=== PATIENT | female | born 1960 | race Two or more races ===

== ENCOUNTER 2016-07-18 | Inpatient (IN) | payer MEDICAID ==
[~2016-07-18] VITALS: Ht 160 cm; Wt 75.3 kg
--- NOTE | 2016-07-20 08:30 | NUR ---
Please see resident's previous account [id number] for all assessments and nurses notes. Originally admitted on 03/14/2014.
[2016-07-20] MEDS ORDERED: ALBUTEROL FS 2.5 MG/3 ML VIAL.NEB NEB SCH (09:09)
[2016-07-20] MEDS ORDERED: SERTRALINE HCL 25 MG TABLET GT SCH (09:09)
[2016-07-20] MEDS ORDERED: HYDROGEN PEROXIDE 480 ML BOTTLE TP PRN (09:09)
[2016-07-20] MEDS ORDERED: TUBERCULIN,PURIF.PROT.DERIV. 5 TU/0.1 ML VIAL ID SCH (09:09)
[2016-07-20] MEDS ORDERED: IPRATROPIUM NEB FS 0.5 MG/2.5 ML AMPUL.NEB IH PRN (09:09)
[2016-07-20] MEDS ORDERED: DEXTROSE 50%-WATER 50 ML DISP.SYRIN IV PRN (09:09)
[2016-07-20] MEDS ORDERED: INSULIN GLARGINE, 100 UNIT/ML CARTRIDGE SQ SCH (09:09)
[2016-07-20] MEDS ORDERED: IPRATROPIUM NEB FS 0.5 MG/2.5 ML AMPUL.NEB NEB SCH (09:09)
[2016-07-20] MEDS ORDERED: ALBUTEROL FS 2.5 MG/3 ML VIAL.NEB NEB PRN (09:09)
--- NOTE | 2016-07-20 11:11 | NUR ---
Please see resident's previous account [id number] for Social Service assessments, evaluations and notes.
[2016-07-20] MEDS: POLYVINYL ALCOHOL 15 ML BOTTLE EACHEYE SCH ×3 (12:00→23:55)
[2016-07-20 12:09] VITALS: BP 124/76
[2016-07-20] MEDS: FERROUS SULFATE - FOR SA ONLY 330 MG/7.5 ML UDC GT SCH ×2 (13:00→16:12)
[2016-07-20] MEDS: BACLOFEN 20MG TABLET GT SCH ×2 (13:00→16:09)
[2016-07-20] MEDS: ALBUTEROL FS 2.5 MG/3 ML VIAL.NEB NEB SCH ×2 (13:32→20:14)
[2016-07-20] MEDS: IPRATROPIUM NEB FS 0.5 MG/2.5 ML AMPUL.NEB NEB SCH ×2 (13:32→20:14)
[2016-07-20] MEDS: GLYTROL 1,000 ML BAG GT PRN (16:00)
[2016-07-20] MEDS: DOCUSATE SODIUM LIQ 100 MG/10 ML UDC GT SCH (16:11)
[2016-07-20] MEDS: GLYCOPYRROLATE 1 MG TABLET GT SCH (16:12)
[2016-07-20] MEDS: POTASSIUM CHLORIDE 20 MEQ/15 ML ML GT SCH (16:13)
[2016-07-20] MEDS: ASCORBIC ACID 500 MG TABLET GT SCH (16:14)
[2016-07-20] MEDS: BLOOD SUGAR DIAGNOSTIC 1 EACH STRIP IN SCH (18:10)
[2016-07-20] MEDS: INSULIN LISPRO/ASPART 100 UNIT/ML CARTRIDGE SQ PRN (18:11)
[2016-07-20 20:29] VITALS: BP 144/80
[2016-07-20] MEDS: LEVETIRACETAM SOL (5 ML) 100 MG/ML UDC GT SCH (21:26)
[2016-07-20] MEDS: HYDROGEN PEROXIDE 480 ML BOTTLE TP SCH (21:27)
[2016-07-20] MEDS: INSULIN GLARGINE, 100 UNIT/ML CARTRIDGE SQ SCH (21:27)
[2016-07-20] MEDS: SERTRALINE HCL 25 MG TABLET GT SCH (21:27)
[2016-07-20] MEDS: Z GUARD REMEDY 4 OZ OINT TP SCH (21:27)
[2016-07-21] MEDS: IPRATROPIUM NEB FS 0.5 MG/2.5 ML AMPUL.NEB NEB SCH ×4 (01:22→19:24)
[2016-07-21] MEDS: ALBUTEROL FS 2.5 MG/3 ML VIAL.NEB NEB SCH ×4 (01:22→19:24)
[2016-07-21] MEDS: ESOMEPRAZOLE MAG TRIHYDRATE 20 MG CAPSULE.DR GT SCH (06:19)
[2016-07-21] MEDS: POLYVINYL ALCOHOL 15 ML BOTTLE EACHEYE SCH ×4 (06:19→23:16)
[2016-07-21] MEDS: BLOOD SUGAR DIAGNOSTIC 1 EACH STRIP IN SCH ×2 (06:19→17:40)
[2016-07-21 08:15] VITALS: BP 111/62
[2016-07-21] MEDS: POTASSIUM CHLORIDE 20 MEQ/15 ML ML GT SCH ×2 (08:39→16:16)
[2016-07-21] MEDS: FERROUS SULFATE - FOR SA ONLY 330 MG/7.5 ML UDC GT SCH ×3 (08:39→16:16)
[2016-07-21] MEDS: GLYCOPYRROLATE 1 MG TABLET GT SCH ×2 (08:39→16:16)
[2016-07-21] MEDS: LEVETIRACETAM SOL (5 ML) 100 MG/ML UDC GT SCH ×2 (08:39→20:57)
[2016-07-21] MEDS: PYRIDOXINE 100 MG GT SCH (08:39)
[2016-07-21] MEDS: DOCUSATE SODIUM LIQ 100 MG/10 ML UDC GT SCH ×2 (08:39→16:16)
[2016-07-21] MEDS: BACLOFEN 20MG TABLET GT SCH ×3 (08:39→16:16)
[2016-07-21] MEDS: ISONIAZID (300 MG) 300 MG TABLET GT SCH (08:39)
[2016-07-21] MEDS: ASCORBIC ACID 500 MG TABLET GT SCH ×2 (08:39→16:17)
[2016-07-21] MEDS: MULTIVITAMINS,THERAGRAN 1 UDTAB TABLET GT SCH (08:39)
[2016-07-21] MEDS: Z GUARD REMEDY 4 OZ OINT TP SCH ×2 (08:40→20:57)
[2016-07-21] MEDS: HYDROGEN PEROXIDE 480 ML BOTTLE TP SCH ×2 (08:40→20:57)
[2016-07-21] MEDS: ACETAMINOPHEN 650 MG/20 ML UDC- FOR SA PATIENTS ONLY GT PRN (08:51)
[2016-07-21] MEDS: GLYTROL 1,000 ML BAG GT PRN (12:21)
[2016-07-21] MEDS: INSULIN LISPRO/ASPART 100 UNIT/ML CARTRIDGE SQ PRN (17:41)
[2016-07-21 20:09] VITALS: BP 117/84
[2016-07-21] MEDS: INSULIN GLARGINE, 100 UNIT/ML CARTRIDGE SQ SCH (20:58)
[2016-07-21] MEDS: SERTRALINE HCL 25 MG TABLET GT SCH (21:00)
[2016-07-22] MEDS: IPRATROPIUM NEB FS 0.5 MG/2.5 ML AMPUL.NEB NEB SCH ×4 (02:21→19:36)
[2016-07-22] MEDS: ALBUTEROL FS 2.5 MG/3 ML VIAL.NEB NEB SCH ×4 (02:21→19:36)
[2016-07-22] MEDS: GLYTROL 1,000 ML BAG GT PRN (03:24)
[2016-07-22] MEDS: ESOMEPRAZOLE MAG TRIHYDRATE 20 MG CAPSULE.DR GT SCH (05:14)
[2016-07-22] MEDS: BLOOD SUGAR DIAGNOSTIC 1 EACH STRIP IN SCH ×2 (05:14→17:24)
[2016-07-22] MEDS: POLYVINYL ALCOHOL 15 ML BOTTLE EACHEYE SCH ×3 (05:14→17:24)
[2016-07-22] MEDS: INSULIN LISPRO/ASPART 100 UNIT/ML CARTRIDGE SQ PRN (05:15)
[2016-07-22 07:54] VITALS: BP 115/65
[2016-07-22] MEDS: ISONIAZID (300 MG) 300 MG TABLET GT SCH (08:43)
[2016-07-22] MEDS: GLYCOPYRROLATE 1 MG TABLET GT SCH ×2 (08:43→16:41)
[2016-07-22] MEDS: DOCUSATE SODIUM LIQ 100 MG/10 ML UDC GT SCH ×2 (08:43→16:41)
[2016-07-22] MEDS: MULTIVITAMINS,THERAGRAN 1 UDTAB TABLET GT SCH (08:43)
[2016-07-22] MEDS: LEVETIRACETAM SOL (5 ML) 100 MG/ML UDC GT SCH ×2 (08:43→21:00)
[2016-07-22] MEDS: Z GUARD REMEDY 4 OZ OINT TP SCH ×2 (08:43→21:00)
[2016-07-22] MEDS: FERROUS SULFATE - FOR SA ONLY 330 MG/7.5 ML UDC GT SCH ×3 (08:43→16:41)
[2016-07-22] MEDS: HYDROGEN PEROXIDE 480 ML BOTTLE TP SCH ×2 (08:43→21:00)
[2016-07-22] MEDS: POTASSIUM CHLORIDE 20 MEQ/15 ML ML GT SCH ×2 (08:43→16:41)
[2016-07-22] MEDS: PYRIDOXINE 100 MG GT SCH (08:43)
[2016-07-22] MEDS: BACLOFEN 20MG TABLET GT SCH ×3 (08:43→16:41)
[2016-07-22] MEDS: ASCORBIC ACID 500 MG TABLET GT SCH ×2 (08:43→16:41)
--- NOTE | 2016-07-22 20:28 | NUR ---
Pt seen by Mya Rodgers ROLL MECHANIC,no new order.
[2016-07-22] MEDS: INSULIN GLARGINE, 100 UNIT/ML CARTRIDGE SQ SCH (21:00)
[2016-07-22] MEDS: SERTRALINE HCL 25 MG TABLET GT SCH (22:00)
[2016-07-23] MEDS: POLYVINYL ALCOHOL 15 ML BOTTLE EACHEYE SCH ×5 (00:24→23:36)
[2016-07-23] MEDS: GLYTROL 1,000 ML BAG GT PRN (00:25)
[2016-07-23] MEDS: IPRATROPIUM NEB FS 0.5 MG/2.5 ML AMPUL.NEB NEB SCH ×4 (01:35→19:15)
[2016-07-23] MEDS: ALBUTEROL FS 2.5 MG/3 ML VIAL.NEB NEB SCH ×4 (01:35→19:15)
[2016-07-23] MEDS: BLOOD SUGAR DIAGNOSTIC 1 EACH STRIP IN SCH ×2 (05:12→17:26)
[2016-07-23] MEDS: INSULIN LISPRO/ASPART 100 UNIT/ML CARTRIDGE SQ PRN (05:12)
[2016-07-23] MEDS: ESOMEPRAZOLE MAG TRIHYDRATE 20 MG CAPSULE.DR GT SCH (05:12)
[2016-07-23 07:48] VITALS: BP 122/73
[2016-07-23] MEDS: BACLOFEN 20MG TABLET GT SCH ×3 (08:33→17:23)
[2016-07-23] MEDS: PYRIDOXINE 100 MG GT SCH (08:33)
[2016-07-23] MEDS: Z GUARD REMEDY 4 OZ OINT TP SCH ×2 (08:33→21:00)
[2016-07-23] MEDS: ISONIAZID (300 MG) 300 MG TABLET GT SCH (08:33)
[2016-07-23] MEDS: POTASSIUM CHLORIDE 20 MEQ/15 ML ML GT SCH ×2 (08:33→17:25)
[2016-07-23] MEDS: LEVETIRACETAM SOL (5 ML) 100 MG/ML UDC GT SCH ×2 (08:33→21:00)
[2016-07-23] MEDS: HYDROGEN PEROXIDE 480 ML BOTTLE TP SCH ×2 (08:33→21:00)
[2016-07-23] MEDS: DOCUSATE SODIUM LIQ 100 MG/10 ML UDC GT SCH ×2 (08:33→17:25)
[2016-07-23] MEDS: MULTIVITAMINS,THERAGRAN 1 UDTAB TABLET GT SCH (08:33)
[2016-07-23] MEDS: GLYCOPYRROLATE 1 MG TABLET GT SCH ×2 (08:33→17:25)
[2016-07-23] MEDS: ASCORBIC ACID 500 MG TABLET GT SCH ×2 (08:33→17:25)
[2016-07-23] MEDS: FERROUS SULFATE - FOR SA ONLY 330 MG/7.5 ML UDC GT SCH ×3 (08:33→17:25)
[2016-07-23] MEDS: ACETAMINOPHEN 650 MG/20 ML UDC- FOR SA PATIENTS ONLY GT PRN ×2 (11:18→17:58)
[2016-07-23 19:40] VITALS: BP 126/72
[2016-07-23] MEDS: INSULIN GLARGINE, 100 UNIT/ML CARTRIDGE SQ SCH (21:00)
[2016-07-23] MEDS: SERTRALINE HCL 25 MG TABLET GT SCH (22:49)
[2016-07-24] MEDS: GLYTROL 1,000 ML BAG GT PRN (00:03)
[2016-07-24] MEDS: IPRATROPIUM NEB FS 0.5 MG/2.5 ML AMPUL.NEB NEB SCH ×4 (02:21→19:16)
[2016-07-24] MEDS: ALBUTEROL FS 2.5 MG/3 ML VIAL.NEB NEB SCH ×4 (02:22→19:16)
[2016-07-24] MEDS: BLOOD SUGAR DIAGNOSTIC 1 EACH STRIP IN SCH ×2 (05:42→17:48)
[2016-07-24] MEDS: POLYVINYL ALCOHOL 15 ML BOTTLE EACHEYE SCH ×4 (05:42→23:57)
[2016-07-24] MEDS: ESOMEPRAZOLE MAG TRIHYDRATE 20 MG CAPSULE.DR GT SCH (05:42)
[2016-07-24] MEDS: INSULIN LISPRO/ASPART 100 UNIT/ML CARTRIDGE SQ PRN (05:43)
[2016-07-24 07:52] VITALS: BP 123/71
[2016-07-24] MEDS: LEVETIRACETAM SOL (5 ML) 100 MG/ML UDC GT SCH ×2 (08:29→21:18)
[2016-07-24] MEDS: POTASSIUM CHLORIDE 20 MEQ/15 ML ML GT SCH ×2 (08:29→17:33)
[2016-07-24] MEDS: GLYCOPYRROLATE 1 MG TABLET GT SCH ×2 (08:29→17:33)
[2016-07-24] MEDS: DOCUSATE SODIUM LIQ 100 MG/10 ML UDC GT SCH ×2 (08:29→17:33)
[2016-07-24] MEDS: MULTIVITAMINS,THERAGRAN 1 UDTAB TABLET GT SCH (08:29)
[2016-07-24] MEDS: FERROUS SULFATE - FOR SA ONLY 330 MG/7.5 ML UDC GT SCH ×3 (08:29→17:33)
[2016-07-24] MEDS: BACLOFEN 20MG TABLET GT SCH ×3 (08:29→17:33)
[2016-07-24] MEDS: ISONIAZID (300 MG) 300 MG TABLET GT SCH (08:29)
[2016-07-24] MEDS: PYRIDOXINE 100 MG GT SCH (08:29)
[2016-07-24] MEDS: ASCORBIC ACID 500 MG TABLET GT SCH ×2 (08:29→17:33)
[2016-07-24] MEDS: HYDROGEN PEROXIDE 480 ML BOTTLE TP SCH ×2 (09:00→21:19)
[2016-07-24] MEDS: Z GUARD REMEDY 4 OZ OINT TP SCH ×2 (09:00→21:19)
[2016-07-24 19:47] VITALS: BP 110/79
[2016-07-24] MEDS: SERTRALINE HCL 25 MG TABLET GT SCH (21:19)
[2016-07-24] MEDS: INSULIN GLARGINE, 100 UNIT/ML CARTRIDGE SQ SCH (21:19)
[2016-07-25] MEDS: ALBUTEROL FS 2.5 MG/3 ML VIAL.NEB NEB SCH ×4 (02:07→20:05)
[2016-07-25] MEDS: IPRATROPIUM NEB FS 0.5 MG/2.5 ML AMPUL.NEB NEB SCH ×4 (02:07→20:05)
[2016-07-25] MEDS: BLOOD SUGAR DIAGNOSTIC 1 EACH STRIP IN SCH ×2 (05:25→17:43)
[2016-07-25] MEDS: POLYVINYL ALCOHOL 15 ML BOTTLE EACHEYE SCH ×3 (05:25→17:43)
[2016-07-25] MEDS: INSULIN LISPRO/ASPART 100 UNIT/ML CARTRIDGE SQ PRN ×2 (05:25→17:43)
[2016-07-25] MEDS: ESOMEPRAZOLE MAG TRIHYDRATE 20 MG CAPSULE.DR GT SCH (05:25)
[2016-07-25 08:10] VITALS: BP 107/69
[2016-07-25] MEDS: BACLOFEN 20MG TABLET GT SCH ×3 (08:36→17:37)
[2016-07-25] MEDS: DOCUSATE SODIUM LIQ 100 MG/10 ML UDC GT SCH ×2 (08:37→17:37)
[2016-07-25] MEDS: FERROUS SULFATE - FOR SA ONLY 330 MG/7.5 ML UDC GT SCH ×3 (08:38→17:40)
[2016-07-25] MEDS: GLYCOPYRROLATE 1 MG TABLET GT SCH ×2 (08:38→17:40)
[2016-07-25] MEDS: ISONIAZID (300 MG) 300 MG TABLET GT SCH (08:38)
[2016-07-25] MEDS: LEVETIRACETAM SOL (5 ML) 100 MG/ML UDC GT SCH ×2 (08:38→21:22)
[2016-07-25] MEDS: MULTIVITAMINS,THERAGRAN 1 UDTAB TABLET GT SCH (08:39)
[2016-07-25] MEDS: ASCORBIC ACID 500 MG TABLET GT SCH ×2 (08:39→17:42)
[2016-07-25] MEDS: POTASSIUM CHLORIDE 20 MEQ/15 ML ML GT SCH ×2 (08:39→17:42)
[2016-07-25] MEDS: PYRIDOXINE 100 MG GT SCH (08:42)
[2016-07-25] MEDS: HYDROGEN PEROXIDE 480 ML BOTTLE TP SCH ×2 (09:00→21:23)
[2016-07-25] MEDS: Z GUARD REMEDY 4 OZ OINT TP SCH ×2 (09:00→21:23)
[2016-07-25] MEDS: GLYTROL 1,000 ML BAG GT PRN (13:29)
[2016-07-25 19:52] VITALS: BP 109/77
[2016-07-25] MEDS: INSULIN GLARGINE, 100 UNIT/ML CARTRIDGE SQ SCH (21:23)
[2016-07-25] MEDS: SERTRALINE HCL 25 MG TABLET GT SCH (21:23)
[2016-07-26] MEDS: POLYVINYL ALCOHOL 15 ML BOTTLE EACHEYE SCH ×5 (00:08→23:17)
[2016-07-26] MEDS: IPRATROPIUM NEB FS 0.5 MG/2.5 ML AMPUL.NEB NEB SCH ×4 (02:20→19:30)
[2016-07-26] MEDS: ALBUTEROL FS 2.5 MG/3 ML VIAL.NEB NEB SCH ×4 (02:20→19:30)
[2016-07-26] MEDS: ESOMEPRAZOLE MAG TRIHYDRATE 20 MG CAPSULE.DR GT SCH (06:04)
[2016-07-26] MEDS: BLOOD SUGAR DIAGNOSTIC 1 EACH STRIP IN SCH ×2 (06:27→17:13)
[2016-07-26] MEDS: GLYTROL 1,000 ML BAG GT PRN (06:36)
[2016-07-26 08:04] VITALS: BP 115/87
[2016-07-26] MEDS: BACLOFEN 20MG TABLET GT SCH ×3 (08:35→16:59)
[2016-07-26] MEDS: PYRIDOXINE 100 MG GT SCH (08:36)
[2016-07-26] MEDS: GLYCOPYRROLATE 1 MG TABLET GT SCH ×2 (08:36→16:59)
[2016-07-26] MEDS: ISONIAZID (300 MG) 300 MG TABLET GT SCH (08:36)
[2016-07-26] MEDS: FERROUS SULFATE - FOR SA ONLY 330 MG/7.5 ML UDC GT SCH ×3 (08:36→16:59)
[2016-07-26] MEDS: POTASSIUM CHLORIDE 20 MEQ/15 ML ML GT SCH ×2 (08:36→16:59)
[2016-07-26] MEDS: DOCUSATE SODIUM LIQ 100 MG/10 ML UDC GT SCH ×2 (08:36→16:59)
[2016-07-26] MEDS: ASCORBIC ACID 500 MG TABLET GT SCH ×2 (08:36→16:59)
[2016-07-26] MEDS: MULTIVITAMINS,THERAGRAN 1 UDTAB TABLET GT SCH (08:36)
[2016-07-26] MEDS: LEVETIRACETAM SOL (5 ML) 100 MG/ML UDC GT SCH ×2 (08:36→21:20)
[2016-07-26] MEDS: Z GUARD REMEDY 4 OZ OINT TP SCH ×2 (10:45→21:21)
[2016-07-26] MEDS: HYDROGEN PEROXIDE 480 ML BOTTLE TP SCH ×2 (10:45→21:20)
[2016-07-26] MEDS: INSULIN LISPRO/ASPART 100 UNIT/ML CARTRIDGE SQ PRN (17:36)
--- NOTE | 2016-07-26 18:51 | NUR ---
Head circumference measured - 57.5cm.
[2016-07-26 20:46] VITALS: BP 121/76
[2016-07-26] MEDS: INSULIN GLARGINE, 100 UNIT/ML CARTRIDGE SQ SCH (21:20)
[2016-07-26] MEDS: SERTRALINE HCL 25 MG TABLET GT SCH (21:21)
[2016-07-27] MEDS: IPRATROPIUM NEB FS 0.5 MG/2.5 ML AMPUL.NEB NEB SCH ×4 (00:31→19:30)
[2016-07-27] MEDS: ALBUTEROL FS 2.5 MG/3 ML VIAL.NEB NEB SCH ×4 (00:31→19:30)
[2016-07-27] MEDS: POLYVINYL ALCOHOL 15 ML BOTTLE EACHEYE SCH ×4 (05:24→23:53)
[2016-07-27] MEDS: ESOMEPRAZOLE MAG TRIHYDRATE 20 MG CAPSULE.DR GT SCH (05:24)
[2016-07-27] MEDS: BLOOD SUGAR DIAGNOSTIC 1 EACH STRIP IN SCH ×2 (06:01→17:43)
[2016-07-27 07:45] VITALS: BP 129/81
[2016-07-27] MEDS: MULTIVITAMINS,THERAGRAN 1 UDTAB TABLET GT SCH (08:36)
[2016-07-27] MEDS: PYRIDOXINE 100 MG GT SCH (08:36)
[2016-07-27] MEDS: ASCORBIC ACID 500 MG TABLET GT SCH ×2 (08:36→16:49)
[2016-07-27] MEDS: FERROUS SULFATE - FOR SA ONLY 330 MG/7.5 ML UDC GT SCH ×3 (08:36→16:49)
[2016-07-27] MEDS: POTASSIUM CHLORIDE 20 MEQ/15 ML ML GT SCH ×2 (08:36→16:49)
[2016-07-27] MEDS: LEVETIRACETAM SOL (5 ML) 100 MG/ML UDC GT SCH ×2 (08:36→20:46)
[2016-07-27] MEDS: DOCUSATE SODIUM LIQ 100 MG/10 ML UDC GT SCH ×2 (08:36→16:49)
[2016-07-27] MEDS: ISONIAZID (300 MG) 300 MG TABLET GT SCH (08:36)
[2016-07-27] MEDS: BACLOFEN 20MG TABLET GT SCH ×3 (08:36→16:49)
[2016-07-27] MEDS: GLYCOPYRROLATE 1 MG TABLET GT SCH ×2 (08:36→16:49)
[2016-07-27] MEDS: HYDROGEN PEROXIDE 480 ML BOTTLE TP SCH ×2 (11:30→20:47)
[2016-07-27] MEDS: Z GUARD REMEDY 4 OZ OINT TP SCH ×2 (11:30→20:47)
[2016-07-27 20:10] VITALS: BP 130/75
[2016-07-27] MEDS: INSULIN GLARGINE, 100 UNIT/ML CARTRIDGE SQ SCH (20:47)
[2016-07-27] MEDS: SERTRALINE HCL 25 MG TABLET GT SCH (22:20)
[2016-07-27] MEDS: GLYTROL 1,000 ML BAG GT PRN (22:24)
[2016-07-28] MEDS: IPRATROPIUM NEB FS 0.5 MG/2.5 ML AMPUL.NEB NEB SCH ×4 (02:20→20:25)
[2016-07-28] MEDS: ALBUTEROL FS 2.5 MG/3 ML VIAL.NEB NEB SCH ×4 (02:20→20:25)
[2016-07-28] MEDS: ESOMEPRAZOLE MAG TRIHYDRATE 20 MG CAPSULE.DR GT SCH (05:24)
[2016-07-28] MEDS: POLYVINYL ALCOHOL 15 ML BOTTLE EACHEYE SCH ×4 (05:24→23:19)
[2016-07-28] MEDS: BLOOD SUGAR DIAGNOSTIC 1 EACH STRIP IN SCH ×2 (06:05→17:07)
[2016-07-28 07:41] VITALS: BP 108/68
--- NOTE | 2016-07-28 09:08 | NUR ---
Resident was seen by Caitlyn for a haircut.
[2016-07-28] MEDS: POTASSIUM CHLORIDE 20 MEQ/15 ML ML GT SCH ×2 (09:15→17:07)
[2016-07-28] MEDS: DOCUSATE SODIUM LIQ 100 MG/10 ML UDC GT SCH ×2 (09:15→17:07)
[2016-07-28] MEDS: FERROUS SULFATE - FOR SA ONLY 330 MG/7.5 ML UDC GT SCH ×3 (09:15→17:07)
[2016-07-28] MEDS: PYRIDOXINE 100 MG GT SCH (09:15)
[2016-07-28] MEDS: LEVETIRACETAM SOL (5 ML) 100 MG/ML UDC GT SCH ×2 (09:15→21:11)
[2016-07-28] MEDS: GLYCOPYRROLATE 1 MG TABLET GT SCH ×2 (09:15→17:07)
[2016-07-28] MEDS: ISONIAZID (300 MG) 300 MG TABLET GT SCH (09:15)
[2016-07-28] MEDS: BACLOFEN 20MG TABLET GT SCH ×3 (09:15→17:07)
[2016-07-28] MEDS: MULTIVITAMINS,THERAGRAN 1 UDTAB TABLET GT SCH (09:15)
[2016-07-28] MEDS: HYDROGEN PEROXIDE 480 ML BOTTLE TP SCH ×2 (09:17→21:12)
[2016-07-28] MEDS: ASCORBIC ACID 500 MG TABLET GT SCH ×2 (09:17→17:07)
[2016-07-28] MEDS: ACETAMINOPHEN 650 MG/20 ML UDC- FOR SA PATIENTS ONLY GT PRN (09:17)
[2016-07-28] MEDS: Z GUARD REMEDY 4 OZ OINT TP SCH ×2 (09:17→21:12)
--- NOTE | 2016-07-28 14:00 | NUR ---
Seen and examined by Mya Rodgers NP, no new order given.
[2016-07-28] MEDS: GLYTROL 1,000 ML BAG GT PRN (17:07)
[2016-07-28] MEDS: INSULIN LISPRO/ASPART 100 UNIT/ML CARTRIDGE SQ PRN (17:53)
[2016-07-28 19:57] VITALS: BP 117/66
[2016-07-28] MEDS: INSULIN GLARGINE, 100 UNIT/ML CARTRIDGE SQ SCH (21:12)
[2016-07-28] MEDS: SERTRALINE HCL 25 MG TABLET GT SCH (21:12)
[2016-07-29] MEDS: ALBUTEROL FS 2.5 MG/3 ML VIAL.NEB NEB SCH ×4 (01:07→19:26)
[2016-07-29] MEDS: IPRATROPIUM NEB FS 0.5 MG/2.5 ML AMPUL.NEB NEB SCH ×4 (01:07→19:26)
[2016-07-29] MEDS: ESOMEPRAZOLE MAG TRIHYDRATE 20 MG CAPSULE.DR GT SCH (05:49)
[2016-07-29] MEDS: BLOOD SUGAR DIAGNOSTIC 1 EACH STRIP IN SCH ×2 (05:49→17:20)
[2016-07-29] MEDS: POLYVINYL ALCOHOL 15 ML BOTTLE EACHEYE SCH ×4 (05:49→23:26)
[2016-07-29 07:40] VITALS: BP 126/81
[2016-07-29] MEDS: BACLOFEN 20MG TABLET GT SCH ×3 (08:04→16:26)
[2016-07-29] MEDS: FERROUS SULFATE - FOR SA ONLY 330 MG/7.5 ML UDC GT SCH ×3 (08:04→16:26)
[2016-07-29] MEDS: DOCUSATE SODIUM LIQ 100 MG/10 ML UDC GT SCH ×2 (08:04→16:26)
[2016-07-29] MEDS: GLYCOPYRROLATE 1 MG TABLET GT SCH ×2 (08:04→16:26)
[2016-07-29] MEDS: PYRIDOXINE 100 MG GT SCH (08:07)
[2016-07-29] MEDS: ISONIAZID (300 MG) 300 MG TABLET GT SCH (08:07)
[2016-07-29] MEDS: MULTIVITAMINS,THERAGRAN 1 UDTAB TABLET GT SCH (08:08)
[2016-07-29] MEDS: HYDROGEN PEROXIDE 480 ML BOTTLE TP SCH ×2 (08:08→21:00)
[2016-07-29] MEDS: LEVETIRACETAM SOL (5 ML) 100 MG/ML UDC GT SCH ×2 (08:08→21:00)
[2016-07-29] MEDS: Z GUARD REMEDY 4 OZ OINT TP SCH ×2 (08:08→21:00)
[2016-07-29] MEDS: POTASSIUM CHLORIDE 20 MEQ/15 ML ML GT SCH ×2 (08:08→16:26)
[2016-07-29] MEDS: ASCORBIC ACID 500 MG TABLET GT SCH ×2 (08:08→16:26)
[2016-07-29] MEDS: GLYTROL 1,000 ML BAG GT PRN (11:20)
[2016-07-29] MEDS: INSULIN LISPRO/ASPART 100 UNIT/ML CARTRIDGE SQ PRN (17:23)
[2016-07-29] MEDS: INSULIN GLARGINE, 100 UNIT/ML CARTRIDGE SQ SCH (21:00)
[2016-07-29 21:15] VITALS: BP 106/80
[2016-07-29] MEDS: SERTRALINE HCL 25 MG TABLET GT SCH (22:00)
[2016-07-30] MEDS: ALBUTEROL FS 2.5 MG/3 ML VIAL.NEB NEB SCH ×4 (00:57→19:30)
[2016-07-30] MEDS: IPRATROPIUM NEB FS 0.5 MG/2.5 ML AMPUL.NEB NEB SCH ×4 (00:57→19:30)
[2016-07-30] MEDS: BLOOD SUGAR DIAGNOSTIC 1 EACH STRIP IN SCH ×2 (05:33→17:10)
[2016-07-30] MEDS: INSULIN LISPRO/ASPART 100 UNIT/ML CARTRIDGE SQ PRN ×2 (05:33→17:11)
[2016-07-30] MEDS: ESOMEPRAZOLE MAG TRIHYDRATE 20 MG CAPSULE.DR GT SCH (05:33)
[2016-07-30] MEDS: POLYVINYL ALCOHOL 15 ML BOTTLE EACHEYE SCH ×4 (05:33→23:17)
[2016-07-30] MEDS: GLYTROL 1,000 ML BAG GT PRN ×2 (06:45→23:17)
[2016-07-30 07:29] VITALS: BP 120/82
[2016-07-30] MEDS: BACLOFEN 20MG TABLET GT SCH ×3 (08:22→16:59)
[2016-07-30] MEDS: Z GUARD REMEDY 4 OZ OINT TP SCH ×2 (08:22→21:17)
[2016-07-30] MEDS: ISONIAZID (300 MG) 300 MG TABLET GT SCH (08:22)
[2016-07-30] MEDS: MULTIVITAMINS,THERAGRAN 1 UDTAB TABLET GT SCH (08:22)
[2016-07-30] MEDS: GLYCOPYRROLATE 1 MG TABLET GT SCH ×2 (08:22→16:59)
[2016-07-30] MEDS: POTASSIUM CHLORIDE 20 MEQ/15 ML ML GT SCH ×2 (08:22→16:59)
[2016-07-30] MEDS: FERROUS SULFATE - FOR SA ONLY 330 MG/7.5 ML UDC GT SCH ×3 (08:22→16:59)
[2016-07-30] MEDS: ASCORBIC ACID 500 MG TABLET GT SCH ×2 (08:22→16:59)
[2016-07-30] MEDS: LEVETIRACETAM SOL (5 ML) 100 MG/ML UDC GT SCH ×2 (08:22→21:17)
[2016-07-30] MEDS: DOCUSATE SODIUM LIQ 100 MG/10 ML UDC GT SCH ×2 (08:22→16:59)
[2016-07-30] MEDS: PYRIDOXINE 100 MG GT SCH (08:22)
[2016-07-30] MEDS: HYDROGEN PEROXIDE 480 ML BOTTLE TP SCH ×2 (08:22→21:17)
[2016-07-30] MEDS: ACETAMINOPHEN 650 MG/20 ML UDC- FOR SA PATIENTS ONLY GT PRN (08:24)
--- NOTE | 2016-07-30 14:00 | NUR ---
INTERDISCIPLINARY TEAM CONFERENCE (IDT) was held today. Resident's sister unable to attend. Dr. Alvarez and the interdisciplinary team reviewed the current plan of care in detail. New orders were reviewed. No changes were noted and resident remains stable.
[2016-07-30 21:07] VITALS: BP 112/66
[2016-07-30] MEDS: INSULIN GLARGINE, 100 UNIT/ML CARTRIDGE SQ SCH (21:17)
[2016-07-30] MEDS: SERTRALINE HCL 25 MG TABLET GT SCH (21:17)
[2016-07-31] MEDS: IPRATROPIUM NEB FS 0.5 MG/2.5 ML AMPUL.NEB NEB SCH ×4 (02:00→19:08)
[2016-07-31] MEDS: ALBUTEROL FS 2.5 MG/3 ML VIAL.NEB NEB SCH ×4 (02:00→19:08)
[2016-07-31] MEDS: POLYVINYL ALCOHOL 15 ML BOTTLE EACHEYE SCH ×4 (05:27→23:24)
[2016-07-31] MEDS: ESOMEPRAZOLE MAG TRIHYDRATE 20 MG CAPSULE.DR GT SCH (05:27)
[2016-07-31] MEDS: BLOOD SUGAR DIAGNOSTIC 1 EACH STRIP IN SCH ×2 (05:27→17:19)
[2016-07-31] MEDS: INSULIN LISPRO/ASPART 100 UNIT/ML CARTRIDGE SQ PRN ×2 (05:28→17:19)
[2016-07-31 07:54] VITALS: BP 121/83
[2016-07-31] MEDS: BACLOFEN 20MG TABLET GT SCH ×3 (09:06→17:18)
[2016-07-31] MEDS: DOCUSATE SODIUM LIQ 100 MG/10 ML UDC GT SCH ×2 (09:06→17:18)
[2016-07-31] MEDS: FERROUS SULFATE - FOR SA ONLY 330 MG/7.5 ML UDC GT SCH ×3 (09:06→17:18)
[2016-07-31] MEDS: ASCORBIC ACID 500 MG TABLET GT SCH ×2 (09:07→17:19)
[2016-07-31] MEDS: HYDROGEN PEROXIDE 480 ML BOTTLE TP SCH ×2 (09:07→21:03)
[2016-07-31] MEDS: MULTIVITAMINS,THERAGRAN 1 UDTAB TABLET GT SCH (09:07)
[2016-07-31] MEDS: POTASSIUM CHLORIDE 20 MEQ/15 ML ML GT SCH ×2 (09:07→17:19)
[2016-07-31] MEDS: Z GUARD REMEDY 4 OZ OINT TP SCH ×2 (09:07→21:03)
[2016-07-31] MEDS: GLYCOPYRROLATE 1 MG TABLET GT SCH ×2 (09:07→17:19)
[2016-07-31] MEDS: ISONIAZID (300 MG) 300 MG TABLET GT SCH (09:07)
[2016-07-31] MEDS: LEVETIRACETAM SOL (5 ML) 100 MG/ML UDC GT SCH ×2 (09:07→21:02)
[2016-07-31] MEDS: PYRIDOXINE 100 MG GT SCH (09:07)
[2016-07-31] MEDS: ACETAMINOPHEN 650 MG/20 ML UDC- FOR SA PATIENTS ONLY GT PRN (09:08)
[2016-07-31] MEDS: GLYTROL 1,000 ML BAG GT PRN (17:20)
[2016-07-31 19:57] VITALS: BP 103/59
[2016-07-31] MEDS: INSULIN GLARGINE, 100 UNIT/ML CARTRIDGE SQ SCH (21:03)
[2016-07-31] MEDS: SERTRALINE HCL 25 MG TABLET GT SCH (21:03)
[2016-07-31] MEDS: POLYETHYLENE GLYCOL 3350 17 GM POWD.PACK GT PRN (21:04)
[2016-08-01] MEDS: ALBUTEROL FS 2.5 MG/3 ML VIAL.NEB NEB SCH ×4 (01:17→19:00)
[2016-08-01] MEDS: IPRATROPIUM NEB FS 0.5 MG/2.5 ML AMPUL.NEB NEB SCH ×4 (01:17→19:00)
[2016-08-01] MEDS: ESOMEPRAZOLE MAG TRIHYDRATE 20 MG CAPSULE.DR GT SCH (05:22)
[2016-08-01] MEDS: BLOOD SUGAR DIAGNOSTIC 1 EACH STRIP IN SCH ×2 (05:22→17:21)
[2016-08-01] MEDS: POLYVINYL ALCOHOL 15 ML BOTTLE EACHEYE SCH ×3 (05:22→17:20)
[2016-08-01] MEDS: INSULIN LISPRO/ASPART 100 UNIT/ML CARTRIDGE SQ PRN (05:22)
[2016-08-01 08:16] VITALS: BP 110/78
[2016-08-01] MEDS: POTASSIUM CHLORIDE 20 MEQ/15 ML ML GT SCH ×2 (09:31→17:20)
[2016-08-01] MEDS: BACLOFEN 20MG TABLET GT SCH ×3 (09:31→17:20)
[2016-08-01] MEDS: Z GUARD REMEDY 4 OZ OINT TP SCH ×2 (09:31→20:35)
[2016-08-01] MEDS: DOCUSATE SODIUM LIQ 100 MG/10 ML UDC GT SCH ×2 (09:31→17:20)
[2016-08-01] MEDS: HYDROGEN PEROXIDE 480 ML BOTTLE TP SCH ×2 (09:31→20:35)
[2016-08-01] MEDS: MULTIVITAMINS,THERAGRAN 1 UDTAB TABLET GT SCH (09:31)
[2016-08-01] MEDS: GLYCOPYRROLATE 1 MG TABLET GT SCH ×2 (09:31→17:20)
[2016-08-01] MEDS: FERROUS SULFATE - FOR SA ONLY 330 MG/7.5 ML UDC GT SCH ×3 (09:31→17:20)
[2016-08-01] MEDS: ISONIAZID (300 MG) 300 MG TABLET GT SCH (09:31)
[2016-08-01] MEDS: LEVETIRACETAM SOL (5 ML) 100 MG/ML UDC GT SCH ×2 (09:31→20:33)
[2016-08-01] MEDS: ASCORBIC ACID 500 MG TABLET GT SCH ×2 (09:31→17:20)
[2016-08-01] MEDS: PYRIDOXINE 100 MG GT SCH (09:31)
[2016-08-01 19:53] VITALS: BP 117/67
[2016-08-01] MEDS: INSULIN GLARGINE, 100 UNIT/ML CARTRIDGE SQ SCH (20:35)
[2016-08-01] MEDS: SERTRALINE HCL 25 MG TABLET GT SCH (21:01)
[2016-08-02] MEDS: ALBUTEROL FS 2.5 MG/3 ML VIAL.NEB NEB SCH ×4 (00:31→18:55)
[2016-08-02] MEDS: IPRATROPIUM NEB FS 0.5 MG/2.5 ML AMPUL.NEB NEB SCH ×4 (00:31→18:55)
[2016-08-02] MEDS: BLOOD SUGAR DIAGNOSTIC 1 EACH STRIP IN SCH ×2 (05:37→17:59)
[2016-08-02] MEDS: ESOMEPRAZOLE MAG TRIHYDRATE 20 MG CAPSULE.DR GT SCH (05:37)
[2016-08-02] MEDS: POLYVINYL ALCOHOL 15 ML BOTTLE EACHEYE SCH ×4 (05:37→17:59)
[2016-08-02] MEDS: INSULIN LISPRO/ASPART 100 UNIT/ML CARTRIDGE SQ PRN ×2 (05:38→05:44)
[2016-08-02] MEDS: GLYTROL 1,000 ML BAG GT PRN ×2 (05:46→21:38)
[2016-08-02 07:31] LABS: BILIRUBIN,TOTAL 0.1 mg/dL (0.2-1.0); TOTAL PROTEIN, SERUM 7.4 g/dL (6.4-8.2)
[2016-08-02 08:20] VITALS: BP 103/76
[2016-08-02] MEDS: BACLOFEN 20MG TABLET GT SCH ×3 (09:29→17:59)
[2016-08-02] MEDS: PYRIDOXINE 100 MG GT SCH (09:29)
[2016-08-02] MEDS: FERROUS SULFATE - FOR SA ONLY 330 MG/7.5 ML UDC GT SCH ×3 (09:29→17:59)
[2016-08-02] MEDS: GLYCOPYRROLATE 1 MG TABLET GT SCH ×2 (09:29→17:59)
[2016-08-02] MEDS: DOCUSATE SODIUM LIQ 100 MG/10 ML UDC GT SCH ×2 (09:29→17:59)
[2016-08-02] MEDS: POTASSIUM CHLORIDE 20 MEQ/15 ML ML GT SCH ×2 (09:30→17:59)
[2016-08-02] MEDS: ISONIAZID (300 MG) 300 MG TABLET GT SCH (09:30)
[2016-08-02] MEDS: MULTIVITAMINS,THERAGRAN 1 UDTAB TABLET GT SCH (09:30)
[2016-08-02] MEDS: Z GUARD REMEDY 4 OZ OINT TP SCH ×2 (09:30→20:16)
[2016-08-02] MEDS: LEVETIRACETAM SOL (5 ML) 100 MG/ML UDC GT SCH ×2 (09:30→20:15)
[2016-08-02] MEDS: ASCORBIC ACID 500 MG TABLET GT SCH ×2 (09:30→17:59)
[2016-08-02] MEDS: HYDROGEN PEROXIDE 480 ML BOTTLE TP SCH ×2 (09:30→20:16)
--- NOTE | 2016-08-02 10:00 | NUR ---
Seen by Dr. Alvarez. He is aware of pt's LFT result. No new order.
[2016-08-02 19:57] VITALS: BP 118/73
[2016-08-02] MEDS: INSULIN GLARGINE, 100 UNIT/ML CARTRIDGE SQ SCH (20:16)
[2016-08-02] MEDS: SERTRALINE HCL 25 MG TABLET GT SCH (21:38)
[2016-08-03] MEDS: POLYVINYL ALCOHOL 15 ML BOTTLE EACHEYE SCH ×5 (00:17→23:28)
[2016-08-03] MEDS: ALBUTEROL FS 2.5 MG/3 ML VIAL.NEB NEB SCH ×4 (01:05→19:55)
[2016-08-03] MEDS: IPRATROPIUM NEB FS 0.5 MG/2.5 ML AMPUL.NEB NEB SCH ×4 (01:05→19:55)
[2016-08-03] MEDS: ESOMEPRAZOLE MAG TRIHYDRATE 20 MG CAPSULE.DR GT SCH (05:10)
[2016-08-03] MEDS: BLOOD SUGAR DIAGNOSTIC 1 EACH STRIP IN SCH ×2 (06:01→17:22)
[2016-08-03 08:22] VITALS: BP 123/77
[2016-08-03] MEDS: ISONIAZID (300 MG) 300 MG TABLET GT SCH (08:44)
[2016-08-03] MEDS: DOCUSATE SODIUM LIQ 100 MG/10 ML UDC GT SCH ×2 (08:44→17:22)
[2016-08-03] MEDS: GLYCOPYRROLATE 1 MG TABLET GT SCH ×2 (08:44→17:22)
[2016-08-03] MEDS: POTASSIUM CHLORIDE 20 MEQ/15 ML ML GT SCH ×2 (08:44→17:22)
[2016-08-03] MEDS: PYRIDOXINE 100 MG GT SCH (08:44)
[2016-08-03] MEDS: BACLOFEN 20MG TABLET GT SCH ×3 (08:44→17:22)
[2016-08-03] MEDS: ASCORBIC ACID 500 MG TABLET GT SCH ×2 (08:44→17:22)
[2016-08-03] MEDS: FERROUS SULFATE - FOR SA ONLY 330 MG/7.5 ML UDC GT SCH ×3 (08:44→17:22)
[2016-08-03] MEDS: MULTIVITAMINS,THERAGRAN 1 UDTAB TABLET GT SCH (08:44)
[2016-08-03] MEDS: LEVETIRACETAM SOL (5 ML) 100 MG/ML UDC GT SCH ×2 (08:44→20:17)
[2016-08-03] MEDS: Z GUARD REMEDY 4 OZ OINT TP SCH ×2 (08:44→20:18)
[2016-08-03] MEDS: HYDROGEN PEROXIDE 480 ML BOTTLE TP SCH ×2 (08:44→20:18)
[2016-08-03] MEDS: ACETAMINOPHEN 650 MG/20 ML UDC- FOR SA PATIENTS ONLY GT PRN (13:29)
[2016-08-03 19:56] VITALS: BP 113/61
[2016-08-03] MEDS: INSULIN GLARGINE, 100 UNIT/ML CARTRIDGE SQ SCH (20:17)
[2016-08-03] MEDS: SERTRALINE HCL 25 MG TABLET GT SCH (22:23)
[2016-08-04] MEDS: ALBUTEROL FS 2.5 MG/3 ML VIAL.NEB NEB SCH ×4 (01:41→19:30)
[2016-08-04] MEDS: IPRATROPIUM NEB FS 0.5 MG/2.5 ML AMPUL.NEB NEB SCH ×4 (01:41→19:30)
[2016-08-04] MEDS: POLYVINYL ALCOHOL 15 ML BOTTLE EACHEYE SCH ×4 (05:19→23:34)
[2016-08-04] MEDS: ESOMEPRAZOLE MAG TRIHYDRATE 20 MG CAPSULE.DR GT SCH (05:19)
[2016-08-04] MEDS: BLOOD SUGAR DIAGNOSTIC 1 EACH STRIP IN SCH ×2 (06:02→17:05)
[2016-08-04] MEDS: DOCUSATE SODIUM LIQ 100 MG/10 ML UDC GT SCH ×2 (08:18→17:05)
[2016-08-04] MEDS: LEVETIRACETAM SOL (5 ML) 100 MG/ML UDC GT SCH ×2 (08:18→20:04)
[2016-08-04] MEDS: BACLOFEN 20MG TABLET GT SCH ×3 (08:18→17:05)
[2016-08-04] MEDS: ASCORBIC ACID 500 MG TABLET GT SCH ×2 (08:18→17:05)
[2016-08-04] MEDS: PYRIDOXINE 100 MG GT SCH (08:18)
[2016-08-04] MEDS: MULTIVITAMINS,THERAGRAN 1 UDTAB TABLET GT SCH (08:18)
[2016-08-04] MEDS: GLYCOPYRROLATE 1 MG TABLET GT SCH ×2 (08:18→17:05)
[2016-08-04] MEDS: HYDROGEN PEROXIDE 480 ML BOTTLE TP SCH ×2 (08:18→20:05)
[2016-08-04] MEDS: ISONIAZID (300 MG) 300 MG TABLET GT SCH (08:18)
[2016-08-04] MEDS: FERROUS SULFATE - FOR SA ONLY 330 MG/7.5 ML UDC GT SCH ×3 (08:18→17:05)
[2016-08-04] MEDS: POTASSIUM CHLORIDE 20 MEQ/15 ML ML GT SCH ×2 (08:18→17:05)
[2016-08-04] MEDS: Z GUARD REMEDY 4 OZ OINT TP SCH ×2 (08:19→20:05)
[2016-08-04 08:23] VITALS: BP 134/74
[2016-08-04 19:47] VITALS: BP 117/55
[2016-08-04] MEDS: INSULIN GLARGINE, 100 UNIT/ML CARTRIDGE SQ SCH (20:05)
[2016-08-04] MEDS: SERTRALINE HCL 25 MG TABLET GT SCH (21:57)
[2016-08-05] MEDS: IPRATROPIUM NEB FS 0.5 MG/2.5 ML AMPUL.NEB NEB SCH ×4 (01:44→19:20)
[2016-08-05] MEDS: ALBUTEROL FS 2.5 MG/3 ML VIAL.NEB NEB SCH ×4 (01:44→19:20)
[2016-08-05] MEDS: ESOMEPRAZOLE MAG TRIHYDRATE 20 MG CAPSULE.DR GT SCH (05:29)
[2016-08-05] MEDS: POLYVINYL ALCOHOL 15 ML BOTTLE EACHEYE SCH ×3 (05:29→17:46)
[2016-08-05] MEDS: BLOOD SUGAR DIAGNOSTIC 1 EACH STRIP IN SCH ×2 (06:07→17:46)
[2016-08-05 07:34] VITALS: BP 129/78
[2016-08-05] MEDS: MULTIVITAMINS,THERAGRAN 1 UDTAB TABLET GT SCH (08:57)
[2016-08-05] MEDS: FERROUS SULFATE - FOR SA ONLY 330 MG/7.5 ML UDC GT SCH ×3 (08:57→17:46)
[2016-08-05] MEDS: PYRIDOXINE 100 MG GT SCH (08:57)
[2016-08-05] MEDS: GLYCOPYRROLATE 1 MG TABLET GT SCH ×2 (08:57→17:46)
[2016-08-05] MEDS: ASCORBIC ACID 500 MG TABLET GT SCH ×2 (08:57→17:46)
[2016-08-05] MEDS: ISONIAZID (300 MG) 300 MG TABLET GT SCH (08:57)
[2016-08-05] MEDS: LEVETIRACETAM SOL (5 ML) 100 MG/ML UDC GT SCH ×2 (08:57→21:01)
[2016-08-05] MEDS: DOCUSATE SODIUM LIQ 100 MG/10 ML UDC GT SCH ×2 (08:57→17:46)
[2016-08-05] MEDS: HYDROGEN PEROXIDE 480 ML BOTTLE TP SCH ×2 (08:57→21:02)
[2016-08-05] MEDS: POTASSIUM CHLORIDE 20 MEQ/15 ML ML GT SCH ×2 (08:57→17:46)
[2016-08-05] MEDS: BACLOFEN 20MG TABLET GT SCH ×3 (08:57→17:46)
[2016-08-05] MEDS: Z GUARD REMEDY 4 OZ OINT TP SCH ×2 (08:57→21:02)
--- NOTE | 2016-08-05 13:46 | NUR ---
Seen and examined by Mya Rodgers NP, no new order given at this time.
[2016-08-05 20:06] VITALS: BP 103/69
[2016-08-05] MEDS: SERTRALINE HCL 25 MG TABLET GT SCH (21:02)
[2016-08-05] MEDS: INSULIN GLARGINE, 100 UNIT/ML CARTRIDGE SQ SCH (21:02)
[2016-08-06] MEDS: POLYVINYL ALCOHOL 15 ML BOTTLE EACHEYE SCH ×4 (00:56→17:17)
[2016-08-06] MEDS: IPRATROPIUM NEB FS 0.5 MG/2.5 ML AMPUL.NEB NEB SCH ×4 (00:56→19:34)
[2016-08-06] MEDS: GLYTROL 1,000 ML BAG GT PRN (00:57)
[2016-08-06] MEDS: ALBUTEROL FS 2.5 MG/3 ML VIAL.NEB NEB SCH ×4 (00:57→19:34)
[2016-08-06] MEDS: INSULIN LISPRO/ASPART 100 UNIT/ML CARTRIDGE SQ PRN (05:41)
[2016-08-06] MEDS: BLOOD SUGAR DIAGNOSTIC 1 EACH STRIP IN SCH ×2 (05:41→17:29)
[2016-08-06] MEDS: ESOMEPRAZOLE MAG TRIHYDRATE 20 MG CAPSULE.DR GT SCH (05:41)
[2016-08-06 07:33] VITALS: BP 114/73
[2016-08-06] MEDS: GLYCOPYRROLATE 1 MG TABLET GT SCH ×2 (08:44→17:17)
[2016-08-06] MEDS: HYDROGEN PEROXIDE 480 ML BOTTLE TP SCH ×2 (08:44→21:00)
[2016-08-06] MEDS: MULTIVITAMINS,THERAGRAN 1 UDTAB TABLET GT SCH (08:44)
[2016-08-06] MEDS: LEVETIRACETAM SOL (5 ML) 100 MG/ML UDC GT SCH ×2 (08:44→21:00)
[2016-08-06] MEDS: ISONIAZID (300 MG) 300 MG TABLET GT SCH (08:44)
[2016-08-06] MEDS: POTASSIUM CHLORIDE 20 MEQ/15 ML ML GT SCH ×2 (08:44→17:17)
[2016-08-06] MEDS: Z GUARD REMEDY 4 OZ OINT TP SCH ×2 (08:44→21:00)
[2016-08-06] MEDS: PYRIDOXINE 100 MG GT SCH (08:44)
[2016-08-06] MEDS: FERROUS SULFATE - FOR SA ONLY 330 MG/7.5 ML UDC GT SCH ×3 (08:44→17:17)
[2016-08-06] MEDS: BACLOFEN 20MG TABLET GT SCH ×3 (08:44→17:17)
[2016-08-06] MEDS: DOCUSATE SODIUM LIQ 100 MG/10 ML UDC GT SCH ×2 (08:44→17:17)
[2016-08-06] MEDS: ASCORBIC ACID 500 MG TABLET GT SCH ×2 (08:44→17:17)
[2016-08-06 19:46] VITALS: BP 112/75
[2016-08-06] MEDS: INSULIN GLARGINE, 100 UNIT/ML CARTRIDGE SQ SCH (21:48)
[2016-08-06] MEDS: SERTRALINE HCL 25 MG TABLET GT SCH (22:09)
[2016-08-07] MEDS: POLYVINYL ALCOHOL 15 ML BOTTLE EACHEYE SCH ×5 (00:36→23:28)
[2016-08-07] MEDS: GLYTROL 1,000 ML BAG GT PRN ×2 (00:37→16:23)
[2016-08-07] MEDS: IPRATROPIUM NEB FS 0.5 MG/2.5 ML AMPUL.NEB NEB SCH ×4 (00:50→19:45)
[2016-08-07] MEDS: ALBUTEROL FS 2.5 MG/3 ML VIAL.NEB NEB SCH ×4 (00:50→19:45)
[2016-08-07] MEDS: BLOOD SUGAR DIAGNOSTIC 1 EACH STRIP IN SCH ×2 (05:20→17:48)
[2016-08-07] MEDS: ESOMEPRAZOLE MAG TRIHYDRATE 20 MG CAPSULE.DR GT SCH (05:20)
[2016-08-07] MEDS: INSULIN LISPRO/ASPART 100 UNIT/ML CARTRIDGE SQ PRN ×2 (05:21→17:48)
[2016-08-07 07:49] VITALS: BP 121/78
[2016-08-07] MEDS: ASCORBIC ACID 500 MG TABLET GT SCH ×2 (09:06→16:19)
[2016-08-07] MEDS: BACLOFEN 20MG TABLET GT SCH ×3 (09:06→16:17)
[2016-08-07] MEDS: POTASSIUM CHLORIDE 20 MEQ/15 ML ML GT SCH ×2 (09:06→16:19)
[2016-08-07] MEDS: FERROUS SULFATE - FOR SA ONLY 330 MG/7.5 ML UDC GT SCH ×3 (09:06→16:18)
[2016-08-07] MEDS: ISONIAZID (300 MG) 300 MG TABLET GT SCH (09:06)
[2016-08-07] MEDS: GLYCOPYRROLATE 1 MG TABLET GT SCH ×2 (09:06→16:19)
[2016-08-07] MEDS: DOCUSATE SODIUM LIQ 100 MG/10 ML UDC GT SCH ×2 (09:06→16:17)
[2016-08-07] MEDS: MULTIVITAMINS,THERAGRAN 1 UDTAB TABLET GT SCH (09:06)
[2016-08-07] MEDS: LEVETIRACETAM SOL (5 ML) 100 MG/ML UDC GT SCH ×2 (09:06→20:37)
[2016-08-07] MEDS: PYRIDOXINE 100 MG GT SCH (09:06)
[2016-08-07] MEDS: Z GUARD REMEDY 4 OZ OINT TP SCH ×2 (10:15→20:37)
[2016-08-07] MEDS: HYDROGEN PEROXIDE 480 ML BOTTLE TP SCH ×2 (10:15→20:37)
[2016-08-07 20:06] VITALS: BP 136/76
[2016-08-07] MEDS: INSULIN GLARGINE, 100 UNIT/ML CARTRIDGE SQ SCH (20:37)
[2016-08-07] MEDS: SERTRALINE HCL 25 MG TABLET GT SCH (22:00)
[2016-08-08] MEDS: ALBUTEROL FS 2.5 MG/3 ML VIAL.NEB NEB SCH ×4 (02:10→20:26)
[2016-08-08] MEDS: IPRATROPIUM NEB FS 0.5 MG/2.5 ML AMPUL.NEB NEB SCH ×4 (02:10→20:26)
[2016-08-08] MEDS: POLYVINYL ALCOHOL 15 ML BOTTLE EACHEYE SCH ×4 (05:22→23:44)
[2016-08-08] MEDS: ESOMEPRAZOLE MAG TRIHYDRATE 20 MG CAPSULE.DR GT SCH (05:23)
[2016-08-08] MEDS: BLOOD SUGAR DIAGNOSTIC 1 EACH STRIP IN SCH ×2 (05:23→17:53)
[2016-08-08] MEDS: INSULIN LISPRO/ASPART 100 UNIT/ML CARTRIDGE SQ PRN ×2 (05:23→17:54)
[2016-08-08] MEDS: BISACODYL SUPP (10 MG) 10 MG/SUPP.RECT SUPP.RECT RC PRN (06:39)
[2016-08-08 07:33] VITALS: BP 121/91
[2016-08-08] MEDS: PYRIDOXINE 100 MG GT SCH (09:30)
[2016-08-08] MEDS: FERROUS SULFATE - FOR SA ONLY 330 MG/7.5 ML UDC GT SCH ×3 (09:30→17:17)
[2016-08-08] MEDS: BACLOFEN 20MG TABLET GT SCH ×3 (09:30→17:17)
[2016-08-08] MEDS: GLYCOPYRROLATE 1 MG TABLET GT SCH ×2 (09:30→17:17)
[2016-08-08] MEDS: DOCUSATE SODIUM LIQ 100 MG/10 ML UDC GT SCH ×2 (09:30→17:17)
[2016-08-08] MEDS: MULTIVITAMINS,THERAGRAN 1 UDTAB TABLET GT SCH (09:31)
[2016-08-08] MEDS: HYDROGEN PEROXIDE 480 ML BOTTLE TP SCH ×2 (09:31→20:36)
[2016-08-08] MEDS: ISONIAZID (300 MG) 300 MG TABLET GT SCH (09:31)
[2016-08-08] MEDS: Z GUARD REMEDY 4 OZ OINT TP SCH ×2 (09:31→20:36)
[2016-08-08] MEDS: ASCORBIC ACID 500 MG TABLET GT SCH ×2 (09:31→17:17)
[2016-08-08] MEDS: LEVETIRACETAM SOL (5 ML) 100 MG/ML UDC GT SCH ×2 (09:31→20:36)
[2016-08-08] MEDS: POTASSIUM CHLORIDE 20 MEQ/15 ML ML GT SCH ×2 (09:31→17:17)
--- NOTE | 2016-08-08 14:00 | NUR ---
Received order from Dr. Liz to DC Nexium and change to Protonix 40 mg GT daily, DC Lantus insulin and change to Levemir 8 units subcutaneously q 24 hours.
[2016-08-08 20:11] VITALS: BP 108/78
[2016-08-08] MEDS: SERTRALINE HCL 25 MG TABLET GT SCH (21:01)
[2016-08-08] MEDS: INSULIN DETEMIR 100 UNIT/ML CARTRIDGE SQ SCH (21:01)
[2016-08-09] MEDS: IPRATROPIUM NEB FS 0.5 MG/2.5 ML AMPUL.NEB NEB SCH ×4 (01:35→20:01)
[2016-08-09] MEDS: ALBUTEROL FS 2.5 MG/3 ML VIAL.NEB NEB SCH ×4 (01:35→20:01)
[2016-08-09] MEDS: PANTOPRAZOLE 40 MG/PACK PACK GT SCH (05:37)
[2016-08-09] MEDS: POLYVINYL ALCOHOL 15 ML BOTTLE EACHEYE SCH ×4 (05:37→23:14)
[2016-08-09] MEDS: BLOOD SUGAR DIAGNOSTIC 1 EACH STRIP IN SCH ×2 (05:37→17:48)
[2016-08-09 07:24] VITALS: BP 125/75
[2016-08-09] MEDS: ISONIAZID (300 MG) 300 MG TABLET GT SCH (09:19)
[2016-08-09] MEDS: GLYCOPYRROLATE 1 MG TABLET GT SCH ×2 (09:19→17:45)
[2016-08-09] MEDS: DOCUSATE SODIUM LIQ 100 MG/10 ML UDC GT SCH ×2 (09:19→17:45)
[2016-08-09] MEDS: LEVETIRACETAM SOL (5 ML) 100 MG/ML UDC GT SCH ×2 (09:19→21:07)
[2016-08-09] MEDS: ASCORBIC ACID 500 MG TABLET GT SCH ×2 (09:19→17:46)
[2016-08-09] MEDS: MULTIVITAMINS,THERAGRAN 1 UDTAB TABLET GT SCH (09:19)
[2016-08-09] MEDS: FERROUS SULFATE - FOR SA ONLY 330 MG/7.5 ML UDC GT SCH ×3 (09:19→17:45)
[2016-08-09] MEDS: POTASSIUM CHLORIDE 20 MEQ/15 ML ML GT SCH ×2 (09:19→17:45)
[2016-08-09] MEDS: PYRIDOXINE 100 MG GT SCH (09:19)
[2016-08-09] MEDS: BACLOFEN 20MG TABLET GT SCH ×3 (09:19→17:45)
[2016-08-09] MEDS: Z GUARD REMEDY 4 OZ OINT TP SCH ×2 (10:30→21:07)
[2016-08-09] MEDS: HYDROGEN PEROXIDE 480 ML BOTTLE TP SCH ×2 (10:30→21:07)
--- NOTE | 2016-08-09 10:44 | NUR ---
Seen and examined by Dr. Alvarez, NNO given.
[2016-08-09] MEDS: GLYTROL 1,000 ML BAG GT PRN (13:00)
--- NOTE | 2016-08-09 16:02 | NUR ---
Head circumference measured with 56.5cm.
[2016-08-09 21:02] VITALS: BP 126/77
[2016-08-09] MEDS: SERTRALINE HCL 25 MG TABLET GT SCH (21:07)
[2016-08-09] MEDS: INSULIN DETEMIR 100 UNIT/ML CARTRIDGE SQ SCH (21:08)
[2016-08-10] MEDS: IPRATROPIUM NEB FS 0.5 MG/2.5 ML AMPUL.NEB NEB SCH ×4 (02:19→19:44)
[2016-08-10] MEDS: ALBUTEROL FS 2.5 MG/3 ML VIAL.NEB NEB SCH ×4 (02:19→19:44)
[2016-08-10] MEDS: POLYVINYL ALCOHOL 15 ML BOTTLE EACHEYE SCH ×4 (05:32→23:32)
[2016-08-10] MEDS: BLOOD SUGAR DIAGNOSTIC 1 EACH STRIP IN SCH ×2 (05:32→17:47)
[2016-08-10] MEDS: PANTOPRAZOLE 40 MG/PACK PACK GT SCH (05:32)
[2016-08-10 08:24] VITALS: BP 124/82
[2016-08-10] MEDS: GLYCOPYRROLATE 1 MG TABLET GT SCH ×2 (08:47→16:49)
[2016-08-10] MEDS: DOCUSATE SODIUM LIQ 100 MG/10 ML UDC GT SCH ×2 (08:47→16:49)
[2016-08-10] MEDS: ISONIAZID (300 MG) 300 MG TABLET GT SCH (08:47)
[2016-08-10] MEDS: PYRIDOXINE 100 MG GT SCH (08:47)
[2016-08-10] MEDS: BACLOFEN 20MG TABLET GT SCH ×3 (08:47→16:49)
[2016-08-10] MEDS: FERROUS SULFATE - FOR SA ONLY 330 MG/7.5 ML UDC GT SCH ×3 (08:47→16:49)
[2016-08-10] MEDS: ASCORBIC ACID 500 MG TABLET GT SCH ×2 (08:48→16:49)
[2016-08-10] MEDS: LEVETIRACETAM SOL (5 ML) 100 MG/ML UDC GT SCH ×2 (08:48→21:03)
[2016-08-10] MEDS: POTASSIUM CHLORIDE 20 MEQ/15 ML ML GT SCH ×2 (08:48→16:49)
[2016-08-10] MEDS: MULTIVITAMINS,THERAGRAN 1 UDTAB TABLET GT SCH (08:48)
[2016-08-10] MEDS: Z GUARD REMEDY 4 OZ OINT TP SCH ×2 (14:15→21:04)
[2016-08-10] MEDS: HYDROGEN PEROXIDE 480 ML BOTTLE TP SCH ×2 (14:15→21:04)
[2016-08-10 19:45] VITALS: BP 92/68
[2016-08-10] MEDS: SERTRALINE HCL 25 MG TABLET GT SCH (21:04)
[2016-08-10] MEDS: INSULIN DETEMIR 100 UNIT/ML CARTRIDGE SQ SCH (21:04)
[2016-08-11] MEDS: ALBUTEROL FS 2.5 MG/3 ML VIAL.NEB NEB SCH ×4 (00:44→19:48)
[2016-08-11] MEDS: IPRATROPIUM NEB FS 0.5 MG/2.5 ML AMPUL.NEB NEB SCH ×4 (00:44→19:48)
[2016-08-11] MEDS: POLYVINYL ALCOHOL 15 ML BOTTLE EACHEYE SCH ×4 (05:13→23:26)
[2016-08-11] MEDS: PANTOPRAZOLE 40 MG/PACK PACK GT SCH (05:14)
[2016-08-11] MEDS: BLOOD SUGAR DIAGNOSTIC 1 EACH STRIP IN SCH ×2 (05:14→17:15)
[2016-08-11 08:03] VITALS: BP 111/88
[2016-08-11] MEDS: LEVETIRACETAM SOL (5 ML) 100 MG/ML UDC GT SCH ×2 (08:48→21:01)
[2016-08-11] MEDS: GLYCOPYRROLATE 1 MG TABLET GT SCH ×2 (08:48→16:41)
[2016-08-11] MEDS: MULTIVITAMINS,THERAGRAN 1 UDTAB TABLET GT SCH (08:48)
[2016-08-11] MEDS: DOCUSATE SODIUM LIQ 100 MG/10 ML UDC GT SCH ×2 (08:48→16:41)
[2016-08-11] MEDS: ISONIAZID (300 MG) 300 MG TABLET GT SCH (08:48)
[2016-08-11] MEDS: BACLOFEN 20MG TABLET GT SCH ×3 (08:48→16:41)
[2016-08-11] MEDS: POTASSIUM CHLORIDE 20 MEQ/15 ML ML GT SCH ×2 (08:48→16:41)
[2016-08-11] MEDS: FERROUS SULFATE - FOR SA ONLY 330 MG/7.5 ML UDC GT SCH ×3 (08:48→16:41)
[2016-08-11] MEDS: ASCORBIC ACID 500 MG TABLET GT SCH ×2 (08:48→16:41)
[2016-08-11] MEDS: PYRIDOXINE 100 MG GT SCH (08:48)
[2016-08-11] MEDS: HYDROGEN PEROXIDE 480 ML BOTTLE TP SCH ×2 (08:49→21:01)
[2016-08-11] MEDS: Z GUARD REMEDY 4 OZ OINT TP SCH ×2 (08:49→21:01)
[2016-08-11] MEDS: BISACODYL SUPP (10 MG) 10 MG/SUPP.RECT SUPP.RECT RC PRN (16:41)
[2016-08-11] MEDS: GLYTROL 1,000 ML BAG GT PRN (18:31)
[2016-08-11 19:49] VITALS: BP 115/64
[2016-08-11] MEDS: SERTRALINE HCL 25 MG TABLET GT SCH (21:01)
[2016-08-11] MEDS: INSULIN DETEMIR 100 UNIT/ML CARTRIDGE SQ SCH (21:02)
[2016-08-12] MEDS: IPRATROPIUM NEB FS 0.5 MG/2.5 ML AMPUL.NEB NEB SCH ×4 (00:45→19:35)
[2016-08-12] MEDS: ALBUTEROL FS 2.5 MG/3 ML VIAL.NEB NEB SCH ×4 (00:45→19:35)
[2016-08-12] MEDS: PANTOPRAZOLE 40 MG/PACK PACK GT SCH (05:08)
[2016-08-12] MEDS: POLYVINYL ALCOHOL 15 ML BOTTLE EACHEYE SCH ×4 (05:08→23:57)
[2016-08-12] MEDS: BLOOD SUGAR DIAGNOSTIC 1 EACH STRIP IN SCH ×2 (05:08→17:22)
[2016-08-12] MEDS: INSULIN LISPRO/ASPART 100 UNIT/ML CARTRIDGE SQ PRN (05:09)
[2016-08-12 07:45] VITALS: BP 117/74
[2016-08-12] MEDS: DOCUSATE SODIUM LIQ 100 MG/10 ML UDC GT SCH ×2 (08:24→17:22)
[2016-08-12] MEDS: GLYCOPYRROLATE 1 MG TABLET GT SCH ×2 (08:24→17:22)
[2016-08-12] MEDS: ASCORBIC ACID 500 MG TABLET GT SCH ×2 (08:24→17:22)
[2016-08-12] MEDS: POTASSIUM CHLORIDE 20 MEQ/15 ML ML GT SCH ×2 (08:24→17:22)
[2016-08-12] MEDS: ISONIAZID (300 MG) 300 MG TABLET GT SCH (08:24)
[2016-08-12] MEDS: MULTIVITAMINS,THERAGRAN 1 UDTAB TABLET GT SCH (08:24)
[2016-08-12] MEDS: LEVETIRACETAM SOL (5 ML) 100 MG/ML UDC GT SCH ×2 (08:24→21:47)
[2016-08-12] MEDS: BACLOFEN 20MG TABLET GT SCH ×3 (08:24→17:22)
[2016-08-12] MEDS: FERROUS SULFATE - FOR SA ONLY 330 MG/7.5 ML UDC GT SCH ×3 (08:24→17:22)
[2016-08-12] MEDS: PYRIDOXINE 100 MG GT SCH (08:24)
[2016-08-12] MEDS: HYDROGEN PEROXIDE 480 ML BOTTLE TP SCH ×2 (08:28→21:47)
[2016-08-12] MEDS: Z GUARD REMEDY 4 OZ OINT TP SCH ×2 (08:28→21:47)
[2016-08-12] MEDS: GLYTROL 1,000 ML BAG GT PRN (14:41)
--- NOTE | 2016-08-12 16:10 | NUR ---
RT MONHTLY TRACH CHANGE DONE WITH NEW SUPRIYALEY #6 TRACH. TRACH CHANGE DONE WITH NO RESPIRATORY COMPLICATIONS NOTED. BILATERAL BREATH SOUNDS ON AUSCULTATION. RESPIRATIONS EVEN AND UNLABORED. NO REDNESS OR BLEEDING AT TRACH SITE. NO RESPIRATORY DISTRESS NOTED AT THIS TIME. AMBU BAG AND SPARE TRACH TUBE AT BEDSIDE. RN JALOUSIE INSTALLER NOTIFIED AND AWARE. WILL CONTINUE TO MONITOR FOR ANY CHANGE OF CONDITION.
--- NOTE | 2016-08-12 16:12 | NUR ---
Seen and examined by Mya Rodgers, SURGEON ASSISTANT, NNO given.
[2016-08-12 20:19] VITALS: BP 116/76
[2016-08-12] MEDS: SERTRALINE HCL 25 MG TABLET GT SCH (21:47)
[2016-08-12] MEDS: INSULIN DETEMIR 100 UNIT/ML CARTRIDGE SQ SCH (21:48)
[2016-08-13] MEDS: IPRATROPIUM NEB FS 0.5 MG/2.5 ML AMPUL.NEB NEB SCH ×4 (00:48→19:14)
[2016-08-13] MEDS: ALBUTEROL FS 2.5 MG/3 ML VIAL.NEB NEB SCH ×4 (00:48→19:14)
[2016-08-13] MEDS: PANTOPRAZOLE 40 MG/PACK PACK GT SCH (05:23)
[2016-08-13] MEDS: POLYVINYL ALCOHOL 15 ML BOTTLE EACHEYE SCH ×3 (05:23→17:23)
[2016-08-13] MEDS: INSULIN LISPRO/ASPART 100 UNIT/ML CARTRIDGE SQ PRN (05:24)
[2016-08-13] MEDS: BLOOD SUGAR DIAGNOSTIC 1 EACH STRIP IN SCH ×2 (05:24→17:23)
[2016-08-13 08:11] VITALS: BP 121/76
[2016-08-13] MEDS: FERROUS SULFATE - FOR SA ONLY 330 MG/7.5 ML UDC GT SCH ×3 (09:39→16:55)
[2016-08-13] MEDS: DOCUSATE SODIUM LIQ 100 MG/10 ML UDC GT SCH ×2 (09:39→16:55)
[2016-08-13] MEDS: GLYCOPYRROLATE 1 MG TABLET GT SCH ×3 (09:39→16:55)
[2016-08-13] MEDS ORDERED: BACLOFEN 20MG TABLET GT SCH (09:41)
[2016-08-13] MEDS: ISONIAZID (300 MG) 300 MG TABLET GT SCH (09:44)
[2016-08-13] MEDS: PYRIDOXINE 100 MG GT SCH (09:44)
[2016-08-13] MEDS: POTASSIUM CHLORIDE 20 MEQ/15 ML ML GT SCH (09:44)
[2016-08-13] MEDS: LEVETIRACETAM SOL (5 ML) 100 MG/ML UDC GT SCH ×2 (09:44→21:42)
[2016-08-13] MEDS: ASCORBIC ACID 500 MG TABLET GT SCH ×2 (09:45→16:55)
[2016-08-13] MEDS: MULTIVITAMINS,THERAGRAN 1 UDTAB TABLET GT SCH (09:45)
[2016-08-13] MEDS: Z GUARD REMEDY 4 OZ OINT TP SCH ×2 (09:45→21:43)
[2016-08-13] MEDS ORDERED: DEXTROSE 50%-WATER 50 ML DISP.SYRIN IV PRN (10:00)
[2016-08-13] MEDS ORDERED: IPRATROPIUM NEB FS 0.5 MG/2.5 ML AMPUL.NEB IH PRN (10:00)
[2016-08-13] MEDS ORDERED: HYDROGEN PEROXIDE 480 ML BOTTLE TP PRN (10:00)
[2016-08-13] MEDS: BACLOFEN (10 MG) 10 MG TABLET GT SCH ×3 (10:01→16:55)
--- NOTE | 2016-08-13 13:39 | NUR ---
Sent referral to Francois from [employer] for customized wheelchair eligibility (fax: [phone]). He will follow up and send required documentation to social work case manager. Family informed. SW will follow up.
[2016-08-13] MEDS: POTASSIUM CHLORIDE 20 MEQ POWDER PACKET GT SCH (16:55)
[2016-08-13] MEDS ORDERED: PANTOPRAZOLE 40 MG/PACK PACK GT SCH (17:00)
[2016-08-13 19:42] VITALS: BP 115/75
[2016-08-13] MEDS: HYDROGEN PEROXIDE 480 ML BOTTLE TP SCH (21:42)
[2016-08-13] MEDS: SERTRALINE HCL 25 MG TABLET GT SCH (21:43)
[2016-08-13] MEDS: INSULIN DETEMIR 100 UNIT/ML CARTRIDGE SQ SCH (21:45)
[2016-08-14] MEDS: POLYVINYL ALCOHOL 15 ML BOTTLE EACHEYE SCH ×5 (00:56→23:42)
[2016-08-14] MEDS: ALBUTEROL FS 2.5 MG/3 ML VIAL.NEB NEB SCH ×4 (01:36→19:28)
[2016-08-14] MEDS: IPRATROPIUM NEB FS 0.5 MG/2.5 ML AMPUL.NEB NEB SCH ×4 (01:36→19:28)
[2016-08-14] MEDS: GLYTROL 1,000 ML BAG GT PRN ×2 (02:06→20:39)
[2016-08-14] MEDS: INSULIN LISPRO/ASPART 100 UNIT/ML CARTRIDGE SQ PRN ×2 (05:14→17:19)
[2016-08-14] MEDS: PANTOPRAZOLE 40 MG/PACK PACK GT SCH (05:14)
[2016-08-14] MEDS: BLOOD SUGAR DIAGNOSTIC 1 EACH STRIP IN SCH ×2 (05:14→17:18)
[2016-08-14 07:16] VITALS: BP 117/63
[2016-08-14] MEDS: POTASSIUM CHLORIDE 20 MEQ POWDER PACKET GT SCH ×2 (08:50→16:41)
[2016-08-14] MEDS: LEVETIRACETAM SOL (5 ML) 100 MG/ML UDC GT SCH ×2 (08:50→20:24)
[2016-08-14] MEDS: PYRIDOXINE HCL 50 MG TABLET GT SCH (08:50)
[2016-08-14] MEDS: BACLOFEN (10 MG) 10 MG TABLET GT SCH ×3 (08:50→16:42)
[2016-08-14] MEDS: MULTIVITAMINS,THERAGRAN 1 UDTAB TABLET GT SCH (08:50)
[2016-08-14] MEDS: GLYCOPYRROLATE 1 MG TABLET GT SCH ×2 (08:50→16:41)
[2016-08-14] MEDS: HYDROGEN PEROXIDE 480 ML BOTTLE TP SCH ×2 (08:50→20:25)
[2016-08-14] MEDS: ISONIAZID (300 MG) 300 MG TABLET GT SCH (08:50)
[2016-08-14] MEDS: DOCUSATE SODIUM LIQ 100 MG/10 ML UDC GT SCH ×2 (08:50→16:37)
[2016-08-14] MEDS: FERROUS SULFATE - FOR SA ONLY 330 MG/7.5 ML UDC GT SCH ×3 (08:50→16:38)
[2016-08-14] MEDS: Z GUARD REMEDY 4 OZ OINT TP SCH ×2 (08:50→20:25)
[2016-08-14] MEDS: ASCORBIC ACID 500 MG TABLET GT SCH ×2 (08:50→16:41)
[2016-08-14 19:35] VITALS: BP 112/73
[2016-08-14] MEDS: SERTRALINE HCL 25 MG TABLET GT SCH (21:27)
[2016-08-14] MEDS: INSULIN DETEMIR 100 UNIT/ML CARTRIDGE SQ SCH (21:28)
[2016-08-15] MEDS: IPRATROPIUM NEB FS 0.5 MG/2.5 ML AMPUL.NEB NEB SCH ×4 (02:00→19:42)
[2016-08-15] MEDS: ALBUTEROL FS 2.5 MG/3 ML VIAL.NEB NEB SCH ×4 (02:00→19:42)
[2016-08-15] MEDS: BLOOD SUGAR DIAGNOSTIC 1 EACH STRIP IN SCH ×2 (05:38→17:34)
[2016-08-15] MEDS: POLYVINYL ALCOHOL 15 ML BOTTLE EACHEYE SCH ×3 (05:38→17:14)
[2016-08-15] MEDS: PANTOPRAZOLE 40 MG/PACK PACK GT SCH (05:38)
[2016-08-15] MEDS: INSULIN LISPRO/ASPART 100 UNIT/ML CARTRIDGE SQ PRN ×2 (05:39→17:34)
[2016-08-15 07:42] VITALS: BP 121/73
[2016-08-15] MEDS: POTASSIUM CHLORIDE 20 MEQ POWDER PACKET GT SCH ×2 (08:46→17:14)
[2016-08-15] MEDS: LEVETIRACETAM SOL (5 ML) 100 MG/ML UDC GT SCH ×2 (08:46→21:05)
[2016-08-15] MEDS: ISONIAZID (300 MG) 300 MG TABLET GT SCH (08:46)
[2016-08-15] MEDS: BACLOFEN (10 MG) 10 MG TABLET GT SCH ×3 (08:46→17:14)
[2016-08-15] MEDS: ASCORBIC ACID 500 MG TABLET GT SCH ×2 (08:46→17:14)
[2016-08-15] MEDS: GLYCOPYRROLATE 1 MG TABLET GT SCH ×2 (08:46→17:14)
[2016-08-15] MEDS: MULTIVITAMINS,THERAGRAN 1 UDTAB TABLET GT SCH (08:46)
[2016-08-15] MEDS: FERROUS SULFATE - FOR SA ONLY 330 MG/7.5 ML UDC GT SCH ×3 (08:46→17:14)
[2016-08-15] MEDS: Z GUARD REMEDY 4 OZ OINT TP SCH ×2 (08:46→21:05)
[2016-08-15] MEDS: PYRIDOXINE HCL 50 MG TABLET GT SCH (08:46)
[2016-08-15] MEDS: DOCUSATE SODIUM LIQ 100 MG/10 ML UDC GT SCH ×2 (08:46→17:14)
[2016-08-15] MEDS: HYDROGEN PEROXIDE 480 ML BOTTLE TP SCH ×2 (08:46→21:05)
[2016-08-15] MEDS: GLYTROL 1,000 ML BAG GT PRN (17:14)
[2016-08-15 19:49] VITALS: BP 128/78
[2016-08-15] MEDS: SERTRALINE HCL 25 MG TABLET GT SCH (21:05)
[2016-08-15] MEDS: INSULIN DETEMIR 100 UNIT/ML CARTRIDGE SQ SCH (21:08)
[2016-08-16] MEDS: POLYVINYL ALCOHOL 15 ML BOTTLE EACHEYE SCH ×5 (00:01→23:48)
[2016-08-16] MEDS: IPRATROPIUM NEB FS 0.5 MG/2.5 ML AMPUL.NEB NEB SCH ×4 (01:45→20:27)
[2016-08-16] MEDS: ALBUTEROL FS 2.5 MG/3 ML VIAL.NEB NEB SCH ×4 (01:45→20:27)
[2016-08-16] MEDS: BLOOD SUGAR DIAGNOSTIC 1 EACH STRIP IN SCH ×2 (05:28→18:25)
[2016-08-16] MEDS: PANTOPRAZOLE 40 MG/PACK PACK GT SCH (05:28)
[2016-08-16] MEDS: INSULIN LISPRO/ASPART 100 UNIT/ML CARTRIDGE SQ PRN ×2 (05:29→18:25)
[2016-08-16 07:45] VITALS: BP 110/69
[2016-08-16] MEDS: GLYCOPYRROLATE 1 MG TABLET GT SCH ×2 (08:20→17:28)
[2016-08-16] MEDS: DOCUSATE SODIUM LIQ 100 MG/10 ML UDC GT SCH ×2 (08:20→17:28)
[2016-08-16] MEDS: ISONIAZID (300 MG) 300 MG TABLET GT SCH (08:20)
[2016-08-16] MEDS: BACLOFEN (10 MG) 10 MG TABLET GT SCH ×3 (08:20→17:28)
[2016-08-16] MEDS: PYRIDOXINE HCL 50 MG TABLET GT SCH (08:20)
[2016-08-16] MEDS: LEVETIRACETAM SOL (5 ML) 100 MG/ML UDC GT SCH ×2 (08:20→20:14)
[2016-08-16] MEDS: FERROUS SULFATE - FOR SA ONLY 330 MG/7.5 ML UDC GT SCH ×3 (08:20→17:28)
[2016-08-16] MEDS: ASCORBIC ACID 500 MG TABLET GT SCH ×2 (08:20→17:28)
[2016-08-16] MEDS: MULTIVITAMINS,THERAGRAN 1 UDTAB TABLET GT SCH (08:20)
[2016-08-16] MEDS: POTASSIUM CHLORIDE 20 MEQ POWDER PACKET GT SCH ×2 (08:28→17:28)
[2016-08-16] MEDS: Z GUARD REMEDY 4 OZ OINT TP SCH ×2 (09:00→20:14)
[2016-08-16] MEDS: HYDROGEN PEROXIDE 480 ML BOTTLE TP SCH ×2 (09:00→20:14)
--- NOTE | 2016-08-16 19:02 | NUR ---
Head circumference measured with 67cm.
[2016-08-16 20:01] VITALS: BP 143/68
[2016-08-16] MEDS: SERTRALINE HCL 25 MG TABLET GT SCH (21:02)
[2016-08-16] MEDS: INSULIN DETEMIR 100 UNIT/ML CARTRIDGE SQ SCH (21:03)
[2016-08-17] MEDS: ALBUTEROL FS 2.5 MG/3 ML VIAL.NEB NEB SCH ×4 (02:28→20:24)
[2016-08-17] MEDS: IPRATROPIUM NEB FS 0.5 MG/2.5 ML AMPUL.NEB NEB SCH ×4 (02:28→20:24)
[2016-08-17] MEDS: PANTOPRAZOLE 40 MG/PACK PACK GT SCH (05:23)
[2016-08-17] MEDS: POLYVINYL ALCOHOL 15 ML BOTTLE EACHEYE SCH ×3 (05:23→17:32)
[2016-08-17] MEDS: BLOOD SUGAR DIAGNOSTIC 1 EACH STRIP IN SCH ×2 (05:23→17:41)
[2016-08-17] MEDS: DOCUSATE SODIUM LIQ 100 MG/10 ML UDC GT SCH ×2 (08:04→17:31)
[2016-08-17] MEDS: POTASSIUM CHLORIDE 20 MEQ POWDER PACKET GT SCH ×2 (08:05→17:32)
[2016-08-17] MEDS: MULTIVITAMINS,THERAGRAN 1 UDTAB TABLET GT SCH (08:05)
[2016-08-17] MEDS: PYRIDOXINE HCL 50 MG TABLET GT SCH (08:05)
[2016-08-17] MEDS: LEVETIRACETAM SOL (5 ML) 100 MG/ML UDC GT SCH ×2 (08:05→21:01)
[2016-08-17] MEDS: FERROUS SULFATE - FOR SA ONLY 330 MG/7.5 ML UDC GT SCH ×3 (08:05→17:31)
[2016-08-17] MEDS: ASCORBIC ACID 500 MG TABLET GT SCH ×2 (08:05→17:32)
[2016-08-17] MEDS: BACLOFEN (10 MG) 10 MG TABLET GT SCH ×3 (08:05→17:32)
[2016-08-17] MEDS: GLYCOPYRROLATE 1 MG TABLET GT SCH ×2 (08:05→17:31)
[2016-08-17] MEDS: ISONIAZID (300 MG) 300 MG TABLET GT SCH (08:05)
[2016-08-17] MEDS: Z GUARD REMEDY 4 OZ OINT TP SCH ×2 (09:00→21:01)
[2016-08-17] MEDS: HYDROGEN PEROXIDE 480 ML BOTTLE TP SCH ×2 (09:00→21:01)
[2016-08-17 09:29] VITALS: BP 126/71
--- NOTE | 2016-08-17 11:20 | NUR ---
Pt appears pale, diaphoretic and desaturating to 87-88%, HR 114. Notified ELECTRIC RAZOR ASSEMBLER Mya Rodgers who was making rounds. She came to see pt at bedside. Received order to do STAT CBC, CMP, ABG, UA, CXR. Pt was suctioned and given breathing treatment.
--- NOTE | 2016-08-17 11:30 | NUR ---
ABG result relayed to LORENZO Rodgers. Received order to place pt on mechanical ventilator AC 12 VT 500 FiO2 60% Peep+5. O2 sat improved to 96%.
[2016-08-17 11:54] LABS: BASOPHILS % (AUTO) 0.2 % (0.0-2.0); EOSINOPHILS % (AUTO) 0.1 % (0.0-6.0); HEMATOCRIT 40 % (33-45); HEMOGLOBIN 12.7 g/dL (11.5-14.8); LYMPHOCYTES # (AUTO) 1.2 /CMM (0.8-4.8); MEAN CORPUSCULAR HEMOGLOBIN 29 PG (26.0-33.0); MEAN CORPUSCULAR HGB CONC 32 g/dl (31.0-36.0); MEAN CORPUSCULAR VOLUME 93 fL (82-100); MONOCYTES # (AUTO) 0.7 /CMM (0.1-1.30); MONOCYTES % (AUTO) 6.3 % (2.0-12.0); NEUTROPHILS # (AUTO) 8.8 /CMM (1.8-8.9); NEUTROPHILS % (AUTO) 82.4 % (43.0-81.0); PLATELET COUNT (AUTO) 260 /CMM (150-450); RDW COEFFICIENT OF VARIATION 13.6 (11.5-15.0); RED BLOOD CELL COUNT(AUTO) 4.34 MIL/uL (4.0-5.2); WHITE BLOOD COUNT (AUTO) 10.6 K/uL (4.3-11.0)
[2016-08-17 12:14] LABS: ALBUMIN 3.1 g/dL (3.4-5.0); BILIRUBIN,TOTAL 0.2 mg/dL (0.2-1.0); CALCIUM, SERUM 9.4 mg/dL (8.5-10.1); CREATININE 0.5 mg/dL (0.6-1.3); POTASSIUM 4.8 mmol/L (3.5-5.1); TOTAL PROTEIN, SERUM 8.2 g/dL (6.4-8.2)
--- NOTE | 2016-08-17 12:40 | NUR ---
Relayed CBC and CMP results to LORENZO Rodgers. Received order to give 1 liter of NS at 70 cc/hr IV for hydration.
[2016-08-17] MEDS ORDERED: IV NS 0.9% 1,000 ML IV ONE (13:00)
--- NOTE | 2016-08-17 13:45 | NUR ---
Notified Dr. Bullard of change in condition and new orders. He said he will see pt later. Addendum: 08/23/16 at 1059 by TRISTIN MCCLENDON RN Notified pt's sister Tosin of change in condition and new orders.
--- NOTE | 2016-08-17 14:00 | NUR ---
BP 91/60 HR 103 T 100.7 F R 12 O2 sat 98%. IV NS infusing.
--- NOTE | 2016-08-17 14:00 | NUR ---
ABG done an hour after pt was placed on the vent. Relayed ABG result to LORENZO Rodgers. Received order to titrate FiO2 down to keep O2 sat equal to greater than 92%.
--- NOTE | 2016-08-17 14:08 | NUR ---
Notified Dr. Bullard that pt's T 100.7 F, WBC 10.6, BP 80/57 HR 108. Notified him that IV NS at 70 mL/hr has been infusing. Placed pt on Trendelenburg, GT feeding held to prevent aspiration. Dr. Bullard ordered to give bolus NS 500 cc IV, UA and CXR.
--- NOTE | 2016-08-17 14:14 | NUR ---
Rechecked pt's BP. BP 92/60 HR 108 O2 sat 100%.
--- NOTE | 2016-08-17 14:15 | NUR ---
Notified Dr. Alvarez of change in condition and new orders from LORENZO Rodgers. Received order to do CBC and CXR in AM.
--- NOTE | 2016-08-17 14:17 | NUR ---
Relayed CXR result to Dr. Alvarez and LORENZO Rodgers. Both said no new order.
--- NOTE | 2016-08-17 14:28 | NUR ---
Notified Dr. Bullard that pt's temp is now 102.7 F. Tylenol was given, cooling measures rendered.
--- NOTE | 2016-08-17 14:30 | NUR ---
BP 103/72 HR 108 O2 sat 100.
--- NOTE | 2016-08-17 15:15 | NUR ---
Resident was seen by Dr. Sales (acoustical engineer).
[2016-08-17] MEDS ORDERED: IV NS 0.9% 500 ML IV ONE ×2 (15:30→20:00)
--- NOTE | 2016-08-17 17:10 | NUR ---
BP 109/53 HR 98 T 101 F R 12 O2 sat 98%. Cooling measures being provided.
[2016-08-17] MEDS: BISACODYL SUPP (10 MG) 10 MG/SUPP.RECT SUPP.RECT RC PRN (17:22)
[2016-08-17] MEDS: INSULIN LISPRO/ASPART 100 UNIT/ML CARTRIDGE SQ PRN (17:46)
--- NOTE | 2016-08-17 19:02 | NUR ---
Seen by Dr. Bullard. Received order to give NS 500 mL bolus again for BP 85/50.
[2016-08-17 19:12] LABS: BILIRUBIN,URINE NEGATIVE (NEGATIVE); BLOOD, URINE 2+ Ery/uL (NEGATIVE); COLOR,URINE YELLOW (YELLOW); KETONES,URINE NEGATIVE (NEGATIVE); LEUKOCYTE ESTERASE ,URINE TRACE (NEGATIVE); NITRITE, URINE NEGATIVE (NEGATIVE); PH,URINE 6.5 (5.0-8.0); PROTEIN,URINE TRACE mg/dl (NEGATIVE); UGLUCOSE NEGATIVE (NEGATIVE); UROBILINOGEN,URINE 0.2 EU/dL (0.2)
--- NOTE | 2016-08-17 19:15 | NUR ---
1400 Pt. has fever and tylenol 640mg. given for temperature 101 and cooling measures applied. CN made aware. 1500 temp. subsided to 99degrees.
[2016-08-17 19:26] LABS: APPEARANCE,URINE SLIGHTLY HAZY (CLEAR)
[2016-08-17 19:27] LABS: BACTERIA,URINE Many /HPF (None Seen); SQUAMOUS EPITHELIAL CELL,UR Few /HPF (None Seen)
--- NOTE | 2016-08-17 20:00 | NUR ---
RN NOTES Received pt on ventilator on AC 12 VT 500 FiO2 40% PEEP +5. B/P 88/58, HR 90. Pt received NS 500ml bolus x2 earlier and b/p continues low, notified Dr. Bullard and ordered to continue NS @ 70ml/hr until further orders. Also, notified Mya Rodgers, per RT recommendation, pt might may need PEEP discontinue to improve B/P, ordered to d/c peep and ABG in am. Orders noted and carried out. Sister Tosin made aware of new orders.
[2016-08-17 20:13] VITALS: BP 88/58
--- NOTE | 2016-08-17 20:51 | NUR ---
DC PEEP DUE TO DECREASED BP Addendum: 08/17/16 at 2050 by ALYSSA ARIAS Amended: Links added.
[2016-08-17] MEDS: SERTRALINE HCL 25 MG TABLET GT SCH (21:01)
[2016-08-17] MEDS: INSULIN DETEMIR 100 UNIT/ML CARTRIDGE SQ SCH (21:04)
[2016-08-18] MEDS: POLYVINYL ALCOHOL 15 ML BOTTLE EACHEYE SCH ×4 (00:18→17:32)
[2016-08-18] MEDS: IPRATROPIUM NEB FS 0.5 MG/2.5 ML AMPUL.NEB NEB SCH ×4 (01:20→20:08)
[2016-08-18] MEDS: ALBUTEROL FS 2.5 MG/3 ML VIAL.NEB NEB SCH ×4 (01:20→20:08)
[2016-08-18] MEDS: IV NS 0.9% 1,000 ML IV PRN ×2 (02:00→16:28)
[2016-08-18] MEDS: PANTOPRAZOLE 40 MG/PACK PACK GT SCH (05:51)
[2016-08-18] MEDS: BLOOD SUGAR DIAGNOSTIC 1 EACH STRIP IN SCH ×2 (05:51→17:32)
[2016-08-18] MEDS: INSULIN LISPRO/ASPART 100 UNIT/ML CARTRIDGE SQ PRN ×2 (05:52→17:33)
--- NOTE | 2016-08-18 06:00 | NUR ---
RN NOTES Pt in stable condition. Tolerating new vent settings with no SOB or respiratory distress. B/P 116/72, HR 88, RR 12, T 98.2, SpO2 98%. Will continue to monitor closely.
[2016-08-18 07:47] VITALS: BP 130/66
[2016-08-18 09:07] LABS: BASOPHILS % (AUTO) 0.1 % (0.0-2.0); EOSINOPHILS % (AUTO) 0.2 % (0.0-6.0); HEMATOCRIT 31 % (33-45); HEMOGLOBIN 9.9 g/dL (11.5-14.8); LYMPHOCYTES # (AUTO) 1.2 /CMM (0.8-4.8); LYMPHOCYTES % (AUTO) 16.4 % (20.0-44.0); MEAN CORPUSCULAR HEMOGLOBIN 29 PG (26.0-33.0); MEAN CORPUSCULAR HGB CONC 32 g/dl (31.0-36.0); MEAN CORPUSCULAR VOLUME 92 fL (82-100); MONOCYTES # (AUTO) 0.7 /CMM (0.1-1.30); MONOCYTES % (AUTO) 8.9 % (2.0-12.0); NEUTROPHILS # (AUTO) 5.5 /CMM (1.8-8.9); NEUTROPHILS % (AUTO) 74.4 % (43.0-81.0); PLATELET COUNT (AUTO) 196 /CMM (150-450); RDW COEFFICIENT OF VARIATION 13.5 (11.5-15.0); RED BLOOD CELL COUNT(AUTO) 3.35 MIL/uL (4.0-5.2); WHITE BLOOD COUNT (AUTO) 7.4 K/uL (4.3-11.0)
--- NOTE | 2016-08-18 09:29 | NUR ---
Dr. Alvarez aware of ABG result done today. NNO given, will continue with current vent setting
[2016-08-18] MEDS: FERROUS SULFATE - FOR SA ONLY 330 MG/7.5 ML UDC GT SCH ×3 (09:46→16:44)
[2016-08-18] MEDS: BACLOFEN (10 MG) 10 MG TABLET GT SCH ×3 (09:46→16:42)
[2016-08-18] MEDS: MULTIVITAMINS,THERAGRAN 1 UDTAB TABLET GT SCH (09:46)
[2016-08-18] MEDS: ASCORBIC ACID 500 MG TABLET GT SCH ×2 (09:46→16:42)
[2016-08-18] MEDS: LEVETIRACETAM SOL (5 ML) 100 MG/ML UDC GT SCH ×2 (09:46→21:02)
[2016-08-18] MEDS: PYRIDOXINE HCL 50 MG TABLET GT SCH (09:46)
[2016-08-18] MEDS: GLYCOPYRROLATE 1 MG TABLET GT SCH ×2 (09:46→16:44)
[2016-08-18] MEDS: DOCUSATE SODIUM LIQ 100 MG/10 ML UDC GT SCH ×2 (09:46→16:42)
[2016-08-18] MEDS: ISONIAZID (300 MG) 300 MG TABLET GT SCH (09:46)
[2016-08-18] MEDS: HYDROGEN PEROXIDE 480 ML BOTTLE TP SCH ×2 (09:46→21:02)
[2016-08-18] MEDS: POTASSIUM CHLORIDE 20 MEQ POWDER PACKET GT SCH ×2 (09:46→16:42)
[2016-08-18] MEDS: Z GUARD REMEDY 4 OZ OINT TP SCH ×2 (09:47→21:02)
[2016-08-18] MEDS: GLYTROL 1,000 ML BAG GT PRN (12:43)
--- NOTE | 2016-08-18 13:00 | NUR ---
Notified Dr. Bullard of the preliminary urine cx. result >100,000 gram neg rods, afebrile 97.7 and CBC result done today. New order to start on Cefriaxone 1gm Q 24 hours x 10 days for UTI and to continue IVF x 1 more day. Orders noted and carried out.
[2016-08-18] MEDS: CEFTRIAXONE 1 G in IV D5W 50 ML IV SCH (14:00)
[2016-08-18 19:55] VITALS: BP 136/76
[2016-08-18] MEDS: ACETAMINOPHEN 650 MG/20 ML UDC- FOR SA PATIENTS ONLY GT PRN (19:56)
[2016-08-18] MEDS: SERTRALINE HCL 25 MG TABLET GT SCH (21:02)
[2016-08-18] MEDS: INSULIN DETEMIR 100 UNIT/ML CARTRIDGE SQ SCH (21:51)
[2016-08-19] MEDS: POLYVINYL ALCOHOL 15 ML BOTTLE EACHEYE SCH ×5 (00:40→23:54)
[2016-08-19] MEDS: IPRATROPIUM NEB FS 0.5 MG/2.5 ML AMPUL.NEB NEB SCH ×4 (01:40→20:16)
[2016-08-19] MEDS: ALBUTEROL FS 2.5 MG/3 ML VIAL.NEB NEB SCH ×4 (01:40→20:16)
[2016-08-19] MEDS: GLYTROL 1,000 ML BAG GT PRN (04:54)
[2016-08-19] MEDS: IV NS 0.9% 1,000 ML IV PRN (05:09)
[2016-08-19] MEDS: INSULIN LISPRO/ASPART 100 UNIT/ML CARTRIDGE SQ PRN ×2 (05:29→17:14)
[2016-08-19] MEDS: PANTOPRAZOLE 40 MG/PACK PACK GT SCH (05:29)
[2016-08-19] MEDS: BLOOD SUGAR DIAGNOSTIC 1 EACH STRIP IN SCH ×2 (05:29→17:13)
[2016-08-19] MEDS: ACETAMINOPHEN 650 MG/20 ML UDC- FOR SA PATIENTS ONLY GT PRN (06:33)
[2016-08-19 07:27] VITALS: BP 96/61
[2016-08-19] MEDS: DOCUSATE SODIUM LIQ 100 MG/10 ML UDC GT SCH ×2 (08:34→16:30)
[2016-08-19] MEDS: FERROUS SULFATE - FOR SA ONLY 330 MG/7.5 ML UDC GT SCH ×3 (08:34→16:30)
[2016-08-19] MEDS: ASCORBIC ACID 500 MG TABLET GT SCH ×2 (08:36→16:30)
[2016-08-19] MEDS: GLYCOPYRROLATE 1 MG TABLET GT SCH ×2 (08:36→16:30)
[2016-08-19] MEDS: PYRIDOXINE HCL 50 MG TABLET GT SCH (08:36)
[2016-08-19] MEDS: POTASSIUM CHLORIDE 20 MEQ POWDER PACKET GT SCH ×2 (08:36→16:30)
[2016-08-19] MEDS: ISONIAZID (300 MG) 300 MG TABLET GT SCH (08:36)
[2016-08-19] MEDS: LEVETIRACETAM SOL (5 ML) 100 MG/ML UDC GT SCH ×2 (08:36→21:07)
[2016-08-19] MEDS: BACLOFEN (10 MG) 10 MG TABLET GT SCH ×3 (08:36→16:30)
[2016-08-19] MEDS: MULTIVITAMINS,THERAGRAN 1 UDTAB TABLET GT SCH (08:36)
[2016-08-19] MEDS: Z GUARD REMEDY 4 OZ OINT TP SCH ×2 (09:00→21:07)
[2016-08-19] MEDS: HYDROGEN PEROXIDE 480 ML BOTTLE TP SCH ×2 (09:00→21:07)
[2016-08-19] MEDS: CEFTRIAXONE 1 G in IV D5W 50 ML IV SCH (13:00)
--- NOTE | 2016-08-19 14:19 | NUR ---
Francois from [employer] came to see resident for wheelchair measurements.
[2016-08-19 20:11] VITALS: BP 109/72
[2016-08-19] MEDS: SERTRALINE HCL 25 MG TABLET GT SCH (21:07)
[2016-08-19] MEDS: INSULIN DETEMIR 100 UNIT/ML CARTRIDGE SQ SCH (21:37)
[2016-08-20] MEDS: GLYTROL 1,000 ML BAG GT PRN ×2 (00:16→20:03)
[2016-08-20] MEDS: ALBUTEROL FS 2.5 MG/3 ML VIAL.NEB NEB SCH ×4 (01:49→19:30)
[2016-08-20] MEDS: IPRATROPIUM NEB FS 0.5 MG/2.5 ML AMPUL.NEB NEB SCH ×4 (01:49→19:30)
[2016-08-20] MEDS: POLYVINYL ALCOHOL 15 ML BOTTLE EACHEYE SCH ×3 (05:22→18:39)
[2016-08-20] MEDS: PANTOPRAZOLE 40 MG/PACK PACK GT SCH (05:22)
[2016-08-20] MEDS: BLOOD SUGAR DIAGNOSTIC 1 EACH STRIP IN SCH ×2 (05:22→18:40)
[2016-08-20] MEDS: INSULIN LISPRO/ASPART 100 UNIT/ML CARTRIDGE SQ PRN (05:23)
[2016-08-20 07:54] VITALS: BP 101/64
[2016-08-20] MEDS: FERROUS SULFATE - FOR SA ONLY 330 MG/7.5 ML UDC GT SCH ×3 (08:13→17:00)
[2016-08-20] MEDS: DOCUSATE SODIUM LIQ 100 MG/10 ML UDC GT SCH ×2 (08:13→17:00)
[2016-08-20] MEDS: LEVETIRACETAM SOL (5 ML) 100 MG/ML UDC GT SCH ×2 (08:14→21:42)
[2016-08-20] MEDS: ISONIAZID (300 MG) 300 MG TABLET GT SCH (08:14)
[2016-08-20] MEDS: ASCORBIC ACID 500 MG TABLET GT SCH ×2 (08:15→17:00)
[2016-08-20] MEDS: MULTIVITAMINS,THERAGRAN 1 UDTAB TABLET GT SCH (08:16)
[2016-08-20] MEDS: PYRIDOXINE HCL 50 MG TABLET GT SCH (08:16)
[2016-08-20] MEDS: HYDROGEN PEROXIDE 480 ML BOTTLE TP SCH ×2 (08:17→21:42)
[2016-08-20] MEDS: Z GUARD REMEDY 4 OZ OINT TP SCH ×2 (08:17→21:42)
[2016-08-20] MEDS: POTASSIUM CHLORIDE 20 MEQ POWDER PACKET GT SCH ×2 (08:19→17:00)
[2016-08-20] MEDS: BACLOFEN (10 MG) 10 MG TABLET GT SCH ×3 (08:22→17:00)
[2016-08-20] MEDS: GLYCOPYRROLATE 1 MG TABLET GT SCH ×2 (08:22→17:00)
[2016-08-20] MEDS: CEFTRIAXONE 1 G in IV D5W 50 ML IV SCH (14:00)
[2016-08-20] MEDS: SERTRALINE HCL 25 MG TABLET GT SCH (21:42)
[2016-08-20] MEDS: INSULIN DETEMIR 100 UNIT/ML CARTRIDGE SQ SCH (21:43)
[2016-08-21] MEDS: POLYVINYL ALCOHOL 15 ML BOTTLE EACHEYE SCH ×5 (00:26→23:50)
[2016-08-21] MEDS: IPRATROPIUM NEB FS 0.5 MG/2.5 ML AMPUL.NEB NEB SCH ×4 (00:59→20:06)
[2016-08-21] MEDS: ALBUTEROL FS 2.5 MG/3 ML VIAL.NEB NEB SCH ×4 (00:59→20:06)
[2016-08-21] MEDS: INSULIN LISPRO/ASPART 100 UNIT/ML CARTRIDGE SQ PRN ×2 (06:50→17:51)
[2016-08-21] MEDS: BLOOD SUGAR DIAGNOSTIC 1 EACH STRIP IN SCH ×2 (06:50→17:50)
[2016-08-21] MEDS: PANTOPRAZOLE 40 MG/PACK PACK GT SCH (06:50)
[2016-08-21] MEDS: DOCUSATE SODIUM LIQ 100 MG/10 ML UDC GT SCH ×2 (09:43→16:00)
[2016-08-21] MEDS: FERROUS SULFATE - FOR SA ONLY 330 MG/7.5 ML UDC GT SCH ×3 (09:43→16:00)
[2016-08-21] MEDS: ISONIAZID (300 MG) 300 MG TABLET GT SCH (09:43)
[2016-08-21] MEDS: LEVETIRACETAM SOL (5 ML) 100 MG/ML UDC GT SCH ×2 (09:43→21:51)
[2016-08-21] MEDS: GLYCOPYRROLATE 1 MG TABLET GT SCH ×2 (09:43→16:00)
[2016-08-21] MEDS: POTASSIUM CHLORIDE 20 MEQ POWDER PACKET GT SCH ×2 (09:44→16:00)
[2016-08-21] MEDS: BACLOFEN (10 MG) 10 MG TABLET GT SCH ×3 (09:45→16:01)
[2016-08-21] MEDS: PYRIDOXINE HCL 50 MG TABLET GT SCH (09:45)
[2016-08-21] MEDS: ASCORBIC ACID 500 MG TABLET GT SCH ×2 (09:45→16:01)
[2016-08-21] MEDS: Z GUARD REMEDY 4 OZ OINT TP SCH ×2 (09:45→21:51)
[2016-08-21] MEDS: MULTIVITAMINS,THERAGRAN 1 UDTAB TABLET GT SCH (09:45)
[2016-08-21] MEDS: HYDROGEN PEROXIDE 480 ML BOTTLE TP SCH ×2 (09:45→21:51)
[2016-08-21] MEDS: ACETAMINOPHEN 650 MG/20 ML UDC- FOR SA PATIENTS ONLY GT PRN (09:47)
[2016-08-21] MEDS: CEFTRIAXONE 1 G in IV D5W 50 ML IV SCH (14:00)
[2016-08-21] MEDS: GLYTROL 1,000 ML BAG GT PRN (15:57)
[2016-08-21 19:30] VITALS: BP 114/73
[2016-08-21] MEDS: SERTRALINE HCL 25 MG TABLET GT SCH (21:51)
[2016-08-21] MEDS: INSULIN DETEMIR 100 UNIT/ML CARTRIDGE SQ SCH (21:52)
[2016-08-22] MEDS: IPRATROPIUM NEB FS 0.5 MG/2.5 ML AMPUL.NEB NEB SCH ×4 (02:22→19:43)
[2016-08-22] MEDS: ALBUTEROL FS 2.5 MG/3 ML VIAL.NEB NEB SCH ×4 (02:22→19:43)
[2016-08-22] MEDS: POLYVINYL ALCOHOL 15 ML BOTTLE EACHEYE SCH ×3 (05:45→17:52)
[2016-08-22] MEDS: BLOOD SUGAR DIAGNOSTIC 1 EACH STRIP IN SCH ×2 (05:45→17:52)
[2016-08-22] MEDS: PANTOPRAZOLE 40 MG/PACK PACK GT SCH (05:45)
[2016-08-22] MEDS: INSULIN LISPRO/ASPART 100 UNIT/ML CARTRIDGE SQ PRN (05:45)
[2016-08-22 07:44] VITALS: BP 120/77
[2016-08-22] MEDS: LEVETIRACETAM SOL (5 ML) 100 MG/ML UDC GT SCH ×2 (08:13→20:04)
[2016-08-22] MEDS: FERROUS SULFATE - FOR SA ONLY 330 MG/7.5 ML UDC GT SCH ×3 (08:13→16:31)
[2016-08-22] MEDS: BACLOFEN (10 MG) 10 MG TABLET GT SCH ×3 (08:13→16:31)
[2016-08-22] MEDS: GLYCOPYRROLATE 1 MG TABLET GT SCH ×2 (08:13→16:32)
[2016-08-22] MEDS: POTASSIUM CHLORIDE 20 MEQ POWDER PACKET GT SCH ×2 (08:13→16:31)
[2016-08-22] MEDS: DOCUSATE SODIUM LIQ 100 MG/10 ML UDC GT SCH ×2 (08:13→16:31)
[2016-08-22] MEDS: MULTIVITAMINS,THERAGRAN 1 UDTAB TABLET GT SCH (08:13)
[2016-08-22] MEDS: ISONIAZID (300 MG) 300 MG TABLET GT SCH (08:13)
[2016-08-22] MEDS: HYDROGEN PEROXIDE 480 ML BOTTLE TP SCH ×2 (08:14→20:05)
[2016-08-22] MEDS: ASCORBIC ACID 500 MG TABLET GT SCH ×2 (08:14→16:31)
[2016-08-22] MEDS: Z GUARD REMEDY 4 OZ OINT TP SCH ×2 (08:14→20:05)
[2016-08-22] MEDS: PYRIDOXINE HCL 50 MG TABLET GT SCH (08:14)
[2016-08-22] MEDS: CEFTRIAXONE 1 G in IV D5W 50 ML IV SCH (14:32)
[2016-08-22] MEDS: GLYTROL 1,000 ML BAG GT PRN (15:44)
[2016-08-22] MEDS: POLYETHYLENE GLYCOL 3350 17 GM POWD.PACK GT PRN (15:45)
[2016-08-22 20:15] VITALS: BP 118/78
[2016-08-22] MEDS: INSULIN DETEMIR 100 UNIT/ML CARTRIDGE SQ SCH (21:24)
[2016-08-22] MEDS: SERTRALINE HCL 25 MG TABLET GT SCH (21:24)
[2016-08-23] MEDS: POLYVINYL ALCOHOL 15 ML BOTTLE EACHEYE SCH ×5 (00:19→23:24)
[2016-08-23] MEDS: IPRATROPIUM NEB FS 0.5 MG/2.5 ML AMPUL.NEB NEB SCH ×4 (00:45→19:58)
[2016-08-23] MEDS: ALBUTEROL FS 2.5 MG/3 ML VIAL.NEB NEB SCH ×4 (00:45→19:58)
[2016-08-23] MEDS: PANTOPRAZOLE 40 MG/PACK PACK GT SCH (05:12)
[2016-08-23] MEDS: BLOOD SUGAR DIAGNOSTIC 1 EACH STRIP IN SCH ×2 (05:15→17:37)
[2016-08-23 07:56] VITALS: BP 106/72
[2016-08-23] MEDS: DOCUSATE SODIUM LIQ 100 MG/10 ML UDC GT SCH ×2 (08:55→17:33)
[2016-08-23] MEDS: Z GUARD REMEDY 4 OZ OINT TP SCH ×2 (09:00→21:13)
[2016-08-23] MEDS: HYDROGEN PEROXIDE 480 ML BOTTLE TP SCH ×2 (09:00→21:13)
[2016-08-23] MEDS: PYRIDOXINE HCL 50 MG TABLET GT SCH (09:16)
[2016-08-23] MEDS: LEVETIRACETAM SOL (5 ML) 100 MG/ML UDC GT SCH ×2 (09:16→21:13)
[2016-08-23] MEDS: BACLOFEN (10 MG) 10 MG TABLET GT SCH ×3 (09:16→17:34)
[2016-08-23] MEDS: MULTIVITAMINS,THERAGRAN 1 UDTAB TABLET GT SCH (09:16)
[2016-08-23] MEDS: FERROUS SULFATE - FOR SA ONLY 330 MG/7.5 ML UDC GT SCH ×3 (09:16→17:33)
[2016-08-23] MEDS: ISONIAZID (300 MG) 300 MG TABLET GT SCH (09:16)
[2016-08-23] MEDS: GLYCOPYRROLATE 1 MG TABLET GT SCH ×2 (09:16→17:33)
[2016-08-23] MEDS: POTASSIUM CHLORIDE 20 MEQ POWDER PACKET GT SCH ×2 (09:16→17:33)
[2016-08-23] MEDS: ASCORBIC ACID 500 MG TABLET GT SCH ×2 (09:16→17:34)
--- NOTE | 2016-08-23 10:57 | NUR ---
Seen by Dr. Alvarez. Pt has a sore on the right corner of her mouth. Received order to apply Acyclovir cream BID x 7 days.
--- NOTE | 2016-08-23 13:11 | NUR ---
Received order to change Acyclovir to Abreva 5 times a day for one week for the sore on the right corner of her lips.
[2016-08-23] MEDS: CEFTRIAXONE 1 G in IV D5W 50 ML IV SCH (13:42)
--- NOTE | 2016-08-23 16:08 | NUR ---
ASLEEP,AROUSABLE.TOLERATING CURRENT VENTILATOR SETTINGS.B/S ARE EQUAL CRACKLES SECRETIONS,YELLOWISH. SKIN WARM DRY TO TOUCH COLOR IS FAIR.VENTILATOR ALARMS ARE AUDIBLE AND FUNCTIONAL.CONTINUE VENTILATOR SUPPORT. COLE ESCOBAR
--- NOTE | 2016-08-23 16:13 | NUR ---
PATIENT ALSO WAS TAKEN TO SHOWER WITH THE VENTILATOR .NO RESP. DISTRESS.AMBU BAG WAS WITH THE PATIENT. COLE ESCOBAR Addendum: 08/23/16 at 1614 by ANDREI LOPEZ RT Amended: Links added.
[2016-08-23] MEDS ORDERED: ACYCLOVIR 5% CREAM 5 GM TUBE TP SCH (17:00)
[2016-08-23] MEDS: INSULIN LISPRO/ASPART 100 UNIT/ML CARTRIDGE SQ PRN (17:37)
[2016-08-23 20:08] VITALS: BP 98/61
[2016-08-23] MEDS: SERTRALINE HCL 25 MG TABLET GT SCH (21:13)
[2016-08-23] MEDS: INSULIN DETEMIR 100 UNIT/ML CARTRIDGE SQ SCH (21:13)
[2016-08-24] MEDS: ALBUTEROL FS 2.5 MG/3 ML VIAL.NEB NEB SCH ×4 (01:48→20:01)
[2016-08-24] MEDS: IPRATROPIUM NEB FS 0.5 MG/2.5 ML AMPUL.NEB NEB SCH ×4 (01:48→20:01)
[2016-08-24] MEDS: POLYVINYL ALCOHOL 15 ML BOTTLE EACHEYE SCH ×3 (05:02→17:05)
[2016-08-24] MEDS: PANTOPRAZOLE 40 MG/PACK PACK GT SCH (05:02)
[2016-08-24] MEDS: INSULIN LISPRO/ASPART 100 UNIT/ML CARTRIDGE SQ PRN ×2 (05:23→17:25)
[2016-08-24] MEDS: BLOOD SUGAR DIAGNOSTIC 1 EACH STRIP IN SCH ×2 (05:23→17:25)
[2016-08-24 07:48] VITALS: BP 127/79
[2016-08-24] MEDS: MULTIVITAMINS,THERAGRAN 1 UDTAB TABLET GT SCH (08:17)
[2016-08-24] MEDS: BACLOFEN (10 MG) 10 MG TABLET GT SCH ×3 (08:17→17:04)
[2016-08-24] MEDS: ISONIAZID (300 MG) 300 MG TABLET GT SCH (08:17)
[2016-08-24] MEDS: ASCORBIC ACID 500 MG TABLET GT SCH ×2 (08:17→17:04)
[2016-08-24] MEDS: GLYCOPYRROLATE 1 MG TABLET GT SCH ×2 (08:17→17:04)
[2016-08-24] MEDS: PYRIDOXINE HCL 50 MG TABLET GT SCH (08:17)
[2016-08-24] MEDS: LEVETIRACETAM SOL (5 ML) 100 MG/ML UDC GT SCH ×2 (08:17→20:27)
[2016-08-24] MEDS: FERROUS SULFATE - FOR SA ONLY 330 MG/7.5 ML UDC GT SCH ×3 (08:17→17:04)
[2016-08-24] MEDS: DOCUSATE SODIUM LIQ 100 MG/10 ML UDC GT SCH ×2 (08:17→17:04)
[2016-08-24] MEDS: POTASSIUM CHLORIDE 20 MEQ POWDER PACKET GT SCH ×2 (08:17→17:04)
[2016-08-24] MEDS: HYDROGEN PEROXIDE 480 ML BOTTLE TP SCH ×2 (10:00→20:27)
[2016-08-24] MEDS: Z GUARD REMEDY 4 OZ OINT TP SCH ×2 (10:00→20:27)
[2016-08-24] MEDS: DOCOSANOL TP SCH ×2 (11:00→21:00)
[2016-08-24] MEDS: CEFTRIAXONE 1 G in IV D5W 50 ML IV SCH (14:00)
[2016-08-24 19:39] VITALS: BP 101/66
[2016-08-24] MEDS: SERTRALINE HCL 25 MG TABLET GT SCH (21:26)
[2016-08-24] MEDS: INSULIN DETEMIR 100 UNIT/ML CARTRIDGE SQ SCH (21:27)
[2016-08-25] MEDS: POLYVINYL ALCOHOL 15 ML BOTTLE EACHEYE SCH ×5 (00:05→23:49)
[2016-08-25] MEDS: ALBUTEROL FS 2.5 MG/3 ML VIAL.NEB NEB SCH ×4 (02:04→20:18)
[2016-08-25] MEDS: IPRATROPIUM NEB FS 0.5 MG/2.5 ML AMPUL.NEB NEB SCH ×4 (02:05→20:18)
[2016-08-25] MEDS: PANTOPRAZOLE 40 MG/PACK PACK GT SCH (05:18)
[2016-08-25] MEDS: BLOOD SUGAR DIAGNOSTIC 1 EACH STRIP IN SCH ×2 (05:19→18:25)
[2016-08-25] MEDS: DOCOSANOL TP SCH ×5 (07:00→21:30)
[2016-08-25 07:52] VITALS: BP 106/60
[2016-08-25] MEDS: ISONIAZID (300 MG) 300 MG TABLET GT SCH (08:34)
[2016-08-25] MEDS: FERROUS SULFATE - FOR SA ONLY 330 MG/7.5 ML UDC GT SCH ×3 (08:34→17:00)
[2016-08-25] MEDS: DOCUSATE SODIUM LIQ 100 MG/10 ML UDC GT SCH ×2 (08:34→17:00)
[2016-08-25] MEDS: GLYCOPYRROLATE 1 MG TABLET GT SCH ×2 (08:34→17:00)
[2016-08-25] MEDS: POTASSIUM CHLORIDE 20 MEQ POWDER PACKET GT SCH ×2 (08:35→17:00)
[2016-08-25] MEDS: ASCORBIC ACID 500 MG TABLET GT SCH ×2 (08:35→17:00)
[2016-08-25] MEDS: MULTIVITAMINS,THERAGRAN 1 UDTAB TABLET GT SCH (08:35)
[2016-08-25] MEDS: PYRIDOXINE HCL 50 MG TABLET GT SCH (08:35)
[2016-08-25] MEDS: BACLOFEN (10 MG) 10 MG TABLET GT SCH ×3 (08:35→17:00)
[2016-08-25] MEDS: LEVETIRACETAM SOL (5 ML) 100 MG/ML UDC GT SCH ×2 (08:35→21:27)
[2016-08-25] MEDS: Z GUARD REMEDY 4 OZ OINT TP SCH ×2 (08:36→21:31)
[2016-08-25] MEDS: HYDROGEN PEROXIDE 480 ML BOTTLE TP SCH ×2 (08:36→21:27)
[2016-08-25] MEDS: ACETAMINOPHEN 650 MG/20 ML UDC- FOR SA PATIENTS ONLY GT PRN (08:40)
[2016-08-25] MEDS: CEFTRIAXONE 1 G in IV D5W 50 ML IV SCH (14:17)
[2016-08-25] MEDS: INSULIN LISPRO/ASPART 100 UNIT/ML CARTRIDGE SQ PRN (18:25)
[2016-08-25 19:48] VITALS: BP 98/68
[2016-08-25] MEDS: GLYTROL 1,000 ML BAG GT PRN (20:30)
[2016-08-25] MEDS: SERTRALINE HCL 25 MG TABLET GT SCH (21:27)
[2016-08-25] MEDS: INSULIN DETEMIR 100 UNIT/ML CARTRIDGE SQ SCH (21:32)
[2016-08-26] MEDS: ALBUTEROL FS 2.5 MG/3 ML VIAL.NEB NEB SCH ×4 (02:03→20:09)
[2016-08-26] MEDS: IPRATROPIUM NEB FS 0.5 MG/2.5 ML AMPUL.NEB NEB SCH ×4 (02:03→20:09)
[2016-08-26] MEDS: PANTOPRAZOLE 40 MG/PACK PACK GT SCH (06:25)
[2016-08-26] MEDS: POLYVINYL ALCOHOL 15 ML BOTTLE EACHEYE SCH ×3 (06:25→17:59)
[2016-08-26] MEDS: BLOOD SUGAR DIAGNOSTIC 1 EACH STRIP IN SCH ×2 (06:25→17:59)
[2016-08-26] MEDS: INSULIN LISPRO/ASPART 100 UNIT/ML CARTRIDGE SQ PRN ×2 (06:26→17:58)
[2016-08-26] MEDS: DOCOSANOL TP SCH ×5 (07:00→21:06)
[2016-08-26 08:18] VITALS: BP 110/61
[2016-08-26] MEDS: FERROUS SULFATE - FOR SA ONLY 330 MG/7.5 ML UDC GT SCH ×3 (08:28→16:42)
[2016-08-26] MEDS: ISONIAZID (300 MG) 300 MG TABLET GT SCH (08:28)
[2016-08-26] MEDS: PYRIDOXINE HCL 50 MG TABLET GT SCH (08:28)
[2016-08-26] MEDS: LEVETIRACETAM SOL (5 ML) 100 MG/ML UDC GT SCH ×2 (08:28→21:06)
[2016-08-26] MEDS: DOCUSATE SODIUM LIQ 100 MG/10 ML UDC GT SCH ×2 (08:28→16:42)
[2016-08-26] MEDS: MULTIVITAMINS,THERAGRAN 1 UDTAB TABLET GT SCH (08:28)
[2016-08-26] MEDS: POTASSIUM CHLORIDE 20 MEQ POWDER PACKET GT SCH ×2 (08:28→16:42)
[2016-08-26] MEDS: ASCORBIC ACID 500 MG TABLET GT SCH ×2 (08:28→16:42)
[2016-08-26] MEDS: BACLOFEN (10 MG) 10 MG TABLET GT SCH ×3 (08:28→16:42)
[2016-08-26] MEDS: GLYCOPYRROLATE 1 MG TABLET GT SCH ×2 (08:28→16:42)
[2016-08-26] MEDS: Z GUARD REMEDY 4 OZ OINT TP SCH ×2 (13:10→21:06)
[2016-08-26] MEDS: HYDROGEN PEROXIDE 480 ML BOTTLE TP SCH ×2 (13:10→21:06)
[2016-08-26] MEDS: CEFTRIAXONE 1 G in IV D5W 50 ML IV SCH (14:00)
--- NOTE | 2016-08-26 18:28 | NUR ---
Head circumference measured 54cm.
[2016-08-26 19:55] VITALS: BP 97/61
[2016-08-26] MEDS: SERTRALINE HCL 25 MG TABLET GT SCH (21:06)
[2016-08-26] MEDS: INSULIN DETEMIR 100 UNIT/ML CARTRIDGE SQ SCH (21:07)
[2016-08-27] MEDS: POLYVINYL ALCOHOL 15 ML BOTTLE EACHEYE SCH ×4 (00:36→17:30)
[2016-08-27] MEDS: IPRATROPIUM NEB FS 0.5 MG/2.5 ML AMPUL.NEB NEB SCH ×4 (02:29→19:30)
[2016-08-27] MEDS: ALBUTEROL FS 2.5 MG/3 ML VIAL.NEB NEB SCH ×4 (02:29→19:30)
[2016-08-27] MEDS: BLOOD SUGAR DIAGNOSTIC 1 EACH STRIP IN SCH ×2 (06:07→17:22)
[2016-08-27] MEDS: PANTOPRAZOLE 40 MG/PACK PACK GT SCH (06:07)
[2016-08-27] MEDS: INSULIN LISPRO/ASPART 100 UNIT/ML CARTRIDGE SQ PRN ×2 (06:09→17:23)
[2016-08-27] MEDS: DOCOSANOL TP SCH ×5 (07:00→20:13)
[2016-08-27 07:43] VITALS: BP 96/66
[2016-08-27] MEDS: ISONIAZID (300 MG) 300 MG TABLET GT SCH (08:48)
[2016-08-27] MEDS: PYRIDOXINE HCL 50 MG TABLET GT SCH (08:48)
[2016-08-27] MEDS: LEVETIRACETAM SOL (5 ML) 100 MG/ML UDC GT SCH ×2 (08:48→20:13)
[2016-08-27] MEDS: DOCUSATE SODIUM LIQ 100 MG/10 ML UDC GT SCH ×2 (08:48→17:30)
[2016-08-27] MEDS: GLYCOPYRROLATE 1 MG TABLET GT SCH ×2 (08:48→17:30)
[2016-08-27] MEDS: BACLOFEN (10 MG) 10 MG TABLET GT SCH ×3 (08:48→17:30)
[2016-08-27] MEDS: MULTIVITAMINS,THERAGRAN 1 UDTAB TABLET GT SCH (08:48)
[2016-08-27] MEDS: POTASSIUM CHLORIDE 20 MEQ POWDER PACKET GT SCH ×2 (08:48→17:30)
[2016-08-27] MEDS: FERROUS SULFATE - FOR SA ONLY 330 MG/7.5 ML UDC GT SCH ×3 (08:48→17:30)
[2016-08-27] MEDS: ASCORBIC ACID 500 MG TABLET GT SCH ×2 (08:49→17:30)
[2016-08-27] MEDS: Z GUARD REMEDY 4 OZ OINT TP SCH ×2 (08:49→20:13)
[2016-08-27] MEDS: HYDROGEN PEROXIDE 480 ML BOTTLE TP SCH ×2 (08:49→20:13)
[2016-08-27] MEDS: GLYTROL 1,000 ML BAG GT PRN (08:56)
--- NOTE | 2016-08-27 13:47 | NUR ---
IDT meeting held, reviewed current medication and treatment orders. Resident currently on ventilator due to episode of desaturation and received IVF for hypotension. She is receiving IV ATB Rocephin for UTI, last dose today, no adverse reaction noted. No plan to wean resident off the ventilator at this time.
[2016-08-27] MEDS: CEFTRIAXONE 1 G in IV D5W 50 ML IV SCH (14:00)
[2016-08-27 19:47] VITALS: BP 104/68
[2016-08-27] MEDS: SERTRALINE HCL 25 MG TABLET GT SCH (22:12)
[2016-08-27] MEDS: INSULIN DETEMIR 100 UNIT/ML CARTRIDGE SQ SCH (22:16)
[2016-08-28] MEDS: POLYVINYL ALCOHOL 15 ML BOTTLE EACHEYE SCH ×5 (00:01→23:18)
[2016-08-28] MEDS: ALBUTEROL FS 2.5 MG/3 ML VIAL.NEB NEB SCH ×4 (02:03→19:37)
[2016-08-28] MEDS: IPRATROPIUM NEB FS 0.5 MG/2.5 ML AMPUL.NEB NEB SCH ×4 (02:03→19:37)
[2016-08-28] MEDS: PANTOPRAZOLE 40 MG/PACK PACK GT SCH (05:06)
[2016-08-28] MEDS: BLOOD SUGAR DIAGNOSTIC 1 EACH STRIP IN SCH ×2 (05:15→17:46)
[2016-08-28] MEDS: DOCOSANOL TP SCH ×5 (07:00→21:38)
[2016-08-28 07:44] VITALS: BP 99/59
[2016-08-28] MEDS: FERROUS SULFATE - FOR SA ONLY 330 MG/7.5 ML UDC GT SCH ×3 (08:20→16:50)
[2016-08-28] MEDS: DOCUSATE SODIUM LIQ 100 MG/10 ML UDC GT SCH ×2 (08:20→16:50)
[2016-08-28] MEDS: GLYCOPYRROLATE 1 MG TABLET GT SCH ×2 (08:20→16:50)
[2016-08-28] MEDS: LEVETIRACETAM SOL (5 ML) 100 MG/ML UDC GT SCH ×2 (08:22→21:38)
[2016-08-28] MEDS: ISONIAZID (300 MG) 300 MG TABLET GT SCH (08:22)
[2016-08-28] MEDS: ACETAMINOPHEN 650 MG/20 ML UDC- FOR SA PATIENTS ONLY GT PRN (08:23)
[2016-08-28] MEDS: MULTIVITAMINS,THERAGRAN 1 UDTAB TABLET GT SCH (08:23)
[2016-08-28] MEDS: HYDROGEN PEROXIDE 480 ML BOTTLE TP SCH ×2 (08:23→21:38)
[2016-08-28] MEDS: POTASSIUM CHLORIDE 20 MEQ POWDER PACKET GT SCH ×2 (08:23→16:50)
[2016-08-28] MEDS: Z GUARD REMEDY 4 OZ OINT TP SCH ×2 (08:23→21:38)
[2016-08-28] MEDS: BACLOFEN (10 MG) 10 MG TABLET GT SCH ×3 (08:23→16:50)
[2016-08-28] MEDS: PYRIDOXINE HCL 50 MG TABLET GT SCH (08:23)
[2016-08-28] MEDS: ASCORBIC ACID 500 MG TABLET GT SCH ×2 (08:23→16:50)
[2016-08-28] MEDS: INSULIN LISPRO/ASPART 100 UNIT/ML CARTRIDGE SQ PRN (17:47)
[2016-08-28 19:53] VITALS: BP 106/62
[2016-08-28] MEDS: SERTRALINE HCL 25 MG TABLET GT SCH (21:38)
[2016-08-28] MEDS: INSULIN DETEMIR 100 UNIT/ML CARTRIDGE SQ SCH (21:39)
[2016-08-28] MEDS: GLYTROL 1,000 ML BAG GT PRN (23:18)
[2016-08-29] MEDS: ALBUTEROL FS 2.5 MG/3 ML VIAL.NEB NEB SCH ×4 (01:37→18:55)
[2016-08-29] MEDS: IPRATROPIUM NEB FS 0.5 MG/2.5 ML AMPUL.NEB NEB SCH ×4 (01:37→18:55)
[2016-08-29] MEDS: PANTOPRAZOLE 40 MG/PACK PACK GT SCH (05:34)
[2016-08-29] MEDS: BLOOD SUGAR DIAGNOSTIC 1 EACH STRIP IN SCH ×2 (05:34→17:56)
[2016-08-29] MEDS: POLYVINYL ALCOHOL 15 ML BOTTLE EACHEYE SCH ×3 (05:34→17:56)
[2016-08-29] MEDS: INSULIN LISPRO/ASPART 100 UNIT/ML CARTRIDGE SQ PRN (05:34)
[2016-08-29] MEDS: DOCOSANOL TP SCH ×5 (06:17→20:18)
[2016-08-29] MEDS: POTASSIUM CHLORIDE 20 MEQ POWDER PACKET GT SCH ×2 (08:13→16:22)
[2016-08-29] MEDS: LEVETIRACETAM SOL (5 ML) 100 MG/ML UDC GT SCH ×2 (08:13→20:17)
[2016-08-29] MEDS: ASCORBIC ACID 500 MG TABLET GT SCH ×2 (08:13→16:23)
[2016-08-29] MEDS: FERROUS SULFATE - FOR SA ONLY 330 MG/7.5 ML UDC GT SCH ×3 (08:13→16:22)
[2016-08-29] MEDS: BACLOFEN (10 MG) 10 MG TABLET GT SCH ×3 (08:13→16:22)
[2016-08-29] MEDS: MULTIVITAMINS,THERAGRAN 1 UDTAB TABLET GT SCH (08:13)
[2016-08-29] MEDS: DOCUSATE SODIUM LIQ 100 MG/10 ML UDC GT SCH ×2 (08:13→16:22)
[2016-08-29] MEDS: PYRIDOXINE HCL 50 MG TABLET GT SCH (08:13)
[2016-08-29] MEDS: ISONIAZID (300 MG) 300 MG TABLET GT SCH (08:13)
[2016-08-29] MEDS: GLYCOPYRROLATE 1 MG TABLET GT SCH ×2 (08:13→16:23)
[2016-08-29 08:15] VITALS: BP 101/70
[2016-08-29] MEDS: HYDROGEN PEROXIDE 480 ML BOTTLE TP SCH ×2 (09:00→20:17)
[2016-08-29] MEDS: Z GUARD REMEDY 4 OZ OINT TP SCH ×2 (09:00→20:18)
[2016-08-29 19:49] VITALS: BP 100/72
[2016-08-29] MEDS: SERTRALINE HCL 25 MG TABLET GT SCH (21:34)
[2016-08-29] MEDS: INSULIN DETEMIR 100 UNIT/ML CARTRIDGE SQ SCH (21:35)
[2016-08-30] MEDS: POLYVINYL ALCOHOL 15 ML BOTTLE EACHEYE SCH ×4 (00:18→18:24)
[2016-08-30] MEDS: IPRATROPIUM NEB FS 0.5 MG/2.5 ML AMPUL.NEB NEB SCH ×4 (01:12→19:37)
[2016-08-30] MEDS: ALBUTEROL FS 2.5 MG/3 ML VIAL.NEB NEB SCH ×4 (01:12→19:37)
[2016-08-30] MEDS: DOCOSANOL TP SCH ×5 (05:08→20:08)
[2016-08-30] MEDS: BLOOD SUGAR DIAGNOSTIC 1 EACH STRIP IN SCH ×2 (05:08→18:24)
[2016-08-30] MEDS: PANTOPRAZOLE 40 MG/PACK PACK GT SCH (05:08)
[2016-08-30 08:10] VITALS: BP 104/69
[2016-08-30] MEDS: GLYCOPYRROLATE 1 MG TABLET GT SCH ×2 (08:20→17:27)
[2016-08-30] MEDS: DOCUSATE SODIUM LIQ 100 MG/10 ML UDC GT SCH ×2 (08:20→17:27)
[2016-08-30] MEDS: LEVETIRACETAM SOL (5 ML) 100 MG/ML UDC GT SCH ×2 (08:20→20:08)
[2016-08-30] MEDS: FERROUS SULFATE - FOR SA ONLY 330 MG/7.5 ML UDC GT SCH ×3 (08:20→17:27)
[2016-08-30] MEDS: ISONIAZID (300 MG) 300 MG TABLET GT SCH (08:20)
[2016-08-30] MEDS: PYRIDOXINE HCL 50 MG TABLET GT SCH (08:21)
[2016-08-30] MEDS: MULTIVITAMINS,THERAGRAN 1 UDTAB TABLET GT SCH (08:21)
[2016-08-30] MEDS: BACLOFEN (10 MG) 10 MG TABLET GT SCH ×3 (08:21→17:27)
[2016-08-30] MEDS: POTASSIUM CHLORIDE 20 MEQ POWDER PACKET GT SCH ×2 (08:21→17:27)
[2016-08-30] MEDS: ASCORBIC ACID 500 MG TABLET GT SCH ×2 (08:21→17:27)
[2016-08-30 08:53] LABS: ALBUMIN 2.9 g/dL (3.4-5.0); BILIRUBIN,DIRECT 0.1 mg/dL (0.0-0.2); BILIRUBIN,TOTAL 0.3 mg/dL (0.2-1.0); TOTAL PROTEIN, SERUM 7.5 g/dL (6.4-8.2)
[2016-08-30] MEDS: HYDROGEN PEROXIDE 480 ML BOTTLE TP SCH ×2 (11:00→20:08)
[2016-08-30] MEDS: Z GUARD REMEDY 4 OZ OINT TP SCH ×2 (11:00→20:08)
[2016-08-30] MEDS: INSULIN LISPRO/ASPART 100 UNIT/ML CARTRIDGE SQ PRN (18:25)
[2016-08-30 19:54] VITALS: BP 107/72
[2016-08-30] MEDS: SERTRALINE HCL 25 MG TABLET GT SCH (21:17)
[2016-08-30] MEDS: INSULIN DETEMIR 100 UNIT/ML CARTRIDGE SQ SCH (21:18)
[2016-08-31] MEDS: POLYVINYL ALCOHOL 15 ML BOTTLE EACHEYE SCH ×4 (00:24→17:58)
[2016-08-31] MEDS: IPRATROPIUM NEB FS 0.5 MG/2.5 ML AMPUL.NEB NEB SCH ×4 (01:16→19:51)
[2016-08-31] MEDS: ALBUTEROL FS 2.5 MG/3 ML VIAL.NEB NEB SCH ×4 (01:16→19:51)
[2016-08-31] MEDS: BLOOD SUGAR DIAGNOSTIC 1 EACH STRIP IN SCH ×2 (05:17→17:58)
[2016-08-31] MEDS: PANTOPRAZOLE 40 MG/PACK PACK GT SCH (05:17)
[2016-08-31] MEDS: DOCOSANOL TP SCH (07:00)
[2016-08-31] MEDS: GLYCOPYRROLATE 1 MG TABLET GT SCH ×2 (08:25→16:59)
[2016-08-31] MEDS: FERROUS SULFATE - FOR SA ONLY 330 MG/7.5 ML UDC GT SCH ×3 (08:25→16:59)
[2016-08-31] MEDS: ISONIAZID (300 MG) 300 MG TABLET GT SCH (08:25)
[2016-08-31] MEDS: DOCUSATE SODIUM LIQ 100 MG/10 ML UDC GT SCH ×2 (08:25→16:59)
[2016-08-31] MEDS: POTASSIUM CHLORIDE 20 MEQ POWDER PACKET GT SCH ×2 (08:26→16:59)
[2016-08-31] MEDS: LEVETIRACETAM SOL (5 ML) 100 MG/ML UDC GT SCH ×2 (08:26→20:16)
[2016-08-31] MEDS: PYRIDOXINE HCL 50 MG TABLET GT SCH (08:26)
[2016-08-31] MEDS: MULTIVITAMINS,THERAGRAN 1 UDTAB TABLET GT SCH (08:26)
[2016-08-31] MEDS: ASCORBIC ACID 500 MG TABLET GT SCH ×2 (08:26→16:59)
[2016-08-31] MEDS: BACLOFEN (10 MG) 10 MG TABLET GT SCH ×3 (08:26→16:59)
[2016-08-31] MEDS: HYDROGEN PEROXIDE 480 ML BOTTLE TP SCH ×2 (09:09→20:16)
[2016-08-31] MEDS: Z GUARD REMEDY 4 OZ OINT TP SCH ×2 (09:10→20:16)
[2016-08-31 09:27] VITALS: BP 108/70
--- NOTE | 2016-08-31 11:00 | NUR ---
Late entry for 08/30/16 LFT result seen by LORENZO Rodgers. No new order.
--- NOTE | 2016-08-31 11:04 | NUR ---
Received order from Dr. Alvarez to place pt on CPAP mode tomorrow 09/01/16 and do ABG 1 hour post vent change.
[2016-08-31] MEDS: INSULIN LISPRO/ASPART 100 UNIT/ML CARTRIDGE SQ PRN (18:00)
[2016-08-31 20:25] VITALS: BP 104/68
[2016-08-31] MEDS: SERTRALINE HCL 25 MG TABLET GT SCH (21:39)
[2016-08-31] MEDS: INSULIN DETEMIR 100 UNIT/ML CARTRIDGE SQ SCH (21:40)
[2016-09-01] MEDS: POLYVINYL ALCOHOL 15 ML BOTTLE EACHEYE SCH ×5 (00:08→23:28)
[2016-09-01] MEDS: IPRATROPIUM NEB FS 0.5 MG/2.5 ML AMPUL.NEB NEB SCH ×4 (01:15→19:53)
[2016-09-01] MEDS: PANTOPRAZOLE 40 MG/PACK PACK GT SCH (05:06)
[2016-09-01] MEDS: BLOOD SUGAR DIAGNOSTIC 1 EACH STRIP IN SCH ×2 (05:13→18:03)
[2016-09-01] MEDS: GLYCOPYRROLATE 1 MG TABLET GT SCH ×2 (08:06→17:11)
[2016-09-01] MEDS: POTASSIUM CHLORIDE 20 MEQ POWDER PACKET GT SCH ×2 (08:06→17:11)
[2016-09-01] MEDS: ASCORBIC ACID 500 MG TABLET GT SCH ×2 (08:06→17:11)
[2016-09-01] MEDS: MULTIVITAMINS,THERAGRAN 1 UDTAB TABLET GT SCH (08:06)
[2016-09-01] MEDS: PYRIDOXINE HCL 50 MG TABLET GT SCH (08:06)
[2016-09-01] MEDS: BACLOFEN (10 MG) 10 MG TABLET GT SCH ×3 (08:06→17:11)
[2016-09-01] MEDS: LEVETIRACETAM SOL (5 ML) 100 MG/ML UDC GT SCH ×2 (08:06→21:11)
[2016-09-01] MEDS: FERROUS SULFATE - FOR SA ONLY 330 MG/7.5 ML UDC GT SCH ×3 (08:06→17:11)
[2016-09-01] MEDS: DOCUSATE SODIUM LIQ 100 MG/10 ML UDC GT SCH ×2 (08:06→17:11)
[2016-09-01] MEDS: HYDROGEN PEROXIDE 480 ML BOTTLE TP SCH ×2 (08:16→21:11)
[2016-09-01] MEDS: Z GUARD REMEDY 4 OZ OINT TP SCH ×2 (08:16→21:11)
[2016-09-01 08:24] VITALS: BP 104/71
[2016-09-01] MEDS: ALBUTEROL FS 2.5 MG/3 ML VIAL.NEB NEB SCH ×3 (08:34→19:53)
--- NOTE | 2016-09-01 08:34 | NUR ---
RT PLACED PT ON CPAP MODE PER MD ORDER. TOLERATING WELL AT THIS TIME, NO SIGNS OF DISTRESS NOTED. WILL CONTINUE TO MONITOR THE PATIENT CLOSELY. RN NOTIFIED AND AWARE. Addendum: 09/01/16 at 1224 by WING WHITTINGTON RT Amended: Links added.
[2016-09-01] MEDS: ISONIAZID (300 MG) 300 MG TABLET GT SCH (09:00)
[2016-09-01 10:34] LABS: ABG BASE EXCESS -1.6 mmol/L; ABG OXYGEN SATURATION 92.8 % (92.0-98.5); ABG PCO2 53.7 mmHg (35.0-45.0); ABG PH 7.294 (7.350-7.450); ABG PO2 75.7 mmHg (75.0-100.0); AaDO2 147.7 mmHg; COHb 0.5 % (0.5-1.5); O2Hb 91.4 % (94.0-97.0); SITE, ABG Right Brachial
--- NOTE | 2016-09-01 10:45 | NUR ---
RT POST ABG RESULTS SHOWN TO DR. BAE. PLACED PT BACK ON AC MODE WITH PREVIOUS SETTINGS PER MD ORDER. RN NOTIFIED. WILL CONTINUE TO MONITOR THE PATIENT CLOSELY FOR ANY CHANGE OF CONDITION. Addendum: 09/01/16 at 1224 by WING WHITTINGTON RT Amended: Links added.
--- NOTE | 2016-09-01 10:56 | NUR ---
Resident placed on CPAP mode, PSV 12, Peep 15 by RT and ABG done 1 hour later. ABG result reported to Dr. Alvarez with order to put patient back to AC mode. Patient unable to tolerate ventilator weaning. All orders noted and carried out.
[2016-09-01 20:02] VITALS: BP 102/66
[2016-09-01] MEDS: SERTRALINE HCL 25 MG TABLET GT SCH (21:11)
[2016-09-01] MEDS: GLYTROL 1,000 ML BAG GT PRN (21:12)
[2016-09-01] MEDS: INSULIN DETEMIR 100 UNIT/ML CARTRIDGE SQ SCH (21:12)
[2016-09-02] MEDS: ALBUTEROL FS 2.5 MG/3 ML VIAL.NEB NEB SCH ×4 (01:12→20:10)
[2016-09-02] MEDS: IPRATROPIUM NEB FS 0.5 MG/2.5 ML AMPUL.NEB NEB SCH ×4 (01:12→20:10)
[2016-09-02] MEDS: POLYVINYL ALCOHOL 15 ML BOTTLE EACHEYE SCH ×4 (05:09→23:43)
[2016-09-02] MEDS: BLOOD SUGAR DIAGNOSTIC 1 EACH STRIP IN SCH ×2 (05:09→17:48)
[2016-09-02] MEDS: PANTOPRAZOLE 40 MG/PACK PACK GT SCH (05:09)
[2016-09-02] MEDS: INSULIN LISPRO/ASPART 100 UNIT/ML CARTRIDGE SQ PRN (05:10)
[2016-09-02 07:34] VITALS: BP 115/87
[2016-09-02] MEDS: PYRIDOXINE HCL 50 MG TABLET GT SCH (08:11)
[2016-09-02] MEDS: HYDROGEN PEROXIDE 480 ML BOTTLE TP SCH ×2 (08:11→21:53)
[2016-09-02] MEDS: ISONIAZID (300 MG) 300 MG TABLET GT SCH (08:11)
[2016-09-02] MEDS: MULTIVITAMINS,THERAGRAN 1 UDTAB TABLET GT SCH (08:11)
[2016-09-02] MEDS: GLYCOPYRROLATE 1 MG TABLET GT SCH ×2 (08:11→17:47)
[2016-09-02] MEDS: ASCORBIC ACID 500 MG TABLET GT SCH ×2 (08:11→17:48)
[2016-09-02] MEDS: FERROUS SULFATE - FOR SA ONLY 330 MG/7.5 ML UDC GT SCH ×3 (08:11→17:47)
[2016-09-02] MEDS: BACLOFEN (10 MG) 10 MG TABLET GT SCH ×3 (08:11→17:48)
[2016-09-02] MEDS: Z GUARD REMEDY 4 OZ OINT TP SCH ×2 (08:11→21:53)
[2016-09-02] MEDS: LEVETIRACETAM SOL (5 ML) 100 MG/ML UDC GT SCH ×2 (08:11→21:53)
[2016-09-02] MEDS: DOCUSATE SODIUM LIQ 100 MG/10 ML UDC GT SCH ×2 (08:11→17:47)
[2016-09-02] MEDS: POTASSIUM CHLORIDE 20 MEQ POWDER PACKET GT SCH ×2 (08:11→17:48)
--- NOTE | 2016-09-02 15:53 | NUR ---
Seen and examined by Mya Rodgers NP no new order given.
--- NOTE | 2016-09-02 18:21 | NUR ---
Head circumference measured 56cm.
[2016-09-02 20:41] VITALS: BP 99/67
[2016-09-02] MEDS: SERTRALINE HCL 25 MG TABLET GT SCH (21:53)
[2016-09-02] MEDS: INSULIN DETEMIR 100 UNIT/ML CARTRIDGE SQ SCH (21:54)
[2016-09-02 23:32] VITALS: BP_SYST 85
[2016-09-03] MEDS: IPRATROPIUM NEB FS 0.5 MG/2.5 ML AMPUL.NEB NEB SCH ×4 (01:19→19:30)
[2016-09-03] MEDS: ALBUTEROL FS 2.5 MG/3 ML VIAL.NEB NEB SCH ×4 (01:19→19:30)
[2016-09-03 03:15] VITALS: BP_SYST 85
[2016-09-03] MEDS: BLOOD SUGAR DIAGNOSTIC 1 EACH STRIP IN SCH ×2 (05:48→17:10)
[2016-09-03] MEDS: POLYVINYL ALCOHOL 15 ML BOTTLE EACHEYE SCH ×3 (05:48→17:10)
[2016-09-03] MEDS: PANTOPRAZOLE 40 MG/PACK PACK GT SCH (05:48)
[2016-09-03] MEDS: INSULIN LISPRO/ASPART 100 UNIT/ML CARTRIDGE SQ PRN ×2 (05:56→17:11)
[2016-09-03 07:28] VITALS: BP 105/64
[2016-09-03] MEDS: FERROUS SULFATE - FOR SA ONLY 330 MG/7.5 ML UDC GT SCH ×3 (08:26→17:10)
[2016-09-03] MEDS: DOCUSATE SODIUM LIQ 100 MG/10 ML UDC GT SCH ×2 (08:26→17:10)
[2016-09-03] MEDS: ISONIAZID (300 MG) 300 MG TABLET GT SCH (08:26)
[2016-09-03] MEDS: POTASSIUM CHLORIDE 20 MEQ POWDER PACKET GT SCH ×2 (08:27→17:10)
[2016-09-03] MEDS: LEVETIRACETAM SOL (5 ML) 100 MG/ML UDC GT SCH ×2 (08:27→21:29)
[2016-09-03] MEDS: GLYCOPYRROLATE 1 MG TABLET GT SCH ×2 (08:27→17:10)
[2016-09-03] MEDS: MULTIVITAMINS,THERAGRAN 1 UDTAB TABLET GT SCH (08:27)
[2016-09-03] MEDS: BACLOFEN (10 MG) 10 MG TABLET GT SCH ×3 (08:27→17:10)
[2016-09-03] MEDS: ASCORBIC ACID 500 MG TABLET GT SCH ×2 (08:28→17:10)
[2016-09-03] MEDS: Z GUARD REMEDY 4 OZ OINT TP SCH ×2 (08:28→21:29)
[2016-09-03] MEDS: PYRIDOXINE HCL 50 MG TABLET GT SCH (08:28)
[2016-09-03] MEDS: HYDROGEN PEROXIDE 480 ML BOTTLE TP SCH ×2 (08:28→21:29)
[2016-09-03] MEDS: ACETAMINOPHEN 650 MG/20 ML UDC- FOR SA PATIENTS ONLY GT PRN (08:29)
[2016-09-03] MEDS: GLYTROL 1,000 ML BAG GT PRN (11:35)
[2016-09-03 20:02] VITALS: BP 99/62
[2016-09-03] MEDS: SERTRALINE HCL 25 MG TABLET GT SCH (21:29)
[2016-09-03] MEDS: INSULIN DETEMIR 100 UNIT/ML CARTRIDGE SQ SCH (21:30)
[2016-09-04] MEDS: IPRATROPIUM NEB FS 0.5 MG/2.5 ML AMPUL.NEB NEB SCH ×4 (01:55→19:42)
[2016-09-04] MEDS: ALBUTEROL FS 2.5 MG/3 ML VIAL.NEB NEB SCH ×4 (01:55→19:42)
[2016-09-04] MEDS: ACETAMINOPHEN 650 MG/20 ML UDC- FOR SA PATIENTS ONLY GT PRN (04:08)
[2016-09-04] MEDS: PANTOPRAZOLE 40 MG/PACK PACK GT SCH (05:48)
[2016-09-04] MEDS: POLYVINYL ALCOHOL 15 ML BOTTLE EACHEYE SCH ×5 (05:48→23:19)
[2016-09-04] MEDS: BLOOD SUGAR DIAGNOSTIC 1 EACH STRIP IN SCH ×2 (05:55→17:31)
--- NOTE | 2016-09-04 06:22 | NUR ---
PATIENT HAD TEMPERATURE OF 101.8 ,COOLING MEASURES AND TYLENOL GIVEN,NO DESATURATION.PT LATEST TEMP.99.5,HR 89,BP 99/60,o2 SATS 96%.NOTIFIED DR. CUNHA AWAITING FOR REPLY.WILL CONTINUE TO MONITOR PA CLOSELY AND WILL ENDORSE TO ONCOMING SHIFT.
[2016-09-04 07:36] VITALS: BP 101/71
--- NOTE | 2016-09-04 08:28 | NUR ---
Dr. Liz is aware of pt's temp 101.8 F, no new orders. Will continue to monitor pt. Addendum: 09/04/16 at 0830 by TRISTIN MCCLENDON RN Pt's temp 98.8 F at this time.
[2016-09-04] MEDS: DOCUSATE SODIUM LIQ 100 MG/10 ML UDC GT SCH ×2 (09:35→17:13)
[2016-09-04] MEDS: GLYCOPYRROLATE 1 MG TABLET GT SCH ×2 (09:36→17:13)
[2016-09-04] MEDS: FERROUS SULFATE - FOR SA ONLY 330 MG/7.5 ML UDC GT SCH ×3 (09:36→17:13)
[2016-09-04] MEDS: MULTIVITAMINS,THERAGRAN 1 UDTAB TABLET GT SCH (09:37)
[2016-09-04] MEDS: PYRIDOXINE HCL 50 MG TABLET GT SCH (09:37)
[2016-09-04] MEDS: LEVETIRACETAM SOL (5 ML) 100 MG/ML UDC GT SCH ×2 (09:37→20:17)
[2016-09-04] MEDS: ASCORBIC ACID 500 MG TABLET GT SCH ×2 (09:37→17:13)
[2016-09-04] MEDS: Z GUARD REMEDY 4 OZ OINT TP SCH ×2 (09:37→20:18)
[2016-09-04] MEDS: ISONIAZID (300 MG) 300 MG TABLET GT SCH (09:37)
[2016-09-04] MEDS: HYDROGEN PEROXIDE 480 ML BOTTLE TP SCH ×2 (09:37→20:17)
[2016-09-04] MEDS: POTASSIUM CHLORIDE 20 MEQ POWDER PACKET GT SCH ×2 (09:37→17:13)
[2016-09-04] MEDS: BACLOFEN (10 MG) 10 MG TABLET GT SCH ×3 (09:37→17:13)
[2016-09-04] MEDS: GLYTROL 1,000 ML BAG GT PRN (10:00)
[2016-09-04] MEDS: INSULIN LISPRO/ASPART 100 UNIT/ML CARTRIDGE SQ PRN (17:32)
[2016-09-04 20:50] VITALS: BP 100/67
[2016-09-04] MEDS: SERTRALINE HCL 25 MG TABLET GT SCH (21:46)
[2016-09-04] MEDS: INSULIN DETEMIR 100 UNIT/ML CARTRIDGE SQ SCH (21:47)
[2016-09-05] MEDS: IPRATROPIUM NEB FS 0.5 MG/2.5 ML AMPUL.NEB NEB SCH ×4 (01:08→19:05)
[2016-09-05] MEDS: ALBUTEROL FS 2.5 MG/3 ML VIAL.NEB NEB SCH ×4 (01:08→19:05)
[2016-09-05] MEDS: GLYTROL 1,000 ML BAG GT PRN ×2 (04:21→23:20)
[2016-09-05] MEDS: PANTOPRAZOLE 40 MG/PACK PACK GT SCH (05:33)
[2016-09-05] MEDS: BLOOD SUGAR DIAGNOSTIC 1 EACH STRIP IN SCH ×2 (05:33→17:26)
[2016-09-05] MEDS: POLYVINYL ALCOHOL 15 ML BOTTLE EACHEYE SCH ×3 (05:33→17:26)
[2016-09-05] MEDS: INSULIN LISPRO/ASPART 100 UNIT/ML CARTRIDGE SQ PRN ×2 (05:34→17:27)
[2016-09-05] MEDS: POLYETHYLENE GLYCOL 3350 17 GM POWD.PACK GT PRN (05:34)
[2016-09-05 07:47] VITALS: BP 107/69
[2016-09-05] MEDS: ISONIAZID (300 MG) 300 MG TABLET GT SCH (08:58)
[2016-09-05] MEDS: MULTIVITAMINS,THERAGRAN 1 UDTAB TABLET GT SCH (08:58)
[2016-09-05] MEDS: FERROUS SULFATE - FOR SA ONLY 330 MG/7.5 ML UDC GT SCH ×3 (08:58→17:26)
[2016-09-05] MEDS: ASCORBIC ACID 500 MG TABLET GT SCH ×2 (08:58→17:26)
[2016-09-05] MEDS: DOCUSATE SODIUM LIQ 100 MG/10 ML UDC GT SCH ×2 (08:58→17:26)
[2016-09-05] MEDS: BACLOFEN (10 MG) 10 MG TABLET GT SCH ×3 (08:58→17:26)
[2016-09-05] MEDS: LEVETIRACETAM SOL (5 ML) 100 MG/ML UDC GT SCH ×2 (08:58→21:22)
[2016-09-05] MEDS: PYRIDOXINE HCL 50 MG TABLET GT SCH (08:58)
[2016-09-05] MEDS: POTASSIUM CHLORIDE 20 MEQ POWDER PACKET GT SCH ×2 (08:58→17:26)
[2016-09-05] MEDS: GLYCOPYRROLATE 1 MG TABLET GT SCH ×2 (08:58→17:26)
[2016-09-05] MEDS: Z GUARD REMEDY 4 OZ OINT TP SCH ×2 (08:59→21:22)
[2016-09-05] MEDS: HYDROGEN PEROXIDE 480 ML BOTTLE TP SCH ×2 (08:59→21:22)
[2016-09-05 19:27] VITALS: BP 105/62
[2016-09-05] MEDS: SERTRALINE HCL 25 MG TABLET GT SCH (21:22)
[2016-09-05] MEDS: INSULIN DETEMIR 100 UNIT/ML CARTRIDGE SQ SCH (21:25)
[2016-09-06] MEDS: IPRATROPIUM NEB FS 0.5 MG/2.5 ML AMPUL.NEB NEB SCH ×4 (01:23→20:28)
[2016-09-06] MEDS: ALBUTEROL FS 2.5 MG/3 ML VIAL.NEB NEB SCH ×4 (01:24→20:28)
[2016-09-06] MEDS: PANTOPRAZOLE 40 MG/PACK PACK GT SCH (05:11)
[2016-09-06] MEDS: POLYVINYL ALCOHOL 15 ML BOTTLE EACHEYE SCH ×5 (05:12→23:19)
[2016-09-06] MEDS: BLOOD SUGAR DIAGNOSTIC 1 EACH STRIP IN SCH ×2 (05:36→17:10)
[2016-09-06] MEDS: INSULIN LISPRO/ASPART 100 UNIT/ML CARTRIDGE SQ PRN ×2 (05:36→17:18)
[2016-09-06 07:46] VITALS: BP 99/61
[2016-09-06] MEDS: DOCUSATE SODIUM LIQ 100 MG/10 ML UDC GT SCH ×2 (09:01→17:10)
[2016-09-06] MEDS: GLYCOPYRROLATE 1 MG TABLET GT SCH ×2 (09:01→17:08)
[2016-09-06] MEDS: LEVETIRACETAM SOL (5 ML) 100 MG/ML UDC GT SCH ×2 (09:01→20:43)
[2016-09-06] MEDS: ISONIAZID (300 MG) 300 MG TABLET GT SCH (09:01)
[2016-09-06] MEDS: FERROUS SULFATE - FOR SA ONLY 330 MG/7.5 ML UDC GT SCH ×3 (09:01→17:10)
[2016-09-06] MEDS: MULTIVITAMINS,THERAGRAN 1 UDTAB TABLET GT SCH (09:02)
[2016-09-06] MEDS: ASCORBIC ACID 500 MG TABLET GT SCH ×2 (09:02→17:10)
[2016-09-06] MEDS: BACLOFEN (10 MG) 10 MG TABLET GT SCH ×3 (09:02→17:08)
[2016-09-06] MEDS: PYRIDOXINE HCL 50 MG TABLET GT SCH (09:02)
[2016-09-06] MEDS: HYDROGEN PEROXIDE 480 ML BOTTLE TP SCH ×2 (09:02→20:43)
[2016-09-06] MEDS: POTASSIUM CHLORIDE 20 MEQ POWDER PACKET GT SCH ×2 (09:02→17:08)
[2016-09-06] MEDS: Z GUARD REMEDY 4 OZ OINT TP SCH ×2 (09:02→20:43)
[2016-09-06] MEDS: ACETAMINOPHEN 650 MG/20 ML UDC- FOR SA PATIENTS ONLY GT PRN (13:27)
--- NOTE | 2016-09-06 16:21 | NUR ---
Head circumference 58 cm.
[2016-09-06 20:01] VITALS: BP 100/60
[2016-09-06] MEDS: SERTRALINE HCL 25 MG TABLET GT SCH (21:08)
[2016-09-06] MEDS: INSULIN DETEMIR 100 UNIT/ML CARTRIDGE SQ SCH (21:09)
[2016-09-07] MEDS: ALBUTEROL FS 2.5 MG/3 ML VIAL.NEB NEB SCH ×4 (02:29→20:26)
[2016-09-07] MEDS: IPRATROPIUM NEB FS 0.5 MG/2.5 ML AMPUL.NEB NEB SCH ×4 (02:29→20:26)
[2016-09-07] MEDS: PANTOPRAZOLE 40 MG/PACK PACK GT SCH (05:14)
[2016-09-07] MEDS: POLYVINYL ALCOHOL 15 ML BOTTLE EACHEYE SCH ×4 (05:14→23:54)
[2016-09-07] MEDS: BLOOD SUGAR DIAGNOSTIC 1 EACH STRIP IN SCH ×2 (05:39→17:01)
[2016-09-07 07:51] VITALS: BP 93/66
[2016-09-07] MEDS: ASCORBIC ACID 500 MG TABLET GT SCH ×2 (08:24→17:01)
[2016-09-07] MEDS: GLYCOPYRROLATE 1 MG TABLET GT SCH ×2 (08:29→17:02)
[2016-09-07] MEDS: LEVETIRACETAM SOL (5 ML) 100 MG/ML UDC GT SCH ×2 (08:29→20:18)
[2016-09-07] MEDS: POTASSIUM CHLORIDE 20 MEQ POWDER PACKET GT SCH ×2 (08:29→17:02)
[2016-09-07] MEDS: BACLOFEN (10 MG) 10 MG TABLET GT SCH ×3 (08:29→17:02)
[2016-09-07] MEDS: PYRIDOXINE HCL 50 MG TABLET GT SCH (08:29)
[2016-09-07] MEDS: ISONIAZID (300 MG) 300 MG TABLET GT SCH (09:35)
[2016-09-07] MEDS: FERROUS SULFATE - FOR SA ONLY 330 MG/7.5 ML UDC GT SCH ×3 (09:35→17:00)
[2016-09-07] MEDS: MULTIVITAMINS,THERAGRAN 1 UDTAB TABLET GT SCH (09:35)
[2016-09-07] MEDS: HYDROGEN PEROXIDE 480 ML BOTTLE TP SCH ×2 (09:35→20:18)
[2016-09-07] MEDS: DOCUSATE SODIUM LIQ 100 MG/10 ML UDC GT SCH ×2 (09:35→17:00)
[2016-09-07] MEDS: Z GUARD REMEDY 4 OZ OINT TP SCH ×2 (09:35→20:18)
--- NOTE | 2016-09-07 10:00 | NUR ---
Seen by Dr lAvarez with no new order.
[2016-09-07] MEDS: GLYTROL 1,000 ML BAG GT PRN (20:21)
[2016-09-07 20:39] VITALS: BP 101/64
[2016-09-07] MEDS: SERTRALINE HCL 25 MG TABLET GT SCH (22:10)
[2016-09-07] MEDS: INSULIN DETEMIR 100 UNIT/ML CARTRIDGE SQ SCH (22:11)
[2016-09-08] MEDS: ALBUTEROL FS 2.5 MG/3 ML VIAL.NEB NEB SCH ×4 (01:29→19:41)
[2016-09-08] MEDS: IPRATROPIUM NEB FS 0.5 MG/2.5 ML AMPUL.NEB NEB SCH ×4 (01:29→19:41)
[2016-09-08] MEDS: PANTOPRAZOLE 40 MG/PACK PACK GT SCH (05:10)
[2016-09-08] MEDS: POLYVINYL ALCOHOL 15 ML BOTTLE EACHEYE SCH ×3 (05:10→17:39)
[2016-09-08] MEDS: BLOOD SUGAR DIAGNOSTIC 1 EACH STRIP IN SCH ×2 (05:19→17:39)
[2016-09-08 07:40] VITALS: BP 102/68
[2016-09-08] MEDS: GLYCOPYRROLATE 1 MG TABLET GT SCH ×2 (09:01→17:39)
[2016-09-08] MEDS: POTASSIUM CHLORIDE 20 MEQ POWDER PACKET GT SCH ×2 (09:01→17:39)
[2016-09-08] MEDS: DOCUSATE SODIUM LIQ 100 MG/10 ML UDC GT SCH ×2 (09:01→17:39)
[2016-09-08] MEDS: PYRIDOXINE HCL 50 MG TABLET GT SCH (09:01)
[2016-09-08] MEDS: BACLOFEN (10 MG) 10 MG TABLET GT SCH ×3 (09:01→17:39)
[2016-09-08] MEDS: ASCORBIC ACID 500 MG TABLET GT SCH ×2 (09:01→17:39)
[2016-09-08] MEDS: MULTIVITAMINS,THERAGRAN 1 UDTAB TABLET GT SCH (09:01)
[2016-09-08] MEDS: LEVETIRACETAM SOL (5 ML) 100 MG/ML UDC GT SCH ×2 (09:01→20:08)
[2016-09-08] MEDS: HYDROGEN PEROXIDE 480 ML BOTTLE TP SCH ×2 (09:01→20:08)
[2016-09-08] MEDS: FERROUS SULFATE - FOR SA ONLY 330 MG/7.5 ML UDC GT SCH ×3 (09:01→17:39)
[2016-09-08] MEDS: ISONIAZID (300 MG) 300 MG TABLET GT SCH (09:01)
[2016-09-08] MEDS: Z GUARD REMEDY 4 OZ OINT TP SCH ×2 (09:02→20:08)
[2016-09-08] MEDS: INSULIN LISPRO/ASPART 100 UNIT/ML CARTRIDGE SQ PRN (17:22)
[2016-09-08] MEDS: GLYTROL 1,000 ML BAG GT PRN (17:39)
--- NOTE | 2016-09-08 20:00 | NUR ---
Patient temp 101.5,BP 116/75,HR 110,O2 sats 97% with thick yellow to greenish secretions noted. notified with orders CBC,Blood culture x 2,BMP Chest X ray and to start IV Zosyn and Vancomycin pharmacy to dose.Will carry out orders.
[2016-09-08] MEDS: ACETAMINOPHEN 650 MG/20 ML UDC- FOR SA PATIENTS ONLY GT PRN (20:10)
[2016-09-08 20:17] VITALS: BP 116/75
[2016-09-08 20:24] LABS: BASOPHILS % (AUTO) 0.1 % (0.0-2.0); EOSINOPHILS % (AUTO) 0.2 % (0.0-6.0); HEMATOCRIT 33 % (33-45); HEMOGLOBIN 10.9 g/dL (11.5-14.8); LYMPHOCYTES # (AUTO) 1.1 /CMM (0.8-4.8); LYMPHOCYTES % (AUTO) 7.6 % (20.0-44.0); MEAN CORPUSCULAR HEMOGLOBIN 29 PG (26.0-33.0); MEAN CORPUSCULAR HGB CONC 33 g/dl (31.0-36.0); MEAN CORPUSCULAR VOLUME 89 fL (82-100); MONOCYTES # (AUTO) 0.4 /CMM (0.1-1.30); MONOCYTES % (AUTO) 3.1 % (2.0-12.0); NEUTROPHILS # (AUTO) 12.4 /CMM (1.8-8.9); PLATELET COUNT (AUTO) 386 /CMM (150-450); RDW COEFFICIENT OF VARIATION 13.4 (11.5-15.0); RED BLOOD CELL COUNT(AUTO) 3.75 MIL/uL (4.0-5.2); WHITE BLOOD COUNT (AUTO) 13.9 K/uL (4.3-11.0)
[2016-09-08] MEDS ORDERED: FEE PK DOSING 1 MIN EA MC ONE (20:24)
[2016-09-08 20:33] LABS: CALCIUM, SERUM 9.3 mg/dL (8.5-10.1); CREATININE 0.7 mg/dL (0.6-1.3); POTASSIUM 5.4 mmol/L (3.5-5.1)
--- NOTE | 2016-09-08 20:45 | NUR ---
Pt responsible green party Tosin zurita,phone number not working.Another number called [phone] left voicemail waiting for call back.
[2016-09-08] MEDS: SERTRALINE HCL 25 MG TABLET GT SCH (21:14)
[2016-09-08] MEDS: INSULIN DETEMIR 100 UNIT/ML CARTRIDGE SQ SCH (21:15)
--- NOTE | 2016-09-08 21:15 | NUR ---
Received pt with temp of 101.5 Tylenol 650 mg/gt prn given for temp at 2000 pm. Plus cooling measures with ice. Effective. Post 1 hour temp at 100.0. Charge nurse RN and aware. Will continue to monitor.
[2016-09-08] MEDS: VANCOMYCIN 1 GM in IV D5W 250 ML IV SCH (21:25)
[2016-09-08] MEDS: PIPERACILLIN /TAZOBACTAM 3.375 G in IV D5W 50 ML IV SCH (22:00)
--- NOTE | 2016-09-08 23:29 | NUR ---
Sister of patient Tosin visited pt and updated her for change of condition and new orders and medication.Appreciative of the care were giving her sitter.Phone number was also updated in the face sheet.
[2016-09-09] MEDS: POLYVINYL ALCOHOL 15 ML BOTTLE EACHEYE SCH ×5 (00:08→23:24)
[2016-09-09] MEDS: ALBUTEROL FS 2.5 MG/3 ML VIAL.NEB NEB SCH ×4 (02:03→20:25)
[2016-09-09] MEDS: IPRATROPIUM NEB FS 0.5 MG/2.5 ML AMPUL.NEB NEB SCH ×4 (02:03→20:25)
[2016-09-09] MEDS: PANTOPRAZOLE 40 MG/PACK PACK GT SCH (05:24)
[2016-09-09] MEDS: BLOOD SUGAR DIAGNOSTIC 1 EACH STRIP IN SCH ×2 (05:45→17:29)
[2016-09-09] MEDS: PIPERACILLIN /TAZOBACTAM 3.375 G in IV D5W 50 ML IV SCH ×3 (06:03→17:43)
[2016-09-09 07:52] VITALS: BP 105/62
--- NOTE | 2016-09-09 08:33 | NUR ---
Notified Dr. Bullard that pt's BP is 87/57 HR 70, no fever at this time. Received order to give NS 500 mL IV bolus x 1 then NS at 80 mL/hr IV x 4 liters for hypotension. Addendum: 09/09/16 at 0841 by TRISTIN MCCLENDON RN Relayed lab and CXR results to Dr. Bullard.
[2016-09-09] MEDS: VANCOMYCIN 1 GM in IV D5W 250 ML IV SCH ×2 (08:46→21:02)
--- NOTE | 2016-09-09 08:52 | NUR ---
Received order from Dr. Bullard to hold KCl 20 mEq GT BID due to K 5.4.
[2016-09-09] MEDS: HYDROGEN PEROXIDE 480 ML BOTTLE TP SCH ×2 (09:00→20:14)
[2016-09-09] MEDS: ISONIAZID (300 MG) 300 MG TABLET GT SCH (09:00)
[2016-09-09] MEDS: FERROUS SULFATE - FOR SA ONLY 330 MG/7.5 ML UDC GT SCH ×3 (09:00→17:29)
[2016-09-09] MEDS: DOCUSATE SODIUM LIQ 100 MG/10 ML UDC GT SCH ×2 (09:00→17:29)
[2016-09-09] MEDS: PYRIDOXINE HCL 50 MG TABLET GT SCH (09:00)
[2016-09-09] MEDS ORDERED: IV NS 0.9% 500 ML IV ONE ×2 (09:00→17:00)
[2016-09-09] MEDS: Z GUARD REMEDY 4 OZ OINT TP SCH ×2 (09:00→20:14)
[2016-09-09] MEDS: LEVETIRACETAM SOL (5 ML) 100 MG/ML UDC GT SCH ×2 (09:00→20:14)
[2016-09-09] MEDS: ASCORBIC ACID 500 MG TABLET GT SCH ×2 (09:00→17:29)
[2016-09-09] MEDS: MULTIVITAMINS,THERAGRAN 1 UDTAB TABLET GT SCH (09:00)
--- NOTE | 2016-09-09 09:20 | NUR ---
Dr Bullard with order to hold Potassium chloride 20meq BID today and resume same dose tomorrow due to KCL level is 5.4 today order noted and carried out. Tosin sister made aware.
[2016-09-09] MEDS: GLYCOPYRROLATE 1 MG TABLET GT SCH ×2 (10:00→17:29)
[2016-09-09] MEDS: BACLOFEN (10 MG) 10 MG TABLET GT SCH ×3 (10:00→17:29)
[2016-09-09] MEDS: IV NS 0.9% 1,000 ML IV PRN (11:08)
--- NOTE | 2016-09-09 11:20 | NUR ---
Dr Bullard ordered to DC KCL 20meq BID via GT due to hyperkalemia order noted and carried out.Tosin sister made aware.
--- NOTE | 2016-09-09 13:30 | NUR ---
Seen by Mya Rodgers AUTOMATIC RIVETING MACHINE OPERATOR with new order UA due to fever episode order noted and carried out.Tosin sister made aware.
--- NOTE | 2016-09-09 13:40 | NUR ---
CXR and lab results seen by LORENZO Rodgers. Received order to do UA.
--- NOTE | 2016-09-09 14:53 | NUR ---
Pt's BP 89/63, HR 70. IV NS ongoing as ordered. No SOB/ no distress noted. Will continue to monitor. Head circumference measured 55cm.
--- NOTE | 2016-09-09 16:30 | NUR ---
Notified Dr. Bullard that pt's BP is 82/57 HR 69, that SBP has been in the 80s to 91 throughout this shift. Pt was given NS 500 mL bolus earlier and is currently on NS at 80 mL/hr. Received order from Dr. Bullard to give another bolus of NS 500 mL IV. Pt afebrile at this time.
--- NOTE | 2016-09-09 17:35 | NUR ---
BP 91/59 HR 73. Addendum: 09/09/16 at 1737 by TRISTIN MCCLENDON RN IV NS bolus completed. NS at 80 cc/hr now infusing.
[2016-09-09 18:07] LABS: APPEARANCE,URINE SL CLOUDY (CLEAR); BILIRUBIN,URINE NEGATIVE (NEGATIVE); BLOOD, URINE NEGATIVE Ery/uL (NEGATIVE); COLOR,URINE YELLOW (YELLOW); KETONES,URINE NEGATIVE (NEGATIVE); LEUKOCYTE ESTERASE ,URINE 3+ (NEGATIVE); NITRITE, URINE NEGATIVE (NEGATIVE); PH,URINE 6.5 (5.0-8.0); PROTEIN,URINE NEGATIVE (NEGATIVE); UGLUCOSE NEGATIVE (NEGATIVE); UROBILINOGEN,URINE 0.2 EU/dL (0.2)
[2016-09-09 18:19] LABS: BACTERIA,URINE Few /HPF (None Seen); RBC,URINE 0-2 /HPF (0-2); SQUAMOUS EPITHELIAL CELL,UR Few /HPF (None Seen)
--- NOTE | 2016-09-09 18:35 | NUR ---
Pt's BP 95/57, HR 85, temp 98.2. No SOB/ no distress noted. IV NS ongoing at 80cc/hr as ordered. Pt kept comfortable, needs met and attended.
--- NOTE | 2016-09-09 18:59 | NUR ---
Relayed UA result to LORENZO Rodgers.
[2016-09-09 20:06] VITALS: BP 91/54
[2016-09-09] MEDS: SERTRALINE HCL 25 MG TABLET GT SCH (21:15)
[2016-09-09] MEDS: INSULIN DETEMIR 100 UNIT/ML CARTRIDGE SQ SCH (21:16)
[2016-09-10] VITALS (8 sets, daily range): BP systolic 77–112; BP diastolic 49–69
[2016-09-10] MEDS: IPRATROPIUM NEB FS 0.5 MG/2.5 ML AMPUL.NEB NEB SCH ×4 (01:34→20:16)
[2016-09-10] MEDS: ALBUTEROL FS 2.5 MG/3 ML VIAL.NEB NEB SCH ×4 (01:34→20:17)
[2016-09-10] MEDS: POLYVINYL ALCOHOL 15 ML BOTTLE EACHEYE SCH ×4 (05:09→23:19)
[2016-09-10] MEDS: BLOOD SUGAR DIAGNOSTIC 1 EACH STRIP IN SCH ×2 (05:09→17:40)
[2016-09-10] MEDS: PANTOPRAZOLE 40 MG/PACK PACK GT SCH (05:09)
[2016-09-10] MEDS: INSULIN LISPRO/ASPART 100 UNIT/ML CARTRIDGE SQ PRN ×2 (05:10→17:41)
[2016-09-10] MEDS: PIPERACILLIN /TAZOBACTAM 3.375 G in IV D5W 50 ML IV SCH ×6 (05:53→23:55)
[2016-09-10] MEDS: IV NS 0.9% 1,000 ML IV PRN ×2 (06:46→21:00)
[2016-09-10] MEDS: GLYTROL 1,000 ML BAG GT PRN (07:04)
--- NOTE | 2016-09-10 07:33 | NUR ---
0 PEEP DUE TO LOW BP, CHARGE NURSE AWARE. Addendum: 09/10/16 at 0733 by QUETA REYNA RT Amended: Links added.
[2016-09-10 07:58] LABS: CALCIUM, SERUM 9.1 mg/dL (8.5-10.1); CREATININE 0.5 mg/dL (0.6-1.3)
[2016-09-10] MEDS: DOCUSATE SODIUM LIQ 100 MG/10 ML UDC GT SCH ×2 (08:33→16:49)
[2016-09-10] MEDS: GLYCOPYRROLATE 1 MG TABLET GT SCH ×2 (08:34→16:49)
[2016-09-10] MEDS: ISONIAZID (300 MG) 300 MG TABLET GT SCH (08:34)
[2016-09-10] MEDS: FERROUS SULFATE - FOR SA ONLY 330 MG/7.5 ML UDC GT SCH ×3 (08:34→16:49)
[2016-09-10] MEDS: ASCORBIC ACID 500 MG TABLET GT SCH ×2 (08:35→16:49)
[2016-09-10] MEDS: PYRIDOXINE HCL 50 MG TABLET GT SCH (08:35)
[2016-09-10] MEDS: MULTIVITAMINS,THERAGRAN 1 UDTAB TABLET GT SCH (08:35)
[2016-09-10] MEDS: LEVETIRACETAM SOL (5 ML) 100 MG/ML UDC GT SCH ×2 (08:35→20:28)
[2016-09-10] MEDS: BACLOFEN (10 MG) 10 MG TABLET GT SCH ×3 (08:35→16:49)
[2016-09-10] MEDS: Z GUARD REMEDY 4 OZ OINT TP SCH ×2 (09:00→20:28)
[2016-09-10] MEDS ORDERED: POTASSIUM CHLORIDE 20 MEQ POWDER PACKET GT SCH (09:00)
[2016-09-10] MEDS: VANCOMYCIN 1 GM in IV D5W 250 ML IV SCH ×2 (09:00→21:00)
--- NOTE | 2016-09-10 09:35 | NUR ---
Notifed Dr. Alvarez resident with low B/P 78/46 -87/63, reesident currently on continuous IVF NS at 80 cc/hr. New order given to give bolus NS 500 ml. and D/C Peep 5 from the vent setting. Continue to monitor B/P.
[2016-09-10] MEDS ORDERED: IV NS 0.9% 500 ML IV ONE (10:30)
--- NOTE | 2016-09-10 10:53 | NUR ---
Seen and examined by Dr. Bullard, made aware of the low B/P and the current B/P at this time 104/62. New order given to repeat CBC and BMP in AM and gave end date for ATB (total of 10 days.) Orders noted and carried out. Addendum: 09/11/16 at 1858 by DANIKA KWON RN Resident's sister notified of patient's change of condition. Appreciated the information given.
[2016-09-10] MEDS: HYDROGEN PEROXIDE 480 ML BOTTLE TP SCH ×2 (12:06→20:28)
--- NOTE | 2016-09-10 20:50 | NUR ---
Vancomycin trough 16,per Sherrill (pharmacist)continue the same dose 1 gm q 12 hrs.
[2016-09-10] MEDS: SERTRALINE HCL 25 MG TABLET GT SCH (21:21)
[2016-09-10] MEDS: INSULIN DETEMIR 100 UNIT/ML CARTRIDGE SQ SCH (21:21)
[2016-09-11] MEDS: IPRATROPIUM NEB FS 0.5 MG/2.5 ML AMPUL.NEB NEB SCH ×4 (02:28→18:58)
[2016-09-11] MEDS: ALBUTEROL FS 2.5 MG/3 ML VIAL.NEB NEB SCH ×4 (02:28→18:58)
[2016-09-11] MEDS: GLYTROL 1,000 ML BAG GT PRN ×2 (02:43→21:39)
[2016-09-11] MEDS: PANTOPRAZOLE 40 MG/PACK PACK GT SCH (05:15)
[2016-09-11] MEDS: POLYVINYL ALCOHOL 15 ML BOTTLE EACHEYE SCH ×4 (05:15→23:18)
[2016-09-11] MEDS: BLOOD SUGAR DIAGNOSTIC 1 EACH STRIP IN SCH ×2 (05:15→17:24)
[2016-09-11] MEDS: INSULIN LISPRO/ASPART 100 UNIT/ML CARTRIDGE SQ PRN ×2 (05:16→17:25)
[2016-09-11] MEDS: PIPERACILLIN /TAZOBACTAM 3.375 G in IV D5W 50 ML IV SCH ×3 (05:47→18:17)
[2016-09-11 07:22] LABS: BASOPHILS % (AUTO) 0.7 % (0.0-2.0); EOSINOPHILS # (AUTO) 0.3 /CMM (0.0-0.7); EOSINOPHILS % (AUTO) 4.5 % (0.0-6.0); HEMATOCRIT 28 % (33-45); HEMOGLOBIN 8.9 g/dL (11.5-14.8); LYMPHOCYTES % (AUTO) 33.8 % (20.0-44.0); MEAN CORPUSCULAR HEMOGLOBIN 29 PG (26.0-33.0); MEAN CORPUSCULAR HGB CONC 32 g/dl (31.0-36.0); MEAN CORPUSCULAR VOLUME 89 fL (82-100); MONOCYTES # (AUTO) 0.5 /CMM (0.1-1.30); MONOCYTES % (AUTO) 8.5 % (2.0-12.0); NEUTROPHILS # (AUTO) 3.1 /CMM (1.8-8.9); NEUTROPHILS % (AUTO) 52.5 % (43.0-81.0); PLATELET COUNT (AUTO) 340 /CMM (150-450); RDW COEFFICIENT OF VARIATION 14.2 (11.5-15.0); RED BLOOD CELL COUNT(AUTO) 3.09 MIL/uL (4.0-5.2); WHITE BLOOD COUNT (AUTO) 5.9 K/uL (4.3-11.0)
[2016-09-11 07:32] LABS: CALCIUM, SERUM 9.2 mg/dL (8.5-10.1); CREATININE 0.5 mg/dL (0.6-1.3); POTASSIUM 3.9 mmol/L (3.5-5.1)
[2016-09-11 07:48] VITALS: BP 119/73
[2016-09-11] MEDS: Z GUARD REMEDY 4 OZ OINT TP SCH ×2 (09:00→20:14)
[2016-09-11] MEDS: VANCOMYCIN 1 GM in IV D5W 250 ML IV SCH ×2 (09:00→21:00)
[2016-09-11] MEDS: HYDROGEN PEROXIDE 480 ML BOTTLE TP SCH ×2 (09:00→20:13)
[2016-09-11] MEDS: BACLOFEN (10 MG) 10 MG TABLET GT SCH ×3 (09:29→17:24)
[2016-09-11] MEDS: LEVETIRACETAM SOL (5 ML) 100 MG/ML UDC GT SCH ×2 (09:29→20:13)
[2016-09-11] MEDS: DOCUSATE SODIUM LIQ 100 MG/10 ML UDC GT SCH ×2 (09:29→17:24)
[2016-09-11] MEDS: FERROUS SULFATE - FOR SA ONLY 330 MG/7.5 ML UDC GT SCH ×3 (09:29→17:24)
[2016-09-11] MEDS: MULTIVITAMINS,THERAGRAN 1 UDTAB TABLET GT SCH (09:29)
[2016-09-11] MEDS: GLYCOPYRROLATE 1 MG TABLET GT SCH ×2 (09:29→17:24)
[2016-09-11] MEDS: ISONIAZID (300 MG) 300 MG TABLET GT SCH (09:29)
[2016-09-11] MEDS: PYRIDOXINE HCL 50 MG TABLET GT SCH (09:29)
[2016-09-11] MEDS: ASCORBIC ACID 500 MG TABLET GT SCH ×2 (09:30→17:24)
[2016-09-11] MEDS: LACTOBACILLUS RHAMNOSUS GG 1 EACH CAP.SPRINK GT SCH (17:24)
[2016-09-11 17:49] VITALS: BP 141/82
[2016-09-11 20:04] VITALS: BP 111/65
[2016-09-11] MEDS: SERTRALINE HCL 25 MG TABLET GT SCH (21:31)
[2016-09-11] MEDS: INSULIN DETEMIR 100 UNIT/ML CARTRIDGE SQ SCH (21:32)
[2016-09-12] MEDS: IPRATROPIUM NEB FS 0.5 MG/2.5 ML AMPUL.NEB NEB SCH ×4 (00:58→19:26)
[2016-09-12] MEDS: ALBUTEROL FS 2.5 MG/3 ML VIAL.NEB NEB SCH ×4 (00:58→19:26)
[2016-09-12] MEDS: BLOOD SUGAR DIAGNOSTIC 1 EACH STRIP IN SCH ×2 (05:24→17:23)
[2016-09-12] MEDS: POLYVINYL ALCOHOL 15 ML BOTTLE EACHEYE SCH ×4 (05:24→23:19)
[2016-09-12] MEDS: PANTOPRAZOLE 40 MG/PACK PACK GT SCH (05:24)
[2016-09-12] MEDS: INSULIN LISPRO/ASPART 100 UNIT/ML CARTRIDGE SQ PRN (05:25)
[2016-09-12] MEDS: PIPERACILLIN /TAZOBACTAM 3.375 G in IV D5W 50 ML IV SCH ×4 (06:30→12:00)
[2016-09-12 07:57] VITALS: BP 111/74
[2016-09-12] MEDS: DOCUSATE SODIUM LIQ 100 MG/10 ML UDC GT SCH ×2 (08:13→16:23)
[2016-09-12] MEDS: LACTOBACILLUS RHAMNOSUS GG 1 EACH CAP.SPRINK GT SCH ×2 (08:13→16:23)
[2016-09-12] MEDS: FERROUS SULFATE - FOR SA ONLY 330 MG/7.5 ML UDC GT SCH ×3 (08:14→16:23)
[2016-09-12] MEDS: PYRIDOXINE HCL 50 MG TABLET GT SCH (08:14)
[2016-09-12] MEDS: BACLOFEN (10 MG) 10 MG TABLET GT SCH ×3 (08:14→16:24)
[2016-09-12] MEDS: LEVETIRACETAM SOL (5 ML) 100 MG/ML UDC GT SCH ×2 (08:14→21:00)
[2016-09-12] MEDS: ISONIAZID (300 MG) 300 MG TABLET GT SCH (08:14)
[2016-09-12] MEDS: ASCORBIC ACID 500 MG TABLET GT SCH ×2 (08:14→16:24)
[2016-09-12] MEDS: GLYCOPYRROLATE 1 MG TABLET GT SCH ×2 (08:14→16:23)
[2016-09-12] MEDS: MULTIVITAMINS,THERAGRAN 1 UDTAB TABLET GT SCH (08:14)
[2016-09-12] MEDS: Z GUARD REMEDY 4 OZ OINT TP SCH ×2 (08:15→21:01)
[2016-09-12] MEDS: HYDROGEN PEROXIDE 480 ML BOTTLE TP SCH ×2 (09:00→21:01)
[2016-09-12] MEDS: VANCOMYCIN 1 GM in IV D5W 250 ML IV SCH ×2 (09:00→21:36)
[2016-09-12 11:47] LABS: CALCIUM, SERUM 9.2 mg/dL (8.5-10.1); CREATININE 0.6 mg/dL (0.6-1.3); POTASSIUM 3.6 mmol/L (3.5-5.1)
[2016-09-12] MEDS: PIPERACILLIN /TAZOBACTAM 4.5 G in IV D5W 50 ML IV SCH (18:00)
[2016-09-12 19:40] VITALS: BP 127/79
[2016-09-12] MEDS: SERTRALINE HCL 25 MG TABLET GT SCH (21:01)
[2016-09-12] MEDS: GLYTROL 1,000 ML BAG GT PRN (21:01)
[2016-09-12] MEDS: INSULIN DETEMIR 100 UNIT/ML CARTRIDGE SQ SCH (21:01)
[2016-09-13] MEDS: ALBUTEROL FS 2.5 MG/3 ML VIAL.NEB NEB SCH ×4 (02:18→19:10)
[2016-09-13] MEDS: IPRATROPIUM NEB FS 0.5 MG/2.5 ML AMPUL.NEB NEB SCH ×4 (02:18→19:10)
[2016-09-13] MEDS: PANTOPRAZOLE 40 MG/PACK PACK GT SCH (05:01)
[2016-09-13] MEDS: POLYVINYL ALCOHOL 15 ML BOTTLE EACHEYE SCH ×4 (05:01→23:29)
[2016-09-13] MEDS: BLOOD SUGAR DIAGNOSTIC 1 EACH STRIP IN SCH ×2 (05:24→17:44)
[2016-09-13] MEDS: PIPERACILLIN /TAZOBACTAM 4.5 G in IV D5W 50 ML IV SCH ×5 (05:48→17:37)
[2016-09-13 07:54] LABS: CALCIUM, SERUM 9.1 mg/dL (8.5-10.1); CREATININE 0.6 mg/dL (0.6-1.3); POTASSIUM 3.7 mmol/L (3.5-5.1)
[2016-09-13] MEDS: LEVETIRACETAM SOL (5 ML) 100 MG/ML UDC GT SCH ×2 (08:01→21:05)
[2016-09-13] MEDS: PYRIDOXINE HCL 50 MG TABLET GT SCH (08:01)
[2016-09-13] MEDS: GLYCOPYRROLATE 1 MG TABLET GT SCH ×2 (08:01→17:11)
[2016-09-13] MEDS: LACTOBACILLUS RHAMNOSUS GG 1 EACH CAP.SPRINK GT SCH ×2 (08:01→17:10)
[2016-09-13] MEDS: BACLOFEN (10 MG) 10 MG TABLET GT SCH ×3 (08:02→17:11)
[2016-09-13] MEDS: ISONIAZID (300 MG) 300 MG TABLET GT SCH (08:02)
[2016-09-13] MEDS: FERROUS SULFATE - FOR SA ONLY 330 MG/7.5 ML UDC GT SCH ×3 (08:03→17:15)
[2016-09-13] MEDS: DOCUSATE SODIUM LIQ 100 MG/10 ML UDC GT SCH ×2 (08:04→17:15)
[2016-09-13] MEDS: MULTIVITAMINS,THERAGRAN 1 UDTAB TABLET GT SCH (08:04)
[2016-09-13] MEDS: HYDROGEN PEROXIDE 480 ML BOTTLE TP SCH ×2 (08:05→21:05)
[2016-09-13] MEDS: ASCORBIC ACID 500 MG TABLET GT SCH ×2 (08:05→17:15)
[2016-09-13] MEDS: Z GUARD REMEDY 4 OZ OINT TP SCH ×2 (08:05→21:05)
[2016-09-13 08:17] VITALS: BP 102/66
[2016-09-13] MEDS: VANCOMYCIN 1 GM in IV D5W 250 ML IV SCH ×2 (08:44→21:00)
[2016-09-13 12:11] VITALS: BP 102/66
--- NOTE | 2016-09-13 14:00 | NUR ---
Seen by LORENZO Rodgers. She is aware of today's lab results. No new order.
[2016-09-13] MEDS: GLYTROL 1,000 ML BAG GT PRN (17:09)
[2016-09-13] MEDS: INSULIN LISPRO/ASPART 100 UNIT/ML CARTRIDGE SQ PRN (17:46)
[2016-09-13 20:00] VITALS: BP 113/62
[2016-09-13] MEDS: INSULIN DETEMIR 100 UNIT/ML CARTRIDGE SQ SCH (21:05)
[2016-09-13] MEDS: SERTRALINE HCL 25 MG TABLET GT SCH (21:05)
[2016-09-14] MEDS: IPRATROPIUM NEB FS 0.5 MG/2.5 ML AMPUL.NEB NEB SCH ×4 (01:09→19:30)
[2016-09-14] MEDS: ALBUTEROL FS 2.5 MG/3 ML VIAL.NEB NEB SCH ×4 (01:09→19:30)
[2016-09-14] MEDS: POLYVINYL ALCOHOL 15 ML BOTTLE EACHEYE SCH ×4 (05:16→23:25)
[2016-09-14] MEDS: PANTOPRAZOLE 40 MG/PACK PACK GT SCH (05:16)
[2016-09-14] MEDS: BLOOD SUGAR DIAGNOSTIC 1 EACH STRIP IN SCH ×2 (05:36→17:16)
[2016-09-14] MEDS: PIPERACILLIN /TAZOBACTAM 4.5 G in IV D5W 50 ML IV SCH ×5 (06:00→17:43)
[2016-09-14 07:40] VITALS: BP 95/53
[2016-09-14 08:14] LABS: CALCIUM, SERUM 9.3 mg/dL (8.5-10.1); CREATININE 0.6 mg/dL (0.6-1.3); POTASSIUM 3.4 mmol/L (3.5-5.1)
[2016-09-14] MEDS: DOCUSATE SODIUM LIQ 100 MG/10 ML UDC GT SCH ×2 (08:40→17:15)
[2016-09-14] MEDS: LACTOBACILLUS RHAMNOSUS GG 1 EACH CAP.SPRINK GT SCH ×2 (08:40→17:16)
[2016-09-14] MEDS: FERROUS SULFATE - FOR SA ONLY 330 MG/7.5 ML UDC GT SCH ×3 (08:41→17:16)
[2016-09-14] MEDS: ASCORBIC ACID 500 MG TABLET GT SCH ×2 (08:41→17:16)
[2016-09-14] MEDS: MULTIVITAMINS,THERAGRAN 1 UDTAB TABLET GT SCH (08:41)
[2016-09-14] MEDS: Z GUARD REMEDY 4 OZ OINT TP SCH ×2 (08:42→20:33)
[2016-09-14] MEDS: HYDROGEN PEROXIDE 480 ML BOTTLE TP SCH ×2 (08:42→20:33)
[2016-09-14] MEDS: ISONIAZID (300 MG) 300 MG TABLET GT SCH (08:44)
[2016-09-14] MEDS: BACLOFEN (10 MG) 10 MG TABLET GT SCH ×3 (08:44→17:16)
[2016-09-14] MEDS: PYRIDOXINE HCL 50 MG TABLET GT SCH (08:44)
[2016-09-14] MEDS: GLYCOPYRROLATE 1 MG TABLET GT SCH ×2 (08:44→17:16)
[2016-09-14] MEDS: LEVETIRACETAM SOL (5 ML) 100 MG/ML UDC GT SCH ×2 (08:44→20:33)
[2016-09-14] MEDS: VANCOMYCIN 1 GM in IV D5W 250 ML IV SCH ×2 (08:55→21:00)
--- NOTE | 2016-09-14 09:40 | NUR ---
Seen by Dr. Alvarez. Relayed Chem 7 result to him. Received order to give Potassium Chloride 20 mEq via GT daily for hypokalemia and do chem 7 on 09/20/16.
[2016-09-14] MEDS: POTASSIUM CHLORIDE 20 MEQ POWDER PACKET GT SCH (13:00)
[2016-09-14 20:18] VITALS: BP 101/61
--- NOTE | 2016-09-14 21:00 | NUR ---
RN NOTES Received vancomycin trough level of 22. Medication held per protocol. Will endorse to following shift.
[2016-09-14] MEDS: SERTRALINE HCL 25 MG TABLET GT SCH (22:09)
[2016-09-14] MEDS: INSULIN DETEMIR 100 UNIT/ML CARTRIDGE SQ SCH (22:10)
[2016-09-15] MEDS: ALBUTEROL FS 2.5 MG/3 ML VIAL.NEB NEB SCH ×4 (01:30→19:30)
[2016-09-15] MEDS: IPRATROPIUM NEB FS 0.5 MG/2.5 ML AMPUL.NEB NEB SCH ×4 (01:30→19:17)
[2016-09-15] MEDS: PANTOPRAZOLE 40 MG/PACK PACK GT SCH (05:41)
[2016-09-15] MEDS: BLOOD SUGAR DIAGNOSTIC 1 EACH STRIP IN SCH ×2 (05:41→17:30)
[2016-09-15] MEDS: POLYVINYL ALCOHOL 15 ML BOTTLE EACHEYE SCH ×4 (05:41→23:33)
[2016-09-15 06:47] LABS: CALCIUM, SERUM 9.6 mg/dL (8.5-10.1); CREATININE 0.5 mg/dL (0.6-1.3)
[2016-09-15 07:51] VITALS: BP 105/65
--- NOTE | 2016-09-15 08:30 | NUR ---
Spoke with [facility] pharmacist regarding Vanco level of 22 drawn yesterday, per pharmacist they will draw another Vanco level today and will notify this nurse for any changes.
[2016-09-15] MEDS: DOCUSATE SODIUM LIQ 100 MG/10 ML UDC GT SCH ×2 (09:06→17:30)
[2016-09-15] MEDS: ISONIAZID (300 MG) 300 MG TABLET GT SCH (09:06)
[2016-09-15] MEDS: POTASSIUM CHLORIDE 20 MEQ POWDER PACKET GT SCH (09:06)
[2016-09-15] MEDS: PYRIDOXINE HCL 50 MG TABLET GT SCH (09:06)
[2016-09-15] MEDS: LEVETIRACETAM SOL (5 ML) 100 MG/ML UDC GT SCH ×2 (09:06→20:14)
[2016-09-15] MEDS: FERROUS SULFATE - FOR SA ONLY 330 MG/7.5 ML UDC GT SCH ×3 (09:06→17:30)
[2016-09-15] MEDS: LACTOBACILLUS RHAMNOSUS GG 1 EACH CAP.SPRINK GT SCH ×2 (09:06→17:30)
[2016-09-15] MEDS: BACLOFEN (10 MG) 10 MG TABLET GT SCH ×3 (09:06→17:30)
[2016-09-15] MEDS: MULTIVITAMINS,THERAGRAN 1 UDTAB TABLET GT SCH (09:06)
[2016-09-15] MEDS: GLYCOPYRROLATE 1 MG TABLET GT SCH ×2 (09:06→17:30)
[2016-09-15] MEDS: ASCORBIC ACID 500 MG TABLET GT SCH ×2 (09:07→17:30)
[2016-09-15] MEDS: PIPERACILLIN /TAZOBACTAM 4.5 G in IV D5W 50 ML IV SCH ×4 (12:11→18:01)
[2016-09-15] MEDS: HYDROGEN PEROXIDE 480 ML BOTTLE TP SCH ×2 (13:20→20:14)
[2016-09-15] MEDS: Z GUARD REMEDY 4 OZ OINT TP SCH ×2 (13:20→20:14)
--- NOTE | 2016-09-15 14:05 | NUR ---
Seen by Dr Bullard with no new order.
[2016-09-15] MEDS: GLYTROL 1,000 ML BAG GT PRN (17:30)
--- NOTE | 2016-09-15 17:30 | NUR ---
Seen by Mya Rodgers NP with no new order.
[2016-09-15] MEDS: INSULIN LISPRO/ASPART 100 UNIT/ML CARTRIDGE SQ PRN (17:41)
[2016-09-15 19:54] VITALS: BP 103/69
[2016-09-15] MEDS: SERTRALINE HCL 25 MG TABLET GT SCH (21:24)
[2016-09-15] MEDS: INSULIN DETEMIR 100 UNIT/ML CARTRIDGE SQ SCH (21:25)
[2016-09-16] MEDS: PIPERACILLIN /TAZOBACTAM 4.5 G in IV D5W 50 ML IV SCH ×5 (00:02→23:58)
[2016-09-16] MEDS: IPRATROPIUM NEB FS 0.5 MG/2.5 ML AMPUL.NEB NEB SCH ×4 (00:39→19:57)
[2016-09-16] MEDS: ALBUTEROL FS 2.5 MG/3 ML VIAL.NEB NEB SCH ×4 (00:40→19:57)
[2016-09-16] MEDS: POLYVINYL ALCOHOL 15 ML BOTTLE EACHEYE SCH ×3 (05:21→17:50)
[2016-09-16] MEDS: PANTOPRAZOLE 40 MG/PACK PACK GT SCH (05:21)
[2016-09-16] MEDS: BLOOD SUGAR DIAGNOSTIC 1 EACH STRIP IN SCH ×2 (05:30→17:50)
[2016-09-16 08:00] VITALS: BP 116/72
--- NOTE | 2016-09-16 08:01 | NUR ---
Patient was seen by sr account executive Dr. Marcella Flores on 09/15/2016.
[2016-09-16] MEDS: DOCUSATE SODIUM LIQ 100 MG/10 ML UDC GT SCH ×2 (09:57→17:50)
[2016-09-16] MEDS: BACLOFEN (10 MG) 10 MG TABLET GT SCH ×3 (09:57→17:50)
[2016-09-16] MEDS: GLYCOPYRROLATE 1 MG TABLET GT SCH ×2 (09:57→17:50)
[2016-09-16] MEDS: FERROUS SULFATE - FOR SA ONLY 330 MG/7.5 ML UDC GT SCH ×3 (09:57→17:50)
[2016-09-16] MEDS: HYDROGEN PEROXIDE 480 ML BOTTLE TP SCH ×2 (09:57→21:23)
[2016-09-16] MEDS: ISONIAZID (300 MG) 300 MG TABLET GT SCH (09:57)
[2016-09-16] MEDS: MULTIVITAMINS,THERAGRAN 1 UDTAB TABLET GT SCH (09:57)
[2016-09-16] MEDS: Z GUARD REMEDY 4 OZ OINT TP SCH ×2 (09:57→21:23)
[2016-09-16] MEDS: PYRIDOXINE HCL 50 MG TABLET GT SCH (09:57)
[2016-09-16] MEDS: POTASSIUM CHLORIDE 20 MEQ POWDER PACKET GT SCH (09:57)
[2016-09-16] MEDS: LEVETIRACETAM SOL (5 ML) 100 MG/ML UDC GT SCH ×2 (09:57→21:23)
[2016-09-16] MEDS: ASCORBIC ACID 500 MG TABLET GT SCH ×2 (09:57→17:50)
[2016-09-16] MEDS: LACTOBACILLUS RHAMNOSUS GG 1 EACH CAP.SPRINK GT SCH ×2 (09:57→17:50)
--- NOTE | 2016-09-16 15:58 | NUR ---
Head circumference 54cm.
--- NOTE | 2016-09-16 16:00 | NUR ---
Order clarified for Baclofen,Levemir,Protonix,Potassium Chloride Dr Juan Miguel johnosn noted and carried out.Tosin syed.
[2016-09-16 19:39] VITALS: BP 115/67
[2016-09-16] MEDS: SERTRALINE HCL 25 MG TABLET GT SCH (21:23)
[2016-09-16] MEDS: INSULIN DETEMIR 100 UNIT/ML CARTRIDGE SQ SCH (21:24)
[2016-09-17] MEDS: ALBUTEROL FS 2.5 MG/3 ML VIAL.NEB NEB SCH ×4 (00:59→20:01)
[2016-09-17] MEDS: IPRATROPIUM NEB FS 0.5 MG/2.5 ML AMPUL.NEB NEB SCH ×4 (00:59→20:01)
[2016-09-17] MEDS: POLYVINYL ALCOHOL 15 ML BOTTLE EACHEYE SCH ×5 (05:36→23:23)
[2016-09-17] MEDS: BLOOD SUGAR DIAGNOSTIC 1 EACH STRIP IN SCH ×2 (05:45→17:12)
[2016-09-17] MEDS: PANTOPRAZOLE 40 MG/PACK PACK GT SCH (05:45)
[2016-09-17] MEDS: INSULIN LISPRO/ASPART 100 UNIT/ML CARTRIDGE SQ PRN ×2 (05:46→17:42)
[2016-09-17] MEDS: PIPERACILLIN /TAZOBACTAM 4.5 G in IV D5W 50 ML IV SCH ×4 (06:00→23:54)
[2016-09-17] MEDS: POLYETHYLENE GLYCOL 3350 17 GM POWD.PACK GT PRN (06:46)
[2016-09-17 08:19] VITALS: BP 132/68
[2016-09-17] MEDS: Z GUARD REMEDY 4 OZ OINT TP SCH ×2 (09:00→21:06)
[2016-09-17] MEDS: LACTOBACILLUS RHAMNOSUS GG 1 EACH CAP.SPRINK GT SCH ×2 (09:25→17:12)
[2016-09-17] MEDS: PYRIDOXINE HCL 50 MG TABLET GT SCH (09:25)
[2016-09-17] MEDS: LEVETIRACETAM SOL (5 ML) 100 MG/ML UDC GT SCH ×2 (09:25→21:06)
[2016-09-17] MEDS: FERROUS SULFATE - FOR SA ONLY 330 MG/7.5 ML UDC GT SCH ×3 (09:25→17:12)
[2016-09-17] MEDS: ASCORBIC ACID 500 MG TABLET GT SCH ×2 (09:25→17:12)
[2016-09-17] MEDS: POTASSIUM CHLORIDE 20 MEQ POWDER PACKET GT SCH (09:25)
[2016-09-17] MEDS: DOCUSATE SODIUM LIQ 100 MG/10 ML UDC GT SCH ×2 (09:25→17:12)
[2016-09-17] MEDS: ISONIAZID (300 MG) 300 MG TABLET GT SCH (09:25)
[2016-09-17] MEDS: MULTIVITAMINS,THERAGRAN 1 UDTAB TABLET GT SCH (09:25)
[2016-09-17] MEDS: GLYCOPYRROLATE 1 MG TABLET GT SCH ×2 (09:25→17:12)
[2016-09-17] MEDS: BACLOFEN (10 MG) 10 MG TABLET GT SCH ×3 (09:25→17:12)
[2016-09-17] MEDS: HYDROGEN PEROXIDE 480 ML BOTTLE TP SCH ×2 (09:25→21:06)
[2016-09-17] MEDS: GLYTROL 1,000 ML BAG GT PRN (13:20)
--- NOTE | 2016-09-17 14:00 | NUR ---
IDT meeting held, family unable to attend. IDT team reviewed medications, treatment and labs, new order given by Dr. Alvarez to decrease dose of Zoloft from 25 mg to 12.5 mg daily for 2 weeks then D/C. Resident's sister Tosin notified of the new order.
[2016-09-17 19:34] VITALS: BP 129/82
[2016-09-17] MEDS: SERTRALINE HCL 25 MG TABLET PO SCH (21:06)
[2016-09-17] MEDS: INSULIN DETEMIR 100 UNIT/ML CARTRIDGE SQ SCH (21:07)
[2016-09-18] MEDS: IPRATROPIUM NEB FS 0.5 MG/2.5 ML AMPUL.NEB NEB SCH ×4 (01:06→20:02)
[2016-09-18] MEDS: ALBUTEROL FS 2.5 MG/3 ML VIAL.NEB NEB SCH ×4 (01:06→20:03)
[2016-09-18] MEDS: PIPERACILLIN /TAZOBACTAM 4.5 G in IV D5W 50 ML IV SCH ×2 (06:02→12:56)
[2016-09-18] MEDS: POLYVINYL ALCOHOL 15 ML BOTTLE EACHEYE SCH ×3 (06:17→17:12)
[2016-09-18] MEDS: BLOOD SUGAR DIAGNOSTIC 1 EACH STRIP IN SCH ×2 (06:17→17:12)
[2016-09-18] MEDS: PANTOPRAZOLE 40 MG/PACK PACK GT SCH (06:17)
[2016-09-18] MEDS: INSULIN LISPRO/ASPART 100 UNIT/ML CARTRIDGE SQ PRN ×2 (06:18→17:12)
[2016-09-18 07:32] VITALS: BP 119/73
[2016-09-18] MEDS: ISONIAZID (300 MG) 300 MG TABLET GT SCH (09:15)
[2016-09-18] MEDS: Z GUARD REMEDY 4 OZ OINT TP SCH ×2 (09:15→21:18)
[2016-09-18] MEDS: GLYCOPYRROLATE 1 MG TABLET GT SCH ×2 (09:15→17:12)
[2016-09-18] MEDS: DOCUSATE SODIUM LIQ 100 MG/10 ML UDC GT SCH ×2 (09:15→17:11)
[2016-09-18] MEDS: ASCORBIC ACID 500 MG TABLET GT SCH ×2 (09:15→17:12)
[2016-09-18] MEDS: PYRIDOXINE HCL 50 MG TABLET GT SCH (09:15)
[2016-09-18] MEDS: POTASSIUM CHLORIDE 20 MEQ POWDER PACKET GT SCH (09:15)
[2016-09-18] MEDS: HYDROGEN PEROXIDE 480 ML BOTTLE TP SCH ×2 (09:15→21:18)
[2016-09-18] MEDS: MULTIVITAMINS,THERAGRAN 1 UDTAB TABLET GT SCH (09:15)
[2016-09-18] MEDS: FERROUS SULFATE - FOR SA ONLY 330 MG/7.5 ML UDC GT SCH ×3 (09:15→17:12)
[2016-09-18] MEDS: BACLOFEN (10 MG) 10 MG TABLET GT SCH ×3 (09:15→17:12)
[2016-09-18] MEDS: LACTOBACILLUS RHAMNOSUS GG 1 EACH CAP.SPRINK GT SCH ×2 (09:15→17:12)
[2016-09-18] MEDS: LEVETIRACETAM SOL (5 ML) 100 MG/ML UDC GT SCH ×2 (09:15→21:18)
[2016-09-18] MEDS: GLYTROL 1,000 ML BAG GT PRN (11:54)
[2016-09-18 19:40] VITALS: BP 107/69
[2016-09-18] MEDS: SERTRALINE HCL 25 MG TABLET PO SCH (21:18)
[2016-09-18] MEDS: INSULIN DETEMIR 100 UNIT/ML CARTRIDGE SQ SCH (21:19)
[2016-09-19] MEDS: ALBUTEROL FS 2.5 MG/3 ML VIAL.NEB NEB SCH ×4 (01:54→19:23)
[2016-09-19] MEDS: IPRATROPIUM NEB FS 0.5 MG/2.5 ML AMPUL.NEB NEB SCH ×4 (01:54→19:23)
[2016-09-19] MEDS: POLYVINYL ALCOHOL 15 ML BOTTLE EACHEYE SCH ×5 (06:26→23:20)
[2016-09-19] MEDS: PANTOPRAZOLE 40 MG/PACK PACK GT SCH (06:26)
[2016-09-19] MEDS: INSULIN LISPRO/ASPART 100 UNIT/ML CARTRIDGE SQ PRN ×2 (06:26→17:08)
[2016-09-19] MEDS: BLOOD SUGAR DIAGNOSTIC 1 EACH STRIP IN SCH ×2 (06:26→17:07)
[2016-09-19] MEDS: GLYTROL 1,000 ML BAG GT PRN (06:27)
[2016-09-19 08:05] VITALS: BP 97/59
[2016-09-19] MEDS: ISONIAZID (300 MG) 300 MG TABLET GT SCH (08:14)
[2016-09-19] MEDS: DOCUSATE SODIUM LIQ 100 MG/10 ML UDC GT SCH ×2 (08:14→16:10)
[2016-09-19] MEDS: GLYCOPYRROLATE 1 MG TABLET GT SCH ×2 (08:14→16:10)
[2016-09-19] MEDS: LACTOBACILLUS RHAMNOSUS GG 1 EACH CAP.SPRINK GT SCH ×2 (08:14→16:10)
[2016-09-19] MEDS: FERROUS SULFATE - FOR SA ONLY 330 MG/7.5 ML UDC GT SCH ×3 (08:14→16:10)
[2016-09-19] MEDS: PYRIDOXINE HCL 50 MG TABLET GT SCH (08:15)
[2016-09-19] MEDS: POTASSIUM CHLORIDE 20 MEQ POWDER PACKET GT SCH (08:15)
[2016-09-19] MEDS: MULTIVITAMINS,THERAGRAN 1 UDTAB TABLET GT SCH (08:15)
[2016-09-19] MEDS: BACLOFEN (10 MG) 10 MG TABLET GT SCH ×3 (08:15→16:10)
[2016-09-19] MEDS: LEVETIRACETAM SOL (5 ML) 100 MG/ML UDC GT SCH ×2 (08:15→21:16)
[2016-09-19] MEDS: ASCORBIC ACID 500 MG TABLET GT SCH ×2 (08:15→16:10)
[2016-09-19] MEDS: HYDROGEN PEROXIDE 480 ML BOTTLE TP SCH ×2 (09:00→21:16)
[2016-09-19] MEDS: Z GUARD REMEDY 4 OZ OINT TP SCH ×2 (09:00→21:16)
[2016-09-19 19:40] VITALS: BP 107/74
[2016-09-19] MEDS: SERTRALINE HCL 25 MG TABLET PO SCH (21:16)
[2016-09-19] MEDS: INSULIN DETEMIR 100 UNIT/ML CARTRIDGE SQ SCH (21:16)
[2016-09-20] MEDS: ALBUTEROL FS 2.5 MG/3 ML VIAL.NEB NEB SCH ×4 (00:53→20:43)
[2016-09-20] MEDS: IPRATROPIUM NEB FS 0.5 MG/2.5 ML AMPUL.NEB NEB SCH ×4 (00:53→20:43)
[2016-09-20] MEDS: PANTOPRAZOLE 40 MG/PACK PACK GT SCH (05:24)
[2016-09-20] MEDS: BLOOD SUGAR DIAGNOSTIC 1 EACH STRIP IN SCH ×2 (05:24→17:40)
[2016-09-20] MEDS: POLYVINYL ALCOHOL 15 ML BOTTLE EACHEYE SCH ×3 (05:24→17:40)
[2016-09-20 07:28] LABS: CALCIUM, SERUM 9.8 mg/dL (8.5-10.1); CREATININE 0.5 mg/dL (0.6-1.3)
[2016-09-20 07:52] VITALS: BP 110/75
[2016-09-20] MEDS: ISONIAZID (300 MG) 300 MG TABLET GT SCH (08:44)
[2016-09-20] MEDS: PYRIDOXINE HCL 50 MG TABLET GT SCH (08:44)
[2016-09-20] MEDS: FERROUS SULFATE - FOR SA ONLY 330 MG/7.5 ML UDC GT SCH ×3 (08:44→17:40)
[2016-09-20] MEDS: DOCUSATE SODIUM LIQ 100 MG/10 ML UDC GT SCH ×2 (08:44→17:40)
[2016-09-20] MEDS: BACLOFEN (10 MG) 10 MG TABLET GT SCH ×3 (08:44→17:40)
[2016-09-20] MEDS: LACTOBACILLUS RHAMNOSUS GG 1 EACH CAP.SPRINK GT SCH ×2 (08:44→17:40)
[2016-09-20] MEDS: MULTIVITAMINS,THERAGRAN 1 UDTAB TABLET GT SCH (08:44)
[2016-09-20] MEDS: GLYCOPYRROLATE 1 MG TABLET GT SCH ×2 (08:44→17:40)
[2016-09-20] MEDS: ASCORBIC ACID 500 MG TABLET GT SCH ×2 (08:44→17:40)
[2016-09-20] MEDS: LEVETIRACETAM SOL (5 ML) 100 MG/ML UDC GT SCH ×2 (08:44→21:22)
[2016-09-20] MEDS: POTASSIUM CHLORIDE 20 MEQ POWDER PACKET GT SCH (08:44)
[2016-09-20] MEDS: Z GUARD REMEDY 4 OZ OINT TP SCH ×2 (15:00→21:22)
[2016-09-20] MEDS: HYDROGEN PEROXIDE 480 ML BOTTLE TP SCH ×2 (15:00→21:22)
--- NOTE | 2016-09-20 19:11 | NUR ---
Head circumference measured - 55.5cm.
[2016-09-20 20:04] VITALS: BP 113/73
[2016-09-20] MEDS: INSULIN DETEMIR 100 UNIT/ML CARTRIDGE SQ SCH (21:23)
[2016-09-20] MEDS: SERTRALINE HCL 25 MG TABLET PO SCH (21:23)
[2016-09-21] MEDS: POLYVINYL ALCOHOL 15 ML BOTTLE EACHEYE SCH ×4 (00:03→17:00)
[2016-09-21] MEDS: IPRATROPIUM NEB FS 0.5 MG/2.5 ML AMPUL.NEB NEB SCH ×4 (01:40→19:30)
[2016-09-21] MEDS: ALBUTEROL FS 2.5 MG/3 ML VIAL.NEB NEB SCH ×4 (01:40→19:30)
[2016-09-21] MEDS: PANTOPRAZOLE 40 MG/PACK PACK GT SCH (05:24)
[2016-09-21] MEDS: BLOOD SUGAR DIAGNOSTIC 1 EACH STRIP IN SCH ×2 (05:29→17:00)
[2016-09-21] MEDS: PYRIDOXINE HCL 50 MG TABLET GT SCH (08:37)
[2016-09-21] MEDS: DOCUSATE SODIUM LIQ 100 MG/10 ML UDC GT SCH ×2 (08:37→16:49)
[2016-09-21] MEDS: GLYCOPYRROLATE 1 MG TABLET GT SCH ×2 (08:37→16:52)
[2016-09-21] MEDS: LEVETIRACETAM SOL (5 ML) 100 MG/ML UDC GT SCH ×2 (08:37→21:05)
[2016-09-21] MEDS: MULTIVITAMINS,THERAGRAN 1 UDTAB TABLET GT SCH (08:37)
[2016-09-21] MEDS: ISONIAZID (300 MG) 300 MG TABLET GT SCH (08:37)
[2016-09-21] MEDS: ASCORBIC ACID 500 MG TABLET GT SCH ×2 (08:37→16:52)
[2016-09-21] MEDS: POTASSIUM CHLORIDE 20 MEQ POWDER PACKET GT SCH (08:37)
[2016-09-21] MEDS: LACTOBACILLUS RHAMNOSUS GG 1 EACH CAP.SPRINK GT SCH ×2 (08:37→16:49)
[2016-09-21] MEDS: BACLOFEN (10 MG) 10 MG TABLET GT SCH ×3 (08:37→16:52)
[2016-09-21] MEDS: FERROUS SULFATE - FOR SA ONLY 330 MG/7.5 ML UDC GT SCH ×3 (08:37→16:52)
--- NOTE | 2016-09-21 09:30 | NUR ---
Seen by Dr Alvarez with no new order.
[2016-09-21 12:11] VITALS: BP 142/69
[2016-09-21] MEDS: Z GUARD REMEDY 4 OZ OINT TP SCH ×2 (14:30→21:05)
[2016-09-21] MEDS: HYDROGEN PEROXIDE 480 ML BOTTLE TP SCH ×2 (14:30→21:05)
[2016-09-21] MEDS: INSULIN LISPRO/ASPART 100 UNIT/ML CARTRIDGE SQ PRN (17:03)
[2016-09-21 19:54] VITALS: BP 101/62
[2016-09-21] MEDS: SERTRALINE HCL 25 MG TABLET PO SCH (21:05)
[2016-09-21] MEDS: INSULIN DETEMIR 100 UNIT/ML CARTRIDGE SQ SCH (21:06)
[2016-09-22] MEDS: POLYVINYL ALCOHOL 15 ML BOTTLE EACHEYE SCH ×5 (00:39→23:47)
[2016-09-22] MEDS: ALBUTEROL FS 2.5 MG/3 ML VIAL.NEB NEB SCH ×4 (01:30→20:37)
[2016-09-22] MEDS: IPRATROPIUM NEB FS 0.5 MG/2.5 ML AMPUL.NEB NEB SCH ×4 (01:30→20:37)
[2016-09-22] MEDS: PANTOPRAZOLE 40 MG/PACK PACK GT SCH (05:31)
[2016-09-22] MEDS: BLOOD SUGAR DIAGNOSTIC 1 EACH STRIP IN SCH ×2 (05:31→17:34)
[2016-09-22 07:51] VITALS: BP 110/70
[2016-09-22] MEDS: ISONIAZID (300 MG) 300 MG TABLET GT SCH (09:45)
[2016-09-22] MEDS: GLYCOPYRROLATE 1 MG TABLET GT SCH ×2 (09:45→17:34)
[2016-09-22] MEDS: LEVETIRACETAM SOL (5 ML) 100 MG/ML UDC GT SCH ×2 (09:45→20:44)
[2016-09-22] MEDS: LACTOBACILLUS RHAMNOSUS GG 1 EACH CAP.SPRINK GT SCH ×2 (09:45→17:34)
[2016-09-22] MEDS: DOCUSATE SODIUM LIQ 100 MG/10 ML UDC GT SCH ×2 (09:45→17:34)
[2016-09-22] MEDS: FERROUS SULFATE - FOR SA ONLY 330 MG/7.5 ML UDC GT SCH ×3 (09:45→17:34)
[2016-09-22] MEDS: POTASSIUM CHLORIDE 20 MEQ POWDER PACKET GT SCH (09:46)
[2016-09-22] MEDS: HYDROGEN PEROXIDE 480 ML BOTTLE TP SCH ×2 (09:46→20:44)
[2016-09-22] MEDS: PYRIDOXINE HCL 50 MG TABLET GT SCH (09:46)
[2016-09-22] MEDS: Z GUARD REMEDY 4 OZ OINT TP SCH ×2 (09:46→20:44)
[2016-09-22] MEDS: BACLOFEN (10 MG) 10 MG TABLET GT SCH ×3 (09:46→17:34)
[2016-09-22] MEDS: MULTIVITAMINS,THERAGRAN 1 UDTAB TABLET GT SCH (09:46)
[2016-09-22] MEDS: ASCORBIC ACID 500 MG TABLET GT SCH ×2 (09:46→17:34)
[2016-09-22] MEDS: GLYTROL 1,000 ML BAG GT PRN (13:18)
[2016-09-22] MEDS: INSULIN LISPRO/ASPART 100 UNIT/ML CARTRIDGE SQ PRN (17:37)
[2016-09-22 19:45] VITALS: BP 67/95
[2016-09-22] MEDS: SERTRALINE HCL 25 MG TABLET PO SCH (21:40)
[2016-09-22] MEDS: INSULIN DETEMIR 100 UNIT/ML CARTRIDGE SQ SCH (21:41)
[2016-09-23] MEDS: ALBUTEROL FS 2.5 MG/3 ML VIAL.NEB NEB SCH ×4 (01:42→19:54)
[2016-09-23] MEDS: IPRATROPIUM NEB FS 0.5 MG/2.5 ML AMPUL.NEB NEB SCH ×4 (01:42→19:54)
[2016-09-23] MEDS: POLYVINYL ALCOHOL 15 ML BOTTLE EACHEYE SCH ×4 (05:15→23:55)
[2016-09-23] MEDS: PANTOPRAZOLE 40 MG/PACK PACK GT SCH (05:15)
[2016-09-23] MEDS: INSULIN LISPRO/ASPART 100 UNIT/ML CARTRIDGE SQ PRN ×2 (05:16→18:00)
[2016-09-23] MEDS: BLOOD SUGAR DIAGNOSTIC 1 EACH STRIP IN SCH ×2 (05:16→17:59)
[2016-09-23 07:34] VITALS: BP 128/78
[2016-09-23] MEDS: DOCUSATE SODIUM LIQ 100 MG/10 ML UDC GT SCH ×2 (08:23→16:28)
[2016-09-23] MEDS: LACTOBACILLUS RHAMNOSUS GG 1 EACH CAP.SPRINK GT SCH ×2 (08:23→16:28)
[2016-09-23] MEDS: MULTIVITAMINS,THERAGRAN 1 UDTAB TABLET GT SCH (08:24)
[2016-09-23] MEDS: BACLOFEN (10 MG) 10 MG TABLET GT SCH ×3 (08:24→16:28)
[2016-09-23] MEDS: GLYCOPYRROLATE 1 MG TABLET GT SCH ×2 (08:24→16:28)
[2016-09-23] MEDS: FERROUS SULFATE - FOR SA ONLY 330 MG/7.5 ML UDC GT SCH ×3 (08:24→16:28)
[2016-09-23] MEDS: LEVETIRACETAM SOL (5 ML) 100 MG/ML UDC GT SCH ×2 (08:24→21:33)
[2016-09-23] MEDS: ASCORBIC ACID 500 MG TABLET GT SCH ×2 (08:24→16:28)
[2016-09-23] MEDS: POTASSIUM CHLORIDE 20 MEQ POWDER PACKET GT SCH (08:24)
[2016-09-23] MEDS: ISONIAZID (300 MG) 300 MG TABLET GT SCH (08:24)
[2016-09-23] MEDS: PYRIDOXINE HCL 50 MG TABLET GT SCH (08:24)
[2016-09-23] MEDS: HYDROGEN PEROXIDE 480 ML BOTTLE TP SCH ×2 (08:25→21:33)
[2016-09-23] MEDS: Z GUARD REMEDY 4 OZ OINT TP SCH ×2 (08:25→21:33)
[2016-09-23] MEDS: GLYTROL 1,000 ML BAG GT PRN (11:16)
[2016-09-23] MEDS: ACETAMINOPHEN 650 MG/20 ML UDC- FOR SA PATIENTS ONLY GT PRN (11:16)
[2016-09-23 20:01] VITALS: BP 112/71
[2016-09-23] MEDS: SERTRALINE HCL 25 MG TABLET PO SCH (21:33)
[2016-09-23] MEDS: INSULIN DETEMIR 100 UNIT/ML CARTRIDGE SQ SCH (21:40)
[2016-09-24] MEDS: ALBUTEROL FS 2.5 MG/3 ML VIAL.NEB NEB SCH ×4 (00:59→19:55)
[2016-09-24] MEDS: IPRATROPIUM NEB FS 0.5 MG/2.5 ML AMPUL.NEB NEB SCH ×4 (00:59→19:55)
[2016-09-24] MEDS: GLYTROL 1,000 ML BAG GT PRN (05:28)
[2016-09-24] MEDS: BLOOD SUGAR DIAGNOSTIC 1 EACH STRIP IN SCH ×2 (06:18→18:08)
[2016-09-24] MEDS: POLYVINYL ALCOHOL 15 ML BOTTLE EACHEYE SCH ×3 (06:18→18:08)
[2016-09-24] MEDS: INSULIN LISPRO/ASPART 100 UNIT/ML CARTRIDGE SQ PRN (06:18)
[2016-09-24] MEDS: PANTOPRAZOLE 40 MG/PACK PACK GT SCH (06:18)
[2016-09-24 07:31] VITALS: BP 99/71
[2016-09-24] MEDS: HYDROGEN PEROXIDE 480 ML BOTTLE TP SCH ×2 (08:14→21:31)
[2016-09-24] MEDS: GLYCOPYRROLATE 1 MG TABLET GT SCH ×2 (08:14→16:55)
[2016-09-24] MEDS: MULTIVITAMINS,THERAGRAN 1 UDTAB TABLET GT SCH (08:14)
[2016-09-24] MEDS: POTASSIUM CHLORIDE 20 MEQ POWDER PACKET GT SCH (08:14)
[2016-09-24] MEDS: LEVETIRACETAM SOL (5 ML) 100 MG/ML UDC GT SCH ×2 (08:14→21:27)
[2016-09-24] MEDS: DOCUSATE SODIUM LIQ 100 MG/10 ML UDC GT SCH ×2 (08:14→16:55)
[2016-09-24] MEDS: Z GUARD REMEDY 4 OZ OINT TP SCH ×2 (08:14→21:31)
[2016-09-24] MEDS: ISONIAZID (300 MG) 300 MG TABLET GT SCH (08:14)
[2016-09-24] MEDS: PYRIDOXINE HCL 50 MG TABLET GT SCH (08:14)
[2016-09-24] MEDS: LACTOBACILLUS RHAMNOSUS GG 1 EACH CAP.SPRINK GT SCH ×2 (08:14→16:55)
[2016-09-24] MEDS: BACLOFEN (10 MG) 10 MG TABLET GT SCH ×3 (08:14→16:55)
[2016-09-24] MEDS: FERROUS SULFATE - FOR SA ONLY 330 MG/7.5 ML UDC GT SCH ×3 (08:14→16:55)
[2016-09-24] MEDS: ASCORBIC ACID 500 MG TABLET GT SCH ×2 (08:14→16:55)
--- NOTE | 2016-09-24 08:37 | NUR ---
PT REC'D ON VENT VIA TRACH TUBE VAHE PAGE 6. SETTINGS CHARTED. AMBU BAG BEDSIDE, ALARMS SET AND AUDIBLE, SUCTIONED THICK CLEAR SECRETIONS, VENT PLUGGED IN RED OUTLET Addendum: 09/24/16 at 1537 by PETER MARADIAGA RT Amended: Links added.
--- NOTE | 2016-09-24 18:17 | NUR ---
Seen and examined by Dr. Bullard no new order given.
[2016-09-24] MEDS: SERTRALINE HCL 25 MG TABLET PO SCH (21:31)
[2016-09-24] MEDS: INSULIN DETEMIR 100 UNIT/ML CARTRIDGE SQ SCH (21:32)
[2016-09-25] MEDS: ALBUTEROL FS 2.5 MG/3 ML VIAL.NEB NEB SCH ×4 (01:52→19:30)
[2016-09-25] MEDS: IPRATROPIUM NEB FS 0.5 MG/2.5 ML AMPUL.NEB NEB SCH ×4 (01:52→19:30)
[2016-09-25] MEDS: GLYTROL 1,000 ML BAG GT PRN (04:55)
[2016-09-25] MEDS: POLYVINYL ALCOHOL 15 ML BOTTLE EACHEYE SCH ×5 (05:03→23:24)
[2016-09-25] MEDS: PANTOPRAZOLE 40 MG/PACK PACK GT SCH (05:03)
[2016-09-25] MEDS: BLOOD SUGAR DIAGNOSTIC 1 EACH STRIP IN SCH ×2 (06:16→17:05)
[2016-09-25] MEDS: INSULIN LISPRO/ASPART 100 UNIT/ML CARTRIDGE SQ PRN ×2 (06:17→17:06)
[2016-09-25 07:52] VITALS: BP 106/68
[2016-09-25] MEDS: ISONIAZID (300 MG) 300 MG TABLET GT SCH (08:31)
[2016-09-25] MEDS: LEVETIRACETAM SOL (5 ML) 100 MG/ML UDC GT SCH ×2 (08:31→21:19)
[2016-09-25] MEDS: POTASSIUM CHLORIDE 20 MEQ POWDER PACKET GT SCH (08:31)
[2016-09-25] MEDS: LACTOBACILLUS RHAMNOSUS GG 1 EACH CAP.SPRINK GT SCH (08:31)
[2016-09-25] MEDS: DOCUSATE SODIUM LIQ 100 MG/10 ML UDC GT SCH ×2 (08:31→16:54)
[2016-09-25] MEDS: BACLOFEN (10 MG) 10 MG TABLET GT SCH ×3 (08:31→16:54)
[2016-09-25] MEDS: MULTIVITAMINS,THERAGRAN 1 UDTAB TABLET GT SCH (08:31)
[2016-09-25] MEDS: PYRIDOXINE HCL 50 MG TABLET GT SCH (08:31)
[2016-09-25] MEDS: FERROUS SULFATE - FOR SA ONLY 330 MG/7.5 ML UDC GT SCH ×3 (08:31→16:54)
[2016-09-25] MEDS: GLYCOPYRROLATE 1 MG TABLET GT SCH ×2 (08:31→16:54)
[2016-09-25] MEDS: ASCORBIC ACID 500 MG TABLET GT SCH ×2 (08:32→16:54)
[2016-09-25] MEDS: HYDROGEN PEROXIDE 480 ML BOTTLE TP SCH ×2 (08:32→21:19)
[2016-09-25] MEDS: Z GUARD REMEDY 4 OZ OINT TP SCH ×2 (08:32→21:19)
[2016-09-25 20:01] VITALS: BP 107/60
[2016-09-25] MEDS: SERTRALINE HCL 25 MG TABLET PO SCH (21:19)
[2016-09-25] MEDS: INSULIN DETEMIR 100 UNIT/ML CARTRIDGE SQ SCH (21:20)
[2016-09-26] MEDS: IPRATROPIUM NEB FS 0.5 MG/2.5 ML AMPUL.NEB NEB SCH ×4 (01:30→20:30)
[2016-09-26] MEDS: ALBUTEROL FS 2.5 MG/3 ML VIAL.NEB NEB SCH ×4 (01:30→20:30)
[2016-09-26] MEDS: POLYVINYL ALCOHOL 15 ML BOTTLE EACHEYE SCH ×3 (05:59→17:33)
[2016-09-26] MEDS: BLOOD SUGAR DIAGNOSTIC 1 EACH STRIP IN SCH ×2 (05:59→17:33)
[2016-09-26] MEDS: GLYTROL 1,000 ML BAG GT PRN (05:59)
[2016-09-26] MEDS: PANTOPRAZOLE 40 MG/PACK PACK GT SCH (05:59)
[2016-09-26] MEDS: INSULIN LISPRO/ASPART 100 UNIT/ML CARTRIDGE SQ PRN (06:03)
[2016-09-26 07:54] VITALS: BP 116/66
[2016-09-26] MEDS: POTASSIUM CHLORIDE 20 MEQ POWDER PACKET GT SCH (08:00)
[2016-09-26] MEDS: FERROUS SULFATE - FOR SA ONLY 330 MG/7.5 ML UDC GT SCH ×3 (08:00→16:02)
[2016-09-26] MEDS: MULTIVITAMINS,THERAGRAN 1 UDTAB TABLET GT SCH (08:00)
[2016-09-26] MEDS: ASCORBIC ACID 500 MG TABLET GT SCH ×2 (08:00→16:02)
[2016-09-26] MEDS: GLYCOPYRROLATE 1 MG TABLET GT SCH ×2 (08:00→16:02)
[2016-09-26] MEDS: LEVETIRACETAM SOL (5 ML) 100 MG/ML UDC GT SCH ×2 (08:00→21:03)
[2016-09-26] MEDS: DOCUSATE SODIUM LIQ 100 MG/10 ML UDC GT SCH ×2 (08:00→16:02)
[2016-09-26] MEDS: ISONIAZID (300 MG) 300 MG TABLET GT SCH (08:00)
[2016-09-26] MEDS: PYRIDOXINE HCL 50 MG TABLET GT SCH (08:00)
[2016-09-26] MEDS: BACLOFEN (10 MG) 10 MG TABLET GT SCH ×3 (09:00→16:02)
[2016-09-26] MEDS: Z GUARD REMEDY 4 OZ OINT TP SCH ×2 (09:41→21:03)
[2016-09-26] MEDS: HYDROGEN PEROXIDE 480 ML BOTTLE TP SCH ×2 (09:41→21:03)
--- NOTE | 2016-09-26 15:27 | NUR ---
RT RECEIVED PT TRACHED WITH SHILEY #6 CUFFED ON [facility] VENT. AIRCRAFT INSTRUMENT REPAIRER DONE. BILAT RHONCHI BREATH SOUNDS ON AUSCULTATION. VENT PLUGGED INTO RED OUTLET. TRACH SECURED AND AIRWAY PATENT. SUCTIONED MODERATE AMOUNTS OF THICK, PALE YELLOW SECRETIONS. ALARMS ON AND FUNCTIONING PROPERLY. BREATHING TX'S GIVEN ORDERED. NO ADVERSE REACTIONS OBSERVED. SPARE TRACH AND AMBU BAG AT BEDSIDE. NO SOB OR SIGNS OF DISTRESS NOTED AT THIS TIME. WILL CONTINUE TO MONITOR THE PATIENT FOR ANY CHANGES. Addendum: 09/26/16 at 1731 by WING WHITTINGTON RT Amended: Links added.
[2016-09-26 19:41] VITALS: BP 126/71
[2016-09-26] MEDS: SERTRALINE HCL 25 MG TABLET PO SCH (21:04)
[2016-09-26] MEDS: INSULIN DETEMIR 100 UNIT/ML CARTRIDGE SQ SCH (21:05)
[2016-09-27] MEDS: ALBUTEROL FS 2.5 MG/3 ML VIAL.NEB NEB SCH ×4 (01:30→20:04)
[2016-09-27] MEDS: IPRATROPIUM NEB FS 0.5 MG/2.5 ML AMPUL.NEB NEB SCH ×4 (01:31→20:04)
[2016-09-27] MEDS: BLOOD SUGAR DIAGNOSTIC 1 EACH STRIP IN SCH ×2 (06:10→17:47)
[2016-09-27] MEDS: POLYVINYL ALCOHOL 15 ML BOTTLE EACHEYE SCH ×4 (06:10→17:47)
[2016-09-27] MEDS: PANTOPRAZOLE 40 MG/PACK PACK GT SCH (06:10)
[2016-09-27 07:35] LABS: ALBUMIN 3.2 g/dL (3.4-5.0); BILIRUBIN,DIRECT 0.1 mg/dL (0.0-0.2); BILIRUBIN,TOTAL 0.3 mg/dL (0.2-1.0); TOTAL PROTEIN, SERUM 8.1 g/dL (6.4-8.2)
[2016-09-27 08:00] VITALS: BP 119/69
[2016-09-27] MEDS: BACLOFEN (10 MG) 10 MG TABLET GT SCH ×3 (08:11→16:28)
[2016-09-27] MEDS: POTASSIUM CHLORIDE 20 MEQ POWDER PACKET GT SCH (08:11)
[2016-09-27] MEDS: DOCUSATE SODIUM LIQ 100 MG/10 ML UDC GT SCH ×2 (08:11→16:28)
[2016-09-27] MEDS: GLYCOPYRROLATE 1 MG TABLET GT SCH ×2 (08:11→16:28)
[2016-09-27] MEDS: FERROUS SULFATE - FOR SA ONLY 330 MG/7.5 ML UDC GT SCH ×3 (08:11→16:28)
[2016-09-27] MEDS: MULTIVITAMINS,THERAGRAN 1 UDTAB TABLET GT SCH (08:11)
[2016-09-27] MEDS: LEVETIRACETAM SOL (5 ML) 100 MG/ML UDC GT SCH ×2 (08:11→21:10)
[2016-09-27] MEDS: ISONIAZID (300 MG) 300 MG TABLET GT SCH (08:11)
[2016-09-27] MEDS: PYRIDOXINE HCL 50 MG TABLET GT SCH (08:12)
[2016-09-27] MEDS: ASCORBIC ACID 500 MG TABLET GT SCH ×2 (08:12→16:28)
[2016-09-27] MEDS: Z GUARD REMEDY 4 OZ OINT TP SCH ×2 (09:00→21:10)
--- NOTE | 2016-09-27 09:06 | NUR ---
Was seen by Dr. Kerri BAEZA for annual checkup. Resident has a cavity on tooth #10. Dentist recommended a cleaning if resident can tolerate and if not, okay. Charge nurse informed.
[2016-09-27] MEDS: HYDROGEN PEROXIDE 480 ML BOTTLE TP SCH ×2 (12:00→21:10)
--- NOTE | 2016-09-27 15:50 | NUR ---
Spoke to resident's sister who declined dental cleaning for resident, as she reported that she cannot tolerate it and wants to wait until she is better.
--- NOTE | 2016-09-27 18:30 | NUR ---
Seen by COUNSELOR AIDE Mya Rodgers. Relayed LFT result to her. No new order.
[2016-09-27 19:40] VITALS: BP 114/71
[2016-09-27] MEDS: SERTRALINE HCL 25 MG TABLET PO SCH (21:10)
[2016-09-27] MEDS: INSULIN DETEMIR 100 UNIT/ML CARTRIDGE SQ SCH (21:11)
[2016-09-28] MEDS: POLYVINYL ALCOHOL 15 ML BOTTLE EACHEYE SCH ×5 (00:01→23:59)
[2016-09-28] MEDS: ALBUTEROL FS 2.5 MG/3 ML VIAL.NEB NEB SCH ×4 (00:53→19:45)
[2016-09-28] MEDS: IPRATROPIUM NEB FS 0.5 MG/2.5 ML AMPUL.NEB NEB SCH ×4 (00:53→19:45)
[2016-09-28] MEDS: PANTOPRAZOLE 40 MG/PACK PACK GT SCH (05:31)
[2016-09-28] MEDS: BLOOD SUGAR DIAGNOSTIC 1 EACH STRIP IN SCH ×2 (05:31→17:02)
[2016-09-28 07:53] VITALS: BP 110/72
[2016-09-28] MEDS: BACLOFEN (10 MG) 10 MG TABLET GT SCH ×3 (08:10→16:49)
[2016-09-28] MEDS: GLYCOPYRROLATE 1 MG TABLET GT SCH ×2 (08:10→16:49)
[2016-09-28] MEDS: DOCUSATE SODIUM LIQ 100 MG/10 ML UDC GT SCH ×2 (08:10→16:49)
[2016-09-28] MEDS: ASCORBIC ACID 500 MG TABLET GT SCH ×2 (08:10→16:49)
[2016-09-28] MEDS: FERROUS SULFATE - FOR SA ONLY 330 MG/7.5 ML UDC GT SCH ×3 (08:10→16:49)
[2016-09-28] MEDS: LEVETIRACETAM SOL (5 ML) 100 MG/ML UDC GT SCH ×2 (08:10→21:22)
[2016-09-28] MEDS: MULTIVITAMINS,THERAGRAN 1 UDTAB TABLET GT SCH (08:10)
[2016-09-28] MEDS: POTASSIUM CHLORIDE 20 MEQ POWDER PACKET GT SCH (08:10)
[2016-09-28] MEDS: ISONIAZID (300 MG) 300 MG TABLET GT SCH (08:10)
[2016-09-28] MEDS: PYRIDOXINE HCL 50 MG TABLET GT SCH (08:10)
[2016-09-28] MEDS: HYDROGEN PEROXIDE 480 ML BOTTLE TP SCH ×2 (10:00→21:22)
[2016-09-28] MEDS: Z GUARD REMEDY 4 OZ OINT TP SCH ×2 (10:00→21:22)
--- NOTE | 2016-09-28 16:31 | NUR ---
Basilia for 09/27/16 - Head circumference measured - 57 cm.
[2016-09-28] MEDS: INSULIN LISPRO/ASPART 100 UNIT/ML CARTRIDGE SQ PRN (17:04)
[2016-09-28 19:32] VITALS: BP 112/71
[2016-09-28] MEDS: SERTRALINE HCL 25 MG TABLET PO SCH (21:22)
[2016-09-28] MEDS: INSULIN DETEMIR 100 UNIT/ML CARTRIDGE SQ SCH (21:23)
[2016-09-29] MEDS: ALBUTEROL FS 2.5 MG/3 ML VIAL.NEB NEB SCH ×4 (01:23→19:37)
[2016-09-29] MEDS: IPRATROPIUM NEB FS 0.5 MG/2.5 ML AMPUL.NEB NEB SCH ×4 (01:23→19:37)
[2016-09-29] MEDS: PANTOPRAZOLE 40 MG/PACK PACK GT SCH (05:37)
[2016-09-29] MEDS: BLOOD SUGAR DIAGNOSTIC 1 EACH STRIP IN SCH ×2 (05:37→18:17)
[2016-09-29] MEDS: POLYVINYL ALCOHOL 15 ML BOTTLE EACHEYE SCH ×3 (05:37→18:17)
[2016-09-29 07:58] VITALS: BP 118/70
[2016-09-29 08:01] VITALS: BP_SYST 127; BP_SYST 144; BP_DIAS 59; BP_DIAS 78
[2016-09-29] MEDS: LEVETIRACETAM SOL (5 ML) 100 MG/ML UDC GT SCH ×2 (08:04→21:16)
[2016-09-29] MEDS: MULTIVITAMINS,THERAGRAN 1 UDTAB TABLET GT SCH (08:04)
[2016-09-29] MEDS: ASCORBIC ACID 500 MG TABLET GT SCH ×2 (08:04→16:41)
[2016-09-29] MEDS: BACLOFEN (10 MG) 10 MG TABLET GT SCH ×3 (08:04→16:41)
[2016-09-29] MEDS: POTASSIUM CHLORIDE 20 MEQ POWDER PACKET GT SCH (08:04)
[2016-09-29] MEDS: FERROUS SULFATE - FOR SA ONLY 330 MG/7.5 ML UDC GT SCH ×3 (08:04→16:41)
[2016-09-29] MEDS: ISONIAZID (300 MG) 300 MG TABLET GT SCH (08:04)
[2016-09-29] MEDS: GLYCOPYRROLATE 1 MG TABLET GT SCH ×2 (08:04→16:41)
[2016-09-29] MEDS: DOCUSATE SODIUM LIQ 100 MG/10 ML UDC GT SCH ×2 (08:04→16:41)
[2016-09-29] MEDS: HYDROGEN PEROXIDE 480 ML BOTTLE TP SCH ×2 (08:05→21:18)
[2016-09-29] MEDS: PYRIDOXINE HCL 50 MG TABLET GT SCH (08:05)
[2016-09-29] MEDS: Z GUARD REMEDY 4 OZ OINT TP SCH ×2 (08:08→21:20)
[2016-09-29 20:00] VITALS: BP 116/63
[2016-09-29] MEDS: SERTRALINE HCL 25 MG TABLET PO SCH (21:18)
[2016-09-29] MEDS: INSULIN DETEMIR 100 UNIT/ML CARTRIDGE SQ SCH (21:19)
[2016-09-30] MEDS: POLYVINYL ALCOHOL 15 ML BOTTLE EACHEYE SCH ×4 (00:34→17:36)
[2016-09-30] MEDS: GLYTROL 1,000 ML BAG GT PRN (00:55)
[2016-09-30] MEDS: ALBUTEROL FS 2.5 MG/3 ML VIAL.NEB NEB SCH ×4 (01:27→19:53)
[2016-09-30] MEDS: IPRATROPIUM NEB FS 0.5 MG/2.5 ML AMPUL.NEB NEB SCH ×4 (01:27→19:53)
[2016-09-30] MEDS: INSULIN LISPRO/ASPART 100 UNIT/ML CARTRIDGE SQ PRN (05:54)
[2016-09-30] MEDS: BLOOD SUGAR DIAGNOSTIC 1 EACH STRIP IN SCH ×2 (05:54→17:36)
[2016-09-30] MEDS: PANTOPRAZOLE 40 MG/PACK PACK GT SCH (05:54)
[2016-09-30 07:47] VITALS: BP 105/72
[2016-09-30] MEDS: DOCUSATE SODIUM LIQ 100 MG/10 ML UDC GT SCH ×2 (08:36→16:15)
[2016-09-30] MEDS: BACLOFEN (10 MG) 10 MG TABLET GT SCH ×3 (08:36→16:15)
[2016-09-30] MEDS: LEVETIRACETAM SOL (5 ML) 100 MG/ML UDC GT SCH ×2 (08:36→21:07)
[2016-09-30] MEDS: GLYCOPYRROLATE 1 MG TABLET GT SCH ×2 (08:36→16:15)
[2016-09-30] MEDS: PYRIDOXINE HCL 50 MG TABLET GT SCH (08:36)
[2016-09-30] MEDS: ISONIAZID (300 MG) 300 MG TABLET GT SCH (08:36)
[2016-09-30] MEDS: POTASSIUM CHLORIDE 20 MEQ POWDER PACKET GT SCH (08:36)
[2016-09-30] MEDS: MULTIVITAMINS,THERAGRAN 1 UDTAB TABLET GT SCH (08:36)
[2016-09-30] MEDS: FERROUS SULFATE - FOR SA ONLY 330 MG/7.5 ML UDC GT SCH ×3 (08:36→16:15)
[2016-09-30] MEDS: ASCORBIC ACID 500 MG TABLET GT SCH ×2 (08:43→16:15)
[2016-09-30] MEDS: HYDROGEN PEROXIDE 480 ML BOTTLE TP SCH ×2 (08:44→21:07)
[2016-09-30] MEDS: Z GUARD REMEDY 4 OZ OINT TP SCH ×2 (08:44→21:07)
[2016-09-30] MEDS: POLYETHYLENE GLYCOL 3350 17 GM POWD.PACK GT PRN (18:14)
[2016-09-30 20:16] VITALS: BP 114/86
[2016-09-30] MEDS: SERTRALINE HCL 25 MG TABLET PO SCH (21:07)
[2016-09-30] MEDS: INSULIN DETEMIR 100 UNIT/ML CARTRIDGE SQ SCH (21:08)
[2016-10-01] MEDS: POLYVINYL ALCOHOL 15 ML BOTTLE EACHEYE SCH ×4 (00:11→17:06)
[2016-10-01] MEDS: GLYTROL 1,000 ML BAG GT PRN ×2 (00:42→20:37)
[2016-10-01] MEDS: ALBUTEROL FS 2.5 MG/3 ML VIAL.NEB NEB SCH ×4 (01:38→19:18)
[2016-10-01] MEDS: IPRATROPIUM NEB FS 0.5 MG/2.5 ML AMPUL.NEB NEB SCH ×4 (01:38→19:18)
[2016-10-01] MEDS: PANTOPRAZOLE 40 MG/PACK PACK GT SCH (05:12)
[2016-10-01] MEDS: BLOOD SUGAR DIAGNOSTIC 1 EACH STRIP IN SCH ×2 (05:20→17:06)
[2016-10-01] MEDS: INSULIN LISPRO/ASPART 100 UNIT/ML CARTRIDGE SQ PRN (05:20)
[2016-10-01 07:29] VITALS: BP 101/62
[2016-10-01] MEDS: HYDROGEN PEROXIDE 480 ML BOTTLE TP SCH ×2 (08:36→21:21)
[2016-10-01] MEDS: BACLOFEN (10 MG) 10 MG TABLET GT SCH ×3 (08:36→17:06)
[2016-10-01] MEDS: MULTIVITAMINS,THERAGRAN 1 UDTAB TABLET GT SCH (08:36)
[2016-10-01] MEDS: ISONIAZID (300 MG) 300 MG TABLET GT SCH (08:36)
[2016-10-01] MEDS: POTASSIUM CHLORIDE 20 MEQ POWDER PACKET GT SCH (08:36)
[2016-10-01] MEDS: ASCORBIC ACID 500 MG TABLET GT SCH ×2 (08:36→17:06)
[2016-10-01] MEDS: GLYCOPYRROLATE 1 MG TABLET GT SCH ×2 (08:36→17:06)
[2016-10-01] MEDS: PYRIDOXINE HCL 50 MG TABLET GT SCH (08:36)
[2016-10-01] MEDS: LEVETIRACETAM SOL (5 ML) 100 MG/ML UDC GT SCH ×2 (08:36→20:36)
[2016-10-01] MEDS: FERROUS SULFATE - FOR SA ONLY 330 MG/7.5 ML UDC GT SCH ×3 (08:36→17:06)
[2016-10-01] MEDS: Z GUARD REMEDY 4 OZ OINT TP SCH ×2 (08:36→21:21)
[2016-10-01] MEDS: DOCUSATE SODIUM LIQ 100 MG/10 ML UDC GT SCH ×2 (08:36→17:06)
[2016-10-01 19:59] VITALS: BP 111/72
[2016-10-01] MEDS: INSULIN DETEMIR 100 UNIT/ML CARTRIDGE SQ SCH (21:22)
[2016-10-02] MEDS: IPRATROPIUM NEB FS 0.5 MG/2.5 ML AMPUL.NEB NEB SCH ×4 (01:07→19:59)
[2016-10-02] MEDS: ALBUTEROL FS 2.5 MG/3 ML VIAL.NEB NEB SCH ×4 (01:08→19:59)
[2016-10-02] MEDS: PANTOPRAZOLE 40 MG/PACK PACK GT SCH (06:06)
[2016-10-02] MEDS: BLOOD SUGAR DIAGNOSTIC 1 EACH STRIP IN SCH ×2 (06:06→17:25)
[2016-10-02] MEDS: POLYVINYL ALCOHOL 15 ML BOTTLE EACHEYE SCH ×4 (06:06→17:07)
[2016-10-02] MEDS: INSULIN LISPRO/ASPART 100 UNIT/ML CARTRIDGE SQ PRN (06:06)
[2016-10-02 07:36] VITALS: BP 102/65
[2016-10-02] MEDS: POTASSIUM CHLORIDE 20 MEQ POWDER PACKET GT SCH (08:08)
[2016-10-02] MEDS: BACLOFEN (10 MG) 10 MG TABLET GT SCH ×3 (08:08→17:07)
[2016-10-02] MEDS: Z GUARD REMEDY 4 OZ OINT TP SCH ×2 (08:08→21:29)
[2016-10-02] MEDS: PYRIDOXINE HCL 50 MG TABLET GT SCH (08:08)
[2016-10-02] MEDS: FERROUS SULFATE - FOR SA ONLY 330 MG/7.5 ML UDC GT SCH ×3 (08:08→17:07)
[2016-10-02] MEDS: DOCUSATE SODIUM LIQ 100 MG/10 ML UDC GT SCH ×2 (08:08→17:07)
[2016-10-02] MEDS: LEVETIRACETAM SOL (5 ML) 100 MG/ML UDC GT SCH ×2 (08:08→20:39)
[2016-10-02] MEDS: ISONIAZID (300 MG) 300 MG TABLET GT SCH (08:08)
[2016-10-02] MEDS: HYDROGEN PEROXIDE 480 ML BOTTLE TP SCH ×2 (08:08→21:29)
[2016-10-02] MEDS: ASCORBIC ACID 500 MG TABLET GT SCH ×2 (08:08→17:07)
[2016-10-02] MEDS: MULTIVITAMINS,THERAGRAN 1 UDTAB TABLET GT SCH (08:08)
[2016-10-02] MEDS: GLYCOPYRROLATE 1 MG TABLET GT SCH ×2 (08:08→17:07)
[2016-10-02 19:28] VITALS: BP 111/65
[2016-10-02] MEDS: INSULIN DETEMIR 100 UNIT/ML CARTRIDGE SQ SCH (21:30)
[2016-10-02 21:42] VITALS: BP 111/54
[2016-10-03] MEDS: POLYVINYL ALCOHOL 15 ML BOTTLE EACHEYE SCH ×4 (00:24→17:39)
[2016-10-03] MEDS: ALBUTEROL FS 2.5 MG/3 ML VIAL.NEB NEB SCH ×4 (01:25→19:30)
[2016-10-03] MEDS: IPRATROPIUM NEB FS 0.5 MG/2.5 ML AMPUL.NEB NEB SCH ×4 (01:25→19:30)
[2016-10-03] MEDS: PANTOPRAZOLE 40 MG/PACK PACK GT SCH (05:59)
[2016-10-03] MEDS: INSULIN LISPRO/ASPART 100 UNIT/ML CARTRIDGE SQ PRN (05:59)
[2016-10-03] MEDS: BLOOD SUGAR DIAGNOSTIC 1 EACH STRIP IN SCH ×2 (05:59→17:39)
[2016-10-03 07:35] VITALS: BP 99/58
[2016-10-03] MEDS: BACLOFEN (10 MG) 10 MG TABLET GT SCH ×3 (08:44→17:04)
[2016-10-03] MEDS: ISONIAZID (300 MG) 300 MG TABLET GT SCH (08:44)
[2016-10-03] MEDS: PYRIDOXINE HCL 50 MG TABLET GT SCH (08:44)
[2016-10-03] MEDS: MULTIVITAMINS,THERAGRAN 1 UDTAB TABLET GT SCH (08:44)
[2016-10-03] MEDS: DOCUSATE SODIUM LIQ 100 MG/10 ML UDC GT SCH ×2 (08:44→17:04)
[2016-10-03] MEDS: LEVETIRACETAM SOL (5 ML) 100 MG/ML UDC GT SCH ×2 (08:44→20:23)
[2016-10-03] MEDS: HYDROGEN PEROXIDE 480 ML BOTTLE TP SCH ×2 (08:44→20:24)
[2016-10-03] MEDS: GLYCOPYRROLATE 1 MG TABLET GT SCH ×2 (08:44→17:04)
[2016-10-03] MEDS: ASCORBIC ACID 500 MG TABLET GT SCH ×2 (08:44→17:04)
[2016-10-03] MEDS: FERROUS SULFATE - FOR SA ONLY 330 MG/7.5 ML UDC GT SCH ×3 (08:44→17:04)
[2016-10-03] MEDS: POTASSIUM CHLORIDE 20 MEQ POWDER PACKET GT SCH (08:44)
[2016-10-03] MEDS: Z GUARD REMEDY 4 OZ OINT TP SCH ×2 (08:45→20:24)
[2016-10-03] MEDS: GLYTROL 1,000 ML BAG GT PRN (17:43)
[2016-10-03 19:38] VITALS: BP 106/66
[2016-10-03] MEDS: INSULIN DETEMIR 100 UNIT/ML CARTRIDGE SQ SCH (21:57)
[2016-10-04] MEDS: POLYVINYL ALCOHOL 15 ML BOTTLE EACHEYE SCH ×4 (00:25→17:07)
[2016-10-04] MEDS: ALBUTEROL FS 2.5 MG/3 ML VIAL.NEB NEB SCH ×4 (01:42→19:30)
[2016-10-04] MEDS: IPRATROPIUM NEB FS 0.5 MG/2.5 ML AMPUL.NEB NEB SCH ×4 (01:42→19:30)
[2016-10-04] MEDS: PANTOPRAZOLE 40 MG/PACK PACK GT SCH (05:18)
[2016-10-04] MEDS: BLOOD SUGAR DIAGNOSTIC 1 EACH STRIP IN SCH ×2 (05:18→17:07)
[2016-10-04 07:27] VITALS: BP 105/65
[2016-10-04] MEDS: HYDROGEN PEROXIDE 480 ML BOTTLE TP SCH ×2 (08:29→20:11)
[2016-10-04] MEDS: Z GUARD REMEDY 4 OZ OINT TP SCH ×2 (08:29→20:11)
[2016-10-04] MEDS: GLYCOPYRROLATE 1 MG TABLET GT SCH ×2 (08:29→16:03)
[2016-10-04] MEDS: MULTIVITAMINS,THERAGRAN 1 UDTAB TABLET GT SCH (08:29)
[2016-10-04] MEDS: ASCORBIC ACID 500 MG TABLET GT SCH ×2 (08:29→16:04)
[2016-10-04] MEDS: LEVETIRACETAM SOL (5 ML) 100 MG/ML UDC GT SCH ×2 (08:29→20:11)
[2016-10-04] MEDS: PYRIDOXINE HCL 50 MG TABLET GT SCH (08:29)
[2016-10-04] MEDS: ISONIAZID (300 MG) 300 MG TABLET GT SCH (08:29)
[2016-10-04] MEDS: BACLOFEN (10 MG) 10 MG TABLET GT SCH ×3 (08:29→16:03)
[2016-10-04] MEDS: POTASSIUM CHLORIDE 20 MEQ POWDER PACKET GT SCH (08:29)
[2016-10-04] MEDS: DOCUSATE SODIUM LIQ 100 MG/10 ML UDC GT SCH ×2 (08:29→16:02)
[2016-10-04] MEDS: FERROUS SULFATE - FOR SA ONLY 330 MG/7.5 ML UDC GT SCH ×3 (08:29→16:02)
[2016-10-04 19:59] VITALS: BP 115/73
[2016-10-04] MEDS: INSULIN DETEMIR 100 UNIT/ML CARTRIDGE SQ SCH (22:17)
[2016-10-05] MEDS: POLYVINYL ALCOHOL 15 ML BOTTLE EACHEYE SCH ×4 (00:09→17:14)
[2016-10-05] MEDS: ALBUTEROL FS 2.5 MG/3 ML VIAL.NEB NEB SCH ×4 (01:30→19:30)
[2016-10-05] MEDS: IPRATROPIUM NEB FS 0.5 MG/2.5 ML AMPUL.NEB NEB SCH ×4 (01:30→19:30)
[2016-10-05] MEDS: BLOOD SUGAR DIAGNOSTIC 1 EACH STRIP IN SCH ×2 (05:25→17:14)
[2016-10-05] MEDS: PANTOPRAZOLE 40 MG/PACK PACK GT SCH (05:25)
[2016-10-05 07:46] VITALS: BP 107/70
[2016-10-05] MEDS: DOCUSATE SODIUM LIQ 100 MG/10 ML UDC GT SCH ×2 (08:25→16:06)
[2016-10-05] MEDS: MULTIVITAMINS,THERAGRAN 1 UDTAB TABLET GT SCH (08:25)
[2016-10-05] MEDS: BACLOFEN (10 MG) 10 MG TABLET GT SCH ×3 (08:25→16:05)
[2016-10-05] MEDS: Z GUARD REMEDY 4 OZ OINT TP SCH ×2 (08:25→20:16)
[2016-10-05] MEDS: ISONIAZID (300 MG) 300 MG TABLET GT SCH (08:25)
[2016-10-05] MEDS: ASCORBIC ACID 500 MG TABLET GT SCH ×2 (08:25→16:08)
[2016-10-05] MEDS: FERROUS SULFATE - FOR SA ONLY 330 MG/7.5 ML UDC GT SCH ×3 (08:25→16:06)
[2016-10-05] MEDS: GLYCOPYRROLATE 1 MG TABLET GT SCH ×2 (08:25→16:05)
[2016-10-05] MEDS: LEVETIRACETAM SOL (5 ML) 100 MG/ML UDC GT SCH ×2 (08:25→20:15)
[2016-10-05] MEDS: PYRIDOXINE HCL 50 MG TABLET GT SCH (08:25)
[2016-10-05] MEDS: POTASSIUM CHLORIDE 20 MEQ POWDER PACKET GT SCH (08:25)
[2016-10-05] MEDS: HYDROGEN PEROXIDE 480 ML BOTTLE TP SCH ×2 (08:25→20:16)
--- NOTE | 2016-10-05 11:00 | NUR ---
Seen by Dr. Alvarez. FIRE ENGINE OPERATOR Mya said to ask Dr. Alvarez if he wanted to do weaning trials again. Charge nurse asked Dr. Alvarez, received order place pt on SIMV 4 PSV 12 Peep 5 tomorrow and do ABG 1 hour post vent change.
[2016-10-05 19:47] VITALS: BP 101/64
[2016-10-05] MEDS: INSULIN DETEMIR 100 UNIT/ML CARTRIDGE SQ SCH (22:07)
[2016-10-06] MEDS: POLYVINYL ALCOHOL 15 ML BOTTLE EACHEYE SCH ×4 (00:04→17:14)
[2016-10-06] MEDS: IPRATROPIUM NEB FS 0.5 MG/2.5 ML AMPUL.NEB NEB SCH ×4 (02:23→19:30)
[2016-10-06] MEDS: ALBUTEROL FS 2.5 MG/3 ML VIAL.NEB NEB SCH ×4 (02:23→19:30)
[2016-10-06] MEDS: BLOOD SUGAR DIAGNOSTIC 1 EACH STRIP IN SCH ×2 (05:17→17:54)
[2016-10-06] MEDS: PANTOPRAZOLE 40 MG/PACK PACK GT SCH (05:17)
[2016-10-06 07:55] VITALS: BP 104/67
[2016-10-06] MEDS: BACLOFEN (10 MG) 10 MG TABLET GT SCH ×3 (08:46→17:14)
[2016-10-06] MEDS: LEVETIRACETAM SOL (5 ML) 100 MG/ML UDC GT SCH ×2 (08:46→21:09)
[2016-10-06] MEDS: ISONIAZID (300 MG) 300 MG TABLET GT SCH (08:46)
[2016-10-06] MEDS: PYRIDOXINE HCL 50 MG TABLET GT SCH (08:46)
[2016-10-06] MEDS: MULTIVITAMINS,THERAGRAN 1 UDTAB TABLET GT SCH (08:46)
[2016-10-06] MEDS: DOCUSATE SODIUM LIQ 100 MG/10 ML UDC GT SCH ×2 (08:46→17:14)
[2016-10-06] MEDS: POTASSIUM CHLORIDE 20 MEQ POWDER PACKET GT SCH (08:46)
[2016-10-06] MEDS: FERROUS SULFATE - FOR SA ONLY 330 MG/7.5 ML UDC GT SCH ×3 (08:46→17:14)
[2016-10-06] MEDS: ASCORBIC ACID 500 MG TABLET GT SCH ×2 (08:46→17:14)
[2016-10-06] MEDS: GLYCOPYRROLATE 1 MG TABLET GT SCH ×2 (08:46→17:14)
[2016-10-06] MEDS: Z GUARD REMEDY 4 OZ OINT TP SCH ×2 (09:15→21:09)
[2016-10-06] MEDS: HYDROGEN PEROXIDE 480 ML BOTTLE TP SCH ×2 (09:15→21:09)
[2016-10-06 11:10] LABS: ABG BASE EXCESS 1.3 mmol/L; ABG OXYGEN SATURATION 96.6 % (92.0-98.5); ABG PCO2 50.9 mmHg (35.0-45.0); ABG PH 7.352 (7.350-7.450); ABG PO2 97.8 mmHg (75.0-100.0); AaDO2 128.9 mmHg; COHb 0.7 % (0.5-1.5); MetHb 0.8 % (0.0-1.5); O2Hb 95.2 % (94.0-97.0); SITE, ABG Left Radial; VENT MODE, BG simv 4 500 40% ps 15 +5
--- NOTE | 2016-10-06 11:38 | NUR ---
Patient changed to SIMV and ordered ABG, results called in to Dr. Alvarez with new orders to continue on SIMV, cool aerosol in am and check ABG after 2 hours. Noted and carried out.
[2016-10-06] MEDS: GLYTROL 1,000 ML BAG GT PRN (12:00)
[2016-10-06 19:39] VITALS: BP 111/63
--- NOTE | 2016-10-06 20:35 | NUR ---
PT REC'D ON TRACH VAHE 6 ON VENT SETTINGS CHARTED. TRACH IS SECURE AND IS IN PROPER POSITION. NO RESP DISTRESS NOTED. VENT ALARMS ARE SET AND AUDIBLE. VENT IS PLUGGED IN RED OUTLET AMBU BAG IS BEDSIDE. SX MODERATE THICK WHITE SECRETIONS. WILL CONTINUE TO MONITOR. Addendum: 10/07/16 at 0415 by PETER MARADIAGA RT Amended: Links added.
[2016-10-06] MEDS: INSULIN DETEMIR 100 UNIT/ML CARTRIDGE SQ SCH (21:18)
[2016-10-07] MEDS: POLYVINYL ALCOHOL 15 ML BOTTLE EACHEYE SCH ×5 (00:13→23:53)
[2016-10-07] MEDS: ALBUTEROL FS 2.5 MG/3 ML VIAL.NEB NEB SCH ×4 (01:30→20:06)
[2016-10-07] MEDS: IPRATROPIUM NEB FS 0.5 MG/2.5 ML AMPUL.NEB NEB SCH ×4 (01:30→20:06)
[2016-10-07] MEDS: BLOOD SUGAR DIAGNOSTIC 1 EACH STRIP IN SCH ×2 (06:03→17:23)
[2016-10-07] MEDS: INSULIN LISPRO/ASPART 100 UNIT/ML CARTRIDGE SQ PRN (06:03)
[2016-10-07] MEDS: PANTOPRAZOLE 40 MG/PACK PACK GT SCH (06:03)
[2016-10-07] MEDS: GLYTROL 1,000 ML BAG GT PRN (06:04)
--- NOTE | 2016-10-07 06:28 | NUR ---
Pt episodes of apnea during the night,no distress noted.Will continue to monitor.
[2016-10-07 07:59] VITALS: BP 102/60
[2016-10-07] MEDS: LEVETIRACETAM SOL (5 ML) 100 MG/ML UDC GT SCH ×2 (08:29→21:12)
[2016-10-07] MEDS: BACLOFEN (10 MG) 10 MG TABLET GT SCH ×3 (08:29→16:13)
[2016-10-07] MEDS: DOCUSATE SODIUM LIQ 100 MG/10 ML UDC GT SCH ×2 (08:29→16:12)
[2016-10-07] MEDS: POTASSIUM CHLORIDE 20 MEQ POWDER PACKET GT SCH (08:29)
[2016-10-07] MEDS: ISONIAZID (300 MG) 300 MG TABLET GT SCH (08:29)
[2016-10-07] MEDS: POLYETHYLENE GLYCOL 3350 17 GM POWD.PACK GT PRN (08:29)
[2016-10-07] MEDS: MULTIVITAMINS,THERAGRAN 1 UDTAB TABLET GT SCH (08:29)
[2016-10-07] MEDS: ASCORBIC ACID 500 MG TABLET GT SCH ×2 (08:29→16:13)
[2016-10-07] MEDS: PYRIDOXINE HCL 50 MG TABLET GT SCH (08:29)
[2016-10-07] MEDS: GLYCOPYRROLATE 1 MG TABLET GT SCH ×2 (08:29→16:12)
[2016-10-07] MEDS: FERROUS SULFATE - FOR SA ONLY 330 MG/7.5 ML UDC GT SCH ×3 (08:29→16:12)
--- NOTE | 2016-10-07 08:38 | NUR ---
RT PLACED PT BACK ON AC MODE DUE TO APNEA EPISODES. ASHKAN UDRAND AND CHARGE NURSE KONRAD NOTIFIED.
[2016-10-07] MEDS: HYDROGEN PEROXIDE 480 ML BOTTLE TP SCH ×2 (09:00→21:12)
[2016-10-07] MEDS: Z GUARD REMEDY 4 OZ OINT TP SCH ×2 (09:00→21:12)
--- NOTE | 2016-10-07 09:17 | NUR ---
Pt had episodes of apnea on SIMV. RT Daniel placed pt back on AC 12 VT 500 FiO2 40%. Pt was supposed to go on cool aerosol today. Notified Dr. Alvarez.
[2016-10-07 19:37] VITALS: BP 100/66
[2016-10-07] MEDS: INSULIN DETEMIR 100 UNIT/ML CARTRIDGE SQ SCH (21:13)
[2016-10-08] MEDS: IPRATROPIUM NEB FS 0.5 MG/2.5 ML AMPUL.NEB NEB SCH ×4 (01:22→19:33)
[2016-10-08] MEDS: ALBUTEROL FS 2.5 MG/3 ML VIAL.NEB NEB SCH ×4 (01:22→19:33)
[2016-10-08] MEDS: GLYTROL 1,000 ML BAG GT PRN (03:37)
[2016-10-08] MEDS: PANTOPRAZOLE 40 MG/PACK PACK GT SCH (05:19)
[2016-10-08] MEDS: POLYVINYL ALCOHOL 15 ML BOTTLE EACHEYE SCH ×3 (05:19→17:19)
[2016-10-08] MEDS: BLOOD SUGAR DIAGNOSTIC 1 EACH STRIP IN SCH ×2 (05:19→17:19)
[2016-10-08] MEDS: INSULIN LISPRO/ASPART 100 UNIT/ML CARTRIDGE SQ PRN ×2 (05:20→17:19)
[2016-10-08 07:48] VITALS: BP 104/71
[2016-10-08] MEDS: DOCUSATE SODIUM LIQ 100 MG/10 ML UDC GT SCH ×2 (09:50→16:45)
[2016-10-08] MEDS: ISONIAZID (300 MG) 300 MG TABLET GT SCH (09:50)
[2016-10-08] MEDS: FERROUS SULFATE - FOR SA ONLY 330 MG/7.5 ML UDC GT SCH ×3 (09:50→16:45)
[2016-10-08] MEDS: GLYCOPYRROLATE 1 MG TABLET GT SCH ×2 (09:50→16:45)
[2016-10-08] MEDS: LEVETIRACETAM SOL (5 ML) 100 MG/ML UDC GT SCH ×2 (09:51→20:39)
[2016-10-08] MEDS: ASCORBIC ACID 500 MG TABLET GT SCH ×2 (09:53→16:45)
[2016-10-08] MEDS: POTASSIUM CHLORIDE 20 MEQ POWDER PACKET GT SCH (09:53)
[2016-10-08] MEDS: MULTIVITAMINS,THERAGRAN 1 UDTAB TABLET GT SCH (09:53)
[2016-10-08] MEDS: Z GUARD REMEDY 4 OZ OINT TP SCH ×2 (09:53→20:40)
[2016-10-08] MEDS: PYRIDOXINE HCL 50 MG TABLET GT SCH (09:53)
[2016-10-08] MEDS: HYDROGEN PEROXIDE 480 ML BOTTLE TP SCH ×2 (09:53→20:40)
[2016-10-08] MEDS: BACLOFEN (10 MG) 10 MG TABLET GT SCH ×3 (09:53→16:45)
[2016-10-08 19:20] VITALS: BP 106/66
[2016-10-08] MEDS: INSULIN DETEMIR 100 UNIT/ML CARTRIDGE SQ SCH (21:16)
[2016-10-09] MEDS: POLYVINYL ALCOHOL 15 ML BOTTLE EACHEYE SCH ×4 (00:04→17:09)
[2016-10-09] MEDS: GLYTROL 1,000 ML BAG GT PRN (00:39)
[2016-10-09] MEDS: IPRATROPIUM NEB FS 0.5 MG/2.5 ML AMPUL.NEB NEB SCH ×4 (01:22→20:20)
[2016-10-09] MEDS: ALBUTEROL FS 2.5 MG/3 ML VIAL.NEB NEB SCH ×4 (01:22→20:20)
[2016-10-09] MEDS: BLOOD SUGAR DIAGNOSTIC 1 EACH STRIP IN SCH ×2 (05:39→17:09)
[2016-10-09] MEDS: INSULIN LISPRO/ASPART 100 UNIT/ML CARTRIDGE SQ PRN ×2 (05:39→17:32)
[2016-10-09] MEDS: PANTOPRAZOLE 40 MG/PACK PACK GT SCH (05:39)
[2016-10-09 07:42] VITALS: BP 100/74
[2016-10-09] MEDS: DOCUSATE SODIUM LIQ 100 MG/10 ML UDC GT SCH ×2 (08:29→17:09)
[2016-10-09] MEDS: FERROUS SULFATE - FOR SA ONLY 330 MG/7.5 ML UDC GT SCH ×3 (08:29→17:09)
[2016-10-09] MEDS: GLYCOPYRROLATE 1 MG TABLET GT SCH ×2 (08:30→17:09)
[2016-10-09] MEDS: ISONIAZID (300 MG) 300 MG TABLET GT SCH (08:32)
[2016-10-09] MEDS: PYRIDOXINE HCL 50 MG TABLET GT SCH (08:32)
[2016-10-09] MEDS: LEVETIRACETAM SOL (5 ML) 100 MG/ML UDC GT SCH ×2 (08:32→20:54)
[2016-10-09] MEDS: ASCORBIC ACID 500 MG TABLET GT SCH ×2 (08:32→17:09)
[2016-10-09] MEDS: HYDROGEN PEROXIDE 480 ML BOTTLE TP SCH ×2 (08:32→20:54)
[2016-10-09] MEDS: MULTIVITAMINS,THERAGRAN 1 UDTAB TABLET GT SCH (08:32)
[2016-10-09] MEDS: BACLOFEN (10 MG) 10 MG TABLET GT SCH ×3 (08:32→17:09)
[2016-10-09] MEDS: POTASSIUM CHLORIDE 20 MEQ POWDER PACKET GT SCH (08:32)
[2016-10-09] MEDS: Z GUARD REMEDY 4 OZ OINT TP SCH ×2 (08:32→20:54)
[2016-10-09 19:52] VITALS: BP 101/68
[2016-10-09] MEDS: INSULIN DETEMIR 100 UNIT/ML CARTRIDGE SQ SCH (21:42)
[2016-10-10] MEDS: POLYVINYL ALCOHOL 15 ML BOTTLE EACHEYE SCH ×5 (00:39→23:58)
[2016-10-10] MEDS: GLYTROL 1,000 ML BAG GT PRN (00:39)
[2016-10-10] MEDS: IPRATROPIUM NEB FS 0.5 MG/2.5 ML AMPUL.NEB NEB SCH ×4 (01:43→19:44)
[2016-10-10] MEDS: ALBUTEROL FS 2.5 MG/3 ML VIAL.NEB NEB SCH ×4 (01:43→19:44)
[2016-10-10] MEDS: PANTOPRAZOLE 40 MG/PACK PACK GT SCH (05:21)
[2016-10-10] MEDS: BLOOD SUGAR DIAGNOSTIC 1 EACH STRIP IN SCH ×2 (05:21→17:18)
[2016-10-10] MEDS: INSULIN LISPRO/ASPART 100 UNIT/ML CARTRIDGE SQ PRN (05:21)
[2016-10-10 08:06] VITALS: BP 108/65
[2016-10-10] MEDS: GLYCOPYRROLATE 1 MG TABLET GT SCH ×2 (09:00→17:03)
[2016-10-10] MEDS: MULTIVITAMINS,THERAGRAN 1 UDTAB TABLET GT SCH (09:00)
[2016-10-10] MEDS: HYDROGEN PEROXIDE 480 ML BOTTLE TP SCH ×2 (09:00→20:12)
[2016-10-10] MEDS: BACLOFEN (10 MG) 10 MG TABLET GT SCH ×3 (09:00→17:03)
[2016-10-10] MEDS: DOCUSATE SODIUM LIQ 100 MG/10 ML UDC GT SCH ×2 (09:00→17:03)
[2016-10-10] MEDS: ASCORBIC ACID 500 MG TABLET GT SCH ×2 (09:00→17:03)
[2016-10-10] MEDS: Z GUARD REMEDY 4 OZ OINT TP SCH ×2 (09:00→20:13)
[2016-10-10] MEDS: PYRIDOXINE HCL 50 MG TABLET GT SCH (09:00)
[2016-10-10] MEDS: ISONIAZID (300 MG) 300 MG TABLET GT SCH (09:00)
[2016-10-10] MEDS: POTASSIUM CHLORIDE 20 MEQ POWDER PACKET GT SCH (09:00)
[2016-10-10] MEDS: FERROUS SULFATE - FOR SA ONLY 330 MG/7.5 ML UDC GT SCH ×3 (09:00→17:03)
[2016-10-10] MEDS: LEVETIRACETAM SOL (5 ML) 100 MG/ML UDC GT SCH ×2 (09:00→20:11)
[2016-10-10 20:00] VITALS: BP 104/70
[2016-10-10] MEDS: INSULIN DETEMIR 100 UNIT/ML CARTRIDGE SQ SCH (22:00)
[2016-10-11] MEDS: ALBUTEROL FS 2.5 MG/3 ML VIAL.NEB NEB SCH ×4 (01:09→19:30)
[2016-10-11] MEDS: IPRATROPIUM NEB FS 0.5 MG/2.5 ML AMPUL.NEB NEB SCH ×4 (01:09→19:30)
[2016-10-11] MEDS: POLYVINYL ALCOHOL 15 ML BOTTLE EACHEYE SCH ×4 (05:13→23:57)
[2016-10-11] MEDS: PANTOPRAZOLE 40 MG/PACK PACK GT SCH (05:13)
[2016-10-11] MEDS: BLOOD SUGAR DIAGNOSTIC 1 EACH STRIP IN SCH ×2 (05:14→17:07)
[2016-10-11] MEDS: FERROUS SULFATE - FOR SA ONLY 330 MG/7.5 ML UDC GT SCH ×3 (08:13→16:29)
[2016-10-11] MEDS: DOCUSATE SODIUM LIQ 100 MG/10 ML UDC GT SCH ×2 (08:13→16:29)
[2016-10-11 08:14] VITALS: BP 118/71
[2016-10-11] MEDS: GLYCOPYRROLATE 1 MG TABLET GT SCH ×2 (08:15→16:29)
[2016-10-11] MEDS: ISONIAZID (300 MG) 300 MG TABLET GT SCH (08:16)
[2016-10-11] MEDS: LEVETIRACETAM SOL (5 ML) 100 MG/ML UDC GT SCH ×2 (08:16→20:09)
[2016-10-11] MEDS: POTASSIUM CHLORIDE 20 MEQ POWDER PACKET GT SCH (08:17)
[2016-10-11] MEDS: PYRIDOXINE HCL 50 MG TABLET GT SCH (08:18)
[2016-10-11] MEDS: BACLOFEN (10 MG) 10 MG TABLET GT SCH ×3 (08:18→16:29)
[2016-10-11] MEDS: ASCORBIC ACID 500 MG TABLET GT SCH ×2 (08:25→16:29)
[2016-10-11] MEDS: [UNRECOGNIZED DRUG - OTHER] GT SCH (08:25)
[2016-10-11] MEDS: Z GUARD REMEDY 4 OZ OINT TP SCH ×2 (09:00→20:10)
[2016-10-11] MEDS: HYDROGEN PEROXIDE 480 ML BOTTLE TP SCH ×2 (09:00→20:10)
[2016-10-11 19:53] VITALS: BP 100/68
[2016-10-11] MEDS: INSULIN DETEMIR 100 UNIT/ML CARTRIDGE SQ SCH (21:57)
[2016-10-12] MEDS: ALBUTEROL FS 2.5 MG/3 ML VIAL.NEB NEB SCH ×4 (02:14→19:30)
[2016-10-12] MEDS: IPRATROPIUM NEB FS 0.5 MG/2.5 ML AMPUL.NEB NEB SCH ×4 (02:14→19:30)
[2016-10-12] MEDS: BLOOD SUGAR DIAGNOSTIC 1 EACH STRIP IN SCH ×2 (05:17→17:07)
[2016-10-12] MEDS: PANTOPRAZOLE 40 MG/PACK PACK GT SCH (05:17)
[2016-10-12] MEDS: POLYVINYL ALCOHOL 15 ML BOTTLE EACHEYE SCH ×3 (05:17→16:58)
[2016-10-12 07:49] VITALS: BP 106/68
[2016-10-12] MEDS: Z GUARD REMEDY 4 OZ OINT TP SCH ×2 (08:03→20:13)
[2016-10-12] MEDS: PYRIDOXINE HCL 50 MG TABLET GT SCH (08:03)
[2016-10-12] MEDS: LEVETIRACETAM SOL (5 ML) 100 MG/ML UDC GT SCH ×2 (08:03→20:13)
[2016-10-12] MEDS: DOCUSATE SODIUM LIQ 100 MG/10 ML UDC GT SCH ×2 (08:03→16:56)
[2016-10-12] MEDS: BACLOFEN (10 MG) 10 MG TABLET GT SCH ×3 (08:03→16:57)
[2016-10-12] MEDS: GLYCOPYRROLATE 1 MG TABLET GT SCH ×2 (08:03→16:57)
[2016-10-12] MEDS: ASCORBIC ACID 500 MG TABLET GT SCH ×2 (08:03→16:57)
[2016-10-12] MEDS: [UNRECOGNIZED DRUG - OTHER] GT SCH (08:03)
[2016-10-12] MEDS: POTASSIUM CHLORIDE 20 MEQ POWDER PACKET GT SCH (08:03)
[2016-10-12] MEDS: FERROUS SULFATE - FOR SA ONLY 330 MG/7.5 ML UDC GT SCH ×3 (08:03→16:56)
[2016-10-12] MEDS: HYDROGEN PEROXIDE 480 ML BOTTLE TP SCH ×2 (08:03→20:13)
[2016-10-12] MEDS: ISONIAZID (300 MG) 300 MG TABLET GT SCH (08:03)
--- NOTE | 2016-10-12 09:00 | NUR ---
Seen and examined by Dr Alvarez with no new order
--- NOTE | 2016-10-12 09:30 | NUR ---
RN NOTES RECEIVED PT ON BED, STABLE CONDITION , TRACH SUCTION DONE ,,CONTINUE TO MONITOR .
--- NOTE | 2016-10-12 18:17 | NUR ---
RN NOTES PT REMAINS STABLE, NO SIGNIFICANT CHANGES NOTED ON THIS SHIFT
[2016-10-12] MEDS: INSULIN DETEMIR 100 UNIT/ML CARTRIDGE SQ SCH (22:26)
[2016-10-13] MEDS: POLYVINYL ALCOHOL 15 ML BOTTLE EACHEYE SCH ×4 (00:25→17:19)
[2016-10-13] MEDS: ALBUTEROL FS 2.5 MG/3 ML VIAL.NEB NEB SCH ×4 (02:25→20:07)
[2016-10-13] MEDS: IPRATROPIUM NEB FS 0.5 MG/2.5 ML AMPUL.NEB NEB SCH ×4 (02:25→20:07)
[2016-10-13] MEDS: BLOOD SUGAR DIAGNOSTIC 1 EACH STRIP IN SCH ×2 (05:25→17:19)
[2016-10-13] MEDS: PANTOPRAZOLE 40 MG/PACK PACK GT SCH (05:25)
[2016-10-13 07:56] VITALS: BP 110/73
[2016-10-13] MEDS: LEVETIRACETAM SOL (5 ML) 100 MG/ML UDC GT SCH ×2 (08:23→20:44)
[2016-10-13] MEDS: GLYCOPYRROLATE 1 MG TABLET GT SCH ×2 (08:23→16:54)
[2016-10-13] MEDS: FERROUS SULFATE - FOR SA ONLY 330 MG/7.5 ML UDC GT SCH ×3 (08:23→16:54)
[2016-10-13] MEDS: ISONIAZID (300 MG) 300 MG TABLET GT SCH (08:23)
[2016-10-13] MEDS: DOCUSATE SODIUM LIQ 100 MG/10 ML UDC GT SCH ×2 (08:23→16:54)
[2016-10-13] MEDS: POTASSIUM CHLORIDE 20 MEQ POWDER PACKET GT SCH (08:24)
[2016-10-13] MEDS: BACLOFEN (10 MG) 10 MG TABLET GT SCH ×3 (08:24→16:54)
[2016-10-13] MEDS: [UNRECOGNIZED DRUG - OTHER] GT SCH (08:24)
[2016-10-13] MEDS: ASCORBIC ACID 500 MG TABLET GT SCH ×2 (08:24→16:54)
[2016-10-13] MEDS: HYDROGEN PEROXIDE 480 ML BOTTLE TP SCH ×2 (08:24→20:44)
[2016-10-13] MEDS: Z GUARD REMEDY 4 OZ OINT TP SCH ×2 (08:24→20:44)
[2016-10-13] MEDS: PYRIDOXINE HCL 50 MG TABLET GT SCH (08:24)
[2016-10-13] MEDS: INSULIN DETEMIR 100 UNIT/ML CARTRIDGE SQ SCH (21:06)
[2016-10-13 21:30] VITALS: BP 108/72
[2016-10-14] MEDS: POLYVINYL ALCOHOL 15 ML BOTTLE EACHEYE SCH ×5 (00:48→23:34)
[2016-10-14] MEDS: ALBUTEROL FS 2.5 MG/3 ML VIAL.NEB NEB SCH ×4 (01:40→19:33)
[2016-10-14] MEDS: IPRATROPIUM NEB FS 0.5 MG/2.5 ML AMPUL.NEB NEB SCH ×4 (02:01→19:33)
[2016-10-14] MEDS: GLYTROL 1,000 ML BAG GT PRN ×2 (05:07→23:34)
[2016-10-14] MEDS: POLYETHYLENE GLYCOL 3350 17 GM POWD.PACK GT PRN (05:07)
[2016-10-14] MEDS: PANTOPRAZOLE 40 MG/PACK PACK GT SCH (05:07)
[2016-10-14] MEDS: BLOOD SUGAR DIAGNOSTIC 1 EACH STRIP IN SCH ×2 (05:07→17:21)
[2016-10-14 07:41] VITALS: BP 124/68
[2016-10-14] MEDS: POTASSIUM CHLORIDE 20 MEQ POWDER PACKET GT SCH (08:30)
[2016-10-14] MEDS: FERROUS SULFATE - FOR SA ONLY 330 MG/7.5 ML UDC GT SCH ×3 (08:30→16:56)
[2016-10-14] MEDS: ISONIAZID (300 MG) 300 MG TABLET GT SCH (08:30)
[2016-10-14] MEDS: BACLOFEN (10 MG) 10 MG TABLET GT SCH ×3 (08:30→16:56)
[2016-10-14] MEDS: DOCUSATE SODIUM LIQ 100 MG/10 ML UDC GT SCH ×2 (08:30→16:56)
[2016-10-14] MEDS: LEVETIRACETAM SOL (5 ML) 100 MG/ML UDC GT SCH ×2 (08:30→20:04)
[2016-10-14] MEDS: [UNRECOGNIZED DRUG - OTHER] GT SCH (08:30)
[2016-10-14] MEDS: GLYCOPYRROLATE 1 MG TABLET GT SCH ×2 (08:30→16:56)
[2016-10-14] MEDS: ASCORBIC ACID 500 MG TABLET GT SCH ×2 (08:31→16:56)
[2016-10-14] MEDS: PYRIDOXINE HCL 50 MG TABLET GT SCH (08:31)
[2016-10-14] MEDS: Z GUARD REMEDY 4 OZ OINT TP SCH ×2 (08:31→20:04)
[2016-10-14] MEDS: HYDROGEN PEROXIDE 480 ML BOTTLE TP SCH ×2 (08:31→20:04)
--- NOTE | 2016-10-14 13:00 | NUR ---
Seen by SHINGLE TRIMMER Mya Rodgers. Notified her that pt's urine has a strong odor, pt afebrile. Received order to increase water flushes to 200 cc q 6 hours.
--- NOTE | 2016-10-14 14:09 | NUR ---
Head circumference measured 56cm.
[2016-10-14] MEDS: INSULIN DETEMIR 100 UNIT/ML CARTRIDGE SQ SCH (21:06)
[2016-10-14 21:11] VITALS: BP 103/68
[2016-10-15] MEDS: IPRATROPIUM NEB FS 0.5 MG/2.5 ML AMPUL.NEB NEB SCH ×4 (01:52→19:30)
[2016-10-15] MEDS: ALBUTEROL FS 2.5 MG/3 ML VIAL.NEB NEB SCH ×4 (01:54→19:30)
[2016-10-15] MEDS: PANTOPRAZOLE 40 MG/PACK PACK GT SCH (05:10)
[2016-10-15] MEDS: INSULIN LISPRO/ASPART 100 UNIT/ML CARTRIDGE SQ PRN ×2 (05:10→17:50)
[2016-10-15] MEDS: BLOOD SUGAR DIAGNOSTIC 1 EACH STRIP IN SCH ×2 (05:10→17:37)
[2016-10-15] MEDS: POLYVINYL ALCOHOL 15 ML BOTTLE EACHEYE SCH ×4 (05:10→23:11)
[2016-10-15] MEDS: ACETAMINOPHEN 650 MG/20 ML UDC- FOR SA PATIENTS ONLY GT PRN (05:28)
[2016-10-15 07:52] VITALS: BP 110/58
[2016-10-15] MEDS: POTASSIUM CHLORIDE 20 MEQ POWDER PACKET GT SCH (09:13)
[2016-10-15] MEDS: HYDROGEN PEROXIDE 480 ML BOTTLE TP SCH ×2 (09:13→20:31)
[2016-10-15] MEDS: GLYCOPYRROLATE 1 MG TABLET GT SCH ×2 (09:13→17:37)
[2016-10-15] MEDS: LEVETIRACETAM SOL (5 ML) 100 MG/ML UDC GT SCH ×2 (09:13→20:31)
[2016-10-15] MEDS: FERROUS SULFATE - FOR SA ONLY 330 MG/7.5 ML UDC GT SCH ×3 (09:13→17:37)
[2016-10-15] MEDS: ISONIAZID (300 MG) 300 MG TABLET GT SCH (09:13)
[2016-10-15] MEDS: [UNRECOGNIZED DRUG - OTHER] GT SCH (09:13)
[2016-10-15] MEDS: ASCORBIC ACID 500 MG TABLET GT SCH ×2 (09:13→17:37)
[2016-10-15] MEDS: DOCUSATE SODIUM LIQ 100 MG/10 ML UDC GT SCH ×2 (09:13→17:37)
[2016-10-15] MEDS: PYRIDOXINE HCL 50 MG TABLET GT SCH (09:13)
[2016-10-15] MEDS: BACLOFEN (10 MG) 10 MG TABLET GT SCH ×3 (09:13→17:37)
[2016-10-15] MEDS: Z GUARD REMEDY 4 OZ OINT TP SCH ×2 (09:14→20:31)
[2016-10-15 20:07] VITALS: BP 108/75
[2016-10-15] MEDS: POLYETHYLENE GLYCOL 3350 17 GM POWD.PACK GT PRN (20:32)
[2016-10-15] MEDS: INSULIN DETEMIR 100 UNIT/ML CARTRIDGE SQ SCH (21:01)
[2016-10-15] MEDS: GLYTROL 1,000 ML BAG GT PRN (22:23)
[2016-10-16] MEDS: IPRATROPIUM NEB FS 0.5 MG/2.5 ML AMPUL.NEB NEB SCH ×4 (00:39→19:10)
[2016-10-16] MEDS: ALBUTEROL FS 2.5 MG/3 ML VIAL.NEB NEB SCH ×4 (00:39→19:10)
[2016-10-16] MEDS: POLYVINYL ALCOHOL 15 ML BOTTLE EACHEYE SCH ×4 (05:09→23:24)
[2016-10-16] MEDS: PANTOPRAZOLE 40 MG/PACK PACK GT SCH (05:09)
[2016-10-16] MEDS: BLOOD SUGAR DIAGNOSTIC 1 EACH STRIP IN SCH ×2 (05:10→17:47)
[2016-10-16] MEDS: INSULIN LISPRO/ASPART 100 UNIT/ML CARTRIDGE SQ PRN ×2 (05:10→17:47)
[2016-10-16 07:33] VITALS: BP 131/61
[2016-10-16] MEDS: FERROUS SULFATE - FOR SA ONLY 330 MG/7.5 ML UDC GT SCH ×3 (09:39→16:44)
[2016-10-16] MEDS: DOCUSATE SODIUM LIQ 100 MG/10 ML UDC GT SCH ×2 (09:39→16:44)
[2016-10-16] MEDS: LEVETIRACETAM SOL (5 ML) 100 MG/ML UDC GT SCH ×2 (09:40→20:25)
[2016-10-16] MEDS: POTASSIUM CHLORIDE 20 MEQ POWDER PACKET GT SCH (09:40)
[2016-10-16] MEDS: ISONIAZID (300 MG) 300 MG TABLET GT SCH (09:40)
[2016-10-16] MEDS: [UNRECOGNIZED DRUG - OTHER] GT SCH (09:40)
[2016-10-16] MEDS: HYDROGEN PEROXIDE 480 ML BOTTLE TP SCH ×2 (09:40→20:25)
[2016-10-16] MEDS: GLYCOPYRROLATE 1 MG TABLET GT SCH ×2 (09:40→16:44)
[2016-10-16] MEDS: BACLOFEN (10 MG) 10 MG TABLET GT SCH ×3 (09:40→16:44)
[2016-10-16] MEDS: ASCORBIC ACID 500 MG TABLET GT SCH ×2 (09:40→16:44)
[2016-10-16] MEDS: PYRIDOXINE HCL 50 MG TABLET GT SCH (09:40)
[2016-10-16] MEDS: Z GUARD REMEDY 4 OZ OINT TP SCH ×2 (09:40→20:25)
[2016-10-16 20:18] VITALS: BP 102/69
[2016-10-16] MEDS: POLYETHYLENE GLYCOL 3350 17 GM POWD.PACK GT PRN (21:06)
[2016-10-16] MEDS: INSULIN DETEMIR 100 UNIT/ML CARTRIDGE SQ SCH (21:06)
[2016-10-16] MEDS: GLYTROL 1,000 ML BAG GT PRN (22:31)
[2016-10-17] MEDS: IPRATROPIUM NEB FS 0.5 MG/2.5 ML AMPUL.NEB NEB SCH ×4 (01:57→21:52)
[2016-10-17] MEDS: ALBUTEROL FS 2.5 MG/3 ML VIAL.NEB NEB SCH ×4 (01:57→21:52)
[2016-10-17] MEDS: POLYVINYL ALCOHOL 15 ML BOTTLE EACHEYE SCH ×4 (05:16→23:19)
[2016-10-17] MEDS: PANTOPRAZOLE 40 MG/PACK PACK GT SCH (05:16)
[2016-10-17] MEDS: BLOOD SUGAR DIAGNOSTIC 1 EACH STRIP IN SCH ×2 (05:16→18:01)
[2016-10-17] MEDS: INSULIN LISPRO/ASPART 100 UNIT/ML CARTRIDGE SQ PRN ×3 (05:16→18:01)
[2016-10-17 07:37] VITALS: BP 104/67
[2016-10-17] MEDS: PYRIDOXINE HCL 50 MG TABLET GT SCH (08:48)
[2016-10-17] MEDS: [UNRECOGNIZED DRUG - OTHER] GT SCH (08:48)
[2016-10-17] MEDS: BACLOFEN (10 MG) 10 MG TABLET GT SCH ×3 (08:48→17:02)
[2016-10-17] MEDS: POTASSIUM CHLORIDE 20 MEQ POWDER PACKET GT SCH (08:48)
[2016-10-17] MEDS: FERROUS SULFATE - FOR SA ONLY 330 MG/7.5 ML UDC GT SCH ×3 (08:48→17:02)
[2016-10-17] MEDS: GLYCOPYRROLATE 1 MG TABLET GT SCH ×2 (08:48→17:02)
[2016-10-17] MEDS: ISONIAZID (300 MG) 300 MG TABLET GT SCH (08:48)
[2016-10-17] MEDS: DOCUSATE SODIUM LIQ 100 MG/10 ML UDC GT SCH ×2 (08:48→17:02)
[2016-10-17] MEDS: LEVETIRACETAM SOL (5 ML) 100 MG/ML UDC GT SCH ×2 (08:48→21:42)
[2016-10-17] MEDS: ASCORBIC ACID 500 MG TABLET GT SCH ×2 (08:50→17:02)
[2016-10-17] MEDS: Z GUARD REMEDY 4 OZ OINT TP SCH ×2 (09:00→21:42)
[2016-10-17] MEDS: HYDROGEN PEROXIDE 480 ML BOTTLE TP SCH ×2 (09:00→21:42)
--- NOTE | 2016-10-17 17:27 | NUR ---
Pt tolerated current vent settings. No changes made. Pt trach is secure. Vent is plugged into a red outlet, alarms are set and audible. Ambu bag is at bedside. Addendum: 10/17/16 at 1728 by SHABNAM GROSSMAN RT Amended: Links added.
[2016-10-17 19:48] VITALS: BP 108/75
[2016-10-17] MEDS: INSULIN DETEMIR 100 UNIT/ML CARTRIDGE SQ SCH (21:44)
[2016-10-18] MEDS: GLYTROL 1,000 ML BAG GT PRN (01:07)
[2016-10-18] MEDS: IPRATROPIUM NEB FS 0.5 MG/2.5 ML AMPUL.NEB NEB SCH ×4 (02:54→20:09)
[2016-10-18] MEDS: ALBUTEROL FS 2.5 MG/3 ML VIAL.NEB NEB SCH ×4 (02:54→20:09)
[2016-10-18] MEDS: POLYVINYL ALCOHOL 15 ML BOTTLE EACHEYE SCH ×4 (05:30→23:35)
[2016-10-18] MEDS: BLOOD SUGAR DIAGNOSTIC 1 EACH STRIP IN SCH ×2 (05:30→17:42)
[2016-10-18] MEDS: PANTOPRAZOLE 40 MG/PACK PACK GT SCH (05:30)
[2016-10-18] MEDS: INSULIN LISPRO/ASPART 100 UNIT/ML CARTRIDGE SQ PRN (05:31)
[2016-10-18 07:09] LABS: ALBUMIN 3.3 g/dL (3.4-5.0); BILIRUBIN,TOTAL 0.1 mg/dL (0.2-1.0); TOTAL PROTEIN, SERUM 7.8 g/dL (6.4-8.2)
[2016-10-18 07:57] VITALS: BP 97/62
[2016-10-18] MEDS: ASCORBIC ACID 500 MG TABLET GT SCH ×2 (08:31→17:42)
[2016-10-18] MEDS: DOCUSATE SODIUM LIQ 100 MG/10 ML UDC GT SCH ×2 (08:31→17:42)
[2016-10-18] MEDS: FERROUS SULFATE - FOR SA ONLY 330 MG/7.5 ML UDC GT SCH ×3 (08:31→17:42)
[2016-10-18] MEDS: LEVETIRACETAM SOL (5 ML) 100 MG/ML UDC GT SCH ×2 (08:31→21:03)
[2016-10-18] MEDS: BACLOFEN (10 MG) 10 MG TABLET GT SCH ×3 (08:31→17:42)
[2016-10-18] MEDS: ISONIAZID (300 MG) 300 MG TABLET GT SCH (08:31)
[2016-10-18] MEDS: PYRIDOXINE HCL 50 MG TABLET GT SCH (08:31)
[2016-10-18] MEDS: [UNRECOGNIZED DRUG - OTHER] GT SCH (08:31)
[2016-10-18] MEDS: POTASSIUM CHLORIDE 20 MEQ POWDER PACKET GT SCH (08:31)
[2016-10-18] MEDS: GLYCOPYRROLATE 1 MG TABLET GT SCH ×2 (08:31→17:42)
[2016-10-18] MEDS: Z GUARD REMEDY 4 OZ OINT TP SCH ×2 (09:00→21:03)
[2016-10-18] MEDS: HYDROGEN PEROXIDE 480 ML BOTTLE TP SCH ×2 (09:00→21:03)
[2016-10-18] MEDS: ACETAMINOPHEN 650 MG/20 ML UDC- FOR SA PATIENTS ONLY GT PRN (13:44)
--- NOTE | 2016-10-18 19:24 | NUR ---
Head circumference 57 cm.
[2016-10-18 19:38] VITALS: BP 95/67
[2016-10-18] MEDS: INSULIN DETEMIR 100 UNIT/ML CARTRIDGE SQ SCH (21:03)
[2016-10-19] MEDS: GLYTROL 1,000 ML BAG GT PRN (00:07)
[2016-10-19] MEDS: IPRATROPIUM NEB FS 0.5 MG/2.5 ML AMPUL.NEB NEB SCH ×4 (01:36→19:49)
[2016-10-19] MEDS: ALBUTEROL FS 2.5 MG/3 ML VIAL.NEB NEB SCH ×4 (01:36→19:49)
[2016-10-19] MEDS: PANTOPRAZOLE 40 MG/PACK PACK GT SCH (05:54)
[2016-10-19] MEDS: POLYVINYL ALCOHOL 15 ML BOTTLE EACHEYE SCH ×3 (05:54→18:32)
[2016-10-19] MEDS: BLOOD SUGAR DIAGNOSTIC 1 EACH STRIP IN SCH ×2 (05:54→18:32)
[2016-10-19 07:54] VITALS: BP 106/61
[2016-10-19] MEDS: [UNRECOGNIZED DRUG - OTHER] GT SCH (08:22)
[2016-10-19] MEDS: POTASSIUM CHLORIDE 20 MEQ POWDER PACKET GT SCH (08:22)
[2016-10-19] MEDS: BACLOFEN (10 MG) 10 MG TABLET GT SCH ×3 (08:22→17:00)
[2016-10-19] MEDS: PYRIDOXINE HCL 50 MG TABLET GT SCH (08:22)
[2016-10-19] MEDS: ASCORBIC ACID 500 MG TABLET GT SCH ×2 (08:22→17:00)
[2016-10-19] MEDS: ISONIAZID (300 MG) 300 MG TABLET GT SCH (08:22)
[2016-10-19] MEDS: LEVETIRACETAM SOL (5 ML) 100 MG/ML UDC GT SCH ×2 (08:22→21:00)
[2016-10-19] MEDS: DOCUSATE SODIUM LIQ 100 MG/10 ML UDC GT SCH ×2 (08:22→17:00)
[2016-10-19] MEDS: FERROUS SULFATE - FOR SA ONLY 330 MG/7.5 ML UDC GT SCH ×3 (08:22→17:00)
[2016-10-19] MEDS: GLYCOPYRROLATE 1 MG TABLET GT SCH ×2 (08:22→17:00)
--- NOTE | 2016-10-19 10:05 | NUR ---
labs Liver function result reviewed by Dr Alvarez no new order.
--- NOTE | 2016-10-19 10:05 | NUR ---
Seen and examined by Dr Alvarez with no new order
[2016-10-19] MEDS: HYDROGEN PEROXIDE 480 ML BOTTLE TP SCH ×2 (15:15→21:00)
[2016-10-19] MEDS: Z GUARD REMEDY 4 OZ OINT TP SCH ×2 (15:15→21:00)
[2016-10-19 20:28] VITALS: BP 102/69
[2016-10-19] MEDS: INSULIN DETEMIR 100 UNIT/ML CARTRIDGE SQ SCH (22:56)
[2016-10-20] MEDS: POLYVINYL ALCOHOL 15 ML BOTTLE EACHEYE SCH ×5 (00:15→23:45)
[2016-10-20] MEDS: ALBUTEROL FS 2.5 MG/3 ML VIAL.NEB NEB SCH ×4 (02:05→20:09)
[2016-10-20] MEDS: IPRATROPIUM NEB FS 0.5 MG/2.5 ML AMPUL.NEB NEB SCH ×4 (02:05→20:09)
[2016-10-20] MEDS: BLOOD SUGAR DIAGNOSTIC 1 EACH STRIP IN SCH ×2 (05:57→17:32)
[2016-10-20] MEDS: PANTOPRAZOLE 40 MG/PACK PACK GT SCH (05:57)
[2016-10-20 08:13] VITALS: BP 114/74
[2016-10-20 08:14] VITALS: BP 103/64
[2016-10-20] MEDS: LEVETIRACETAM SOL (5 ML) 100 MG/ML UDC GT SCH ×2 (09:30→20:36)
[2016-10-20] MEDS: GLYCOPYRROLATE 1 MG TABLET GT SCH ×2 (09:30→17:32)
[2016-10-20] MEDS: ISONIAZID (300 MG) 300 MG TABLET GT SCH (09:30)
[2016-10-20] MEDS: FERROUS SULFATE - FOR SA ONLY 330 MG/7.5 ML UDC GT SCH ×3 (09:30→17:32)
[2016-10-20] MEDS: DOCUSATE SODIUM LIQ 100 MG/10 ML UDC GT SCH ×2 (09:30→17:32)
[2016-10-20] MEDS: POTASSIUM CHLORIDE 20 MEQ POWDER PACKET GT SCH (09:31)
[2016-10-20] MEDS: BACLOFEN (10 MG) 10 MG TABLET GT SCH ×3 (09:31→17:32)
[2016-10-20] MEDS: HYDROGEN PEROXIDE 480 ML BOTTLE TP SCH ×2 (09:33→20:36)
[2016-10-20] MEDS: [UNRECOGNIZED DRUG - OTHER] GT SCH (09:33)
[2016-10-20] MEDS: PYRIDOXINE HCL 50 MG TABLET GT SCH (09:33)
[2016-10-20] MEDS: ASCORBIC ACID 500 MG TABLET GT SCH ×2 (09:33→17:32)
[2016-10-20] MEDS: Z GUARD REMEDY 4 OZ OINT TP SCH ×2 (09:33→20:36)
[2016-10-20] MEDS: INSULIN LISPRO/ASPART 100 UNIT/ML CARTRIDGE SQ PRN (17:38)
[2016-10-20] MEDS: GLYTROL 1,000 ML BAG GT PRN (18:38)
[2016-10-20 20:53] VITALS: BP 106/74
[2016-10-20] MEDS: INSULIN DETEMIR 100 UNIT/ML CARTRIDGE SQ SCH (21:40)
[2016-10-21] MEDS: ALBUTEROL FS 2.5 MG/3 ML VIAL.NEB NEB SCH ×4 (02:12→19:48)
[2016-10-21] MEDS: IPRATROPIUM NEB FS 0.5 MG/2.5 ML AMPUL.NEB NEB SCH ×4 (02:12→19:48)
[2016-10-21] MEDS: PANTOPRAZOLE 40 MG/PACK PACK GT SCH (05:33)
[2016-10-21] MEDS: BLOOD SUGAR DIAGNOSTIC 1 EACH STRIP IN SCH ×2 (05:33→17:55)
[2016-10-21] MEDS: POLYVINYL ALCOHOL 15 ML BOTTLE EACHEYE SCH ×3 (05:33→17:28)
[2016-10-21] MEDS: INSULIN LISPRO/ASPART 100 UNIT/ML CARTRIDGE SQ PRN (05:34)
[2016-10-21 07:41] LABS: CALCIUM, SERUM 9.7 mg/dL (8.5-10.1); CREATININE 0.6 mg/dL (0.6-1.3)
[2016-10-21 07:42] VITALS: BP 118/70
[2016-10-21] MEDS: LEVETIRACETAM SOL (5 ML) 100 MG/ML UDC GT SCH ×2 (08:43→20:57)
[2016-10-21] MEDS: HYDROGEN PEROXIDE 480 ML BOTTLE TP SCH ×2 (08:43→20:57)
[2016-10-21] MEDS: Z GUARD REMEDY 4 OZ OINT TP SCH ×2 (08:43→20:57)
[2016-10-21] MEDS: ASCORBIC ACID 500 MG TABLET GT SCH ×2 (08:43→17:28)
[2016-10-21] MEDS: POTASSIUM CHLORIDE 20 MEQ POWDER PACKET GT SCH (08:43)
[2016-10-21] MEDS: DOCUSATE SODIUM LIQ 100 MG/10 ML UDC GT SCH ×2 (08:43→17:27)
[2016-10-21] MEDS: [UNRECOGNIZED DRUG - OTHER] GT SCH (08:43)
[2016-10-21] MEDS: FERROUS SULFATE - FOR SA ONLY 330 MG/7.5 ML UDC GT SCH ×3 (08:43→17:27)
[2016-10-21] MEDS: GLYCOPYRROLATE 1 MG TABLET GT SCH ×2 (08:43→17:27)
[2016-10-21] MEDS: BACLOFEN (10 MG) 10 MG TABLET GT SCH ×3 (08:43→17:28)
[2016-10-21] MEDS: ISONIAZID (300 MG) 300 MG TABLET GT SCH (08:43)
[2016-10-21] MEDS: PYRIDOXINE HCL 50 MG TABLET GT SCH (08:43)
--- NOTE | 2016-10-21 17:21 | NUR ---
RT PATIENT RECEIVED TRACH'D ON [facility] VENT WITH SETTINGS PER MD ORDER. ROASTER SUPERVISOR DONE. BREATH SOUNDS RHONCHI ON AUSCULTATION. ALARMS ON AND SET PROPERLY. VENT PLUGGED INTO RED OUTLET. SPARE TRACH AND AMBU BAG AT BEDSIDE. SUCTIONED MOD AMOUNTS OF THICK WHITE SECRETIONS. BREATHING TX'S GIVEN ORDERED. NO ADVERSE REACTIONS NOTED. NO SIGNS OF DISTRESS NOTED. WILL CONTINUE TO MONITOR THE PATIENT FOR ANY CHANGES. Addendum: 10/21/16 at 1759 by WING WHITTINGTON RT Amended: Links added.
[2016-10-21] MEDS: INSULIN DETEMIR 100 UNIT/ML CARTRIDGE SQ SCH (21:04)
[2016-10-22] MEDS: POLYVINYL ALCOHOL 15 ML BOTTLE EACHEYE SCH ×4 (00:45→17:48)
[2016-10-22] MEDS: ALBUTEROL FS 2.5 MG/3 ML VIAL.NEB NEB SCH ×4 (01:27→19:33)
[2016-10-22] MEDS: IPRATROPIUM NEB FS 0.5 MG/2.5 ML AMPUL.NEB NEB SCH ×4 (01:27→19:33)
[2016-10-22] MEDS: BLOOD SUGAR DIAGNOSTIC 1 EACH STRIP IN SCH ×2 (06:34→17:48)
[2016-10-22] MEDS: INSULIN LISPRO/ASPART 100 UNIT/ML CARTRIDGE SQ PRN ×2 (06:34→17:48)
[2016-10-22] MEDS: PANTOPRAZOLE 40 MG/PACK PACK GT SCH (06:34)
[2016-10-22 08:08] VITALS: BP 111/71
[2016-10-22] MEDS: ISONIAZID (300 MG) 300 MG TABLET GT SCH (09:00)
[2016-10-22] MEDS: LEVETIRACETAM SOL (5 ML) 100 MG/ML UDC GT SCH ×2 (09:00→21:28)
[2016-10-22] MEDS: BACLOFEN (10 MG) 10 MG TABLET GT SCH ×3 (09:00→17:48)
[2016-10-22] MEDS: Z GUARD REMEDY 4 OZ OINT TP SCH ×2 (09:00→21:28)
[2016-10-22] MEDS: PYRIDOXINE HCL 50 MG TABLET GT SCH (09:00)
[2016-10-22] MEDS: POTASSIUM CHLORIDE 20 MEQ POWDER PACKET GT SCH (09:00)
[2016-10-22] MEDS: FERROUS SULFATE - FOR SA ONLY 330 MG/7.5 ML UDC GT SCH ×3 (09:00→17:48)
[2016-10-22] MEDS: GLYCOPYRROLATE 1 MG TABLET GT SCH ×2 (09:00→17:48)
[2016-10-22] MEDS: DOCUSATE SODIUM LIQ 100 MG/10 ML UDC GT SCH ×2 (09:00→17:48)
[2016-10-22] MEDS: HYDROGEN PEROXIDE 480 ML BOTTLE TP SCH ×2 (09:00→21:28)
[2016-10-22] MEDS: [UNRECOGNIZED DRUG - OTHER] GT SCH (09:00)
[2016-10-22] MEDS: ASCORBIC ACID 500 MG TABLET GT SCH ×2 (09:00→17:48)
[2016-10-22 20:21] VITALS: BP 102/68
[2016-10-22] MEDS: INSULIN DETEMIR 100 UNIT/ML CARTRIDGE SQ SCH (21:35)
[2016-10-22] MEDS: GLYTROL 1,000 ML BAG GT PRN (22:55)
[2016-10-23] MEDS: POLYVINYL ALCOHOL 15 ML BOTTLE EACHEYE SCH ×5 (00:45→23:09)
[2016-10-23] MEDS: ALBUTEROL FS 2.5 MG/3 ML VIAL.NEB NEB SCH ×4 (01:33→19:31)
[2016-10-23] MEDS: IPRATROPIUM NEB FS 0.5 MG/2.5 ML AMPUL.NEB NEB SCH ×4 (01:33→19:31)
[2016-10-23] MEDS: BLOOD SUGAR DIAGNOSTIC 1 EACH STRIP IN SCH ×2 (05:26→18:07)
[2016-10-23] MEDS: INSULIN LISPRO/ASPART 100 UNIT/ML CARTRIDGE SQ PRN ×2 (05:26→18:07)
[2016-10-23] MEDS: PANTOPRAZOLE 40 MG/PACK PACK GT SCH (05:26)
[2016-10-23] MEDS: POLYETHYLENE GLYCOL 3350 17 GM POWD.PACK GT PRN (06:44)
[2016-10-23 08:25] VITALS: BP 95/63
[2016-10-23] MEDS: POTASSIUM CHLORIDE 20 MEQ POWDER PACKET GT SCH (08:43)
[2016-10-23] MEDS: LEVETIRACETAM SOL (5 ML) 100 MG/ML UDC GT SCH ×2 (08:43→21:12)
[2016-10-23] MEDS: PYRIDOXINE HCL 50 MG TABLET GT SCH (08:43)
[2016-10-23] MEDS: ISONIAZID (300 MG) 300 MG TABLET GT SCH (08:43)
[2016-10-23] MEDS: BACLOFEN (10 MG) 10 MG TABLET GT SCH ×3 (08:43→16:51)
[2016-10-23] MEDS: GLYCOPYRROLATE 1 MG TABLET GT SCH ×2 (08:43→16:51)
[2016-10-23] MEDS: DOCUSATE SODIUM LIQ 100 MG/10 ML UDC GT SCH ×2 (08:44→16:52)
[2016-10-23] MEDS: MVI/MINERALS LIQUID (CEROVITE) GT SCH (08:44)
[2016-10-23] MEDS: FERROUS SULFATE - FOR SA ONLY 330 MG/7.5 ML UDC GT SCH ×3 (08:44→16:52)
[2016-10-23] MEDS: ASCORBIC ACID 500 MG TABLET GT SCH ×2 (08:44→16:52)
[2016-10-23] MEDS: Z GUARD REMEDY 4 OZ OINT TP SCH ×2 (08:45→21:12)
[2016-10-23] MEDS: HYDROGEN PEROXIDE 480 ML BOTTLE TP SCH ×2 (08:45→21:12)
[2016-10-23] MEDS: GLYTROL 1,000 ML BAG GT PRN (16:51)
[2016-10-23 20:03] VITALS: BP 102/61
[2016-10-23] MEDS: INSULIN DETEMIR 100 UNIT/ML CARTRIDGE SQ SCH (21:12)
[2016-10-24] MEDS: IPRATROPIUM NEB FS 0.5 MG/2.5 ML AMPUL.NEB NEB SCH ×4 (01:46→19:30)
[2016-10-24] MEDS: ALBUTEROL FS 2.5 MG/3 ML VIAL.NEB NEB SCH ×4 (01:47→19:30)
[2016-10-24] MEDS: BLOOD SUGAR DIAGNOSTIC 1 EACH STRIP IN SCH ×2 (05:05→17:46)
[2016-10-24] MEDS: POLYVINYL ALCOHOL 15 ML BOTTLE EACHEYE SCH ×4 (05:05→23:33)
[2016-10-24] MEDS: PANTOPRAZOLE 40 MG/PACK PACK GT SCH (05:05)
[2016-10-24 08:00] VITALS: BP 107/74
[2016-10-24] MEDS: FERROUS SULFATE - FOR SA ONLY 330 MG/7.5 ML UDC GT SCH ×3 (09:51→16:27)
[2016-10-24] MEDS: BACLOFEN (10 MG) 10 MG TABLET GT SCH ×3 (09:51→16:27)
[2016-10-24] MEDS: PYRIDOXINE HCL 50 MG TABLET GT SCH (09:51)
[2016-10-24] MEDS: HYDROGEN PEROXIDE 480 ML BOTTLE TP SCH ×2 (09:51→21:15)
[2016-10-24] MEDS: MVI/MINERALS LIQUID (CEROVITE) GT SCH (09:51)
[2016-10-24] MEDS: ASCORBIC ACID 500 MG TABLET GT SCH ×2 (09:51→16:27)
[2016-10-24] MEDS: DOCUSATE SODIUM LIQ 100 MG/10 ML UDC GT SCH ×2 (09:51→16:27)
[2016-10-24] MEDS: Z GUARD REMEDY 4 OZ OINT TP SCH ×2 (09:51→21:15)
[2016-10-24] MEDS: LEVETIRACETAM SOL (5 ML) 100 MG/ML UDC GT SCH ×2 (09:51→21:15)
[2016-10-24] MEDS: GLYCOPYRROLATE 1 MG TABLET GT SCH ×2 (09:51→16:27)
[2016-10-24] MEDS: POTASSIUM CHLORIDE 20 MEQ POWDER PACKET GT SCH (09:51)
[2016-10-24] MEDS: ISONIAZID (300 MG) 300 MG TABLET GT SCH (09:51)
[2016-10-24] MEDS: INSULIN LISPRO/ASPART 100 UNIT/ML CARTRIDGE SQ PRN (17:47)
[2016-10-24 20:07] VITALS: BP 95/68
[2016-10-24] MEDS: INSULIN DETEMIR 100 UNIT/ML CARTRIDGE SQ SCH (22:13)
[2016-10-25] MEDS: ALBUTEROL FS 2.5 MG/3 ML VIAL.NEB NEB SCH ×4 (02:02→20:22)
[2016-10-25] MEDS: IPRATROPIUM NEB FS 0.5 MG/2.5 ML AMPUL.NEB NEB SCH ×4 (02:02→20:22)
[2016-10-25] MEDS: BLOOD SUGAR DIAGNOSTIC 1 EACH STRIP IN SCH ×2 (06:07→17:15)
[2016-10-25] MEDS: PANTOPRAZOLE 40 MG/PACK PACK GT SCH (06:07)
[2016-10-25] MEDS: POLYVINYL ALCOHOL 15 ML BOTTLE EACHEYE SCH ×3 (06:07→17:15)
[2016-10-25 08:13] VITALS: BP 108/67
[2016-10-25] MEDS: PYRIDOXINE HCL 50 MG TABLET GT SCH (09:00)
[2016-10-25] MEDS: DOCUSATE SODIUM LIQ 100 MG/10 ML UDC GT SCH ×2 (09:00→16:56)
[2016-10-25] MEDS: BACLOFEN (10 MG) 10 MG TABLET GT SCH ×3 (09:00→16:56)
[2016-10-25] MEDS: MVI/MINERALS LIQUID (CEROVITE) GT SCH (09:00)
[2016-10-25] MEDS: FERROUS SULFATE - FOR SA ONLY 330 MG/7.5 ML UDC GT SCH ×3 (09:00→16:56)
[2016-10-25] MEDS: POTASSIUM CHLORIDE 20 MEQ POWDER PACKET GT SCH (09:00)
[2016-10-25] MEDS: LEVETIRACETAM SOL (5 ML) 100 MG/ML UDC GT SCH ×2 (09:00→21:19)
[2016-10-25] MEDS: GLYCOPYRROLATE 1 MG TABLET GT SCH ×2 (09:00→16:56)
[2016-10-25] MEDS: ISONIAZID (300 MG) 300 MG TABLET GT SCH (09:00)
[2016-10-25] MEDS: ASCORBIC ACID 500 MG TABLET GT SCH ×2 (09:00→16:56)
[2016-10-25] MEDS: ACETAMINOPHEN 650 MG/20 ML UDC- FOR SA PATIENTS ONLY GT PRN ×2 (13:00→13:47)
[2016-10-25] MEDS: HYDROGEN PEROXIDE 480 ML BOTTLE TP SCH ×2 (14:00→21:20)
[2016-10-25] MEDS: Z GUARD REMEDY 4 OZ OINT TP SCH ×2 (14:00→21:20)
[2016-10-25] MEDS: GLYTROL 1,000 ML BAG GT PRN (16:57)
[2016-10-25 19:52] VITALS: BP 92/60
[2016-10-25] MEDS: INSULIN DETEMIR 100 UNIT/ML CARTRIDGE SQ SCH (21:27)
[2016-10-26] MEDS: POLYVINYL ALCOHOL 15 ML BOTTLE EACHEYE SCH ×4 (00:22→17:59)
[2016-10-26] MEDS: ALBUTEROL FS 2.5 MG/3 ML VIAL.NEB NEB SCH ×4 (01:47→20:24)
[2016-10-26] MEDS: IPRATROPIUM NEB FS 0.5 MG/2.5 ML AMPUL.NEB NEB SCH ×4 (01:47→20:24)
[2016-10-26] MEDS: PANTOPRAZOLE 40 MG/PACK PACK GT SCH (06:07)
[2016-10-26] MEDS: BLOOD SUGAR DIAGNOSTIC 1 EACH STRIP IN SCH ×2 (06:07→17:59)
[2016-10-26 07:41] VITALS: BP 100/58
[2016-10-26] MEDS: BACLOFEN (10 MG) 10 MG TABLET GT SCH ×3 (08:29→17:59)
[2016-10-26] MEDS: LEVETIRACETAM SOL (5 ML) 100 MG/ML UDC GT SCH ×2 (08:29→21:10)
[2016-10-26] MEDS: FERROUS SULFATE - FOR SA ONLY 330 MG/7.5 ML UDC GT SCH ×3 (08:29→17:59)
[2016-10-26] MEDS: GLYCOPYRROLATE 1 MG TABLET GT SCH ×2 (08:29→17:59)
[2016-10-26] MEDS: PYRIDOXINE HCL 50 MG TABLET GT SCH (08:29)
[2016-10-26] MEDS: ASCORBIC ACID 500 MG TABLET GT SCH ×2 (08:29→17:59)
[2016-10-26] MEDS: MVI/MINERALS LIQUID (CEROVITE) GT SCH (08:29)
[2016-10-26] MEDS: ISONIAZID (300 MG) 300 MG TABLET GT SCH (08:29)
[2016-10-26] MEDS: DOCUSATE SODIUM LIQ 100 MG/10 ML UDC GT SCH ×2 (08:29→17:59)
[2016-10-26] MEDS: POTASSIUM CHLORIDE 20 MEQ POWDER PACKET GT SCH (08:29)
--- NOTE | 2016-10-26 11:43 | NUR ---
LE FOR 10/25/16 @1000 - Head circumference measured with 57cm.
[2016-10-26] MEDS: Z GUARD REMEDY 4 OZ OINT TP SCH ×2 (14:30→21:10)
[2016-10-26] MEDS: HYDROGEN PEROXIDE 480 ML BOTTLE TP SCH ×2 (14:30→21:10)
[2016-10-26] MEDS: GLYTROL 1,000 ML BAG GT PRN (15:06)
[2016-10-26 19:51] VITALS: BP 95/65
[2016-10-26] MEDS: INSULIN DETEMIR 100 UNIT/ML CARTRIDGE SQ SCH (21:10)
[2016-10-27] MEDS: POLYVINYL ALCOHOL 15 ML BOTTLE EACHEYE SCH ×5 (00:05→23:42)
[2016-10-27] MEDS: IPRATROPIUM NEB FS 0.5 MG/2.5 ML AMPUL.NEB NEB SCH ×4 (01:29→19:30)
[2016-10-27] MEDS: ALBUTEROL FS 2.5 MG/3 ML VIAL.NEB NEB SCH ×4 (01:29→19:30)
[2016-10-27] MEDS: BLOOD SUGAR DIAGNOSTIC 1 EACH STRIP IN SCH ×2 (05:55→17:55)
[2016-10-27] MEDS: PANTOPRAZOLE 40 MG/PACK PACK GT SCH (05:55)
[2016-10-27 07:46] VITALS: BP 109/66
[2016-10-27] MEDS: PYRIDOXINE HCL 50 MG TABLET GT SCH (09:00)
[2016-10-27] MEDS: MVI/MINERALS LIQUID (CEROVITE) GT SCH (09:00)
[2016-10-27] MEDS: ISONIAZID (300 MG) 300 MG TABLET GT SCH (09:00)
[2016-10-27] MEDS: BACLOFEN (10 MG) 10 MG TABLET GT SCH ×3 (09:00→16:10)
[2016-10-27] MEDS: ASCORBIC ACID 500 MG TABLET GT SCH ×2 (09:00→16:10)
[2016-10-27] MEDS: GLYCOPYRROLATE 1 MG TABLET GT SCH ×2 (09:00→16:10)
[2016-10-27] MEDS: DOCUSATE SODIUM LIQ 100 MG/10 ML UDC GT SCH ×2 (09:00→16:10)
[2016-10-27] MEDS: Z GUARD REMEDY 4 OZ OINT TP SCH ×2 (09:00→21:01)
[2016-10-27] MEDS: POTASSIUM CHLORIDE 20 MEQ POWDER PACKET GT SCH (09:00)
[2016-10-27] MEDS: HYDROGEN PEROXIDE 480 ML BOTTLE TP SCH ×2 (09:00→21:01)
[2016-10-27] MEDS: FERROUS SULFATE - FOR SA ONLY 330 MG/7.5 ML UDC GT SCH ×3 (09:00→16:10)
[2016-10-27] MEDS: LEVETIRACETAM SOL (5 ML) 100 MG/ML UDC GT SCH ×2 (09:00→21:01)
[2016-10-27] MEDS: GLYTROL 1,000 ML BAG GT PRN (16:10)
[2016-10-27] MEDS: INSULIN LISPRO/ASPART 100 UNIT/ML CARTRIDGE SQ PRN (17:55)
[2016-10-27 20:00] VITALS: BP 116/71
[2016-10-27] MEDS: INSULIN DETEMIR 100 UNIT/ML CARTRIDGE SQ SCH (21:11)
[2016-10-28] MEDS: IPRATROPIUM NEB FS 0.5 MG/2.5 ML AMPUL.NEB NEB SCH ×4 (01:53→19:21)
[2016-10-28] MEDS: ALBUTEROL FS 2.5 MG/3 ML VIAL.NEB NEB SCH ×4 (01:54→19:21)
[2016-10-28] MEDS: PANTOPRAZOLE 40 MG/PACK PACK GT SCH (05:25)
[2016-10-28] MEDS: POLYVINYL ALCOHOL 15 ML BOTTLE EACHEYE SCH ×3 (05:25→17:40)
[2016-10-28] MEDS: BLOOD SUGAR DIAGNOSTIC 1 EACH STRIP IN SCH ×2 (05:44→17:40)
[2016-10-28 07:47] VITALS: BP 143/64
[2016-10-28] MEDS: FERROUS SULFATE - FOR SA ONLY 330 MG/7.5 ML UDC GT SCH ×3 (08:42→16:26)
[2016-10-28] MEDS: ASCORBIC ACID 500 MG TABLET GT SCH ×2 (08:42→16:26)
[2016-10-28] MEDS: LEVETIRACETAM SOL (5 ML) 100 MG/ML UDC GT SCH ×2 (08:42→20:52)
[2016-10-28] MEDS: BACLOFEN (10 MG) 10 MG TABLET GT SCH ×3 (08:42→16:26)
[2016-10-28] MEDS: ISONIAZID (300 MG) 300 MG TABLET GT SCH (08:42)
[2016-10-28] MEDS: PYRIDOXINE HCL 50 MG TABLET GT SCH (08:42)
[2016-10-28] MEDS: POTASSIUM CHLORIDE 20 MEQ POWDER PACKET GT SCH (08:42)
[2016-10-28] MEDS: GLYCOPYRROLATE 1 MG TABLET GT SCH ×2 (08:42→16:26)
[2016-10-28] MEDS: MVI/MINERALS LIQUID (CEROVITE) GT SCH (08:42)
[2016-10-28] MEDS: DOCUSATE SODIUM LIQ 100 MG/10 ML UDC GT SCH ×2 (08:42→16:26)
[2016-10-28] MEDS: HYDROGEN PEROXIDE 480 ML BOTTLE TP SCH ×2 (08:43→20:52)
[2016-10-28] MEDS: Z GUARD REMEDY 4 OZ OINT TP SCH ×2 (08:43→20:53)
[2016-10-28] MEDS: GLYTROL 1,000 ML BAG GT PRN (14:57)
[2016-10-28 20:05] VITALS: BP 99/68
[2016-10-28] MEDS: INSULIN DETEMIR 100 UNIT/ML CARTRIDGE SQ SCH (21:27)
[2016-10-29] MEDS: POLYVINYL ALCOHOL 15 ML BOTTLE EACHEYE SCH ×5 (00:57→23:03)
[2016-10-29] MEDS: IPRATROPIUM NEB FS 0.5 MG/2.5 ML AMPUL.NEB NEB SCH ×4 (01:27→19:22)
[2016-10-29] MEDS: ALBUTEROL FS 2.5 MG/3 ML VIAL.NEB NEB SCH ×4 (01:27→19:22)
[2016-10-29] MEDS: BLOOD SUGAR DIAGNOSTIC 1 EACH STRIP IN SCH ×2 (05:26→17:04)
[2016-10-29] MEDS: INSULIN LISPRO/ASPART 100 UNIT/ML CARTRIDGE SQ PRN (05:26)
[2016-10-29] MEDS: PANTOPRAZOLE 40 MG/PACK PACK GT SCH (05:26)
[2016-10-29 07:25] VITALS: BP 107/72
[2016-10-29] MEDS: MVI/MINERALS LIQUID (CEROVITE) GT SCH (09:17)
[2016-10-29] MEDS: DOCUSATE SODIUM LIQ 100 MG/10 ML UDC GT SCH ×2 (09:17→16:27)
[2016-10-29] MEDS: BACLOFEN (10 MG) 10 MG TABLET GT SCH ×3 (09:17→16:27)
[2016-10-29] MEDS: FERROUS SULFATE - FOR SA ONLY 330 MG/7.5 ML UDC GT SCH ×3 (09:17→16:27)
[2016-10-29] MEDS: GLYCOPYRROLATE 1 MG TABLET GT SCH ×2 (09:17→16:27)
[2016-10-29] MEDS: LEVETIRACETAM SOL (5 ML) 100 MG/ML UDC GT SCH ×2 (09:17→21:00)
[2016-10-29] MEDS: PYRIDOXINE HCL 50 MG TABLET GT SCH (09:17)
[2016-10-29] MEDS: ASCORBIC ACID 500 MG TABLET GT SCH ×2 (09:17→16:27)
[2016-10-29] MEDS: POTASSIUM CHLORIDE 20 MEQ POWDER PACKET GT SCH (09:17)
[2016-10-29] MEDS: ISONIAZID (300 MG) 300 MG TABLET GT SCH (09:17)
[2016-10-29] MEDS: HYDROGEN PEROXIDE 480 ML BOTTLE TP SCH ×2 (09:20→21:00)
[2016-10-29] MEDS: Z GUARD REMEDY 4 OZ OINT TP SCH ×2 (09:20→21:00)
[2016-10-29] MEDS: GLYTROL 1,000 ML BAG GT PRN (12:26)
--- NOTE | 2016-10-29 14:00 | NUR ---
IDT meeting was held. Sister unable to attend. Discussed plan of care.
[2016-10-29 20:03] VITALS: BP 101/68
[2016-10-29] MEDS: INSULIN DETEMIR 100 UNIT/ML CARTRIDGE SQ SCH (21:01)
[2016-10-30] MEDS: IPRATROPIUM NEB FS 0.5 MG/2.5 ML AMPUL.NEB NEB SCH ×4 (01:53→18:48)
[2016-10-30] MEDS: ALBUTEROL FS 2.5 MG/3 ML VIAL.NEB NEB SCH ×4 (01:53→18:48)
[2016-10-30] MEDS: GLYTROL 1,000 ML BAG GT PRN ×2 (05:36→21:05)
[2016-10-30] MEDS: PANTOPRAZOLE 40 MG/PACK PACK GT SCH (05:36)
[2016-10-30] MEDS: BLOOD SUGAR DIAGNOSTIC 1 EACH STRIP IN SCH ×2 (05:36→17:53)
[2016-10-30] MEDS: POLYVINYL ALCOHOL 15 ML BOTTLE EACHEYE SCH ×4 (05:36→23:53)
[2016-10-30 07:39] VITALS: BP 102/69
[2016-10-30] MEDS: BACLOFEN (10 MG) 10 MG TABLET GT SCH ×3 (08:24→17:53)
[2016-10-30] MEDS: ASCORBIC ACID 500 MG TABLET GT SCH ×2 (08:24→17:53)
[2016-10-30] MEDS: PYRIDOXINE HCL 50 MG TABLET GT SCH (08:24)
[2016-10-30] MEDS: LEVETIRACETAM SOL (5 ML) 100 MG/ML UDC GT SCH ×2 (08:24→21:04)
[2016-10-30] MEDS: DOCUSATE SODIUM LIQ 100 MG/10 ML UDC GT SCH ×2 (08:24→17:53)
[2016-10-30] MEDS: POTASSIUM CHLORIDE 20 MEQ POWDER PACKET GT SCH (08:24)
[2016-10-30] MEDS: ISONIAZID (300 MG) 300 MG TABLET GT SCH (08:24)
[2016-10-30] MEDS: FERROUS SULFATE - FOR SA ONLY 330 MG/7.5 ML UDC GT SCH ×3 (08:24→17:53)
[2016-10-30] MEDS: MVI/MINERALS LIQUID (CEROVITE) GT SCH (08:24)
[2016-10-30] MEDS: GLYCOPYRROLATE 1 MG TABLET GT SCH ×2 (08:24→17:53)
--- NOTE | 2016-10-30 11:03 | NUR ---
RT Patient received trached mechanical vent. Settings as ordered. Ambu bag at the bed side. Vent plugged into red outlet and alarms set and functioning. Tx given as ordered. No adverse reactions.
[2016-10-30] MEDS: HYDROGEN PEROXIDE 480 ML BOTTLE TP SCH ×2 (14:30→21:04)
[2016-10-30] MEDS: Z GUARD REMEDY 4 OZ OINT TP SCH ×2 (14:30→21:04)
[2016-10-30 20:24] VITALS: BP 104/63
[2016-10-30] MEDS: INSULIN DETEMIR 100 UNIT/ML CARTRIDGE SQ SCH (21:04)
[2016-10-31] MEDS: ALBUTEROL FS 2.5 MG/3 ML VIAL.NEB NEB SCH ×4 (01:30→20:28)
[2016-10-31] MEDS: IPRATROPIUM NEB FS 0.5 MG/2.5 ML AMPUL.NEB NEB SCH ×4 (01:30→20:28)
[2016-10-31] MEDS: PANTOPRAZOLE 40 MG/PACK PACK GT SCH (05:39)
[2016-10-31] MEDS: POLYVINYL ALCOHOL 15 ML BOTTLE EACHEYE SCH ×4 (05:39→23:33)
[2016-10-31] MEDS: BLOOD SUGAR DIAGNOSTIC 1 EACH STRIP IN SCH ×2 (05:39→17:37)
[2016-10-31 07:51] VITALS: BP 119/74
[2016-10-31 08:02] VITALS: BP 136/67
[2016-10-31] MEDS: PYRIDOXINE HCL 50 MG TABLET GT SCH (08:35)
[2016-10-31] MEDS: ASCORBIC ACID 500 MG TABLET GT SCH ×2 (08:35→17:37)
[2016-10-31] MEDS: POTASSIUM CHLORIDE 20 MEQ POWDER PACKET GT SCH (08:35)
[2016-10-31] MEDS: GLYCOPYRROLATE 1 MG TABLET GT SCH ×2 (08:35→17:37)
[2016-10-31] MEDS: ISONIAZID (300 MG) 300 MG TABLET GT SCH (08:35)
[2016-10-31] MEDS: DOCUSATE SODIUM LIQ 100 MG/10 ML UDC GT SCH ×2 (08:35→17:37)
[2016-10-31] MEDS: FERROUS SULFATE - FOR SA ONLY 330 MG/7.5 ML UDC GT SCH ×3 (08:35→17:37)
[2016-10-31] MEDS: MVI/MINERALS LIQUID (CEROVITE) GT SCH (08:35)
[2016-10-31] MEDS: BACLOFEN (10 MG) 10 MG TABLET GT SCH ×3 (08:35→17:37)
[2016-10-31] MEDS: LEVETIRACETAM SOL (5 ML) 100 MG/ML UDC GT SCH ×2 (08:35→21:04)
[2016-10-31] MEDS: HYDROGEN PEROXIDE 480 ML BOTTLE TP SCH ×2 (09:01→21:05)
[2016-10-31] MEDS: Z GUARD REMEDY 4 OZ OINT TP SCH ×2 (09:01→21:05)
[2016-10-31 19:41] VITALS: BP 108/73
[2016-10-31] MEDS: INSULIN DETEMIR 100 UNIT/ML CARTRIDGE SQ SCH (21:05)
[2016-11-01] MEDS: ALBUTEROL FS 2.5 MG/3 ML VIAL.NEB NEB SCH ×4 (01:48→20:23)
[2016-11-01] MEDS: IPRATROPIUM NEB FS 0.5 MG/2.5 ML AMPUL.NEB NEB SCH ×4 (01:48→20:23)
[2016-11-01] MEDS: POLYVINYL ALCOHOL 15 ML BOTTLE EACHEYE SCH ×4 (05:29→23:29)
[2016-11-01] MEDS: PANTOPRAZOLE 40 MG/PACK PACK GT SCH (05:29)
[2016-11-01] MEDS: BLOOD SUGAR DIAGNOSTIC 1 EACH STRIP IN SCH ×2 (05:30→18:00)
[2016-11-01 08:40] VITALS: BP 115/62
[2016-11-01] MEDS: LEVETIRACETAM SOL (5 ML) 100 MG/ML UDC GT SCH ×2 (09:00→21:03)
[2016-11-01] MEDS: GLYCOPYRROLATE 1 MG TABLET GT SCH ×2 (09:00→17:00)
[2016-11-01] MEDS: ASCORBIC ACID 500 MG TABLET GT SCH ×2 (09:00→17:00)
[2016-11-01] MEDS: MVI/MINERALS LIQUID (CEROVITE) GT SCH (09:00)
[2016-11-01] MEDS: FERROUS SULFATE - FOR SA ONLY 330 MG/7.5 ML UDC GT SCH ×3 (09:00→17:00)
[2016-11-01] MEDS: PYRIDOXINE HCL 50 MG TABLET GT SCH (09:00)
[2016-11-01] MEDS: ISONIAZID (300 MG) 300 MG TABLET GT SCH (09:00)
[2016-11-01] MEDS: BACLOFEN (10 MG) 10 MG TABLET GT SCH ×3 (09:00→17:00)
[2016-11-01] MEDS: POTASSIUM CHLORIDE 20 MEQ POWDER PACKET GT SCH (09:00)
[2016-11-01] MEDS: DOCUSATE SODIUM LIQ 100 MG/10 ML UDC GT SCH ×2 (09:00→17:00)
[2016-11-01] MEDS: Z GUARD REMEDY 4 OZ OINT TP SCH ×2 (13:00→21:03)
[2016-11-01] MEDS: HYDROGEN PEROXIDE 480 ML BOTTLE TP SCH ×2 (13:00→21:03)
--- NOTE | 2016-11-01 16:00 | NUR ---
Head Circumference measured with 57.5 cm.
[2016-11-01 19:38] VITALS: BP 109/70
[2016-11-01] MEDS: INSULIN DETEMIR 100 UNIT/ML CARTRIDGE SQ SCH (21:04)
[2016-11-02] MEDS: ALBUTEROL FS 2.5 MG/3 ML VIAL.NEB NEB SCH ×4 (02:24→19:51)
[2016-11-02] MEDS: IPRATROPIUM NEB FS 0.5 MG/2.5 ML AMPUL.NEB NEB SCH ×4 (02:24→19:51)
[2016-11-02] MEDS: BLOOD SUGAR DIAGNOSTIC 1 EACH STRIP IN SCH ×2 (05:32→18:08)
[2016-11-02] MEDS: POLYVINYL ALCOHOL 15 ML BOTTLE EACHEYE SCH ×3 (05:32→18:08)
[2016-11-02] MEDS: PANTOPRAZOLE 40 MG/PACK PACK GT SCH (05:32)
--- NOTE | 2016-11-02 07:34 | NUR ---
Received female sergio pt on mechanical vent. Pt sergio is secure. Vent is plugged into a red outlet, alarms are set and audible. BVM is at bedside. Addendum: 11/02/16 at 0800 by SHABNAM GROSSMAN RT Amended: Links added.
[2016-11-02 08:00] VITALS: BP 104/66
[2016-11-02] MEDS: MVI/MINERALS LIQUID (CEROVITE) GT SCH (09:41)
[2016-11-02] MEDS: LEVETIRACETAM SOL (5 ML) 100 MG/ML UDC GT SCH ×2 (09:41→20:53)
[2016-11-02] MEDS: BACLOFEN (10 MG) 10 MG TABLET GT SCH ×3 (09:41→16:36)
[2016-11-02] MEDS: POTASSIUM CHLORIDE 20 MEQ POWDER PACKET GT SCH (09:41)
[2016-11-02] MEDS: FERROUS SULFATE - FOR SA ONLY 330 MG/7.5 ML UDC GT SCH ×3 (09:41→16:36)
[2016-11-02] MEDS: PYRIDOXINE HCL 50 MG TABLET GT SCH (09:41)
[2016-11-02] MEDS: GLYCOPYRROLATE 1 MG TABLET GT SCH ×2 (09:41→16:36)
[2016-11-02] MEDS: DOCUSATE SODIUM LIQ 100 MG/10 ML UDC GT SCH ×2 (09:41→16:36)
[2016-11-02] MEDS: ISONIAZID (300 MG) 300 MG TABLET GT SCH (09:41)
[2016-11-02] MEDS: ASCORBIC ACID 500 MG TABLET GT SCH ×2 (09:41→16:36)
[2016-11-02] MEDS: Z GUARD REMEDY 4 OZ OINT TP SCH ×2 (15:00→20:53)
[2016-11-02] MEDS: HYDROGEN PEROXIDE 480 ML BOTTLE TP SCH ×2 (15:00→20:53)
[2016-11-02 19:53] VITALS: BP 108/74
[2016-11-02] MEDS: GLYTROL 1,000 ML BAG GT PRN (21:43)
[2016-11-02] MEDS: INSULIN DETEMIR 100 UNIT/ML CARTRIDGE SQ SCH (22:13)
[2016-11-03] MEDS: POLYVINYL ALCOHOL 15 ML BOTTLE EACHEYE SCH ×4 (00:12→18:01)
[2016-11-03] MEDS: ALBUTEROL FS 2.5 MG/3 ML VIAL.NEB NEB SCH ×4 (01:51→19:50)
[2016-11-03] MEDS: IPRATROPIUM NEB FS 0.5 MG/2.5 ML AMPUL.NEB NEB SCH ×4 (01:51→19:50)
[2016-11-03] MEDS: PANTOPRAZOLE 40 MG/PACK PACK GT SCH (06:11)
[2016-11-03] MEDS: BLOOD SUGAR DIAGNOSTIC 1 EACH STRIP IN SCH ×2 (06:14→18:06)
--- NOTE | 2016-11-03 06:50 | NUR ---
professor of art/notes blood sugar 137, no insulin coverages given , no signs of hypo glycemia noted. all due meds given. stable sayra the night. kept her warm and comfortable at all times. will endorse to am nurse for continuity of care.
[2016-11-03 08:00] VITALS: BP 105/68
[2016-11-03] MEDS: FERROUS SULFATE - FOR SA ONLY 330 MG/7.5 ML UDC GT SCH ×3 (09:00→17:57)
[2016-11-03] MEDS: PYRIDOXINE HCL 50 MG TABLET GT SCH (09:13)
[2016-11-03] MEDS: GLYCOPYRROLATE 1 MG TABLET GT SCH ×2 (09:14→17:00)
[2016-11-03] MEDS: BACLOFEN (10 MG) 10 MG TABLET GT SCH ×3 (09:14→17:00)
[2016-11-03] MEDS: ISONIAZID (300 MG) 300 MG TABLET GT SCH (09:14)
[2016-11-03] MEDS: LEVETIRACETAM SOL (5 ML) 100 MG/ML UDC GT SCH ×2 (09:14→21:26)
[2016-11-03] MEDS: POTASSIUM CHLORIDE 20 MEQ POWDER PACKET GT SCH (09:14)
[2016-11-03] MEDS: DOCUSATE SODIUM LIQ 100 MG/10 ML UDC GT SCH ×2 (09:17→17:57)
[2016-11-03] MEDS: MVI/MINERALS LIQUID (CEROVITE) GT SCH (09:18)
[2016-11-03] MEDS: ASCORBIC ACID 500 MG TABLET GT SCH ×2 (09:19→17:00)
[2016-11-03] MEDS: Z GUARD REMEDY 4 OZ OINT TP SCH ×2 (09:38→21:27)
[2016-11-03] MEDS: HYDROGEN PEROXIDE 480 ML BOTTLE TP SCH ×2 (09:38→21:27)
--- NOTE | 2016-11-03 13:22 | NUR ---
Called [employer] to follow up on customized wheelchair progress. Spoke to Jc and he stated that no one has replaced the desk representative Francois yet and therefore no one is currently taking over his cases. He asked for renal social worker to re-send facesheet to fax number [phone] and noted that he will look through Francois's files. ERVIN will follow up.
--- NOTE | 2016-11-03 14:38 | NUR ---
Received a call from Jc from [employer] who stated that they cannot assist with this wheelchair order because resident has [employer]. [employer] to transfer another resident's case to [facility] but stated that they cannot transfer this one because they only work with resident's that have medicare and do not know of any supplier that works with [employer].
[2016-11-03 19:41] VITALS: BP 115/74
[2016-11-03] MEDS: INSULIN DETEMIR 100 UNIT/ML CARTRIDGE SQ SCH (21:27)
[2016-11-03] MEDS: GLYTROL 1,000 ML BAG GT PRN (22:52)
[2016-11-04] MEDS: IPRATROPIUM NEB FS 0.5 MG/2.5 ML AMPUL.NEB NEB SCH ×4 (02:05→19:52)
[2016-11-04] MEDS: ALBUTEROL FS 2.5 MG/3 ML VIAL.NEB NEB SCH ×4 (02:05→19:52)
[2016-11-04] MEDS: PANTOPRAZOLE 40 MG/PACK PACK GT SCH (05:53)
[2016-11-04] MEDS: INSULIN LISPRO/ASPART 100 UNIT/ML CARTRIDGE SQ PRN (05:53)
[2016-11-04] MEDS: BLOOD SUGAR DIAGNOSTIC 1 EACH STRIP IN SCH ×2 (05:53→18:00)
[2016-11-04] MEDS: POLYVINYL ALCOHOL 15 ML BOTTLE EACHEYE SCH ×5 (05:53→23:32)
[2016-11-04 08:00] VITALS: BP 109/64
[2016-11-04] MEDS: MVI/MINERALS LIQUID (CEROVITE) GT SCH (08:43)
[2016-11-04] MEDS: FERROUS SULFATE - FOR SA ONLY 330 MG/7.5 ML UDC GT SCH ×3 (08:43→16:53)
[2016-11-04] MEDS: POTASSIUM CHLORIDE 20 MEQ POWDER PACKET GT SCH (08:43)
[2016-11-04] MEDS: PYRIDOXINE HCL 50 MG TABLET GT SCH (08:43)
[2016-11-04] MEDS: ISONIAZID (300 MG) 300 MG TABLET GT SCH (08:43)
[2016-11-04] MEDS: BACLOFEN (10 MG) 10 MG TABLET GT SCH ×3 (08:43→16:53)
[2016-11-04] MEDS: ASCORBIC ACID 500 MG TABLET GT SCH ×2 (08:43→16:53)
[2016-11-04] MEDS: GLYCOPYRROLATE 1 MG TABLET GT SCH ×2 (08:43→16:53)
[2016-11-04] MEDS: LEVETIRACETAM SOL (5 ML) 100 MG/ML UDC GT SCH ×2 (08:43→21:18)
[2016-11-04] MEDS: DOCUSATE SODIUM LIQ 100 MG/10 ML UDC GT SCH ×2 (08:43→16:53)
[2016-11-04] MEDS: Z GUARD REMEDY 4 OZ OINT TP SCH ×2 (08:44→21:19)
[2016-11-04] MEDS: HYDROGEN PEROXIDE 480 ML BOTTLE TP SCH ×2 (08:44→21:18)
[2016-11-04 19:38] VITALS: BP 107/64
[2016-11-04] MEDS: INSULIN DETEMIR 100 UNIT/ML CARTRIDGE SQ SCH (21:19)
[2016-11-04] MEDS: GLYTROL 1,000 ML BAG GT PRN (21:27)
[2016-11-05] MEDS: IPRATROPIUM NEB FS 0.5 MG/2.5 ML AMPUL.NEB NEB SCH ×4 (01:18→19:57)
[2016-11-05] MEDS: ALBUTEROL FS 2.5 MG/3 ML VIAL.NEB NEB SCH ×4 (01:18→19:57)
[2016-11-05] MEDS: PANTOPRAZOLE 40 MG/PACK PACK GT SCH (05:38)
[2016-11-05] MEDS: BLOOD SUGAR DIAGNOSTIC 1 EACH STRIP IN SCH ×2 (05:38→17:49)
[2016-11-05] MEDS: INSULIN LISPRO/ASPART 100 UNIT/ML CARTRIDGE SQ PRN (05:38)
[2016-11-05] MEDS: POLYVINYL ALCOHOL 15 ML BOTTLE EACHEYE SCH ×4 (05:38→23:15)
[2016-11-05 07:58] VITALS: BP 101/65
[2016-11-05] MEDS: FERROUS SULFATE - FOR SA ONLY 330 MG/7.5 ML UDC GT SCH ×3 (08:03→16:46)
[2016-11-05] MEDS: Z GUARD REMEDY 4 OZ OINT TP SCH ×2 (08:04→20:13)
[2016-11-05] MEDS: HYDROGEN PEROXIDE 480 ML BOTTLE TP SCH ×2 (08:04→20:13)
[2016-11-05] MEDS: ASCORBIC ACID 500 MG TABLET GT SCH ×2 (08:04→16:46)
[2016-11-05] MEDS: MVI/MINERALS LIQUID (CEROVITE) GT SCH (08:05)
[2016-11-05] MEDS: POTASSIUM CHLORIDE 20 MEQ POWDER PACKET GT SCH (08:08)
[2016-11-05] MEDS: ISONIAZID (300 MG) 300 MG TABLET GT SCH (08:08)
[2016-11-05] MEDS: PYRIDOXINE HCL 50 MG TABLET GT SCH (08:08)
[2016-11-05] MEDS: BACLOFEN (10 MG) 10 MG TABLET GT SCH ×3 (08:08→16:45)
[2016-11-05] MEDS: GLYCOPYRROLATE 1 MG TABLET GT SCH ×2 (08:08→16:45)
[2016-11-05] MEDS: LEVETIRACETAM SOL (5 ML) 100 MG/ML UDC GT SCH ×2 (08:08→20:13)
[2016-11-05] MEDS: DOCUSATE SODIUM LIQ 100 MG/10 ML UDC GT SCH ×2 (08:08→16:46)
[2016-11-05 08:26] VITALS: BP 101/65
[2016-11-05 19:50] VITALS: BP 103/64
[2016-11-05] MEDS: GLYTROL 1,000 ML BAG GT PRN (20:13)
[2016-11-05] MEDS: INSULIN DETEMIR 100 UNIT/ML CARTRIDGE SQ SCH (21:35)
--- NOTE | 2016-11-05 21:57 | NUR ---
PT noted with gluteal crease open skin,good perineal care given.Obtained order for Z guard and cover with mepilex q shift x 14 days and wound consult. Addendum: 11/05/16 at 2211 by CAMRON TOWNSEND RN pt sister Bere notified of skin issues,appreciative.
[2016-11-06] MEDS: ALBUTEROL FS 2.5 MG/3 ML VIAL.NEB NEB SCH ×4 (01:19→19:33)
[2016-11-06] MEDS: IPRATROPIUM NEB FS 0.5 MG/2.5 ML AMPUL.NEB NEB SCH ×4 (01:19→19:33)
[2016-11-06] MEDS: POLYVINYL ALCOHOL 15 ML BOTTLE EACHEYE SCH ×4 (05:19→23:31)
[2016-11-06] MEDS: INSULIN LISPRO/ASPART 100 UNIT/ML CARTRIDGE SQ PRN (05:19)
[2016-11-06] MEDS: PANTOPRAZOLE 40 MG/PACK PACK GT SCH (05:19)
[2016-11-06] MEDS: BLOOD SUGAR DIAGNOSTIC 1 EACH STRIP IN SCH ×2 (05:19→18:19)
[2016-11-06 07:56] VITALS: BP 95/60
[2016-11-06] MEDS: GLYCOPYRROLATE 1 MG TABLET GT SCH ×2 (09:07→16:53)
[2016-11-06] MEDS: DOCUSATE SODIUM LIQ 100 MG/10 ML UDC GT SCH ×2 (09:07→16:53)
[2016-11-06] MEDS: LEVETIRACETAM SOL (5 ML) 100 MG/ML UDC GT SCH ×2 (09:07→20:46)
[2016-11-06] MEDS: ISONIAZID (300 MG) 300 MG TABLET GT SCH (09:07)
[2016-11-06] MEDS: FERROUS SULFATE - FOR SA ONLY 330 MG/7.5 ML UDC GT SCH ×3 (09:07→16:53)
[2016-11-06] MEDS: BACLOFEN (10 MG) 10 MG TABLET GT SCH ×3 (09:08→16:53)
[2016-11-06] MEDS: POTASSIUM CHLORIDE 20 MEQ POWDER PACKET GT SCH (09:08)
[2016-11-06] MEDS: PYRIDOXINE HCL 50 MG TABLET GT SCH (09:08)
[2016-11-06] MEDS: MVI/MINERALS LIQUID (CEROVITE) GT SCH (09:08)
[2016-11-06] MEDS: Z GUARD REMEDY 4 OZ OINT TP SCH ×3 (09:08→20:46)
[2016-11-06] MEDS: HYDROGEN PEROXIDE 480 ML BOTTLE TP SCH ×2 (09:08→20:46)
[2016-11-06] MEDS: ASCORBIC ACID 500 MG TABLET GT SCH ×2 (09:08→16:53)
--- NOTE | 2016-11-06 13:27 | NUR ---
Seen and examined by Dr. Bullard, no new order given at this time.
[2016-11-06] MEDS: GLYTROL 1,000 ML BAG GT PRN (18:24)
[2016-11-06 19:33] VITALS: BP 112/68
[2016-11-06] MEDS: INSULIN DETEMIR 100 UNIT/ML CARTRIDGE SQ SCH (21:16)
[2016-11-07] MEDS: IPRATROPIUM NEB FS 0.5 MG/2.5 ML AMPUL.NEB NEB SCH ×4 (01:17→19:31)
[2016-11-07] MEDS: ALBUTEROL FS 2.5 MG/3 ML VIAL.NEB NEB SCH ×4 (01:17→19:31)
[2016-11-07] MEDS: BLOOD SUGAR DIAGNOSTIC 1 EACH STRIP IN SCH ×2 (05:18→18:43)
[2016-11-07] MEDS: PANTOPRAZOLE 40 MG/PACK PACK GT SCH (05:18)
[2016-11-07] MEDS: POLYVINYL ALCOHOL 15 ML BOTTLE EACHEYE SCH ×4 (05:18→23:33)
[2016-11-07] MEDS: INSULIN LISPRO/ASPART 100 UNIT/ML CARTRIDGE SQ PRN (05:19)
--- NOTE | 2016-11-07 06:11 | NUR ---
During providing care to patient noted with slight redness on left hand. No skin breakdown noted, no s/sx of infection noted. Dr. Bullard made aware to just continue to monitor for any adverse changes. Handled gently during care. Good skin care rendered. RP notofoed. Will continue to monitor. Addendum: 11/07/16 at 0650 by OSWALD WINSTON RN RP notified.
[2016-11-07 08:04] VITALS: BP 103/62
[2016-11-07] MEDS: ISONIAZID (300 MG) 300 MG TABLET GT SCH (08:37)
[2016-11-07] MEDS: DOCUSATE SODIUM LIQ 100 MG/10 ML UDC GT SCH ×2 (08:37→16:33)
[2016-11-07] MEDS: PYRIDOXINE HCL 50 MG TABLET GT SCH (08:37)
[2016-11-07] MEDS: MVI/MINERALS LIQUID (CEROVITE) GT SCH (08:37)
[2016-11-07] MEDS: BACLOFEN (10 MG) 10 MG TABLET GT SCH ×3 (08:37→16:33)
[2016-11-07] MEDS: Z GUARD REMEDY 4 OZ OINT TP SCH ×4 (08:37→21:05)
[2016-11-07] MEDS: POTASSIUM CHLORIDE 20 MEQ POWDER PACKET GT SCH (08:37)
[2016-11-07] MEDS: HYDROGEN PEROXIDE 480 ML BOTTLE TP SCH ×2 (08:37→21:04)
[2016-11-07] MEDS: ASCORBIC ACID 500 MG TABLET GT SCH ×2 (08:37→16:33)
[2016-11-07] MEDS: GLYCOPYRROLATE 1 MG TABLET GT SCH ×2 (08:37→16:33)
[2016-11-07] MEDS: LEVETIRACETAM SOL (5 ML) 100 MG/ML UDC GT SCH ×2 (08:37→21:04)
[2016-11-07] MEDS: FERROUS SULFATE - FOR SA ONLY 330 MG/7.5 ML UDC GT SCH ×3 (08:37→16:33)
[2016-11-07 19:27] VITALS: BP 94/64
[2016-11-07] MEDS: INSULIN DETEMIR 100 UNIT/ML CARTRIDGE SQ SCH (21:05)
[2016-11-08] MEDS: IPRATROPIUM NEB FS 0.5 MG/2.5 ML AMPUL.NEB NEB SCH ×4 (02:01→20:22)
[2016-11-08] MEDS: ALBUTEROL FS 2.5 MG/3 ML VIAL.NEB NEB SCH ×4 (02:01→20:22)
[2016-11-08] MEDS: BLOOD SUGAR DIAGNOSTIC 1 EACH STRIP IN SCH ×2 (06:12→18:01)
[2016-11-08] MEDS: POLYVINYL ALCOHOL 15 ML BOTTLE EACHEYE SCH ×4 (06:12→23:55)
[2016-11-08] MEDS: PANTOPRAZOLE 40 MG/PACK PACK GT SCH (06:12)
[2016-11-08] MEDS: INSULIN LISPRO/ASPART 100 UNIT/ML CARTRIDGE SQ PRN (06:13)
[2016-11-08] MEDS: DOCUSATE SODIUM LIQ 100 MG/10 ML UDC GT SCH ×2 (08:16→17:00)
[2016-11-08] MEDS: PYRIDOXINE HCL 50 MG TABLET GT SCH (08:17)
[2016-11-08] MEDS: LEVETIRACETAM SOL (5 ML) 100 MG/ML UDC GT SCH ×2 (08:17→21:12)
[2016-11-08] MEDS: FERROUS SULFATE - FOR SA ONLY 330 MG/7.5 ML UDC GT SCH ×3 (08:17→17:00)
[2016-11-08] MEDS: ISONIAZID (300 MG) 300 MG TABLET GT SCH (08:17)
[2016-11-08] MEDS: POTASSIUM CHLORIDE 20 MEQ POWDER PACKET GT SCH (08:17)
[2016-11-08] MEDS: MVI/MINERALS LIQUID (CEROVITE) GT SCH (08:17)
[2016-11-08] MEDS: BACLOFEN (10 MG) 10 MG TABLET GT SCH ×3 (08:17→17:00)
[2016-11-08] MEDS: ASCORBIC ACID 500 MG TABLET GT SCH ×2 (08:17→17:00)
[2016-11-08] MEDS: GLYCOPYRROLATE 1 MG TABLET GT SCH ×2 (08:17→17:00)
[2016-11-08 08:29] VITALS: BP 107/71
[2016-11-08] MEDS: Z GUARD REMEDY 4 OZ OINT TP SCH ×4 (10:30→21:13)
[2016-11-08] MEDS: HYDROGEN PEROXIDE 480 ML BOTTLE TP SCH ×2 (10:30→21:12)
--- NOTE | 2016-11-08 11:39 | NUR ---
WOUND CARE CONSULT: PT PRESENTS WITH SLIGHT EXCORIATION TO GLUTEAL CREASE. CONCUR WITH CURRENT TREATMENT OF Z GUARD/MEPILEX. SKIN TO BE KEPT CLEAN AND DRY. DISCUSSED WITH NURSING STAFF. ALL SKIN PROTECTION MEASURES IN PLACE. MD IN AGREEMENT WITH PLAN OF CARE.
--- NOTE | 2016-11-08 11:40 | NUR ---
Pt was seen by wound nurse Ita for gluteal crease excoriation. No new order.
--- NOTE | 2016-11-08 18:08 | NUR ---
Head circumference with 56cm.
[2016-11-08 20:04] VITALS: BP 123/66
[2016-11-08] MEDS: INSULIN DETEMIR 100 UNIT/ML CARTRIDGE SQ SCH (21:13)
[2016-11-09] MEDS: ALBUTEROL FS 2.5 MG/3 ML VIAL.NEB NEB SCH ×4 (01:30→19:30)
[2016-11-09] MEDS: IPRATROPIUM NEB FS 0.5 MG/2.5 ML AMPUL.NEB NEB SCH ×4 (02:29→19:30)
[2016-11-09] MEDS: BLOOD SUGAR DIAGNOSTIC 1 EACH STRIP IN SCH ×2 (05:43→17:33)
[2016-11-09] MEDS: POLYVINYL ALCOHOL 15 ML BOTTLE EACHEYE SCH ×3 (05:43→17:33)
[2016-11-09] MEDS: PANTOPRAZOLE 40 MG/PACK PACK GT SCH (05:43)
[2016-11-09 08:01] VITALS: BP 103/49
[2016-11-09] MEDS: LEVETIRACETAM SOL (5 ML) 100 MG/ML UDC GT SCH ×2 (08:50→20:52)
[2016-11-09] MEDS: ISONIAZID (300 MG) 300 MG TABLET GT SCH (08:50)
[2016-11-09] MEDS: POTASSIUM CHLORIDE 20 MEQ POWDER PACKET GT SCH (08:50)
[2016-11-09] MEDS: MVI/MINERALS LIQUID (CEROVITE) GT SCH (08:50)
[2016-11-09] MEDS: PYRIDOXINE HCL 50 MG TABLET GT SCH (08:50)
[2016-11-09] MEDS: FERROUS SULFATE - FOR SA ONLY 330 MG/7.5 ML UDC GT SCH ×3 (08:50→17:32)
[2016-11-09] MEDS: DOCUSATE SODIUM LIQ 100 MG/10 ML UDC GT SCH ×2 (08:50→17:32)
[2016-11-09] MEDS: ASCORBIC ACID 500 MG TABLET GT SCH ×2 (08:50→17:33)
[2016-11-09] MEDS: GLYCOPYRROLATE 1 MG TABLET GT SCH ×2 (08:50→17:33)
[2016-11-09] MEDS: BACLOFEN (10 MG) 10 MG TABLET GT SCH ×3 (08:50→17:33)
[2016-11-09] MEDS: HYDROGEN PEROXIDE 480 ML BOTTLE TP SCH ×2 (10:45→20:53)
[2016-11-09] MEDS: Z GUARD REMEDY 4 OZ OINT TP SCH ×4 (10:45→20:53)
[2016-11-09 20:02] VITALS: BP 87/52
[2016-11-09] MEDS: INSULIN DETEMIR 100 UNIT/ML CARTRIDGE SQ SCH (21:02)
[2016-11-10] MEDS: ALBUTEROL FS 2.5 MG/3 ML VIAL.NEB NEB SCH ×5 (02:11→20:19)
[2016-11-10] MEDS: IPRATROPIUM NEB FS 0.5 MG/2.5 ML AMPUL.NEB NEB SCH ×5 (02:11→20:19)
[2016-11-10] MEDS: POLYVINYL ALCOHOL 15 ML BOTTLE EACHEYE SCH ×5 (05:53→23:59)
[2016-11-10] MEDS: PANTOPRAZOLE 40 MG/PACK PACK GT SCH (05:53)
[2016-11-10] MEDS: BLOOD SUGAR DIAGNOSTIC 1 EACH STRIP IN SCH ×2 (05:53→17:36)
[2016-11-10 07:46] VITALS: BP 133/69
[2016-11-10] MEDS: MVI/MINERALS LIQUID (CEROVITE) GT SCH (08:40)
[2016-11-10] MEDS: ISONIAZID (300 MG) 300 MG TABLET GT SCH (08:40)
[2016-11-10] MEDS: FERROUS SULFATE - FOR SA ONLY 330 MG/7.5 ML UDC GT SCH ×3 (08:40→16:23)
[2016-11-10] MEDS: PYRIDOXINE HCL 50 MG TABLET GT SCH (08:40)
[2016-11-10] MEDS: BACLOFEN (10 MG) 10 MG TABLET GT SCH ×3 (08:40→16:23)
[2016-11-10] MEDS: GLYCOPYRROLATE 1 MG TABLET GT SCH ×2 (08:40→16:23)
[2016-11-10] MEDS: HYDROGEN PEROXIDE 480 ML BOTTLE TP SCH ×2 (08:40→21:22)
[2016-11-10] MEDS: DOCUSATE SODIUM LIQ 100 MG/10 ML UDC GT SCH ×2 (08:40→16:23)
[2016-11-10] MEDS: POTASSIUM CHLORIDE 20 MEQ POWDER PACKET GT SCH (08:40)
[2016-11-10] MEDS: LEVETIRACETAM SOL (5 ML) 100 MG/ML UDC GT SCH ×2 (08:40→21:22)
[2016-11-10] MEDS: Z GUARD REMEDY 4 OZ OINT TP SCH ×4 (08:40→21:22)
[2016-11-10] MEDS: ASCORBIC ACID 500 MG TABLET GT SCH ×2 (08:40→16:23)
[2016-11-10] MEDS ORDERED: CLINDAMYCIN 900 MG/6 ML VIAL ONE (09:27)
[2016-11-10] MEDS: INSULIN LISPRO/ASPART 100 UNIT/ML CARTRIDGE SQ PRN (17:36)
[2016-11-10 20:00] VITALS: BP 101/68
[2016-11-10] MEDS: INSULIN DETEMIR 100 UNIT/ML CARTRIDGE SQ SCH (21:22)
[2016-11-10] MEDS: GLYTROL 1,000 ML BAG GT PRN (22:29)
[2016-11-11] MEDS: IPRATROPIUM NEB FS 0.5 MG/2.5 ML AMPUL.NEB NEB SCH ×5 (02:14→20:58)
[2016-11-11] MEDS: ALBUTEROL FS 2.5 MG/3 ML VIAL.NEB NEB SCH ×5 (02:14→20:58)
[2016-11-11] MEDS: INSULIN LISPRO/ASPART 100 UNIT/ML CARTRIDGE SQ PRN (05:30)
[2016-11-11] MEDS: POLYVINYL ALCOHOL 15 ML BOTTLE EACHEYE SCH ×3 (05:30→18:12)
[2016-11-11] MEDS: PANTOPRAZOLE 40 MG/PACK PACK GT SCH (05:30)
[2016-11-11] MEDS: BLOOD SUGAR DIAGNOSTIC 1 EACH STRIP IN SCH ×2 (05:30→18:12)
[2016-11-11 07:58] VITALS: BP 114/58
[2016-11-11] MEDS: GLYCOPYRROLATE 1 MG TABLET GT SCH ×2 (08:36→16:52)
[2016-11-11] MEDS: DOCUSATE SODIUM LIQ 100 MG/10 ML UDC GT SCH ×2 (08:36→16:52)
[2016-11-11] MEDS: ISONIAZID (300 MG) 300 MG TABLET GT SCH (08:36)
[2016-11-11] MEDS: PYRIDOXINE HCL 50 MG TABLET GT SCH (08:36)
[2016-11-11] MEDS: BACLOFEN (10 MG) 10 MG TABLET GT SCH ×3 (08:36→16:52)
[2016-11-11] MEDS: POTASSIUM CHLORIDE 20 MEQ POWDER PACKET GT SCH (08:36)
[2016-11-11] MEDS: ASCORBIC ACID 500 MG TABLET GT SCH ×2 (08:36→16:52)
[2016-11-11] MEDS: LEVETIRACETAM SOL (5 ML) 100 MG/ML UDC GT SCH ×2 (08:36→21:20)
[2016-11-11] MEDS: MVI/MINERALS LIQUID (CEROVITE) GT SCH (08:36)
[2016-11-11] MEDS: FERROUS SULFATE - FOR SA ONLY 330 MG/7.5 ML UDC GT SCH ×3 (08:36→16:52)
[2016-11-11] MEDS: Z GUARD REMEDY 4 OZ OINT TP SCH ×4 (10:15→21:21)
[2016-11-11] MEDS: HYDROGEN PEROXIDE 480 ML BOTTLE TP SCH ×2 (10:15→21:20)
--- NOTE | 2016-11-11 15:00 | NUR ---
Seen by Mya Rodgers NP with no new order.
--- NOTE | 2016-11-11 16:11 | NUR ---
Head circumference measured with 57cm. Addendum: 11/11/16 at 1611 by ROSANNA VARGAS LVN Amended: Links added.
[2016-11-11 19:24] VITALS: BP 98/59
[2016-11-11] MEDS: INSULIN DETEMIR 100 UNIT/ML CARTRIDGE SQ SCH (21:21)
[2016-11-11] MEDS: GLYTROL 1,000 ML BAG GT PRN (21:51)
[2016-11-12] MEDS: POLYVINYL ALCOHOL 15 ML BOTTLE EACHEYE SCH ×4 (00:39→17:15)
[2016-11-12] MEDS: ALBUTEROL FS 2.5 MG/3 ML VIAL.NEB NEB SCH ×4 (02:00→19:52)
[2016-11-12] MEDS: IPRATROPIUM NEB FS 0.5 MG/2.5 ML AMPUL.NEB NEB SCH ×4 (02:00→19:52)
[2016-11-12] MEDS: BLOOD SUGAR DIAGNOSTIC 1 EACH STRIP IN SCH ×2 (05:31→17:16)
[2016-11-12] MEDS: PANTOPRAZOLE 40 MG/PACK PACK GT SCH (05:31)
[2016-11-12] MEDS: INSULIN LISPRO/ASPART 100 UNIT/ML CARTRIDGE SQ PRN ×2 (05:32→17:17)
[2016-11-12 07:49] VITALS: BP 139/74
[2016-11-12] MEDS: FERROUS SULFATE - FOR SA ONLY 330 MG/7.5 ML UDC GT SCH ×3 (08:40→16:45)
[2016-11-12] MEDS: BACLOFEN (10 MG) 10 MG TABLET GT SCH ×3 (08:40→16:46)
[2016-11-12] MEDS: DOCUSATE SODIUM LIQ 100 MG/10 ML UDC GT SCH ×2 (08:40→16:45)
[2016-11-12] MEDS: GLYCOPYRROLATE 1 MG TABLET GT SCH ×2 (08:40→16:45)
[2016-11-12] MEDS: POTASSIUM CHLORIDE 20 MEQ POWDER PACKET GT SCH (08:40)
[2016-11-12] MEDS: ISONIAZID (300 MG) 300 MG TABLET GT SCH (08:40)
[2016-11-12] MEDS: Z GUARD REMEDY 4 OZ OINT TP SCH ×4 (08:41→21:23)
[2016-11-12] MEDS: PYRIDOXINE HCL 50 MG TABLET GT SCH (08:41)
[2016-11-12] MEDS: MVI/MINERALS LIQUID (CEROVITE) GT SCH (08:41)
[2016-11-12] MEDS: HYDROGEN PEROXIDE 480 ML BOTTLE TP SCH ×2 (08:41→21:22)
[2016-11-12] MEDS: ASCORBIC ACID 500 MG TABLET GT SCH ×2 (08:41→16:46)
[2016-11-12] MEDS: LEVETIRACETAM SOL (5 ML) 100 MG/ML UDC GT SCH ×2 (09:00→21:22)
[2016-11-12] MEDS: GLYTROL 1,000 ML BAG GT PRN (16:57)
[2016-11-12 19:21] VITALS: BP 109/67
[2016-11-12] MEDS: INSULIN DETEMIR 100 UNIT/ML CARTRIDGE SQ SCH (21:23)
[2016-11-13] MEDS: POLYVINYL ALCOHOL 15 ML BOTTLE EACHEYE SCH ×5 (00:20→21:00)
[2016-11-13] MEDS: IPRATROPIUM NEB FS 0.5 MG/2.5 ML AMPUL.NEB NEB SCH ×4 (01:41→19:06)
[2016-11-13] MEDS: ALBUTEROL FS 2.5 MG/3 ML VIAL.NEB NEB SCH ×4 (01:41→19:06)
[2016-11-13] MEDS: BLOOD SUGAR DIAGNOSTIC 1 EACH STRIP IN SCH ×2 (05:43→17:14)
[2016-11-13] MEDS: PANTOPRAZOLE 40 MG/PACK PACK GT SCH (05:43)
[2016-11-13] MEDS: INSULIN LISPRO/ASPART 100 UNIT/ML CARTRIDGE SQ PRN ×2 (05:44→17:21)
[2016-11-13 08:00] VITALS: BP 110/67
[2016-11-13] MEDS: PYRIDOXINE HCL 50 MG TABLET GT SCH (08:39)
[2016-11-13] MEDS: LEVETIRACETAM SOL (5 ML) 100 MG/ML UDC GT SCH ×2 (08:39→21:00)
[2016-11-13] MEDS: ISONIAZID (300 MG) 300 MG TABLET GT SCH (08:39)
[2016-11-13] MEDS: BACLOFEN (10 MG) 10 MG TABLET GT SCH ×3 (08:39→17:26)
[2016-11-13] MEDS: FERROUS SULFATE - FOR SA ONLY 330 MG/7.5 ML UDC GT SCH ×3 (08:39→17:26)
[2016-11-13] MEDS: MVI/MINERALS LIQUID (CEROVITE) GT SCH (08:39)
[2016-11-13] MEDS: DOCUSATE SODIUM LIQ 100 MG/10 ML UDC GT SCH ×2 (08:39→17:14)
[2016-11-13] MEDS: POTASSIUM CHLORIDE 20 MEQ POWDER PACKET GT SCH (08:39)
[2016-11-13] MEDS: GLYCOPYRROLATE 1 MG TABLET GT SCH ×2 (08:39→17:14)
[2016-11-13] MEDS: HYDROGEN PEROXIDE 480 ML BOTTLE TP SCH ×2 (08:40→21:00)
[2016-11-13] MEDS: Z GUARD REMEDY 4 OZ OINT TP SCH ×4 (08:40→21:00)
[2016-11-13] MEDS: ASCORBIC ACID 500 MG TABLET GT SCH ×2 (08:40→17:14)
[2016-11-13] MEDS: GLYTROL 1,000 ML BAG GT PRN (17:14)
[2016-11-13 19:40] VITALS: BP 114/71
[2016-11-13] MEDS: INSULIN DETEMIR 100 UNIT/ML CARTRIDGE SQ SCH (21:00)
[2016-11-14] MEDS: IPRATROPIUM NEB FS 0.5 MG/2.5 ML AMPUL.NEB NEB SCH ×4 (00:38→19:30)
[2016-11-14] MEDS: ALBUTEROL FS 2.5 MG/3 ML VIAL.NEB NEB SCH ×4 (00:38→19:30)
[2016-11-14] MEDS: BLOOD SUGAR DIAGNOSTIC 1 EACH STRIP IN SCH ×2 (05:45→17:16)
[2016-11-14] MEDS: PANTOPRAZOLE 40 MG/PACK PACK GT SCH (05:45)
[2016-11-14] MEDS: POLYVINYL ALCOHOL 15 ML BOTTLE EACHEYE SCH ×3 (05:45→17:15)
[2016-11-14 08:46] VITALS: BP 103/73
[2016-11-14] MEDS: FERROUS SULFATE - FOR SA ONLY 330 MG/7.5 ML UDC GT SCH ×3 (09:14→16:05)
[2016-11-14] MEDS: ISONIAZID (300 MG) 300 MG TABLET GT SCH (09:14)
[2016-11-14] MEDS: HYDROGEN PEROXIDE 480 ML BOTTLE TP SCH ×2 (09:14→20:25)
[2016-11-14] MEDS: DOCUSATE SODIUM LIQ 100 MG/10 ML UDC GT SCH ×2 (09:14→16:05)
[2016-11-14] MEDS: LEVETIRACETAM SOL (5 ML) 100 MG/ML UDC GT SCH ×2 (09:14→20:25)
[2016-11-14] MEDS: ASCORBIC ACID 500 MG TABLET GT SCH ×2 (09:14→16:05)
[2016-11-14] MEDS: GLYCOPYRROLATE 1 MG TABLET GT SCH ×2 (09:14→16:05)
[2016-11-14] MEDS: MVI/MINERALS LIQUID (CEROVITE) GT SCH (09:14)
[2016-11-14] MEDS: POTASSIUM CHLORIDE 20 MEQ POWDER PACKET GT SCH (09:14)
[2016-11-14] MEDS: BACLOFEN (10 MG) 10 MG TABLET GT SCH ×3 (09:14→16:05)
[2016-11-14] MEDS: PYRIDOXINE HCL 50 MG TABLET GT SCH (09:14)
[2016-11-14] MEDS: Z GUARD REMEDY 4 OZ OINT TP SCH ×4 (09:15→20:26)
[2016-11-14 20:13] VITALS: BP 109/69
[2016-11-14] MEDS: INSULIN DETEMIR 100 UNIT/ML CARTRIDGE SQ SCH (22:00)
[2016-11-15] MEDS: POLYVINYL ALCOHOL 15 ML BOTTLE EACHEYE SCH ×5 (00:02→23:26)
[2016-11-15] MEDS: ALBUTEROL FS 2.5 MG/3 ML VIAL.NEB NEB SCH ×4 (02:19→19:32)
[2016-11-15] MEDS: IPRATROPIUM NEB FS 0.5 MG/2.5 ML AMPUL.NEB NEB SCH ×4 (02:19→19:32)
[2016-11-15] MEDS: BLOOD SUGAR DIAGNOSTIC 1 EACH STRIP IN SCH ×2 (05:49→18:58)
[2016-11-15] MEDS: PANTOPRAZOLE 40 MG/PACK PACK GT SCH (05:49)
[2016-11-15 06:38] LABS: ALBUMIN 3.2 g/dL (3.4-5.0); BILIRUBIN,DIRECT 0.1 mg/dL (0.0-0.2); BILIRUBIN,TOTAL 0.2 mg/dL (0.2-1.0); TOTAL PROTEIN, SERUM 7.6 g/dL (6.4-8.2)
[2016-11-15 08:32] VITALS: BP 91/65
[2016-11-15] MEDS: POTASSIUM CHLORIDE 20 MEQ POWDER PACKET GT SCH (08:41)
[2016-11-15] MEDS: PYRIDOXINE HCL 50 MG TABLET GT SCH (08:41)
[2016-11-15] MEDS: LEVETIRACETAM SOL (5 ML) 100 MG/ML UDC GT SCH ×2 (08:41→21:01)
[2016-11-15] MEDS: BACLOFEN (10 MG) 10 MG TABLET GT SCH ×3 (08:41→17:02)
[2016-11-15] MEDS: MVI/MINERALS LIQUID (CEROVITE) GT SCH (08:41)
[2016-11-15] MEDS: FERROUS SULFATE - FOR SA ONLY 330 MG/7.5 ML UDC GT SCH ×3 (08:41→17:02)
[2016-11-15] MEDS: GLYCOPYRROLATE 1 MG TABLET GT SCH ×2 (08:41→17:02)
[2016-11-15] MEDS: HYDROGEN PEROXIDE 480 ML BOTTLE TP SCH ×2 (08:41→21:01)
[2016-11-15] MEDS: DOCUSATE SODIUM LIQ 100 MG/10 ML UDC GT SCH ×2 (08:41→17:02)
[2016-11-15] MEDS: ISONIAZID (300 MG) 300 MG TABLET GT SCH (08:41)
[2016-11-15] MEDS: ASCORBIC ACID 500 MG TABLET GT SCH ×2 (08:41→17:02)
[2016-11-15] MEDS: Z GUARD REMEDY 4 OZ OINT TP SCH ×4 (08:41→21:02)
[2016-11-15] MEDS: INSULIN LISPRO/ASPART 100 UNIT/ML CARTRIDGE SQ PRN (18:58)
[2016-11-15 20:01] VITALS: BP 119/70
[2016-11-15] MEDS: INSULIN DETEMIR 100 UNIT/ML CARTRIDGE SQ SCH (21:02)
[2016-11-16] MEDS: ALBUTEROL FS 2.5 MG/3 ML VIAL.NEB NEB SCH ×4 (01:08→19:30)
[2016-11-16] MEDS: IPRATROPIUM NEB FS 0.5 MG/2.5 ML AMPUL.NEB NEB SCH ×4 (01:08→19:30)
[2016-11-16] MEDS: BLOOD SUGAR DIAGNOSTIC 1 EACH STRIP IN SCH ×2 (05:31→18:18)
[2016-11-16] MEDS: POLYVINYL ALCOHOL 15 ML BOTTLE EACHEYE SCH ×3 (05:31→17:46)
[2016-11-16] MEDS: PANTOPRAZOLE 40 MG/PACK PACK GT SCH (05:31)
[2016-11-16] MEDS: GLYTROL 1,000 ML BAG GT PRN (05:32)
[2016-11-16 07:44] VITALS: BP 112/57
[2016-11-16] MEDS: DOCUSATE SODIUM LIQ 100 MG/10 ML UDC GT SCH ×2 (08:47→17:45)
[2016-11-16] MEDS: PYRIDOXINE HCL 50 MG TABLET GT SCH (08:47)
[2016-11-16] MEDS: LEVETIRACETAM SOL (5 ML) 100 MG/ML UDC GT SCH ×2 (08:47→20:19)
[2016-11-16] MEDS: ASCORBIC ACID 500 MG TABLET GT SCH ×2 (08:47→17:45)
[2016-11-16] MEDS: ISONIAZID (300 MG) 300 MG TABLET GT SCH (08:47)
[2016-11-16] MEDS: GLYCOPYRROLATE 1 MG TABLET GT SCH ×2 (08:47→17:45)
[2016-11-16] MEDS: BACLOFEN (10 MG) 10 MG TABLET GT SCH ×3 (08:47→17:45)
[2016-11-16] MEDS: HYDROGEN PEROXIDE 480 ML BOTTLE TP SCH ×2 (08:47→20:19)
[2016-11-16] MEDS: Z GUARD REMEDY 4 OZ OINT TP SCH ×4 (08:47→20:19)
[2016-11-16] MEDS: MVI/MINERALS LIQUID (CEROVITE) GT SCH (08:47)
[2016-11-16] MEDS: FERROUS SULFATE - FOR SA ONLY 330 MG/7.5 ML UDC GT SCH ×3 (08:47→17:45)
[2016-11-16] MEDS: POTASSIUM CHLORIDE 20 MEQ POWDER PACKET GT SCH (08:47)
--- NOTE | 2016-11-16 09:40 | NUR ---
Seen by Dr Alvarez with no new order.
[2016-11-16] MEDS: INSULIN LISPRO/ASPART 100 UNIT/ML CARTRIDGE SQ PRN (18:18)
[2016-11-16 19:56] VITALS: BP 112/70
[2016-11-16] MEDS: INSULIN DETEMIR 100 UNIT/ML CARTRIDGE SQ SCH (21:30)
[2016-11-17] MEDS: POLYVINYL ALCOHOL 15 ML BOTTLE EACHEYE SCH ×4 (00:42→17:31)
[2016-11-17] MEDS: IPRATROPIUM NEB FS 0.5 MG/2.5 ML AMPUL.NEB NEB SCH ×4 (02:14→19:33)
[2016-11-17] MEDS: ALBUTEROL FS 2.5 MG/3 ML VIAL.NEB NEB SCH ×4 (02:14→19:33)
[2016-11-17] MEDS: BLOOD SUGAR DIAGNOSTIC 1 EACH STRIP IN SCH ×2 (06:04→17:31)
[2016-11-17] MEDS: PANTOPRAZOLE 40 MG/PACK PACK GT SCH (06:04)
[2016-11-17 08:09] VITALS: BP 109/72
[2016-11-17] MEDS: DOCUSATE SODIUM LIQ 100 MG/10 ML UDC GT SCH ×2 (08:26→17:31)
[2016-11-17] MEDS: GLYCOPYRROLATE 1 MG TABLET GT SCH ×2 (08:26→17:31)
[2016-11-17] MEDS: FERROUS SULFATE - FOR SA ONLY 330 MG/7.5 ML UDC GT SCH ×3 (08:26→17:31)
[2016-11-17] MEDS: BACLOFEN (10 MG) 10 MG TABLET GT SCH ×3 (08:27→17:31)
[2016-11-17] MEDS: LEVETIRACETAM SOL (5 ML) 100 MG/ML UDC GT SCH ×2 (08:27→21:11)
[2016-11-17] MEDS: MVI/MINERALS LIQUID (CEROVITE) GT SCH (08:27)
[2016-11-17] MEDS: ASCORBIC ACID 500 MG TABLET GT SCH ×2 (08:27→17:31)
[2016-11-17] MEDS: PYRIDOXINE HCL 50 MG TABLET GT SCH (08:27)
[2016-11-17] MEDS: HYDROGEN PEROXIDE 480 ML BOTTLE TP SCH ×2 (08:27→21:11)
[2016-11-17] MEDS: POTASSIUM CHLORIDE 20 MEQ POWDER PACKET GT SCH (08:27)
[2016-11-17] MEDS: ISONIAZID (300 MG) 300 MG TABLET GT SCH (08:27)
[2016-11-17] MEDS: Z GUARD REMEDY 4 OZ OINT TP SCH ×4 (08:28→21:11)
[2016-11-17] MEDS: INSULIN LISPRO/ASPART 100 UNIT/ML CARTRIDGE SQ PRN (17:32)
--- NOTE | 2016-11-17 17:50 | NUR ---
Seen and examined by Mya Rodgers NP for Dr. Alvarez, compressor stations superintendent, NNO given.
[2016-11-17 20:10] VITALS: BP 110/70
[2016-11-17] MEDS: INSULIN DETEMIR 100 UNIT/ML CARTRIDGE SQ SCH (21:45)
[2016-11-18] MEDS: POLYVINYL ALCOHOL 15 ML BOTTLE EACHEYE SCH ×4 (00:14→17:35)
[2016-11-18] MEDS: GLYTROL 1,000 ML BAG GT PRN (00:31)
[2016-11-18] MEDS: IPRATROPIUM NEB FS 0.5 MG/2.5 ML AMPUL.NEB NEB SCH ×4 (00:47→20:00)
[2016-11-18] MEDS: ALBUTEROL FS 2.5 MG/3 ML VIAL.NEB NEB SCH ×4 (00:47→20:00)
[2016-11-18] MEDS: PANTOPRAZOLE 40 MG/PACK PACK GT SCH (05:59)
[2016-11-18] MEDS: BLOOD SUGAR DIAGNOSTIC 1 EACH STRIP IN SCH ×2 (05:59→17:35)
[2016-11-18] MEDS: INSULIN LISPRO/ASPART 100 UNIT/ML CARTRIDGE SQ PRN (05:59)
[2016-11-18] MEDS: BACLOFEN (10 MG) 10 MG TABLET GT SCH ×3 (09:18→16:54)
[2016-11-18] MEDS: MVI/MINERALS LIQUID (CEROVITE) GT SCH (09:18)
[2016-11-18] MEDS: LEVETIRACETAM SOL (5 ML) 100 MG/ML UDC GT SCH ×2 (09:18→21:44)
[2016-11-18] MEDS: ISONIAZID (300 MG) 300 MG TABLET GT SCH (09:18)
[2016-11-18] MEDS: ASCORBIC ACID 500 MG TABLET GT SCH ×2 (09:18→16:54)
[2016-11-18] MEDS: Z GUARD REMEDY 4 OZ OINT TP SCH ×4 (09:18→21:44)
[2016-11-18] MEDS: HYDROGEN PEROXIDE 480 ML BOTTLE TP SCH ×2 (09:18→21:44)
[2016-11-18] MEDS: GLYCOPYRROLATE 1 MG TABLET GT SCH ×2 (09:18→16:54)
[2016-11-18] MEDS: FERROUS SULFATE - FOR SA ONLY 330 MG/7.5 ML UDC GT SCH ×3 (09:18→16:54)
[2016-11-18] MEDS: POTASSIUM CHLORIDE 20 MEQ POWDER PACKET GT SCH (09:18)
[2016-11-18] MEDS: PYRIDOXINE HCL 50 MG TABLET GT SCH (09:18)
[2016-11-18] MEDS: DOCUSATE SODIUM LIQ 100 MG/10 ML UDC GT SCH ×2 (09:18→16:54)
--- NOTE | 2016-11-18 18:08 | NUR ---
Seen and examined by Dr. Bullard with NNO
[2016-11-18 20:12] VITALS: BP 110/70
[2016-11-18] MEDS: INSULIN DETEMIR 100 UNIT/ML CARTRIDGE SQ SCH (21:45)
[2016-11-19] MEDS: POLYVINYL ALCOHOL 15 ML BOTTLE EACHEYE SCH ×5 (00:53→23:56)
[2016-11-19] MEDS: GLYTROL 1,000 ML BAG GT PRN (01:05)
[2016-11-19] MEDS: IPRATROPIUM NEB FS 0.5 MG/2.5 ML AMPUL.NEB NEB SCH ×4 (01:39→19:29)
[2016-11-19] MEDS: ALBUTEROL FS 2.5 MG/3 ML VIAL.NEB NEB SCH ×4 (01:39→19:29)
[2016-11-19] MEDS: PANTOPRAZOLE 40 MG/PACK PACK GT SCH (06:09)
[2016-11-19] MEDS: BLOOD SUGAR DIAGNOSTIC 1 EACH STRIP IN SCH ×2 (06:09→18:00)
[2016-11-19 07:50] VITALS: BP 100/69
[2016-11-19] MEDS: POTASSIUM CHLORIDE 20 MEQ POWDER PACKET GT SCH (09:23)
[2016-11-19] MEDS: PYRIDOXINE HCL 50 MG TABLET GT SCH (09:23)
[2016-11-19] MEDS: LEVETIRACETAM SOL (5 ML) 100 MG/ML UDC GT SCH ×2 (09:23→21:27)
[2016-11-19] MEDS: BACLOFEN (10 MG) 10 MG TABLET GT SCH ×3 (09:23→17:14)
[2016-11-19] MEDS: GLYCOPYRROLATE 1 MG TABLET GT SCH ×2 (09:23→17:14)
[2016-11-19] MEDS: Z GUARD REMEDY 4 OZ OINT TP SCH ×4 (09:23→21:28)
[2016-11-19] MEDS: HYDROGEN PEROXIDE 480 ML BOTTLE TP SCH ×2 (09:23→21:27)
[2016-11-19] MEDS: ISONIAZID (300 MG) 300 MG TABLET GT SCH (09:23)
[2016-11-19] MEDS: MVI/MINERALS LIQUID (CEROVITE) GT SCH (09:23)
[2016-11-19] MEDS: ASCORBIC ACID 500 MG TABLET GT SCH ×2 (09:23→17:14)
[2016-11-19] MEDS: FERROUS SULFATE - FOR SA ONLY 330 MG/7.5 ML UDC GT SCH ×3 (09:23→17:14)
[2016-11-19] MEDS: DOCUSATE SODIUM LIQ 100 MG/10 ML UDC GT SCH ×2 (09:23→17:14)
[2016-11-19 19:59] VITALS: BP 108/75
[2016-11-19] MEDS: INSULIN DETEMIR 100 UNIT/ML CARTRIDGE SQ SCH (21:28)
[2016-11-20] MEDS: IPRATROPIUM NEB FS 0.5 MG/2.5 ML AMPUL.NEB NEB SCH ×4 (01:22→18:54)
[2016-11-20] MEDS: ALBUTEROL FS 2.5 MG/3 ML VIAL.NEB NEB SCH ×4 (01:22→18:54)
[2016-11-20] MEDS: PANTOPRAZOLE 40 MG/PACK PACK GT SCH (06:00)
[2016-11-20] MEDS: POLYVINYL ALCOHOL 15 ML BOTTLE EACHEYE SCH ×3 (06:00→17:10)
[2016-11-20] MEDS: BLOOD SUGAR DIAGNOSTIC 1 EACH STRIP IN SCH ×2 (06:00→17:27)
[2016-11-20] MEDS: INSULIN LISPRO/ASPART 100 UNIT/ML CARTRIDGE SQ PRN (06:01)
[2016-11-20] MEDS: GLYTROL 1,000 ML BAG GT PRN (06:14)
[2016-11-20 08:00] VITALS: BP 115/72
[2016-11-20] MEDS: HYDROGEN PEROXIDE 480 ML BOTTLE TP SCH ×2 (09:00→21:25)
[2016-11-20] MEDS: GLYCOPYRROLATE 1 MG TABLET GT SCH ×2 (09:00→17:10)
[2016-11-20] MEDS: MVI/MINERALS LIQUID (CEROVITE) GT SCH (09:00)
[2016-11-20] MEDS: FERROUS SULFATE - FOR SA ONLY 330 MG/7.5 ML UDC GT SCH ×3 (09:00→17:10)
[2016-11-20] MEDS: PYRIDOXINE HCL 50 MG TABLET GT SCH (09:00)
[2016-11-20] MEDS: POTASSIUM CHLORIDE 20 MEQ POWDER PACKET GT SCH (09:00)
[2016-11-20] MEDS: ASCORBIC ACID 500 MG TABLET GT SCH ×2 (09:00→17:10)
[2016-11-20] MEDS: LEVETIRACETAM SOL (5 ML) 100 MG/ML UDC GT SCH ×2 (09:00→21:25)
[2016-11-20] MEDS: Z GUARD REMEDY 4 OZ OINT TP SCH ×3 (09:00→21:25)
[2016-11-20] MEDS: DOCUSATE SODIUM LIQ 100 MG/10 ML UDC GT SCH ×2 (09:00→17:10)
[2016-11-20] MEDS: BACLOFEN (10 MG) 10 MG TABLET GT SCH ×3 (09:00→17:10)
[2016-11-20] MEDS: ISONIAZID (300 MG) 300 MG TABLET GT SCH (09:00)
--- NOTE | 2016-11-20 15:10 | NUR ---
RT RECEIVED PT TRACH'D ON [facility] VENT WITH SETTINGS PER MD ORDER. PUBLICATIONS PRODUCTION SUPERVISOR DONE. BILAT BREATH SOUNDS ON AUSCULTATION. VENT PLUGGED INTO RED OUTLET. ALARMS ON AND WORKING PROPERLY. SPARE TRACH AND AMBU BAG AT BEDSIDE. TRACH SECURE AND AIRWAY PATENT. TX'S GIVEN AND TOLERATED WELL. NO ADVERSE REACTIONS OBSERVED. NO SOB OR SIGNS OF DISTRESS NOTED AT THIS TIME. WILL CONTINUE TO MONITOR THE PATIENT FOR ANY CHANGES. Addendum: 11/20/16 at 1605 by WING WHITTINGTON RT Amended: Links added.
--- NOTE | 2016-11-20 19:07 | NUR ---
Head circumference 57 cm.
[2016-11-20 19:55] VITALS: BP 110/62
[2016-11-20] MEDS: INSULIN DETEMIR 100 UNIT/ML CARTRIDGE SQ SCH (21:27)
[2016-11-21] MEDS: POLYVINYL ALCOHOL 15 ML BOTTLE EACHEYE SCH ×5 (00:46→23:15)
[2016-11-21] MEDS: IPRATROPIUM NEB FS 0.5 MG/2.5 ML AMPUL.NEB NEB SCH ×4 (01:05→20:23)
[2016-11-21] MEDS: ALBUTEROL FS 2.5 MG/3 ML VIAL.NEB NEB SCH ×4 (01:05→20:23)
[2016-11-21] MEDS: BLOOD SUGAR DIAGNOSTIC 1 EACH STRIP IN SCH ×2 (05:38→17:37)
[2016-11-21] MEDS: PANTOPRAZOLE 40 MG/PACK PACK GT SCH (05:38)
[2016-11-21] MEDS: INSULIN LISPRO/ASPART 100 UNIT/ML CARTRIDGE SQ PRN (05:38)
[2016-11-21] MEDS: GLYTROL 1,000 ML BAG GT PRN (05:40)
--- NOTE | 2016-11-21 07:12 | NUR ---
PT. RECEIVED ON 30% FIO2 WITH SATURATION OF 99% Addendum: 11/21/16 at 1132 by QUETA REYNA RT Amended: Links added.
[2016-11-21] MEDS: MVI/MINERALS LIQUID (CEROVITE) GT SCH (08:43)
[2016-11-21] MEDS: LEVETIRACETAM SOL (5 ML) 100 MG/ML UDC GT SCH ×2 (08:43→20:24)
[2016-11-21] MEDS: GLYCOPYRROLATE 1 MG TABLET GT SCH ×2 (08:43→17:37)
[2016-11-21] MEDS: FERROUS SULFATE - FOR SA ONLY 330 MG/7.5 ML UDC GT SCH ×3 (08:43→17:37)
[2016-11-21] MEDS: BACLOFEN (10 MG) 10 MG TABLET GT SCH ×3 (08:43→17:37)
[2016-11-21] MEDS: POTASSIUM CHLORIDE 20 MEQ POWDER PACKET GT SCH (08:43)
[2016-11-21] MEDS: Z GUARD REMEDY 4 OZ OINT TP SCH ×2 (08:43→20:24)
[2016-11-21] MEDS: ASCORBIC ACID 500 MG TABLET GT SCH ×2 (08:43→17:37)
[2016-11-21] MEDS: PYRIDOXINE HCL 50 MG TABLET GT SCH (08:43)
[2016-11-21] MEDS: DOCUSATE SODIUM LIQ 100 MG/10 ML UDC GT SCH ×2 (08:43→17:37)
[2016-11-21] MEDS: ISONIAZID (300 MG) 300 MG TABLET GT SCH (08:43)
[2016-11-21] MEDS: HYDROGEN PEROXIDE 480 ML BOTTLE TP SCH ×2 (08:43→20:24)
[2016-11-21 20:04] VITALS: BP 114/75
[2016-11-21] MEDS: INSULIN DETEMIR 100 UNIT/ML CARTRIDGE SQ SCH (21:11)
--- NOTE | 2016-11-22 00:33 | NUR ---
Patient received trached on mechanical vent. Breath sounds equal bilateral and trach midline. Tx given as ordered and tolerated well. No adverse reactions noted. Vent plugged into red outlet and alarms set and audible. Ambu bag at the bed side.
[2016-11-22] MEDS: ALBUTEROL FS 2.5 MG/3 ML VIAL.NEB NEB SCH ×4 (02:29→20:12)
[2016-11-22] MEDS: IPRATROPIUM NEB FS 0.5 MG/2.5 ML AMPUL.NEB NEB SCH ×4 (02:29→20:12)
[2016-11-22] MEDS: POLYVINYL ALCOHOL 15 ML BOTTLE EACHEYE SCH ×3 (05:38→17:52)
[2016-11-22] MEDS: BLOOD SUGAR DIAGNOSTIC 1 EACH STRIP IN SCH ×2 (05:38→17:52)
[2016-11-22] MEDS: PANTOPRAZOLE 40 MG/PACK PACK GT SCH (05:38)
[2016-11-22 08:00] VITALS: BP 103/72
[2016-11-22] MEDS: PYRIDOXINE HCL 50 MG TABLET GT SCH (08:49)
[2016-11-22] MEDS: ASCORBIC ACID 500 MG TABLET GT SCH ×2 (08:49→17:52)
[2016-11-22] MEDS: BACLOFEN (10 MG) 10 MG TABLET GT SCH ×3 (08:49→17:52)
[2016-11-22] MEDS: POTASSIUM CHLORIDE 20 MEQ POWDER PACKET GT SCH (08:49)
[2016-11-22] MEDS: MVI/MINERALS LIQUID (CEROVITE) GT SCH (08:49)
[2016-11-22] MEDS: ISONIAZID (300 MG) 300 MG TABLET GT SCH (08:49)
[2016-11-22] MEDS: FERROUS SULFATE - FOR SA ONLY 330 MG/7.5 ML UDC GT SCH ×3 (08:49→17:52)
[2016-11-22] MEDS: Z GUARD REMEDY 4 OZ OINT TP SCH ×2 (08:49→20:17)
[2016-11-22] MEDS: LEVETIRACETAM SOL (5 ML) 100 MG/ML UDC GT SCH ×2 (08:49→20:16)
[2016-11-22] MEDS: GLYCOPYRROLATE 1 MG TABLET GT SCH ×2 (08:49→17:52)
[2016-11-22] MEDS: DOCUSATE SODIUM LIQ 100 MG/10 ML UDC GT SCH ×2 (08:49→17:52)
[2016-11-22] MEDS: HYDROGEN PEROXIDE 480 ML BOTTLE TP SCH ×2 (08:49→20:17)
--- NOTE | 2016-11-22 10:38 | NUR ---
Faxed referral to [facility] (tel: [phone]/fax: [phone]) and spoke with Gerda. ERVIN asked them if they work with patient's that have medi-katie and she stated that yes she can check if resident will qualify for a customized wheelchair with her insurance. ERVIN will follow up. Addendum: 11/25/16 at 1135 by DIANNA MUELLER Received a call back from Gerda who stated that patient does not qualify due to her code status under medi-katie ( and post- benefits only).
[2016-11-22] MEDS: INSULIN LISPRO/ASPART 100 UNIT/ML CARTRIDGE SQ PRN (17:52)
[2016-11-22 20:15] VITALS: BP 104/55
[2016-11-22] MEDS: INSULIN DETEMIR 100 UNIT/ML CARTRIDGE SQ SCH (22:23)
[2016-11-23] MEDS: POLYVINYL ALCOHOL 15 ML BOTTLE EACHEYE SCH ×5 (00:08→23:55)
[2016-11-23] MEDS: ALBUTEROL FS 2.5 MG/3 ML VIAL.NEB NEB SCH ×4 (02:15→20:26)
[2016-11-23] MEDS: IPRATROPIUM NEB FS 0.5 MG/2.5 ML AMPUL.NEB NEB SCH ×4 (02:15→20:26)
[2016-11-23] MEDS: PANTOPRAZOLE 40 MG/PACK PACK GT SCH (05:15)
[2016-11-23] MEDS: BLOOD SUGAR DIAGNOSTIC 1 EACH STRIP IN SCH ×2 (05:15→18:33)
[2016-11-23 08:00] VITALS: BP 105/69
[2016-11-23] MEDS: FERROUS SULFATE - FOR SA ONLY 330 MG/7.5 ML UDC GT SCH ×3 (09:09→17:31)
[2016-11-23] MEDS: DOCUSATE SODIUM LIQ 100 MG/10 ML UDC GT SCH ×2 (09:09→17:31)
[2016-11-23] MEDS: GLYCOPYRROLATE 1 MG TABLET GT SCH ×2 (09:09→17:31)
[2016-11-23] MEDS: ISONIAZID (300 MG) 300 MG TABLET GT SCH (09:09)
[2016-11-23] MEDS: BACLOFEN (10 MG) 10 MG TABLET GT SCH ×3 (09:10→17:31)
[2016-11-23] MEDS: ASCORBIC ACID 500 MG TABLET GT SCH ×2 (09:10→17:31)
[2016-11-23] MEDS: POTASSIUM CHLORIDE 20 MEQ POWDER PACKET GT SCH (09:10)
[2016-11-23] MEDS: Z GUARD REMEDY 4 OZ OINT TP SCH ×2 (09:10→20:32)
[2016-11-23] MEDS: LEVETIRACETAM SOL (5 ML) 100 MG/ML UDC GT SCH ×2 (09:10→20:32)
[2016-11-23] MEDS: MVI/MINERALS LIQUID (CEROVITE) GT SCH (09:10)
[2016-11-23] MEDS: HYDROGEN PEROXIDE 480 ML BOTTLE TP SCH ×2 (09:10→20:32)
[2016-11-23] MEDS: PYRIDOXINE HCL 50 MG TABLET GT SCH (09:10)
--- NOTE | 2016-11-23 10:10 | NUR ---
Seen and examined by Dr Alvarez with no new order.
[2016-11-23] MEDS: INSULIN LISPRO/ASPART 100 UNIT/ML CARTRIDGE SQ PRN (18:34)
[2016-11-23 19:55] VITALS: BP 125/77
[2016-11-23] MEDS: INSULIN DETEMIR 100 UNIT/ML CARTRIDGE SQ SCH (22:53)
[2016-11-24] MEDS: IPRATROPIUM NEB FS 0.5 MG/2.5 ML AMPUL.NEB NEB SCH ×4 (01:30→20:27)
[2016-11-24] MEDS: ALBUTEROL FS 2.5 MG/3 ML VIAL.NEB NEB SCH ×4 (01:30→20:27)
[2016-11-24] MEDS: BLOOD SUGAR DIAGNOSTIC 1 EACH STRIP IN SCH ×2 (05:29→17:55)
[2016-11-24] MEDS: POLYVINYL ALCOHOL 15 ML BOTTLE EACHEYE SCH ×4 (05:29→23:54)
[2016-11-24] MEDS: PANTOPRAZOLE 40 MG/PACK PACK GT SCH (05:29)
[2016-11-24 08:11] VITALS: BP 136/60
[2016-11-24] MEDS: GLYCOPYRROLATE 1 MG TABLET GT SCH ×2 (09:35→17:55)
[2016-11-24] MEDS: DOCUSATE SODIUM LIQ 100 MG/10 ML UDC GT SCH ×2 (09:35→17:55)
[2016-11-24] MEDS: FERROUS SULFATE - FOR SA ONLY 330 MG/7.5 ML UDC GT SCH ×3 (09:35→17:55)
[2016-11-24] MEDS: PYRIDOXINE HCL 50 MG TABLET GT SCH (09:35)
[2016-11-24] MEDS: ISONIAZID (300 MG) 300 MG TABLET GT SCH (09:35)
[2016-11-24] MEDS: POTASSIUM CHLORIDE 20 MEQ POWDER PACKET GT SCH (09:35)
[2016-11-24] MEDS: ASCORBIC ACID 500 MG TABLET GT SCH ×2 (09:35→17:55)
[2016-11-24] MEDS: MVI/MINERALS LIQUID (CEROVITE) GT SCH (09:35)
[2016-11-24] MEDS: BACLOFEN (10 MG) 10 MG TABLET GT SCH ×3 (09:35→17:55)
[2016-11-24] MEDS: LEVETIRACETAM SOL (5 ML) 100 MG/ML UDC GT SCH ×2 (09:35→21:16)
[2016-11-24] MEDS: Z GUARD REMEDY 4 OZ OINT TP SCH ×2 (09:36→21:17)
[2016-11-24] MEDS: HYDROGEN PEROXIDE 480 ML BOTTLE TP SCH ×2 (09:36→21:17)
[2016-11-24 20:01] VITALS: BP 100/56
[2016-11-24] MEDS: INSULIN DETEMIR 100 UNIT/ML CARTRIDGE SQ SCH (21:17)
[2016-11-24] MEDS: GLYTROL 1,000 ML BAG GT PRN (21:40)
[2016-11-25] MEDS: ALBUTEROL FS 2.5 MG/3 ML VIAL.NEB NEB SCH ×4 (01:57→19:39)
[2016-11-25] MEDS: IPRATROPIUM NEB FS 0.5 MG/2.5 ML AMPUL.NEB NEB SCH ×4 (01:57→19:39)
[2016-11-25] MEDS: INSULIN LISPRO/ASPART 100 UNIT/ML CARTRIDGE SQ PRN (05:09)
[2016-11-25] MEDS: BLOOD SUGAR DIAGNOSTIC 1 EACH STRIP IN SCH ×2 (05:09→17:18)
[2016-11-25] MEDS: PANTOPRAZOLE 40 MG/PACK PACK GT SCH (05:09)
[2016-11-25] MEDS: POLYVINYL ALCOHOL 15 ML BOTTLE EACHEYE SCH ×4 (05:09→23:15)
[2016-11-25 07:35] VITALS: BP 120/75
[2016-11-25] MEDS: GLYCOPYRROLATE 1 MG TABLET GT SCH ×2 (09:00→17:18)
[2016-11-25] MEDS: POTASSIUM CHLORIDE 20 MEQ POWDER PACKET GT SCH (09:00)
[2016-11-25] MEDS: LEVETIRACETAM SOL (5 ML) 100 MG/ML UDC GT SCH ×2 (09:00→20:22)
[2016-11-25] MEDS: ISONIAZID (300 MG) 300 MG TABLET GT SCH (09:00)
[2016-11-25] MEDS: HYDROGEN PEROXIDE 480 ML BOTTLE TP SCH ×2 (09:00→20:22)
[2016-11-25] MEDS: FERROUS SULFATE - FOR SA ONLY 330 MG/7.5 ML UDC GT SCH ×3 (09:00→17:18)
[2016-11-25] MEDS: DOCUSATE SODIUM LIQ 100 MG/10 ML UDC GT SCH ×2 (09:00→17:18)
[2016-11-25] MEDS: MVI/MINERALS LIQUID (CEROVITE) GT SCH (09:00)
[2016-11-25] MEDS: BACLOFEN (10 MG) 10 MG TABLET GT SCH ×3 (09:00→17:18)
[2016-11-25] MEDS: ASCORBIC ACID 500 MG TABLET GT SCH ×2 (09:00→17:18)
[2016-11-25] MEDS: PYRIDOXINE HCL 50 MG TABLET GT SCH (09:00)
[2016-11-25] MEDS: Z GUARD REMEDY 4 OZ OINT TP SCH ×2 (09:00→20:22)
[2016-11-25] MEDS: GLYTROL 1,000 ML BAG GT PRN (17:24)
[2016-11-25] MEDS: ACETAMINOPHEN 650 MG/20 ML UDC- FOR SA PATIENTS ONLY GT PRN (17:24)
--- NOTE | 2016-11-25 18:07 | NUR ---
Head circumference 58 cm.
[2016-11-25] MEDS: INSULIN DETEMIR 100 UNIT/ML CARTRIDGE SQ SCH (21:07)
[2016-11-25 22:07] VITALS: BP 98/62
[2016-11-26] MEDS: IPRATROPIUM NEB FS 0.5 MG/2.5 ML AMPUL.NEB NEB SCH ×4 (01:28→19:23)
[2016-11-26] MEDS: ALBUTEROL FS 2.5 MG/3 ML VIAL.NEB NEB SCH ×4 (01:28→19:22)
[2016-11-26] MEDS: INSULIN LISPRO/ASPART 100 UNIT/ML CARTRIDGE SQ PRN (05:14)
[2016-11-26] MEDS: PANTOPRAZOLE 40 MG/PACK PACK GT SCH (05:14)
[2016-11-26] MEDS: BLOOD SUGAR DIAGNOSTIC 1 EACH STRIP IN SCH ×2 (05:14→17:19)
[2016-11-26] MEDS: POLYVINYL ALCOHOL 15 ML BOTTLE EACHEYE SCH ×4 (05:14→23:22)
[2016-11-26 07:27] VITALS: BP 131/57
[2016-11-26] MEDS: FERROUS SULFATE - FOR SA ONLY 330 MG/7.5 ML UDC GT SCH ×3 (08:41→16:41)
[2016-11-26] MEDS: BACLOFEN (10 MG) 10 MG TABLET GT SCH ×3 (08:41→16:41)
[2016-11-26] MEDS: HYDROGEN PEROXIDE 480 ML BOTTLE TP SCH ×2 (08:41→20:21)
[2016-11-26] MEDS: MVI/MINERALS LIQUID (CEROVITE) GT SCH (08:41)
[2016-11-26] MEDS: Z GUARD REMEDY 4 OZ OINT TP SCH ×2 (08:41→20:21)
[2016-11-26] MEDS: ISONIAZID (300 MG) 300 MG TABLET GT SCH (08:41)
[2016-11-26] MEDS: GLYCOPYRROLATE 1 MG TABLET GT SCH ×2 (08:41→16:41)
[2016-11-26] MEDS: PYRIDOXINE HCL 50 MG TABLET GT SCH (08:41)
[2016-11-26] MEDS: LEVETIRACETAM SOL (5 ML) 100 MG/ML UDC GT SCH ×2 (08:41→20:21)
[2016-11-26] MEDS: ASCORBIC ACID 500 MG TABLET GT SCH ×2 (08:41→16:41)
[2016-11-26] MEDS: DOCUSATE SODIUM LIQ 100 MG/10 ML UDC GT SCH ×2 (08:41→16:40)
[2016-11-26] MEDS: POTASSIUM CHLORIDE 20 MEQ POWDER PACKET GT SCH (09:00)
[2016-11-26] MEDS: GLYTROL 1,000 ML BAG GT PRN (17:20)
[2016-11-26 19:31] VITALS: BP 111/63
[2016-11-26] MEDS: INSULIN DETEMIR 100 UNIT/ML CARTRIDGE SQ SCH (21:30)
[2016-11-27] MEDS: ALBUTEROL FS 2.5 MG/3 ML VIAL.NEB NEB SCH ×4 (01:19→19:26)
[2016-11-27] MEDS: IPRATROPIUM NEB FS 0.5 MG/2.5 ML AMPUL.NEB NEB SCH ×4 (01:19→19:26)
[2016-11-27] MEDS: BLOOD SUGAR DIAGNOSTIC 1 EACH STRIP IN SCH ×2 (05:26→17:14)
[2016-11-27] MEDS: POLYVINYL ALCOHOL 15 ML BOTTLE EACHEYE SCH ×4 (05:26→23:16)
[2016-11-27] MEDS: PANTOPRAZOLE 40 MG/PACK PACK GT SCH (05:26)
[2016-11-27] MEDS: INSULIN LISPRO/ASPART 100 UNIT/ML CARTRIDGE SQ PRN (05:26)
[2016-11-27 07:33] VITALS: BP 122/69
[2016-11-27] MEDS: ASCORBIC ACID 500 MG TABLET GT SCH ×2 (08:17→17:14)
[2016-11-27] MEDS: FERROUS SULFATE - FOR SA ONLY 330 MG/7.5 ML UDC GT SCH ×3 (08:17→17:14)
[2016-11-27] MEDS: POTASSIUM CHLORIDE 20 MEQ POWDER PACKET GT SCH (08:17)
[2016-11-27] MEDS: DOCUSATE SODIUM LIQ 100 MG/10 ML UDC GT SCH ×2 (08:17→17:14)
[2016-11-27] MEDS: BACLOFEN (10 MG) 10 MG TABLET GT SCH ×3 (08:17→17:14)
[2016-11-27] MEDS: LEVETIRACETAM SOL (5 ML) 100 MG/ML UDC GT SCH ×2 (08:17→20:25)
[2016-11-27] MEDS: GLYCOPYRROLATE 1 MG TABLET GT SCH ×2 (08:17→17:14)
[2016-11-27] MEDS: MVI/MINERALS LIQUID (CEROVITE) GT SCH (08:17)
[2016-11-27] MEDS: ISONIAZID (300 MG) 300 MG TABLET GT SCH (08:17)
[2016-11-27] MEDS: PYRIDOXINE HCL 50 MG TABLET GT SCH (08:17)
[2016-11-27] MEDS: HYDROGEN PEROXIDE 480 ML BOTTLE TP SCH ×2 (08:18→20:25)
[2016-11-27] MEDS: Z GUARD REMEDY 4 OZ OINT TP SCH ×2 (08:18→20:25)
[2016-11-27] MEDS: ACETAMINOPHEN 650 MG/20 ML UDC- FOR SA PATIENTS ONLY GT PRN (13:49)
[2016-11-27] MEDS: GLYTROL 1,000 ML BAG GT PRN (17:22)
[2016-11-27 19:52] VITALS: BP 111/70
[2016-11-27] MEDS: INSULIN DETEMIR 100 UNIT/ML CARTRIDGE SQ SCH (21:08)
[2016-11-28] MEDS: ALBUTEROL FS 2.5 MG/3 ML VIAL.NEB NEB SCH ×4 (01:52→19:30)
[2016-11-28] MEDS: IPRATROPIUM NEB FS 0.5 MG/2.5 ML AMPUL.NEB NEB SCH ×4 (01:52→19:30)
[2016-11-28] MEDS: POLYVINYL ALCOHOL 15 ML BOTTLE EACHEYE SCH ×4 (05:10→23:20)
[2016-11-28] MEDS: PANTOPRAZOLE 40 MG/PACK PACK GT SCH (05:10)
[2016-11-28] MEDS: BLOOD SUGAR DIAGNOSTIC 1 EACH STRIP IN SCH ×2 (05:11→18:47)
[2016-11-28] MEDS: INSULIN LISPRO/ASPART 100 UNIT/ML CARTRIDGE SQ PRN ×2 (05:11→18:47)
[2016-11-28 07:33] VITALS: BP 117/75
[2016-11-28] MEDS: LEVETIRACETAM SOL (5 ML) 100 MG/ML UDC GT SCH ×2 (09:17→21:02)
[2016-11-28] MEDS: ISONIAZID (300 MG) 300 MG TABLET GT SCH (09:17)
[2016-11-28] MEDS: GLYCOPYRROLATE 1 MG TABLET GT SCH ×2 (09:17→17:12)
[2016-11-28] MEDS: DOCUSATE SODIUM LIQ 100 MG/10 ML UDC GT SCH ×2 (09:17→17:12)
[2016-11-28] MEDS: BACLOFEN (10 MG) 10 MG TABLET GT SCH ×3 (09:17→17:12)
[2016-11-28] MEDS: FERROUS SULFATE - FOR SA ONLY 330 MG/7.5 ML UDC GT SCH ×3 (09:17→17:12)
[2016-11-28] MEDS: MVI/MINERALS LIQUID (CEROVITE) GT SCH (09:18)
[2016-11-28] MEDS: ASCORBIC ACID 500 MG TABLET GT SCH ×2 (09:18→17:12)
[2016-11-28] MEDS: PYRIDOXINE HCL 50 MG TABLET GT SCH (09:18)
[2016-11-28] MEDS: POTASSIUM CHLORIDE 20 MEQ POWDER PACKET GT SCH (09:19)
[2016-11-28] MEDS: HYDROGEN PEROXIDE 480 ML BOTTLE TP SCH ×2 (09:19→21:02)
[2016-11-28] MEDS: Z GUARD REMEDY 4 OZ OINT TP SCH ×2 (09:19→21:02)
[2016-11-28 19:48] VITALS: BP 133/86
[2016-11-28] MEDS: INSULIN DETEMIR 100 UNIT/ML CARTRIDGE SQ SCH (21:02)
[2016-11-28] MEDS: GLYTROL 1,000 ML BAG GT PRN (21:03)
[2016-11-29] MEDS: IPRATROPIUM NEB FS 0.5 MG/2.5 ML AMPUL.NEB NEB SCH ×4 (01:35→19:30)
[2016-11-29] MEDS: ALBUTEROL FS 2.5 MG/3 ML VIAL.NEB NEB SCH ×4 (01:35→19:30)
[2016-11-29] MEDS: POLYVINYL ALCOHOL 15 ML BOTTLE EACHEYE SCH ×4 (05:39→23:49)
[2016-11-29] MEDS: PANTOPRAZOLE 40 MG/PACK PACK GT SCH (05:39)
[2016-11-29] MEDS: BLOOD SUGAR DIAGNOSTIC 1 EACH STRIP IN SCH ×2 (05:39→18:15)
[2016-11-29 07:40] VITALS: BP 133/80
[2016-11-29] MEDS: DOCUSATE SODIUM LIQ 100 MG/10 ML UDC GT SCH ×2 (09:05→16:46)
[2016-11-29] MEDS: FERROUS SULFATE - FOR SA ONLY 330 MG/7.5 ML UDC GT SCH ×3 (09:05→16:46)
[2016-11-29] MEDS: ISONIAZID (300 MG) 300 MG TABLET GT SCH (09:05)
[2016-11-29] MEDS: BACLOFEN (10 MG) 10 MG TABLET GT SCH ×3 (09:05→16:46)
[2016-11-29] MEDS: LEVETIRACETAM SOL (5 ML) 100 MG/ML UDC GT SCH ×2 (09:05→20:24)
[2016-11-29] MEDS: POTASSIUM CHLORIDE 20 MEQ POWDER PACKET GT SCH (09:05)
[2016-11-29] MEDS: GLYCOPYRROLATE 1 MG TABLET GT SCH ×2 (09:05→16:46)
[2016-11-29] MEDS: ASCORBIC ACID 500 MG TABLET GT SCH ×2 (09:06→16:46)
[2016-11-29] MEDS: MVI/MINERALS LIQUID (CEROVITE) GT SCH (09:06)
[2016-11-29] MEDS: PYRIDOXINE HCL 50 MG TABLET GT SCH (09:06)
[2016-11-29] MEDS: HYDROGEN PEROXIDE 480 ML BOTTLE TP SCH ×2 (09:07→20:25)
[2016-11-29] MEDS: Z GUARD REMEDY 4 OZ OINT TP SCH ×2 (09:07→20:25)
[2016-11-29] MEDS: INSULIN LISPRO/ASPART 100 UNIT/ML CARTRIDGE SQ PRN (18:16)
[2016-11-29] MEDS: GLYTROL 1,000 ML BAG GT PRN (18:18)
[2016-11-29 20:27] VITALS: BP 109/72
[2016-11-29] MEDS: INSULIN DETEMIR 100 UNIT/ML CARTRIDGE SQ SCH (21:26)
[2016-11-30] MEDS: ALBUTEROL FS 2.5 MG/3 ML VIAL.NEB NEB SCH ×4 (01:19→19:30)
[2016-11-30] MEDS: IPRATROPIUM NEB FS 0.5 MG/2.5 ML AMPUL.NEB NEB SCH ×4 (01:19→19:30)
[2016-11-30] MEDS: POLYVINYL ALCOHOL 15 ML BOTTLE EACHEYE SCH ×4 (05:13→23:44)
[2016-11-30] MEDS: PANTOPRAZOLE 40 MG/PACK PACK GT SCH (05:13)
[2016-11-30] MEDS: BLOOD SUGAR DIAGNOSTIC 1 EACH STRIP IN SCH ×2 (05:50→18:06)
[2016-11-30 08:08] VITALS: BP 104/86
[2016-11-30] MEDS: GLYCOPYRROLATE 1 MG TABLET GT SCH ×2 (09:00→17:35)
[2016-11-30] MEDS: PYRIDOXINE HCL 50 MG TABLET GT SCH (09:00)
[2016-11-30] MEDS: HYDROGEN PEROXIDE 480 ML BOTTLE TP SCH ×2 (09:00→20:20)
[2016-11-30] MEDS: ISONIAZID (300 MG) 300 MG TABLET GT SCH (09:00)
[2016-11-30] MEDS: Z GUARD REMEDY 4 OZ OINT TP SCH ×2 (09:00→20:20)
[2016-11-30] MEDS: ASCORBIC ACID 500 MG TABLET GT SCH ×2 (09:00→17:35)
[2016-11-30] MEDS: FERROUS SULFATE - FOR SA ONLY 330 MG/7.5 ML UDC GT SCH ×3 (09:00→17:35)
[2016-11-30] MEDS: LEVETIRACETAM SOL (5 ML) 100 MG/ML UDC GT SCH ×2 (09:00→20:20)
[2016-11-30] MEDS: POTASSIUM CHLORIDE 20 MEQ POWDER PACKET GT SCH (09:00)
[2016-11-30] MEDS: BACLOFEN (10 MG) 10 MG TABLET GT SCH ×3 (09:00→17:35)
[2016-11-30] MEDS: MVI/MINERALS LIQUID (CEROVITE) GT SCH (09:00)
[2016-11-30] MEDS: DOCUSATE SODIUM LIQ 100 MG/10 ML UDC GT SCH ×2 (09:00→17:35)
[2016-11-30] MEDS: INSULIN LISPRO/ASPART 100 UNIT/ML CARTRIDGE SQ PRN (18:07)
[2016-11-30 19:42] VITALS: BP 108/70
[2016-11-30] MEDS: INSULIN DETEMIR 100 UNIT/ML CARTRIDGE SQ SCH (21:58)
[2016-12-01] MEDS: GLYTROL 1,000 ML BAG GT PRN ×2 (00:35→19:15)
[2016-12-01] MEDS: ALBUTEROL FS 2.5 MG/3 ML VIAL.NEB NEB SCH ×4 (01:19→19:36)
[2016-12-01] MEDS: IPRATROPIUM NEB FS 0.5 MG/2.5 ML AMPUL.NEB NEB SCH ×4 (01:19→19:36)
[2016-12-01] MEDS: POLYVINYL ALCOHOL 15 ML BOTTLE EACHEYE SCH ×4 (05:20→23:15)
[2016-12-01] MEDS: PANTOPRAZOLE 40 MG/PACK PACK GT SCH (05:20)
[2016-12-01] MEDS: BLOOD SUGAR DIAGNOSTIC 1 EACH STRIP IN SCH ×2 (05:54→17:01)
[2016-12-01 07:40] VITALS: BP 117/78
[2016-12-01] MEDS: DOCUSATE SODIUM LIQ 100 MG/10 ML UDC GT SCH ×2 (08:27→16:47)
[2016-12-01] MEDS: FERROUS SULFATE - FOR SA ONLY 330 MG/7.5 ML UDC GT SCH ×3 (08:27→16:47)
[2016-12-01] MEDS: ISONIAZID (300 MG) 300 MG TABLET GT SCH (08:28)
[2016-12-01] MEDS: LEVETIRACETAM SOL (5 ML) 100 MG/ML UDC GT SCH ×2 (08:28→20:50)
[2016-12-01] MEDS: POTASSIUM CHLORIDE 20 MEQ POWDER PACKET GT SCH (08:28)
[2016-12-01] MEDS: BACLOFEN (10 MG) 10 MG TABLET GT SCH ×3 (08:28→17:01)
[2016-12-01] MEDS: MVI/MINERALS LIQUID (CEROVITE) GT SCH (08:28)
[2016-12-01] MEDS: GLYCOPYRROLATE 1 MG TABLET GT SCH ×2 (08:28→17:01)
[2016-12-01] MEDS: Z GUARD REMEDY 4 OZ OINT TP SCH ×2 (08:30→20:50)
[2016-12-01] MEDS: PYRIDOXINE HCL 50 MG TABLET GT SCH (08:30)
[2016-12-01] MEDS: HYDROGEN PEROXIDE 480 ML BOTTLE TP SCH ×2 (08:30→20:50)
[2016-12-01] MEDS: ASCORBIC ACID 500 MG TABLET GT SCH ×2 (08:30→17:01)
[2016-12-01 20:02] VITALS: BP 115/74
[2016-12-01] MEDS: INSULIN DETEMIR 100 UNIT/ML CARTRIDGE SQ SCH (21:24)
[2016-12-02] MEDS: IPRATROPIUM NEB FS 0.5 MG/2.5 ML AMPUL.NEB NEB SCH ×4 (01:41→19:31)
[2016-12-02] MEDS: ALBUTEROL FS 2.5 MG/3 ML VIAL.NEB NEB SCH ×4 (01:41→19:31)
[2016-12-02] MEDS: PANTOPRAZOLE 40 MG/PACK PACK GT SCH (05:16)
[2016-12-02] MEDS: POLYVINYL ALCOHOL 15 ML BOTTLE EACHEYE SCH ×4 (05:16→23:37)
[2016-12-02] MEDS: BLOOD SUGAR DIAGNOSTIC 1 EACH STRIP IN SCH ×2 (05:56→17:40)
[2016-12-02 07:36] VITALS: BP 116/76
[2016-12-02 07:37] VITALS: BP 116/76
[2016-12-02] MEDS: FERROUS SULFATE - FOR SA ONLY 330 MG/7.5 ML UDC GT SCH ×3 (08:53→16:27)
[2016-12-02] MEDS: GLYCOPYRROLATE 1 MG TABLET GT SCH ×2 (08:53→16:27)
[2016-12-02] MEDS: BACLOFEN (10 MG) 10 MG TABLET GT SCH ×3 (08:53→16:27)
[2016-12-02] MEDS: MVI/MINERALS LIQUID (CEROVITE) GT SCH (08:53)
[2016-12-02] MEDS: ISONIAZID (300 MG) 300 MG TABLET GT SCH (08:53)
[2016-12-02] MEDS: LEVETIRACETAM SOL (5 ML) 100 MG/ML UDC GT SCH ×2 (08:53→20:33)
[2016-12-02] MEDS: DOCUSATE SODIUM LIQ 100 MG/10 ML UDC GT SCH ×2 (08:53→16:32)
[2016-12-02] MEDS: ASCORBIC ACID 500 MG TABLET GT SCH ×2 (08:54→16:27)
[2016-12-02] MEDS: PYRIDOXINE HCL 50 MG TABLET GT SCH (08:54)
[2016-12-02] MEDS: HYDROGEN PEROXIDE 480 ML BOTTLE TP SCH ×2 (09:04→20:33)
[2016-12-02] MEDS: POTASSIUM CHLORIDE 20 MEQ POWDER PACKET GT SCH (09:04)
[2016-12-02] MEDS: Z GUARD REMEDY 4 OZ OINT TP SCH ×2 (09:04→20:33)
[2016-12-02] MEDS: GLYTROL 1,000 ML BAG GT PRN (17:40)
[2016-12-02 20:32] VITALS: BP 109/71
[2016-12-02] MEDS: INSULIN DETEMIR 100 UNIT/ML CARTRIDGE SQ SCH (21:16)
[2016-12-03] MEDS: IPRATROPIUM NEB FS 0.5 MG/2.5 ML AMPUL.NEB NEB SCH ×4 (01:00→19:51)
[2016-12-03] MEDS: ALBUTEROL FS 2.5 MG/3 ML VIAL.NEB NEB SCH ×4 (01:01→19:51)
[2016-12-03] MEDS: POLYVINYL ALCOHOL 15 ML BOTTLE EACHEYE SCH ×4 (05:11→23:26)
[2016-12-03] MEDS: BLOOD SUGAR DIAGNOSTIC 1 EACH STRIP IN SCH ×2 (05:11→17:11)
[2016-12-03] MEDS: PANTOPRAZOLE 40 MG/PACK PACK GT SCH (05:11)
[2016-12-03] MEDS: INSULIN LISPRO/ASPART 100 UNIT/ML CARTRIDGE SQ PRN (05:12)
[2016-12-03 08:36] VITALS: BP 107/75
[2016-12-03] MEDS: FERROUS SULFATE - FOR SA ONLY 330 MG/7.5 ML UDC GT SCH ×3 (09:00→16:37)
[2016-12-03] MEDS: LEVETIRACETAM SOL (5 ML) 100 MG/ML UDC GT SCH ×2 (09:00→20:25)
[2016-12-03] MEDS: GLYCOPYRROLATE 1 MG TABLET GT SCH ×2 (09:00→16:37)
[2016-12-03] MEDS: ISONIAZID (300 MG) 300 MG TABLET GT SCH (09:00)
[2016-12-03] MEDS: POTASSIUM CHLORIDE 20 MEQ POWDER PACKET GT SCH (09:00)
[2016-12-03] MEDS: BACLOFEN (10 MG) 10 MG TABLET GT SCH ×3 (09:01→16:37)
[2016-12-03] MEDS: MVI/MINERALS LIQUID (CEROVITE) GT SCH (09:01)
[2016-12-03] MEDS: ASCORBIC ACID 500 MG TABLET GT SCH ×2 (09:02→16:37)
[2016-12-03] MEDS: HYDROGEN PEROXIDE 480 ML BOTTLE TP SCH ×2 (09:02→20:25)
[2016-12-03] MEDS: Z GUARD REMEDY 4 OZ OINT TP SCH ×2 (09:02→20:25)
[2016-12-03] MEDS: PYRIDOXINE HCL 50 MG TABLET GT SCH (09:02)
[2016-12-03] MEDS: DOCUSATE SODIUM LIQ 100 MG/10 ML UDC GT SCH ×2 (09:13→16:37)
[2016-12-03] MEDS: GLYTROL 1,000 ML BAG GT PRN (17:11)
[2016-12-03] MEDS: INSULIN DETEMIR 100 UNIT/ML CARTRIDGE SQ SCH (21:34)
[2016-12-03 21:38] VITALS: BP 107/59
[2016-12-04] MEDS: ALBUTEROL FS 2.5 MG/3 ML VIAL.NEB NEB SCH ×4 (01:48→19:31)
[2016-12-04] MEDS: IPRATROPIUM NEB FS 0.5 MG/2.5 ML AMPUL.NEB NEB SCH ×4 (01:48→19:31)
[2016-12-04] MEDS: PANTOPRAZOLE 40 MG/PACK PACK GT SCH (05:13)
[2016-12-04] MEDS: POLYVINYL ALCOHOL 15 ML BOTTLE EACHEYE SCH ×3 (05:13→18:06)
[2016-12-04] MEDS: INSULIN LISPRO/ASPART 100 UNIT/ML CARTRIDGE SQ PRN (05:13)
[2016-12-04] MEDS: BLOOD SUGAR DIAGNOSTIC 1 EACH STRIP IN SCH ×2 (05:13→18:06)
[2016-12-04 07:36] VITALS: BP 113/74
[2016-12-04] MEDS: MVI/MINERALS LIQUID (CEROVITE) GT SCH (08:07)
[2016-12-04] MEDS: ASCORBIC ACID 500 MG TABLET GT SCH ×2 (08:07→17:00)
[2016-12-04] MEDS: POTASSIUM CHLORIDE 20 MEQ POWDER PACKET GT SCH (08:07)
[2016-12-04] MEDS: LEVETIRACETAM SOL (5 ML) 100 MG/ML UDC GT SCH ×2 (08:07→21:20)
[2016-12-04] MEDS: GLYCOPYRROLATE 1 MG TABLET GT SCH ×2 (08:07→17:00)
[2016-12-04] MEDS: DOCUSATE SODIUM LIQ 100 MG/10 ML UDC GT SCH ×2 (08:07→17:00)
[2016-12-04] MEDS: ISONIAZID (300 MG) 300 MG TABLET GT SCH (08:07)
[2016-12-04] MEDS: PYRIDOXINE HCL 50 MG TABLET GT SCH (08:07)
[2016-12-04] MEDS: BACLOFEN (10 MG) 10 MG TABLET GT SCH ×3 (08:07→17:00)
[2016-12-04] MEDS: FERROUS SULFATE - FOR SA ONLY 330 MG/7.5 ML UDC GT SCH ×3 (08:07→17:00)
[2016-12-04] MEDS: HYDROGEN PEROXIDE 480 ML BOTTLE TP SCH ×2 (09:00→21:20)
[2016-12-04] MEDS: Z GUARD REMEDY 4 OZ OINT TP SCH ×2 (14:00→21:20)
[2016-12-04 20:50] VITALS: BP 120/73
[2016-12-04] MEDS: INSULIN DETEMIR 100 UNIT/ML CARTRIDGE SQ SCH (21:21)
[2016-12-05] MEDS: ALBUTEROL FS 2.5 MG/3 ML VIAL.NEB NEB SCH ×4 (01:26→19:12)
[2016-12-05] MEDS: IPRATROPIUM NEB FS 0.5 MG/2.5 ML AMPUL.NEB NEB SCH ×4 (01:26→19:12)
[2016-12-05] MEDS: BLOOD SUGAR DIAGNOSTIC 1 EACH STRIP IN SCH ×2 (05:51→06:02)
[2016-12-05] MEDS: PANTOPRAZOLE 40 MG/PACK PACK GT SCH (05:51)
[2016-12-05] MEDS: POLYVINYL ALCOHOL 15 ML BOTTLE EACHEYE SCH ×5 (06:02→23:47)
[2016-12-05 07:43] VITALS: BP 106/79
[2016-12-05] MEDS: DOCUSATE SODIUM LIQ 100 MG/10 ML UDC GT SCH ×2 (09:06→16:36)
[2016-12-05] MEDS: Z GUARD REMEDY 4 OZ OINT TP SCH ×2 (09:07→21:16)
[2016-12-05] MEDS: GLYCOPYRROLATE 1 MG TABLET GT SCH ×2 (09:07→16:38)
[2016-12-05] MEDS: FERROUS SULFATE - FOR SA ONLY 330 MG/7.5 ML UDC GT SCH ×3 (09:07→16:37)
[2016-12-05] MEDS: ISONIAZID (300 MG) 300 MG TABLET GT SCH (09:07)
[2016-12-05] MEDS: PYRIDOXINE HCL 50 MG TABLET GT SCH (09:07)
[2016-12-05] MEDS: LEVETIRACETAM SOL (5 ML) 100 MG/ML UDC GT SCH ×2 (09:07→21:16)
[2016-12-05] MEDS: HYDROGEN PEROXIDE 480 ML BOTTLE TP SCH ×2 (09:07→21:16)
[2016-12-05] MEDS: BACLOFEN (10 MG) 10 MG TABLET GT SCH ×3 (09:07→16:39)
[2016-12-05] MEDS: POTASSIUM CHLORIDE 20 MEQ POWDER PACKET GT SCH (09:07)
[2016-12-05] MEDS: MVI/MINERALS LIQUID (CEROVITE) GT SCH (09:07)
[2016-12-05] MEDS: ASCORBIC ACID 500 MG TABLET GT SCH ×2 (09:07→16:39)
--- NOTE | 2016-12-05 19:13 | NUR ---
PT RCVD ON [facility] VENT WITH NOTED SETTINGS. SUCTIONED MODERATE AMOUNT OF YELLOWISH WHITE THICK SECRETIONS, BILATERAL BS NOTED. VENT PLUGGED INTO RED OUTLET, VENT ALARMED AND WORKING. AMBU BAG AT BEDSIDE. NO RESPIRATORY DISTRESS AT THIS TIME. WILL CONTINUE TO MONITOR.
[2016-12-05 20:01] VITALS: BP 103/67
[2016-12-05] MEDS: INSULIN DETEMIR 100 UNIT/ML CARTRIDGE SQ SCH (21:16)
[2016-12-06] MEDS: IPRATROPIUM NEB FS 0.5 MG/2.5 ML AMPUL.NEB NEB SCH ×4 (00:48→20:13)
[2016-12-06] MEDS: ALBUTEROL FS 2.5 MG/3 ML VIAL.NEB NEB SCH ×4 (00:48→20:13)
[2016-12-06] MEDS: POLYVINYL ALCOHOL 15 ML BOTTLE EACHEYE SCH ×4 (05:20→23:38)
[2016-12-06] MEDS: PANTOPRAZOLE 40 MG/PACK PACK GT SCH (05:20)
[2016-12-06] MEDS: BLOOD SUGAR DIAGNOSTIC 1 EACH STRIP IN SCH ×2 (05:20→18:52)
[2016-12-06 07:54] VITALS: BP 105/62
[2016-12-06] MEDS: FERROUS SULFATE - FOR SA ONLY 330 MG/7.5 ML UDC GT SCH ×3 (09:31→17:33)
[2016-12-06] MEDS: GLYCOPYRROLATE 1 MG TABLET GT SCH ×2 (09:31→17:33)
[2016-12-06] MEDS: POTASSIUM CHLORIDE 20 MEQ POWDER PACKET GT SCH (09:31)
[2016-12-06] MEDS: BACLOFEN (10 MG) 10 MG TABLET GT SCH ×3 (09:31→17:33)
[2016-12-06] MEDS: DOCUSATE SODIUM LIQ 100 MG/10 ML UDC GT SCH ×2 (09:31→17:33)
[2016-12-06] MEDS: LEVETIRACETAM SOL (5 ML) 100 MG/ML UDC GT SCH ×2 (09:31→20:35)
[2016-12-06] MEDS: ISONIAZID (300 MG) 300 MG TABLET GT SCH (09:31)
[2016-12-06] MEDS: PYRIDOXINE HCL 50 MG TABLET GT SCH (09:31)
[2016-12-06] MEDS: ASCORBIC ACID 500 MG TABLET GT SCH ×2 (09:31→17:33)
[2016-12-06] MEDS: MVI/MINERALS LIQUID (CEROVITE) GT SCH (09:31)
[2016-12-06] MEDS: HYDROGEN PEROXIDE 480 ML BOTTLE TP SCH ×2 (09:32→20:35)
[2016-12-06] MEDS: Z GUARD REMEDY 4 OZ OINT TP SCH ×2 (09:32→20:35)
[2016-12-06] MEDS: INSULIN LISPRO/ASPART 100 UNIT/ML CARTRIDGE SQ PRN (18:53)
[2016-12-06] MEDS: GLYTROL 1,000 ML BAG GT PRN (19:12)
[2016-12-06 19:49] VITALS: BP 109/70
[2016-12-06] MEDS: INSULIN DETEMIR 100 UNIT/ML CARTRIDGE SQ SCH (21:42)
[2016-12-07] MEDS: ALBUTEROL FS 2.5 MG/3 ML VIAL.NEB NEB SCH ×4 (01:30→19:49)
[2016-12-07] MEDS: IPRATROPIUM NEB FS 0.5 MG/2.5 ML AMPUL.NEB NEB SCH ×4 (01:30→19:49)
[2016-12-07] MEDS: PANTOPRAZOLE 40 MG/PACK PACK GT SCH (05:20)
[2016-12-07] MEDS: POLYVINYL ALCOHOL 15 ML BOTTLE EACHEYE SCH ×4 (05:20→23:30)
[2016-12-07] MEDS: BLOOD SUGAR DIAGNOSTIC 1 EACH STRIP IN SCH ×2 (06:01→18:22)
[2016-12-07 08:15] VITALS: BP 98/56
[2016-12-07] MEDS: DOCUSATE SODIUM LIQ 100 MG/10 ML UDC GT SCH ×2 (09:34→17:25)
[2016-12-07] MEDS: FERROUS SULFATE - FOR SA ONLY 330 MG/7.5 ML UDC GT SCH ×3 (09:34→17:25)
[2016-12-07] MEDS: MVI/MINERALS LIQUID (CEROVITE) GT SCH (09:34)
[2016-12-07] MEDS: ASCORBIC ACID 500 MG TABLET GT SCH ×2 (09:34→17:25)
[2016-12-07] MEDS: Z GUARD REMEDY 4 OZ OINT TP SCH ×2 (09:34→20:26)
[2016-12-07] MEDS: HYDROGEN PEROXIDE 480 ML BOTTLE TP SCH ×2 (09:34→20:26)
[2016-12-07] MEDS: POTASSIUM CHLORIDE 20 MEQ POWDER PACKET GT SCH (09:34)
[2016-12-07] MEDS: BACLOFEN (10 MG) 10 MG TABLET GT SCH ×3 (09:34→17:25)
[2016-12-07] MEDS: PYRIDOXINE HCL 50 MG TABLET GT SCH (09:34)
[2016-12-07] MEDS: ISONIAZID (300 MG) 300 MG TABLET GT SCH (09:34)
[2016-12-07] MEDS: GLYCOPYRROLATE 1 MG TABLET GT SCH ×2 (09:34→17:25)
[2016-12-07] MEDS: LEVETIRACETAM SOL (5 ML) 100 MG/ML UDC GT SCH ×2 (09:34→20:26)
[2016-12-07] MEDS: INSULIN LISPRO/ASPART 100 UNIT/ML CARTRIDGE SQ PRN (18:23)
[2016-12-07 19:26] VITALS: BP 105/68
[2016-12-07] MEDS: INSULIN DETEMIR 100 UNIT/ML CARTRIDGE SQ SCH (21:33)
[2016-12-08] MEDS: IPRATROPIUM NEB FS 0.5 MG/2.5 ML AMPUL.NEB NEB SCH ×4 (02:12→20:06)
[2016-12-08] MEDS: ALBUTEROL FS 2.5 MG/3 ML VIAL.NEB NEB SCH ×4 (02:13→20:06)
[2016-12-08] MEDS: PANTOPRAZOLE 40 MG/PACK PACK GT SCH (05:31)
[2016-12-08] MEDS: POLYVINYL ALCOHOL 15 ML BOTTLE EACHEYE SCH ×3 (05:31→17:53)
[2016-12-08] MEDS: BLOOD SUGAR DIAGNOSTIC 1 EACH STRIP IN SCH ×2 (06:09→17:53)
[2016-12-08 07:53] VITALS: BP 131/67
[2016-12-08] MEDS: GLYCOPYRROLATE 1 MG TABLET GT SCH ×2 (08:10→16:21)
[2016-12-08] MEDS: DOCUSATE SODIUM LIQ 100 MG/10 ML UDC GT SCH ×2 (08:10→16:21)
[2016-12-08] MEDS: LEVETIRACETAM SOL (5 ML) 100 MG/ML UDC GT SCH ×2 (08:10→20:15)
[2016-12-08] MEDS: ISONIAZID (300 MG) 300 MG TABLET GT SCH (08:10)
[2016-12-08] MEDS: FERROUS SULFATE - FOR SA ONLY 330 MG/7.5 ML UDC GT SCH ×3 (08:10→16:22)
[2016-12-08] MEDS: POTASSIUM CHLORIDE 20 MEQ POWDER PACKET GT SCH (08:11)
[2016-12-08] MEDS: BACLOFEN (10 MG) 10 MG TABLET GT SCH ×3 (08:12→16:22)
[2016-12-08] MEDS: MVI/MINERALS LIQUID (CEROVITE) GT SCH (08:12)
[2016-12-08] MEDS: ASCORBIC ACID 500 MG TABLET GT SCH ×2 (08:12→16:21)
[2016-12-08] MEDS: PYRIDOXINE HCL 50 MG TABLET GT SCH (08:12)
[2016-12-08] MEDS: HYDROGEN PEROXIDE 480 ML BOTTLE TP SCH ×2 (08:14→20:16)
[2016-12-08] MEDS: Z GUARD REMEDY 4 OZ OINT TP SCH ×2 (08:14→20:16)
[2016-12-08] MEDS: INSULIN LISPRO/ASPART 100 UNIT/ML CARTRIDGE SQ PRN (17:53)
[2016-12-08] MEDS: GLYTROL 1,000 ML BAG GT PRN (17:53)
[2016-12-08 20:03] VITALS: BP 100/64
[2016-12-08] MEDS: INSULIN DETEMIR 100 UNIT/ML CARTRIDGE SQ SCH (21:43)
[2016-12-09] MEDS: POLYVINYL ALCOHOL 15 ML BOTTLE EACHEYE SCH ×4 (00:08→17:57)
[2016-12-09] MEDS: ALBUTEROL FS 2.5 MG/3 ML VIAL.NEB NEB SCH ×4 (02:06→20:09)
[2016-12-09] MEDS: IPRATROPIUM NEB FS 0.5 MG/2.5 ML AMPUL.NEB NEB SCH ×4 (02:06→20:09)
[2016-12-09] MEDS: PANTOPRAZOLE 40 MG/PACK PACK GT SCH (05:33)
[2016-12-09] MEDS: BLOOD SUGAR DIAGNOSTIC 1 EACH STRIP IN SCH ×2 (05:59→17:57)
[2016-12-09 07:38] VITALS: BP 131/72
[2016-12-09] MEDS: GLYCOPYRROLATE 1 MG TABLET GT SCH ×2 (09:09→16:17)
[2016-12-09] MEDS: FERROUS SULFATE - FOR SA ONLY 330 MG/7.5 ML UDC GT SCH ×3 (09:09→16:17)
[2016-12-09] MEDS: ISONIAZID (300 MG) 300 MG TABLET GT SCH (09:09)
[2016-12-09] MEDS: LEVETIRACETAM SOL (5 ML) 100 MG/ML UDC GT SCH ×2 (09:10→21:32)
[2016-12-09] MEDS: BACLOFEN (10 MG) 10 MG TABLET GT SCH ×3 (09:10→16:17)
[2016-12-09] MEDS: POTASSIUM CHLORIDE 20 MEQ POWDER PACKET GT SCH (09:10)
[2016-12-09] MEDS: MVI/MINERALS LIQUID (CEROVITE) GT SCH (09:11)
[2016-12-09] MEDS: ASCORBIC ACID 500 MG TABLET GT SCH ×2 (09:11→16:17)
[2016-12-09] MEDS: PYRIDOXINE HCL 50 MG TABLET GT SCH (09:11)
[2016-12-09] MEDS: DOCUSATE SODIUM LIQ 100 MG/10 ML UDC GT SCH ×2 (09:20→16:17)
[2016-12-09] MEDS: HYDROGEN PEROXIDE 480 ML BOTTLE TP SCH ×2 (09:20→21:32)
[2016-12-09] MEDS: Z GUARD REMEDY 4 OZ OINT TP SCH ×2 (09:20→21:32)
[2016-12-09] MEDS: GLYTROL 1,000 ML BAG GT PRN (17:58)
[2016-12-09] MEDS: INSULIN LISPRO/ASPART 100 UNIT/ML CARTRIDGE SQ PRN (17:58)
[2016-12-09 19:47] VITALS: BP 108/63
[2016-12-09] MEDS: INSULIN DETEMIR 100 UNIT/ML CARTRIDGE SQ SCH (21:32)
[2016-12-10] MEDS: POLYVINYL ALCOHOL 15 ML BOTTLE EACHEYE SCH ×5 (00:44→23:53)
[2016-12-10] MEDS: IPRATROPIUM NEB FS 0.5 MG/2.5 ML AMPUL.NEB NEB SCH ×4 (01:05→20:24)
[2016-12-10] MEDS: ALBUTEROL FS 2.5 MG/3 ML VIAL.NEB NEB SCH ×4 (01:05→20:24)
[2016-12-10] MEDS: BLOOD SUGAR DIAGNOSTIC 1 EACH STRIP IN SCH ×2 (06:16→18:21)
[2016-12-10] MEDS: PANTOPRAZOLE 40 MG/PACK PACK GT SCH (06:16)
[2016-12-10] MEDS: INSULIN LISPRO/ASPART 100 UNIT/ML CARTRIDGE SQ PRN (06:16)
[2016-12-10 07:41] VITALS: BP 126/77
[2016-12-10] MEDS: BACLOFEN (10 MG) 10 MG TABLET GT SCH ×3 (08:33→16:47)
[2016-12-10] MEDS: DOCUSATE SODIUM LIQ 100 MG/10 ML UDC GT SCH ×2 (08:33→16:36)
[2016-12-10] MEDS: ISONIAZID (300 MG) 300 MG TABLET GT SCH (08:33)
[2016-12-10] MEDS: LEVETIRACETAM SOL (5 ML) 100 MG/ML UDC GT SCH ×2 (08:33→21:44)
[2016-12-10] MEDS: POTASSIUM CHLORIDE 20 MEQ POWDER PACKET GT SCH (08:33)
[2016-12-10] MEDS: GLYCOPYRROLATE 1 MG TABLET GT SCH ×2 (08:33→16:46)
[2016-12-10] MEDS: ASCORBIC ACID 500 MG TABLET GT SCH ×2 (08:33→16:46)
[2016-12-10] MEDS: PYRIDOXINE HCL 50 MG TABLET GT SCH (08:33)
[2016-12-10] MEDS: FERROUS SULFATE - FOR SA ONLY 330 MG/7.5 ML UDC GT SCH ×3 (08:33→16:37)
[2016-12-10] MEDS: Z GUARD REMEDY 4 OZ OINT TP SCH ×2 (08:34→21:44)
[2016-12-10] MEDS: HYDROGEN PEROXIDE 480 ML BOTTLE TP SCH ×2 (08:34→21:44)
[2016-12-10] MEDS: MVI/MINERALS LIQUID (CEROVITE) GT SCH (08:39)
--- NOTE | 2016-12-10 13:37 | NUR ---
Recieved pt on appropriate settings and alarms. Pt is obtunded, and awake. Extra trache, and ambubag by bedside. Vent is plugged into red outlet. Pt was suctioned multiple times. Pt is stable with no signs of distress. Anthony cheung PARTS SALVAGER Addendum: 12/10/16 at 1341 by BARI CHEUNG RT Amended: Links added.
[2016-12-10 19:17] VITALS: BP 106/62
[2016-12-10] MEDS: INSULIN DETEMIR 100 UNIT/ML CARTRIDGE SQ SCH (22:39)
[2016-12-11] MEDS: IPRATROPIUM NEB FS 0.5 MG/2.5 ML AMPUL.NEB NEB SCH ×4 (01:01→19:56)
[2016-12-11] MEDS: ALBUTEROL FS 2.5 MG/3 ML VIAL.NEB NEB SCH ×4 (01:02→19:56)
[2016-12-11] MEDS: POLYVINYL ALCOHOL 15 ML BOTTLE EACHEYE SCH ×4 (05:54→23:55)
[2016-12-11] MEDS: BLOOD SUGAR DIAGNOSTIC 1 EACH STRIP IN SCH ×2 (05:54→18:23)
[2016-12-11] MEDS: PANTOPRAZOLE 40 MG/PACK PACK GT SCH (05:54)
[2016-12-11 07:30] VITALS: BP 108/71
[2016-12-11] MEDS: PYRIDOXINE HCL 50 MG TABLET GT SCH (08:19)
[2016-12-11] MEDS: DOCUSATE SODIUM LIQ 100 MG/10 ML UDC GT SCH ×2 (08:19→16:54)
[2016-12-11] MEDS: POTASSIUM CHLORIDE 20 MEQ POWDER PACKET GT SCH (08:19)
[2016-12-11] MEDS: MVI/MINERALS LIQUID (CEROVITE) GT SCH (08:19)
[2016-12-11] MEDS: GLYCOPYRROLATE 1 MG TABLET GT SCH ×2 (08:19→16:54)
[2016-12-11] MEDS: LEVETIRACETAM SOL (5 ML) 100 MG/ML UDC GT SCH ×2 (08:19→21:26)
[2016-12-11] MEDS: ASCORBIC ACID 500 MG TABLET GT SCH ×2 (08:19→16:54)
[2016-12-11] MEDS: ISONIAZID (300 MG) 300 MG TABLET GT SCH (08:19)
[2016-12-11] MEDS: FERROUS SULFATE - FOR SA ONLY 330 MG/7.5 ML UDC GT SCH ×3 (08:19→16:54)
[2016-12-11] MEDS: BACLOFEN (10 MG) 10 MG TABLET GT SCH ×3 (08:19→16:54)
[2016-12-11] MEDS: GLYTROL 1,000 ML BAG GT PRN (13:02)
[2016-12-11] MEDS: HYDROGEN PEROXIDE 480 ML BOTTLE TP SCH ×2 (13:30→21:26)
[2016-12-11] MEDS: Z GUARD REMEDY 4 OZ OINT TP SCH ×2 (13:30→21:26)
[2016-12-11 20:10] VITALS: BP 120/78
[2016-12-11] MEDS: INSULIN DETEMIR 100 UNIT/ML CARTRIDGE SQ SCH (21:26)
[2016-12-12] MEDS: ALBUTEROL FS 2.5 MG/3 ML VIAL.NEB NEB SCH ×4 (01:26→19:29)
[2016-12-12] MEDS: IPRATROPIUM NEB FS 0.5 MG/2.5 ML AMPUL.NEB NEB SCH ×4 (01:26→19:29)
[2016-12-12] MEDS: POLYVINYL ALCOHOL 15 ML BOTTLE EACHEYE SCH ×4 (05:04→23:41)
[2016-12-12] MEDS: PANTOPRAZOLE 40 MG/PACK PACK GT SCH (05:04)
[2016-12-12] MEDS: BLOOD SUGAR DIAGNOSTIC 1 EACH STRIP IN SCH ×2 (05:54→17:29)
[2016-12-12] MEDS: INSULIN LISPRO/ASPART 100 UNIT/ML CARTRIDGE SQ PRN (05:54)
[2016-12-12 07:55] VITALS: BP 106/69
[2016-12-12] MEDS: ASCORBIC ACID 500 MG TABLET GT SCH ×2 (08:03→16:18)
[2016-12-12] MEDS: POTASSIUM CHLORIDE 20 MEQ POWDER PACKET GT SCH (08:03)
[2016-12-12] MEDS: ISONIAZID (300 MG) 300 MG TABLET GT SCH (08:03)
[2016-12-12] MEDS: MVI/MINERALS LIQUID (CEROVITE) GT SCH (08:03)
[2016-12-12] MEDS: FERROUS SULFATE - FOR SA ONLY 330 MG/7.5 ML UDC GT SCH ×3 (08:03→16:18)
[2016-12-12] MEDS: PYRIDOXINE HCL 50 MG TABLET GT SCH (08:03)
[2016-12-12] MEDS: DOCUSATE SODIUM LIQ 100 MG/10 ML UDC GT SCH ×2 (08:03→16:18)
[2016-12-12] MEDS: GLYCOPYRROLATE 1 MG TABLET GT SCH ×2 (08:03→16:18)
[2016-12-12] MEDS: BACLOFEN (10 MG) 10 MG TABLET GT SCH ×3 (08:03→16:18)
[2016-12-12] MEDS: LEVETIRACETAM SOL (5 ML) 100 MG/ML UDC GT SCH ×2 (08:03→21:06)
[2016-12-12] MEDS: HYDROGEN PEROXIDE 480 ML BOTTLE TP SCH ×2 (08:04→21:06)
[2016-12-12] MEDS: Z GUARD REMEDY 4 OZ OINT TP SCH ×2 (08:04→21:06)
--- NOTE | 2016-12-12 10:09 | NUR ---
RECEIVED PATIENT ON APPROPRIATE SETTINGS. PT IS AWAKE BUT DOES NOT RESPOND TO COMMENDS. NO DISTRESS NOTED. CUFF HAS BEEN CHECKED AND FILLED WITH AIR. EXTRA TRACHE AND AMBUBAG ARE BY BEDSIDE. VENT IS PLUGGED INTO RED OUTLET. NICOLE KHANP Addendum: 12/12/16 at 1010 by BARI CARLTON RT Amended: Links added.
[2016-12-12] MEDS ORDERED: DIATR MEGLU/DIATRIZOATE SODIUM 30 ML BOTTLE (GASTROGRAPHIN) ONE (12:01)
--- NOTE | 2016-12-12 18:46 | NUR ---
Patient's GT was pulled out accidentally. Received an order for GT re-insertion and do start KUB for GT placement. GT was re-inserted and start KUB was done . and GT Feeding re-started after the placement was confirmed.
[2016-12-12 19:53] VITALS: BP 95/65
[2016-12-12] MEDS: INSULIN DETEMIR 100 UNIT/ML CARTRIDGE SQ SCH (21:06)
[2016-12-13] MEDS: ALBUTEROL FS 2.5 MG/3 ML VIAL.NEB NEB SCH ×4 (01:14→19:32)
[2016-12-13] MEDS: IPRATROPIUM NEB FS 0.5 MG/2.5 ML AMPUL.NEB NEB SCH ×4 (01:14→19:32)
[2016-12-13] MEDS: BLOOD SUGAR DIAGNOSTIC 1 EACH STRIP IN SCH ×2 (05:52→18:42)
[2016-12-13] MEDS: PANTOPRAZOLE 40 MG/PACK PACK GT SCH (05:52)
[2016-12-13] MEDS: POLYVINYL ALCOHOL 15 ML BOTTLE EACHEYE SCH ×4 (05:52→23:13)
[2016-12-13 07:44] LABS: ALBUMIN 3.4 g/dL (3.4-5.0); BILIRUBIN,TOTAL 0.2 mg/dL (0.2-1.0); TOTAL PROTEIN, SERUM 8.1 g/dL (6.4-8.2)
[2016-12-13 08:00] VITALS: BP 105/70
[2016-12-13] MEDS: DOCUSATE SODIUM LIQ 100 MG/10 ML UDC GT SCH ×2 (08:27→17:08)
[2016-12-13] MEDS: FERROUS SULFATE - FOR SA ONLY 330 MG/7.5 ML UDC GT SCH ×3 (08:29→17:08)
[2016-12-13] MEDS: GLYCOPYRROLATE 1 MG TABLET GT SCH ×2 (08:34→17:08)
[2016-12-13] MEDS: ISONIAZID (300 MG) 300 MG TABLET GT SCH (08:34)
[2016-12-13] MEDS: POTASSIUM CHLORIDE 20 MEQ POWDER PACKET GT SCH (08:35)
[2016-12-13] MEDS: LEVETIRACETAM SOL (5 ML) 100 MG/ML UDC GT SCH ×2 (08:35→21:00)
[2016-12-13] MEDS: BACLOFEN (10 MG) 10 MG TABLET GT SCH ×3 (08:37→17:08)
[2016-12-13] MEDS: ASCORBIC ACID 500 MG TABLET GT SCH ×2 (08:37→17:08)
[2016-12-13] MEDS: PYRIDOXINE HCL 50 MG TABLET GT SCH (08:37)
[2016-12-13] MEDS: MVI/MINERALS LIQUID (CEROVITE) GT SCH (08:37)
[2016-12-13] MEDS: Z GUARD REMEDY 4 OZ OINT TP SCH ×2 (09:00→21:00)
[2016-12-13] MEDS: HYDROGEN PEROXIDE 480 ML BOTTLE TP SCH ×2 (09:00→21:00)
--- NOTE | 2016-12-13 11:57 | NUR ---
Seen by Dr. Alvarez. Relayed LFT result to him. No new order.
[2016-12-13] MEDS: INSULIN LISPRO/ASPART 100 UNIT/ML CARTRIDGE SQ PRN (18:43)
[2016-12-13 19:44] VITALS: BP 113/70
[2016-12-13] MEDS: INSULIN DETEMIR 100 UNIT/ML CARTRIDGE SQ SCH (21:00)
[2016-12-14] MEDS: ALBUTEROL FS 2.5 MG/3 ML VIAL.NEB NEB SCH ×4 (02:10→19:19)
[2016-12-14] MEDS: IPRATROPIUM NEB FS 0.5 MG/2.5 ML AMPUL.NEB NEB SCH ×4 (02:10→19:19)
[2016-12-14] MEDS: POLYVINYL ALCOHOL 15 ML BOTTLE EACHEYE SCH ×3 (05:11→18:33)
[2016-12-14] MEDS: BLOOD SUGAR DIAGNOSTIC 1 EACH STRIP IN SCH ×2 (05:11→18:33)
[2016-12-14] MEDS: PANTOPRAZOLE 40 MG/PACK PACK GT SCH (05:11)
[2016-12-14] MEDS: GLYTROL 1,000 ML BAG GT PRN (05:11)
[2016-12-14 08:00] VITALS: BP 102/69
[2016-12-14] MEDS: MVI/MINERALS LIQUID (CEROVITE) GT SCH (08:26)
[2016-12-14] MEDS: LEVETIRACETAM SOL (5 ML) 100 MG/ML UDC GT SCH ×2 (08:26→20:50)
[2016-12-14] MEDS: GLYCOPYRROLATE 1 MG TABLET GT SCH ×2 (08:26→16:56)
[2016-12-14] MEDS: POTASSIUM CHLORIDE 20 MEQ POWDER PACKET GT SCH (08:26)
[2016-12-14] MEDS: BACLOFEN (10 MG) 10 MG TABLET GT SCH ×3 (08:26→16:56)
[2016-12-14] MEDS: DOCUSATE SODIUM LIQ 100 MG/10 ML UDC GT SCH ×2 (08:26→16:56)
[2016-12-14] MEDS: FERROUS SULFATE - FOR SA ONLY 330 MG/7.5 ML UDC GT SCH ×3 (08:26→16:56)
[2016-12-14] MEDS: ISONIAZID (300 MG) 300 MG TABLET GT SCH (08:26)
[2016-12-14] MEDS: PYRIDOXINE HCL 50 MG TABLET GT SCH (08:27)
[2016-12-14] MEDS: Z GUARD REMEDY 4 OZ OINT TP SCH ×2 (08:27→20:50)
[2016-12-14] MEDS: HYDROGEN PEROXIDE 480 ML BOTTLE TP SCH ×2 (08:27→20:50)
[2016-12-14] MEDS: ASCORBIC ACID 500 MG TABLET GT SCH ×2 (08:27→16:56)
--- NOTE | 2016-12-14 14:54 | NUR ---
Informed resident's sister that hairdresser was coming tomorrow. Sister stated that she wants a haircut for resident.
[2016-12-14] MEDS: INSULIN LISPRO/ASPART 100 UNIT/ML CARTRIDGE SQ PRN (18:33)
[2016-12-14 19:52] VITALS: BP 103/66
[2016-12-14] MEDS: INSULIN DETEMIR 100 UNIT/ML CARTRIDGE SQ SCH (22:46)
[2016-12-15] MEDS: POLYVINYL ALCOHOL 15 ML BOTTLE EACHEYE SCH ×5 (00:12→23:06)
[2016-12-15] MEDS: ALBUTEROL FS 2.5 MG/3 ML VIAL.NEB NEB SCH ×5 (01:20→20:06)
[2016-12-15] MEDS: IPRATROPIUM NEB FS 0.5 MG/2.5 ML AMPUL.NEB NEB SCH ×5 (01:20→20:06)
--- NOTE | 2016-12-15 06:00 | NUR ---
CONFIDENTIAL INVESTIGATOR/NOTES BLOOD SUGAR 128 NO INSULIN GIVEN , NO SIGNS OF HYPO GLYCEMIA NOTED./
[2016-12-15] MEDS: GLYTROL 1,000 ML BAG GT PRN (06:18)
[2016-12-15] MEDS: PANTOPRAZOLE 40 MG/PACK PACK GT SCH (06:18)
[2016-12-15] MEDS: BLOOD SUGAR DIAGNOSTIC 1 EACH STRIP IN SCH ×2 (06:43→18:06)
[2016-12-15 07:45] VITALS: BP 106/66
[2016-12-15] MEDS: PYRIDOXINE HCL 50 MG TABLET GT SCH (09:41)
[2016-12-15] MEDS: FERROUS SULFATE - FOR SA ONLY 330 MG/7.5 ML UDC GT SCH ×3 (09:41→17:00)
[2016-12-15] MEDS: BACLOFEN (10 MG) 10 MG TABLET GT SCH ×3 (09:41→17:00)
[2016-12-15] MEDS: LEVETIRACETAM SOL (5 ML) 100 MG/ML UDC GT SCH ×2 (09:41→20:24)
[2016-12-15] MEDS: DOCUSATE SODIUM LIQ 100 MG/10 ML UDC GT SCH ×2 (09:41→17:00)
[2016-12-15] MEDS: MVI/MINERALS LIQUID (CEROVITE) GT SCH (09:41)
[2016-12-15] MEDS: ASCORBIC ACID 500 MG TABLET GT SCH ×2 (09:41→17:00)
[2016-12-15] MEDS: ISONIAZID (300 MG) 300 MG TABLET GT SCH (09:41)
[2016-12-15] MEDS: GLYCOPYRROLATE 1 MG TABLET GT SCH ×2 (09:41→17:00)
[2016-12-15] MEDS: HYDROGEN PEROXIDE 480 ML BOTTLE TP SCH ×2 (09:50→20:25)
[2016-12-15] MEDS: Z GUARD REMEDY 4 OZ OINT TP SCH ×2 (09:50→20:25)
[2016-12-15] MEDS: POTASSIUM CHLORIDE 20 MEQ POWDER PACKET GT SCH (09:50)
[2016-12-15] MEDS: INSULIN LISPRO/ASPART 100 UNIT/ML CARTRIDGE SQ PRN (18:06)
[2016-12-15 20:01] VITALS: BP 118/77
[2016-12-15] MEDS: POLYETHYLENE GLYCOL 3350 17 GM POWD.PACK GT PRN (20:25)
[2016-12-15] MEDS: INSULIN DETEMIR 100 UNIT/ML CARTRIDGE SQ SCH (21:21)
[2016-12-16] MEDS: ALBUTEROL FS 2.5 MG/3 ML VIAL.NEB NEB SCH ×4 (01:01→20:16)
[2016-12-16] MEDS: IPRATROPIUM NEB FS 0.5 MG/2.5 ML AMPUL.NEB NEB SCH ×4 (01:01→20:16)
[2016-12-16] MEDS: PANTOPRAZOLE 40 MG/PACK PACK GT SCH (05:24)
[2016-12-16] MEDS: POLYVINYL ALCOHOL 15 ML BOTTLE EACHEYE SCH ×3 (05:24→17:39)
[2016-12-16] MEDS: GLYTROL 1,000 ML BAG GT PRN (05:25)
[2016-12-16] MEDS: INSULIN LISPRO/ASPART 100 UNIT/ML CARTRIDGE SQ PRN (05:27)
[2016-12-16] MEDS: BLOOD SUGAR DIAGNOSTIC 1 EACH STRIP IN SCH ×2 (05:27→17:39)
[2016-12-16 08:01] VITALS: BP 96/57
[2016-12-16] MEDS: DOCUSATE SODIUM LIQ 100 MG/10 ML UDC GT SCH ×2 (08:39→16:20)
[2016-12-16] MEDS: FERROUS SULFATE - FOR SA ONLY 330 MG/7.5 ML UDC GT SCH ×3 (08:39→16:20)
[2016-12-16] MEDS: GLYCOPYRROLATE 1 MG TABLET GT SCH ×2 (08:39→16:20)
[2016-12-16] MEDS: ISONIAZID (300 MG) 300 MG TABLET GT SCH (08:39)
[2016-12-16] MEDS: LEVETIRACETAM SOL (5 ML) 100 MG/ML UDC GT SCH ×2 (08:39→21:46)
[2016-12-16] MEDS: POTASSIUM CHLORIDE 20 MEQ POWDER PACKET GT SCH (08:40)
[2016-12-16] MEDS: ASCORBIC ACID 500 MG TABLET GT SCH ×2 (08:40→16:20)
[2016-12-16] MEDS: HYDROGEN PEROXIDE 480 ML BOTTLE TP SCH ×2 (08:40→21:46)
[2016-12-16] MEDS: BACLOFEN (10 MG) 10 MG TABLET GT SCH ×3 (08:40→16:20)
[2016-12-16] MEDS: PYRIDOXINE HCL 50 MG TABLET GT SCH (08:40)
[2016-12-16] MEDS: MVI/MINERALS LIQUID (CEROVITE) GT SCH (08:40)
[2016-12-16] MEDS: Z GUARD REMEDY 4 OZ OINT TP SCH ×2 (08:40→21:46)
--- NOTE | 2016-12-16 11:36 | NUR ---
Sent referral for salesperson handbags to see the resident. Informed by Fly from the wound center that Dr. Hendricks is back on Tuesday. Charge nurse informed.
[2016-12-16 19:44] VITALS: BP 126/80
[2016-12-16] MEDS: INSULIN DETEMIR 100 UNIT/ML CARTRIDGE SQ SCH (21:47)
[2016-12-17] MEDS: POLYVINYL ALCOHOL 15 ML BOTTLE EACHEYE SCH ×5 (00:45→23:03)
[2016-12-17] MEDS: ALBUTEROL FS 2.5 MG/3 ML VIAL.NEB NEB SCH ×4 (02:12→20:08)
[2016-12-17] MEDS: IPRATROPIUM NEB FS 0.5 MG/2.5 ML AMPUL.NEB NEB SCH ×4 (02:12→20:08)
[2016-12-17] MEDS: GLYTROL 1,000 ML BAG GT PRN ×2 (04:47→23:42)
[2016-12-17] MEDS: INSULIN LISPRO/ASPART 100 UNIT/ML CARTRIDGE SQ PRN (05:56)
[2016-12-17] MEDS: PANTOPRAZOLE 40 MG/PACK PACK GT SCH (05:56)
[2016-12-17] MEDS: BLOOD SUGAR DIAGNOSTIC 1 EACH STRIP IN SCH ×2 (05:56→18:10)
[2016-12-17 08:00] VITALS: BP 101/66
[2016-12-17] MEDS: FERROUS SULFATE - FOR SA ONLY 330 MG/7.5 ML UDC GT SCH ×3 (08:16→17:00)
[2016-12-17] MEDS: ISONIAZID (300 MG) 300 MG TABLET GT SCH (08:16)
[2016-12-17] MEDS: GLYCOPYRROLATE 1 MG TABLET GT SCH ×2 (08:16→17:00)
[2016-12-17] MEDS: DOCUSATE SODIUM LIQ 100 MG/10 ML UDC GT SCH ×2 (08:16→17:00)
[2016-12-17] MEDS: LEVETIRACETAM SOL (5 ML) 100 MG/ML UDC GT SCH ×2 (08:17→21:06)
[2016-12-17] MEDS: PYRIDOXINE HCL 50 MG TABLET GT SCH (08:17)
[2016-12-17] MEDS: Z GUARD REMEDY 4 OZ OINT TP SCH ×2 (08:17→21:06)
[2016-12-17] MEDS: ASCORBIC ACID 500 MG TABLET GT SCH ×2 (08:17→17:00)
[2016-12-17] MEDS: POTASSIUM CHLORIDE 20 MEQ POWDER PACKET GT SCH (08:17)
[2016-12-17] MEDS: HYDROGEN PEROXIDE 480 ML BOTTLE TP SCH ×2 (08:17→21:06)
[2016-12-17] MEDS: MVI/MINERALS LIQUID (CEROVITE) GT SCH (08:17)
[2016-12-17] MEDS: BACLOFEN (10 MG) 10 MG TABLET GT SCH ×3 (08:17→17:00)
--- NOTE | 2016-12-17 09:37 | NUR ---
Charge nurse received a call from Walt Adamson from medical records ([phone] ext [phone]) asking for original date of admit. Charge nurse directed any additional questions to SW and SW will assist Mr. Adamson if necessary.
--- NOTE | 2016-12-17 18:43 | NUR ---
IDT meeting held, reviewed current orders, medication and treatment. Family unable to attend. NNO given.
[2016-12-17 19:51] VITALS: BP 119/66
[2016-12-17] MEDS: INSULIN DETEMIR 100 UNIT/ML CARTRIDGE SQ SCH (21:06)
[2016-12-18] MEDS: IPRATROPIUM NEB FS 0.5 MG/2.5 ML AMPUL.NEB NEB SCH ×4 (00:45→20:00)
[2016-12-18] MEDS: ALBUTEROL FS 2.5 MG/3 ML VIAL.NEB NEB SCH ×4 (00:45→20:00)
[2016-12-18] MEDS: POLYVINYL ALCOHOL 15 ML BOTTLE EACHEYE SCH ×4 (05:32→23:37)
[2016-12-18] MEDS: BLOOD SUGAR DIAGNOSTIC 1 EACH STRIP IN SCH ×2 (05:32→17:17)
[2016-12-18] MEDS: PANTOPRAZOLE 40 MG/PACK PACK GT SCH (05:32)
[2016-12-18 08:00] VITALS: BP 93/62
[2016-12-18] MEDS: DOCUSATE SODIUM LIQ 100 MG/10 ML UDC GT SCH ×2 (08:41→16:36)
[2016-12-18] MEDS: GLYCOPYRROLATE 1 MG TABLET GT SCH ×2 (08:41→16:36)
[2016-12-18] MEDS: POTASSIUM CHLORIDE 20 MEQ POWDER PACKET GT SCH (08:41)
[2016-12-18] MEDS: MVI/MINERALS LIQUID (CEROVITE) GT SCH (08:41)
[2016-12-18] MEDS: LEVETIRACETAM SOL (5 ML) 100 MG/ML UDC GT SCH ×2 (08:41→21:09)
[2016-12-18] MEDS: FERROUS SULFATE - FOR SA ONLY 330 MG/7.5 ML UDC GT SCH ×3 (08:41→16:36)
[2016-12-18] MEDS: BACLOFEN (10 MG) 10 MG TABLET GT SCH ×3 (08:41→16:36)
[2016-12-18] MEDS: PYRIDOXINE HCL 50 MG TABLET GT SCH (08:41)
[2016-12-18] MEDS: ASCORBIC ACID 500 MG TABLET GT SCH ×2 (08:41→16:36)
[2016-12-18] MEDS: ISONIAZID (300 MG) 300 MG TABLET GT SCH (08:41)
[2016-12-18] MEDS: Z GUARD REMEDY 4 OZ OINT TP SCH ×2 (09:00→21:09)
[2016-12-18] MEDS: HYDROGEN PEROXIDE 480 ML BOTTLE TP SCH ×2 (09:00→21:09)
[2016-12-18 20:03] VITALS: BP 114/71
[2016-12-18] MEDS: INSULIN DETEMIR 100 UNIT/ML CARTRIDGE SQ SCH (21:10)
[2016-12-19] MEDS: IPRATROPIUM NEB FS 0.5 MG/2.5 ML AMPUL.NEB NEB SCH ×4 (01:00→20:27)
[2016-12-19] MEDS: ALBUTEROL FS 2.5 MG/3 ML VIAL.NEB NEB SCH ×4 (01:00→20:27)
[2016-12-19] MEDS: GLYTROL 1,000 ML BAG GT PRN (05:18)
[2016-12-19] MEDS: BLOOD SUGAR DIAGNOSTIC 1 EACH STRIP IN SCH (05:18)
[2016-12-19] MEDS: PANTOPRAZOLE 40 MG/PACK PACK GT SCH (05:18)
[2016-12-19] MEDS: POLYVINYL ALCOHOL 15 ML BOTTLE EACHEYE SCH ×3 (05:18→23:49)
[2016-12-19 07:33] VITALS: BP 127/72
[2016-12-19] MEDS: ISONIAZID (300 MG) 300 MG TABLET GT SCH (09:05)
[2016-12-19] MEDS: GLYCOPYRROLATE 1 MG TABLET GT SCH ×2 (09:05→17:13)
[2016-12-19] MEDS: DOCUSATE SODIUM LIQ 100 MG/10 ML UDC GT SCH ×2 (09:05→17:14)
[2016-12-19] MEDS: FERROUS SULFATE - FOR SA ONLY 330 MG/7.5 ML UDC GT SCH ×3 (09:05→17:13)
[2016-12-19] MEDS: Z GUARD REMEDY 4 OZ OINT TP SCH ×2 (09:07→20:50)
[2016-12-19] MEDS: MVI/MINERALS LIQUID (CEROVITE) GT SCH (09:07)
[2016-12-19] MEDS: LEVETIRACETAM SOL (5 ML) 100 MG/ML UDC GT SCH ×2 (09:07→20:49)
[2016-12-19] MEDS: PYRIDOXINE HCL 50 MG TABLET GT SCH (09:07)
[2016-12-19] MEDS: POTASSIUM CHLORIDE 20 MEQ POWDER PACKET GT SCH (09:07)
[2016-12-19] MEDS: BACLOFEN (10 MG) 10 MG TABLET GT SCH ×3 (09:07→17:13)
[2016-12-19] MEDS: ASCORBIC ACID 500 MG TABLET GT SCH ×2 (09:07→17:13)
[2016-12-19] MEDS: HYDROGEN PEROXIDE 480 ML BOTTLE TP SCH ×2 (09:07→20:50)
[2016-12-19 19:58] VITALS: BP 116/73
[2016-12-19] MEDS: INSULIN DETEMIR 100 UNIT/ML CARTRIDGE SQ SCH (21:07)
[2016-12-20] MEDS: ALBUTEROL FS 2.5 MG/3 ML VIAL.NEB NEB SCH ×4 (01:02→19:30)
[2016-12-20] MEDS: IPRATROPIUM NEB FS 0.5 MG/2.5 ML AMPUL.NEB NEB SCH ×4 (01:02→19:30)
[2016-12-20] MEDS: BLOOD SUGAR DIAGNOSTIC 1 EACH STRIP IN SCH ×2 (05:36→17:34)
[2016-12-20] MEDS: PANTOPRAZOLE 40 MG/PACK PACK GT SCH (05:37)
[2016-12-20] MEDS: POLYVINYL ALCOHOL 15 ML BOTTLE EACHEYE SCH ×3 (05:37→17:34)
[2016-12-20 07:54] VITALS: BP 113/73
[2016-12-20] MEDS: ISONIAZID (300 MG) 300 MG TABLET GT SCH (09:52)
[2016-12-20] MEDS: GLYCOPYRROLATE 1 MG TABLET GT SCH ×2 (09:52→17:34)
[2016-12-20] MEDS: DOCUSATE SODIUM LIQ 100 MG/10 ML UDC GT SCH ×2 (09:52→17:34)
[2016-12-20] MEDS: FERROUS SULFATE - FOR SA ONLY 330 MG/7.5 ML UDC GT SCH ×3 (09:52→17:34)
[2016-12-20] MEDS: ASCORBIC ACID 500 MG TABLET GT SCH ×2 (09:52→17:34)
[2016-12-20] MEDS: LEVETIRACETAM SOL (5 ML) 100 MG/ML UDC GT SCH ×2 (09:52→21:22)
[2016-12-20] MEDS: PYRIDOXINE HCL 50 MG TABLET GT SCH (09:52)
[2016-12-20] MEDS: BACLOFEN (10 MG) 10 MG TABLET GT SCH ×3 (09:52→17:34)
[2016-12-20] MEDS: POTASSIUM CHLORIDE 20 MEQ POWDER PACKET GT SCH (09:52)
[2016-12-20] MEDS: MVI/MINERALS LIQUID (CEROVITE) GT SCH (09:52)
[2016-12-20] MEDS: HYDROGEN PEROXIDE 480 ML BOTTLE TP SCH ×2 (10:45→21:22)
[2016-12-20] MEDS: Z GUARD REMEDY 4 OZ OINT TP SCH ×2 (10:45→21:22)
[2016-12-20 20:07] VITALS: BP 125/74
[2016-12-20] MEDS: INSULIN DETEMIR 100 UNIT/ML CARTRIDGE SQ SCH (21:23)
[2016-12-21] MEDS: ALBUTEROL FS 2.5 MG/3 ML VIAL.NEB NEB SCH ×4 (00:37→19:44)
[2016-12-21] MEDS: IPRATROPIUM NEB FS 0.5 MG/2.5 ML AMPUL.NEB NEB SCH ×4 (00:37→19:44)
[2016-12-21] MEDS: BLOOD SUGAR DIAGNOSTIC 1 EACH STRIP IN SCH ×2 (06:08→17:32)
[2016-12-21] MEDS: PANTOPRAZOLE 40 MG/PACK PACK GT SCH (06:08)
[2016-12-21] MEDS: POLYVINYL ALCOHOL 15 ML BOTTLE EACHEYE SCH ×4 (06:08→17:32)
[2016-12-21 07:43] VITALS: BP 120/69
[2016-12-21] MEDS: GLYCOPYRROLATE 1 MG TABLET GT SCH ×2 (08:52→17:32)
[2016-12-21] MEDS: MVI/MINERALS LIQUID (CEROVITE) GT SCH (08:52)
[2016-12-21] MEDS: DOCUSATE SODIUM LIQ 100 MG/10 ML UDC GT SCH ×2 (08:52→17:31)
[2016-12-21] MEDS: ASCORBIC ACID 500 MG TABLET GT SCH ×2 (08:52→17:32)
[2016-12-21] MEDS: BACLOFEN (10 MG) 10 MG TABLET GT SCH ×3 (08:52→17:32)
[2016-12-21] MEDS: ISONIAZID (300 MG) 300 MG TABLET GT SCH (08:52)
[2016-12-21] MEDS: FERROUS SULFATE - FOR SA ONLY 330 MG/7.5 ML UDC GT SCH ×3 (08:52→17:32)
[2016-12-21] MEDS: PYRIDOXINE HCL 50 MG TABLET GT SCH (08:52)
[2016-12-21] MEDS: POTASSIUM CHLORIDE 20 MEQ POWDER PACKET GT SCH (08:52)
[2016-12-21] MEDS: LEVETIRACETAM SOL (5 ML) 100 MG/ML UDC GT SCH ×2 (08:52→21:07)
[2016-12-21] MEDS: Z GUARD REMEDY 4 OZ OINT TP SCH ×2 (11:45→21:07)
[2016-12-21] MEDS: HYDROGEN PEROXIDE 480 ML BOTTLE TP SCH ×2 (11:45→21:07)
--- NOTE | 2016-12-21 14:45 | NUR ---
Late Entry for 12/20/16 - Pt head circumference measured with 57 cm.
[2016-12-21 19:44] VITALS: BP 134/88
[2016-12-21] MEDS: INSULIN DETEMIR 100 UNIT/ML CARTRIDGE SQ SCH (21:07)
[2016-12-22] MEDS: IPRATROPIUM NEB FS 0.5 MG/2.5 ML AMPUL.NEB NEB SCH ×4 (01:54→20:01)
[2016-12-22] MEDS: ALBUTEROL FS 2.5 MG/3 ML VIAL.NEB NEB SCH ×4 (02:07→20:01)
[2016-12-22] MEDS: POLYVINYL ALCOHOL 15 ML BOTTLE EACHEYE SCH ×5 (06:03→23:51)
[2016-12-22] MEDS: PANTOPRAZOLE 40 MG/PACK PACK GT SCH (06:03)
[2016-12-22] MEDS: BLOOD SUGAR DIAGNOSTIC 1 EACH STRIP IN SCH ×2 (06:03→17:07)
[2016-12-22 07:35] VITALS: BP 132/65
[2016-12-22] MEDS: BACLOFEN (10 MG) 10 MG TABLET GT SCH ×3 (09:45→17:06)
[2016-12-22] MEDS: DOCUSATE SODIUM LIQ 100 MG/10 ML UDC GT SCH ×2 (09:45→17:06)
[2016-12-22] MEDS: GLYCOPYRROLATE 1 MG TABLET GT SCH ×2 (09:45→17:06)
[2016-12-22] MEDS: PYRIDOXINE HCL 50 MG TABLET GT SCH (09:45)
[2016-12-22] MEDS: LEVETIRACETAM SOL (5 ML) 100 MG/ML UDC GT SCH ×2 (09:45→20:48)
[2016-12-22] MEDS: HYDROGEN PEROXIDE 480 ML BOTTLE TP SCH ×2 (09:45→21:43)
[2016-12-22] MEDS: Z GUARD REMEDY 4 OZ OINT TP SCH ×2 (09:45→21:43)
[2016-12-22] MEDS: MVI/MINERALS LIQUID (CEROVITE) GT SCH (09:45)
[2016-12-22] MEDS: FERROUS SULFATE - FOR SA ONLY 330 MG/7.5 ML UDC GT SCH ×3 (09:45→17:06)
[2016-12-22] MEDS: POTASSIUM CHLORIDE 20 MEQ POWDER PACKET GT SCH (09:45)
[2016-12-22] MEDS: ASCORBIC ACID 500 MG TABLET GT SCH ×2 (09:45→17:07)
[2016-12-22] MEDS: ISONIAZID (300 MG) 300 MG TABLET GT SCH (09:45)
[2016-12-22] MEDS: INSULIN LISPRO/ASPART 100 UNIT/ML CARTRIDGE SQ PRN (17:16)
[2016-12-22] MEDS: INSULIN DETEMIR 100 UNIT/ML CARTRIDGE SQ SCH (21:44)
[2016-12-22] MEDS: GLYTROL 1,000 ML BAG GT PRN (23:51)
[2016-12-23 00:12] VITALS: BP 114/73
[2016-12-23] MEDS: IPRATROPIUM NEB FS 0.5 MG/2.5 ML AMPUL.NEB NEB SCH ×4 (00:40→19:58)
[2016-12-23] MEDS: ALBUTEROL FS 2.5 MG/3 ML VIAL.NEB NEB SCH ×4 (00:40→19:58)
[2016-12-23] MEDS: POLYVINYL ALCOHOL 15 ML BOTTLE EACHEYE SCH ×3 (05:41→16:51)
[2016-12-23] MEDS: INSULIN LISPRO/ASPART 100 UNIT/ML CARTRIDGE SQ PRN (05:41)
[2016-12-23] MEDS: PANTOPRAZOLE 40 MG/PACK PACK GT SCH (05:41)
[2016-12-23] MEDS: BLOOD SUGAR DIAGNOSTIC 1 EACH STRIP IN SCH ×2 (05:41→18:06)
[2016-12-23 07:26] VITALS: BP 123/73
[2016-12-23] MEDS: PYRIDOXINE HCL 50 MG TABLET GT SCH (08:12)
[2016-12-23] MEDS: LEVETIRACETAM SOL (5 ML) 100 MG/ML UDC GT SCH ×2 (08:12→21:02)
[2016-12-23] MEDS: HYDROGEN PEROXIDE 480 ML BOTTLE TP SCH ×2 (08:12→21:02)
[2016-12-23] MEDS: GLYCOPYRROLATE 1 MG TABLET GT SCH ×2 (08:12→16:51)
[2016-12-23] MEDS: POTASSIUM CHLORIDE 20 MEQ POWDER PACKET GT SCH (08:12)
[2016-12-23] MEDS: ISONIAZID (300 MG) 300 MG TABLET GT SCH (08:12)
[2016-12-23] MEDS: FERROUS SULFATE - FOR SA ONLY 330 MG/7.5 ML UDC GT SCH ×3 (08:12→16:51)
[2016-12-23] MEDS: DOCUSATE SODIUM LIQ 100 MG/10 ML UDC GT SCH ×2 (08:12→16:51)
[2016-12-23] MEDS: ASCORBIC ACID 500 MG TABLET GT SCH ×2 (08:12→16:51)
[2016-12-23] MEDS: MVI/MINERALS LIQUID (CEROVITE) GT SCH (08:12)
[2016-12-23] MEDS: Z GUARD REMEDY 4 OZ OINT TP SCH ×2 (08:12→21:02)
[2016-12-23] MEDS: BACLOFEN (10 MG) 10 MG TABLET GT SCH ×3 (08:12→16:51)
--- NOTE | 2016-12-23 18:59 | NUR ---
Head circumference 56cm.
[2016-12-23] MEDS: INSULIN DETEMIR 100 UNIT/ML CARTRIDGE SQ SCH (22:15)
[2016-12-24] MEDS: POLYVINYL ALCOHOL 15 ML BOTTLE EACHEYE SCH ×4 (00:08→17:50)
[2016-12-24] MEDS: GLYTROL 1,000 ML BAG GT PRN (01:21)
[2016-12-24 01:25] VITALS: BP 102/67
[2016-12-24] MEDS: IPRATROPIUM NEB FS 0.5 MG/2.5 ML AMPUL.NEB NEB SCH ×4 (01:30→19:49)
[2016-12-24] MEDS: ALBUTEROL FS 2.5 MG/3 ML VIAL.NEB NEB SCH ×4 (01:30→19:49)
[2016-12-24] MEDS: BLOOD SUGAR DIAGNOSTIC 1 EACH STRIP IN SCH ×2 (05:42→17:57)
[2016-12-24] MEDS: PANTOPRAZOLE 40 MG/PACK PACK GT SCH (05:42)
[2016-12-24] MEDS: INSULIN LISPRO/ASPART 100 UNIT/ML CARTRIDGE SQ PRN (05:42)
--- NOTE | 2016-12-24 07:34 | NUR ---
Social Service Section of [facility] (3rd quarter) completed. Resident non-communicative. Her sister, Tosin is involved in her care. Discharge to a lower level of care when medically appropriate. Sister feels that she will be a resident of subacute for the correction.
[2016-12-24 07:39] VITALS: BP 119/72
[2016-12-24] MEDS: ISONIAZID (300 MG) 300 MG TABLET GT SCH (09:10)
[2016-12-24] MEDS: POTASSIUM CHLORIDE 20 MEQ POWDER PACKET GT SCH (09:10)
[2016-12-24] MEDS: GLYCOPYRROLATE 1 MG TABLET GT SCH ×2 (09:10→17:50)
[2016-12-24] MEDS: FERROUS SULFATE - FOR SA ONLY 330 MG/7.5 ML UDC GT SCH ×3 (09:10→17:50)
[2016-12-24] MEDS: LEVETIRACETAM SOL (5 ML) 100 MG/ML UDC GT SCH ×2 (09:10→21:00)
[2016-12-24] MEDS: MVI/MINERALS LIQUID (CEROVITE) GT SCH (09:10)
[2016-12-24] MEDS: DOCUSATE SODIUM LIQ 100 MG/10 ML UDC GT SCH ×2 (09:10→17:50)
[2016-12-24] MEDS: BACLOFEN (10 MG) 10 MG TABLET GT SCH ×3 (09:10→17:50)
[2016-12-24] MEDS: PYRIDOXINE HCL 50 MG TABLET GT SCH (09:11)
[2016-12-24] MEDS: ASCORBIC ACID 500 MG TABLET GT SCH ×2 (09:11→17:50)
[2016-12-24] MEDS: Z GUARD REMEDY 4 OZ OINT TP SCH ×2 (15:30→21:00)
[2016-12-24] MEDS: HYDROGEN PEROXIDE 480 ML BOTTLE TP SCH ×2 (15:30→21:00)
[2016-12-24 20:13] VITALS: BP 120/75
[2016-12-24] MEDS: INSULIN DETEMIR 100 UNIT/ML CARTRIDGE SQ SCH (22:23)
[2016-12-25] MEDS: POLYVINYL ALCOHOL 15 ML BOTTLE EACHEYE SCH ×4 (00:10→17:22)
[2016-12-25] MEDS: ALBUTEROL FS 2.5 MG/3 ML VIAL.NEB NEB SCH ×4 (02:03→20:03)
[2016-12-25] MEDS: IPRATROPIUM NEB FS 0.5 MG/2.5 ML AMPUL.NEB NEB SCH ×4 (02:03→20:03)
[2016-12-25] MEDS: GLYTROL 1,000 ML BAG GT PRN (05:24)
[2016-12-25] MEDS: BLOOD SUGAR DIAGNOSTIC 1 EACH STRIP IN SCH ×2 (05:24→17:22)
[2016-12-25] MEDS: PANTOPRAZOLE 40 MG/PACK PACK GT SCH (05:24)
[2016-12-25] MEDS: INSULIN LISPRO/ASPART 100 UNIT/ML CARTRIDGE SQ PRN (05:26)
[2016-12-25 07:27] VITALS: BP 115/73
[2016-12-25] MEDS: FERROUS SULFATE - FOR SA ONLY 330 MG/7.5 ML UDC GT SCH ×3 (09:22→16:49)
[2016-12-25] MEDS: GLYCOPYRROLATE 1 MG TABLET GT SCH ×2 (09:22→16:49)
[2016-12-25] MEDS: DOCUSATE SODIUM LIQ 100 MG/10 ML UDC GT SCH ×2 (09:22→16:49)
[2016-12-25] MEDS: BACLOFEN (10 MG) 10 MG TABLET GT SCH ×3 (09:22→16:49)
[2016-12-25] MEDS: MVI/MINERALS LIQUID (CEROVITE) GT SCH (09:22)
[2016-12-25] MEDS: PYRIDOXINE HCL 50 MG TABLET GT SCH (09:22)
[2016-12-25] MEDS: POTASSIUM CHLORIDE 20 MEQ POWDER PACKET GT SCH (09:22)
[2016-12-25] MEDS: ISONIAZID (300 MG) 300 MG TABLET GT SCH (09:22)
[2016-12-25] MEDS: LEVETIRACETAM SOL (5 ML) 100 MG/ML UDC GT SCH ×2 (09:22→21:03)
[2016-12-25] MEDS: HYDROGEN PEROXIDE 480 ML BOTTLE TP SCH ×2 (09:23→21:03)
[2016-12-25] MEDS: Z GUARD REMEDY 4 OZ OINT TP SCH ×2 (09:23→21:03)
[2016-12-25] MEDS: ASCORBIC ACID 500 MG TABLET GT SCH ×2 (09:23→16:49)
[2016-12-25 19:57] VITALS: BP 117/75
[2016-12-25] MEDS: INSULIN DETEMIR 100 UNIT/ML CARTRIDGE SQ SCH (21:04)
[2016-12-26] MEDS: POLYVINYL ALCOHOL 15 ML BOTTLE EACHEYE SCH ×4 (00:24→17:18)
[2016-12-26] MEDS: GLYTROL 1,000 ML BAG GT PRN (00:25)
[2016-12-26] MEDS: ALBUTEROL FS 2.5 MG/3 ML VIAL.NEB NEB SCH ×4 (02:01→20:21)
[2016-12-26] MEDS: IPRATROPIUM NEB FS 0.5 MG/2.5 ML AMPUL.NEB NEB SCH ×4 (02:01→20:21)
[2016-12-26] MEDS: PANTOPRAZOLE 40 MG/PACK PACK GT SCH (05:25)
[2016-12-26] MEDS: BLOOD SUGAR DIAGNOSTIC 1 EACH STRIP IN SCH ×2 (05:25→17:18)
[2016-12-26 07:57] VITALS: BP 101/67
[2016-12-26] MEDS: ASCORBIC ACID 500 MG TABLET GT SCH ×2 (09:07→16:27)
[2016-12-26] MEDS: LEVETIRACETAM SOL (5 ML) 100 MG/ML UDC GT SCH ×2 (09:07→20:14)
[2016-12-26] MEDS: GLYCOPYRROLATE 1 MG TABLET GT SCH ×2 (09:07→16:27)
[2016-12-26] MEDS: ISONIAZID (300 MG) 300 MG TABLET GT SCH (09:07)
[2016-12-26] MEDS: DOCUSATE SODIUM LIQ 100 MG/10 ML UDC GT SCH ×2 (09:07→16:26)
[2016-12-26] MEDS: POTASSIUM CHLORIDE 20 MEQ POWDER PACKET GT SCH (09:07)
[2016-12-26] MEDS: FERROUS SULFATE - FOR SA ONLY 330 MG/7.5 ML UDC GT SCH ×3 (09:07→16:27)
[2016-12-26] MEDS: BACLOFEN (10 MG) 10 MG TABLET GT SCH ×3 (09:07→16:27)
[2016-12-26] MEDS: MVI/MINERALS LIQUID (CEROVITE) GT SCH (09:07)
[2016-12-26] MEDS: PYRIDOXINE HCL 50 MG TABLET GT SCH (09:07)
[2016-12-26] MEDS: HYDROGEN PEROXIDE 480 ML BOTTLE TP SCH ×2 (09:12→20:14)
[2016-12-26] MEDS: Z GUARD REMEDY 4 OZ OINT TP SCH ×2 (09:13→20:14)
[2016-12-26 19:57] VITALS: BP 123/76
[2016-12-26] MEDS: INSULIN DETEMIR 100 UNIT/ML CARTRIDGE SQ SCH (21:55)
[2016-12-27] MEDS: POLYVINYL ALCOHOL 15 ML BOTTLE EACHEYE SCH ×4 (00:26→18:17)
[2016-12-27] MEDS: GLYTROL 1,000 ML BAG GT PRN (00:48)
[2016-12-27] MEDS: IPRATROPIUM NEB FS 0.5 MG/2.5 ML AMPUL.NEB NEB SCH ×4 (01:05→20:06)
[2016-12-27] MEDS: ALBUTEROL FS 2.5 MG/3 ML VIAL.NEB NEB SCH ×4 (01:05→20:06)
[2016-12-27] MEDS: PANTOPRAZOLE 40 MG/PACK PACK GT SCH (05:37)
[2016-12-27] MEDS: BLOOD SUGAR DIAGNOSTIC 1 EACH STRIP IN SCH ×2 (05:37→18:17)
[2016-12-27 07:33] VITALS: BP 121/74
[2016-12-27] MEDS: POTASSIUM CHLORIDE 20 MEQ POWDER PACKET GT SCH (08:24)
[2016-12-27] MEDS: MVI/MINERALS LIQUID (CEROVITE) GT SCH (08:24)
[2016-12-27] MEDS: GLYCOPYRROLATE 1 MG TABLET GT SCH ×2 (08:24→17:26)
[2016-12-27] MEDS: HYDROGEN PEROXIDE 480 ML BOTTLE TP SCH ×2 (08:24→20:14)
[2016-12-27] MEDS: BACLOFEN (10 MG) 10 MG TABLET GT SCH ×3 (08:24→17:26)
[2016-12-27] MEDS: ISONIAZID (300 MG) 300 MG TABLET GT SCH (08:24)
[2016-12-27] MEDS: LEVETIRACETAM SOL (5 ML) 100 MG/ML UDC GT SCH ×2 (08:24→20:14)
[2016-12-27] MEDS: FERROUS SULFATE - FOR SA ONLY 330 MG/7.5 ML UDC GT SCH ×3 (08:24→17:26)
[2016-12-27] MEDS: PYRIDOXINE HCL 50 MG TABLET GT SCH (08:24)
[2016-12-27] MEDS: ASCORBIC ACID 500 MG TABLET GT SCH ×2 (08:24→17:26)
[2016-12-27] MEDS: Z GUARD REMEDY 4 OZ OINT TP SCH ×2 (08:24→20:14)
[2016-12-27] MEDS: DOCUSATE SODIUM LIQ 100 MG/10 ML UDC GT SCH ×2 (08:24→17:26)
[2016-12-27] MEDS: INSULIN LISPRO/ASPART 100 UNIT/ML CARTRIDGE SQ PRN (18:17)
[2016-12-27 19:46] VITALS: BP 113/67
[2016-12-27] MEDS: INSULIN DETEMIR 100 UNIT/ML CARTRIDGE SQ SCH (22:24)
[2016-12-28] MEDS: POLYVINYL ALCOHOL 15 ML BOTTLE EACHEYE SCH ×4 (00:04→17:37)
[2016-12-28] MEDS: IPRATROPIUM NEB FS 0.5 MG/2.5 ML AMPUL.NEB NEB SCH ×4 (01:49→19:30)
[2016-12-28] MEDS: ALBUTEROL FS 2.5 MG/3 ML VIAL.NEB NEB SCH ×4 (01:49→19:30)
[2016-12-28] MEDS: GLYTROL 1,000 ML BAG GT PRN (03:17)
[2016-12-28] MEDS: BLOOD SUGAR DIAGNOSTIC 1 EACH STRIP IN SCH ×2 (05:20→18:35)
[2016-12-28] MEDS: PANTOPRAZOLE 40 MG/PACK PACK GT SCH (05:20)
[2016-12-28 07:49] VITALS: BP 132/79
[2016-12-28] MEDS: POTASSIUM CHLORIDE 20 MEQ POWDER PACKET GT SCH (09:00)
[2016-12-28] MEDS: FERROUS SULFATE - FOR SA ONLY 330 MG/7.5 ML UDC GT SCH ×3 (09:00→17:37)
[2016-12-28] MEDS: ISONIAZID (300 MG) 300 MG TABLET GT SCH (09:00)
[2016-12-28] MEDS: DOCUSATE SODIUM LIQ 100 MG/10 ML UDC GT SCH ×2 (09:00→17:37)
[2016-12-28] MEDS: MVI/MINERALS LIQUID (CEROVITE) GT SCH (09:00)
[2016-12-28] MEDS: ASCORBIC ACID 500 MG TABLET GT SCH ×2 (09:00→17:37)
[2016-12-28] MEDS: LEVETIRACETAM SOL (5 ML) 100 MG/ML UDC GT SCH ×2 (09:00→20:11)
[2016-12-28] MEDS: GLYCOPYRROLATE 1 MG TABLET GT SCH ×2 (09:00→17:37)
[2016-12-28] MEDS: HYDROGEN PEROXIDE 480 ML BOTTLE TP SCH ×2 (09:00→20:11)
[2016-12-28] MEDS: PYRIDOXINE HCL 50 MG TABLET GT SCH (09:00)
[2016-12-28] MEDS: Z GUARD REMEDY 4 OZ OINT TP SCH ×2 (09:00→20:11)
[2016-12-28] MEDS: BACLOFEN (10 MG) 10 MG TABLET GT SCH ×3 (09:00→17:37)
[2016-12-28] MEDS: INSULIN LISPRO/ASPART 100 UNIT/ML CARTRIDGE SQ PRN (18:36)
[2016-12-28 19:41] VITALS: BP 117/64
[2016-12-28] MEDS: INSULIN DETEMIR 100 UNIT/ML CARTRIDGE SQ SCH (21:37)
[2016-12-29] MEDS: POLYVINYL ALCOHOL 15 ML BOTTLE EACHEYE SCH ×4 (00:05→17:41)
[2016-12-29] MEDS: GLYTROL 1,000 ML BAG GT PRN ×2 (00:06→22:50)
[2016-12-29] MEDS: ALBUTEROL FS 2.5 MG/3 ML VIAL.NEB NEB SCH ×4 (01:35→19:09)
[2016-12-29] MEDS: IPRATROPIUM NEB FS 0.5 MG/2.5 ML AMPUL.NEB NEB SCH ×4 (01:35→19:09)
[2016-12-29] MEDS: BLOOD SUGAR DIAGNOSTIC 1 EACH STRIP IN SCH ×2 (05:45→17:41)
[2016-12-29] MEDS: PANTOPRAZOLE 40 MG/PACK PACK GT SCH (05:45)
[2016-12-29 07:47] VITALS: BP 146/74
[2016-12-29] MEDS: GLYCOPYRROLATE 1 MG TABLET GT SCH ×2 (08:54→16:53)
[2016-12-29] MEDS: ASCORBIC ACID 500 MG TABLET GT SCH ×2 (08:54→16:53)
[2016-12-29] MEDS: LEVETIRACETAM SOL (5 ML) 100 MG/ML UDC GT SCH ×2 (08:54→21:18)
[2016-12-29] MEDS: POTASSIUM CHLORIDE 20 MEQ POWDER PACKET GT SCH (08:54)
[2016-12-29] MEDS: ISONIAZID (300 MG) 300 MG TABLET GT SCH (08:54)
[2016-12-29] MEDS: MVI/MINERALS LIQUID (CEROVITE) GT SCH (08:54)
[2016-12-29] MEDS: DOCUSATE SODIUM LIQ 100 MG/10 ML UDC GT SCH ×2 (08:54→16:53)
[2016-12-29] MEDS: Z GUARD REMEDY 4 OZ OINT TP SCH ×2 (08:54→21:18)
[2016-12-29] MEDS: HYDROGEN PEROXIDE 480 ML BOTTLE TP SCH ×2 (08:54→21:18)
[2016-12-29] MEDS: FERROUS SULFATE - FOR SA ONLY 330 MG/7.5 ML UDC GT SCH ×3 (08:54→16:53)
[2016-12-29] MEDS: PYRIDOXINE HCL 50 MG TABLET GT SCH (08:54)
[2016-12-29] MEDS: BACLOFEN (10 MG) 10 MG TABLET GT SCH ×3 (08:54→16:53)
[2016-12-29 20:14] VITALS: BP 114/70
[2016-12-29] MEDS: INSULIN DETEMIR 100 UNIT/ML CARTRIDGE SQ SCH (21:18)
[2016-12-30] MEDS: POLYVINYL ALCOHOL 15 ML BOTTLE EACHEYE SCH ×4 (00:02→17:33)
[2016-12-30] MEDS: ALBUTEROL FS 2.5 MG/3 ML VIAL.NEB NEB SCH ×4 (02:29→19:03)
[2016-12-30] MEDS: IPRATROPIUM NEB FS 0.5 MG/2.5 ML AMPUL.NEB NEB SCH ×4 (02:29→19:03)
[2016-12-30] MEDS: INSULIN LISPRO/ASPART 100 UNIT/ML CARTRIDGE SQ PRN (05:32)
[2016-12-30] MEDS: BLOOD SUGAR DIAGNOSTIC 1 EACH STRIP IN SCH ×2 (05:32→17:33)
[2016-12-30] MEDS: PANTOPRAZOLE 40 MG/PACK PACK GT SCH (05:32)
[2016-12-30 07:40] VITALS: BP 99/66
[2016-12-30] MEDS: ISONIAZID (300 MG) 300 MG TABLET GT SCH (08:31)
[2016-12-30] MEDS: DOCUSATE SODIUM LIQ 100 MG/10 ML UDC GT SCH ×2 (08:31→17:33)
[2016-12-30] MEDS: BACLOFEN (10 MG) 10 MG TABLET GT SCH ×3 (08:31→17:33)
[2016-12-30] MEDS: FERROUS SULFATE - FOR SA ONLY 330 MG/7.5 ML UDC GT SCH ×3 (08:31→17:33)
[2016-12-30] MEDS: POTASSIUM CHLORIDE 20 MEQ POWDER PACKET GT SCH (08:31)
[2016-12-30] MEDS: MVI/MINERALS LIQUID (CEROVITE) GT SCH (08:31)
[2016-12-30] MEDS: PYRIDOXINE HCL 50 MG TABLET GT SCH (08:31)
[2016-12-30] MEDS: ASCORBIC ACID 500 MG TABLET GT SCH ×2 (08:31→17:33)
[2016-12-30] MEDS: LEVETIRACETAM SOL (5 ML) 100 MG/ML UDC GT SCH ×2 (08:31→21:21)
[2016-12-30] MEDS: GLYCOPYRROLATE 1 MG TABLET GT SCH ×2 (08:31→17:33)
[2016-12-30] MEDS: Z GUARD REMEDY 4 OZ OINT TP SCH ×2 (08:32→21:21)
[2016-12-30] MEDS: HYDROGEN PEROXIDE 480 ML BOTTLE TP SCH ×2 (08:32→21:21)
[2016-12-30] MEDS: GLYTROL 1,000 ML BAG GT PRN (18:58)
[2016-12-30 20:00] VITALS: BP 111/74
[2016-12-30] MEDS: INSULIN DETEMIR 100 UNIT/ML CARTRIDGE SQ SCH (21:22)
[2016-12-31] MEDS: POLYVINYL ALCOHOL 15 ML BOTTLE EACHEYE SCH ×5 (00:07→23:40)
[2016-12-31] MEDS: IPRATROPIUM NEB FS 0.5 MG/2.5 ML AMPUL.NEB NEB SCH ×4 (01:34→19:50)
[2016-12-31] MEDS: ALBUTEROL FS 2.5 MG/3 ML VIAL.NEB NEB SCH ×4 (01:34→19:50)
[2016-12-31] MEDS: PANTOPRAZOLE 40 MG/PACK PACK GT SCH (06:02)
[2016-12-31] MEDS: BLOOD SUGAR DIAGNOSTIC 1 EACH STRIP IN SCH ×2 (06:02→17:53)
[2016-12-31] MEDS: INSULIN LISPRO/ASPART 100 UNIT/ML CARTRIDGE SQ PRN ×2 (06:03→17:54)
[2016-12-31] MEDS: Z GUARD REMEDY 4 OZ OINT TP SCH ×2 (09:00→21:16)
[2016-12-31] MEDS: LEVETIRACETAM SOL (5 ML) 100 MG/ML UDC GT SCH ×2 (09:00→21:16)
[2016-12-31] MEDS: HYDROGEN PEROXIDE 480 ML BOTTLE TP SCH ×2 (09:00→21:16)
[2016-12-31] MEDS: ASCORBIC ACID 500 MG TABLET GT SCH ×2 (09:36→16:27)
[2016-12-31] MEDS: PYRIDOXINE HCL 50 MG TABLET GT SCH (09:36)
[2016-12-31] MEDS: MVI/MINERALS LIQUID (CEROVITE) GT SCH (09:36)
[2016-12-31] MEDS: POTASSIUM CHLORIDE 20 MEQ POWDER PACKET GT SCH (09:36)
[2016-12-31] MEDS: FERROUS SULFATE - FOR SA ONLY 330 MG/7.5 ML UDC GT SCH ×3 (09:36→16:27)
[2016-12-31] MEDS: ISONIAZID (300 MG) 300 MG TABLET GT SCH (09:36)
[2016-12-31] MEDS: GLYCOPYRROLATE 1 MG TABLET GT SCH ×2 (09:36→16:27)
[2016-12-31] MEDS: BACLOFEN (10 MG) 10 MG TABLET GT SCH ×3 (09:36→16:27)
[2016-12-31] MEDS: DOCUSATE SODIUM LIQ 100 MG/10 ML UDC GT SCH ×2 (09:36→16:27)
[2016-12-31] MEDS: GLYTROL 1,000 ML BAG GT PRN (13:27)
[2016-12-31 20:34] VITALS: BP 108/67
--- NOTE | 2016-12-31 21:44 | NUR ---
Patient received trached on mechanical vent. Breath sounds equal bilateral. Tx given as ordered and tolerated well. No adverse reactions noted. Vent plugged into red outlet and alarms set and functioning.
[2016-12-31] MEDS: INSULIN DETEMIR 100 UNIT/ML CARTRIDGE SQ SCH (22:50)
[2017-01-01] MEDS: ALBUTEROL FS 2.5 MG/3 ML VIAL.NEB NEB SCH ×4 (00:09→20:05)
[2017-01-01] MEDS: IPRATROPIUM NEB FS 0.5 MG/2.5 ML AMPUL.NEB NEB SCH ×4 (00:09→20:05)
[2017-01-01] MEDS: PANTOPRAZOLE 40 MG/PACK PACK GT SCH (05:34)
[2017-01-01] MEDS: POLYVINYL ALCOHOL 15 ML BOTTLE EACHEYE SCH ×4 (05:34→23:42)
[2017-01-01] MEDS: BLOOD SUGAR DIAGNOSTIC 1 EACH STRIP IN SCH ×2 (05:34→17:40)
[2017-01-01] MEDS: INSULIN LISPRO/ASPART 100 UNIT/ML CARTRIDGE SQ PRN ×2 (05:35→17:41)
[2017-01-01] MEDS: GLYTROL 1,000 ML BAG GT PRN (05:35)
[2017-01-01 07:34] VITALS: BP 112/66
[2017-01-01] MEDS: ASCORBIC ACID 500 MG TABLET GT SCH ×2 (08:39→17:40)
[2017-01-01] MEDS: DOCUSATE SODIUM LIQ 100 MG/10 ML UDC GT SCH ×2 (08:39→17:40)
[2017-01-01] MEDS: MVI/MINERALS LIQUID (CEROVITE) GT SCH (08:39)
[2017-01-01] MEDS: LEVETIRACETAM SOL (5 ML) 100 MG/ML UDC GT SCH ×2 (08:39→21:10)
[2017-01-01] MEDS: BACLOFEN (10 MG) 10 MG TABLET GT SCH ×3 (08:39→17:40)
[2017-01-01] MEDS: ISONIAZID (300 MG) 300 MG TABLET GT SCH (08:39)
[2017-01-01] MEDS: GLYCOPYRROLATE 1 MG TABLET GT SCH ×2 (08:39→17:40)
[2017-01-01] MEDS: POTASSIUM CHLORIDE 20 MEQ POWDER PACKET GT SCH (08:39)
[2017-01-01] MEDS: PYRIDOXINE HCL 50 MG TABLET GT SCH (08:39)
[2017-01-01] MEDS: FERROUS SULFATE - FOR SA ONLY 330 MG/7.5 ML UDC GT SCH ×3 (08:39→17:40)
[2017-01-01] MEDS: HYDROGEN PEROXIDE 480 ML BOTTLE TP SCH ×2 (13:49→21:10)
[2017-01-01] MEDS: Z GUARD REMEDY 4 OZ OINT TP SCH ×2 (13:49→21:10)
[2017-01-01 21:08] VITALS: BP 101/66
[2017-01-01] MEDS: INSULIN DETEMIR 100 UNIT/ML CARTRIDGE SQ SCH (21:16)
[2017-01-02] MEDS: IPRATROPIUM NEB FS 0.5 MG/2.5 ML AMPUL.NEB NEB SCH ×4 (01:24→19:34)
[2017-01-02] MEDS: ALBUTEROL FS 2.5 MG/3 ML VIAL.NEB NEB SCH ×4 (01:25→19:34)
[2017-01-02] MEDS: GLYTROL 1,000 ML BAG GT PRN (01:39)
[2017-01-02] MEDS: INSULIN LISPRO/ASPART 100 UNIT/ML CARTRIDGE SQ PRN ×2 (05:35→18:00)
[2017-01-02] MEDS: BLOOD SUGAR DIAGNOSTIC 1 EACH STRIP IN SCH ×2 (05:35→17:57)
[2017-01-02] MEDS: POLYVINYL ALCOHOL 15 ML BOTTLE EACHEYE SCH ×3 (05:45→17:19)
[2017-01-02] MEDS: PANTOPRAZOLE 40 MG/PACK PACK GT SCH (05:45)
[2017-01-02 07:36] VITALS: BP 115/75
[2017-01-02] MEDS: HYDROGEN PEROXIDE 480 ML BOTTLE TP SCH ×2 (09:08→20:27)
[2017-01-02] MEDS: ASCORBIC ACID 500 MG TABLET GT SCH ×2 (09:08→17:19)
[2017-01-02] MEDS: DOCUSATE SODIUM LIQ 100 MG/10 ML UDC GT SCH ×2 (09:08→17:19)
[2017-01-02] MEDS: MVI/MINERALS LIQUID (CEROVITE) GT SCH (09:08)
[2017-01-02] MEDS: GLYCOPYRROLATE 1 MG TABLET GT SCH ×2 (09:08→17:19)
[2017-01-02] MEDS: POTASSIUM CHLORIDE 20 MEQ POWDER PACKET GT SCH (09:08)
[2017-01-02] MEDS: ISONIAZID (300 MG) 300 MG TABLET GT SCH (09:08)
[2017-01-02] MEDS: Z GUARD REMEDY 4 OZ OINT TP SCH ×2 (09:08→20:27)
[2017-01-02] MEDS: FERROUS SULFATE - FOR SA ONLY 330 MG/7.5 ML UDC GT SCH ×3 (09:08→17:19)
[2017-01-02] MEDS: LEVETIRACETAM SOL (5 ML) 100 MG/ML UDC GT SCH ×2 (09:08→20:26)
[2017-01-02] MEDS: PYRIDOXINE HCL 50 MG TABLET GT SCH (09:08)
[2017-01-02] MEDS: BACLOFEN (10 MG) 10 MG TABLET GT SCH ×3 (09:08→17:19)
[2017-01-02 19:43] VITALS: BP 104/69
--- NOTE | 2017-01-02 20:52 | NUR ---
Patient received breathing treatment as ordered and tolerated well. No adverse reactions noted. Breath sounds equal bilateral. Vent plugged into red outlet and alarms set and functioning. Ambu bag at the bed side.
[2017-01-02] MEDS: INSULIN DETEMIR 100 UNIT/ML CARTRIDGE SQ SCH (22:06)
[2017-01-03] MEDS: POLYVINYL ALCOHOL 15 ML BOTTLE EACHEYE SCH ×4 (00:11→17:51)
[2017-01-03] MEDS: ALBUTEROL FS 2.5 MG/3 ML VIAL.NEB NEB SCH ×4 (01:17→20:06)
[2017-01-03] MEDS: IPRATROPIUM NEB FS 0.5 MG/2.5 ML AMPUL.NEB NEB SCH ×4 (01:17→20:06)
[2017-01-03] MEDS: BLOOD SUGAR DIAGNOSTIC 1 EACH STRIP IN SCH ×2 (05:54→17:53)
[2017-01-03] MEDS: PANTOPRAZOLE 40 MG/PACK PACK GT SCH (05:54)
[2017-01-03] MEDS: INSULIN LISPRO/ASPART 100 UNIT/ML CARTRIDGE SQ PRN ×2 (05:55→17:53)
[2017-01-03] MEDS: GLYTROL 1,000 ML BAG GT PRN (06:12)
[2017-01-03 08:17] VITALS: BP 98/65
[2017-01-03] MEDS: BACLOFEN (10 MG) 10 MG TABLET GT SCH ×3 (09:52→17:51)
[2017-01-03] MEDS: MVI/MINERALS LIQUID (CEROVITE) GT SCH (09:52)
[2017-01-03] MEDS: POTASSIUM CHLORIDE 20 MEQ POWDER PACKET GT SCH (09:52)
[2017-01-03] MEDS: PYRIDOXINE HCL 50 MG TABLET GT SCH (09:52)
[2017-01-03] MEDS: ISONIAZID (300 MG) 300 MG TABLET GT SCH (09:52)
[2017-01-03] MEDS: FERROUS SULFATE - FOR SA ONLY 330 MG/7.5 ML UDC GT SCH ×3 (09:52→17:51)
[2017-01-03] MEDS: ASCORBIC ACID 500 MG TABLET GT SCH ×2 (09:52→17:51)
[2017-01-03] MEDS: GLYCOPYRROLATE 1 MG TABLET GT SCH ×2 (09:52→17:51)
[2017-01-03] MEDS: DOCUSATE SODIUM LIQ 100 MG/10 ML UDC GT SCH ×2 (09:52→17:51)
[2017-01-03] MEDS: LEVETIRACETAM SOL (5 ML) 100 MG/ML UDC GT SCH ×2 (09:52→20:25)
[2017-01-03] MEDS: HYDROGEN PEROXIDE 480 ML BOTTLE TP SCH ×2 (09:53→20:25)
[2017-01-03] MEDS: Z GUARD REMEDY 4 OZ OINT TP SCH ×2 (09:53→20:25)
--- NOTE | 2017-01-03 19:30 | NUR ---
RN NOTES Seen and examined by Mya Rodgers with NNO.
[2017-01-03 19:55] VITALS: BP 126/76
[2017-01-03] MEDS: INSULIN DETEMIR 100 UNIT/ML CARTRIDGE SQ SCH (21:49)
[2017-01-04] MEDS: POLYVINYL ALCOHOL 15 ML BOTTLE EACHEYE SCH ×4 (00:17→17:11)
[2017-01-04] MEDS: GLYTROL 1,000 ML BAG GT PRN (01:36)
[2017-01-04] MEDS: ALBUTEROL FS 2.5 MG/3 ML VIAL.NEB NEB SCH ×4 (01:39→20:24)
[2017-01-04] MEDS: IPRATROPIUM NEB FS 0.5 MG/2.5 ML AMPUL.NEB NEB SCH ×4 (01:39→20:24)
[2017-01-04] MEDS: BLOOD SUGAR DIAGNOSTIC 1 EACH STRIP IN SCH ×2 (06:17→18:28)
[2017-01-04] MEDS: PANTOPRAZOLE 40 MG/PACK PACK GT SCH (06:17)
[2017-01-04 07:53] VITALS: BP 131/76
[2017-01-04] MEDS: GLYCOPYRROLATE 1 MG TABLET GT SCH ×2 (08:07→17:10)
[2017-01-04] MEDS: PYRIDOXINE HCL 50 MG TABLET GT SCH (08:07)
[2017-01-04] MEDS: POTASSIUM CHLORIDE 20 MEQ POWDER PACKET GT SCH (08:07)
[2017-01-04] MEDS: BACLOFEN (10 MG) 10 MG TABLET GT SCH ×3 (08:07→17:10)
[2017-01-04] MEDS: ISONIAZID (300 MG) 300 MG TABLET GT SCH (08:07)
[2017-01-04] MEDS: LEVETIRACETAM SOL (5 ML) 100 MG/ML UDC GT SCH ×2 (08:07→20:10)
[2017-01-04] MEDS: HYDROGEN PEROXIDE 480 ML BOTTLE TP SCH ×2 (08:10→20:10)
[2017-01-04] MEDS: DOCUSATE SODIUM LIQ 100 MG/10 ML UDC GT SCH ×2 (08:10→17:11)
[2017-01-04] MEDS: Z GUARD REMEDY 4 OZ OINT TP SCH ×2 (08:10→20:10)
[2017-01-04] MEDS: ASCORBIC ACID 500 MG TABLET GT SCH ×2 (08:10→17:11)
[2017-01-04] MEDS: FERROUS SULFATE - FOR SA ONLY 330 MG/7.5 ML UDC GT SCH ×3 (08:10→17:11)
[2017-01-04] MEDS: MVI/MINERALS LIQUID (CEROVITE) GT SCH (08:10)
--- NOTE | 2017-01-04 10:01 | NUR ---
Seen and examined by DENAE Hoang given at this time.
[2017-01-04 19:59] VITALS: BP 109/73
[2017-01-04] MEDS: INSULIN DETEMIR 100 UNIT/ML CARTRIDGE SQ SCH (22:06)
[2017-01-05] MEDS: POLYVINYL ALCOHOL 15 ML BOTTLE EACHEYE SCH ×4 (00:33→17:21)
[2017-01-05] MEDS: ALBUTEROL FS 2.5 MG/3 ML VIAL.NEB NEB SCH ×4 (01:18→20:29)
[2017-01-05] MEDS: IPRATROPIUM NEB FS 0.5 MG/2.5 ML AMPUL.NEB NEB SCH ×4 (01:18→20:29)
[2017-01-05] MEDS: GLYTROL 1,000 ML BAG GT PRN ×2 (03:24→22:05)
[2017-01-05] MEDS: BLOOD SUGAR DIAGNOSTIC 1 EACH STRIP IN SCH ×2 (05:52→17:22)
[2017-01-05] MEDS: PANTOPRAZOLE 40 MG/PACK PACK GT SCH (05:52)
[2017-01-05] MEDS: INSULIN LISPRO/ASPART 100 UNIT/ML CARTRIDGE SQ PRN ×2 (05:53→17:25)
[2017-01-05 08:08] VITALS: BP 104/77
[2017-01-05] MEDS: MVI/MINERALS LIQUID (CEROVITE) GT SCH (08:47)
[2017-01-05] MEDS: ISONIAZID (300 MG) 300 MG TABLET GT SCH (08:47)
[2017-01-05] MEDS: BACLOFEN (10 MG) 10 MG TABLET GT SCH ×3 (08:47→16:30)
[2017-01-05] MEDS: FERROUS SULFATE - FOR SA ONLY 330 MG/7.5 ML UDC GT SCH ×3 (08:47→16:30)
[2017-01-05] MEDS: Z GUARD REMEDY 4 OZ OINT TP SCH ×2 (08:47→21:31)
[2017-01-05] MEDS: GLYCOPYRROLATE 1 MG TABLET GT SCH ×2 (08:47→16:30)
[2017-01-05] MEDS: LEVETIRACETAM SOL (5 ML) 100 MG/ML UDC GT SCH ×2 (08:47→21:31)
[2017-01-05] MEDS: POTASSIUM CHLORIDE 20 MEQ POWDER PACKET GT SCH (08:47)
[2017-01-05] MEDS: PYRIDOXINE HCL 50 MG TABLET GT SCH (08:47)
[2017-01-05] MEDS: HYDROGEN PEROXIDE 480 ML BOTTLE TP SCH ×2 (08:47→21:31)
[2017-01-05] MEDS: ASCORBIC ACID 500 MG TABLET GT SCH ×2 (08:47→16:31)
[2017-01-05] MEDS: DOCUSATE SODIUM LIQ 100 MG/10 ML UDC GT SCH ×2 (08:47→16:30)
--- NOTE | 2017-01-05 10:58 | NUR ---
Resent podiatry consult to Rad at the wound center since Dr. Hendricks never came.
[2017-01-05] MEDS: INSULIN DETEMIR 100 UNIT/ML CARTRIDGE SQ SCH (21:31)
[2017-01-05 21:47] VITALS: BP 110/72
[2017-01-06] MEDS: POLYVINYL ALCOHOL 15 ML BOTTLE EACHEYE SCH ×4 (00:18→18:32)
[2017-01-06] MEDS: ALBUTEROL FS 2.5 MG/3 ML VIAL.NEB NEB SCH ×4 (01:56→19:33)
[2017-01-06] MEDS: IPRATROPIUM NEB FS 0.5 MG/2.5 ML AMPUL.NEB NEB SCH ×4 (01:56→19:33)
[2017-01-06] MEDS: PANTOPRAZOLE 40 MG/PACK PACK GT SCH (05:06)
[2017-01-06] MEDS: INSULIN LISPRO/ASPART 100 UNIT/ML CARTRIDGE SQ PRN ×2 (05:23→18:33)
[2017-01-06] MEDS: BLOOD SUGAR DIAGNOSTIC 1 EACH STRIP IN SCH ×2 (05:23→18:32)
[2017-01-06] MEDS: GLYCOPYRROLATE 1 MG TABLET GT SCH ×2 (09:00→17:00)
[2017-01-06] MEDS: BACLOFEN (10 MG) 10 MG TABLET GT SCH ×3 (09:00→17:00)
[2017-01-06] MEDS: HYDROGEN PEROXIDE 480 ML BOTTLE TP SCH ×2 (09:00→21:19)
[2017-01-06] MEDS: MVI/MINERALS LIQUID (CEROVITE) GT SCH (09:00)
[2017-01-06] MEDS: LEVETIRACETAM SOL (5 ML) 100 MG/ML UDC GT SCH ×2 (09:00→21:18)
[2017-01-06] MEDS: FERROUS SULFATE - FOR SA ONLY 330 MG/7.5 ML UDC GT SCH ×3 (09:00→17:00)
[2017-01-06] MEDS: Z GUARD REMEDY 4 OZ OINT TP SCH ×2 (09:00→21:19)
[2017-01-06] MEDS: PYRIDOXINE HCL 50 MG TABLET GT SCH (09:00)
[2017-01-06] MEDS: DOCUSATE SODIUM LIQ 100 MG/10 ML UDC GT SCH ×2 (09:00→13:44)
[2017-01-06] MEDS: ASCORBIC ACID 500 MG TABLET GT SCH ×2 (09:00→17:00)
[2017-01-06] MEDS: POTASSIUM CHLORIDE 20 MEQ POWDER PACKET GT SCH (09:00)
[2017-01-06] MEDS: ISONIAZID (300 MG) 300 MG TABLET GT SCH (09:00)
--- NOTE | 2017-01-06 14:20 | NUR ---
Seen and examined by Dr Bullard with no new order.
--- NOTE | 2017-01-06 15:40 | NUR ---
Seen and examined by Mya VENTURA with no new order.
[2017-01-06 21:12] VITALS: BP 113/71
[2017-01-06] MEDS: INSULIN DETEMIR 100 UNIT/ML CARTRIDGE SQ SCH (21:19)
[2017-01-06] MEDS: GLYTROL 1,000 ML BAG GT PRN (22:31)
[2017-01-07] MEDS: POLYVINYL ALCOHOL 15 ML BOTTLE EACHEYE SCH ×4 (00:03→17:54)
[2017-01-07] MEDS: IPRATROPIUM NEB FS 0.5 MG/2.5 ML AMPUL.NEB NEB SCH ×4 (01:42→19:00)
[2017-01-07] MEDS: ALBUTEROL FS 2.5 MG/3 ML VIAL.NEB NEB SCH ×4 (01:42→19:00)
[2017-01-07] MEDS: PANTOPRAZOLE 40 MG/PACK PACK GT SCH (05:16)
[2017-01-07] MEDS: BLOOD SUGAR DIAGNOSTIC 1 EACH STRIP IN SCH ×2 (06:28→17:54)
[2017-01-07] MEDS: INSULIN LISPRO/ASPART 100 UNIT/ML CARTRIDGE SQ PRN ×2 (06:29→17:56)
--- NOTE | 2017-01-07 07:06 | NUR ---
Received female sergio pt on mechanical vent. Pt sergio enrique. Vent is plugged into a red outlet, alarms are set and audible, disconnect alarms checked, BVM is at beside. Addendum: 01/07/17 at 0714 by SHABNAM GROSSMAN RT Amended: Links added.
[2017-01-07 07:38] VITALS: BP 144/96
[2017-01-07] MEDS: GLYCOPYRROLATE 1 MG TABLET GT SCH ×2 (08:49→16:51)
[2017-01-07] MEDS: DOCUSATE SODIUM LIQ 100 MG/10 ML UDC GT SCH ×2 (08:49→16:51)
[2017-01-07] MEDS: FERROUS SULFATE - FOR SA ONLY 330 MG/7.5 ML UDC GT SCH ×3 (08:49→16:51)
[2017-01-07] MEDS: MVI/MINERALS LIQUID (CEROVITE) GT SCH (08:50)
[2017-01-07] MEDS: BACLOFEN (10 MG) 10 MG TABLET GT SCH ×3 (08:50→16:51)
[2017-01-07] MEDS: LEVETIRACETAM SOL (5 ML) 100 MG/ML UDC GT SCH ×2 (08:50→21:17)
[2017-01-07] MEDS: POTASSIUM CHLORIDE 20 MEQ POWDER PACKET GT SCH (08:50)
[2017-01-07] MEDS: ISONIAZID (300 MG) 300 MG TABLET GT SCH (08:50)
[2017-01-07] MEDS: PYRIDOXINE HCL 50 MG TABLET GT SCH (08:50)
[2017-01-07] MEDS: Z GUARD REMEDY 4 OZ OINT TP SCH ×2 (08:50→21:17)
[2017-01-07] MEDS: HYDROGEN PEROXIDE 480 ML BOTTLE TP SCH ×2 (08:50→21:17)
[2017-01-07] MEDS: ASCORBIC ACID 500 MG TABLET GT SCH ×2 (08:50→16:51)
[2017-01-07] MEDS: GLYTROL 1,000 ML BAG GT PRN (17:54)
[2017-01-07] MEDS: POLYETHYLENE GLYCOL 3350 17 GM POWD.PACK GT PRN (17:55)
--- NOTE | 2017-01-07 19:05 | NUR ---
RT Found patient on settings of AC12 500 +0 40% . Sat: 96% HR:74 . Patient is calm, secretions small, thick and white. Ambu bag is at bedside. Addendum: 01/07/17 at 2119 by JEF ANGULO RT Amended: Links added.
[2017-01-07 19:49] VITALS: BP 102/71
[2017-01-07] MEDS: INSULIN DETEMIR 100 UNIT/ML CARTRIDGE SQ SCH (21:17)
[2017-01-08] MEDS: IPRATROPIUM NEB FS 0.5 MG/2.5 ML AMPUL.NEB NEB SCH ×4 (01:26→19:28)
[2017-01-08] MEDS: ALBUTEROL FS 2.5 MG/3 ML VIAL.NEB NEB SCH ×4 (01:26→19:28)
[2017-01-08] MEDS: POLYVINYL ALCOHOL 15 ML BOTTLE EACHEYE SCH ×5 (05:42→23:34)
[2017-01-08] MEDS: PANTOPRAZOLE 40 MG/PACK PACK GT SCH (05:42)
[2017-01-08] MEDS: BLOOD SUGAR DIAGNOSTIC 1 EACH STRIP IN SCH ×2 (05:43→17:10)
[2017-01-08] MEDS: INSULIN LISPRO/ASPART 100 UNIT/ML CARTRIDGE SQ PRN ×2 (05:43→17:11)
[2017-01-08 07:42] VITALS: BP 101/66
[2017-01-08] MEDS: POTASSIUM CHLORIDE 20 MEQ POWDER PACKET GT SCH (08:46)
[2017-01-08] MEDS: ISONIAZID (300 MG) 300 MG TABLET GT SCH (08:46)
[2017-01-08] MEDS: FERROUS SULFATE - FOR SA ONLY 330 MG/7.5 ML UDC GT SCH ×3 (08:46→16:58)
[2017-01-08] MEDS: ASCORBIC ACID 500 MG TABLET GT SCH ×2 (08:46→16:58)
[2017-01-08] MEDS: GLYCOPYRROLATE 1 MG TABLET GT SCH ×2 (08:46→16:58)
[2017-01-08] MEDS: BACLOFEN (10 MG) 10 MG TABLET GT SCH ×3 (08:46→16:58)
[2017-01-08] MEDS: Z GUARD REMEDY 4 OZ OINT TP SCH ×2 (08:46→21:06)
[2017-01-08] MEDS: LEVETIRACETAM SOL (5 ML) 100 MG/ML UDC GT SCH ×2 (08:46→21:06)
[2017-01-08] MEDS: MVI/MINERALS LIQUID (CEROVITE) GT SCH (08:46)
[2017-01-08] MEDS: DOCUSATE SODIUM LIQ 100 MG/10 ML UDC GT SCH ×2 (08:46→16:58)
[2017-01-08] MEDS: PYRIDOXINE HCL 50 MG TABLET GT SCH (08:46)
[2017-01-08] MEDS: HYDROGEN PEROXIDE 480 ML BOTTLE TP SCH ×2 (08:47→21:06)
--- NOTE | 2017-01-08 20:17 | NUR ---
Patient received trached on mechanical vent. Breath sounds equal bilateral. treatment given as ordered and tolerated well. No adverse reactions noted. Vent plugged into red outlet and alarms set and functioning.
[2017-01-08 20:34] VITALS: BP 93/61
[2017-01-08] MEDS: INSULIN DETEMIR 100 UNIT/ML CARTRIDGE SQ SCH (21:07)
[2017-01-08] MEDS: GLYTROL 1,000 ML BAG GT PRN (21:07)
[2017-01-09] MEDS: IPRATROPIUM NEB FS 0.5 MG/2.5 ML AMPUL.NEB NEB SCH ×4 (00:57→19:14)
[2017-01-09] MEDS: ALBUTEROL FS 2.5 MG/3 ML VIAL.NEB NEB SCH ×4 (00:57→19:14)
[2017-01-09] MEDS: POLYVINYL ALCOHOL 15 ML BOTTLE EACHEYE SCH ×3 (05:42→17:17)
[2017-01-09] MEDS: PANTOPRAZOLE 40 MG/PACK PACK GT SCH (05:42)
[2017-01-09] MEDS: BLOOD SUGAR DIAGNOSTIC 1 EACH STRIP IN SCH ×2 (05:42→17:17)
--- NOTE | 2017-01-09 07:04 | NUR ---
Received female sergio pt on mechanical vent. Pt sergio enrique. Vent is plugged into a red outlet, alarms are set and audible, disconnect alarms checked, BVM is at beside. Addendum: 01/09/17 at 0704 by SHABNAM GROSSMAN RT Amended: Links added.
[2017-01-09 07:26] VITALS: BP 105/53
[2017-01-09] MEDS: PYRIDOXINE HCL 50 MG TABLET GT SCH (09:00)
[2017-01-09] MEDS: LEVETIRACETAM SOL (5 ML) 100 MG/ML UDC GT SCH ×2 (09:00→21:23)
[2017-01-09] MEDS: GLYCOPYRROLATE 1 MG TABLET GT SCH ×2 (09:00→17:16)
[2017-01-09] MEDS: DOCUSATE SODIUM LIQ 100 MG/10 ML UDC GT SCH ×2 (09:00→17:16)
[2017-01-09] MEDS: ISONIAZID (300 MG) 300 MG TABLET GT SCH (09:00)
[2017-01-09] MEDS: Z GUARD REMEDY 4 OZ OINT TP SCH ×2 (09:00→21:23)
[2017-01-09] MEDS: MVI/MINERALS LIQUID (CEROVITE) GT SCH (09:00)
[2017-01-09] MEDS: POTASSIUM CHLORIDE 20 MEQ POWDER PACKET GT SCH (09:00)
[2017-01-09] MEDS: BACLOFEN (10 MG) 10 MG TABLET GT SCH ×3 (09:00→17:16)
[2017-01-09] MEDS: FERROUS SULFATE - FOR SA ONLY 330 MG/7.5 ML UDC GT SCH ×3 (09:00→17:16)
[2017-01-09] MEDS: ASCORBIC ACID 500 MG TABLET GT SCH ×2 (09:00→17:16)
[2017-01-09] MEDS: HYDROGEN PEROXIDE 480 ML BOTTLE TP SCH ×2 (09:00→21:23)
[2017-01-09] MEDS: INSULIN LISPRO/ASPART 100 UNIT/ML CARTRIDGE SQ PRN (17:43)
[2017-01-09] MEDS: GLYTROL 1,000 ML BAG GT PRN (18:37)
[2017-01-09 19:53] VITALS: BP 117/73
[2017-01-09] MEDS: INSULIN DETEMIR 100 UNIT/ML CARTRIDGE SQ SCH (21:23)
[2017-01-10] MEDS: POLYVINYL ALCOHOL 15 ML BOTTLE EACHEYE SCH ×4 (00:33→17:40)
[2017-01-10] MEDS: ALBUTEROL FS 2.5 MG/3 ML VIAL.NEB NEB SCH ×4 (01:07→19:02)
[2017-01-10] MEDS: IPRATROPIUM NEB FS 0.5 MG/2.5 ML AMPUL.NEB NEB SCH ×4 (01:07→19:02)
[2017-01-10] MEDS: BLOOD SUGAR DIAGNOSTIC 1 EACH STRIP IN SCH ×2 (05:53→17:52)
[2017-01-10] MEDS: PANTOPRAZOLE 40 MG/PACK PACK GT SCH (05:53)
--- NOTE | 2017-01-10 07:09 | NUR ---
Received female sergio pt on mechanical vent. Pt sergio enrique. Vent is plugged into a red outlet, alarms are set and audible, disconnect alarms checked, BVM is at beside. Addendum: 01/10/17 at 0710 by SHABNAM GROSSMAN RT Amended: Links added.
[2017-01-10 07:38] LABS: ALBUMIN 3.2 g/dL (3.4-5.0); BILIRUBIN,DIRECT 0.1 mg/dL (0.0-0.2); BILIRUBIN,TOTAL 0.2 mg/dL (0.2-1.0); TOTAL PROTEIN, SERUM 7.5 g/dL (6.4-8.2)
[2017-01-10 07:51] VITALS: BP 119/72
[2017-01-10] MEDS: LEVETIRACETAM SOL (5 ML) 100 MG/ML UDC GT SCH ×2 (09:52→21:35)
[2017-01-10] MEDS: BACLOFEN (10 MG) 10 MG TABLET GT SCH ×3 (09:52→17:40)
[2017-01-10] MEDS: ISONIAZID (300 MG) 300 MG TABLET GT SCH (09:52)
[2017-01-10] MEDS: POTASSIUM CHLORIDE 20 MEQ POWDER PACKET GT SCH (09:52)
[2017-01-10] MEDS: GLYCOPYRROLATE 1 MG TABLET GT SCH ×2 (09:52→17:40)
[2017-01-10] MEDS: FERROUS SULFATE - FOR SA ONLY 330 MG/7.5 ML UDC GT SCH ×3 (09:52→17:40)
[2017-01-10] MEDS: PYRIDOXINE HCL 50 MG TABLET GT SCH (09:52)
[2017-01-10] MEDS: MVI/MINERALS LIQUID (CEROVITE) GT SCH (09:52)
[2017-01-10] MEDS: DOCUSATE SODIUM LIQ 100 MG/10 ML UDC GT SCH ×2 (09:52→17:40)
[2017-01-10] MEDS: ASCORBIC ACID 500 MG TABLET GT SCH ×2 (09:52→17:40)
[2017-01-10] MEDS: Z GUARD REMEDY 4 OZ OINT TP SCH ×2 (10:45→21:35)
[2017-01-10] MEDS: HYDROGEN PEROXIDE 480 ML BOTTLE TP SCH ×2 (10:45→21:35)
[2017-01-10] MEDS: GLYTROL 1,000 ML BAG GT PRN (19:08)
[2017-01-10 20:10] VITALS: BP 109/75
[2017-01-10] MEDS: INSULIN DETEMIR 100 UNIT/ML CARTRIDGE SQ SCH (21:35)
[2017-01-11] MEDS: IPRATROPIUM NEB FS 0.5 MG/2.5 ML AMPUL.NEB NEB SCH ×4 (02:27→19:32)
[2017-01-11] MEDS: ALBUTEROL FS 2.5 MG/3 ML VIAL.NEB NEB SCH ×4 (02:27→19:32)
[2017-01-11] MEDS: PANTOPRAZOLE 40 MG/PACK PACK GT SCH (06:26)
[2017-01-11] MEDS: POLYVINYL ALCOHOL 15 ML BOTTLE EACHEYE SCH ×4 (06:26→17:59)
[2017-01-11] MEDS: BLOOD SUGAR DIAGNOSTIC 1 EACH STRIP IN SCH ×2 (06:26→18:06)
[2017-01-11 08:03] VITALS: BP 98/71
[2017-01-11] MEDS: POTASSIUM CHLORIDE 20 MEQ POWDER PACKET GT SCH (08:12)
[2017-01-11] MEDS: ASCORBIC ACID 500 MG TABLET GT SCH ×2 (08:12→17:59)
[2017-01-11] MEDS: GLYCOPYRROLATE 1 MG TABLET GT SCH ×2 (08:12→17:59)
[2017-01-11] MEDS: DOCUSATE SODIUM LIQ 100 MG/10 ML UDC GT SCH ×2 (08:12→17:59)
[2017-01-11] MEDS: LEVETIRACETAM SOL (5 ML) 100 MG/ML UDC GT SCH ×2 (08:12→21:05)
[2017-01-11] MEDS: BACLOFEN (10 MG) 10 MG TABLET GT SCH ×3 (08:12→17:59)
[2017-01-11] MEDS: FERROUS SULFATE - FOR SA ONLY 330 MG/7.5 ML UDC GT SCH ×3 (08:12→17:59)
[2017-01-11] MEDS: MVI/MINERALS LIQUID (CEROVITE) GT SCH (08:12)
[2017-01-11] MEDS: Z GUARD REMEDY 4 OZ OINT TP SCH ×2 (15:30→21:06)
[2017-01-11] MEDS: HYDROGEN PEROXIDE 480 ML BOTTLE TP SCH ×2 (15:30→21:06)
[2017-01-11] MEDS: GLYTROL 1,000 ML BAG GT PRN (15:50)
[2017-01-11 20:00] VITALS: BP 102/63
[2017-01-11] MEDS: INSULIN DETEMIR 100 UNIT/ML CARTRIDGE SQ SCH (21:06)
[2017-01-12] MEDS: POLYVINYL ALCOHOL 15 ML BOTTLE EACHEYE SCH ×4 (00:13→17:24)
[2017-01-12] MEDS: IPRATROPIUM NEB FS 0.5 MG/2.5 ML AMPUL.NEB NEB SCH ×4 (02:07→19:38)
[2017-01-12] MEDS: ALBUTEROL FS 2.5 MG/3 ML VIAL.NEB NEB SCH ×4 (02:07→19:38)
[2017-01-12] MEDS: PANTOPRAZOLE 40 MG/PACK PACK GT SCH (06:02)
[2017-01-12] MEDS: BLOOD SUGAR DIAGNOSTIC 1 EACH STRIP IN SCH ×2 (06:02→17:24)
[2017-01-12 07:35] VITALS: BP 96/59
[2017-01-12] MEDS: FERROUS SULFATE - FOR SA ONLY 330 MG/7.5 ML UDC GT SCH ×3 (08:18→17:24)
[2017-01-12] MEDS: GLYCOPYRROLATE 1 MG TABLET GT SCH ×2 (08:18→17:24)
[2017-01-12] MEDS: ASCORBIC ACID 500 MG TABLET GT SCH ×2 (08:18→17:24)
[2017-01-12] MEDS: MVI/MINERALS LIQUID (CEROVITE) GT SCH (08:18)
[2017-01-12] MEDS: HYDROGEN PEROXIDE 480 ML BOTTLE TP SCH ×2 (08:18→21:49)
[2017-01-12] MEDS: LEVETIRACETAM SOL (5 ML) 100 MG/ML UDC GT SCH ×2 (08:18→21:49)
[2017-01-12] MEDS: POTASSIUM CHLORIDE 20 MEQ POWDER PACKET GT SCH (08:18)
[2017-01-12] MEDS: DOCUSATE SODIUM LIQ 100 MG/10 ML UDC GT SCH ×2 (08:18→17:24)
[2017-01-12] MEDS: BACLOFEN (10 MG) 10 MG TABLET GT SCH ×3 (08:18→17:24)
[2017-01-12] MEDS: Z GUARD REMEDY 4 OZ OINT TP SCH ×2 (08:19→21:49)
[2017-01-12] MEDS: GLYTROL 1,000 ML BAG GT PRN (13:44)
[2017-01-12] MEDS: INSULIN LISPRO/ASPART 100 UNIT/ML CARTRIDGE SQ PRN (17:43)
[2017-01-12 20:13] VITALS: BP 113/73
[2017-01-12] MEDS: INSULIN DETEMIR 100 UNIT/ML CARTRIDGE SQ SCH (21:49)
[2017-01-13] MEDS: POLYVINYL ALCOHOL 15 ML BOTTLE EACHEYE SCH ×5 (00:49→23:57)
[2017-01-13] MEDS: ALBUTEROL FS 2.5 MG/3 ML VIAL.NEB NEB SCH ×4 (01:51→19:37)
[2017-01-13] MEDS: IPRATROPIUM NEB FS 0.5 MG/2.5 ML AMPUL.NEB NEB SCH ×4 (01:51→19:37)
[2017-01-13] MEDS: BLOOD SUGAR DIAGNOSTIC 1 EACH STRIP IN SCH ×2 (05:41→18:16)
[2017-01-13] MEDS: INSULIN LISPRO/ASPART 100 UNIT/ML CARTRIDGE SQ PRN (05:41)
[2017-01-13] MEDS: PANTOPRAZOLE 40 MG/PACK PACK GT SCH (05:41)
[2017-01-13 07:50] VITALS: BP 107/71
[2017-01-13] MEDS: ASCORBIC ACID 500 MG TABLET GT SCH ×2 (09:51→17:00)
[2017-01-13] MEDS: MVI/MINERALS LIQUID (CEROVITE) GT SCH (09:51)
[2017-01-13] MEDS: DOCUSATE SODIUM LIQ 100 MG/10 ML UDC GT SCH ×2 (09:51→17:00)
[2017-01-13] MEDS: BACLOFEN (10 MG) 10 MG TABLET GT SCH ×3 (09:51→17:00)
[2017-01-13] MEDS: LEVETIRACETAM SOL (5 ML) 100 MG/ML UDC GT SCH ×2 (09:51→20:09)
[2017-01-13] MEDS: FERROUS SULFATE - FOR SA ONLY 330 MG/7.5 ML UDC GT SCH ×3 (09:51→17:00)
[2017-01-13] MEDS: GLYCOPYRROLATE 1 MG TABLET GT SCH ×2 (09:51→17:00)
[2017-01-13] MEDS: POTASSIUM CHLORIDE 20 MEQ POWDER PACKET GT SCH (09:51)
[2017-01-13] MEDS: HYDROGEN PEROXIDE 480 ML BOTTLE TP SCH ×2 (11:00→20:09)
[2017-01-13] MEDS: Z GUARD REMEDY 4 OZ OINT TP SCH ×2 (11:00→20:09)
[2017-01-13] MEDS: GLYTROL 1,000 ML BAG GT PRN (14:05)
[2017-01-13 20:07] VITALS: BP 104/74
[2017-01-13] MEDS: POLYETHYLENE GLYCOL 3350 17 GM POWD.PACK GT PRN (20:09)
[2017-01-13] MEDS: INSULIN DETEMIR 100 UNIT/ML CARTRIDGE SQ SCH (22:55)
[2017-01-14] MEDS: IPRATROPIUM NEB FS 0.5 MG/2.5 ML AMPUL.NEB NEB SCH ×4 (00:57→19:24)
[2017-01-14] MEDS: ALBUTEROL FS 2.5 MG/3 ML VIAL.NEB NEB SCH ×4 (00:57→19:24)
[2017-01-14] MEDS: POLYVINYL ALCOHOL 15 ML BOTTLE EACHEYE SCH ×3 (05:13→18:39)
[2017-01-14] MEDS: PANTOPRAZOLE 40 MG/PACK PACK GT SCH (05:13)
[2017-01-14] MEDS: INSULIN LISPRO/ASPART 100 UNIT/ML CARTRIDGE SQ PRN ×2 (05:16→18:40)
[2017-01-14] MEDS: BLOOD SUGAR DIAGNOSTIC 1 EACH STRIP IN SCH ×2 (05:16→18:39)
[2017-01-14] MEDS: BISACODYL SUPP (10 MG) 10 MG/SUPP.RECT SUPP.RECT RC PRN (06:50)
[2017-01-14 07:40] VITALS: BP 156/60
[2017-01-14] MEDS: DOCUSATE SODIUM LIQ 100 MG/10 ML UDC GT SCH ×2 (08:44→16:33)
[2017-01-14] MEDS: MVI/MINERALS LIQUID (CEROVITE) GT SCH (08:51)
[2017-01-14] MEDS: POTASSIUM CHLORIDE 20 MEQ POWDER PACKET GT SCH (08:51)
[2017-01-14] MEDS: GLYCOPYRROLATE 1 MG TABLET GT SCH ×2 (08:51→16:33)
[2017-01-14] MEDS: LEVETIRACETAM SOL (5 ML) 100 MG/ML UDC GT SCH ×2 (08:51→21:07)
[2017-01-14] MEDS: ASCORBIC ACID 500 MG TABLET GT SCH ×2 (08:51→16:33)
[2017-01-14] MEDS: FERROUS SULFATE - FOR SA ONLY 330 MG/7.5 ML UDC GT SCH ×3 (08:51→16:33)
[2017-01-14] MEDS: BACLOFEN (10 MG) 10 MG TABLET GT SCH ×3 (08:51→16:33)
[2017-01-14] MEDS: Z GUARD REMEDY 4 OZ OINT TP SCH ×2 (09:00→21:07)
[2017-01-14] MEDS: HYDROGEN PEROXIDE 480 ML BOTTLE TP SCH ×2 (09:00→21:07)
[2017-01-14] MEDS: GLYTROL 1,000 ML BAG GT PRN (11:46)
[2017-01-14 20:49] VITALS: BP 101/66
[2017-01-14] MEDS: INSULIN DETEMIR 100 UNIT/ML CARTRIDGE SQ SCH (21:07)
[2017-01-15] MEDS: POLYVINYL ALCOHOL 15 ML BOTTLE EACHEYE SCH ×5 (00:53→23:04)
[2017-01-15] MEDS: ALBUTEROL FS 2.5 MG/3 ML VIAL.NEB NEB SCH ×4 (01:03→19:43)
[2017-01-15] MEDS: IPRATROPIUM NEB FS 0.5 MG/2.5 ML AMPUL.NEB NEB SCH ×4 (01:03→19:43)
[2017-01-15] MEDS: PANTOPRAZOLE 40 MG/PACK PACK GT SCH (05:49)
[2017-01-15] MEDS: BLOOD SUGAR DIAGNOSTIC 1 EACH STRIP IN SCH ×2 (05:49→17:45)
[2017-01-15] MEDS: INSULIN LISPRO/ASPART 100 UNIT/ML CARTRIDGE SQ PRN ×2 (05:49→17:46)
[2017-01-15 07:34] VITALS: BP 106/68
[2017-01-15] MEDS: GLYCOPYRROLATE 1 MG TABLET GT SCH ×2 (09:48→16:31)
[2017-01-15] MEDS: LEVETIRACETAM SOL (5 ML) 100 MG/ML UDC GT SCH ×2 (09:48→21:03)
[2017-01-15] MEDS: DOCUSATE SODIUM LIQ 100 MG/10 ML UDC GT SCH ×2 (09:48→16:31)
[2017-01-15] MEDS: FERROUS SULFATE - FOR SA ONLY 330 MG/7.5 ML UDC GT SCH ×3 (09:48→16:31)
[2017-01-15] MEDS: POTASSIUM CHLORIDE 20 MEQ POWDER PACKET GT SCH (09:48)
[2017-01-15] MEDS: BACLOFEN (10 MG) 10 MG TABLET GT SCH ×3 (09:49→16:31)
[2017-01-15] MEDS: ASCORBIC ACID 500 MG TABLET GT SCH ×2 (09:49→16:31)
[2017-01-15] MEDS: MVI/MINERALS LIQUID (CEROVITE) GT SCH (09:49)
[2017-01-15] MEDS: Z GUARD REMEDY 4 OZ OINT TP SCH ×2 (09:49→21:03)
[2017-01-15] MEDS: HYDROGEN PEROXIDE 480 ML BOTTLE TP SCH ×2 (09:49→21:03)
[2017-01-15] MEDS: GLYTROL 1,000 ML BAG GT PRN (10:21)
--- NOTE | 2017-01-15 15:10 | NUR ---
RT RECEIVED PT TRACH'D ON VENT WITH SETTINGS PER MD ORDER. INTERN RETAIL DONE. BILAT BREATH SOUNDS ON AUSCULTATION. TRACH SECURE AND AIRWAY PATENT. SUCTIONED SMALL AMOUNTS OF THICK, WHITE/FISHMAN SECRETIONS. ALARMS ON AND SET PROPERLY. VENT PLUGGED INTO RED OUTLET. TX'S GIVEN. NO ADVERSE REACTIONS OBSERVED. NO SOB NOTED AT THIS TIME. WILL CONTINUE TO MONITOR THE PATIENT FOR ANY CHANGES. VENT CIRCUIT CHANGED. Addendum: 01/15/17 at 2249 by WING WHITTINGTON RT Amended: Links added.
[2017-01-15] MEDS: INSULIN DETEMIR 100 UNIT/ML CARTRIDGE SQ SCH (21:04)
[2017-01-15 21:57] VITALS: BP 111/68
[2017-01-16] MEDS: IPRATROPIUM NEB FS 0.5 MG/2.5 ML AMPUL.NEB NEB SCH ×4 (00:41→19:35)
[2017-01-16] MEDS: ALBUTEROL FS 2.5 MG/3 ML VIAL.NEB NEB SCH ×4 (00:41→19:35)
[2017-01-16] MEDS: BLOOD SUGAR DIAGNOSTIC 1 EACH STRIP IN SCH ×2 (05:09→18:08)
[2017-01-16] MEDS: POLYVINYL ALCOHOL 15 ML BOTTLE EACHEYE SCH ×3 (05:09→17:28)
[2017-01-16] MEDS: PANTOPRAZOLE 40 MG/PACK PACK GT SCH (05:09)
[2017-01-16] MEDS: GLYTROL 1,000 ML BAG GT PRN (05:10)
[2017-01-16 08:08] VITALS: BP 118/75
[2017-01-16] MEDS: GLYCOPYRROLATE 1 MG TABLET GT SCH ×2 (09:50→17:27)
[2017-01-16] MEDS: FERROUS SULFATE - FOR SA ONLY 330 MG/7.5 ML UDC GT SCH ×3 (09:50→17:27)
[2017-01-16] MEDS: DOCUSATE SODIUM LIQ 100 MG/10 ML UDC GT SCH ×2 (09:50→17:27)
[2017-01-16] MEDS: LEVETIRACETAM SOL (5 ML) 100 MG/ML UDC GT SCH ×2 (09:51→21:29)
[2017-01-16] MEDS: POTASSIUM CHLORIDE 20 MEQ POWDER PACKET GT SCH (09:51)
[2017-01-16] MEDS: BACLOFEN (10 MG) 10 MG TABLET GT SCH ×3 (09:51→17:27)
[2017-01-16] MEDS: MVI/MINERALS LIQUID (CEROVITE) GT SCH (09:52)
[2017-01-16] MEDS: HYDROGEN PEROXIDE 480 ML BOTTLE TP SCH ×2 (09:52→21:29)
[2017-01-16] MEDS: ASCORBIC ACID 500 MG TABLET GT SCH ×2 (09:52→17:27)
[2017-01-16] MEDS: Z GUARD REMEDY 4 OZ OINT TP SCH ×2 (09:52→21:29)
[2017-01-16] MEDS: BISACODYL SUPP (10 MG) 10 MG/SUPP.RECT SUPP.RECT RC PRN (18:48)
[2017-01-16 20:35] VITALS: BP 115/76
[2017-01-16] MEDS: INSULIN DETEMIR 100 UNIT/ML CARTRIDGE SQ SCH (21:30)
[2017-01-17] MEDS: POLYVINYL ALCOHOL 15 ML BOTTLE EACHEYE SCH ×4 (00:11→17:35)
[2017-01-17] MEDS: ALBUTEROL FS 2.5 MG/3 ML VIAL.NEB NEB SCH ×4 (01:14→19:17)
[2017-01-17] MEDS: IPRATROPIUM NEB FS 0.5 MG/2.5 ML AMPUL.NEB NEB SCH ×4 (01:14→19:17)
[2017-01-17] MEDS: PANTOPRAZOLE 40 MG/PACK PACK GT SCH (05:48)
[2017-01-17] MEDS: BLOOD SUGAR DIAGNOSTIC 1 EACH STRIP IN SCH ×2 (05:48→17:35)
--- NOTE | 2017-01-17 08:03 | NUR ---
RT PT RECEIVED TRACHED ON THE VENT WITH NOTED SETTINGS. PT IS AWAKE BUT DOES NOT FOLLOW COMMANDS. VENT ALARMS SIMRAN SET AND AUDIBLE WITH BVM BY BEDSIDE. SCRAP CRANE OPERATOR CUFF PRESSURE NOTED. VENT IS PLUGGED INTO RED OUTLET. NO RESPIRATORY DISTRESS NOTED AT THIS TIME, WILL CONTINUE TO MONITOR. Addendum: 01/17/17 at 1703 by SAE ERNST RT Amended: Links added.
[2017-01-17] MEDS: FERROUS SULFATE - FOR SA ONLY 330 MG/7.5 ML UDC GT SCH ×3 (08:37→17:35)
[2017-01-17] MEDS: GLYCOPYRROLATE 1 MG TABLET GT SCH ×2 (08:37→17:35)
[2017-01-17] MEDS: DOCUSATE SODIUM LIQ 100 MG/10 ML UDC GT SCH ×2 (08:37→17:35)
[2017-01-17] MEDS: POTASSIUM CHLORIDE 20 MEQ POWDER PACKET GT SCH (08:37)
[2017-01-17] MEDS: LEVETIRACETAM SOL (5 ML) 100 MG/ML UDC GT SCH ×2 (08:37→21:29)
[2017-01-17] MEDS: BACLOFEN (10 MG) 10 MG TABLET GT SCH ×3 (08:38→17:35)
[2017-01-17] MEDS: ASCORBIC ACID 500 MG TABLET GT SCH ×2 (08:38→17:35)
[2017-01-17] MEDS: MVI/MINERALS LIQUID (CEROVITE) GT SCH (08:38)
--- NOTE | 2017-01-17 11:48 | NUR ---
01/17/17 - LE for 01/10/17 Head circumference measured 57.5cm.
--- NOTE | 2017-01-17 11:52 | NUR ---
01/17/17 LE for 01/14/17 Head circumference measured 57.5cm.
--- NOTE | 2017-01-17 11:53 | NUR ---
01/17/17 Head circumference measured with 58cm.
[2017-01-17] MEDS: Z GUARD REMEDY 4 OZ OINT TP SCH ×2 (14:15→21:29)
[2017-01-17] MEDS: HYDROGEN PEROXIDE 480 ML BOTTLE TP SCH ×2 (14:15→21:29)
[2017-01-17 20:15] VITALS: BP 121/56
[2017-01-17] MEDS: INSULIN DETEMIR 100 UNIT/ML CARTRIDGE SQ SCH (21:29)
[2017-01-18] MEDS: IPRATROPIUM NEB FS 0.5 MG/2.5 ML AMPUL.NEB NEB SCH ×4 (00:38→19:34)
[2017-01-18] MEDS: ALBUTEROL FS 2.5 MG/3 ML VIAL.NEB NEB SCH ×4 (00:38→19:34)
[2017-01-18] MEDS: PANTOPRAZOLE 40 MG/PACK PACK GT SCH (05:49)
[2017-01-18] MEDS: POLYVINYL ALCOHOL 15 ML BOTTLE EACHEYE SCH ×4 (05:49→17:23)
[2017-01-18] MEDS: BLOOD SUGAR DIAGNOSTIC 1 EACH STRIP IN SCH ×2 (05:49→17:51)
[2017-01-18 07:50] VITALS: BP 111/73
[2017-01-18] MEDS: ASCORBIC ACID 500 MG TABLET GT SCH ×2 (08:10→17:23)
[2017-01-18] MEDS: GLYCOPYRROLATE 1 MG TABLET GT SCH ×2 (08:10→17:23)
[2017-01-18] MEDS: POTASSIUM CHLORIDE 20 MEQ POWDER PACKET GT SCH (08:10)
[2017-01-18] MEDS: MVI/MINERALS LIQUID (CEROVITE) GT SCH (08:10)
[2017-01-18] MEDS: FERROUS SULFATE - FOR SA ONLY 330 MG/7.5 ML UDC GT SCH ×3 (08:10→17:23)
[2017-01-18] MEDS: BACLOFEN (10 MG) 10 MG TABLET GT SCH ×3 (08:10→17:23)
[2017-01-18] MEDS: DOCUSATE SODIUM LIQ 100 MG/10 ML UDC GT SCH ×2 (08:10→17:23)
[2017-01-18] MEDS: LEVETIRACETAM SOL (5 ML) 100 MG/ML UDC GT SCH ×2 (08:10→21:35)
[2017-01-18] MEDS: HYDROGEN PEROXIDE 480 ML BOTTLE TP SCH ×2 (15:45→21:35)
[2017-01-18] MEDS: Z GUARD REMEDY 4 OZ OINT TP SCH ×2 (15:45→21:35)
[2017-01-18 19:45] VITALS: BP 113/72
[2017-01-18] MEDS: INSULIN DETEMIR 100 UNIT/ML CARTRIDGE SQ SCH (21:35)
[2017-01-19] MEDS: ALBUTEROL FS 2.5 MG/3 ML VIAL.NEB NEB SCH ×4 (01:12→19:18)
[2017-01-19] MEDS: IPRATROPIUM NEB FS 0.5 MG/2.5 ML AMPUL.NEB NEB SCH ×4 (01:12→19:18)
[2017-01-19] MEDS: PANTOPRAZOLE 40 MG/PACK PACK GT SCH (05:47)
[2017-01-19] MEDS: POLYVINYL ALCOHOL 15 ML BOTTLE EACHEYE SCH ×5 (05:47→23:22)
[2017-01-19] MEDS: BLOOD SUGAR DIAGNOSTIC 1 EACH STRIP IN SCH ×2 (05:47→17:31)
--- NOTE | 2017-01-19 07:51 | NUR ---
Received female sergio pt on mechanical vent. Pt sergio is secure. Vent is plugged into a red outlet, alarms are set and audible, and BVM is at bedside. Addendum: 01/19/17 at 0752 by SHABNAM GROSSMAN RT Amended: Links added.
[2017-01-19 07:58] VITALS: BP 113/69
[2017-01-19] MEDS: GLYCOPYRROLATE 1 MG TABLET GT SCH ×2 (09:28→17:14)
[2017-01-19] MEDS: DOCUSATE SODIUM LIQ 100 MG/10 ML UDC GT SCH ×2 (09:28→17:14)
[2017-01-19] MEDS: FERROUS SULFATE - FOR SA ONLY 330 MG/7.5 ML UDC GT SCH ×3 (09:28→17:14)
[2017-01-19] MEDS: BACLOFEN (10 MG) 10 MG TABLET GT SCH ×3 (09:29→17:14)
[2017-01-19] MEDS: MVI/MINERALS LIQUID (CEROVITE) GT SCH (09:29)
[2017-01-19] MEDS: LEVETIRACETAM SOL (5 ML) 100 MG/ML UDC GT SCH ×2 (09:29→20:25)
[2017-01-19] MEDS: POTASSIUM CHLORIDE 20 MEQ POWDER PACKET GT SCH (09:29)
[2017-01-19] MEDS: ASCORBIC ACID 500 MG TABLET GT SCH ×2 (09:29→17:14)
[2017-01-19] MEDS: Z GUARD REMEDY 4 OZ OINT TP SCH ×2 (09:29→20:25)
[2017-01-19] MEDS: HYDROGEN PEROXIDE 480 ML BOTTLE TP SCH ×2 (09:29→20:25)
[2017-01-19] MEDS: INSULIN LISPRO/ASPART 100 UNIT/ML CARTRIDGE SQ PRN (17:31)
[2017-01-19 20:14] VITALS: BP 100/58
[2017-01-19] MEDS: INSULIN DETEMIR 100 UNIT/ML CARTRIDGE SQ SCH (21:55)
[2017-01-20] MEDS: ALBUTEROL FS 2.5 MG/3 ML VIAL.NEB NEB SCH ×4 (00:47→19:57)
[2017-01-20] MEDS: IPRATROPIUM NEB FS 0.5 MG/2.5 ML AMPUL.NEB NEB SCH ×4 (00:47→19:57)
[2017-01-20] MEDS: GLYTROL 1,000 ML BAG GT PRN ×2 (01:07→22:16)
[2017-01-20] MEDS: POLYVINYL ALCOHOL 15 ML BOTTLE EACHEYE SCH ×3 (05:20→17:06)
[2017-01-20] MEDS: PANTOPRAZOLE 40 MG/PACK PACK GT SCH (05:20)
[2017-01-20] MEDS: BLOOD SUGAR DIAGNOSTIC 1 EACH STRIP IN SCH ×2 (05:48→17:06)
[2017-01-20 07:24] VITALS: BP 116/76
[2017-01-20] MEDS: BACLOFEN (10 MG) 10 MG TABLET GT SCH ×3 (08:49→17:06)
[2017-01-20] MEDS: MVI/MINERALS LIQUID (CEROVITE) GT SCH (08:49)
[2017-01-20] MEDS: DOCUSATE SODIUM LIQ 100 MG/10 ML UDC GT SCH ×2 (08:49→17:06)
[2017-01-20] MEDS: HYDROGEN PEROXIDE 480 ML BOTTLE TP SCH ×2 (08:49→21:14)
[2017-01-20] MEDS: LEVETIRACETAM SOL (5 ML) 100 MG/ML UDC GT SCH ×2 (08:49→21:14)
[2017-01-20] MEDS: FERROUS SULFATE - FOR SA ONLY 330 MG/7.5 ML UDC GT SCH ×3 (08:49→17:06)
[2017-01-20] MEDS: POTASSIUM CHLORIDE 20 MEQ POWDER PACKET GT SCH (08:49)
[2017-01-20] MEDS: GLYCOPYRROLATE 1 MG TABLET GT SCH ×2 (08:49→17:06)
[2017-01-20] MEDS: ASCORBIC ACID 500 MG TABLET GT SCH ×2 (08:49→17:06)
[2017-01-20] MEDS: Z GUARD REMEDY 4 OZ OINT TP SCH ×2 (08:49→21:14)
[2017-01-20 20:06] VITALS: BP 105/80
[2017-01-20] MEDS: INSULIN DETEMIR 100 UNIT/ML CARTRIDGE SQ SCH (21:15)
[2017-01-21] MEDS: IPRATROPIUM NEB FS 0.5 MG/2.5 ML AMPUL.NEB NEB SCH ×4 (02:09→19:20)
[2017-01-21] MEDS: ALBUTEROL FS 2.5 MG/3 ML VIAL.NEB NEB SCH ×4 (02:09→19:20)
[2017-01-21] MEDS: POLYVINYL ALCOHOL 15 ML BOTTLE EACHEYE SCH ×4 (05:26→17:32)
[2017-01-21] MEDS: PANTOPRAZOLE 40 MG/PACK PACK GT SCH (05:26)
[2017-01-21] MEDS: INSULIN LISPRO/ASPART 100 UNIT/ML CARTRIDGE SQ PRN (05:26)
[2017-01-21] MEDS: BLOOD SUGAR DIAGNOSTIC 1 EACH STRIP IN SCH ×2 (05:26→17:32)
[2017-01-21 07:44] VITALS: BP 118/71
[2017-01-21] MEDS: POLYETHYLENE GLYCOL 3350 17 GM POWD.PACK GT PRN (08:30)
[2017-01-21] MEDS: HYDROGEN PEROXIDE 480 ML BOTTLE TP SCH ×2 (08:32→20:14)
[2017-01-21] MEDS: GLYCOPYRROLATE 1 MG TABLET GT SCH ×2 (08:32→17:32)
[2017-01-21] MEDS: Z GUARD REMEDY 4 OZ OINT TP SCH ×2 (08:32→20:14)
[2017-01-21] MEDS: LEVETIRACETAM SOL (5 ML) 100 MG/ML UDC GT SCH ×2 (08:32→20:14)
[2017-01-21] MEDS: DOCUSATE SODIUM LIQ 100 MG/10 ML UDC GT SCH ×2 (08:32→17:32)
[2017-01-21] MEDS: BACLOFEN (10 MG) 10 MG TABLET GT SCH ×3 (08:32→17:33)
[2017-01-21] MEDS: MVI/MINERALS LIQUID (CEROVITE) GT SCH (08:32)
[2017-01-21] MEDS: ASCORBIC ACID 500 MG TABLET GT SCH ×2 (08:32→17:32)
[2017-01-21] MEDS: FERROUS SULFATE - FOR SA ONLY 330 MG/7.5 ML UDC GT SCH ×3 (08:32→17:32)
[2017-01-21] MEDS: POTASSIUM CHLORIDE 20 MEQ POWDER PACKET GT SCH (08:32)
[2017-01-21] MEDS: HYDROCORTISONE 1% CREAM 28.35 GM TUBE TP SCH ×2 (12:09→20:14)
[2017-01-21] MEDS: BISACODYL SUPP (10 MG) 10 MG/SUPP.RECT SUPP.RECT RC PRN (18:13)
[2017-01-21] MEDS: GLYTROL 1,000 ML BAG GT PRN (19:27)
[2017-01-21 20:07] VITALS: BP 103/62
[2017-01-21] MEDS: INSULIN DETEMIR 100 UNIT/ML CARTRIDGE SQ SCH (21:26)
[2017-01-22] MEDS: POLYVINYL ALCOHOL 15 ML BOTTLE EACHEYE SCH ×4 (00:41→17:19)
[2017-01-22] MEDS: IPRATROPIUM NEB FS 0.5 MG/2.5 ML AMPUL.NEB NEB SCH ×4 (01:08→19:34)
[2017-01-22] MEDS: ALBUTEROL FS 2.5 MG/3 ML VIAL.NEB NEB SCH ×4 (01:08→19:34)
[2017-01-22] MEDS: BLOOD SUGAR DIAGNOSTIC 1 EACH STRIP IN SCH ×2 (05:44→17:19)
[2017-01-22] MEDS: INSULIN LISPRO/ASPART 100 UNIT/ML CARTRIDGE SQ PRN (05:44)
[2017-01-22] MEDS: PANTOPRAZOLE 40 MG/PACK PACK GT SCH (05:44)
[2017-01-22 07:51] VITALS: BP 110/62
[2017-01-22] MEDS: BACLOFEN (10 MG) 10 MG TABLET GT SCH ×3 (09:40→17:19)
[2017-01-22] MEDS: GLYCOPYRROLATE 1 MG TABLET GT SCH ×2 (09:40→17:19)
[2017-01-22] MEDS: DOCUSATE SODIUM LIQ 100 MG/10 ML UDC GT SCH ×2 (09:40→17:19)
[2017-01-22] MEDS: ASCORBIC ACID 500 MG TABLET GT SCH ×2 (09:40→17:19)
[2017-01-22] MEDS: POTASSIUM CHLORIDE 20 MEQ POWDER PACKET GT SCH (09:40)
[2017-01-22] MEDS: MVI/MINERALS LIQUID (CEROVITE) GT SCH (09:40)
[2017-01-22] MEDS: LEVETIRACETAM SOL (5 ML) 100 MG/ML UDC GT SCH ×2 (09:40→20:44)
[2017-01-22] MEDS: FERROUS SULFATE - FOR SA ONLY 330 MG/7.5 ML UDC GT SCH ×3 (09:40→17:19)
[2017-01-22] MEDS: HYDROCORTISONE 1% CREAM 28.35 GM TUBE TP SCH ×2 (11:15→20:44)
[2017-01-22] MEDS: Z GUARD REMEDY 4 OZ OINT TP SCH ×2 (11:15→20:44)
[2017-01-22] MEDS: HYDROGEN PEROXIDE 480 ML BOTTLE TP SCH ×2 (11:15→20:44)
[2017-01-22] MEDS: GLYTROL 1,000 ML BAG GT PRN (18:10)
[2017-01-22] MEDS: INSULIN DETEMIR 100 UNIT/ML CARTRIDGE SQ SCH (21:26)
[2017-01-22 21:32] VITALS: BP 119/73
[2017-01-23] MEDS: POLYVINYL ALCOHOL 15 ML BOTTLE EACHEYE SCH ×4 (00:08→17:39)
[2017-01-23] MEDS: IPRATROPIUM NEB FS 0.5 MG/2.5 ML AMPUL.NEB NEB SCH ×4 (01:03→19:52)
[2017-01-23] MEDS: ALBUTEROL FS 2.5 MG/3 ML VIAL.NEB NEB SCH ×4 (01:03→19:52)
[2017-01-23] MEDS: BLOOD SUGAR DIAGNOSTIC 1 EACH STRIP IN SCH ×2 (06:04→17:38)
[2017-01-23] MEDS: PANTOPRAZOLE 40 MG/PACK PACK GT SCH (06:04)
[2017-01-23] MEDS: INSULIN LISPRO/ASPART 100 UNIT/ML CARTRIDGE SQ PRN (06:05)
[2017-01-23 07:54] VITALS: BP 119/68
[2017-01-23] MEDS: POTASSIUM CHLORIDE 20 MEQ POWDER PACKET GT SCH (08:44)
[2017-01-23] MEDS: GLYCOPYRROLATE 1 MG TABLET GT SCH ×2 (08:44→16:14)
[2017-01-23] MEDS: BACLOFEN (10 MG) 10 MG TABLET GT SCH ×3 (08:44→16:14)
[2017-01-23] MEDS: LEVETIRACETAM SOL (5 ML) 100 MG/ML UDC GT SCH ×2 (08:44→21:07)
[2017-01-23] MEDS: ASCORBIC ACID 500 MG TABLET GT SCH ×2 (08:44→16:15)
[2017-01-23] MEDS: DOCUSATE SODIUM LIQ 100 MG/10 ML UDC GT SCH ×2 (08:44→16:14)
[2017-01-23] MEDS: FERROUS SULFATE - FOR SA ONLY 330 MG/7.5 ML UDC GT SCH ×3 (08:44→16:14)
[2017-01-23] MEDS: MVI/MINERALS LIQUID (CEROVITE) GT SCH (08:44)
[2017-01-23] MEDS: HYDROCORTISONE 1% CREAM 28.35 GM TUBE TP SCH ×2 (09:44→21:07)
[2017-01-23] MEDS: HYDROGEN PEROXIDE 480 ML BOTTLE TP SCH ×2 (09:44→21:07)
[2017-01-23] MEDS: Z GUARD REMEDY 4 OZ OINT TP SCH ×2 (09:44→21:07)
[2017-01-23 20:10] VITALS: BP 117/57
[2017-01-23] MEDS: INSULIN DETEMIR 100 UNIT/ML CARTRIDGE SQ SCH (21:08)
[2017-01-24] MEDS: POLYVINYL ALCOHOL 15 ML BOTTLE EACHEYE SCH ×4 (00:55→17:35)
[2017-01-24] MEDS: ALBUTEROL FS 2.5 MG/3 ML VIAL.NEB NEB SCH ×4 (01:18→19:54)
[2017-01-24] MEDS: IPRATROPIUM NEB FS 0.5 MG/2.5 ML AMPUL.NEB NEB SCH ×4 (01:18→19:54)
[2017-01-24] MEDS: PANTOPRAZOLE 40 MG/PACK PACK GT SCH (05:29)
[2017-01-24] MEDS: BLOOD SUGAR DIAGNOSTIC 1 EACH STRIP IN SCH ×2 (05:29→18:43)
[2017-01-24 08:03] VITALS: BP 118/71
[2017-01-24] MEDS: GLYCOPYRROLATE 1 MG TABLET GT SCH ×2 (08:20→16:36)
[2017-01-24] MEDS: FERROUS SULFATE - FOR SA ONLY 330 MG/7.5 ML UDC GT SCH ×3 (08:20→16:36)
[2017-01-24] MEDS: LEVETIRACETAM SOL (5 ML) 100 MG/ML UDC GT SCH ×2 (08:20→21:07)
[2017-01-24] MEDS: BACLOFEN (10 MG) 10 MG TABLET GT SCH ×3 (08:20→16:36)
[2017-01-24] MEDS: MVI/MINERALS LIQUID (CEROVITE) GT SCH (08:20)
[2017-01-24] MEDS: POTASSIUM CHLORIDE 20 MEQ POWDER PACKET GT SCH (08:20)
[2017-01-24] MEDS: ASCORBIC ACID 500 MG TABLET GT SCH ×2 (08:20→16:36)
[2017-01-24] MEDS: DOCUSATE SODIUM LIQ 100 MG/10 ML UDC GT SCH ×2 (08:20→16:36)
[2017-01-24] MEDS: Z GUARD REMEDY 4 OZ OINT TP SCH ×2 (16:00→21:07)
[2017-01-24] MEDS: HYDROCORTISONE 1% CREAM 28.35 GM TUBE TP SCH ×2 (16:00→21:07)
[2017-01-24] MEDS: HYDROGEN PEROXIDE 480 ML BOTTLE TP SCH ×2 (16:00→21:07)
[2017-01-24] MEDS: GLYTROL 1,000 ML BAG GT PRN (16:09)
[2017-01-24 20:02] VITALS: BP 106/71
[2017-01-24] MEDS: INSULIN DETEMIR 100 UNIT/ML CARTRIDGE SQ SCH (21:07)
[2017-01-25] MEDS: POLYVINYL ALCOHOL 15 ML BOTTLE EACHEYE SCH ×4 (00:10→17:47)
[2017-01-25] MEDS: IPRATROPIUM NEB FS 0.5 MG/2.5 ML AMPUL.NEB NEB SCH ×4 (01:50→20:11)
[2017-01-25] MEDS: ALBUTEROL FS 2.5 MG/3 ML VIAL.NEB NEB SCH ×4 (01:50→20:11)
[2017-01-25] MEDS: PANTOPRAZOLE 40 MG/PACK PACK GT SCH (05:35)
[2017-01-25] MEDS: BLOOD SUGAR DIAGNOSTIC 1 EACH STRIP IN SCH ×2 (05:35→17:47)
[2017-01-25 08:21] VITALS: BP 102/66
[2017-01-25] MEDS: GLYCOPYRROLATE 1 MG TABLET GT SCH ×2 (09:00→16:12)
[2017-01-25] MEDS: POTASSIUM CHLORIDE 20 MEQ POWDER PACKET GT SCH (09:00)
[2017-01-25] MEDS: FERROUS SULFATE - FOR SA ONLY 330 MG/7.5 ML UDC GT SCH ×3 (09:00→16:10)
[2017-01-25] MEDS: DOCUSATE SODIUM LIQ 100 MG/10 ML UDC GT SCH ×2 (09:00→16:10)
[2017-01-25] MEDS: ASCORBIC ACID 500 MG TABLET GT SCH ×2 (09:00→16:11)
[2017-01-25] MEDS: LEVETIRACETAM SOL (5 ML) 100 MG/ML UDC GT SCH ×2 (09:00→21:05)
[2017-01-25] MEDS: BACLOFEN (10 MG) 10 MG TABLET GT SCH ×3 (09:00→16:12)
[2017-01-25] MEDS: MVI/MINERALS LIQUID (CEROVITE) GT SCH (09:00)
--- NOTE | 2017-01-25 09:31 | NUR ---
LE for 01/24/17 - Head circumference measured with 57.5cm.
--- NOTE | 2017-01-25 12:21 | NUR ---
Per charge nurse, hot water heater installer Dr Edmond Neal, DPM came to see the resident yesterday.
--- NOTE | 2017-01-25 12:32 | NUR ---
Late entry for 01/24/17 Pt was seen by Dr. Neal. He trimmed pt's toenails. Pt tolerated procedure well.
[2017-01-25] MEDS: HYDROGEN PEROXIDE 480 ML BOTTLE TP SCH ×2 (13:00→21:05)
[2017-01-25] MEDS: Z GUARD REMEDY 4 OZ OINT TP SCH ×2 (13:00→21:05)
[2017-01-25] MEDS: HYDROCORTISONE 1% CREAM 28.35 GM TUBE TP SCH ×2 (13:00→21:05)
[2017-01-25] MEDS: INSULIN LISPRO/ASPART 100 UNIT/ML CARTRIDGE SQ PRN (17:49)
[2017-01-25 20:04] VITALS: BP 126/78
[2017-01-25] MEDS: INSULIN DETEMIR 100 UNIT/ML CARTRIDGE SQ SCH (21:06)
[2017-01-26] MEDS: POLYVINYL ALCOHOL 15 ML BOTTLE EACHEYE SCH ×5 (00:02→23:52)
[2017-01-26] MEDS: ALBUTEROL FS 2.5 MG/3 ML VIAL.NEB NEB SCH ×4 (00:51→20:11)
[2017-01-26] MEDS: IPRATROPIUM NEB FS 0.5 MG/2.5 ML AMPUL.NEB NEB SCH ×4 (00:51→20:11)
[2017-01-26] MEDS: PANTOPRAZOLE 40 MG/PACK PACK GT SCH (05:45)
[2017-01-26] MEDS: BLOOD SUGAR DIAGNOSTIC 1 EACH STRIP IN SCH ×2 (05:45→17:49)
[2017-01-26 08:04] VITALS: BP 116/74
[2017-01-26] MEDS: POTASSIUM CHLORIDE 20 MEQ POWDER PACKET GT SCH (09:18)
[2017-01-26] MEDS: DOCUSATE SODIUM LIQ 100 MG/10 ML UDC GT SCH ×2 (09:18→17:49)
[2017-01-26] MEDS: BACLOFEN (10 MG) 10 MG TABLET GT SCH ×3 (09:18→17:49)
[2017-01-26] MEDS: FERROUS SULFATE - FOR SA ONLY 330 MG/7.5 ML UDC GT SCH ×3 (09:18→17:49)
[2017-01-26] MEDS: GLYCOPYRROLATE 1 MG TABLET GT SCH ×2 (09:18→17:49)
[2017-01-26] MEDS: MVI/MINERALS LIQUID (CEROVITE) GT SCH (09:18)
[2017-01-26] MEDS: LEVETIRACETAM SOL (5 ML) 100 MG/ML UDC GT SCH ×2 (09:18→21:06)
[2017-01-26] MEDS: ASCORBIC ACID 500 MG TABLET GT SCH ×2 (09:18→17:49)
[2017-01-26] MEDS: Z GUARD REMEDY 4 OZ OINT TP SCH ×2 (09:19→21:06)
[2017-01-26] MEDS: HYDROCORTISONE 1% CREAM 28.35 GM TUBE TP SCH ×2 (09:19→21:06)
[2017-01-26] MEDS: HYDROGEN PEROXIDE 480 ML BOTTLE TP SCH ×2 (09:19→21:06)
[2017-01-26] MEDS: GLYTROL 1,000 ML BAG GT PRN (12:59)
[2017-01-26] MEDS: INSULIN LISPRO/ASPART 100 UNIT/ML CARTRIDGE SQ PRN (17:49)
[2017-01-26 19:58] VITALS: BP 96/57
[2017-01-26] MEDS: INSULIN DETEMIR 100 UNIT/ML CARTRIDGE SQ SCH (21:06)
[2017-01-26] MEDS: POLYETHYLENE GLYCOL 3350 17 GM POWD.PACK GT PRN (21:07)
[2017-01-27] MEDS: ALBUTEROL FS 2.5 MG/3 ML VIAL.NEB NEB SCH ×4 (02:07→19:15)
[2017-01-27] MEDS: IPRATROPIUM NEB FS 0.5 MG/2.5 ML AMPUL.NEB NEB SCH ×4 (02:07→19:15)
[2017-01-27] MEDS: PANTOPRAZOLE 40 MG/PACK PACK GT SCH (05:24)
[2017-01-27] MEDS: BLOOD SUGAR DIAGNOSTIC 1 EACH STRIP IN SCH ×2 (05:24→17:12)
[2017-01-27] MEDS: POLYVINYL ALCOHOL 15 ML BOTTLE EACHEYE SCH ×4 (05:24→23:35)
[2017-01-27] MEDS: INSULIN LISPRO/ASPART 100 UNIT/ML CARTRIDGE SQ PRN (05:25)
[2017-01-27 07:55] VITALS: BP 94/63
[2017-01-27] MEDS: LEVETIRACETAM SOL (5 ML) 100 MG/ML UDC GT SCH ×2 (08:45→20:03)
[2017-01-27] MEDS: HYDROGEN PEROXIDE 480 ML BOTTLE TP SCH ×2 (08:45→20:03)
[2017-01-27] MEDS: BACLOFEN (10 MG) 10 MG TABLET GT SCH ×3 (08:45→17:10)
[2017-01-27] MEDS: ASCORBIC ACID 500 MG TABLET GT SCH ×2 (08:45→17:10)
[2017-01-27] MEDS: HYDROCORTISONE 1% CREAM 28.35 GM TUBE TP SCH ×2 (08:45→20:03)
[2017-01-27] MEDS: GLYCOPYRROLATE 1 MG TABLET GT SCH ×2 (08:45→17:10)
[2017-01-27] MEDS: DOCUSATE SODIUM LIQ 100 MG/10 ML UDC GT SCH ×2 (08:45→17:10)
[2017-01-27] MEDS: MVI/MINERALS LIQUID (CEROVITE) GT SCH (08:45)
[2017-01-27] MEDS: POTASSIUM CHLORIDE 20 MEQ POWDER PACKET GT SCH (08:45)
[2017-01-27] MEDS: Z GUARD REMEDY 4 OZ OINT TP SCH ×2 (08:45→20:03)
[2017-01-27] MEDS: FERROUS SULFATE - FOR SA ONLY 330 MG/7.5 ML UDC GT SCH ×3 (08:45→17:10)
[2017-01-27] MEDS: GLYTROL 1,000 ML BAG GT PRN (12:27)
--- NOTE | 2017-01-27 19:19 | NUR ---
Head circumference 58 cm.
[2017-01-27 19:47] VITALS: BP 134/68
[2017-01-27] MEDS: INSULIN DETEMIR 100 UNIT/ML CARTRIDGE SQ SCH (21:16)
[2017-01-28] MEDS: ALBUTEROL FS 2.5 MG/3 ML VIAL.NEB NEB SCH ×4 (01:50→19:29)
[2017-01-28] MEDS: IPRATROPIUM NEB FS 0.5 MG/2.5 ML AMPUL.NEB NEB SCH ×4 (01:50→19:29)
[2017-01-28] MEDS: INSULIN LISPRO/ASPART 100 UNIT/ML CARTRIDGE SQ PRN (05:28)
[2017-01-28] MEDS: POLYVINYL ALCOHOL 15 ML BOTTLE EACHEYE SCH ×3 (05:28→17:14)
[2017-01-28] MEDS: PANTOPRAZOLE 40 MG/PACK PACK GT SCH (05:28)
[2017-01-28] MEDS: BLOOD SUGAR DIAGNOSTIC 1 EACH STRIP IN SCH ×2 (05:28→17:14)
[2017-01-28 07:45] VITALS: BP 116/61
[2017-01-28] MEDS: POTASSIUM CHLORIDE 20 MEQ POWDER PACKET GT SCH (08:46)
[2017-01-28] MEDS: MVI/MINERALS LIQUID (CEROVITE) GT SCH (08:46)
[2017-01-28] MEDS: BACLOFEN (10 MG) 10 MG TABLET GT SCH ×3 (08:46→17:14)
[2017-01-28] MEDS: GLYCOPYRROLATE 1 MG TABLET GT SCH ×2 (08:46→17:14)
[2017-01-28] MEDS: FERROUS SULFATE - FOR SA ONLY 330 MG/7.5 ML UDC GT SCH ×3 (08:46→17:14)
[2017-01-28] MEDS: DOCUSATE SODIUM LIQ 100 MG/10 ML UDC GT SCH ×2 (08:46→17:14)
[2017-01-28] MEDS: ASCORBIC ACID 500 MG TABLET GT SCH ×2 (08:46→17:14)
[2017-01-28] MEDS: LEVETIRACETAM SOL (5 ML) 100 MG/ML UDC GT SCH ×2 (08:46→21:47)
[2017-01-28] MEDS: Z GUARD REMEDY 4 OZ OINT TP SCH ×2 (08:47→21:48)
[2017-01-28] MEDS: HYDROGEN PEROXIDE 480 ML BOTTLE TP SCH ×2 (08:47→21:48)
[2017-01-28] MEDS: GLYTROL 1,000 ML BAG GT PRN (12:38)
[2017-01-28 19:32] VITALS: BP 128/69
[2017-01-28] MEDS: INSULIN DETEMIR 100 UNIT/ML CARTRIDGE SQ SCH (22:13)
[2017-01-29] MEDS: POLYVINYL ALCOHOL 15 ML BOTTLE EACHEYE SCH ×4 (00:33→17:57)
[2017-01-29] MEDS: IPRATROPIUM NEB FS 0.5 MG/2.5 ML AMPUL.NEB NEB SCH ×4 (01:32→19:14)
[2017-01-29] MEDS: ALBUTEROL FS 2.5 MG/3 ML VIAL.NEB NEB SCH ×4 (01:32→19:14)
[2017-01-29] MEDS: BLOOD SUGAR DIAGNOSTIC 1 EACH STRIP IN SCH ×2 (05:33→17:57)
[2017-01-29] MEDS: PANTOPRAZOLE 40 MG/PACK PACK GT SCH (05:33)
[2017-01-29] MEDS: INSULIN LISPRO/ASPART 100 UNIT/ML CARTRIDGE SQ PRN (05:34)
[2017-01-29 07:41] VITALS: BP 116/62
[2017-01-29] MEDS: DOCUSATE SODIUM LIQ 100 MG/10 ML UDC GT SCH ×2 (09:20→16:33)
[2017-01-29] MEDS: LEVETIRACETAM SOL (5 ML) 100 MG/ML UDC GT SCH ×2 (09:20→21:36)
[2017-01-29] MEDS: BACLOFEN (10 MG) 10 MG TABLET GT SCH ×3 (09:20→16:33)
[2017-01-29] MEDS: GLYCOPYRROLATE 1 MG TABLET GT SCH ×2 (09:20→16:33)
[2017-01-29] MEDS: FERROUS SULFATE - FOR SA ONLY 330 MG/7.5 ML UDC GT SCH ×3 (09:20→16:33)
[2017-01-29] MEDS: MVI/MINERALS LIQUID (CEROVITE) GT SCH (09:20)
[2017-01-29] MEDS: POTASSIUM CHLORIDE 20 MEQ POWDER PACKET GT SCH (09:20)
[2017-01-29] MEDS: ASCORBIC ACID 500 MG TABLET GT SCH ×2 (09:21→16:33)
[2017-01-29] MEDS: Z GUARD REMEDY 4 OZ OINT TP SCH ×2 (09:21→21:36)
[2017-01-29] MEDS: HYDROGEN PEROXIDE 480 ML BOTTLE TP SCH ×2 (09:21→21:36)
--- NOTE | 2017-01-29 10:20 | NUR ---
Seen and examined by Dr Bullard with no new order.
[2017-01-29 19:47] VITALS: BP 108/63
[2017-01-29] MEDS: INSULIN DETEMIR 100 UNIT/ML CARTRIDGE SQ SCH (21:37)
[2017-01-30] MEDS: POLYVINYL ALCOHOL 15 ML BOTTLE EACHEYE SCH ×5 (00:50→23:16)
[2017-01-30] MEDS: IPRATROPIUM NEB FS 0.5 MG/2.5 ML AMPUL.NEB NEB SCH ×4 (01:11→19:17)
[2017-01-30] MEDS: ALBUTEROL FS 2.5 MG/3 ML VIAL.NEB NEB SCH ×4 (01:11→19:17)
[2017-01-30] MEDS: GLYTROL 1,000 ML BAG GT PRN ×2 (03:34→21:17)
[2017-01-30] MEDS: PANTOPRAZOLE 40 MG/PACK PACK GT SCH (05:27)
[2017-01-30] MEDS: BLOOD SUGAR DIAGNOSTIC 1 EACH STRIP IN SCH ×2 (05:27→17:26)
[2017-01-30] MEDS: INSULIN LISPRO/ASPART 100 UNIT/ML CARTRIDGE SQ PRN (05:28)
[2017-01-30 08:03] VITALS: BP 109/62
[2017-01-30] MEDS: LEVETIRACETAM SOL (5 ML) 100 MG/ML UDC GT SCH ×2 (08:53→21:16)
[2017-01-30] MEDS: DOCUSATE SODIUM LIQ 100 MG/10 ML UDC GT SCH ×2 (08:53→16:01)
[2017-01-30] MEDS: BACLOFEN (10 MG) 10 MG TABLET GT SCH ×3 (08:53→16:01)
[2017-01-30] MEDS: MVI/MINERALS LIQUID (CEROVITE) GT SCH (08:53)
[2017-01-30] MEDS: GLYCOPYRROLATE 1 MG TABLET GT SCH ×2 (08:53→16:01)
[2017-01-30] MEDS: ASCORBIC ACID 500 MG TABLET GT SCH ×2 (08:53→16:01)
[2017-01-30] MEDS: POTASSIUM CHLORIDE 20 MEQ POWDER PACKET GT SCH (08:53)
[2017-01-30] MEDS: FERROUS SULFATE - FOR SA ONLY 330 MG/7.5 ML UDC GT SCH ×3 (08:53→16:01)
[2017-01-30] MEDS: HYDROGEN PEROXIDE 480 ML BOTTLE TP SCH ×2 (09:30→21:16)
[2017-01-30] MEDS: Z GUARD REMEDY 4 OZ OINT TP SCH ×2 (09:30→21:16)
[2017-01-30 20:09] VITALS: BP 108/72
[2017-01-30] MEDS: INSULIN DETEMIR 100 UNIT/ML CARTRIDGE SQ SCH (21:16)
[2017-01-31] MEDS: ALBUTEROL FS 2.5 MG/3 ML VIAL.NEB NEB SCH ×4 (01:11→19:39)
[2017-01-31] MEDS: IPRATROPIUM NEB FS 0.5 MG/2.5 ML AMPUL.NEB NEB SCH ×4 (01:11→19:39)
[2017-01-31] MEDS: BLOOD SUGAR DIAGNOSTIC 1 EACH STRIP IN SCH ×2 (05:27→18:30)
[2017-01-31] MEDS: PANTOPRAZOLE 40 MG/PACK PACK GT SCH (05:27)
[2017-01-31] MEDS: POLYVINYL ALCOHOL 15 ML BOTTLE EACHEYE SCH ×4 (05:27→23:41)
--- NOTE | 2017-01-31 07:24 | NUR ---
Received female sergio pt on mechanical vent. Pt sergio is secure. Vent is plugged into a red outlet, alarms are set and audible, BVM is at bedside. Addendum: 01/31/17 at 0725 by SHABNAM GROSSMAN RT Amended: Links added.
[2017-01-31 08:00] VITALS: BP 102/63
[2017-01-31] MEDS: ASCORBIC ACID 500 MG TABLET GT SCH ×2 (08:55→17:52)
[2017-01-31] MEDS: FERROUS SULFATE - FOR SA ONLY 330 MG/7.5 ML UDC GT SCH ×3 (08:55→17:52)
[2017-01-31] MEDS: BACLOFEN (10 MG) 10 MG TABLET GT SCH ×3 (08:55→17:52)
[2017-01-31] MEDS: POTASSIUM CHLORIDE 20 MEQ POWDER PACKET GT SCH (08:55)
[2017-01-31] MEDS: LEVETIRACETAM SOL (5 ML) 100 MG/ML UDC GT SCH ×2 (08:55→21:06)
[2017-01-31] MEDS: GLYCOPYRROLATE 1 MG TABLET GT SCH ×2 (08:55→17:52)
[2017-01-31] MEDS: MVI/MINERALS LIQUID (CEROVITE) GT SCH (08:55)
[2017-01-31] MEDS: HYDROGEN PEROXIDE 480 ML BOTTLE TP SCH ×2 (08:55→21:07)
[2017-01-31] MEDS: DOCUSATE SODIUM LIQ 100 MG/10 ML UDC GT SCH ×2 (08:55→17:52)
[2017-01-31] MEDS: Z GUARD REMEDY 4 OZ OINT TP SCH ×2 (08:56→21:07)
[2017-01-31] MEDS: INSULIN LISPRO/ASPART 100 UNIT/ML CARTRIDGE SQ PRN (18:30)
[2017-01-31 20:14] VITALS: BP 110/70
[2017-01-31] MEDS: INSULIN DETEMIR 100 UNIT/ML CARTRIDGE SQ SCH (21:07)
[2017-02-01] MEDS: IPRATROPIUM NEB FS 0.5 MG/2.5 ML AMPUL.NEB NEB SCH ×4 (01:35→19:56)
[2017-02-01] MEDS: ALBUTEROL FS 2.5 MG/3 ML VIAL.NEB NEB SCH ×4 (01:35→19:56)
[2017-02-01] MEDS: PANTOPRAZOLE 40 MG/PACK PACK GT SCH (05:53)
[2017-02-01] MEDS: GLYTROL 1,000 ML BAG GT PRN (05:53)
[2017-02-01] MEDS: BLOOD SUGAR DIAGNOSTIC 1 EACH STRIP IN SCH ×2 (05:53→18:24)
[2017-02-01] MEDS: POLYVINYL ALCOHOL 15 ML BOTTLE EACHEYE SCH ×4 (05:53→23:37)
--- NOTE | 2017-02-01 07:29 | NUR ---
Pt received on mechanical vent. Pt trach is secure. Vent is plugged into a red outlet, alarms are set and audible, and BVM is at bedside. Addendum: 02/01/17 at 0730 by SHABNAM GROSSMAN RT Amended: Links added.
[2017-02-01] MEDS: POTASSIUM CHLORIDE 20 MEQ POWDER PACKET GT SCH (09:57)
[2017-02-01] MEDS: ASCORBIC ACID 500 MG TABLET GT SCH ×2 (09:57→17:12)
[2017-02-01] MEDS: HYDROGEN PEROXIDE 480 ML BOTTLE TP SCH ×2 (09:57→21:07)
[2017-02-01] MEDS: Z GUARD REMEDY 4 OZ OINT TP SCH ×2 (09:57→21:07)
[2017-02-01] MEDS: FERROUS SULFATE - FOR SA ONLY 330 MG/7.5 ML UDC GT SCH ×3 (09:57→17:12)
[2017-02-01] MEDS: GLYCOPYRROLATE 1 MG TABLET GT SCH ×2 (09:57→17:12)
[2017-02-01] MEDS: DOCUSATE SODIUM LIQ 100 MG/10 ML UDC GT SCH ×2 (09:57→17:12)
[2017-02-01] MEDS: MVI/MINERALS LIQUID (CEROVITE) GT SCH (09:57)
[2017-02-01] MEDS: BACLOFEN (10 MG) 10 MG TABLET GT SCH ×3 (09:57→17:12)
[2017-02-01] MEDS: LEVETIRACETAM SOL (5 ML) 100 MG/ML UDC GT SCH ×2 (09:57→21:07)
[2017-02-01] MEDS: INSULIN LISPRO/ASPART 100 UNIT/ML CARTRIDGE SQ PRN (18:24)
[2017-02-01 19:58] VITALS: BP 110/71
[2017-02-01] MEDS: INSULIN DETEMIR 100 UNIT/ML CARTRIDGE SQ SCH (21:09)
[2017-02-02] MEDS: IPRATROPIUM NEB FS 0.5 MG/2.5 ML AMPUL.NEB NEB SCH ×4 (01:39→19:44)
[2017-02-02] MEDS: ALBUTEROL FS 2.5 MG/3 ML VIAL.NEB NEB SCH ×4 (01:39→19:44)
[2017-02-02] MEDS: POLYVINYL ALCOHOL 15 ML BOTTLE EACHEYE SCH ×3 (05:59→18:42)
[2017-02-02] MEDS: PANTOPRAZOLE 40 MG/PACK PACK GT SCH (05:59)
[2017-02-02] MEDS: BLOOD SUGAR DIAGNOSTIC 1 EACH STRIP IN SCH ×2 (06:00→17:40)
[2017-02-02 08:06] VITALS: BP 115/67
[2017-02-02] MEDS: HYDROGEN PEROXIDE 480 ML BOTTLE TP SCH ×2 (09:00→21:34)
[2017-02-02] MEDS: Z GUARD REMEDY 4 OZ OINT TP SCH ×2 (09:00→21:34)
[2017-02-02] MEDS: GLYCOPYRROLATE 1 MG TABLET GT SCH (09:26)
[2017-02-02] MEDS: FERROUS SULFATE - FOR SA ONLY 330 MG/7.5 ML UDC GT SCH ×3 (09:26→17:00)
[2017-02-02] MEDS: POTASSIUM CHLORIDE 20 MEQ POWDER PACKET GT SCH (09:26)
[2017-02-02] MEDS: DOCUSATE SODIUM LIQ 100 MG/10 ML UDC GT SCH ×2 (09:26→17:00)
[2017-02-02] MEDS: BACLOFEN (10 MG) 10 MG TABLET GT SCH ×2 (09:26→13:27)
[2017-02-02] MEDS: MVI/MINERALS LIQUID (CEROVITE) GT SCH (09:26)
[2017-02-02] MEDS: LEVETIRACETAM SOL (5 ML) 100 MG/ML UDC GT SCH ×2 (09:26→21:59)
[2017-02-02] MEDS: ASCORBIC ACID 500 MG TABLET GT SCH ×2 (09:26→17:00)
[2017-02-02] MEDS: INSULIN LISPRO/ASPART 100 UNIT/ML CARTRIDGE SQ PRN (17:40)
[2017-02-02 20:03] VITALS: BP 100/56
[2017-02-02] MEDS: INSULIN DETEMIR 100 UNIT/ML CARTRIDGE SQ SCH (21:34)
[2017-02-02] MEDS: GLYTROL 1,000 ML BAG GT PRN (23:01)
[2017-02-03] MEDS: POLYVINYL ALCOHOL 15 ML BOTTLE EACHEYE SCH ×4 (00:37→17:22)
[2017-02-03] MEDS: ALBUTEROL FS 2.5 MG/3 ML VIAL.NEB NEB SCH ×4 (01:23→19:57)
[2017-02-03] MEDS: IPRATROPIUM NEB FS 0.5 MG/2.5 ML AMPUL.NEB NEB SCH ×4 (01:23→19:57)
[2017-02-03] MEDS: PANTOPRAZOLE 40 MG/PACK PACK GT SCH (06:19)
[2017-02-03] MEDS: BLOOD SUGAR DIAGNOSTIC 1 EACH STRIP IN SCH ×2 (06:19→17:22)
[2017-02-03] MEDS: INSULIN LISPRO/ASPART 100 UNIT/ML CARTRIDGE SQ PRN (06:19)
[2017-02-03] MEDS: POLYETHYLENE GLYCOL 3350 17 GM POWD.PACK GT PRN ×2 (06:20→19:11)
[2017-02-03 07:42] VITALS: BP 107/74
[2017-02-03] MEDS ORDERED: GLYCOPYRROLATE 1 MG TABLET GT SCH (09:00)
[2017-02-03] MEDS: POTASSIUM CHLORIDE 20 MEQ POWDER PACKET GT SCH (09:15)
[2017-02-03] MEDS: MVI/MINERALS LIQUID (CEROVITE) GT SCH (09:15)
[2017-02-03] MEDS: DOCUSATE SODIUM LIQ 100 MG/10 ML UDC GT SCH ×2 (09:15→17:21)
[2017-02-03] MEDS: HYDROGEN PEROXIDE 480 ML BOTTLE TP SCH ×2 (09:15→21:13)
[2017-02-03] MEDS: ASCORBIC ACID 500 MG TABLET GT SCH ×2 (09:15→17:22)
[2017-02-03] MEDS: BACLOFEN (10 MG) 10 MG TABLET GT SCH ×3 (09:15→17:22)
[2017-02-03] MEDS: LEVETIRACETAM SOL (5 ML) 100 MG/ML UDC GT SCH ×2 (09:15→21:12)
[2017-02-03] MEDS: Z GUARD REMEDY 4 OZ OINT TP SCH ×2 (09:15→21:13)
[2017-02-03] MEDS: FERROUS SULFATE - FOR SA ONLY 330 MG/7.5 ML UDC GT SCH ×3 (09:15→17:21)
[2017-02-03] MEDS ORDERED: BISACODYL SUPP (10 MG) 10 MG/SUPP.RECT SUPP.RECT RC PRN (09:30)
[2017-02-03] MEDS ORDERED: ALBUTEROL FS 2.5 MG/3 ML VIAL.NEB NEB PRN (15:30)
[2017-02-03] MEDS ORDERED: IPRATROPIUM NEB FS 0.5 MG/2.5 ML AMPUL.NEB IH PRN (15:30)
[2017-02-03] MEDS ORDERED: HYDROGEN PEROXIDE 480 ML BOTTLE TP PRN (15:30)
[2017-02-03] MEDS ORDERED: DEXTROSE 50%-WATER 50 ML DISP.SYRIN IV PRN (15:30)
--- NOTE | 2017-02-03 16:30 | NUR ---
Received Glycopyrrolate from [facility] pharmacy. Followed up Glycopyrrolate three times today.
[2017-02-03] MEDS: GLYCOPYRROLATE 1 MG TABLET GT SCH (17:21)
[2017-02-03] MEDS: GLYTROL 1,000 ML BAG GT PRN (19:10)
[2017-02-03 19:57] VITALS: BP 117/73
[2017-02-03] MEDS ORDERED: LEVETIRACETAM SOL (5 ML) 100 MG/ML UDC GT SCH (21:00)
[2017-02-03] MEDS: INSULIN DETEMIR 100 UNIT/ML CARTRIDGE SQ SCH (21:17)
[2017-02-04] MEDS: ALBUTEROL FS 2.5 MG/3 ML VIAL.NEB NEB SCH ×4 (02:31→19:36)
[2017-02-04] MEDS: IPRATROPIUM NEB FS 0.5 MG/2.5 ML AMPUL.NEB NEB SCH ×4 (02:31→19:36)
[2017-02-04] MEDS: POLYVINYL ALCOHOL 15 ML BOTTLE EACHEYE SCH ×5 (05:23→23:27)
[2017-02-04] MEDS: PANTOPRAZOLE 40 MG/PACK PACK GT SCH (05:42)
[2017-02-04] MEDS: INSULIN LISPRO/ASPART 100 UNIT/ML CARTRIDGE SQ PRN (05:42)
[2017-02-04] MEDS: BLOOD SUGAR DIAGNOSTIC 1 EACH STRIP IN SCH ×2 (05:42→17:48)
[2017-02-04] MEDS: BISACODYL SUPP (10 MG) 10 MG/SUPP.RECT SUPP.RECT RC PRN (06:40)
[2017-02-04 07:41] VITALS: BP 136/70
[2017-02-04] MEDS: ASCORBIC ACID 500 MG TABLET GT SCH ×2 (08:41→17:47)
[2017-02-04] MEDS: DOCUSATE SODIUM LIQ 100 MG/10 ML UDC GT SCH ×2 (08:41→17:47)
[2017-02-04] MEDS: BACLOFEN (10 MG) 10 MG TABLET GT SCH ×3 (08:41→17:47)
[2017-02-04] MEDS: FERROUS SULFATE - FOR SA ONLY 330 MG/7.5 ML UDC GT SCH ×3 (08:41→17:47)
[2017-02-04] MEDS: LEVETIRACETAM SOL (5 ML) 100 MG/ML UDC GT SCH ×2 (08:41→21:08)
[2017-02-04] MEDS: GLYCOPYRROLATE 1 MG TABLET GT SCH ×2 (08:41→17:47)
[2017-02-04] MEDS: MVI/MINERALS LIQUID (CEROVITE) GT SCH (08:41)
[2017-02-04] MEDS: POTASSIUM CHLORIDE 20 MEQ POWDER PACKET GT SCH (08:41)
[2017-02-04] MEDS: Z GUARD REMEDY 4 OZ OINT TP SCH ×2 (08:42→21:08)
[2017-02-04] MEDS: HYDROGEN PEROXIDE 480 ML BOTTLE TP SCH ×2 (08:42→21:08)
--- NOTE | 2017-02-04 15:25 | NUR ---
INTERDISCIPLINARY PLAN OF CARE CONFERENCE was held today. Resident is stable and there are no issues per pharmacy and dietary. No new orders were given.
[2017-02-04 20:48] VITALS: BP 110/71
[2017-02-04] MEDS: INSULIN DETEMIR 100 UNIT/ML CARTRIDGE SQ SCH (21:09)
[2017-02-04] MEDS: GLYTROL 1,000 ML BAG GT PRN (23:25)
[2017-02-05] MEDS: ALBUTEROL FS 2.5 MG/3 ML VIAL.NEB NEB SCH ×4 (02:29→19:20)
[2017-02-05] MEDS: IPRATROPIUM NEB FS 0.5 MG/2.5 ML AMPUL.NEB NEB SCH ×4 (02:29→19:20)
[2017-02-05] MEDS: BLOOD SUGAR DIAGNOSTIC 1 EACH STRIP IN SCH ×2 (05:46→17:28)
[2017-02-05] MEDS: POLYVINYL ALCOHOL 15 ML BOTTLE EACHEYE SCH ×3 (05:46→17:28)
[2017-02-05] MEDS: PANTOPRAZOLE 40 MG/PACK PACK GT SCH (05:46)
[2017-02-05] MEDS: INSULIN LISPRO/ASPART 100 UNIT/ML CARTRIDGE SQ PRN ×2 (05:47→17:28)
[2017-02-05 07:58] VITALS: BP 128/68
[2017-02-05] MEDS: GLYCOPYRROLATE 1 MG TABLET GT SCH ×2 (08:52→16:32)
[2017-02-05] MEDS: DOCUSATE SODIUM LIQ 100 MG/10 ML UDC GT SCH ×2 (08:52→16:32)
[2017-02-05] MEDS: LEVETIRACETAM SOL (5 ML) 100 MG/ML UDC GT SCH ×2 (08:52→21:22)
[2017-02-05] MEDS: FERROUS SULFATE - FOR SA ONLY 330 MG/7.5 ML UDC GT SCH ×3 (08:52→16:32)
[2017-02-05] MEDS: POTASSIUM CHLORIDE 20 MEQ POWDER PACKET GT SCH (08:52)
[2017-02-05] MEDS: BACLOFEN (10 MG) 10 MG TABLET GT SCH ×3 (08:52→16:32)
[2017-02-05] MEDS: Z GUARD REMEDY 4 OZ OINT TP SCH ×2 (08:53→21:23)
[2017-02-05] MEDS: HYDROGEN PEROXIDE 480 ML BOTTLE TP SCH ×2 (08:53→21:22)
[2017-02-05] MEDS: MVI/MINERALS LIQUID (CEROVITE) GT SCH (08:53)
[2017-02-05] MEDS: ASCORBIC ACID 500 MG TABLET GT SCH ×2 (08:53→16:32)
[2017-02-05 20:04] VITALS: BP 114/70
[2017-02-05] MEDS: INSULIN DETEMIR 100 UNIT/ML CARTRIDGE SQ SCH (21:24)
[2017-02-06] MEDS: POLYVINYL ALCOHOL 15 ML BOTTLE EACHEYE SCH ×4 (00:14→18:00)
[2017-02-06] MEDS: GLYTROL 1,000 ML BAG GT PRN (00:15)
[2017-02-06] MEDS: IPRATROPIUM NEB FS 0.5 MG/2.5 ML AMPUL.NEB NEB SCH ×4 (01:38→19:27)
[2017-02-06] MEDS: ALBUTEROL FS 2.5 MG/3 ML VIAL.NEB NEB SCH ×4 (01:38→19:27)
[2017-02-06] MEDS: INSULIN LISPRO/ASPART 100 UNIT/ML CARTRIDGE SQ PRN ×2 (05:40→17:53)
[2017-02-06] MEDS: PANTOPRAZOLE 40 MG/PACK PACK GT SCH (05:40)
[2017-02-06] MEDS: BLOOD SUGAR DIAGNOSTIC 1 EACH STRIP IN SCH ×2 (05:40→17:52)
[2017-02-06 07:41] VITALS: BP 128/68
[2017-02-06] MEDS: LEVETIRACETAM SOL (5 ML) 100 MG/ML UDC GT SCH ×2 (09:16→20:21)
[2017-02-06] MEDS: MVI/MINERALS LIQUID (CEROVITE) GT SCH (09:16)
[2017-02-06] MEDS: FERROUS SULFATE - FOR SA ONLY 330 MG/7.5 ML UDC GT SCH ×3 (09:16→17:59)
[2017-02-06] MEDS: Z GUARD REMEDY 4 OZ OINT TP SCH ×2 (09:16→20:22)
[2017-02-06] MEDS: DOCUSATE SODIUM LIQ 100 MG/10 ML UDC GT SCH ×2 (09:16→17:59)
[2017-02-06] MEDS: HYDROGEN PEROXIDE 480 ML BOTTLE TP SCH ×2 (09:16→20:22)
[2017-02-06] MEDS: GLYCOPYRROLATE 1 MG TABLET GT SCH ×2 (09:16→17:59)
[2017-02-06] MEDS: BACLOFEN (10 MG) 10 MG TABLET GT SCH ×3 (09:16→17:59)
[2017-02-06] MEDS: POTASSIUM CHLORIDE 20 MEQ POWDER PACKET GT SCH (09:16)
[2017-02-06] MEDS: ASCORBIC ACID 500 MG TABLET GT SCH ×2 (09:16→17:59)
[2017-02-06 19:53] VITALS: BP 108/74
[2017-02-06] MEDS: INSULIN DETEMIR 100 UNIT/ML CARTRIDGE SQ SCH (22:00)
[2017-02-07] MEDS: POLYVINYL ALCOHOL 15 ML BOTTLE EACHEYE SCH ×4 (00:06→17:46)
[2017-02-07] MEDS: IPRATROPIUM NEB FS 0.5 MG/2.5 ML AMPUL.NEB NEB SCH ×4 (01:34→19:03)
[2017-02-07] MEDS: ALBUTEROL FS 2.5 MG/3 ML VIAL.NEB NEB SCH ×4 (01:34→19:03)
[2017-02-07] MEDS: PANTOPRAZOLE 40 MG/PACK PACK GT SCH (05:11)
[2017-02-07] MEDS: BLOOD SUGAR DIAGNOSTIC 1 EACH STRIP IN SCH ×2 (05:12→17:47)
[2017-02-07 08:00] VITALS: BP 107/73
[2017-02-07] MEDS: FERROUS SULFATE - FOR SA ONLY 330 MG/7.5 ML UDC GT SCH ×3 (09:37→17:46)
[2017-02-07] MEDS: BACLOFEN (10 MG) 10 MG TABLET GT SCH ×3 (09:37→17:46)
[2017-02-07] MEDS: DOCUSATE SODIUM LIQ 100 MG/10 ML UDC GT SCH ×2 (09:37→17:46)
[2017-02-07] MEDS: GLYCOPYRROLATE 1 MG TABLET GT SCH ×2 (09:37→17:46)
[2017-02-07] MEDS: LEVETIRACETAM SOL (5 ML) 100 MG/ML UDC GT SCH ×2 (09:37→20:17)
[2017-02-07] MEDS: Z GUARD REMEDY 4 OZ OINT TP SCH ×2 (09:37→20:19)
[2017-02-07] MEDS: MVI/MINERALS LIQUID (CEROVITE) GT SCH (09:37)
[2017-02-07] MEDS: HYDROGEN PEROXIDE 480 ML BOTTLE TP SCH ×2 (09:37→20:18)
[2017-02-07] MEDS: ASCORBIC ACID 500 MG TABLET GT SCH ×2 (09:37→17:46)
[2017-02-07] MEDS: POTASSIUM CHLORIDE 20 MEQ POWDER PACKET GT SCH (09:37)
[2017-02-07] MEDS: INSULIN LISPRO/ASPART 100 UNIT/ML CARTRIDGE SQ PRN (17:47)
[2017-02-07] MEDS: GLYTROL 1,000 ML BAG GT PRN (17:57)
[2017-02-07 19:47] VITALS: BP 113/77
[2017-02-07] MEDS: INSULIN DETEMIR 100 UNIT/ML CARTRIDGE SQ SCH (22:09)
[2017-02-08] MEDS: POLYVINYL ALCOHOL 15 ML BOTTLE EACHEYE SCH ×5 (00:12→23:51)
[2017-02-08] MEDS: ALBUTEROL FS 2.5 MG/3 ML VIAL.NEB NEB SCH ×4 (02:03→19:53)
[2017-02-08] MEDS: IPRATROPIUM NEB FS 0.5 MG/2.5 ML AMPUL.NEB NEB SCH ×4 (02:03→19:53)
[2017-02-08] MEDS: BLOOD SUGAR DIAGNOSTIC 1 EACH STRIP IN SCH ×2 (05:50→18:00)
[2017-02-08] MEDS: PANTOPRAZOLE 40 MG/PACK PACK GT SCH (05:50)
[2017-02-08 08:00] VITALS: BP 118/75
[2017-02-08] MEDS: DOCUSATE SODIUM LIQ 100 MG/10 ML UDC GT SCH ×2 (08:19→16:24)
[2017-02-08] MEDS: FERROUS SULFATE - FOR SA ONLY 330 MG/7.5 ML UDC GT SCH ×3 (08:19→16:24)
[2017-02-08] MEDS: GLYCOPYRROLATE 1 MG TABLET GT SCH ×2 (08:19→16:24)
[2017-02-08] MEDS: POTASSIUM CHLORIDE 20 MEQ POWDER PACKET GT SCH (08:20)
[2017-02-08] MEDS: ASCORBIC ACID 500 MG TABLET GT SCH ×2 (08:20→16:24)
[2017-02-08] MEDS: LEVETIRACETAM SOL (5 ML) 100 MG/ML UDC GT SCH ×2 (08:20→20:08)
[2017-02-08] MEDS: MVI/MINERALS LIQUID (CEROVITE) GT SCH (08:20)
[2017-02-08] MEDS: BACLOFEN (10 MG) 10 MG TABLET GT SCH ×3 (08:20→16:24)
[2017-02-08] MEDS: Z GUARD REMEDY 4 OZ OINT TP SCH ×2 (09:00→20:08)
[2017-02-08] MEDS: HYDROGEN PEROXIDE 480 ML BOTTLE TP SCH ×2 (09:00→20:08)
[2017-02-08] MEDS: GLYTROL 1,000 ML BAG GT PRN (16:12)
[2017-02-08] MEDS: INSULIN LISPRO/ASPART 100 UNIT/ML CARTRIDGE SQ PRN (19:11)
[2017-02-08 19:45] VITALS: BP 110/64
[2017-02-08] MEDS: INSULIN DETEMIR 100 UNIT/ML CARTRIDGE SQ SCH (22:23)
[2017-02-09] MEDS: IPRATROPIUM NEB FS 0.5 MG/2.5 ML AMPUL.NEB NEB SCH ×4 (01:19→19:33)
[2017-02-09] MEDS: ALBUTEROL FS 2.5 MG/3 ML VIAL.NEB NEB SCH ×4 (01:19→19:33)
[2017-02-09] MEDS: POLYVINYL ALCOHOL 15 ML BOTTLE EACHEYE SCH ×3 (06:05→17:21)
[2017-02-09] MEDS: PANTOPRAZOLE 40 MG/PACK PACK GT SCH (06:05)
[2017-02-09] MEDS: BLOOD SUGAR DIAGNOSTIC 1 EACH STRIP IN SCH ×2 (06:05→18:09)
[2017-02-09] MEDS: POLYETHYLENE GLYCOL 3350 17 GM POWD.PACK GT PRN (06:15)
[2017-02-09 08:14] VITALS: BP 141/73
[2017-02-09] MEDS: Z GUARD REMEDY 4 OZ OINT TP SCH ×2 (08:14→21:06)
[2017-02-09] MEDS: FERROUS SULFATE - FOR SA ONLY 330 MG/7.5 ML UDC GT SCH ×3 (08:14→17:21)
[2017-02-09] MEDS: LEVETIRACETAM SOL (5 ML) 100 MG/ML UDC GT SCH ×2 (08:14→21:06)
[2017-02-09] MEDS: BACLOFEN (10 MG) 10 MG TABLET GT SCH ×3 (08:14→17:21)
[2017-02-09] MEDS: ASCORBIC ACID 500 MG TABLET GT SCH ×2 (08:14→17:21)
[2017-02-09] MEDS: GLYCOPYRROLATE 1 MG TABLET GT SCH ×2 (08:14→17:21)
[2017-02-09] MEDS: MVI/MINERALS LIQUID (CEROVITE) GT SCH (08:14)
[2017-02-09] MEDS: HYDROGEN PEROXIDE 480 ML BOTTLE TP SCH ×2 (08:14→21:06)
[2017-02-09] MEDS: POTASSIUM CHLORIDE 20 MEQ POWDER PACKET GT SCH (08:14)
[2017-02-09] MEDS: DOCUSATE SODIUM LIQ 100 MG/10 ML UDC GT SCH ×2 (08:14→17:21)
[2017-02-09] MEDS: GLYTROL 1,000 ML BAG GT PRN (12:37)
[2017-02-09 19:52] VITALS: BP 113/63
[2017-02-09] MEDS: INSULIN DETEMIR 100 UNIT/ML CARTRIDGE SQ SCH (21:07)
[2017-02-10] MEDS: POLYVINYL ALCOHOL 15 ML BOTTLE EACHEYE SCH ×4 (00:11→18:24)
[2017-02-10] MEDS: IPRATROPIUM NEB FS 0.5 MG/2.5 ML AMPUL.NEB NEB SCH ×4 (02:19→19:49)
[2017-02-10] MEDS: ALBUTEROL FS 2.5 MG/3 ML VIAL.NEB NEB SCH ×4 (02:19→19:49)
[2017-02-10] MEDS: PANTOPRAZOLE 40 MG/PACK PACK GT SCH (05:41)
[2017-02-10] MEDS: BLOOD SUGAR DIAGNOSTIC 1 EACH STRIP IN SCH ×2 (05:41→18:24)
[2017-02-10] MEDS: INSULIN LISPRO/ASPART 100 UNIT/ML CARTRIDGE SQ PRN (05:42)
[2017-02-10 07:15] VITALS: BP 115/71
[2017-02-10] MEDS: POTASSIUM CHLORIDE 20 MEQ POWDER PACKET GT SCH (09:04)
[2017-02-10] MEDS: HYDROGEN PEROXIDE 480 ML BOTTLE TP SCH ×2 (09:04→21:22)
[2017-02-10] MEDS: DOCUSATE SODIUM LIQ 100 MG/10 ML UDC GT SCH ×2 (09:04→17:00)
[2017-02-10] MEDS: Z GUARD REMEDY 4 OZ OINT TP SCH ×2 (09:04→21:22)
[2017-02-10] MEDS: FERROUS SULFATE - FOR SA ONLY 330 MG/7.5 ML UDC GT SCH ×3 (09:04→17:00)
[2017-02-10] MEDS: ASCORBIC ACID 500 MG TABLET GT SCH ×2 (09:04→17:00)
[2017-02-10] MEDS: GLYCOPYRROLATE 1 MG TABLET GT SCH ×2 (09:04→17:00)
[2017-02-10] MEDS: MVI/MINERALS LIQUID (CEROVITE) GT SCH (09:04)
[2017-02-10] MEDS: LEVETIRACETAM SOL (5 ML) 100 MG/ML UDC GT SCH ×2 (09:04→20:47)
[2017-02-10] MEDS: BACLOFEN (10 MG) 10 MG TABLET GT SCH ×3 (09:04→17:00)
--- NOTE | 2017-02-10 18:56 | NUR ---
Head circumference 58 cm.
[2017-02-10 20:05] VITALS: BP 126/80
[2017-02-10] MEDS: POLYETHYLENE GLYCOL 3350 17 GM POWD.PACK GT PRN (20:48)
[2017-02-10] MEDS: INSULIN DETEMIR 100 UNIT/ML CARTRIDGE SQ SCH (21:23)
[2017-02-11] MEDS: POLYVINYL ALCOHOL 15 ML BOTTLE EACHEYE SCH ×4 (00:12→18:20)
[2017-02-11] MEDS: ALBUTEROL FS 2.5 MG/3 ML VIAL.NEB NEB SCH ×4 (01:42→20:19)
[2017-02-11] MEDS: IPRATROPIUM NEB FS 0.5 MG/2.5 ML AMPUL.NEB NEB SCH ×4 (01:42→20:18)
[2017-02-11] MEDS: GLYTROL 1,000 ML BAG GT PRN (01:55)
[2017-02-11] MEDS: INSULIN LISPRO/ASPART 100 UNIT/ML CARTRIDGE SQ PRN (05:32)
[2017-02-11] MEDS: BLOOD SUGAR DIAGNOSTIC 1 EACH STRIP IN SCH ×2 (05:32→18:40)
[2017-02-11] MEDS: PANTOPRAZOLE 40 MG/PACK PACK GT SCH (05:32)
[2017-02-11 08:01] VITALS: BP 115/77
[2017-02-11] MEDS: LEVETIRACETAM SOL (5 ML) 100 MG/ML UDC GT SCH ×2 (09:00→21:20)
[2017-02-11] MEDS: POTASSIUM CHLORIDE 20 MEQ POWDER PACKET GT SCH (09:00)
[2017-02-11] MEDS: ASCORBIC ACID 500 MG TABLET GT SCH ×2 (09:00→17:00)
[2017-02-11] MEDS: FERROUS SULFATE - FOR SA ONLY 330 MG/7.5 ML UDC GT SCH ×3 (09:00→17:00)
[2017-02-11] MEDS: Z GUARD REMEDY 4 OZ OINT TP SCH ×2 (09:00→21:20)
[2017-02-11] MEDS: GLYCOPYRROLATE 1 MG TABLET GT SCH ×2 (09:00→17:00)
[2017-02-11] MEDS: MVI/MINERALS LIQUID (CEROVITE) GT SCH (09:00)
[2017-02-11] MEDS: DOCUSATE SODIUM LIQ 100 MG/10 ML UDC GT SCH ×2 (09:00→17:00)
[2017-02-11] MEDS: BACLOFEN (10 MG) 10 MG TABLET GT SCH ×3 (09:00→17:00)
[2017-02-11] MEDS: HYDROGEN PEROXIDE 480 ML BOTTLE TP SCH ×2 (09:00→21:20)
--- NOTE | 2017-02-11 10:01 | NUR ---
RT PT IS AWAKE BUT DOES NOT FOLLOW COMMANDS. MONTHLY TRACH CHANGE DONE WITH A NEW SHILEY 6 CUFFED WITH NO COMPLICATIONS. PT PLACED BACK ON VENTILATOR. EQUAL BILATERAL BREATHE SOUNDS AND CHEST RISE. MINIMAL BLEEDING AT TRACH SITE. NUT PACKER CUFF PRESSURE NOTED. NO RESPIRATORY DISTRESS NOTED AT THIS TIME, WILL CONTINUE TO MONITOR. Addendum: 02/11/17 at 1643 by SAE ERNST RT Amended: Links added.
[2017-02-11] MEDS: ACETAMINOPHEN 650 MG/20 ML UDC- FOR SA PATIENTS ONLY GT PRN (10:18)
[2017-02-11] MEDS: BISACODYL SUPP (10 MG) 10 MG/SUPP.RECT SUPP.RECT RC PRN (18:40)
[2017-02-11 19:21] VITALS: BP 107/71
[2017-02-11] MEDS: INSULIN DETEMIR 100 UNIT/ML CARTRIDGE SQ SCH (21:21)
[2017-02-12] MEDS: POLYVINYL ALCOHOL 15 ML BOTTLE EACHEYE SCH ×5 (00:19→23:10)
[2017-02-12] MEDS: IPRATROPIUM NEB FS 0.5 MG/2.5 ML AMPUL.NEB NEB SCH ×4 (01:10→19:05)
[2017-02-12] MEDS: ALBUTEROL FS 2.5 MG/3 ML VIAL.NEB NEB SCH ×4 (01:10→19:05)
[2017-02-12] MEDS: BLOOD SUGAR DIAGNOSTIC 1 EACH STRIP IN SCH ×2 (05:29→17:48)
[2017-02-12] MEDS: PANTOPRAZOLE 40 MG/PACK PACK GT SCH (05:29)
[2017-02-12] MEDS: GLYTROL 1,000 ML BAG GT PRN ×2 (05:30→22:58)
[2017-02-12] MEDS: INSULIN LISPRO/ASPART 100 UNIT/ML CARTRIDGE SQ PRN (05:30)
[2017-02-12 07:27] VITALS: BP 109/71
[2017-02-12] MEDS: LEVETIRACETAM SOL (5 ML) 100 MG/ML UDC GT SCH ×2 (09:00→20:57)
[2017-02-12] MEDS: BACLOFEN (10 MG) 10 MG TABLET GT SCH ×3 (09:00→17:48)
[2017-02-12] MEDS: Z GUARD REMEDY 4 OZ OINT TP SCH ×2 (09:00→20:57)
[2017-02-12] MEDS: POTASSIUM CHLORIDE 20 MEQ POWDER PACKET GT SCH (09:00)
[2017-02-12] MEDS: MVI/MINERALS LIQUID (CEROVITE) GT SCH (09:00)
[2017-02-12] MEDS: GLYCOPYRROLATE 1 MG TABLET GT SCH ×2 (09:00→17:48)
[2017-02-12] MEDS: HYDROGEN PEROXIDE 480 ML BOTTLE TP SCH ×2 (09:00→20:57)
[2017-02-12] MEDS: ASCORBIC ACID 500 MG TABLET GT SCH ×2 (09:00→17:48)
[2017-02-12] MEDS: FERROUS SULFATE - FOR SA ONLY 330 MG/7.5 ML UDC GT SCH ×3 (09:00→17:48)
[2017-02-12] MEDS: DOCUSATE SODIUM LIQ 100 MG/10 ML UDC GT SCH ×2 (09:00→17:48)
[2017-02-12 19:54] VITALS: BP 134/70
[2017-02-12] MEDS: INSULIN DETEMIR 100 UNIT/ML CARTRIDGE SQ SCH (21:30)
[2017-02-13] MEDS: ALBUTEROL FS 2.5 MG/3 ML VIAL.NEB NEB SCH ×4 (01:23→19:28)
[2017-02-13] MEDS: IPRATROPIUM NEB FS 0.5 MG/2.5 ML AMPUL.NEB NEB SCH ×4 (01:23→19:28)
[2017-02-13] MEDS: PANTOPRAZOLE 40 MG/PACK PACK GT SCH (05:29)
[2017-02-13] MEDS: INSULIN LISPRO/ASPART 100 UNIT/ML CARTRIDGE SQ PRN (05:29)
[2017-02-13] MEDS: POLYVINYL ALCOHOL 15 ML BOTTLE EACHEYE SCH ×3 (05:29→17:05)
[2017-02-13] MEDS: BLOOD SUGAR DIAGNOSTIC 1 EACH STRIP IN SCH ×2 (05:29→17:59)
[2017-02-13 07:39] VITALS: BP 114/56
[2017-02-13] MEDS: GLYCOPYRROLATE 1 MG TABLET GT SCH ×2 (08:40→17:05)
[2017-02-13] MEDS: FERROUS SULFATE - FOR SA ONLY 330 MG/7.5 ML UDC GT SCH ×3 (08:40→17:05)
[2017-02-13] MEDS: POTASSIUM CHLORIDE 20 MEQ POWDER PACKET GT SCH (08:40)
[2017-02-13] MEDS: ASCORBIC ACID 500 MG TABLET GT SCH ×2 (08:40→17:05)
[2017-02-13] MEDS: Z GUARD REMEDY 4 OZ OINT TP SCH ×2 (08:40→21:15)
[2017-02-13] MEDS: BACLOFEN (10 MG) 10 MG TABLET GT SCH ×3 (08:40→17:05)
[2017-02-13] MEDS: DOCUSATE SODIUM LIQ 100 MG/10 ML UDC GT SCH ×2 (08:40→17:05)
[2017-02-13] MEDS: MVI/MINERALS LIQUID (CEROVITE) GT SCH (08:40)
[2017-02-13] MEDS: LEVETIRACETAM SOL (5 ML) 100 MG/ML UDC GT SCH ×2 (08:40→21:15)
[2017-02-13] MEDS: HYDROGEN PEROXIDE 480 ML BOTTLE TP SCH ×2 (08:40→21:15)
[2017-02-13 19:49] VITALS: BP 102/68
[2017-02-13] MEDS: INSULIN DETEMIR 100 UNIT/ML CARTRIDGE SQ SCH (21:16)
[2017-02-13] MEDS: GLYTROL 1,000 ML BAG GT PRN (22:46)
[2017-02-14] MEDS: ALBUTEROL FS 2.5 MG/3 ML VIAL.NEB NEB SCH ×4 (01:16→19:57)
[2017-02-14] MEDS: IPRATROPIUM NEB FS 0.5 MG/2.5 ML AMPUL.NEB NEB SCH ×4 (01:16→19:57)
[2017-02-14] MEDS: INSULIN LISPRO/ASPART 100 UNIT/ML CARTRIDGE SQ PRN ×2 (05:34→18:29)
[2017-02-14] MEDS: PANTOPRAZOLE 40 MG/PACK PACK GT SCH (05:34)
[2017-02-14] MEDS: POLYVINYL ALCOHOL 15 ML BOTTLE EACHEYE SCH ×4 (05:34→18:22)
[2017-02-14] MEDS: BLOOD SUGAR DIAGNOSTIC 1 EACH STRIP IN SCH ×2 (05:34→18:28)
[2017-02-14] MEDS: POLYETHYLENE GLYCOL 3350 17 GM POWD.PACK GT PRN (06:55)
[2017-02-14 07:32] VITALS: BP 109/69
[2017-02-14] MEDS: MVI/MINERALS LIQUID (CEROVITE) GT SCH (08:22)
[2017-02-14] MEDS: FERROUS SULFATE - FOR SA ONLY 330 MG/7.5 ML UDC GT SCH ×3 (08:22→17:00)
[2017-02-14] MEDS: ASCORBIC ACID 500 MG TABLET GT SCH ×2 (08:22→17:00)
[2017-02-14] MEDS: DOCUSATE SODIUM LIQ 100 MG/10 ML UDC GT SCH ×2 (08:22→17:00)
[2017-02-14] MEDS: GLYCOPYRROLATE 1 MG TABLET GT SCH ×2 (08:22→17:00)
[2017-02-14] MEDS: BACLOFEN (10 MG) 10 MG TABLET GT SCH ×3 (08:22→17:00)
[2017-02-14] MEDS: LEVETIRACETAM SOL (5 ML) 100 MG/ML UDC GT SCH ×2 (08:22→20:18)
[2017-02-14] MEDS: POTASSIUM CHLORIDE 20 MEQ POWDER PACKET GT SCH (08:22)
[2017-02-14] MEDS: HYDROGEN PEROXIDE 480 ML BOTTLE TP SCH ×2 (09:00→20:18)
[2017-02-14] MEDS: Z GUARD REMEDY 4 OZ OINT TP SCH ×2 (09:00→20:18)
[2017-02-14 19:53] VITALS: BP 115/76
[2017-02-14] MEDS: GLYTROL 1,000 ML BAG GT PRN (21:27)
[2017-02-14] MEDS: INSULIN DETEMIR 100 UNIT/ML CARTRIDGE SQ SCH (22:10)
[2017-02-15] MEDS: POLYVINYL ALCOHOL 15 ML BOTTLE EACHEYE SCH ×5 (00:10→23:06)
[2017-02-15] MEDS: IPRATROPIUM NEB FS 0.5 MG/2.5 ML AMPUL.NEB NEB SCH ×4 (01:38→19:22)
[2017-02-15] MEDS: ALBUTEROL FS 2.5 MG/3 ML VIAL.NEB NEB SCH ×4 (01:38→19:22)
[2017-02-15] MEDS: BLOOD SUGAR DIAGNOSTIC 1 EACH STRIP IN SCH ×2 (05:58→18:45)
[2017-02-15] MEDS: PANTOPRAZOLE 40 MG/PACK PACK GT SCH (05:58)
[2017-02-15 07:55] VITALS: BP 116/79
[2017-02-15] MEDS: POTASSIUM CHLORIDE 20 MEQ POWDER PACKET GT SCH (08:12)
[2017-02-15] MEDS: FERROUS SULFATE - FOR SA ONLY 330 MG/7.5 ML UDC GT SCH ×3 (08:12→16:40)
[2017-02-15] MEDS: LEVETIRACETAM SOL (5 ML) 100 MG/ML UDC GT SCH ×2 (08:12→20:19)
[2017-02-15] MEDS: DOCUSATE SODIUM LIQ 100 MG/10 ML UDC GT SCH ×2 (08:12→16:31)
[2017-02-15] MEDS: BACLOFEN (10 MG) 10 MG TABLET GT SCH ×3 (08:12→16:40)
[2017-02-15] MEDS: ASCORBIC ACID 500 MG TABLET GT SCH ×2 (08:12→16:40)
[2017-02-15] MEDS: MVI/MINERALS LIQUID (CEROVITE) GT SCH (08:12)
[2017-02-15] MEDS: GLYCOPYRROLATE 1 MG TABLET GT SCH ×2 (08:12→16:40)
[2017-02-15] MEDS: HYDROGEN PEROXIDE 480 ML BOTTLE TP SCH ×2 (09:00→20:19)
[2017-02-15] MEDS: Z GUARD REMEDY 4 OZ OINT TP SCH ×2 (09:00→20:19)
[2017-02-15] MEDS: INSULIN LISPRO/ASPART 100 UNIT/ML CARTRIDGE SQ PRN (18:45)
[2017-02-15 19:48] VITALS: BP 105/74
[2017-02-15] MEDS: INSULIN DETEMIR 100 UNIT/ML CARTRIDGE SQ SCH (22:03)
[2017-02-15] MEDS: GLYTROL 1,000 ML BAG GT PRN (23:06)
[2017-02-16] MEDS: IPRATROPIUM NEB FS 0.5 MG/2.5 ML AMPUL.NEB NEB SCH ×4 (01:14→19:52)
[2017-02-16] MEDS: ALBUTEROL FS 2.5 MG/3 ML VIAL.NEB NEB SCH ×4 (01:14→19:52)
[2017-02-16] MEDS: FERROUS SULFATE - FOR SA ONLY 330 MG/7.5 ML UDC GT SCH ×3 (09:26→16:52)
[2017-02-16] MEDS: ASCORBIC ACID 500 MG TABLET GT SCH ×2 (09:26→16:52)
[2017-02-16] MEDS: BACLOFEN (10 MG) 10 MG TABLET GT SCH ×3 (09:26→16:52)
[2017-02-16] MEDS: GLYCOPYRROLATE 1 MG TABLET GT SCH ×2 (09:26→16:52)
[2017-02-16] MEDS: LEVETIRACETAM SOL (5 ML) 100 MG/ML UDC GT SCH ×2 (09:26→21:10)
[2017-02-16] MEDS: MVI/MINERALS LIQUID (CEROVITE) GT SCH (09:26)
[2017-02-16] MEDS: DOCUSATE SODIUM LIQ 100 MG/10 ML UDC GT SCH ×2 (09:26→16:52)
[2017-02-16] MEDS: POTASSIUM CHLORIDE 20 MEQ POWDER PACKET GT SCH (09:26)
[2017-02-16] MEDS: HYDROGEN PEROXIDE 480 ML BOTTLE TP SCH ×2 (09:27→21:10)
[2017-02-16] MEDS: Z GUARD REMEDY 4 OZ OINT TP SCH ×2 (09:27→21:10)
[2017-02-16] MEDS: POLYVINYL ALCOHOL 15 ML BOTTLE EACHEYE SCH ×2 (12:17→17:55)
[2017-02-16 12:29] VITALS: BP 100/58
[2017-02-16] MEDS: BLOOD SUGAR DIAGNOSTIC 1 EACH STRIP IN SCH (17:54)
[2017-02-16 20:28] VITALS: BP 100/61
[2017-02-16] MEDS: INSULIN DETEMIR 100 UNIT/ML CARTRIDGE SQ SCH (21:11)
[2017-02-16] MEDS: GLYTROL 1,000 ML BAG GT PRN (21:12)
--- NOTE | 2017-02-16 22:00 | NUR ---
Pt with bilateral groin rashes,obtained treatment for Lotrisone q shift x 14 days.Will continue to monitor.
[2017-02-17] MEDS: POLYVINYL ALCOHOL 15 ML BOTTLE EACHEYE SCH ×5 (00:26→23:50)
[2017-02-17] MEDS: ALBUTEROL FS 2.5 MG/3 ML VIAL.NEB NEB SCH ×4 (01:32→20:10)
[2017-02-17] MEDS: IPRATROPIUM NEB FS 0.5 MG/2.5 ML AMPUL.NEB NEB SCH ×4 (01:32→20:10)
[2017-02-17] MEDS: PANTOPRAZOLE 40 MG/PACK PACK GT SCH (05:19)
[2017-02-17] MEDS: BLOOD SUGAR DIAGNOSTIC 1 EACH STRIP IN SCH ×2 (05:19→17:25)
[2017-02-17] MEDS: INSULIN LISPRO/ASPART 100 UNIT/ML CARTRIDGE SQ PRN (05:20)
[2017-02-17 07:42] VITALS: BP 131/73
[2017-02-17] MEDS: FERROUS SULFATE - FOR SA ONLY 330 MG/7.5 ML UDC GT SCH ×3 (09:50→17:19)
[2017-02-17] MEDS: Z GUARD REMEDY 4 OZ OINT TP SCH ×2 (09:52→21:26)
[2017-02-17] MEDS: ASCORBIC ACID 500 MG TABLET GT SCH ×2 (09:52→17:19)
[2017-02-17] MEDS: MVI/MINERALS LIQUID (CEROVITE) GT SCH (09:52)
[2017-02-17] MEDS: HYDROGEN PEROXIDE 480 ML BOTTLE TP SCH ×2 (09:52→21:26)
[2017-02-17] MEDS: GLYCOPYRROLATE 1 MG TABLET GT SCH ×2 (09:55→17:20)
[2017-02-17] MEDS: BACLOFEN (10 MG) 10 MG TABLET GT SCH ×3 (09:55→17:20)
[2017-02-17] MEDS: DOCUSATE SODIUM LIQ 100 MG/10 ML UDC GT SCH ×2 (09:55→17:19)
[2017-02-17] MEDS: LEVETIRACETAM SOL (5 ML) 100 MG/ML UDC GT SCH ×2 (09:55→21:26)
[2017-02-17] MEDS: POTASSIUM CHLORIDE 20 MEQ POWDER PACKET GT SCH (09:55)
--- NOTE | 2017-02-17 14:00 | NUR ---
HEAD CIRCUMFERENCE IS 56CM
[2017-02-17] MEDS: CLOTRIMAZOLE/BETAMETASONE DIPROPIONATE 15 GM TUBE TP SCH (21:26)
[2017-02-17] MEDS: POLYETHYLENE GLYCOL 3350 17 GM POWD.PACK GT PRN (21:27)
[2017-02-17] MEDS: INSULIN DETEMIR 100 UNIT/ML CARTRIDGE SQ SCH (21:27)
[2017-02-17 21:29] VITALS: BP 114/68
[2017-02-17] MEDS: GLYTROL 1,000 ML BAG GT PRN (22:02)
[2017-02-18] MEDS: ALBUTEROL FS 2.5 MG/3 ML VIAL.NEB NEB SCH ×4 (01:10→19:11)
[2017-02-18] MEDS: IPRATROPIUM NEB FS 0.5 MG/2.5 ML AMPUL.NEB NEB SCH ×4 (01:10→19:11)
[2017-02-18] MEDS: PANTOPRAZOLE 40 MG/PACK PACK GT SCH (05:16)
[2017-02-18] MEDS: POLYVINYL ALCOHOL 15 ML BOTTLE EACHEYE SCH ×3 (05:16→18:11)
[2017-02-18] MEDS: BLOOD SUGAR DIAGNOSTIC 1 EACH STRIP IN SCH ×2 (05:16→18:11)
[2017-02-18] MEDS: BISACODYL SUPP (10 MG) 10 MG/SUPP.RECT SUPP.RECT RC PRN (05:17)
[2017-02-18] MEDS: INSULIN LISPRO/ASPART 100 UNIT/ML CARTRIDGE SQ PRN ×2 (05:17→18:12)
[2017-02-18 07:33] VITALS: BP 109/70
[2017-02-18] MEDS: Z GUARD REMEDY 4 OZ OINT TP SCH ×2 (09:00→20:15)
[2017-02-18] MEDS: CLOTRIMAZOLE/BETAMETASONE DIPROPIONATE 15 GM TUBE TP SCH ×2 (09:00→20:15)
[2017-02-18] MEDS: HYDROGEN PEROXIDE 480 ML BOTTLE TP SCH ×2 (09:00→20:15)
[2017-02-18] MEDS: DOCUSATE SODIUM LIQ 100 MG/10 ML UDC GT SCH ×2 (09:20→16:51)
[2017-02-18] MEDS: MVI/MINERALS LIQUID (CEROVITE) GT SCH (09:21)
[2017-02-18] MEDS: LEVETIRACETAM SOL (5 ML) 100 MG/ML UDC GT SCH ×2 (09:21→20:14)
[2017-02-18] MEDS: GLYCOPYRROLATE 1 MG TABLET GT SCH ×2 (09:21→16:51)
[2017-02-18] MEDS: POTASSIUM CHLORIDE 20 MEQ POWDER PACKET GT SCH (09:21)
[2017-02-18] MEDS: FERROUS SULFATE - FOR SA ONLY 330 MG/7.5 ML UDC GT SCH ×3 (09:21→16:52)
[2017-02-18] MEDS: BACLOFEN (10 MG) 10 MG TABLET GT SCH ×3 (09:21→16:52)
[2017-02-18] MEDS: ASCORBIC ACID 500 MG TABLET GT SCH ×2 (09:22→16:51)
[2017-02-18 19:49] VITALS: BP 106/65
[2017-02-18 20:28] VITALS: BP 106/65
[2017-02-18] MEDS: INSULIN DETEMIR 100 UNIT/ML CARTRIDGE SQ SCH (22:50)
[2017-02-19] MEDS: POLYVINYL ALCOHOL 15 ML BOTTLE EACHEYE SCH ×4 (00:25→17:17)
[2017-02-19] MEDS: IPRATROPIUM NEB FS 0.5 MG/2.5 ML AMPUL.NEB NEB SCH ×5 (01:15→19:22)
[2017-02-19] MEDS: ALBUTEROL FS 2.5 MG/3 ML VIAL.NEB NEB SCH ×5 (01:15→19:22)
[2017-02-19] MEDS: GLYTROL 1,000 ML BAG GT PRN ×2 (01:52→21:29)
[2017-02-19] MEDS: BLOOD SUGAR DIAGNOSTIC 1 EACH STRIP IN SCH ×2 (05:12→17:37)
[2017-02-19] MEDS: INSULIN LISPRO/ASPART 100 UNIT/ML CARTRIDGE SQ PRN ×2 (05:13→17:37)
[2017-02-19] MEDS: PANTOPRAZOLE 40 MG/PACK PACK GT SCH (05:16)
[2017-02-19 08:09] VITALS: BP 138/68
[2017-02-19] MEDS: POTASSIUM CHLORIDE 20 MEQ POWDER PACKET GT SCH (09:58)
[2017-02-19] MEDS: HYDROGEN PEROXIDE 480 ML BOTTLE TP SCH ×2 (09:58→20:10)
[2017-02-19] MEDS: FERROUS SULFATE - FOR SA ONLY 330 MG/7.5 ML UDC GT SCH ×3 (09:58→17:17)
[2017-02-19] MEDS: GLYCOPYRROLATE 1 MG TABLET GT SCH ×2 (09:58→17:17)
[2017-02-19] MEDS: BACLOFEN (10 MG) 10 MG TABLET GT SCH ×3 (09:58→17:17)
[2017-02-19] MEDS: MVI/MINERALS LIQUID (CEROVITE) GT SCH (09:58)
[2017-02-19] MEDS: ASCORBIC ACID 500 MG TABLET GT SCH ×2 (09:58→17:17)
[2017-02-19] MEDS: LEVETIRACETAM SOL (5 ML) 100 MG/ML UDC GT SCH ×2 (09:58→20:10)
[2017-02-19] MEDS: DOCUSATE SODIUM LIQ 100 MG/10 ML UDC GT SCH ×2 (09:58→17:17)
[2017-02-19] MEDS: CLOTRIMAZOLE/BETAMETASONE DIPROPIONATE 15 GM TUBE TP SCH ×2 (09:59→20:10)
[2017-02-19] MEDS: Z GUARD REMEDY 4 OZ OINT TP SCH ×2 (09:59→20:10)
[2017-02-19 20:04] VITALS: BP 98/53
[2017-02-19] MEDS: POLYETHYLENE GLYCOL 3350 17 GM POWD.PACK GT PRN (20:10)
[2017-02-19] MEDS: INSULIN DETEMIR 100 UNIT/ML CARTRIDGE SQ SCH (21:00)
[2017-02-20] MEDS: POLYVINYL ALCOHOL 15 ML BOTTLE EACHEYE SCH ×4 (00:24→17:18)
[2017-02-20] MEDS: IPRATROPIUM NEB FS 0.5 MG/2.5 ML AMPUL.NEB NEB SCH ×4 (02:00→20:00)
[2017-02-20] MEDS: ALBUTEROL FS 2.5 MG/3 ML VIAL.NEB NEB SCH ×4 (02:00→20:00)
[2017-02-20] MEDS: PANTOPRAZOLE 40 MG/PACK PACK GT SCH (05:08)
[2017-02-20] MEDS: BLOOD SUGAR DIAGNOSTIC 1 EACH STRIP IN SCH ×2 (05:08→18:02)
[2017-02-20] MEDS: INSULIN LISPRO/ASPART 100 UNIT/ML CARTRIDGE SQ PRN ×2 (05:09→18:03)
[2017-02-20 07:39] VITALS: BP 116/59
[2017-02-20 08:08] VITALS: BP 100/59
[2017-02-20] MEDS: DOCUSATE SODIUM LIQ 100 MG/10 ML UDC GT SCH ×2 (09:21→17:18)
[2017-02-20] MEDS: BACLOFEN (10 MG) 10 MG TABLET GT SCH ×3 (09:21→17:18)
[2017-02-20] MEDS: CLOTRIMAZOLE/BETAMETASONE DIPROPIONATE 15 GM TUBE TP SCH ×2 (09:21→21:10)
[2017-02-20] MEDS: POTASSIUM CHLORIDE 20 MEQ POWDER PACKET GT SCH (09:21)
[2017-02-20] MEDS: GLYCOPYRROLATE 1 MG TABLET GT SCH ×2 (09:21→17:18)
[2017-02-20] MEDS: Z GUARD REMEDY 4 OZ OINT TP SCH ×2 (09:21→21:10)
[2017-02-20] MEDS: ASCORBIC ACID 500 MG TABLET GT SCH ×2 (09:21→17:18)
[2017-02-20] MEDS: MVI/MINERALS LIQUID (CEROVITE) GT SCH (09:21)
[2017-02-20] MEDS: FERROUS SULFATE - FOR SA ONLY 330 MG/7.5 ML UDC GT SCH ×3 (09:21→17:17)
[2017-02-20] MEDS: HYDROGEN PEROXIDE 480 ML BOTTLE TP SCH ×2 (09:21→21:10)
[2017-02-20] MEDS: LEVETIRACETAM SOL (5 ML) 100 MG/ML UDC GT SCH ×2 (09:21→21:10)
[2017-02-20] MEDS: GLYTROL 1,000 ML BAG GT PRN (18:47)
[2017-02-20 20:11] VITALS: BP 113/67
[2017-02-20] MEDS: INSULIN DETEMIR 100 UNIT/ML CARTRIDGE SQ SCH (21:10)
[2017-02-21] MEDS: ALBUTEROL FS 2.5 MG/3 ML VIAL.NEB NEB SCH ×4 (01:50→19:59)
[2017-02-21] MEDS: IPRATROPIUM NEB FS 0.5 MG/2.5 ML AMPUL.NEB NEB SCH ×4 (01:50→19:59)
[2017-02-21] MEDS: PANTOPRAZOLE 40 MG/PACK PACK GT SCH (05:35)
[2017-02-21] MEDS: BLOOD SUGAR DIAGNOSTIC 1 EACH STRIP IN SCH ×2 (05:35→17:44)
[2017-02-21] MEDS: POLYVINYL ALCOHOL 15 ML BOTTLE EACHEYE SCH ×5 (05:35→23:02)
[2017-02-21] MEDS: INSULIN LISPRO/ASPART 100 UNIT/ML CARTRIDGE SQ PRN (05:35)
[2017-02-21 07:38] VITALS: BP 120/70
[2017-02-21] MEDS: FERROUS SULFATE - FOR SA ONLY 330 MG/7.5 ML UDC GT SCH ×3 (09:23→17:44)
[2017-02-21] MEDS: LEVETIRACETAM SOL (5 ML) 100 MG/ML UDC GT SCH ×2 (09:23→20:13)
[2017-02-21] MEDS: DOCUSATE SODIUM LIQ 100 MG/10 ML UDC GT SCH ×2 (09:23→17:43)
[2017-02-21] MEDS: GLYCOPYRROLATE 1 MG TABLET GT SCH ×2 (09:23→17:44)
[2017-02-21] MEDS: POTASSIUM CHLORIDE 20 MEQ POWDER PACKET GT SCH (09:23)
[2017-02-21] MEDS: MVI/MINERALS LIQUID (CEROVITE) GT SCH (09:23)
[2017-02-21] MEDS: ASCORBIC ACID 500 MG TABLET GT SCH ×2 (09:23→17:44)
[2017-02-21] MEDS: BACLOFEN (10 MG) 10 MG TABLET GT SCH ×3 (09:23→17:44)
[2017-02-21] MEDS: HYDROGEN PEROXIDE 480 ML BOTTLE TP SCH ×2 (10:00→20:13)
[2017-02-21] MEDS: CLOTRIMAZOLE/BETAMETASONE DIPROPIONATE 15 GM TUBE TP SCH ×2 (10:00→20:13)
[2017-02-21] MEDS: Z GUARD REMEDY 4 OZ OINT TP SCH ×2 (10:00→20:13)
--- NOTE | 2017-02-21 10:25 | NUR ---
Female pt received on mechanical vent. Pt trach is secure. Vent is plugged into a red outlet, alarms are set and audible, and BVM is at bedside. Addendum: 02/21/17 at 1027 by SHABNAM GROSSMAN RT Amended: Links added.
[2017-02-21] MEDS: GLYTROL 1,000 ML BAG GT PRN (18:35)
[2017-02-21 19:56] VITALS: BP 108/71
[2017-02-21] MEDS: INSULIN DETEMIR 100 UNIT/ML CARTRIDGE SQ SCH (21:27)
[2017-02-22] MEDS: IPRATROPIUM NEB FS 0.5 MG/2.5 ML AMPUL.NEB NEB SCH ×4 (01:25→19:13)
[2017-02-22] MEDS: ALBUTEROL FS 2.5 MG/3 ML VIAL.NEB NEB SCH ×4 (01:26→19:13)
[2017-02-22] MEDS: PANTOPRAZOLE 40 MG/PACK PACK GT SCH (05:15)
[2017-02-22] MEDS: POLYVINYL ALCOHOL 15 ML BOTTLE EACHEYE SCH ×4 (05:15→23:32)
[2017-02-22] MEDS: BLOOD SUGAR DIAGNOSTIC 1 EACH STRIP IN SCH ×2 (06:06→17:36)
[2017-02-22 08:03] VITALS: BP 107/67
[2017-02-22] MEDS: LEVETIRACETAM SOL (5 ML) 100 MG/ML UDC GT SCH ×2 (08:36→21:25)
[2017-02-22] MEDS: DOCUSATE SODIUM LIQ 100 MG/10 ML UDC GT SCH ×2 (08:36→17:36)
[2017-02-22] MEDS: POTASSIUM CHLORIDE 20 MEQ POWDER PACKET GT SCH (08:36)
[2017-02-22] MEDS: ASCORBIC ACID 500 MG TABLET GT SCH ×2 (08:36→17:36)
[2017-02-22] MEDS: MVI/MINERALS LIQUID (CEROVITE) GT SCH (08:36)
[2017-02-22] MEDS: GLYCOPYRROLATE 1 MG TABLET GT SCH ×2 (08:36→17:36)
[2017-02-22] MEDS: BACLOFEN (10 MG) 10 MG TABLET GT SCH ×3 (08:36→17:36)
[2017-02-22] MEDS: FERROUS SULFATE - FOR SA ONLY 330 MG/7.5 ML UDC GT SCH ×3 (08:36→17:36)
[2017-02-22] MEDS: HYDROGEN PEROXIDE 480 ML BOTTLE TP SCH ×2 (10:30→21:25)
[2017-02-22] MEDS: Z GUARD REMEDY 4 OZ OINT TP SCH ×2 (10:30→21:26)
[2017-02-22] MEDS: CLOTRIMAZOLE/BETAMETASONE DIPROPIONATE 15 GM TUBE TP SCH ×2 (10:30→21:26)
[2017-02-22] MEDS: GLYTROL 1,000 ML BAG GT PRN (17:30)
[2017-02-22 21:24] VITALS: BP 107/69
[2017-02-22] MEDS: INSULIN DETEMIR 100 UNIT/ML CARTRIDGE SQ SCH (21:26)
[2017-02-23] MEDS: ALBUTEROL FS 2.5 MG/3 ML VIAL.NEB NEB SCH ×4 (00:37→19:55)
[2017-02-23] MEDS: IPRATROPIUM NEB FS 0.5 MG/2.5 ML AMPUL.NEB NEB SCH ×4 (00:37→19:54)
[2017-02-23] MEDS: PANTOPRAZOLE 40 MG/PACK PACK GT SCH (05:16)
[2017-02-23] MEDS: POLYVINYL ALCOHOL 15 ML BOTTLE EACHEYE SCH ×3 (05:16→17:08)
[2017-02-23] MEDS: BLOOD SUGAR DIAGNOSTIC 1 EACH STRIP IN SCH ×2 (05:49→17:08)
[2017-02-23 07:56] VITALS: BP 108/57
[2017-02-23] MEDS: MVI/MINERALS LIQUID (CEROVITE) GT SCH (08:55)
[2017-02-23] MEDS: DOCUSATE SODIUM LIQ 100 MG/10 ML UDC GT SCH ×2 (08:55→17:07)
[2017-02-23] MEDS: ASCORBIC ACID 500 MG TABLET GT SCH ×2 (08:55→17:08)
[2017-02-23] MEDS: Z GUARD REMEDY 4 OZ OINT TP SCH ×2 (08:55→20:51)
[2017-02-23] MEDS: BACLOFEN (10 MG) 10 MG TABLET GT SCH ×3 (08:55→17:08)
[2017-02-23] MEDS: LEVETIRACETAM SOL (5 ML) 100 MG/ML UDC GT SCH ×2 (08:55→20:51)
[2017-02-23] MEDS: FERROUS SULFATE - FOR SA ONLY 330 MG/7.5 ML UDC GT SCH ×3 (08:55→17:08)
[2017-02-23] MEDS: CLOTRIMAZOLE/BETAMETASONE DIPROPIONATE 15 GM TUBE TP SCH ×2 (08:55→20:51)
[2017-02-23] MEDS: GLYCOPYRROLATE 1 MG TABLET GT SCH ×2 (08:55→17:08)
[2017-02-23] MEDS: POTASSIUM CHLORIDE 20 MEQ POWDER PACKET GT SCH (08:55)
[2017-02-23] MEDS: HYDROGEN PEROXIDE 480 ML BOTTLE TP SCH ×2 (08:55→20:51)
[2017-02-23] MEDS: INSULIN LISPRO/ASPART 100 UNIT/ML CARTRIDGE SQ PRN (17:33)
[2017-02-23 19:53] VITALS: BP 111/71
[2017-02-23] MEDS: INSULIN DETEMIR 100 UNIT/ML CARTRIDGE SQ SCH (21:35)
--- NOTE | 2017-02-23 22:00 | NUR ---
Pt noted with gluteal crease open skin;treatment obtained for Z guard and Mepilex q shift x 14 days.Good perineal care rendered.
[2017-02-24] MEDS: POLYVINYL ALCOHOL 15 ML BOTTLE EACHEYE SCH ×4 (00:17→17:28)
[2017-02-24] MEDS: ALBUTEROL FS 2.5 MG/3 ML VIAL.NEB NEB SCH ×4 (02:12→19:47)
[2017-02-24] MEDS: IPRATROPIUM NEB FS 0.5 MG/2.5 ML AMPUL.NEB NEB SCH ×4 (02:12→19:47)
[2017-02-24] MEDS: PANTOPRAZOLE 40 MG/PACK PACK GT SCH (05:20)
[2017-02-24] MEDS: BLOOD SUGAR DIAGNOSTIC 1 EACH STRIP IN SCH ×2 (06:06→17:27)
[2017-02-24 07:57] VITALS: BP 107/70
[2017-02-24] MEDS: CLOTRIMAZOLE/BETAMETASONE DIPROPIONATE 15 GM TUBE TP SCH ×2 (08:18→20:25)
[2017-02-24] MEDS: FERROUS SULFATE - FOR SA ONLY 330 MG/7.5 ML UDC GT SCH ×3 (08:18→17:27)
[2017-02-24] MEDS: HYDROGEN PEROXIDE 480 ML BOTTLE TP SCH ×2 (08:18→20:25)
[2017-02-24] MEDS: ASCORBIC ACID 500 MG TABLET GT SCH ×2 (08:18→17:27)
[2017-02-24] MEDS: BACLOFEN (10 MG) 10 MG TABLET GT SCH ×3 (08:18→17:27)
[2017-02-24] MEDS: POTASSIUM CHLORIDE 20 MEQ POWDER PACKET GT SCH (08:18)
[2017-02-24] MEDS: DOCUSATE SODIUM LIQ 100 MG/10 ML UDC GT SCH ×2 (08:18→17:26)
[2017-02-24] MEDS: LEVETIRACETAM SOL (5 ML) 100 MG/ML UDC GT SCH ×2 (08:18→20:25)
[2017-02-24] MEDS: GLYCOPYRROLATE 1 MG TABLET GT SCH ×2 (08:18→17:27)
[2017-02-24] MEDS: MVI/MINERALS LIQUID (CEROVITE) GT SCH (08:18)
[2017-02-24] MEDS: Z GUARD REMEDY 4 OZ OINT TP SCH ×2 (08:19→20:25)
[2017-02-24 08:26] VITALS: BP 82/40
[2017-02-24] MEDS: Z GUARD REMEDY 2 OZ OINT TP SCH ×2 (09:00→20:25)
[2017-02-24] MEDS: BISACODYL SUPP (10 MG) 10 MG/SUPP.RECT SUPP.RECT RC PRN (10:27)
[2017-02-24] MEDS: GLYTROL 1,000 ML BAG GT PRN (17:27)
--- NOTE | 2017-02-24 18:07 | NUR ---
Head circumference 57cm
[2017-02-24 19:32] VITALS: BP 107/67
[2017-02-24] MEDS: INSULIN DETEMIR 100 UNIT/ML CARTRIDGE SQ SCH (21:10)
[2017-02-25] MEDS: POLYVINYL ALCOHOL 15 ML BOTTLE EACHEYE SCH ×5 (00:05→23:37)
[2017-02-25] MEDS: IPRATROPIUM NEB FS 0.5 MG/2.5 ML AMPUL.NEB NEB SCH ×4 (01:41→20:00)
[2017-02-25] MEDS: ALBUTEROL FS 2.5 MG/3 ML VIAL.NEB NEB SCH ×4 (01:41→20:00)
[2017-02-25] MEDS: BLOOD SUGAR DIAGNOSTIC 1 EACH STRIP IN SCH ×2 (05:12→17:12)
[2017-02-25] MEDS: INSULIN LISPRO/ASPART 100 UNIT/ML CARTRIDGE SQ PRN (05:12)
[2017-02-25] MEDS: POLYETHYLENE GLYCOL 3350 17 GM POWD.PACK GT PRN (05:12)
[2017-02-25] MEDS: PANTOPRAZOLE 40 MG/PACK PACK GT SCH (05:12)
[2017-02-25 07:33] VITALS: BP 108/67
[2017-02-25] MEDS: DOCUSATE SODIUM LIQ 100 MG/10 ML UDC GT SCH ×2 (08:44→16:51)
[2017-02-25] MEDS: POTASSIUM CHLORIDE 20 MEQ POWDER PACKET GT SCH (08:44)
[2017-02-25] MEDS: MVI/MINERALS LIQUID (CEROVITE) GT SCH (08:44)
[2017-02-25] MEDS: BACLOFEN (10 MG) 10 MG TABLET GT SCH ×3 (08:44→16:54)
[2017-02-25] MEDS: LEVETIRACETAM SOL (5 ML) 100 MG/ML UDC GT SCH ×2 (08:44→20:17)
[2017-02-25] MEDS: FERROUS SULFATE - FOR SA ONLY 330 MG/7.5 ML UDC GT SCH ×3 (08:44→16:54)
[2017-02-25] MEDS: CLOTRIMAZOLE/BETAMETASONE DIPROPIONATE 15 GM TUBE TP SCH ×2 (08:44→20:17)
[2017-02-25] MEDS: ASCORBIC ACID 500 MG TABLET GT SCH ×2 (08:44→16:54)
[2017-02-25] MEDS: HYDROGEN PEROXIDE 480 ML BOTTLE TP SCH ×2 (08:44→20:17)
[2017-02-25] MEDS: GLYCOPYRROLATE 1 MG TABLET GT SCH ×2 (08:44→16:54)
[2017-02-25] MEDS: Z GUARD REMEDY 2 OZ OINT TP SCH ×2 (08:45→20:17)
[2017-02-25] MEDS: Z GUARD REMEDY 4 OZ OINT TP SCH ×2 (08:45→20:17)
[2017-02-25] MEDS: GLYTROL 1,000 ML BAG GT PRN (18:00)
[2017-02-25 19:31] VITALS: BP 110/74
[2017-02-25] MEDS: ACETAMINOPHEN 650 MG/20 ML UDC- FOR SA PATIENTS ONLY GT PRN (20:17)
[2017-02-25] MEDS: INSULIN DETEMIR 100 UNIT/ML CARTRIDGE SQ SCH (21:14)
[2017-02-26] MEDS: ALBUTEROL FS 2.5 MG/3 ML VIAL.NEB NEB SCH ×4 (01:02→19:05)
[2017-02-26] MEDS: IPRATROPIUM NEB FS 0.5 MG/2.5 ML AMPUL.NEB NEB SCH ×4 (01:02→19:05)
[2017-02-26] MEDS: INSULIN LISPRO/ASPART 100 UNIT/ML CARTRIDGE SQ PRN (05:21)
[2017-02-26] MEDS: BLOOD SUGAR DIAGNOSTIC 1 EACH STRIP IN SCH ×2 (05:21→17:33)
[2017-02-26] MEDS: POLYETHYLENE GLYCOL 3350 17 GM POWD.PACK GT PRN (05:21)
[2017-02-26] MEDS: POLYVINYL ALCOHOL 15 ML BOTTLE EACHEYE SCH ×3 (05:21→17:33)
[2017-02-26] MEDS: PANTOPRAZOLE 40 MG/PACK PACK GT SCH (05:21)
[2017-02-26 07:32] VITALS: BP 100/68
[2017-02-26] MEDS: DOCUSATE SODIUM LIQ 100 MG/10 ML UDC GT SCH ×2 (08:26→17:33)
[2017-02-26] MEDS: GLYCOPYRROLATE 1 MG TABLET GT SCH ×2 (08:26→17:33)
[2017-02-26] MEDS: FERROUS SULFATE - FOR SA ONLY 330 MG/7.5 ML UDC GT SCH ×3 (08:26→17:33)
[2017-02-26] MEDS: HYDROGEN PEROXIDE 480 ML BOTTLE TP SCH ×2 (08:27→20:32)
[2017-02-26] MEDS: MVI/MINERALS LIQUID (CEROVITE) GT SCH (08:27)
[2017-02-26] MEDS: BACLOFEN (10 MG) 10 MG TABLET GT SCH ×3 (08:27→17:33)
[2017-02-26] MEDS: Z GUARD REMEDY 4 OZ OINT TP SCH ×2 (08:27→20:32)
[2017-02-26] MEDS: POTASSIUM CHLORIDE 20 MEQ POWDER PACKET GT SCH (08:27)
[2017-02-26] MEDS: CLOTRIMAZOLE/BETAMETASONE DIPROPIONATE 15 GM TUBE TP SCH ×2 (08:27→20:32)
[2017-02-26] MEDS: Z GUARD REMEDY 2 OZ OINT TP SCH ×2 (08:27→20:32)
[2017-02-26] MEDS: LEVETIRACETAM SOL (5 ML) 100 MG/ML UDC GT SCH ×2 (08:27→20:32)
[2017-02-26] MEDS: ASCORBIC ACID 500 MG TABLET GT SCH ×2 (08:27→17:33)
[2017-02-26] MEDS: GLYTROL 1,000 ML BAG GT PRN (12:42)
[2017-02-26 19:29] VITALS: BP 114/79
[2017-02-26] MEDS: BISACODYL SUPP (10 MG) 10 MG/SUPP.RECT SUPP.RECT RC PRN (20:33)
[2017-02-26] MEDS: INSULIN DETEMIR 100 UNIT/ML CARTRIDGE SQ SCH (21:16)
[2017-02-27] MEDS: POLYVINYL ALCOHOL 15 ML BOTTLE EACHEYE SCH ×5 (00:47→23:34)
[2017-02-27] MEDS: IPRATROPIUM NEB FS 0.5 MG/2.5 ML AMPUL.NEB NEB SCH ×4 (01:44→19:50)
[2017-02-27] MEDS: ALBUTEROL FS 2.5 MG/3 ML VIAL.NEB NEB SCH ×4 (01:44→19:50)
[2017-02-27] MEDS: BLOOD SUGAR DIAGNOSTIC 1 EACH STRIP IN SCH ×2 (05:17→17:25)
[2017-02-27] MEDS: PANTOPRAZOLE 40 MG/PACK PACK GT SCH (05:17)
[2017-02-27] MEDS: INSULIN LISPRO/ASPART 100 UNIT/ML CARTRIDGE SQ PRN (05:17)
[2017-02-27 07:58] VITALS: BP 117/57
[2017-02-27] MEDS: GLYCOPYRROLATE 1 MG TABLET GT SCH ×2 (08:53→16:35)
[2017-02-27] MEDS: FERROUS SULFATE - FOR SA ONLY 330 MG/7.5 ML UDC GT SCH ×3 (08:53→16:35)
[2017-02-27] MEDS: BACLOFEN (10 MG) 10 MG TABLET GT SCH ×3 (08:53→16:35)
[2017-02-27] MEDS: LEVETIRACETAM SOL (5 ML) 100 MG/ML UDC GT SCH ×2 (08:53→21:04)
[2017-02-27] MEDS: ASCORBIC ACID 500 MG TABLET GT SCH ×2 (08:53→16:35)
[2017-02-27] MEDS: POTASSIUM CHLORIDE 20 MEQ POWDER PACKET GT SCH (08:53)
[2017-02-27] MEDS: DOCUSATE SODIUM LIQ 100 MG/10 ML UDC GT SCH ×2 (08:53→16:35)
[2017-02-27] MEDS: MVI/MINERALS LIQUID (CEROVITE) GT SCH (08:53)
[2017-02-27] MEDS: HYDROGEN PEROXIDE 480 ML BOTTLE TP SCH ×2 (09:00→21:04)
[2017-02-27] MEDS: CLOTRIMAZOLE/BETAMETASONE DIPROPIONATE 15 GM TUBE TP SCH ×2 (09:00→21:05)
[2017-02-27] MEDS: Z GUARD REMEDY 2 OZ OINT TP SCH ×2 (09:00→21:05)
[2017-02-27] MEDS: Z GUARD REMEDY 4 OZ OINT TP SCH ×2 (09:00→21:05)
[2017-02-27] MEDS: GLYTROL 1,000 ML BAG GT PRN (12:07)
[2017-02-27 20:21] VITALS: BP 105/70
[2017-02-27] MEDS: INSULIN DETEMIR 100 UNIT/ML CARTRIDGE SQ SCH (21:05)
[2017-02-28] MEDS: IPRATROPIUM NEB FS 0.5 MG/2.5 ML AMPUL.NEB NEB SCH ×4 (01:06→19:30)
[2017-02-28] MEDS: ALBUTEROL FS 2.5 MG/3 ML VIAL.NEB NEB SCH ×4 (01:06→19:30)
[2017-02-28] MEDS: PANTOPRAZOLE 40 MG/PACK PACK GT SCH (06:04)
[2017-02-28] MEDS: GLYTROL 1,000 ML BAG GT PRN (06:04)
[2017-02-28] MEDS: BLOOD SUGAR DIAGNOSTIC 1 EACH STRIP IN SCH ×2 (06:04→17:54)
[2017-02-28] MEDS: POLYVINYL ALCOHOL 15 ML BOTTLE EACHEYE SCH ×4 (06:04→23:41)
[2017-02-28 08:00] VITALS: BP 126/75
[2017-02-28] MEDS: MVI/MINERALS LIQUID (CEROVITE) GT SCH (09:00)
[2017-02-28] MEDS: ASCORBIC ACID 500 MG TABLET GT SCH ×2 (09:00→17:54)
[2017-02-28] MEDS: BACLOFEN (10 MG) 10 MG TABLET GT SCH ×3 (09:00→17:54)
[2017-02-28] MEDS: DOCUSATE SODIUM LIQ 100 MG/10 ML UDC GT SCH ×2 (09:00→17:54)
[2017-02-28] MEDS: POTASSIUM CHLORIDE 20 MEQ POWDER PACKET GT SCH (09:00)
[2017-02-28] MEDS: FERROUS SULFATE - FOR SA ONLY 330 MG/7.5 ML UDC GT SCH ×3 (09:00→17:54)
[2017-02-28] MEDS: GLYCOPYRROLATE 1 MG TABLET GT SCH ×2 (09:00→17:54)
[2017-02-28] MEDS: LEVETIRACETAM SOL (5 ML) 100 MG/ML UDC GT SCH ×2 (09:00→20:16)
[2017-02-28] MEDS: CLOTRIMAZOLE/BETAMETASONE DIPROPIONATE 15 GM TUBE TP SCH ×2 (11:00→20:17)
[2017-02-28] MEDS: HYDROGEN PEROXIDE 480 ML BOTTLE TP SCH ×2 (11:00→20:16)
[2017-02-28] MEDS: Z GUARD REMEDY 2 OZ OINT TP SCH ×2 (11:00→20:17)
[2017-02-28] MEDS: Z GUARD REMEDY 4 OZ OINT TP SCH ×2 (11:00→20:17)
--- NOTE | 2017-02-28 16:52 | NUR ---
Head circumference measured with 57.5 cm.
[2017-02-28 20:35] VITALS: BP 126/70
[2017-02-28] MEDS: INSULIN DETEMIR 100 UNIT/ML CARTRIDGE SQ SCH (21:15)
[2017-03-01] MEDS: ALBUTEROL FS 2.5 MG/3 ML VIAL.NEB NEB SCH ×4 (00:35→19:25)
[2017-03-01] MEDS: IPRATROPIUM NEB FS 0.5 MG/2.5 ML AMPUL.NEB NEB SCH ×4 (00:35→19:25)
[2017-03-01] MEDS: PANTOPRAZOLE 40 MG/PACK PACK GT SCH (05:22)
[2017-03-01] MEDS: POLYVINYL ALCOHOL 15 ML BOTTLE EACHEYE SCH ×4 (05:22→23:20)
[2017-03-01] MEDS: BLOOD SUGAR DIAGNOSTIC 1 EACH STRIP IN SCH ×2 (06:07→17:33)
[2017-03-01] MEDS: GLYTROL 1,000 ML BAG GT PRN (06:18)
[2017-03-01 07:48] VITALS: BP 111/74
[2017-03-01] MEDS: POTASSIUM CHLORIDE 20 MEQ POWDER PACKET GT SCH (08:14)
[2017-03-01] MEDS: MVI/MINERALS LIQUID (CEROVITE) GT SCH (08:14)
[2017-03-01] MEDS: BACLOFEN (10 MG) 10 MG TABLET GT SCH ×3 (08:14→17:32)
[2017-03-01] MEDS: GLYCOPYRROLATE 1 MG TABLET GT SCH ×2 (08:14→17:32)
[2017-03-01] MEDS: FERROUS SULFATE - FOR SA ONLY 330 MG/7.5 ML UDC GT SCH ×3 (08:14→17:32)
[2017-03-01] MEDS: ASCORBIC ACID 500 MG TABLET GT SCH ×2 (08:14→17:32)
[2017-03-01] MEDS: LEVETIRACETAM SOL (5 ML) 100 MG/ML UDC GT SCH ×2 (08:14→20:21)
[2017-03-01] MEDS: DOCUSATE SODIUM LIQ 100 MG/10 ML UDC GT SCH ×2 (08:14→17:32)
[2017-03-01] MEDS: HYDROGEN PEROXIDE 480 ML BOTTLE TP SCH ×2 (10:30→20:21)
[2017-03-01] MEDS: Z GUARD REMEDY 4 OZ OINT TP SCH ×2 (10:30→20:22)
[2017-03-01] MEDS: CLOTRIMAZOLE/BETAMETASONE DIPROPIONATE 15 GM TUBE TP SCH ×2 (10:30→20:21)
[2017-03-01] MEDS: Z GUARD REMEDY 2 OZ OINT TP SCH ×2 (10:30→20:22)
[2017-03-01 20:15] VITALS: BP 100/60
[2017-03-01] MEDS: INSULIN DETEMIR 100 UNIT/ML CARTRIDGE SQ SCH (21:41)
[2017-03-02] MEDS: ALBUTEROL FS 2.5 MG/3 ML VIAL.NEB NEB SCH ×4 (01:28→19:28)
[2017-03-02] MEDS: IPRATROPIUM NEB FS 0.5 MG/2.5 ML AMPUL.NEB NEB SCH ×4 (01:28→19:28)
[2017-03-02] MEDS: PANTOPRAZOLE 40 MG/PACK PACK GT SCH (05:13)
[2017-03-02] MEDS: POLYVINYL ALCOHOL 15 ML BOTTLE EACHEYE SCH ×3 (05:13→17:12)
[2017-03-02] MEDS: BLOOD SUGAR DIAGNOSTIC 1 EACH STRIP IN SCH ×2 (05:58→17:12)
[2017-03-02 07:33] VITALS: BP 108/75
[2017-03-02] MEDS: POTASSIUM CHLORIDE 20 MEQ POWDER PACKET GT SCH (08:58)
[2017-03-02] MEDS: Z GUARD REMEDY 2 OZ OINT TP SCH ×2 (08:58→21:18)
[2017-03-02] MEDS: HYDROGEN PEROXIDE 480 ML BOTTLE TP SCH ×2 (08:58→21:17)
[2017-03-02] MEDS: Z GUARD REMEDY 4 OZ OINT TP SCH ×2 (08:58→21:18)
[2017-03-02] MEDS: MVI/MINERALS LIQUID (CEROVITE) GT SCH ×2 (08:58→21:17)
[2017-03-02] MEDS: CLOTRIMAZOLE/BETAMETASONE DIPROPIONATE 15 GM TUBE TP SCH ×2 (08:58→21:17)
[2017-03-02] MEDS: DOCUSATE SODIUM LIQ 100 MG/10 ML UDC GT SCH ×2 (08:58→17:11)
[2017-03-02] MEDS: BACLOFEN (10 MG) 10 MG TABLET GT SCH ×3 (08:58→17:11)
[2017-03-02] MEDS: FERROUS SULFATE - FOR SA ONLY 330 MG/7.5 ML UDC GT SCH ×3 (08:58→17:11)
[2017-03-02] MEDS: LEVETIRACETAM SOL (5 ML) 100 MG/ML UDC GT SCH ×2 (08:58→21:17)
[2017-03-02] MEDS: ASCORBIC ACID 500 MG TABLET GT SCH ×2 (08:58→17:11)
[2017-03-02] MEDS: GLYCOPYRROLATE 1 MG TABLET GT SCH ×2 (08:58→17:11)
--- NOTE | 2017-03-02 09:26 | NUR ---
Contacted resident's sister ([phone]) who agreed for hairdressjean Brady to cut the resident's hair. Informed charge nurse, Caitlyn and FLORENCIO Anderson.
--- NOTE | 2017-03-02 10:43 | NUR ---
Resident received haircut by doug Brady.
[2017-03-02] MEDS: INSULIN LISPRO/ASPART 100 UNIT/ML CARTRIDGE SQ PRN (17:14)
[2017-03-02 19:55] VITALS: BP 110/78
[2017-03-02] MEDS: INSULIN DETEMIR 100 UNIT/ML CARTRIDGE SQ SCH (21:20)
[2017-03-03] MEDS: GLYTROL 1,000 ML BAG GT PRN ×2 (00:57→21:27)
[2017-03-03] MEDS: POLYVINYL ALCOHOL 15 ML BOTTLE EACHEYE SCH ×4 (00:57→17:34)
[2017-03-03] MEDS: IPRATROPIUM NEB FS 0.5 MG/2.5 ML AMPUL.NEB NEB SCH ×4 (01:34→19:50)
[2017-03-03] MEDS: ALBUTEROL FS 2.5 MG/3 ML VIAL.NEB NEB SCH ×4 (01:34→19:50)
[2017-03-03] MEDS: PANTOPRAZOLE 40 MG/PACK PACK GT SCH (05:53)
[2017-03-03] MEDS: BLOOD SUGAR DIAGNOSTIC 1 EACH STRIP IN SCH ×2 (05:53→17:34)
[2017-03-03] MEDS: INSULIN LISPRO/ASPART 100 UNIT/ML CARTRIDGE SQ PRN (05:55)
[2017-03-03 07:41] VITALS: BP 105/68
[2017-03-03] MEDS: Z GUARD REMEDY 2 OZ OINT TP SCH ×2 (08:46→20:33)
[2017-03-03] MEDS: ASCORBIC ACID 500 MG TABLET GT SCH ×2 (08:46→17:34)
[2017-03-03] MEDS: POTASSIUM CHLORIDE 20 MEQ POWDER PACKET GT SCH (08:46)
[2017-03-03] MEDS: FERROUS SULFATE - FOR SA ONLY 330 MG/7.5 ML UDC GT SCH ×3 (08:46→17:34)
[2017-03-03] MEDS: GLYCOPYRROLATE 1 MG TABLET GT SCH ×2 (08:46→17:34)
[2017-03-03] MEDS: CLOTRIMAZOLE/BETAMETASONE DIPROPIONATE 15 GM TUBE TP SCH (08:46)
[2017-03-03] MEDS: DOCUSATE SODIUM LIQ 100 MG/10 ML UDC GT SCH ×2 (08:46→17:34)
[2017-03-03] MEDS: LEVETIRACETAM SOL (5 ML) 100 MG/ML UDC GT SCH ×2 (08:46→20:33)
[2017-03-03] MEDS: Z GUARD REMEDY 4 OZ OINT TP SCH ×2 (08:46→20:33)
[2017-03-03] MEDS: BACLOFEN (10 MG) 10 MG TABLET GT SCH ×3 (08:46→17:34)
[2017-03-03] MEDS: HYDROGEN PEROXIDE 480 ML BOTTLE TP SCH ×2 (08:46→20:33)
--- NOTE | 2017-03-03 16:01 | NUR ---
Head circumference 57cm.
[2017-03-03 20:13] VITALS: BP 106/70
[2017-03-03] MEDS: MVI/MINERALS LIQUID (CEROVITE) GT SCH (20:33)
[2017-03-03] MEDS: INSULIN DETEMIR 100 UNIT/ML CARTRIDGE SQ SCH (21:24)
[2017-03-04] MEDS: POLYVINYL ALCOHOL 15 ML BOTTLE EACHEYE SCH ×4 (00:05→17:43)
[2017-03-04] MEDS: ALBUTEROL FS 2.5 MG/3 ML VIAL.NEB NEB SCH ×4 (01:30→19:17)
[2017-03-04] MEDS: IPRATROPIUM NEB FS 0.5 MG/2.5 ML AMPUL.NEB NEB SCH ×4 (01:30→19:17)
[2017-03-04] MEDS: BLOOD SUGAR DIAGNOSTIC 1 EACH STRIP IN SCH ×2 (05:11→17:49)
[2017-03-04] MEDS: PANTOPRAZOLE 40 MG/PACK PACK GT SCH (05:11)
[2017-03-04] MEDS: INSULIN LISPRO/ASPART 100 UNIT/ML CARTRIDGE SQ PRN (05:12)
[2017-03-04 07:31] VITALS: BP 125/69
[2017-03-04] MEDS: DOCUSATE SODIUM LIQ 100 MG/10 ML UDC GT SCH ×2 (08:38→17:43)
[2017-03-04] MEDS: FERROUS SULFATE - FOR SA ONLY 330 MG/7.5 ML UDC GT SCH ×3 (08:38→17:43)
[2017-03-04] MEDS: BACLOFEN (10 MG) 10 MG TABLET GT SCH ×3 (08:39→17:43)
[2017-03-04] MEDS: ASCORBIC ACID 500 MG TABLET GT SCH ×2 (08:39→17:43)
[2017-03-04] MEDS: HYDROGEN PEROXIDE 480 ML BOTTLE TP SCH ×2 (08:39→20:30)
[2017-03-04] MEDS: POTASSIUM CHLORIDE 20 MEQ POWDER PACKET GT SCH (08:39)
[2017-03-04] MEDS: LEVETIRACETAM SOL (5 ML) 100 MG/ML UDC GT SCH ×2 (08:39→20:30)
[2017-03-04] MEDS: Z GUARD REMEDY 2 OZ OINT TP SCH ×2 (08:40→20:30)
[2017-03-04] MEDS: Z GUARD REMEDY 4 OZ OINT TP SCH ×2 (08:40→20:30)
[2017-03-04] MEDS: GLYCOPYRROLATE 1 MG TABLET GT SCH ×2 (08:54→17:43)
--- NOTE | 2017-03-04 14:00 | NUR ---
IDT meeting held, family unable to attend the meeting. Reviewed current medication orders, treatment and labs. Pharmacy recommended follow-up CXR due to completion of Rifampin therapy. Dr. Alvarez said there is no need for follow-up xray but he ordered BMP for Tuesday and order for measuring head circumference discontinued head circumference 56-57 cm., no changes.
[2017-03-04 19:41] VITALS: BP 119/81
[2017-03-04] MEDS: MULTIVIT, IRON, MIN NO. 8, FA 1 TAB GT SCH (20:30)
[2017-03-04] MEDS: INSULIN DETEMIR 100 UNIT/ML CARTRIDGE SQ SCH (22:01)
[2017-03-05] MEDS: POLYVINYL ALCOHOL 15 ML BOTTLE EACHEYE SCH ×4 (00:52→17:16)
[2017-03-05] MEDS: ALBUTEROL FS 2.5 MG/3 ML VIAL.NEB NEB SCH ×4 (01:40→19:59)
[2017-03-05] MEDS: IPRATROPIUM NEB FS 0.5 MG/2.5 ML AMPUL.NEB NEB SCH ×4 (01:40→19:59)
[2017-03-05] MEDS: BLOOD SUGAR DIAGNOSTIC 1 EACH STRIP IN SCH ×2 (05:49→17:16)
[2017-03-05] MEDS: PANTOPRAZOLE 40 MG/PACK PACK GT SCH (05:49)
[2017-03-05] MEDS: INSULIN LISPRO/ASPART 100 UNIT/ML CARTRIDGE SQ PRN (05:49)
[2017-03-05] MEDS: GLYTROL 1,000 ML BAG GT PRN (05:50)
[2017-03-05 07:26] VITALS: BP 122/76
[2017-03-05] MEDS: ASCORBIC ACID 500 MG TABLET GT SCH ×2 (09:04→17:16)
[2017-03-05] MEDS: POTASSIUM CHLORIDE 20 MEQ POWDER PACKET GT SCH (09:04)
[2017-03-05] MEDS: BACLOFEN (10 MG) 10 MG TABLET GT SCH ×3 (09:04→17:16)
[2017-03-05] MEDS: LEVETIRACETAM SOL (5 ML) 100 MG/ML UDC GT SCH ×2 (09:04→21:21)
[2017-03-05] MEDS: FERROUS SULFATE - FOR SA ONLY 330 MG/7.5 ML UDC GT SCH ×3 (09:04→17:16)
[2017-03-05] MEDS: DOCUSATE SODIUM LIQ 100 MG/10 ML UDC GT SCH ×2 (09:04→17:16)
[2017-03-05] MEDS: GLYCOPYRROLATE 1 MG TABLET GT SCH ×2 (09:04→17:16)
[2017-03-05] MEDS: HYDROGEN PEROXIDE 480 ML BOTTLE TP SCH ×2 (11:00→21:21)
[2017-03-05] MEDS: Z GUARD REMEDY 4 OZ OINT TP SCH ×2 (11:00→21:21)
[2017-03-05] MEDS: Z GUARD REMEDY 2 OZ OINT TP SCH ×2 (11:00→21:21)
[2017-03-05 20:11] VITALS: BP 107/73
[2017-03-05] MEDS: MULTIVIT, IRON, MIN NO. 8, FA 1 TAB GT SCH (21:21)
[2017-03-05] MEDS: INSULIN DETEMIR 100 UNIT/ML CARTRIDGE SQ SCH (21:29)
[2017-03-06] MEDS: POLYVINYL ALCOHOL 15 ML BOTTLE EACHEYE SCH ×4 (00:54→17:10)
[2017-03-06] MEDS: IPRATROPIUM NEB FS 0.5 MG/2.5 ML AMPUL.NEB NEB SCH ×4 (02:21→19:15)
[2017-03-06] MEDS: ALBUTEROL FS 2.5 MG/3 ML VIAL.NEB NEB SCH ×4 (02:21→19:15)
[2017-03-06] MEDS: GLYTROL 1,000 ML BAG GT PRN (05:12)
[2017-03-06] MEDS: BLOOD SUGAR DIAGNOSTIC 1 EACH STRIP IN SCH ×2 (06:29→17:10)
[2017-03-06] MEDS: PANTOPRAZOLE 40 MG/PACK PACK GT SCH (06:29)
[2017-03-06 07:30] VITALS: BP 106/72
[2017-03-06] MEDS: FERROUS SULFATE - FOR SA ONLY 330 MG/7.5 ML UDC GT SCH ×3 (09:25→17:10)
[2017-03-06] MEDS: HYDROGEN PEROXIDE 480 ML BOTTLE TP SCH ×2 (09:25→21:20)
[2017-03-06] MEDS: Z GUARD REMEDY 2 OZ OINT TP SCH ×2 (09:25→21:20)
[2017-03-06] MEDS: BACLOFEN (10 MG) 10 MG TABLET GT SCH ×3 (09:25→17:10)
[2017-03-06] MEDS: ASCORBIC ACID 500 MG TABLET GT SCH ×2 (09:25→17:10)
[2017-03-06] MEDS: GLYCOPYRROLATE 1 MG TABLET GT SCH ×2 (09:25→17:10)
[2017-03-06] MEDS: LEVETIRACETAM SOL (5 ML) 100 MG/ML UDC GT SCH ×2 (09:25→21:20)
[2017-03-06] MEDS: Z GUARD REMEDY 4 OZ OINT TP SCH ×2 (09:25→21:20)
[2017-03-06] MEDS: POTASSIUM CHLORIDE 20 MEQ POWDER PACKET GT SCH (09:25)
[2017-03-06] MEDS: DOCUSATE SODIUM LIQ 100 MG/10 ML UDC GT SCH ×2 (09:28→17:10)
[2017-03-06 20:07] VITALS: BP 114/70
[2017-03-06] MEDS: INSULIN DETEMIR 100 UNIT/ML CARTRIDGE SQ SCH (21:20)
[2017-03-06] MEDS: MULTIVIT, IRON, MIN NO. 8, FA 1 TAB GT SCH (21:20)
[2017-03-07] MEDS: POLYVINYL ALCOHOL 15 ML BOTTLE EACHEYE SCH ×5 (00:47→23:19)
[2017-03-07] MEDS: IPRATROPIUM NEB FS 0.5 MG/2.5 ML AMPUL.NEB NEB SCH ×4 (01:22→19:33)
[2017-03-07] MEDS: ALBUTEROL FS 2.5 MG/3 ML VIAL.NEB NEB SCH ×4 (01:22→19:33)
[2017-03-07] MEDS: BLOOD SUGAR DIAGNOSTIC 1 EACH STRIP IN SCH ×2 (05:16→18:30)
[2017-03-07] MEDS: PANTOPRAZOLE 40 MG/PACK PACK GT SCH (05:16)
[2017-03-07 07:30] LABS: CALCIUM, SERUM 9.2 mg/dL (8.5-10.1); CREATININE 0.6 mg/dL (0.6-1.3)
[2017-03-07 07:31] VITALS: BP 139/71
[2017-03-07] MEDS: GLYCOPYRROLATE 1 MG TABLET GT SCH ×2 (08:38→17:00)
[2017-03-07] MEDS: FERROUS SULFATE - FOR SA ONLY 330 MG/7.5 ML UDC GT SCH ×3 (08:38→17:00)
[2017-03-07] MEDS: DOCUSATE SODIUM LIQ 100 MG/10 ML UDC GT SCH ×2 (08:38→17:00)
[2017-03-07] MEDS: LEVETIRACETAM SOL (5 ML) 100 MG/ML UDC GT SCH ×2 (08:38→21:16)
[2017-03-07] MEDS: BACLOFEN (10 MG) 10 MG TABLET GT SCH ×3 (08:39→17:00)
[2017-03-07] MEDS: ASCORBIC ACID 500 MG TABLET GT SCH ×2 (08:39→17:00)
[2017-03-07] MEDS: Z GUARD REMEDY 4 OZ OINT TP SCH ×2 (08:39→21:17)
[2017-03-07] MEDS: POTASSIUM CHLORIDE 20 MEQ POWDER PACKET GT SCH (08:39)
[2017-03-07] MEDS: Z GUARD REMEDY 2 OZ OINT TP SCH ×2 (08:39→21:16)
[2017-03-07] MEDS: HYDROGEN PEROXIDE 480 ML BOTTLE TP SCH ×2 (08:39→21:16)
--- NOTE | 2017-03-07 09:15 | NUR ---
RT PATIENT REC'D TRACHED ON [facility] VENT WITH SETTINGS SET PER MD TUTU GUERIN. VENT ALARMS CHECKED + AUDIBLE. CUFF PRESSURE CHECKED PRODUCTION STATISTICAL CLERK. VENT PLUGGED INTO RED OUTLET. SUCTIONED WITH SMALL/MOD AMT PALE SEMITHICK SECRETIONS. B/S DIM COARSE. AMBU BAG + BACK UP TRACH AT HOB. CONT CURRENT PLAN OF RESP CARE. Addendum: 03/07/17 at 0919 by MERISSA BHATT RT Amended: Links added.
--- NOTE | 2017-03-07 13:00 | NUR ---
Seen by BODY ART TECHNICIAN Mya Rodgers. Relayed BMP result to her. No new order.
[2017-03-07] MEDS: INSULIN LISPRO/ASPART 100 UNIT/ML CARTRIDGE SQ PRN (18:31)
[2017-03-07 20:05] VITALS: BP 111/70
[2017-03-07] MEDS: MULTIVIT, IRON, MIN NO. 8, FA 1 TAB GT SCH (21:16)
[2017-03-07] MEDS: INSULIN DETEMIR 100 UNIT/ML CARTRIDGE SQ SCH (21:17)
[2017-03-08] MEDS: ALBUTEROL FS 2.5 MG/3 ML VIAL.NEB NEB SCH ×4 (02:28→20:13)
[2017-03-08] MEDS: IPRATROPIUM NEB FS 0.5 MG/2.5 ML AMPUL.NEB NEB SCH ×4 (02:28→20:13)
[2017-03-08] MEDS: PANTOPRAZOLE 40 MG/PACK PACK GT SCH (05:47)
[2017-03-08] MEDS: BLOOD SUGAR DIAGNOSTIC 1 EACH STRIP IN SCH ×2 (05:47→17:49)
[2017-03-08] MEDS: POLYVINYL ALCOHOL 15 ML BOTTLE EACHEYE SCH ×3 (05:47→17:49)
[2017-03-08] MEDS: DOCUSATE SODIUM LIQ 100 MG/10 ML UDC GT SCH ×2 (08:37→16:58)
[2017-03-08] MEDS: HYDROGEN PEROXIDE 480 ML BOTTLE TP SCH ×2 (08:37→21:00)
[2017-03-08] MEDS: BACLOFEN (10 MG) 10 MG TABLET GT SCH ×3 (08:37→16:58)
[2017-03-08] MEDS: LEVETIRACETAM SOL (5 ML) 100 MG/ML UDC GT SCH ×2 (08:37→22:04)
[2017-03-08] MEDS: ASCORBIC ACID 500 MG TABLET GT SCH ×2 (08:37→16:58)
[2017-03-08] MEDS: GLYCOPYRROLATE 1 MG TABLET GT SCH ×2 (08:37→16:58)
[2017-03-08] MEDS: POTASSIUM CHLORIDE 20 MEQ POWDER PACKET GT SCH (08:37)
[2017-03-08] MEDS: Z GUARD REMEDY 2 OZ OINT TP SCH ×2 (08:37→21:00)
[2017-03-08] MEDS: FERROUS SULFATE - FOR SA ONLY 330 MG/7.5 ML UDC GT SCH ×3 (08:37→16:58)
[2017-03-08] MEDS: Z GUARD REMEDY 4 OZ OINT TP SCH ×2 (08:37→21:00)
[2017-03-08 20:02] VITALS: BP 110/70
[2017-03-08] MEDS: MULTIVIT, IRON, MIN NO. 8, FA 1 TAB GT SCH (22:04)
[2017-03-08] MEDS: INSULIN DETEMIR 100 UNIT/ML CARTRIDGE SQ SCH (22:09)
[2017-03-09] MEDS: POLYVINYL ALCOHOL 15 ML BOTTLE EACHEYE SCH ×4 (00:12→17:10)
[2017-03-09] MEDS: ALBUTEROL FS 2.5 MG/3 ML VIAL.NEB NEB SCH ×4 (02:23→19:38)
[2017-03-09] MEDS: IPRATROPIUM NEB FS 0.5 MG/2.5 ML AMPUL.NEB NEB SCH ×4 (02:23→19:38)
[2017-03-09] MEDS: GLYTROL 1,000 ML BAG GT PRN ×2 (05:03→22:33)
[2017-03-09] MEDS: PANTOPRAZOLE 40 MG/PACK PACK GT SCH (05:04)
[2017-03-09] MEDS: BLOOD SUGAR DIAGNOSTIC 1 EACH STRIP IN SCH ×2 (05:10→18:20)
[2017-03-09 07:45] VITALS: BP 122/53
[2017-03-09] MEDS: GLYCOPYRROLATE 1 MG TABLET GT SCH ×2 (08:31→17:04)
[2017-03-09] MEDS: DOCUSATE SODIUM LIQ 100 MG/10 ML UDC GT SCH ×2 (08:31→17:04)
[2017-03-09] MEDS: FERROUS SULFATE - FOR SA ONLY 330 MG/7.5 ML UDC GT SCH ×3 (08:31→17:10)
[2017-03-09] MEDS: BACLOFEN (10 MG) 10 MG TABLET GT SCH ×3 (08:32→17:10)
[2017-03-09] MEDS: ASCORBIC ACID 500 MG TABLET GT SCH ×2 (08:32→17:04)
[2017-03-09] MEDS: LEVETIRACETAM SOL (5 ML) 100 MG/ML UDC GT SCH ×2 (08:32→21:56)
[2017-03-09] MEDS: POTASSIUM CHLORIDE 20 MEQ POWDER PACKET GT SCH (08:32)
[2017-03-09] MEDS: Z GUARD REMEDY 2 OZ OINT TP SCH ×2 (09:00→21:56)
[2017-03-09] MEDS: Z GUARD REMEDY 4 OZ OINT TP SCH ×2 (09:00→21:56)
[2017-03-09] MEDS: HYDROGEN PEROXIDE 480 ML BOTTLE TP SCH ×2 (09:00→21:56)
--- NOTE | 2017-03-09 12:12 | NUR ---
Seen and examined by Ana Maria Roque NP, for Dr. Alvarez no new order given at this time.
[2017-03-09] MEDS: INSULIN LISPRO/ASPART 100 UNIT/ML CARTRIDGE SQ PRN ×2 (18:21→18:26)
[2017-03-09 20:06] VITALS: BP 112/74
[2017-03-09] MEDS: MULTIVIT, IRON, MIN NO. 8, FA 1 TAB GT SCH (21:56)
[2017-03-09] MEDS: INSULIN DETEMIR 100 UNIT/ML CARTRIDGE SQ SCH (22:32)
[2017-03-10] MEDS: POLYVINYL ALCOHOL 15 ML BOTTLE EACHEYE SCH ×5 (00:15→23:56)
[2017-03-10] MEDS: IPRATROPIUM NEB FS 0.5 MG/2.5 ML AMPUL.NEB NEB SCH ×4 (00:44→19:14)
[2017-03-10] MEDS: ALBUTEROL FS 2.5 MG/3 ML VIAL.NEB NEB SCH ×4 (00:44→19:14)
[2017-03-10] MEDS: BLOOD SUGAR DIAGNOSTIC 1 EACH STRIP IN SCH ×2 (05:35→18:28)
[2017-03-10] MEDS: INSULIN LISPRO/ASPART 100 UNIT/ML CARTRIDGE SQ PRN ×2 (05:35→18:33)
[2017-03-10] MEDS: PANTOPRAZOLE 40 MG/PACK PACK GT SCH (05:35)
[2017-03-10] MEDS: BISACODYL SUPP (10 MG) 10 MG/SUPP.RECT SUPP.RECT RC PRN (06:15)
[2017-03-10 07:41] VITALS: BP 118/83
[2017-03-10] MEDS: DOCUSATE SODIUM LIQ 100 MG/10 ML UDC GT SCH ×2 (09:33→17:00)
[2017-03-10] MEDS: FERROUS SULFATE - FOR SA ONLY 330 MG/7.5 ML UDC GT SCH ×3 (09:33→17:00)
[2017-03-10] MEDS: GLYCOPYRROLATE 1 MG TABLET GT SCH ×2 (09:33→17:00)
[2017-03-10] MEDS: HYDROGEN PEROXIDE 480 ML BOTTLE TP SCH ×2 (09:34→20:31)
[2017-03-10] MEDS: POTASSIUM CHLORIDE 20 MEQ POWDER PACKET GT SCH (09:34)
[2017-03-10] MEDS: ASCORBIC ACID 500 MG TABLET GT SCH ×2 (09:34→17:00)
[2017-03-10] MEDS: LEVETIRACETAM SOL (5 ML) 100 MG/ML UDC GT SCH ×2 (09:34→20:31)
[2017-03-10] MEDS: Z GUARD REMEDY 4 OZ OINT TP SCH ×2 (09:34→20:31)
[2017-03-10] MEDS: BACLOFEN (10 MG) 10 MG TABLET GT SCH ×3 (09:34→17:00)
[2017-03-10 19:54] VITALS: BP 110/66
[2017-03-10] MEDS: MULTIVIT, IRON, MIN NO. 8, FA 1 TAB GT SCH (20:31)
[2017-03-10] MEDS: INSULIN DETEMIR 100 UNIT/ML CARTRIDGE SQ SCH (21:42)
[2017-03-10] MEDS: GLYTROL 1,000 ML BAG GT PRN (23:56)
[2017-03-11] MEDS: ALBUTEROL FS 2.5 MG/3 ML VIAL.NEB NEB SCH ×4 (02:11→19:47)
[2017-03-11] MEDS: IPRATROPIUM NEB FS 0.5 MG/2.5 ML AMPUL.NEB NEB SCH ×4 (02:11→19:47)
[2017-03-11] MEDS: INSULIN LISPRO/ASPART 100 UNIT/ML CARTRIDGE SQ PRN (05:32)
[2017-03-11] MEDS: BLOOD SUGAR DIAGNOSTIC 1 EACH STRIP IN SCH ×2 (05:32→17:27)
[2017-03-11] MEDS: PANTOPRAZOLE 40 MG/PACK PACK GT SCH (05:32)
[2017-03-11] MEDS: POLYVINYL ALCOHOL 15 ML BOTTLE EACHEYE SCH ×3 (05:32→17:27)
[2017-03-11 07:46] VITALS: BP 98/64
[2017-03-11] MEDS: DOCUSATE SODIUM LIQ 100 MG/10 ML UDC GT SCH ×2 (08:38→17:27)
[2017-03-11] MEDS: LEVETIRACETAM SOL (5 ML) 100 MG/ML UDC GT SCH ×2 (08:39→21:30)
[2017-03-11] MEDS: GLYCOPYRROLATE 1 MG TABLET GT SCH ×2 (08:39→17:27)
[2017-03-11] MEDS: ASCORBIC ACID 500 MG TABLET GT SCH ×2 (08:39→17:27)
[2017-03-11] MEDS: BACLOFEN (10 MG) 10 MG TABLET GT SCH ×3 (08:39→17:27)
[2017-03-11] MEDS: POTASSIUM CHLORIDE 20 MEQ POWDER PACKET GT SCH (08:39)
[2017-03-11] MEDS: FERROUS SULFATE - FOR SA ONLY 330 MG/7.5 ML UDC GT SCH ×3 (08:39→17:27)
[2017-03-11] MEDS: HYDROGEN PEROXIDE 480 ML BOTTLE TP SCH ×2 (08:40→21:31)
[2017-03-11] MEDS: Z GUARD REMEDY 4 OZ OINT TP SCH ×2 (08:40→21:32)
--- NOTE | 2017-03-11 18:55 | NUR ---
Reported to Dr. Alvarez patient with cold sore in the L lower lip with new order for Abreva. Seen and examined by Yuri Wagoner NP, salon professional for Dr. Bullard New order given to start patient on Heparin for DVT prophylaxis. Resident's sister personally notified of new orders.
[2017-03-11 19:48] VITALS: BP 118/74
[2017-03-11] MEDS: MULTIVIT, IRON, MIN NO. 8, FA 1 TAB GT SCH (21:30)
[2017-03-11] MEDS: HEPARIN SODIUM, PORCINE 5000 UNITS/1 ML VIAL SQ SCH (21:31)
[2017-03-11] MEDS: DOCOSANOL TP SCH (21:31)
[2017-03-11] MEDS: INSULIN DETEMIR 100 UNIT/ML CARTRIDGE SQ SCH ×2 (21:33→21:38)
[2017-03-11] MEDS: GLYTROL 1,000 ML BAG GT PRN (21:33)
[2017-03-12] MEDS: POLYVINYL ALCOHOL 15 ML BOTTLE EACHEYE SCH ×5 (00:21→23:44)
[2017-03-12] MEDS: ALBUTEROL FS 2.5 MG/3 ML VIAL.NEB NEB SCH ×4 (01:20→19:51)
[2017-03-12] MEDS: IPRATROPIUM NEB FS 0.5 MG/2.5 ML AMPUL.NEB NEB SCH ×4 (01:20→19:51)
[2017-03-12] MEDS: PANTOPRAZOLE 40 MG/PACK PACK GT SCH (05:20)
[2017-03-12] MEDS: BLOOD SUGAR DIAGNOSTIC 1 EACH STRIP IN SCH ×2 (05:20→17:05)
[2017-03-12] MEDS: INSULIN LISPRO/ASPART 100 UNIT/ML CARTRIDGE SQ PRN ×2 (05:20→17:10)
[2017-03-12] MEDS: DOCOSANOL TP SCH ×5 (07:00→21:53)
[2017-03-12] MEDS: POLYETHYLENE GLYCOL 3350 17 GM POWD.PACK GT PRN (07:01)
[2017-03-12 08:18] VITALS: BP 111/64
[2017-03-12] MEDS: Z GUARD REMEDY 4 OZ OINT TP SCH ×2 (09:00→21:53)
[2017-03-12] MEDS: HYDROGEN PEROXIDE 480 ML BOTTLE TP SCH ×2 (09:00→21:53)
[2017-03-12] MEDS: GLYCOPYRROLATE 1 MG TABLET GT SCH ×2 (09:23→17:05)
[2017-03-12] MEDS: FERROUS SULFATE - FOR SA ONLY 330 MG/7.5 ML UDC GT SCH ×3 (09:23→17:05)
[2017-03-12] MEDS: DOCUSATE SODIUM LIQ 100 MG/10 ML UDC GT SCH ×2 (09:23→17:05)
[2017-03-12] MEDS: BACLOFEN (10 MG) 10 MG TABLET GT SCH ×3 (09:24→17:05)
[2017-03-12] MEDS: LEVETIRACETAM SOL (5 ML) 100 MG/ML UDC GT SCH ×2 (09:24→21:52)
[2017-03-12] MEDS: ASCORBIC ACID 500 MG TABLET GT SCH ×2 (09:24→17:05)
[2017-03-12] MEDS: POTASSIUM CHLORIDE 20 MEQ POWDER PACKET GT SCH (09:24)
[2017-03-12] MEDS: HEPARIN SODIUM, PORCINE 5000 UNITS/1 ML VIAL SQ SCH ×2 (09:27→21:53)
[2017-03-12 19:56] VITALS: BP 111/68
[2017-03-12] MEDS: MULTIVIT, IRON, MIN NO. 8, FA 1 TAB GT SCH (21:53)
[2017-03-12] MEDS: GLYTROL 1,000 ML BAG GT PRN (21:53)
[2017-03-12] MEDS: INSULIN DETEMIR 100 UNIT/ML CARTRIDGE SQ SCH (22:24)
[2017-03-13] MEDS: ALBUTEROL FS 2.5 MG/3 ML VIAL.NEB NEB SCH ×4 (02:10→19:10)
[2017-03-13] MEDS: IPRATROPIUM NEB FS 0.5 MG/2.5 ML AMPUL.NEB NEB SCH ×4 (02:10→19:10)
[2017-03-13] MEDS: INSULIN LISPRO/ASPART 100 UNIT/ML CARTRIDGE SQ PRN (05:15)
[2017-03-13] MEDS: POLYVINYL ALCOHOL 15 ML BOTTLE EACHEYE SCH ×3 (05:15→17:36)
[2017-03-13] MEDS: BLOOD SUGAR DIAGNOSTIC 1 EACH STRIP IN SCH ×2 (05:15→17:54)
[2017-03-13] MEDS: PANTOPRAZOLE 40 MG/PACK PACK GT SCH (05:15)
[2017-03-13] MEDS: BISACODYL SUPP (10 MG) 10 MG/SUPP.RECT SUPP.RECT RC PRN (05:24)
[2017-03-13] MEDS: DOCOSANOL TP SCH ×5 (07:03→21:30)
[2017-03-13 07:39] VITALS: BP 94/64
--- NOTE | 2017-03-13 09:21 | NUR ---
RT PATIENT REC'D TRACHED ON [facility] VENT WITH SETTINGS SET PER MD TUTU GUERIN. VENT ALARMS CHECKED + AUDIBLE. CUFF PRESSURE CHECKED AIR TRAFFIC COORDINATOR. VENT PLUGGED INTO RED OUTLET. SUCTIONED WITH SMALL/MOD AMT PALE SEMITHICK SECRETIONS. B/S DIM COARSE. AMBU BAG + BACK UP TRACH AT HOB. CONT CURRENT PLAN OF RESP CARE. Addendum: 03/13/17 at 0921 by MERISSA BHATT RT Amended: Links added.
[2017-03-13] MEDS: BACLOFEN (10 MG) 10 MG TABLET GT SCH ×3 (09:29→17:36)
[2017-03-13] MEDS: GLYCOPYRROLATE 1 MG TABLET GT SCH ×2 (09:29→17:36)
[2017-03-13] MEDS: DOCUSATE SODIUM LIQ 100 MG/10 ML UDC GT SCH ×2 (09:29→17:36)
[2017-03-13] MEDS: LEVETIRACETAM SOL (5 ML) 100 MG/ML UDC GT SCH ×2 (09:29→21:29)
[2017-03-13] MEDS: FERROUS SULFATE - FOR SA ONLY 330 MG/7.5 ML UDC GT SCH ×3 (09:29→17:36)
[2017-03-13] MEDS: ASCORBIC ACID 500 MG TABLET GT SCH ×2 (09:29→17:36)
[2017-03-13] MEDS: POTASSIUM CHLORIDE 20 MEQ POWDER PACKET GT SCH (09:29)
[2017-03-13] MEDS: HEPARIN SODIUM, PORCINE 5000 UNITS/1 ML VIAL SQ SCH ×2 (09:29→21:29)
[2017-03-13] MEDS: HYDROGEN PEROXIDE 480 ML BOTTLE TP SCH ×2 (09:30→21:29)
[2017-03-13] MEDS: Z GUARD REMEDY 4 OZ OINT TP SCH ×2 (09:30→21:30)
[2017-03-13] MEDS: GLYTROL 1,000 ML BAG GT PRN (17:36)
[2017-03-13 20:03] VITALS: BP 98/63
[2017-03-13] MEDS: MULTIVIT, IRON, MIN NO. 8, FA 1 TAB GT SCH (21:29)
[2017-03-13] MEDS: INSULIN DETEMIR 100 UNIT/ML CARTRIDGE SQ SCH (21:48)
[2017-03-14] MEDS: IPRATROPIUM NEB FS 0.5 MG/2.5 ML AMPUL.NEB NEB SCH ×4 (00:47→19:43)
[2017-03-14] MEDS: ALBUTEROL FS 2.5 MG/3 ML VIAL.NEB NEB SCH ×4 (00:47→19:43)
[2017-03-14] MEDS: ACETAMINOPHEN 650 MG/20 ML UDC- FOR SA PATIENTS ONLY GT PRN (01:22)
[2017-03-14] MEDS: PANTOPRAZOLE 40 MG/PACK PACK GT SCH (05:39)
[2017-03-14] MEDS: POLYVINYL ALCOHOL 15 ML BOTTLE EACHEYE SCH ×5 (05:39→23:36)
[2017-03-14] MEDS: BLOOD SUGAR DIAGNOSTIC 1 EACH STRIP IN SCH ×2 (05:39→18:19)
[2017-03-14] MEDS: INSULIN LISPRO/ASPART 100 UNIT/ML CARTRIDGE SQ PRN ×2 (05:40→18:19)
[2017-03-14] MEDS: DOCOSANOL TP SCH ×5 (07:00→21:22)
[2017-03-14] MEDS: BACLOFEN (10 MG) 10 MG TABLET GT SCH ×3 (08:55→17:26)
[2017-03-14] MEDS: GLYCOPYRROLATE 1 MG TABLET GT SCH ×2 (08:55→17:26)
[2017-03-14] MEDS: POTASSIUM CHLORIDE 20 MEQ POWDER PACKET GT SCH (08:55)
[2017-03-14] MEDS: FERROUS SULFATE - FOR SA ONLY 330 MG/7.5 ML UDC GT SCH ×3 (08:55→17:26)
[2017-03-14] MEDS: Z GUARD REMEDY 4 OZ OINT TP SCH ×2 (08:55→21:22)
[2017-03-14] MEDS: HEPARIN SODIUM, PORCINE 5000 UNITS/1 ML VIAL SQ SCH ×2 (08:55→21:10)
[2017-03-14] MEDS: DOCUSATE SODIUM LIQ 100 MG/10 ML UDC GT SCH ×2 (08:55→17:26)
[2017-03-14] MEDS: ASCORBIC ACID 500 MG TABLET GT SCH ×2 (08:55→17:26)
[2017-03-14] MEDS: HYDROGEN PEROXIDE 480 ML BOTTLE TP SCH ×2 (08:55→21:22)
[2017-03-14] MEDS: LEVETIRACETAM SOL (5 ML) 100 MG/ML UDC GT SCH ×2 (08:55→21:09)
[2017-03-14] MEDS ORDERED: TUBERCULIN,PURIF.PROT.DERIV. 5 TU/0.1 ML VIAL ID SCH (09:00)
[2017-03-14 12:37] VITALS: BP 102/58
[2017-03-14 20:00] VITALS: BP 102/73
[2017-03-14 20:04] VITALS: BP 102/73
[2017-03-14] MEDS: MULTIVIT, IRON, MIN NO. 8, FA 1 TAB GT SCH (21:10)
[2017-03-14] MEDS: INSULIN DETEMIR 100 UNIT/ML CARTRIDGE SQ SCH (21:21)
[2017-03-15] MEDS: IPRATROPIUM NEB FS 0.5 MG/2.5 ML AMPUL.NEB NEB SCH ×4 (01:57→19:41)
[2017-03-15] MEDS: ALBUTEROL FS 2.5 MG/3 ML VIAL.NEB NEB SCH ×4 (01:57→19:41)
[2017-03-15] MEDS: PANTOPRAZOLE 40 MG/PACK PACK GT SCH (05:10)
[2017-03-15] MEDS: POLYVINYL ALCOHOL 15 ML BOTTLE EACHEYE SCH ×3 (05:10→17:03)
[2017-03-15] MEDS: BLOOD SUGAR DIAGNOSTIC 1 EACH STRIP IN SCH ×2 (05:10→17:53)
[2017-03-15] MEDS: INSULIN LISPRO/ASPART 100 UNIT/ML CARTRIDGE SQ PRN ×2 (05:27→17:53)
--- NOTE | 2017-03-15 05:27 | NUR ---
RN NOTES NO INSULIN GIVEN, ACCUCHECK 138 MG/DL
[2017-03-15] MEDS: DOCOSANOL TP SCH ×5 (06:12→20:07)
[2017-03-15 07:53] VITALS: BP 140/80
[2017-03-15] MEDS: GLYCOPYRROLATE 1 MG TABLET GT SCH ×2 (08:35→17:03)
[2017-03-15] MEDS: BACLOFEN (10 MG) 10 MG TABLET GT SCH ×3 (08:35→17:03)
[2017-03-15] MEDS: LEVETIRACETAM SOL (5 ML) 100 MG/ML UDC GT SCH ×2 (08:35→20:06)
[2017-03-15] MEDS: ASCORBIC ACID 500 MG TABLET GT SCH ×2 (08:35→17:03)
[2017-03-15] MEDS: POTASSIUM CHLORIDE 20 MEQ POWDER PACKET GT SCH (08:35)
[2017-03-15] MEDS: FERROUS SULFATE - FOR SA ONLY 330 MG/7.5 ML UDC GT SCH ×3 (08:35→17:03)
[2017-03-15] MEDS: DOCUSATE SODIUM LIQ 100 MG/10 ML UDC GT SCH ×2 (08:35→17:03)
[2017-03-15] MEDS: Z GUARD REMEDY 4 OZ OINT TP SCH ×2 (08:36→20:07)
[2017-03-15] MEDS: HYDROGEN PEROXIDE 480 ML BOTTLE TP SCH ×2 (08:36→20:06)
[2017-03-15] MEDS: HEPARIN SODIUM, PORCINE 5000 UNITS/1 ML VIAL SQ SCH ×2 (08:36→20:06)
[2017-03-15 19:54] VITALS: BP 106/66
[2017-03-15] MEDS: MULTIVIT, IRON, MIN NO. 8, FA 1 TAB GT SCH (20:06)
[2017-03-15] MEDS: INSULIN DETEMIR 100 UNIT/ML CARTRIDGE SQ SCH (22:00)
[2017-03-16] MEDS: IPRATROPIUM NEB FS 0.5 MG/2.5 ML AMPUL.NEB NEB SCH ×4 (01:47→19:42)
[2017-03-16] MEDS: ALBUTEROL FS 2.5 MG/3 ML VIAL.NEB NEB SCH ×4 (01:47→19:42)
[2017-03-16] MEDS: PANTOPRAZOLE 40 MG/PACK PACK GT SCH (06:12)
[2017-03-16] MEDS: BLOOD SUGAR DIAGNOSTIC 1 EACH STRIP IN SCH ×2 (06:12→17:51)
[2017-03-16] MEDS: POLYVINYL ALCOHOL 15 ML BOTTLE EACHEYE SCH ×4 (06:12→17:51)
[2017-03-16] MEDS: DOCOSANOL TP SCH ×5 (06:12→21:26)
[2017-03-16] MEDS: LEVETIRACETAM SOL (5 ML) 100 MG/ML UDC GT SCH ×2 (09:00→21:25)
[2017-03-16] MEDS: POTASSIUM CHLORIDE 20 MEQ POWDER PACKET GT SCH (09:10)
[2017-03-16] MEDS: FERROUS SULFATE - FOR SA ONLY 330 MG/7.5 ML UDC GT SCH ×3 (09:10→16:50)
[2017-03-16] MEDS: BACLOFEN (10 MG) 10 MG TABLET GT SCH ×3 (09:10→16:50)
[2017-03-16] MEDS: DOCUSATE SODIUM LIQ 100 MG/10 ML UDC GT SCH ×2 (09:10→16:50)
[2017-03-16] MEDS: ASCORBIC ACID 500 MG TABLET GT SCH ×2 (09:10→16:50)
[2017-03-16] MEDS: GLYCOPYRROLATE 1 MG TABLET GT SCH ×2 (09:10→16:50)
[2017-03-16] MEDS: HYDROGEN PEROXIDE 480 ML BOTTLE TP SCH ×2 (09:11→21:26)
[2017-03-16] MEDS: Z GUARD REMEDY 4 OZ OINT TP SCH ×2 (09:11→21:26)
[2017-03-16] MEDS: HEPARIN SODIUM, PORCINE 5000 UNITS/1 ML VIAL SQ SCH ×2 (09:11→21:26)
[2017-03-16 12:20] VITALS: BP 131/70
[2017-03-16] MEDS: GLYTROL 1,000 ML BAG GT PRN (13:07)
[2017-03-16] MEDS: INSULIN LISPRO/ASPART 100 UNIT/ML CARTRIDGE SQ PRN (17:52)
[2017-03-16] MEDS: MULTIVIT, IRON, MIN NO. 8, FA 1 TAB GT SCH (21:25)
[2017-03-16] MEDS: INSULIN DETEMIR 100 UNIT/ML CARTRIDGE SQ SCH (21:27)
[2017-03-17] MEDS: POLYVINYL ALCOHOL 15 ML BOTTLE EACHEYE SCH ×4 (00:33→17:00)
[2017-03-17] MEDS: ALBUTEROL FS 2.5 MG/3 ML VIAL.NEB NEB SCH ×4 (01:33→20:25)
[2017-03-17] MEDS: IPRATROPIUM NEB FS 0.5 MG/2.5 ML AMPUL.NEB NEB SCH ×4 (01:33→20:25)
[2017-03-17] MEDS: BLOOD SUGAR DIAGNOSTIC 1 EACH STRIP IN SCH ×2 (05:39→17:44)
[2017-03-17] MEDS: PANTOPRAZOLE 40 MG/PACK PACK GT SCH (05:39)
[2017-03-17] MEDS: INSULIN LISPRO/ASPART 100 UNIT/ML CARTRIDGE SQ PRN ×2 (05:39→17:44)
[2017-03-17] MEDS: POLYETHYLENE GLYCOL 3350 17 GM POWD.PACK GT PRN (06:49)
[2017-03-17] MEDS: DOCOSANOL TP SCH ×5 (07:07→21:36)
[2017-03-17 07:37] VITALS: BP 101/72
[2017-03-17] MEDS: DOCUSATE SODIUM LIQ 100 MG/10 ML UDC GT SCH ×2 (09:14→16:59)
[2017-03-17] MEDS: GLYCOPYRROLATE 1 MG TABLET GT SCH ×2 (09:15→16:59)
[2017-03-17] MEDS: FERROUS SULFATE - FOR SA ONLY 330 MG/7.5 ML UDC GT SCH ×3 (09:15→16:59)
[2017-03-17] MEDS: LEVETIRACETAM SOL (5 ML) 100 MG/ML UDC GT SCH ×2 (09:17→21:35)
[2017-03-17] MEDS: POTASSIUM CHLORIDE 20 MEQ POWDER PACKET GT SCH (09:21)
[2017-03-17] MEDS: BACLOFEN (10 MG) 10 MG TABLET GT SCH ×3 (09:21→16:59)
[2017-03-17] MEDS: ASCORBIC ACID 500 MG TABLET GT SCH ×2 (09:21→16:59)
[2017-03-17] MEDS: Z GUARD REMEDY 4 OZ OINT TP SCH ×2 (09:22→21:36)
[2017-03-17] MEDS: HYDROGEN PEROXIDE 480 ML BOTTLE TP SCH ×2 (09:22→21:35)
[2017-03-17] MEDS: HEPARIN SODIUM, PORCINE 5000 UNITS/1 ML VIAL SQ SCH ×2 (09:23→21:35)
[2017-03-17 19:29] VITALS: BP 103/69
[2017-03-17] MEDS: MULTIVIT, IRON, MIN NO. 8, FA 1 TAB GT SCH (21:35)
[2017-03-17] MEDS: INSULIN DETEMIR 100 UNIT/ML CARTRIDGE SQ SCH (21:36)
[2017-03-17] MEDS: BISACODYL SUPP (10 MG) 10 MG/SUPP.RECT SUPP.RECT RC PRN (22:04)
[2017-03-18] MEDS: POLYVINYL ALCOHOL 15 ML BOTTLE EACHEYE SCH ×5 (00:43→23:30)
[2017-03-18] MEDS: IPRATROPIUM NEB FS 0.5 MG/2.5 ML AMPUL.NEB NEB SCH ×4 (01:34→19:06)
[2017-03-18] MEDS: ALBUTEROL FS 2.5 MG/3 ML VIAL.NEB NEB SCH ×4 (01:34→19:07)
[2017-03-18] MEDS: BLOOD SUGAR DIAGNOSTIC 1 EACH STRIP IN SCH ×2 (06:00→18:18)
[2017-03-18] MEDS: PANTOPRAZOLE 40 MG/PACK PACK GT SCH (06:00)
[2017-03-18] MEDS: GLYTROL 1,000 ML BAG GT PRN (06:01)
[2017-03-18] MEDS: INSULIN LISPRO/ASPART 100 UNIT/ML CARTRIDGE SQ PRN ×2 (06:01→18:19)
[2017-03-18] MEDS: DOCOSANOL TP SCH ×5 (07:03→21:44)
[2017-03-18 07:24] VITALS: BP 109/72
[2017-03-18] MEDS: HYDROGEN PEROXIDE 480 ML BOTTLE TP SCH ×2 (09:00→21:44)
[2017-03-18] MEDS: Z GUARD REMEDY 4 OZ OINT TP SCH ×2 (09:00→21:44)
[2017-03-18] MEDS: DOCUSATE SODIUM LIQ 100 MG/10 ML UDC GT SCH ×2 (09:55→17:08)
[2017-03-18] MEDS: LEVETIRACETAM SOL (5 ML) 100 MG/ML UDC GT SCH ×2 (09:56→21:44)
[2017-03-18] MEDS: POTASSIUM CHLORIDE 20 MEQ POWDER PACKET GT SCH (09:56)
[2017-03-18] MEDS: FERROUS SULFATE - FOR SA ONLY 330 MG/7.5 ML UDC GT SCH ×3 (09:56→17:08)
[2017-03-18] MEDS: GLYCOPYRROLATE 1 MG TABLET GT SCH ×2 (09:56→17:08)
[2017-03-18] MEDS: BACLOFEN (10 MG) 10 MG TABLET GT SCH ×3 (09:57→17:08)
[2017-03-18] MEDS: ASCORBIC ACID 500 MG TABLET GT SCH ×2 (09:59→17:08)
[2017-03-18] MEDS: HEPARIN SODIUM, PORCINE 5000 UNITS/1 ML VIAL SQ SCH ×2 (10:00→21:44)
[2017-03-18 19:31] VITALS: BP 105/62
[2017-03-18] MEDS: MULTIVIT, IRON, MIN NO. 8, FA 1 TAB GT SCH (21:44)
[2017-03-18] MEDS: INSULIN DETEMIR 100 UNIT/ML CARTRIDGE SQ SCH (21:45)
[2017-03-19] MEDS: IPRATROPIUM NEB FS 0.5 MG/2.5 ML AMPUL.NEB NEB SCH ×4 (01:21→20:25)
[2017-03-19] MEDS: ALBUTEROL FS 2.5 MG/3 ML VIAL.NEB NEB SCH ×4 (01:21→20:25)
[2017-03-19] MEDS: GLYTROL 1,000 ML BAG GT PRN ×2 (01:22→23:08)
[2017-03-19] MEDS: PANTOPRAZOLE 40 MG/PACK PACK GT SCH (05:53)
[2017-03-19] MEDS: POLYVINYL ALCOHOL 15 ML BOTTLE EACHEYE SCH ×3 (05:53→17:32)
[2017-03-19] MEDS: BLOOD SUGAR DIAGNOSTIC 1 EACH STRIP IN SCH ×2 (05:53→17:32)
[2017-03-19] MEDS: INSULIN LISPRO/ASPART 100 UNIT/ML CARTRIDGE SQ PRN ×2 (05:54→17:42)
[2017-03-19] MEDS: DOCOSANOL TP SCH ×5 (07:05→21:30)
[2017-03-19 07:29] VITALS: BP 112/60
[2017-03-19] MEDS: FERROUS SULFATE - FOR SA ONLY 330 MG/7.5 ML UDC GT SCH ×3 (09:55→17:32)
[2017-03-19] MEDS: GLYCOPYRROLATE 1 MG TABLET GT SCH ×2 (09:55→17:32)
[2017-03-19] MEDS: LEVETIRACETAM SOL (5 ML) 100 MG/ML UDC GT SCH ×2 (09:55→21:29)
[2017-03-19] MEDS: DOCUSATE SODIUM LIQ 100 MG/10 ML UDC GT SCH ×2 (09:55→17:32)
[2017-03-19] MEDS: POTASSIUM CHLORIDE 20 MEQ POWDER PACKET GT SCH (09:55)
[2017-03-19] MEDS: HYDROGEN PEROXIDE 480 ML BOTTLE TP SCH ×2 (09:56→21:29)
[2017-03-19] MEDS: HEPARIN SODIUM, PORCINE 5000 UNITS/1 ML VIAL SQ SCH ×2 (09:56→21:29)
[2017-03-19] MEDS: ASCORBIC ACID 500 MG TABLET GT SCH ×2 (09:56→17:32)
[2017-03-19] MEDS: Z GUARD REMEDY 4 OZ OINT TP SCH ×2 (09:56→21:30)
[2017-03-19] MEDS: BACLOFEN (10 MG) 10 MG TABLET GT SCH ×3 (09:56→17:32)
[2017-03-19 19:36] VITALS: BP 102/64
[2017-03-19] MEDS: MULTIVIT, IRON, MIN NO. 8, FA 1 TAB GT SCH (21:29)
[2017-03-19] MEDS: INSULIN DETEMIR 100 UNIT/ML CARTRIDGE SQ SCH (22:29)
[2017-03-20] MEDS: IPRATROPIUM NEB FS 0.5 MG/2.5 ML AMPUL.NEB NEB SCH ×4 (02:19→19:25)
[2017-03-20] MEDS: ALBUTEROL FS 2.5 MG/3 ML VIAL.NEB NEB SCH ×4 (02:19→19:25)
[2017-03-20] MEDS: BLOOD SUGAR DIAGNOSTIC 1 EACH STRIP IN SCH ×2 (06:01→17:47)
[2017-03-20] MEDS: PANTOPRAZOLE 40 MG/PACK PACK GT SCH (06:01)
[2017-03-20] MEDS: POLYVINYL ALCOHOL 15 ML BOTTLE EACHEYE SCH ×4 (06:01→17:47)
[2017-03-20] MEDS: INSULIN LISPRO/ASPART 100 UNIT/ML CARTRIDGE SQ PRN ×2 (06:01→17:48)
[2017-03-20] MEDS: DOCOSANOL TP SCH ×4 (07:20→21:23)
[2017-03-20 07:35] VITALS: BP 106/70
[2017-03-20] MEDS: GLYCOPYRROLATE 1 MG TABLET GT SCH ×2 (09:00→17:46)
[2017-03-20] MEDS: Z GUARD REMEDY 4 OZ OINT TP SCH ×2 (09:00→21:23)
[2017-03-20] MEDS: DOCUSATE SODIUM LIQ 100 MG/10 ML UDC GT SCH ×2 (09:00→17:46)
[2017-03-20] MEDS: BACLOFEN (10 MG) 10 MG TABLET GT SCH ×3 (09:00→17:47)
[2017-03-20] MEDS: HYDROGEN PEROXIDE 480 ML BOTTLE TP SCH ×2 (09:00→21:23)
[2017-03-20] MEDS: FERROUS SULFATE - FOR SA ONLY 330 MG/7.5 ML UDC GT SCH ×3 (09:00→17:46)
[2017-03-20] MEDS: LEVETIRACETAM SOL (5 ML) 100 MG/ML UDC GT SCH ×2 (09:00→21:23)
[2017-03-20] MEDS: HEPARIN SODIUM, PORCINE 5000 UNITS/1 ML VIAL SQ SCH ×2 (09:00→21:23)
[2017-03-20] MEDS: POTASSIUM CHLORIDE 20 MEQ POWDER PACKET GT SCH (09:00)
[2017-03-20] MEDS: ASCORBIC ACID 500 MG TABLET GT SCH ×2 (09:00→17:47)
--- NOTE | 2017-03-20 09:00 | NUR ---
Seen and examined by Dr. Alvarez, NNO given.
[2017-03-20] MEDS: MULTIVIT, IRON, MIN NO. 8, FA 1 TAB GT SCH (21:23)
[2017-03-20] MEDS: GLYTROL 1,000 ML BAG GT PRN (22:01)
[2017-03-20] MEDS: INSULIN DETEMIR 100 UNIT/ML CARTRIDGE SQ SCH (22:06)
[2017-03-20 22:13] VITALS: BP 107/69
[2017-03-21] MEDS: ALBUTEROL FS 2.5 MG/3 ML VIAL.NEB NEB SCH ×4 (01:19→19:38)
[2017-03-21] MEDS: IPRATROPIUM NEB FS 0.5 MG/2.5 ML AMPUL.NEB NEB SCH ×4 (01:19→19:38)
[2017-03-21] MEDS: PANTOPRAZOLE 40 MG/PACK PACK GT SCH (05:51)
[2017-03-21] MEDS: BLOOD SUGAR DIAGNOSTIC 1 EACH STRIP IN SCH ×2 (05:51→18:00)
[2017-03-21] MEDS: POLYVINYL ALCOHOL 15 ML BOTTLE EACHEYE SCH ×4 (05:51→18:38)
[2017-03-21] MEDS: DOCOSANOL TP SCH ×4 (06:00→18:43)
[2017-03-21 08:04] VITALS: BP 99/59
[2017-03-21] MEDS: ASCORBIC ACID 500 MG TABLET GT SCH ×2 (09:31→17:00)
[2017-03-21] MEDS: POTASSIUM CHLORIDE 20 MEQ POWDER PACKET GT SCH (09:31)
[2017-03-21] MEDS: BACLOFEN (10 MG) 10 MG TABLET GT SCH ×3 (09:31→17:00)
[2017-03-21] MEDS: DOCUSATE SODIUM LIQ 100 MG/10 ML UDC GT SCH ×2 (09:31→17:00)
[2017-03-21] MEDS: LEVETIRACETAM SOL (5 ML) 100 MG/ML UDC GT SCH ×2 (09:31→20:37)
[2017-03-21] MEDS: Z GUARD REMEDY 4 OZ OINT TP SCH ×2 (09:31→20:38)
[2017-03-21] MEDS: HYDROGEN PEROXIDE 480 ML BOTTLE TP SCH ×2 (09:31→20:38)
[2017-03-21] MEDS: GLYCOPYRROLATE 1 MG TABLET GT SCH ×2 (09:31→17:00)
[2017-03-21] MEDS: FERROUS SULFATE - FOR SA ONLY 330 MG/7.5 ML UDC GT SCH ×3 (09:31→17:00)
[2017-03-21] MEDS: HEPARIN SODIUM, PORCINE 5000 UNITS/1 ML VIAL SQ SCH ×2 (09:32→20:38)
[2017-03-21] MEDS: INSULIN LISPRO/ASPART 100 UNIT/ML CARTRIDGE SQ PRN (18:38)
[2017-03-21 19:56] VITALS: BP 112/68
[2017-03-21] MEDS: MULTIVIT, IRON, MIN NO. 8, FA 1 TAB GT SCH (20:37)
[2017-03-21] MEDS: INSULIN DETEMIR 100 UNIT/ML CARTRIDGE SQ SCH (21:23)
[2017-03-21] MEDS: GLYTROL 1,000 ML BAG GT PRN (21:36)
[2017-03-22] MEDS: POLYVINYL ALCOHOL 15 ML BOTTLE EACHEYE SCH ×4 (00:41→17:34)
[2017-03-22] MEDS: ALBUTEROL FS 2.5 MG/3 ML VIAL.NEB NEB SCH ×4 (01:53→19:37)
[2017-03-22] MEDS: IPRATROPIUM NEB FS 0.5 MG/2.5 ML AMPUL.NEB NEB SCH ×4 (01:53→19:37)
[2017-03-22] MEDS: BLOOD SUGAR DIAGNOSTIC 1 EACH STRIP IN SCH ×2 (05:05→18:26)
[2017-03-22] MEDS: PANTOPRAZOLE 40 MG/PACK PACK GT SCH (05:05)
--- NOTE | 2017-03-22 07:50 | NUR ---
Received female trach on mechanical. Pt trach is secure. Vent is plugged into a red outlet, alarms are set and audible, and BVM is at bedside. Addendum: 03/22/17 at 0750 by SHABNAM GROSSMAN RT Amended: Links added.
[2017-03-22 07:58] VITALS: BP 109/71
[2017-03-22] MEDS: FERROUS SULFATE - FOR SA ONLY 330 MG/7.5 ML UDC GT SCH ×3 (08:24→17:34)
[2017-03-22] MEDS: POTASSIUM CHLORIDE 20 MEQ POWDER PACKET GT SCH (08:24)
[2017-03-22] MEDS: HYDROGEN PEROXIDE 480 ML BOTTLE TP SCH ×2 (08:24→20:07)
[2017-03-22] MEDS: BACLOFEN (10 MG) 10 MG TABLET GT SCH ×3 (08:24→17:34)
[2017-03-22] MEDS: Z GUARD REMEDY 4 OZ OINT TP SCH ×2 (08:24→20:07)
[2017-03-22] MEDS: GLYCOPYRROLATE 1 MG TABLET GT SCH ×2 (08:24→17:34)
[2017-03-22] MEDS: DOCUSATE SODIUM LIQ 100 MG/10 ML UDC GT SCH ×2 (08:24→17:34)
[2017-03-22] MEDS: LEVETIRACETAM SOL (5 ML) 100 MG/ML UDC GT SCH ×2 (08:24→20:06)
[2017-03-22] MEDS: ASCORBIC ACID 500 MG TABLET GT SCH ×2 (08:24→17:34)
[2017-03-22] MEDS: HEPARIN SODIUM, PORCINE 5000 UNITS/1 ML VIAL SQ SCH ×2 (08:26→20:07)
[2017-03-22] MEDS: INSULIN LISPRO/ASPART 100 UNIT/ML CARTRIDGE SQ PRN (18:27)
[2017-03-22] MEDS: GLYTROL 1,000 ML BAG GT PRN (18:41)
[2017-03-22 19:57] VITALS: BP 96/60
[2017-03-22] MEDS: MULTIVIT, IRON, MIN NO. 8, FA 1 TAB GT SCH (20:06)
[2017-03-22] MEDS: INSULIN DETEMIR 100 UNIT/ML CARTRIDGE SQ SCH (21:33)
[2017-03-23] MEDS: POLYVINYL ALCOHOL 15 ML BOTTLE EACHEYE SCH ×5 (00:16→23:51)
[2017-03-23] MEDS: IPRATROPIUM NEB FS 0.5 MG/2.5 ML AMPUL.NEB NEB SCH ×4 (01:54→20:09)
[2017-03-23] MEDS: ALBUTEROL FS 2.5 MG/3 ML VIAL.NEB NEB SCH ×4 (01:54→20:10)
[2017-03-23] MEDS: PANTOPRAZOLE 40 MG/PACK PACK GT SCH (05:19)
[2017-03-23] MEDS: BLOOD SUGAR DIAGNOSTIC 1 EACH STRIP IN SCH ×2 (05:19→17:49)
[2017-03-23 07:50] VITALS: BP 109/78
[2017-03-23] MEDS: GLYCOPYRROLATE 1 MG TABLET GT SCH ×2 (08:30→17:49)
[2017-03-23] MEDS: ASCORBIC ACID 500 MG TABLET GT SCH ×2 (08:30→17:49)
[2017-03-23] MEDS: FERROUS SULFATE - FOR SA ONLY 330 MG/7.5 ML UDC GT SCH ×3 (08:30→17:49)
[2017-03-23] MEDS: BACLOFEN (10 MG) 10 MG TABLET GT SCH ×3 (08:30→17:49)
[2017-03-23] MEDS: LEVETIRACETAM SOL (5 ML) 100 MG/ML UDC GT SCH ×2 (08:30→20:14)
[2017-03-23] MEDS: POTASSIUM CHLORIDE 20 MEQ POWDER PACKET GT SCH (08:30)
[2017-03-23] MEDS: DOCUSATE SODIUM LIQ 100 MG/10 ML UDC GT SCH ×2 (08:30→17:49)
[2017-03-23] MEDS: Z GUARD REMEDY 4 OZ OINT TP SCH ×2 (08:31→20:14)
[2017-03-23] MEDS: HEPARIN SODIUM, PORCINE 5000 UNITS/1 ML VIAL SQ SCH ×2 (08:31→20:14)
[2017-03-23] MEDS: HYDROGEN PEROXIDE 480 ML BOTTLE TP SCH ×2 (08:31→20:14)
[2017-03-23] MEDS: GLYTROL 1,000 ML BAG GT PRN (17:49)
--- NOTE | 2017-03-23 19:30 | NUR ---
Seen by Dr. Bullard no new order at this time.
[2017-03-23 19:51] VITALS: BP 111/72
[2017-03-23] MEDS: MULTIVIT, IRON, MIN NO. 8, FA 1 TAB GT SCH (20:14)
[2017-03-23] MEDS: INSULIN DETEMIR 100 UNIT/ML CARTRIDGE SQ SCH (21:35)
[2017-03-24] MEDS: ALBUTEROL FS 2.5 MG/3 ML VIAL.NEB NEB SCH ×4 (00:56→19:44)
[2017-03-24] MEDS: IPRATROPIUM NEB FS 0.5 MG/2.5 ML AMPUL.NEB NEB SCH ×4 (00:56→19:44)
[2017-03-24] MEDS: BLOOD SUGAR DIAGNOSTIC 1 EACH STRIP IN SCH ×2 (05:26→18:45)
[2017-03-24] MEDS: INSULIN LISPRO/ASPART 100 UNIT/ML CARTRIDGE SQ PRN (05:26)
[2017-03-24] MEDS: POLYVINYL ALCOHOL 15 ML BOTTLE EACHEYE SCH ×3 (05:26→18:45)
[2017-03-24] MEDS: PANTOPRAZOLE 40 MG/PACK PACK GT SCH (05:26)
[2017-03-24 07:36] VITALS: BP 105/69
[2017-03-24] MEDS: POTASSIUM CHLORIDE 20 MEQ POWDER PACKET GT SCH (09:00)
[2017-03-24] MEDS: Z GUARD REMEDY 4 OZ OINT TP SCH ×2 (09:00→20:24)
[2017-03-24] MEDS: GLYCOPYRROLATE 1 MG TABLET GT SCH ×2 (09:00→17:00)
[2017-03-24] MEDS: ASCORBIC ACID 500 MG TABLET GT SCH ×2 (09:00→17:00)
[2017-03-24] MEDS: HYDROGEN PEROXIDE 480 ML BOTTLE TP SCH ×2 (09:00→20:24)
[2017-03-24] MEDS: LEVETIRACETAM SOL (5 ML) 100 MG/ML UDC GT SCH ×2 (09:00→20:22)
[2017-03-24] MEDS: DOCUSATE SODIUM LIQ 100 MG/10 ML UDC GT SCH ×2 (09:00→17:00)
[2017-03-24] MEDS: BACLOFEN (10 MG) 10 MG TABLET GT SCH ×3 (09:00→17:00)
[2017-03-24] MEDS: HEPARIN SODIUM, PORCINE 5000 UNITS/1 ML VIAL SQ SCH ×2 (09:00→20:23)
[2017-03-24] MEDS: FERROUS SULFATE - FOR SA ONLY 330 MG/7.5 ML UDC GT SCH ×3 (09:00→17:00)
[2017-03-24] MEDS: GLYTROL 1,000 ML BAG GT PRN (13:35)
[2017-03-24] MEDS: ACETAMINOPHEN 650 MG/20 ML UDC- FOR SA PATIENTS ONLY GT PRN (13:45)
[2017-03-24 19:51] VITALS: BP 109/70
[2017-03-24] MEDS: MULTIVIT, IRON, MIN NO. 8, FA 1 TAB GT SCH (20:22)
[2017-03-24] MEDS: INSULIN DETEMIR 100 UNIT/ML CARTRIDGE SQ SCH (21:42)
[2017-03-25] MEDS: POLYVINYL ALCOHOL 15 ML BOTTLE EACHEYE SCH ×4 (00:33→17:34)
[2017-03-25] MEDS: IPRATROPIUM NEB FS 0.5 MG/2.5 ML AMPUL.NEB NEB SCH ×4 (00:48→19:13)
[2017-03-25] MEDS: ALBUTEROL FS 2.5 MG/3 ML VIAL.NEB NEB SCH ×4 (00:48→19:13)
[2017-03-25] MEDS: PANTOPRAZOLE 40 MG/PACK PACK GT SCH (05:40)
[2017-03-25] MEDS: BLOOD SUGAR DIAGNOSTIC 1 EACH STRIP IN SCH ×2 (05:40→17:34)
[2017-03-25] MEDS: INSULIN LISPRO/ASPART 100 UNIT/ML CARTRIDGE SQ PRN ×2 (05:41→17:35)
[2017-03-25 07:43] VITALS: BP 112/72
--- NOTE | 2017-03-25 08:29 | NUR ---
Social Service Section of [facility] (annual) completed. Resident non-communicative. Her sister, Tosin is involved in her care. Discharge to a lower level of care when medically appropriate. Sister feels that she will be a resident of subacute for the terminal operations supervisor. Resident continues to have trach, g-tube, and ventilator.
[2017-03-25] MEDS: POTASSIUM CHLORIDE 20 MEQ POWDER PACKET GT SCH (08:38)
[2017-03-25] MEDS: LEVETIRACETAM SOL (5 ML) 100 MG/ML UDC GT SCH ×2 (08:38→21:19)
[2017-03-25] MEDS: HYDROGEN PEROXIDE 480 ML BOTTLE TP SCH ×2 (08:38→21:19)
[2017-03-25] MEDS: ASCORBIC ACID 500 MG TABLET GT SCH ×2 (08:38→17:34)
[2017-03-25] MEDS: GLYCOPYRROLATE 1 MG TABLET GT SCH ×2 (08:38→17:34)
[2017-03-25] MEDS: BACLOFEN (10 MG) 10 MG TABLET GT SCH ×3 (08:38→17:34)
[2017-03-25] MEDS: FERROUS SULFATE - FOR SA ONLY 330 MG/7.5 ML UDC GT SCH ×3 (08:38→17:34)
[2017-03-25] MEDS: DOCUSATE SODIUM LIQ 100 MG/10 ML UDC GT SCH ×2 (08:38→17:34)
[2017-03-25] MEDS: HEPARIN SODIUM, PORCINE 5000 UNITS/1 ML VIAL SQ SCH ×2 (08:38→21:21)
[2017-03-25] MEDS: Z GUARD REMEDY 4 OZ OINT TP SCH ×2 (08:39→21:19)
[2017-03-25] MEDS: GLYTROL 1,000 ML BAG GT PRN (17:13)
[2017-03-25 19:38] VITALS: BP 98/62
[2017-03-25] MEDS: MULTIVIT, IRON, MIN NO. 8, FA 1 TAB GT SCH (21:19)
[2017-03-25] MEDS: INSULIN DETEMIR 100 UNIT/ML CARTRIDGE SQ SCH (21:51)
[2017-03-26] MEDS: IPRATROPIUM NEB FS 0.5 MG/2.5 ML AMPUL.NEB NEB SCH ×4 (01:41→19:03)
[2017-03-26] MEDS: ALBUTEROL FS 2.5 MG/3 ML VIAL.NEB NEB SCH ×4 (01:41→19:04)
[2017-03-26] MEDS: PANTOPRAZOLE 40 MG/PACK PACK GT SCH (05:56)
[2017-03-26] MEDS: BLOOD SUGAR DIAGNOSTIC 1 EACH STRIP IN SCH ×2 (05:56→17:26)
[2017-03-26] MEDS: POLYVINYL ALCOHOL 15 ML BOTTLE EACHEYE SCH ×5 (05:56→23:16)
[2017-03-26 07:43] VITALS: BP 98/63
[2017-03-26 08:12] LABS: BASOPHILS % (AUTO) 0.4 % (0.0-2.0); EOSINOPHILS # (AUTO) 0.2 /CMM (0.0-0.7); EOSINOPHILS % (AUTO) 2.3 % (0.0-6.0); HEMATOCRIT 37 % (33-45); HEMOGLOBIN 12.1 g/dL (11.5-14.8); LYMPHOCYTES # (AUTO) 2.1 /CMM (0.8-4.8); LYMPHOCYTES % (AUTO) 27.8 % (20.0-44.0); MEAN CORPUSCULAR HEMOGLOBIN 30 PG (26.0-33.0); MEAN CORPUSCULAR HGB CONC 33 g/dl (31.0-36.0); MEAN CORPUSCULAR VOLUME 90 fL (82-100); MONOCYTES # (AUTO) 0.5 /CMM (0.1-1.30); MONOCYTES % (AUTO) 6.2 % (2.0-12.0); NEUTROPHILS # (AUTO) 4.7 /CMM (1.8-8.9); NEUTROPHILS % (AUTO) 63.3 % (43.0-81.0); PLATELET COUNT (AUTO) 281 /CMM (150-450); RDW COEFFICIENT OF VARIATION 14.6 (11.5-15.0); RED BLOOD CELL COUNT(AUTO) 4.04 MIL/uL (4.0-5.2); WHITE BLOOD COUNT (AUTO) 7.4 K/uL (4.3-11.0)
[2017-03-26 08:46] LABS: CALCIUM, SERUM 9.5 mg/dL (8.5-10.1); CREATININE 0.5 mg/dL (0.6-1.3); POTASSIUM 3.9 mmol/L (3.5-5.1)
[2017-03-26] MEDS: GLYCOPYRROLATE 1 MG TABLET GT SCH ×2 (09:57→17:26)
[2017-03-26] MEDS: HEPARIN SODIUM, PORCINE 5000 UNITS/1 ML VIAL SQ SCH ×2 (09:57→21:54)
[2017-03-26] MEDS: HYDROGEN PEROXIDE 480 ML BOTTLE TP SCH ×2 (09:57→21:54)
[2017-03-26] MEDS: POTASSIUM CHLORIDE 20 MEQ POWDER PACKET GT SCH (09:57)
[2017-03-26] MEDS: ASCORBIC ACID 500 MG TABLET GT SCH ×2 (09:57→17:26)
[2017-03-26] MEDS: LEVETIRACETAM SOL (5 ML) 100 MG/ML UDC GT SCH ×2 (09:57→21:53)
[2017-03-26] MEDS: BACLOFEN (10 MG) 10 MG TABLET GT SCH ×3 (09:57→17:26)
[2017-03-26] MEDS: FERROUS SULFATE - FOR SA ONLY 330 MG/7.5 ML UDC GT SCH ×3 (09:57→17:26)
[2017-03-26] MEDS: DOCUSATE SODIUM LIQ 100 MG/10 ML UDC GT SCH ×2 (09:57→17:26)
[2017-03-26] MEDS: Z GUARD REMEDY 4 OZ OINT TP SCH ×2 (09:57→21:54)
[2017-03-26] MEDS: GLYTROL 1,000 ML BAG GT PRN (17:38)
[2017-03-26 19:47] VITALS: BP 102/72
[2017-03-26] MEDS: MULTIVIT, IRON, MIN NO. 8, FA 1 TAB GT SCH (21:53)
[2017-03-26] MEDS: INSULIN DETEMIR 100 UNIT/ML CARTRIDGE SQ SCH (21:55)
[2017-03-27] MEDS: IPRATROPIUM NEB FS 0.5 MG/2.5 ML AMPUL.NEB NEB SCH ×4 (00:35→18:55)
[2017-03-27] MEDS: ALBUTEROL FS 2.5 MG/3 ML VIAL.NEB NEB SCH ×4 (00:35→18:55)
[2017-03-27] MEDS: PANTOPRAZOLE 40 MG/PACK PACK GT SCH (05:15)
[2017-03-27] MEDS: POLYVINYL ALCOHOL 15 ML BOTTLE EACHEYE SCH ×3 (05:15→17:31)
[2017-03-27] MEDS: BLOOD SUGAR DIAGNOSTIC 1 EACH STRIP IN SCH ×2 (05:15→17:42)
[2017-03-27] MEDS: INSULIN LISPRO/ASPART 100 UNIT/ML CARTRIDGE SQ PRN (05:16)
[2017-03-27 07:34] VITALS: BP 126/62
[2017-03-27] MEDS: LEVETIRACETAM SOL (5 ML) 100 MG/ML UDC GT SCH ×2 (08:04→20:46)
[2017-03-27] MEDS: FERROUS SULFATE - FOR SA ONLY 330 MG/7.5 ML UDC GT SCH ×3 (08:04→17:31)
[2017-03-27] MEDS: GLYCOPYRROLATE 1 MG TABLET GT SCH ×2 (08:04→17:31)
[2017-03-27] MEDS: DOCUSATE SODIUM LIQ 100 MG/10 ML UDC GT SCH ×2 (08:04→17:31)
[2017-03-27] MEDS: Z GUARD REMEDY 4 OZ OINT TP SCH ×2 (08:05→20:47)
[2017-03-27] MEDS: ASCORBIC ACID 500 MG TABLET GT SCH ×2 (08:05→17:31)
[2017-03-27] MEDS: HYDROGEN PEROXIDE 480 ML BOTTLE TP SCH ×2 (08:05→20:47)
[2017-03-27] MEDS: HEPARIN SODIUM, PORCINE 5000 UNITS/1 ML VIAL SQ SCH ×2 (08:05→20:47)
[2017-03-27] MEDS: BACLOFEN (10 MG) 10 MG TABLET GT SCH ×3 (08:05→17:31)
[2017-03-27] MEDS: POTASSIUM CHLORIDE 20 MEQ POWDER PACKET GT SCH (08:05)
[2017-03-27] MEDS: GLYTROL 1,000 ML BAG GT PRN (16:00)
[2017-03-27 19:22] VITALS: BP 103/62
[2017-03-27] MEDS: MULTIVIT, IRON, MIN NO. 8, FA 1 TAB GT SCH (20:46)
[2017-03-27] MEDS: INSULIN DETEMIR 100 UNIT/ML CARTRIDGE SQ SCH (21:15)
[2017-03-28] MEDS: ALBUTEROL FS 2.5 MG/3 ML VIAL.NEB NEB SCH ×4 (01:55→18:59)
[2017-03-28] MEDS: IPRATROPIUM NEB FS 0.5 MG/2.5 ML AMPUL.NEB NEB SCH ×4 (01:55→18:59)
[2017-03-28] MEDS: INSULIN LISPRO/ASPART 100 UNIT/ML CARTRIDGE SQ PRN ×2 (05:05→18:07)
[2017-03-28] MEDS: PANTOPRAZOLE 40 MG/PACK PACK GT SCH (05:05)
[2017-03-28] MEDS: POLYVINYL ALCOHOL 15 ML BOTTLE EACHEYE SCH ×5 (05:05→23:30)
[2017-03-28] MEDS: BLOOD SUGAR DIAGNOSTIC 1 EACH STRIP IN SCH ×2 (05:05→18:06)
[2017-03-28] MEDS: BISACODYL SUPP (10 MG) 10 MG/SUPP.RECT SUPP.RECT RC PRN (06:24)
[2017-03-28 08:12] VITALS: BP 115/73
[2017-03-28] MEDS: LEVETIRACETAM SOL (5 ML) 100 MG/ML UDC GT SCH ×2 (08:22→21:51)
[2017-03-28] MEDS: BACLOFEN (10 MG) 10 MG TABLET GT SCH ×3 (08:23→17:23)
[2017-03-28] MEDS: FERROUS SULFATE - FOR SA ONLY 330 MG/7.5 ML UDC GT SCH ×3 (08:23→17:23)
[2017-03-28] MEDS: GLYCOPYRROLATE 1 MG TABLET GT SCH ×2 (08:23→17:23)
[2017-03-28] MEDS: POTASSIUM CHLORIDE 20 MEQ POWDER PACKET GT SCH (08:23)
[2017-03-28] MEDS: HYDROGEN PEROXIDE 480 ML BOTTLE TP SCH ×2 (08:25→21:28)
[2017-03-28] MEDS: ASCORBIC ACID 500 MG TABLET GT SCH ×2 (08:25→17:23)
[2017-03-28] MEDS: Z GUARD REMEDY 4 OZ OINT TP SCH ×2 (08:25→21:28)
[2017-03-28] MEDS: DOCUSATE SODIUM LIQ 100 MG/10 ML UDC GT SCH ×2 (08:25→17:23)
[2017-03-28] MEDS: HEPARIN SODIUM, PORCINE 5000 UNITS/1 ML VIAL SQ SCH ×2 (08:27→21:54)
[2017-03-28] MEDS: GLYTROL 1,000 ML BAG GT PRN (15:11)
[2017-03-28 19:55] VITALS: BP 120/50
[2017-03-28] MEDS: MULTIVIT, IRON, MIN NO. 8, FA 1 TAB GT SCH (21:28)
[2017-03-28] MEDS: INSULIN DETEMIR 100 UNIT/ML CARTRIDGE SQ SCH (21:55)
[2017-03-29] MEDS: IPRATROPIUM NEB FS 0.5 MG/2.5 ML AMPUL.NEB NEB SCH ×4 (00:41→19:32)
[2017-03-29] MEDS: ALBUTEROL FS 2.5 MG/3 ML VIAL.NEB NEB SCH ×4 (00:41→19:32)
[2017-03-29] MEDS: BLOOD SUGAR DIAGNOSTIC 1 EACH STRIP IN SCH ×2 (05:40→18:14)
[2017-03-29] MEDS: POLYVINYL ALCOHOL 15 ML BOTTLE EACHEYE SCH ×4 (05:40→22:15)
[2017-03-29] MEDS: PANTOPRAZOLE 40 MG/PACK PACK GT SCH (05:40)
--- NOTE | 2017-03-29 07:29 | NUR ---
RT PT RECEIVED TRACHED ON THE VENT WITH NOTED SETTINGS. PT IS AWAKE BUT DOES NOT FOLLOW COMMANDS. VENT ALARMS ARE SET AND AUDIBLE WITH BVM BY BEDSIDE. GRAVITY PROSPECTING SUPERVISOR CUFF PRESSURE NOTED. VENT IS PLUGGED INTO RED OUTLET. NO RESPIRATORY DISTRESS NOTED AT THIS TIME, WILL CONTINUE TO MONITOR. Addendum: 03/29/17 at 1831 by SAE ERNST RT Amended: Links added.
[2017-03-29] MEDS: GLYTROL 1,000 ML BAG GT PRN (07:48)
[2017-03-29 07:55] VITALS: BP 102/73
[2017-03-29] MEDS: FERROUS SULFATE - FOR SA ONLY 330 MG/7.5 ML UDC GT SCH ×3 (08:14→17:15)
[2017-03-29] MEDS: BACLOFEN (10 MG) 10 MG TABLET GT SCH ×3 (08:14→17:15)
[2017-03-29] MEDS: POTASSIUM CHLORIDE 20 MEQ POWDER PACKET GT SCH (08:14)
[2017-03-29] MEDS: ASCORBIC ACID 500 MG TABLET GT SCH ×2 (08:14→17:15)
[2017-03-29] MEDS: LEVETIRACETAM SOL (5 ML) 100 MG/ML UDC GT SCH ×2 (08:14→22:07)
[2017-03-29] MEDS: GLYCOPYRROLATE 1 MG TABLET GT SCH ×2 (08:14→17:15)
[2017-03-29] MEDS: DOCUSATE SODIUM LIQ 100 MG/10 ML UDC GT SCH ×2 (08:14→17:15)
[2017-03-29] MEDS: HEPARIN SODIUM, PORCINE 5000 UNITS/1 ML VIAL SQ SCH ×2 (08:15→21:00)
[2017-03-29] MEDS: HYDROGEN PEROXIDE 480 ML BOTTLE TP SCH ×2 (08:15→21:00)
[2017-03-29] MEDS: Z GUARD REMEDY 4 OZ OINT TP SCH ×2 (08:15→21:00)
[2017-03-29] MEDS: INSULIN LISPRO/ASPART 100 UNIT/ML CARTRIDGE SQ PRN (18:15)
[2017-03-29 20:06] VITALS: BP 122/65
[2017-03-29] MEDS: MULTIVIT, IRON, MIN NO. 8, FA 1 TAB GT SCH (21:00)
[2017-03-29] MEDS: INSULIN DETEMIR 100 UNIT/ML CARTRIDGE SQ SCH (22:10)
[2017-03-30] MEDS: ALBUTEROL FS 2.5 MG/3 ML VIAL.NEB NEB SCH ×4 (02:08→19:08)
[2017-03-30] MEDS: IPRATROPIUM NEB FS 0.5 MG/2.5 ML AMPUL.NEB NEB SCH ×4 (02:08→19:07)
[2017-03-30] MEDS: POLYVINYL ALCOHOL 15 ML BOTTLE EACHEYE SCH ×3 (06:05→17:23)
[2017-03-30] MEDS: PANTOPRAZOLE 40 MG/PACK PACK GT SCH (06:05)
[2017-03-30] MEDS: BLOOD SUGAR DIAGNOSTIC 1 EACH STRIP IN SCH ×2 (06:05→17:23)
--- NOTE | 2017-03-30 06:10 | NUR ---
blood sugar 112.
[2017-03-30] MEDS: GLYTROL 1,000 ML BAG GT PRN ×2 (06:58→22:15)
[2017-03-30 08:02] VITALS: BP 77/56
[2017-03-30] MEDS: HYDROGEN PEROXIDE 480 ML BOTTLE TP SCH ×2 (09:00→20:54)
[2017-03-30] MEDS: Z GUARD REMEDY 4 OZ OINT TP SCH ×2 (09:00→20:54)
[2017-03-30] MEDS: DOCUSATE SODIUM LIQ 100 MG/10 ML UDC GT SCH ×2 (09:52→17:23)
[2017-03-30] MEDS: FERROUS SULFATE - FOR SA ONLY 330 MG/7.5 ML UDC GT SCH ×3 (09:52→17:23)
[2017-03-30] MEDS: GLYCOPYRROLATE 1 MG TABLET GT SCH ×2 (09:52→17:23)
[2017-03-30] MEDS: ASCORBIC ACID 500 MG TABLET GT SCH ×2 (09:54→17:23)
[2017-03-30] MEDS: POTASSIUM CHLORIDE 20 MEQ POWDER PACKET GT SCH (09:54)
[2017-03-30] MEDS: BACLOFEN (10 MG) 10 MG TABLET GT SCH ×3 (09:54→17:23)
[2017-03-30] MEDS: LEVETIRACETAM SOL (5 ML) 100 MG/ML UDC GT SCH ×2 (09:54→20:54)
[2017-03-30] MEDS: HEPARIN SODIUM, PORCINE 5000 UNITS/1 ML VIAL SQ SCH ×2 (09:56→20:54)
[2017-03-30] MEDS: INSULIN LISPRO/ASPART 100 UNIT/ML CARTRIDGE SQ PRN (17:24)
[2017-03-30 20:07] VITALS: BP 107/69
[2017-03-30] MEDS: MULTIVIT, IRON, MIN NO. 8, FA 1 TAB GT SCH (20:54)
[2017-03-30] MEDS: INSULIN DETEMIR 100 UNIT/ML CARTRIDGE SQ SCH (22:11)
[2017-03-31] MEDS: POLYVINYL ALCOHOL 15 ML BOTTLE EACHEYE SCH ×5 (00:15→23:19)
[2017-03-31] MEDS: ALBUTEROL FS 2.5 MG/3 ML VIAL.NEB NEB SCH ×4 (01:27→20:05)
[2017-03-31] MEDS: IPRATROPIUM NEB FS 0.5 MG/2.5 ML AMPUL.NEB NEB SCH ×4 (01:27→20:05)
[2017-03-31] MEDS: INSULIN LISPRO/ASPART 100 UNIT/ML CARTRIDGE SQ PRN (05:28)
[2017-03-31] MEDS: PANTOPRAZOLE 40 MG/PACK PACK GT SCH (05:28)
[2017-03-31] MEDS: BLOOD SUGAR DIAGNOSTIC 1 EACH STRIP IN SCH ×2 (05:28→17:25)
[2017-03-31 07:28] VITALS: BP 100/65
[2017-03-31] MEDS: POTASSIUM CHLORIDE 20 MEQ POWDER PACKET GT SCH (09:56)
[2017-03-31] MEDS: DOCUSATE SODIUM LIQ 100 MG/10 ML UDC GT SCH ×2 (09:56→17:25)
[2017-03-31] MEDS: HYDROGEN PEROXIDE 480 ML BOTTLE TP SCH ×2 (09:56→21:16)
[2017-03-31] MEDS: LEVETIRACETAM SOL (5 ML) 100 MG/ML UDC GT SCH ×2 (09:56→21:16)
[2017-03-31] MEDS: HEPARIN SODIUM, PORCINE 5000 UNITS/1 ML VIAL SQ SCH ×2 (09:56→21:16)
[2017-03-31] MEDS: BACLOFEN (10 MG) 10 MG TABLET GT SCH ×3 (09:56→17:25)
[2017-03-31] MEDS: GLYCOPYRROLATE 1 MG TABLET GT SCH ×2 (09:56→17:25)
[2017-03-31] MEDS: ASCORBIC ACID 500 MG TABLET GT SCH ×2 (09:56→17:25)
[2017-03-31] MEDS: Z GUARD REMEDY 4 OZ OINT TP SCH ×2 (09:56→21:16)
[2017-03-31] MEDS: FERROUS SULFATE - FOR SA ONLY 330 MG/7.5 ML UDC GT SCH ×3 (09:56→17:25)
[2017-03-31 19:49] VITALS: BP 114/74
[2017-03-31] MEDS: MULTIVIT, IRON, MIN NO. 8, FA 1 TAB GT SCH (21:16)
[2017-03-31] MEDS: INSULIN DETEMIR 100 UNIT/ML CARTRIDGE SQ SCH (21:16)
[2017-03-31] MEDS: POLYETHYLENE GLYCOL 3350 17 GM POWD.PACK GT PRN (21:17)
[2017-03-31] MEDS: BISACODYL SUPP (10 MG) 10 MG/SUPP.RECT SUPP.RECT RC PRN (21:17)
[2017-04-01] MEDS: GLYTROL 1,000 ML BAG GT PRN ×2 (00:17→21:07)
[2017-04-01] MEDS: IPRATROPIUM NEB FS 0.5 MG/2.5 ML AMPUL.NEB NEB SCH ×4 (01:00→20:17)
[2017-04-01] MEDS: ALBUTEROL FS 2.5 MG/3 ML VIAL.NEB NEB SCH ×4 (01:00→20:17)
[2017-04-01] MEDS: BLOOD SUGAR DIAGNOSTIC 1 EACH STRIP IN SCH ×2 (05:47→18:45)
[2017-04-01] MEDS: PANTOPRAZOLE 40 MG/PACK PACK GT SCH (05:47)
[2017-04-01] MEDS: POLYVINYL ALCOHOL 15 ML BOTTLE EACHEYE SCH ×4 (05:47→23:31)
[2017-04-01] MEDS: INSULIN LISPRO/ASPART 100 UNIT/ML CARTRIDGE SQ PRN (05:47)
[2017-04-01 08:31] VITALS: BP 98/52
[2017-04-01] MEDS: LEVETIRACETAM SOL (5 ML) 100 MG/ML UDC GT SCH ×2 (09:41→20:25)
[2017-04-01] MEDS: FERROUS SULFATE - FOR SA ONLY 330 MG/7.5 ML UDC GT SCH ×3 (09:41→17:00)
[2017-04-01] MEDS: POTASSIUM CHLORIDE 20 MEQ POWDER PACKET GT SCH (09:41)
[2017-04-01] MEDS: BACLOFEN (10 MG) 10 MG TABLET GT SCH ×3 (09:41→17:00)
[2017-04-01] MEDS: ASCORBIC ACID 500 MG TABLET GT SCH ×2 (09:41→17:00)
[2017-04-01] MEDS: GLYCOPYRROLATE 1 MG TABLET GT SCH ×2 (09:41→17:00)
[2017-04-01] MEDS: DOCUSATE SODIUM LIQ 100 MG/10 ML UDC GT SCH ×2 (09:41→17:00)
[2017-04-01] MEDS: HYDROGEN PEROXIDE 480 ML BOTTLE TP SCH ×2 (09:42→20:25)
[2017-04-01] MEDS: HEPARIN SODIUM, PORCINE 5000 UNITS/1 ML VIAL SQ SCH ×2 (09:42→20:25)
[2017-04-01] MEDS: Z GUARD REMEDY 4 OZ OINT TP SCH ×2 (09:42→20:25)
--- NOTE | 2017-04-01 18:45 | NUR ---
Seen and examined by Mya Rodgers, LORENZO, NNO given. Also obtain new order from Dr. Alvarez for routine Senna due to periods of constipation. Resident's sister Tosin made aware of the new order. Appreciated the care provided with the patient.
[2017-04-01 20:00] VITALS: BP 108/74
[2017-04-01] MEDS: MULTIVIT, IRON, MIN NO. 8, FA 1 TAB GT SCH (20:25)
[2017-04-01] MEDS: SENNOSIDES 8.6 MG TABLET GT SCH (21:06)
[2017-04-01] MEDS: POLYETHYLENE GLYCOL 3350 17 GM POWD.PACK GT PRN (21:07)
[2017-04-01] MEDS: INSULIN DETEMIR 100 UNIT/ML CARTRIDGE SQ SCH (21:07)
[2017-04-02] MEDS: ALBUTEROL FS 2.5 MG/3 ML VIAL.NEB NEB SCH ×4 (00:45→19:22)
[2017-04-02] MEDS: IPRATROPIUM NEB FS 0.5 MG/2.5 ML AMPUL.NEB NEB SCH ×4 (00:45→19:22)
[2017-04-02] MEDS: PANTOPRAZOLE 40 MG/PACK PACK GT SCH (05:20)
[2017-04-02] MEDS: POLYVINYL ALCOHOL 15 ML BOTTLE EACHEYE SCH ×4 (05:20→23:46)
[2017-04-02] MEDS: BLOOD SUGAR DIAGNOSTIC 1 EACH STRIP IN SCH ×2 (05:21→17:53)
[2017-04-02] MEDS: INSULIN LISPRO/ASPART 100 UNIT/ML CARTRIDGE SQ PRN ×2 (05:22→17:54)
[2017-04-02 07:33] VITALS: BP 114/69
[2017-04-02] MEDS: ASCORBIC ACID 500 MG TABLET GT SCH ×2 (09:55→17:53)
[2017-04-02] MEDS: HEPARIN SODIUM, PORCINE 5000 UNITS/1 ML VIAL SQ SCH ×2 (09:55→21:03)
[2017-04-02] MEDS: FERROUS SULFATE - FOR SA ONLY 330 MG/7.5 ML UDC GT SCH ×3 (09:55→17:53)
[2017-04-02] MEDS: LEVETIRACETAM SOL (5 ML) 100 MG/ML UDC GT SCH ×2 (09:55→21:03)
[2017-04-02] MEDS: DOCUSATE SODIUM LIQ 100 MG/10 ML UDC GT SCH ×2 (09:55→17:53)
[2017-04-02] MEDS: POTASSIUM CHLORIDE 20 MEQ POWDER PACKET GT SCH (09:55)
[2017-04-02] MEDS: GLYCOPYRROLATE 1 MG TABLET GT SCH ×2 (09:55→17:53)
[2017-04-02] MEDS: BACLOFEN (10 MG) 10 MG TABLET GT SCH ×3 (09:55→17:53)
[2017-04-02] MEDS: Z GUARD REMEDY 4 OZ OINT TP SCH ×2 (09:56→21:03)
[2017-04-02] MEDS: HYDROGEN PEROXIDE 480 ML BOTTLE TP SCH ×2 (09:56→21:03)
[2017-04-02] MEDS: GLYTROL 1,000 ML BAG GT PRN (19:07)
[2017-04-02 19:43] VITALS: BP 111/72
[2017-04-02] MEDS: SENNOSIDES 8.6 MG TABLET GT SCH (21:03)
[2017-04-02] MEDS: MULTIVIT, IRON, MIN NO. 8, FA 1 TAB GT SCH (21:03)
[2017-04-02] MEDS: INSULIN DETEMIR 100 UNIT/ML CARTRIDGE SQ SCH (21:04)
[2017-04-02] MEDS: POLYETHYLENE GLYCOL 3350 17 GM POWD.PACK GT PRN (21:04)
[2017-04-03] MEDS: ALBUTEROL FS 2.5 MG/3 ML VIAL.NEB NEB SCH ×4 (01:08→19:09)
[2017-04-03] MEDS: IPRATROPIUM NEB FS 0.5 MG/2.5 ML AMPUL.NEB NEB SCH ×4 (01:08→19:09)
[2017-04-03] MEDS: POLYVINYL ALCOHOL 15 ML BOTTLE EACHEYE SCH ×4 (05:14→23:33)
[2017-04-03] MEDS: PANTOPRAZOLE 40 MG/PACK PACK GT SCH (05:14)
[2017-04-03] MEDS: BLOOD SUGAR DIAGNOSTIC 1 EACH STRIP IN SCH ×2 (05:14→17:33)
[2017-04-03] MEDS: INSULIN LISPRO/ASPART 100 UNIT/ML CARTRIDGE SQ PRN ×2 (05:15→17:40)
[2017-04-03] MEDS: BISACODYL SUPP (10 MG) 10 MG/SUPP.RECT SUPP.RECT RC PRN (05:15)
[2017-04-03 07:45] VITALS: BP 104/70
[2017-04-03] MEDS: DOCUSATE SODIUM LIQ 100 MG/10 ML UDC GT SCH ×2 (08:17→17:33)
[2017-04-03] MEDS: FERROUS SULFATE - FOR SA ONLY 330 MG/7.5 ML UDC GT SCH ×3 (08:17→17:33)
[2017-04-03] MEDS: GLYCOPYRROLATE 1 MG TABLET GT SCH ×2 (08:18→17:33)
[2017-04-03] MEDS: LEVETIRACETAM SOL (5 ML) 100 MG/ML UDC GT SCH ×2 (08:18→20:18)
[2017-04-03] MEDS: POTASSIUM CHLORIDE 20 MEQ POWDER PACKET GT SCH (08:18)
[2017-04-03] MEDS: ASCORBIC ACID 500 MG TABLET GT SCH ×2 (08:18→17:33)
[2017-04-03] MEDS: BACLOFEN (10 MG) 10 MG TABLET GT SCH ×3 (08:18→17:33)
[2017-04-03] MEDS: HEPARIN SODIUM, PORCINE 5000 UNITS/1 ML VIAL SQ SCH ×2 (08:19→20:19)
[2017-04-03] MEDS: Z GUARD REMEDY 4 OZ OINT TP SCH ×2 (08:20→20:19)
[2017-04-03] MEDS: HYDROGEN PEROXIDE 480 ML BOTTLE TP SCH ×2 (08:20→20:19)
[2017-04-03 19:43] VITALS: BP 105/75
[2017-04-03] MEDS: MULTIVIT, IRON, MIN NO. 8, FA 1 TAB GT SCH (20:18)
[2017-04-03] MEDS: INSULIN DETEMIR 100 UNIT/ML CARTRIDGE SQ SCH (21:37)
[2017-04-03] MEDS: SENNOSIDES 8.6 MG TABLET GT SCH (21:37)
[2017-04-04] MEDS: ALBUTEROL FS 2.5 MG/3 ML VIAL.NEB NEB SCH ×4 (00:36→19:32)
[2017-04-04] MEDS: IPRATROPIUM NEB FS 0.5 MG/2.5 ML AMPUL.NEB NEB SCH ×4 (00:36→19:32)
[2017-04-04] MEDS: PANTOPRAZOLE 40 MG/PACK PACK GT SCH (05:08)
[2017-04-04] MEDS: POLYVINYL ALCOHOL 15 ML BOTTLE EACHEYE SCH ×4 (05:08→23:48)
[2017-04-04] MEDS: BLOOD SUGAR DIAGNOSTIC 1 EACH STRIP IN SCH ×2 (05:52→18:18)
[2017-04-04 08:00] VITALS: BP 115/56
[2017-04-04] MEDS: LEVETIRACETAM SOL (5 ML) 100 MG/ML UDC GT SCH ×2 (08:20→20:15)
[2017-04-04] MEDS: DOCUSATE SODIUM LIQ 100 MG/10 ML UDC GT SCH ×2 (08:20→17:00)
[2017-04-04] MEDS: POTASSIUM CHLORIDE 20 MEQ POWDER PACKET GT SCH (08:20)
[2017-04-04] MEDS: GLYCOPYRROLATE 1 MG TABLET GT SCH ×2 (08:20→17:00)
[2017-04-04] MEDS: FERROUS SULFATE - FOR SA ONLY 330 MG/7.5 ML UDC GT SCH ×3 (08:20→17:00)
[2017-04-04] MEDS: BACLOFEN (10 MG) 10 MG TABLET GT SCH ×3 (08:20→17:00)
[2017-04-04] MEDS: ASCORBIC ACID 500 MG TABLET GT SCH ×2 (08:20→17:00)
[2017-04-04] MEDS: HEPARIN SODIUM, PORCINE 5000 UNITS/1 ML VIAL SQ SCH ×2 (08:21→20:16)
[2017-04-04] MEDS: HYDROGEN PEROXIDE 480 ML BOTTLE TP SCH ×2 (08:21→20:16)
[2017-04-04] MEDS: Z GUARD REMEDY 4 OZ OINT TP SCH ×2 (08:21→20:16)
[2017-04-04] MEDS: INSULIN LISPRO/ASPART 100 UNIT/ML CARTRIDGE SQ PRN (18:19)
[2017-04-04 20:09] VITALS: BP 108/69
[2017-04-04] MEDS: MULTIVIT, IRON, MIN NO. 8, FA 1 TAB GT SCH (20:15)
[2017-04-04] MEDS: SENNOSIDES 8.6 MG TABLET GT SCH (21:43)
[2017-04-04] MEDS: INSULIN DETEMIR 100 UNIT/ML CARTRIDGE SQ SCH (21:43)
[2017-04-04] MEDS: GLYTROL 1,000 ML BAG GT PRN (22:12)
[2017-04-05] MEDS: IPRATROPIUM NEB FS 0.5 MG/2.5 ML AMPUL.NEB NEB SCH ×4 (01:33→19:03)
[2017-04-05] MEDS: ALBUTEROL FS 2.5 MG/3 ML VIAL.NEB NEB SCH ×4 (01:33→19:03)
[2017-04-05] MEDS: POLYVINYL ALCOHOL 15 ML BOTTLE EACHEYE SCH ×4 (05:07→23:56)
[2017-04-05] MEDS: PANTOPRAZOLE 40 MG/PACK PACK GT SCH (05:07)
[2017-04-05] MEDS: BLOOD SUGAR DIAGNOSTIC 1 EACH STRIP IN SCH ×2 (05:47→18:15)
[2017-04-05 07:38] VITALS: BP 104/71
[2017-04-05] MEDS: ASCORBIC ACID 500 MG TABLET GT SCH ×2 (08:18→17:03)
[2017-04-05] MEDS: POTASSIUM CHLORIDE 20 MEQ POWDER PACKET GT SCH (08:18)
[2017-04-05] MEDS: DOCUSATE SODIUM LIQ 100 MG/10 ML UDC GT SCH ×2 (08:18→17:03)
[2017-04-05] MEDS: BACLOFEN (10 MG) 10 MG TABLET GT SCH ×3 (08:18→17:03)
[2017-04-05] MEDS: GLYCOPYRROLATE 1 MG TABLET GT SCH ×2 (08:18→17:03)
[2017-04-05] MEDS: FERROUS SULFATE - FOR SA ONLY 330 MG/7.5 ML UDC GT SCH ×3 (08:18→17:03)
[2017-04-05] MEDS: LEVETIRACETAM SOL (5 ML) 100 MG/ML UDC GT SCH ×2 (08:18→20:29)
[2017-04-05] MEDS: Z GUARD REMEDY 4 OZ OINT TP SCH ×2 (08:19→20:29)
[2017-04-05] MEDS: HEPARIN SODIUM, PORCINE 5000 UNITS/1 ML VIAL SQ SCH ×2 (08:19→20:32)
[2017-04-05] MEDS: HYDROGEN PEROXIDE 480 ML BOTTLE TP SCH ×2 (08:19→20:30)
[2017-04-05] MEDS: INSULIN LISPRO/ASPART 100 UNIT/ML CARTRIDGE SQ PRN (18:15)
[2017-04-05 19:30] VITALS: BP 104/63
[2017-04-05] MEDS: MULTIVIT, IRON, MIN NO. 8, FA 1 TAB GT SCH (20:29)
[2017-04-05] MEDS: SENNOSIDES 8.6 MG TABLET GT SCH (22:11)
[2017-04-05] MEDS: INSULIN DETEMIR 100 UNIT/ML CARTRIDGE SQ SCH (22:15)
[2017-04-06] MEDS: ALBUTEROL FS 2.5 MG/3 ML VIAL.NEB NEB SCH ×4 (01:47→19:32)
[2017-04-06] MEDS: IPRATROPIUM NEB FS 0.5 MG/2.5 ML AMPUL.NEB NEB SCH ×4 (01:47→19:32)
[2017-04-06] MEDS: PANTOPRAZOLE 40 MG/PACK PACK GT SCH (05:00)
[2017-04-06] MEDS: BLOOD SUGAR DIAGNOSTIC 1 EACH STRIP IN SCH ×2 (05:00→17:03)
[2017-04-06] MEDS: POLYVINYL ALCOHOL 15 ML BOTTLE EACHEYE SCH ×3 (05:00→17:03)
[2017-04-06 07:49] VITALS: BP 109/68
[2017-04-06] MEDS: FERROUS SULFATE - FOR SA ONLY 330 MG/7.5 ML UDC GT SCH ×3 (08:24→17:02)
[2017-04-06] MEDS: DOCUSATE SODIUM LIQ 100 MG/10 ML UDC GT SCH ×2 (08:24→17:02)
[2017-04-06] MEDS: LEVETIRACETAM SOL (5 ML) 100 MG/ML UDC GT SCH ×2 (08:25→20:18)
[2017-04-06] MEDS: GLYCOPYRROLATE 1 MG TABLET GT SCH ×2 (08:25→17:02)
[2017-04-06] MEDS: ASCORBIC ACID 500 MG TABLET GT SCH ×2 (08:26→17:03)
[2017-04-06] MEDS: POTASSIUM CHLORIDE 20 MEQ POWDER PACKET GT SCH (08:26)
[2017-04-06] MEDS: BACLOFEN (10 MG) 10 MG TABLET GT SCH ×3 (08:26→17:02)
[2017-04-06] MEDS: HEPARIN SODIUM, PORCINE 5000 UNITS/1 ML VIAL SQ SCH ×2 (08:27→20:18)
[2017-04-06] MEDS: Z GUARD REMEDY 4 OZ OINT TP SCH ×2 (10:30→20:18)
[2017-04-06] MEDS: HYDROGEN PEROXIDE 480 ML BOTTLE TP SCH ×2 (10:30→20:18)
[2017-04-06] MEDS: GLYTROL 1,000 ML BAG GT PRN (15:20)
[2017-04-06 20:10] VITALS: BP 121/62
[2017-04-06] MEDS: MULTIVIT, IRON, MIN NO. 8, FA 1 TAB GT SCH (20:18)
[2017-04-06] MEDS: SENNOSIDES 8.6 MG TABLET GT SCH (21:34)
[2017-04-06] MEDS: INSULIN DETEMIR 100 UNIT/ML CARTRIDGE SQ SCH (21:35)
[2017-04-07] MEDS: POLYVINYL ALCOHOL 15 ML BOTTLE EACHEYE SCH ×4 (00:07→17:36)
[2017-04-07] MEDS: IPRATROPIUM NEB FS 0.5 MG/2.5 ML AMPUL.NEB NEB SCH ×4 (02:19→20:26)
[2017-04-07] MEDS: ALBUTEROL FS 2.5 MG/3 ML VIAL.NEB NEB SCH ×4 (02:19→20:26)
[2017-04-07] MEDS: PANTOPRAZOLE 40 MG/PACK PACK GT SCH (05:06)
[2017-04-07] MEDS: BLOOD SUGAR DIAGNOSTIC 1 EACH STRIP IN SCH ×2 (05:54→17:36)
[2017-04-07] MEDS: BISACODYL SUPP (10 MG) 10 MG/SUPP.RECT SUPP.RECT RC PRN (06:48)
--- NOTE | 2017-04-07 06:51 | NUR ---
Dulcolax supp. rect. 10 mg given for constipation. Charge nurse RN aware. Will Endorse to next shift to monitor BM output.
[2017-04-07 07:46] VITALS: BP 107/71
[2017-04-07] MEDS: BACLOFEN (10 MG) 10 MG TABLET GT SCH ×3 (08:47→17:36)
[2017-04-07] MEDS: POTASSIUM CHLORIDE 20 MEQ POWDER PACKET GT SCH (08:47)
[2017-04-07] MEDS: GLYCOPYRROLATE 1 MG TABLET GT SCH ×2 (08:47→17:36)
[2017-04-07] MEDS: Z GUARD REMEDY 4 OZ OINT TP SCH ×2 (08:47→21:04)
[2017-04-07] MEDS: DOCUSATE SODIUM LIQ 100 MG/10 ML UDC GT SCH ×2 (08:47→17:36)
[2017-04-07] MEDS: ASCORBIC ACID 500 MG TABLET GT SCH ×2 (08:47→17:36)
[2017-04-07] MEDS: HYDROGEN PEROXIDE 480 ML BOTTLE TP SCH ×2 (08:47→21:04)
[2017-04-07] MEDS: HEPARIN SODIUM, PORCINE 5000 UNITS/1 ML VIAL SQ SCH ×2 (08:47→21:04)
[2017-04-07] MEDS: FERROUS SULFATE - FOR SA ONLY 330 MG/7.5 ML UDC GT SCH ×3 (08:47→17:36)
[2017-04-07] MEDS: LEVETIRACETAM SOL (5 ML) 100 MG/ML UDC GT SCH ×2 (08:47→21:03)
[2017-04-07] MEDS: GLYTROL 1,000 ML BAG GT PRN (12:09)
[2017-04-07 19:53] VITALS: BP 107/73
[2017-04-07] MEDS: MULTIVIT, IRON, MIN NO. 8, FA 1 TAB GT SCH (21:03)
[2017-04-07] MEDS: POLYETHYLENE GLYCOL 3350 17 GM POWD.PACK GT PRN (21:04)
[2017-04-07] MEDS: INSULIN DETEMIR 100 UNIT/ML CARTRIDGE SQ SCH (21:04)
[2017-04-07] MEDS: SENNOSIDES 8.6 MG TABLET GT SCH (21:04)
[2017-04-08] MEDS: POLYVINYL ALCOHOL 15 ML BOTTLE EACHEYE SCH ×4 (00:04→18:00)
[2017-04-08] MEDS: IPRATROPIUM NEB FS 0.5 MG/2.5 ML AMPUL.NEB NEB SCH ×4 (01:17→20:14)
[2017-04-08] MEDS: ALBUTEROL FS 2.5 MG/3 ML VIAL.NEB NEB SCH ×4 (01:17→20:14)
[2017-04-08] MEDS: INSULIN LISPRO/ASPART 100 UNIT/ML CARTRIDGE SQ PRN (05:11)
[2017-04-08] MEDS: BLOOD SUGAR DIAGNOSTIC 1 EACH STRIP IN SCH ×2 (05:11→18:00)
[2017-04-08] MEDS: PANTOPRAZOLE 40 MG/PACK PACK GT SCH (05:11)
[2017-04-08 07:42] VITALS: BP 110/67
[2017-04-08] MEDS: BACLOFEN (10 MG) 10 MG TABLET GT SCH ×3 (08:45→16:36)
[2017-04-08] MEDS: FERROUS SULFATE - FOR SA ONLY 330 MG/7.5 ML UDC GT SCH ×3 (08:45→16:36)
[2017-04-08] MEDS: POTASSIUM CHLORIDE 20 MEQ POWDER PACKET GT SCH (08:45)
[2017-04-08] MEDS: LEVETIRACETAM SOL (5 ML) 100 MG/ML UDC GT SCH ×2 (08:45→20:13)
[2017-04-08] MEDS: ASCORBIC ACID 500 MG TABLET GT SCH ×2 (08:45→16:36)
[2017-04-08] MEDS: HEPARIN SODIUM, PORCINE 5000 UNITS/1 ML VIAL SQ SCH ×2 (08:45→20:13)
[2017-04-08] MEDS: DOCUSATE SODIUM LIQ 100 MG/10 ML UDC GT SCH ×2 (08:45→16:36)
[2017-04-08] MEDS: GLYCOPYRROLATE 1 MG TABLET GT SCH ×2 (08:45→16:36)
[2017-04-08] MEDS: Z GUARD REMEDY 4 OZ OINT TP SCH ×2 (08:46→20:13)
[2017-04-08] MEDS: HYDROGEN PEROXIDE 480 ML BOTTLE TP SCH ×2 (08:46→20:13)
[2017-04-08] MEDS: GLYTROL 1,000 ML BAG GT PRN (12:45)
--- NOTE | 2017-04-08 16:00 | NUR ---
INTERDISCIPLINARY PLAN OF CARE CONFERENCE was held today. Resident's sister unable to attend. Dr. Alvarez and the interdisciplinary team reviewed the current plan of care in detail. New orders were reviewed as well at treatment and medications. Resident will continue with heparin per Dr. Alvarez and CBC will be completed on 04/18/2017.
[2017-04-08 19:47] VITALS: BP 108/71
[2017-04-08] MEDS: MULTIVIT, IRON, MIN NO. 8, FA 1 TAB GT SCH (20:13)
[2017-04-08] MEDS: POLYETHYLENE GLYCOL 3350 17 GM POWD.PACK GT PRN (20:13)
[2017-04-08] MEDS: SENNOSIDES 8.6 MG TABLET GT SCH (21:05)
[2017-04-08] MEDS: INSULIN DETEMIR 100 UNIT/ML CARTRIDGE SQ SCH (21:06)
[2017-04-09] MEDS: POLYVINYL ALCOHOL 15 ML BOTTLE EACHEYE SCH ×4 (00:08→17:15)
[2017-04-09] MEDS: IPRATROPIUM NEB FS 0.5 MG/2.5 ML AMPUL.NEB NEB SCH ×4 (01:02→19:10)
[2017-04-09] MEDS: ALBUTEROL FS 2.5 MG/3 ML VIAL.NEB NEB SCH ×4 (01:03→19:10)
[2017-04-09] MEDS: PANTOPRAZOLE 40 MG/PACK PACK GT SCH (05:07)
[2017-04-09] MEDS: INSULIN LISPRO/ASPART 100 UNIT/ML CARTRIDGE SQ PRN (05:07)
[2017-04-09] MEDS: BLOOD SUGAR DIAGNOSTIC 1 EACH STRIP IN SCH ×2 (05:07→17:15)
[2017-04-09 07:31] VITALS: BP 116/74
[2017-04-09] MEDS: DOCUSATE SODIUM LIQ 100 MG/10 ML UDC GT SCH ×2 (09:18→17:15)
[2017-04-09] MEDS: ASCORBIC ACID 500 MG TABLET GT SCH ×2 (09:18→17:15)
[2017-04-09] MEDS: FERROUS SULFATE - FOR SA ONLY 330 MG/7.5 ML UDC GT SCH ×3 (09:18→17:15)
[2017-04-09] MEDS: GLYCOPYRROLATE 1 MG TABLET GT SCH ×2 (09:18→17:15)
[2017-04-09] MEDS: LEVETIRACETAM SOL (5 ML) 100 MG/ML UDC GT SCH ×2 (09:18→21:15)
[2017-04-09] MEDS: HEPARIN SODIUM, PORCINE 5000 UNITS/1 ML VIAL SQ SCH ×2 (09:18→21:15)
[2017-04-09] MEDS: Z GUARD REMEDY 4 OZ OINT TP SCH ×2 (09:18→21:15)
[2017-04-09] MEDS: HYDROGEN PEROXIDE 480 ML BOTTLE TP SCH ×2 (09:18→21:15)
[2017-04-09] MEDS: POTASSIUM CHLORIDE 20 MEQ POWDER PACKET GT SCH (09:18)
[2017-04-09] MEDS: BACLOFEN (10 MG) 10 MG TABLET GT SCH ×3 (09:18→17:15)
[2017-04-09] MEDS: GLYTROL 1,000 ML BAG GT PRN (11:04)
[2017-04-09 19:50] VITALS: BP 103/66
[2017-04-09] MEDS: SENNOSIDES 8.6 MG TABLET GT SCH (21:15)
[2017-04-09] MEDS: MULTIVIT, IRON, MIN NO. 8, FA 1 TAB GT SCH (21:15)
[2017-04-09] MEDS: INSULIN DETEMIR 100 UNIT/ML CARTRIDGE SQ SCH (21:16)
[2017-04-10] MEDS: POLYVINYL ALCOHOL 15 ML BOTTLE EACHEYE SCH ×4 (00:05→17:34)
[2017-04-10] MEDS: ALBUTEROL FS 2.5 MG/3 ML VIAL.NEB NEB SCH ×4 (02:29→19:21)
[2017-04-10] MEDS: IPRATROPIUM NEB FS 0.5 MG/2.5 ML AMPUL.NEB NEB SCH ×4 (02:29→19:21)
[2017-04-10] MEDS: BLOOD SUGAR DIAGNOSTIC 1 EACH STRIP IN SCH ×2 (05:26→17:34)
[2017-04-10] MEDS: PANTOPRAZOLE 40 MG/PACK PACK GT SCH (05:26)
[2017-04-10 07:45] VITALS: BP 130/72
[2017-04-10] MEDS: POTASSIUM CHLORIDE 20 MEQ POWDER PACKET GT SCH (08:27)
[2017-04-10] MEDS: DOCUSATE SODIUM LIQ 100 MG/10 ML UDC GT SCH ×2 (08:27→17:34)
[2017-04-10] MEDS: LEVETIRACETAM SOL (5 ML) 100 MG/ML UDC GT SCH ×2 (08:27→21:34)
[2017-04-10] MEDS: GLYCOPYRROLATE 1 MG TABLET GT SCH ×2 (08:27→17:34)
[2017-04-10] MEDS: BACLOFEN (10 MG) 10 MG TABLET GT SCH ×3 (08:27→17:34)
[2017-04-10] MEDS: ASCORBIC ACID 500 MG TABLET GT SCH ×2 (08:27→17:34)
[2017-04-10] MEDS: FERROUS SULFATE - FOR SA ONLY 330 MG/7.5 ML UDC GT SCH ×3 (08:27→17:34)
[2017-04-10] MEDS: Z GUARD REMEDY 4 OZ OINT TP SCH ×2 (08:28→21:34)
[2017-04-10] MEDS: HEPARIN SODIUM, PORCINE 5000 UNITS/1 ML VIAL SQ SCH ×2 (08:28→21:34)
[2017-04-10] MEDS: HYDROGEN PEROXIDE 480 ML BOTTLE TP SCH ×2 (08:28→21:34)
[2017-04-10] MEDS: GLYTROL 1,000 ML BAG GT PRN ×2 (17:34→23:01)
[2017-04-10 19:56] VITALS: BP 101/60
[2017-04-10] MEDS: SENNOSIDES 8.6 MG TABLET GT SCH (21:34)
[2017-04-10] MEDS: MULTIVIT, IRON, MIN NO. 8, FA 1 TAB GT SCH (21:34)
[2017-04-10] MEDS: INSULIN DETEMIR 100 UNIT/ML CARTRIDGE SQ SCH (21:35)
[2017-04-11] MEDS: IPRATROPIUM NEB FS 0.5 MG/2.5 ML AMPUL.NEB NEB SCH ×4 (01:22→19:34)
[2017-04-11] MEDS: ALBUTEROL FS 2.5 MG/3 ML VIAL.NEB NEB SCH ×4 (01:22→19:34)
[2017-04-11] MEDS: INSULIN LISPRO/ASPART 100 UNIT/ML CARTRIDGE SQ PRN ×2 (05:17→18:15)
[2017-04-11] MEDS: BLOOD SUGAR DIAGNOSTIC 1 EACH STRIP IN SCH ×2 (05:17→18:15)
[2017-04-11] MEDS: POLYVINYL ALCOHOL 15 ML BOTTLE EACHEYE SCH ×5 (05:17→23:21)
[2017-04-11] MEDS: PANTOPRAZOLE 40 MG/PACK PACK GT SCH (05:17)
[2017-04-11 08:00] VITALS: BP 109/70
[2017-04-11] MEDS: GLYCOPYRROLATE 1 MG TABLET GT SCH ×2 (08:27→17:27)
[2017-04-11] MEDS: HEPARIN SODIUM, PORCINE 5000 UNITS/1 ML VIAL SQ SCH ×2 (08:27→20:43)
[2017-04-11] MEDS: POTASSIUM CHLORIDE 20 MEQ POWDER PACKET GT SCH (08:27)
[2017-04-11] MEDS: FERROUS SULFATE - FOR SA ONLY 330 MG/7.5 ML UDC GT SCH ×3 (08:27→17:27)
[2017-04-11] MEDS: HYDROGEN PEROXIDE 480 ML BOTTLE TP SCH ×2 (08:27→20:43)
[2017-04-11] MEDS: LEVETIRACETAM SOL (5 ML) 100 MG/ML UDC GT SCH ×2 (08:27→20:42)
[2017-04-11] MEDS: ASCORBIC ACID 500 MG TABLET GT SCH ×2 (08:27→17:27)
[2017-04-11] MEDS: Z GUARD REMEDY 4 OZ OINT TP SCH ×2 (08:27→20:43)
[2017-04-11] MEDS: DOCUSATE SODIUM LIQ 100 MG/10 ML UDC GT SCH ×2 (08:27→17:27)
[2017-04-11] MEDS: BACLOFEN (10 MG) 10 MG TABLET GT SCH ×3 (08:27→17:27)
[2017-04-11 20:00] VITALS: BP 103/68
[2017-04-11] MEDS: MULTIVIT, IRON, MIN NO. 8, FA 1 TAB GT SCH (20:42)
[2017-04-11] MEDS: SENNOSIDES 8.6 MG TABLET GT SCH (21:40)
[2017-04-11] MEDS: INSULIN DETEMIR 100 UNIT/ML CARTRIDGE SQ SCH (21:40)
[2017-04-12] MEDS: IPRATROPIUM NEB FS 0.5 MG/2.5 ML AMPUL.NEB NEB SCH ×4 (00:46→19:44)
[2017-04-12] MEDS: ALBUTEROL FS 2.5 MG/3 ML VIAL.NEB NEB SCH ×4 (00:46→19:44)
[2017-04-12] MEDS: PANTOPRAZOLE 40 MG/PACK PACK GT SCH (05:30)
[2017-04-12] MEDS: POLYVINYL ALCOHOL 15 ML BOTTLE EACHEYE SCH ×4 (05:30→23:21)
[2017-04-12] MEDS: GLYTROL 1,000 ML BAG GT PRN (05:31)
[2017-04-12] MEDS: BLOOD SUGAR DIAGNOSTIC 1 EACH STRIP IN SCH ×2 (05:55→18:13)
[2017-04-12 07:45] VITALS: BP 99/64
[2017-04-12] MEDS: HEPARIN SODIUM, PORCINE 5000 UNITS/1 ML VIAL SQ SCH ×2 (08:22→20:27)
[2017-04-12] MEDS: POTASSIUM CHLORIDE 20 MEQ POWDER PACKET GT SCH (08:22)
[2017-04-12] MEDS: GLYCOPYRROLATE 1 MG TABLET GT SCH ×2 (08:22→17:08)
[2017-04-12] MEDS: BACLOFEN (10 MG) 10 MG TABLET GT SCH ×3 (08:22→17:08)
[2017-04-12] MEDS: LEVETIRACETAM SOL (5 ML) 100 MG/ML UDC GT SCH ×2 (08:22→20:27)
[2017-04-12] MEDS: DOCUSATE SODIUM LIQ 100 MG/10 ML UDC GT SCH ×2 (08:22→17:08)
[2017-04-12] MEDS: FERROUS SULFATE - FOR SA ONLY 330 MG/7.5 ML UDC GT SCH ×3 (08:22→17:08)
[2017-04-12] MEDS: ASCORBIC ACID 500 MG TABLET GT SCH ×2 (08:22→17:08)
[2017-04-12] MEDS: Z GUARD REMEDY 4 OZ OINT TP SCH ×2 (08:23→20:27)
[2017-04-12] MEDS: HYDROGEN PEROXIDE 480 ML BOTTLE TP SCH ×2 (08:23→20:27)
--- NOTE | 2017-04-12 13:10 | NUR ---
Resident due for special events planner visit. Informed resident's sister that special events planner will be coming to see resident and trim the nails if necessary. Charge nurse informed. Informed Edmond Neal DPM and he stated he will come and see the resident tomorrow.
[2017-04-12] MEDS: INSULIN LISPRO/ASPART 100 UNIT/ML CARTRIDGE SQ PRN (18:13)
[2017-04-12 20:12] VITALS: BP 105/68
[2017-04-12] MEDS: MULTIVIT, IRON, MIN NO. 8, FA 1 TAB GT SCH (20:27)
[2017-04-12] MEDS: INSULIN DETEMIR 100 UNIT/ML CARTRIDGE SQ SCH (21:32)
[2017-04-12] MEDS: SENNOSIDES 8.6 MG TABLET GT SCH (21:32)
[2017-04-13] MEDS: GLYTROL 1,000 ML BAG GT PRN (01:15)
[2017-04-13] MEDS: IPRATROPIUM NEB FS 0.5 MG/2.5 ML AMPUL.NEB NEB SCH ×4 (01:50→19:25)
[2017-04-13] MEDS: ALBUTEROL FS 2.5 MG/3 ML VIAL.NEB NEB SCH ×4 (01:50→19:25)
[2017-04-13] MEDS: POLYVINYL ALCOHOL 15 ML BOTTLE EACHEYE SCH ×4 (05:23→23:57)
[2017-04-13] MEDS: PANTOPRAZOLE 40 MG/PACK PACK GT SCH (05:24)
[2017-04-13] MEDS: BLOOD SUGAR DIAGNOSTIC 1 EACH STRIP IN SCH ×2 (06:03→18:32)
[2017-04-13 07:51] VITALS: BP 98/66
[2017-04-13] MEDS: FERROUS SULFATE - FOR SA ONLY 330 MG/7.5 ML UDC GT SCH ×3 (08:15→16:31)
[2017-04-13] MEDS: POTASSIUM CHLORIDE 20 MEQ POWDER PACKET GT SCH (08:15)
[2017-04-13] MEDS: ASCORBIC ACID 500 MG TABLET GT SCH ×2 (08:15→16:31)
[2017-04-13] MEDS: LEVETIRACETAM SOL (5 ML) 100 MG/ML UDC GT SCH ×2 (08:15→21:11)
[2017-04-13] MEDS: DOCUSATE SODIUM LIQ 100 MG/10 ML UDC GT SCH ×2 (08:15→16:31)
[2017-04-13] MEDS: BACLOFEN (10 MG) 10 MG TABLET GT SCH ×3 (08:15→16:31)
[2017-04-13] MEDS: HEPARIN SODIUM, PORCINE 5000 UNITS/1 ML VIAL SQ SCH ×2 (08:15→21:12)
[2017-04-13] MEDS: Z GUARD REMEDY 4 OZ OINT TP SCH ×2 (08:15→21:12)
[2017-04-13] MEDS: HYDROGEN PEROXIDE 480 ML BOTTLE TP SCH ×2 (08:15→21:12)
[2017-04-13] MEDS: GLYCOPYRROLATE 1 MG TABLET GT SCH ×2 (08:15→16:31)
[2017-04-13] MEDS: POLYETHYLENE GLYCOL 3350 17 GM POWD.PACK GT PRN (16:36)
[2017-04-13] MEDS: INSULIN LISPRO/ASPART 100 UNIT/ML CARTRIDGE SQ PRN (18:34)
[2017-04-13] MEDS: MULTIVIT, IRON, MIN NO. 8, FA 1 TAB GT SCH (21:11)
[2017-04-13] MEDS: SENNOSIDES 8.6 MG TABLET GT SCH (21:12)
[2017-04-13] MEDS: INSULIN DETEMIR 100 UNIT/ML CARTRIDGE SQ SCH (21:12)
[2017-04-13 22:22] VITALS: BP 97/61
[2017-04-14] MEDS: GLYTROL 1,000 ML BAG GT PRN ×2 (00:56→21:12)
[2017-04-14] MEDS: ALBUTEROL FS 2.5 MG/3 ML VIAL.NEB NEB SCH ×4 (01:25→20:11)
[2017-04-14] MEDS: IPRATROPIUM NEB FS 0.5 MG/2.5 ML AMPUL.NEB NEB SCH ×4 (01:25→20:11)
[2017-04-14] MEDS: PANTOPRAZOLE 40 MG/PACK PACK GT SCH (06:03)
[2017-04-14] MEDS: POLYVINYL ALCOHOL 15 ML BOTTLE EACHEYE SCH ×4 (06:03→23:39)
[2017-04-14] MEDS: BLOOD SUGAR DIAGNOSTIC 1 EACH STRIP IN SCH ×2 (06:03→17:13)
[2017-04-14 07:32] VITALS: BP 111/66
[2017-04-14] MEDS: FERROUS SULFATE - FOR SA ONLY 330 MG/7.5 ML UDC GT SCH ×3 (09:11→17:13)
[2017-04-14] MEDS: GLYCOPYRROLATE 1 MG TABLET GT SCH ×2 (09:11→17:13)
[2017-04-14] MEDS: DOCUSATE SODIUM LIQ 100 MG/10 ML UDC GT SCH ×2 (09:11→17:13)
[2017-04-14] MEDS: ASCORBIC ACID 500 MG TABLET GT SCH ×2 (09:13→17:13)
[2017-04-14] MEDS: POTASSIUM CHLORIDE 20 MEQ POWDER PACKET GT SCH (09:13)
[2017-04-14] MEDS: LEVETIRACETAM SOL (5 ML) 100 MG/ML UDC GT SCH ×2 (09:13→21:10)
[2017-04-14] MEDS: BACLOFEN (10 MG) 10 MG TABLET GT SCH ×3 (09:13→17:13)
[2017-04-14] MEDS: HEPARIN SODIUM, PORCINE 5000 UNITS/1 ML VIAL SQ SCH ×2 (09:16→21:11)
[2017-04-14] MEDS: HYDROGEN PEROXIDE 480 ML BOTTLE TP SCH ×2 (09:20→21:11)
[2017-04-14] MEDS: Z GUARD REMEDY 4 OZ OINT TP SCH ×2 (09:20→21:11)
[2017-04-14] MEDS: INSULIN LISPRO/ASPART 100 UNIT/ML CARTRIDGE SQ PRN (17:16)
[2017-04-14 19:52] VITALS: BP 99/61
[2017-04-14] MEDS: MULTIVIT, IRON, MIN NO. 8, FA 1 TAB GT SCH (21:10)
[2017-04-14] MEDS: SENNOSIDES 8.6 MG TABLET GT SCH (21:11)
[2017-04-14] MEDS: INSULIN DETEMIR 100 UNIT/ML CARTRIDGE SQ SCH (21:23)
[2017-04-15] MEDS: ALBUTEROL FS 2.5 MG/3 ML VIAL.NEB NEB SCH ×4 (01:55→20:09)
[2017-04-15] MEDS: IPRATROPIUM NEB FS 0.5 MG/2.5 ML AMPUL.NEB NEB SCH ×4 (01:55→20:09)
[2017-04-15] MEDS: INSULIN LISPRO/ASPART 100 UNIT/ML CARTRIDGE SQ PRN (05:30)
[2017-04-15] MEDS: POLYVINYL ALCOHOL 15 ML BOTTLE EACHEYE SCH ×4 (05:30→23:32)
[2017-04-15] MEDS: PANTOPRAZOLE 40 MG/PACK PACK GT SCH (05:30)
[2017-04-15] MEDS: BLOOD SUGAR DIAGNOSTIC 1 EACH STRIP IN SCH ×2 (05:30→18:32)
[2017-04-15 07:27] VITALS: BP 107/54
[2017-04-15] MEDS: BACLOFEN (10 MG) 10 MG TABLET GT SCH ×3 (08:18→17:00)
[2017-04-15] MEDS: POTASSIUM CHLORIDE 20 MEQ POWDER PACKET GT SCH (08:18)
[2017-04-15] MEDS: ASCORBIC ACID 500 MG TABLET GT SCH ×2 (08:18→17:00)
[2017-04-15] MEDS: Z GUARD REMEDY 4 OZ OINT TP SCH ×2 (08:18→20:30)
[2017-04-15] MEDS: LEVETIRACETAM SOL (5 ML) 100 MG/ML UDC GT SCH ×2 (08:18→20:29)
[2017-04-15] MEDS: HYDROGEN PEROXIDE 480 ML BOTTLE TP SCH ×2 (08:18→20:30)
[2017-04-15] MEDS: DOCUSATE SODIUM LIQ 100 MG/10 ML UDC GT SCH ×2 (08:18→17:00)
[2017-04-15] MEDS: GLYCOPYRROLATE 1 MG TABLET GT SCH ×2 (08:18→17:00)
[2017-04-15] MEDS: HEPARIN SODIUM, PORCINE 5000 UNITS/1 ML VIAL SQ SCH ×2 (08:18→20:30)
[2017-04-15] MEDS: FERROUS SULFATE - FOR SA ONLY 330 MG/7.5 ML UDC GT SCH ×3 (08:18→17:00)
[2017-04-15] MEDS: MULTIVIT, IRON, MIN NO. 8, FA 1 TAB GT SCH (20:29)
[2017-04-15 21:33] VITALS: BP 117/85
[2017-04-15] MEDS: SENNOSIDES 8.6 MG TABLET GT SCH (21:49)
[2017-04-15] MEDS: INSULIN DETEMIR 100 UNIT/ML CARTRIDGE SQ SCH (21:50)
[2017-04-15] MEDS: GLYTROL 1,000 ML BAG GT PRN (22:17)
[2017-04-16] MEDS: ALBUTEROL FS 2.5 MG/3 ML VIAL.NEB NEB SCH ×4 (01:09→20:14)
[2017-04-16] MEDS: IPRATROPIUM NEB FS 0.5 MG/2.5 ML AMPUL.NEB NEB SCH ×4 (01:09→20:14)
[2017-04-16] MEDS: PANTOPRAZOLE 40 MG/PACK PACK GT SCH (05:14)
[2017-04-16] MEDS: BLOOD SUGAR DIAGNOSTIC 1 EACH STRIP IN SCH ×2 (05:14→18:14)
[2017-04-16] MEDS: POLYVINYL ALCOHOL 15 ML BOTTLE EACHEYE SCH ×3 (05:14→17:31)
[2017-04-16] MEDS: INSULIN LISPRO/ASPART 100 UNIT/ML CARTRIDGE SQ PRN ×2 (05:15→18:14)
[2017-04-16 07:20] VITALS: BP 113/63
[2017-04-16] MEDS: POTASSIUM CHLORIDE 20 MEQ POWDER PACKET GT SCH (09:22)
[2017-04-16] MEDS: GLYCOPYRROLATE 1 MG TABLET GT SCH ×2 (09:22→17:31)
[2017-04-16] MEDS: ASCORBIC ACID 500 MG TABLET GT SCH ×2 (09:22→17:31)
[2017-04-16] MEDS: LEVETIRACETAM SOL (5 ML) 100 MG/ML UDC GT SCH ×2 (09:22→21:15)
[2017-04-16] MEDS: Z GUARD REMEDY 4 OZ OINT TP SCH ×2 (09:22→21:16)
[2017-04-16] MEDS: BACLOFEN (10 MG) 10 MG TABLET GT SCH ×3 (09:22→17:31)
[2017-04-16] MEDS: HYDROGEN PEROXIDE 480 ML BOTTLE TP SCH ×2 (09:22→21:16)
[2017-04-16] MEDS: FERROUS SULFATE - FOR SA ONLY 330 MG/7.5 ML UDC GT SCH ×3 (09:22→17:31)
[2017-04-16] MEDS: DOCUSATE SODIUM LIQ 100 MG/10 ML UDC GT SCH ×2 (09:22→17:31)
[2017-04-16] MEDS: HEPARIN SODIUM, PORCINE 5000 UNITS/1 ML VIAL SQ SCH ×2 (09:22→21:16)
[2017-04-16 19:42] VITALS: BP 108/66
[2017-04-16] MEDS: MULTIVIT, IRON, MIN NO. 8, FA 1 TAB GT SCH (21:15)
[2017-04-16] MEDS: SENNOSIDES 8.6 MG TABLET GT SCH (21:16)
[2017-04-16] MEDS: INSULIN DETEMIR 100 UNIT/ML CARTRIDGE SQ SCH (21:16)
[2017-04-16] MEDS: GLYTROL 1,000 ML BAG GT PRN (21:57)
[2017-04-17] MEDS: POLYVINYL ALCOHOL 15 ML BOTTLE EACHEYE SCH ×5 (00:23→23:49)
[2017-04-17] MEDS: IPRATROPIUM NEB FS 0.5 MG/2.5 ML AMPUL.NEB NEB SCH ×4 (02:15→19:56)
[2017-04-17] MEDS: ALBUTEROL FS 2.5 MG/3 ML VIAL.NEB NEB SCH ×4 (02:15→19:56)
[2017-04-17] MEDS: PANTOPRAZOLE 40 MG/PACK PACK GT SCH (05:18)
[2017-04-17] MEDS: BLOOD SUGAR DIAGNOSTIC 1 EACH STRIP IN SCH ×2 (05:18→17:12)
[2017-04-17] MEDS: INSULIN LISPRO/ASPART 100 UNIT/ML CARTRIDGE SQ PRN ×2 (05:18→17:13)
[2017-04-17 07:34] VITALS: BP 90/53
[2017-04-17] MEDS: POTASSIUM CHLORIDE 20 MEQ POWDER PACKET GT SCH (09:19)
[2017-04-17] MEDS: FERROUS SULFATE - FOR SA ONLY 330 MG/7.5 ML UDC GT SCH ×3 (09:19→17:12)
[2017-04-17] MEDS: GLYCOPYRROLATE 1 MG TABLET GT SCH ×2 (09:19→17:12)
[2017-04-17] MEDS: BACLOFEN (10 MG) 10 MG TABLET GT SCH ×3 (09:19→17:12)
[2017-04-17] MEDS: LEVETIRACETAM SOL (5 ML) 100 MG/ML UDC GT SCH ×2 (09:19→21:01)
[2017-04-17] MEDS: ASCORBIC ACID 500 MG TABLET GT SCH ×2 (09:19→17:12)
[2017-04-17] MEDS: HYDROGEN PEROXIDE 480 ML BOTTLE TP SCH ×2 (09:24→21:02)
[2017-04-17] MEDS: Z GUARD REMEDY 4 OZ OINT TP SCH ×2 (09:24→21:02)
[2017-04-17] MEDS: HEPARIN SODIUM, PORCINE 5000 UNITS/1 ML VIAL SQ SCH ×2 (09:24→21:02)
[2017-04-17] MEDS: DOCUSATE SODIUM LIQ 100 MG/10 ML UDC GT SCH ×2 (09:25→17:12)
[2017-04-17] MEDS: GLYTROL 1,000 ML BAG GT PRN (18:56)
[2017-04-17 19:42] VITALS: BP 109/65
[2017-04-17] MEDS: MULTIVIT, IRON, MIN NO. 8, FA 1 TAB GT SCH (21:01)
[2017-04-17] MEDS: INSULIN DETEMIR 100 UNIT/ML CARTRIDGE SQ SCH (21:02)
[2017-04-17] MEDS: SENNOSIDES 8.6 MG TABLET GT SCH (21:02)
[2017-04-18] MEDS: IPRATROPIUM NEB FS 0.5 MG/2.5 ML AMPUL.NEB NEB SCH ×4 (02:11→20:05)
[2017-04-18] MEDS: ALBUTEROL FS 2.5 MG/3 ML VIAL.NEB NEB SCH ×4 (02:11→20:05)
[2017-04-18] MEDS: PANTOPRAZOLE 40 MG/PACK PACK GT SCH (05:13)
[2017-04-18] MEDS: POLYVINYL ALCOHOL 15 ML BOTTLE EACHEYE SCH ×4 (05:13→23:35)
[2017-04-18] MEDS: BLOOD SUGAR DIAGNOSTIC 1 EACH STRIP IN SCH ×2 (05:13→18:08)
[2017-04-18 06:26] LABS: BASOPHILS % (AUTO) 0.3 % (0.0-2.0); EOSINOPHILS # (AUTO) 0.3 /CMM (0.0-0.7); EOSINOPHILS % (AUTO) 3.4 % (0.0-6.0); HEMATOCRIT 39 % (33-45); HEMOGLOBIN 12.9 g/dL (11.5-14.8); LYMPHOCYTES # (AUTO) 2.4 /CMM (0.8-4.8); MEAN CORPUSCULAR HEMOGLOBIN 31 PG (26.0-33.0); MEAN CORPUSCULAR HGB CONC 34 g/dl (31.0-36.0); MEAN CORPUSCULAR VOLUME 92 fL (82-100); MONOCYTES # (AUTO) 0.6 /CMM (0.1-1.30); MONOCYTES % (AUTO) 7.4 % (2.0-12.0); NEUTROPHILS # (AUTO) 4.7 /CMM (1.8-8.9); NEUTROPHILS % (AUTO) 58.9 % (43.0-81.0); PLATELET COUNT (AUTO) 262 /CMM (150-450); RDW COEFFICIENT OF VARIATION 14.9 (11.5-15.0); RED BLOOD CELL COUNT(AUTO) 4.17 MIL/uL (4.0-5.2)
[2017-04-18 08:14] VITALS: BP 98/57
[2017-04-18] MEDS: FERROUS SULFATE - FOR SA ONLY 330 MG/7.5 ML UDC GT SCH ×3 (08:20→17:25)
[2017-04-18] MEDS: POTASSIUM CHLORIDE 20 MEQ POWDER PACKET GT SCH (08:20)
[2017-04-18] MEDS: LEVETIRACETAM SOL (5 ML) 100 MG/ML UDC GT SCH ×2 (08:20→20:45)
[2017-04-18] MEDS: ASCORBIC ACID 500 MG TABLET GT SCH ×2 (08:20→17:25)
[2017-04-18] MEDS: DOCUSATE SODIUM LIQ 100 MG/10 ML UDC GT SCH ×2 (08:20→17:25)
[2017-04-18] MEDS: HEPARIN SODIUM, PORCINE 5000 UNITS/1 ML VIAL SQ SCH ×2 (08:20→20:54)
[2017-04-18] MEDS: BACLOFEN (10 MG) 10 MG TABLET GT SCH ×3 (08:20→17:25)
[2017-04-18] MEDS: GLYCOPYRROLATE 1 MG TABLET GT SCH ×2 (08:20→17:25)
[2017-04-18] MEDS: HYDROGEN PEROXIDE 480 ML BOTTLE TP SCH ×2 (08:21→20:52)
[2017-04-18] MEDS: Z GUARD REMEDY 4 OZ OINT TP SCH ×2 (08:21→20:52)
[2017-04-18] MEDS: INSULIN LISPRO/ASPART 100 UNIT/ML CARTRIDGE SQ PRN (18:08)
[2017-04-18 20:03] VITALS: BP 118/68
[2017-04-18] MEDS: MULTIVIT, IRON, MIN NO. 8, FA 1 TAB GT SCH (20:45)
[2017-04-18] MEDS: INSULIN DETEMIR 100 UNIT/ML CARTRIDGE SQ SCH (21:06)
[2017-04-18] MEDS: SENNOSIDES 8.6 MG TABLET GT SCH (21:06)
[2017-04-19] MEDS: ALBUTEROL FS 2.5 MG/3 ML VIAL.NEB NEB SCH ×4 (02:01→20:05)
[2017-04-19] MEDS: IPRATROPIUM NEB FS 0.5 MG/2.5 ML AMPUL.NEB NEB SCH ×4 (02:01→20:05)
[2017-04-19] MEDS: POLYVINYL ALCOHOL 15 ML BOTTLE EACHEYE SCH ×4 (05:08→23:10)
[2017-04-19] MEDS: PANTOPRAZOLE 40 MG/PACK PACK GT SCH (05:10)
[2017-04-19] MEDS: BLOOD SUGAR DIAGNOSTIC 1 EACH STRIP IN SCH ×2 (05:16→17:28)
[2017-04-19] MEDS: INSULIN LISPRO/ASPART 100 UNIT/ML CARTRIDGE SQ PRN (05:16)
[2017-04-19 07:52] VITALS: BP 93/60
[2017-04-19] MEDS: POTASSIUM CHLORIDE 20 MEQ POWDER PACKET GT SCH (08:56)
[2017-04-19] MEDS: DOCUSATE SODIUM LIQ 100 MG/10 ML UDC GT SCH ×2 (08:56→16:23)
[2017-04-19] MEDS: GLYCOPYRROLATE 1 MG TABLET GT SCH ×2 (08:56→16:23)
[2017-04-19] MEDS: LEVETIRACETAM SOL (5 ML) 100 MG/ML UDC GT SCH ×2 (08:56→20:28)
[2017-04-19] MEDS: BACLOFEN (10 MG) 10 MG TABLET GT SCH ×3 (08:56→16:23)
[2017-04-19] MEDS: FERROUS SULFATE - FOR SA ONLY 330 MG/7.5 ML UDC GT SCH ×3 (08:56→16:23)
[2017-04-19] MEDS: ASCORBIC ACID 500 MG TABLET GT SCH ×2 (08:56→16:23)
[2017-04-19] MEDS: Z GUARD REMEDY 4 OZ OINT TP SCH ×2 (08:57→20:32)
[2017-04-19] MEDS: HYDROGEN PEROXIDE 480 ML BOTTLE TP SCH ×2 (08:57→20:32)
[2017-04-19] MEDS: HEPARIN SODIUM, PORCINE 5000 UNITS/1 ML VIAL SQ SCH ×2 (08:57→20:31)
[2017-04-19] MEDS: MULTIVIT, IRON, MIN NO. 8, FA 1 TAB GT SCH (20:28)
[2017-04-19 20:37] VITALS: BP 102/64
[2017-04-19] MEDS: SENNOSIDES 8.6 MG TABLET GT SCH (22:39)
[2017-04-19] MEDS: INSULIN DETEMIR 100 UNIT/ML CARTRIDGE SQ SCH (22:55)
[2017-04-20] MEDS: IPRATROPIUM NEB FS 0.5 MG/2.5 ML AMPUL.NEB NEB SCH ×4 (01:08→19:25)
[2017-04-20] MEDS: ALBUTEROL FS 2.5 MG/3 ML VIAL.NEB NEB SCH ×4 (01:08→19:25)
[2017-04-20] MEDS: POLYVINYL ALCOHOL 15 ML BOTTLE EACHEYE SCH ×3 (05:29→18:37)
[2017-04-20] MEDS: PANTOPRAZOLE 40 MG/PACK PACK GT SCH (05:30)
[2017-04-20] MEDS: BLOOD SUGAR DIAGNOSTIC 1 EACH STRIP IN SCH ×2 (05:30→18:37)
[2017-04-20] MEDS: GLYTROL 1,000 ML BAG GT PRN (06:18)
[2017-04-20 07:38] VITALS: BP 94/56
[2017-04-20] MEDS: FERROUS SULFATE - FOR SA ONLY 330 MG/7.5 ML UDC GT SCH ×3 (08:55→17:00)
[2017-04-20] MEDS: ASCORBIC ACID 500 MG TABLET GT SCH ×2 (08:55→17:00)
[2017-04-20] MEDS: GLYCOPYRROLATE 1 MG TABLET GT SCH ×2 (08:55→17:00)
[2017-04-20] MEDS: LEVETIRACETAM SOL (5 ML) 100 MG/ML UDC GT SCH ×2 (08:55→21:42)
[2017-04-20] MEDS: BACLOFEN (10 MG) 10 MG TABLET GT SCH ×3 (08:55→17:00)
[2017-04-20] MEDS: POTASSIUM CHLORIDE 20 MEQ POWDER PACKET GT SCH (08:55)
[2017-04-20] MEDS: DOCUSATE SODIUM LIQ 100 MG/10 ML UDC GT SCH ×2 (08:55→17:00)
[2017-04-20] MEDS: HEPARIN SODIUM, PORCINE 5000 UNITS/1 ML VIAL SQ SCH ×2 (08:56→21:43)
[2017-04-20] MEDS: HYDROGEN PEROXIDE 480 ML BOTTLE TP SCH ×2 (09:00→21:43)
[2017-04-20] MEDS: Z GUARD REMEDY 4 OZ OINT TP SCH ×2 (09:00→21:43)
[2017-04-20] MEDS: INSULIN LISPRO/ASPART 100 UNIT/ML CARTRIDGE SQ PRN (18:37)
[2017-04-20 20:31] VITALS: BP 99/61
[2017-04-20] MEDS: MULTIVIT, IRON, MIN NO. 8, FA 1 TAB GT SCH (21:42)
[2017-04-20] MEDS: SENNOSIDES 8.6 MG TABLET GT SCH (21:43)
[2017-04-20] MEDS: INSULIN DETEMIR 100 UNIT/ML CARTRIDGE SQ SCH (21:44)
[2017-04-21] MEDS: POLYVINYL ALCOHOL 15 ML BOTTLE EACHEYE SCH ×4 (00:11→18:52)
[2017-04-21] MEDS: GLYTROL 1,000 ML BAG GT PRN (00:17)
[2017-04-21] MEDS: IPRATROPIUM NEB FS 0.5 MG/2.5 ML AMPUL.NEB NEB SCH ×4 (02:17→19:40)
[2017-04-21] MEDS: ALBUTEROL FS 2.5 MG/3 ML VIAL.NEB NEB SCH ×4 (02:17→19:40)
[2017-04-21] MEDS: BLOOD SUGAR DIAGNOSTIC 1 EACH STRIP IN SCH ×2 (05:58→18:56)
[2017-04-21] MEDS: INSULIN LISPRO/ASPART 100 UNIT/ML CARTRIDGE SQ PRN ×2 (05:58→18:53)
[2017-04-21] MEDS: PANTOPRAZOLE 40 MG/PACK PACK GT SCH (05:58)
[2017-04-21] MEDS: GLYCOPYRROLATE 1 MG TABLET GT SCH ×2 (09:00→17:00)
[2017-04-21] MEDS: HEPARIN SODIUM, PORCINE 5000 UNITS/1 ML VIAL SQ SCH ×2 (09:00→21:39)
[2017-04-21] MEDS: BACLOFEN (10 MG) 10 MG TABLET GT SCH ×3 (09:00→17:00)
[2017-04-21] MEDS: HYDROGEN PEROXIDE 480 ML BOTTLE TP SCH ×2 (09:00→21:39)
[2017-04-21] MEDS: DOCUSATE SODIUM LIQ 100 MG/10 ML UDC GT SCH ×2 (09:00→17:00)
[2017-04-21] MEDS: LEVETIRACETAM SOL (5 ML) 100 MG/ML UDC GT SCH ×2 (09:00→21:38)
[2017-04-21] MEDS: Z GUARD REMEDY 4 OZ OINT TP SCH ×2 (09:00→21:39)
[2017-04-21] MEDS: FERROUS SULFATE - FOR SA ONLY 330 MG/7.5 ML UDC GT SCH ×3 (09:00→17:00)
[2017-04-21] MEDS: POTASSIUM CHLORIDE 20 MEQ POWDER PACKET GT SCH (09:00)
[2017-04-21] MEDS: ASCORBIC ACID 500 MG TABLET GT SCH ×2 (09:00→17:00)
[2017-04-21 09:18] VITALS: BP 120/70
[2017-04-21 19:30] VITALS: BP 107/73
[2017-04-21] MEDS: MULTIVIT, IRON, MIN NO. 8, FA 1 TAB GT SCH (21:38)
[2017-04-21] MEDS: SENNOSIDES 8.6 MG TABLET GT SCH (21:39)
[2017-04-21] MEDS: INSULIN DETEMIR 100 UNIT/ML CARTRIDGE SQ SCH (21:41)
[2017-04-22] MEDS: POLYVINYL ALCOHOL 15 ML BOTTLE EACHEYE SCH ×4 (00:09→17:06)
[2017-04-22] MEDS: GLYTROL 1,000 ML BAG GT PRN (00:10)
[2017-04-22] MEDS: IPRATROPIUM NEB FS 0.5 MG/2.5 ML AMPUL.NEB NEB SCH ×4 (00:49→19:04)
[2017-04-22] MEDS: ALBUTEROL FS 2.5 MG/3 ML VIAL.NEB NEB SCH ×4 (00:49→19:04)
[2017-04-22] MEDS: BLOOD SUGAR DIAGNOSTIC 1 EACH STRIP IN SCH ×2 (05:06→17:06)
[2017-04-22] MEDS: PANTOPRAZOLE 40 MG/PACK PACK GT SCH (05:06)
[2017-04-22] MEDS: INSULIN LISPRO/ASPART 100 UNIT/ML CARTRIDGE SQ PRN (05:07)
[2017-04-22 07:31] VITALS: BP 127/70
[2017-04-22] MEDS: DOCUSATE SODIUM LIQ 100 MG/10 ML UDC GT SCH ×2 (09:38→17:05)
[2017-04-22] MEDS: FERROUS SULFATE - FOR SA ONLY 330 MG/7.5 ML UDC GT SCH ×3 (09:39→17:05)
[2017-04-22] MEDS: GLYCOPYRROLATE 1 MG TABLET GT SCH ×2 (09:40→17:06)
[2017-04-22] MEDS: BACLOFEN (10 MG) 10 MG TABLET GT SCH ×3 (09:40→17:06)
[2017-04-22] MEDS: LEVETIRACETAM SOL (5 ML) 100 MG/ML UDC GT SCH ×2 (09:40→20:10)
[2017-04-22] MEDS: POTASSIUM CHLORIDE 20 MEQ POWDER PACKET GT SCH (09:40)
[2017-04-22] MEDS: HEPARIN SODIUM, PORCINE 5000 UNITS/1 ML VIAL SQ SCH ×2 (09:41→20:10)
[2017-04-22] MEDS: ASCORBIC ACID 500 MG TABLET GT SCH ×2 (09:41→17:06)
[2017-04-22] MEDS: Z GUARD REMEDY 4 OZ OINT TP SCH ×2 (09:42→20:10)
[2017-04-22] MEDS: HYDROGEN PEROXIDE 480 ML BOTTLE TP SCH ×2 (11:00→20:10)
--- NOTE | 2017-04-22 15:00 | NUR ---
SW spoke to the resident's sister Tosin Horvath. She stated that she would like the flu vaccine to be given to the resident. Charge nurse was informed.
[2017-04-22 19:10] VITALS: BP 100/57
[2017-04-22] MEDS: CLOTRIMAZOLE 1% 15 GM TUBE TP SCH (20:10)
[2017-04-22] MEDS: MULTIVIT, IRON, MIN NO. 8, FA 1 TAB GT SCH (20:10)
[2017-04-22] MEDS: SENNOSIDES 8.6 MG TABLET GT SCH (22:09)
[2017-04-22] MEDS: INSULIN DETEMIR 100 UNIT/ML CARTRIDGE SQ SCH (22:09)
[2017-04-23] MEDS: POLYVINYL ALCOHOL 15 ML BOTTLE EACHEYE SCH ×4 (00:16→17:51)
[2017-04-23] MEDS: IPRATROPIUM NEB FS 0.5 MG/2.5 ML AMPUL.NEB NEB SCH ×4 (01:19→19:26)
[2017-04-23] MEDS: ALBUTEROL FS 2.5 MG/3 ML VIAL.NEB NEB SCH ×4 (01:19→19:26)
[2017-04-23] MEDS: GLYTROL 1,000 ML BAG GT PRN (02:17)
[2017-04-23] MEDS: INSULIN LISPRO/ASPART 100 UNIT/ML CARTRIDGE SQ PRN ×2 (05:22→18:25)
[2017-04-23] MEDS: PANTOPRAZOLE 40 MG/PACK PACK GT SCH (05:22)
[2017-04-23] MEDS: BLOOD SUGAR DIAGNOSTIC 1 EACH STRIP IN SCH ×2 (05:22→18:25)
[2017-04-23 07:36] VITALS: BP 115/71
[2017-04-23] MEDS: GLYCOPYRROLATE 1 MG TABLET GT SCH ×2 (08:30→17:51)
[2017-04-23] MEDS: DOCUSATE SODIUM LIQ 100 MG/10 ML UDC GT SCH ×2 (08:30→17:51)
[2017-04-23] MEDS: LEVETIRACETAM SOL (5 ML) 100 MG/ML UDC GT SCH ×2 (08:30→21:45)
[2017-04-23] MEDS: POTASSIUM CHLORIDE 20 MEQ POWDER PACKET GT SCH (08:30)
[2017-04-23] MEDS: ASCORBIC ACID 500 MG TABLET GT SCH ×2 (08:30→17:51)
[2017-04-23] MEDS: FERROUS SULFATE - FOR SA ONLY 330 MG/7.5 ML UDC GT SCH ×3 (08:30→17:51)
[2017-04-23] MEDS: BACLOFEN (10 MG) 10 MG TABLET GT SCH ×3 (08:30→17:51)
[2017-04-23] MEDS: HEPARIN SODIUM, PORCINE 5000 UNITS/1 ML VIAL SQ SCH ×2 (08:33→21:45)
[2017-04-23] MEDS: CLOTRIMAZOLE 1% 15 GM TUBE TP SCH ×2 (09:00→21:49)
[2017-04-23] MEDS: HYDROGEN PEROXIDE 480 ML BOTTLE TP SCH ×2 (09:00→21:49)
[2017-04-23] MEDS: Z GUARD REMEDY 4 OZ OINT TP SCH ×2 (09:00→21:49)
[2017-04-23 19:34] VITALS: BP 112/65
[2017-04-23] MEDS: MULTIVIT, IRON, MIN NO. 8, FA 1 TAB GT SCH (21:45)
[2017-04-23] MEDS: SENNOSIDES 8.6 MG TABLET GT SCH (21:49)
[2017-04-23] MEDS: INSULIN DETEMIR 100 UNIT/ML CARTRIDGE SQ SCH (21:50)
[2017-04-24] MEDS: POLYVINYL ALCOHOL 15 ML BOTTLE EACHEYE SCH ×5 (00:40→23:37)
[2017-04-24] MEDS: IPRATROPIUM NEB FS 0.5 MG/2.5 ML AMPUL.NEB NEB SCH ×4 (01:32→19:18)
[2017-04-24] MEDS: ALBUTEROL FS 2.5 MG/3 ML VIAL.NEB NEB SCH ×4 (01:32→19:18)
[2017-04-24] MEDS: PANTOPRAZOLE 40 MG/PACK PACK GT SCH (05:04)
[2017-04-24] MEDS: GLYTROL 1,000 ML BAG GT PRN (05:04)
[2017-04-24] MEDS: BLOOD SUGAR DIAGNOSTIC 1 EACH STRIP IN SCH ×2 (05:13→17:40)
[2017-04-24] MEDS: INSULIN LISPRO/ASPART 100 UNIT/ML CARTRIDGE SQ PRN (05:13)
[2017-04-24 07:58] VITALS: BP 164/79
[2017-04-24] MEDS: ASCORBIC ACID 500 MG TABLET GT SCH ×2 (08:43→16:37)
[2017-04-24] MEDS: GLYCOPYRROLATE 1 MG TABLET GT SCH ×2 (08:43→16:37)
[2017-04-24] MEDS: DOCUSATE SODIUM LIQ 100 MG/10 ML UDC GT SCH ×2 (08:43→16:37)
[2017-04-24] MEDS: BACLOFEN (10 MG) 10 MG TABLET GT SCH ×3 (08:43→16:37)
[2017-04-24] MEDS: POTASSIUM CHLORIDE 20 MEQ POWDER PACKET GT SCH (08:43)
[2017-04-24] MEDS: LEVETIRACETAM SOL (5 ML) 100 MG/ML UDC GT SCH ×2 (08:43→20:29)
[2017-04-24] MEDS: FERROUS SULFATE - FOR SA ONLY 330 MG/7.5 ML UDC GT SCH ×3 (08:43→16:37)
[2017-04-24] MEDS: HYDROGEN PEROXIDE 480 ML BOTTLE TP SCH ×2 (08:44→20:29)
[2017-04-24] MEDS: HEPARIN SODIUM, PORCINE 5000 UNITS/1 ML VIAL SQ SCH ×2 (08:44→20:33)
[2017-04-24] MEDS: Z GUARD REMEDY 4 OZ OINT TP SCH ×2 (08:44→20:29)
[2017-04-24] MEDS: CLOTRIMAZOLE 1% 15 GM TUBE TP SCH ×2 (08:44→20:29)
[2017-04-24] MEDS ORDERED: FLU VACC QS 2017-18(36MOS+)/PF 0.5 ML DISP.SYRIN IM ONE (17:00)
[2017-04-24 19:26] VITALS: BP 111/51
[2017-04-24] MEDS: MULTIVIT, IRON, MIN NO. 8, FA 1 TAB GT SCH (20:29)
[2017-04-24] MEDS: SENNOSIDES 8.6 MG TABLET GT SCH (22:58)
[2017-04-24] MEDS: INSULIN DETEMIR 100 UNIT/ML CARTRIDGE SQ SCH (22:59)
[2017-04-25] MEDS: ALBUTEROL FS 2.5 MG/3 ML VIAL.NEB NEB SCH ×4 (01:09→19:21)
[2017-04-25] MEDS: IPRATROPIUM NEB FS 0.5 MG/2.5 ML AMPUL.NEB NEB SCH ×4 (01:09→19:21)
[2017-04-25] MEDS: BLOOD SUGAR DIAGNOSTIC 1 EACH STRIP IN SCH ×2 (05:16→18:45)
[2017-04-25] MEDS: POLYVINYL ALCOHOL 15 ML BOTTLE EACHEYE SCH ×4 (05:16→23:51)
[2017-04-25] MEDS: PANTOPRAZOLE 40 MG/PACK PACK GT SCH (05:18)
[2017-04-25] MEDS: GLYTROL 1,000 ML BAG GT PRN (05:20)
[2017-04-25] MEDS: GLYCOPYRROLATE 1 MG TABLET GT SCH ×2 (08:20→17:09)
[2017-04-25] MEDS: FERROUS SULFATE - FOR SA ONLY 330 MG/7.5 ML UDC GT SCH ×3 (08:20→17:09)
[2017-04-25] MEDS: LEVETIRACETAM SOL (5 ML) 100 MG/ML UDC GT SCH ×2 (08:20→20:51)
[2017-04-25] MEDS: ASCORBIC ACID 500 MG TABLET GT SCH ×2 (08:20→17:09)
[2017-04-25] MEDS: DOCUSATE SODIUM LIQ 100 MG/10 ML UDC GT SCH ×2 (08:20→17:09)
[2017-04-25] MEDS: BACLOFEN (10 MG) 10 MG TABLET GT SCH ×3 (08:20→17:09)
[2017-04-25] MEDS: POTASSIUM CHLORIDE 20 MEQ POWDER PACKET GT SCH (08:20)
[2017-04-25] MEDS: HEPARIN SODIUM, PORCINE 5000 UNITS/1 ML VIAL SQ SCH ×2 (08:21→20:53)
[2017-04-25] MEDS: Z GUARD REMEDY 4 OZ OINT TP SCH ×2 (08:21→20:56)
[2017-04-25] MEDS: HYDROGEN PEROXIDE 480 ML BOTTLE TP SCH ×2 (08:21→20:56)
[2017-04-25] MEDS: CLOTRIMAZOLE 1% 15 GM TUBE TP SCH ×2 (08:21→20:56)
--- NOTE | 2017-04-25 08:36 | NUR ---
RT PATIENT REC'D TRACHED ON [facility] VENT WITH SETTINGS SET BY TOLERATED WELL. VENT ALARMS CHECKED + AUDIBLE. TRACH SECURE AND IN PROPER POSITION. CUFF CHECKED TEAM ASSEMBLER. DIM COARSE BILAT B/S. SX'D WITH MOD AMT PALE SEMITHICK SECRETIONS. PATIENT APPEARS COMFORTABLE AND IN NO DISTRESS. AMBU BAG AND BACK UP TRACH AT BEDSIDE. CONT CURRENT PLAN OF RESP CARE. Addendum: 04/25/17 at 1204 by MERISSA BHATT RT Amended: Links added.
--- NOTE | 2017-04-25 18:10 | NUR ---
No adverse reaction to flu vaccine noted.
[2017-04-25] MEDS: INSULIN LISPRO/ASPART 100 UNIT/ML CARTRIDGE SQ PRN (18:46)
[2017-04-25 20:21] VITALS: BP 103/64
[2017-04-25] MEDS: MULTIVIT, IRON, MIN NO. 8, FA 1 TAB GT SCH (20:52)
--- NOTE | 2017-04-25 21:00 | NUR ---
RN NOTES No adverse reaction to flu vaccine noted.
[2017-04-25] MEDS: INSULIN DETEMIR 100 UNIT/ML CARTRIDGE SQ SCH (21:04)
[2017-04-25] MEDS: SENNOSIDES 8.6 MG TABLET GT SCH (21:09)
[2017-04-26] MEDS: ALBUTEROL FS 2.5 MG/3 ML VIAL.NEB NEB SCH ×4 (01:42→19:20)
[2017-04-26] MEDS: IPRATROPIUM NEB FS 0.5 MG/2.5 ML AMPUL.NEB NEB SCH ×4 (01:42→19:20)
[2017-04-26] MEDS: POLYVINYL ALCOHOL 15 ML BOTTLE EACHEYE SCH ×5 (05:23→23:04)
[2017-04-26] MEDS: PANTOPRAZOLE 40 MG/PACK PACK GT SCH (05:29)
[2017-04-26] MEDS: BLOOD SUGAR DIAGNOSTIC 1 EACH STRIP IN SCH ×2 (05:34→18:29)
--- NOTE | 2017-04-26 06:41 | NUR ---
NO SIGNIFICANT CHANGES OVERNIGHT VSS,AFEBRILE
[2017-04-26] MEDS: DOCUSATE SODIUM LIQ 100 MG/10 ML UDC GT SCH ×2 (08:51→17:23)
[2017-04-26] MEDS: LEVETIRACETAM SOL (5 ML) 100 MG/ML UDC GT SCH ×2 (08:51→21:05)
[2017-04-26] MEDS: HEPARIN SODIUM, PORCINE 5000 UNITS/1 ML VIAL SQ SCH ×2 (08:51→21:06)
[2017-04-26] MEDS: FERROUS SULFATE - FOR SA ONLY 330 MG/7.5 ML UDC GT SCH ×3 (08:51→17:23)
[2017-04-26] MEDS: POTASSIUM CHLORIDE 20 MEQ POWDER PACKET GT SCH (08:51)
[2017-04-26] MEDS: GLYCOPYRROLATE 1 MG TABLET GT SCH ×2 (08:51→17:23)
[2017-04-26] MEDS: ASCORBIC ACID 500 MG TABLET GT SCH ×2 (08:51→17:23)
[2017-04-26] MEDS: BACLOFEN (10 MG) 10 MG TABLET GT SCH ×3 (08:51→17:23)
[2017-04-26] MEDS: CLOTRIMAZOLE 1% 15 GM TUBE TP SCH ×2 (08:52→21:06)
[2017-04-26] MEDS: Z GUARD REMEDY 4 OZ OINT TP SCH ×2 (08:52→21:06)
[2017-04-26] MEDS: HYDROGEN PEROXIDE 480 ML BOTTLE TP SCH ×2 (08:52→21:06)
[2017-04-26] MEDS: INSULIN LISPRO/ASPART 100 UNIT/ML CARTRIDGE SQ PRN (18:29)
[2017-04-26 19:36] VITALS: BP 100/68
[2017-04-26] MEDS: SENNOSIDES 8.6 MG TABLET GT SCH (21:06)
[2017-04-26] MEDS: INSULIN DETEMIR 100 UNIT/ML CARTRIDGE SQ SCH (21:06)
[2017-04-26] MEDS: MULTIVIT, IRON, MIN NO. 8, FA 1 TAB GT SCH (21:06)
[2017-04-27] MEDS: IPRATROPIUM NEB FS 0.5 MG/2.5 ML AMPUL.NEB NEB SCH ×4 (01:41→19:16)
[2017-04-27] MEDS: ALBUTEROL FS 2.5 MG/3 ML VIAL.NEB NEB SCH ×4 (01:41→19:16)
[2017-04-27] MEDS: POLYVINYL ALCOHOL 15 ML BOTTLE EACHEYE SCH ×3 (05:28→17:20)
[2017-04-27] MEDS: PANTOPRAZOLE 40 MG/PACK PACK GT SCH (05:28)
[2017-04-27] MEDS: BLOOD SUGAR DIAGNOSTIC 1 EACH STRIP IN SCH ×2 (05:28→17:20)
[2017-04-27] MEDS: GLYTROL 1,000 ML BAG GT PRN (05:30)
[2017-04-27 08:09] VITALS: BP 112/73
[2017-04-27] MEDS: Z GUARD REMEDY 4 OZ OINT TP SCH ×2 (09:00→21:48)
[2017-04-27] MEDS: HYDROGEN PEROXIDE 480 ML BOTTLE TP SCH ×2 (09:00→21:48)
[2017-04-27] MEDS: CLOTRIMAZOLE 1% 15 GM TUBE TP SCH ×2 (09:00→21:48)
[2017-04-27] MEDS: LEVETIRACETAM SOL (5 ML) 100 MG/ML UDC GT SCH ×2 (09:26→21:47)
[2017-04-27] MEDS: FERROUS SULFATE - FOR SA ONLY 330 MG/7.5 ML UDC GT SCH ×3 (09:26→17:19)
[2017-04-27] MEDS: POTASSIUM CHLORIDE 20 MEQ POWDER PACKET GT SCH (09:26)
[2017-04-27] MEDS: ASCORBIC ACID 500 MG TABLET GT SCH ×2 (09:26→17:19)
[2017-04-27] MEDS: GLYCOPYRROLATE 1 MG TABLET GT SCH ×2 (09:26→17:19)
[2017-04-27] MEDS: BACLOFEN (10 MG) 10 MG TABLET GT SCH ×3 (09:26→17:19)
[2017-04-27] MEDS: DOCUSATE SODIUM LIQ 100 MG/10 ML UDC GT SCH ×2 (09:26→17:19)
[2017-04-27] MEDS: HEPARIN SODIUM, PORCINE 5000 UNITS/1 ML VIAL SQ SCH ×2 (09:27→21:48)
--- NOTE | 2017-04-27 14:26 | NUR ---
Sister informed that resident will temporarily be placed into an ICU room while they make improvements to resident's current room. SW suggested that she can check in with the charge nurse to see what room resident was assigned to. Sister appreciated the information.
[2017-04-27] MEDS: INSULIN LISPRO/ASPART 100 UNIT/ML CARTRIDGE SQ PRN (17:20)
[2017-04-27 20:01] VITALS: BP 109/51
[2017-04-27] MEDS: MULTIVIT, IRON, MIN NO. 8, FA 1 TAB GT SCH (21:47)
[2017-04-27] MEDS: INSULIN DETEMIR 100 UNIT/ML CARTRIDGE SQ SCH (21:48)
[2017-04-27] MEDS: SENNOSIDES 8.6 MG TABLET GT SCH (21:48)
[2017-04-28] MEDS: POLYVINYL ALCOHOL 15 ML BOTTLE EACHEYE SCH ×4 (00:13→18:25)
[2017-04-28] MEDS: IPRATROPIUM NEB FS 0.5 MG/2.5 ML AMPUL.NEB NEB SCH ×4 (02:20→19:30)
[2017-04-28] MEDS: ALBUTEROL FS 2.5 MG/3 ML VIAL.NEB NEB SCH ×4 (02:20→19:30)
[2017-04-28] MEDS: GLYTROL 1,000 ML BAG GT PRN (05:51)
[2017-04-28] MEDS: PANTOPRAZOLE 40 MG/PACK PACK GT SCH (05:51)
[2017-04-28] MEDS: BLOOD SUGAR DIAGNOSTIC 1 EACH STRIP IN SCH ×2 (05:51→18:25)
[2017-04-28] MEDS: INSULIN LISPRO/ASPART 100 UNIT/ML CARTRIDGE SQ PRN ×2 (05:52→18:28)
[2017-04-28 07:59] VITALS: BP 95/68
[2017-04-28] MEDS: POTASSIUM CHLORIDE 20 MEQ POWDER PACKET GT SCH (09:15)
[2017-04-28] MEDS: GLYCOPYRROLATE 1 MG TABLET GT SCH ×2 (09:15→17:00)
[2017-04-28] MEDS: CLOTRIMAZOLE 1% 15 GM TUBE TP SCH ×2 (09:15→21:56)
[2017-04-28] MEDS: FERROUS SULFATE - FOR SA ONLY 330 MG/7.5 ML UDC GT SCH ×3 (09:15→17:00)
[2017-04-28] MEDS: LEVETIRACETAM SOL (5 ML) 100 MG/ML UDC GT SCH ×2 (09:15→21:55)
[2017-04-28] MEDS: BACLOFEN (10 MG) 10 MG TABLET GT SCH ×3 (09:15→17:00)
[2017-04-28] MEDS: DOCUSATE SODIUM LIQ 100 MG/10 ML UDC GT SCH ×2 (09:15→17:00)
[2017-04-28] MEDS: HYDROGEN PEROXIDE 480 ML BOTTLE TP SCH ×2 (09:15→21:56)
[2017-04-28] MEDS: ASCORBIC ACID 500 MG TABLET GT SCH ×2 (09:15→17:00)
[2017-04-28] MEDS: HEPARIN SODIUM, PORCINE 5000 UNITS/1 ML VIAL SQ SCH ×2 (09:15→21:56)
[2017-04-28] MEDS: Z GUARD REMEDY 4 OZ OINT TP SCH ×2 (09:16→21:56)
[2017-04-28 19:15] VITALS: BP 119/76
[2017-04-28] MEDS: MULTIVIT, IRON, MIN NO. 8, FA 1 TAB GT SCH (21:55)
[2017-04-28] MEDS: SENNOSIDES 8.6 MG TABLET GT SCH (21:56)
[2017-04-28] MEDS: INSULIN DETEMIR 100 UNIT/ML CARTRIDGE SQ SCH (21:57)
[2017-04-29] MEDS: ALBUTEROL FS 2.5 MG/3 ML VIAL.NEB NEB SCH ×4 (01:40→19:51)
[2017-04-29] MEDS: IPRATROPIUM NEB FS 0.5 MG/2.5 ML AMPUL.NEB NEB SCH ×4 (01:40→19:51)
[2017-04-29] MEDS: BLOOD SUGAR DIAGNOSTIC 1 EACH STRIP IN SCH ×2 (06:09→18:33)
[2017-04-29] MEDS: PANTOPRAZOLE 40 MG/PACK PACK GT SCH (06:09)
[2017-04-29] MEDS: POLYVINYL ALCOHOL 15 ML BOTTLE EACHEYE SCH ×4 (06:09→17:56)
[2017-04-29] MEDS: INSULIN LISPRO/ASPART 100 UNIT/ML CARTRIDGE SQ PRN (06:09)
[2017-04-29] MEDS: GLYTROL 1,000 ML BAG GT PRN (06:09)
[2017-04-29 07:45] VITALS: BP 97/61
[2017-04-29] MEDS: DOCUSATE SODIUM LIQ 100 MG/10 ML UDC GT SCH ×2 (09:15→17:55)
[2017-04-29] MEDS: FERROUS SULFATE - FOR SA ONLY 330 MG/7.5 ML UDC GT SCH ×3 (09:15→17:55)
[2017-04-29] MEDS: BACLOFEN (10 MG) 10 MG TABLET GT SCH ×3 (09:16→17:55)
[2017-04-29] MEDS: ASCORBIC ACID 500 MG TABLET GT SCH ×2 (09:16→17:55)
[2017-04-29] MEDS: GLYCOPYRROLATE 1 MG TABLET GT SCH ×2 (09:16→17:55)
[2017-04-29] MEDS: HEPARIN SODIUM, PORCINE 5000 UNITS/1 ML VIAL SQ SCH ×2 (09:17→21:10)
[2017-04-29] MEDS: CLOTRIMAZOLE 1% 15 GM TUBE TP SCH ×2 (09:17→21:11)
[2017-04-29] MEDS: Z GUARD REMEDY 4 OZ OINT TP SCH ×2 (09:17→21:11)
[2017-04-29] MEDS: LEVETIRACETAM SOL (5 ML) 100 MG/ML UDC GT SCH ×2 (09:52→21:10)
[2017-04-29] MEDS: POTASSIUM CHLORIDE 20 MEQ POWDER PACKET GT SCH (09:52)
[2017-04-29] MEDS: HYDROGEN PEROXIDE 480 ML BOTTLE TP SCH ×2 (11:45→21:11)
--- NOTE | 2017-04-29 15:10 | NUR ---
IDT meeting held. Sister unable to attend. Current orders, new medications, treatment and plan of care reviewed. Dietary wanted to see if it is okay to add Prostat BID and this is okay per Dr. Alvarez. No other orders were given.
[2017-04-29 19:49] VITALS: BP 95/52
[2017-04-29] MEDS: MULTIVIT, IRON, MIN NO. 8, FA 1 TAB GT SCH (21:10)
[2017-04-29] MEDS: SENNOSIDES 8.6 MG TABLET GT SCH (21:11)
[2017-04-29] MEDS: INSULIN DETEMIR 100 UNIT/ML CARTRIDGE SQ SCH (22:01)
[2017-04-30] MEDS: POLYVINYL ALCOHOL 15 ML BOTTLE EACHEYE SCH ×4 (00:31→18:00)
[2017-04-30] MEDS: ALBUTEROL FS 2.5 MG/3 ML VIAL.NEB NEB SCH ×4 (00:44→19:34)
[2017-04-30] MEDS: IPRATROPIUM NEB FS 0.5 MG/2.5 ML AMPUL.NEB NEB SCH ×4 (00:44→19:34)
[2017-04-30] MEDS: PANTOPRAZOLE 40 MG/PACK PACK GT SCH (05:48)
[2017-04-30] MEDS: BLOOD SUGAR DIAGNOSTIC 1 EACH STRIP IN SCH ×2 (05:48→18:00)
[2017-04-30] MEDS: GLYTROL 1,000 ML BAG GT PRN (05:48)
[2017-04-30] MEDS: INSULIN LISPRO/ASPART 100 UNIT/ML CARTRIDGE SQ PRN ×2 (05:49→18:00)
[2017-04-30 07:48] VITALS: BP 118/68
[2017-04-30] MEDS: CLOTRIMAZOLE 1% 15 GM TUBE TP SCH ×2 (09:00→21:54)
[2017-04-30] MEDS: Z GUARD REMEDY 4 OZ OINT TP SCH ×2 (09:00→21:54)
[2017-04-30] MEDS: HYDROGEN PEROXIDE 480 ML BOTTLE TP SCH ×2 (09:00→21:54)
[2017-04-30] MEDS: GLYCOPYRROLATE 1 MG TABLET GT SCH ×2 (09:53→17:00)
[2017-04-30] MEDS: PROSOURCE / PROSTAT (PYXIS) 30 ML UDC GT SCH ×2 (09:53→17:00)
[2017-04-30] MEDS: ASCORBIC ACID 500 MG TABLET GT SCH ×2 (09:53→17:00)
[2017-04-30] MEDS: BACLOFEN (10 MG) 10 MG TABLET GT SCH ×3 (09:53→17:00)
[2017-04-30] MEDS: FERROUS SULFATE - FOR SA ONLY 330 MG/7.5 ML UDC GT SCH ×3 (09:53→17:00)
[2017-04-30] MEDS: DOCUSATE SODIUM LIQ 100 MG/10 ML UDC GT SCH ×2 (09:53→17:00)
[2017-04-30] MEDS: LEVETIRACETAM SOL (5 ML) 100 MG/ML UDC GT SCH ×2 (09:53→21:51)
[2017-04-30] MEDS: POTASSIUM CHLORIDE 20 MEQ POWDER PACKET GT SCH (09:53)
[2017-04-30] MEDS: HEPARIN SODIUM, PORCINE 5000 UNITS/1 ML VIAL SQ SCH ×2 (09:53→21:54)
--- NOTE | 2017-04-30 12:10 | NUR ---
Seen and examined by TISH TaylorO given at this time.
[2017-04-30] MEDS: MULTIVIT, IRON, MIN NO. 8, FA 1 TAB GT SCH (21:00)
[2017-04-30] MEDS: SENNOSIDES 8.6 MG TABLET GT SCH (21:54)
[2017-04-30] MEDS: INSULIN DETEMIR 100 UNIT/ML CARTRIDGE SQ SCH (21:54)
[2017-05-01] MEDS: IPRATROPIUM NEB FS 0.5 MG/2.5 ML AMPUL.NEB NEB SCH ×4 (02:39→19:00)
[2017-05-01] MEDS: ALBUTEROL FS 2.5 MG/3 ML VIAL.NEB NEB SCH ×4 (02:39→19:00)
[2017-05-01] MEDS: BLOOD SUGAR DIAGNOSTIC 1 EACH STRIP IN SCH ×2 (05:33→17:06)
[2017-05-01] MEDS: POLYVINYL ALCOHOL 15 ML BOTTLE EACHEYE SCH ×5 (05:33→23:28)
[2017-05-01] MEDS: PANTOPRAZOLE 40 MG/PACK PACK GT SCH (05:33)
[2017-05-01] MEDS: INSULIN LISPRO/ASPART 100 UNIT/ML CARTRIDGE SQ PRN ×2 (05:33→17:07)
[2017-05-01] MEDS: GLYTROL 1,000 ML BAG GT PRN (05:33)
[2017-05-01] MEDS: ASCORBIC ACID 500 MG TABLET GT SCH ×2 (09:42→16:47)
[2017-05-01] MEDS: PROSOURCE / PROSTAT (PYXIS) 30 ML UDC GT SCH ×2 (09:42→16:47)
[2017-05-01] MEDS: GLYCOPYRROLATE 1 MG TABLET GT SCH ×2 (09:42→16:51)
[2017-05-01] MEDS: LEVETIRACETAM SOL (5 ML) 100 MG/ML UDC GT SCH ×2 (09:42→21:44)
[2017-05-01] MEDS: DOCUSATE SODIUM LIQ 100 MG/10 ML UDC GT SCH ×2 (09:42→16:51)
[2017-05-01] MEDS: POTASSIUM CHLORIDE 20 MEQ POWDER PACKET GT SCH (09:42)
[2017-05-01] MEDS: BACLOFEN (10 MG) 10 MG TABLET GT SCH ×3 (09:42→16:51)
[2017-05-01] MEDS: FERROUS SULFATE - FOR SA ONLY 330 MG/7.5 ML UDC GT SCH ×3 (09:42→16:47)
[2017-05-01] MEDS: Z GUARD REMEDY 4 OZ OINT TP SCH ×2 (09:43→21:45)
[2017-05-01] MEDS: CLOTRIMAZOLE 1% 15 GM TUBE TP SCH ×2 (09:43→21:45)
[2017-05-01] MEDS: HYDROGEN PEROXIDE 480 ML BOTTLE TP SCH ×2 (09:43→21:44)
[2017-05-01] MEDS: HEPARIN SODIUM, PORCINE 5000 UNITS/1 ML VIAL SQ SCH ×2 (09:43→21:44)
[2017-05-01 10:46] VITALS: BP 107/66
[2017-05-01 19:05] VITALS: BP 108/61
[2017-05-01] MEDS: MULTIVIT, IRON, MIN NO. 8, FA 1 TAB GT SCH (21:44)
[2017-05-01] MEDS: SENNOSIDES 8.6 MG TABLET GT SCH (21:45)
[2017-05-01] MEDS: INSULIN DETEMIR 100 UNIT/ML CARTRIDGE SQ SCH (21:45)
[2017-05-02] MEDS: ALBUTEROL FS 2.5 MG/3 ML VIAL.NEB NEB SCH ×4 (01:09→20:19)
[2017-05-02] MEDS: IPRATROPIUM NEB FS 0.5 MG/2.5 ML AMPUL.NEB NEB SCH ×4 (01:09→20:19)
[2017-05-02] MEDS: INSULIN LISPRO/ASPART 100 UNIT/ML CARTRIDGE SQ PRN ×3 (06:13→18:38)
[2017-05-02] MEDS: PANTOPRAZOLE 40 MG/PACK PACK GT SCH (06:13)
[2017-05-02] MEDS: POLYVINYL ALCOHOL 15 ML BOTTLE EACHEYE SCH ×4 (06:13→23:37)
[2017-05-02] MEDS: BLOOD SUGAR DIAGNOSTIC 1 EACH STRIP IN SCH ×2 (06:13→18:34)
[2017-05-02] MEDS: GLYTROL 1,000 ML BAG GT PRN (06:19)
[2017-05-02 08:07] VITALS: BP 106/67
[2017-05-02] MEDS: POTASSIUM CHLORIDE 20 MEQ POWDER PACKET GT SCH (08:12)
[2017-05-02] MEDS: DOCUSATE SODIUM LIQ 100 MG/10 ML UDC GT SCH ×2 (08:12→17:25)
[2017-05-02] MEDS: LEVETIRACETAM SOL (5 ML) 100 MG/ML UDC GT SCH ×2 (08:12→20:16)
[2017-05-02] MEDS: GLYCOPYRROLATE 1 MG TABLET GT SCH ×2 (08:12→17:25)
[2017-05-02] MEDS: FERROUS SULFATE - FOR SA ONLY 330 MG/7.5 ML UDC GT SCH ×3 (08:12→17:25)
[2017-05-02] MEDS: BACLOFEN (10 MG) 10 MG TABLET GT SCH ×3 (08:13→17:25)
[2017-05-02] MEDS: HYDROGEN PEROXIDE 480 ML BOTTLE TP SCH ×2 (08:13→20:34)
[2017-05-02] MEDS: CLOTRIMAZOLE 1% 15 GM TUBE TP SCH ×2 (08:13→20:34)
[2017-05-02] MEDS: Z GUARD REMEDY 4 OZ OINT TP SCH ×2 (08:13→20:34)
[2017-05-02] MEDS: HEPARIN SODIUM, PORCINE 5000 UNITS/1 ML VIAL SQ SCH ×2 (08:13→20:23)
[2017-05-02] MEDS: ASCORBIC ACID 500 MG TABLET GT SCH ×2 (08:13→17:25)
[2017-05-02] MEDS: PROSOURCE / PROSTAT (PYXIS) 30 ML UDC GT SCH ×2 (08:13→17:25)
--- NOTE | 2017-05-02 13:20 | NUR ---
SEEN AND EXAMINED BY LORENZO ESTEVES WITH NO NEW ORDERS AT THIS TIME.
[2017-05-02 19:49] VITALS: BP 100/60
[2017-05-02] MEDS: MULTIVIT, IRON, MIN NO. 8, FA 1 TAB GT SCH (20:16)
[2017-05-02] MEDS: INSULIN DETEMIR 100 UNIT/ML CARTRIDGE SQ SCH (22:00)
[2017-05-02] MEDS: SENNOSIDES 8.6 MG TABLET GT SCH (22:01)
[2017-05-03] MEDS: ALBUTEROL FS 2.5 MG/3 ML VIAL.NEB NEB SCH ×4 (02:07→20:22)
[2017-05-03] MEDS: IPRATROPIUM NEB FS 0.5 MG/2.5 ML AMPUL.NEB NEB SCH ×4 (02:07→20:21)
[2017-05-03] MEDS: GLYTROL 1,000 ML BAG GT PRN ×2 (04:47→23:29)
[2017-05-03] MEDS: BLOOD SUGAR DIAGNOSTIC 1 EACH STRIP IN SCH ×2 (05:31→18:33)
[2017-05-03] MEDS: PANTOPRAZOLE 40 MG/PACK PACK GT SCH (05:31)
[2017-05-03] MEDS: POLYVINYL ALCOHOL 15 ML BOTTLE EACHEYE SCH ×4 (05:31→23:16)
[2017-05-03] MEDS: INSULIN LISPRO/ASPART 100 UNIT/ML CARTRIDGE SQ PRN ×2 (05:48→18:34)
--- NOTE | 2017-05-03 05:49 | NUR ---
ticket puller/notes blood sugar 131, no insulin coverage as ordered. no signs of hypo glycemia noted.
[2017-05-03] MEDS: POTASSIUM CHLORIDE 20 MEQ POWDER PACKET GT SCH (08:06)
[2017-05-03] MEDS: BACLOFEN (10 MG) 10 MG TABLET GT SCH ×3 (08:06→16:54)
[2017-05-03] MEDS: GLYCOPYRROLATE 1 MG TABLET GT SCH ×2 (08:06→16:54)
[2017-05-03] MEDS: HYDROGEN PEROXIDE 480 ML BOTTLE TP SCH ×2 (08:06→21:27)
[2017-05-03] MEDS: LEVETIRACETAM SOL (5 ML) 100 MG/ML UDC GT SCH ×2 (08:06→21:27)
[2017-05-03] MEDS: FERROUS SULFATE - FOR SA ONLY 330 MG/7.5 ML UDC GT SCH ×3 (08:06→16:54)
[2017-05-03] MEDS: ASCORBIC ACID 500 MG TABLET GT SCH ×2 (08:06→16:54)
[2017-05-03] MEDS: HEPARIN SODIUM, PORCINE 5000 UNITS/1 ML VIAL SQ SCH ×2 (08:06→21:28)
[2017-05-03] MEDS: DOCUSATE SODIUM LIQ 100 MG/10 ML UDC GT SCH ×2 (08:06→16:54)
[2017-05-03] MEDS: PROSOURCE / PROSTAT (PYXIS) 30 ML UDC GT SCH ×2 (08:06→16:54)
[2017-05-03] MEDS: CLOTRIMAZOLE 1% 15 GM TUBE TP SCH ×2 (08:07→21:27)
[2017-05-03] MEDS: Z GUARD REMEDY 4 OZ OINT TP SCH ×2 (08:07→21:27)
[2017-05-03 08:22] VITALS: BP 104/62
[2017-05-03 20:01] VITALS: BP 99/66
[2017-05-03] MEDS: INSULIN DETEMIR 100 UNIT/ML CARTRIDGE SQ SCH (21:27)
[2017-05-03] MEDS: MULTIVIT, IRON, MIN NO. 8, FA 1 TAB GT SCH (21:27)
[2017-05-03] MEDS: SENNOSIDES 8.6 MG TABLET GT SCH (21:27)
[2017-05-04] MEDS: ALBUTEROL FS 2.5 MG/3 ML VIAL.NEB NEB SCH ×4 (01:28→19:58)
[2017-05-04] MEDS: IPRATROPIUM NEB FS 0.5 MG/2.5 ML AMPUL.NEB NEB SCH ×4 (01:28→19:58)
[2017-05-04] MEDS: PANTOPRAZOLE 40 MG/PACK PACK GT SCH (05:40)
[2017-05-04] MEDS: BLOOD SUGAR DIAGNOSTIC 1 EACH STRIP IN SCH ×2 (05:40→17:34)
[2017-05-04] MEDS: POLYVINYL ALCOHOL 15 ML BOTTLE EACHEYE SCH ×4 (05:40→23:15)
[2017-05-04 08:00] VITALS: BP 102/60
[2017-05-04] MEDS: DOCUSATE SODIUM LIQ 100 MG/10 ML UDC GT SCH ×2 (08:21→17:34)
[2017-05-04] MEDS: LEVETIRACETAM SOL (5 ML) 100 MG/ML UDC GT SCH ×2 (08:21→21:15)
[2017-05-04] MEDS: GLYCOPYRROLATE 1 MG TABLET GT SCH ×2 (08:21→17:34)
[2017-05-04] MEDS: POTASSIUM CHLORIDE 20 MEQ POWDER PACKET GT SCH (08:21)
[2017-05-04] MEDS: FERROUS SULFATE - FOR SA ONLY 330 MG/7.5 ML UDC GT SCH ×3 (08:21→17:34)
[2017-05-04] MEDS: PROSOURCE / PROSTAT (PYXIS) 30 ML UDC GT SCH ×2 (08:21→17:34)
[2017-05-04] MEDS: BACLOFEN (10 MG) 10 MG TABLET GT SCH ×3 (08:21→17:34)
[2017-05-04] MEDS: ASCORBIC ACID 500 MG TABLET GT SCH ×2 (08:21→17:34)
[2017-05-04] MEDS: HYDROGEN PEROXIDE 480 ML BOTTLE TP SCH ×2 (08:22→21:15)
[2017-05-04] MEDS: HEPARIN SODIUM, PORCINE 5000 UNITS/1 ML VIAL SQ SCH ×2 (08:22→21:15)
[2017-05-04] MEDS: CLOTRIMAZOLE 1% 15 GM TUBE TP SCH ×2 (09:00→21:15)
[2017-05-04] MEDS: Z GUARD REMEDY 4 OZ OINT TP SCH ×2 (09:00→21:15)
--- NOTE | 2017-05-04 15:20 | NUR ---
SEEN AND EXAMINED BY LORENZO ESTEVES WITH NO NEW ORDERS AT THIS TIME.
[2017-05-04] MEDS: INSULIN LISPRO/ASPART 100 UNIT/ML CARTRIDGE SQ PRN (17:35)
[2017-05-04 19:30] VITALS: BP 104/62
[2017-05-04] MEDS: SENNOSIDES 8.6 MG TABLET GT SCH (21:15)
[2017-05-04] MEDS: MULTIVIT, IRON, MIN NO. 8, FA 1 TAB GT SCH (21:15)
[2017-05-04] MEDS: INSULIN DETEMIR 100 UNIT/ML CARTRIDGE SQ SCH (21:16)
[2017-05-04] MEDS: POLYETHYLENE GLYCOL 3350 17 GM POWD.PACK GT PRN (21:16)
[2017-05-05] MEDS: IPRATROPIUM NEB FS 0.5 MG/2.5 ML AMPUL.NEB NEB SCH ×4 (01:24→18:55)
[2017-05-05] MEDS: ALBUTEROL FS 2.5 MG/3 ML VIAL.NEB NEB SCH ×4 (01:24→18:55)
[2017-05-05] MEDS: POLYVINYL ALCOHOL 15 ML BOTTLE EACHEYE SCH ×3 (05:29→17:04)
[2017-05-05] MEDS: BLOOD SUGAR DIAGNOSTIC 1 EACH STRIP IN SCH ×2 (05:29→17:04)
[2017-05-05] MEDS: GLYTROL 1,000 ML BAG GT PRN (05:29)
[2017-05-05] MEDS: INSULIN LISPRO/ASPART 100 UNIT/ML CARTRIDGE SQ PRN (05:29)
[2017-05-05] MEDS: PANTOPRAZOLE 40 MG/PACK PACK GT SCH (05:29)
[2017-05-05 07:38] VITALS: BP 107/42
[2017-05-05] MEDS: BACLOFEN (10 MG) 10 MG TABLET GT SCH ×3 (09:03→17:04)
[2017-05-05] MEDS: POTASSIUM CHLORIDE 20 MEQ POWDER PACKET GT SCH (09:03)
[2017-05-05] MEDS: DOCUSATE SODIUM LIQ 100 MG/10 ML UDC GT SCH ×2 (09:03→16:51)
[2017-05-05] MEDS: GLYCOPYRROLATE 1 MG TABLET GT SCH ×2 (09:03→16:51)
[2017-05-05] MEDS: LEVETIRACETAM SOL (5 ML) 100 MG/ML UDC GT SCH ×2 (09:03→20:45)
[2017-05-05] MEDS: FERROUS SULFATE - FOR SA ONLY 330 MG/7.5 ML UDC GT SCH ×3 (09:03→16:51)
[2017-05-05] MEDS: PROSOURCE / PROSTAT (PYXIS) 30 ML UDC GT SCH ×2 (09:04→16:51)
[2017-05-05] MEDS: HEPARIN SODIUM, PORCINE 5000 UNITS/1 ML VIAL SQ SCH ×2 (09:04→20:46)
[2017-05-05] MEDS: ASCORBIC ACID 500 MG TABLET GT SCH ×2 (09:04→16:51)
[2017-05-05] MEDS: Z GUARD REMEDY 4 OZ OINT TP SCH ×2 (09:11→20:46)
[2017-05-05] MEDS: CLOTRIMAZOLE 1% 15 GM TUBE TP SCH ×2 (09:11→20:46)
[2017-05-05] MEDS: HYDROGEN PEROXIDE 480 ML BOTTLE TP SCH ×2 (09:11→20:46)
[2017-05-05 20:19] VITALS: BP 98/63
[2017-05-05] MEDS: MULTIVIT, IRON, MIN NO. 8, FA 1 TAB GT SCH (20:45)
[2017-05-05] MEDS: SENNOSIDES 8.6 MG TABLET GT SCH (21:36)
[2017-05-05] MEDS: INSULIN DETEMIR 100 UNIT/ML CARTRIDGE SQ SCH (21:37)
[2017-05-06] MEDS: POLYVINYL ALCOHOL 15 ML BOTTLE EACHEYE SCH ×2 (00:20→23:11)
[2017-05-06] MEDS: IPRATROPIUM NEB FS 0.5 MG/2.5 ML AMPUL.NEB NEB SCH ×3 (01:05→20:27)
[2017-05-06] MEDS: ALBUTEROL FS 2.5 MG/3 ML VIAL.NEB NEB SCH ×3 (01:05→20:27)
[2017-05-06 08:00] VITALS: BP 113/67
[2017-05-06] MEDS: HYDROGEN PEROXIDE 480 ML BOTTLE TP SCH ×2 (09:00→20:34)
[2017-05-06] MEDS: ASCORBIC ACID 500 MG TABLET GT SCH ×2 (09:00→16:59)
[2017-05-06] MEDS: PROSOURCE / PROSTAT (PYXIS) 30 ML UDC GT SCH ×2 (09:00→17:05)
[2017-05-06] MEDS: GLYCOPYRROLATE 1 MG TABLET GT SCH ×2 (09:00→16:59)
[2017-05-06] MEDS: CLOTRIMAZOLE 1% 15 GM TUBE TP SCH (09:00)
[2017-05-06] MEDS: POTASSIUM CHLORIDE 20 MEQ POWDER PACKET GT SCH (09:00)
[2017-05-06] MEDS: DOCUSATE SODIUM LIQ 100 MG/10 ML UDC GT SCH ×2 (09:00→16:59)
[2017-05-06] MEDS: FERROUS SULFATE - FOR SA ONLY 330 MG/7.5 ML UDC GT SCH ×3 (09:00→17:05)
[2017-05-06] MEDS: LEVETIRACETAM SOL (5 ML) 100 MG/ML UDC GT SCH ×2 (09:00→20:34)
[2017-05-06] MEDS: Z GUARD REMEDY 4 OZ OINT TP SCH ×2 (09:00→20:34)
[2017-05-06] MEDS: BACLOFEN (10 MG) 10 MG TABLET GT SCH ×3 (09:00→17:05)
[2017-05-06] MEDS: HEPARIN SODIUM, PORCINE 5000 UNITS/1 ML VIAL SQ SCH ×2 (09:00→20:34)
--- NOTE | 2017-05-06 09:00 | NUR ---
Seen and examined by Dr. Bullard, new order given.
[2017-05-06] MEDS: BLOOD SUGAR DIAGNOSTIC 1 EACH STRIP IN SCH (17:06)
[2017-05-06] MEDS: MULTIVIT, IRON, MIN NO. 8, FA 1 TAB GT SCH (20:34)
[2017-05-06] MEDS: SENNOSIDES 8.6 MG TABLET GT SCH (21:22)
[2017-05-06] MEDS: INSULIN DETEMIR 100 UNIT/ML CARTRIDGE SQ SCH (21:22)
[2017-05-06 22:04] VITALS: BP 98/59
[2017-05-07] MEDS: ALBUTEROL FS 2.5 MG/3 ML VIAL.NEB NEB SCH ×4 (01:35→19:49)
[2017-05-07] MEDS: IPRATROPIUM NEB FS 0.5 MG/2.5 ML AMPUL.NEB NEB SCH ×4 (01:35→19:49)
[2017-05-07] MEDS: GLYTROL 1,000 ML BAG GT PRN (05:13)
[2017-05-07] MEDS: BLOOD SUGAR DIAGNOSTIC 1 EACH STRIP IN SCH ×2 (05:13→18:16)
[2017-05-07] MEDS: POLYVINYL ALCOHOL 15 ML BOTTLE EACHEYE SCH ×3 (05:13→17:11)
[2017-05-07] MEDS: INSULIN LISPRO/ASPART 100 UNIT/ML CARTRIDGE SQ PRN ×2 (05:13→18:17)
[2017-05-07] MEDS: PANTOPRAZOLE 40 MG/PACK PACK GT SCH (05:13)
[2017-05-07 07:56] VITALS: BP 107/70
[2017-05-07] MEDS: LEVETIRACETAM SOL (5 ML) 100 MG/ML UDC GT SCH ×2 (08:54→20:58)
[2017-05-07] MEDS: BACLOFEN (10 MG) 10 MG TABLET GT SCH ×3 (08:54→17:11)
[2017-05-07] MEDS: ASCORBIC ACID 500 MG TABLET GT SCH ×2 (08:54→17:11)
[2017-05-07] MEDS: POTASSIUM CHLORIDE 20 MEQ POWDER PACKET GT SCH (08:54)
[2017-05-07] MEDS: FERROUS SULFATE - FOR SA ONLY 330 MG/7.5 ML UDC GT SCH ×3 (08:54→17:11)
[2017-05-07] MEDS: PROSOURCE / PROSTAT (PYXIS) 30 ML UDC GT SCH ×2 (08:54→17:11)
[2017-05-07] MEDS: DOCUSATE SODIUM LIQ 100 MG/10 ML UDC GT SCH ×2 (08:54→17:11)
[2017-05-07] MEDS: GLYCOPYRROLATE 1 MG TABLET GT SCH ×2 (08:54→17:11)
[2017-05-07] MEDS: HEPARIN SODIUM, PORCINE 5000 UNITS/1 ML VIAL SQ SCH ×2 (08:55→20:58)
[2017-05-07] MEDS: Z GUARD REMEDY 4 OZ OINT TP SCH ×2 (09:00→20:58)
[2017-05-07] MEDS: HYDROGEN PEROXIDE 480 ML BOTTLE TP SCH ×2 (09:00→20:58)
[2017-05-07 15:20] VITALS: BP_SYST 74
[2017-05-07 20:12] VITALS: BP 110/78
[2017-05-07] MEDS: MULTIVIT, IRON, MIN NO. 8, FA 1 TAB GT SCH (20:58)
[2017-05-07] MEDS: SENNOSIDES 8.6 MG TABLET GT SCH (21:00)
[2017-05-07] MEDS: INSULIN DETEMIR 100 UNIT/ML CARTRIDGE SQ SCH (21:01)
[2017-05-08] MEDS: POLYVINYL ALCOHOL 15 ML BOTTLE EACHEYE SCH ×5 (00:05→23:42)
[2017-05-08] MEDS: IPRATROPIUM NEB FS 0.5 MG/2.5 ML AMPUL.NEB NEB SCH ×4 (01:20→20:21)
[2017-05-08] MEDS: ALBUTEROL FS 2.5 MG/3 ML VIAL.NEB NEB SCH ×4 (01:20→20:21)
[2017-05-08] MEDS: BLOOD SUGAR DIAGNOSTIC 1 EACH STRIP IN SCH ×2 (05:26→18:16)
[2017-05-08] MEDS: PANTOPRAZOLE 40 MG/PACK PACK GT SCH (05:26)
[2017-05-08] MEDS: INSULIN LISPRO/ASPART 100 UNIT/ML CARTRIDGE SQ PRN ×2 (05:27→18:17)
[2017-05-08] MEDS: GLYTROL 1,000 ML BAG GT PRN (05:27)
[2017-05-08] MEDS: PROSOURCE / PROSTAT (PYXIS) 30 ML UDC GT SCH ×2 (09:00→17:11)
[2017-05-08] MEDS: ASCORBIC ACID 500 MG TABLET GT SCH ×2 (09:00→17:11)
[2017-05-08] MEDS: POTASSIUM CHLORIDE 20 MEQ POWDER PACKET GT SCH (09:00)
[2017-05-08] MEDS: LEVETIRACETAM SOL (5 ML) 100 MG/ML UDC GT SCH ×2 (09:00→21:35)
[2017-05-08] MEDS: DOCUSATE SODIUM LIQ 100 MG/10 ML UDC GT SCH ×2 (09:00→17:11)
[2017-05-08] MEDS: HYDROGEN PEROXIDE 480 ML BOTTLE TP SCH ×2 (09:00→21:36)
[2017-05-08] MEDS: HEPARIN SODIUM, PORCINE 5000 UNITS/1 ML VIAL SQ SCH ×2 (09:00→21:36)
[2017-05-08] MEDS: BACLOFEN (10 MG) 10 MG TABLET GT SCH ×3 (09:00→17:11)
[2017-05-08] MEDS: Z GUARD REMEDY 4 OZ OINT TP SCH ×2 (09:00→21:36)
[2017-05-08] MEDS: GLYCOPYRROLATE 1 MG TABLET GT SCH ×2 (09:00→17:11)
[2017-05-08] MEDS: FERROUS SULFATE - FOR SA ONLY 330 MG/7.5 ML UDC GT SCH ×3 (09:00→17:11)
[2017-05-08 14:10] VITALS: BP 95/60
[2017-05-08 19:44] VITALS: BP 107/71
[2017-05-08] MEDS: MULTIVIT, IRON, MIN NO. 8, FA 1 TAB GT SCH (21:35)
[2017-05-08] MEDS: SENNOSIDES 8.6 MG TABLET GT SCH (21:36)
[2017-05-08] MEDS: INSULIN DETEMIR 100 UNIT/ML CARTRIDGE SQ SCH (21:37)
[2017-05-09] MEDS: ALBUTEROL FS 2.5 MG/3 ML VIAL.NEB NEB SCH ×4 (02:21→20:16)
[2017-05-09] MEDS: IPRATROPIUM NEB FS 0.5 MG/2.5 ML AMPUL.NEB NEB SCH ×4 (02:21→20:16)
[2017-05-09] MEDS: GLYTROL 1,000 ML BAG GT PRN (06:15)
[2017-05-09] MEDS: PANTOPRAZOLE 40 MG/PACK PACK GT SCH (06:20)
[2017-05-09] MEDS: INSULIN LISPRO/ASPART 100 UNIT/ML CARTRIDGE SQ PRN ×2 (06:20→18:25)
[2017-05-09] MEDS: POLYVINYL ALCOHOL 15 ML BOTTLE EACHEYE SCH ×3 (06:20→17:27)
[2017-05-09] MEDS: BLOOD SUGAR DIAGNOSTIC 1 EACH STRIP IN SCH ×2 (06:20→18:24)
[2017-05-09] MEDS: GLYCOPYRROLATE 1 MG TABLET GT SCH ×2 (08:06→17:27)
[2017-05-09] MEDS: BACLOFEN (10 MG) 10 MG TABLET GT SCH ×3 (08:06→17:27)
[2017-05-09] MEDS: POTASSIUM CHLORIDE 20 MEQ POWDER PACKET GT SCH (08:06)
[2017-05-09] MEDS: FERROUS SULFATE - FOR SA ONLY 330 MG/7.5 ML UDC GT SCH ×3 (08:06→17:27)
[2017-05-09] MEDS: HEPARIN SODIUM, PORCINE 5000 UNITS/1 ML VIAL SQ SCH ×2 (08:06→21:24)
[2017-05-09] MEDS: ASCORBIC ACID 500 MG TABLET GT SCH ×2 (08:06→17:27)
[2017-05-09] MEDS: PROSOURCE / PROSTAT (PYXIS) 30 ML UDC GT SCH ×2 (08:06→17:27)
[2017-05-09] MEDS: LEVETIRACETAM SOL (5 ML) 100 MG/ML UDC GT SCH ×2 (08:06→21:24)
[2017-05-09] MEDS: DOCUSATE SODIUM LIQ 100 MG/10 ML UDC GT SCH ×2 (08:06→17:27)
[2017-05-09] MEDS: HYDROGEN PEROXIDE 480 ML BOTTLE TP SCH ×2 (08:07→21:24)
[2017-05-09] MEDS: Z GUARD REMEDY 4 OZ OINT TP SCH ×2 (08:07→21:25)
[2017-05-09 08:20] VITALS: BP 118/68
[2017-05-09 19:55] VITALS: BP 103/66
[2017-05-09] MEDS: MULTIVIT, IRON, MIN NO. 8, FA 1 TAB GT SCH (21:24)
[2017-05-09] MEDS: INSULIN DETEMIR 100 UNIT/ML CARTRIDGE SQ SCH (21:25)
[2017-05-09] MEDS: SENNOSIDES 8.6 MG TABLET GT SCH (21:25)
[2017-05-10] MEDS: POLYVINYL ALCOHOL 15 ML BOTTLE EACHEYE SCH ×4 (00:23→17:42)
[2017-05-10] MEDS: ALBUTEROL FS 2.5 MG/3 ML VIAL.NEB NEB SCH ×4 (01:49→19:10)
[2017-05-10] MEDS: IPRATROPIUM NEB FS 0.5 MG/2.5 ML AMPUL.NEB NEB SCH ×4 (01:49→19:10)
[2017-05-10] MEDS: BLOOD SUGAR DIAGNOSTIC 1 EACH STRIP IN SCH ×2 (05:56→17:42)
[2017-05-10] MEDS: PANTOPRAZOLE 40 MG/PACK PACK GT SCH (05:56)
[2017-05-10 08:13] VITALS: BP 105/54
[2017-05-10] MEDS: DOCUSATE SODIUM LIQ 100 MG/10 ML UDC GT SCH ×2 (08:48→16:19)
[2017-05-10] MEDS: FERROUS SULFATE - FOR SA ONLY 330 MG/7.5 ML UDC GT SCH ×3 (08:48→16:19)
[2017-05-10] MEDS: ASCORBIC ACID 500 MG TABLET GT SCH ×2 (08:48→16:19)
[2017-05-10] MEDS: BACLOFEN (10 MG) 10 MG TABLET GT SCH ×3 (08:48→16:19)
[2017-05-10] MEDS: GLYCOPYRROLATE 1 MG TABLET GT SCH ×2 (08:48→16:19)
[2017-05-10] MEDS: PROSOURCE / PROSTAT (PYXIS) 30 ML UDC GT SCH ×2 (08:48→16:19)
[2017-05-10] MEDS: LEVETIRACETAM SOL (5 ML) 100 MG/ML UDC GT SCH ×2 (08:48→21:31)
[2017-05-10] MEDS: POTASSIUM CHLORIDE 20 MEQ POWDER PACKET GT SCH (08:48)
[2017-05-10] MEDS: HYDROGEN PEROXIDE 480 ML BOTTLE TP SCH ×2 (08:50→21:32)
[2017-05-10] MEDS: Z GUARD REMEDY 4 OZ OINT TP SCH ×2 (08:50→21:38)
[2017-05-10] MEDS: HEPARIN SODIUM, PORCINE 5000 UNITS/1 ML VIAL SQ SCH ×2 (08:50→21:32)
[2017-05-10 19:59] VITALS: BP 99/65
[2017-05-10] MEDS: MULTIVIT, IRON, MIN NO. 8, FA 1 TAB GT SCH (21:31)
[2017-05-10] MEDS: INSULIN DETEMIR 100 UNIT/ML CARTRIDGE SQ SCH (21:38)
[2017-05-10] MEDS: SENNOSIDES 8.6 MG TABLET GT SCH (21:38)
[2017-05-11] MEDS: POLYVINYL ALCOHOL 15 ML BOTTLE EACHEYE SCH ×4 (00:07→18:22)
[2017-05-11] MEDS: ALBUTEROL FS 2.5 MG/3 ML VIAL.NEB NEB SCH ×4 (01:28→20:20)
[2017-05-11] MEDS: IPRATROPIUM NEB FS 0.5 MG/2.5 ML AMPUL.NEB NEB SCH ×4 (01:28→20:20)
[2017-05-11] MEDS: PANTOPRAZOLE 40 MG/PACK PACK GT SCH (05:27)
[2017-05-11] MEDS: BLOOD SUGAR DIAGNOSTIC 1 EACH STRIP IN SCH ×2 (05:27→17:47)
[2017-05-11] MEDS: INSULIN LISPRO/ASPART 100 UNIT/ML CARTRIDGE SQ PRN ×2 (05:28→17:50)
[2017-05-11 07:49] VITALS: BP 120/71
[2017-05-11] MEDS: LEVETIRACETAM SOL (5 ML) 100 MG/ML UDC GT SCH ×2 (08:06→21:03)
[2017-05-11] MEDS: PROSOURCE / PROSTAT (PYXIS) 30 ML UDC GT SCH ×2 (08:06→17:00)
[2017-05-11] MEDS: POTASSIUM CHLORIDE 20 MEQ POWDER PACKET GT SCH (08:06)
[2017-05-11] MEDS: FERROUS SULFATE - FOR SA ONLY 330 MG/7.5 ML UDC GT SCH ×3 (08:06→17:00)
[2017-05-11] MEDS: GLYCOPYRROLATE 1 MG TABLET GT SCH ×2 (08:06→17:00)
[2017-05-11] MEDS: DOCUSATE SODIUM LIQ 100 MG/10 ML UDC GT SCH ×2 (08:06→17:00)
[2017-05-11] MEDS: BACLOFEN (10 MG) 10 MG TABLET GT SCH ×3 (08:06→17:00)
[2017-05-11] MEDS: ASCORBIC ACID 500 MG TABLET GT SCH ×2 (08:07→17:00)
[2017-05-11] MEDS: HEPARIN SODIUM, PORCINE 5000 UNITS/1 ML VIAL SQ SCH ×2 (08:09→21:05)
[2017-05-11] MEDS: HYDROGEN PEROXIDE 480 ML BOTTLE TP SCH ×2 (09:00→21:05)
[2017-05-11] MEDS: Z GUARD REMEDY 4 OZ OINT TP SCH ×2 (09:00→21:05)
[2017-05-11] MEDS: MULTIVIT, IRON, MIN NO. 8, FA 1 TAB GT SCH (21:03)
[2017-05-11] MEDS: SENNOSIDES 8.6 MG TABLET GT SCH (21:05)
[2017-05-11 21:18] VITALS: BP 112/69
[2017-05-11] MEDS: INSULIN DETEMIR 100 UNIT/ML CARTRIDGE SQ SCH (22:33)
[2017-05-12] MEDS: POLYVINYL ALCOHOL 15 ML BOTTLE EACHEYE SCH ×5 (00:24→23:59)
[2017-05-12] MEDS: ALBUTEROL FS 2.5 MG/3 ML VIAL.NEB NEB SCH ×4 (00:55→19:48)
[2017-05-12] MEDS: IPRATROPIUM NEB FS 0.5 MG/2.5 ML AMPUL.NEB NEB SCH ×4 (00:55→19:48)
[2017-05-12] MEDS: BLOOD SUGAR DIAGNOSTIC 1 EACH STRIP IN SCH ×2 (05:51→17:04)
[2017-05-12] MEDS: PANTOPRAZOLE 40 MG/PACK PACK GT SCH (05:51)
[2017-05-12] MEDS: INSULIN LISPRO/ASPART 100 UNIT/ML CARTRIDGE SQ PRN ×2 (05:52→17:58)
[2017-05-12] MEDS: GLYTROL 1,000 ML BAG GT PRN (05:52)
[2017-05-12 07:51] VITALS: BP 119/67
[2017-05-12] MEDS: POTASSIUM CHLORIDE 20 MEQ POWDER PACKET GT SCH (09:18)
[2017-05-12] MEDS: DOCUSATE SODIUM LIQ 100 MG/10 ML UDC GT SCH ×2 (09:18→17:03)
[2017-05-12] MEDS: PROSOURCE / PROSTAT (PYXIS) 30 ML UDC GT SCH ×2 (09:18→17:03)
[2017-05-12] MEDS: BACLOFEN (10 MG) 10 MG TABLET GT SCH ×3 (09:18→17:03)
[2017-05-12] MEDS: GLYCOPYRROLATE 1 MG TABLET GT SCH ×2 (09:18→17:03)
[2017-05-12] MEDS: FERROUS SULFATE - FOR SA ONLY 330 MG/7.5 ML UDC GT SCH ×3 (09:18→17:03)
[2017-05-12] MEDS: LEVETIRACETAM SOL (5 ML) 100 MG/ML UDC GT SCH ×2 (09:18→21:31)
[2017-05-12] MEDS: HEPARIN SODIUM, PORCINE 5000 UNITS/1 ML VIAL SQ SCH ×2 (09:19→21:31)
[2017-05-12] MEDS: ASCORBIC ACID 500 MG TABLET GT SCH ×2 (09:19→17:03)
[2017-05-12] MEDS: HYDROGEN PEROXIDE 480 ML BOTTLE TP SCH ×2 (09:20→21:31)
[2017-05-12] MEDS: Z GUARD REMEDY 4 OZ OINT TP SCH ×2 (09:20→21:31)
[2017-05-12 19:40] VITALS: BP 110/75
[2017-05-12] MEDS: MULTIVIT, IRON, MIN NO. 8, FA 1 TAB GT SCH (21:31)
[2017-05-12] MEDS: SENNOSIDES 8.6 MG TABLET GT SCH (21:31)
[2017-05-12] MEDS: INSULIN DETEMIR 100 UNIT/ML CARTRIDGE SQ SCH (21:32)
[2017-05-13] MEDS: ALBUTEROL FS 2.5 MG/3 ML VIAL.NEB NEB SCH ×4 (01:56→20:24)
[2017-05-13] MEDS: IPRATROPIUM NEB FS 0.5 MG/2.5 ML AMPUL.NEB NEB SCH ×4 (01:56→20:24)
[2017-05-13] MEDS: PANTOPRAZOLE 40 MG/PACK PACK GT SCH (05:27)
[2017-05-13] MEDS: BLOOD SUGAR DIAGNOSTIC 1 EACH STRIP IN SCH ×2 (05:27→17:23)
[2017-05-13] MEDS: POLYVINYL ALCOHOL 15 ML BOTTLE EACHEYE SCH ×3 (05:27→17:23)
[2017-05-13] MEDS: INSULIN LISPRO/ASPART 100 UNIT/ML CARTRIDGE SQ PRN (05:28)
[2017-05-13] MEDS: GLYTROL 1,000 ML BAG GT PRN (05:28)
[2017-05-13 07:37] VITALS: BP 118/83
[2017-05-13] MEDS: GLYCOPYRROLATE 1 MG TABLET GT SCH ×2 (09:58→17:20)
[2017-05-13] MEDS: LEVETIRACETAM SOL (5 ML) 100 MG/ML UDC GT SCH ×2 (09:58→21:40)
[2017-05-13] MEDS: DOCUSATE SODIUM LIQ 100 MG/10 ML UDC GT SCH ×2 (09:58→17:20)
[2017-05-13] MEDS: FERROUS SULFATE - FOR SA ONLY 330 MG/7.5 ML UDC GT SCH ×3 (09:58→17:20)
[2017-05-13] MEDS: POTASSIUM CHLORIDE 20 MEQ POWDER PACKET GT SCH (09:58)
[2017-05-13] MEDS: ASCORBIC ACID 500 MG TABLET GT SCH ×2 (09:59→17:20)
[2017-05-13] MEDS: Z GUARD REMEDY 4 OZ OINT TP SCH ×2 (09:59→21:41)
[2017-05-13] MEDS: PROSOURCE / PROSTAT (PYXIS) 30 ML UDC GT SCH ×2 (09:59→17:20)
[2017-05-13] MEDS: HEPARIN SODIUM, PORCINE 5000 UNITS/1 ML VIAL SQ SCH ×2 (09:59→21:41)
[2017-05-13] MEDS: BACLOFEN (10 MG) 10 MG TABLET GT SCH ×3 (09:59→17:20)
[2017-05-13] MEDS: HYDROGEN PEROXIDE 480 ML BOTTLE TP SCH ×2 (09:59→21:41)
[2017-05-13 19:44] VITALS: BP 109/74
[2017-05-13] MEDS: MULTIVIT, IRON, MIN NO. 8, FA 1 TAB GT SCH (21:41)
[2017-05-13] MEDS: SENNOSIDES 8.6 MG TABLET GT SCH (21:41)
[2017-05-13] MEDS: INSULIN DETEMIR 100 UNIT/ML CARTRIDGE SQ SCH (21:42)
[2017-05-14] MEDS: POLYVINYL ALCOHOL 15 ML BOTTLE EACHEYE SCH ×4 (00:29→17:58)
[2017-05-14] MEDS: IPRATROPIUM NEB FS 0.5 MG/2.5 ML AMPUL.NEB NEB SCH ×4 (01:30→20:20)
[2017-05-14] MEDS: ALBUTEROL FS 2.5 MG/3 ML VIAL.NEB NEB SCH ×4 (01:30→20:20)
[2017-05-14] MEDS: PANTOPRAZOLE 40 MG/PACK PACK GT SCH (05:15)
[2017-05-14] MEDS: BLOOD SUGAR DIAGNOSTIC 1 EACH STRIP IN SCH ×2 (05:15→17:58)
[2017-05-14] MEDS: INSULIN LISPRO/ASPART 100 UNIT/ML CARTRIDGE SQ PRN ×2 (05:15→17:59)
[2017-05-14] MEDS: GLYTROL 1,000 ML BAG GT PRN (05:28)
[2017-05-14] MEDS: POLYETHYLENE GLYCOL 3350 17 GM POWD.PACK GT PRN (07:07)
[2017-05-14 07:35] VITALS: BP 102/71
[2017-05-14] MEDS: PROSOURCE / PROSTAT (PYXIS) 30 ML UDC GT SCH ×2 (09:55→17:58)
[2017-05-14] MEDS: HEPARIN SODIUM, PORCINE 5000 UNITS/1 ML VIAL SQ SCH ×2 (09:55→21:47)
[2017-05-14] MEDS: LEVETIRACETAM SOL (5 ML) 100 MG/ML UDC GT SCH ×2 (09:55→21:46)
[2017-05-14] MEDS: FERROUS SULFATE - FOR SA ONLY 330 MG/7.5 ML UDC GT SCH ×3 (09:55→17:58)
[2017-05-14] MEDS: GLYCOPYRROLATE 1 MG TABLET GT SCH ×2 (09:55→17:58)
[2017-05-14] MEDS: POTASSIUM CHLORIDE 20 MEQ POWDER PACKET GT SCH (09:55)
[2017-05-14] MEDS: HYDROGEN PEROXIDE 480 ML BOTTLE TP SCH ×2 (09:55→21:47)
[2017-05-14] MEDS: ASCORBIC ACID 500 MG TABLET GT SCH ×2 (09:55→17:58)
[2017-05-14] MEDS: Z GUARD REMEDY 4 OZ OINT TP SCH ×2 (09:55→21:47)
[2017-05-14] MEDS: DOCUSATE SODIUM LIQ 100 MG/10 ML UDC GT SCH ×2 (09:55→17:58)
[2017-05-14] MEDS: BACLOFEN (10 MG) 10 MG TABLET GT SCH ×3 (09:55→17:58)
[2017-05-14 19:34] VITALS: BP 99/62
[2017-05-14] MEDS: MULTIVIT, IRON, MIN NO. 8, FA 1 TAB GT SCH (21:46)
[2017-05-14] MEDS: SENNOSIDES 8.6 MG TABLET GT SCH (21:47)
[2017-05-14] MEDS: INSULIN DETEMIR 100 UNIT/ML CARTRIDGE SQ SCH (22:08)
[2017-05-15] MEDS: POLYVINYL ALCOHOL 15 ML BOTTLE EACHEYE SCH ×5 (00:25→23:27)
[2017-05-15] MEDS: ALBUTEROL FS 2.5 MG/3 ML VIAL.NEB NEB SCH ×4 (01:12→19:40)
[2017-05-15] MEDS: IPRATROPIUM NEB FS 0.5 MG/2.5 ML AMPUL.NEB NEB SCH ×4 (01:12→19:40)
[2017-05-15] MEDS: BLOOD SUGAR DIAGNOSTIC 1 EACH STRIP IN SCH ×2 (05:07→17:53)
[2017-05-15] MEDS: PANTOPRAZOLE 40 MG/PACK PACK GT SCH (05:07)
[2017-05-15] MEDS: INSULIN LISPRO/ASPART 100 UNIT/ML CARTRIDGE SQ PRN (05:07)
[2017-05-15] MEDS: GLYTROL 1,000 ML BAG GT PRN (05:15)
[2017-05-15] MEDS: BISACODYL SUPP (10 MG) 10 MG/SUPP.RECT SUPP.RECT RC PRN (06:55)
[2017-05-15 07:28] VITALS: BP 96/66
[2017-05-15] MEDS: LEVETIRACETAM SOL (5 ML) 100 MG/ML UDC GT SCH ×2 (09:48→20:13)
[2017-05-15] MEDS: DOCUSATE SODIUM LIQ 100 MG/10 ML UDC GT SCH ×2 (09:48→16:49)
[2017-05-15] MEDS: BACLOFEN (10 MG) 10 MG TABLET GT SCH ×3 (09:48→16:49)
[2017-05-15] MEDS: FERROUS SULFATE - FOR SA ONLY 330 MG/7.5 ML UDC GT SCH ×3 (09:48→16:49)
[2017-05-15] MEDS: GLYCOPYRROLATE 1 MG TABLET GT SCH ×2 (09:48→16:49)
[2017-05-15] MEDS: POTASSIUM CHLORIDE 20 MEQ POWDER PACKET GT SCH (09:48)
[2017-05-15] MEDS: PROSOURCE / PROSTAT (PYXIS) 30 ML UDC GT SCH ×2 (09:48→16:49)
[2017-05-15] MEDS: ASCORBIC ACID 500 MG TABLET GT SCH ×2 (09:48→16:49)
[2017-05-15] MEDS: HYDROGEN PEROXIDE 480 ML BOTTLE TP SCH ×2 (09:50→20:13)
[2017-05-15] MEDS: HEPARIN SODIUM, PORCINE 5000 UNITS/1 ML VIAL SQ SCH ×2 (09:50→20:13)
[2017-05-15] MEDS: Z GUARD REMEDY 4 OZ OINT TP SCH ×2 (09:50→20:14)
[2017-05-15 19:25] VITALS: BP 114/65
[2017-05-15] MEDS: MULTIVIT, IRON, MIN NO. 8, FA 1 TAB GT SCH (20:13)
[2017-05-15] MEDS: SENNOSIDES 8.6 MG TABLET GT SCH (21:15)
[2017-05-15] MEDS: INSULIN DETEMIR 100 UNIT/ML CARTRIDGE SQ SCH (21:15)
[2017-05-16] MEDS: ALBUTEROL FS 2.5 MG/3 ML VIAL.NEB NEB SCH ×4 (01:57→19:20)
[2017-05-16] MEDS: IPRATROPIUM NEB FS 0.5 MG/2.5 ML AMPUL.NEB NEB SCH ×4 (01:57→19:20)
[2017-05-16] MEDS: PANTOPRAZOLE 40 MG/PACK PACK GT SCH (05:12)
[2017-05-16] MEDS: POLYVINYL ALCOHOL 15 ML BOTTLE EACHEYE SCH ×4 (05:12→23:49)
[2017-05-16] MEDS: BLOOD SUGAR DIAGNOSTIC 1 EACH STRIP IN SCH ×2 (05:38→17:34)
[2017-05-16] MEDS: GLYTROL 1,000 ML BAG GT PRN (05:50)
[2017-05-16 07:55] VITALS: BP 92/61
[2017-05-16] MEDS: Z GUARD REMEDY 4 OZ OINT TP SCH ×2 (09:00→20:20)
[2017-05-16] MEDS: HYDROGEN PEROXIDE 480 ML BOTTLE TP SCH ×2 (09:00→20:20)
[2017-05-16] MEDS: DOCUSATE SODIUM LIQ 100 MG/10 ML UDC GT SCH ×2 (09:07→17:34)
[2017-05-16] MEDS: PROSOURCE / PROSTAT (PYXIS) 30 ML UDC GT SCH ×2 (09:08→17:34)
[2017-05-16] MEDS: POTASSIUM CHLORIDE 20 MEQ POWDER PACKET GT SCH (09:08)
[2017-05-16] MEDS: GLYCOPYRROLATE 1 MG TABLET GT SCH ×2 (09:08→17:34)
[2017-05-16] MEDS: BACLOFEN (10 MG) 10 MG TABLET GT SCH ×3 (09:08→17:34)
[2017-05-16] MEDS: FERROUS SULFATE - FOR SA ONLY 330 MG/7.5 ML UDC GT SCH ×3 (09:08→17:34)
[2017-05-16] MEDS: ASCORBIC ACID 500 MG TABLET GT SCH ×2 (09:08→17:34)
[2017-05-16] MEDS: LEVETIRACETAM SOL (5 ML) 100 MG/ML UDC GT SCH ×2 (09:08→20:20)
[2017-05-16] MEDS: HEPARIN SODIUM, PORCINE 5000 UNITS/1 ML VIAL SQ SCH ×2 (09:09→20:20)
[2017-05-16] MEDS: INSULIN LISPRO/ASPART 100 UNIT/ML CARTRIDGE SQ PRN (17:36)
[2017-05-16 19:51] VITALS: BP 100/61
[2017-05-16] MEDS: MULTIVIT, IRON, MIN NO. 8, FA 1 TAB GT SCH (20:20)
[2017-05-16] MEDS: INSULIN DETEMIR 100 UNIT/ML CARTRIDGE SQ SCH (21:27)
[2017-05-16] MEDS: SENNOSIDES 8.6 MG TABLET GT SCH (21:27)
[2017-05-17] MEDS: ALBUTEROL FS 2.5 MG/3 ML VIAL.NEB NEB SCH ×4 (01:37→19:30)
[2017-05-17] MEDS: IPRATROPIUM NEB FS 0.5 MG/2.5 ML AMPUL.NEB NEB SCH ×4 (01:37→19:30)
[2017-05-17] MEDS: PANTOPRAZOLE 40 MG/PACK PACK GT SCH (05:11)
[2017-05-17] MEDS: POLYVINYL ALCOHOL 15 ML BOTTLE EACHEYE SCH ×4 (05:11→23:15)
[2017-05-17] MEDS: BLOOD SUGAR DIAGNOSTIC 1 EACH STRIP IN SCH ×2 (06:01→18:08)
[2017-05-17] MEDS: GLYTROL 1,000 ML BAG GT PRN (06:03)
[2017-05-17 08:24] VITALS: BP 94/65
[2017-05-17] MEDS: PROSOURCE / PROSTAT (PYXIS) 30 ML UDC GT SCH ×2 (09:00→17:45)
[2017-05-17] MEDS: HEPARIN SODIUM, PORCINE 5000 UNITS/1 ML VIAL SQ SCH ×2 (09:00→20:54)
[2017-05-17] MEDS: BACLOFEN (10 MG) 10 MG TABLET GT SCH ×3 (09:00→17:45)
[2017-05-17] MEDS: ASCORBIC ACID 500 MG TABLET GT SCH ×2 (09:00→17:45)
[2017-05-17] MEDS: Z GUARD REMEDY 4 OZ OINT TP SCH ×2 (09:00→20:54)
[2017-05-17] MEDS: HYDROGEN PEROXIDE 480 ML BOTTLE TP SCH ×2 (09:00→20:54)
[2017-05-17] MEDS: FERROUS SULFATE - FOR SA ONLY 330 MG/7.5 ML UDC GT SCH ×3 (09:00→17:45)
[2017-05-17] MEDS: DOCUSATE SODIUM LIQ 100 MG/10 ML UDC GT SCH ×2 (09:00→17:45)
[2017-05-17] MEDS: GLYCOPYRROLATE 1 MG TABLET GT SCH ×2 (09:00→17:45)
[2017-05-17] MEDS: POTASSIUM CHLORIDE 20 MEQ POWDER PACKET GT SCH (09:00)
[2017-05-17] MEDS: LEVETIRACETAM SOL (5 ML) 100 MG/ML UDC GT SCH ×2 (09:00→20:54)
[2017-05-17] MEDS: INSULIN LISPRO/ASPART 100 UNIT/ML CARTRIDGE SQ PRN (18:09)
[2017-05-17 19:28] VITALS: BP 101/55
[2017-05-17] MEDS: MULTIVIT, IRON, MIN NO. 8, FA 1 TAB GT SCH (20:54)
[2017-05-17] MEDS: SENNOSIDES 8.6 MG TABLET GT SCH (21:29)
[2017-05-17] MEDS: INSULIN DETEMIR 100 UNIT/ML CARTRIDGE SQ SCH (21:30)
[2017-05-18] MEDS: ALBUTEROL FS 2.5 MG/3 ML VIAL.NEB NEB SCH ×4 (01:45→20:04)
[2017-05-18] MEDS: IPRATROPIUM NEB FS 0.5 MG/2.5 ML AMPUL.NEB NEB SCH ×4 (01:45→20:04)
[2017-05-18] MEDS: PANTOPRAZOLE 40 MG/PACK PACK GT SCH (05:19)
[2017-05-18] MEDS: POLYVINYL ALCOHOL 15 ML BOTTLE EACHEYE SCH ×4 (05:19→23:28)
[2017-05-18] MEDS: BLOOD SUGAR DIAGNOSTIC 1 EACH STRIP IN SCH ×2 (05:50→17:52)
[2017-05-18] MEDS: GLYTROL 1,000 ML BAG GT PRN (05:51)
[2017-05-18 08:14] VITALS: BP 113/68
[2017-05-18] MEDS: DOCUSATE SODIUM LIQ 100 MG/10 ML UDC GT SCH ×2 (08:17→16:35)
[2017-05-18] MEDS: FERROUS SULFATE - FOR SA ONLY 330 MG/7.5 ML UDC GT SCH ×3 (08:17→16:35)
[2017-05-18] MEDS: POTASSIUM CHLORIDE 20 MEQ POWDER PACKET GT SCH (08:17)
[2017-05-18] MEDS: LEVETIRACETAM SOL (5 ML) 100 MG/ML UDC GT SCH ×2 (08:17→20:20)
[2017-05-18] MEDS: HEPARIN SODIUM, PORCINE 5000 UNITS/1 ML VIAL SQ SCH ×2 (08:17→20:21)
[2017-05-18] MEDS: BACLOFEN (10 MG) 10 MG TABLET GT SCH ×3 (08:17→16:35)
[2017-05-18] MEDS: GLYCOPYRROLATE 1 MG TABLET GT SCH ×2 (08:17→16:35)
[2017-05-18] MEDS: PROSOURCE / PROSTAT (PYXIS) 30 ML UDC GT SCH ×2 (08:17→16:35)
[2017-05-18] MEDS: ASCORBIC ACID 500 MG TABLET GT SCH ×2 (08:17→16:36)
[2017-05-18] MEDS: HYDROGEN PEROXIDE 480 ML BOTTLE TP SCH ×2 (09:00→20:21)
[2017-05-18] MEDS: Z GUARD REMEDY 4 OZ OINT TP SCH ×2 (09:00→20:21)
[2017-05-18] MEDS: MULTIVIT, IRON, MIN NO. 8, FA 1 TAB GT SCH (20:20)
[2017-05-18] MEDS: SENNOSIDES 8.6 MG TABLET GT SCH (21:29)
[2017-05-18] MEDS: INSULIN DETEMIR 100 UNIT/ML CARTRIDGE SQ SCH (21:30)
[2017-05-19] MEDS: ALBUTEROL FS 2.5 MG/3 ML VIAL.NEB NEB SCH ×4 (02:06→19:23)
[2017-05-19] MEDS: IPRATROPIUM NEB FS 0.5 MG/2.5 ML AMPUL.NEB NEB SCH ×4 (02:06→19:23)
[2017-05-19] MEDS: PANTOPRAZOLE 40 MG/PACK PACK GT SCH (05:25)
[2017-05-19] MEDS: POLYVINYL ALCOHOL 15 ML BOTTLE EACHEYE SCH ×3 (05:25→17:13)
[2017-05-19] MEDS: BLOOD SUGAR DIAGNOSTIC 1 EACH STRIP IN SCH ×2 (05:58→17:13)
[2017-05-19 07:23] VITALS: BP 123/76
[2017-05-19] MEDS: GLYCOPYRROLATE 1 MG TABLET GT SCH ×2 (08:39→17:13)
[2017-05-19] MEDS: ASCORBIC ACID 500 MG TABLET GT SCH ×2 (08:39→17:13)
[2017-05-19] MEDS: BACLOFEN (10 MG) 10 MG TABLET GT SCH ×3 (08:39→17:13)
[2017-05-19] MEDS: POTASSIUM CHLORIDE 20 MEQ POWDER PACKET GT SCH (08:39)
[2017-05-19] MEDS: DOCUSATE SODIUM LIQ 100 MG/10 ML UDC GT SCH ×2 (08:39→17:13)
[2017-05-19] MEDS: FERROUS SULFATE - FOR SA ONLY 330 MG/7.5 ML UDC GT SCH ×3 (08:39→17:13)
[2017-05-19] MEDS: PROSOURCE / PROSTAT (PYXIS) 30 ML UDC GT SCH ×2 (08:39→17:13)
[2017-05-19] MEDS: LEVETIRACETAM SOL (5 ML) 100 MG/ML UDC GT SCH ×2 (08:39→21:18)
[2017-05-19] MEDS: HEPARIN SODIUM, PORCINE 5000 UNITS/1 ML VIAL SQ SCH ×2 (08:42→21:19)
[2017-05-19] MEDS: HYDROGEN PEROXIDE 480 ML BOTTLE TP SCH ×2 (08:43→21:19)
[2017-05-19] MEDS: Z GUARD REMEDY 4 OZ OINT TP SCH ×2 (08:47→21:19)
[2017-05-19] MEDS: BISACODYL SUPP (10 MG) 10 MG/SUPP.RECT SUPP.RECT RC PRN (12:15)
[2017-05-19] MEDS: GLYTROL 1,000 ML BAG GT PRN (17:13)
[2017-05-19] MEDS: MULTIVIT, IRON, MIN NO. 8, FA 1 TAB GT SCH (21:18)
[2017-05-19] MEDS: SENNOSIDES 8.6 MG TABLET GT SCH (21:19)
[2017-05-19] MEDS: INSULIN DETEMIR 100 UNIT/ML CARTRIDGE SQ SCH (21:20)
[2017-05-19 22:09] VITALS: BP 127/76
[2017-05-20] MEDS: POLYVINYL ALCOHOL 15 ML BOTTLE EACHEYE SCH ×5 (00:19→23:08)
[2017-05-20] MEDS: IPRATROPIUM NEB FS 0.5 MG/2.5 ML AMPUL.NEB NEB SCH ×4 (00:35→20:03)
[2017-05-20] MEDS: ALBUTEROL FS 2.5 MG/3 ML VIAL.NEB NEB SCH ×4 (00:35→20:03)
[2017-05-20] MEDS: GLYTROL 1,000 ML BAG GT PRN ×2 (06:12→23:08)
[2017-05-20] MEDS: BLOOD SUGAR DIAGNOSTIC 1 EACH STRIP IN SCH ×2 (06:12→17:06)
[2017-05-20] MEDS: INSULIN LISPRO/ASPART 100 UNIT/ML CARTRIDGE SQ PRN (06:12)
[2017-05-20] MEDS: PANTOPRAZOLE 40 MG/PACK PACK GT SCH (06:12)
[2017-05-20] MEDS: FERROUS SULFATE - FOR SA ONLY 330 MG/7.5 ML UDC GT SCH ×3 (08:13→17:05)
[2017-05-20] MEDS: DOCUSATE SODIUM LIQ 100 MG/10 ML UDC GT SCH ×2 (08:13→17:05)
[2017-05-20] MEDS: HEPARIN SODIUM, PORCINE 5000 UNITS/1 ML VIAL SQ SCH ×2 (08:14→21:25)
[2017-05-20] MEDS: BACLOFEN (10 MG) 10 MG TABLET GT SCH ×3 (08:14→17:05)
[2017-05-20] MEDS: LEVETIRACETAM SOL (5 ML) 100 MG/ML UDC GT SCH ×2 (08:14→21:25)
[2017-05-20] MEDS: PROSOURCE / PROSTAT (PYXIS) 30 ML UDC GT SCH ×2 (08:14→17:05)
[2017-05-20] MEDS: POTASSIUM CHLORIDE 20 MEQ POWDER PACKET GT SCH (08:14)
[2017-05-20] MEDS: GLYCOPYRROLATE 1 MG TABLET GT SCH ×2 (08:14→17:05)
[2017-05-20] MEDS: ASCORBIC ACID 500 MG TABLET GT SCH ×2 (08:14→17:05)
[2017-05-20] MEDS: Z GUARD REMEDY 4 OZ OINT TP SCH ×2 (09:00→21:25)
[2017-05-20] MEDS: HYDROGEN PEROXIDE 480 ML BOTTLE TP SCH ×2 (09:00→21:25)
[2017-05-20] MEDS: MULTIVIT, IRON, MIN NO. 8, FA 1 TAB GT SCH (21:25)
[2017-05-20] MEDS: SENNOSIDES 8.6 MG TABLET GT SCH (21:25)
[2017-05-20] MEDS: INSULIN DETEMIR 100 UNIT/ML CARTRIDGE SQ SCH (21:26)
[2017-05-20 23:08] VITALS: BP 100/70
[2017-05-21] MEDS: ALBUTEROL FS 2.5 MG/3 ML VIAL.NEB NEB SCH ×4 (01:16→20:13)
[2017-05-21] MEDS: IPRATROPIUM NEB FS 0.5 MG/2.5 ML AMPUL.NEB NEB SCH ×4 (01:30→20:13)
[2017-05-21] MEDS: BLOOD SUGAR DIAGNOSTIC 1 EACH STRIP IN SCH ×2 (05:18→17:33)
[2017-05-21] MEDS: PANTOPRAZOLE 40 MG/PACK PACK GT SCH (05:18)
[2017-05-21] MEDS: POLYVINYL ALCOHOL 15 ML BOTTLE EACHEYE SCH ×4 (05:18→23:41)
[2017-05-21 08:22] VITALS: BP 96/63
[2017-05-21] MEDS: Z GUARD REMEDY 4 OZ OINT TP SCH ×2 (09:00→21:03)
[2017-05-21] MEDS: HYDROGEN PEROXIDE 480 ML BOTTLE TP SCH ×2 (09:00→21:03)
[2017-05-21] MEDS: DOCUSATE SODIUM LIQ 100 MG/10 ML UDC GT SCH ×2 (09:02→17:21)
[2017-05-21] MEDS: GLYCOPYRROLATE 1 MG TABLET GT SCH ×2 (09:03→17:17)
[2017-05-21] MEDS: FERROUS SULFATE - FOR SA ONLY 330 MG/7.5 ML UDC GT SCH ×3 (09:03→17:19)
[2017-05-21] MEDS: LEVETIRACETAM SOL (5 ML) 100 MG/ML UDC GT SCH ×2 (09:04→21:03)
[2017-05-21] MEDS: POTASSIUM CHLORIDE 20 MEQ POWDER PACKET GT SCH (09:04)
[2017-05-21] MEDS: BACLOFEN (10 MG) 10 MG TABLET GT SCH ×3 (09:05→17:17)
[2017-05-21] MEDS: PROSOURCE / PROSTAT (PYXIS) 30 ML UDC GT SCH ×2 (09:06→17:17)
[2017-05-21] MEDS: ASCORBIC ACID 500 MG TABLET GT SCH ×2 (09:06→17:18)
[2017-05-21] MEDS: HEPARIN SODIUM, PORCINE 5000 UNITS/1 ML VIAL SQ SCH ×2 (09:08→21:05)
[2017-05-21] MEDS ORDERED: ACETAMINOPHEN 325 MG TABLET PO PRN (09:30)
[2017-05-21] MEDS: INSULIN LISPRO/ASPART 100 UNIT/ML CARTRIDGE SQ PRN (18:20)
[2017-05-21] MEDS: MULTIVIT, IRON, MIN NO. 8, FA 1 TAB GT SCH (21:03)
[2017-05-21] MEDS: SENNOSIDES 8.6 MG TABLET GT SCH (21:03)
[2017-05-21] MEDS: GLYTROL 1,000 ML BAG GT PRN (21:04)
[2017-05-21] MEDS: INSULIN DETEMIR 100 UNIT/ML CARTRIDGE SQ SCH (21:04)
[2017-05-21 22:35] VITALS: BP 107/64
[2017-05-22] MEDS: IPRATROPIUM NEB FS 0.5 MG/2.5 ML AMPUL.NEB NEB SCH ×4 (01:35→20:10)
[2017-05-22] MEDS: ALBUTEROL FS 2.5 MG/3 ML VIAL.NEB NEB SCH ×4 (01:35→20:10)
[2017-05-22] MEDS: BLOOD SUGAR DIAGNOSTIC 1 EACH STRIP IN SCH ×2 (05:13→17:34)
[2017-05-22] MEDS: POLYVINYL ALCOHOL 15 ML BOTTLE EACHEYE SCH ×4 (05:13→23:41)
[2017-05-22] MEDS: PANTOPRAZOLE 40 MG/PACK PACK GT SCH (05:13)
[2017-05-22 07:32] VITALS: BP 115/64
[2017-05-22] MEDS: FERROUS SULFATE - FOR SA ONLY 330 MG/7.5 ML UDC GT SCH ×3 (09:02→16:20)
[2017-05-22] MEDS: LEVETIRACETAM SOL (5 ML) 100 MG/ML UDC GT SCH ×2 (09:02→20:36)
[2017-05-22] MEDS: PROSOURCE / PROSTAT (PYXIS) 30 ML UDC GT SCH ×2 (09:02→16:20)
[2017-05-22] MEDS: Z GUARD REMEDY 4 OZ OINT TP SCH ×2 (09:02→20:36)
[2017-05-22] MEDS: GLYCOPYRROLATE 1 MG TABLET GT SCH ×2 (09:02→16:20)
[2017-05-22] MEDS: ASCORBIC ACID 500 MG TABLET GT SCH ×2 (09:02→16:20)
[2017-05-22] MEDS: DOCUSATE SODIUM LIQ 100 MG/10 ML UDC GT SCH ×2 (09:02→16:20)
[2017-05-22] MEDS: HEPARIN SODIUM, PORCINE 5000 UNITS/1 ML VIAL SQ SCH ×2 (09:02→20:36)
[2017-05-22] MEDS: POTASSIUM CHLORIDE 20 MEQ POWDER PACKET GT SCH (09:02)
[2017-05-22] MEDS: HYDROGEN PEROXIDE 480 ML BOTTLE TP SCH ×2 (09:02→20:36)
[2017-05-22] MEDS: BACLOFEN (10 MG) 10 MG TABLET GT SCH ×3 (09:02→16:20)
[2017-05-22] MEDS: INSULIN LISPRO/ASPART 100 UNIT/ML CARTRIDGE SQ PRN (17:35)
[2017-05-22] MEDS: POLYETHYLENE GLYCOL 3350 17 GM POWD.PACK GT PRN (18:00)
[2017-05-22 20:14] VITALS: BP 100/63
[2017-05-22 20:16] VITALS: BP 100/63
[2017-05-22] MEDS: GLYTROL 1,000 ML BAG GT PRN (20:36)
[2017-05-22] MEDS: MULTIVIT, IRON, MIN NO. 8, FA 1 TAB GT SCH (20:36)
[2017-05-22] MEDS: SENNOSIDES 8.6 MG TABLET GT SCH (21:44)
[2017-05-22] MEDS: INSULIN DETEMIR 100 UNIT/ML CARTRIDGE SQ SCH (21:45)
[2017-05-23] MEDS: ALBUTEROL FS 2.5 MG/3 ML VIAL.NEB NEB SCH ×4 (01:56→20:12)
[2017-05-23] MEDS: IPRATROPIUM NEB FS 0.5 MG/2.5 ML AMPUL.NEB NEB SCH ×4 (01:56→20:12)
[2017-05-23] MEDS: POLYVINYL ALCOHOL 15 ML BOTTLE EACHEYE SCH ×4 (05:46→23:14)
[2017-05-23] MEDS: BLOOD SUGAR DIAGNOSTIC 1 EACH STRIP IN SCH ×2 (05:46→17:56)
[2017-05-23] MEDS: INSULIN LISPRO/ASPART 100 UNIT/ML CARTRIDGE SQ PRN (05:46)
[2017-05-23] MEDS: BISACODYL SUPP (10 MG) 10 MG/SUPP.RECT SUPP.RECT RC PRN ×2 (05:48→18:41)
[2017-05-23] MEDS: PANTOPRAZOLE 40 MG/PACK PACK GT SCH (05:48)
[2017-05-23 07:44] VITALS: BP 102/57
[2017-05-23] MEDS: Z GUARD REMEDY 4 OZ OINT TP SCH ×2 (09:20→20:45)
[2017-05-23] MEDS: GLYCOPYRROLATE 1 MG TABLET GT SCH ×2 (09:20→16:36)
[2017-05-23] MEDS: LEVETIRACETAM SOL (5 ML) 100 MG/ML UDC GT SCH ×2 (09:20→20:45)
[2017-05-23] MEDS: FERROUS SULFATE - FOR SA ONLY 330 MG/7.5 ML UDC GT SCH ×3 (09:20→16:36)
[2017-05-23] MEDS: HYDROGEN PEROXIDE 480 ML BOTTLE TP SCH ×2 (09:20→20:45)
[2017-05-23] MEDS: ASCORBIC ACID 500 MG TABLET GT SCH ×2 (09:20→16:36)
[2017-05-23] MEDS: DOCUSATE SODIUM LIQ 100 MG/10 ML UDC GT SCH ×2 (09:20→16:36)
[2017-05-23] MEDS: PROSOURCE / PROSTAT (PYXIS) 30 ML UDC GT SCH ×2 (09:20→16:36)
[2017-05-23] MEDS: BACLOFEN (10 MG) 10 MG TABLET GT SCH ×3 (09:20→16:36)
[2017-05-23] MEDS: POTASSIUM CHLORIDE 20 MEQ POWDER PACKET GT SCH (09:20)
[2017-05-23] MEDS: HEPARIN SODIUM, PORCINE 5000 UNITS/1 ML VIAL SQ SCH ×2 (09:32→20:45)
[2017-05-23 19:45] VITALS: BP 100/62
[2017-05-23] MEDS: MULTIVIT, IRON, MIN NO. 8, FA 1 TAB GT SCH (20:45)
[2017-05-23] MEDS: SENNOSIDES 8.6 MG TABLET GT SCH (21:16)
[2017-05-23] MEDS: INSULIN DETEMIR 100 UNIT/ML CARTRIDGE SQ SCH (21:17)
[2017-05-24] MEDS: ALBUTEROL FS 2.5 MG/3 ML VIAL.NEB NEB SCH ×4 (01:23→19:29)
[2017-05-24] MEDS: IPRATROPIUM NEB FS 0.5 MG/2.5 ML AMPUL.NEB NEB SCH ×4 (01:23→19:29)
[2017-05-24] MEDS: BLOOD SUGAR DIAGNOSTIC 1 EACH STRIP IN SCH ×2 (05:37→17:09)
[2017-05-24] MEDS: POLYVINYL ALCOHOL 15 ML BOTTLE EACHEYE SCH ×4 (05:37→23:46)
[2017-05-24] MEDS: PANTOPRAZOLE 40 MG/PACK PACK GT SCH (05:37)
[2017-05-24] MEDS: GLYTROL 1,000 ML BAG GT PRN (05:38)
[2017-05-24] MEDS: DOCUSATE SODIUM LIQ 100 MG/10 ML UDC GT SCH ×2 (08:35→17:08)
[2017-05-24] MEDS: FERROUS SULFATE - FOR SA ONLY 330 MG/7.5 ML UDC GT SCH ×3 (08:36→17:08)
[2017-05-24] MEDS: LEVETIRACETAM SOL (5 ML) 100 MG/ML UDC GT SCH ×2 (08:36→20:37)
[2017-05-24] MEDS: POTASSIUM CHLORIDE 20 MEQ POWDER PACKET GT SCH (08:37)
[2017-05-24] MEDS: PROSOURCE / PROSTAT (PYXIS) 30 ML UDC GT SCH ×2 (08:38→17:08)
[2017-05-24] MEDS: BACLOFEN (10 MG) 10 MG TABLET GT SCH ×3 (08:38→17:08)
[2017-05-24] MEDS: ASCORBIC ACID 500 MG TABLET GT SCH ×2 (08:39→17:08)
[2017-05-24] MEDS: HEPARIN SODIUM, PORCINE 5000 UNITS/1 ML VIAL SQ SCH ×2 (08:40→20:38)
[2017-05-24] MEDS: Z GUARD REMEDY 4 OZ OINT TP SCH ×2 (08:40→20:38)
[2017-05-24] MEDS: GLYCOPYRROLATE 1 MG TABLET GT SCH ×2 (09:00→17:08)
[2017-05-24] MEDS: HYDROGEN PEROXIDE 480 ML BOTTLE TP SCH ×2 (09:00→20:38)
--- NOTE | 2017-05-24 16:55 | NUR ---
RT PT IS AWAKE BUT DOES NOT FOLLOW COMMANDS, ON THE VENT WITH NOTED SETTINGS. MONTHLY TRACH CHANGE DONE PER MD ORDER. KAREN Greenberg TRACH CHANGE DONE WITH NO COMPLICATIONS. NO REDNESS WITH MINIMAL BLEEDING AT TRACH SITE. ACTIVE DIRECTORY SYSTEMS ADMINISTRATOR CUFF PRESSURE NOTED. PT PLACED BACK ON VENT, NO RESPIRATORY DISTRESS NOTED. EQUAL BILATERAL BREATHE SOUNDS AND CHEST RISE. NO RESPIRATORY DISTRESS NOTED AT THIS TIME, WILL CONTINUE TO MONITOR. Addendum: 05/24/17 at 1815 by SAE ERNST RT Amended: Links added.
[2017-05-24 19:41] VITALS: BP 121/72
[2017-05-24] MEDS: MULTIVIT, IRON, MIN NO. 8, FA 1 TAB GT SCH (20:37)
[2017-05-24] MEDS: SENNOSIDES 8.6 MG TABLET GT SCH (21:25)
[2017-05-24] MEDS: INSULIN DETEMIR 100 UNIT/ML CARTRIDGE SQ SCH (21:25)
[2017-05-25] MEDS: IPRATROPIUM NEB FS 0.5 MG/2.5 ML AMPUL.NEB NEB SCH ×4 (01:36→19:11)
[2017-05-25] MEDS: ALBUTEROL FS 2.5 MG/3 ML VIAL.NEB NEB SCH ×4 (01:36→19:11)
[2017-05-25] MEDS: POLYVINYL ALCOHOL 15 ML BOTTLE EACHEYE SCH ×3 (05:41→17:28)
[2017-05-25] MEDS: BLOOD SUGAR DIAGNOSTIC 1 EACH STRIP IN SCH ×2 (05:41→17:56)
[2017-05-25] MEDS: PANTOPRAZOLE 40 MG/PACK PACK GT SCH (05:41)
[2017-05-25] MEDS: GLYTROL 1,000 ML BAG GT PRN (05:42)
[2017-05-25 07:48] VITALS: BP 138/70
[2017-05-25] MEDS: POTASSIUM CHLORIDE 20 MEQ POWDER PACKET GT SCH (08:23)
[2017-05-25] MEDS: PROSOURCE / PROSTAT (PYXIS) 30 ML UDC GT SCH ×2 (08:23→17:27)
[2017-05-25] MEDS: BACLOFEN (10 MG) 10 MG TABLET GT SCH ×3 (08:23→17:27)
[2017-05-25] MEDS: DOCUSATE SODIUM LIQ 100 MG/10 ML UDC GT SCH ×2 (08:23→17:27)
[2017-05-25] MEDS: ASCORBIC ACID 500 MG TABLET GT SCH ×2 (08:23→17:28)
[2017-05-25] MEDS: FERROUS SULFATE - FOR SA ONLY 330 MG/7.5 ML UDC GT SCH ×3 (08:23→17:27)
[2017-05-25] MEDS: GLYCOPYRROLATE 1 MG TABLET GT SCH ×2 (08:23→17:27)
[2017-05-25] MEDS: HEPARIN SODIUM, PORCINE 5000 UNITS/1 ML VIAL SQ SCH ×2 (08:25→20:26)
[2017-05-25] MEDS: LEVETIRACETAM SOL (5 ML) 100 MG/ML UDC GT SCH ×2 (09:00→20:26)
[2017-05-25] MEDS: Z GUARD REMEDY 4 OZ OINT TP SCH ×2 (09:00→20:27)
[2017-05-25] MEDS: HYDROGEN PEROXIDE 480 ML BOTTLE TP SCH ×2 (09:00→20:26)
[2017-05-25] MEDS: INSULIN LISPRO/ASPART 100 UNIT/ML CARTRIDGE SQ PRN (17:58)
[2017-05-25 20:02] VITALS: BP 112/76
[2017-05-25] MEDS: MULTIVIT, IRON, MIN NO. 8, FA 1 TAB GT SCH (20:26)
[2017-05-25] MEDS: SENNOSIDES 8.6 MG TABLET GT SCH (21:08)
[2017-05-25] MEDS: INSULIN DETEMIR 100 UNIT/ML CARTRIDGE SQ SCH (21:09)
[2017-05-26] MEDS: POLYVINYL ALCOHOL 15 ML BOTTLE EACHEYE SCH ×4 (00:53→18:10)
[2017-05-26] MEDS: IPRATROPIUM NEB FS 0.5 MG/2.5 ML AMPUL.NEB NEB SCH ×4 (01:55→18:54)
[2017-05-26] MEDS: ALBUTEROL FS 2.5 MG/3 ML VIAL.NEB NEB SCH ×4 (01:55→18:54)
[2017-05-26] MEDS: GLYTROL 1,000 ML BAG GT PRN (05:16)
[2017-05-26] MEDS: PANTOPRAZOLE 40 MG/PACK PACK GT SCH (05:16)
[2017-05-26] MEDS: BLOOD SUGAR DIAGNOSTIC 1 EACH STRIP IN SCH ×2 (05:47→18:10)
[2017-05-26 07:49] VITALS: BP 126/72
[2017-05-26] MEDS: POTASSIUM CHLORIDE 20 MEQ POWDER PACKET GT SCH (08:43)
[2017-05-26] MEDS: ASCORBIC ACID 500 MG TABLET GT SCH ×2 (08:43→17:00)
[2017-05-26] MEDS: PROSOURCE / PROSTAT (PYXIS) 30 ML UDC GT SCH ×2 (08:43→17:00)
[2017-05-26] MEDS: LEVETIRACETAM SOL (5 ML) 100 MG/ML UDC GT SCH ×2 (08:43→21:54)
[2017-05-26] MEDS: FERROUS SULFATE - FOR SA ONLY 330 MG/7.5 ML UDC GT SCH ×3 (08:43→17:00)
[2017-05-26] MEDS: GLYCOPYRROLATE 1 MG TABLET GT SCH ×2 (08:43→17:00)
[2017-05-26] MEDS: BACLOFEN (10 MG) 10 MG TABLET GT SCH ×3 (08:43→17:00)
[2017-05-26] MEDS: DOCUSATE SODIUM LIQ 100 MG/10 ML UDC GT SCH ×2 (08:43→17:00)
[2017-05-26] MEDS: HEPARIN SODIUM, PORCINE 5000 UNITS/1 ML VIAL SQ SCH ×2 (08:44→21:54)
[2017-05-26] MEDS: Z GUARD REMEDY 4 OZ OINT TP SCH ×2 (09:00→21:54)
[2017-05-26] MEDS: HYDROGEN PEROXIDE 480 ML BOTTLE TP SCH ×2 (09:00→21:54)
[2017-05-26] MEDS: INSULIN LISPRO/ASPART 100 UNIT/ML CARTRIDGE SQ PRN (18:11)
[2017-05-26 20:53] VITALS: BP 101/72
[2017-05-26] MEDS: SENNOSIDES 8.6 MG TABLET GT SCH (21:54)
[2017-05-26] MEDS: MULTIVIT, IRON, MIN NO. 8, FA 1 TAB GT SCH (21:54)
[2017-05-26] MEDS: INSULIN DETEMIR 100 UNIT/ML CARTRIDGE SQ SCH (21:55)
[2017-05-27] MEDS: POLYVINYL ALCOHOL 15 ML BOTTLE EACHEYE SCH ×5 (00:31→23:06)
[2017-05-27] MEDS: IPRATROPIUM NEB FS 0.5 MG/2.5 ML AMPUL.NEB NEB SCH ×4 (01:46→19:30)
[2017-05-27] MEDS: ALBUTEROL FS 2.5 MG/3 ML VIAL.NEB NEB SCH ×4 (01:46→19:30)
[2017-05-27] MEDS: PANTOPRAZOLE 40 MG/PACK PACK GT SCH (05:35)
[2017-05-27] MEDS: BLOOD SUGAR DIAGNOSTIC 1 EACH STRIP IN SCH ×2 (05:35→18:04)
[2017-05-27] MEDS: GLYTROL 1,000 ML BAG GT PRN (05:36)
[2017-05-27] MEDS: INSULIN LISPRO/ASPART 100 UNIT/ML CARTRIDGE SQ PRN ×2 (05:36→18:07)
[2017-05-27 07:33] VITALS: BP 121/78
[2017-05-27] MEDS: POTASSIUM CHLORIDE 20 MEQ POWDER PACKET GT SCH (09:38)
[2017-05-27] MEDS: FERROUS SULFATE - FOR SA ONLY 330 MG/7.5 ML UDC GT SCH ×3 (09:38→17:15)
[2017-05-27] MEDS: ASCORBIC ACID 500 MG TABLET GT SCH ×2 (09:38→17:15)
[2017-05-27] MEDS: DOCUSATE SODIUM LIQ 100 MG/10 ML UDC GT SCH ×2 (09:38→17:15)
[2017-05-27] MEDS: GLYCOPYRROLATE 1 MG TABLET GT SCH ×2 (09:38→17:15)
[2017-05-27] MEDS: LEVETIRACETAM SOL (5 ML) 100 MG/ML UDC GT SCH ×2 (09:38→21:02)
[2017-05-27] MEDS: BACLOFEN (10 MG) 10 MG TABLET GT SCH ×3 (09:38→17:15)
[2017-05-27] MEDS: PROSOURCE / PROSTAT (PYXIS) 30 ML UDC GT SCH ×2 (09:38→17:15)
[2017-05-27] MEDS: HYDROGEN PEROXIDE 480 ML BOTTLE TP SCH ×2 (09:39→21:02)
[2017-05-27] MEDS: Z GUARD REMEDY 4 OZ OINT TP SCH ×2 (09:39→21:02)
[2017-05-27] MEDS: HEPARIN SODIUM, PORCINE 5000 UNITS/1 ML VIAL SQ SCH ×2 (09:39→21:02)
[2017-05-27 20:02] VITALS: BP 115/70
[2017-05-27] MEDS: INSULIN DETEMIR 100 UNIT/ML CARTRIDGE SQ SCH (21:02)
[2017-05-27] MEDS: MULTIVIT, IRON, MIN NO. 8, FA 1 TAB GT SCH (21:02)
[2017-05-27] MEDS: SENNOSIDES 8.6 MG TABLET GT SCH (21:02)
[2017-05-28] MEDS: ALBUTEROL FS 2.5 MG/3 ML VIAL.NEB NEB SCH ×4 (01:25→19:17)
[2017-05-28] MEDS: IPRATROPIUM NEB FS 0.5 MG/2.5 ML AMPUL.NEB NEB SCH ×4 (01:25→19:17)
[2017-05-28] MEDS: PANTOPRAZOLE 40 MG/PACK PACK GT SCH (05:10)
[2017-05-28] MEDS: GLYTROL 1,000 ML BAG GT PRN (05:10)
[2017-05-28] MEDS: POLYVINYL ALCOHOL 15 ML BOTTLE EACHEYE SCH ×4 (05:10→23:21)
[2017-05-28] MEDS: BLOOD SUGAR DIAGNOSTIC 1 EACH STRIP IN SCH ×2 (05:46→17:50)
[2017-05-28 07:49] VITALS: BP 108/77
[2017-05-28] MEDS: HYDROGEN PEROXIDE 480 ML BOTTLE TP SCH ×2 (09:00→21:07)
[2017-05-28] MEDS: Z GUARD REMEDY 4 OZ OINT TP SCH ×2 (09:00→21:07)
[2017-05-28] MEDS: LEVETIRACETAM SOL (5 ML) 100 MG/ML UDC GT SCH ×2 (09:37→21:05)
[2017-05-28] MEDS: BACLOFEN (10 MG) 10 MG TABLET GT SCH ×3 (09:37→17:50)
[2017-05-28] MEDS: POTASSIUM CHLORIDE 20 MEQ POWDER PACKET GT SCH (09:37)
[2017-05-28] MEDS: PROSOURCE / PROSTAT (PYXIS) 30 ML UDC GT SCH ×2 (09:37→17:50)
[2017-05-28] MEDS: FERROUS SULFATE - FOR SA ONLY 330 MG/7.5 ML UDC GT SCH ×3 (09:37→17:50)
[2017-05-28] MEDS: GLYCOPYRROLATE 1 MG TABLET GT SCH ×2 (09:37→17:50)
[2017-05-28] MEDS: DOCUSATE SODIUM LIQ 100 MG/10 ML UDC GT SCH ×2 (09:37→17:50)
[2017-05-28] MEDS: ASCORBIC ACID 500 MG TABLET GT SCH ×2 (09:38→17:50)
[2017-05-28] MEDS: HEPARIN SODIUM, PORCINE 5000 UNITS/1 ML VIAL SQ SCH ×2 (09:39→21:07)
[2017-05-28] MEDS: INSULIN LISPRO/ASPART 100 UNIT/ML CARTRIDGE SQ PRN (18:00)
[2017-05-28 19:59] VITALS: BP 117/76
[2017-05-28] MEDS: MULTIVIT, IRON, MIN NO. 8, FA 1 TAB GT SCH (21:05)
[2017-05-28] MEDS: SENNOSIDES 8.6 MG TABLET GT SCH (21:07)
[2017-05-28] MEDS: INSULIN DETEMIR 100 UNIT/ML CARTRIDGE SQ SCH (21:07)
[2017-05-29] MEDS: IPRATROPIUM NEB FS 0.5 MG/2.5 ML AMPUL.NEB NEB SCH ×4 (02:13→19:46)
[2017-05-29] MEDS: ALBUTEROL FS 2.5 MG/3 ML VIAL.NEB NEB SCH ×4 (02:13→19:46)
[2017-05-29] MEDS: GLYTROL 1,000 ML BAG GT PRN (05:42)
[2017-05-29] MEDS: BLOOD SUGAR DIAGNOSTIC 1 EACH STRIP IN SCH ×2 (05:42→17:42)
[2017-05-29] MEDS: PANTOPRAZOLE 40 MG/PACK PACK GT SCH (05:42)
[2017-05-29] MEDS: POLYVINYL ALCOHOL 15 ML BOTTLE EACHEYE SCH ×3 (05:42→17:42)
[2017-05-29] MEDS: BISACODYL SUPP (10 MG) 10 MG/SUPP.RECT SUPP.RECT RC PRN (06:11)
[2017-05-29 07:46] VITALS: BP 114/74
[2017-05-29] MEDS: HEPARIN SODIUM, PORCINE 5000 UNITS/1 ML VIAL SQ SCH ×2 (09:06→20:25)
[2017-05-29] MEDS: POTASSIUM CHLORIDE 20 MEQ POWDER PACKET GT SCH (09:06)
[2017-05-29] MEDS: PROSOURCE / PROSTAT (PYXIS) 30 ML UDC GT SCH ×2 (09:06→17:42)
[2017-05-29] MEDS: LEVETIRACETAM SOL (5 ML) 100 MG/ML UDC GT SCH ×2 (09:06→20:25)
[2017-05-29] MEDS: BACLOFEN (10 MG) 10 MG TABLET GT SCH ×3 (09:06→17:42)
[2017-05-29] MEDS: GLYCOPYRROLATE 1 MG TABLET GT SCH ×2 (09:06→17:42)
[2017-05-29] MEDS: ASCORBIC ACID 500 MG TABLET GT SCH ×2 (09:06→17:42)
[2017-05-29] MEDS: FERROUS SULFATE - FOR SA ONLY 330 MG/7.5 ML UDC GT SCH ×3 (09:06→17:42)
[2017-05-29] MEDS: DOCUSATE SODIUM LIQ 100 MG/10 ML UDC GT SCH ×2 (09:06→17:42)
[2017-05-29] MEDS: HYDROGEN PEROXIDE 480 ML BOTTLE TP SCH ×2 (09:07→20:25)
[2017-05-29] MEDS: Z GUARD REMEDY 4 OZ OINT TP SCH ×2 (09:07→20:26)
[2017-05-29] MEDS: INSULIN LISPRO/ASPART 100 UNIT/ML CARTRIDGE SQ PRN (17:45)
[2017-05-29 19:47] VITALS: BP 105/62
[2017-05-29] MEDS: MULTIVIT, IRON, MIN NO. 8, FA 1 TAB GT SCH (20:25)
[2017-05-29] MEDS: SENNOSIDES 8.6 MG TABLET GT SCH (21:25)
[2017-05-29] MEDS: INSULIN DETEMIR 100 UNIT/ML CARTRIDGE SQ SCH (21:25)
[2017-05-30] MEDS: POLYVINYL ALCOHOL 15 ML BOTTLE EACHEYE SCH ×4 (00:28→18:23)
[2017-05-30] MEDS: ALBUTEROL FS 2.5 MG/3 ML VIAL.NEB NEB SCH ×4 (01:55→20:15)
[2017-05-30] MEDS: IPRATROPIUM NEB FS 0.5 MG/2.5 ML AMPUL.NEB NEB SCH ×4 (01:55→20:15)
[2017-05-30] MEDS: PANTOPRAZOLE 40 MG/PACK PACK GT SCH (05:25)
[2017-05-30] MEDS: BLOOD SUGAR DIAGNOSTIC 1 EACH STRIP IN SCH ×2 (05:25→18:25)
[2017-05-30] MEDS: INSULIN LISPRO/ASPART 100 UNIT/ML CARTRIDGE SQ PRN ×2 (05:26→18:25)
[2017-05-30] MEDS: GLYTROL 1,000 ML BAG GT PRN (06:21)
[2017-05-30 07:53] VITALS: BP 104/66
[2017-05-30] MEDS: PROSOURCE / PROSTAT (PYXIS) 30 ML UDC GT SCH ×2 (08:30→16:40)
[2017-05-30] MEDS: DOCUSATE SODIUM LIQ 100 MG/10 ML UDC GT SCH ×2 (08:30→16:40)
[2017-05-30] MEDS: FERROUS SULFATE - FOR SA ONLY 330 MG/7.5 ML UDC GT SCH ×3 (08:30→16:40)
[2017-05-30] MEDS: ASCORBIC ACID 500 MG TABLET GT SCH ×2 (08:30→16:40)
[2017-05-30] MEDS: BACLOFEN (10 MG) 10 MG TABLET GT SCH ×3 (08:30→16:40)
[2017-05-30] MEDS: POTASSIUM CHLORIDE 20 MEQ POWDER PACKET GT SCH (08:30)
[2017-05-30] MEDS: LEVETIRACETAM SOL (5 ML) 100 MG/ML UDC GT SCH ×2 (08:30→20:15)
[2017-05-30] MEDS: GLYCOPYRROLATE 1 MG TABLET GT SCH ×2 (08:30→16:40)
[2017-05-30] MEDS: HYDROGEN PEROXIDE 480 ML BOTTLE TP SCH ×2 (08:31→20:16)
[2017-05-30] MEDS: HEPARIN SODIUM, PORCINE 5000 UNITS/1 ML VIAL SQ SCH ×2 (08:31→20:16)
[2017-05-30] MEDS: Z GUARD REMEDY 4 OZ OINT TP SCH ×2 (08:31→20:16)
[2017-05-30 19:51] VITALS: BP 107/56
[2017-05-30] MEDS: MULTIVIT, IRON, MIN NO. 8, FA 1 TAB GT SCH (20:15)
[2017-05-30] MEDS: SENNOSIDES 8.6 MG TABLET GT SCH (21:33)
[2017-05-30] MEDS: INSULIN DETEMIR 100 UNIT/ML CARTRIDGE SQ SCH (21:33)
[2017-05-31] MEDS: POLYVINYL ALCOHOL 15 ML BOTTLE EACHEYE SCH ×4 (00:28→17:08)
[2017-05-31] MEDS: IPRATROPIUM NEB FS 0.5 MG/2.5 ML AMPUL.NEB NEB SCH ×4 (02:26→19:17)
[2017-05-31] MEDS: ALBUTEROL FS 2.5 MG/3 ML VIAL.NEB NEB SCH ×4 (02:26→19:17)
[2017-05-31] MEDS: PANTOPRAZOLE 40 MG/PACK PACK GT SCH (05:38)
[2017-05-31] MEDS: BLOOD SUGAR DIAGNOSTIC 1 EACH STRIP IN SCH ×2 (05:38→18:19)
[2017-05-31] MEDS: GLYTROL 1,000 ML BAG GT PRN (05:46)
[2017-05-31 07:55] VITALS: BP 97/65
[2017-05-31] MEDS: FERROUS SULFATE - FOR SA ONLY 330 MG/7.5 ML UDC GT SCH ×3 (08:40→16:46)
[2017-05-31] MEDS: GLYCOPYRROLATE 1 MG TABLET GT SCH ×2 (08:40→16:46)
[2017-05-31] MEDS: POTASSIUM CHLORIDE 20 MEQ POWDER PACKET GT SCH (08:40)
[2017-05-31] MEDS: LEVETIRACETAM SOL (5 ML) 100 MG/ML UDC GT SCH ×2 (08:40→20:12)
[2017-05-31] MEDS: DOCUSATE SODIUM LIQ 100 MG/10 ML UDC GT SCH ×2 (08:40→16:46)
[2017-05-31] MEDS: Z GUARD REMEDY 4 OZ OINT TP SCH ×2 (08:41→20:13)
[2017-05-31] MEDS: HYDROGEN PEROXIDE 480 ML BOTTLE TP SCH ×2 (08:41→20:13)
[2017-05-31] MEDS: HEPARIN SODIUM, PORCINE 5000 UNITS/1 ML VIAL SQ SCH ×2 (08:41→20:13)
[2017-05-31] MEDS: PROSOURCE / PROSTAT (PYXIS) 30 ML UDC GT SCH ×2 (08:41→16:46)
[2017-05-31] MEDS: BACLOFEN (10 MG) 10 MG TABLET GT SCH ×3 (08:41→16:46)
[2017-05-31] MEDS: ASCORBIC ACID 500 MG TABLET GT SCH ×2 (08:41→16:47)
[2017-05-31] MEDS: INSULIN LISPRO/ASPART 100 UNIT/ML CARTRIDGE SQ PRN (18:19)
[2017-05-31 19:11] VITALS: BP 104/67
[2017-05-31] MEDS: MULTIVIT, IRON, MIN NO. 8, FA 1 TAB GT SCH (20:12)
[2017-05-31] MEDS: SENNOSIDES 8.6 MG TABLET GT SCH (22:13)
[2017-05-31] MEDS: INSULIN DETEMIR 100 UNIT/ML CARTRIDGE SQ SCH (22:13)
[2017-06-01] MEDS: POLYVINYL ALCOHOL 15 ML BOTTLE EACHEYE SCH ×5 (00:03→23:41)
[2017-06-01] MEDS: IPRATROPIUM NEB FS 0.5 MG/2.5 ML AMPUL.NEB NEB SCH ×4 (02:00→19:48)
[2017-06-01] MEDS: ALBUTEROL FS 2.5 MG/3 ML VIAL.NEB NEB SCH ×4 (02:00→19:48)
[2017-06-01] MEDS: GLYTROL 1,000 ML BAG GT PRN (04:18)
[2017-06-01] MEDS: PANTOPRAZOLE 40 MG/PACK PACK GT SCH (05:13)
[2017-06-01] MEDS: BLOOD SUGAR DIAGNOSTIC 1 EACH STRIP IN SCH ×2 (05:13→17:45)
[2017-06-01 07:50] VITALS: BP 95/59
[2017-06-01] MEDS: FERROUS SULFATE - FOR SA ONLY 330 MG/7.5 ML UDC GT SCH ×3 (09:00→17:45)
[2017-06-01] MEDS: BACLOFEN (10 MG) 10 MG TABLET GT SCH ×3 (09:00→17:45)
[2017-06-01] MEDS: PROSOURCE / PROSTAT (PYXIS) 30 ML UDC GT SCH ×2 (09:00→17:45)
[2017-06-01] MEDS: HYDROGEN PEROXIDE 480 ML BOTTLE TP SCH ×2 (09:00→21:26)
[2017-06-01] MEDS: DOCUSATE SODIUM LIQ 100 MG/10 ML UDC GT SCH ×2 (09:00→17:45)
[2017-06-01] MEDS: Z GUARD REMEDY 4 OZ OINT TP SCH ×2 (09:00→21:26)
[2017-06-01] MEDS: GLYCOPYRROLATE 1 MG TABLET GT SCH ×2 (09:00→17:45)
[2017-06-01] MEDS: HEPARIN SODIUM, PORCINE 5000 UNITS/1 ML VIAL SQ SCH ×2 (09:00→21:26)
[2017-06-01] MEDS: LEVETIRACETAM SOL (5 ML) 100 MG/ML UDC GT SCH ×2 (09:00→21:25)
[2017-06-01] MEDS: ASCORBIC ACID 500 MG TABLET GT SCH ×2 (09:00→17:45)
[2017-06-01] MEDS: POTASSIUM CHLORIDE 20 MEQ POWDER PACKET GT SCH (09:00)
[2017-06-01] MEDS: ACETAMINOPHEN 650 MG/20 ML UDC- FOR SA PATIENTS ONLY GT PRN (18:05)
[2017-06-01] MEDS: POLYETHYLENE GLYCOL 3350 17 GM POWD.PACK GT PRN (19:00)
[2017-06-01 19:44] VITALS: BP 102/66
[2017-06-01] MEDS: MULTIVIT, IRON, MIN NO. 8, FA 1 TAB GT SCH (21:25)
[2017-06-01] MEDS: INSULIN DETEMIR 100 UNIT/ML CARTRIDGE SQ SCH (21:26)
[2017-06-01] MEDS: SENNOSIDES 8.6 MG TABLET GT SCH (21:26)
[2017-06-02] MEDS: IPRATROPIUM NEB FS 0.5 MG/2.5 ML AMPUL.NEB NEB SCH ×4 (02:29→19:06)
[2017-06-02] MEDS: ALBUTEROL FS 2.5 MG/3 ML VIAL.NEB NEB SCH ×4 (02:29→19:06)
[2017-06-02] MEDS: PANTOPRAZOLE 40 MG/PACK PACK GT SCH (05:32)
[2017-06-02] MEDS: POLYVINYL ALCOHOL 15 ML BOTTLE EACHEYE SCH ×3 (05:32→18:26)
[2017-06-02] MEDS: BLOOD SUGAR DIAGNOSTIC 1 EACH STRIP IN SCH ×2 (05:32→18:27)
[2017-06-02] MEDS: INSULIN LISPRO/ASPART 100 UNIT/ML CARTRIDGE SQ PRN (05:33)
[2017-06-02] MEDS: GLYTROL 1,000 ML BAG GT PRN (05:33)
[2017-06-02] MEDS: POLYETHYLENE GLYCOL 3350 17 GM POWD.PACK GT PRN (06:58)
[2017-06-02 07:50] VITALS: BP 114/78
[2017-06-02] MEDS: HEPARIN SODIUM, PORCINE 5000 UNITS/1 ML VIAL SQ SCH ×2 (09:00→20:13)
[2017-06-02] MEDS: FERROUS SULFATE - FOR SA ONLY 330 MG/7.5 ML UDC GT SCH ×3 (09:00→17:00)
[2017-06-02] MEDS: ASCORBIC ACID 500 MG TABLET GT SCH ×2 (09:00→17:00)
[2017-06-02] MEDS: Z GUARD REMEDY 4 OZ OINT TP SCH ×2 (09:00→20:15)
[2017-06-02] MEDS: POTASSIUM CHLORIDE 20 MEQ POWDER PACKET GT SCH (09:00)
[2017-06-02] MEDS: BACLOFEN (10 MG) 10 MG TABLET GT SCH ×3 (09:00→17:00)
[2017-06-02] MEDS: GLYCOPYRROLATE 1 MG TABLET GT SCH ×2 (09:00→17:00)
[2017-06-02] MEDS: DOCUSATE SODIUM LIQ 100 MG/10 ML UDC GT SCH ×2 (09:00→17:00)
[2017-06-02] MEDS: HYDROGEN PEROXIDE 480 ML BOTTLE TP SCH ×2 (09:00→20:15)
[2017-06-02] MEDS: PROSOURCE / PROSTAT (PYXIS) 30 ML UDC GT SCH ×2 (09:00→17:00)
[2017-06-02] MEDS: LEVETIRACETAM SOL (5 ML) 100 MG/ML UDC GT SCH ×2 (09:00→20:11)
[2017-06-02 19:56] VITALS: BP 105/60
[2017-06-02] MEDS: MULTIVIT, IRON, MIN NO. 8, FA 1 TAB GT SCH (20:12)
[2017-06-02] MEDS: SENNOSIDES 8.6 MG TABLET GT SCH (22:00)
[2017-06-02] MEDS: INSULIN DETEMIR 100 UNIT/ML CARTRIDGE SQ SCH (22:00)
[2017-06-03] MEDS: POLYVINYL ALCOHOL 15 ML BOTTLE EACHEYE SCH ×4 (00:10→17:39)
[2017-06-03] MEDS: ALBUTEROL FS 2.5 MG/3 ML VIAL.NEB NEB SCH ×4 (01:48→19:24)
[2017-06-03] MEDS: IPRATROPIUM NEB FS 0.5 MG/2.5 ML AMPUL.NEB NEB SCH ×4 (01:48→19:24)
[2017-06-03] MEDS: PANTOPRAZOLE 40 MG/PACK PACK GT SCH (05:11)
[2017-06-03] MEDS: BLOOD SUGAR DIAGNOSTIC 1 EACH STRIP IN SCH ×2 (05:11→17:39)
[2017-06-03] MEDS: GLYTROL 1,000 ML BAG GT PRN (05:12)
[2017-06-03] MEDS: BISACODYL SUPP (10 MG) 10 MG/SUPP.RECT SUPP.RECT RC PRN (05:21)
[2017-06-03 07:28] VITALS: BP 103/63
[2017-06-03] MEDS: PROSOURCE / PROSTAT (PYXIS) 30 ML UDC GT SCH ×2 (09:57→17:39)
[2017-06-03] MEDS: FERROUS SULFATE - FOR SA ONLY 330 MG/7.5 ML UDC GT SCH ×3 (09:57→17:39)
[2017-06-03] MEDS: DOCUSATE SODIUM LIQ 100 MG/10 ML UDC GT SCH ×2 (09:57→17:39)
[2017-06-03] MEDS: BACLOFEN (10 MG) 10 MG TABLET GT SCH ×3 (09:57→17:39)
[2017-06-03] MEDS: LEVETIRACETAM SOL (5 ML) 100 MG/ML UDC GT SCH ×2 (09:57→21:17)
[2017-06-03] MEDS: ASCORBIC ACID 500 MG TABLET GT SCH ×2 (09:57→17:39)
[2017-06-03] MEDS: GLYCOPYRROLATE 1 MG TABLET GT SCH ×2 (09:57→17:39)
[2017-06-03] MEDS: POTASSIUM CHLORIDE 20 MEQ POWDER PACKET GT SCH (09:57)
[2017-06-03] MEDS: HEPARIN SODIUM, PORCINE 5000 UNITS/1 ML VIAL SQ SCH ×2 (09:58→21:17)
[2017-06-03] MEDS: HYDROGEN PEROXIDE 480 ML BOTTLE TP SCH ×2 (09:58→21:17)
[2017-06-03] MEDS: Z GUARD REMEDY 4 OZ OINT TP SCH ×2 (09:58→21:17)
[2017-06-03 19:37] VITALS: BP 102/59
[2017-06-03] MEDS: MULTIVIT, IRON, MIN NO. 8, FA 1 TAB GT SCH (21:17)
[2017-06-03] MEDS: SENNOSIDES 8.6 MG TABLET GT SCH (21:17)
[2017-06-03] MEDS: INSULIN DETEMIR 100 UNIT/ML CARTRIDGE SQ SCH (21:18)
[2017-06-04] MEDS: POLYVINYL ALCOHOL 15 ML BOTTLE EACHEYE SCH ×4 (00:01→17:03)
[2017-06-04] MEDS: IPRATROPIUM NEB FS 0.5 MG/2.5 ML AMPUL.NEB NEB SCH ×4 (01:21→19:28)
[2017-06-04] MEDS: ALBUTEROL FS 2.5 MG/3 ML VIAL.NEB NEB SCH ×4 (01:21→19:28)
[2017-06-04] MEDS: GLYTROL 1,000 ML BAG GT PRN (01:58)
[2017-06-04] MEDS: INSULIN LISPRO/ASPART 100 UNIT/ML CARTRIDGE SQ PRN ×2 (05:29→18:44)
[2017-06-04] MEDS: PANTOPRAZOLE 40 MG/PACK PACK GT SCH (05:29)
[2017-06-04] MEDS: BLOOD SUGAR DIAGNOSTIC 1 EACH STRIP IN SCH ×2 (05:29→18:44)
[2017-06-04 07:27] VITALS: BP 142/76
[2017-06-04] MEDS: HYDROGEN PEROXIDE 480 ML BOTTLE TP SCH ×2 (09:00→21:56)
[2017-06-04] MEDS: Z GUARD REMEDY 4 OZ OINT TP SCH ×2 (09:00→21:56)
[2017-06-04] MEDS: LEVETIRACETAM SOL (5 ML) 100 MG/ML UDC GT SCH ×2 (09:03→21:55)
[2017-06-04] MEDS: DOCUSATE SODIUM LIQ 100 MG/10 ML UDC GT SCH ×2 (09:03→17:03)
[2017-06-04] MEDS: FERROUS SULFATE - FOR SA ONLY 330 MG/7.5 ML UDC GT SCH ×3 (09:03→17:03)
[2017-06-04] MEDS: POTASSIUM CHLORIDE 20 MEQ POWDER PACKET GT SCH (09:03)
[2017-06-04] MEDS: ASCORBIC ACID 500 MG TABLET GT SCH ×2 (09:03→17:03)
[2017-06-04] MEDS: PROSOURCE / PROSTAT (PYXIS) 30 ML UDC GT SCH ×2 (09:03→17:03)
[2017-06-04] MEDS: BACLOFEN (10 MG) 10 MG TABLET GT SCH ×3 (09:03→17:03)
[2017-06-04] MEDS: GLYCOPYRROLATE 1 MG TABLET GT SCH ×2 (09:03→17:03)
[2017-06-04] MEDS: HEPARIN SODIUM, PORCINE 5000 UNITS/1 ML VIAL SQ SCH ×2 (09:03→21:56)
[2017-06-04 19:25] VITALS: BP 105/65
[2017-06-04] MEDS: MULTIVIT, IRON, MIN NO. 8, FA 1 TAB GT SCH (21:55)
[2017-06-04] MEDS: SENNOSIDES 8.6 MG TABLET GT SCH (21:56)
[2017-06-04] MEDS: INSULIN DETEMIR 100 UNIT/ML CARTRIDGE SQ SCH (22:18)
[2017-06-05] MEDS: POLYVINYL ALCOHOL 15 ML BOTTLE EACHEYE SCH ×4 (00:22→17:30)
[2017-06-05] MEDS: GLYTROL 1,000 ML BAG GT PRN (01:12)
[2017-06-05] MEDS: ALBUTEROL FS 2.5 MG/3 ML VIAL.NEB NEB SCH ×4 (02:25→20:21)
[2017-06-05] MEDS: IPRATROPIUM NEB FS 0.5 MG/2.5 ML AMPUL.NEB NEB SCH ×4 (02:25→20:21)
[2017-06-05] MEDS: BLOOD SUGAR DIAGNOSTIC 1 EACH STRIP IN SCH ×2 (05:32→17:30)
[2017-06-05] MEDS: PANTOPRAZOLE 40 MG/PACK PACK GT SCH (05:32)
[2017-06-05] MEDS: INSULIN LISPRO/ASPART 100 UNIT/ML CARTRIDGE SQ PRN ×2 (05:32→17:31)
[2017-06-05 07:47] VITALS: BP 99/72
[2017-06-05] MEDS: HEPARIN SODIUM, PORCINE 5000 UNITS/1 ML VIAL SQ SCH ×2 (08:23→20:14)
[2017-06-05] MEDS: DOCUSATE SODIUM LIQ 100 MG/10 ML UDC GT SCH ×2 (08:23→16:45)
[2017-06-05] MEDS: FERROUS SULFATE - FOR SA ONLY 330 MG/7.5 ML UDC GT SCH ×3 (08:23→16:45)
[2017-06-05] MEDS: POTASSIUM CHLORIDE 20 MEQ POWDER PACKET GT SCH (08:23)
[2017-06-05] MEDS: GLYCOPYRROLATE 1 MG TABLET GT SCH ×2 (08:23→16:43)
[2017-06-05] MEDS: BACLOFEN (10 MG) 10 MG TABLET GT SCH ×3 (08:23→16:43)
[2017-06-05] MEDS: LEVETIRACETAM SOL (5 ML) 100 MG/ML UDC GT SCH ×2 (08:23→20:14)
[2017-06-05] MEDS: ASCORBIC ACID 500 MG TABLET GT SCH ×2 (08:23→16:46)
[2017-06-05] MEDS: PROSOURCE / PROSTAT (PYXIS) 30 ML UDC GT SCH ×2 (08:23→16:46)
[2017-06-05] MEDS: Z GUARD REMEDY 4 OZ OINT TP SCH ×2 (09:00→20:14)
[2017-06-05] MEDS: HYDROGEN PEROXIDE 480 ML BOTTLE TP SCH ×2 (09:00→20:14)
[2017-06-05 19:38] VITALS: BP 107/71
[2017-06-05] MEDS: MULTIVIT, IRON, MIN NO. 8, FA 1 TAB GT SCH (20:14)
[2017-06-05] MEDS: SENNOSIDES 8.6 MG TABLET GT SCH (22:15)
[2017-06-05] MEDS: INSULIN DETEMIR 100 UNIT/ML CARTRIDGE SQ SCH (22:16)
[2017-06-06] MEDS: POLYVINYL ALCOHOL 15 ML BOTTLE EACHEYE SCH ×4 (00:09→17:49)
[2017-06-06] MEDS: IPRATROPIUM NEB FS 0.5 MG/2.5 ML AMPUL.NEB NEB SCH ×4 (01:20→19:20)
[2017-06-06] MEDS: ALBUTEROL FS 2.5 MG/3 ML VIAL.NEB NEB SCH ×4 (01:20→19:20)
[2017-06-06] MEDS: GLYTROL 1,000 ML BAG GT PRN (04:45)
[2017-06-06] MEDS: PANTOPRAZOLE 40 MG/PACK PACK GT SCH (05:09)
[2017-06-06] MEDS: BLOOD SUGAR DIAGNOSTIC 1 EACH STRIP IN SCH ×2 (05:09→17:49)
[2017-06-06 08:52] VITALS: BP 120/70
[2017-06-06] MEDS: BACLOFEN (10 MG) 10 MG TABLET GT SCH ×3 (09:31→17:48)
[2017-06-06] MEDS: GLYCOPYRROLATE 1 MG TABLET GT SCH ×2 (09:31→17:48)
[2017-06-06] MEDS: LEVETIRACETAM SOL (5 ML) 100 MG/ML UDC GT SCH ×2 (09:31→20:12)
[2017-06-06] MEDS: POTASSIUM CHLORIDE 20 MEQ POWDER PACKET GT SCH (09:31)
[2017-06-06] MEDS: DOCUSATE SODIUM LIQ 100 MG/10 ML UDC GT SCH ×2 (09:33→17:48)
[2017-06-06] MEDS: FERROUS SULFATE - FOR SA ONLY 330 MG/7.5 ML UDC GT SCH ×3 (09:34→17:48)
[2017-06-06] MEDS: PROSOURCE / PROSTAT (PYXIS) 30 ML UDC GT SCH ×2 (09:45→17:48)
[2017-06-06] MEDS: ASCORBIC ACID 500 MG TABLET GT SCH ×2 (09:45→17:48)
[2017-06-06] MEDS: HYDROGEN PEROXIDE 480 ML BOTTLE TP SCH ×2 (09:58→20:13)
[2017-06-06] MEDS: Z GUARD REMEDY 4 OZ OINT TP SCH ×2 (09:58→20:13)
[2017-06-06] MEDS: HEPARIN SODIUM, PORCINE 5000 UNITS/1 ML VIAL SQ SCH ×2 (09:58→20:13)
--- NOTE | 2017-06-06 14:00 | NUR ---
Seen and examined by Mya Rodgers NP for Dr. Alvarez NNO given.
[2017-06-06 19:58] VITALS: BP 111/73
[2017-06-06] MEDS: MULTIVIT, IRON, MIN NO. 8, FA 1 TAB GT SCH (20:12)
[2017-06-06] MEDS: SENNOSIDES 8.6 MG TABLET GT SCH (22:13)
[2017-06-06] MEDS: INSULIN DETEMIR 100 UNIT/ML CARTRIDGE SQ SCH (22:14)
[2017-06-07] MEDS: POLYVINYL ALCOHOL 15 ML BOTTLE EACHEYE SCH ×4 (00:16→17:06)
[2017-06-07] MEDS: IPRATROPIUM NEB FS 0.5 MG/2.5 ML AMPUL.NEB NEB SCH ×4 (00:41→20:10)
[2017-06-07] MEDS: ALBUTEROL FS 2.5 MG/3 ML VIAL.NEB NEB SCH ×4 (00:41→20:10)
[2017-06-07] MEDS: PANTOPRAZOLE 40 MG/PACK PACK GT SCH (05:07)
[2017-06-07] MEDS: BLOOD SUGAR DIAGNOSTIC 1 EACH STRIP IN SCH ×2 (05:12→17:06)
[2017-06-07] MEDS: INSULIN LISPRO/ASPART 100 UNIT/ML CARTRIDGE SQ PRN ×2 (05:13→17:49)
[2017-06-07] MEDS: GLYTROL 1,000 ML BAG GT PRN (05:20)
[2017-06-07 07:46] VITALS: BP 113/73
[2017-06-07] MEDS: POTASSIUM CHLORIDE 20 MEQ POWDER PACKET GT SCH (08:07)
[2017-06-07] MEDS: GLYCOPYRROLATE 1 MG TABLET GT SCH ×2 (08:07→17:09)
[2017-06-07] MEDS: BACLOFEN (10 MG) 10 MG TABLET GT SCH ×3 (08:07→17:09)
[2017-06-07] MEDS: DOCUSATE SODIUM LIQ 100 MG/10 ML UDC GT SCH ×2 (08:07→17:04)
[2017-06-07] MEDS: ASCORBIC ACID 500 MG TABLET GT SCH ×2 (08:07→17:06)
[2017-06-07] MEDS: FERROUS SULFATE - FOR SA ONLY 330 MG/7.5 ML UDC GT SCH ×3 (08:07→17:04)
[2017-06-07] MEDS: LEVETIRACETAM SOL (5 ML) 100 MG/ML UDC GT SCH ×2 (08:07→20:14)
[2017-06-07] MEDS: PROSOURCE / PROSTAT (PYXIS) 30 ML UDC GT SCH ×2 (08:07→17:05)
[2017-06-07] MEDS: HEPARIN SODIUM, PORCINE 5000 UNITS/1 ML VIAL SQ SCH ×2 (08:08→20:15)
[2017-06-07] MEDS: Z GUARD REMEDY 4 OZ OINT TP SCH ×2 (08:08→20:15)
[2017-06-07] MEDS: HYDROGEN PEROXIDE 480 ML BOTTLE TP SCH ×2 (08:08→20:15)
[2017-06-07 19:51] VITALS: BP 103/66
[2017-06-07] MEDS: MULTIVIT, IRON, MIN NO. 8, FA 1 TAB GT SCH (20:14)
[2017-06-07] MEDS: INSULIN DETEMIR 100 UNIT/ML CARTRIDGE SQ SCH (22:40)
[2017-06-07] MEDS: SENNOSIDES 8.6 MG TABLET GT SCH (22:40)
[2017-06-08] MEDS: POLYVINYL ALCOHOL 15 ML BOTTLE EACHEYE SCH ×5 (00:03→23:49)
[2017-06-08] MEDS: ALBUTEROL FS 2.5 MG/3 ML VIAL.NEB NEB SCH ×4 (00:54→19:01)
[2017-06-08] MEDS: IPRATROPIUM NEB FS 0.5 MG/2.5 ML AMPUL.NEB NEB SCH ×4 (00:54→19:01)
[2017-06-08] MEDS: GLYTROL 1,000 ML BAG GT PRN (04:16)
[2017-06-08] MEDS: PANTOPRAZOLE 40 MG/PACK PACK GT SCH (05:13)
[2017-06-08] MEDS: BLOOD SUGAR DIAGNOSTIC 1 EACH STRIP IN SCH ×2 (05:14→17:59)
[2017-06-08 07:42] VITALS: BP 90/73
[2017-06-08] MEDS: GLYCOPYRROLATE 1 MG TABLET GT SCH ×2 (09:47→16:22)
[2017-06-08] MEDS: ASCORBIC ACID 500 MG TABLET GT SCH ×2 (09:47→16:22)
[2017-06-08] MEDS: HYDROGEN PEROXIDE 480 ML BOTTLE TP SCH ×2 (09:47→21:25)
[2017-06-08] MEDS: DOCUSATE SODIUM LIQ 100 MG/10 ML UDC GT SCH ×2 (09:47→16:22)
[2017-06-08] MEDS: FERROUS SULFATE - FOR SA ONLY 330 MG/7.5 ML UDC GT SCH ×3 (09:47→16:22)
[2017-06-08] MEDS: POTASSIUM CHLORIDE 20 MEQ POWDER PACKET GT SCH (09:47)
[2017-06-08] MEDS: PROSOURCE / PROSTAT (PYXIS) 30 ML UDC GT SCH ×2 (09:47→16:22)
[2017-06-08] MEDS: Z GUARD REMEDY 4 OZ OINT TP SCH ×2 (09:47→21:25)
[2017-06-08] MEDS: HEPARIN SODIUM, PORCINE 5000 UNITS/1 ML VIAL SQ SCH ×2 (09:47→21:25)
[2017-06-08] MEDS: BACLOFEN (10 MG) 10 MG TABLET GT SCH ×3 (09:47→16:22)
[2017-06-08] MEDS: LEVETIRACETAM SOL (5 ML) 100 MG/ML UDC GT SCH ×2 (09:47→21:24)
--- NOTE | 2017-06-08 19:00 | NUR ---
Seen by Mya Rodgers NP for DENAE Lucas given at this time.
[2017-06-08] MEDS: MULTIVIT, IRON, MIN NO. 8, FA 1 TAB GT SCH (21:24)
[2017-06-08] MEDS: SENNOSIDES 8.6 MG TABLET GT SCH (21:25)
[2017-06-08] MEDS: INSULIN DETEMIR 100 UNIT/ML CARTRIDGE SQ SCH (21:27)
[2017-06-08 23:35] VITALS: BP 113/65
[2017-06-09] MEDS: IPRATROPIUM NEB FS 0.5 MG/2.5 ML AMPUL.NEB NEB SCH ×4 (01:49→18:59)
[2017-06-09] MEDS: ALBUTEROL FS 2.5 MG/3 ML VIAL.NEB NEB SCH ×4 (01:49→18:59)
[2017-06-09] MEDS: BLOOD SUGAR DIAGNOSTIC 1 EACH STRIP IN SCH ×2 (05:20→18:20)
[2017-06-09] MEDS: POLYVINYL ALCOHOL 15 ML BOTTLE EACHEYE SCH ×3 (05:20→17:56)
[2017-06-09] MEDS: PANTOPRAZOLE 40 MG/PACK PACK GT SCH (05:20)
[2017-06-09] MEDS: INSULIN LISPRO/ASPART 100 UNIT/ML CARTRIDGE SQ PRN (05:21)
[2017-06-09] MEDS: GLYTROL 1,000 ML BAG GT PRN (07:16)
[2017-06-09 07:43] VITALS: BP 98/67
[2017-06-09] MEDS: DOCUSATE SODIUM LIQ 100 MG/10 ML UDC GT SCH ×2 (08:17→17:55)
[2017-06-09] MEDS: LEVETIRACETAM SOL (5 ML) 100 MG/ML UDC GT SCH ×2 (08:18→20:34)
[2017-06-09] MEDS: GLYCOPYRROLATE 1 MG TABLET GT SCH ×2 (08:18→17:55)
[2017-06-09] MEDS: FERROUS SULFATE - FOR SA ONLY 330 MG/7.5 ML UDC GT SCH ×3 (08:18→17:55)
[2017-06-09] MEDS: BACLOFEN (10 MG) 10 MG TABLET GT SCH ×3 (08:19→17:55)
[2017-06-09] MEDS: POTASSIUM CHLORIDE 20 MEQ POWDER PACKET GT SCH (08:19)
[2017-06-09] MEDS: PROSOURCE / PROSTAT (PYXIS) 30 ML UDC GT SCH ×2 (08:19→17:56)
[2017-06-09] MEDS: ASCORBIC ACID 500 MG TABLET GT SCH ×2 (08:20→17:56)
[2017-06-09] MEDS: HEPARIN SODIUM, PORCINE 5000 UNITS/1 ML VIAL SQ SCH ×2 (08:24→20:35)
[2017-06-09] MEDS: Z GUARD REMEDY 4 OZ OINT TP SCH ×2 (09:00→21:31)
[2017-06-09] MEDS: HYDROGEN PEROXIDE 480 ML BOTTLE TP SCH ×2 (10:45→21:00)
[2017-06-09] MEDS: MULTIVIT, IRON, MIN NO. 8, FA 1 TAB GT SCH (20:34)
[2017-06-09] MEDS: SENNOSIDES 8.6 MG TABLET GT SCH (21:31)
[2017-06-09] MEDS: INSULIN DETEMIR 100 UNIT/ML CARTRIDGE SQ SCH (21:32)
[2017-06-09 22:24] VITALS: BP 113/67
[2017-06-10] MEDS: POLYVINYL ALCOHOL 15 ML BOTTLE EACHEYE SCH ×5 (00:14→23:49)
[2017-06-10] MEDS: IPRATROPIUM NEB FS 0.5 MG/2.5 ML AMPUL.NEB NEB SCH ×4 (02:30→19:55)
[2017-06-10] MEDS: ALBUTEROL FS 2.5 MG/3 ML VIAL.NEB NEB SCH ×4 (02:30→19:56)
[2017-06-10] MEDS: BLOOD SUGAR DIAGNOSTIC 1 EACH STRIP IN SCH ×2 (05:36→18:06)
[2017-06-10] MEDS: INSULIN LISPRO/ASPART 100 UNIT/ML CARTRIDGE SQ PRN ×2 (05:36→18:08)
[2017-06-10] MEDS: PANTOPRAZOLE 40 MG/PACK PACK GT SCH (05:36)
[2017-06-10] MEDS: GLYTROL 1,000 ML BAG GT PRN (05:38)
[2017-06-10] MEDS: DOCUSATE SODIUM LIQ 100 MG/10 ML UDC GT SCH ×2 (08:09→17:19)
[2017-06-10] MEDS: LEVETIRACETAM SOL (5 ML) 100 MG/ML UDC GT SCH ×2 (08:10→20:44)
[2017-06-10] MEDS: GLYCOPYRROLATE 1 MG TABLET GT SCH ×2 (08:10→17:19)
[2017-06-10] MEDS: FERROUS SULFATE - FOR SA ONLY 330 MG/7.5 ML UDC GT SCH ×3 (08:10→17:19)
[2017-06-10] MEDS: POTASSIUM CHLORIDE 20 MEQ POWDER PACKET GT SCH (08:10)
[2017-06-10] MEDS: BACLOFEN (10 MG) 10 MG TABLET GT SCH ×3 (08:11→17:19)
[2017-06-10] MEDS: ASCORBIC ACID 500 MG TABLET GT SCH ×2 (08:11→17:19)
[2017-06-10] MEDS: PROSOURCE / PROSTAT (PYXIS) 30 ML UDC GT SCH ×2 (08:11→17:19)
[2017-06-10] MEDS: HEPARIN SODIUM, PORCINE 5000 UNITS/1 ML VIAL SQ SCH ×2 (08:12→20:44)
[2017-06-10] MEDS: Z GUARD REMEDY 4 OZ OINT TP SCH ×2 (08:12→20:44)
[2017-06-10 08:15] VITALS: BP 105/70
[2017-06-10] MEDS: HYDROGEN PEROXIDE 480 ML BOTTLE TP SCH ×2 (10:45→20:44)
[2017-06-10] MEDS: MULTIVIT, IRON, MIN NO. 8, FA 1 TAB GT SCH (20:44)
[2017-06-10] MEDS: POLYETHYLENE GLYCOL 3350 17 GM POWD.PACK GT PRN (20:45)
[2017-06-10] MEDS: SENNOSIDES 8.6 MG TABLET GT SCH (21:09)
[2017-06-10] MEDS: INSULIN DETEMIR 100 UNIT/ML CARTRIDGE SQ SCH (21:09)
[2017-06-10 23:43] VITALS: BP 106/65
[2017-06-11] MEDS: IPRATROPIUM NEB FS 0.5 MG/2.5 ML AMPUL.NEB NEB SCH ×4 (01:11→19:30)
[2017-06-11] MEDS: ALBUTEROL FS 2.5 MG/3 ML VIAL.NEB NEB SCH ×4 (01:11→19:30)
[2017-06-11] MEDS: BISACODYL SUPP (10 MG) 10 MG/SUPP.RECT SUPP.RECT RC PRN (02:23)
[2017-06-11] MEDS: POLYVINYL ALCOHOL 15 ML BOTTLE EACHEYE SCH ×4 (05:25→23:25)
[2017-06-11] MEDS: PANTOPRAZOLE 40 MG/PACK PACK GT SCH (05:25)
[2017-06-11] MEDS: BLOOD SUGAR DIAGNOSTIC 1 EACH STRIP IN SCH ×2 (05:25→17:48)
[2017-06-11] MEDS: INSULIN LISPRO/ASPART 100 UNIT/ML CARTRIDGE SQ PRN ×2 (05:26→17:49)
[2017-06-11] MEDS: GLYTROL 1,000 ML BAG GT PRN (05:36)
[2017-06-11 07:55] VITALS: BP 101/70
[2017-06-11] MEDS: PROSOURCE / PROSTAT (PYXIS) 30 ML UDC GT SCH ×2 (09:00→17:48)
[2017-06-11] MEDS: GLYCOPYRROLATE 1 MG TABLET GT SCH ×2 (09:00→17:48)
[2017-06-11] MEDS: DOCUSATE SODIUM LIQ 100 MG/10 ML UDC GT SCH ×2 (09:00→17:48)
[2017-06-11] MEDS: Z GUARD REMEDY 4 OZ OINT TP SCH ×2 (09:00→20:30)
[2017-06-11] MEDS: HYDROGEN PEROXIDE 480 ML BOTTLE TP SCH ×2 (09:00→20:30)
[2017-06-11] MEDS: ASCORBIC ACID 500 MG TABLET GT SCH ×2 (09:00→17:48)
[2017-06-11] MEDS: FERROUS SULFATE - FOR SA ONLY 330 MG/7.5 ML UDC GT SCH ×3 (09:00→17:48)
[2017-06-11] MEDS: POTASSIUM CHLORIDE 20 MEQ POWDER PACKET GT SCH (09:00)
[2017-06-11] MEDS: HEPARIN SODIUM, PORCINE 5000 UNITS/1 ML VIAL SQ SCH ×2 (09:00→20:30)
[2017-06-11] MEDS: LEVETIRACETAM SOL (5 ML) 100 MG/ML UDC GT SCH ×2 (09:00→20:29)
[2017-06-11] MEDS: BACLOFEN (10 MG) 10 MG TABLET GT SCH ×3 (09:00→17:48)
--- NOTE | 2017-06-11 11:04 | NUR ---
Seen and examined by Dr. Bullard, NNO given.
[2017-06-11 19:50] VITALS: BP 106/65
[2017-06-11] MEDS: MULTIVIT, IRON, MIN NO. 8, FA 1 TAB GT SCH (20:29)
[2017-06-11] MEDS: INSULIN DETEMIR 100 UNIT/ML CARTRIDGE SQ SCH (22:09)
[2017-06-11] MEDS: SENNOSIDES 8.6 MG TABLET GT SCH (22:15)
[2017-06-12] MEDS: IPRATROPIUM NEB FS 0.5 MG/2.5 ML AMPUL.NEB NEB SCH ×4 (01:05→20:16)
[2017-06-12] MEDS: ALBUTEROL FS 2.5 MG/3 ML VIAL.NEB NEB SCH ×4 (01:05→20:16)
[2017-06-12] MEDS: POLYVINYL ALCOHOL 15 ML BOTTLE EACHEYE SCH ×3 (05:17→17:46)
[2017-06-12] MEDS: PANTOPRAZOLE 40 MG/PACK PACK GT SCH (05:17)
[2017-06-12] MEDS: INSULIN LISPRO/ASPART 100 UNIT/ML CARTRIDGE SQ PRN (05:18)
[2017-06-12] MEDS: GLYTROL 1,000 ML BAG GT PRN (05:18)
[2017-06-12] MEDS: BLOOD SUGAR DIAGNOSTIC 1 EACH STRIP IN SCH ×2 (05:18→17:46)
[2017-06-12 07:37] VITALS: BP 98/65
[2017-06-12] MEDS: FERROUS SULFATE - FOR SA ONLY 330 MG/7.5 ML UDC GT SCH ×3 (09:00→17:46)
[2017-06-12] MEDS: DOCUSATE SODIUM LIQ 100 MG/10 ML UDC GT SCH ×2 (09:00→17:46)
[2017-06-12] MEDS: GLYCOPYRROLATE 1 MG TABLET GT SCH ×2 (09:00→17:46)
[2017-06-12] MEDS: BACLOFEN (10 MG) 10 MG TABLET GT SCH ×3 (09:00→17:46)
[2017-06-12] MEDS: PROSOURCE / PROSTAT (PYXIS) 30 ML UDC GT SCH ×2 (09:00→17:46)
[2017-06-12] MEDS: Z GUARD REMEDY 4 OZ OINT TP SCH ×2 (09:00→20:55)
[2017-06-12] MEDS: LEVETIRACETAM SOL (5 ML) 100 MG/ML UDC GT SCH ×2 (09:00→20:54)
[2017-06-12] MEDS: ASCORBIC ACID 500 MG TABLET GT SCH ×2 (09:00→17:46)
[2017-06-12] MEDS: HEPARIN SODIUM, PORCINE 5000 UNITS/1 ML VIAL SQ SCH ×2 (09:00→20:55)
[2017-06-12] MEDS: HYDROGEN PEROXIDE 480 ML BOTTLE TP SCH ×2 (09:00→20:55)
[2017-06-12] MEDS: POTASSIUM CHLORIDE 20 MEQ POWDER PACKET GT SCH (09:00)
[2017-06-12] MEDS: MULTIVIT, IRON, MIN NO. 8, FA 1 TAB GT SCH (20:55)
[2017-06-12] MEDS: SENNOSIDES 8.6 MG TABLET GT SCH (21:05)
[2017-06-12] MEDS: INSULIN DETEMIR 100 UNIT/ML CARTRIDGE SQ SCH (21:06)
[2017-06-12 21:37] VITALS: BP 104/71
[2017-06-13] MEDS: POLYVINYL ALCOHOL 15 ML BOTTLE EACHEYE SCH ×4 (00:07→17:33)
[2017-06-13] MEDS: ALBUTEROL FS 2.5 MG/3 ML VIAL.NEB NEB SCH ×4 (02:02→19:25)
[2017-06-13] MEDS: IPRATROPIUM NEB FS 0.5 MG/2.5 ML AMPUL.NEB NEB SCH ×4 (02:02→19:25)
[2017-06-13] MEDS: PANTOPRAZOLE 40 MG/PACK PACK GT SCH (05:33)
[2017-06-13] MEDS: BLOOD SUGAR DIAGNOSTIC 1 EACH STRIP IN SCH ×2 (05:33→17:33)
[2017-06-13] MEDS: PROSOURCE / PROSTAT (PYXIS) 30 ML UDC GT SCH ×2 (08:33→17:33)
[2017-06-13] MEDS: ASCORBIC ACID 500 MG TABLET GT SCH ×2 (08:33→17:33)
[2017-06-13] MEDS: POTASSIUM CHLORIDE 20 MEQ POWDER PACKET GT SCH (08:33)
[2017-06-13] MEDS: LEVETIRACETAM SOL (5 ML) 100 MG/ML UDC GT SCH ×2 (08:33→21:14)
[2017-06-13] MEDS: DOCUSATE SODIUM LIQ 100 MG/10 ML UDC GT SCH ×2 (08:33→17:33)
[2017-06-13] MEDS: BACLOFEN (10 MG) 10 MG TABLET GT SCH ×3 (08:33→17:33)
[2017-06-13] MEDS: FERROUS SULFATE - FOR SA ONLY 330 MG/7.5 ML UDC GT SCH ×3 (08:33→17:33)
[2017-06-13] MEDS: GLYCOPYRROLATE 1 MG TABLET GT SCH ×2 (08:33→17:33)
[2017-06-13] MEDS: HEPARIN SODIUM, PORCINE 5000 UNITS/1 ML VIAL SQ SCH ×2 (08:34→21:14)
[2017-06-13] MEDS: HYDROGEN PEROXIDE 480 ML BOTTLE TP SCH ×2 (09:00→21:14)
[2017-06-13] MEDS: Z GUARD REMEDY 4 OZ OINT TP SCH ×2 (09:00→21:14)
[2017-06-13 11:01] VITALS: BP 104/69
[2017-06-13] MEDS: INSULIN LISPRO/ASPART 100 UNIT/ML CARTRIDGE SQ PRN (17:33)
[2017-06-13 20:01] VITALS: BP 119/73
[2017-06-13] MEDS: SENNOSIDES 8.6 MG TABLET GT SCH (21:14)
[2017-06-13] MEDS: MULTIVIT, IRON, MIN NO. 8, FA 1 TAB GT SCH (21:14)
[2017-06-13] MEDS: INSULIN DETEMIR 100 UNIT/ML CARTRIDGE SQ SCH (21:15)
[2017-06-14] MEDS: POLYVINYL ALCOHOL 15 ML BOTTLE EACHEYE SCH ×5 (00:24→23:49)
[2017-06-14] MEDS: ALBUTEROL FS 2.5 MG/3 ML VIAL.NEB NEB SCH ×4 (01:39→19:50)
[2017-06-14] MEDS: IPRATROPIUM NEB FS 0.5 MG/2.5 ML AMPUL.NEB NEB SCH ×4 (01:39→19:50)
[2017-06-14] MEDS: PANTOPRAZOLE 40 MG/PACK PACK GT SCH (05:40)
[2017-06-14] MEDS: BLOOD SUGAR DIAGNOSTIC 1 EACH STRIP IN SCH ×2 (05:40→17:49)
[2017-06-14 08:08] VITALS: BP 105/73
[2017-06-14] MEDS: DOCUSATE SODIUM LIQ 100 MG/10 ML UDC GT SCH ×2 (09:02→17:47)
[2017-06-14] MEDS: FERROUS SULFATE - FOR SA ONLY 330 MG/7.5 ML UDC GT SCH ×3 (09:02→17:48)
[2017-06-14] MEDS: POTASSIUM CHLORIDE 20 MEQ POWDER PACKET GT SCH (09:03)
[2017-06-14] MEDS: BACLOFEN (10 MG) 10 MG TABLET GT SCH ×3 (09:03→17:48)
[2017-06-14] MEDS: GLYCOPYRROLATE 1 MG TABLET GT SCH ×2 (09:03→17:48)
[2017-06-14] MEDS: LEVETIRACETAM SOL (5 ML) 100 MG/ML UDC GT SCH ×2 (09:03→21:09)
[2017-06-14] MEDS: Z GUARD REMEDY 4 OZ OINT TP SCH ×2 (09:04→21:10)
[2017-06-14] MEDS: HEPARIN SODIUM, PORCINE 5000 UNITS/1 ML VIAL SQ SCH ×2 (09:04→21:10)
[2017-06-14] MEDS: PROSOURCE / PROSTAT (PYXIS) 30 ML UDC GT SCH ×2 (09:04→17:48)
[2017-06-14] MEDS: ASCORBIC ACID 500 MG TABLET GT SCH ×2 (09:04→17:48)
[2017-06-14] MEDS: HYDROGEN PEROXIDE 480 ML BOTTLE TP SCH ×2 (10:45→21:10)
[2017-06-14 20:06] VITALS: BP 103/49
[2017-06-14] MEDS: MULTIVIT, IRON, MIN NO. 8, FA 1 TAB GT SCH (21:09)
[2017-06-14] MEDS: SENNOSIDES 8.6 MG TABLET GT SCH (21:10)
[2017-06-14] MEDS: INSULIN DETEMIR 100 UNIT/ML CARTRIDGE SQ SCH (21:10)
[2017-06-15] MEDS: ALBUTEROL FS 2.5 MG/3 ML VIAL.NEB NEB SCH ×4 (01:42→19:44)
[2017-06-15] MEDS: IPRATROPIUM NEB FS 0.5 MG/2.5 ML AMPUL.NEB NEB SCH ×4 (01:42→19:44)
[2017-06-15] MEDS: BLOOD SUGAR DIAGNOSTIC 1 EACH STRIP IN SCH ×2 (05:32→17:00)
[2017-06-15] MEDS: PANTOPRAZOLE 40 MG/PACK PACK GT SCH (05:32)
[2017-06-15] MEDS: POLYVINYL ALCOHOL 15 ML BOTTLE EACHEYE SCH ×4 (05:32→23:55)
[2017-06-15 07:45] VITALS: BP 98/73
[2017-06-15] MEDS: GLYCOPYRROLATE 1 MG TABLET GT SCH ×2 (09:56→16:42)
[2017-06-15] MEDS: POTASSIUM CHLORIDE 20 MEQ POWDER PACKET GT SCH (09:56)
[2017-06-15] MEDS: DOCUSATE SODIUM LIQ 100 MG/10 ML UDC GT SCH ×2 (09:56→16:44)
[2017-06-15] MEDS: LEVETIRACETAM SOL (5 ML) 100 MG/ML UDC GT SCH ×2 (09:56→21:14)
[2017-06-15] MEDS: FERROUS SULFATE - FOR SA ONLY 330 MG/7.5 ML UDC GT SCH ×3 (09:56→16:44)
[2017-06-15] MEDS: PROSOURCE / PROSTAT (PYXIS) 30 ML UDC GT SCH ×2 (09:57→16:45)
[2017-06-15] MEDS: BACLOFEN (10 MG) 10 MG TABLET GT SCH ×3 (09:57→16:42)
[2017-06-15] MEDS: HYDROGEN PEROXIDE 480 ML BOTTLE TP SCH ×2 (09:58→21:15)
[2017-06-15] MEDS: HEPARIN SODIUM, PORCINE 5000 UNITS/1 ML VIAL SQ SCH ×2 (09:58→21:14)
[2017-06-15] MEDS: Z GUARD REMEDY 4 OZ OINT TP SCH ×2 (09:58→21:15)
[2017-06-15] MEDS: ASCORBIC ACID 500 MG TABLET GT SCH ×2 (09:59→16:45)
[2017-06-15] MEDS: POLYETHYLENE GLYCOL 3350 17 GM POWD.PACK GT PRN (16:59)
[2017-06-15] MEDS: INSULIN LISPRO/ASPART 100 UNIT/ML CARTRIDGE SQ PRN (17:01)
[2017-06-15 19:51] VITALS: BP 92/55
[2017-06-15] MEDS: SENNOSIDES 8.6 MG TABLET GT SCH (21:14)
[2017-06-15] MEDS: MULTIVIT, IRON, MIN NO. 8, FA 1 TAB GT SCH (21:14)
[2017-06-15] MEDS: INSULIN DETEMIR 100 UNIT/ML CARTRIDGE SQ SCH (21:15)
[2017-06-16] MEDS: ALBUTEROL FS 2.5 MG/3 ML VIAL.NEB NEB SCH ×4 (01:30→19:20)
[2017-06-16] MEDS: IPRATROPIUM NEB FS 0.5 MG/2.5 ML AMPUL.NEB NEB SCH ×4 (01:30→19:20)
[2017-06-16] MEDS: PANTOPRAZOLE 40 MG/PACK PACK GT SCH (05:25)
[2017-06-16] MEDS: POLYVINYL ALCOHOL 15 ML BOTTLE EACHEYE SCH ×3 (05:25→17:37)
[2017-06-16] MEDS: BLOOD SUGAR DIAGNOSTIC 1 EACH STRIP IN SCH ×2 (05:27→17:37)
[2017-06-16] MEDS: GLYTROL 1,000 ML BAG GT PRN (05:27)
[2017-06-16] MEDS: INSULIN LISPRO/ASPART 100 UNIT/ML CARTRIDGE SQ PRN ×2 (05:28→17:40)
[2017-06-16] MEDS: BISACODYL SUPP (10 MG) 10 MG/SUPP.RECT SUPP.RECT RC PRN (05:29)
--- NOTE | 2017-06-16 05:30 | NUR ---
Miralax ineffective. Dulcolax suppository inserted. No distress noted. good hydration provided. will continue to monitor.
[2017-06-16 07:37] VITALS: BP 94/60
[2017-06-16] MEDS: BACLOFEN (10 MG) 10 MG TABLET GT SCH ×3 (09:00→17:36)
[2017-06-16] MEDS: HYDROGEN PEROXIDE 480 ML BOTTLE TP SCH ×2 (09:00→21:48)
[2017-06-16] MEDS: ASCORBIC ACID 500 MG TABLET GT SCH ×2 (09:00→17:36)
[2017-06-16] MEDS: GLYCOPYRROLATE 1 MG TABLET GT SCH ×2 (09:00→17:36)
[2017-06-16] MEDS: HEPARIN SODIUM, PORCINE 5000 UNITS/1 ML VIAL SQ SCH ×2 (09:00→21:48)
[2017-06-16] MEDS: DOCUSATE SODIUM LIQ 100 MG/10 ML UDC GT SCH ×2 (09:00→17:36)
[2017-06-16] MEDS: Z GUARD REMEDY 4 OZ OINT TP SCH ×2 (09:00→21:48)
[2017-06-16] MEDS: LEVETIRACETAM SOL (5 ML) 100 MG/ML UDC GT SCH ×2 (09:00→21:47)
[2017-06-16] MEDS: FERROUS SULFATE - FOR SA ONLY 330 MG/7.5 ML UDC GT SCH ×3 (09:00→17:36)
[2017-06-16] MEDS: PROSOURCE / PROSTAT (PYXIS) 30 ML UDC GT SCH ×2 (09:00→17:36)
[2017-06-16] MEDS: POTASSIUM CHLORIDE 20 MEQ POWDER PACKET GT SCH (09:00)
[2017-06-16 21:24] VITALS: BP 102/72
[2017-06-16] MEDS: MULTIVIT, IRON, MIN NO. 8, FA 1 TAB GT SCH (21:47)
[2017-06-16] MEDS: SENNOSIDES 8.6 MG TABLET GT SCH (21:48)
[2017-06-16] MEDS: INSULIN DETEMIR 100 UNIT/ML CARTRIDGE SQ SCH (21:49)
[2017-06-17] MEDS: POLYVINYL ALCOHOL 15 ML BOTTLE EACHEYE SCH ×5 (00:55→23:44)
[2017-06-17] MEDS: IPRATROPIUM NEB FS 0.5 MG/2.5 ML AMPUL.NEB NEB SCH ×4 (01:31→19:39)
[2017-06-17] MEDS: ALBUTEROL FS 2.5 MG/3 ML VIAL.NEB NEB SCH ×4 (01:31→19:39)
[2017-06-17] MEDS: PANTOPRAZOLE 40 MG/PACK PACK GT SCH (05:04)
[2017-06-17] MEDS: INSULIN LISPRO/ASPART 100 UNIT/ML CARTRIDGE SQ PRN ×2 (05:04→18:07)
[2017-06-17] MEDS: BLOOD SUGAR DIAGNOSTIC 1 EACH STRIP IN SCH ×2 (05:04→18:01)
[2017-06-17] MEDS: GLYTROL 1,000 ML BAG GT PRN (05:05)
[2017-06-17 07:31] VITALS: BP 114/67
[2017-06-17] MEDS: LEVETIRACETAM SOL (5 ML) 100 MG/ML UDC GT SCH ×2 (08:04→21:16)
[2017-06-17] MEDS: Z GUARD REMEDY 4 OZ OINT TP SCH ×2 (08:04→21:17)
[2017-06-17] MEDS: HYDROGEN PEROXIDE 480 ML BOTTLE TP SCH ×2 (08:04→21:17)
[2017-06-17] MEDS: GLYCOPYRROLATE 1 MG TABLET GT SCH ×2 (08:04→16:42)
[2017-06-17] MEDS: ASCORBIC ACID 500 MG TABLET GT SCH ×2 (08:04→16:41)
[2017-06-17] MEDS: POTASSIUM CHLORIDE 20 MEQ POWDER PACKET GT SCH (08:04)
[2017-06-17] MEDS: BACLOFEN (10 MG) 10 MG TABLET GT SCH ×3 (08:04→16:42)
[2017-06-17] MEDS: PROSOURCE / PROSTAT (PYXIS) 30 ML UDC GT SCH ×2 (08:04→16:41)
[2017-06-17] MEDS: DOCUSATE SODIUM LIQ 100 MG/10 ML UDC GT SCH ×2 (08:05→16:41)
[2017-06-17] MEDS: FERROUS SULFATE - FOR SA ONLY 330 MG/7.5 ML UDC GT SCH ×3 (08:05→16:41)
[2017-06-17] MEDS: HEPARIN SODIUM, PORCINE 5000 UNITS/1 ML VIAL SQ SCH ×2 (08:07→21:17)
[2017-06-17 19:45] VITALS: BP 105/65
[2017-06-17] MEDS: MULTIVIT, IRON, MIN NO. 8, FA 1 TAB GT SCH (21:16)
[2017-06-17] MEDS: INSULIN DETEMIR 100 UNIT/ML CARTRIDGE SQ SCH (21:17)
[2017-06-17] MEDS: SENNOSIDES 8.6 MG TABLET GT SCH (21:17)
[2017-06-18] MEDS: ALBUTEROL FS 2.5 MG/3 ML VIAL.NEB NEB SCH ×4 (01:14→19:07)
[2017-06-18] MEDS: IPRATROPIUM NEB FS 0.5 MG/2.5 ML AMPUL.NEB NEB SCH ×4 (01:14→19:08)
[2017-06-18] MEDS: POLYVINYL ALCOHOL 15 ML BOTTLE EACHEYE SCH ×3 (05:45→17:38)
[2017-06-18] MEDS: PANTOPRAZOLE 40 MG/PACK PACK GT SCH (05:45)
[2017-06-18] MEDS: GLYTROL 1,000 ML BAG GT PRN (05:45)
[2017-06-18] MEDS: INSULIN LISPRO/ASPART 100 UNIT/ML CARTRIDGE SQ PRN ×2 (06:13→17:57)
[2017-06-18] MEDS: BLOOD SUGAR DIAGNOSTIC 1 EACH STRIP IN SCH ×2 (06:13→17:56)
[2017-06-18] MEDS: ASCORBIC ACID 500 MG TABLET GT SCH ×2 (08:16→17:38)
[2017-06-18] MEDS: DOCUSATE SODIUM LIQ 100 MG/10 ML UDC GT SCH ×2 (08:16→17:38)
[2017-06-18] MEDS: POTASSIUM CHLORIDE 20 MEQ POWDER PACKET GT SCH (08:16)
[2017-06-18] MEDS: LEVETIRACETAM SOL (5 ML) 100 MG/ML UDC GT SCH ×2 (08:16→21:17)
[2017-06-18] MEDS: FERROUS SULFATE - FOR SA ONLY 330 MG/7.5 ML UDC GT SCH ×3 (08:16→17:38)
[2017-06-18] MEDS: BACLOFEN (10 MG) 10 MG TABLET GT SCH ×3 (08:16→17:38)
[2017-06-18] MEDS: GLYCOPYRROLATE 1 MG TABLET GT SCH ×2 (08:16→17:38)
[2017-06-18] MEDS: PROSOURCE / PROSTAT (PYXIS) 30 ML UDC GT SCH ×2 (08:16→17:38)
[2017-06-18] MEDS: HEPARIN SODIUM, PORCINE 5000 UNITS/1 ML VIAL SQ SCH ×2 (08:17→21:18)
[2017-06-18] MEDS: HYDROGEN PEROXIDE 480 ML BOTTLE TP SCH ×2 (09:00→21:18)
[2017-06-18] MEDS: Z GUARD REMEDY 4 OZ OINT TP SCH ×2 (09:00→21:18)
[2017-06-18 12:51] VITALS: BP 93/59
[2017-06-18 20:33] VITALS: BP 103/62
[2017-06-18] MEDS: MULTIVIT, IRON, MIN NO. 8, FA 1 TAB GT SCH (21:17)
[2017-06-18] MEDS: SENNOSIDES 8.6 MG TABLET GT SCH (21:18)
[2017-06-18] MEDS: INSULIN DETEMIR 100 UNIT/ML CARTRIDGE SQ SCH (21:18)
[2017-06-19] MEDS: POLYVINYL ALCOHOL 15 ML BOTTLE EACHEYE SCH ×5 (00:48→23:46)
[2017-06-19] MEDS: IPRATROPIUM NEB FS 0.5 MG/2.5 ML AMPUL.NEB NEB SCH ×4 (01:15→20:29)
[2017-06-19] MEDS: ALBUTEROL FS 2.5 MG/3 ML VIAL.NEB NEB SCH ×4 (01:15→20:29)
[2017-06-19] MEDS: BLOOD SUGAR DIAGNOSTIC 1 EACH STRIP IN SCH ×2 (05:43→17:55)
[2017-06-19] MEDS: PANTOPRAZOLE 40 MG/PACK PACK GT SCH (05:43)
[2017-06-19] MEDS: INSULIN LISPRO/ASPART 100 UNIT/ML CARTRIDGE SQ PRN (05:43)
[2017-06-19] MEDS: GLYTROL 1,000 ML BAG GT PRN (05:45)
[2017-06-19 08:00] VITALS: BP 106/56
[2017-06-19] MEDS: GLYCOPYRROLATE 1 MG TABLET GT SCH ×2 (09:00→17:55)
[2017-06-19] MEDS: DOCUSATE SODIUM LIQ 100 MG/10 ML UDC GT SCH ×2 (09:00→17:55)
[2017-06-19] MEDS: HYDROGEN PEROXIDE 480 ML BOTTLE TP SCH ×2 (09:00→21:07)
[2017-06-19] MEDS: POTASSIUM CHLORIDE 20 MEQ POWDER PACKET GT SCH (09:00)
[2017-06-19] MEDS: BACLOFEN (10 MG) 10 MG TABLET GT SCH ×3 (09:00→17:55)
[2017-06-19] MEDS: LEVETIRACETAM SOL (5 ML) 100 MG/ML UDC GT SCH ×2 (09:00→21:07)
[2017-06-19] MEDS: Z GUARD REMEDY 4 OZ OINT TP SCH ×2 (09:00→21:07)
[2017-06-19] MEDS: FERROUS SULFATE - FOR SA ONLY 330 MG/7.5 ML UDC GT SCH ×3 (09:00→17:55)
[2017-06-19] MEDS: PROSOURCE / PROSTAT (PYXIS) 30 ML UDC GT SCH ×2 (09:00→17:55)
[2017-06-19] MEDS: HEPARIN SODIUM, PORCINE 5000 UNITS/1 ML VIAL SQ SCH ×2 (09:00→21:07)
[2017-06-19] MEDS: ASCORBIC ACID 500 MG TABLET GT SCH ×2 (09:00→17:55)
[2017-06-19 19:28] VITALS: BP 120/89
[2017-06-19] MEDS: SENNOSIDES 8.6 MG TABLET GT SCH (21:07)
[2017-06-19] MEDS: MULTIVIT, IRON, MIN NO. 8, FA 1 TAB GT SCH (21:07)
[2017-06-19] MEDS: INSULIN DETEMIR 100 UNIT/ML CARTRIDGE SQ SCH (21:08)
[2017-06-20] MEDS: IPRATROPIUM NEB FS 0.5 MG/2.5 ML AMPUL.NEB NEB SCH ×4 (01:07→19:30)
[2017-06-20] MEDS: ALBUTEROL FS 2.5 MG/3 ML VIAL.NEB NEB SCH ×4 (01:07→19:30)
[2017-06-20] MEDS: POLYVINYL ALCOHOL 15 ML BOTTLE EACHEYE SCH ×3 (05:39→17:01)
[2017-06-20] MEDS: PANTOPRAZOLE 40 MG/PACK PACK GT SCH (05:39)
[2017-06-20] MEDS: BLOOD SUGAR DIAGNOSTIC 1 EACH STRIP IN SCH ×2 (05:39→17:47)
[2017-06-20 07:37] VITALS: BP 108/70
[2017-06-20] MEDS: FERROUS SULFATE - FOR SA ONLY 330 MG/7.5 ML UDC GT SCH ×3 (08:15→16:49)
[2017-06-20] MEDS: LEVETIRACETAM SOL (5 ML) 100 MG/ML UDC GT SCH ×2 (08:15→21:09)
[2017-06-20] MEDS: BACLOFEN (10 MG) 10 MG TABLET GT SCH ×3 (08:15→16:49)
[2017-06-20] MEDS: GLYCOPYRROLATE 1 MG TABLET GT SCH ×2 (08:15→16:49)
[2017-06-20] MEDS: POTASSIUM CHLORIDE 20 MEQ POWDER PACKET GT SCH (08:15)
[2017-06-20] MEDS: PROSOURCE / PROSTAT (PYXIS) 30 ML UDC GT SCH ×2 (08:15→16:49)
[2017-06-20] MEDS: DOCUSATE SODIUM LIQ 100 MG/10 ML UDC GT SCH ×2 (08:15→16:49)
[2017-06-20] MEDS: ASCORBIC ACID 500 MG TABLET GT SCH ×2 (08:15→16:49)
[2017-06-20] MEDS: HYDROGEN PEROXIDE 480 ML BOTTLE TP SCH ×2 (08:16→21:09)
[2017-06-20] MEDS: Z GUARD REMEDY 4 OZ OINT TP SCH ×2 (08:16→21:09)
[2017-06-20] MEDS: HEPARIN SODIUM, PORCINE 5000 UNITS/1 ML VIAL SQ SCH ×2 (08:16→21:09)
[2017-06-20] MEDS: INSULIN LISPRO/ASPART 100 UNIT/ML CARTRIDGE SQ PRN (17:47)
[2017-06-20 19:49] VITALS: BP 108/64
[2017-06-20] MEDS: SENNOSIDES 8.6 MG TABLET GT SCH (21:09)
[2017-06-20] MEDS: MULTIVIT, IRON, MIN NO. 8, FA 1 TAB GT SCH (21:09)
[2017-06-20] MEDS: INSULIN DETEMIR 100 UNIT/ML CARTRIDGE SQ SCH (21:10)
[2017-06-21] MEDS: POLYVINYL ALCOHOL 15 ML BOTTLE EACHEYE SCH ×5 (00:17→23:42)
[2017-06-21] MEDS: IPRATROPIUM NEB FS 0.5 MG/2.5 ML AMPUL.NEB NEB SCH ×4 (02:17→19:29)
[2017-06-21] MEDS: ALBUTEROL FS 2.5 MG/3 ML VIAL.NEB NEB SCH ×4 (02:17→19:29)
[2017-06-21] MEDS: BLOOD SUGAR DIAGNOSTIC 1 EACH STRIP IN SCH ×2 (05:37→18:07)
[2017-06-21] MEDS: PANTOPRAZOLE 40 MG/PACK PACK GT SCH (05:37)
[2017-06-21 07:54] VITALS: BP_SYST 101; BP_DIAS 52; BP_DIAS 64
[2017-06-21] MEDS: PROSOURCE / PROSTAT (PYXIS) 30 ML UDC GT SCH ×2 (08:13→16:47)
[2017-06-21] MEDS: ASCORBIC ACID 500 MG TABLET GT SCH ×2 (08:13→16:47)
[2017-06-21] MEDS: HYDROGEN PEROXIDE 480 ML BOTTLE TP SCH ×2 (08:13→20:47)
[2017-06-21] MEDS: GLYCOPYRROLATE 1 MG TABLET GT SCH ×2 (08:13→16:47)
[2017-06-21] MEDS: DOCUSATE SODIUM LIQ 100 MG/10 ML UDC GT SCH ×2 (08:13→16:47)
[2017-06-21] MEDS: HEPARIN SODIUM, PORCINE 5000 UNITS/1 ML VIAL SQ SCH ×2 (08:13→20:46)
[2017-06-21] MEDS: POTASSIUM CHLORIDE 20 MEQ POWDER PACKET GT SCH (08:13)
[2017-06-21] MEDS: BACLOFEN (10 MG) 10 MG TABLET GT SCH ×3 (08:13→16:47)
[2017-06-21] MEDS: LEVETIRACETAM SOL (5 ML) 100 MG/ML UDC GT SCH ×2 (08:13→20:44)
[2017-06-21] MEDS: Z GUARD REMEDY 4 OZ OINT TP SCH ×2 (08:13→20:48)
[2017-06-21] MEDS: FERROUS SULFATE - FOR SA ONLY 330 MG/7.5 ML UDC GT SCH ×3 (08:13→16:47)
[2017-06-21] MEDS: INSULIN LISPRO/ASPART 100 UNIT/ML CARTRIDGE SQ PRN (18:07)
[2017-06-21 20:05] VITALS: BP 93/59
[2017-06-21] MEDS: MULTIVIT, IRON, MIN NO. 8, FA 1 TAB GT SCH (20:44)
[2017-06-21] MEDS: SENNOSIDES 8.6 MG TABLET GT SCH (22:39)
[2017-06-21] MEDS: INSULIN DETEMIR 100 UNIT/ML CARTRIDGE SQ SCH (22:47)
[2017-06-22] MEDS: IPRATROPIUM NEB FS 0.5 MG/2.5 ML AMPUL.NEB NEB SCH ×4 (02:06→19:15)
[2017-06-22] MEDS: ALBUTEROL FS 2.5 MG/3 ML VIAL.NEB NEB SCH ×4 (02:06→19:15)
[2017-06-22] MEDS: BLOOD SUGAR DIAGNOSTIC 1 EACH STRIP IN SCH ×2 (05:42→17:32)
[2017-06-22] MEDS: POLYVINYL ALCOHOL 15 ML BOTTLE EACHEYE SCH ×4 (05:42→23:33)
[2017-06-22] MEDS: PANTOPRAZOLE 40 MG/PACK PACK GT SCH (05:42)
[2017-06-22] MEDS: GLYTROL 1,000 ML BAG GT PRN (06:29)
[2017-06-22 08:00] VITALS: BP 114/76
[2017-06-22] MEDS: LEVETIRACETAM SOL (5 ML) 100 MG/ML UDC GT SCH ×2 (09:15→21:09)
[2017-06-22] MEDS: GLYCOPYRROLATE 1 MG TABLET GT SCH ×2 (09:15→16:48)
[2017-06-22] MEDS: ASCORBIC ACID 500 MG TABLET GT SCH ×2 (09:15→16:48)
[2017-06-22] MEDS: Z GUARD REMEDY 4 OZ OINT TP SCH ×2 (09:15→21:12)
[2017-06-22] MEDS: HYDROGEN PEROXIDE 480 ML BOTTLE TP SCH ×2 (09:15→21:11)
[2017-06-22] MEDS: FERROUS SULFATE - FOR SA ONLY 330 MG/7.5 ML UDC GT SCH ×3 (09:15→16:47)
[2017-06-22] MEDS: PROSOURCE / PROSTAT (PYXIS) 30 ML UDC GT SCH ×2 (09:15→16:48)
[2017-06-22] MEDS: POTASSIUM CHLORIDE 20 MEQ POWDER PACKET GT SCH (09:15)
[2017-06-22] MEDS: HEPARIN SODIUM, PORCINE 5000 UNITS/1 ML VIAL SQ SCH ×2 (09:15→21:11)
[2017-06-22] MEDS: DOCUSATE SODIUM LIQ 100 MG/10 ML UDC GT SCH ×2 (09:15→16:47)
[2017-06-22] MEDS: BACLOFEN (10 MG) 10 MG TABLET GT SCH ×3 (09:15→16:48)
[2017-06-22] MEDS: MULTIVIT, IRON, MIN NO. 8, FA 1 TAB GT SCH (21:09)
[2017-06-22] MEDS: INSULIN DETEMIR 100 UNIT/ML CARTRIDGE SQ SCH (21:12)
[2017-06-22] MEDS: SENNOSIDES 8.6 MG TABLET GT SCH (21:12)
[2017-06-22] MEDS: POLYETHYLENE GLYCOL 3350 17 GM POWD.PACK GT PRN (21:12)
[2017-06-22 22:31] VITALS: BP 101/57
[2017-06-23] MEDS: ALBUTEROL FS 2.5 MG/3 ML VIAL.NEB NEB SCH ×4 (00:43→20:28)
[2017-06-23] MEDS: IPRATROPIUM NEB FS 0.5 MG/2.5 ML AMPUL.NEB NEB SCH ×4 (00:43→20:28)
[2017-06-23] MEDS: GLYTROL 1,000 ML BAG GT PRN (05:15)
[2017-06-23] MEDS: PANTOPRAZOLE 40 MG/PACK PACK GT SCH (05:15)
[2017-06-23] MEDS: BLOOD SUGAR DIAGNOSTIC 1 EACH STRIP IN SCH ×2 (05:15→17:14)
[2017-06-23] MEDS: POLYVINYL ALCOHOL 15 ML BOTTLE EACHEYE SCH ×4 (05:15→23:19)
[2017-06-23] MEDS: INSULIN LISPRO/ASPART 100 UNIT/ML CARTRIDGE SQ PRN (05:15)
[2017-06-23] MEDS: BISACODYL SUPP (10 MG) 10 MG/SUPP.RECT SUPP.RECT RC PRN (06:30)
[2017-06-23 07:42] VITALS: BP 100/63
[2017-06-23] MEDS: POTASSIUM CHLORIDE 20 MEQ POWDER PACKET GT SCH (09:42)
[2017-06-23] MEDS: ASCORBIC ACID 500 MG TABLET GT SCH ×2 (09:42→17:14)
[2017-06-23] MEDS: GLYCOPYRROLATE 1 MG TABLET GT SCH ×2 (09:42→17:14)
[2017-06-23] MEDS: DOCUSATE SODIUM LIQ 100 MG/10 ML UDC GT SCH ×2 (09:42→17:14)
[2017-06-23] MEDS: BACLOFEN (10 MG) 10 MG TABLET GT SCH ×3 (09:42→17:14)
[2017-06-23] MEDS: PROSOURCE / PROSTAT (PYXIS) 30 ML UDC GT SCH ×2 (09:42→17:14)
[2017-06-23] MEDS: FERROUS SULFATE - FOR SA ONLY 330 MG/7.5 ML UDC GT SCH ×3 (09:42→17:14)
[2017-06-23] MEDS: LEVETIRACETAM SOL (5 ML) 100 MG/ML UDC GT SCH ×2 (09:42→20:10)
[2017-06-23] MEDS: HYDROGEN PEROXIDE 480 ML BOTTLE TP SCH ×2 (09:43→20:11)
[2017-06-23] MEDS: Z GUARD REMEDY 4 OZ OINT TP SCH ×2 (09:43→20:11)
[2017-06-23] MEDS: HEPARIN SODIUM, PORCINE 5000 UNITS/1 ML VIAL SQ SCH ×2 (09:43→20:11)
--- NOTE | 2017-06-23 16:56 | NUR ---
RT changed the tracheostomy tube of the resident,minimal bleeding noticed.continue to monitor.
[2017-06-23 19:55] VITALS: BP 114/69
[2017-06-23] MEDS: MULTIVIT, IRON, MIN NO. 8, FA 1 TAB GT SCH (20:10)
[2017-06-23] MEDS: SENNOSIDES 8.6 MG TABLET GT SCH (21:13)
[2017-06-23] MEDS: INSULIN DETEMIR 100 UNIT/ML CARTRIDGE SQ SCH (21:13)
[2017-06-24] MEDS: IPRATROPIUM NEB FS 0.5 MG/2.5 ML AMPUL.NEB NEB SCH ×4 (01:30→19:30)
[2017-06-24] MEDS: ALBUTEROL FS 2.5 MG/3 ML VIAL.NEB NEB SCH ×4 (01:30→19:30)
[2017-06-24] MEDS: PANTOPRAZOLE 40 MG/PACK PACK GT SCH (05:28)
[2017-06-24] MEDS: POLYETHYLENE GLYCOL 3350 17 GM POWD.PACK GT PRN (05:28)
[2017-06-24] MEDS: GLYTROL 1,000 ML BAG GT PRN (05:28)
[2017-06-24] MEDS: BLOOD SUGAR DIAGNOSTIC 1 EACH STRIP IN SCH ×2 (05:28→17:35)
[2017-06-24] MEDS: POLYVINYL ALCOHOL 15 ML BOTTLE EACHEYE SCH ×4 (05:28→23:20)
[2017-06-24] MEDS: INSULIN LISPRO/ASPART 100 UNIT/ML CARTRIDGE SQ PRN (05:29)
[2017-06-24 07:43] VITALS: BP 92/63
--- NOTE | 2017-06-24 07:55 | NUR ---
Social Service Section of [facility] (1st quarter) completed. Resident non-communicative. Her sister, Tosin is involved in her care. Discharge to a lower level of care when medically appropriate. Sister feels that she will be a resident of subacute for the [facility]. Resident continues to have trach, g-tube, and ventilator. Her eye exam is due 07/2017 and she was seen by justice court deputy clerk Dr. Edmond Neal on 06/17/2017 for podiatry follow up and by dentist on 09/27/2016 and is due by 09/2017.
[2017-06-24] MEDS: LEVETIRACETAM SOL (5 ML) 100 MG/ML UDC GT SCH ×2 (09:48→20:57)
[2017-06-24] MEDS: GLYCOPYRROLATE 1 MG TABLET GT SCH ×2 (09:48→17:32)
[2017-06-24] MEDS: FERROUS SULFATE - FOR SA ONLY 330 MG/7.5 ML UDC GT SCH ×3 (09:48→17:32)
[2017-06-24] MEDS: PROSOURCE / PROSTAT (PYXIS) 30 ML UDC GT SCH ×2 (09:48→17:32)
[2017-06-24] MEDS: BACLOFEN (10 MG) 10 MG TABLET GT SCH ×3 (09:48→17:32)
[2017-06-24] MEDS: DOCUSATE SODIUM LIQ 100 MG/10 ML UDC GT SCH ×2 (09:48→17:32)
[2017-06-24] MEDS: POTASSIUM CHLORIDE 20 MEQ POWDER PACKET GT SCH (09:48)
[2017-06-24] MEDS: ASCORBIC ACID 500 MG TABLET GT SCH ×2 (09:48→17:32)
[2017-06-24] MEDS: HEPARIN SODIUM, PORCINE 5000 UNITS/1 ML VIAL SQ SCH ×2 (09:49→20:57)
[2017-06-24] MEDS: Z GUARD REMEDY 4 OZ OINT TP SCH ×2 (09:49→20:57)
[2017-06-24] MEDS: HYDROGEN PEROXIDE 480 ML BOTTLE TP SCH ×2 (09:49→20:57)
--- NOTE | 2017-06-24 14:36 | NUR ---
Seen and examined by Dr. Bullard, no new order given.
[2017-06-24 20:02] VITALS: BP 105/68
[2017-06-24] MEDS: MULTIVIT, IRON, MIN NO. 8, FA 1 TAB GT SCH (20:57)
[2017-06-24] MEDS: INSULIN DETEMIR 100 UNIT/ML CARTRIDGE SQ SCH (21:05)
[2017-06-24] MEDS: SENNOSIDES 8.6 MG TABLET GT SCH (21:05)
[2017-06-25] MEDS: ALBUTEROL FS 2.5 MG/3 ML VIAL.NEB NEB SCH ×4 (01:30→19:48)
[2017-06-25] MEDS: IPRATROPIUM NEB FS 0.5 MG/2.5 ML AMPUL.NEB NEB SCH ×4 (01:30→19:48)
[2017-06-25] MEDS: PANTOPRAZOLE 40 MG/PACK PACK GT SCH (05:05)
[2017-06-25] MEDS: POLYVINYL ALCOHOL 15 ML BOTTLE EACHEYE SCH ×4 (05:05→23:19)
[2017-06-25] MEDS: BLOOD SUGAR DIAGNOSTIC 1 EACH STRIP IN SCH ×2 (05:05→17:52)
[2017-06-25] MEDS: INSULIN LISPRO/ASPART 100 UNIT/ML CARTRIDGE SQ PRN ×2 (05:06→17:53)
[2017-06-25] MEDS: BISACODYL SUPP (10 MG) 10 MG/SUPP.RECT SUPP.RECT RC PRN (05:06)
[2017-06-25] MEDS: GLYTROL 1,000 ML BAG GT PRN (05:06)
[2017-06-25 07:36] VITALS: BP 105/67
[2017-06-25] MEDS: GLYCOPYRROLATE 1 MG TABLET GT SCH ×2 (08:35→16:43)
[2017-06-25] MEDS: PROSOURCE / PROSTAT (PYXIS) 30 ML UDC GT SCH ×2 (08:35→16:43)
[2017-06-25] MEDS: POTASSIUM CHLORIDE 20 MEQ POWDER PACKET GT SCH (08:35)
[2017-06-25] MEDS: FERROUS SULFATE - FOR SA ONLY 330 MG/7.5 ML UDC GT SCH ×3 (08:35→16:43)
[2017-06-25] MEDS: DOCUSATE SODIUM LIQ 100 MG/10 ML UDC GT SCH ×2 (08:35→16:43)
[2017-06-25] MEDS: LEVETIRACETAM SOL (5 ML) 100 MG/ML UDC GT SCH ×2 (08:35→20:01)
[2017-06-25] MEDS: BACLOFEN (10 MG) 10 MG TABLET GT SCH ×3 (08:35→16:43)
[2017-06-25] MEDS: ASCORBIC ACID 500 MG TABLET GT SCH ×2 (08:35→16:43)
[2017-06-25] MEDS: HYDROGEN PEROXIDE 480 ML BOTTLE TP SCH ×2 (08:36→20:02)
[2017-06-25] MEDS: Z GUARD REMEDY 4 OZ OINT TP SCH ×2 (08:36→20:02)
[2017-06-25] MEDS: HEPARIN SODIUM, PORCINE 5000 UNITS/1 ML VIAL SQ SCH ×2 (08:36→20:01)
--- NOTE | 2017-06-25 14:38 | NUR ---
Resident up the gerichair x 2 hours and taken to activity room with ventilator and GT feeding. Patient tolerated being up in the chair, O2 saturation 98-99%, no SOB. Resident transferred to and from the bed to chair using Pepito lift with 2 person assist.
[2017-06-25 19:59] VITALS: BP 111/74
[2017-06-25] MEDS: MULTIVIT, IRON, MIN NO. 8, FA 1 TAB GT SCH (20:01)
[2017-06-25] MEDS: SENNOSIDES 8.6 MG TABLET GT SCH (21:24)
[2017-06-25] MEDS: INSULIN DETEMIR 100 UNIT/ML CARTRIDGE SQ SCH (21:25)
[2017-06-26] MEDS: IPRATROPIUM NEB FS 0.5 MG/2.5 ML AMPUL.NEB NEB SCH ×4 (02:02→19:55)
[2017-06-26] MEDS: ALBUTEROL FS 2.5 MG/3 ML VIAL.NEB NEB SCH ×4 (02:02→19:55)
[2017-06-26] MEDS: PANTOPRAZOLE 40 MG/PACK PACK GT SCH (05:26)
[2017-06-26] MEDS: POLYVINYL ALCOHOL 15 ML BOTTLE EACHEYE SCH ×4 (05:26→23:14)
[2017-06-26] MEDS: BLOOD SUGAR DIAGNOSTIC 1 EACH STRIP IN SCH ×2 (05:27→18:04)
[2017-06-26] MEDS: INSULIN LISPRO/ASPART 100 UNIT/ML CARTRIDGE SQ PRN ×2 (05:27→18:06)
[2017-06-26] MEDS: GLYTROL 1,000 ML BAG GT PRN (05:27)
[2017-06-26 08:08] VITALS: BP 122/76
[2017-06-26] MEDS: LEVETIRACETAM SOL (5 ML) 100 MG/ML UDC GT SCH ×2 (08:47→21:24)
[2017-06-26] MEDS: BACLOFEN (10 MG) 10 MG TABLET GT SCH ×3 (08:47→16:21)
[2017-06-26] MEDS: FERROUS SULFATE - FOR SA ONLY 330 MG/7.5 ML UDC GT SCH ×3 (08:47→16:21)
[2017-06-26] MEDS: POTASSIUM CHLORIDE 20 MEQ POWDER PACKET GT SCH (08:47)
[2017-06-26] MEDS: GLYCOPYRROLATE 1 MG TABLET GT SCH ×2 (08:47→16:21)
[2017-06-26] MEDS: DOCUSATE SODIUM LIQ 100 MG/10 ML UDC GT SCH ×2 (08:47→16:21)
[2017-06-26] MEDS: PROSOURCE / PROSTAT (PYXIS) 30 ML UDC GT SCH ×2 (08:48→16:21)
[2017-06-26] MEDS: ASCORBIC ACID 500 MG TABLET GT SCH ×2 (08:48→16:21)
[2017-06-26] MEDS: HYDROGEN PEROXIDE 480 ML BOTTLE TP SCH ×2 (08:51→21:24)
[2017-06-26] MEDS: Z GUARD REMEDY 4 OZ OINT TP SCH ×2 (08:51→21:24)
[2017-06-26] MEDS: HEPARIN SODIUM, PORCINE 5000 UNITS/1 ML VIAL SQ SCH ×2 (08:51→21:24)
[2017-06-26 19:33] VITALS: BP 106/64
[2017-06-26] MEDS: MULTIVIT, IRON, MIN NO. 8, FA 1 TAB GT SCH (21:24)
[2017-06-26] MEDS: SENNOSIDES 8.6 MG TABLET GT SCH (21:24)
[2017-06-26] MEDS: INSULIN DETEMIR 100 UNIT/ML CARTRIDGE SQ SCH (21:25)
[2017-06-27] MEDS: IPRATROPIUM NEB FS 0.5 MG/2.5 ML AMPUL.NEB NEB SCH ×4 (02:00→19:51)
[2017-06-27] MEDS: ALBUTEROL FS 2.5 MG/3 ML VIAL.NEB NEB SCH ×4 (02:00→19:51)
[2017-06-27] MEDS: POLYVINYL ALCOHOL 15 ML BOTTLE EACHEYE SCH ×4 (05:33→23:25)
[2017-06-27] MEDS: PANTOPRAZOLE 40 MG/PACK PACK GT SCH (05:33)
[2017-06-27] MEDS: GLYTROL 1,000 ML BAG GT PRN (05:33)
[2017-06-27] MEDS: INSULIN LISPRO/ASPART 100 UNIT/ML CARTRIDGE SQ PRN ×2 (05:59→18:21)
[2017-06-27] MEDS: BLOOD SUGAR DIAGNOSTIC 1 EACH STRIP IN SCH ×2 (05:59→18:20)
[2017-06-27 08:05] VITALS: BP 102/68
[2017-06-27] MEDS: GLYCOPYRROLATE 1 MG TABLET GT SCH ×2 (08:23→17:13)
[2017-06-27] MEDS: HEPARIN SODIUM, PORCINE 5000 UNITS/1 ML VIAL SQ SCH ×2 (08:23→20:26)
[2017-06-27] MEDS: POTASSIUM CHLORIDE 20 MEQ POWDER PACKET GT SCH (08:23)
[2017-06-27] MEDS: BACLOFEN (10 MG) 10 MG TABLET GT SCH ×3 (08:23→17:13)
[2017-06-27] MEDS: ASCORBIC ACID 500 MG TABLET GT SCH ×2 (08:23→17:13)
[2017-06-27] MEDS: FERROUS SULFATE - FOR SA ONLY 330 MG/7.5 ML UDC GT SCH ×3 (08:23→17:13)
[2017-06-27] MEDS: HYDROGEN PEROXIDE 480 ML BOTTLE TP SCH ×2 (08:23→20:31)
[2017-06-27] MEDS: LEVETIRACETAM SOL (5 ML) 100 MG/ML UDC GT SCH ×2 (08:23→20:25)
[2017-06-27] MEDS: DOCUSATE SODIUM LIQ 100 MG/10 ML UDC GT SCH ×2 (08:23→17:13)
[2017-06-27] MEDS: PROSOURCE / PROSTAT (PYXIS) 30 ML UDC GT SCH ×2 (08:23→17:13)
[2017-06-27] MEDS: Z GUARD REMEDY 4 OZ OINT TP SCH ×2 (08:24→20:32)
[2017-06-27 19:47] VITALS: BP 109/74
[2017-06-27] MEDS: MULTIVIT, IRON, MIN NO. 8, FA 1 TAB GT SCH (20:25)
[2017-06-27] MEDS: SENNOSIDES 8.6 MG TABLET GT SCH (20:32)
[2017-06-27] MEDS: INSULIN DETEMIR 100 UNIT/ML CARTRIDGE SQ SCH (22:02)
[2017-06-28] MEDS: ALBUTEROL FS 2.5 MG/3 ML VIAL.NEB NEB SCH ×4 (01:24→19:56)
[2017-06-28] MEDS: IPRATROPIUM NEB FS 0.5 MG/2.5 ML AMPUL.NEB NEB SCH ×4 (01:24→19:56)
[2017-06-28] MEDS: PANTOPRAZOLE 40 MG/PACK PACK GT SCH (05:03)
[2017-06-28] MEDS: POLYVINYL ALCOHOL 15 ML BOTTLE EACHEYE SCH ×3 (05:03→17:10)
[2017-06-28] MEDS: GLYTROL 1,000 ML BAG GT PRN (05:03)
[2017-06-28] MEDS: BLOOD SUGAR DIAGNOSTIC 1 EACH STRIP IN SCH ×2 (05:03→18:24)
[2017-06-28 07:54] VITALS: BP 115/61
[2017-06-28] MEDS: BACLOFEN (10 MG) 10 MG TABLET GT SCH ×3 (08:04→16:45)
[2017-06-28] MEDS: FERROUS SULFATE - FOR SA ONLY 330 MG/7.5 ML UDC GT SCH ×3 (08:04→16:45)
[2017-06-28] MEDS: ASCORBIC ACID 500 MG TABLET GT SCH ×2 (08:04→16:45)
[2017-06-28] MEDS: PROSOURCE / PROSTAT (PYXIS) 30 ML UDC GT SCH ×2 (08:04→16:45)
[2017-06-28] MEDS: POTASSIUM CHLORIDE 20 MEQ POWDER PACKET GT SCH (08:04)
[2017-06-28] MEDS: LEVETIRACETAM SOL (5 ML) 100 MG/ML UDC GT SCH ×2 (08:04→21:38)
[2017-06-28] MEDS: GLYCOPYRROLATE 1 MG TABLET GT SCH ×2 (08:04→16:45)
[2017-06-28] MEDS: DOCUSATE SODIUM LIQ 100 MG/10 ML UDC GT SCH ×2 (08:04→16:45)
[2017-06-28] MEDS: HYDROGEN PEROXIDE 480 ML BOTTLE TP SCH ×2 (08:08→21:38)
[2017-06-28] MEDS: Z GUARD REMEDY 4 OZ OINT TP SCH ×2 (08:08→21:38)
[2017-06-28] MEDS: HEPARIN SODIUM, PORCINE 5000 UNITS/1 ML VIAL SQ SCH ×2 (08:08→21:38)
[2017-06-28] MEDS: INSULIN LISPRO/ASPART 100 UNIT/ML CARTRIDGE SQ PRN (18:24)
[2017-06-28 19:35] VITALS: BP 130/67
[2017-06-28] MEDS: MULTIVIT, IRON, MIN NO. 8, FA 1 TAB GT SCH (21:38)
[2017-06-28] MEDS: INSULIN DETEMIR 100 UNIT/ML CARTRIDGE SQ SCH (21:38)
[2017-06-28] MEDS: SENNOSIDES 8.6 MG TABLET GT SCH (21:38)
[2017-06-29] MEDS: IPRATROPIUM NEB FS 0.5 MG/2.5 ML AMPUL.NEB NEB SCH ×4 (00:34→19:30)
[2017-06-29] MEDS: ALBUTEROL FS 2.5 MG/3 ML VIAL.NEB NEB SCH ×4 (00:34→19:30)
[2017-06-29] MEDS: POLYVINYL ALCOHOL 15 ML BOTTLE EACHEYE SCH ×4 (00:55→17:36)
[2017-06-29] MEDS: GLYTROL 1,000 ML BAG GT PRN (00:55)
[2017-06-29] MEDS: PANTOPRAZOLE 40 MG/PACK PACK GT SCH (05:48)
[2017-06-29] MEDS: BLOOD SUGAR DIAGNOSTIC 1 EACH STRIP IN SCH ×2 (05:48→17:36)
[2017-06-29 07:50] VITALS: BP 95/71
[2017-06-29] MEDS: POTASSIUM CHLORIDE 20 MEQ POWDER PACKET GT SCH (08:34)
[2017-06-29] MEDS: FERROUS SULFATE - FOR SA ONLY 330 MG/7.5 ML UDC GT SCH ×3 (08:34→17:35)
[2017-06-29] MEDS: LEVETIRACETAM SOL (5 ML) 100 MG/ML UDC GT SCH ×2 (08:34→20:36)
[2017-06-29] MEDS: BACLOFEN (10 MG) 10 MG TABLET GT SCH ×3 (08:34→17:35)
[2017-06-29] MEDS: DOCUSATE SODIUM LIQ 100 MG/10 ML UDC GT SCH ×2 (08:34→17:35)
[2017-06-29] MEDS: GLYCOPYRROLATE 1 MG TABLET GT SCH ×2 (08:34→17:35)
[2017-06-29] MEDS: PROSOURCE / PROSTAT (PYXIS) 30 ML UDC GT SCH ×2 (08:35→17:36)
[2017-06-29] MEDS: ASCORBIC ACID 500 MG TABLET GT SCH ×2 (08:35→17:36)
[2017-06-29] MEDS: HEPARIN SODIUM, PORCINE 5000 UNITS/1 ML VIAL SQ SCH ×2 (08:36→20:37)
[2017-06-29] MEDS: Z GUARD REMEDY 4 OZ OINT TP SCH ×2 (08:36→20:37)
[2017-06-29] MEDS: HYDROGEN PEROXIDE 480 ML BOTTLE TP SCH ×2 (08:36→20:37)
[2017-06-29 20:19] VITALS: BP 100/56
[2017-06-29] MEDS: MULTIVIT, IRON, MIN NO. 8, FA 1 TAB GT SCH (20:37)
[2017-06-29] MEDS: SENNOSIDES 8.6 MG TABLET GT SCH (21:17)
[2017-06-29] MEDS: INSULIN DETEMIR 100 UNIT/ML CARTRIDGE SQ SCH (21:17)
[2017-06-30] MEDS: POLYVINYL ALCOHOL 15 ML BOTTLE EACHEYE SCH ×5 (00:14→23:21)
[2017-06-30] MEDS: IPRATROPIUM NEB FS 0.5 MG/2.5 ML AMPUL.NEB NEB SCH ×4 (01:26→20:08)
[2017-06-30] MEDS: ALBUTEROL FS 2.5 MG/3 ML VIAL.NEB NEB SCH ×4 (01:27→20:08)
[2017-06-30] MEDS: PANTOPRAZOLE 40 MG/PACK PACK GT SCH (05:15)
[2017-06-30] MEDS: BLOOD SUGAR DIAGNOSTIC 1 EACH STRIP IN SCH ×2 (06:07→17:23)
[2017-06-30 07:57] VITALS: BP 99/61
[2017-06-30] MEDS: POTASSIUM CHLORIDE 20 MEQ POWDER PACKET GT SCH (08:33)
[2017-06-30] MEDS: DOCUSATE SODIUM LIQ 100 MG/10 ML UDC GT SCH ×2 (08:33→17:21)
[2017-06-30] MEDS: LEVETIRACETAM SOL (5 ML) 100 MG/ML UDC GT SCH ×2 (08:33→20:04)
[2017-06-30] MEDS: BACLOFEN (10 MG) 10 MG TABLET GT SCH ×3 (08:33→17:22)
[2017-06-30] MEDS: FERROUS SULFATE - FOR SA ONLY 330 MG/7.5 ML UDC GT SCH ×3 (08:33→17:21)
[2017-06-30] MEDS: GLYCOPYRROLATE 1 MG TABLET GT SCH ×2 (08:33→17:22)
[2017-06-30] MEDS: HEPARIN SODIUM, PORCINE 5000 UNITS/1 ML VIAL SQ SCH ×2 (08:34→20:04)
[2017-06-30] MEDS: ASCORBIC ACID 500 MG TABLET GT SCH ×2 (08:34→17:22)
[2017-06-30] MEDS: PROSOURCE / PROSTAT (PYXIS) 30 ML UDC GT SCH ×2 (08:34→17:22)
[2017-06-30] MEDS: Z GUARD REMEDY 4 OZ OINT TP SCH ×2 (08:34→20:04)
[2017-06-30] MEDS: HYDROGEN PEROXIDE 480 ML BOTTLE TP SCH ×2 (08:34→20:04)
[2017-06-30 20:01] VITALS: BP 101/68
[2017-06-30] MEDS: MULTIVIT, IRON, MIN NO. 8, FA 1 TAB GT SCH (20:04)
[2017-06-30] MEDS: SENNOSIDES 8.6 MG TABLET GT SCH (21:13)
[2017-06-30] MEDS: POLYETHYLENE GLYCOL 3350 17 GM POWD.PACK GT PRN (21:14)
[2017-06-30] MEDS: INSULIN DETEMIR 100 UNIT/ML CARTRIDGE SQ SCH (21:14)
[2017-07-01] MEDS: ALBUTEROL FS 2.5 MG/3 ML VIAL.NEB NEB SCH ×4 (01:30→19:59)
[2017-07-01] MEDS: IPRATROPIUM NEB FS 0.5 MG/2.5 ML AMPUL.NEB NEB SCH ×4 (01:30→19:59)
[2017-07-01] MEDS: POLYVINYL ALCOHOL 15 ML BOTTLE EACHEYE SCH ×4 (05:05→23:01)
[2017-07-01] MEDS: PANTOPRAZOLE 40 MG/PACK PACK GT SCH (05:05)
[2017-07-01] MEDS: BLOOD SUGAR DIAGNOSTIC 1 EACH STRIP IN SCH ×2 (05:05→17:37)
[2017-07-01] MEDS: GLYTROL 1,000 ML BAG GT PRN (05:05)
[2017-07-01 07:35] VITALS: BP 97/65
[2017-07-01] MEDS: POTASSIUM CHLORIDE 20 MEQ POWDER PACKET GT SCH (08:56)
[2017-07-01] MEDS: DOCUSATE SODIUM LIQ 100 MG/10 ML UDC GT SCH ×2 (08:56→16:42)
[2017-07-01] MEDS: GLYCOPYRROLATE 1 MG TABLET GT SCH ×2 (08:56→16:42)
[2017-07-01] MEDS: PROSOURCE / PROSTAT (PYXIS) 30 ML UDC GT SCH ×2 (08:56→16:42)
[2017-07-01] MEDS: BACLOFEN (10 MG) 10 MG TABLET GT SCH ×3 (08:56→16:42)
[2017-07-01] MEDS: ASCORBIC ACID 500 MG TABLET GT SCH ×2 (08:56→16:42)
[2017-07-01] MEDS: FERROUS SULFATE - FOR SA ONLY 330 MG/7.5 ML UDC GT SCH ×3 (08:56→16:42)
[2017-07-01] MEDS: LEVETIRACETAM SOL (5 ML) 100 MG/ML UDC GT SCH ×2 (08:56→20:15)
[2017-07-01] MEDS: HEPARIN SODIUM, PORCINE 5000 UNITS/1 ML VIAL SQ SCH ×2 (09:12→20:15)
[2017-07-01] MEDS: HYDROGEN PEROXIDE 480 ML BOTTLE TP SCH ×2 (09:12→20:19)
[2017-07-01] MEDS: Z GUARD REMEDY 4 OZ OINT TP SCH ×2 (09:14→20:19)
--- NOTE | 2017-07-01 14:00 | NUR ---
IDT meeting held, family unable to attend. IDT team reviewed current orders, medications, treatments and recent labs. Dr. Alvarez with new order to try to wean her again from ventilator starting Tuesday, CPAP PS 15, Peep 5 and ABG 2 hours later. Orders carried out.
[2017-07-01] MEDS: INSULIN LISPRO/ASPART 100 UNIT/ML CARTRIDGE SQ PRN (17:40)
[2017-07-01 20:03] VITALS: BP 104/73
[2017-07-01] MEDS: MULTIVIT, IRON, MIN NO. 8, FA 1 TAB GT SCH (20:15)
[2017-07-01] MEDS: SENNOSIDES 8.6 MG TABLET GT SCH (21:18)
[2017-07-01] MEDS: INSULIN DETEMIR 100 UNIT/ML CARTRIDGE SQ SCH (21:19)
[2017-07-01] MEDS: ACETAMINOPHEN 650 MG/20 ML UDC- FOR SA PATIENTS ONLY GT PRN (21:21)
[2017-07-02] MEDS: ALBUTEROL FS 2.5 MG/3 ML VIAL.NEB NEB SCH ×4 (01:16→19:30)
[2017-07-02] MEDS: IPRATROPIUM NEB FS 0.5 MG/2.5 ML AMPUL.NEB NEB SCH ×4 (01:16→19:30)
[2017-07-02] MEDS: INSULIN LISPRO/ASPART 100 UNIT/ML CARTRIDGE SQ PRN ×2 (05:13→18:18)
[2017-07-02] MEDS: PANTOPRAZOLE 40 MG/PACK PACK GT SCH (05:13)
[2017-07-02] MEDS: GLYTROL 1,000 ML BAG GT PRN (05:13)
[2017-07-02] MEDS: POLYVINYL ALCOHOL 15 ML BOTTLE EACHEYE SCH ×4 (05:13→23:38)
[2017-07-02] MEDS: BLOOD SUGAR DIAGNOSTIC 1 EACH STRIP IN SCH ×2 (05:13→18:18)
[2017-07-02 07:27] VITALS: BP 104/61
[2017-07-02] MEDS: ASCORBIC ACID 500 MG TABLET GT SCH ×2 (09:07→16:38)
[2017-07-02] MEDS: DOCUSATE SODIUM LIQ 100 MG/10 ML UDC GT SCH ×2 (09:07→16:37)
[2017-07-02] MEDS: BACLOFEN (10 MG) 10 MG TABLET GT SCH ×3 (09:07→16:38)
[2017-07-02] MEDS: FERROUS SULFATE - FOR SA ONLY 330 MG/7.5 ML UDC GT SCH ×3 (09:07→16:38)
[2017-07-02] MEDS: POTASSIUM CHLORIDE 20 MEQ POWDER PACKET GT SCH (09:07)
[2017-07-02] MEDS: PROSOURCE / PROSTAT (PYXIS) 30 ML UDC GT SCH ×2 (09:07→16:38)
[2017-07-02] MEDS: LEVETIRACETAM SOL (5 ML) 100 MG/ML UDC GT SCH ×2 (09:07→20:01)
[2017-07-02] MEDS: GLYCOPYRROLATE 1 MG TABLET GT SCH ×2 (09:07→16:38)
[2017-07-02] MEDS: HYDROGEN PEROXIDE 480 ML BOTTLE TP SCH ×2 (09:08→20:02)
[2017-07-02] MEDS: HEPARIN SODIUM, PORCINE 5000 UNITS/1 ML VIAL SQ SCH ×2 (09:08→20:02)
[2017-07-02] MEDS: Z GUARD REMEDY 4 OZ OINT TP SCH ×2 (09:08→20:02)
[2017-07-02] MEDS: POLYETHYLENE GLYCOL 3350 17 GM POWD.PACK GT PRN (20:02)
[2017-07-02] MEDS: MULTIVIT, IRON, MIN NO. 8, FA 1 TAB GT SCH (20:02)
[2017-07-02 20:03] VITALS: BP 100/65
[2017-07-02] MEDS: SENNOSIDES 8.6 MG TABLET GT SCH (21:00)
[2017-07-02] MEDS: INSULIN DETEMIR 100 UNIT/ML CARTRIDGE SQ SCH (21:00)
[2017-07-03] MEDS: IPRATROPIUM NEB FS 0.5 MG/2.5 ML AMPUL.NEB NEB SCH ×4 (01:51→20:21)
[2017-07-03] MEDS: ALBUTEROL FS 2.5 MG/3 ML VIAL.NEB NEB SCH ×4 (01:51→20:21)
[2017-07-03] MEDS: POLYVINYL ALCOHOL 15 ML BOTTLE EACHEYE SCH ×4 (05:12→23:07)
[2017-07-03] MEDS: PANTOPRAZOLE 40 MG/PACK PACK GT SCH (05:13)
[2017-07-03] MEDS: INSULIN LISPRO/ASPART 100 UNIT/ML CARTRIDGE SQ PRN (05:13)
[2017-07-03] MEDS: GLYTROL 1,000 ML BAG GT PRN (05:13)
[2017-07-03] MEDS: BLOOD SUGAR DIAGNOSTIC 1 EACH STRIP IN SCH ×2 (05:13→17:52)
[2017-07-03 07:32] VITALS: BP 97/66
[2017-07-03] MEDS: POTASSIUM CHLORIDE 20 MEQ POWDER PACKET GT SCH (08:23)
[2017-07-03] MEDS: DOCUSATE SODIUM LIQ 100 MG/10 ML UDC GT SCH ×2 (08:23→16:16)
[2017-07-03] MEDS: BACLOFEN (10 MG) 10 MG TABLET GT SCH ×3 (08:23→16:16)
[2017-07-03] MEDS: GLYCOPYRROLATE 1 MG TABLET GT SCH ×2 (08:23→16:16)
[2017-07-03] MEDS: PROSOURCE / PROSTAT (PYXIS) 30 ML UDC GT SCH ×2 (08:23→16:16)
[2017-07-03] MEDS: ASCORBIC ACID 500 MG TABLET GT SCH ×2 (08:23→16:16)
[2017-07-03] MEDS: FERROUS SULFATE - FOR SA ONLY 330 MG/7.5 ML UDC GT SCH ×3 (08:23→16:16)
[2017-07-03] MEDS: LEVETIRACETAM SOL (5 ML) 100 MG/ML UDC GT SCH ×2 (08:23→20:15)
[2017-07-03] MEDS: HYDROGEN PEROXIDE 480 ML BOTTLE TP SCH ×2 (08:29→20:16)
[2017-07-03] MEDS: Z GUARD REMEDY 4 OZ OINT TP SCH ×2 (08:29→20:16)
[2017-07-03] MEDS: HEPARIN SODIUM, PORCINE 5000 UNITS/1 ML VIAL SQ SCH ×2 (08:29→20:16)
[2017-07-03] MEDS: MULTIVIT, IRON, MIN NO. 8, FA 1 TAB GT SCH (20:15)
[2017-07-03 21:00] VITALS: BP 108/71
[2017-07-03] MEDS: INSULIN DETEMIR 100 UNIT/ML CARTRIDGE SQ SCH (21:16)
[2017-07-03] MEDS: SENNOSIDES 8.6 MG TABLET GT SCH (21:16)
[2017-07-04] MEDS: ALBUTEROL FS 2.5 MG/3 ML VIAL.NEB NEB SCH ×4 (01:30→20:19)
[2017-07-04] MEDS: IPRATROPIUM NEB FS 0.5 MG/2.5 ML AMPUL.NEB NEB SCH ×4 (01:30→20:19)
[2017-07-04] MEDS: GLYTROL 1,000 ML BAG GT PRN (05:52)
[2017-07-04] MEDS: PANTOPRAZOLE 40 MG/PACK PACK GT SCH (05:52)
[2017-07-04] MEDS: POLYVINYL ALCOHOL 15 ML BOTTLE EACHEYE SCH ×4 (05:52→23:03)
[2017-07-04] MEDS: BLOOD SUGAR DIAGNOSTIC 1 EACH STRIP IN SCH ×2 (05:52→18:28)
[2017-07-04 08:08] VITALS: BP 103/55
[2017-07-04] MEDS: ASCORBIC ACID 500 MG TABLET GT SCH ×2 (08:23→17:40)
[2017-07-04] MEDS: GLYCOPYRROLATE 1 MG TABLET GT SCH ×2 (08:23→17:40)
[2017-07-04] MEDS: LEVETIRACETAM SOL (5 ML) 100 MG/ML UDC GT SCH ×2 (08:23→20:20)
[2017-07-04] MEDS: POTASSIUM CHLORIDE 20 MEQ POWDER PACKET GT SCH (08:23)
[2017-07-04] MEDS: Z GUARD REMEDY 4 OZ OINT TP SCH ×2 (08:23→20:21)
[2017-07-04] MEDS: DOCUSATE SODIUM LIQ 100 MG/10 ML UDC GT SCH ×2 (08:23→17:40)
[2017-07-04] MEDS: FERROUS SULFATE - FOR SA ONLY 330 MG/7.5 ML UDC GT SCH ×3 (08:23→17:40)
[2017-07-04] MEDS: BACLOFEN (10 MG) 10 MG TABLET GT SCH ×3 (08:23→17:40)
[2017-07-04] MEDS: HEPARIN SODIUM, PORCINE 5000 UNITS/1 ML VIAL SQ SCH ×2 (08:23→20:21)
[2017-07-04] MEDS: PROSOURCE / PROSTAT (PYXIS) 30 ML UDC GT SCH ×2 (08:23→17:40)
[2017-07-04] MEDS: HYDROGEN PEROXIDE 480 ML BOTTLE TP SCH ×2 (08:23→20:21)
--- NOTE | 2017-07-04 08:40 | NUR ---
Pt was placed on CPAP by RT Parrish. Pt did not tolerate it, she was apneic.
--- NOTE | 2017-07-04 09:46 | NUR ---
RT NOTE PT FAILED CPAP TRIAL ON SEVERAL INTENTS. PT NOTED TO GO APNEIC ON CPAP MODE. BAR CAPTAIN NOTIFIED AND AT BED SIDE. PT PLACED BACK ON AC MODE ON PREVIOUS SETTINGS. NO DISTRESS NOTED ON PREVIOUS SETTINGS. WILL CONTINUE TO MONITOR. Addendum: 07/04/17 at 0949 by VERÓNICA JUNIOR RT Amended: Links added.
--- NOTE | 2017-07-04 10:20 | NUR ---
Notified Dr. Alvarez that pt did not tolerate CPAP, pt was apneic. ABG No new order. Addendum: 07/04/17 at 1129 by TRISTIN MCCLENDON RN ABG not done since pt was not kept on CPAP. No new order.
[2017-07-04] MEDS: INSULIN LISPRO/ASPART 100 UNIT/ML CARTRIDGE SQ PRN (18:28)
[2017-07-04] MEDS: MULTIVIT, IRON, MIN NO. 8, FA 1 TAB GT SCH (20:20)
[2017-07-04] MEDS: SENNOSIDES 8.6 MG TABLET GT SCH (21:20)
[2017-07-04] MEDS: INSULIN DETEMIR 100 UNIT/ML CARTRIDGE SQ SCH (21:20)
[2017-07-05] MEDS: IPRATROPIUM NEB FS 0.5 MG/2.5 ML AMPUL.NEB NEB SCH ×4 (01:30→19:59)
[2017-07-05] MEDS: ALBUTEROL FS 2.5 MG/3 ML VIAL.NEB NEB SCH ×4 (01:30→19:59)
[2017-07-05] MEDS: PANTOPRAZOLE 40 MG/PACK PACK GT SCH (05:52)
[2017-07-05] MEDS: POLYVINYL ALCOHOL 15 ML BOTTLE EACHEYE SCH ×4 (05:52→23:14)
[2017-07-05] MEDS: GLYTROL 1,000 ML BAG GT PRN (05:52)
[2017-07-05] MEDS: BLOOD SUGAR DIAGNOSTIC 1 EACH STRIP IN SCH ×2 (05:52→18:03)
[2017-07-05 07:54] VITALS: BP 97/59
[2017-07-05] MEDS: DOCUSATE SODIUM LIQ 100 MG/10 ML UDC GT SCH ×2 (08:25→16:56)
[2017-07-05] MEDS: BACLOFEN (10 MG) 10 MG TABLET GT SCH ×3 (08:25→16:56)
[2017-07-05] MEDS: ASCORBIC ACID 500 MG TABLET GT SCH ×2 (08:25→16:56)
[2017-07-05] MEDS: LEVETIRACETAM SOL (5 ML) 100 MG/ML UDC GT SCH ×2 (08:25→20:15)
[2017-07-05] MEDS: FERROUS SULFATE - FOR SA ONLY 330 MG/7.5 ML UDC GT SCH ×3 (08:25→16:56)
[2017-07-05] MEDS: GLYCOPYRROLATE 1 MG TABLET GT SCH ×2 (08:25→16:56)
[2017-07-05] MEDS: PROSOURCE / PROSTAT (PYXIS) 30 ML UDC GT SCH ×2 (08:25→16:56)
[2017-07-05] MEDS: POTASSIUM CHLORIDE 20 MEQ POWDER PACKET GT SCH (08:25)
[2017-07-05] MEDS: HEPARIN SODIUM, PORCINE 5000 UNITS/1 ML VIAL SQ SCH ×2 (08:26→20:15)
[2017-07-05] MEDS: Z GUARD REMEDY 4 OZ OINT TP SCH ×2 (08:26→20:16)
[2017-07-05] MEDS: HYDROGEN PEROXIDE 480 ML BOTTLE TP SCH ×2 (08:26→20:16)
[2017-07-05] MEDS: INSULIN LISPRO/ASPART 100 UNIT/ML CARTRIDGE SQ PRN (18:04)
[2017-07-05] MEDS: MULTIVIT, IRON, MIN NO. 8, FA 1 TAB GT SCH (20:15)
[2017-07-05] MEDS: SENNOSIDES 8.6 MG TABLET GT SCH (21:19)
[2017-07-05] MEDS: INSULIN DETEMIR 100 UNIT/ML CARTRIDGE SQ SCH (21:19)
[2017-07-06] MEDS: ALBUTEROL FS 2.5 MG/3 ML VIAL.NEB NEB SCH ×4 (01:01→19:30)
[2017-07-06] MEDS: IPRATROPIUM NEB FS 0.5 MG/2.5 ML AMPUL.NEB NEB SCH ×4 (01:01→19:30)
[2017-07-06] MEDS: PANTOPRAZOLE 40 MG/PACK PACK GT SCH (05:54)
[2017-07-06] MEDS: BLOOD SUGAR DIAGNOSTIC 1 EACH STRIP IN SCH ×2 (05:54→17:59)
[2017-07-06] MEDS: POLYVINYL ALCOHOL 15 ML BOTTLE EACHEYE SCH ×4 (05:54→23:14)
[2017-07-06] MEDS: GLYTROL 1,000 ML BAG GT PRN (05:54)
[2017-07-06 08:03] VITALS: BP 97/59
[2017-07-06] MEDS: BACLOFEN (10 MG) 10 MG TABLET GT SCH ×3 (09:46→17:59)
[2017-07-06] MEDS: PROSOURCE / PROSTAT (PYXIS) 30 ML UDC GT SCH ×2 (09:46→17:59)
[2017-07-06] MEDS: LEVETIRACETAM SOL (5 ML) 100 MG/ML UDC GT SCH ×2 (09:46→20:24)
[2017-07-06] MEDS: DOCUSATE SODIUM LIQ 100 MG/10 ML UDC GT SCH ×2 (09:46→17:59)
[2017-07-06] MEDS: POTASSIUM CHLORIDE 20 MEQ POWDER PACKET GT SCH (09:46)
[2017-07-06] MEDS: GLYCOPYRROLATE 1 MG TABLET GT SCH ×2 (09:46→17:59)
[2017-07-06] MEDS: FERROUS SULFATE - FOR SA ONLY 330 MG/7.5 ML UDC GT SCH ×3 (09:46→17:59)
[2017-07-06] MEDS: Z GUARD REMEDY 4 OZ OINT TP SCH ×2 (09:47→20:24)
[2017-07-06] MEDS: ASCORBIC ACID 500 MG TABLET GT SCH ×2 (09:47→17:59)
[2017-07-06] MEDS: HYDROGEN PEROXIDE 480 ML BOTTLE TP SCH ×2 (09:47→20:24)
[2017-07-06] MEDS: HEPARIN SODIUM, PORCINE 5000 UNITS/1 ML VIAL SQ SCH ×2 (09:47→20:24)
[2017-07-06 19:29] VITALS: BP 105/73
[2017-07-06] MEDS: MULTIVIT, IRON, MIN NO. 8, FA 1 TAB GT SCH (20:24)
[2017-07-06] MEDS: SENNOSIDES 8.6 MG TABLET GT SCH (21:17)
[2017-07-06] MEDS: INSULIN DETEMIR 100 UNIT/ML CARTRIDGE SQ SCH (21:18)
[2017-07-07] MEDS: ALBUTEROL FS 2.5 MG/3 ML VIAL.NEB NEB SCH ×4 (01:12→19:41)
[2017-07-07] MEDS: IPRATROPIUM NEB FS 0.5 MG/2.5 ML AMPUL.NEB NEB SCH ×4 (01:12→19:41)
[2017-07-07] MEDS: BLOOD SUGAR DIAGNOSTIC 1 EACH STRIP IN SCH ×2 (06:04→18:13)
[2017-07-07] MEDS: POLYVINYL ALCOHOL 15 ML BOTTLE EACHEYE SCH ×3 (06:04→18:13)
[2017-07-07] MEDS: PANTOPRAZOLE 40 MG/PACK PACK GT SCH (06:04)
[2017-07-07] MEDS: GLYTROL 1,000 ML BAG GT PRN (06:05)
[2017-07-07 07:50] VITALS: BP 132/78
[2017-07-07] MEDS: GLYCOPYRROLATE 1 MG TABLET GT SCH ×2 (08:39→17:00)
[2017-07-07] MEDS: FERROUS SULFATE - FOR SA ONLY 330 MG/7.5 ML UDC GT SCH ×3 (08:39→17:00)
[2017-07-07] MEDS: DOCUSATE SODIUM LIQ 100 MG/10 ML UDC GT SCH ×2 (08:39→17:00)
[2017-07-07] MEDS: LEVETIRACETAM SOL (5 ML) 100 MG/ML UDC GT SCH ×2 (08:39→21:00)
[2017-07-07] MEDS: POTASSIUM CHLORIDE 20 MEQ POWDER PACKET GT SCH (08:41)
[2017-07-07] MEDS: BACLOFEN (10 MG) 10 MG TABLET GT SCH ×3 (08:41→17:00)
[2017-07-07] MEDS: PROSOURCE / PROSTAT (PYXIS) 30 ML UDC GT SCH ×2 (08:41→17:00)
[2017-07-07] MEDS: ASCORBIC ACID 500 MG TABLET GT SCH ×2 (08:41→17:00)
[2017-07-07] MEDS: HEPARIN SODIUM, PORCINE 5000 UNITS/1 ML VIAL SQ SCH ×2 (08:42→21:00)
[2017-07-07] MEDS: HYDROGEN PEROXIDE 480 ML BOTTLE TP SCH ×2 (08:43→21:00)
[2017-07-07] MEDS: Z GUARD REMEDY 4 OZ OINT TP SCH ×2 (08:43→21:00)
[2017-07-07] MEDS: POLYETHYLENE GLYCOL 3350 17 GM POWD.PACK GT PRN (12:28)
[2017-07-07 19:49] VITALS: BP 101/67
[2017-07-07] MEDS: MULTIVIT, IRON, MIN NO. 8, FA 1 TAB GT SCH (21:00)
[2017-07-07] MEDS: SENNOSIDES 8.6 MG TABLET GT SCH (22:22)
[2017-07-07] MEDS: INSULIN DETEMIR 100 UNIT/ML CARTRIDGE SQ SCH (22:22)
[2017-07-08] MEDS: POLYVINYL ALCOHOL 15 ML BOTTLE EACHEYE SCH ×5 (00:18→23:51)
[2017-07-08] MEDS: IPRATROPIUM NEB FS 0.5 MG/2.5 ML AMPUL.NEB NEB SCH ×4 (01:49→19:34)
[2017-07-08] MEDS: ALBUTEROL FS 2.5 MG/3 ML VIAL.NEB NEB SCH ×4 (01:49→19:34)
[2017-07-08] MEDS: GLYTROL 1,000 ML BAG GT PRN (05:38)
[2017-07-08] MEDS: PANTOPRAZOLE 40 MG/PACK PACK GT SCH (05:53)
[2017-07-08] MEDS: INSULIN LISPRO/ASPART 100 UNIT/ML CARTRIDGE SQ PRN (06:05)
[2017-07-08] MEDS: BLOOD SUGAR DIAGNOSTIC 1 EACH STRIP IN SCH ×2 (06:05→18:12)
[2017-07-08] MEDS: BISACODYL SUPP (10 MG) 10 MG/SUPP.RECT SUPP.RECT RC PRN (06:49)
[2017-07-08 07:27] VITALS: BP 98/62
[2017-07-08] MEDS: BACLOFEN (10 MG) 10 MG TABLET GT SCH ×3 (08:37→17:20)
[2017-07-08] MEDS: FERROUS SULFATE - FOR SA ONLY 330 MG/7.5 ML UDC GT SCH ×3 (08:37→17:20)
[2017-07-08] MEDS: DOCUSATE SODIUM LIQ 100 MG/10 ML UDC GT SCH ×2 (08:37→17:20)
[2017-07-08] MEDS: GLYCOPYRROLATE 1 MG TABLET GT SCH ×2 (08:37→17:20)
[2017-07-08] MEDS: ASCORBIC ACID 500 MG TABLET GT SCH ×2 (08:37→17:20)
[2017-07-08] MEDS: LEVETIRACETAM SOL (5 ML) 100 MG/ML UDC GT SCH ×2 (08:37→21:09)
[2017-07-08] MEDS: PROSOURCE / PROSTAT (PYXIS) 30 ML UDC GT SCH ×2 (08:37→17:20)
[2017-07-08] MEDS: POTASSIUM CHLORIDE 20 MEQ POWDER PACKET GT SCH (08:37)
[2017-07-08] MEDS: HEPARIN SODIUM, PORCINE 5000 UNITS/1 ML VIAL SQ SCH ×2 (08:38→21:10)
[2017-07-08] MEDS: HYDROGEN PEROXIDE 480 ML BOTTLE TP SCH ×2 (08:38→21:10)
[2017-07-08] MEDS: Z GUARD REMEDY 4 OZ OINT TP SCH ×2 (08:38→21:10)
[2017-07-08 19:45] VITALS: BP 102/70
[2017-07-08] MEDS: MULTIVIT, IRON, MIN NO. 8, FA 1 TAB GT SCH (21:09)
[2017-07-08] MEDS: SENNOSIDES 8.6 MG TABLET GT SCH (21:10)
[2017-07-08] MEDS: INSULIN DETEMIR 100 UNIT/ML CARTRIDGE SQ SCH (21:50)
[2017-07-09] MEDS: IPRATROPIUM NEB FS 0.5 MG/2.5 ML AMPUL.NEB NEB SCH ×4 (02:07→19:59)
[2017-07-09] MEDS: ALBUTEROL FS 2.5 MG/3 ML VIAL.NEB NEB SCH ×4 (02:07→19:59)
[2017-07-09] MEDS: POLYVINYL ALCOHOL 15 ML BOTTLE EACHEYE SCH ×4 (05:20→23:56)
[2017-07-09] MEDS: PANTOPRAZOLE 40 MG/PACK PACK GT SCH (05:20)
[2017-07-09] MEDS: BLOOD SUGAR DIAGNOSTIC 1 EACH STRIP IN SCH ×2 (05:37→17:39)
[2017-07-09] MEDS: INSULIN LISPRO/ASPART 100 UNIT/ML CARTRIDGE SQ PRN ×2 (05:38→17:49)
[2017-07-09] MEDS: GLYTROL 1,000 ML BAG GT PRN (06:28)
[2017-07-09 07:27] VITALS: BP 90/59
[2017-07-09] MEDS: ASCORBIC ACID 500 MG TABLET GT SCH ×2 (08:39→17:38)
[2017-07-09] MEDS: LEVETIRACETAM SOL (5 ML) 100 MG/ML UDC GT SCH ×2 (08:39→21:09)
[2017-07-09] MEDS: FERROUS SULFATE - FOR SA ONLY 330 MG/7.5 ML UDC GT SCH ×3 (08:39→17:37)
[2017-07-09] MEDS: GLYCOPYRROLATE 1 MG TABLET GT SCH ×2 (08:39→17:37)
[2017-07-09] MEDS: BACLOFEN (10 MG) 10 MG TABLET GT SCH ×3 (08:39→17:37)
[2017-07-09] MEDS: POTASSIUM CHLORIDE 20 MEQ POWDER PACKET GT SCH (08:39)
[2017-07-09] MEDS: DOCUSATE SODIUM LIQ 100 MG/10 ML UDC GT SCH ×2 (08:39→17:37)
[2017-07-09] MEDS: PROSOURCE / PROSTAT (PYXIS) 30 ML UDC GT SCH ×2 (08:39→17:37)
[2017-07-09] MEDS: HEPARIN SODIUM, PORCINE 5000 UNITS/1 ML VIAL SQ SCH ×2 (08:40→21:10)
[2017-07-09] MEDS: HYDROGEN PEROXIDE 480 ML BOTTLE TP SCH ×2 (09:00→21:10)
[2017-07-09] MEDS: Z GUARD REMEDY 4 OZ OINT TP SCH ×2 (09:00→21:10)
--- NOTE | 2017-07-09 10:41 | NUR ---
Seen and examined by Dr. Bullard, NNO given.
[2017-07-09 19:34] VITALS: BP 100/57
[2017-07-09] MEDS: MULTIVIT, IRON, MIN NO. 8, FA 1 TAB GT SCH (21:09)
[2017-07-09] MEDS: SENNOSIDES 8.6 MG TABLET GT SCH (21:10)
[2017-07-09] MEDS: INSULIN DETEMIR 100 UNIT/ML CARTRIDGE SQ SCH (21:50)
[2017-07-10] MEDS: ALBUTEROL FS 2.5 MG/3 ML VIAL.NEB NEB SCH ×4 (02:15→19:42)
[2017-07-10] MEDS: IPRATROPIUM NEB FS 0.5 MG/2.5 ML AMPUL.NEB NEB SCH ×4 (02:15→19:42)
[2017-07-10] MEDS: PANTOPRAZOLE 40 MG/PACK PACK GT SCH (05:21)
[2017-07-10] MEDS: POLYVINYL ALCOHOL 15 ML BOTTLE EACHEYE SCH ×4 (05:21→23:13)
[2017-07-10] MEDS: INSULIN LISPRO/ASPART 100 UNIT/ML CARTRIDGE SQ PRN ×2 (06:04→18:36)
[2017-07-10] MEDS: BLOOD SUGAR DIAGNOSTIC 1 EACH STRIP IN SCH ×2 (06:04→18:36)
[2017-07-10] MEDS: GLYTROL 1,000 ML BAG GT PRN (06:47)
[2017-07-10] MEDS: POLYETHYLENE GLYCOL 3350 17 GM POWD.PACK GT PRN (06:47)
[2017-07-10 07:58] VITALS: BP 111/70
[2017-07-10] MEDS: LEVETIRACETAM SOL (5 ML) 100 MG/ML UDC GT SCH ×2 (08:49→21:02)
[2017-07-10] MEDS: PROSOURCE / PROSTAT (PYXIS) 30 ML UDC GT SCH ×2 (08:49→17:00)
[2017-07-10] MEDS: BACLOFEN (10 MG) 10 MG TABLET GT SCH ×3 (08:49→17:00)
[2017-07-10] MEDS: POTASSIUM CHLORIDE 20 MEQ POWDER PACKET GT SCH (08:49)
[2017-07-10] MEDS: FERROUS SULFATE - FOR SA ONLY 330 MG/7.5 ML UDC GT SCH ×3 (08:49→17:00)
[2017-07-10] MEDS: GLYCOPYRROLATE 1 MG TABLET GT SCH ×2 (08:49→17:00)
[2017-07-10] MEDS: ASCORBIC ACID 500 MG TABLET GT SCH ×2 (08:49→17:00)
[2017-07-10] MEDS: DOCUSATE SODIUM LIQ 100 MG/10 ML UDC GT SCH ×2 (08:49→17:00)
[2017-07-10] MEDS: Z GUARD REMEDY 4 OZ OINT TP SCH ×2 (08:51→21:03)
[2017-07-10] MEDS: HYDROGEN PEROXIDE 480 ML BOTTLE TP SCH ×2 (08:51→21:03)
[2017-07-10] MEDS: HEPARIN SODIUM, PORCINE 5000 UNITS/1 ML VIAL SQ SCH ×2 (08:51→21:03)
[2017-07-10 19:28] VITALS: BP 105/74
[2017-07-10] MEDS: SENNOSIDES 8.6 MG TABLET GT SCH (21:03)
[2017-07-10] MEDS: MULTIVIT, IRON, MIN NO. 8, FA 1 TAB GT SCH (21:03)
[2017-07-10] MEDS: INSULIN DETEMIR 100 UNIT/ML CARTRIDGE SQ SCH (22:11)
[2017-07-11] MEDS: ALBUTEROL FS 2.5 MG/3 ML VIAL.NEB NEB SCH ×4 (01:50→19:24)
[2017-07-11] MEDS: IPRATROPIUM NEB FS 0.5 MG/2.5 ML AMPUL.NEB NEB SCH ×4 (01:50→19:24)
[2017-07-11] MEDS: PANTOPRAZOLE 40 MG/PACK PACK GT SCH (05:10)
[2017-07-11] MEDS: POLYVINYL ALCOHOL 15 ML BOTTLE EACHEYE SCH ×4 (05:10→23:55)
[2017-07-11] MEDS: GLYTROL 1,000 ML BAG GT PRN (06:06)
[2017-07-11] MEDS: BISACODYL SUPP (10 MG) 10 MG/SUPP.RECT SUPP.RECT RC PRN (06:07)
[2017-07-11] MEDS: BLOOD SUGAR DIAGNOSTIC 1 EACH STRIP IN SCH ×2 (06:28→18:01)
[2017-07-11] MEDS: INSULIN LISPRO/ASPART 100 UNIT/ML CARTRIDGE SQ PRN ×2 (06:29→18:28)
[2017-07-11 07:58] VITALS: BP 103/60
[2017-07-11] MEDS: FERROUS SULFATE - FOR SA ONLY 330 MG/7.5 ML UDC GT SCH ×3 (08:34→17:10)
[2017-07-11] MEDS: GLYCOPYRROLATE 1 MG TABLET GT SCH ×2 (08:34→17:10)
[2017-07-11] MEDS: DOCUSATE SODIUM LIQ 100 MG/10 ML UDC GT SCH ×2 (08:34→17:10)
[2017-07-11] MEDS: POTASSIUM CHLORIDE 20 MEQ POWDER PACKET GT SCH (08:35)
[2017-07-11] MEDS: BACLOFEN (10 MG) 10 MG TABLET GT SCH ×3 (08:35→17:10)
[2017-07-11] MEDS: LEVETIRACETAM SOL (5 ML) 100 MG/ML UDC GT SCH ×2 (08:35→21:10)
[2017-07-11] MEDS: PROSOURCE / PROSTAT (PYXIS) 30 ML UDC GT SCH ×2 (08:35→17:10)
[2017-07-11] MEDS: ASCORBIC ACID 500 MG TABLET GT SCH ×2 (08:35→17:10)
[2017-07-11] MEDS: HEPARIN SODIUM, PORCINE 5000 UNITS/1 ML VIAL SQ SCH ×2 (08:37→21:10)
[2017-07-11] MEDS: HYDROGEN PEROXIDE 480 ML BOTTLE TP SCH ×2 (09:00→21:10)
[2017-07-11] MEDS: Z GUARD REMEDY 4 OZ OINT TP SCH ×2 (09:00→21:10)
[2017-07-11 19:24] VITALS: BP 100/62
[2017-07-11] MEDS: MULTIVIT, IRON, MIN NO. 8, FA 1 TAB GT SCH (21:10)
[2017-07-11] MEDS: SENNOSIDES 8.6 MG TABLET GT SCH (21:11)
[2017-07-11] MEDS: INSULIN DETEMIR 100 UNIT/ML CARTRIDGE SQ SCH (21:11)
[2017-07-12] MEDS: ALBUTEROL FS 2.5 MG/3 ML VIAL.NEB NEB SCH ×4 (01:30→19:25)
[2017-07-12] MEDS: IPRATROPIUM NEB FS 0.5 MG/2.5 ML AMPUL.NEB NEB SCH ×4 (01:30→19:25)
[2017-07-12] MEDS: POLYVINYL ALCOHOL 15 ML BOTTLE EACHEYE SCH ×3 (06:07→17:14)
[2017-07-12] MEDS: BLOOD SUGAR DIAGNOSTIC 1 EACH STRIP IN SCH ×2 (06:08→18:23)
[2017-07-12] MEDS: PANTOPRAZOLE 40 MG/PACK PACK GT SCH (06:08)
[2017-07-12 07:38] VITALS: BP 119/66
[2017-07-12] MEDS: GLYCOPYRROLATE 1 MG TABLET GT SCH ×2 (09:16→17:12)
[2017-07-12] MEDS: ASCORBIC ACID 500 MG TABLET GT SCH ×2 (09:16→17:14)
[2017-07-12] MEDS: FERROUS SULFATE - FOR SA ONLY 330 MG/7.5 ML UDC GT SCH ×3 (09:16→17:12)
[2017-07-12] MEDS: DOCUSATE SODIUM LIQ 100 MG/10 ML UDC GT SCH ×2 (09:16→17:12)
[2017-07-12] MEDS: POTASSIUM CHLORIDE 20 MEQ POWDER PACKET GT SCH (09:16)
[2017-07-12] MEDS: LEVETIRACETAM SOL (5 ML) 100 MG/ML UDC GT SCH ×2 (09:16→21:19)
[2017-07-12] MEDS: PROSOURCE / PROSTAT (PYXIS) 30 ML UDC GT SCH ×2 (09:16→17:14)
[2017-07-12] MEDS: BACLOFEN (10 MG) 10 MG TABLET GT SCH ×3 (09:16→17:14)
[2017-07-12] MEDS: HYDROGEN PEROXIDE 480 ML BOTTLE TP SCH ×2 (09:17→21:20)
[2017-07-12] MEDS: HEPARIN SODIUM, PORCINE 5000 UNITS/1 ML VIAL SQ SCH ×2 (09:17→21:19)
[2017-07-12] MEDS: Z GUARD REMEDY 4 OZ OINT TP SCH ×2 (09:17→21:20)
[2017-07-12] MEDS: INSULIN LISPRO/ASPART 100 UNIT/ML CARTRIDGE SQ PRN (18:23)
[2017-07-12 19:57] VITALS: BP 105/68
[2017-07-12] MEDS: MULTIVIT, IRON, MIN NO. 8, FA 1 TAB GT SCH (21:19)
[2017-07-12] MEDS: SENNOSIDES 8.6 MG TABLET GT SCH (21:20)
[2017-07-12] MEDS: INSULIN DETEMIR 100 UNIT/ML CARTRIDGE SQ SCH (21:20)
[2017-07-13] MEDS: POLYVINYL ALCOHOL 15 ML BOTTLE EACHEYE SCH ×5 (00:39→23:17)
[2017-07-13] MEDS: ALBUTEROL FS 2.5 MG/3 ML VIAL.NEB NEB SCH ×4 (00:44→20:15)
[2017-07-13] MEDS: IPRATROPIUM NEB FS 0.5 MG/2.5 ML AMPUL.NEB NEB SCH ×4 (00:44→20:15)
[2017-07-13] MEDS: PANTOPRAZOLE 40 MG/PACK PACK GT SCH (05:39)
[2017-07-13] MEDS: BLOOD SUGAR DIAGNOSTIC 1 EACH STRIP IN SCH ×2 (05:39→17:28)
[2017-07-13 07:35] VITALS: BP 119/68
[2017-07-13] MEDS: HYDROGEN PEROXIDE 480 ML BOTTLE TP SCH ×2 (09:00→21:47)
[2017-07-13] MEDS: Z GUARD REMEDY 4 OZ OINT TP SCH ×2 (09:00→21:47)
[2017-07-13] MEDS: BACLOFEN (10 MG) 10 MG TABLET GT SCH ×3 (09:23→17:28)
[2017-07-13] MEDS: PROSOURCE / PROSTAT (PYXIS) 30 ML UDC GT SCH ×2 (09:23→17:28)
[2017-07-13] MEDS: GLYCOPYRROLATE 1 MG TABLET GT SCH ×2 (09:23→17:28)
[2017-07-13] MEDS: FERROUS SULFATE - FOR SA ONLY 330 MG/7.5 ML UDC GT SCH ×3 (09:23→17:28)
[2017-07-13] MEDS: ASCORBIC ACID 500 MG TABLET GT SCH ×2 (09:23→17:28)
[2017-07-13] MEDS: DOCUSATE SODIUM LIQ 100 MG/10 ML UDC GT SCH ×2 (09:23→17:28)
[2017-07-13] MEDS: POTASSIUM CHLORIDE 20 MEQ POWDER PACKET GT SCH (09:23)
[2017-07-13] MEDS: LEVETIRACETAM SOL (5 ML) 100 MG/ML UDC GT SCH ×2 (09:23→21:46)
[2017-07-13] MEDS: HEPARIN SODIUM, PORCINE 5000 UNITS/1 ML VIAL SQ SCH ×2 (09:31→21:47)
--- NOTE | 2017-07-13 16:43 | NUR ---
RT NOTE END OF SHIFT SUMMERY PT REMAINS ON [facility] VENT WITH NOTED SETTINGS. SX MOD AMOUNT OF SECRETIONS. TRACH AND VENT TUBING INTACT. VENT PLUGGED INTO RED OUTLET. AMBU BAG/SPARE TRACH AT BEDSIDE. VENT ALARMS ARE SET AND AUDIBLE PER POLICY. DISCONNECT ALARM VERIFIED. NO DISTRESS T/O SHIFT. Addendum: 07/13/17 at 1644 by KARI LAI RT Amended: Links added.
[2017-07-13] MEDS: INSULIN LISPRO/ASPART 100 UNIT/ML CARTRIDGE SQ PRN (17:29)
[2017-07-13 20:20] VITALS: BP 106/65
[2017-07-13] MEDS: MULTIVIT, IRON, MIN NO. 8, FA 1 TAB GT SCH (21:46)
[2017-07-13] MEDS: SENNOSIDES 8.6 MG TABLET GT SCH (21:47)
[2017-07-13] MEDS: INSULIN DETEMIR 100 UNIT/ML CARTRIDGE SQ SCH (22:05)
[2017-07-13] MEDS: GLYTROL 1,000 ML BAG GT PRN (23:07)
[2017-07-14] MEDS: ALBUTEROL FS 2.5 MG/3 ML VIAL.NEB NEB SCH ×4 (01:09→19:25)
[2017-07-14] MEDS: IPRATROPIUM NEB FS 0.5 MG/2.5 ML AMPUL.NEB NEB SCH ×4 (01:09→19:25)
--- NOTE | 2017-07-14 02:04 | NUR ---
PT STABLE ON RECEIVED VENTS SETTINGS. NO S/S OF SOB NOTED. PT SX PRN FOR MOD AMOUNT OF PALE YELLOW SECRETIONS. ALARMS CHECKED AND AUDIBLE THROUGHOUT SUBACUTE UNIT. MECHANICAL VENTILATOR PLUGGED INTO RED OUTLET. TRACH CARE DONE. WILL CONTINUE TO MONITOR PT. Addendum: 07/14/17 at 0210 by NAGI SHARIF RT Amended: Links added.
[2017-07-14] MEDS: POLYVINYL ALCOHOL 15 ML BOTTLE EACHEYE SCH ×4 (05:33→23:37)
[2017-07-14] MEDS: BLOOD SUGAR DIAGNOSTIC 1 EACH STRIP IN SCH ×2 (05:34→17:52)
[2017-07-14] MEDS: INSULIN LISPRO/ASPART 100 UNIT/ML CARTRIDGE SQ PRN ×2 (05:34→17:53)
[2017-07-14] MEDS: PANTOPRAZOLE 40 MG/PACK PACK GT SCH (05:34)
[2017-07-14] MEDS: POLYETHYLENE GLYCOL 3350 17 GM POWD.PACK GT PRN (06:33)
[2017-07-14 07:39] VITALS: BP 112/68
[2017-07-14] MEDS: DOCUSATE SODIUM LIQ 100 MG/10 ML UDC GT SCH ×2 (09:33→17:52)
[2017-07-14] MEDS: ASCORBIC ACID 500 MG TABLET GT SCH ×2 (09:33→17:52)
[2017-07-14] MEDS: GLYCOPYRROLATE 1 MG TABLET GT SCH ×2 (09:33→17:52)
[2017-07-14] MEDS: BACLOFEN (10 MG) 10 MG TABLET GT SCH ×3 (09:33→17:52)
[2017-07-14] MEDS: POTASSIUM CHLORIDE 20 MEQ POWDER PACKET GT SCH (09:33)
[2017-07-14] MEDS: LEVETIRACETAM SOL (5 ML) 100 MG/ML UDC GT SCH ×2 (09:33→21:25)
[2017-07-14] MEDS: FERROUS SULFATE - FOR SA ONLY 330 MG/7.5 ML UDC GT SCH ×3 (09:33→17:52)
[2017-07-14] MEDS: Z GUARD REMEDY 4 OZ OINT TP SCH ×2 (09:33→21:26)
[2017-07-14] MEDS: HEPARIN SODIUM, PORCINE 5000 UNITS/1 ML VIAL SQ SCH ×2 (09:33→21:26)
[2017-07-14] MEDS: HYDROGEN PEROXIDE 480 ML BOTTLE TP SCH ×2 (09:33→21:26)
[2017-07-14] MEDS: PROSOURCE / PROSTAT (PYXIS) 30 ML UDC GT SCH ×2 (09:33→17:52)
[2017-07-14 19:45] VITALS: BP 117/74
[2017-07-14] MEDS: MULTIVIT, IRON, MIN NO. 8, FA 1 TAB GT SCH (21:25)
[2017-07-14] MEDS: SENNOSIDES 8.6 MG TABLET GT SCH (21:26)
[2017-07-14] MEDS: INSULIN DETEMIR 100 UNIT/ML CARTRIDGE SQ SCH (21:58)
[2017-07-14] MEDS: GLYTROL 1,000 ML BAG GT PRN (22:10)
[2017-07-15] MEDS: ALBUTEROL FS 2.5 MG/3 ML VIAL.NEB NEB SCH ×4 (01:53→19:33)
[2017-07-15] MEDS: IPRATROPIUM NEB FS 0.5 MG/2.5 ML AMPUL.NEB NEB SCH ×4 (01:53→19:32)
[2017-07-15] MEDS: POLYVINYL ALCOHOL 15 ML BOTTLE EACHEYE SCH ×3 (05:36→17:16)
[2017-07-15] MEDS: PANTOPRAZOLE 40 MG/PACK PACK GT SCH (05:36)
[2017-07-15] MEDS: BLOOD SUGAR DIAGNOSTIC 1 EACH STRIP IN SCH ×2 (05:43→18:07)
[2017-07-15] MEDS: INSULIN LISPRO/ASPART 100 UNIT/ML CARTRIDGE SQ PRN ×2 (05:43→18:09)
[2017-07-15] MEDS: BISACODYL SUPP (10 MG) 10 MG/SUPP.RECT SUPP.RECT RC PRN (06:31)
[2017-07-15 07:37] VITALS: BP 113/68
[2017-07-15] MEDS: ASCORBIC ACID 500 MG TABLET GT SCH ×2 (08:39→17:15)
[2017-07-15] MEDS: Z GUARD REMEDY 4 OZ OINT TP SCH ×2 (08:39→21:24)
[2017-07-15] MEDS: PROSOURCE / PROSTAT (PYXIS) 30 ML UDC GT SCH ×2 (08:39→17:15)
[2017-07-15] MEDS: DOCUSATE SODIUM LIQ 100 MG/10 ML UDC GT SCH ×2 (08:39→17:15)
[2017-07-15] MEDS: FERROUS SULFATE - FOR SA ONLY 330 MG/7.5 ML UDC GT SCH ×3 (08:39→17:15)
[2017-07-15] MEDS: HEPARIN SODIUM, PORCINE 5000 UNITS/1 ML VIAL SQ SCH ×2 (09:00→21:24)
[2017-07-15] MEDS: GLYCOPYRROLATE 1 MG TABLET GT SCH ×2 (09:00→17:15)
[2017-07-15] MEDS: HYDROGEN PEROXIDE 480 ML BOTTLE TP SCH ×2 (09:00→21:24)
[2017-07-15] MEDS: BACLOFEN (10 MG) 10 MG TABLET GT SCH ×3 (09:00→17:15)
[2017-07-15] MEDS: POTASSIUM CHLORIDE 20 MEQ POWDER PACKET GT SCH (09:00)
[2017-07-15] MEDS: LEVETIRACETAM SOL (5 ML) 100 MG/ML UDC GT SCH ×2 (09:00→21:23)
--- NOTE | 2017-07-15 16:29 | NUR ---
Female trach pt tolerated current vent settings throughout the shift. PT trach is secure. Vent is plugged into a red outlet, alarms are set and audible, and BVM is at bedside. Addendum: 07/15/17 at 1631 by SHABNAM GROSSMAN RT Amended: Links added.
[2017-07-15 19:38] VITALS: BP 100/52
[2017-07-15] MEDS: MULTIVIT, IRON, MIN NO. 8, FA 1 TAB GT SCH (21:23)
[2017-07-15] MEDS: SENNOSIDES 8.6 MG TABLET GT SCH (21:24)
[2017-07-15] MEDS: INSULIN DETEMIR 100 UNIT/ML CARTRIDGE SQ SCH (21:24)
[2017-07-15] MEDS: ACETAMINOPHEN 650 MG/20 ML UDC- FOR SA PATIENTS ONLY GT PRN (21:32)
[2017-07-16] MEDS: POLYVINYL ALCOHOL 15 ML BOTTLE EACHEYE SCH ×4 (00:27→17:55)
[2017-07-16] MEDS: GLYTROL 1,000 ML BAG GT PRN (00:28)
[2017-07-16] MEDS: IPRATROPIUM NEB FS 0.5 MG/2.5 ML AMPUL.NEB NEB SCH ×4 (01:30→19:17)
[2017-07-16] MEDS: ALBUTEROL FS 2.5 MG/3 ML VIAL.NEB NEB SCH ×4 (01:30→19:17)
[2017-07-16] MEDS: PANTOPRAZOLE 40 MG/PACK PACK GT SCH (05:24)
[2017-07-16] MEDS: INSULIN LISPRO/ASPART 100 UNIT/ML CARTRIDGE SQ PRN ×2 (05:28→17:52)
[2017-07-16] MEDS: BLOOD SUGAR DIAGNOSTIC 1 EACH STRIP IN SCH ×2 (05:28→17:52)
[2017-07-16 07:26] VITALS: BP 109/73
[2017-07-16] MEDS: POTASSIUM CHLORIDE 20 MEQ POWDER PACKET GT SCH (08:57)
[2017-07-16] MEDS: LEVETIRACETAM SOL (5 ML) 100 MG/ML UDC GT SCH ×2 (08:57→21:47)
[2017-07-16] MEDS: DOCUSATE SODIUM LIQ 100 MG/10 ML UDC GT SCH ×2 (08:57→16:25)
[2017-07-16] MEDS: FERROUS SULFATE - FOR SA ONLY 330 MG/7.5 ML UDC GT SCH ×3 (08:57→16:25)
[2017-07-16] MEDS: GLYCOPYRROLATE 1 MG TABLET GT SCH ×2 (08:57→16:25)
[2017-07-16] MEDS: HEPARIN SODIUM, PORCINE 5000 UNITS/1 ML VIAL SQ SCH ×2 (08:58→21:47)
[2017-07-16] MEDS: ASCORBIC ACID 500 MG TABLET GT SCH ×2 (08:58→16:25)
[2017-07-16] MEDS: PROSOURCE / PROSTAT (PYXIS) 30 ML UDC GT SCH ×2 (08:58→16:25)
[2017-07-16] MEDS: BACLOFEN (10 MG) 10 MG TABLET GT SCH ×3 (09:46→16:25)
[2017-07-16] MEDS: HYDROGEN PEROXIDE 480 ML BOTTLE TP SCH ×2 (09:46→21:47)
[2017-07-16] MEDS: Z GUARD REMEDY 4 OZ OINT TP SCH ×2 (09:46→21:47)
--- NOTE | 2017-07-16 16:18 | NUR ---
RECEIVED PT ON [facility] VENT TRACH ON SETTINGS PER MD. AIRWAY PATENT. SX MOD AMOUNT OF THICK PALE YELLOW SECRETIONS. TRACH AND VENT TUBING INTACT. VENT PLUGGED INTO RED OUTLET. AMBU BAG/SPARE TRACH AT BEDSIDE. VENT ALARMS ARE SET AND AUDIBLE NO DISTRESS NOTED DURING SHIFT. Addendum: 07/16/17 at 1619 by SAMANTHA LARKIN RT Amended: Links added.
[2017-07-16 19:31] VITALS: BP 104/55
[2017-07-16] MEDS: MULTIVIT, IRON, MIN NO. 8, FA 1 TAB GT SCH (21:47)
[2017-07-16] MEDS: SENNOSIDES 8.6 MG TABLET GT SCH (21:47)
[2017-07-16] MEDS: INSULIN DETEMIR 100 UNIT/ML CARTRIDGE SQ SCH (22:28)
[2017-07-17] MEDS: POLYVINYL ALCOHOL 15 ML BOTTLE EACHEYE SCH ×5 (00:25→23:52)
[2017-07-17] MEDS: ALBUTEROL FS 2.5 MG/3 ML VIAL.NEB NEB SCH ×4 (01:12→19:40)
[2017-07-17] MEDS: IPRATROPIUM NEB FS 0.5 MG/2.5 ML AMPUL.NEB NEB SCH ×4 (01:12→19:40)
[2017-07-17] MEDS: BLOOD SUGAR DIAGNOSTIC 1 EACH STRIP IN SCH ×2 (06:11→17:04)
[2017-07-17] MEDS: PANTOPRAZOLE 40 MG/PACK PACK GT SCH (06:11)
[2017-07-17] MEDS: INSULIN LISPRO/ASPART 100 UNIT/ML CARTRIDGE SQ PRN (06:12)
[2017-07-17] MEDS: GLYTROL 1,000 ML BAG GT PRN (06:12)
[2017-07-17 07:24] VITALS: BP 124/65
[2017-07-17] MEDS: LEVETIRACETAM SOL (5 ML) 100 MG/ML UDC GT SCH ×2 (08:25→20:09)
[2017-07-17] MEDS: GLYCOPYRROLATE 1 MG TABLET GT SCH ×2 (08:25→16:20)
[2017-07-17] MEDS: POTASSIUM CHLORIDE 20 MEQ POWDER PACKET GT SCH (08:25)
[2017-07-17] MEDS: BACLOFEN (10 MG) 10 MG TABLET GT SCH ×3 (08:25→16:20)
[2017-07-17] MEDS: DOCUSATE SODIUM LIQ 100 MG/10 ML UDC GT SCH ×2 (08:25→16:20)
[2017-07-17] MEDS: FERROUS SULFATE - FOR SA ONLY 330 MG/7.5 ML UDC GT SCH ×3 (08:25→16:20)
[2017-07-17] MEDS: HEPARIN SODIUM, PORCINE 5000 UNITS/1 ML VIAL SQ SCH ×2 (08:26→20:10)
[2017-07-17] MEDS: ASCORBIC ACID 500 MG TABLET GT SCH ×2 (08:26→16:21)
[2017-07-17] MEDS: PROSOURCE / PROSTAT (PYXIS) 30 ML UDC GT SCH ×2 (08:26→16:21)
[2017-07-17] MEDS: HYDROGEN PEROXIDE 480 ML BOTTLE TP SCH ×2 (09:00→20:11)
[2017-07-17] MEDS: Z GUARD REMEDY 4 OZ OINT TP SCH ×2 (09:00→20:11)
--- NOTE | 2017-07-17 16:51 | NUR ---
NO VENT CHANGES MADE. Addendum: 07/17/17 at 1651 by QUETA REYNA RT Amended: Links added.
[2017-07-17 19:29] VITALS: BP 112/58
[2017-07-17] MEDS: MULTIVIT, IRON, MIN NO. 8, FA 1 TAB GT SCH (20:09)
[2017-07-17] MEDS: SENNOSIDES 8.6 MG TABLET GT SCH (22:00)
[2017-07-17] MEDS: INSULIN DETEMIR 100 UNIT/ML CARTRIDGE SQ SCH (22:00)
[2017-07-18] MEDS: IPRATROPIUM NEB FS 0.5 MG/2.5 ML AMPUL.NEB NEB SCH ×4 (00:56→20:10)
[2017-07-18] MEDS: PANTOPRAZOLE 40 MG/PACK PACK GT SCH (05:05)
[2017-07-18] MEDS: POLYVINYL ALCOHOL 15 ML BOTTLE EACHEYE SCH ×3 (05:05→18:02)
[2017-07-18] MEDS: BLOOD SUGAR DIAGNOSTIC 1 EACH STRIP IN SCH ×2 (05:11→18:00)
[2017-07-18] MEDS: GLYTROL 1,000 ML BAG GT PRN (05:50)
[2017-07-18] MEDS: ALBUTEROL FS 2.5 MG/3 ML VIAL.NEB NEB SCH ×3 (07:22→20:10)
[2017-07-18 07:41] VITALS: BP 105/72
[2017-07-18] MEDS: ASCORBIC ACID 500 MG TABLET GT SCH ×2 (08:09→16:21)
[2017-07-18] MEDS: POTASSIUM CHLORIDE 20 MEQ POWDER PACKET GT SCH (08:09)
[2017-07-18] MEDS: GLYCOPYRROLATE 1 MG TABLET GT SCH ×2 (08:09→16:21)
[2017-07-18] MEDS: DOCUSATE SODIUM LIQ 100 MG/10 ML UDC GT SCH ×2 (08:09→16:21)
[2017-07-18] MEDS: BACLOFEN (10 MG) 10 MG TABLET GT SCH ×3 (08:09→16:21)
[2017-07-18] MEDS: LEVETIRACETAM SOL (5 ML) 100 MG/ML UDC GT SCH ×2 (08:09→20:14)
[2017-07-18] MEDS: FERROUS SULFATE - FOR SA ONLY 330 MG/7.5 ML UDC GT SCH ×3 (08:09→16:21)
[2017-07-18] MEDS: PROSOURCE / PROSTAT (PYXIS) 30 ML UDC GT SCH ×2 (08:09→16:21)
[2017-07-18] MEDS: HYDROGEN PEROXIDE 480 ML BOTTLE TP SCH ×2 (09:00→20:17)
[2017-07-18] MEDS: Z GUARD REMEDY 4 OZ OINT TP SCH ×2 (09:00→20:17)
[2017-07-18] MEDS: HEPARIN SODIUM, PORCINE 5000 UNITS/1 ML VIAL SQ SCH ×2 (09:00→20:15)
--- NOTE | 2017-07-18 11:05 | NUR ---
made rounds and seen the pt and no new orders noted.
--- NOTE | 2017-07-18 16:12 | NUR ---
RECEIVED PT ON [facility] VENT TRACH. ON VENT SETTINGS NOTED AND ORDERED BY . AIRWAY PATENT. SX MOD AMOUNT OF THICK PALE YELLOW SECRETIONS. TRACH AND VENT TUBING INTACT. VENT PLUGGED INTO RED OUTLET. AMBU BAG/SPARE TRACH AT BEDSIDE. VENT ALARMS ARE SET AND AUDIBLE NO DISTRESS NOTED DURING SHIFT. Addendum: 07/18/17 at 1613 by SAMANTHA LARKIN RT Amended: Links added.
[2017-07-18] MEDS: INSULIN LISPRO/ASPART 100 UNIT/ML CARTRIDGE SQ PRN (18:02)
[2017-07-18] MEDS: MULTIVIT, IRON, MIN NO. 8, FA 1 TAB GT SCH (20:14)
[2017-07-18] MEDS: SENNOSIDES 8.6 MG TABLET GT SCH (21:25)
[2017-07-18] MEDS: INSULIN DETEMIR 100 UNIT/ML CARTRIDGE SQ SCH (21:26)
[2017-07-18 22:28] VITALS: BP 100/72
[2017-07-19] MEDS: POLYVINYL ALCOHOL 15 ML BOTTLE EACHEYE SCH ×2 (00:07→05:57)
[2017-07-19] MEDS: ALBUTEROL FS 2.5 MG/3 ML VIAL.NEB NEB SCH ×2 (01:16→07:49)
[2017-07-19] MEDS: IPRATROPIUM NEB FS 0.5 MG/2.5 ML AMPUL.NEB NEB SCH ×2 (01:16→07:49)
--- NOTE | 2017-07-19 04:37 | NUR ---
PT STABLE ON RECEIVED SETTINGS. NO SIGNS OF SOB NOTED. PT SX PRN FOR MOD AMOUNT OF PALE YELLOW SECRETIONS. ALARMS CHECKED AND AUDIBLE THROUGHOUT UNIT. VENTILATOR PLUGGED INTO RED OUTLET. WILL CONTINUE TO MONITOR PT. Addendum: 07/19/17 at 0437 by ANALY PENA RT Amended: Links added.
[2017-07-19] MEDS: PANTOPRAZOLE 40 MG/PACK PACK GT SCH (05:57)
[2017-07-19] MEDS: BLOOD SUGAR DIAGNOSTIC 1 EACH STRIP IN SCH (05:57)
[2017-07-19 08:05] VITALS: BP 106/73
[2017-07-19] MEDS: DOCUSATE SODIUM LIQ 100 MG/10 ML UDC GT SCH (09:22)
[2017-07-19] MEDS: GLYCOPYRROLATE 1 MG TABLET GT SCH (09:22)
[2017-07-19] MEDS: FERROUS SULFATE - FOR SA ONLY 330 MG/7.5 ML UDC GT SCH (09:22)
[2017-07-19] MEDS: LEVETIRACETAM SOL (5 ML) 100 MG/ML UDC GT SCH (09:24)
[2017-07-19] MEDS: POTASSIUM CHLORIDE 20 MEQ POWDER PACKET GT SCH (09:24)
[2017-07-19] MEDS: BACLOFEN (10 MG) 10 MG TABLET GT SCH (09:25)
[2017-07-19] MEDS: ASCORBIC ACID 500 MG TABLET GT SCH (09:25)
[2017-07-19] MEDS: PROSOURCE / PROSTAT (PYXIS) 30 ML UDC GT SCH (09:25)
[2017-07-19] MEDS: HEPARIN SODIUM, PORCINE 5000 UNITS/1 ML VIAL SQ SCH (09:26)
[2017-07-19] MEDS: Z GUARD REMEDY 4 OZ OINT TP SCH (09:26)
== END 2017-07-17 23:59 | disposition still patient (30) | DRG 133 ==
LOC: SA
DX: J96.10 Chronic respiratory failure, unspecified whether with hypoxia or hypercapnia (principal); G93.1 Anoxic brain damage, not elsewhere classified; R40.3 Persistent vegetative state; Z93.0 Tracheostomy status; R13.10 Dysphagia, unspecified; Z93.1 Gastrostomy status; E11.9 Type 2 diabetes mellitus without complications; D64.9 Anemia, unspecified; S06.5X0S Traumatic subdural hemorrhage without loss of consciousness, sequela; X58.XXXS Exposure to other specified factors, sequela; H10.9 Unspecified conjunctivitis
CPT/HCPCS: 31720; 36415; 36600; 71010-TC; 74000-TC; 80048-TC; 80053-TC; 80076-TC; 80202-TC; 81000-TC; 82962-TC; 85025-TC; 87040-TC; 87070-TC; 87086-TC; 87186-TC; 94002-TC; 94003-TC; 94640-TC; 94760-TC; 94762-TC; 94799-TC; 99082-TC; A4623; A6402; A7526; J0696; J1644; J1815; J1953; J2543; J3370; J3490; J7030; J7040; J7060; Q2036; Q9963; Z7610

== ENCOUNTER 2017-07-18 00:01 | Inpatient (IN) | END 2018-07-17 23:59 | disposition still patient (30) | DRG 130 | DX: J96.11 Chronic respiratory failure with hypoxia (principal); G93.1 Anoxic brain damage, not elsewhere classified; A41.9 Sepsis, unspecified organism; R53.2 Functional quadriplegia; R13.10 Dysphagia, unspecified; Z99.11 Dependence on respirator [ventilator] status; Z93.0 Tracheostomy status; E11.9 Type 2 diabetes mellitus without complications; D64.9 Anemia, unspecified; S06.5X0S Traumatic subdural hemorrhage without loss of consciousness, sequela; Z93.1 Gastrostomy status; X58.XXXS Exposure to other specified factors, sequela; H10.9 Unspecified conjunctivitis; B36.9 Superficial mycosis, unspecified; S06.6X0S Traumatic subarachnoid hemorrhage without loss of consciousness, sequela; D63.8 Anemia in other chronic diseases classified elsewhere; L60.3 Nail dystrophy; D69.2 Other nonthrombocytopenic purpura; D72.829 Elevated white blood cell count, unspecified; E66.01 Morbid (severe) obesity due to excess calories; Z68.29 Body mass index [BMI] 29.0-29.9, adult; N39.0 Urinary tract infection, site not specified; R56.9 Unspecified convulsions; G25.3 Myoclonus; I25.10 Atherosclerotic heart disease of native coronary artery without angina pectoris ==

== ENCOUNTER 2018-07-18 | Inpatient (IN) | payer MEDICAID, OTHER ==
[~2018-07-18] VITALS: Ht 160 cm; Wt 70.3 kg
[2018-07-19] MEDS: HYDROGEN PEROXIDE 480 ML BOTTLE TP SCH ×2 (10:21→21:59)
--- NOTE | 2018-07-19 10:29 | NUR ---
Please see resident's previous account [phone] for all assessments and nurses notes. Originally admitted on 03/14/14.
--- NOTE | 2018-07-19 10:29 | NUR ---
Please see resident's previous account [id number] for Social Service assessments, evaluations and notes. collision worker met with the resident's sister Beba Horvath to complete intake paperwork (patient rights acknowledgement, documentation of preferred intensity of care, conditions of admission, [place] Standard Admission Agreement, and voluntary prior express consent form). collision worker educated the resident's sister on advanced healthcare directives/conservatorship. Resident's sister noted she has been the primary decision maker but has no legal paperwork (advanced healthcare directive/conservatorship).She declined to file for conservatorship at this time and resident is not alert to complete advanced healthcare directive.
[2018-07-19] MEDS ORDERED: ALBUTEROL FS 2.5 MG/3 ML VIAL.NEB NEB PRN (10:30)
[2018-07-19] MEDS ORDERED: IPRATROPIUM NEB FS 0.5 MG/2.5 ML AMPUL.NEB IH PRN (10:30)
[2018-07-19] MEDS ORDERED: DEXTROSE 50%-WATER 50 ML DISP.SYRIN IV PRN (10:30)
[2018-07-19] MEDS ORDERED: HYDROGEN PEROXIDE 480 ML BOTTLE TP PRN (10:30)
--- NOTE | 2018-07-19 10:31 | NUR ---
RT RECD PT TRACHED INTACT AND SECURED TUTU ORDERED SETTINGS. ALARMS ON AND AUDIBLE BAG AND MASK AT HOB. VENT PLUGGED IN RED OUTLET. TXS GIVEN TUTU'D WLL NO ADVERSE REACTION NOTED ATT. SX THICK YELLOW MODERATE SECRETIONS. NO RESP DISTRESS WILL CONT TO MONITOR
[2018-07-19] MEDS: FERROUS SULFATE - FOR SA ONLY 330 MG/7.5 ML UDC GT SCH ×3 (11:00→17:10)
[2018-07-19] MEDS: DOCUSATE SODIUM LIQ 100 MG/10 ML UDC GT SCH ×2 (11:00→17:10)
[2018-07-19] MEDS: Z GUARD REMEDY 4 OZ OINT TP SCH ×2 (11:00→21:59)
[2018-07-19] MEDS: ASCORBIC ACID 500 MG TABLET GT SCH ×2 (11:00→17:10)
[2018-07-19] MEDS: BACLOFEN (10 MG) 10 MG TABLET GT SCH ×3 (11:01→17:10)
[2018-07-19] MEDS: PROSOURCE / PROSTAT (PYXIS) 30 ML UDC GT SCH ×2 (11:01→17:10)
[2018-07-19] MEDS: HEPARIN SODIUM, PORCINE 5000 UNITS/1 ML VIAL SQ SCH ×2 (11:01→21:59)
[2018-07-19] MEDS: POTASSIUM CHLORIDE 20 MEQ/15 ML GT SCH (11:01)
[2018-07-19] MEDS: LEVETIRACETAM SOL (5 ML) 100 MG/ML UDC GT SCH ×2 (11:02→21:58)
[2018-07-19] MEDS: METFORMIN 500 MG TABLET PO SCH ×2 (11:02→17:10)
[2018-07-19] MEDS: POLYVINYL ALCOHOL 15 ML BOTTLE EACHEYE SCH ×2 (12:00→18:14)
[2018-07-19 12:42] VITALS: BP 139/79
[2018-07-19] MEDS: IPRATROPIUM NEB FS 0.5 MG/2.5 ML AMPUL.NEB NEB SCH ×2 (13:30→20:05)
[2018-07-19] MEDS: ALBUTEROL FS 2.5 MG/3 ML VIAL.NEB NEB SCH ×2 (13:30→20:05)
[2018-07-19] MEDS: GLUCERNA 1.2 1,000 ML BOTTLE GT PRN (17:11)
[2018-07-19] MEDS: BLOOD SUGAR DIAGNOSTIC 1 EACH STRIP IN SCH (18:14)
[2018-07-19] MEDS: INSULIN LISPRO/ASPART 100 UNIT/ML CARTRIDGE SQ PRN (18:14)
[2018-07-19 19:40] VITALS: BP 118/73
[2018-07-19] MEDS: MULTIVIT W/MINERALS 1 TAB TABLET GT SCH (21:58)
[2018-07-19] MEDS: SENNOSIDES 8.6 MG TABLET GT SCH (21:59)
[2018-07-19] MEDS: FUNGI NAIL TP SCH (21:59)
[2018-07-19] MEDS: BASAGLAR SQ SCH (22:54)
[2018-07-20] MEDS: POLYVINYL ALCOHOL 15 ML BOTTLE EACHEYE SCH ×5 (00:24→23:54)
[2018-07-20] MEDS: ALBUTEROL FS 2.5 MG/3 ML VIAL.NEB NEB SCH ×4 (01:47→20:06)
[2018-07-20] MEDS: IPRATROPIUM NEB FS 0.5 MG/2.5 ML AMPUL.NEB NEB SCH ×4 (01:47→20:06)
[2018-07-20] MEDS ORDERED: OMEPRAZOLE DR 20 MG GT SCH (06:00)
[2018-07-20] MEDS: BLOOD SUGAR DIAGNOSTIC 1 EACH STRIP IN SCH ×2 (06:54→19:21)
[2018-07-20] MEDS: INSULIN LISPRO/ASPART 100 UNIT/ML CARTRIDGE SQ PRN ×2 (06:57→19:22)
--- NOTE | 2018-07-20 07:36 | NUR ---
Female sergio pt received on a mechanical vent. Pt sergio is secure. Pt receives Q6 breathing tx. Vent is plugged into a red outlet, alarms are set and audible, and BMV is at beside. Addendum: 07/20/18 at 0737 by SHABNAM GROSSMAN RT Amended: Links added.
[2018-07-20 07:50] VITALS: BP 113/72
[2018-07-20] MEDS: DOCUSATE SODIUM LIQ 100 MG/10 ML UDC GT SCH ×2 (09:30→17:00)
[2018-07-20] MEDS: LEVETIRACETAM SOL (5 ML) 100 MG/ML UDC GT SCH ×2 (09:31→20:22)
[2018-07-20] MEDS: FERROUS SULFATE - FOR SA ONLY 330 MG/7.5 ML UDC GT SCH ×3 (09:31→17:00)
[2018-07-20] MEDS: METFORMIN 500 MG TABLET PO SCH ×2 (09:32→17:00)
[2018-07-20] MEDS: BACLOFEN (10 MG) 10 MG TABLET GT SCH ×3 (09:32→17:00)
[2018-07-20] MEDS: PROSOURCE / PROSTAT (PYXIS) 30 ML UDC GT SCH ×2 (09:34→17:00)
[2018-07-20] MEDS: POTASSIUM CHLORIDE 20 MEQ/15 ML GT SCH (09:34)
[2018-07-20] MEDS: ASCORBIC ACID 500 MG TABLET GT SCH ×2 (09:34→17:00)
[2018-07-20] MEDS: HEPARIN SODIUM, PORCINE 5000 UNITS/1 ML VIAL SQ SCH ×2 (09:38→20:22)
[2018-07-20] MEDS: HYDROGEN PEROXIDE 480 ML BOTTLE TP SCH ×2 (09:38→20:23)
[2018-07-20] MEDS: FUNGI NAIL TP SCH ×2 (09:39→20:23)
[2018-07-20] MEDS: Z GUARD REMEDY 4 OZ OINT TP SCH ×2 (09:39→20:23)
[2018-07-20] MEDS: GLUCERNA 1.2 1,000 ML BOTTLE GT PRN (16:09)
[2018-07-20] MEDS: MULTIVIT W/MINERALS 1 TAB TABLET GT SCH (20:22)
--- NOTE | 2018-07-20 20:30 | NUR ---
Seen by LORENZO betancourt new order.
[2018-07-20 20:49] VITALS: BP 124/75
--- NOTE | 2018-07-20 20:51 | NUR ---
RT NOTE PATIENT RECEIVED TRACHED ON MECHANICAL VENTILATION. AMBU BAG/BACK UP TRACH @ BEDSIDE. TX GIVEN, NO ADVERSE REACTIONS NOTED. SX DONE, MODERATE THICK WHITE SECRETIONS NOTED. ALARMS ON AND AUDIBLE. PATIENT STABLE. WILL MONITOR T/O SHIFT. Addendum: 07/20/18 at 2050 by ABIOLA COMBS RT Amended: Links added.
[2018-07-20] MEDS: SENNOSIDES 8.6 MG TABLET GT SCH (21:15)
[2018-07-20] MEDS: BASAGLAR SQ SCH (21:16)
[2018-07-21] MEDS: ALBUTEROL FS 2.5 MG/3 ML VIAL.NEB NEB SCH ×4 (01:28→19:21)
[2018-07-21] MEDS: IPRATROPIUM NEB FS 0.5 MG/2.5 ML AMPUL.NEB NEB SCH ×4 (01:29→19:21)
[2018-07-21] MEDS: POLYVINYL ALCOHOL 15 ML BOTTLE EACHEYE SCH ×4 (05:35→23:33)
[2018-07-21] MEDS: OMEPRAZOLE DR 20 MG GT SCH (05:35)
[2018-07-21] MEDS: BLOOD SUGAR DIAGNOSTIC 1 EACH STRIP IN SCH ×2 (06:31→18:43)
[2018-07-21] MEDS: INSULIN LISPRO/ASPART 100 UNIT/ML CARTRIDGE SQ PRN (06:32)
[2018-07-21 08:04] VITALS: BP 136/75
--- NOTE | 2018-07-21 08:33 | NUR ---
PT REC[facility]D [facility] ON AC MODE. NO RESP DISTRESS OR SOB NOTED. SX'D FOR THICK MOD AMT OF PALE YELLOW SECRETIONS. TRACH PATENT AND SECURED. ALARMS ARE SET AND AUDIBLE, VENT PLUGGED INTO RED OUTLET, AMBU BAG BEDSIDE. WILL CONTINUE TO MONITOR. Addendum: 07/21/18 at 1644 by PETER MARADIAGA RT Amended: Links added.
[2018-07-21] MEDS: DOCUSATE SODIUM LIQ 100 MG/10 ML UDC GT SCH ×2 (09:24→16:06)
[2018-07-21] MEDS: FERROUS SULFATE - FOR SA ONLY 330 MG/7.5 ML UDC GT SCH ×3 (09:25→16:06)
[2018-07-21] MEDS: FUNGI NAIL TP SCH ×2 (09:26→20:50)
[2018-07-21] MEDS: HYDROGEN PEROXIDE 480 ML BOTTLE TP SCH ×2 (09:26→20:50)
[2018-07-21] MEDS: ASCORBIC ACID 500 MG TABLET GT SCH ×2 (09:26→16:06)
[2018-07-21] MEDS: PROSOURCE / PROSTAT (PYXIS) 30 ML UDC GT SCH ×2 (09:26→16:06)
[2018-07-21] MEDS: Z GUARD REMEDY 4 OZ OINT TP SCH ×2 (09:27→20:50)
[2018-07-21] MEDS: BACLOFEN (10 MG) 10 MG TABLET GT SCH ×3 (09:27→16:06)
[2018-07-21] MEDS: METFORMIN 500 MG TABLET PO SCH ×2 (09:27→16:06)
[2018-07-21] MEDS: LEVETIRACETAM SOL (5 ML) 100 MG/ML UDC GT SCH ×2 (09:28→20:50)
[2018-07-21] MEDS: POTASSIUM CHLORIDE 20 MEQ/15 ML GT SCH (09:28)
[2018-07-21] MEDS: HEPARIN SODIUM, PORCINE 5000 UNITS/1 ML VIAL SQ SCH ×2 (09:54→20:50)
--- NOTE | 2018-07-21 18:36 | NUR ---
Seen and examined by LORENZO Rodgers, no new order given.
--- NOTE | 2018-07-21 19:23 | NUR ---
Trach pt received on a mechanical vent. Pt trach is secure. Vent is plugged into a red outlet, alarms are set and audible, and BMV is at bedside. Addendum: 07/21/18 at 1924 by SHABNAM GROSSMAN RT Amended: Links added.
[2018-07-21] MEDS: MULTIVIT W/MINERALS 1 TAB TABLET GT SCH (20:50)
[2018-07-21 20:54] VITALS: BP 115/77
[2018-07-21] MEDS: SENNOSIDES 8.6 MG TABLET GT SCH (21:31)
[2018-07-21] MEDS: BASAGLAR SQ SCH (21:32)
[2018-07-22] MEDS: IPRATROPIUM NEB FS 0.5 MG/2.5 ML AMPUL.NEB NEB SCH ×4 (01:58→20:11)
[2018-07-22] MEDS: ALBUTEROL FS 2.5 MG/3 ML VIAL.NEB NEB SCH ×4 (01:58→20:11)
[2018-07-22] MEDS: GLUCERNA 1.2 1,000 ML BOTTLE GT PRN (05:35)
[2018-07-22] MEDS: POLYVINYL ALCOHOL 15 ML BOTTLE EACHEYE SCH ×4 (05:35→23:30)
[2018-07-22] MEDS: OMEPRAZOLE DR 20 MG GT SCH (05:35)
[2018-07-22] MEDS: INSULIN LISPRO/ASPART 100 UNIT/ML CARTRIDGE SQ PRN ×2 (06:29→18:22)
[2018-07-22] MEDS: BLOOD SUGAR DIAGNOSTIC 1 EACH STRIP IN SCH ×2 (06:29→18:21)
[2018-07-22 07:53] VITALS: BP 106/69
[2018-07-22] MEDS: HEPARIN SODIUM, PORCINE 5000 UNITS/1 ML VIAL SQ SCH ×2 (09:11→20:56)
[2018-07-22] MEDS: DOCUSATE SODIUM LIQ 100 MG/10 ML UDC GT SCH ×2 (09:11→16:38)
[2018-07-22] MEDS: METFORMIN 500 MG TABLET PO SCH ×2 (09:12→16:38)
[2018-07-22] MEDS: Z GUARD REMEDY 4 OZ OINT TP SCH ×2 (09:12→20:56)
[2018-07-22] MEDS: BACLOFEN (10 MG) 10 MG TABLET GT SCH ×3 (09:12→16:38)
[2018-07-22] MEDS: FERROUS SULFATE - FOR SA ONLY 330 MG/7.5 ML UDC GT SCH ×3 (09:12→16:38)
[2018-07-22] MEDS: PROSOURCE / PROSTAT (PYXIS) 30 ML UDC GT SCH ×2 (09:12→16:38)
[2018-07-22] MEDS: LEVETIRACETAM SOL (5 ML) 100 MG/ML UDC GT SCH ×2 (09:12→20:55)
[2018-07-22] MEDS: FUNGI NAIL TP SCH ×2 (09:12→20:56)
[2018-07-22] MEDS: POTASSIUM CHLORIDE 20 MEQ/15 ML GT SCH (09:12)
[2018-07-22] MEDS: HYDROGEN PEROXIDE 480 ML BOTTLE TP SCH ×2 (09:12→20:56)
[2018-07-22] MEDS: ASCORBIC ACID 500 MG TABLET GT SCH ×2 (09:12→16:38)
[2018-07-22 20:00] VITALS: BP 138/82
--- NOTE | 2018-07-22 20:11 | NUR ---
RT NOTE RECEIVED TRACH PT ON MECHANICAL VENTILATION ON NOTED SETTINGS PER MD ORDERS. AMBU BAG @ BEDSIDE. Q6 BREATHING TX GIVEN WITH NO ADVERSE REACTION NOTED. SX DONE PRN. ALARMS ON AND AUDIBLE. NO RESP DISTRESS AT THIS TIME. WILL CONT TO MONITOR PT. Addendum: 07/22/18 at 2131 by SHE BYRNE RT Amended: Links added.
[2018-07-22] MEDS: MULTIVIT W/MINERALS 1 TAB TABLET GT SCH (20:55)
[2018-07-22] MEDS: SENNOSIDES 8.6 MG TABLET GT SCH (21:18)
[2018-07-22] MEDS: BASAGLAR SQ SCH (21:19)
[2018-07-23] MEDS: ALBUTEROL FS 2.5 MG/3 ML VIAL.NEB NEB SCH ×4 (01:13→20:02)
[2018-07-23] MEDS: IPRATROPIUM NEB FS 0.5 MG/2.5 ML AMPUL.NEB NEB SCH ×4 (01:13→20:02)
[2018-07-23] MEDS: OMEPRAZOLE DR 20 MG GT SCH (05:37)
[2018-07-23] MEDS: POLYVINYL ALCOHOL 15 ML BOTTLE EACHEYE SCH ×3 (05:37→17:59)
[2018-07-23] MEDS: GLUCERNA 1.2 1,000 ML BOTTLE GT PRN (05:37)
[2018-07-23] MEDS: BLOOD SUGAR DIAGNOSTIC 1 EACH STRIP IN SCH ×2 (06:32→18:31)
[2018-07-23] MEDS: INSULIN LISPRO/ASPART 100 UNIT/ML CARTRIDGE SQ PRN (06:33)
[2018-07-23 07:33] VITALS: BP 103/74
--- NOTE | 2018-07-23 08:05 | NUR ---
PT REC[facility]D [facility] ON AC MODE. NO RESP DISTRESS OR SOB NOTED. SX'D FOR THIN MINIMAL AMT OF CLEAR SECRETIONS. TRACH PATENT AND SECURED. ALARMS ARE SET AND AUDIBLE, VENT PLUGGED INTO RED OUTLET, AMBU BAG BEDSIDE. WILL CONTINUE TO MONITOR. Addendum: 07/23/18 at 1722 by MERISSA BHATT RT Amended: Links added.
[2018-07-23] MEDS: PROSOURCE / PROSTAT (PYXIS) 30 ML UDC GT SCH ×2 (09:00→17:50)
[2018-07-23] MEDS: LEVETIRACETAM SOL (5 ML) 100 MG/ML UDC GT SCH ×2 (09:00→21:59)
[2018-07-23] MEDS: POTASSIUM CHLORIDE 20 MEQ/15 ML GT SCH (09:00)
[2018-07-23] MEDS: Z GUARD REMEDY 4 OZ OINT TP SCH ×2 (09:00→21:00)
[2018-07-23] MEDS: DOCUSATE SODIUM LIQ 100 MG/10 ML UDC GT SCH ×2 (09:00→17:50)
[2018-07-23] MEDS: BACLOFEN (10 MG) 10 MG TABLET GT SCH ×3 (09:00→17:50)
[2018-07-23] MEDS: ASCORBIC ACID 500 MG TABLET GT SCH ×2 (09:00→17:50)
[2018-07-23] MEDS: FUNGI NAIL TP SCH ×2 (09:00→21:00)
[2018-07-23] MEDS: HYDROGEN PEROXIDE 480 ML BOTTLE TP SCH ×2 (09:00→21:00)
[2018-07-23] MEDS: METFORMIN 500 MG TABLET PO SCH ×2 (09:00→17:50)
[2018-07-23] MEDS: HEPARIN SODIUM, PORCINE 5000 UNITS/1 ML VIAL SQ SCH ×2 (09:00→21:59)
[2018-07-23] MEDS: FERROUS SULFATE - FOR SA ONLY 330 MG/7.5 ML UDC GT SCH ×3 (09:00→17:50)
--- NOTE | 2018-07-23 20:02 | NUR ---
RT NOTE: RECEIVED TRACH PT ON [facility] VENT ON NOTED SETTINGS PER MD ORDERS. TRACH IS PATENT AND SECURED. PHOTONICS ENGINEER DONE. AMBU BAG @ BEDSIDE. Q6 BREATHING TX GIVEN WITH NO ADVERSE REACTION NOTED. SX DONE PRN. ALARMS ON AND AUDIBLE. NO RESP DISTRESS AT THIS TIME. WILL CONT TO MONITOR PT. Addendum: 07/24/18 at 0552 by SHE BYRNE RT Amended: Links added.
[2018-07-23 20:03] VITALS: BP 100/61
[2018-07-23] MEDS: MULTIVIT W/MINERALS 1 TAB TABLET GT SCH (21:57)
[2018-07-23] MEDS: SENNOSIDES 8.6 MG TABLET GT SCH (22:00)
[2018-07-23] MEDS: BASAGLAR SQ SCH (22:49)
[2018-07-24] MEDS: POLYVINYL ALCOHOL 15 ML BOTTLE EACHEYE SCH ×5 (00:31→23:31)
[2018-07-24] MEDS: IPRATROPIUM NEB FS 0.5 MG/2.5 ML AMPUL.NEB NEB SCH ×4 (01:26→19:32)
[2018-07-24] MEDS: ALBUTEROL FS 2.5 MG/3 ML VIAL.NEB NEB SCH ×4 (01:26→19:32)
[2018-07-24] MEDS: OMEPRAZOLE DR 20 MG GT SCH (05:58)
[2018-07-24] MEDS: BLOOD SUGAR DIAGNOSTIC 1 EACH STRIP IN SCH ×2 (06:30→18:30)
[2018-07-24] MEDS: INSULIN LISPRO/ASPART 100 UNIT/ML CARTRIDGE SQ PRN ×2 (06:31→18:30)
[2018-07-24 07:43] VITALS: BP 98/63
[2018-07-24] MEDS: Z GUARD REMEDY 4 OZ OINT TP SCH ×2 (09:00→21:30)
[2018-07-24] MEDS: HYDROGEN PEROXIDE 480 ML BOTTLE TP SCH ×2 (09:00→21:30)
[2018-07-24] MEDS: FUNGI NAIL TP SCH ×2 (09:00→21:30)
[2018-07-24] MEDS: DOCUSATE SODIUM LIQ 100 MG/10 ML UDC GT SCH ×2 (09:38→16:53)
[2018-07-24] MEDS: FERROUS SULFATE - FOR SA ONLY 330 MG/7.5 ML UDC GT SCH ×3 (09:38→16:53)
[2018-07-24] MEDS: LEVETIRACETAM SOL (5 ML) 100 MG/ML UDC GT SCH ×2 (09:39→21:28)
[2018-07-24] MEDS: HEPARIN SODIUM, PORCINE 5000 UNITS/1 ML VIAL SQ SCH ×2 (09:39→21:29)
[2018-07-24] MEDS: METFORMIN 500 MG TABLET PO SCH ×2 (09:39→16:53)
[2018-07-24] MEDS: PROSOURCE / PROSTAT (PYXIS) 30 ML UDC GT SCH ×2 (09:39→16:53)
[2018-07-24] MEDS: POTASSIUM CHLORIDE 20 MEQ/15 ML GT SCH (09:39)
[2018-07-24] MEDS: ASCORBIC ACID 500 MG TABLET GT SCH ×2 (09:39→16:53)
[2018-07-24] MEDS: BACLOFEN (10 MG) 10 MG TABLET GT SCH ×3 (09:39→16:53)
--- NOTE | 2018-07-24 15:39 | NUR ---
RT PATIENT RECEIVED TRACHED ON MECHANICAL VENTILATION ON SETTINGS ORDERED. AMBU BAG/BACK UP TRACH AT BEDSIDE. TX GIVEN, NO ADVERSE REACTIONS NOTED. SX DONE, SMALL THIN WHITE SECRETIONS NOTED. ALARMS ON AND AUDIBLE. VENT PLUGGED IN RED OUTLET, PATIENT STABLE. WILL CONTINUE MONITOR. Addendum: 07/24/18 at 1540 by ARIS CRUZ RT Amended: Links added.
[2018-07-24] MEDS: GLUCERNA 1.2 1,000 ML BOTTLE GT PRN (17:08)
--- NOTE | 2018-07-24 19:06 | NUR ---
Glucerna 1.2 not available according to kitchen and medical insurance claims specialist. Notified Dr Bullard. Received order to change feeding from Glucerna 1.2 to Glucerna 1.5 and DC Prostat per medical insurance claims specialist's recommendation.
[2018-07-24 19:56] VITALS: BP 119/62
[2018-07-24] MEDS: SENNOSIDES 8.6 MG TABLET GT SCH (21:30)
[2018-07-24] MEDS: BASAGLAR SQ SCH (21:30)
[2018-07-24] MEDS: MULTIVIT W/MINERALS 1 TAB TABLET GT SCH (21:32)
--- NOTE | 2018-07-24 22:08 | NUR ---
RT PATIENT RECEIVED TRACHED ON MECHANICAL VENTILATION ON SETTINGS ORDERED. AMBU BAG/BACK UP TRACH AT BEDSIDE. TX GIVEN, NO ADVERSE REACTIONS NOTED. SX DONE, MODERATE THICK WHITE SECRETIONS NOTED. ALARMS ON AND AUDIBLE. VENT PLUGGED IN RED OUTLET, PATIENT STABLE. WILL CONTINUE MONITOR. Addendum: 07/24/18 at 2209 by RODERICK JONES RT Amended: Links added.
[2018-07-25] MEDS: IPRATROPIUM NEB FS 0.5 MG/2.5 ML AMPUL.NEB NEB SCH ×4 (01:16→19:41)
[2018-07-25] MEDS: ALBUTEROL FS 2.5 MG/3 ML VIAL.NEB NEB SCH ×4 (01:16→19:41)
[2018-07-25] MEDS: POLYVINYL ALCOHOL 15 ML BOTTLE EACHEYE SCH ×4 (05:45→23:36)
[2018-07-25] MEDS: OMEPRAZOLE DR 20 MG GT SCH (05:46)
[2018-07-25] MEDS: BLOOD SUGAR DIAGNOSTIC 1 EACH STRIP IN SCH ×2 (06:03→18:38)
[2018-07-25 07:39] VITALS: BP 95/68
--- NOTE | 2018-07-25 07:47 | NUR ---
RT NOTE PT RECEIVED ON [facility] VENT ON THE FOLLOWING NOTED SETTINGS. NO RESP DISTRESS OR SOB NOTED AT THIS TIME. PT SUCTIONED: SMALL THIN WHITE SECRETIONS. BREATHING TX GIVEN, NO ADVERSE REACTIONS NOTED. VENT IS PLUGGED INTO RED OUTLET. VENT ALARMS ARE ON AND AUDIBLE. SPARE TRACH AND AMBU BAG ARE AT BEDSIDE. WILL CONT TO MONITOR. Addendum: 07/25/18 at 0747 by BARI GARZA RT Amended: Links added.
[2018-07-25] MEDS: Z GUARD REMEDY 4 OZ OINT TP SCH ×2 (09:00→21:07)
[2018-07-25] MEDS: HYDROGEN PEROXIDE 480 ML BOTTLE TP SCH ×2 (09:00→21:07)
[2018-07-25] MEDS: FUNGI NAIL TP SCH ×2 (09:00→21:07)
[2018-07-25] MEDS: DOCUSATE SODIUM LIQ 100 MG/10 ML UDC GT SCH ×2 (09:03→17:31)
[2018-07-25] MEDS: FERROUS SULFATE - FOR SA ONLY 330 MG/7.5 ML UDC GT SCH ×3 (09:03→17:31)
[2018-07-25] MEDS: LEVETIRACETAM SOL (5 ML) 100 MG/ML UDC GT SCH ×2 (09:04→21:04)
[2018-07-25] MEDS: POTASSIUM CHLORIDE 20 MEQ/15 ML GT SCH (09:05)
[2018-07-25] MEDS: BACLOFEN (10 MG) 10 MG TABLET GT SCH ×3 (09:05→17:31)
[2018-07-25] MEDS: ASCORBIC ACID 500 MG TABLET GT SCH ×2 (09:06→17:31)
[2018-07-25] MEDS: METFORMIN 500 MG TABLET PO SCH ×2 (09:06→17:31)
[2018-07-25] MEDS: HEPARIN SODIUM, PORCINE 5000 UNITS/1 ML VIAL SQ SCH ×2 (09:08→21:06)
--- NOTE | 2018-07-25 13:57 | NUR ---
RT SOURAV NUÑEZ WAS CALLED OVER HEAD FOR PT'S ROOM. RT ARRIVED PROMPTLY TO FIND PT WITH STRONG BOUNDING PULSE HR 90 AND SPO2 OF 100%. PT WAS CURRENTLY BEING CHANGED WHEN EPISODE OF SOB WAS NOTED BY WEBBING INSPECTOR. RT BAGGED PT UNTIL SOB RESIDED AND PLACED BACK ON MECHANICAL VENTILATOR. PT IS BACK TO NORMAL BASELINE CONDITION.
--- NOTE | 2018-07-25 14:31 | NUR ---
Pt was being cleaned and repositioned when she turned cyanotic. PA Valdovinos immediately ambubagged the pt. RT was called and they came to ambubag the pt as well. Pt's color improved, O2 sat 100%. BP 121/81 HR 103 T [address] Alvarez. No new order.
--- NOTE | 2018-07-25 18:19 | NUR ---
Seen by Dr Bullard. Notified him that pt turned cyanotic this afternoon while being cleaned and repositioned, pt was ambubagged and O2 sat was 100%, pt's color WNL. No new order.
[2018-07-25] MEDS: INSULIN LISPRO/ASPART 100 UNIT/ML CARTRIDGE SQ PRN (18:39)
[2018-07-25] MEDS: GLUCERNA 1.5 1,000 ML BOTTLE GT PRN (18:42)
--- NOTE | 2018-07-25 19:42 | NUR ---
RT PATIENT RECEIVED TRACHED ON MECHANICAL VENTILATION ON SETTINGS ORDERED. AMBU BAG/BACK UP TRACH AT BEDSIDE. TX GIVEN, NO ADVERSE REACTIONS NOTED. SX DONE, MODERATE THICK WHITE SECRETIONS NOTED. ALARMS ON AND AUDIBLE. VENT PLUGGED IN RED OUTLET, PATIENT STABLE. WILL CONTINUE MONITOR. Addendum: 07/25/18 at 1942 by RODERICK JONES RT Amended: Links added.
[2018-07-25 20:02] VITALS: BP 131/80
[2018-07-25] MEDS: MULTIVIT W/MINERALS 1 TAB TABLET GT SCH (21:06)
[2018-07-25] MEDS: SENNOSIDES 8.6 MG TABLET GT SCH (21:07)
[2018-07-25] MEDS: BASAGLAR SQ SCH (21:07)
[2018-07-26] MEDS: IPRATROPIUM NEB FS 0.5 MG/2.5 ML AMPUL.NEB NEB SCH ×4 (01:22→20:11)
[2018-07-26] MEDS: ALBUTEROL FS 2.5 MG/3 ML VIAL.NEB NEB SCH ×4 (01:22→20:11)
[2018-07-26] MEDS: POLYVINYL ALCOHOL 15 ML BOTTLE EACHEYE SCH ×4 (05:47→23:35)
[2018-07-26] MEDS: OMEPRAZOLE DR 20 MG GT SCH (05:47)
[2018-07-26] MEDS: BLOOD SUGAR DIAGNOSTIC 1 EACH STRIP IN SCH ×2 (06:04→18:38)
[2018-07-26] MEDS: INSULIN LISPRO/ASPART 100 UNIT/ML CARTRIDGE SQ PRN ×2 (06:05→18:39)
[2018-07-26 07:38] VITALS: BP 131/78
--- NOTE | 2018-07-26 08:00 | NUR ---
RT PT RECEIVED WITH A SHILEY 6 TRACH ON THE VENT WITH NOTED SETTINGS. PT IS AWAKE BUT DOES NOT FOLLOW COMMANDS. VENT ALARMS ARE SET AND AUDIBLE WITH BVM BY BEDSIDE. CLINICAL ATHLETIC INSTRUCTOR CUFF PRESSURE NOTED. VENT IS PLUGGED INTO RED OUTLET. HHN TX GIVEN WITH NO ADVERSE REACTIONS. NO RESPIRATORY DISTRESS NOTED AT THIS TIME, WILL CONTINUE TO MONITOR. Addendum: 07/26/18 at 0922 by SAE ERNST RT Amended: Links added.
[2018-07-26] MEDS: HYDROGEN PEROXIDE 480 ML BOTTLE TP SCH ×2 (08:34→21:29)
[2018-07-26] MEDS: POTASSIUM CHLORIDE 20 MEQ/15 ML GT SCH (08:34)
[2018-07-26] MEDS: Z GUARD REMEDY 4 OZ OINT TP SCH ×2 (08:34→21:29)
[2018-07-26] MEDS: LEVETIRACETAM SOL (5 ML) 100 MG/ML UDC GT SCH ×2 (08:34→21:27)
[2018-07-26] MEDS: DOCUSATE SODIUM LIQ 100 MG/10 ML UDC GT SCH ×2 (08:34→17:00)
[2018-07-26] MEDS: METFORMIN 500 MG TABLET PO SCH ×2 (08:34→17:00)
[2018-07-26] MEDS: BACLOFEN (10 MG) 10 MG TABLET GT SCH ×3 (08:34→17:00)
[2018-07-26] MEDS: ASCORBIC ACID 500 MG TABLET GT SCH ×2 (08:34→17:00)
[2018-07-26] MEDS: FUNGI NAIL TP SCH ×2 (08:34→21:29)
[2018-07-26] MEDS: FERROUS SULFATE - FOR SA ONLY 330 MG/7.5 ML UDC GT SCH ×3 (08:34→17:00)
[2018-07-26] MEDS: HEPARIN SODIUM, PORCINE 5000 UNITS/1 ML VIAL SQ SCH ×2 (09:00→21:28)
[2018-07-26] MEDS: GLUCERNA 1.5 1,000 ML BOTTLE GT PRN (18:38)
[2018-07-26 20:55] VITALS: BP 112/77
[2018-07-26] MEDS: MULTIVIT W/MINERALS 1 TAB TABLET GT SCH (21:27)
[2018-07-26] MEDS: BASAGLAR SQ SCH (21:29)
[2018-07-26] MEDS: SENNOSIDES 8.6 MG TABLET GT SCH (21:29)
[2018-07-27] MEDS: ALBUTEROL FS 2.5 MG/3 ML VIAL.NEB NEB SCH ×4 (02:06→19:59)
[2018-07-27] MEDS: IPRATROPIUM NEB FS 0.5 MG/2.5 ML AMPUL.NEB NEB SCH ×4 (02:06→19:59)
--- NOTE | 2018-07-27 05:13 | NUR ---
RT RECD PT TRACHED INTACT AND SECURED ON ECH VENT TUTU ORDERED SETTINGS ALARMS ON AND AUDIBLE BAG AND MASK AT HOB TXS GIVEN NO ADVERSE REACTION NOTED ATT WILL CONT TO MONITOR NO RESP DISTRESS THROUGHOUT SHIFT
[2018-07-27] MEDS: OMEPRAZOLE DR 20 MG GT SCH (05:54)
[2018-07-27] MEDS: POLYVINYL ALCOHOL 15 ML BOTTLE EACHEYE SCH ×4 (05:54→23:53)
[2018-07-27] MEDS: BLOOD SUGAR DIAGNOSTIC 1 EACH STRIP IN SCH ×2 (06:21→18:14)
--- NOTE | 2018-07-27 07:22 | NUR ---
Received a pt on a mechanical vent. Pt trach is secure. Vent is plugged into a red outlet, alarms are set and audible, and BMV is at bedside. Addendum: 07/27/18 at 0724 by SHABNAM GROSSMAN RT Amended: Links added.
[2018-07-27 07:40] VITALS: BP 113/63
[2018-07-27] MEDS: POTASSIUM CHLORIDE 20 MEQ/15 ML GT SCH (08:55)
[2018-07-27] MEDS: METFORMIN 500 MG TABLET PO SCH ×2 (08:55→17:40)
[2018-07-27] MEDS: BACLOFEN (10 MG) 10 MG TABLET GT SCH ×3 (08:55→17:40)
[2018-07-27] MEDS: DOCUSATE SODIUM LIQ 100 MG/10 ML UDC GT SCH ×2 (08:55→17:40)
[2018-07-27] MEDS: ASCORBIC ACID 500 MG TABLET GT SCH ×2 (08:55→17:40)
[2018-07-27] MEDS: LEVETIRACETAM SOL (5 ML) 100 MG/ML UDC GT SCH ×2 (08:55→21:30)
[2018-07-27] MEDS: FERROUS SULFATE - FOR SA ONLY 330 MG/7.5 ML UDC GT SCH ×3 (08:55→17:40)
[2018-07-27] MEDS: Z GUARD REMEDY 4 OZ OINT TP SCH ×2 (08:56→21:30)
[2018-07-27] MEDS: HYDROGEN PEROXIDE 480 ML BOTTLE TP SCH ×2 (08:56→21:30)
[2018-07-27] MEDS: FUNGI NAIL TP SCH ×2 (08:56→21:30)
[2018-07-27] MEDS: HEPARIN SODIUM, PORCINE 5000 UNITS/1 ML VIAL SQ SCH ×2 (08:56→21:30)
[2018-07-27] MEDS: GLUCERNA 1.5 1,000 ML BOTTLE GT PRN (18:14)
[2018-07-27 19:45] VITALS: BP 106/72
[2018-07-27] MEDS: MULTIVIT W/MINERALS 1 TAB TABLET GT SCH (21:30)
[2018-07-27] MEDS: SENNOSIDES 8.6 MG TABLET GT SCH (22:14)
[2018-07-27] MEDS: BASAGLAR SQ SCH (22:15)
[2018-07-28] MEDS: ALBUTEROL FS 2.5 MG/3 ML VIAL.NEB NEB SCH ×4 (01:50→18:59)
[2018-07-28] MEDS: IPRATROPIUM NEB FS 0.5 MG/2.5 ML AMPUL.NEB NEB SCH ×4 (01:50→18:59)
[2018-07-28] MEDS: POLYVINYL ALCOHOL 15 ML BOTTLE EACHEYE SCH ×4 (05:58→23:27)
[2018-07-28] MEDS: OMEPRAZOLE DR 20 MG GT SCH (05:58)
--- NOTE | 2018-07-28 06:11 | NUR ---
RT PT RECEIVED TRACHED ON [facility] VENT WITH NOTED SETTING. VENT ALARMS SET AND AUDIBLE. VENT TO RED OUTLET. AMBU BAG AT [facility]. TRACH PATENT AND SECURE VIA TRACH TIES. VISUAL ARTS TEACHER NOTED. PT TOLERATING VENT SETTING WELL, NO SOB OR DISTRESS NOTED. Addendum: 07/28/18 at 0611 by JACK CELIS RT Amended: Links added.
[2018-07-28] MEDS: BLOOD SUGAR DIAGNOSTIC 1 EACH STRIP IN SCH ×2 (06:20→18:34)
[2018-07-28] MEDS: INSULIN LISPRO/ASPART 100 UNIT/ML CARTRIDGE SQ PRN ×2 (06:21→18:35)
[2018-07-28 08:02] VITALS: BP 108/69
[2018-07-28] MEDS: ASCORBIC ACID 500 MG TABLET GT SCH ×2 (09:43→17:06)
[2018-07-28] MEDS: BACLOFEN (10 MG) 10 MG TABLET GT SCH ×3 (09:43→17:06)
[2018-07-28] MEDS: LEVETIRACETAM SOL (5 ML) 100 MG/ML UDC GT SCH ×2 (09:43→20:49)
[2018-07-28] MEDS: POTASSIUM CHLORIDE 20 MEQ/15 ML GT SCH (09:43)
[2018-07-28] MEDS: FERROUS SULFATE - FOR SA ONLY 330 MG/7.5 ML UDC GT SCH ×3 (09:43→17:06)
[2018-07-28] MEDS: METFORMIN 500 MG TABLET PO SCH ×2 (09:43→17:06)
[2018-07-28] MEDS: DOCUSATE SODIUM LIQ 100 MG/10 ML UDC GT SCH ×2 (09:43→17:06)
[2018-07-28] MEDS: HYDROGEN PEROXIDE 480 ML BOTTLE TP SCH ×2 (09:44→20:49)
[2018-07-28] MEDS: FUNGI NAIL TP SCH ×2 (09:44→20:49)
[2018-07-28] MEDS: Z GUARD REMEDY 4 OZ OINT TP SCH ×2 (09:47→20:49)
[2018-07-28] MEDS: HEPARIN SODIUM, PORCINE 5000 UNITS/1 ML VIAL SQ SCH ×2 (09:47→20:49)
--- NOTE | 2018-07-28 11:08 | NUR ---
qualified craft worker electrician informed the resident's sister Tosin Horvath about upcoming IDT meeting on Saturday August 04, 2018 from 12:30-1:30PM. She noted that she will not be available and cannot attend the IDT meeting.
[2018-07-28 19:43] VITALS: BP 100/65
[2018-07-28 19:59] VITALS: BP 103/61
--- NOTE | 2018-07-28 20:20 | NUR ---
Patient received on mechanical ventilation with settings of AC 12, 500 Vt, 30%, +0. Suctioned for minimal, thin, yellow secretions. Given in-line treatments with no adverse reactions. Ambu bag at bedside. Vent alarm audible and visible. Vent plugged into red outlet. Addendum: 07/28/18 at 2021 by WHITNEY KLEIN RT Amended: Links added.
[2018-07-28] MEDS: MULTIVIT W/MINERALS 1 TAB TABLET GT SCH (20:49)
[2018-07-28] MEDS: SENNOSIDES 8.6 MG TABLET GT SCH (21:24)
[2018-07-28] MEDS: BASAGLAR SQ SCH (21:24)
[2018-07-29] MEDS: ALBUTEROL FS 2.5 MG/3 ML VIAL.NEB NEB SCH ×4 (01:27→19:44)
[2018-07-29] MEDS: IPRATROPIUM NEB FS 0.5 MG/2.5 ML AMPUL.NEB NEB SCH ×4 (01:27→19:44)
[2018-07-29] MEDS: OMEPRAZOLE DR 20 MG GT SCH (05:03)
[2018-07-29] MEDS: POLYVINYL ALCOHOL 15 ML BOTTLE EACHEYE SCH ×4 (05:03→23:44)
[2018-07-29] MEDS: BLOOD SUGAR DIAGNOSTIC 1 EACH STRIP IN SCH ×2 (07:10→18:47)
[2018-07-29] MEDS: INSULIN LISPRO/ASPART 100 UNIT/ML CARTRIDGE SQ PRN ×2 (07:11→18:47)
[2018-07-29 07:37] VITALS: BP 105/61
[2018-07-29] MEDS: BACLOFEN (10 MG) 10 MG TABLET GT SCH ×3 (08:19→17:41)
[2018-07-29] MEDS: DOCUSATE SODIUM LIQ 100 MG/10 ML UDC GT SCH ×2 (08:19→17:40)
[2018-07-29] MEDS: LEVETIRACETAM SOL (5 ML) 100 MG/ML UDC GT SCH ×2 (08:19→20:27)
[2018-07-29] MEDS: FERROUS SULFATE - FOR SA ONLY 330 MG/7.5 ML UDC GT SCH ×3 (08:19→17:40)
[2018-07-29] MEDS: METFORMIN 500 MG TABLET PO SCH ×2 (08:20→17:41)
[2018-07-29] MEDS: ASCORBIC ACID 500 MG TABLET GT SCH ×2 (08:20→17:41)
[2018-07-29] MEDS: POTASSIUM CHLORIDE 20 MEQ/15 ML GT SCH (08:20)
[2018-07-29] MEDS: HEPARIN SODIUM, PORCINE 5000 UNITS/1 ML VIAL SQ SCH ×2 (08:23→20:28)
[2018-07-29] MEDS: FUNGI NAIL TP SCH ×2 (09:00→20:28)
[2018-07-29] MEDS: HYDROGEN PEROXIDE 480 ML BOTTLE TP SCH ×2 (09:00→20:28)
[2018-07-29] MEDS: Z GUARD REMEDY 4 OZ OINT TP SCH ×2 (09:00→20:29)
[2018-07-29] MEDS: GLUCERNA 1.5 1,000 ML BOTTLE GT PRN (12:43)
[2018-07-29 19:33] VITALS: BP 111/68
--- NOTE | 2018-07-29 19:45 | NUR ---
RT Pt received trach'd and on [facility] vent w charted settings. Vent is plugged into red outlet. Alarms are on and audible w sarah @ [employer]. Trach is secure and patent. Continuous Absorption Process Operator done. Hhn tx given and pt sx'd w no adverse reactions. No respiratory distress noted at this time. Will continue to monitor. Addendum: 07/29/18 at 2105 by ANJUM FONG RT Amended: Links added.
[2018-07-29] MEDS: MULTIVIT W/MINERALS 1 TAB TABLET GT SCH (20:27)
[2018-07-29] MEDS: ACETAMINOPHEN 650 MG/20 ML UDC- SA PATIENTS-PAIN ONLY GT PRN (20:29)
[2018-07-29] MEDS: SENNOSIDES 8.6 MG TABLET GT SCH (21:17)
[2018-07-29] MEDS: BASAGLAR SQ SCH (21:17)
[2018-07-30] MEDS: IPRATROPIUM NEB FS 0.5 MG/2.5 ML AMPUL.NEB NEB SCH ×4 (01:45→20:03)
[2018-07-30] MEDS: ALBUTEROL FS 2.5 MG/3 ML VIAL.NEB NEB SCH ×4 (01:45→20:03)
[2018-07-30] MEDS: OMEPRAZOLE DR 20 MG GT SCH (05:24)
[2018-07-30] MEDS: POLYVINYL ALCOHOL 15 ML BOTTLE EACHEYE SCH ×3 (05:24→18:15)
[2018-07-30] MEDS: BLOOD SUGAR DIAGNOSTIC 1 EACH STRIP IN SCH ×2 (06:25→18:15)
[2018-07-30] MEDS: INSULIN LISPRO/ASPART 100 UNIT/ML CARTRIDGE SQ PRN (06:26)
[2018-07-30 07:53] VITALS: BP 104/70
[2018-07-30] MEDS: Z GUARD REMEDY 4 OZ OINT TP SCH ×2 (09:00→21:38)
[2018-07-30] MEDS: HYDROGEN PEROXIDE 480 ML BOTTLE TP SCH ×2 (09:00→21:38)
[2018-07-30] MEDS: FUNGI NAIL TP SCH ×2 (09:00→21:38)
[2018-07-30] MEDS: FERROUS SULFATE - FOR SA ONLY 330 MG/7.5 ML UDC GT SCH ×3 (09:56→16:41)
[2018-07-30] MEDS: DOCUSATE SODIUM LIQ 100 MG/10 ML UDC GT SCH ×2 (09:56→16:41)
[2018-07-30] MEDS: LEVETIRACETAM SOL (5 ML) 100 MG/ML UDC GT SCH ×2 (09:56→21:36)
[2018-07-30] MEDS: POTASSIUM CHLORIDE 20 MEQ/15 ML GT SCH (09:57)
[2018-07-30] MEDS: ASCORBIC ACID 500 MG TABLET GT SCH ×2 (09:57→16:41)
[2018-07-30] MEDS: HEPARIN SODIUM, PORCINE 5000 UNITS/1 ML VIAL SQ SCH ×2 (09:57→21:38)
[2018-07-30] MEDS: METFORMIN 500 MG TABLET PO SCH ×2 (09:57→16:41)
[2018-07-30] MEDS: BACLOFEN (10 MG) 10 MG TABLET GT SCH ×3 (09:57→16:41)
[2018-07-30 19:41] VITALS: BP 107/67
--- NOTE | 2018-07-30 20:37 | NUR ---
RT PT REC'D TRACHED ON VENT SETTINGS CHARTED, PT RESPONSIVE TO PAIN, NO SOB, NO RESPIRATORY DISTRESS NOTED AT THIS TIME, TRACH TUBE PATENT, SECURE, IN PLACE, AMBU BAG @ HOB, VENT ALARMS ON AND AUDIBLE, VENT PLUGGED IN RED OUTLET, PT SUCTIONED W MODERATE AMOUNT OF THICK WHITE SECRETIONS, TX GIVEN WITH NO ADVERSE REACTION, WILL CONTINUE TO MONITOR. Addendum: 07/30/18 at 2036 by ARIS CRUZ RT Amended: Links added.
[2018-07-30] MEDS: MULTIVIT W/MINERALS 1 TAB TABLET GT SCH (21:36)
[2018-07-30] MEDS: SENNOSIDES 8.6 MG TABLET GT SCH (21:38)
[2018-07-30] MEDS: BASAGLAR SQ SCH (22:53)
[2018-07-31] MEDS: POLYVINYL ALCOHOL 15 ML BOTTLE EACHEYE SCH ×4 (00:50→17:57)
[2018-07-31] MEDS: IPRATROPIUM NEB FS 0.5 MG/2.5 ML AMPUL.NEB NEB SCH ×4 (01:04→19:18)
[2018-07-31] MEDS: ALBUTEROL FS 2.5 MG/3 ML VIAL.NEB NEB SCH ×4 (01:05→19:19)
[2018-07-31] MEDS: OMEPRAZOLE DR 20 MG GT SCH (05:41)
[2018-07-31] MEDS: BLOOD SUGAR DIAGNOSTIC 1 EACH STRIP IN SCH ×2 (06:20→18:19)
[2018-07-31] MEDS: FUNGI NAIL TP SCH ×2 (09:00→21:35)
[2018-07-31] MEDS: FERROUS SULFATE - FOR SA ONLY 330 MG/7.5 ML UDC GT SCH ×3 (09:00→17:56)
[2018-07-31] MEDS: BACLOFEN (10 MG) 10 MG TABLET GT SCH ×3 (09:00→17:56)
[2018-07-31] MEDS: PROSTAT (PYXIS) 30 ML UDC GT SCH ×2 (09:00→17:56)
[2018-07-31] MEDS: Z GUARD REMEDY 4 OZ OINT TP SCH ×2 (09:00→21:35)
[2018-07-31] MEDS: POTASSIUM CHLORIDE 20 MEQ/15 ML GT SCH (09:00)
[2018-07-31] MEDS: HYDROGEN PEROXIDE 480 ML BOTTLE TP SCH ×2 (09:00→21:35)
[2018-07-31] MEDS: HEPARIN SODIUM, PORCINE 5000 UNITS/1 ML VIAL SQ SCH ×2 (09:00→21:33)
[2018-07-31] MEDS: ASCORBIC ACID 500 MG TABLET GT SCH ×2 (09:00→17:57)
[2018-07-31] MEDS: METFORMIN 500 MG TABLET PO SCH ×2 (09:00→17:57)
[2018-07-31] MEDS: DOCUSATE SODIUM LIQ 100 MG/10 ML UDC GT SCH ×2 (09:00→17:56)
[2018-07-31] MEDS: LEVETIRACETAM SOL (5 ML) 100 MG/ML UDC GT SCH ×2 (09:00→21:32)
--- NOTE | 2018-07-31 12:25 | NUR ---
RT RECD PT TRACHED INTACT & SECURED ON MECH VENT TUTU ORDERED SETTIN ALARMS ON AND AUDIBLE BAG AND MASK AT HOB VENT PLUGGED IN THE RED OUTLET. SX THICK YELLOW MOD SECRETIONS TXS GIVEN NO ADVERSE REACTION NOTED ATT NO RESP DISTRESS NOTED ATT WILL CONT TO MONITOR
[2018-07-31 13:43] VITALS: BP 107/74
[2018-07-31] MEDS: INSULIN LISPRO/ASPART 100 UNIT/ML CARTRIDGE SQ PRN (18:19)
[2018-07-31 19:52] VITALS: BP 112/75
[2018-07-31] MEDS: MULTIVIT W/MINERALS 1 TAB TABLET GT SCH (21:32)
[2018-07-31] MEDS: BASAGLAR SQ SCH (21:35)
[2018-07-31] MEDS: SENNOSIDES 8.6 MG TABLET GT SCH (21:35)
--- NOTE | 2018-08-01 00:16 | NUR ---
PT REC'D TRACHED ON VENT SETTINGS CHARTED, PT RESPONSIVE TO PAIN, NO SOB, NO RESPIRATORY DISTRESS NOTED AT THIS TIME, TRACH TUBE PATENT, SECURE, IN PLACE, AMBU BAG @ HOB, VENT ALARMS ON AND AUDIBLE, PT SUCTIONED W SMALL AMOUNT OF THICK PALE YELLOW SECRETIONS, TX GIVEN WITH NO ADVERSE REACTION, WILL CONTINUE TO MONITOR. Addendum: 08/01/18 at 0017 by RODERICK JONES RT Amended: Links added.
[2018-08-01] MEDS: POLYVINYL ALCOHOL 15 ML BOTTLE EACHEYE SCH ×4 (00:22→18:30)
[2018-08-01] MEDS: ALBUTEROL FS 2.5 MG/3 ML VIAL.NEB NEB SCH ×4 (01:42→19:15)
[2018-08-01] MEDS: IPRATROPIUM NEB FS 0.5 MG/2.5 ML AMPUL.NEB NEB SCH ×4 (01:42→19:15)
[2018-08-01] MEDS: OMEPRAZOLE DR 20 MG GT SCH (05:46)
[2018-08-01] MEDS: BLOOD SUGAR DIAGNOSTIC 1 EACH STRIP IN SCH ×2 (06:09→18:31)
[2018-08-01 07:42] VITALS: BP 104/71
[2018-08-01] MEDS: FUNGI NAIL TP SCH ×2 (09:00→21:31)
[2018-08-01] MEDS: Z GUARD REMEDY 4 OZ OINT TP SCH ×2 (09:00→21:31)
[2018-08-01] MEDS: HYDROGEN PEROXIDE 480 ML BOTTLE TP SCH ×2 (09:00→21:31)
[2018-08-01] MEDS: METFORMIN 500 MG TABLET PO SCH ×2 (09:22→16:51)
[2018-08-01] MEDS: PROSTAT (PYXIS) 30 ML UDC GT SCH ×2 (09:22→16:51)
[2018-08-01] MEDS: POTASSIUM CHLORIDE 20 MEQ/15 ML GT SCH (09:22)
[2018-08-01] MEDS: ASCORBIC ACID 500 MG TABLET GT SCH ×2 (09:22→16:51)
[2018-08-01] MEDS: DOCUSATE SODIUM LIQ 100 MG/10 ML UDC GT SCH ×2 (09:23→16:51)
[2018-08-01] MEDS: FERROUS SULFATE - FOR SA ONLY 330 MG/7.5 ML UDC GT SCH ×3 (09:23→16:51)
[2018-08-01] MEDS: BACLOFEN (10 MG) 10 MG TABLET GT SCH ×3 (09:23→16:51)
[2018-08-01] MEDS: HEPARIN SODIUM, PORCINE 5000 UNITS/1 ML VIAL SQ SCH ×2 (09:23→21:31)
[2018-08-01] MEDS: LEVETIRACETAM SOL (5 ML) 100 MG/ML UDC GT SCH ×2 (09:23→21:30)
[2018-08-01] MEDS: GLUCERNA 1.2 1,000 ML BOTTLE GT PRN (15:15)
[2018-08-01] MEDS: INSULIN LISPRO/ASPART 100 UNIT/ML CARTRIDGE SQ PRN (18:31)
--- NOTE | 2018-08-01 19:16 | NUR ---
PT REC'D TRACHED ON VENT SETTINGS CHARTED, PT RESPONSIVE TO PAIN, NO SOB, NO RESPIRATORY DISTRESS NOTED AT THIS TIME, TRACH TUBE PATENT, SECURE, IN PLACE, AMBU BAG @ HOB, VENT ALARMS ON AND AUDIBLE, PT SUCTIONED W SMALL AMOUNT OF THICK PALE YELLOW SECRETIONS, TX GIVEN WITH NO ADVERSE REACTION, WILL CONTINUE TO MONITOR. Addendum: 08/01/18 at 7 by RODERICK JONES RT Amended: Links added.
[2018-08-01 20:51] VITALS: BP 123/82
[2018-08-01] MEDS: MULTIVIT W/MINERALS 1 TAB TABLET GT SCH (21:30)
[2018-08-01] MEDS: BASAGLAR SQ SCH (21:31)
[2018-08-01] MEDS: SENNOSIDES 8.6 MG TABLET GT SCH (21:31)
[2018-08-02] MEDS: POLYVINYL ALCOHOL 15 ML BOTTLE EACHEYE SCH ×5 (00:24→23:59)
[2018-08-02] MEDS: IPRATROPIUM NEB FS 0.5 MG/2.5 ML AMPUL.NEB NEB SCH ×4 (01:29→19:52)
[2018-08-02] MEDS: ALBUTEROL FS 2.5 MG/3 ML VIAL.NEB NEB SCH ×4 (01:29→19:52)
[2018-08-02] MEDS: OMEPRAZOLE DR 20 MG GT SCH (05:32)
[2018-08-02] MEDS: BLOOD SUGAR DIAGNOSTIC 1 EACH STRIP IN SCH ×2 (06:10→18:17)
[2018-08-02 07:50] VITALS: BP 155/77
--- NOTE | 2018-08-02 08:02 | NUR ---
PT RECD TRACHED ON [facility] VENT. NO RESP DISTRESS OR SOB NOTED. TRACH PATENT AND SECURED. SX'D FOR THICK MOD AMT OF PALE YELLOW SECRETIONS. ALARMS ARE SET AND AUDIBLE. VENT PLUGGED INTO RED OUTLET. AMBU BAG BEDSIDE. WILL CONTINUE TO MONITOR. Addendum: 08/02/18 at 0901 by PETER MARADIAGA RT Amended: Links added.
[2018-08-02] MEDS: HYDROGEN PEROXIDE 480 ML BOTTLE TP SCH ×2 (09:00→21:17)
[2018-08-02] MEDS: FUNGI NAIL TP SCH ×2 (09:00→21:17)
[2018-08-02] MEDS: Z GUARD REMEDY 4 OZ OINT TP SCH ×2 (09:00→21:18)
[2018-08-02] MEDS: BACLOFEN (10 MG) 10 MG TABLET GT SCH ×3 (09:18→17:05)
[2018-08-02] MEDS: FERROUS SULFATE - FOR SA ONLY 330 MG/7.5 ML UDC GT SCH ×3 (09:18→17:04)
[2018-08-02] MEDS: DOCUSATE SODIUM LIQ 100 MG/10 ML UDC GT SCH ×2 (09:18→17:04)
[2018-08-02] MEDS: LEVETIRACETAM SOL (5 ML) 100 MG/ML UDC GT SCH ×2 (09:18→21:16)
[2018-08-02] MEDS: METFORMIN 500 MG TABLET PO SCH ×2 (09:19→17:05)
[2018-08-02] MEDS: ASCORBIC ACID 500 MG TABLET GT SCH ×2 (09:19→17:05)
[2018-08-02] MEDS: PROSTAT (PYXIS) 30 ML UDC GT SCH ×2 (09:19→17:05)
[2018-08-02] MEDS: POTASSIUM CHLORIDE 20 MEQ/15 ML GT SCH (09:19)
[2018-08-02] MEDS: HEPARIN SODIUM, PORCINE 5000 UNITS/1 ML VIAL SQ SCH ×2 (09:20→21:17)
[2018-08-02] MEDS: INSULIN LISPRO/ASPART 100 UNIT/ML CARTRIDGE SQ PRN (18:18)
[2018-08-02 19:47] VITALS: BP 110/70
--- NOTE | 2018-08-02 20:10 | NUR ---
RT NOTE PT RECEIVED ON [facility] VENT ON THE FOLLOWING NOTED SETTINGS. NO RESP DISTRESS OR SOB NOTED. PT SUCTIONED: MOD THIN WHITE SECRETIONS. BREATHING TX GIVEN, NO ADVERSE REACTIONS NOTED AT THIS TIME. VENT IS PLUGGED INTO RED OUTLET. ALARMS ARE ON AND AUDIBLE. AMBU BAG AND SPARE TRACH ARE AT BEDSIDE. WILL CONT TO MONITOR. Addendum: 08/02/18 at 2010 by BARI GARZA RT Amended: Links added.
[2018-08-02] MEDS: MULTIVIT W/MINERALS 1 TAB TABLET GT SCH (21:16)
[2018-08-02] MEDS: SENNOSIDES 8.6 MG TABLET GT SCH (21:18)
[2018-08-02] MEDS: BASAGLAR SQ SCH (22:37)
[2018-08-03] MEDS: ALBUTEROL FS 2.5 MG/3 ML VIAL.NEB NEB SCH ×4 (01:13→20:05)
[2018-08-03] MEDS: IPRATROPIUM NEB FS 0.5 MG/2.5 ML AMPUL.NEB NEB SCH ×4 (01:13→20:05)
[2018-08-03] MEDS: POLYVINYL ALCOHOL 15 ML BOTTLE EACHEYE SCH ×3 (05:57→18:33)
[2018-08-03] MEDS: OMEPRAZOLE DR 20 MG GT SCH (05:57)
[2018-08-03] MEDS: GLUCERNA 1.2 1,000 ML BOTTLE GT PRN (05:57)
[2018-08-03] MEDS: BLOOD SUGAR DIAGNOSTIC 1 EACH STRIP IN SCH ×2 (06:49→18:38)
[2018-08-03] MEDS: INSULIN LISPRO/ASPART 100 UNIT/ML CARTRIDGE SQ PRN (06:50)
--- NOTE | 2018-08-03 07:18 | NUR ---
Female trach pt received on a mechanical vent. Pt sergio is secure. Vent is plugged into a red outlet, alarms are set and audible, and BMV is at bedside. Addendum: 08/03/18 at 1130 by SHABNAM GROSSMAN RT Amended: Links added.
[2018-08-03 08:24] VITALS: BP 111/64
[2018-08-03] MEDS: LEVETIRACETAM SOL (5 ML) 100 MG/ML UDC GT SCH ×2 (08:58→21:27)
[2018-08-03] MEDS: ASCORBIC ACID 500 MG TABLET GT SCH ×2 (08:58→16:12)
[2018-08-03] MEDS: PROSTAT (PYXIS) 30 ML UDC GT SCH ×2 (08:58→16:12)
[2018-08-03] MEDS: FERROUS SULFATE - FOR SA ONLY 330 MG/7.5 ML UDC GT SCH ×3 (08:58→16:22)
[2018-08-03] MEDS: DOCUSATE SODIUM LIQ 100 MG/10 ML UDC GT SCH ×2 (08:58→16:12)
[2018-08-03] MEDS: POTASSIUM CHLORIDE 20 MEQ/15 ML GT SCH (08:58)
[2018-08-03] MEDS: BACLOFEN (10 MG) 10 MG TABLET GT SCH ×3 (08:58→16:22)
[2018-08-03] MEDS: METFORMIN 500 MG TABLET PO SCH ×2 (08:58→16:12)
[2018-08-03] MEDS: FUNGI NAIL TP SCH ×2 (08:59→21:28)
[2018-08-03] MEDS: Z GUARD REMEDY 4 OZ OINT TP SCH ×2 (08:59→21:28)
[2018-08-03] MEDS: HEPARIN SODIUM, PORCINE 5000 UNITS/1 ML VIAL SQ SCH ×2 (08:59→21:28)
[2018-08-03] MEDS: HYDROGEN PEROXIDE 480 ML BOTTLE TP SCH ×2 (08:59→21:28)
[2018-08-03] MEDS: BISACODYL SUPP (10 MG) 10 MG/SUPP.RECT SUPP.RECT RC PRN (18:56)
[2018-08-03 19:25] VITALS: BP 112/68
--- NOTE | 2018-08-03 20:05 | NUR ---
RT NOTE: RECEIVED TRACH PT ON [facility] VENT ON NOTED SETTINGS PER MD ORDERS. TRACH IS PATENT AND SECURED. BOX MACHINE OPERATOR DONE. AMBU BAG @ BEDSIDE. Q6 BREATHING TX GIVEN WITH NO ADVERSE REACTION NOTED. SX DONE PRN. VENT PLUGGED INTO RED OUTLET. ALARMS ON AND AUDIBLE. NO RESP DISTRESS AT THIS TIME. WILL CONT TO MONITOR PT. Addendum: 08/04/18 at 0256 by SHE BYRNE RT Amended: Links added.
[2018-08-03] MEDS: MULTIVIT W/MINERALS 1 TAB TABLET GT SCH (21:27)
[2018-08-03] MEDS: SENNOSIDES 8.6 MG TABLET GT SCH (21:28)
[2018-08-03] MEDS: BASAGLAR SQ SCH (21:29)
[2018-08-04] MEDS: POLYVINYL ALCOHOL 15 ML BOTTLE EACHEYE SCH ×4 (00:52→18:15)
[2018-08-04] MEDS: ALBUTEROL FS 2.5 MG/3 ML VIAL.NEB NEB SCH ×4 (01:57→19:50)
[2018-08-04] MEDS: IPRATROPIUM NEB FS 0.5 MG/2.5 ML AMPUL.NEB NEB SCH ×4 (01:57→19:50)
[2018-08-04] MEDS: OMEPRAZOLE DR 20 MG GT SCH (06:11)
[2018-08-04] MEDS: BLOOD SUGAR DIAGNOSTIC 1 EACH STRIP IN SCH ×2 (06:52→18:53)
[2018-08-04] MEDS: INSULIN LISPRO/ASPART 100 UNIT/ML CARTRIDGE SQ PRN (06:53)
[2018-08-04 08:06] VITALS: BP 116/81
[2018-08-04] MEDS: PROSTAT (PYXIS) 30 ML UDC GT SCH ×2 (09:50→17:00)
[2018-08-04] MEDS: ASCORBIC ACID 500 MG TABLET GT SCH ×2 (09:50→17:00)
[2018-08-04] MEDS: METFORMIN 500 MG TABLET PO SCH ×2 (09:50→17:00)
[2018-08-04] MEDS: BACLOFEN (10 MG) 10 MG TABLET GT SCH ×3 (09:50→17:00)
[2018-08-04] MEDS: LEVETIRACETAM SOL (5 ML) 100 MG/ML UDC GT SCH ×2 (09:50→20:43)
[2018-08-04] MEDS: FERROUS SULFATE - FOR SA ONLY 330 MG/7.5 ML UDC GT SCH ×3 (09:50→17:00)
[2018-08-04] MEDS: DOCUSATE SODIUM LIQ 100 MG/10 ML UDC GT SCH ×2 (09:50→17:00)
[2018-08-04] MEDS: POTASSIUM CHLORIDE 20 MEQ/15 ML GT SCH (09:50)
[2018-08-04] MEDS: FUNGI NAIL TP SCH ×2 (09:51→20:44)
[2018-08-04] MEDS: Z GUARD REMEDY 4 OZ OINT TP SCH ×2 (09:51→20:44)
[2018-08-04] MEDS: HYDROGEN PEROXIDE 480 ML BOTTLE TP SCH ×2 (09:51→20:44)
[2018-08-04] MEDS: HEPARIN SODIUM, PORCINE 5000 UNITS/1 ML VIAL SQ SCH ×2 (09:51→20:44)
--- NOTE | 2018-08-04 14:53 | NUR ---
MONTHLY TRACH CHANGE PERFORMED W/ [place] 6 CUFFED. EQUITY STRUCTURER USED, BREATH SOUNDS EQUAL, TRACH TUBE/AIRWAY PATENT. NO RESP DISTRESS NOTED, MINIMAL BLEEDING NOTED, TRACH TUBE SECURED W/ TRACH TIE AND GAUZE. Addendum: 08/04/18 at 1455 by VICTORIA DICKEY RT Amended: Links added. Addendum: 08/04/18 at 1501 by VICTORIA DICKEY RT CORRECTION: VAHE 6 CUFFED
--- NOTE | 2018-08-04 17:36 | NUR ---
ERVIN spoke with the resident's sister who had questions about the resident's [employer] insurance re-certification. She noted that she is working on gathering the documents needed and will be calling the [facility] social services technician. ERVIN also informed her that Florinda [facility] is available to assist as well and she reported that she has already spoken with her. ERVIN informed her that once she gathers all of the needed documents, Florinda can assist her in being able to send them to the worker. She appreciated the information given to her.
--- NOTE | 2018-08-04 17:38 | NUR ---
Resident's sister Tosin Horvath provided the telephone sex worker with new insurance cards that the resident received in the mail. SW made a copy and will forward to admitting.
--- NOTE | 2018-08-04 17:47 | NUR ---
INTERDISCIPLINARY PLAN OF CARE CONFERENCE was held today. Resident's sister was not able to attend today's IDT meeting. Dr. Alvarez and the interdisciplinary team discussed the current plan of care in detail. Current orders as well as treatments and medications were reviewed. Per the charge nurses report, no new orders were given during the IDT meeting.
[2018-08-04] MEDS: GLUCERNA 1.2 1,000 ML BOTTLE GT PRN (18:53)
[2018-08-04] MEDS: MULTIVIT W/MINERALS 1 TAB TABLET GT SCH (20:43)
--- NOTE | 2018-08-04 20:53 | NUR ---
PATIENT WAS RECEIVED ON CONTINUOUS VENT SUPPORT ON NOTED VENT SETTINGS. SUPERVISOR TRANSCRIBING OPERATORS DONE. AMBU BAG @ BEDSIDE. Q6 BREATHING TX GIVEN WITH NO ADVERSE REACTION NOTED. SUCTION DONE PRN.TRACH TUBE PATENT AND SECURED. ALARMS ON AND AUDIBLE. NO RESPIRATORY DISTRESS NOTED AT THIS TIME. WILL CONTINUE TO MONITOR PATIENT. Addendum: 08/04/18 at 2053 by EDNA JUNIOR RT Amended: Links added.
[2018-08-04 21:25] VITALS: BP 103/66
[2018-08-04] MEDS: SENNOSIDES 8.6 MG TABLET GT SCH (21:40)
[2018-08-04] MEDS: BASAGLAR SQ SCH (21:40)
[2018-08-05] MEDS: POLYVINYL ALCOHOL 15 ML BOTTLE EACHEYE SCH ×4 (00:28→18:33)
[2018-08-05] MEDS: ALBUTEROL FS 2.5 MG/3 ML VIAL.NEB NEB SCH ×4 (01:42→19:32)
[2018-08-05] MEDS: IPRATROPIUM NEB FS 0.5 MG/2.5 ML AMPUL.NEB NEB SCH ×4 (01:42→19:32)
[2018-08-05] MEDS: OMEPRAZOLE DR 20 MG GT SCH (05:57)
[2018-08-05] MEDS: INSULIN LISPRO/ASPART 100 UNIT/ML CARTRIDGE SQ PRN (06:32)
[2018-08-05] MEDS: BLOOD SUGAR DIAGNOSTIC 1 EACH STRIP IN SCH ×2 (06:32→18:33)
[2018-08-05 07:56] VITALS: BP 111/69
--- NOTE | 2018-08-05 08:12 | NUR ---
pt rec'd trached on [facility] vent on ac mode. no resp distress or sob noted. trach patent and secured. sx'd for thick mod amt of pale yellow secretions. manufacturing technology analyst cuff pressure noted. alarms are set audible. vent plugged into red outlet. ambu bag bedside. will continue to monitor. Addendum: 08/05/18 at 0836 by PETER MARADIAGA RT Amended: Links added.
--- NOTE | 2018-08-05 08:12 | NUR ---
pt rec'd trached on [facility] vent on ac mode. no resp distress or sob noted. trach patent and secured. sx'd for thick mod amt of pale yellow secretions. blade worker cuff pressure noted. alarms are set audible. vent plugged into red outlet. ambu bag bedside. will continue to monitor. Addendum: 08/05/18 at 0841 by PETER MARADIAGA RT Amended: Links added.
[2018-08-05] MEDS: METFORMIN 500 MG TABLET PO SCH ×2 (09:00→17:00)
[2018-08-05] MEDS: Z GUARD REMEDY 4 OZ OINT TP SCH ×2 (09:00→21:54)
[2018-08-05] MEDS: BACLOFEN (10 MG) 10 MG TABLET GT SCH ×3 (09:00→17:00)
[2018-08-05] MEDS: FERROUS SULFATE - FOR SA ONLY 330 MG/7.5 ML UDC GT SCH ×3 (09:00→17:00)
[2018-08-05] MEDS: ASCORBIC ACID 500 MG TABLET GT SCH ×2 (09:00→17:00)
[2018-08-05] MEDS: DOCUSATE SODIUM LIQ 100 MG/10 ML UDC GT SCH ×2 (09:00→17:00)
[2018-08-05] MEDS: POTASSIUM CHLORIDE 20 MEQ/15 ML GT SCH (09:00)
[2018-08-05] MEDS: PROSTAT (PYXIS) 30 ML UDC GT SCH ×2 (09:00→17:00)
[2018-08-05] MEDS: HYDROGEN PEROXIDE 480 ML BOTTLE TP SCH ×2 (09:00→21:54)
[2018-08-05] MEDS: FUNGI NAIL TP SCH ×2 (09:00→21:54)
[2018-08-05] MEDS: HEPARIN SODIUM, PORCINE 5000 UNITS/1 ML VIAL SQ SCH ×2 (09:00→21:54)
[2018-08-05] MEDS: LEVETIRACETAM SOL (5 ML) 100 MG/ML UDC GT SCH ×2 (09:00→21:54)
--- NOTE | 2018-08-05 19:46 | NUR ---
RT NOTE PT RECEIVED ON [facility] VENT ON THE FOLLOWING NOTED SETTINGS. NO RESP DISTRESS OR SOB NOTED AT THIS TIME. PT SUCTIONED: MOD THIN WHITE SECRETIONS NOTED. BREATHING TX GIVEN, NO ADVERSE REACTIONS NOTED. VENT IS PLUGGED INTO RED OUTLET. ALARMS ARE ON AND AUDIBLE. AMBU BAG AND SPARE TRACH ARE AT BEDSIDE. WILL CONT TO MONITOR PT. Addendum: 08/05/18 at 1947 by BARI GARZA RT Amended: Links added.
[2018-08-05 20:15] VITALS: BP 105/74
[2018-08-05] MEDS: MULTIVIT W/MINERALS 1 TAB TABLET GT SCH (21:54)
[2018-08-05] MEDS: SENNOSIDES 8.6 MG TABLET GT SCH (21:54)
[2018-08-05] MEDS: BASAGLAR SQ SCH (21:56)
[2018-08-06] MEDS: POLYVINYL ALCOHOL 15 ML BOTTLE EACHEYE SCH ×4 (00:44→17:01)
[2018-08-06] MEDS: ALBUTEROL FS 2.5 MG/3 ML VIAL.NEB NEB SCH ×4 (01:42→19:50)
[2018-08-06] MEDS: IPRATROPIUM NEB FS 0.5 MG/2.5 ML AMPUL.NEB NEB SCH ×4 (01:42→19:50)
[2018-08-06] MEDS: OMEPRAZOLE DR 20 MG GT SCH (05:51)
[2018-08-06] MEDS: GLUCERNA 1.2 1,000 ML BOTTLE GT PRN (05:54)
[2018-08-06] MEDS: BLOOD SUGAR DIAGNOSTIC 1 EACH STRIP IN SCH ×2 (06:17→18:47)
[2018-08-06] MEDS: INSULIN LISPRO/ASPART 100 UNIT/ML CARTRIDGE SQ PRN ×2 (06:17→18:47)
[2018-08-06 07:33] VITALS: BP 107/77
[2018-08-06] MEDS: FUNGI NAIL TP SCH ×2 (09:00→21:56)
[2018-08-06] MEDS: Z GUARD REMEDY 4 OZ OINT TP SCH ×2 (09:00→21:56)
[2018-08-06] MEDS: POTASSIUM CHLORIDE 20 MEQ/15 ML GT SCH (09:00)
[2018-08-06] MEDS: PROSTAT (PYXIS) 30 ML UDC GT SCH ×2 (09:00→16:59)
[2018-08-06] MEDS: HEPARIN SODIUM, PORCINE 5000 UNITS/1 ML VIAL SQ SCH ×2 (09:00→21:58)
[2018-08-06] MEDS: DOCUSATE SODIUM LIQ 100 MG/10 ML UDC GT SCH ×2 (09:00→16:59)
[2018-08-06] MEDS: ASCORBIC ACID 500 MG TABLET GT SCH ×2 (09:00→17:00)
[2018-08-06] MEDS: FERROUS SULFATE - FOR SA ONLY 330 MG/7.5 ML UDC GT SCH ×3 (09:00→16:59)
[2018-08-06] MEDS: BACLOFEN (10 MG) 10 MG TABLET GT SCH ×3 (09:00→17:00)
[2018-08-06] MEDS: METFORMIN 500 MG TABLET PO SCH ×2 (09:00→17:00)
[2018-08-06] MEDS: HYDROGEN PEROXIDE 480 ML BOTTLE TP SCH ×2 (09:00→21:56)
[2018-08-06] MEDS: LEVETIRACETAM SOL (5 ML) 100 MG/ML UDC GT SCH ×2 (09:00→21:59)
[2018-08-06 20:00] VITALS: BP 112/75
[2018-08-06 20:05] VITALS: BP 112/75
[2018-08-06] MEDS: MULTIVIT W/MINERALS 1 TAB TABLET GT SCH (21:00)
[2018-08-06] MEDS: SENNOSIDES 8.6 MG TABLET GT SCH (21:57)
[2018-08-06] MEDS: BASAGLAR SQ SCH (22:14)
[2018-08-07] MEDS: ALBUTEROL FS 2.5 MG/3 ML VIAL.NEB NEB SCH ×4 (01:58→19:27)
[2018-08-07] MEDS: IPRATROPIUM NEB FS 0.5 MG/2.5 ML AMPUL.NEB NEB SCH ×4 (01:58→19:27)
[2018-08-07] MEDS: GLUCERNA 1.2 1,000 ML BOTTLE GT PRN (02:54)
[2018-08-07] MEDS: POLYVINYL ALCOHOL 15 ML BOTTLE EACHEYE SCH ×4 (05:17→17:27)
[2018-08-07] MEDS: OMEPRAZOLE DR 20 MG GT SCH (05:18)
[2018-08-07] MEDS: BLOOD SUGAR DIAGNOSTIC 1 EACH STRIP IN SCH ×2 (06:14→18:36)
[2018-08-07 08:04] VITALS: BP 128/76
--- NOTE | 2018-08-07 08:34 | NUR ---
PT REC'D TRACHED ON [facility] VENT ON AC MODE. NO RESP DISTRESS OR SOB NOTED. TRACH PATENT AND SECURED. SX'D FOR THICK MOD AMT OF PALE YELLWO SECRETIONS. ALARMS ARE SET AND AUDIBLE. VENT PLUGGED INTO RED OUTLET. AMBU BAG BEDSIDE. WILL CONTINUE TO MONITOR. Addendum: 08/07/18 at 0914 by PETER MARADIAGA RT Amended: Links added.
[2018-08-07] MEDS: ASCORBIC ACID 500 MG TABLET GT SCH ×2 (09:00→17:21)
[2018-08-07] MEDS: DOCUSATE SODIUM LIQ 100 MG/10 ML UDC GT SCH ×2 (09:00→17:20)
[2018-08-07] MEDS: Z GUARD REMEDY 4 OZ OINT TP SCH ×2 (09:00→20:58)
[2018-08-07] MEDS: BACLOFEN (10 MG) 10 MG TABLET GT SCH ×3 (09:00→17:20)
[2018-08-07] MEDS: PROSTAT (PYXIS) 30 ML UDC GT SCH ×2 (09:00→17:20)
[2018-08-07] MEDS: POTASSIUM CHLORIDE 20 MEQ/15 ML GT SCH (09:00)
[2018-08-07] MEDS: HYDROGEN PEROXIDE 480 ML BOTTLE TP SCH ×2 (09:00→20:58)
[2018-08-07] MEDS: FUNGI NAIL TP SCH ×2 (09:00→20:58)
[2018-08-07] MEDS: LEVETIRACETAM SOL (5 ML) 100 MG/ML UDC GT SCH ×2 (09:00→20:57)
[2018-08-07] MEDS: METFORMIN 500 MG TABLET PO SCH ×2 (09:00→17:21)
[2018-08-07] MEDS: HEPARIN SODIUM, PORCINE 5000 UNITS/1 ML VIAL SQ SCH ×2 (09:00→20:58)
[2018-08-07] MEDS: FERROUS SULFATE - FOR SA ONLY 330 MG/7.5 ML UDC GT SCH ×3 (09:00→17:20)
[2018-08-07] MEDS: INSULIN LISPRO/ASPART 100 UNIT/ML CARTRIDGE SQ PRN (18:36)
--- NOTE | 2018-08-07 19:41 | NUR ---
RT NOTE PT RECEIVED ON [facility] VENT ON THE FOLLOWING NOTED SETTINGS. NO RESP DISTRESS OR SOB NOTED AT THIS TIME. BREATHING TX GIVEN, NO ADVERSE REACTIONS NOTED. PT SUCTIONED: MOD THIN WHITE/CLEAR SECRETIONS. VENT IS PLUGGED INTO RED OUTLET. ALARMS ARE ON AND AUDIBLE. SPARE TRACH AND AMBU BAG ARE AT BEDSIDE. WILL CONT TO MONITOR PT. Addendum: 08/07/18 at 1941 by BARI GARZA RT Amended: Links added.
[2018-08-07] MEDS: MULTIVIT W/MINERALS 1 TAB TABLET GT SCH (20:57)
[2018-08-07] MEDS: BASAGLAR SQ SCH (22:04)
[2018-08-07] MEDS: SENNOSIDES 8.6 MG TABLET GT SCH (22:04)
[2018-08-08] MEDS: POLYVINYL ALCOHOL 15 ML BOTTLE EACHEYE SCH ×4 (00:03→18:12)
[2018-08-08] MEDS: IPRATROPIUM NEB FS 0.5 MG/2.5 ML AMPUL.NEB NEB SCH ×4 (01:49→19:30)
[2018-08-08] MEDS: ALBUTEROL FS 2.5 MG/3 ML VIAL.NEB NEB SCH ×4 (01:49→19:30)
[2018-08-08] MEDS: OMEPRAZOLE DR 20 MG GT SCH (06:00)
[2018-08-08] MEDS: POLYETHYLENE GLYCOL 3350 17 GM POWD.PACK GT PRN (06:31)
[2018-08-08] MEDS: BLOOD SUGAR DIAGNOSTIC 1 EACH STRIP IN SCH ×2 (06:41→19:04)
[2018-08-08] MEDS: INSULIN LISPRO/ASPART 100 UNIT/ML CARTRIDGE SQ PRN ×2 (06:41→19:05)
[2018-08-08 07:53] VITALS: BP 107/78
[2018-08-08] MEDS: METFORMIN 500 MG TABLET PO SCH ×2 (08:56→17:00)
[2018-08-08] MEDS: DOCUSATE SODIUM LIQ 100 MG/10 ML UDC GT SCH ×2 (08:56→17:00)
[2018-08-08] MEDS: POTASSIUM CHLORIDE 20 MEQ/15 ML GT SCH (08:56)
[2018-08-08] MEDS: PROSTAT (PYXIS) 30 ML UDC GT SCH ×2 (08:56→17:00)
[2018-08-08] MEDS: BACLOFEN (10 MG) 10 MG TABLET GT SCH ×3 (08:56→17:00)
[2018-08-08] MEDS: LEVETIRACETAM SOL (5 ML) 100 MG/ML UDC GT SCH ×2 (08:56→21:30)
[2018-08-08] MEDS: ASCORBIC ACID 500 MG TABLET GT SCH ×2 (08:56→17:00)
[2018-08-08] MEDS: FERROUS SULFATE - FOR SA ONLY 330 MG/7.5 ML UDC GT SCH ×3 (08:56→17:00)
[2018-08-08] MEDS: HEPARIN SODIUM, PORCINE 5000 UNITS/1 ML VIAL SQ SCH ×2 (08:57→21:31)
[2018-08-08] MEDS: Z GUARD REMEDY 4 OZ OINT TP SCH ×2 (09:06→21:32)
[2018-08-08] MEDS: FUNGI NAIL TP SCH ×2 (09:06→21:32)
[2018-08-08] MEDS: HYDROGEN PEROXIDE 480 ML BOTTLE TP SCH ×2 (09:06→21:32)
[2018-08-08] MEDS: MULTIVIT W/MINERALS 1 TAB TABLET GT SCH (21:30)
[2018-08-08] MEDS: SENNOSIDES 8.6 MG TABLET GT SCH (21:32)
[2018-08-08] MEDS: BASAGLAR SQ SCH (22:03)
[2018-08-09] MEDS: POLYVINYL ALCOHOL 15 ML BOTTLE EACHEYE SCH ×4 (00:56→17:33)
[2018-08-09 01:20] VITALS: BP 107/69
[2018-08-09] MEDS: ALBUTEROL FS 2.5 MG/3 ML VIAL.NEB NEB SCH ×4 (01:44→19:50)
[2018-08-09] MEDS: IPRATROPIUM NEB FS 0.5 MG/2.5 ML AMPUL.NEB NEB SCH ×4 (01:44→19:49)
[2018-08-09] MEDS: OMEPRAZOLE DR 20 MG GT SCH (06:12)
[2018-08-09] MEDS: BLOOD SUGAR DIAGNOSTIC 1 EACH STRIP IN SCH ×2 (07:05→18:39)
[2018-08-09] MEDS: INSULIN LISPRO/ASPART 100 UNIT/ML CARTRIDGE SQ PRN (07:06)
[2018-08-09 07:40] VITALS: BP 148/65
[2018-08-09] MEDS: FERROUS SULFATE - FOR SA ONLY 330 MG/7.5 ML UDC GT SCH ×3 (09:00→17:33)
[2018-08-09] MEDS: HYDROGEN PEROXIDE 480 ML BOTTLE TP SCH ×2 (09:00→21:22)
[2018-08-09] MEDS: DOCUSATE SODIUM LIQ 100 MG/10 ML UDC GT SCH ×2 (09:00→17:33)
[2018-08-09] MEDS: POTASSIUM CHLORIDE 20 MEQ/15 ML GT SCH (09:00)
[2018-08-09] MEDS: BACLOFEN (10 MG) 10 MG TABLET GT SCH ×3 (09:00→17:33)
[2018-08-09] MEDS: Z GUARD REMEDY 4 OZ OINT TP SCH ×2 (09:00→21:22)
[2018-08-09] MEDS: HEPARIN SODIUM, PORCINE 5000 UNITS/1 ML VIAL SQ SCH ×2 (09:00→21:22)
[2018-08-09] MEDS: ASCORBIC ACID 500 MG TABLET GT SCH ×2 (09:00→17:33)
[2018-08-09] MEDS: FUNGI NAIL TP SCH ×2 (09:00→21:22)
[2018-08-09] MEDS: PROSTAT (PYXIS) 30 ML UDC GT SCH ×2 (09:00→17:33)
[2018-08-09] MEDS: LEVETIRACETAM SOL (5 ML) 100 MG/ML UDC GT SCH ×2 (09:00→21:21)
[2018-08-09] MEDS: METFORMIN 500 MG TABLET PO SCH ×2 (09:00→17:33)
--- NOTE | 2018-08-09 19:50 | NUR ---
RT NOTE: RECEIVED TRACH PT ON [facility] VENT ON NOTED SETTINGS PER MD ORDERS. TRACH IS PATENT AND SECURED. SECOND LANGUAGE TUTOR DONE. Q6 BREATHING TX GIVEN WITH NO ADVERSE REACTION NOTED. SX DONE PRN. VENT PLUGGED INTO RED OUTLET. ALARMS ON AND AUDIBLE. ERIC BAG @ BEDSIDE. NO RESP DISTRESS AT THIS TIME. WILL CONT TO MONITOR PT. Addendum: 08/09/18 at 2223 by SHE BYRNE RT Amended: Links added.
[2018-08-09 21:11] VITALS: BP 121/70
[2018-08-09] MEDS: MULTIVIT W/MINERALS 1 TAB TABLET GT SCH (21:21)
[2018-08-09] MEDS: GLUCERNA 1.2 1,000 ML BOTTLE GT PRN (21:22)
[2018-08-09] MEDS: SENNOSIDES 8.6 MG TABLET GT SCH (21:22)
[2018-08-09] MEDS: BASAGLAR SQ SCH (21:55)
[2018-08-10] MEDS: POLYVINYL ALCOHOL 15 ML BOTTLE EACHEYE SCH ×4 (00:55→17:23)
[2018-08-10] MEDS: IPRATROPIUM NEB FS 0.5 MG/2.5 ML AMPUL.NEB NEB SCH ×4 (01:21→19:58)
[2018-08-10] MEDS: ALBUTEROL FS 2.5 MG/3 ML VIAL.NEB NEB SCH ×4 (01:21→19:58)
[2018-08-10] MEDS: OMEPRAZOLE DR 20 MG GT SCH (05:14)
[2018-08-10] MEDS: INSULIN LISPRO/ASPART 100 UNIT/ML CARTRIDGE SQ PRN (06:58)
[2018-08-10] MEDS: BLOOD SUGAR DIAGNOSTIC 1 EACH STRIP IN SCH ×2 (06:58→18:43)
[2018-08-10 07:59] VITALS: BP 117/79
[2018-08-10] MEDS: FERROUS SULFATE - FOR SA ONLY 330 MG/7.5 ML UDC GT SCH ×3 (09:12→17:23)
[2018-08-10] MEDS: METFORMIN 500 MG TABLET PO SCH ×2 (09:12→17:23)
[2018-08-10] MEDS: ASCORBIC ACID 500 MG TABLET GT SCH ×2 (09:12→17:23)
[2018-08-10] MEDS: POTASSIUM CHLORIDE 20 MEQ/15 ML GT SCH (09:12)
[2018-08-10] MEDS: DOCUSATE SODIUM LIQ 100 MG/10 ML UDC GT SCH ×2 (09:12→17:23)
[2018-08-10] MEDS: LEVETIRACETAM SOL (5 ML) 100 MG/ML UDC GT SCH ×2 (09:12→21:07)
[2018-08-10] MEDS: PROSTAT (PYXIS) 30 ML UDC GT SCH ×2 (09:12→17:23)
[2018-08-10] MEDS: BACLOFEN (10 MG) 10 MG TABLET GT SCH ×3 (09:12→17:23)
[2018-08-10] MEDS: HYDROGEN PEROXIDE 480 ML BOTTLE TP SCH ×2 (09:13→21:10)
[2018-08-10] MEDS: FUNGI NAIL TP SCH ×2 (09:13→21:10)
[2018-08-10] MEDS: HEPARIN SODIUM, PORCINE 5000 UNITS/1 ML VIAL SQ SCH ×2 (09:13→21:10)
[2018-08-10] MEDS: Z GUARD REMEDY 4 OZ OINT TP SCH ×2 (09:13→21:10)
[2018-08-10 21:00] VITALS: BP 113/75
[2018-08-10] MEDS: MULTIVIT W/MINERALS 1 TAB TABLET GT SCH (21:07)
[2018-08-10] MEDS: SENNOSIDES 8.6 MG TABLET GT SCH (21:10)
[2018-08-10] MEDS: BASAGLAR SQ SCH (21:11)
[2018-08-11] MEDS: ALBUTEROL FS 2.5 MG/3 ML VIAL.NEB NEB SCH ×4 (01:34→19:48)
[2018-08-11] MEDS: IPRATROPIUM NEB FS 0.5 MG/2.5 ML AMPUL.NEB NEB SCH ×4 (01:34→19:48)
[2018-08-11] MEDS: POLYVINYL ALCOHOL 15 ML BOTTLE EACHEYE SCH ×5 (06:14→23:35)
[2018-08-11] MEDS: OMEPRAZOLE DR 20 MG GT SCH (06:14)
[2018-08-11] MEDS: BLOOD SUGAR DIAGNOSTIC 1 EACH STRIP IN SCH ×2 (06:15→18:16)
[2018-08-11] MEDS: INSULIN LISPRO/ASPART 100 UNIT/ML CARTRIDGE SQ PRN ×2 (06:16→18:17)
[2018-08-11 08:04] VITALS: BP 109/55
[2018-08-11] MEDS: METFORMIN 500 MG TABLET PO SCH ×2 (09:19→17:59)
[2018-08-11] MEDS: PROSTAT (PYXIS) 30 ML UDC GT SCH ×2 (09:19→17:59)
[2018-08-11] MEDS: ASCORBIC ACID 500 MG TABLET GT SCH ×2 (09:19→17:59)
[2018-08-11] MEDS: FERROUS SULFATE - FOR SA ONLY 330 MG/7.5 ML UDC GT SCH ×3 (09:19→17:59)
[2018-08-11] MEDS: POTASSIUM CHLORIDE 20 MEQ/15 ML GT SCH (09:19)
[2018-08-11] MEDS: DOCUSATE SODIUM LIQ 100 MG/10 ML UDC GT SCH ×2 (09:19→17:59)
[2018-08-11] MEDS: LEVETIRACETAM SOL (5 ML) 100 MG/ML UDC GT SCH ×2 (09:19→21:14)
[2018-08-11] MEDS: BACLOFEN (10 MG) 10 MG TABLET GT SCH ×3 (09:19→17:59)
[2018-08-11] MEDS: Z GUARD REMEDY 4 OZ OINT TP SCH ×2 (09:28→21:15)
[2018-08-11] MEDS: HEPARIN SODIUM, PORCINE 5000 UNITS/1 ML VIAL SQ SCH ×2 (09:28→21:15)
[2018-08-11] MEDS: FUNGI NAIL TP SCH ×2 (09:28→21:15)
[2018-08-11] MEDS: HYDROGEN PEROXIDE 480 ML BOTTLE TP SCH ×2 (09:28→21:15)
--- NOTE | 2018-08-11 15:42 | NUR ---
Seen and examined by Dr. Bullard, NNO given.
[2018-08-11] MEDS: GLUCERNA 1.2 1,000 ML BOTTLE GT PRN (18:12)
[2018-08-11 19:56] VITALS: BP 118/77
[2018-08-11] MEDS: MULTIVIT W/MINERALS 1 TAB TABLET GT SCH (21:14)
[2018-08-11] MEDS: BASAGLAR SQ SCH (21:15)
[2018-08-11] MEDS: SENNOSIDES 8.6 MG TABLET GT SCH (21:15)
[2018-08-12] MEDS: IPRATROPIUM NEB FS 0.5 MG/2.5 ML AMPUL.NEB NEB SCH ×4 (01:26→19:41)
[2018-08-12] MEDS: ALBUTEROL FS 2.5 MG/3 ML VIAL.NEB NEB SCH ×4 (01:26→19:41)
[2018-08-12] MEDS: POLYVINYL ALCOHOL 15 ML BOTTLE EACHEYE SCH ×3 (05:38→18:02)
[2018-08-12] MEDS: OMEPRAZOLE DR 20 MG GT SCH (05:38)
[2018-08-12] MEDS: BLOOD SUGAR DIAGNOSTIC 1 EACH STRIP IN SCH ×2 (06:42→18:07)
[2018-08-12] MEDS: INSULIN LISPRO/ASPART 100 UNIT/ML CARTRIDGE SQ PRN ×2 (06:42→18:08)
[2018-08-12 07:31] VITALS: BP 101/67
[2018-08-12] MEDS: BACLOFEN (10 MG) 10 MG TABLET GT SCH ×3 (09:29→17:00)
[2018-08-12] MEDS: METFORMIN 500 MG TABLET PO SCH ×2 (09:29→17:00)
[2018-08-12] MEDS: FERROUS SULFATE - FOR SA ONLY 330 MG/7.5 ML UDC GT SCH ×3 (09:29→17:00)
[2018-08-12] MEDS: ASCORBIC ACID 500 MG TABLET GT SCH ×2 (09:29→17:00)
[2018-08-12] MEDS: PROSTAT (PYXIS) 30 ML UDC GT SCH ×2 (09:29→17:00)
[2018-08-12] MEDS: POTASSIUM CHLORIDE 20 MEQ/15 ML GT SCH (09:29)
[2018-08-12] MEDS: LEVETIRACETAM SOL (5 ML) 100 MG/ML UDC GT SCH ×2 (09:29→20:44)
[2018-08-12] MEDS: DOCUSATE SODIUM LIQ 100 MG/10 ML UDC GT SCH ×2 (09:29→17:00)
[2018-08-12] MEDS: HEPARIN SODIUM, PORCINE 5000 UNITS/1 ML VIAL SQ SCH ×2 (09:30→20:44)
[2018-08-12] MEDS: FUNGI NAIL TP SCH ×2 (09:56→20:45)
[2018-08-12] MEDS: HYDROGEN PEROXIDE 480 ML BOTTLE TP SCH ×2 (09:56→20:44)
[2018-08-12] MEDS: Z GUARD REMEDY 4 OZ OINT TP SCH ×2 (09:57→20:45)
--- NOTE | 2018-08-12 10:54 | NUR ---
PT RCVD TRACH'D ON MECHANICAL VENT WITH CHARTED SETTINGS. HHN TX GIVEN WITH NO ADVERSE REACTION NOTED. SX DONE. PT TRACH PATENT AND SECURE. ALARMS ARE ON AND AUDIBLE. VENT PLUGGED INTO RED OUTLET. AMBU BAG AT BEDSIDE. WILL CONTINUE TO MONITOR. Addendum: 08/12/18 at 1054 by CHAGO HOLMAN RT Amended: Links added.
[2018-08-12 19:37] VITALS: BP 113/61
[2018-08-12] MEDS: MULTIVIT W/MINERALS 1 TAB TABLET GT SCH (20:44)
[2018-08-12] MEDS: SENNOSIDES 8.6 MG TABLET GT SCH (21:50)
[2018-08-12] MEDS: BASAGLAR SQ SCH (21:50)
--- NOTE | 2018-08-12 23:02 | NUR ---
RT NOTE PATIENT WAS RECEIVED ON CONTINUOUS VENT SUPPORT ON NOTED VENT SETTINGS. HHN INLINE TREATMENT WAS GIVEN, NO ADVERSE REACTION NOTED ,PRN SUCTION WAS DONE. TRACH TUBE PATENT AND SECURED. ALARMS ON AND AUDIBLE. WILL CONTINUE TO MONITOR PATIENT Addendum: 08/12/18 at 2303 by EDNA JUNIOR RT Amended: Links added.
[2018-08-13] MEDS: POLYVINYL ALCOHOL 15 ML BOTTLE EACHEYE SCH ×5 (00:15→23:35)
[2018-08-13] MEDS: IPRATROPIUM NEB FS 0.5 MG/2.5 ML AMPUL.NEB NEB SCH ×4 (01:39→19:54)
[2018-08-13] MEDS: ALBUTEROL FS 2.5 MG/3 ML VIAL.NEB NEB SCH ×4 (01:39→19:54)
[2018-08-13] MEDS: OMEPRAZOLE DR 20 MG GT SCH (05:45)
[2018-08-13] MEDS: GLUCERNA 1.2 1,000 ML BOTTLE GT PRN (05:48)
[2018-08-13] MEDS: BLOOD SUGAR DIAGNOSTIC 1 EACH STRIP IN SCH ×2 (07:02→18:05)
[2018-08-13] MEDS: INSULIN LISPRO/ASPART 100 UNIT/ML CARTRIDGE SQ PRN ×2 (07:04→18:06)
[2018-08-13 07:41] VITALS: BP 99/55
[2018-08-13] MEDS: Z GUARD REMEDY 4 OZ OINT TP SCH ×2 (09:00→21:34)
[2018-08-13] MEDS: HYDROGEN PEROXIDE 480 ML BOTTLE TP SCH ×2 (09:00→21:34)
[2018-08-13] MEDS: FUNGI NAIL TP SCH ×2 (09:00→21:34)
[2018-08-13] MEDS: METFORMIN 500 MG TABLET PO SCH ×2 (09:04→17:18)
[2018-08-13] MEDS: PROSTAT (PYXIS) 30 ML UDC GT SCH ×2 (09:04→17:18)
[2018-08-13] MEDS: DOCUSATE SODIUM LIQ 100 MG/10 ML UDC GT SCH ×2 (09:04→17:18)
[2018-08-13] MEDS: LEVETIRACETAM SOL (5 ML) 100 MG/ML UDC GT SCH ×2 (09:04→21:33)
[2018-08-13] MEDS: FERROUS SULFATE - FOR SA ONLY 330 MG/7.5 ML UDC GT SCH ×3 (09:04→17:18)
[2018-08-13] MEDS: ASCORBIC ACID 500 MG TABLET GT SCH ×2 (09:04→17:18)
[2018-08-13] MEDS: POTASSIUM CHLORIDE 20 MEQ/15 ML GT SCH (09:04)
[2018-08-13] MEDS: BACLOFEN (10 MG) 10 MG TABLET GT SCH ×3 (09:04→17:18)
[2018-08-13] MEDS: HEPARIN SODIUM, PORCINE 5000 UNITS/1 ML VIAL SQ SCH ×2 (09:07→21:33)
--- NOTE | 2018-08-13 11:47 | NUR ---
RT RECD PT TRACHED INTACT & SECURED ON MECH VENT TUTU ORDERED SETTINGS ALARMS ON AND AUDIBLE BAG AND MASK AT HOB SX THICK YELLOW SECRETIONS NO RESP DISTRESS THROUGHOUT SHIFT WILL CONT TO MONITOR
--- NOTE | 2018-08-13 19:55 | NUR ---
RT NOTE: RECEIVED TRACH PT ON [facility] VENT ON NOTED SETTINGS PER MD ORDERS. TRACH IS PATENT AND SECURED. GAS METER REPAIR SUPERVISOR DONE. Q6 BREATHING TX GIVEN WITH NO ADVERSE REACTION NOTED. SX DONE PRN. VENT PLUGGED INTO RED OUTLET. ALARMS ON AND AUDIBLE. ERIC BAG @ BEDSIDE. NO RESP DISTRESS AT THIS TIME. WILL CONT TO MONITOR PT. Addendum: 08/14/18 at 0241 by SHE BYRNE RT Amended: Links added.
[2018-08-13 20:00] VITALS: BP 121/86
[2018-08-13 20:28] VITALS: BP 121/86
[2018-08-13] MEDS: MULTIVIT W/MINERALS 1 TAB TABLET GT SCH (21:32)
[2018-08-13] MEDS: SENNOSIDES 8.6 MG TABLET GT SCH (21:34)
[2018-08-13] MEDS: BASAGLAR SQ SCH (21:42)
[2018-08-14] MEDS: IPRATROPIUM NEB FS 0.5 MG/2.5 ML AMPUL.NEB NEB SCH ×4 (01:42→19:40)
[2018-08-14] MEDS: ALBUTEROL FS 2.5 MG/3 ML VIAL.NEB NEB SCH ×4 (01:43→19:40)
[2018-08-14] MEDS: GLUCERNA 1.2 1,000 ML BOTTLE GT PRN (06:14)
[2018-08-14] MEDS: OMEPRAZOLE DR 20 MG GT SCH (06:14)
[2018-08-14] MEDS: POLYVINYL ALCOHOL 15 ML BOTTLE EACHEYE SCH ×3 (06:14→17:36)
[2018-08-14] MEDS: BLOOD SUGAR DIAGNOSTIC 1 EACH STRIP IN SCH ×2 (06:14→18:30)
[2018-08-14] MEDS: INSULIN LISPRO/ASPART 100 UNIT/ML CARTRIDGE SQ PRN ×2 (06:18→18:30)
[2018-08-14 07:47] VITALS: BP 102/68
[2018-08-14] MEDS: LEVETIRACETAM SOL (5 ML) 100 MG/ML UDC GT SCH ×2 (09:15→21:10)
[2018-08-14] MEDS: PROSTAT (PYXIS) 30 ML UDC GT SCH ×2 (09:15→17:35)
[2018-08-14] MEDS: DOCUSATE SODIUM LIQ 100 MG/10 ML UDC GT SCH ×2 (09:15→17:35)
[2018-08-14] MEDS: ASCORBIC ACID 500 MG TABLET GT SCH ×2 (09:15→17:35)
[2018-08-14] MEDS: FERROUS SULFATE - FOR SA ONLY 330 MG/7.5 ML UDC GT SCH ×3 (09:15→17:35)
[2018-08-14] MEDS: POTASSIUM CHLORIDE 20 MEQ/15 ML GT SCH (09:15)
[2018-08-14] MEDS: METFORMIN 500 MG TABLET PO SCH ×2 (09:15→17:35)
[2018-08-14] MEDS: BACLOFEN (10 MG) 10 MG TABLET GT SCH ×3 (09:15→17:35)
[2018-08-14] MEDS: HEPARIN SODIUM, PORCINE 5000 UNITS/1 ML VIAL SQ SCH ×2 (09:16→21:10)
[2018-08-14] MEDS: FUNGI NAIL TP SCH ×2 (09:16→21:10)
[2018-08-14] MEDS: Z GUARD REMEDY 4 OZ OINT TP SCH ×2 (09:16→21:10)
[2018-08-14] MEDS: HYDROGEN PEROXIDE 480 ML BOTTLE TP SCH ×2 (09:16→21:10)
--- NOTE | 2018-08-14 09:19 | NUR ---
RT NOTE RECEIVED PT MECHANICALLY VENTILATED VIA CUFF TRACHEOSTOMY TUBE. CUFF INFLATED. TRACH TUBE MIDLINE AND SECURE. VENTILATOR SETTINGS PRESCRIBED. ALARMS SET PER PROTOCOL AND AUDIBLE. VENT PLUGGED IN TO RED OUTLET. AMBU BAG AT BED SIDE. NO DISTRESS NOTED AT MOMENT. Addendum: 08/14/18 at 0919 by VERÓNICA JUNIOR RT Amended: Links added.
[2018-08-14 20:37] VITALS: BP 99/60
--- NOTE | 2018-08-14 21:05 | NUR ---
PT RCVD LORNA'D ON MECHANICAL VENT WITH CHARTED SETTINGS. HHN TX GIVEN WITH NO ADVERSE REACTION NOTED. SX DONE. PT TRACH PATENT AND SECURE. ALARMS ARE ON AND AUDIBLE. VENT PLUGGED INTO RED OUTLET. AMBU BAG AT BEDSIDE. WILL CONTINUE TO MONITOR. Addendum: 08/14/18 at 2106 by RODERICK JONES RT Amended: Links added.
[2018-08-14] MEDS: MULTIVIT W/MINERALS 1 TAB TABLET GT SCH (21:10)
[2018-08-14] MEDS: SENNOSIDES 8.6 MG TABLET GT SCH (21:10)
[2018-08-14] MEDS: BASAGLAR SQ SCH (21:24)
[2018-08-15] MEDS: POLYVINYL ALCOHOL 15 ML BOTTLE EACHEYE SCH ×4 (00:02→17:26)
[2018-08-15] MEDS: ALBUTEROL FS 2.5 MG/3 ML VIAL.NEB NEB SCH ×4 (00:38→19:21)
[2018-08-15] MEDS: IPRATROPIUM NEB FS 0.5 MG/2.5 ML AMPUL.NEB NEB SCH ×4 (00:38→19:21)
[2018-08-15] MEDS: OMEPRAZOLE DR 20 MG GT SCH (06:15)
[2018-08-15] MEDS: BLOOD SUGAR DIAGNOSTIC 1 EACH STRIP IN SCH ×2 (06:40→18:13)
[2018-08-15] MEDS: INSULIN LISPRO/ASPART 100 UNIT/ML CARTRIDGE SQ PRN ×2 (06:42→18:18)
[2018-08-15 07:36] VITALS: BP 101/70
[2018-08-15] MEDS: METFORMIN 500 MG TABLET PO SCH ×2 (09:16→17:26)
[2018-08-15] MEDS: POTASSIUM CHLORIDE 20 MEQ/15 ML GT SCH (09:16)
[2018-08-15] MEDS: DOCUSATE SODIUM LIQ 100 MG/10 ML UDC GT SCH ×2 (09:16→17:25)
[2018-08-15] MEDS: ASCORBIC ACID 500 MG TABLET GT SCH ×2 (09:16→17:25)
[2018-08-15] MEDS: LEVETIRACETAM SOL (5 ML) 100 MG/ML UDC GT SCH ×2 (09:16→21:56)
[2018-08-15] MEDS: FERROUS SULFATE - FOR SA ONLY 330 MG/7.5 ML UDC GT SCH ×3 (09:16→17:25)
[2018-08-15] MEDS: PROSTAT (PYXIS) 30 ML UDC GT SCH ×2 (09:16→17:25)
[2018-08-15] MEDS: BACLOFEN (10 MG) 10 MG TABLET GT SCH ×3 (09:16→17:25)
[2018-08-15] MEDS: Z GUARD REMEDY 4 OZ OINT TP SCH ×2 (09:17→21:57)
[2018-08-15] MEDS: HYDROGEN PEROXIDE 480 ML BOTTLE TP SCH ×2 (09:17→21:57)
[2018-08-15] MEDS: FUNGI NAIL TP SCH ×2 (09:17→21:57)
[2018-08-15] MEDS: HEPARIN SODIUM, PORCINE 5000 UNITS/1 ML VIAL SQ SCH ×2 (09:20→21:56)
[2018-08-15] MEDS: GLUCERNA 1.2 1,000 ML BOTTLE GT PRN (19:02)
[2018-08-15 20:22] VITALS: BP 114/68
[2018-08-15] MEDS: MULTIVIT W/MINERALS 1 TAB TABLET GT SCH (21:56)
[2018-08-15] MEDS: BASAGLAR SQ SCH (21:57)
[2018-08-15] MEDS: SENNOSIDES 8.6 MG TABLET GT SCH (21:57)
[2018-08-16] MEDS: POLYVINYL ALCOHOL 15 ML BOTTLE EACHEYE SCH ×4 (00:25→17:48)
[2018-08-16] MEDS: ALBUTEROL FS 2.5 MG/3 ML VIAL.NEB NEB SCH ×4 (01:02→20:01)
[2018-08-16] MEDS: IPRATROPIUM NEB FS 0.5 MG/2.5 ML AMPUL.NEB NEB SCH ×4 (01:02→20:01)
[2018-08-16] MEDS: OMEPRAZOLE DR 20 MG GT SCH (05:02)
[2018-08-16] MEDS: DOCUSATE SODIUM LIQ 100 MG/10 ML UDC GT SCH ×2 (09:00→17:48)
[2018-08-16] MEDS: BACLOFEN (10 MG) 10 MG TABLET GT SCH ×3 (09:00→17:48)
[2018-08-16] MEDS: LEVETIRACETAM SOL (5 ML) 100 MG/ML UDC GT SCH ×2 (09:00→20:52)
[2018-08-16] MEDS: POTASSIUM CHLORIDE 20 MEQ/15 ML GT SCH (09:00)
[2018-08-16] MEDS: HYDROGEN PEROXIDE 480 ML BOTTLE TP SCH ×2 (09:00→20:54)
[2018-08-16] MEDS: PROSTAT (PYXIS) 30 ML UDC GT SCH ×2 (09:00→17:48)
[2018-08-16] MEDS: METFORMIN 500 MG TABLET PO SCH ×2 (09:00→17:48)
[2018-08-16] MEDS: FUNGI NAIL TP SCH ×2 (09:00→20:54)
[2018-08-16] MEDS: HEPARIN SODIUM, PORCINE 5000 UNITS/1 ML VIAL SQ SCH ×2 (09:00→20:53)
[2018-08-16] MEDS: Z GUARD REMEDY 4 OZ OINT TP SCH ×2 (09:00→20:54)
[2018-08-16] MEDS: FERROUS SULFATE - FOR SA ONLY 330 MG/7.5 ML UDC GT SCH ×3 (09:00→17:48)
[2018-08-16] MEDS: ASCORBIC ACID 500 MG TABLET GT SCH ×2 (09:00→17:48)
[2018-08-16] MEDS: BLOOD SUGAR DIAGNOSTIC 1 EACH STRIP IN SCH (18:46)
[2018-08-16] MEDS: INSULIN LISPRO/ASPART 100 UNIT/ML CARTRIDGE SQ PRN (18:47)
[2018-08-16 19:51] VITALS: BP 137/79
[2018-08-16] MEDS: MULTIVIT W/MINERALS 1 TAB TABLET GT SCH (20:52)
[2018-08-16] MEDS: SENNOSIDES 8.6 MG TABLET GT SCH (21:04)
[2018-08-16] MEDS: BASAGLAR SQ SCH (22:23)
[2018-08-17] MEDS: POLYVINYL ALCOHOL 15 ML BOTTLE EACHEYE SCH ×4 (00:34→17:59)
[2018-08-17] MEDS: IPRATROPIUM NEB FS 0.5 MG/2.5 ML AMPUL.NEB NEB SCH ×4 (02:00→19:57)
[2018-08-17] MEDS: ALBUTEROL FS 2.5 MG/3 ML VIAL.NEB NEB SCH ×4 (02:00→19:57)
[2018-08-17] MEDS: OMEPRAZOLE DR 20 MG GT SCH (06:05)
[2018-08-17] MEDS: GLUCERNA 1.2 1,000 ML BOTTLE GT PRN (06:05)
[2018-08-17] MEDS: BLOOD SUGAR DIAGNOSTIC 1 EACH STRIP IN SCH ×2 (06:50→18:10)
[2018-08-17] MEDS: INSULIN LISPRO/ASPART 100 UNIT/ML CARTRIDGE SQ PRN (06:51)
[2018-08-17 08:00] VITALS: BP 98/70
[2018-08-17] MEDS: PROSTAT (PYXIS) 30 ML UDC GT SCH ×2 (09:50→17:59)
[2018-08-17] MEDS: METFORMIN 500 MG TABLET PO SCH ×2 (09:50→17:59)
[2018-08-17] MEDS: ASCORBIC ACID 500 MG TABLET GT SCH ×2 (09:50→17:59)
[2018-08-17] MEDS: POTASSIUM CHLORIDE 20 MEQ/15 ML GT SCH (09:50)
[2018-08-17] MEDS: LEVETIRACETAM SOL (5 ML) 100 MG/ML UDC GT SCH ×2 (09:50→20:44)
[2018-08-17] MEDS: DOCUSATE SODIUM LIQ 100 MG/10 ML UDC GT SCH ×2 (09:50→17:59)
[2018-08-17] MEDS: BACLOFEN (10 MG) 10 MG TABLET GT SCH ×3 (09:50→17:59)
[2018-08-17] MEDS: FERROUS SULFATE - FOR SA ONLY 330 MG/7.5 ML UDC GT SCH ×3 (09:50→17:59)
[2018-08-17] MEDS: HYDROGEN PEROXIDE 480 ML BOTTLE TP SCH ×2 (09:51→20:44)
[2018-08-17] MEDS: FUNGI NAIL TP SCH ×2 (09:51→20:45)
[2018-08-17] MEDS: HEPARIN SODIUM, PORCINE 5000 UNITS/1 ML VIAL SQ SCH ×2 (09:51→20:44)
[2018-08-17] MEDS: Z GUARD REMEDY 4 OZ OINT TP SCH ×2 (09:51→20:45)
[2018-08-17 19:59] VITALS: BP 115/74
[2018-08-17] MEDS: MULTIVIT W/MINERALS 1 TAB TABLET GT SCH (20:44)
[2018-08-17] MEDS: SENNOSIDES 8.6 MG TABLET GT SCH (22:01)
[2018-08-17] MEDS: BASAGLAR SQ SCH (22:01)
[2018-08-18] MEDS: POLYVINYL ALCOHOL 15 ML BOTTLE EACHEYE SCH ×4 (00:31→18:35)
[2018-08-18] MEDS: IPRATROPIUM NEB FS 0.5 MG/2.5 ML AMPUL.NEB NEB SCH ×4 (01:29→19:17)
[2018-08-18] MEDS: ALBUTEROL FS 2.5 MG/3 ML VIAL.NEB NEB SCH ×4 (01:29→19:17)
[2018-08-18] MEDS: OMEPRAZOLE DR 20 MG GT SCH (06:16)
[2018-08-18] MEDS: GLUCERNA 1.2 1,000 ML BOTTLE GT PRN (06:16)
[2018-08-18] MEDS: BLOOD SUGAR DIAGNOSTIC 1 EACH STRIP IN SCH ×2 (06:49→18:35)
[2018-08-18] MEDS: INSULIN LISPRO/ASPART 100 UNIT/ML CARTRIDGE SQ PRN (06:50)
[2018-08-18 07:50] VITALS: BP 149/71
--- NOTE | 2018-08-18 08:20 | NUR ---
PT REC'D TRACHED ON [facility] VENT ON AC MODE. NO RESP DISTRESS OR SOB NOTED. TRACH PATENT AND SECURED. SX'D FOR THICK MOD AMT OF PALE YELLOW SECRETIONS. ALARMS ARE SET AND AUDIBLE. VENT PLUGGED INTO RED OUTLET. AMBU BAG BEDSIDE. WILL CONTINUE TO MONITOR. Addendum: 08/18/18 at 1605 by PETER MARADIAGA RT Amended: Links added.
[2018-08-18] MEDS: HEPARIN SODIUM, PORCINE 5000 UNITS/1 ML VIAL SQ SCH ×2 (08:58→20:29)
[2018-08-18] MEDS: METFORMIN 500 MG TABLET PO SCH ×2 (08:58→17:00)
[2018-08-18] MEDS: ASCORBIC ACID 500 MG TABLET GT SCH ×2 (08:58→17:00)
[2018-08-18] MEDS: LEVETIRACETAM SOL (5 ML) 100 MG/ML UDC GT SCH ×2 (08:58→20:28)
[2018-08-18] MEDS: DOCUSATE SODIUM LIQ 100 MG/10 ML UDC GT SCH ×2 (08:58→17:00)
[2018-08-18] MEDS: FERROUS SULFATE - FOR SA ONLY 330 MG/7.5 ML UDC GT SCH ×3 (08:58→17:00)
[2018-08-18] MEDS: POTASSIUM CHLORIDE 20 MEQ/15 ML GT SCH (08:58)
[2018-08-18] MEDS: PROSTAT (PYXIS) 30 ML UDC GT SCH ×2 (08:58→17:00)
[2018-08-18] MEDS: BACLOFEN (10 MG) 10 MG TABLET GT SCH ×3 (08:58→17:00)
[2018-08-18] MEDS: FUNGI NAIL TP SCH ×2 (08:59→20:29)
[2018-08-18] MEDS: HYDROGEN PEROXIDE 480 ML BOTTLE TP SCH ×2 (08:59→20:29)
[2018-08-18] MEDS: Z GUARD REMEDY 4 OZ OINT TP SCH ×2 (08:59→20:29)
--- NOTE | 2018-08-18 19:19 | NUR ---
Pt received on a mechanical vent. Pt trach is secure. Vent is plugged into a red outlet, alarms are set and audible, and BMV is at bedside. Addendum: 08/18/18 at 1919 by SHABNAM GROSSMAN RT Amended: Links added.
[2018-08-18 20:01] VITALS: BP 109/75
[2018-08-18] MEDS: MULTIVIT W/MINERALS 1 TAB TABLET GT SCH (20:28)
[2018-08-18] MEDS: BASAGLAR SQ SCH (22:05)
[2018-08-18] MEDS: SENNOSIDES 8.6 MG TABLET GT SCH (22:05)
[2018-08-19] MEDS: POLYVINYL ALCOHOL 15 ML BOTTLE EACHEYE SCH ×4 (00:40→18:28)
[2018-08-19] MEDS: IPRATROPIUM NEB FS 0.5 MG/2.5 ML AMPUL.NEB NEB SCH ×4 (01:15→19:48)
[2018-08-19] MEDS: ALBUTEROL FS 2.5 MG/3 ML VIAL.NEB NEB SCH ×4 (01:15→19:48)
[2018-08-19] MEDS: OMEPRAZOLE DR 20 MG GT SCH (05:48)
[2018-08-19] MEDS: BLOOD SUGAR DIAGNOSTIC 1 EACH STRIP IN SCH ×2 (06:42→18:28)
[2018-08-19] MEDS: INSULIN LISPRO/ASPART 100 UNIT/ML CARTRIDGE SQ PRN (06:44)
[2018-08-19 08:28] VITALS: BP 99/58
[2018-08-19] MEDS: PROSTAT (PYXIS) 30 ML UDC GT SCH ×2 (09:59→17:00)
[2018-08-19] MEDS: HEPARIN SODIUM, PORCINE 5000 UNITS/1 ML VIAL SQ SCH ×2 (09:59→21:32)
[2018-08-19] MEDS: HYDROGEN PEROXIDE 480 ML BOTTLE TP SCH ×2 (09:59→21:32)
[2018-08-19] MEDS: FERROUS SULFATE - FOR SA ONLY 330 MG/7.5 ML UDC GT SCH ×3 (09:59→17:00)
[2018-08-19] MEDS: DOCUSATE SODIUM LIQ 100 MG/10 ML UDC GT SCH ×2 (09:59→17:00)
[2018-08-19] MEDS: LEVETIRACETAM SOL (5 ML) 100 MG/ML UDC GT SCH ×2 (09:59→21:31)
[2018-08-19] MEDS: BACLOFEN (10 MG) 10 MG TABLET GT SCH ×3 (09:59→17:00)
[2018-08-19] MEDS: ASCORBIC ACID 500 MG TABLET GT SCH ×2 (09:59→17:00)
[2018-08-19] MEDS: FUNGI NAIL TP SCH ×2 (09:59→21:32)
[2018-08-19] MEDS: METFORMIN 500 MG TABLET PO SCH ×2 (09:59→17:00)
[2018-08-19] MEDS: Z GUARD REMEDY 4 OZ OINT TP SCH ×2 (09:59→21:33)
[2018-08-19] MEDS: POTASSIUM CHLORIDE 20 MEQ/15 ML GT SCH (09:59)
[2018-08-19] MEDS: GLUCERNA 1.2 1,000 ML BOTTLE GT PRN (18:28)
[2018-08-19 20:22] VITALS: BP 111/70
[2018-08-19] MEDS: MULTIVIT W/MINERALS 1 TAB TABLET GT SCH (21:31)
[2018-08-19] MEDS: SENNOSIDES 8.6 MG TABLET GT SCH (21:33)
--- NOTE | 2018-08-19 21:57 | NUR ---
RT NOTE PATIENT WAS RECEIVED ON CONTINUOUS VENT SUPPORT ON NOTED VENT SETTINGS. HHN INLINE TREATMENT WAS GIVEN, NO ADVERSE REACTION NOTED ,PRN SUCTION WAS DONE. TRACH TUBE PATENT AND SECURED. ALARMS ON AND AUDIBLE. WILL CONTINUE TO MONITOR PATIENT Addendum: 08/19/18 at 2157 by EDNA JUNIOR RT Amended: Links added.
[2018-08-19] MEDS: BASAGLAR SQ SCH (22:05)
[2018-08-20] MEDS: POLYVINYL ALCOHOL 15 ML BOTTLE EACHEYE SCH ×5 (00:38→23:59)
[2018-08-20] MEDS: IPRATROPIUM NEB FS 0.5 MG/2.5 ML AMPUL.NEB NEB SCH ×4 (01:48→19:46)
[2018-08-20] MEDS: ALBUTEROL FS 2.5 MG/3 ML VIAL.NEB NEB SCH ×4 (01:48→19:46)
[2018-08-20] MEDS: OMEPRAZOLE DR 20 MG GT SCH (05:37)
[2018-08-20] MEDS: BLOOD SUGAR DIAGNOSTIC 1 EACH STRIP IN SCH ×2 (06:36→18:35)
[2018-08-20] MEDS: INSULIN LISPRO/ASPART 100 UNIT/ML CARTRIDGE SQ PRN ×2 (06:38→18:36)
[2018-08-20 07:27] VITALS: BP 103/57
[2018-08-20] MEDS: LEVETIRACETAM SOL (5 ML) 100 MG/ML UDC GT SCH ×2 (09:00→21:00)
[2018-08-20] MEDS: ASCORBIC ACID 500 MG TABLET GT SCH ×2 (09:00→16:05)
[2018-08-20] MEDS: METFORMIN 500 MG TABLET PO SCH ×2 (09:00→16:05)
[2018-08-20] MEDS: FUNGI NAIL TP SCH ×2 (09:00→21:00)
[2018-08-20] MEDS: PROSTAT (PYXIS) 30 ML UDC GT SCH ×2 (09:00→16:05)
[2018-08-20] MEDS: HYDROGEN PEROXIDE 480 ML BOTTLE TP SCH ×2 (09:00→21:00)
[2018-08-20] MEDS: DOCUSATE SODIUM LIQ 100 MG/10 ML UDC GT SCH ×2 (09:00→16:05)
[2018-08-20] MEDS: BACLOFEN (10 MG) 10 MG TABLET GT SCH ×3 (09:00→16:05)
[2018-08-20] MEDS: HEPARIN SODIUM, PORCINE 5000 UNITS/1 ML VIAL SQ SCH ×2 (09:00→21:00)
[2018-08-20] MEDS: Z GUARD REMEDY 4 OZ OINT TP SCH ×2 (09:00→21:00)
[2018-08-20] MEDS: POTASSIUM CHLORIDE 20 MEQ/15 ML GT SCH (09:00)
[2018-08-20] MEDS: FERROUS SULFATE - FOR SA ONLY 330 MG/7.5 ML UDC GT SCH ×3 (09:00→16:05)
[2018-08-20 20:04] VITALS: BP 114/66
[2018-08-20] MEDS: MULTIVIT W/MINERALS 1 TAB TABLET GT SCH (21:00)
[2018-08-20] MEDS: SENNOSIDES 8.6 MG TABLET GT SCH (22:05)
[2018-08-20] MEDS: BASAGLAR SQ SCH (22:05)
[2018-08-21] MEDS: IPRATROPIUM NEB FS 0.5 MG/2.5 ML AMPUL.NEB NEB SCH ×3 (01:03→19:57)
[2018-08-21] MEDS: ALBUTEROL FS 2.5 MG/3 ML VIAL.NEB NEB SCH ×3 (01:03→19:57)
[2018-08-21] MEDS: OMEPRAZOLE DR 20 MG GT SCH (06:02)
[2018-08-21] MEDS: POLYVINYL ALCOHOL 15 ML BOTTLE EACHEYE SCH ×4 (06:02→23:00)
[2018-08-21] MEDS: BLOOD SUGAR DIAGNOSTIC 1 EACH STRIP IN SCH ×2 (06:02→18:41)
[2018-08-21 07:56] VITALS: BP 122/74
[2018-08-21] MEDS: METFORMIN 500 MG TABLET PO SCH ×2 (09:00→16:29)
[2018-08-21] MEDS: FERROUS SULFATE - FOR SA ONLY 330 MG/7.5 ML UDC GT SCH ×3 (09:00→16:29)
[2018-08-21] MEDS: PROSTAT (PYXIS) 30 ML UDC GT SCH ×2 (09:00→16:29)
[2018-08-21] MEDS: HYDROGEN PEROXIDE 480 ML BOTTLE TP SCH ×2 (09:00→21:28)
[2018-08-21] MEDS: POTASSIUM CHLORIDE 20 MEQ/15 ML GT SCH (09:00)
[2018-08-21] MEDS: FUNGI NAIL TP SCH ×2 (09:00→21:28)
[2018-08-21] MEDS: ASCORBIC ACID 500 MG TABLET GT SCH ×2 (09:00→16:29)
[2018-08-21] MEDS: BACLOFEN (10 MG) 10 MG TABLET GT SCH ×3 (09:00→16:29)
[2018-08-21] MEDS: Z GUARD REMEDY 4 OZ OINT TP SCH ×2 (09:00→21:28)
[2018-08-21] MEDS: LEVETIRACETAM SOL (5 ML) 100 MG/ML UDC GT SCH ×2 (09:00→21:28)
[2018-08-21] MEDS: HEPARIN SODIUM, PORCINE 5000 UNITS/1 ML VIAL SQ SCH ×2 (09:00→21:28)
[2018-08-21] MEDS: DOCUSATE SODIUM LIQ 100 MG/10 ML UDC GT SCH ×2 (09:00→16:29)
[2018-08-21] MEDS: INSULIN LISPRO/ASPART 100 UNIT/ML CARTRIDGE SQ PRN (18:41)
[2018-08-21 20:19] VITALS: BP 129/77
--- NOTE | 2018-08-21 20:52 | NUR ---
PT RCVD TRACH'D ON MECHANICAL VENT WITH CHARTED SETTINGS. HHN TX GIVEN AND NO ADVERSE REACTION NOTED. SX DONE. PT TRACH PATENT AND SECURE. CUFF CHECKED VIA MANAGER SURGERY. ALARMS ARE ON AND AUDIBLE. VENT PLUGGED INTO RED OUTLET. AMBU BAG AT BEDSIDE. WILL CONTINUE TO MONITOR. Addendum: 08/21/18 at 2052 by CHAGO HOLMAN RT Amended: Links added.
[2018-08-21] MEDS: SENNOSIDES 8.6 MG TABLET GT SCH (21:28)
[2018-08-21] MEDS: BASAGLAR SQ SCH (21:28)
[2018-08-21] MEDS: MULTIVIT W/MINERALS 1 TAB TABLET GT SCH (21:28)
[2018-08-22] MEDS: ALBUTEROL FS 2.5 MG/3 ML VIAL.NEB NEB SCH ×4 (01:02→19:19)
[2018-08-22] MEDS: IPRATROPIUM NEB FS 0.5 MG/2.5 ML AMPUL.NEB NEB SCH ×4 (01:02→19:19)
[2018-08-22] MEDS: POLYVINYL ALCOHOL 15 ML BOTTLE EACHEYE SCH ×3 (05:57→18:56)
[2018-08-22] MEDS: OMEPRAZOLE DR 20 MG GT SCH (05:58)
[2018-08-22] MEDS: BLOOD SUGAR DIAGNOSTIC 1 EACH STRIP IN SCH ×2 (06:33→18:56)
[2018-08-22 07:39] VITALS: BP 111/68
[2018-08-22 07:50] VITALS: BP 111/68
[2018-08-22] MEDS: POTASSIUM CHLORIDE 20 MEQ/15 ML GT SCH (09:00)
[2018-08-22] MEDS: FERROUS SULFATE - FOR SA ONLY 330 MG/7.5 ML UDC GT SCH ×3 (09:00→17:00)
[2018-08-22] MEDS: BACLOFEN (10 MG) 10 MG TABLET GT SCH ×3 (09:00→17:00)
[2018-08-22] MEDS: LEVETIRACETAM SOL (5 ML) 100 MG/ML UDC GT SCH ×2 (09:00→21:00)
[2018-08-22] MEDS: ASCORBIC ACID 500 MG TABLET GT SCH ×2 (09:00→17:00)
[2018-08-22] MEDS: Z GUARD REMEDY 4 OZ OINT TP SCH ×2 (09:00→21:00)
[2018-08-22] MEDS: HEPARIN SODIUM, PORCINE 5000 UNITS/1 ML VIAL SQ SCH ×2 (09:00→21:00)
[2018-08-22] MEDS: PROSTAT (PYXIS) 30 ML UDC GT SCH ×2 (09:00→17:00)
[2018-08-22] MEDS: FUNGI NAIL TP SCH ×2 (09:00→21:00)
[2018-08-22] MEDS: HYDROGEN PEROXIDE 480 ML BOTTLE TP SCH ×2 (09:00→21:00)
[2018-08-22] MEDS: METFORMIN 500 MG TABLET PO SCH ×2 (09:00→17:00)
[2018-08-22] MEDS: DOCUSATE SODIUM LIQ 100 MG/10 ML UDC GT SCH ×2 (09:00→17:00)
[2018-08-22] MEDS: INSULIN LISPRO/ASPART 100 UNIT/ML CARTRIDGE SQ PRN (18:57)
--- NOTE | 2018-08-22 19:21 | NUR ---
PATIENT RECEIVED TRACHED ON MECHANICAL VENTILATION. VENT PLUGGED INTO RED OUTLET. ALARMS ON AND AUDIBLE. CUFF CHECKED VIA SALES ASSISTANTS AND SALESPERSONS. TX GIVEN, NO ADVERSE REACTIONS NOTED. SX DONE, SMALL THICK WHITE SECRETIONS NOTED. PATIENT STABLE. Addendum: 08/22/18 at 1921 by RODERICK JONES RT Amended: Links added.
[2018-08-22 19:47] VITALS: BP 103/64
[2018-08-22] MEDS: MULTIVIT W/MINERALS 1 TAB TABLET GT SCH (21:00)
[2018-08-22] MEDS: BASAGLAR SQ SCH (22:49)
[2018-08-22] MEDS: SENNOSIDES 8.6 MG TABLET GT SCH (22:49)
[2018-08-23] MEDS: POLYVINYL ALCOHOL 15 ML BOTTLE EACHEYE SCH ×4 (00:56→18:29)
[2018-08-23] MEDS: ALBUTEROL FS 2.5 MG/3 ML VIAL.NEB NEB SCH ×4 (02:16→19:59)
[2018-08-23] MEDS: IPRATROPIUM NEB FS 0.5 MG/2.5 ML AMPUL.NEB NEB SCH ×4 (02:16→19:59)
[2018-08-23] MEDS: BLOOD SUGAR DIAGNOSTIC 1 EACH STRIP IN SCH ×2 (06:27→18:29)
[2018-08-23] MEDS: INSULIN LISPRO/ASPART 100 UNIT/ML CARTRIDGE SQ PRN ×2 (06:28→18:37)
[2018-08-23] MEDS: OMEPRAZOLE DR 20 MG GT SCH (06:29)
[2018-08-23 07:36] VITALS: BP 111/75
[2018-08-23] MEDS: PROSTAT (PYXIS) 30 ML UDC GT SCH ×2 (09:17→17:00)
[2018-08-23] MEDS: METFORMIN 500 MG TABLET PO SCH ×2 (09:17→17:00)
[2018-08-23] MEDS: DOCUSATE SODIUM LIQ 100 MG/10 ML UDC GT SCH ×2 (09:17→17:00)
[2018-08-23] MEDS: BACLOFEN (10 MG) 10 MG TABLET GT SCH ×3 (09:17→17:00)
[2018-08-23] MEDS: LEVETIRACETAM SOL (5 ML) 100 MG/ML UDC GT SCH ×2 (09:17→21:33)
[2018-08-23] MEDS: ASCORBIC ACID 500 MG TABLET GT SCH ×2 (09:17→17:00)
[2018-08-23] MEDS: FERROUS SULFATE - FOR SA ONLY 330 MG/7.5 ML UDC GT SCH ×3 (09:17→17:00)
[2018-08-23] MEDS: POTASSIUM CHLORIDE 20 MEQ/15 ML GT SCH (09:17)
[2018-08-23] MEDS: HEPARIN SODIUM, PORCINE 5000 UNITS/1 ML VIAL SQ SCH ×2 (09:18→21:33)
[2018-08-23] MEDS: Z GUARD REMEDY 4 OZ OINT TP SCH ×2 (09:20→21:34)
[2018-08-23] MEDS: HYDROGEN PEROXIDE 480 ML BOTTLE TP SCH ×2 (09:20→21:34)
[2018-08-23] MEDS: FUNGI NAIL TP SCH ×2 (09:20→21:34)
--- NOTE | 2018-08-23 09:33 | NUR ---
RT PATIENT REC'D TRACHED ON MECHANICAL VENTILATION. TRACH TUBE PATENT, SECURE , IN PLACE. AMBU BAG BY BEDSIDE. VENT PLUGGED INTO RED OUTLET. ALARMS ON AND AUDIBLE. CUFF CHECKED VIA FLOOR SERVICE WORKER SPRING. TX GIVEN, NO ADVERSE REACTIONS NOTED. SX DONE, MODERATE THICK WHITE SECRETIONS NOTED. WILL CONTINUE TO MONITOR. Addendum: 08/23/18 at 0935 by ARIS CRUZ RT Amended: Links added.
--- NOTE | 2018-08-23 19:59 | NUR ---
RT NOTE: RECEIVED TRACH PT ON [facility] VENT ON NOTED SETTINGS PER MD ORDERS. TRACH IS PATENT AND SECURED. ACCOUNTING CONSULTANT DONE. Q6 BREATHING TX GIVEN WITH NO ADVERSE REACTION NOTED. SX DONE PRN. VENT PLUGGED INTO RED OUTLET. ALARMS ON AND AUDIBLE. ERIC BAG @ BEDSIDE. NO RESP DISTRESS AT THIS TIME. WILL CONT TO MONITOR PT. Addendum: 08/24/18 at 0027 by SHE BYRNE RT Amended: Links added.
[2018-08-23 20:37] VITALS: BP 106/64
[2018-08-23] MEDS: MULTIVIT W/MINERALS 1 TAB TABLET GT SCH (21:33)
[2018-08-23] MEDS: BASAGLAR SQ SCH (21:34)
[2018-08-23] MEDS: SENNOSIDES 8.6 MG TABLET GT SCH (21:34)
[2018-08-24] MEDS: POLYVINYL ALCOHOL 15 ML BOTTLE EACHEYE SCH ×5 (00:32→23:28)
[2018-08-24] MEDS: ALBUTEROL FS 2.5 MG/3 ML VIAL.NEB NEB SCH ×5 (00:37→19:43)
[2018-08-24] MEDS: IPRATROPIUM NEB FS 0.5 MG/2.5 ML AMPUL.NEB NEB SCH ×5 (00:37→19:43)
[2018-08-24] MEDS: BLOOD SUGAR DIAGNOSTIC 1 EACH STRIP IN SCH ×2 (06:59→18:27)
[2018-08-24] MEDS: OMEPRAZOLE DR 20 MG GT SCH (06:59)
[2018-08-24] MEDS: INSULIN LISPRO/ASPART 100 UNIT/ML CARTRIDGE SQ PRN ×2 (07:01→18:28)
[2018-08-24 07:37] VITALS: BP 104/64
[2018-08-24] MEDS: ASCORBIC ACID 500 MG TABLET GT SCH ×2 (09:00→17:00)
[2018-08-24] MEDS: HYDROGEN PEROXIDE 480 ML BOTTLE TP SCH ×2 (09:00→21:46)
[2018-08-24] MEDS: LEVETIRACETAM SOL (5 ML) 100 MG/ML UDC GT SCH ×2 (09:00→21:45)
[2018-08-24] MEDS: FERROUS SULFATE - FOR SA ONLY 330 MG/7.5 ML UDC GT SCH ×3 (09:00→17:00)
[2018-08-24] MEDS: FUNGI NAIL TP SCH ×2 (09:00→21:46)
[2018-08-24] MEDS: PROSTAT (PYXIS) 30 ML UDC GT SCH ×2 (09:00→17:00)
[2018-08-24] MEDS: DOCUSATE SODIUM LIQ 100 MG/10 ML UDC GT SCH ×2 (09:00→17:00)
[2018-08-24] MEDS: POTASSIUM CHLORIDE 20 MEQ/15 ML GT SCH (09:00)
[2018-08-24] MEDS: HEPARIN SODIUM, PORCINE 5000 UNITS/1 ML VIAL SQ SCH ×2 (09:00→21:46)
[2018-08-24] MEDS: BACLOFEN (10 MG) 10 MG TABLET GT SCH ×3 (09:00→17:00)
[2018-08-24] MEDS: Z GUARD REMEDY 4 OZ OINT TP SCH ×2 (09:00→21:46)
[2018-08-24] MEDS: METFORMIN 500 MG TABLET PO SCH ×2 (09:00→17:00)
--- NOTE | 2018-08-24 15:00 | NUR ---
Seen and examined by Mya Rodgers NP NNO given at this time.
[2018-08-24] MEDS: GLUCERNA 1.2 1,000 ML BOTTLE GT PRN (18:50)
[2018-08-24 19:30] VITALS: BP 110/75
[2018-08-24] MEDS: MULTIVIT W/MINERALS 1 TAB TABLET GT SCH (21:45)
[2018-08-24] MEDS: SENNOSIDES 8.6 MG TABLET GT SCH (21:46)
[2018-08-24] MEDS: BASAGLAR SQ SCH (21:46)
[2018-08-25] MEDS: ALBUTEROL FS 2.5 MG/3 ML VIAL.NEB NEB SCH ×4 (00:38→19:51)
[2018-08-25] MEDS: IPRATROPIUM NEB FS 0.5 MG/2.5 ML AMPUL.NEB NEB SCH ×4 (00:38→19:51)
[2018-08-25] MEDS: OMEPRAZOLE DR 20 MG GT SCH (05:08)
[2018-08-25] MEDS: POLYVINYL ALCOHOL 15 ML BOTTLE EACHEYE SCH ×3 (05:08→17:13)
[2018-08-25] MEDS: BLOOD SUGAR DIAGNOSTIC 1 EACH STRIP IN SCH ×2 (06:06→18:16)
[2018-08-25] MEDS: INSULIN LISPRO/ASPART 100 UNIT/ML CARTRIDGE SQ PRN ×2 (06:07→18:16)
[2018-08-25 07:45] VITALS: BP 145/80
[2018-08-25] MEDS: LEVETIRACETAM SOL (5 ML) 100 MG/ML UDC GT SCH ×2 (08:26→20:07)
[2018-08-25] MEDS: BACLOFEN (10 MG) 10 MG TABLET GT SCH ×3 (08:26→17:13)
[2018-08-25] MEDS: POTASSIUM CHLORIDE 20 MEQ/15 ML GT SCH (08:26)
[2018-08-25] MEDS: FERROUS SULFATE - FOR SA ONLY 330 MG/7.5 ML UDC GT SCH ×3 (08:26→17:13)
[2018-08-25] MEDS: METFORMIN 500 MG TABLET PO SCH ×2 (08:26→17:13)
[2018-08-25] MEDS: PROSTAT (PYXIS) 30 ML UDC GT SCH ×2 (08:26→17:13)
[2018-08-25] MEDS: DOCUSATE SODIUM LIQ 100 MG/10 ML UDC GT SCH ×2 (08:26→17:13)
[2018-08-25] MEDS: ASCORBIC ACID 500 MG TABLET GT SCH ×2 (08:26→17:13)
[2018-08-25] MEDS: HEPARIN SODIUM, PORCINE 5000 UNITS/1 ML VIAL SQ SCH ×2 (08:27→20:08)
[2018-08-25] MEDS: HYDROGEN PEROXIDE 480 ML BOTTLE TP SCH ×2 (09:27→20:09)
[2018-08-25] MEDS: FUNGI NAIL TP SCH ×2 (09:27→20:09)
[2018-08-25] MEDS: Z GUARD REMEDY 4 OZ OINT TP SCH ×2 (09:27→20:10)
--- NOTE | 2018-08-25 16:37 | NUR ---
Seen and examined by Dr. Bullard, NNO given.
--- NOTE | 2018-08-25 16:38 | NUR ---
RT RECD PT TRACHED INTACT AND SECURED ON MECH VENT TUTU ALARMS ON AND AUDIBLE BAG AND MASK AT HOB, VENT PLUGGED IN RED OUTLET TX GIVEN TUTU WELL NO ADVERSE REACTION NOTED ATT. SX THICK YELLOW MOD SECRETIONS. NO RESP DISTRESS THROUGHOUT SHIFT WILL CONT TO MONITOR
--- NOTE | 2018-08-25 17:28 | NUR ---
Spoke with resident's sister Bere informing her room change. Patient will be moved to Room 275-2 on Tuesday, sister said it is OK.
[2018-08-25 19:37] VITALS: BP 111/74
[2018-08-25 20:00] VITALS: BP 111/74
[2018-08-25] MEDS: MULTIVIT W/MINERALS 1 TAB TABLET GT SCH (20:07)
--- NOTE | 2018-08-25 21:50 | NUR ---
RT NOTE PATIENT WAS RECEIVED ON CONTINUOUS VENT SUPPORT ON NOTED VENT SETTINGS. CRIMINAL INVESTIGATOR CUSTOMS DONE. AMBU BAG @ BEDSIDE. Q6 BREATHING TX GIVEN WITH NO ADVERSE REACTION NOTED. SUCTION DONE PRN.TRACH TUBE PATENT AND SECURED. ALARMS ON AND AUDIBLE. NO RESPIRATORY DISTRESS NOTED AT THIS TIME. WILL CONTINUE TO MONITOR PATIENT. Addendum: 08/25/18 at 2150 by EDNA JUNIOR RT Amended: Links added.
[2018-08-25] MEDS: BASAGLAR SQ SCH (22:02)
[2018-08-25] MEDS: SENNOSIDES 8.6 MG TABLET GT SCH (22:02)
[2018-08-26] MEDS: IPRATROPIUM NEB FS 0.5 MG/2.5 ML AMPUL.NEB NEB SCH ×4 (01:36→19:39)
[2018-08-26] MEDS: ALBUTEROL FS 2.5 MG/3 ML VIAL.NEB NEB SCH ×4 (01:36→19:39)
[2018-08-26] MEDS: OMEPRAZOLE DR 20 MG GT SCH (05:36)
[2018-08-26] MEDS: POLYVINYL ALCOHOL 15 ML BOTTLE EACHEYE SCH ×5 (05:36→23:15)
[2018-08-26] MEDS: INSULIN LISPRO/ASPART 100 UNIT/ML CARTRIDGE SQ PRN (06:44)
[2018-08-26] MEDS: BLOOD SUGAR DIAGNOSTIC 1 EACH STRIP IN SCH ×2 (06:44→18:58)
[2018-08-26 07:58] VITALS: BP 117/56
[2018-08-26] MEDS: DOCUSATE SODIUM LIQ 100 MG/10 ML UDC GT SCH ×2 (08:20→17:11)
[2018-08-26] MEDS: FERROUS SULFATE - FOR SA ONLY 330 MG/7.5 ML UDC GT SCH ×3 (08:22→17:12)
[2018-08-26] MEDS: LEVETIRACETAM SOL (5 ML) 100 MG/ML UDC GT SCH ×2 (08:22→20:36)
[2018-08-26] MEDS: BACLOFEN (10 MG) 10 MG TABLET GT SCH ×3 (08:23→17:13)
[2018-08-26] MEDS: PROSTAT (PYXIS) 30 ML UDC GT SCH ×2 (08:23→17:13)
[2018-08-26] MEDS: ASCORBIC ACID 500 MG TABLET GT SCH ×2 (08:24→17:13)
[2018-08-26] MEDS: METFORMIN 500 MG TABLET PO SCH ×2 (08:24→17:13)
[2018-08-26] MEDS: POTASSIUM CHLORIDE 20 MEQ/15 ML GT SCH (08:27)
[2018-08-26] MEDS: HYDROGEN PEROXIDE 480 ML BOTTLE TP SCH ×2 (08:37→20:37)
[2018-08-26] MEDS: HEPARIN SODIUM, PORCINE 5000 UNITS/1 ML VIAL SQ SCH ×2 (08:37→20:37)
[2018-08-26] MEDS: Z GUARD REMEDY 4 OZ OINT TP SCH ×2 (08:38→20:38)
[2018-08-26] MEDS: FUNGI NAIL TP SCH ×2 (08:38→20:37)
[2018-08-26] MEDS: GLUCERNA 1.2 1,000 ML BOTTLE GT PRN (17:16)
--- NOTE | 2018-08-26 20:04 | NUR ---
RT NOTE PT RECEIVED ON [facility] VENT ON THE FOLLOWING NOTED SETTINGS. PT HAS SMALL THIN WHITE SECRETIONS WHEN SUCTIONED. BREATHING TX GIVEN, NO ADVERSE REACTIONS NOTED AT THIS TIME. VENT IS PLUGGED INTO RED OUTLET. ALARMS ARE ON AND AUDIBLE. SPARE TRACH AND AMBU BAG ARE AT BEDSIDE. WILL CONT TO MONITOR PT. Addendum: 08/26/18 at 2004 by BARI GARZA RT Amended: Links added.
[2018-08-26 20:28] VITALS: BP 108/74
[2018-08-26] MEDS: MULTIVIT W/MINERALS 1 TAB TABLET GT SCH (20:36)
[2018-08-26] MEDS: BASAGLAR SQ SCH (21:44)
[2018-08-26] MEDS: SENNOSIDES 8.6 MG TABLET GT SCH (21:44)
[2018-08-27] MEDS: ALBUTEROL FS 2.5 MG/3 ML VIAL.NEB NEB SCH ×4 (01:05→20:03)
[2018-08-27] MEDS: IPRATROPIUM NEB FS 0.5 MG/2.5 ML AMPUL.NEB NEB SCH ×4 (01:05→20:03)
[2018-08-27] MEDS: OMEPRAZOLE DR 20 MG GT SCH (05:50)
[2018-08-27] MEDS: POLYVINYL ALCOHOL 15 ML BOTTLE EACHEYE SCH ×4 (05:50→23:22)
[2018-08-27] MEDS: GLUCERNA 1.2 1,000 ML BOTTLE GT PRN (05:56)
[2018-08-27] MEDS: INSULIN LISPRO/ASPART 100 UNIT/ML CARTRIDGE SQ PRN ×2 (06:55→18:41)
[2018-08-27] MEDS: BLOOD SUGAR DIAGNOSTIC 1 EACH STRIP IN SCH ×2 (06:55→18:40)
[2018-08-27 08:03] VITALS: BP 120/76
[2018-08-27] MEDS: LEVETIRACETAM SOL (5 ML) 100 MG/ML UDC GT SCH ×2 (08:31→20:56)
[2018-08-27] MEDS: FERROUS SULFATE - FOR SA ONLY 330 MG/7.5 ML UDC GT SCH ×3 (08:31→17:00)
[2018-08-27] MEDS: PROSTAT (PYXIS) 30 ML UDC GT SCH ×2 (08:31→17:00)
[2018-08-27] MEDS: ASCORBIC ACID 500 MG TABLET GT SCH ×2 (08:31→17:00)
[2018-08-27] MEDS: DOCUSATE SODIUM LIQ 100 MG/10 ML UDC GT SCH ×2 (08:31→17:00)
[2018-08-27] MEDS: POTASSIUM CHLORIDE 20 MEQ/15 ML GT SCH (08:31)
[2018-08-27] MEDS: METFORMIN 500 MG TABLET PO SCH ×2 (08:31→17:00)
[2018-08-27] MEDS: BACLOFEN (10 MG) 10 MG TABLET GT SCH ×3 (08:31→17:00)
[2018-08-27] MEDS: FUNGI NAIL TP SCH ×2 (08:32→21:00)
[2018-08-27] MEDS: HEPARIN SODIUM, PORCINE 5000 UNITS/1 ML VIAL SQ SCH ×2 (08:32→21:00)
[2018-08-27] MEDS: HYDROGEN PEROXIDE 480 ML BOTTLE TP SCH ×2 (08:32→21:00)
[2018-08-27] MEDS: Z GUARD REMEDY 4 OZ OINT TP SCH ×2 (08:32→21:00)
[2018-08-27 20:22] VITALS: BP 107/73
[2018-08-27] MEDS: MULTIVIT W/MINERALS 1 TAB TABLET GT SCH (20:59)
[2018-08-27] MEDS: SENNOSIDES 8.6 MG TABLET GT SCH (21:00)
[2018-08-27] MEDS: BASAGLAR SQ SCH (21:00)
[2018-08-28] MEDS: IPRATROPIUM NEB FS 0.5 MG/2.5 ML AMPUL.NEB NEB SCH ×4 (00:48→19:17)
[2018-08-28] MEDS: ALBUTEROL FS 2.5 MG/3 ML VIAL.NEB NEB SCH ×4 (00:48→19:17)
[2018-08-28] MEDS: OMEPRAZOLE DR 20 MG GT SCH (06:02)
[2018-08-28] MEDS: BLOOD SUGAR DIAGNOSTIC 1 EACH STRIP IN SCH ×2 (06:02→18:15)
[2018-08-28] MEDS: POLYVINYL ALCOHOL 15 ML BOTTLE EACHEYE SCH ×4 (06:02→23:45)
[2018-08-28] MEDS: INSULIN LISPRO/ASPART 100 UNIT/ML CARTRIDGE SQ PRN ×2 (06:03→18:16)
[2018-08-28 07:59] VITALS: BP 122/70
[2018-08-28] MEDS: DOCUSATE SODIUM LIQ 100 MG/10 ML UDC GT SCH ×2 (09:58→17:58)
[2018-08-28] MEDS: POTASSIUM CHLORIDE 20 MEQ/15 ML GT SCH (09:59)
[2018-08-28] MEDS: HYDROGEN PEROXIDE 480 ML BOTTLE TP SCH ×2 (09:59→20:59)
[2018-08-28] MEDS: FUNGI NAIL TP SCH ×2 (09:59→20:59)
[2018-08-28] MEDS: ASCORBIC ACID 500 MG TABLET GT SCH ×2 (09:59→17:58)
[2018-08-28] MEDS: BACLOFEN (10 MG) 10 MG TABLET GT SCH ×3 (09:59→17:58)
[2018-08-28] MEDS: METFORMIN 500 MG TABLET PO SCH ×2 (09:59→17:58)
[2018-08-28] MEDS: LEVETIRACETAM SOL (5 ML) 100 MG/ML UDC GT SCH ×2 (09:59→20:56)
[2018-08-28] MEDS: PROSTAT (PYXIS) 30 ML UDC GT SCH ×2 (09:59→17:58)
[2018-08-28] MEDS: Z GUARD REMEDY 4 OZ OINT TP SCH ×2 (09:59→20:59)
[2018-08-28] MEDS: FERROUS SULFATE - FOR SA ONLY 330 MG/7.5 ML UDC GT SCH ×3 (09:59→17:58)
[2018-08-28] MEDS: HEPARIN SODIUM, PORCINE 5000 UNITS/1 ML VIAL SQ SCH ×2 (10:00→20:58)
--- NOTE | 2018-08-28 14:24 | NUR ---
Pt. was seeing by the podiatry Dr. Neal on 08/25 and an appointment was made for 09/15. Dr. Jackson (dentist) will be seeing pt. on September 25.
[2018-08-28 20:06] VITALS: BP 116/77
[2018-08-28] MEDS: MULTIVIT W/MINERALS 1 TAB TABLET GT SCH (20:56)
[2018-08-28] MEDS: BASAGLAR SQ SCH (21:02)
[2018-08-28] MEDS: SENNOSIDES 8.6 MG TABLET GT SCH (21:02)
[2018-08-29] MEDS: IPRATROPIUM NEB FS 0.5 MG/2.5 ML AMPUL.NEB NEB SCH ×4 (01:49→19:02)
[2018-08-29] MEDS: ALBUTEROL FS 2.5 MG/3 ML VIAL.NEB NEB SCH ×4 (01:49→19:02)
[2018-08-29] MEDS: BLOOD SUGAR DIAGNOSTIC 1 EACH STRIP IN SCH ×2 (06:02→18:38)
[2018-08-29] MEDS: POLYVINYL ALCOHOL 15 ML BOTTLE EACHEYE SCH ×4 (06:02→23:18)
[2018-08-29] MEDS: OMEPRAZOLE DR 20 MG GT SCH (06:02)
[2018-08-29] MEDS: INSULIN LISPRO/ASPART 100 UNIT/ML CARTRIDGE SQ PRN (06:03)
[2018-08-29 07:40] VITALS: BP 103/69
[2018-08-29] MEDS: POTASSIUM CHLORIDE 20 MEQ/15 ML GT SCH (09:42)
[2018-08-29] MEDS: LEVETIRACETAM SOL (5 ML) 100 MG/ML UDC GT SCH ×2 (09:42→21:14)
[2018-08-29] MEDS: PROSTAT (PYXIS) 30 ML UDC GT SCH ×2 (09:42→16:55)
[2018-08-29] MEDS: HEPARIN SODIUM, PORCINE 5000 UNITS/1 ML VIAL SQ SCH ×2 (09:42→21:14)
[2018-08-29] MEDS: METFORMIN 500 MG TABLET PO SCH ×2 (09:42→16:55)
[2018-08-29] MEDS: FERROUS SULFATE - FOR SA ONLY 330 MG/7.5 ML UDC GT SCH ×3 (09:42→16:55)
[2018-08-29] MEDS: ASCORBIC ACID 500 MG TABLET GT SCH ×2 (09:42→16:55)
[2018-08-29] MEDS: HYDROGEN PEROXIDE 480 ML BOTTLE TP SCH ×2 (09:42→21:15)
[2018-08-29] MEDS: FUNGI NAIL TP SCH ×2 (09:42→21:15)
[2018-08-29] MEDS: Z GUARD REMEDY 4 OZ OINT TP SCH ×2 (09:42→21:15)
[2018-08-29] MEDS: BACLOFEN (10 MG) 10 MG TABLET GT SCH ×3 (09:42→16:55)
[2018-08-29] MEDS: DOCUSATE SODIUM LIQ 100 MG/10 ML UDC GT SCH ×2 (09:42→16:55)
[2018-08-29 20:04] VITALS: BP 110/78
[2018-08-29] MEDS: MULTIVIT W/MINERALS 1 TAB TABLET GT SCH (21:14)
[2018-08-29] MEDS: SENNOSIDES 8.6 MG TABLET GT SCH (21:15)
[2018-08-29] MEDS: BASAGLAR SQ SCH (21:15)
[2018-08-30] MEDS: IPRATROPIUM NEB FS 0.5 MG/2.5 ML AMPUL.NEB NEB SCH ×4 (01:40→20:05)
[2018-08-30] MEDS: ALBUTEROL FS 2.5 MG/3 ML VIAL.NEB NEB SCH ×4 (01:40→20:05)
[2018-08-30] MEDS: BLOOD SUGAR DIAGNOSTIC 1 EACH STRIP IN SCH ×2 (06:13→18:48)
[2018-08-30] MEDS: POLYVINYL ALCOHOL 15 ML BOTTLE EACHEYE SCH ×3 (06:13→18:47)
[2018-08-30] MEDS: OMEPRAZOLE DR 20 MG GT SCH (06:13)
[2018-08-30] MEDS: INSULIN LISPRO/ASPART 100 UNIT/ML CARTRIDGE SQ PRN ×2 (06:14→18:48)
[2018-08-30 08:00] VITALS: BP 104/74
[2018-08-30] MEDS: Z GUARD REMEDY 4 OZ OINT TP SCH ×2 (09:00→21:30)
[2018-08-30] MEDS: FUNGI NAIL TP SCH ×2 (09:00→21:30)
[2018-08-30] MEDS: HYDROGEN PEROXIDE 480 ML BOTTLE TP SCH ×2 (09:00→21:30)
[2018-08-30] MEDS: ASCORBIC ACID 500 MG TABLET GT SCH ×2 (09:19→16:17)
[2018-08-30] MEDS: FERROUS SULFATE - FOR SA ONLY 330 MG/7.5 ML UDC GT SCH ×3 (09:19→16:17)
[2018-08-30] MEDS: DOCUSATE SODIUM LIQ 100 MG/10 ML UDC GT SCH ×2 (09:19→16:17)
[2018-08-30] MEDS: LEVETIRACETAM SOL (5 ML) 100 MG/ML UDC GT SCH ×2 (09:19→21:29)
[2018-08-30] MEDS: BACLOFEN (10 MG) 10 MG TABLET GT SCH ×3 (09:19→16:17)
[2018-08-30] MEDS: POTASSIUM CHLORIDE 20 MEQ/15 ML GT SCH (09:19)
[2018-08-30] MEDS: PROSTAT (PYXIS) 30 ML UDC GT SCH ×2 (09:19→16:17)
[2018-08-30] MEDS: METFORMIN 500 MG TABLET PO SCH ×2 (09:20→16:17)
[2018-08-30] MEDS: HEPARIN SODIUM, PORCINE 5000 UNITS/1 ML VIAL SQ SCH ×2 (09:20→21:29)
--- NOTE | 2018-08-30 09:23 | NUR ---
RT RECEIVED PT ON MECH VENT WITH NOTED SETTINGS. CUSTOMER SERVICE ADVISOR DONE AND TRACH IS SECURE. VENT ALARMS CHECKED AND AUDIBLE. VENT PLUGGED IN RED OUTLET. AMBU BAG AND SPARE TRACH NOTED HOB. B/S JOSSE RHONCHI. SX WITH MOD THK WHITE/ PALE YELLOW SECRETIONS. BREATHING TX GIVEN AND NO ADV REACTION.PT TOLERATING SETTINGS WELL, NO SOB OR RESP DISTRESS NOTED. WILL CONTINUE TO MONITOR T/O SHIFT.
--- NOTE | 2018-08-30 14:00 | NUR ---
Seen and examined by Mya Rodgers NP NNO given.
[2018-08-30 20:34] VITALS: BP 115/79
--- NOTE | 2018-08-30 20:55 | NUR ---
RT Pt rec'd trached on the vent with noted settings. Pt is awake and alert. Vent alarms are set and audible with BVM by bedside. CLAM DIGGER cuff pressure noted. Vent is plugged into red outlet. HHN tx given with no adverse reactions. Sx'd small thick pale yellow secretions. No respiratory distress noted at this time, will continue to monitor. Addendum: 08/30/18 at 2054 by ARIS CRUZ RT Amended: Links added.
[2018-08-30] MEDS: MULTIVIT W/MINERALS 1 TAB TABLET GT SCH (21:29)
[2018-08-30] MEDS: SENNOSIDES 8.6 MG TABLET GT SCH (21:30)
[2018-08-30] MEDS: BASAGLAR SQ SCH (22:24)
[2018-08-31] MEDS: POLYVINYL ALCOHOL 15 ML BOTTLE EACHEYE SCH ×5 (00:08→23:43)
[2018-08-31] MEDS: IPRATROPIUM NEB FS 0.5 MG/2.5 ML AMPUL.NEB NEB SCH ×5 (01:46→19:09)
[2018-08-31] MEDS: ALBUTEROL FS 2.5 MG/3 ML VIAL.NEB NEB SCH ×5 (01:46→19:09)
[2018-08-31] MEDS: OMEPRAZOLE DR 20 MG GT SCH (05:56)
[2018-08-31] MEDS: GLUCERNA 1.2 1,000 ML BOTTLE GT PRN (05:56)
[2018-08-31] MEDS: BLOOD SUGAR DIAGNOSTIC 1 EACH STRIP IN SCH ×2 (06:42→18:45)
[2018-08-31] MEDS: INSULIN LISPRO/ASPART 100 UNIT/ML CARTRIDGE SQ PRN (06:43)
[2018-08-31 07:46] VITALS: BP 102/66
[2018-08-31] MEDS: METFORMIN 500 MG TABLET PO SCH ×2 (08:53→17:20)
[2018-08-31] MEDS: PROSTAT (PYXIS) 30 ML UDC GT SCH ×2 (08:53→17:27)
[2018-08-31] MEDS: POTASSIUM CHLORIDE 20 MEQ/15 ML GT SCH (08:53)
[2018-08-31] MEDS: FERROUS SULFATE - FOR SA ONLY 330 MG/7.5 ML UDC GT SCH ×3 (08:53→17:20)
[2018-08-31] MEDS: BACLOFEN (10 MG) 10 MG TABLET GT SCH ×3 (08:53→17:20)
[2018-08-31] MEDS: DOCUSATE SODIUM LIQ 100 MG/10 ML UDC GT SCH ×2 (08:53→17:20)
[2018-08-31] MEDS: LEVETIRACETAM SOL (5 ML) 100 MG/ML UDC GT SCH ×2 (08:53→21:02)
[2018-08-31] MEDS: HYDROGEN PEROXIDE 480 ML BOTTLE TP SCH ×2 (08:53→21:03)
[2018-08-31] MEDS: ASCORBIC ACID 500 MG TABLET GT SCH ×2 (08:53→17:20)
[2018-08-31] MEDS: FUNGI NAIL TP SCH ×2 (08:54→21:03)
[2018-08-31] MEDS: Z GUARD REMEDY 4 OZ OINT TP SCH ×2 (08:54→21:03)
[2018-08-31] MEDS: HEPARIN SODIUM, PORCINE 5000 UNITS/1 ML VIAL SQ SCH ×2 (08:54→21:02)
--- NOTE | 2018-08-31 17:16 | NUR ---
RT NOTE: PATIENT RECEIVED TRACHED ON MECHANICAL VENT. ALARMS VERIFIED AND AUDIBLE. SUCTIONED AND LAVAGED SMALL-MODERATE AMOUNT OF THICK FISHMAN SECRETIONS. AMBU BAG AND NEW TRACH AT [facility].
[2018-08-31 20:17] VITALS: BP 123/70
[2018-08-31] MEDS: MULTIVIT W/MINERALS 1 TAB TABLET GT SCH (21:02)
[2018-08-31] MEDS: SENNOSIDES 8.6 MG TABLET GT SCH (21:03)
[2018-08-31] MEDS: BASAGLAR SQ SCH (21:03)
[2018-09-01] MEDS: ALBUTEROL FS 2.5 MG/3 ML VIAL.NEB NEB SCH ×4 (02:02→19:55)
[2018-09-01] MEDS: IPRATROPIUM NEB FS 0.5 MG/2.5 ML AMPUL.NEB NEB SCH ×4 (02:02→19:55)
--- NOTE | 2018-09-01 04:26 | NUR ---
RT pt remains on [facility] vent t/o the night. No resp distress noted. svn given inline. trach secure and patent. Addendum: 09/01/18 at 0426 by RAHEEM SOLOMON RT Amended: Links added.
[2018-09-01] MEDS: POLYVINYL ALCOHOL 15 ML BOTTLE EACHEYE SCH ×3 (05:08→17:06)
[2018-09-01] MEDS: OMEPRAZOLE DR 20 MG GT SCH (05:08)
[2018-09-01] MEDS: BLOOD SUGAR DIAGNOSTIC 1 EACH STRIP IN SCH ×2 (06:26→18:35)
[2018-09-01] MEDS: INSULIN LISPRO/ASPART 100 UNIT/ML CARTRIDGE SQ PRN (06:26)
[2018-09-01 07:54] VITALS: BP 106/70
[2018-09-01] MEDS: ASCORBIC ACID 500 MG TABLET GT SCH ×2 (09:06→17:06)
[2018-09-01] MEDS: BACLOFEN (10 MG) 10 MG TABLET GT SCH ×3 (09:06→17:06)
[2018-09-01] MEDS: HEPARIN SODIUM, PORCINE 5000 UNITS/1 ML VIAL SQ SCH ×2 (09:06→20:28)
[2018-09-01] MEDS: LEVETIRACETAM SOL (5 ML) 100 MG/ML UDC GT SCH ×2 (09:06→20:27)
[2018-09-01] MEDS: POTASSIUM CHLORIDE 20 MEQ/15 ML GT SCH (09:06)
[2018-09-01] MEDS: HYDROGEN PEROXIDE 480 ML BOTTLE TP SCH ×2 (09:06→20:28)
[2018-09-01] MEDS: DOCUSATE SODIUM LIQ 100 MG/10 ML UDC GT SCH ×2 (09:06→17:06)
[2018-09-01] MEDS: FUNGI NAIL TP SCH ×2 (09:06→20:28)
[2018-09-01] MEDS: FERROUS SULFATE - FOR SA ONLY 330 MG/7.5 ML UDC GT SCH ×3 (09:06→17:06)
[2018-09-01] MEDS: METFORMIN 500 MG TABLET PO SCH ×2 (09:06→17:06)
[2018-09-01] MEDS: PROSTAT (PYXIS) 30 ML UDC GT SCH ×2 (09:06→17:06)
[2018-09-01] MEDS: Z GUARD REMEDY 4 OZ OINT TP SCH ×2 (09:06→20:28)
--- NOTE | 2018-09-01 11:37 | NUR ---
ERVIN informed caregiver that resident's new room is number 275 bed 2. ERVIN also informed that next IDT mtg will be held on 09/08 at 12:30 PM
--- NOTE | 2018-09-01 11:38 | NUR ---
SW informed caregiver that resident has a dentist appt on September 25.
[2018-09-01] MEDS: GLUCERNA 1.2 1,000 ML BOTTLE GT PRN (17:07)
[2018-09-01 20:02] VITALS: BP 129/74
[2018-09-01] MEDS: MULTIVIT W/MINERALS 1 TAB TABLET GT SCH (20:27)
[2018-09-01] MEDS: SENNOSIDES 8.6 MG TABLET GT SCH (22:12)
[2018-09-01] MEDS: BASAGLAR SQ SCH (22:12)
[2018-09-02] MEDS: POLYVINYL ALCOHOL 15 ML BOTTLE EACHEYE SCH ×5 (00:10→23:35)
[2018-09-02] MEDS: ALBUTEROL FS 2.5 MG/3 ML VIAL.NEB NEB SCH ×4 (01:29→19:23)
[2018-09-02] MEDS: IPRATROPIUM NEB FS 0.5 MG/2.5 ML AMPUL.NEB NEB SCH ×4 (01:29→19:23)
[2018-09-02] MEDS: OMEPRAZOLE DR 20 MG GT SCH (05:45)
[2018-09-02] MEDS: BLOOD SUGAR DIAGNOSTIC 1 EACH STRIP IN SCH ×2 (06:50→18:32)
[2018-09-02] MEDS: INSULIN LISPRO/ASPART 100 UNIT/ML CARTRIDGE SQ PRN (06:51)
[2018-09-02 08:00] VITALS: BP 96/69
[2018-09-02] MEDS: BACLOFEN (10 MG) 10 MG TABLET GT SCH ×3 (08:57→16:35)
[2018-09-02] MEDS: LEVETIRACETAM SOL (5 ML) 100 MG/ML UDC GT SCH ×2 (08:57→21:14)
[2018-09-02] MEDS: DOCUSATE SODIUM LIQ 100 MG/10 ML UDC GT SCH ×2 (08:57→16:35)
[2018-09-02] MEDS: FERROUS SULFATE - FOR SA ONLY 330 MG/7.5 ML UDC GT SCH ×3 (08:57→16:35)
[2018-09-02] MEDS: Z GUARD REMEDY 4 OZ OINT TP SCH ×2 (08:58→21:16)
[2018-09-02] MEDS: ASCORBIC ACID 500 MG TABLET GT SCH ×2 (08:58→16:35)
[2018-09-02] MEDS: FUNGI NAIL TP SCH ×2 (08:58→21:16)
[2018-09-02] MEDS: HYDROGEN PEROXIDE 480 ML BOTTLE TP SCH ×2 (08:58→21:16)
[2018-09-02] MEDS: POTASSIUM CHLORIDE 20 MEQ/15 ML GT SCH (08:58)
[2018-09-02] MEDS: HEPARIN SODIUM, PORCINE 5000 UNITS/1 ML VIAL SQ SCH ×2 (08:58→21:16)
[2018-09-02] MEDS: METFORMIN 500 MG TABLET PO SCH ×2 (08:58→16:35)
[2018-09-02] MEDS: PROSTAT (PYXIS) 30 ML UDC GT SCH ×2 (08:58→16:35)
--- NOTE | 2018-09-02 10:26 | NUR ---
Seen and examined by Dr. Dsouza, NNO given at this time.
[2018-09-02] MEDS: GLUCERNA 1.2 1,000 ML BOTTLE GT PRN (16:00)
--- NOTE | 2018-09-02 16:34 | NUR ---
RT NOTE: PATIENT RECEIVED TRACHED ON MECHANICAL VENT. ALARMS VERIFIED AND AUDIBLE. SUCTIONED AND LAVAGED MODERATE-LARGE AMOUNT OF THICK FISHMAN SECRETIONS. AMBU BAG AND NEW TRACH AT [facility].
[2018-09-02 20:39] VITALS: BP 138/69
[2018-09-02] MEDS: MULTIVIT W/MINERALS 1 TAB TABLET GT SCH (21:14)
[2018-09-02] MEDS: SENNOSIDES 8.6 MG TABLET GT SCH (21:16)
[2018-09-02] MEDS: BASAGLAR SQ SCH (21:25)
[2018-09-03] MEDS: IPRATROPIUM NEB FS 0.5 MG/2.5 ML AMPUL.NEB NEB SCH ×4 (01:58→19:16)
[2018-09-03] MEDS: ALBUTEROL FS 2.5 MG/3 ML VIAL.NEB NEB SCH ×4 (01:59→19:16)
[2018-09-03] MEDS: POLYVINYL ALCOHOL 15 ML BOTTLE EACHEYE SCH ×3 (05:12→17:44)
[2018-09-03] MEDS: OMEPRAZOLE DR 20 MG GT SCH (05:12)
[2018-09-03] MEDS: BLOOD SUGAR DIAGNOSTIC 1 EACH STRIP IN SCH ×2 (06:29→18:35)
[2018-09-03 07:21] VITALS: BP 104/75
[2018-09-03] MEDS: METFORMIN 500 MG TABLET PO SCH ×2 (08:34→17:44)
[2018-09-03] MEDS: BACLOFEN (10 MG) 10 MG TABLET GT SCH ×3 (08:34→17:44)
[2018-09-03] MEDS: POTASSIUM CHLORIDE 20 MEQ/15 ML GT SCH (08:34)
[2018-09-03] MEDS: PROSTAT (PYXIS) 30 ML UDC GT SCH ×2 (08:34→17:44)
[2018-09-03] MEDS: FERROUS SULFATE - FOR SA ONLY 330 MG/7.5 ML UDC GT SCH ×3 (08:34→17:44)
[2018-09-03] MEDS: LEVETIRACETAM SOL (5 ML) 100 MG/ML UDC GT SCH ×2 (08:34→20:17)
[2018-09-03] MEDS: ASCORBIC ACID 500 MG TABLET GT SCH ×2 (08:34→17:44)
[2018-09-03] MEDS: DOCUSATE SODIUM LIQ 100 MG/10 ML UDC GT SCH ×2 (08:34→17:44)
[2018-09-03] MEDS: HEPARIN SODIUM, PORCINE 5000 UNITS/1 ML VIAL SQ SCH ×2 (08:36→20:19)
[2018-09-03] MEDS: FUNGI NAIL TP SCH ×2 (08:36→20:19)
[2018-09-03] MEDS: Z GUARD REMEDY 4 OZ OINT TP SCH ×2 (08:36→20:20)
[2018-09-03] MEDS: HYDROGEN PEROXIDE 480 ML BOTTLE TP SCH ×2 (08:36→20:19)
[2018-09-03] MEDS: GLUCERNA 1.2 1,000 ML BOTTLE GT PRN (18:35)
[2018-09-03] MEDS: INSULIN LISPRO/ASPART 100 UNIT/ML CARTRIDGE SQ PRN (18:36)
--- NOTE | 2018-09-03 20:09 | NUR ---
PATIENT RECEIVED ON MECHANICAL VENTILATION WITH SETTINGS OF AC 12, 500 VT, 30%, +0. SUCTIONED FOR MINIMAL, THIN, YELLOW SECRETIONS. GIVEN IN-LINE TREATMENTS WITH NO ADVERSE REACTIONS. AMBU BAG AT BEDSIDE. VENT ALARM AUDIBLE AND VISIBLE. VENT PLUGGED INTO RED OUTLET. Addendum: 09/03/18 at 2010 by WHITNEY KLEIN RT Amended: Links added.
[2018-09-03 20:11] VITALS: BP 108/69
[2018-09-03] MEDS: MULTIVIT W/MINERALS 1 TAB TABLET GT SCH (20:17)
[2018-09-03] MEDS: SENNOSIDES 8.6 MG TABLET GT SCH (21:30)
[2018-09-03] MEDS: BASAGLAR SQ SCH (21:31)
[2018-09-04] MEDS: POLYVINYL ALCOHOL 15 ML BOTTLE EACHEYE SCH ×4 (00:46→17:30)
[2018-09-04] MEDS: ALBUTEROL FS 2.5 MG/3 ML VIAL.NEB NEB SCH ×4 (01:44→19:23)
[2018-09-04] MEDS: IPRATROPIUM NEB FS 0.5 MG/2.5 ML AMPUL.NEB NEB SCH ×4 (01:44→19:23)
[2018-09-04] MEDS: OMEPRAZOLE DR 20 MG GT SCH (05:13)
[2018-09-04] MEDS: BLOOD SUGAR DIAGNOSTIC 1 EACH STRIP IN SCH ×2 (06:27→18:42)
[2018-09-04] MEDS: INSULIN LISPRO/ASPART 100 UNIT/ML CARTRIDGE SQ PRN ×2 (06:28→18:47)
[2018-09-04 07:56] VITALS: BP 139/80
[2018-09-04] MEDS: PROSTAT (PYXIS) 30 ML UDC GT SCH ×2 (09:32→17:30)
[2018-09-04] MEDS: METFORMIN 500 MG TABLET PO SCH ×2 (09:32→17:00)
[2018-09-04] MEDS: LEVETIRACETAM SOL (5 ML) 100 MG/ML UDC GT SCH ×2 (09:32→20:11)
[2018-09-04] MEDS: FERROUS SULFATE - FOR SA ONLY 330 MG/7.5 ML UDC GT SCH ×3 (09:32→17:30)
[2018-09-04] MEDS: BACLOFEN (10 MG) 10 MG TABLET GT SCH ×3 (09:32→17:30)
[2018-09-04] MEDS: DOCUSATE SODIUM LIQ 100 MG/10 ML UDC GT SCH ×2 (09:32→17:30)
[2018-09-04] MEDS: POTASSIUM CHLORIDE 20 MEQ/15 ML GT SCH (09:32)
[2018-09-04] MEDS: ASCORBIC ACID 500 MG TABLET GT SCH ×2 (09:32→17:30)
[2018-09-04] MEDS: Z GUARD REMEDY 4 OZ OINT TP SCH ×2 (09:35→20:15)
[2018-09-04] MEDS: HEPARIN SODIUM, PORCINE 5000 UNITS/1 ML VIAL SQ SCH ×2 (09:35→20:13)
[2018-09-04] MEDS: HYDROGEN PEROXIDE 480 ML BOTTLE TP SCH ×2 (09:35→20:14)
[2018-09-04] MEDS: FUNGI NAIL TP SCH ×2 (09:43→20:14)
--- NOTE | 2018-09-04 14:15 | NUR ---
RT MONTHLY TRACH CHANGE DONE WITH NO COMPLICATIONS. TRACH CHANGED WITH NEW SHILEY 6 CUFFED TRACH. COLD MOLDING PRESS OPERATOR CUFF PRESSURE NOTED. PT PLACED BACK ON VENT WITH NOTED SETTINGS. EQUAL BILATERAL BREATHE SOUNDS AND CHEST RISE NOTED. MINIMAL BLEEDING WITH NO REDNESS AT TRACH SITE. NO RESPIRATORY DISTRESS NOTED AT THIS TIME. Addendum: 09/04/18 at 1612 by SAE ERNST RT Amended: Links added.
[2018-09-04] MEDS: GLUCERNA 1.2 1,000 ML BOTTLE GT PRN (18:42)
[2018-09-04 19:39] VITALS: BP 113/69
[2018-09-04] MEDS: MULTIVIT W/MINERALS 1 TAB TABLET GT SCH (20:11)
[2018-09-04] MEDS: BASAGLAR SQ SCH (21:31)
[2018-09-04] MEDS: SENNOSIDES 8.6 MG TABLET GT SCH (21:31)
[2018-09-05] MEDS: POLYVINYL ALCOHOL 15 ML BOTTLE EACHEYE SCH ×4 (00:45→17:17)
[2018-09-05] MEDS: IPRATROPIUM NEB FS 0.5 MG/2.5 ML AMPUL.NEB NEB SCH ×4 (01:33→19:24)
[2018-09-05] MEDS: ALBUTEROL FS 2.5 MG/3 ML VIAL.NEB NEB SCH ×4 (01:33→19:24)
[2018-09-05] MEDS: OMEPRAZOLE DR 20 MG GT SCH (05:19)
[2018-09-05] MEDS: BLOOD SUGAR DIAGNOSTIC 1 EACH STRIP IN SCH ×2 (06:32→18:15)
[2018-09-05] MEDS: INSULIN LISPRO/ASPART 100 UNIT/ML CARTRIDGE SQ PRN ×2 (06:34→18:16)
--- NOTE | 2018-09-05 07:39 | NUR ---
RT PT RECEIVED WITH A SHILEY 6 TRACH ON THE VENT WITH NOTED SETTINGS. PT IS AWAKE BUT DOES NOT FOLLOW COMMANDS. VENT ALARMS ARE SET AND AUDIBLE WITH BVM BY BEDSIDE. SALES AND SERVICE CONSULTANT CUFF PRESSURE NOTED. VENT IS PLUGGED INTO RED OUTLET. PT SX'D MODERATE THICK PALE YELLOW SECRETIONS. HHN TX GIVEN WITH NO ADVERSE REACTIONS. NO RESPIRATORY DISTRESS NOTED AT THIS TIME, WILL CONTINUE TO MONITOR. Addendum: 09/05/18 at 0937 by SAE ERNST RT Amended: Links added.
[2018-09-05 07:54] VITALS: BP 124/72
--- NOTE | 2018-09-05 09:00 | NUR ---
Seen and examined by Dr. Alvarez, no new order given.
[2018-09-05] MEDS: BACLOFEN (10 MG) 10 MG TABLET GT SCH ×3 (09:48→17:17)
[2018-09-05] MEDS: POTASSIUM CHLORIDE 20 MEQ/15 ML GT SCH (09:48)
[2018-09-05] MEDS: PROSTAT (PYXIS) 30 ML UDC GT SCH ×2 (09:48→17:17)
[2018-09-05] MEDS: FERROUS SULFATE - FOR SA ONLY 330 MG/7.5 ML UDC GT SCH ×3 (09:48→17:17)
[2018-09-05] MEDS: METFORMIN 500 MG TABLET PO SCH ×2 (09:48→17:17)
[2018-09-05] MEDS: ASCORBIC ACID 500 MG TABLET GT SCH ×2 (09:48→17:17)
[2018-09-05] MEDS: LEVETIRACETAM SOL (5 ML) 100 MG/ML UDC GT SCH ×2 (09:48→20:21)
[2018-09-05] MEDS: DOCUSATE SODIUM LIQ 100 MG/10 ML UDC GT SCH ×2 (09:48→17:17)
[2018-09-05] MEDS: FUNGI NAIL TP SCH ×2 (09:49→20:25)
[2018-09-05] MEDS: Z GUARD REMEDY 4 OZ OINT TP SCH ×2 (09:49→20:25)
[2018-09-05] MEDS: HEPARIN SODIUM, PORCINE 5000 UNITS/1 ML VIAL SQ SCH ×2 (09:49→20:25)
[2018-09-05] MEDS: HYDROGEN PEROXIDE 480 ML BOTTLE TP SCH ×2 (09:49→20:25)
[2018-09-05] MEDS: GLUCERNA 1.2 1,000 ML BOTTLE GT PRN (17:27)
[2018-09-05] MEDS: MULTIVIT W/MINERALS 1 TAB TABLET GT SCH (20:21)
[2018-09-05 20:34] VITALS: BP 106/74
[2018-09-05] MEDS: BASAGLAR SQ SCH (21:38)
[2018-09-05] MEDS: SENNOSIDES 8.6 MG TABLET GT SCH (21:38)
[2018-09-06] MEDS: POLYVINYL ALCOHOL 15 ML BOTTLE EACHEYE SCH ×4 (00:30→18:31)
[2018-09-06] MEDS: ALBUTEROL FS 2.5 MG/3 ML VIAL.NEB NEB SCH ×4 (01:14→19:48)
[2018-09-06] MEDS: IPRATROPIUM NEB FS 0.5 MG/2.5 ML AMPUL.NEB NEB SCH ×4 (01:14→19:48)
[2018-09-06] MEDS: OMEPRAZOLE DR 20 MG GT SCH (05:20)
[2018-09-06] MEDS: BLOOD SUGAR DIAGNOSTIC 1 EACH STRIP IN SCH ×2 (06:42→18:31)
[2018-09-06] MEDS: INSULIN LISPRO/ASPART 100 UNIT/ML CARTRIDGE SQ PRN ×2 (06:43→18:31)
[2018-09-06 07:46] VITALS: BP 101/69
[2018-09-06] MEDS: POTASSIUM CHLORIDE 20 MEQ/15 ML GT SCH (08:40)
[2018-09-06] MEDS: DOCUSATE SODIUM LIQ 100 MG/10 ML UDC GT SCH ×2 (08:40→16:18)
[2018-09-06] MEDS: FERROUS SULFATE - FOR SA ONLY 330 MG/7.5 ML UDC GT SCH ×3 (08:40→16:18)
[2018-09-06] MEDS: LEVETIRACETAM SOL (5 ML) 100 MG/ML UDC GT SCH ×2 (08:40→20:25)
[2018-09-06] MEDS: BACLOFEN (10 MG) 10 MG TABLET GT SCH ×3 (08:40→16:18)
[2018-09-06] MEDS: ASCORBIC ACID 500 MG TABLET GT SCH ×2 (08:41→16:18)
[2018-09-06] MEDS: METFORMIN 500 MG TABLET PO SCH ×2 (08:41→16:18)
[2018-09-06] MEDS: PROSTAT (PYXIS) 30 ML UDC GT SCH ×2 (08:41→16:18)
[2018-09-06] MEDS: HEPARIN SODIUM, PORCINE 5000 UNITS/1 ML VIAL SQ SCH ×2 (08:42→20:28)
[2018-09-06] MEDS: Z GUARD REMEDY 4 OZ OINT TP SCH ×2 (09:00→20:29)
[2018-09-06] MEDS: FUNGI NAIL TP SCH ×2 (09:00→20:29)
[2018-09-06] MEDS: HYDROGEN PEROXIDE 480 ML BOTTLE TP SCH ×2 (09:00→20:29)
--- NOTE | 2018-09-06 13:48 | NUR ---
ERVIN informed patient's relative Bere about IDT mtg this Friday 09/08 at 12:30.Bere confirmed attendance
[2018-09-06] MEDS: GLUCERNA 1.2 1,000 ML BOTTLE GT PRN (15:54)
--- NOTE | 2018-09-06 19:48 | NUR ---
RT NOTE: RECEIVED TRACH PT ON [facility] VENT ON NOTED SETTINGS PER MD ORDERS. TRACH IS PATENT AND SECURED. MONOMER PURIFICATION OPERATOR DONE. Q6 BREATHING TX GIVEN WITH NO ADVERSE REACTION NOTED. SX DONE PRN. VENT PLUGGED INTO RED OUTLET. ALARMS ON AND AUDIBLE. ERIC BAG @ BEDSIDE. NO RESP DISTRESS AT THIS TIME. WILL CONT TO MONITOR PT. Addendum: 09/07/18 at 0230 by SHE BYRNE RT Amended: Links added.
[2018-09-06 19:53] VITALS: BP 107/54
[2018-09-06] MEDS: MULTIVIT W/MINERALS 1 TAB TABLET GT SCH (20:25)
[2018-09-06] MEDS: SENNOSIDES 8.6 MG TABLET GT SCH (21:19)
[2018-09-06] MEDS: BASAGLAR SQ SCH (21:25)
[2018-09-07] MEDS: POLYVINYL ALCOHOL 15 ML BOTTLE EACHEYE SCH ×5 (00:04→23:25)
[2018-09-07] MEDS: ALBUTEROL FS 2.5 MG/3 ML VIAL.NEB NEB SCH ×4 (01:19→19:44)
[2018-09-07] MEDS: IPRATROPIUM NEB FS 0.5 MG/2.5 ML AMPUL.NEB NEB SCH ×4 (01:19→19:44)
[2018-09-07] MEDS: OMEPRAZOLE DR 20 MG GT SCH (05:45)
[2018-09-07] MEDS: BLOOD SUGAR DIAGNOSTIC 1 EACH STRIP IN SCH ×2 (06:32→17:55)
[2018-09-07] MEDS: INSULIN LISPRO/ASPART 100 UNIT/ML CARTRIDGE SQ PRN ×2 (06:34→18:08)
[2018-09-07] MEDS: PROSTAT (PYXIS) 30 ML UDC GT SCH ×2 (09:05→17:55)
[2018-09-07] MEDS: DOCUSATE SODIUM LIQ 100 MG/10 ML UDC GT SCH ×2 (09:05→17:55)
[2018-09-07] MEDS: ASCORBIC ACID 500 MG TABLET GT SCH ×2 (09:05→17:55)
[2018-09-07] MEDS: METFORMIN 500 MG TABLET PO SCH ×2 (09:05→17:55)
[2018-09-07] MEDS: FERROUS SULFATE - FOR SA ONLY 330 MG/7.5 ML UDC GT SCH ×3 (09:05→17:55)
[2018-09-07] MEDS: POTASSIUM CHLORIDE 20 MEQ/15 ML GT SCH (09:05)
[2018-09-07] MEDS: LEVETIRACETAM SOL (5 ML) 100 MG/ML UDC GT SCH ×2 (09:05→21:29)
[2018-09-07] MEDS: BACLOFEN (10 MG) 10 MG TABLET GT SCH ×3 (09:05→17:55)
[2018-09-07] MEDS: HYDROGEN PEROXIDE 480 ML BOTTLE TP SCH ×2 (09:07→21:29)
[2018-09-07] MEDS: FUNGI NAIL TP SCH ×2 (09:07→21:29)
[2018-09-07] MEDS: HEPARIN SODIUM, PORCINE 5000 UNITS/1 ML VIAL SQ SCH ×2 (09:07→21:29)
[2018-09-07] MEDS: Z GUARD REMEDY 4 OZ OINT TP SCH ×2 (09:07→21:30)
[2018-09-07 10:49] VITALS: BP 114/69
[2018-09-07] MEDS: GLUCERNA 1.2 1,000 ML BOTTLE GT PRN (15:27)
--- NOTE | 2018-09-07 19:35 | NUR ---
received pt with temp 100.3, pt calm, no s/s of distress. all comfort measures rendered. will monitor closely.
[2018-09-07 19:55] VITALS: BP 109/65
--- NOTE | 2018-09-07 20:25 | NUR ---
cooling measures effective. temp 98.7. pt calm. no s/s of distress noted. will continue to monitor.
[2018-09-07] MEDS: MULTIVIT W/MINERALS 1 TAB TABLET GT SCH (21:29)
[2018-09-07] MEDS: ACETAMINOPHEN 650 MG/20 ML UDC- SA PATIENTS-PAIN ONLY GT PRN ×2 (21:30→21:37)
[2018-09-07] MEDS: SENNOSIDES 8.6 MG TABLET GT SCH (21:30)
[2018-09-07] MEDS: BASAGLAR SQ SCH (22:52)
[2018-09-08] MEDS: IPRATROPIUM NEB FS 0.5 MG/2.5 ML AMPUL.NEB NEB SCH ×4 (01:50→19:39)
[2018-09-08] MEDS: ALBUTEROL FS 2.5 MG/3 ML VIAL.NEB NEB SCH ×4 (01:50→19:39)
[2018-09-08] MEDS: POLYVINYL ALCOHOL 15 ML BOTTLE EACHEYE SCH ×3 (05:27→17:30)
[2018-09-08] MEDS: OMEPRAZOLE DR 20 MG GT SCH (05:27)
[2018-09-08] MEDS: BLOOD SUGAR DIAGNOSTIC 1 EACH STRIP IN SCH ×2 (06:56→18:38)
[2018-09-08] MEDS: INSULIN LISPRO/ASPART 100 UNIT/ML CARTRIDGE SQ PRN ×2 (06:58→18:39)
--- NOTE | 2018-09-08 07:08 | NUR ---
given prn tylenol 650 mg via gt x1 d/t discomfort. effective.
[2018-09-08 08:05] VITALS: BP 151/74
[2018-09-08] MEDS: FERROUS SULFATE - FOR SA ONLY 330 MG/7.5 ML UDC GT SCH ×3 (08:57→17:30)
[2018-09-08] MEDS: ASCORBIC ACID 500 MG TABLET GT SCH ×2 (08:57→17:30)
[2018-09-08] MEDS: PROSTAT (PYXIS) 30 ML UDC GT SCH ×2 (08:57→17:30)
[2018-09-08] MEDS: POTASSIUM CHLORIDE 20 MEQ/15 ML GT SCH (08:57)
[2018-09-08] MEDS: LEVETIRACETAM SOL (5 ML) 100 MG/ML UDC GT SCH ×2 (08:57→20:27)
[2018-09-08] MEDS: METFORMIN 500 MG TABLET PO SCH ×2 (08:57→17:30)
[2018-09-08] MEDS: BACLOFEN (10 MG) 10 MG TABLET GT SCH ×3 (08:57→17:30)
[2018-09-08] MEDS: DOCUSATE SODIUM LIQ 100 MG/10 ML UDC GT SCH ×2 (08:57→17:30)
[2018-09-08] MEDS: HEPARIN SODIUM, PORCINE 5000 UNITS/1 ML VIAL SQ SCH ×2 (08:59→20:27)
[2018-09-08] MEDS: FUNGI NAIL TP SCH ×2 (08:59→20:28)
[2018-09-08] MEDS: Z GUARD REMEDY 4 OZ OINT TP SCH ×2 (08:59→20:28)
[2018-09-08] MEDS: HYDROGEN PEROXIDE 480 ML BOTTLE TP SCH ×2 (08:59→20:28)
--- NOTE | 2018-09-08 10:00 | NUR ---
RT NOTE RECEIVED PT MECHANICALLY VENTILATED VIA CUFFED TRACHEOSTOMY TUBE. CUFF INFLATED VIA ENGINEERING ASSISTANT. TRACHEOSTOMY TUBE MIDLINE AND SECURE. VENTILATOR SETTINGS PRESCRIBED. ALARMS SET PER PROTOCOL AND AUDIBLE. VENT PLUGGED IN TO RED OUTLET. AMBU BAG AT BED SIDE. NO DISTRESS NOTED AT MOMENT. Addendum: 09/08/18 at 1000 by VERÓNICA JUNIOR RT Amended: Links added.
--- NOTE | 2018-09-08 11:00 | NUR ---
Seen and examined by Dr. Dsouza, made aware with episode of low grade temp 100.3 yesterday, NNO given. Continue to observe. Afebrile this shift.
--- NOTE | 2018-09-08 11:39 | NUR ---
INTERDISCIPLINARY PLAN OF CARE CONFERENCE was held today. Resident's family member Bere attend it. Dr. Alvarez and the interdisciplinary team discussed the current plan of care in detail. Current orders as well as treatments and medications were reviewed. Bere said she did not have any questions and was pleased with patient's treatment. No new orders.
--- NOTE | 2018-09-08 14:00 | NUR ---
INTERDISCIPLINARY TEAM CONFERENCE (IDT) was held today. Resident's sister Tosin attended today's IDT meeting. Dr. Alvarez and the interdisciplinary team reviewed the current plan of care in detail. Orders as well as treatment and medications were reviewed. Resident is stable at this time although with episode of low grade fever, will monitor condition for now.
[2018-09-08] MEDS: GLUCERNA 1.2 1,000 ML BOTTLE GT PRN (15:34)
[2018-09-08 20:03] VITALS: BP 114/66
[2018-09-08] MEDS: MULTIVIT W/MINERALS 1 TAB TABLET GT SCH (20:27)
[2018-09-08] MEDS: SENNOSIDES 8.6 MG TABLET GT SCH (22:09)
[2018-09-08] MEDS: BASAGLAR SQ SCH (22:09)
[2018-09-09] MEDS: POLYVINYL ALCOHOL 15 ML BOTTLE EACHEYE SCH ×4 (00:10→17:33)
[2018-09-09] MEDS: ALBUTEROL FS 2.5 MG/3 ML VIAL.NEB NEB SCH ×4 (01:07→19:44)
[2018-09-09] MEDS: IPRATROPIUM NEB FS 0.5 MG/2.5 ML AMPUL.NEB NEB SCH ×4 (01:07→19:44)
[2018-09-09] MEDS: OMEPRAZOLE DR 20 MG GT SCH (05:59)
[2018-09-09] MEDS: BLOOD SUGAR DIAGNOSTIC 1 EACH STRIP IN SCH ×2 (07:02→19:18)
[2018-09-09] MEDS: INSULIN LISPRO/ASPART 100 UNIT/ML CARTRIDGE SQ PRN ×2 (07:04→19:19)
[2018-09-09 08:08] VITALS: BP 114/57
[2018-09-09] MEDS: BACLOFEN (10 MG) 10 MG TABLET GT SCH ×3 (08:46→17:33)
[2018-09-09] MEDS: DOCUSATE SODIUM LIQ 100 MG/10 ML UDC GT SCH ×2 (08:46→17:32)
[2018-09-09] MEDS: LEVETIRACETAM SOL (5 ML) 100 MG/ML UDC GT SCH ×2 (08:46→21:21)
[2018-09-09] MEDS: FERROUS SULFATE - FOR SA ONLY 330 MG/7.5 ML UDC GT SCH ×3 (08:46→17:33)
[2018-09-09] MEDS: POTASSIUM CHLORIDE 20 MEQ/15 ML GT SCH (08:47)
[2018-09-09] MEDS: PROSTAT (PYXIS) 30 ML UDC GT SCH ×2 (08:47→17:33)
[2018-09-09] MEDS: ASCORBIC ACID 500 MG TABLET GT SCH ×2 (08:47→17:33)
[2018-09-09] MEDS: METFORMIN 500 MG TABLET PO SCH ×2 (08:47→17:33)
[2018-09-09] MEDS: HEPARIN SODIUM, PORCINE 5000 UNITS/1 ML VIAL SQ SCH ×2 (08:48→21:23)
[2018-09-09] MEDS: HYDROGEN PEROXIDE 480 ML BOTTLE TP SCH ×2 (09:11→21:23)
[2018-09-09] MEDS: FUNGI NAIL TP SCH ×2 (09:11→21:23)
[2018-09-09] MEDS: Z GUARD REMEDY 4 OZ OINT TP SCH ×2 (09:11→21:23)
[2018-09-09] MEDS: GLUCERNA 1.2 1,000 ML BOTTLE GT PRN (17:49)
[2018-09-09] MEDS: MULTIVIT W/MINERALS 1 TAB TABLET GT SCH (21:21)
[2018-09-09] MEDS: SENNOSIDES 8.6 MG TABLET GT SCH (21:23)
[2018-09-09] MEDS: BASAGLAR SQ SCH (22:07)
--- NOTE | 2018-09-09 22:09 | NUR ---
chemical detection expert/notes blood sugar 159 ,16 units of lantus given sayra sq LLQ ORDERED.
[2018-09-09 22:12] VITALS: BP 109/56
[2018-09-10] MEDS: POLYVINYL ALCOHOL 15 ML BOTTLE EACHEYE SCH ×4 (00:10→17:22)
[2018-09-10] MEDS: IPRATROPIUM NEB FS 0.5 MG/2.5 ML AMPUL.NEB NEB SCH ×4 (01:43→19:43)
[2018-09-10] MEDS: ALBUTEROL FS 2.5 MG/3 ML VIAL.NEB NEB SCH ×4 (01:43→19:43)
[2018-09-10] MEDS: OMEPRAZOLE DR 20 MG GT SCH (05:26)
[2018-09-10] MEDS: BLOOD SUGAR DIAGNOSTIC 1 EACH STRIP IN SCH ×2 (06:51→18:26)
[2018-09-10] MEDS: INSULIN LISPRO/ASPART 100 UNIT/ML CARTRIDGE SQ PRN ×2 (06:53→18:26)
--- NOTE | 2018-09-10 06:54 | NUR ---
PATIENT ACCOUNT SPECIALIST NOTES BLOOD SUGAR 156, 1 UNIT OF INSULIN GIVEN CHAYO SQ ORDERED. NO SIGNS OF HYPO/HYPER GLYCEMIA NOTED.
[2018-09-10 07:39] VITALS: BP 125/72
[2018-09-10] MEDS: PROSTAT (PYXIS) 30 ML UDC GT SCH ×2 (08:42→17:22)
[2018-09-10] MEDS: FERROUS SULFATE - FOR SA ONLY 330 MG/7.5 ML UDC GT SCH ×3 (08:42→17:22)
[2018-09-10] MEDS: BACLOFEN (10 MG) 10 MG TABLET GT SCH ×3 (08:42→17:22)
[2018-09-10] MEDS: ASCORBIC ACID 500 MG TABLET GT SCH ×2 (08:42→17:22)
[2018-09-10] MEDS: POTASSIUM CHLORIDE 20 MEQ/15 ML GT SCH (08:42)
[2018-09-10] MEDS: METFORMIN 500 MG TABLET PO SCH ×2 (08:42→17:22)
[2018-09-10] MEDS: LEVETIRACETAM SOL (5 ML) 100 MG/ML UDC GT SCH ×2 (08:42→20:10)
[2018-09-10] MEDS: DOCUSATE SODIUM LIQ 100 MG/10 ML UDC GT SCH ×2 (08:42→17:22)
[2018-09-10] MEDS: HEPARIN SODIUM, PORCINE 5000 UNITS/1 ML VIAL SQ SCH ×2 (08:43→20:12)
[2018-09-10] MEDS: HYDROGEN PEROXIDE 480 ML BOTTLE TP SCH ×2 (08:43→20:12)
[2018-09-10] MEDS: FUNGI NAIL TP SCH ×2 (08:43→20:13)
[2018-09-10] MEDS: Z GUARD REMEDY 4 OZ OINT TP SCH ×2 (08:43→20:13)
[2018-09-10] MEDS: GLUCERNA 1.2 1,000 ML BOTTLE GT PRN (17:50)
[2018-09-10] MEDS: MULTIVIT W/MINERALS 1 TAB TABLET GT SCH (20:11)
[2018-09-10 20:16] VITALS: BP 112/78
[2018-09-10] MEDS: SENNOSIDES 8.6 MG TABLET GT SCH (22:28)
[2018-09-10] MEDS: BASAGLAR SQ SCH (22:29)
[2018-09-11] MEDS: POLYVINYL ALCOHOL 15 ML BOTTLE EACHEYE SCH ×4 (00:03→17:28)
[2018-09-11] MEDS: ALBUTEROL FS 2.5 MG/3 ML VIAL.NEB NEB SCH ×4 (01:04→19:27)
[2018-09-11] MEDS: IPRATROPIUM NEB FS 0.5 MG/2.5 ML AMPUL.NEB NEB SCH ×4 (01:04→19:27)
[2018-09-11] MEDS: OMEPRAZOLE DR 20 MG GT SCH (05:49)
[2018-09-11] MEDS: BLOOD SUGAR DIAGNOSTIC 1 EACH STRIP IN SCH ×2 (06:39→18:16)
[2018-09-11] MEDS: INSULIN LISPRO/ASPART 100 UNIT/ML CARTRIDGE SQ PRN ×2 (06:43→18:16)
[2018-09-11 09:32] VITALS: BP 97/69
[2018-09-11] MEDS: BACLOFEN (10 MG) 10 MG TABLET GT SCH ×3 (09:53→17:28)
[2018-09-11] MEDS: HEPARIN SODIUM, PORCINE 5000 UNITS/1 ML VIAL SQ SCH ×2 (09:53→20:10)
[2018-09-11] MEDS: DOCUSATE SODIUM LIQ 100 MG/10 ML UDC GT SCH ×2 (09:53→17:28)
[2018-09-11] MEDS: METFORMIN 500 MG TABLET PO SCH ×2 (09:53→17:28)
[2018-09-11] MEDS: PROSTAT (PYXIS) 30 ML UDC GT SCH ×2 (09:53→17:28)
[2018-09-11] MEDS: POTASSIUM CHLORIDE 20 MEQ/15 ML GT SCH (09:53)
[2018-09-11] MEDS: FERROUS SULFATE - FOR SA ONLY 330 MG/7.5 ML UDC GT SCH ×3 (09:53→17:28)
[2018-09-11] MEDS: HYDROGEN PEROXIDE 480 ML BOTTLE TP SCH ×2 (09:53→20:11)
[2018-09-11] MEDS: FUNGI NAIL TP SCH ×2 (09:53→20:11)
[2018-09-11] MEDS: ASCORBIC ACID 500 MG TABLET GT SCH ×2 (09:53→17:28)
[2018-09-11] MEDS: Z GUARD REMEDY 4 OZ OINT TP SCH ×2 (09:53→20:11)
[2018-09-11] MEDS: LEVETIRACETAM SOL (5 ML) 100 MG/ML UDC GT SCH ×2 (09:53→20:08)
[2018-09-11] MEDS: MULTIVIT W/MINERALS 1 TAB TABLET GT SCH (20:09)
[2018-09-11 20:12] VITALS: BP 108/66
[2018-09-11] MEDS: SENNOSIDES 8.6 MG TABLET GT SCH (21:57)
[2018-09-11] MEDS: BASAGLAR SQ SCH (21:57)
[2018-09-12] MEDS: POLYVINYL ALCOHOL 15 ML BOTTLE EACHEYE SCH ×4 (00:19→17:30)
[2018-09-12] MEDS: IPRATROPIUM NEB FS 0.5 MG/2.5 ML AMPUL.NEB NEB SCH ×4 (01:52→19:28)
[2018-09-12] MEDS: ALBUTEROL FS 2.5 MG/3 ML VIAL.NEB NEB SCH ×4 (01:52→19:28)
[2018-09-12] MEDS: OMEPRAZOLE DR 20 MG GT SCH (05:20)
[2018-09-12] MEDS: BLOOD SUGAR DIAGNOSTIC 1 EACH STRIP IN SCH ×2 (06:28→18:09)
[2018-09-12] MEDS: INSULIN LISPRO/ASPART 100 UNIT/ML CARTRIDGE SQ PRN ×2 (06:29→18:09)
[2018-09-12] MEDS: FERROUS SULFATE - FOR SA ONLY 330 MG/7.5 ML UDC GT SCH ×3 (09:13→17:30)
[2018-09-12] MEDS: ASCORBIC ACID 500 MG TABLET GT SCH ×2 (09:13→17:30)
[2018-09-12] MEDS: LEVETIRACETAM SOL (5 ML) 100 MG/ML UDC GT SCH ×2 (09:13→20:11)
[2018-09-12] MEDS: POTASSIUM CHLORIDE 20 MEQ/15 ML GT SCH (09:13)
[2018-09-12] MEDS: METFORMIN 500 MG TABLET PO SCH ×2 (09:13→17:30)
[2018-09-12] MEDS: PROSTAT (PYXIS) 30 ML UDC GT SCH ×2 (09:13→17:30)
[2018-09-12] MEDS: BACLOFEN (10 MG) 10 MG TABLET GT SCH ×3 (09:13→17:30)
[2018-09-12] MEDS: DOCUSATE SODIUM LIQ 100 MG/10 ML UDC GT SCH ×2 (09:13→17:30)
[2018-09-12] MEDS: FUNGI NAIL TP SCH ×2 (09:14→20:12)
[2018-09-12] MEDS: HEPARIN SODIUM, PORCINE 5000 UNITS/1 ML VIAL SQ SCH ×2 (09:14→20:12)
[2018-09-12] MEDS: HYDROGEN PEROXIDE 480 ML BOTTLE TP SCH ×2 (09:14→20:12)
[2018-09-12] MEDS: Z GUARD REMEDY 4 OZ OINT TP SCH ×2 (09:14→20:12)
--- NOTE | 2018-09-12 09:30 | NUR ---
Seen and examined by Dr. Alvarez, no new order given.
[2018-09-12 10:40] VITALS: BP 108/67
[2018-09-12] MEDS: GLUCERNA 1.2 1,000 ML BOTTLE GT PRN (15:25)
[2018-09-12] MEDS: MULTIVIT W/MINERALS 1 TAB TABLET GT SCH (20:11)
[2018-09-12 20:39] VITALS: BP 115/67
[2018-09-12] MEDS: SENNOSIDES 8.6 MG TABLET GT SCH (21:49)
[2018-09-12] MEDS: BASAGLAR SQ SCH (21:49)
[2018-09-13] MEDS: POLYVINYL ALCOHOL 15 ML BOTTLE EACHEYE SCH ×4 (00:16→23:36)
[2018-09-13] MEDS: ALBUTEROL FS 2.5 MG/3 ML VIAL.NEB NEB SCH ×3 (01:25→19:48)
[2018-09-13] MEDS: IPRATROPIUM NEB FS 0.5 MG/2.5 ML AMPUL.NEB NEB SCH ×4 (01:25→19:47)
--- NOTE | 2018-09-13 04:29 | NUR ---
RT NOTE PT RECEIVED ON [facility] VENT ON THE FOLLOWING NOTED SETTINGS. PT SX'D. NO RESP DISTRESS OR SOB NOTED AT THIS TIME. BREATHING TX GIVEN, NO ADVERSE REACTIONS NOTED AT THIS TIME. VENT IS PLUGGED INTO RED OUTLET. ALARMS ARE ON AND AUDIBLE. SPARE TRACH AND AMBU BAG ARE AT BEDSIDE. WILL CONT TO MONITOR PT. Addendum: 09/13/18 at 0430 by BARI GARZA RT Amended: Links added.
[2018-09-13] MEDS: OMEPRAZOLE DR 20 MG GT SCH (05:31)
[2018-09-13] MEDS: BLOOD SUGAR DIAGNOSTIC 1 EACH STRIP IN SCH ×2 (06:36→18:09)
[2018-09-13] MEDS: INSULIN LISPRO/ASPART 100 UNIT/ML CARTRIDGE SQ PRN ×2 (06:38→18:09)
[2018-09-13 08:00] VITALS: BP 128/64
[2018-09-13] MEDS: HYDROGEN PEROXIDE 480 ML BOTTLE TP SCH ×2 (09:00→21:03)
[2018-09-13] MEDS: Z GUARD REMEDY 4 OZ OINT TP SCH ×2 (09:00→21:03)
[2018-09-13] MEDS: FUNGI NAIL TP SCH ×2 (09:00→21:03)
[2018-09-13] MEDS: FERROUS SULFATE - FOR SA ONLY 330 MG/7.5 ML UDC GT SCH ×2 (09:32→16:16)
[2018-09-13] MEDS: POTASSIUM CHLORIDE 20 MEQ/15 ML GT SCH (09:32)
[2018-09-13] MEDS: BACLOFEN (10 MG) 10 MG TABLET GT SCH ×2 (09:32→16:16)
[2018-09-13] MEDS: LEVETIRACETAM SOL (5 ML) 100 MG/ML UDC GT SCH ×2 (09:32→21:03)
[2018-09-13] MEDS: DOCUSATE SODIUM LIQ 100 MG/10 ML UDC GT SCH ×2 (09:32→17:43)
[2018-09-13] MEDS: ASCORBIC ACID 500 MG TABLET GT SCH ×2 (09:35→17:43)
[2018-09-13] MEDS: METFORMIN 500 MG TABLET PO SCH ×2 (09:35→17:43)
[2018-09-13] MEDS: PROSTAT (PYXIS) 30 ML UDC GT SCH ×2 (09:35→17:43)
[2018-09-13] MEDS: HEPARIN SODIUM, PORCINE 5000 UNITS/1 ML VIAL SQ SCH ×2 (09:42→21:03)
[2018-09-13] MEDS: GLUCERNA 1.2 1,000 ML BOTTLE GT PRN (16:16)
[2018-09-13] MEDS: MULTIVIT W/MINERALS 1 TAB TABLET GT SCH (21:03)
[2018-09-13] MEDS: SENNOSIDES 8.6 MG TABLET GT SCH (21:04)
[2018-09-13 21:11] VITALS: BP 108/66
[2018-09-13] MEDS: BASAGLAR SQ SCH (21:18)
--- NOTE | 2018-09-13 21:37 | NUR ---
RT PT REC'D WITH A SHILEY 6 TRACH ON THE VENT WITH NOTED SETTINGS. PT IS AWAKE BUT DOES NOT RESPOND TO COMMANDS. VENT ALARMS ARE SET AND AUDIBLE WITH BVM BY BEDSIDE. ROTARY CUTTER CUFF PRESSURE NOTED. VENT IS PLUGGED INTO RED OUTLET. PT SX'D MODERATE THICK PALE YELLOW SECRETIONS. HHN TX GIVEN WITH NO ADVERSE REACTIONS. NO SOB, NO RESPIRATORY DISTRESS NOTED AT THIS TIME, WILL CONTINUE TO MONITOR. Addendum: 09/13/18 at 2140 by ARIS CRUZ RT Amended: Links added.
[2018-09-14] MEDS: ALBUTEROL FS 2.5 MG/3 ML VIAL.NEB NEB SCH ×4 (01:48→19:57)
[2018-09-14] MEDS: IPRATROPIUM NEB FS 0.5 MG/2.5 ML AMPUL.NEB NEB SCH ×4 (01:48→19:57)
[2018-09-14] MEDS: OMEPRAZOLE DR 20 MG GT SCH (05:39)
[2018-09-14] MEDS: POLYVINYL ALCOHOL 15 ML BOTTLE EACHEYE SCH ×3 (05:39→17:05)
[2018-09-14] MEDS: BLOOD SUGAR DIAGNOSTIC 1 EACH STRIP IN SCH ×2 (06:41→19:04)
[2018-09-14] MEDS: INSULIN LISPRO/ASPART 100 UNIT/ML CARTRIDGE SQ PRN ×2 (06:42→19:05)
[2018-09-14 08:00] VITALS: BP 108/68
[2018-09-14] MEDS: METFORMIN 500 MG TABLET PO SCH ×2 (08:56→17:05)
[2018-09-14] MEDS: ASCORBIC ACID 500 MG TABLET GT SCH ×2 (08:56→17:05)
[2018-09-14] MEDS: LEVETIRACETAM SOL (5 ML) 100 MG/ML UDC GT SCH ×2 (08:56→20:43)
[2018-09-14] MEDS: HYDROGEN PEROXIDE 480 ML BOTTLE TP SCH ×2 (08:56→20:44)
[2018-09-14] MEDS: POTASSIUM CHLORIDE 20 MEQ/15 ML GT SCH (08:56)
[2018-09-14] MEDS: FUNGI NAIL TP SCH ×2 (08:56→20:44)
[2018-09-14] MEDS: PROSTAT (PYXIS) 30 ML UDC GT SCH ×2 (08:56→17:05)
[2018-09-14] MEDS: HEPARIN SODIUM, PORCINE 5000 UNITS/1 ML VIAL SQ SCH ×2 (08:56→20:44)
[2018-09-14] MEDS: BACLOFEN (10 MG) 10 MG TABLET GT SCH ×3 (08:56→17:05)
[2018-09-14] MEDS: FERROUS SULFATE - FOR SA ONLY 330 MG/7.5 ML UDC GT SCH ×3 (08:56→17:05)
[2018-09-14] MEDS: DOCUSATE SODIUM LIQ 100 MG/10 ML UDC GT SCH ×2 (08:56→17:05)
[2018-09-14] MEDS: Z GUARD REMEDY 4 OZ OINT TP SCH ×2 (08:57→20:44)
--- NOTE | 2018-09-14 09:04 | NUR ---
RT PT REC'D WITH A SHILEY 6 TRACH ON THE VENT WITH NOTED SETTINGS. PT IS AWAKE BUT DOES NOT RESPOND TO COMMANDS. VENT ALARMS ARE SET AND AUDIBLE WITH BVM BY BEDSIDE. TOOL MECHANIC CUFF PRESSURE NOTED. VENT IS PLUGGED INTO RED OUTLET. PT SX'D MODERATE THICK PALE YELLOW SECRETIONS. HHN TX GIVEN WITH NO ADVERSE REACTIONS. NO SOB, NO RESPIRATORY DISTRESS NOTED AT THIS TIME, WILL CONTINUE TO MONITOR.
[2018-09-14] MEDS: GLUCERNA 1.2 1,000 ML BOTTLE GT PRN (17:06)
[2018-09-14] MEDS: POLYETHYLENE GLYCOL 3350 17 GM POWD.PACK GT PRN (19:04)
--- NOTE | 2018-09-14 20:00 | NUR ---
Seen by LORENZO PHILIPPE.
[2018-09-14 20:42] VITALS: BP 111/72
[2018-09-14] MEDS: MULTIVIT W/MINERALS 1 TAB TABLET GT SCH (20:43)
--- NOTE | 2018-09-14 21:04 | NUR ---
RT PT REC'D WITH A SHILEY 6 TRACH ON THE VENT WITH NOTED SETTINGS. PT IS AWAKE BUT DOES NOT RESPOND TO COMMANDS. VENT ALARMS ARE SET AND AUDIBLE WITH BVM BY BEDSIDE. SUPERVISOR FELTING CUFF PRESSURE NOTED. VENT IS PLUGGED INTO RED OUTLET. PT SX'D SMALL THIN WHITE SECRETIONS. HHN TX GIVEN WITH NO ADVERSE REACTIONS. NO SOB, NO RESPIRATORY DISTRESS NOTED AT THIS TIME, WILL CONTINUE TO MONITOR. Addendum: 09/14/18 at 2105 by ARIS CRUZ RT Amended: Links added.
[2018-09-14] MEDS: BASAGLAR SQ SCH (21:28)
[2018-09-14] MEDS: SENNOSIDES 8.6 MG TABLET GT SCH (21:28)
[2018-09-15] MEDS: POLYVINYL ALCOHOL 15 ML BOTTLE EACHEYE SCH ×5 (00:54→23:30)
[2018-09-15] MEDS: ALBUTEROL FS 2.5 MG/3 ML VIAL.NEB NEB SCH ×4 (01:35→19:34)
[2018-09-15] MEDS: IPRATROPIUM NEB FS 0.5 MG/2.5 ML AMPUL.NEB NEB SCH ×4 (01:35→19:34)
[2018-09-15] MEDS: OMEPRAZOLE DR 20 MG GT SCH (05:31)
[2018-09-15] MEDS: BLOOD SUGAR DIAGNOSTIC 1 EACH STRIP IN SCH ×2 (06:34→19:03)
[2018-09-15] MEDS: INSULIN LISPRO/ASPART 100 UNIT/ML CARTRIDGE SQ PRN (06:34)
[2018-09-15 07:50] VITALS: BP 127/76
--- NOTE | 2018-09-15 09:00 | NUR ---
Seen and examined by LORENZO Rodgers, NNO given.
[2018-09-15] MEDS: HEPARIN SODIUM, PORCINE 5000 UNITS/1 ML VIAL SQ SCH ×2 (09:31→20:16)
[2018-09-15] MEDS: FERROUS SULFATE - FOR SA ONLY 330 MG/7.5 ML UDC GT SCH ×3 (09:31→17:08)
[2018-09-15] MEDS: BACLOFEN (10 MG) 10 MG TABLET GT SCH ×3 (09:31→17:09)
[2018-09-15] MEDS: DOCUSATE SODIUM LIQ 100 MG/10 ML UDC GT SCH ×2 (09:31→17:08)
[2018-09-15] MEDS: LEVETIRACETAM SOL (5 ML) 100 MG/ML UDC GT SCH ×2 (09:31→20:15)
[2018-09-15] MEDS: PROSTAT (PYXIS) 30 ML UDC GT SCH ×2 (09:32→17:09)
[2018-09-15] MEDS: FUNGI NAIL TP SCH ×2 (09:32→20:17)
[2018-09-15] MEDS: Z GUARD REMEDY 4 OZ OINT TP SCH ×2 (09:32→20:17)
[2018-09-15] MEDS: METFORMIN 500 MG TABLET PO SCH ×2 (09:32→17:09)
[2018-09-15] MEDS: POTASSIUM CHLORIDE 20 MEQ/15 ML GT SCH (09:32)
[2018-09-15] MEDS: ASCORBIC ACID 500 MG TABLET GT SCH ×2 (09:32→17:09)
[2018-09-15] MEDS: HYDROGEN PEROXIDE 480 ML BOTTLE TP SCH ×2 (09:32→20:16)
[2018-09-15 19:49] VITALS: BP 110/73
[2018-09-15] MEDS: MULTIVIT W/MINERALS 1 TAB TABLET GT SCH (20:15)
[2018-09-15] MEDS: SENNOSIDES 8.6 MG TABLET GT SCH (21:07)
[2018-09-15] MEDS: BASAGLAR SQ SCH (21:08)
[2018-09-16] MEDS: ALBUTEROL FS 2.5 MG/3 ML VIAL.NEB NEB SCH ×4 (01:35→19:36)
[2018-09-16] MEDS: IPRATROPIUM NEB FS 0.5 MG/2.5 ML AMPUL.NEB NEB SCH ×4 (01:35→19:36)
[2018-09-16] MEDS: OMEPRAZOLE DR 20 MG GT SCH (05:14)
[2018-09-16] MEDS: POLYVINYL ALCOHOL 15 ML BOTTLE EACHEYE SCH ×4 (05:14→23:07)
[2018-09-16] MEDS: BLOOD SUGAR DIAGNOSTIC 1 EACH STRIP IN SCH ×2 (06:07→19:31)
--- NOTE | 2018-09-16 06:20 | NUR ---
SUBACUTE RN NOTE: PATIENT BLOOD SUGAR LEVEL 172MG/DL, PATIENT TO RECEIVE 1 UNIT OF INSULIN PER SLIDING SCALE. WILL CONTINUE TO MONITOR.
[2018-09-16] MEDS: INSULIN LISPRO/ASPART 100 UNIT/ML CARTRIDGE SQ PRN ×2 (06:30→19:46)
[2018-09-16 08:00] VITALS: BP 129/54
[2018-09-16] MEDS: ASCORBIC ACID 500 MG TABLET GT SCH ×2 (09:21→17:29)
[2018-09-16] MEDS: METFORMIN 500 MG TABLET PO SCH ×2 (09:21→17:29)
[2018-09-16] MEDS: BACLOFEN (10 MG) 10 MG TABLET GT SCH ×3 (09:21→17:29)
[2018-09-16] MEDS: FERROUS SULFATE - FOR SA ONLY 330 MG/7.5 ML UDC GT SCH ×3 (09:21→17:29)
[2018-09-16] MEDS: POTASSIUM CHLORIDE 20 MEQ/15 ML GT SCH (09:21)
[2018-09-16] MEDS: DOCUSATE SODIUM LIQ 100 MG/10 ML UDC GT SCH ×2 (09:21→17:29)
[2018-09-16] MEDS: LEVETIRACETAM SOL (5 ML) 100 MG/ML UDC GT SCH ×2 (09:21→20:01)
[2018-09-16] MEDS: PROSTAT (PYXIS) 30 ML UDC GT SCH ×2 (09:21→17:29)
[2018-09-16] MEDS: HEPARIN SODIUM, PORCINE 5000 UNITS/1 ML VIAL SQ SCH ×2 (09:22→20:08)
[2018-09-16] MEDS: HYDROGEN PEROXIDE 480 ML BOTTLE TP SCH ×2 (09:22→20:09)
[2018-09-16] MEDS: Z GUARD REMEDY 4 OZ OINT TP SCH ×2 (09:23→20:09)
[2018-09-16] MEDS: GLUCERNA 1.2 1,000 ML BOTTLE GT PRN (09:23)
[2018-09-16] MEDS: FUNGI NAIL TP SCH ×2 (09:23→20:09)
--- NOTE | 2018-09-16 19:46 | NUR ---
RN NOTE: BLOOD SUGAR WAS 142. NO INSULIN WAS ADMINISTERED. WILL CONTINUE TO MONITOR.
[2018-09-16 19:55] VITALS: BP 102/59
[2018-09-16 20:00] VITALS: BP 102/59
[2018-09-16] MEDS: MULTIVIT W/MINERALS 1 TAB TABLET GT SCH (20:01)
--- NOTE | 2018-09-16 20:42 | NUR ---
RT NOTE RECEIVED PT MECHANICALLY VENTILATED VIA CUFFED TRACHEOSTOMY TUBE. CUFF INFLATED. TRACH TUBE MIDLINE AND SECURE. VENTILATOR SETTINGS PRESCRIBED. ALARMS SET PER PROTOCOL AND AUDIBLE. VENT PLUGGED IN TO RED OUTLET. AMBU BAG AT BED SIDE. NO DISTRESS NOTED AT MOMENT. Addendum: 09/16/18 at 204 by VERÓNICA JUNIOR RT Amended: Links added.
[2018-09-16] MEDS: SENNOSIDES 8.6 MG TABLET GT SCH (22:12)
[2018-09-16] MEDS: BASAGLAR SQ SCH (22:19)
[2018-09-17] MEDS: ALBUTEROL FS 2.5 MG/3 ML VIAL.NEB NEB SCH ×4 (01:31→19:39)
[2018-09-17] MEDS: IPRATROPIUM NEB FS 0.5 MG/2.5 ML AMPUL.NEB NEB SCH ×4 (01:31→19:39)
[2018-09-17] MEDS: POLYVINYL ALCOHOL 15 ML BOTTLE EACHEYE SCH ×3 (05:02→17:08)
[2018-09-17] MEDS: OMEPRAZOLE DR 20 MG GT SCH (05:02)
[2018-09-17] MEDS: BLOOD SUGAR DIAGNOSTIC 1 EACH STRIP IN SCH ×2 (06:09→18:10)
[2018-09-17] MEDS: INSULIN LISPRO/ASPART 100 UNIT/ML CARTRIDGE SQ PRN ×2 (06:10→18:10)
--- NOTE | 2018-09-17 06:10 | NUR ---
RN NOTES: BLOOD SUGAR THIS AM WAS 145. NO INSULIN WAS ADMINISTERED PER SLIDING SCALE. WILL ENDORSE TO AM NURSE FOR HUDSON.
[2018-09-17 07:40] VITALS: BP 107/69
[2018-09-17] MEDS: FUNGI NAIL TP SCH ×2 (09:25→21:28)
[2018-09-17] MEDS: METFORMIN 500 MG TABLET PO SCH ×2 (09:25→16:24)
[2018-09-17] MEDS: HYDROGEN PEROXIDE 480 ML BOTTLE TP SCH ×2 (09:25→21:28)
[2018-09-17] MEDS: LEVETIRACETAM SOL (5 ML) 100 MG/ML UDC GT SCH ×2 (09:25→21:27)
[2018-09-17] MEDS: POTASSIUM CHLORIDE 20 MEQ/15 ML GT SCH (09:25)
[2018-09-17] MEDS: PROSTAT (PYXIS) 30 ML UDC GT SCH ×2 (09:25→16:24)
[2018-09-17] MEDS: FERROUS SULFATE - FOR SA ONLY 330 MG/7.5 ML UDC GT SCH ×3 (09:25→16:24)
[2018-09-17] MEDS: BACLOFEN (10 MG) 10 MG TABLET GT SCH ×3 (09:25→16:24)
[2018-09-17] MEDS: ASCORBIC ACID 500 MG TABLET GT SCH ×2 (09:25→16:24)
[2018-09-17] MEDS: DOCUSATE SODIUM LIQ 100 MG/10 ML UDC GT SCH ×2 (09:25→16:24)
[2018-09-17] MEDS: Z GUARD REMEDY 4 OZ OINT TP SCH ×2 (09:25→21:28)
[2018-09-17] MEDS: HEPARIN SODIUM, PORCINE 5000 UNITS/1 ML VIAL SQ SCH ×2 (09:26→21:28)
[2018-09-17] MEDS: GLUCERNA 1.2 1,000 ML BOTTLE GT PRN (14:40)
[2018-09-17 20:12] VITALS: BP 122/73
[2018-09-17] MEDS: MULTIVIT W/MINERALS 1 TAB TABLET GT SCH (21:27)
[2018-09-17] MEDS: BASAGLAR SQ SCH (21:28)
[2018-09-17] MEDS: SENNOSIDES 8.6 MG TABLET GT SCH (21:28)
[2018-09-18] MEDS: POLYVINYL ALCOHOL 15 ML BOTTLE EACHEYE SCH ×5 (00:14→23:07)
[2018-09-18] MEDS: ALBUTEROL FS 2.5 MG/3 ML VIAL.NEB NEB SCH ×4 (01:45→19:57)
[2018-09-18] MEDS: IPRATROPIUM NEB FS 0.5 MG/2.5 ML AMPUL.NEB NEB SCH ×4 (01:45→19:57)
[2018-09-18] MEDS: OMEPRAZOLE DR 20 MG GT SCH (05:52)
[2018-09-18] MEDS: BLOOD SUGAR DIAGNOSTIC 1 EACH STRIP IN SCH ×2 (06:24→18:25)
[2018-09-18 07:56] VITALS: BP 114/54
--- NOTE | 2018-09-18 09:15 | NUR ---
RT NOTE RECEIVED PT MECHANICALLY VENTILATED VIA CUFFED TRACHEOSTOMY TUBE. CUFF INFLATED. TRACH TUBE MIDLINE AND SECURE. VENTILATOR SETTINGS PRESCRIBED. ALARMS SET PER PROTOCOL AND AUDIBLE. VENT PLUGGED IN TO RED OUTLET. AMBU BAG AT BED SIDE. NO DISTRESS NOTED AT MOMENT.
[2018-09-18] MEDS: LEVETIRACETAM SOL (5 ML) 100 MG/ML UDC GT SCH ×2 (09:33→20:53)
[2018-09-18] MEDS: DOCUSATE SODIUM LIQ 100 MG/10 ML UDC GT SCH ×2 (09:33→16:48)
[2018-09-18] MEDS: BACLOFEN (10 MG) 10 MG TABLET GT SCH ×3 (09:33→16:48)
[2018-09-18] MEDS: FERROUS SULFATE - FOR SA ONLY 330 MG/7.5 ML UDC GT SCH ×3 (09:33→16:48)
[2018-09-18] MEDS: POTASSIUM CHLORIDE 20 MEQ/15 ML GT SCH (09:33)
[2018-09-18] MEDS: ASCORBIC ACID 500 MG TABLET GT SCH ×2 (09:35→16:48)
[2018-09-18] MEDS: PROSTAT (PYXIS) 30 ML UDC GT SCH ×2 (09:35→16:48)
[2018-09-18] MEDS: METFORMIN 500 MG TABLET PO SCH ×2 (09:37→16:50)
[2018-09-18] MEDS: Z GUARD REMEDY 4 OZ OINT TP SCH ×2 (09:38→20:57)
[2018-09-18] MEDS: FUNGI NAIL TP SCH ×2 (09:38→20:57)
[2018-09-18] MEDS: HYDROGEN PEROXIDE 480 ML BOTTLE TP SCH ×2 (09:38→20:56)
[2018-09-18] MEDS: HEPARIN SODIUM, PORCINE 5000 UNITS/1 ML VIAL SQ SCH ×2 (09:38→20:56)
[2018-09-18] MEDS: GLUCERNA 1.2 1,000 ML BOTTLE GT PRN (16:50)
[2018-09-18] MEDS: INSULIN LISPRO/ASPART 100 UNIT/ML CARTRIDGE SQ PRN (18:28)
[2018-09-18 19:54] VITALS: BP 116/70
[2018-09-18] MEDS: MULTIVIT W/MINERALS 1 TAB TABLET GT SCH (20:54)
[2018-09-18] MEDS: SENNOSIDES 8.6 MG TABLET GT SCH (21:30)
[2018-09-18] MEDS: BASAGLAR SQ SCH (21:30)
[2018-09-19] MEDS: IPRATROPIUM NEB FS 0.5 MG/2.5 ML AMPUL.NEB NEB SCH ×4 (01:45→20:11)
[2018-09-19] MEDS: ALBUTEROL FS 2.5 MG/3 ML VIAL.NEB NEB SCH ×4 (01:45→20:11)
[2018-09-19] MEDS: BLOOD SUGAR DIAGNOSTIC 1 EACH STRIP IN SCH ×2 (06:18→19:00)
[2018-09-19] MEDS: POLYVINYL ALCOHOL 15 ML BOTTLE EACHEYE SCH ×3 (06:18→16:34)
[2018-09-19] MEDS: OMEPRAZOLE DR 20 MG GT SCH (06:18)
[2018-09-19] MEDS: INSULIN LISPRO/ASPART 100 UNIT/ML CARTRIDGE SQ PRN (06:21)
[2018-09-19 07:47] VITALS: BP 103/74
[2018-09-19] MEDS: HEPARIN SODIUM, PORCINE 5000 UNITS/1 ML VIAL SQ SCH ×2 (09:29→21:16)
[2018-09-19] MEDS: LEVETIRACETAM SOL (5 ML) 100 MG/ML UDC GT SCH ×2 (09:52→21:15)
[2018-09-19] MEDS: PROSTAT (PYXIS) 30 ML UDC GT SCH ×2 (09:52→16:33)
[2018-09-19] MEDS: FERROUS SULFATE - FOR SA ONLY 330 MG/7.5 ML UDC GT SCH ×3 (09:52→16:33)
[2018-09-19] MEDS: HYDROGEN PEROXIDE 480 ML BOTTLE TP SCH ×2 (09:52→21:16)
[2018-09-19] MEDS: DOCUSATE SODIUM LIQ 100 MG/10 ML UDC GT SCH ×2 (09:52→16:32)
[2018-09-19] MEDS: BACLOFEN (10 MG) 10 MG TABLET GT SCH ×3 (09:52→16:35)
[2018-09-19] MEDS: FUNGI NAIL TP SCH ×2 (09:52→21:16)
[2018-09-19] MEDS: POTASSIUM CHLORIDE 20 MEQ/15 ML GT SCH (09:52)
[2018-09-19] MEDS: METFORMIN 500 MG TABLET PO SCH ×2 (09:52→16:34)
[2018-09-19] MEDS: ASCORBIC ACID 500 MG TABLET GT SCH ×2 (09:52→16:34)
[2018-09-19] MEDS: Z GUARD REMEDY 4 OZ OINT TP SCH ×2 (09:53→21:16)
--- NOTE | 2018-09-19 11:22 | NUR ---
RT NOTE RECEIVED PT MECHANICALLY VENTILATED VIA SHILEY 6 CUFFED TRACHEOSTOMY TUBE. CUFF INFLATED VIA REHAB OFFICE COORDINATOR. TRACH TUBE MIDLINE AND SECURE. VENTILATOR SETTINGS PRESCRIBED. ALARMS SET PER PROTOCOL AND AUDIBLE. VENT PLUGGED IN TO RED OUTLET. AMBU BAG AT BED SIDE. NO DISTRESS NOTED AT MOMENT. Addendum: 09/19/18 at 1122 by VERÓNICA JUNIOR RT Amended: Links added.
[2018-09-19] MEDS: GLUCERNA 1.2 1,000 ML BOTTLE GT PRN (12:31)
[2018-09-19] MEDS: POLYETHYLENE GLYCOL 3350 17 GM POWD.PACK GT PRN (12:31)
[2018-09-19 19:57] VITALS: BP 108/69
[2018-09-19] MEDS: MULTIVIT W/MINERALS 1 TAB TABLET GT SCH (21:15)
[2018-09-19] MEDS: SENNOSIDES 8.6 MG TABLET GT SCH (21:16)
[2018-09-19] MEDS: BASAGLAR SQ SCH (21:16)
[2018-09-20] MEDS: POLYVINYL ALCOHOL 15 ML BOTTLE EACHEYE SCH ×4 (00:02→17:09)
[2018-09-20] MEDS: IPRATROPIUM NEB FS 0.5 MG/2.5 ML AMPUL.NEB NEB SCH ×4 (01:25→19:49)
[2018-09-20] MEDS: ALBUTEROL FS 2.5 MG/3 ML VIAL.NEB NEB SCH ×4 (01:25→19:49)
[2018-09-20] MEDS: OMEPRAZOLE DR 20 MG GT SCH (05:36)
[2018-09-20] MEDS: BLOOD SUGAR DIAGNOSTIC 1 EACH STRIP IN SCH ×2 (06:08→19:27)
[2018-09-20] MEDS: Z GUARD REMEDY 4 OZ OINT TP SCH ×2 (09:00→21:35)
[2018-09-20] MEDS: METFORMIN 500 MG TABLET PO SCH ×2 (09:00→17:09)
[2018-09-20] MEDS: FERROUS SULFATE - FOR SA ONLY 330 MG/7.5 ML UDC GT SCH ×3 (09:00→17:08)
[2018-09-20] MEDS: DOCUSATE SODIUM LIQ 100 MG/10 ML UDC GT SCH ×2 (09:00→17:08)
[2018-09-20] MEDS: HYDROGEN PEROXIDE 480 ML BOTTLE TP SCH ×2 (09:00→21:35)
[2018-09-20] MEDS: POTASSIUM CHLORIDE 20 MEQ/15 ML GT SCH (09:00)
[2018-09-20] MEDS: ASCORBIC ACID 500 MG TABLET GT SCH ×2 (09:00→17:09)
[2018-09-20] MEDS: LEVETIRACETAM SOL (5 ML) 100 MG/ML UDC GT SCH ×2 (09:00→21:33)
[2018-09-20] MEDS: HEPARIN SODIUM, PORCINE 5000 UNITS/1 ML VIAL SQ SCH ×2 (09:00→21:35)
[2018-09-20] MEDS: FUNGI NAIL TP SCH ×2 (09:00→21:35)
[2018-09-20] MEDS: BACLOFEN (10 MG) 10 MG TABLET GT SCH ×3 (09:00→17:08)
[2018-09-20] MEDS: PROSTAT (PYXIS) 30 ML UDC GT SCH ×2 (09:00→17:08)
[2018-09-20 10:17] VITALS: BP 133/75
[2018-09-20] MEDS: GLUCERNA 1.2 1,000 ML BOTTLE GT PRN (14:52)
[2018-09-20] MEDS: INSULIN LISPRO/ASPART 100 UNIT/ML CARTRIDGE SQ PRN (19:27)
--- NOTE | 2018-09-20 20:35 | NUR ---
PATIENT RECEIVED ON MECHANICAL VENTILATION. CUFF CHECKED VIA PRODUCTION HONING MACHINE OPERATOR. AMBU BAG/BACK UP TRACH @ BEDSIDE. VENT PLUGGED INTO RED OUTLET. ALARMS ON AND AUDIBLE. TX GIVEN, NO ADVERSE REACTIONS NOTED. SX DONE, MODERATE THICK WHITE SECRETIONS NOTED. PATIENT STABLE. WILL MONITOR. Addendum: 09/20/18 at 2035 by ABIOLA COMBS RT Amended: Links added.
[2018-09-20 20:52] VITALS: BP 101/71
[2018-09-20] MEDS: MULTIVIT W/MINERALS 1 TAB TABLET GT SCH (21:33)
[2018-09-20] MEDS: SENNOSIDES 8.6 MG TABLET GT SCH (21:36)
[2018-09-20] MEDS: BASAGLAR SQ SCH (21:39)
[2018-09-21] MEDS: POLYVINYL ALCOHOL 15 ML BOTTLE EACHEYE SCH ×4 (00:04→17:03)
[2018-09-21] MEDS: IPRATROPIUM NEB FS 0.5 MG/2.5 ML AMPUL.NEB NEB SCH ×4 (01:40→19:24)
[2018-09-21] MEDS: ALBUTEROL FS 2.5 MG/3 ML VIAL.NEB NEB SCH ×4 (01:40→19:24)
[2018-09-21] MEDS: OMEPRAZOLE DR 20 MG GT SCH (05:33)
[2018-09-21] MEDS: INSULIN LISPRO/ASPART 100 UNIT/ML CARTRIDGE SQ PRN ×2 (07:01→21:54)
[2018-09-21] MEDS: BLOOD SUGAR DIAGNOSTIC 1 EACH STRIP IN SCH ×2 (07:01→19:00)
[2018-09-21 08:07] VITALS: BP 103/66
[2018-09-21] MEDS: FUNGI NAIL TP SCH ×2 (08:27→21:53)
[2018-09-21] MEDS: POTASSIUM CHLORIDE 20 MEQ/15 ML GT SCH (08:27)
[2018-09-21] MEDS: LEVETIRACETAM SOL (5 ML) 100 MG/ML UDC GT SCH ×2 (08:27→21:53)
[2018-09-21] MEDS: DOCUSATE SODIUM LIQ 100 MG/10 ML UDC GT SCH ×2 (08:27→17:03)
[2018-09-21] MEDS: METFORMIN 500 MG TABLET PO SCH ×2 (08:27→17:03)
[2018-09-21] MEDS: PROSTAT (PYXIS) 30 ML UDC GT SCH ×2 (08:27→17:03)
[2018-09-21] MEDS: Z GUARD REMEDY 4 OZ OINT TP SCH ×2 (08:27→21:53)
[2018-09-21] MEDS: HEPARIN SODIUM, PORCINE 5000 UNITS/1 ML VIAL SQ SCH ×2 (08:27→21:53)
[2018-09-21] MEDS: HYDROGEN PEROXIDE 480 ML BOTTLE TP SCH ×2 (08:27→21:53)
[2018-09-21] MEDS: BACLOFEN (10 MG) 10 MG TABLET GT SCH ×3 (08:27→17:03)
[2018-09-21] MEDS: FERROUS SULFATE - FOR SA ONLY 330 MG/7.5 ML UDC GT SCH ×3 (08:27→17:03)
[2018-09-21] MEDS: ASCORBIC ACID 500 MG TABLET GT SCH ×2 (08:27→17:03)
--- NOTE | 2018-09-21 16:37 | NUR ---
RT PT RECEIVED ON MECHANICAL VENT. AMBU BAG AND SPARE TRACH AT BEDSIDE. VENT PLUGGED INTO RED OUTLET. ALARMS ON AND FUNCTIONING PROPERLY. TX GIVEN, NO ADVERSE EFFECTS NOTED. SX'D SMALL AMOUNTS OF THICK WHITE/YELLOW SECRETIONS. WILL CONTINUE TO MONITOR FOR ANY CHANGES. Addendum: 09/21/18 at 1834 by WING WHITTINGTON RT Amended: Links added.
[2018-09-21] MEDS: GLUCERNA 1.2 1,000 ML BOTTLE GT PRN (17:03)
--- NOTE | 2018-09-21 20:20 | NUR ---
PATIENT RECEIVED MECHANICAL VENTILATION WITH SETTINGS OF AC 12, 500 VT, 30%, +0. SUCTIONED FOR MINIMAL, THIN, WHITE-CREAM SECRETIONS. GIVEN IN-LINE TREATMENTS WITH NO ADVERSE REACTIONS. AMBU BAG AT BEDSIDE. VENT ALARM AUDIBLE AND VISIBLE. VENT PLUGGED INTO RED OUTLET. Addendum: 09/21/18 at 2020 by WHITNEY KLEIN RT Amended: Links added.
[2018-09-21 20:31] VITALS: BP 107/75
[2018-09-21] MEDS: MULTIVIT W/MINERALS 1 TAB TABLET GT SCH (21:53)
[2018-09-21] MEDS: SENNOSIDES 8.6 MG TABLET GT SCH (21:53)
[2018-09-21] MEDS: BASAGLAR SQ SCH (21:54)
[2018-09-22] MEDS: POLYVINYL ALCOHOL 15 ML BOTTLE EACHEYE SCH ×5 (00:22→23:40)
[2018-09-22] MEDS: IPRATROPIUM NEB FS 0.5 MG/2.5 ML AMPUL.NEB NEB SCH ×4 (01:02→19:37)
[2018-09-22] MEDS: ALBUTEROL FS 2.5 MG/3 ML VIAL.NEB NEB SCH ×4 (01:02→19:37)
[2018-09-22] MEDS: OMEPRAZOLE DR 20 MG GT SCH (06:10)
[2018-09-22] MEDS: BLOOD SUGAR DIAGNOSTIC 1 EACH STRIP IN SCH ×2 (06:38→19:06)
[2018-09-22] MEDS: INSULIN LISPRO/ASPART 100 UNIT/ML CARTRIDGE SQ PRN (06:38)
[2018-09-22 07:53] VITALS: BP 107/73
[2018-09-22] MEDS: HEPARIN SODIUM, PORCINE 5000 UNITS/1 ML VIAL SQ SCH ×2 (08:39→20:47)
[2018-09-22] MEDS: FERROUS SULFATE - FOR SA ONLY 330 MG/7.5 ML UDC GT SCH ×3 (08:40→17:06)
[2018-09-22] MEDS: METFORMIN 500 MG TABLET PO SCH ×2 (08:40→17:06)
[2018-09-22] MEDS: POTASSIUM CHLORIDE 20 MEQ/15 ML GT SCH (08:40)
[2018-09-22] MEDS: FUNGI NAIL TP SCH ×2 (08:40→20:47)
[2018-09-22] MEDS: LEVETIRACETAM SOL (5 ML) 100 MG/ML UDC GT SCH ×2 (08:40→20:50)
[2018-09-22] MEDS: HYDROGEN PEROXIDE 480 ML BOTTLE TP SCH ×2 (08:40→20:47)
[2018-09-22] MEDS: BACLOFEN (10 MG) 10 MG TABLET GT SCH ×3 (08:40→17:06)
[2018-09-22] MEDS: ASCORBIC ACID 500 MG TABLET GT SCH ×2 (08:40→17:06)
[2018-09-22] MEDS: PROSTAT (PYXIS) 30 ML UDC GT SCH ×2 (08:40→17:06)
[2018-09-22] MEDS: DOCUSATE SODIUM LIQ 100 MG/10 ML UDC GT SCH ×2 (08:40→17:06)
[2018-09-22] MEDS: Z GUARD REMEDY 4 OZ OINT TP SCH ×2 (08:40→20:47)
--- NOTE | 2018-09-22 09:24 | NUR ---
RT PT RECEIVED ON MECHANICAL VENT. AMBU BAG AND SPARE TRACH AT BEDSIDE. VENT PLUGGED INTO RED OUTLET. ALARMS ON AND FUNCTIONING PROPERLY. TX GIVEN, NO ADVERSE EFFECTS NOTED. SX'D SMALL AMOUNTS OF THICK WHITE/YELLOW SECRETIONS. WILL CONTINUE TO MONITOR FOR ANY CHANGES.
[2018-09-22] MEDS: GLUCERNA 1.2 1,000 ML BOTTLE GT PRN (17:07)
[2018-09-22 19:45] VITALS: BP 115/68
[2018-09-22 20:37] VITALS: BP 105/54
[2018-09-22] MEDS: MULTIVIT W/MINERALS 1 TAB TABLET GT SCH (20:50)
[2018-09-22] MEDS: SENNOSIDES 8.6 MG TABLET GT SCH (21:12)
[2018-09-22] MEDS: BASAGLAR SQ SCH (21:13)
[2018-09-23] MEDS: IPRATROPIUM NEB FS 0.5 MG/2.5 ML AMPUL.NEB NEB SCH ×4 (01:04→20:17)
[2018-09-23] MEDS: ALBUTEROL FS 2.5 MG/3 ML VIAL.NEB NEB SCH ×4 (01:04→20:17)
[2018-09-23] MEDS: POLYVINYL ALCOHOL 15 ML BOTTLE EACHEYE SCH ×3 (05:59→17:15)
[2018-09-23] MEDS: OMEPRAZOLE DR 20 MG GT SCH (05:59)
[2018-09-23] MEDS: BLOOD SUGAR DIAGNOSTIC 1 EACH STRIP IN SCH ×2 (06:50→19:18)
[2018-09-23] MEDS: INSULIN LISPRO/ASPART 100 UNIT/ML CARTRIDGE SQ PRN (06:51)
[2018-09-23 07:53] VITALS: BP 108/76
[2018-09-23] MEDS: HEPARIN SODIUM, PORCINE 5000 UNITS/1 ML VIAL SQ SCH ×2 (08:53→21:09)
[2018-09-23] MEDS: HYDROGEN PEROXIDE 480 ML BOTTLE TP SCH ×2 (08:53→21:09)
[2018-09-23] MEDS: Z GUARD REMEDY 4 OZ OINT TP SCH ×2 (08:53→21:09)
[2018-09-23] MEDS: DOCUSATE SODIUM LIQ 100 MG/10 ML UDC GT SCH ×2 (08:53→17:15)
[2018-09-23] MEDS: ASCORBIC ACID 500 MG TABLET GT SCH ×2 (08:53→17:15)
[2018-09-23] MEDS: PROSTAT (PYXIS) 30 ML UDC GT SCH ×2 (08:53→17:15)
[2018-09-23] MEDS: FERROUS SULFATE - FOR SA ONLY 330 MG/7.5 ML UDC GT SCH ×3 (08:53→17:15)
[2018-09-23] MEDS: LEVETIRACETAM SOL (5 ML) 100 MG/ML UDC GT SCH ×2 (08:53→21:08)
[2018-09-23] MEDS: FUNGI NAIL TP SCH ×2 (08:53→21:09)
[2018-09-23] MEDS: POTASSIUM CHLORIDE 20 MEQ/15 ML GT SCH (08:53)
[2018-09-23] MEDS: METFORMIN 500 MG TABLET PO SCH ×2 (08:53→17:15)
[2018-09-23] MEDS: BACLOFEN (10 MG) 10 MG TABLET GT SCH ×3 (08:53→17:15)
[2018-09-23] MEDS: GLUCERNA 1.2 1,000 ML BOTTLE GT PRN (17:16)
[2018-09-23 19:59] VITALS: BP 129/74
[2018-09-23] MEDS: MULTIVIT W/MINERALS 1 TAB TABLET GT SCH (21:08)
[2018-09-23] MEDS: SENNOSIDES 8.6 MG TABLET GT SCH (21:09)
[2018-09-23] MEDS: BASAGLAR SQ SCH (22:31)
[2018-09-24] MEDS: POLYVINYL ALCOHOL 15 ML BOTTLE EACHEYE SCH ×5 (00:13→23:52)
[2018-09-24] MEDS: ALBUTEROL FS 2.5 MG/3 ML VIAL.NEB NEB SCH ×4 (00:36→19:31)
[2018-09-24] MEDS: IPRATROPIUM NEB FS 0.5 MG/2.5 ML AMPUL.NEB NEB SCH ×4 (00:36→19:31)
[2018-09-24] MEDS: OMEPRAZOLE DR 20 MG GT SCH (05:40)
[2018-09-24] MEDS: BLOOD SUGAR DIAGNOSTIC 1 EACH STRIP IN SCH ×2 (06:42→18:10)
[2018-09-24] MEDS: INSULIN LISPRO/ASPART 100 UNIT/ML CARTRIDGE SQ PRN ×2 (06:45→18:12)
[2018-09-24 07:31] VITALS: BP 92/62
[2018-09-24] MEDS: LEVETIRACETAM SOL (5 ML) 100 MG/ML UDC GT SCH ×2 (09:19→21:01)
[2018-09-24] MEDS: DOCUSATE SODIUM LIQ 100 MG/10 ML UDC GT SCH ×2 (09:19→17:40)
[2018-09-24] MEDS: PROSTAT (PYXIS) 30 ML UDC GT SCH ×2 (09:19→17:40)
[2018-09-24] MEDS: POTASSIUM CHLORIDE 20 MEQ/15 ML GT SCH (09:19)
[2018-09-24] MEDS: BACLOFEN (10 MG) 10 MG TABLET GT SCH ×3 (09:19→17:40)
[2018-09-24] MEDS: FERROUS SULFATE - FOR SA ONLY 330 MG/7.5 ML UDC GT SCH ×3 (09:19→17:40)
[2018-09-24] MEDS: ASCORBIC ACID 500 MG TABLET GT SCH ×2 (09:19→17:40)
[2018-09-24] MEDS: HYDROGEN PEROXIDE 480 ML BOTTLE TP SCH ×2 (09:20→21:02)
[2018-09-24] MEDS: Z GUARD REMEDY 4 OZ OINT TP SCH ×2 (09:20→21:02)
[2018-09-24] MEDS: HEPARIN SODIUM, PORCINE 5000 UNITS/1 ML VIAL SQ SCH ×2 (09:20→21:02)
[2018-09-24] MEDS: FUNGI NAIL TP SCH ×2 (09:20→21:02)
[2018-09-24] MEDS: METFORMIN 500 MG TABLET PO SCH ×2 (09:20→17:40)
[2018-09-24 10:00] VITALS: BP 107/69
[2018-09-24] MEDS: GLUCERNA 1.2 1,000 ML BOTTLE GT PRN (17:57)
[2018-09-24 20:00] VITALS: BP 106/63
[2018-09-24] MEDS: MULTIVIT W/MINERALS 1 TAB TABLET GT SCH (21:01)
[2018-09-24] MEDS: BASAGLAR SQ SCH (21:02)
[2018-09-24] MEDS: SENNOSIDES 8.6 MG TABLET GT SCH (21:02)
--- NOTE | 2018-09-24 21:02 | NUR ---
RT NOTE PATIENT WAS RECEIVED ON CONTINUOUS VENT SUPPORT ON NOTED VENT SETTINGS. HHN INLINE TREATMENT WAS GIVEN, NO ADVERSE REACTION NOTED ,PRN SUCTION WAS DONE. TRACH TUBE PATENT AND SECURED. ALARMS ON AND AUDIBLE. ZOIE AND KAREN ROTHMAN AT [facility]. WILL CONTINUE TO MONITOR PATIENT Addendum: 09/24/18 at 2102 by EDNA JUNIOR RT Amended: Links added.
[2018-09-25] MEDS: ALBUTEROL FS 2.5 MG/3 ML VIAL.NEB NEB SCH ×4 (01:25→19:59)
[2018-09-25] MEDS: IPRATROPIUM NEB FS 0.5 MG/2.5 ML AMPUL.NEB NEB SCH ×4 (01:25→19:59)
[2018-09-25] MEDS: POLYVINYL ALCOHOL 15 ML BOTTLE EACHEYE SCH ×4 (05:53→23:44)
[2018-09-25] MEDS: OMEPRAZOLE DR 20 MG GT SCH (05:53)
[2018-09-25] MEDS: BLOOD SUGAR DIAGNOSTIC 1 EACH STRIP IN SCH ×2 (06:08→18:26)
[2018-09-25] MEDS: INSULIN LISPRO/ASPART 100 UNIT/ML CARTRIDGE SQ PRN ×2 (06:08→18:27)
[2018-09-25 08:04] VITALS: BP 113/76
[2018-09-25] MEDS: HEPARIN SODIUM, PORCINE 5000 UNITS/1 ML VIAL SQ SCH ×2 (09:00→21:19)
[2018-09-25] MEDS: PROSTAT (PYXIS) 30 ML UDC GT SCH ×2 (09:00→16:14)
[2018-09-25] MEDS: METFORMIN 500 MG TABLET PO SCH ×2 (09:00→16:14)
[2018-09-25] MEDS: HYDROGEN PEROXIDE 480 ML BOTTLE TP SCH ×2 (09:00→21:20)
[2018-09-25] MEDS: LEVETIRACETAM SOL (5 ML) 100 MG/ML UDC GT SCH ×2 (09:00→21:19)
[2018-09-25] MEDS: POTASSIUM CHLORIDE 20 MEQ/15 ML GT SCH (09:00)
[2018-09-25] MEDS: BACLOFEN (10 MG) 10 MG TABLET GT SCH ×3 (09:00→16:14)
[2018-09-25] MEDS: ASCORBIC ACID 500 MG TABLET GT SCH ×2 (09:00→16:14)
[2018-09-25] MEDS: Z GUARD REMEDY 4 OZ OINT TP SCH ×2 (09:00→21:20)
[2018-09-25] MEDS: FUNGI NAIL TP SCH ×2 (09:00→21:20)
[2018-09-25] MEDS: DOCUSATE SODIUM LIQ 100 MG/10 ML UDC GT SCH ×2 (09:58→16:14)
[2018-09-25] MEDS: FERROUS SULFATE - FOR SA ONLY 330 MG/7.5 ML UDC GT SCH ×3 (09:58→16:14)
[2018-09-25 19:36] VITALS: BP 98/69
[2018-09-25] MEDS: MULTIVIT W/MINERALS 1 TAB TABLET GT SCH (21:19)
[2018-09-25] MEDS: BASAGLAR SQ SCH (21:20)
[2018-09-25] MEDS: SENNOSIDES 8.6 MG TABLET GT SCH (21:20)
[2018-09-26] MEDS: IPRATROPIUM NEB FS 0.5 MG/2.5 ML AMPUL.NEB NEB SCH ×4 (01:42→20:09)
[2018-09-26] MEDS: ALBUTEROL FS 2.5 MG/3 ML VIAL.NEB NEB SCH ×4 (01:42→20:09)
[2018-09-26] MEDS: POLYVINYL ALCOHOL 15 ML BOTTLE EACHEYE SCH ×4 (06:15→23:55)
[2018-09-26] MEDS: OMEPRAZOLE DR 20 MG GT SCH (06:15)
[2018-09-26] MEDS: BLOOD SUGAR DIAGNOSTIC 1 EACH STRIP IN SCH ×2 (06:16→18:21)
[2018-09-26] MEDS: INSULIN LISPRO/ASPART 100 UNIT/ML CARTRIDGE SQ PRN (06:16)
[2018-09-26 07:50] VITALS: BP 104/60
[2018-09-26] MEDS: POTASSIUM CHLORIDE 20 MEQ/15 ML GT SCH (09:17)
[2018-09-26] MEDS: FUNGI NAIL TP SCH ×2 (09:17→21:29)
[2018-09-26] MEDS: HEPARIN SODIUM, PORCINE 5000 UNITS/1 ML VIAL SQ SCH ×2 (09:17→21:29)
[2018-09-26] MEDS: BACLOFEN (10 MG) 10 MG TABLET GT SCH ×3 (09:17→17:58)
[2018-09-26] MEDS: FERROUS SULFATE - FOR SA ONLY 330 MG/7.5 ML UDC GT SCH ×3 (09:17→17:58)
[2018-09-26] MEDS: PROSTAT (PYXIS) 30 ML UDC GT SCH ×2 (09:17→17:59)
[2018-09-26] MEDS: Z GUARD REMEDY 4 OZ OINT TP SCH ×2 (09:17→21:29)
[2018-09-26] MEDS: ASCORBIC ACID 500 MG TABLET GT SCH ×2 (09:17→17:59)
[2018-09-26] MEDS: DOCUSATE SODIUM LIQ 100 MG/10 ML UDC GT SCH ×2 (09:17→17:58)
[2018-09-26] MEDS: HYDROGEN PEROXIDE 480 ML BOTTLE TP SCH ×2 (09:17→21:29)
[2018-09-26] MEDS: LEVETIRACETAM SOL (5 ML) 100 MG/ML UDC GT SCH ×2 (09:17→21:28)
[2018-09-26] MEDS: METFORMIN 500 MG TABLET PO SCH ×2 (09:17→17:59)
--- NOTE | 2018-09-26 15:20 | NUR ---
PT REC'D TRACHED ON [facility] VENT ON AC MODE. NO RESP DISTRESS OR SOB NOTED. TRACH PATENT AND SECURED. SX'D FOR MOD AMT OF THICK YELLOW SECRETIONS. ALARMS ARE SET AND AUDIBLE. VENT PLUGGED INTO RED OUTLET. AMBU BAG BEDSIDE. WILL CONTINUE TO MONITOR. Addendum: 09/26/18 at 1521 by PETER MARADIAGA RT Amended: Links added.
[2018-09-26 20:25] VITALS: BP 107/73
[2018-09-26] MEDS: MULTIVIT W/MINERALS 1 TAB TABLET GT SCH (21:28)
[2018-09-26] MEDS: SENNOSIDES 8.6 MG TABLET GT SCH (21:29)
[2018-09-26] MEDS: BASAGLAR SQ SCH (21:29)
[2018-09-27] MEDS: ALBUTEROL FS 2.5 MG/3 ML VIAL.NEB NEB SCH ×4 (00:48→20:05)
[2018-09-27] MEDS: IPRATROPIUM NEB FS 0.5 MG/2.5 ML AMPUL.NEB NEB SCH ×4 (00:48→20:05)
[2018-09-27] MEDS: POLYVINYL ALCOHOL 15 ML BOTTLE EACHEYE SCH ×4 (05:50→23:55)
[2018-09-27] MEDS: OMEPRAZOLE DR 20 MG GT SCH (05:50)
[2018-09-27] MEDS: BLOOD SUGAR DIAGNOSTIC 1 EACH STRIP IN SCH ×2 (06:03→18:49)
[2018-09-27] MEDS: INSULIN LISPRO/ASPART 100 UNIT/ML CARTRIDGE SQ PRN ×2 (06:05→18:50)
[2018-09-27 07:42] VITALS: BP 107/66
[2018-09-27] MEDS: METFORMIN 500 MG TABLET PO SCH (08:31)
[2018-09-27] MEDS: BACLOFEN (10 MG) 10 MG TABLET GT SCH ×3 (08:31→16:22)
[2018-09-27] MEDS: POTASSIUM CHLORIDE 20 MEQ/15 ML GT SCH (08:31)
[2018-09-27] MEDS: ASCORBIC ACID 500 MG TABLET GT SCH ×2 (08:31→16:22)
[2018-09-27] MEDS: DOCUSATE SODIUM LIQ 100 MG/10 ML UDC GT SCH ×2 (08:31→16:21)
[2018-09-27] MEDS: FERROUS SULFATE - FOR SA ONLY 330 MG/7.5 ML UDC GT SCH ×3 (08:31→16:22)
[2018-09-27] MEDS: LEVETIRACETAM SOL (5 ML) 100 MG/ML UDC GT SCH ×2 (08:31→21:39)
[2018-09-27] MEDS: PROSTAT (PYXIS) 30 ML UDC GT SCH ×2 (08:31→16:22)
[2018-09-27] MEDS: HEPARIN SODIUM, PORCINE 5000 UNITS/1 ML VIAL SQ SCH ×2 (08:33→21:40)
[2018-09-27] MEDS: HYDROGEN PEROXIDE 480 ML BOTTLE TP SCH ×2 (09:00→21:40)
[2018-09-27] MEDS: FUNGI NAIL TP SCH ×2 (09:00→21:40)
[2018-09-27] MEDS: Z GUARD REMEDY 4 OZ OINT TP SCH ×2 (09:00→21:40)
[2018-09-27] MEDS: METFORMIN 850 MG TABLET GT SCH (16:22)
--- NOTE | 2018-09-27 20:05 | NUR ---
RT Pt received trach'd and on [facility] vent w charted settings. Vent is plugged into red outlet w ambubag @ hob. Alarms are set and audible. Trach is secure and patent.. Hhn tx given and pt sx'd w no adverse reactions. No respiratory distress noted @ this time. Will continue to monitor. Addendum: 09/27/18 at 2134 by ANJUM FONG RT Amended: Links added.
[2018-09-27 20:24] VITALS: BP 109/73
[2018-09-27] MEDS: MULTIVIT W/MINERALS 1 TAB TABLET GT SCH (21:39)
[2018-09-27] MEDS: SENNOSIDES 8.6 MG TABLET GT SCH (21:40)
[2018-09-27] MEDS: BASAGLAR SQ SCH (21:51)
[2018-09-27] MEDS: POLYETHYLENE GLYCOL 3350 17 GM POWD.PACK GT PRN (23:00)
[2018-09-28] MEDS: IPRATROPIUM NEB FS 0.5 MG/2.5 ML AMPUL.NEB NEB SCH ×4 (01:24→19:40)
[2018-09-28] MEDS: ALBUTEROL FS 2.5 MG/3 ML VIAL.NEB NEB SCH ×4 (01:24→19:40)
[2018-09-28] MEDS: OMEPRAZOLE DR 20 MG GT SCH (05:45)
[2018-09-28] MEDS: POLYVINYL ALCOHOL 15 ML BOTTLE EACHEYE SCH ×4 (05:45→23:20)
[2018-09-28] MEDS: GLUCERNA 1.2 1,000 ML BOTTLE GT PRN ×2 (06:15→23:33)
[2018-09-28] MEDS: INSULIN LISPRO/ASPART 100 UNIT/ML CARTRIDGE SQ PRN ×2 (06:47→19:13)
[2018-09-28] MEDS: BLOOD SUGAR DIAGNOSTIC 1 EACH STRIP IN SCH ×2 (06:47→19:13)
[2018-09-28] MEDS: BISACODYL SUPP (10 MG) 10 MG/SUPP.RECT SUPP.RECT RC PRN (06:59)
[2018-09-28 07:38] VITALS: BP 99/68
[2018-09-28] MEDS: DOCUSATE SODIUM LIQ 100 MG/10 ML UDC GT SCH ×2 (08:36→17:49)
[2018-09-28] MEDS: LEVETIRACETAM SOL (5 ML) 100 MG/ML UDC GT SCH ×2 (08:36→20:47)
[2018-09-28] MEDS: BACLOFEN (10 MG) 10 MG TABLET GT SCH ×3 (08:36→17:49)
[2018-09-28] MEDS: POTASSIUM CHLORIDE 20 MEQ/15 ML GT SCH (08:36)
[2018-09-28] MEDS: ASCORBIC ACID 500 MG TABLET GT SCH ×2 (08:36→17:49)
[2018-09-28] MEDS: PROSTAT (PYXIS) 30 ML UDC GT SCH ×2 (08:36→17:49)
[2018-09-28] MEDS: FERROUS SULFATE - FOR SA ONLY 330 MG/7.5 ML UDC GT SCH ×3 (08:36→17:49)
[2018-09-28] MEDS: METFORMIN 850 MG TABLET GT SCH ×2 (08:36→17:49)
[2018-09-28] MEDS: HEPARIN SODIUM, PORCINE 5000 UNITS/1 ML VIAL SQ SCH ×2 (08:37→20:48)
[2018-09-28] MEDS: FUNGI NAIL TP SCH ×2 (09:52→20:48)
[2018-09-28] MEDS: HYDROGEN PEROXIDE 480 ML BOTTLE TP SCH ×2 (09:52→20:48)
[2018-09-28] MEDS: Z GUARD REMEDY 4 OZ OINT TP SCH ×2 (09:53→20:48)
[2018-09-28 20:41] VITALS: BP 129/86
[2018-09-28] MEDS: MULTIVIT W/MINERALS 1 TAB TABLET GT SCH (20:47)
[2018-09-28] MEDS: BASAGLAR SQ SCH (21:04)
[2018-09-28] MEDS: SENNOSIDES 8.6 MG TABLET GT SCH (21:04)
[2018-09-28 22:30] VITALS: BP 133/70
[2018-09-28] MEDS: ACETAMINOPHEN 650 MG/20 ML UDC- SA PATIENTS-FEVER ONLY GT PRN (22:30)
--- NOTE | 2018-09-28 22:30 | NUR ---
Pt noted with facial redness, warm to touch- temp checked noted with Axillary Temp of 103.0 , PRN Tylenol as ordered given, cooling measures provided, bed bath given, pt with no s/sx of respiratory distress, O2 99% HR 105 , BP: 133/70, global coordinator notified- will closely monitor pt and re-check Vitals after an hour.Pt shows no s/sx of pain or discomfort.
[2018-09-28 23:30] VITALS: BP 132/70
[2018-09-29] MEDS: IPRATROPIUM NEB FS 0.5 MG/2.5 ML AMPUL.NEB NEB SCH ×4 (01:19→19:46)
[2018-09-29] MEDS: ALBUTEROL FS 2.5 MG/3 ML VIAL.NEB NEB SCH ×4 (01:20→19:46)
[2018-09-29 05:03] VITALS: BP 130/76
[2018-09-29] MEDS: OMEPRAZOLE DR 20 MG GT SCH (05:28)
[2018-09-29] MEDS: POLYVINYL ALCOHOL 15 ML BOTTLE EACHEYE SCH ×3 (05:28→18:48)
[2018-09-29] MEDS: BLOOD SUGAR DIAGNOSTIC 1 EACH STRIP IN SCH ×2 (06:24→18:49)
[2018-09-29] MEDS: INSULIN LISPRO/ASPART 100 UNIT/ML CARTRIDGE SQ PRN ×2 (06:25→18:49)
[2018-09-29 07:22] VITALS: BP 113/73
--- NOTE | 2018-09-29 07:43 | NUR ---
Dr. Dsouza notified by night cleaner charge nurse regarding elevated temperature last night with new order for BCx2, UA, CBC and BMP. All orders noted and carried out. Left a message to resident's sister Tosin regarding change of condition.
--- NOTE | 2018-09-29 07:52 | NUR ---
PT RECEIVED ON [facility] VENT ON THE FOLLOWING NOTED SETTINGS. NO RESP DISTRESS OR SOB NOTED AT THIS TIME. PT SX'D. BREATHING TX GIVEN, NO ADVERSE REACTIONS NOTED. SPARE TRACH AND AMBU BAG ARE AT BEDSIDE. WILL CONT TO MONITOR PT. VENT IS PLUGGED INTO RED OUTLET AND ALARMS ARE ON AND AUDIBLE. Addendum: 09/29/18 at 0752 by BARI GARZA RT Amended: Links added.
[2018-09-29 09:00] LABS: BASOPHILS # (AUTO) 0.1 /CMM (0.0-0.2); BASOPHILS % (AUTO) 0.9 % (0.0-2.0); EOSINOPHILS % (AUTO) 1.1 % (0.0-6.0); HEMATOCRIT 37 % (33-45); HEMOGLOBIN 12.2 g/dL (11.5-14.8); LYMPHOCYTES % (AUTO) 13.7 % (20.0-44.0); MEAN CORPUSCULAR HGB CONC 33 g/dl (31.0-36.0); MEAN CORPUSCULAR VOLUME 93 fL (82-100); MONOCYTES # (AUTO) 0.7 /CMM (0.1-1.30); MONOCYTES % (AUTO) 4.8 % (2.0-12.0); NEUTROPHILS # (AUTO) 11.9 /CMM (1.8-8.9); NEUTROPHILS % (AUTO) 79.5 % (43.0-81.0); PLATELET COUNT (AUTO) 265 /CMM (150-450); RED BLOOD CELL COUNT(AUTO) 3.97 MIL/uL (4.0-5.2); WHITE BLOOD COUNT (AUTO) 14.9 K/uL (4.3-11.0)
[2018-09-29] MEDS: Z GUARD REMEDY 4 OZ OINT TP SCH ×2 (09:00→20:44)
[2018-09-29] MEDS: HYDROGEN PEROXIDE 480 ML BOTTLE TP SCH ×2 (09:00→20:44)
[2018-09-29] MEDS: FUNGI NAIL TP SCH ×2 (09:00→20:44)
[2018-09-29 09:13] LABS: CALCIUM, SERUM 9.8 mg/dL (8.5-10.1); CREATININE 0.7 mg/dL (0.6-1.3); POTASSIUM 3.9 mmol/L (3.5-5.1)
[2018-09-29] MEDS: POTASSIUM CHLORIDE 20 MEQ/15 ML GT SCH (09:54)
[2018-09-29] MEDS: FERROUS SULFATE - FOR SA ONLY 330 MG/7.5 ML UDC GT SCH ×3 (09:54→16:43)
[2018-09-29] MEDS: LEVETIRACETAM SOL (5 ML) 100 MG/ML UDC GT SCH ×2 (09:54→20:44)
[2018-09-29] MEDS: ASCORBIC ACID 500 MG TABLET GT SCH ×2 (09:54→16:44)
[2018-09-29] MEDS: PROSTAT (PYXIS) 30 ML UDC GT SCH ×2 (09:54→16:44)
[2018-09-29] MEDS: METFORMIN 850 MG TABLET GT SCH ×2 (09:54→16:43)
[2018-09-29] MEDS: DOCUSATE SODIUM LIQ 100 MG/10 ML UDC GT SCH ×2 (09:54→16:43)
[2018-09-29] MEDS: HEPARIN SODIUM, PORCINE 5000 UNITS/1 ML VIAL SQ SCH ×2 (09:54→20:44)
[2018-09-29] MEDS: BACLOFEN (10 MG) 10 MG TABLET GT SCH ×3 (09:54→16:43)
[2018-09-29 15:03] LABS: APPEARANCE,URINE CLEAR (CLEAR); BILIRUBIN,URINE NEGATIVE (NEGATIVE); BLOOD, URINE 3+ Ery/uL (NEGATIVE); COLOR,URINE YELLOW (YELLOW); KETONES,URINE NEGATIVE (NEGATIVE); LEUKOCYTE ESTERASE ,URINE 3+ (NEGATIVE); NITRITE, URINE POSITIVE (NEGATIVE); PROTEIN,URINE NEGATIVE (NEGATIVE); UGLUCOSE NEGATIVE (NEGATIVE); UROBILINOGEN,URINE 0.2 EU/dL (0.2)
[2018-09-29 15:38] LABS: BACTERIA,URINE Moderate /HPF (None Seen); CALCIUM OXALATE CRYSTALS,UR Few /HPF (None Seen); CALCIUM PHOSPHATE CRYSTALS,UR Few /HPF (None Seen); SQUAMOUS EPITHELIAL CELL,UR Few /HPF (None Seen)
--- NOTE | 2018-09-29 18:36 | NUR ---
Reported CBC , BMP and UA result to LORENZO Paulino, ID. New order given to start patient on Rocephin and chest Xray in AM. Orders noted and carried out.
[2018-09-29 19:45] VITALS: BP 108/72
[2018-09-29] MEDS: MULTIVIT W/MINERALS 1 TAB TABLET GT SCH (20:44)
--- NOTE | 2018-09-29 21:00 | NUR ---
RN NOTES Started pt on Rocephin 1gm IV as ordered with no A/R noted. Saline lock to left hand, aseptic technique observed.
[2018-09-29] MEDS: BASAGLAR SQ SCH (21:15)
[2018-09-29] MEDS: SENNOSIDES 8.6 MG TABLET GT SCH (21:15)
[2018-09-29] MEDS: CEFTRIAXONE 1 G in IV D5W 50 ML IV SCH (21:34)
[2018-09-30] MEDS: POLYVINYL ALCOHOL 15 ML BOTTLE EACHEYE SCH ×5 (00:22→23:17)
[2018-09-30] MEDS: ALBUTEROL FS 2.5 MG/3 ML VIAL.NEB NEB SCH ×4 (02:18→19:35)
[2018-09-30] MEDS: IPRATROPIUM NEB FS 0.5 MG/2.5 ML AMPUL.NEB NEB SCH ×4 (02:18→19:35)
[2018-09-30] MEDS: GLUCERNA 1.2 1,000 ML BOTTLE GT PRN (03:55)
[2018-09-30] MEDS: OMEPRAZOLE DR 20 MG GT SCH (05:22)
[2018-09-30] MEDS: BLOOD SUGAR DIAGNOSTIC 1 EACH STRIP IN SCH ×2 (07:14→19:05)
[2018-09-30] MEDS: INSULIN LISPRO/ASPART 100 UNIT/ML CARTRIDGE SQ PRN ×2 (07:15→19:08)
[2018-09-30 08:12] VITALS: BP 101/67
[2018-09-30] MEDS: DOCUSATE SODIUM LIQ 100 MG/10 ML UDC GT SCH ×2 (08:32→16:53)
[2018-09-30] MEDS: FERROUS SULFATE - FOR SA ONLY 330 MG/7.5 ML UDC GT SCH ×3 (08:32→16:53)
[2018-09-30] MEDS: LEVETIRACETAM SOL (5 ML) 100 MG/ML UDC GT SCH ×2 (08:34→20:46)
[2018-09-30] MEDS: METFORMIN 850 MG TABLET GT SCH ×2 (08:34→16:53)
[2018-09-30] MEDS: PROSTAT (PYXIS) 30 ML UDC GT SCH ×2 (08:35→16:53)
[2018-09-30] MEDS: BACLOFEN (10 MG) 10 MG TABLET GT SCH ×3 (08:35→16:53)
[2018-09-30] MEDS: POTASSIUM CHLORIDE 20 MEQ/15 ML GT SCH (08:35)
[2018-09-30] MEDS: ASCORBIC ACID 500 MG TABLET GT SCH ×2 (08:36→16:53)
[2018-09-30] MEDS: HEPARIN SODIUM, PORCINE 5000 UNITS/1 ML VIAL SQ SCH ×2 (08:51→20:47)
[2018-09-30] MEDS: Z GUARD REMEDY 4 OZ OINT TP SCH ×2 (09:00→20:47)
[2018-09-30] MEDS: FUNGI NAIL TP SCH ×2 (09:00→20:47)
[2018-09-30] MEDS: HYDROGEN PEROXIDE 480 ML BOTTLE TP SCH ×2 (09:00→20:47)
[2018-09-30 20:01] VITALS: BP 105/64
[2018-09-30] MEDS: MULTIVIT W/MINERALS 1 TAB TABLET GT SCH (20:46)
[2018-09-30] MEDS: CEFTRIAXONE 1 G in IV D5W 50 ML IV SCH (21:00)
[2018-09-30] MEDS: BASAGLAR SQ SCH (21:04)
[2018-09-30] MEDS: SENNOSIDES 8.6 MG TABLET GT SCH (21:04)
[2018-10-01] MEDS: IPRATROPIUM NEB FS 0.5 MG/2.5 ML AMPUL.NEB NEB SCH ×4 (01:29→19:40)
[2018-10-01] MEDS: ALBUTEROL FS 2.5 MG/3 ML VIAL.NEB NEB SCH ×4 (01:30→19:40)
[2018-10-01] MEDS: POLYVINYL ALCOHOL 15 ML BOTTLE EACHEYE SCH ×3 (05:13→18:25)
[2018-10-01] MEDS: POLYETHYLENE GLYCOL 3350 17 GM POWD.PACK GT PRN (05:13)
[2018-10-01] MEDS: OMEPRAZOLE DR 20 MG GT SCH (05:13)
[2018-10-01] MEDS: GLUCERNA 1.2 1,000 ML BOTTLE GT PRN ×2 (05:13→21:43)
[2018-10-01] MEDS: BLOOD SUGAR DIAGNOSTIC 1 EACH STRIP IN SCH ×2 (06:22→18:59)
[2018-10-01] MEDS: BISACODYL SUPP (10 MG) 10 MG/SUPP.RECT SUPP.RECT RC PRN (06:22)
[2018-10-01] MEDS: INSULIN LISPRO/ASPART 100 UNIT/ML CARTRIDGE SQ PRN ×2 (06:23→19:00)
[2018-10-01 07:23] VITALS: BP 111/81
[2018-10-01] MEDS: BACLOFEN (10 MG) 10 MG TABLET GT SCH ×3 (08:33→16:53)
[2018-10-01] MEDS: PROSTAT (PYXIS) 30 ML UDC GT SCH ×2 (08:33→16:54)
[2018-10-01] MEDS: ASCORBIC ACID 500 MG TABLET GT SCH ×2 (08:33→16:53)
[2018-10-01] MEDS: LEVETIRACETAM SOL (5 ML) 100 MG/ML UDC GT SCH ×2 (08:33→21:03)
[2018-10-01] MEDS: DOCUSATE SODIUM LIQ 100 MG/10 ML UDC GT SCH ×2 (08:33→16:53)
[2018-10-01] MEDS: FERROUS SULFATE - FOR SA ONLY 330 MG/7.5 ML UDC GT SCH ×3 (08:33→16:53)
[2018-10-01] MEDS: POTASSIUM CHLORIDE 20 MEQ/15 ML GT SCH (08:33)
[2018-10-01] MEDS: METFORMIN 850 MG TABLET GT SCH ×2 (08:33→16:53)
[2018-10-01] MEDS: HEPARIN SODIUM, PORCINE 5000 UNITS/1 ML VIAL SQ SCH ×2 (08:35→21:04)
[2018-10-01] MEDS: FUNGI NAIL TP SCH ×2 (09:00→21:04)
[2018-10-01] MEDS: HYDROGEN PEROXIDE 480 ML BOTTLE TP SCH ×2 (09:00→21:04)
[2018-10-01] MEDS: Z GUARD REMEDY 4 OZ OINT TP SCH ×2 (09:00→21:04)
[2018-10-01 20:03] VITALS: BP 110/68
[2018-10-01] MEDS: CEFTRIAXONE 1 G in IV D5W 50 ML IV SCH (21:00)
[2018-10-01] MEDS: MULTIVIT W/MINERALS 1 TAB TABLET GT SCH (21:03)
[2018-10-01] MEDS: SENNOSIDES 8.6 MG TABLET GT SCH (21:04)
[2018-10-01] MEDS: BASAGLAR SQ SCH (21:05)
[2018-10-02] MEDS: POLYVINYL ALCOHOL 15 ML BOTTLE EACHEYE SCH ×5 (00:40→23:30)
[2018-10-02] MEDS: ALBUTEROL FS 2.5 MG/3 ML VIAL.NEB NEB SCH ×4 (01:41→19:21)
[2018-10-02] MEDS: IPRATROPIUM NEB FS 0.5 MG/2.5 ML AMPUL.NEB NEB SCH ×4 (01:41→19:21)
[2018-10-02] MEDS: OMEPRAZOLE DR 20 MG GT SCH (05:49)
[2018-10-02] MEDS: BLOOD SUGAR DIAGNOSTIC 1 EACH STRIP IN SCH ×2 (06:00→18:54)
[2018-10-02] MEDS: INSULIN LISPRO/ASPART 100 UNIT/ML CARTRIDGE SQ PRN ×2 (06:00→18:55)
[2018-10-02 07:43] VITALS: BP 107/68
[2018-10-02] MEDS: DOCUSATE SODIUM LIQ 100 MG/10 ML UDC GT SCH ×2 (09:22→16:34)
[2018-10-02] MEDS: FERROUS SULFATE - FOR SA ONLY 330 MG/7.5 ML UDC GT SCH ×3 (09:22→16:34)
[2018-10-02] MEDS: LEVETIRACETAM SOL (5 ML) 100 MG/ML UDC GT SCH ×2 (09:23→21:19)
[2018-10-02] MEDS: METFORMIN 850 MG TABLET GT SCH ×2 (09:23→16:34)
[2018-10-02] MEDS: BACLOFEN (10 MG) 10 MG TABLET GT SCH ×3 (09:24→16:34)
[2018-10-02] MEDS: POTASSIUM CHLORIDE 20 MEQ/15 ML GT SCH (09:25)
[2018-10-02] MEDS: PROSTAT (PYXIS) 30 ML UDC GT SCH ×2 (09:25→16:34)
[2018-10-02] MEDS: ASCORBIC ACID 500 MG TABLET GT SCH ×2 (09:25→16:34)
[2018-10-02] MEDS: HEPARIN SODIUM, PORCINE 5000 UNITS/1 ML VIAL SQ SCH ×2 (09:27→21:20)
[2018-10-02] MEDS: Z GUARD REMEDY 4 OZ OINT TP SCH ×2 (09:27→21:20)
[2018-10-02] MEDS: FUNGI NAIL TP SCH ×2 (09:27→21:20)
[2018-10-02] MEDS: HYDROGEN PEROXIDE 480 ML BOTTLE TP SCH ×2 (09:27→21:20)
[2018-10-02 20:03] VITALS: BP 122/73
[2018-10-02] MEDS: CEFTRIAXONE 1 G in IV D5W 50 ML IV SCH (21:00)
[2018-10-02] MEDS: MULTIVIT W/MINERALS 1 TAB TABLET GT SCH (21:19)
[2018-10-02] MEDS: SENNOSIDES 8.6 MG TABLET GT SCH (21:20)
[2018-10-02] MEDS: BASAGLAR SQ SCH (21:21)
[2018-10-03] MEDS: ALBUTEROL FS 2.5 MG/3 ML VIAL.NEB NEB SCH ×4 (01:42→19:30)
[2018-10-03] MEDS: IPRATROPIUM NEB FS 0.5 MG/2.5 ML AMPUL.NEB NEB SCH ×4 (01:42→19:30)
[2018-10-03] MEDS: POLYVINYL ALCOHOL 15 ML BOTTLE EACHEYE SCH ×4 (05:34→23:24)
[2018-10-03] MEDS: OMEPRAZOLE DR 20 MG GT SCH (05:34)
[2018-10-03] MEDS: BLOOD SUGAR DIAGNOSTIC 1 EACH STRIP IN SCH ×2 (06:31→18:11)
[2018-10-03 07:27] VITALS: BP 100/70
--- NOTE | 2018-10-03 08:42 | NUR ---
RT Pt rec'd trach'd and on [facility] vent w charted settings. No respiratory distress noted at this time. Vent is plugged into red outlet with BVM by hob. Alarms are set and audible. Trach is secure and patent. Hhn tx given and pt sx'd w no adverse reactions. Will continue to monitor. Addendum: 10/03/18 at 0842 by ARIS CRUZ RT Amended: Links added.
[2018-10-03] MEDS: ASCORBIC ACID 500 MG TABLET GT SCH ×2 (08:50→16:35)
[2018-10-03] MEDS: BACLOFEN (10 MG) 10 MG TABLET GT SCH ×3 (08:50→16:35)
[2018-10-03] MEDS: POTASSIUM CHLORIDE 20 MEQ/15 ML GT SCH (08:50)
[2018-10-03] MEDS: LEVETIRACETAM SOL (5 ML) 100 MG/ML UDC GT SCH ×2 (08:50→20:17)
[2018-10-03] MEDS: FERROUS SULFATE - FOR SA ONLY 330 MG/7.5 ML UDC GT SCH ×3 (08:50→16:35)
[2018-10-03] MEDS: METFORMIN 850 MG TABLET GT SCH ×2 (08:50→16:35)
[2018-10-03] MEDS: DOCUSATE SODIUM LIQ 100 MG/10 ML UDC GT SCH ×2 (08:50→16:35)
[2018-10-03] MEDS: PROSTAT (PYXIS) 30 ML UDC GT SCH ×2 (08:50→16:35)
[2018-10-03] MEDS: HYDROGEN PEROXIDE 480 ML BOTTLE TP SCH ×2 (08:51→20:18)
[2018-10-03] MEDS: HEPARIN SODIUM, PORCINE 5000 UNITS/1 ML VIAL SQ SCH ×2 (08:51→20:18)
[2018-10-03] MEDS: FUNGI NAIL TP SCH ×2 (08:51→20:18)
[2018-10-03] MEDS: Z GUARD REMEDY 4 OZ OINT TP SCH ×2 (08:51→20:18)
[2018-10-03 19:42] VITALS: BP 127/74
[2018-10-03] MEDS: MULTIVIT W/MINERALS 1 TAB TABLET GT SCH (20:17)
[2018-10-03] MEDS: CEFTRIAXONE 1 G in IV D5W 50 ML IV SCH (21:00)
[2018-10-03] MEDS: SENNOSIDES 8.6 MG TABLET GT SCH (21:24)
[2018-10-03] MEDS: BASAGLAR SQ SCH (21:24)
[2018-10-04] MEDS: GLUCERNA 1.2 1,000 ML BOTTLE GT PRN (00:58)
[2018-10-04] MEDS: IPRATROPIUM NEB FS 0.5 MG/2.5 ML AMPUL.NEB NEB SCH ×4 (01:22→19:39)
[2018-10-04] MEDS: ALBUTEROL FS 2.5 MG/3 ML VIAL.NEB NEB SCH ×4 (01:22→19:39)
[2018-10-04] MEDS: OMEPRAZOLE DR 20 MG GT SCH (05:09)
[2018-10-04] MEDS: POLYVINYL ALCOHOL 15 ML BOTTLE EACHEYE SCH ×4 (05:09→23:32)
[2018-10-04] MEDS: BLOOD SUGAR DIAGNOSTIC 1 EACH STRIP IN SCH ×2 (06:26→18:11)
--- NOTE | 2018-10-04 07:19 | NUR ---
RT Pt received trach on the vent with noted settings. Pt is awake but does not follow commands. Vent alarms are set and audible with BVM by bedside. OPERATIONS TRAINER cuff pressure noted. Vent is plugged into red outlet. No respiratory distress noted at this time. Addendum: 10/04/18 at 1052 by SAE ERNST RT Amended: Links added.
[2018-10-04 07:54] VITALS: BP 105/66
[2018-10-04] MEDS: FERROUS SULFATE - FOR SA ONLY 330 MG/7.5 ML UDC GT SCH ×3 (08:37→16:50)
[2018-10-04] MEDS: METFORMIN 850 MG TABLET GT SCH ×2 (08:37→16:50)
[2018-10-04] MEDS: HEPARIN SODIUM, PORCINE 5000 UNITS/1 ML VIAL SQ SCH ×2 (08:37→20:40)
[2018-10-04] MEDS: ASCORBIC ACID 500 MG TABLET GT SCH ×2 (08:37→16:50)
[2018-10-04] MEDS: LEVETIRACETAM SOL (5 ML) 100 MG/ML UDC GT SCH ×2 (08:37→20:40)
[2018-10-04] MEDS: POTASSIUM CHLORIDE 20 MEQ/15 ML GT SCH (08:37)
[2018-10-04] MEDS: PROSTAT (PYXIS) 30 ML UDC GT SCH ×2 (08:37→16:50)
[2018-10-04] MEDS: BACLOFEN (10 MG) 10 MG TABLET GT SCH ×3 (08:37→16:50)
[2018-10-04] MEDS: DOCUSATE SODIUM LIQ 100 MG/10 ML UDC GT SCH ×2 (08:37→16:50)
[2018-10-04] MEDS: FUNGI NAIL TP SCH ×2 (09:00→20:41)
[2018-10-04] MEDS: Z GUARD REMEDY 4 OZ OINT TP SCH ×2 (09:00→20:41)
[2018-10-04] MEDS: HYDROGEN PEROXIDE 480 ML BOTTLE TP SCH ×2 (09:00→20:40)
[2018-10-04 19:51] VITALS: BP 103/64
[2018-10-04] MEDS: MULTIVIT W/MINERALS 1 TAB TABLET GT SCH (20:40)
[2018-10-04] MEDS: CEFTRIAXONE 1 G in IV D5W 50 ML IV SCH (21:08)
[2018-10-04] MEDS: SENNOSIDES 8.6 MG TABLET GT SCH (21:38)
[2018-10-04] MEDS: BASAGLAR SQ SCH (21:38)
[2018-10-05] MEDS: GLUCERNA 1.2 1,000 ML BOTTLE GT PRN (01:36)
[2018-10-05] MEDS: IPRATROPIUM NEB FS 0.5 MG/2.5 ML AMPUL.NEB NEB SCH ×4 (02:01→20:06)
[2018-10-05] MEDS: ALBUTEROL FS 2.5 MG/3 ML VIAL.NEB NEB SCH ×4 (02:01→20:06)
--- NOTE | 2018-10-05 04:44 | NUR ---
RT Pt remains on [facility] vent t/o the night. svn given inline. Addendum: 10/05/18 at 0444 by RAHEEM SOLOMON RT Amended: Links added.
[2018-10-05] MEDS: POLYVINYL ALCOHOL 15 ML BOTTLE EACHEYE SCH ×4 (05:54→23:34)
[2018-10-05] MEDS: OMEPRAZOLE DR 20 MG GT SCH (05:54)
[2018-10-05] MEDS: BLOOD SUGAR DIAGNOSTIC 1 EACH STRIP IN SCH ×2 (06:27→18:17)
[2018-10-05] MEDS: INSULIN LISPRO/ASPART 100 UNIT/ML CARTRIDGE SQ PRN (06:29)
[2018-10-05 08:14] LABS: BASOPHILS # (AUTO) 0.1 /CMM (0.0-0.2); BASOPHILS % (AUTO) 1.7 % (0.0-2.0); EOSINOPHILS % (AUTO) 3.6 % (0.0-6.0); HEMATOCRIT 35 % (33-45); HEMOGLOBIN 11.7 g/dL (11.5-14.8); LYMPHOCYTES # (AUTO) 1.6 /CMM (0.8-4.8); LYMPHOCYTES % (AUTO) 23.3 % (20.0-44.0); MEAN CORPUSCULAR HGB CONC 34 g/dl (31.0-36.0); MEAN CORPUSCULAR VOLUME 92 fL (82-100); MONOCYTES # (AUTO) 0.5 /CMM (0.1-1.30); MONOCYTES % (AUTO) 7.2 % (2.0-12.0); NEUTROPHILS # (AUTO) 4.5 /CMM (1.8-8.9); NEUTROPHILS % (AUTO) 64.2 % (43.0-81.0); PLATELET COUNT (AUTO) 288 /CMM (150-450); RED BLOOD CELL COUNT(AUTO) 3.76 MIL/uL (4.0-5.2); WHITE BLOOD COUNT (AUTO) 6.9 K/uL (4.3-11.0)
--- NOTE | 2018-10-05 08:18 | NUR ---
RT Pt received trach on the vent with noted settings. Pt is awake but does not follow commands. Vent alarms are set and audible with BVM by bedside. TREE SURGEON cuff pressure noted. Vent is plugged into red outlet. No respiratory distress noted at this time.
[2018-10-05] MEDS: FERROUS SULFATE - FOR SA ONLY 330 MG/7.5 ML UDC GT SCH ×3 (08:29→16:06)
[2018-10-05] MEDS: BACLOFEN (10 MG) 10 MG TABLET GT SCH ×3 (08:29→16:06)
[2018-10-05] MEDS: DOCUSATE SODIUM LIQ 100 MG/10 ML UDC GT SCH ×2 (08:29→16:06)
[2018-10-05] MEDS: METFORMIN 850 MG TABLET GT SCH ×2 (08:29→16:06)
[2018-10-05] MEDS: LEVETIRACETAM SOL (5 ML) 100 MG/ML UDC GT SCH ×2 (08:29→20:39)
[2018-10-05] MEDS: POTASSIUM CHLORIDE 20 MEQ/15 ML GT SCH (08:30)
[2018-10-05] MEDS: ASCORBIC ACID 500 MG TABLET GT SCH ×2 (08:30→16:06)
[2018-10-05] MEDS: PROSTAT (PYXIS) 30 ML UDC GT SCH ×2 (08:30→16:06)
[2018-10-05] MEDS: HEPARIN SODIUM, PORCINE 5000 UNITS/1 ML VIAL SQ SCH ×2 (08:35→20:40)
[2018-10-05] MEDS: HYDROGEN PEROXIDE 480 ML BOTTLE TP SCH ×2 (09:00→20:40)
[2018-10-05] MEDS: Z GUARD REMEDY 4 OZ OINT TP SCH ×2 (09:00→20:40)
[2018-10-05] MEDS: FUNGI NAIL TP SCH ×2 (09:00→20:40)
--- NOTE | 2018-10-05 11:25 | NUR ---
LORENZO Paulino ordered to give Ceftriaxone 1 gm IV q 24 hours for a total of 7 days.
[2018-10-05 13:36] VITALS: BP 114/71
[2018-10-05 20:01] VITALS: BP 106/69
[2018-10-05] MEDS: CEFTRIAXONE 1 G in IV D5W 50 ML IV SCH (20:26)
[2018-10-05] MEDS: MULTIVIT W/MINERALS 1 TAB TABLET GT SCH (20:39)
--- NOTE | 2018-10-05 21:20 | NUR ---
PATIENT RECEIVED TRACHED ON MECHANICAL VENTILATION. CUFF CHECKED VIA MATERIAL HANDLING WAREHOUSE SUPERVISOR. AMBU BAG/BACK UP TRACH @ BEDSIDE. VENT PLUGGED INTO RED OUTLET. TX GIVEN, NO ADVERSE REACTIONS NOTED. SX DONE, MODERATE THICK WHITE SECRETIONS NOTED. ALARMS ON AND AUDIBLE. NO DISTRESS NOTED. WILL MONITOR T/O SHIFT. Addendum: 10/05/18 at 2 by ABIOLA COMBS RT Amended: Links added.
[2018-10-05] MEDS: BASAGLAR SQ SCH (21:24)
[2018-10-05] MEDS: SENNOSIDES 8.6 MG TABLET GT SCH (21:24)
[2018-10-06] MEDS: ALBUTEROL FS 2.5 MG/3 ML VIAL.NEB NEB SCH ×4 (01:34→19:44)
[2018-10-06] MEDS: IPRATROPIUM NEB FS 0.5 MG/2.5 ML AMPUL.NEB NEB SCH ×4 (01:34→19:44)
[2018-10-06] MEDS: GLUCERNA 1.2 1,000 ML BOTTLE GT PRN (05:34)
[2018-10-06] MEDS: OMEPRAZOLE DR 20 MG GT SCH (05:34)
[2018-10-06] MEDS: POLYETHYLENE GLYCOL 3350 17 GM POWD.PACK GT PRN (05:34)
[2018-10-06] MEDS: POLYVINYL ALCOHOL 15 ML BOTTLE EACHEYE SCH ×3 (05:34→17:11)
[2018-10-06] MEDS: BISACODYL SUPP (10 MG) 10 MG/SUPP.RECT SUPP.RECT RC PRN (05:35)
[2018-10-06] MEDS: BLOOD SUGAR DIAGNOSTIC 1 EACH STRIP IN SCH ×2 (06:35→18:41)
[2018-10-06] MEDS: INSULIN LISPRO/ASPART 100 UNIT/ML CARTRIDGE SQ PRN ×2 (06:36→18:42)
[2018-10-06 07:22] VITALS: BP 107/60
[2018-10-06] MEDS: PROSTAT (PYXIS) 30 ML UDC GT SCH ×2 (08:26→17:11)
[2018-10-06] MEDS: METFORMIN 850 MG TABLET GT SCH ×2 (08:26→17:11)
[2018-10-06] MEDS: LEVETIRACETAM SOL (5 ML) 100 MG/ML UDC GT SCH ×2 (08:26→20:34)
[2018-10-06] MEDS: DOCUSATE SODIUM LIQ 100 MG/10 ML UDC GT SCH ×2 (08:26→17:11)
[2018-10-06] MEDS: ASCORBIC ACID 500 MG TABLET GT SCH ×2 (08:26→17:11)
[2018-10-06] MEDS: POTASSIUM CHLORIDE 20 MEQ/15 ML GT SCH (08:26)
[2018-10-06] MEDS: BACLOFEN (10 MG) 10 MG TABLET GT SCH ×3 (08:26→17:11)
[2018-10-06] MEDS: FERROUS SULFATE - FOR SA ONLY 330 MG/7.5 ML UDC GT SCH ×3 (08:26→17:11)
[2018-10-06] MEDS: HEPARIN SODIUM, PORCINE 5000 UNITS/1 ML VIAL SQ SCH ×2 (08:27→20:35)
[2018-10-06] MEDS: FUNGI NAIL TP SCH ×2 (09:00→20:35)
[2018-10-06] MEDS: HYDROGEN PEROXIDE 480 ML BOTTLE TP SCH ×2 (09:00→20:35)
[2018-10-06] MEDS: Z GUARD REMEDY 4 OZ OINT TP SCH ×2 (09:00→20:35)
[2018-10-06 19:37] VITALS: BP 98/68
[2018-10-06] MEDS: MULTIVIT W/MINERALS 1 TAB TABLET GT SCH (20:34)
[2018-10-06] MEDS: BASAGLAR SQ SCH (21:15)
[2018-10-06] MEDS: SENNOSIDES 8.6 MG TABLET GT SCH (21:15)
[2018-10-07] MEDS: POLYVINYL ALCOHOL 15 ML BOTTLE EACHEYE SCH ×5 (00:04→23:29)
[2018-10-07] MEDS: ALBUTEROL FS 2.5 MG/3 ML VIAL.NEB NEB SCH ×4 (01:31→19:39)
[2018-10-07] MEDS: IPRATROPIUM NEB FS 0.5 MG/2.5 ML AMPUL.NEB NEB SCH ×4 (01:31→19:39)
[2018-10-07] MEDS: OMEPRAZOLE DR 20 MG GT SCH (05:24)
[2018-10-07] MEDS: GLUCERNA 1.2 1,000 ML BOTTLE GT PRN ×2 (06:23→18:19)
[2018-10-07] MEDS: INSULIN LISPRO/ASPART 100 UNIT/ML CARTRIDGE SQ PRN ×2 (06:23→18:31)
[2018-10-07] MEDS: BLOOD SUGAR DIAGNOSTIC 1 EACH STRIP IN SCH ×2 (06:23→18:30)
[2018-10-07 07:34] VITALS: BP 126/76
[2018-10-07] MEDS: Z GUARD REMEDY 4 OZ OINT TP SCH ×2 (09:00→20:09)
[2018-10-07] MEDS: HYDROGEN PEROXIDE 480 ML BOTTLE TP SCH ×2 (09:00→20:09)
[2018-10-07] MEDS: FUNGI NAIL TP SCH ×2 (09:00→20:09)
[2018-10-07] MEDS: FERROUS SULFATE - FOR SA ONLY 330 MG/7.5 ML UDC GT SCH ×3 (09:02→17:25)
[2018-10-07] MEDS: BACLOFEN (10 MG) 10 MG TABLET GT SCH ×3 (09:02→17:25)
[2018-10-07] MEDS: METFORMIN 850 MG TABLET GT SCH ×2 (09:02→17:25)
[2018-10-07] MEDS: POTASSIUM CHLORIDE 20 MEQ/15 ML GT SCH (09:02)
[2018-10-07] MEDS: ASCORBIC ACID 500 MG TABLET GT SCH ×2 (09:02→17:25)
[2018-10-07] MEDS: DOCUSATE SODIUM LIQ 100 MG/10 ML UDC GT SCH ×2 (09:02→17:25)
[2018-10-07] MEDS: PROSTAT (PYXIS) 30 ML UDC GT SCH ×2 (09:02→17:25)
[2018-10-07] MEDS: LEVETIRACETAM SOL (5 ML) 100 MG/ML UDC GT SCH ×2 (09:02→20:09)
[2018-10-07] MEDS: HEPARIN SODIUM, PORCINE 5000 UNITS/1 ML VIAL SQ SCH ×2 (09:03→20:09)
--- NOTE | 2018-10-07 18:56 | NUR ---
patient up in [facility] today, tolerated well. no signs of discomfort observed.
[2018-10-07] MEDS: MULTIVIT W/MINERALS 1 TAB TABLET GT SCH (20:09)
[2018-10-07] MEDS: POLYETHYLENE GLYCOL 3350 17 GM POWD.PACK GT PRN (20:10)
[2018-10-07 20:24] VITALS: BP 110/71
[2018-10-07] MEDS: BASAGLAR SQ SCH (21:13)
[2018-10-07] MEDS: SENNOSIDES 8.6 MG TABLET GT SCH (21:13)
[2018-10-08] MEDS: IPRATROPIUM NEB FS 0.5 MG/2.5 ML AMPUL.NEB NEB SCH ×4 (01:34→19:04)
[2018-10-08] MEDS: ALBUTEROL FS 2.5 MG/3 ML VIAL.NEB NEB SCH ×4 (01:34→19:04)
[2018-10-08] MEDS: OMEPRAZOLE DR 20 MG GT SCH (05:33)
[2018-10-08] MEDS: POLYVINYL ALCOHOL 15 ML BOTTLE EACHEYE SCH ×3 (05:33→17:28)
[2018-10-08] MEDS: BLOOD SUGAR DIAGNOSTIC 1 EACH STRIP IN SCH ×2 (06:05→18:26)
[2018-10-08] MEDS: INSULIN LISPRO/ASPART 100 UNIT/ML CARTRIDGE SQ PRN ×2 (06:05→18:26)
[2018-10-08 07:45] VITALS: BP 102/58
[2018-10-08] MEDS: DOCUSATE SODIUM LIQ 100 MG/10 ML UDC GT SCH ×2 (08:32→17:28)
[2018-10-08] MEDS: METFORMIN 850 MG TABLET GT SCH ×2 (08:32→17:28)
[2018-10-08] MEDS: FERROUS SULFATE - FOR SA ONLY 330 MG/7.5 ML UDC GT SCH ×3 (08:32→17:28)
[2018-10-08] MEDS: ASCORBIC ACID 500 MG TABLET GT SCH ×2 (08:33→17:28)
[2018-10-08] MEDS: POTASSIUM CHLORIDE 20 MEQ/15 ML GT SCH (08:33)
[2018-10-08] MEDS: BACLOFEN (10 MG) 10 MG TABLET GT SCH ×3 (08:33→17:28)
[2018-10-08] MEDS: LEVETIRACETAM SOL (5 ML) 100 MG/ML UDC GT SCH ×2 (08:33→21:00)
[2018-10-08] MEDS: PROSTAT (PYXIS) 30 ML UDC GT SCH ×2 (08:33→17:28)
[2018-10-08] MEDS: FUNGI NAIL TP SCH ×2 (08:34→21:00)
[2018-10-08] MEDS: HEPARIN SODIUM, PORCINE 5000 UNITS/1 ML VIAL SQ SCH ×2 (08:34→21:00)
[2018-10-08] MEDS: Z GUARD REMEDY 4 OZ OINT TP SCH ×2 (08:34→21:00)
[2018-10-08] MEDS: HYDROGEN PEROXIDE 480 ML BOTTLE TP SCH ×2 (08:34→21:00)
[2018-10-08 19:45] VITALS: BP 115/79
[2018-10-08] MEDS: MULTIVIT W/MINERALS 1 TAB TABLET GT SCH (21:00)
[2018-10-08] MEDS: BASAGLAR SQ SCH (22:03)
[2018-10-08] MEDS: SENNOSIDES 8.6 MG TABLET GT SCH (22:03)
[2018-10-08] MEDS: GLUCERNA 1.2 1,000 ML BOTTLE GT PRN (22:04)
[2018-10-09] MEDS: POLYVINYL ALCOHOL 15 ML BOTTLE EACHEYE SCH ×4 (00:08→17:37)
[2018-10-09] MEDS: ALBUTEROL FS 2.5 MG/3 ML VIAL.NEB NEB SCH ×4 (00:44→19:23)
[2018-10-09] MEDS: IPRATROPIUM NEB FS 0.5 MG/2.5 ML AMPUL.NEB NEB SCH ×4 (00:44→19:23)
[2018-10-09] MEDS: OMEPRAZOLE DR 20 MG GT SCH (06:42)
[2018-10-09] MEDS: INSULIN LISPRO/ASPART 100 UNIT/ML CARTRIDGE SQ PRN ×2 (06:42→18:18)
[2018-10-09] MEDS: BLOOD SUGAR DIAGNOSTIC 1 EACH STRIP IN SCH ×2 (06:42→18:18)
[2018-10-09] MEDS: BISACODYL SUPP (10 MG) 10 MG/SUPP.RECT SUPP.RECT RC PRN (07:02)
[2018-10-09 07:17] VITALS: BP 108/62
[2018-10-09] MEDS: DOCUSATE SODIUM LIQ 100 MG/10 ML UDC GT SCH ×2 (08:44→16:03)
[2018-10-09] MEDS: BACLOFEN (10 MG) 10 MG TABLET GT SCH ×3 (08:45→16:04)
[2018-10-09] MEDS: POTASSIUM CHLORIDE 20 MEQ/15 ML GT SCH (08:45)
[2018-10-09] MEDS: LEVETIRACETAM SOL (5 ML) 100 MG/ML UDC GT SCH ×2 (08:45→20:30)
[2018-10-09] MEDS: METFORMIN 850 MG TABLET GT SCH ×2 (08:45→16:03)
[2018-10-09] MEDS: PROSTAT (PYXIS) 30 ML UDC GT SCH ×2 (08:45→16:04)
[2018-10-09] MEDS: FERROUS SULFATE - FOR SA ONLY 330 MG/7.5 ML UDC GT SCH ×3 (08:45→16:03)
[2018-10-09] MEDS: HEPARIN SODIUM, PORCINE 5000 UNITS/1 ML VIAL SQ SCH ×2 (08:45→20:27)
[2018-10-09] MEDS: ASCORBIC ACID 500 MG TABLET GT SCH ×2 (08:45→16:04)
[2018-10-09] MEDS: FUNGI NAIL TP SCH ×2 (09:00→20:27)
[2018-10-09] MEDS: HYDROGEN PEROXIDE 480 ML BOTTLE TP SCH ×2 (09:00→20:27)
[2018-10-09] MEDS: Z GUARD REMEDY 4 OZ OINT TP SCH ×2 (09:00→20:27)
--- NOTE | 2018-10-09 13:00 | NUR ---
Seen and examined by Mya Rodgers, no new order.
[2018-10-09] MEDS: GLUCERNA 1.2 1,000 ML BOTTLE GT PRN (18:06)
[2018-10-09] MEDS: POLYETHYLENE GLYCOL 3350 17 GM POWD.PACK GT PRN (18:54)
[2018-10-09 20:00] VITALS: BP 124/86
[2018-10-09 20:14] VITALS: BP 124/86
[2018-10-09] MEDS: MULTIVIT W/MINERALS 1 TAB TABLET GT SCH (20:30)
[2018-10-09] MEDS: SENNOSIDES 8.6 MG TABLET GT SCH (21:14)
[2018-10-09] MEDS: BASAGLAR SQ SCH (22:20)
[2018-10-10] MEDS: POLYVINYL ALCOHOL 15 ML BOTTLE EACHEYE SCH ×5 (00:16→23:55)
[2018-10-10] MEDS: ALBUTEROL FS 2.5 MG/3 ML VIAL.NEB NEB SCH ×4 (01:20→19:38)
[2018-10-10] MEDS: IPRATROPIUM NEB FS 0.5 MG/2.5 ML AMPUL.NEB NEB SCH ×4 (01:20→19:38)
[2018-10-10] MEDS: OMEPRAZOLE DR 20 MG GT SCH (06:11)
[2018-10-10] MEDS: BLOOD SUGAR DIAGNOSTIC 1 EACH STRIP IN SCH ×2 (06:19→18:37)
[2018-10-10] MEDS: INSULIN LISPRO/ASPART 100 UNIT/ML CARTRIDGE SQ PRN ×2 (06:20→18:38)
[2018-10-10 07:48] VITALS: BP 115/54
[2018-10-10] MEDS: BACLOFEN (10 MG) 10 MG TABLET GT SCH ×3 (08:45→17:51)
[2018-10-10] MEDS: FERROUS SULFATE - FOR SA ONLY 330 MG/7.5 ML UDC GT SCH ×3 (08:45→17:51)
[2018-10-10] MEDS: DOCUSATE SODIUM LIQ 100 MG/10 ML UDC GT SCH ×2 (08:45→17:51)
[2018-10-10] MEDS: METFORMIN 850 MG TABLET GT SCH ×2 (08:45→17:51)
[2018-10-10] MEDS: LEVETIRACETAM SOL (5 ML) 100 MG/ML UDC GT SCH ×2 (08:45→20:11)
[2018-10-10] MEDS: PROSTAT (PYXIS) 30 ML UDC GT SCH ×2 (08:46→17:51)
[2018-10-10] MEDS: POTASSIUM CHLORIDE 20 MEQ/15 ML GT SCH (08:46)
[2018-10-10] MEDS: ASCORBIC ACID 500 MG TABLET GT SCH ×2 (08:46→17:51)
[2018-10-10] MEDS: HEPARIN SODIUM, PORCINE 5000 UNITS/1 ML VIAL SQ SCH ×2 (08:46→20:13)
[2018-10-10] MEDS: FUNGI NAIL TP SCH ×2 (09:56→20:13)
[2018-10-10] MEDS: HYDROGEN PEROXIDE 480 ML BOTTLE TP SCH ×2 (09:56→20:13)
[2018-10-10] MEDS: Z GUARD REMEDY 4 OZ OINT TP SCH ×2 (09:56→20:13)
[2018-10-10] MEDS: BISACODYL SUPP (10 MG) 10 MG/SUPP.RECT SUPP.RECT RC PRN (18:00)
--- NOTE | 2018-10-10 19:39 | NUR ---
PATIENT RECEIVED TRACHED ON MECHANICAL VENTILATION. CUFF CHECKED VIA ASSEMBLER TRUCK TRAILER. AMBU BAG/BACK UP TRACH @ BEDSIDE. VENT PLUGGED INTO RED OUTLET. TX GIVEN, NO ADVERSE REACTIONS NOTED. SX DONE, MODERATE THICK WHITE SECRETIONS NOTED. ALARMS ON AND AUDIBLE. NO DISTRESS NOTED. WILL MONITOR T/O SHIFT. Addendum: 10/10/18 at 1939 by RODERICK JONES RT Amended: Links added.
[2018-10-10] MEDS: MULTIVIT W/MINERALS 1 TAB TABLET GT SCH (20:11)
[2018-10-10 20:35] VITALS: BP 107/74
[2018-10-10] MEDS: BASAGLAR SQ SCH (21:22)
[2018-10-10] MEDS: SENNOSIDES 8.6 MG TABLET GT SCH (21:22)
[2018-10-11] MEDS: IPRATROPIUM NEB FS 0.5 MG/2.5 ML AMPUL.NEB NEB SCH ×4 (02:16→19:57)
[2018-10-11] MEDS: ALBUTEROL FS 2.5 MG/3 ML VIAL.NEB NEB SCH ×4 (02:16→19:57)
[2018-10-11] MEDS: OMEPRAZOLE DR 20 MG GT SCH (05:11)
[2018-10-11] MEDS: POLYVINYL ALCOHOL 15 ML BOTTLE EACHEYE SCH ×4 (05:11→23:27)
[2018-10-11] MEDS: BLOOD SUGAR DIAGNOSTIC 1 EACH STRIP IN SCH ×2 (06:24→18:27)
[2018-10-11] MEDS: HEPARIN SODIUM, PORCINE 5000 UNITS/1 ML VIAL SQ SCH ×2 (08:25→20:25)
[2018-10-11] MEDS: FERROUS SULFATE - FOR SA ONLY 330 MG/7.5 ML UDC GT SCH ×3 (08:30→16:20)
[2018-10-11] MEDS: LEVETIRACETAM SOL (5 ML) 100 MG/ML UDC GT SCH ×2 (08:30→20:25)
[2018-10-11] MEDS: METFORMIN 850 MG TABLET GT SCH ×2 (08:30→16:20)
[2018-10-11] MEDS: DOCUSATE SODIUM LIQ 100 MG/10 ML UDC GT SCH ×2 (08:30→16:20)
[2018-10-11] MEDS: BACLOFEN (10 MG) 10 MG TABLET GT SCH ×3 (08:30→16:20)
[2018-10-11] MEDS: ASCORBIC ACID 500 MG TABLET GT SCH ×2 (08:31→16:20)
[2018-10-11] MEDS: FUNGI NAIL TP SCH ×2 (08:31→20:26)
[2018-10-11] MEDS: PROSTAT (PYXIS) 30 ML UDC GT SCH ×2 (08:31→16:20)
[2018-10-11] MEDS: HYDROGEN PEROXIDE 480 ML BOTTLE TP SCH ×2 (08:31→20:26)
[2018-10-11] MEDS: Z GUARD REMEDY 4 OZ OINT TP SCH ×2 (08:31→20:26)
[2018-10-11] MEDS: POTASSIUM CHLORIDE 20 MEQ/15 ML GT SCH (08:31)
[2018-10-11 08:35] VITALS: BP 102/69
[2018-10-11] MEDS: GLUCERNA 1.2 1,000 ML BOTTLE GT PRN (13:30)
[2018-10-11 20:18] VITALS: BP 109/69
[2018-10-11 20:19] VITALS: BP 82/56
[2018-10-11 20:22] VITALS: BP 109/69
[2018-10-11] MEDS: MULTIVIT W/MINERALS 1 TAB TABLET GT SCH (20:25)
--- NOTE | 2018-10-11 20:42 | NUR ---
PT RCVD TRACH'D ON MECHANICAL WITH CHARTED SETTINGS. TX GIVEN AND NO ADVERSE REACTION NOTED. SX DONE. PT TRACH PATENT AND SECURE. VENT PLUGGED INTO RED OUTLET. ALARMS ARE SET AND AUDIBLE. AMBU BAG AT BEDSIDE. WILL CONTINUE TO MONITOR. Addendum: 10/11/18 at 2041 by CHAGO HOLMAN RT Amended: Links added.
[2018-10-11] MEDS: SENNOSIDES 8.6 MG TABLET GT SCH (22:01)
[2018-10-11] MEDS: INSULIN GLARGINE, 100 UNIT/ML CARTRIDGE SQ SCH (22:01)
[2018-10-12] MEDS: ALBUTEROL FS 2.5 MG/3 ML VIAL.NEB NEB SCH ×4 (01:56→20:25)
[2018-10-12] MEDS: IPRATROPIUM NEB FS 0.5 MG/2.5 ML AMPUL.NEB NEB SCH ×4 (01:56→20:25)
[2018-10-12] MEDS: POLYVINYL ALCOHOL 15 ML BOTTLE EACHEYE SCH ×3 (05:35→17:08)
[2018-10-12] MEDS: OMEPRAZOLE DR 20 MG GT SCH (05:35)
[2018-10-12] MEDS: BLOOD SUGAR DIAGNOSTIC 1 EACH STRIP IN SCH ×2 (06:15→18:27)
[2018-10-12 07:22] VITALS: BP 103/62
--- NOTE | 2018-10-12 08:59 | NUR ---
RT PATIENT REC'D TRACHED ON MECHANICAL VENTILATION. CUFF CHECKED VIA PROCESSING SPECIALIST. AMBU BAG/BACK UP TRACH BY BEDSIDE. VENT PLUGGED INTO RED OUTLET. TX GIVEN, NO ADVERSE REACTIONS NOTED. SX DONE, MODERATE THICK PALE YELLOW SECRETIONS NOTED. ALARMS ON AND AUDIBLE. NO DISTRESS NOTED. WILL CONTINUE TO MONITOR. Addendum: 10/12/18 at 0900 by ARIS CRUZ RT Amended: Links added.
[2018-10-12] MEDS: HEPARIN SODIUM, PORCINE 5000 UNITS/1 ML VIAL SQ SCH ×2 (09:09→21:54)
[2018-10-12] MEDS: DOCUSATE SODIUM LIQ 100 MG/10 ML UDC GT SCH ×2 (09:22→17:08)
[2018-10-12] MEDS: LEVETIRACETAM SOL (5 ML) 100 MG/ML UDC GT SCH ×2 (09:22→21:53)
[2018-10-12] MEDS: METFORMIN 850 MG TABLET GT SCH ×2 (09:22→17:08)
[2018-10-12] MEDS: BACLOFEN (10 MG) 10 MG TABLET GT SCH ×3 (09:22→17:08)
[2018-10-12] MEDS: FERROUS SULFATE - FOR SA ONLY 330 MG/7.5 ML UDC GT SCH ×3 (09:22→17:08)
[2018-10-12] MEDS: ASCORBIC ACID 500 MG TABLET GT SCH ×2 (09:23→17:08)
[2018-10-12] MEDS: FUNGI NAIL TP SCH ×2 (09:23→21:54)
[2018-10-12] MEDS: PROSTAT (PYXIS) 30 ML UDC GT SCH ×2 (09:23→17:08)
[2018-10-12] MEDS: HYDROGEN PEROXIDE 480 ML BOTTLE TP SCH ×2 (09:23→21:54)
[2018-10-12] MEDS: POTASSIUM CHLORIDE 20 MEQ/15 ML GT SCH (09:23)
[2018-10-12] MEDS: Z GUARD REMEDY 4 OZ OINT TP SCH ×2 (09:23→21:54)
--- NOTE | 2018-10-12 20:26 | NUR ---
RT NOTE PATIENT RECEIVED TRACH'D ON MECHANICAL VENT. PATIENT IS TOLERATING CURRENT ORDERED VENT SETTINGS WITHOUT RESPIRATORY DISTRESS. TRACH IS PATENT AND SECURE. ALARMS ARE SET AND AUDIBLE. MECHANICAL VENT IS PLUGGED INTO RED OUTLET. EMERGENCY EQUIPMENT IS AT PATIENT BEDSIDE. WILL CONTINUE TO MONITOR. Addendum: 10/12/18 at 2110 by EVERARDO SMITH RT Amended: Links added.
[2018-10-12] MEDS: MULTIVIT W/MINERALS 1 TAB TABLET GT SCH (21:53)
[2018-10-12] MEDS: SENNOSIDES 8.6 MG TABLET GT SCH (21:54)
[2018-10-12] MEDS: INSULIN GLARGINE, 100 UNIT/ML CARTRIDGE SQ SCH (21:55)
[2018-10-13] MEDS: POLYVINYL ALCOHOL 15 ML BOTTLE EACHEYE SCH ×4 (00:26→17:12)
[2018-10-13] MEDS: ALBUTEROL FS 2.5 MG/3 ML VIAL.NEB NEB SCH ×4 (01:53→19:59)
[2018-10-13] MEDS: IPRATROPIUM NEB FS 0.5 MG/2.5 ML AMPUL.NEB NEB SCH ×4 (01:53→19:59)
[2018-10-13 04:16] VITALS: BP 97/63
[2018-10-13] MEDS: OMEPRAZOLE DR 20 MG GT SCH (05:21)
[2018-10-13] MEDS: BLOOD SUGAR DIAGNOSTIC 1 EACH STRIP IN SCH ×2 (06:22→18:16)
[2018-10-13] MEDS: INSULIN LISPRO/ASPART 100 UNIT/ML CARTRIDGE SQ PRN (06:22)
[2018-10-13 07:43] VITALS: BP 93/55
[2018-10-13] MEDS: HEPARIN SODIUM, PORCINE 5000 UNITS/1 ML VIAL SQ SCH ×2 (08:27→20:43)
[2018-10-13] MEDS: FERROUS SULFATE - FOR SA ONLY 330 MG/7.5 ML UDC GT SCH ×3 (08:34→17:12)
[2018-10-13] MEDS: PROSTAT (PYXIS) 30 ML UDC GT SCH ×2 (08:34→17:12)
[2018-10-13] MEDS: ASCORBIC ACID 500 MG TABLET GT SCH ×2 (08:34→17:12)
[2018-10-13] MEDS: DOCUSATE SODIUM LIQ 100 MG/10 ML UDC GT SCH ×2 (08:34→17:12)
[2018-10-13] MEDS: METFORMIN 850 MG TABLET GT SCH ×2 (08:34→17:12)
[2018-10-13] MEDS: LEVETIRACETAM SOL (5 ML) 100 MG/ML UDC GT SCH ×2 (08:34→20:42)
[2018-10-13] MEDS: POTASSIUM CHLORIDE 20 MEQ/15 ML GT SCH (08:34)
[2018-10-13] MEDS: BACLOFEN (10 MG) 10 MG TABLET GT SCH ×3 (08:34→17:12)
[2018-10-13] MEDS: HYDROGEN PEROXIDE 480 ML BOTTLE TP SCH ×2 (09:00→20:43)
[2018-10-13] MEDS: FUNGI NAIL TP SCH ×2 (09:00→20:43)
[2018-10-13] MEDS: Z GUARD REMEDY 4 OZ OINT TP SCH ×2 (09:00→20:43)
--- NOTE | 2018-10-13 15:00 | NUR ---
INTERDISCIPLINARY TEAM CONFERENCE (IDT) was held today. Resident's sister Tosin unable to attend today's IDT meeting. Dr. Alvarez and the interdisciplinary team reviewed the current plan of care in detail. Orders as well as treatment and medications were reviewed. Resident is stable at this time Completed IV ATB for UTI, resident's repeat CBC last 10/05 shows WBC of 6.9, urine culture 20,000 mixed contaminants.
[2018-10-13 20:27] VITALS: BP 106/68
[2018-10-13] MEDS: MULTIVIT W/MINERALS 1 TAB TABLET GT SCH (20:42)
[2018-10-13] MEDS: SENNOSIDES 8.6 MG TABLET GT SCH (21:19)
[2018-10-13] MEDS: GLUCERNA 1.2 1,000 ML BOTTLE GT PRN (21:19)
[2018-10-13] MEDS: INSULIN GLARGINE, 100 UNIT/ML CARTRIDGE SQ SCH (22:26)
[2018-10-14] MEDS: POLYVINYL ALCOHOL 15 ML BOTTLE EACHEYE SCH ×4 (00:26→18:16)
[2018-10-14] MEDS: IPRATROPIUM NEB FS 0.5 MG/2.5 ML AMPUL.NEB NEB SCH ×4 (00:54→19:40)
[2018-10-14] MEDS: ALBUTEROL FS 2.5 MG/3 ML VIAL.NEB NEB SCH ×4 (00:54→19:40)
[2018-10-14] MEDS: OMEPRAZOLE DR 20 MG GT SCH (05:51)
[2018-10-14] MEDS: BLOOD SUGAR DIAGNOSTIC 1 EACH STRIP IN SCH ×2 (07:03→18:16)
[2018-10-14] MEDS: INSULIN LISPRO/ASPART 100 UNIT/ML CARTRIDGE SQ PRN ×2 (07:04→18:16)
[2018-10-14 07:35] VITALS: BP 114/68
[2018-10-14] MEDS: POTASSIUM CHLORIDE 20 MEQ/15 ML GT SCH (08:47)
[2018-10-14] MEDS: BACLOFEN (10 MG) 10 MG TABLET GT SCH ×3 (08:47→16:18)
[2018-10-14] MEDS: METFORMIN 850 MG TABLET GT SCH ×2 (08:47→16:18)
[2018-10-14] MEDS: PROSTAT (PYXIS) 30 ML UDC GT SCH ×2 (08:47→16:18)
[2018-10-14] MEDS: ASCORBIC ACID 500 MG TABLET GT SCH ×2 (08:47→16:18)
[2018-10-14] MEDS: LEVETIRACETAM SOL (5 ML) 100 MG/ML UDC GT SCH ×2 (08:47→20:07)
[2018-10-14] MEDS: FERROUS SULFATE - FOR SA ONLY 330 MG/7.5 ML UDC GT SCH ×3 (08:47→16:18)
[2018-10-14] MEDS: DOCUSATE SODIUM LIQ 100 MG/10 ML UDC GT SCH ×2 (08:47→16:18)
[2018-10-14] MEDS: HEPARIN SODIUM, PORCINE 5000 UNITS/1 ML VIAL SQ SCH ×2 (08:48→20:07)
[2018-10-14] MEDS: FUNGI NAIL TP SCH ×2 (08:48→20:08)
[2018-10-14] MEDS: HYDROGEN PEROXIDE 480 ML BOTTLE TP SCH ×2 (09:00→20:07)
[2018-10-14] MEDS: Z GUARD REMEDY 4 OZ OINT TP SCH ×2 (09:00→20:08)
[2018-10-14] MEDS: MULTIVIT W/MINERALS 1 TAB TABLET GT SCH (20:07)
[2018-10-14 20:08] VITALS: BP 114/79
[2018-10-14] MEDS: SENNOSIDES 8.6 MG TABLET GT SCH (22:09)
[2018-10-14] MEDS: INSULIN GLARGINE, 100 UNIT/ML CARTRIDGE SQ SCH (22:09)
--- NOTE | 2018-10-14 22:38 | NUR ---
RT NOTE PT RECEIVED ON [facility] VENT ON THE FOLLOWING NOTED SETTINGS. NO RESP DISTRESS OR SOB NOTED. PT SX'D. BREATHING TX GIVEN, NO ADVERSE REACTIONS NOTED AT THIS TIME. VENT PLUGGED INTO RED OUTLET. ALARMS ARE ON AND AUDIBLE. AMBU BAG AND SPARE TRACH ARE AT BEDSIDE. WILL CONT TO MONITOR PT. Addendum: 10/14/18 at 2239 by BARI GARZA RT Amended: Links added.
[2018-10-15] MEDS: POLYVINYL ALCOHOL 15 ML BOTTLE EACHEYE SCH ×5 (00:40→23:31)
[2018-10-15] MEDS: ALBUTEROL FS 2.5 MG/3 ML VIAL.NEB NEB SCH ×4 (00:46→19:41)
[2018-10-15] MEDS: IPRATROPIUM NEB FS 0.5 MG/2.5 ML AMPUL.NEB NEB SCH ×4 (00:46→19:41)
[2018-10-15] MEDS: OMEPRAZOLE DR 20 MG GT SCH (05:10)
[2018-10-15] MEDS: GLUCERNA 1.2 1,000 ML BOTTLE GT PRN (06:14)
[2018-10-15] MEDS: INSULIN LISPRO/ASPART 100 UNIT/ML CARTRIDGE SQ PRN (06:48)
[2018-10-15] MEDS: BLOOD SUGAR DIAGNOSTIC 1 EACH STRIP IN SCH ×2 (06:48→18:46)
[2018-10-15 08:07] VITALS: BP 114/76
[2018-10-15] MEDS: DOCUSATE SODIUM LIQ 100 MG/10 ML UDC GT SCH ×2 (08:42→17:00)
[2018-10-15] MEDS: FERROUS SULFATE - FOR SA ONLY 330 MG/7.5 ML UDC GT SCH ×3 (08:42→17:00)
[2018-10-15] MEDS: METFORMIN 850 MG TABLET GT SCH ×2 (08:42→17:00)
[2018-10-15] MEDS: BACLOFEN (10 MG) 10 MG TABLET GT SCH ×3 (08:42→17:00)
[2018-10-15] MEDS: POTASSIUM CHLORIDE 20 MEQ/15 ML GT SCH (08:42)
[2018-10-15] MEDS: LEVETIRACETAM SOL (5 ML) 100 MG/ML UDC GT SCH ×2 (08:42→21:20)
[2018-10-15] MEDS: PROSTAT (PYXIS) 30 ML UDC GT SCH ×2 (08:42→17:00)
[2018-10-15] MEDS: ASCORBIC ACID 500 MG TABLET GT SCH ×2 (08:42→17:00)
[2018-10-15] MEDS: HEPARIN SODIUM, PORCINE 5000 UNITS/1 ML VIAL SQ SCH ×2 (08:46→21:20)
[2018-10-15] MEDS: HYDROGEN PEROXIDE 480 ML BOTTLE TP SCH ×2 (09:00→21:20)
[2018-10-15] MEDS: Z GUARD REMEDY 4 OZ OINT TP SCH ×2 (09:00→21:21)
[2018-10-15] MEDS: FUNGI NAIL TP SCH ×2 (09:00→21:21)
[2018-10-15 20:23] VITALS: BP 117/77
[2018-10-15] MEDS: MULTIVIT W/MINERALS 1 TAB TABLET GT SCH (21:20)
[2018-10-15] MEDS: SENNOSIDES 8.6 MG TABLET GT SCH (21:21)
[2018-10-15] MEDS: INSULIN GLARGINE, 100 UNIT/ML CARTRIDGE SQ SCH (21:21)
[2018-10-16] MEDS: IPRATROPIUM NEB FS 0.5 MG/2.5 ML AMPUL.NEB NEB SCH ×4 (01:29→19:33)
[2018-10-16] MEDS: ALBUTEROL FS 2.5 MG/3 ML VIAL.NEB NEB SCH ×4 (01:29→19:33)
[2018-10-16] MEDS: POLYVINYL ALCOHOL 15 ML BOTTLE EACHEYE SCH ×3 (06:20→17:08)
[2018-10-16] MEDS: BLOOD SUGAR DIAGNOSTIC 1 EACH STRIP IN SCH ×2 (06:20→18:07)
[2018-10-16] MEDS: OMEPRAZOLE DR 20 MG GT SCH (06:20)
[2018-10-16 07:52] VITALS: BP 113/71
[2018-10-16] MEDS: FERROUS SULFATE - FOR SA ONLY 330 MG/7.5 ML UDC GT SCH ×3 (08:56→16:46)
[2018-10-16] MEDS: DOCUSATE SODIUM LIQ 100 MG/10 ML UDC GT SCH ×2 (08:56→16:46)
[2018-10-16] MEDS: BACLOFEN (10 MG) 10 MG TABLET GT SCH ×3 (08:58→16:48)
[2018-10-16] MEDS: POTASSIUM CHLORIDE 20 MEQ/15 ML GT SCH (08:58)
[2018-10-16] MEDS: LEVETIRACETAM SOL (5 ML) 100 MG/ML UDC GT SCH ×2 (08:58→20:57)
[2018-10-16] MEDS: ASCORBIC ACID 500 MG TABLET GT SCH ×2 (08:58→16:48)
[2018-10-16] MEDS: PROSTAT (PYXIS) 30 ML UDC GT SCH ×2 (08:58→16:48)
[2018-10-16] MEDS: METFORMIN 850 MG TABLET GT SCH ×2 (08:58→16:47)
[2018-10-16] MEDS: HYDROGEN PEROXIDE 480 ML BOTTLE TP SCH ×2 (09:00→20:58)
[2018-10-16] MEDS: FUNGI NAIL TP SCH ×2 (09:00→20:58)
[2018-10-16] MEDS: HEPARIN SODIUM, PORCINE 5000 UNITS/1 ML VIAL SQ SCH ×2 (09:00→20:58)
[2018-10-16] MEDS: Z GUARD REMEDY 4 OZ OINT TP SCH ×2 (09:00→20:58)
[2018-10-16] MEDS: GLUCERNA 1.2 1,000 ML BOTTLE GT PRN (16:41)
[2018-10-16] MEDS: INSULIN LISPRO/ASPART 100 UNIT/ML CARTRIDGE SQ PRN (18:07)
[2018-10-16 19:49] VITALS: BP 106/70
[2018-10-16] MEDS: MULTIVIT W/MINERALS 1 TAB TABLET GT SCH (20:57)
[2018-10-16] MEDS: SENNOSIDES 8.6 MG TABLET GT SCH (21:00)
[2018-10-16] MEDS: INSULIN GLARGINE, 100 UNIT/ML CARTRIDGE SQ SCH (21:00)
[2018-10-17] MEDS: POLYVINYL ALCOHOL 15 ML BOTTLE EACHEYE SCH ×5 (00:29→23:36)
[2018-10-17] MEDS: IPRATROPIUM NEB FS 0.5 MG/2.5 ML AMPUL.NEB NEB SCH ×4 (01:16→19:41)
[2018-10-17] MEDS: ALBUTEROL FS 2.5 MG/3 ML VIAL.NEB NEB SCH ×4 (01:16→19:41)
[2018-10-17] MEDS: OMEPRAZOLE DR 20 MG GT SCH (06:20)
[2018-10-17] MEDS: BLOOD SUGAR DIAGNOSTIC 1 EACH STRIP IN SCH ×2 (06:20→18:49)
[2018-10-17] MEDS: INSULIN LISPRO/ASPART 100 UNIT/ML CARTRIDGE SQ PRN ×2 (06:21→18:49)
[2018-10-17] MEDS: ASCORBIC ACID 500 MG TABLET GT SCH ×2 (08:43→17:21)
[2018-10-17] MEDS: METFORMIN 850 MG TABLET GT SCH ×2 (08:43→17:21)
[2018-10-17] MEDS: POTASSIUM CHLORIDE 20 MEQ/15 ML GT SCH (08:43)
[2018-10-17] MEDS: LEVETIRACETAM SOL (5 ML) 100 MG/ML UDC GT SCH ×2 (08:43→21:15)
[2018-10-17] MEDS: DOCUSATE SODIUM LIQ 100 MG/10 ML UDC GT SCH ×2 (08:43→17:21)
[2018-10-17] MEDS: BACLOFEN (10 MG) 10 MG TABLET GT SCH ×3 (08:43→17:21)
[2018-10-17] MEDS: PROSTAT (PYXIS) 30 ML UDC GT SCH ×2 (08:43→17:21)
[2018-10-17] MEDS: FERROUS SULFATE - FOR SA ONLY 330 MG/7.5 ML UDC GT SCH ×3 (08:43→17:21)
[2018-10-17] MEDS: HEPARIN SODIUM, PORCINE 5000 UNITS/1 ML VIAL SQ SCH ×2 (08:44→21:16)
[2018-10-17] MEDS: Z GUARD REMEDY 4 OZ OINT TP SCH ×2 (09:00→21:16)
[2018-10-17] MEDS: HYDROGEN PEROXIDE 480 ML BOTTLE TP SCH ×2 (09:00→21:16)
[2018-10-17] MEDS: FUNGI NAIL TP SCH ×2 (09:00→21:16)
[2018-10-17 20:51] VITALS: BP 136/88
[2018-10-17] MEDS: MULTIVIT W/MINERALS 1 TAB TABLET GT SCH (21:15)
[2018-10-17] MEDS: SENNOSIDES 8.6 MG TABLET GT SCH (21:16)
[2018-10-17] MEDS: INSULIN GLARGINE, 100 UNIT/ML CARTRIDGE SQ SCH (21:17)
[2018-10-18] MEDS: ALBUTEROL FS 2.5 MG/3 ML VIAL.NEB NEB SCH ×4 (01:52→20:06)
[2018-10-18] MEDS: IPRATROPIUM NEB FS 0.5 MG/2.5 ML AMPUL.NEB NEB SCH ×4 (01:52→20:06)
[2018-10-18] MEDS: POLYVINYL ALCOHOL 15 ML BOTTLE EACHEYE SCH ×4 (05:39→23:42)
[2018-10-18] MEDS: OMEPRAZOLE DR 20 MG GT SCH (05:39)
[2018-10-18] MEDS: BLOOD SUGAR DIAGNOSTIC 1 EACH STRIP IN SCH ×2 (06:02→18:24)
[2018-10-18 07:54] VITALS: BP 96/60
[2018-10-18] MEDS: METFORMIN 850 MG TABLET GT SCH ×2 (09:16→17:09)
[2018-10-18] MEDS: PROSTAT (PYXIS) 30 ML UDC GT SCH ×2 (09:16→17:09)
[2018-10-18] MEDS: LEVETIRACETAM SOL (5 ML) 100 MG/ML UDC GT SCH ×2 (09:16→21:04)
[2018-10-18] MEDS: FERROUS SULFATE - FOR SA ONLY 330 MG/7.5 ML UDC GT SCH ×3 (09:16→17:09)
[2018-10-18] MEDS: DOCUSATE SODIUM LIQ 100 MG/10 ML UDC GT SCH ×2 (09:16→17:09)
[2018-10-18] MEDS: ASCORBIC ACID 500 MG TABLET GT SCH ×2 (09:16→17:09)
[2018-10-18] MEDS: POTASSIUM CHLORIDE 20 MEQ/15 ML GT SCH (09:16)
[2018-10-18] MEDS: BACLOFEN (10 MG) 10 MG TABLET GT SCH ×3 (09:16→17:09)
[2018-10-18] MEDS: Z GUARD REMEDY 4 OZ OINT TP SCH ×2 (09:17→21:06)
[2018-10-18] MEDS: HEPARIN SODIUM, PORCINE 5000 UNITS/1 ML VIAL SQ SCH ×2 (09:17→21:05)
[2018-10-18] MEDS: FUNGI NAIL TP SCH ×2 (09:17→21:06)
[2018-10-18] MEDS: HYDROGEN PEROXIDE 480 ML BOTTLE TP SCH ×2 (09:17→21:05)
[2018-10-18 20:50] VITALS: BP 110/72
[2018-10-18] MEDS: MULTIVIT W/MINERALS 1 TAB TABLET GT SCH (21:04)
[2018-10-18] MEDS: SENNOSIDES 8.6 MG TABLET GT SCH (21:06)
[2018-10-18] MEDS: INSULIN GLARGINE, 100 UNIT/ML CARTRIDGE SQ SCH (21:14)
[2018-10-19] MEDS: IPRATROPIUM NEB FS 0.5 MG/2.5 ML AMPUL.NEB NEB SCH ×4 (02:04→20:01)
[2018-10-19] MEDS: ALBUTEROL FS 2.5 MG/3 ML VIAL.NEB NEB SCH ×4 (02:04→20:01)
[2018-10-19] MEDS: OMEPRAZOLE DR 20 MG GT SCH (06:14)
[2018-10-19] MEDS: POLYVINYL ALCOHOL 15 ML BOTTLE EACHEYE SCH ×3 (06:14→18:33)
[2018-10-19] MEDS: BLOOD SUGAR DIAGNOSTIC 1 EACH STRIP IN SCH ×2 (07:05→18:33)
[2018-10-19] MEDS: INSULIN LISPRO/ASPART 100 UNIT/ML CARTRIDGE SQ PRN (07:05)
[2018-10-19 08:27] VITALS: BP 107/64
[2018-10-19] MEDS: FUNGI NAIL TP SCH ×2 (09:00→20:09)
[2018-10-19] MEDS: DOCUSATE SODIUM LIQ 100 MG/10 ML UDC GT SCH ×2 (09:00→16:50)
[2018-10-19] MEDS: BACLOFEN (10 MG) 10 MG TABLET GT SCH ×3 (09:00→16:51)
[2018-10-19] MEDS: FERROUS SULFATE - FOR SA ONLY 330 MG/7.5 ML UDC GT SCH ×3 (09:00→16:51)
[2018-10-19] MEDS: ASCORBIC ACID 500 MG TABLET GT SCH ×2 (09:00→16:51)
[2018-10-19] MEDS: HEPARIN SODIUM, PORCINE 5000 UNITS/1 ML VIAL SQ SCH ×2 (09:00→20:08)
[2018-10-19] MEDS: Z GUARD REMEDY 4 OZ OINT TP SCH ×2 (09:00→20:09)
[2018-10-19] MEDS: HYDROGEN PEROXIDE 480 ML BOTTLE TP SCH ×2 (09:00→20:08)
[2018-10-19] MEDS: POTASSIUM CHLORIDE 20 MEQ/15 ML GT SCH (09:00)
[2018-10-19] MEDS: METFORMIN 850 MG TABLET GT SCH ×2 (09:00→16:51)
[2018-10-19] MEDS: PROSTAT (PYXIS) 30 ML UDC GT SCH ×2 (09:00→16:51)
[2018-10-19] MEDS: LEVETIRACETAM SOL (5 ML) 100 MG/ML UDC GT SCH ×2 (09:00→20:06)
[2018-10-19] MEDS: GLUCERNA 1.2 1,000 ML BOTTLE GT PRN (18:34)
[2018-10-19 20:02] VITALS: BP 117/73
--- NOTE | 2018-10-19 20:02 | NUR ---
RT NOTE: RECEIVED TRACH PT ON [facility] VENT ON NOTED SETTINGS PER MD ORDERS. TRACH IS PATENT AND SECURED. CLINICAL ADMINISTRATIVE COORDINATOR DONE. Q6 BREATHING TX GIVEN WITH NO ADVERSE REACTION NOTED. SX DONE PRN. VENT PLUGGED INTO RED OUTLET. ALARMS ON AND AUDIBLE. ERIC BAG @ BEDSIDE. NO RESP DISTRESS AT THIS TIME. WILL CONT TO MONITOR PT. Addendum: 10/20/18 at 0210 by SHE BYRNE RT Amended: Links added.
[2018-10-19] MEDS: MULTIVIT W/MINERALS 1 TAB TABLET GT SCH (20:07)
[2018-10-19] MEDS: SENNOSIDES 8.6 MG TABLET GT SCH (21:36)
[2018-10-19] MEDS: INSULIN GLARGINE, 100 UNIT/ML CARTRIDGE SQ SCH (21:36)
[2018-10-20] MEDS: POLYVINYL ALCOHOL 15 ML BOTTLE EACHEYE SCH ×5 (00:11→23:33)
[2018-10-20] MEDS: ALBUTEROL FS 2.5 MG/3 ML VIAL.NEB NEB SCH ×4 (01:20→20:11)
[2018-10-20] MEDS: IPRATROPIUM NEB FS 0.5 MG/2.5 ML AMPUL.NEB NEB SCH ×4 (01:20→20:11)
[2018-10-20] MEDS: OMEPRAZOLE DR 20 MG GT SCH (05:27)
[2018-10-20 07:37] VITALS: BP 102/68
[2018-10-20] MEDS: INSULIN LISPRO/ASPART 100 UNIT/ML CARTRIDGE SQ PRN ×2 (07:58→18:44)
[2018-10-20] MEDS: BLOOD SUGAR DIAGNOSTIC 1 EACH STRIP IN SCH ×2 (07:58→18:43)
[2018-10-20] MEDS: HEPARIN SODIUM, PORCINE 5000 UNITS/1 ML VIAL SQ SCH ×2 (09:00→21:07)
[2018-10-20] MEDS: HYDROGEN PEROXIDE 480 ML BOTTLE TP SCH ×2 (09:00→21:07)
[2018-10-20] MEDS: POTASSIUM CHLORIDE 20 MEQ/15 ML GT SCH (09:00)
[2018-10-20] MEDS: ASCORBIC ACID 500 MG TABLET GT SCH ×2 (09:00→17:00)
[2018-10-20] MEDS: LEVETIRACETAM SOL (5 ML) 100 MG/ML UDC GT SCH ×2 (09:00→21:12)
[2018-10-20] MEDS: FERROUS SULFATE - FOR SA ONLY 330 MG/7.5 ML UDC GT SCH ×3 (09:00→17:00)
[2018-10-20] MEDS: METFORMIN 850 MG TABLET GT SCH ×2 (09:00→17:00)
[2018-10-20] MEDS: DOCUSATE SODIUM LIQ 100 MG/10 ML UDC GT SCH ×2 (09:00→17:00)
[2018-10-20] MEDS: PROSTAT (PYXIS) 30 ML UDC GT SCH ×2 (09:00→17:00)
[2018-10-20] MEDS: Z GUARD REMEDY 4 OZ OINT TP SCH ×2 (09:00→21:08)
[2018-10-20] MEDS: BACLOFEN (10 MG) 10 MG TABLET GT SCH ×3 (09:00→17:00)
[2018-10-20] MEDS: FUNGI NAIL TP SCH ×2 (09:00→21:07)
--- NOTE | 2018-10-20 10:09 | NUR ---
Seen and examined by Dr. Dsouza, patient OOB in [facility]. NNO given at this time.
[2018-10-20 19:43] VITALS: BP 123/83
--- NOTE | 2018-10-20 20:57 | NUR ---
RT PT REC'D TRACH ON [facility] VENT ON NOTED SETTINGS PER MD ORDERS. TRACH IS PATENT AND SECURED. TREATING MACHINE OPERATOR DONE. TX GIVEN WITH NO ADVERSE REACTION NOTED. SX DONE PRN. VENT PLUGGED INTO RED OUTLET. ALARMS ON AND AUDIBLE. ERIC ROCHA @ BEDSIDE. NO RESP DISTRESS AT THIS TIME. WILL CONT TO MONITOR. Addendum: 10/20/18 at 2056 by ARIS CRUZ RT Amended: Links added.
[2018-10-20] MEDS: MULTIVIT W/MINERALS 1 TAB TABLET GT SCH (21:06)
[2018-10-20] MEDS: SENNOSIDES 8.6 MG TABLET GT SCH (21:08)
[2018-10-20] MEDS: INSULIN GLARGINE, 100 UNIT/ML CARTRIDGE SQ SCH (21:12)
[2018-10-21] MEDS: IPRATROPIUM NEB FS 0.5 MG/2.5 ML AMPUL.NEB NEB SCH ×4 (01:30→19:26)
[2018-10-21] MEDS: ALBUTEROL FS 2.5 MG/3 ML VIAL.NEB NEB SCH ×4 (02:09→19:26)
[2018-10-21] MEDS: POLYVINYL ALCOHOL 15 ML BOTTLE EACHEYE SCH ×4 (05:49→23:33)
[2018-10-21] MEDS: OMEPRAZOLE DR 20 MG GT SCH (05:49)
[2018-10-21] MEDS: BLOOD SUGAR DIAGNOSTIC 1 EACH STRIP IN SCH ×2 (07:14→19:03)
[2018-10-21] MEDS: INSULIN LISPRO/ASPART 100 UNIT/ML CARTRIDGE SQ PRN ×2 (07:15→19:04)
[2018-10-21 07:45] VITALS: BP 103/64
[2018-10-21] MEDS: HEPARIN SODIUM, PORCINE 5000 UNITS/1 ML VIAL SQ SCH ×2 (08:46→21:07)
[2018-10-21] MEDS: DOCUSATE SODIUM LIQ 100 MG/10 ML UDC GT SCH ×2 (08:46→17:04)
[2018-10-21] MEDS: METFORMIN 850 MG TABLET GT SCH ×2 (08:47→17:04)
[2018-10-21] MEDS: HYDROGEN PEROXIDE 480 ML BOTTLE TP SCH ×2 (08:47→21:07)
[2018-10-21] MEDS: FUNGI NAIL TP SCH ×2 (08:47→21:07)
[2018-10-21] MEDS: FERROUS SULFATE - FOR SA ONLY 330 MG/7.5 ML UDC GT SCH ×3 (08:47→17:04)
[2018-10-21] MEDS: ASCORBIC ACID 500 MG TABLET GT SCH ×2 (08:47→17:04)
[2018-10-21] MEDS: BACLOFEN (10 MG) 10 MG TABLET GT SCH ×3 (08:47→17:04)
[2018-10-21] MEDS: PROSTAT (PYXIS) 30 ML UDC GT SCH ×2 (08:47→17:04)
[2018-10-21] MEDS: Z GUARD REMEDY 4 OZ OINT TP SCH ×2 (08:47→21:07)
[2018-10-21] MEDS: LEVETIRACETAM SOL (5 ML) 100 MG/ML UDC GT SCH ×2 (08:47→21:06)
[2018-10-21] MEDS: POTASSIUM CHLORIDE 20 MEQ/15 ML GT SCH (09:03)
[2018-10-21] MEDS: GLUCERNA 1.2 1,000 ML BOTTLE GT PRN (17:42)
[2018-10-21 19:44] VITALS: BP 112/56
[2018-10-21] MEDS: MULTIVIT W/MINERALS 1 TAB TABLET GT SCH (21:06)
[2018-10-21] MEDS: SENNOSIDES 8.6 MG TABLET GT SCH (21:07)
[2018-10-21] MEDS: INSULIN GLARGINE, 100 UNIT/ML CARTRIDGE SQ SCH (21:08)
[2018-10-22] MEDS: IPRATROPIUM NEB FS 0.5 MG/2.5 ML AMPUL.NEB NEB SCH ×4 (01:44→19:57)
[2018-10-22] MEDS: ALBUTEROL FS 2.5 MG/3 ML VIAL.NEB NEB SCH ×4 (01:44→19:57)
[2018-10-22] MEDS: POLYVINYL ALCOHOL 15 ML BOTTLE EACHEYE SCH ×4 (05:13→23:56)
[2018-10-22] MEDS: OMEPRAZOLE DR 20 MG GT SCH (05:13)
[2018-10-22] MEDS: BLOOD SUGAR DIAGNOSTIC 1 EACH STRIP IN SCH ×2 (07:06→18:19)
[2018-10-22] MEDS: INSULIN LISPRO/ASPART 100 UNIT/ML CARTRIDGE SQ PRN (07:07)
[2018-10-22 07:44] VITALS: BP 104/63
--- NOTE | 2018-10-22 08:27 | NUR ---
RT RECEIVED PATIENT TRACHED WITH SHILEY #6 CUFFED ON [facility] VENT WITH NOTED SETTINGS PER MD ORDER. SHOES HAND SEWER DONE. TRACH SECURED AND PATENT. VENT PLUGGED INTO RED OUTLET. ALARMS ON AND FUNCTIONING PROPERLY. SPARE TRACH AND AMBU BAG AT HEAD OF BED. BREATHING TX'S GIVEN ORDERED. NO ADVERSE EFFECTS OBSERVED. SUCTIONED SMALL AMOUNTS OF THICK WHITE, YELLOW SECRETIONS. NO SIGNS OF DISTRESS NOTED AT THIS TIME. WILL CONTINUE TO MONITOR FOR ANY CHANGE OF CONDITION. Addendum: 10/22/18 at 1258 by WING WHITTINGTON RT Amended: Links added.
[2018-10-22] MEDS: PROSTAT (PYXIS) 30 ML UDC GT SCH ×2 (08:31→17:00)
[2018-10-22] MEDS: POTASSIUM CHLORIDE 20 MEQ/15 ML GT SCH (08:31)
[2018-10-22] MEDS: FERROUS SULFATE - FOR SA ONLY 330 MG/7.5 ML UDC GT SCH ×3 (08:31→17:00)
[2018-10-22] MEDS: ASCORBIC ACID 500 MG TABLET GT SCH ×2 (08:31→17:00)
[2018-10-22] MEDS: BACLOFEN (10 MG) 10 MG TABLET GT SCH ×3 (08:31→17:00)
[2018-10-22] MEDS: DOCUSATE SODIUM LIQ 100 MG/10 ML UDC GT SCH ×2 (08:31→17:00)
[2018-10-22] MEDS: METFORMIN 850 MG TABLET GT SCH ×2 (08:31→17:00)
[2018-10-22] MEDS: LEVETIRACETAM SOL (5 ML) 100 MG/ML UDC GT SCH ×2 (08:31→20:58)
[2018-10-22] MEDS: HEPARIN SODIUM, PORCINE 5000 UNITS/1 ML VIAL SQ SCH ×2 (08:32→20:59)
[2018-10-22] MEDS: FUNGI NAIL TP SCH ×2 (09:00→20:59)
[2018-10-22] MEDS: HYDROGEN PEROXIDE 480 ML BOTTLE TP SCH ×2 (09:00→20:59)
[2018-10-22] MEDS: Z GUARD REMEDY 4 OZ OINT TP SCH ×2 (09:00→20:59)
--- NOTE | 2018-10-22 19:57 | NUR ---
RT NOTE: RECEIVED TRACH PT ON [facility] VENT ON NOTED SETTINGS PER MD ORDERS. TRACH IS PATENT AND SECURED. BUSINESS ANALYST MANAGER DONE. Q6 BREATHING TX GIVEN WITH NO ADVERSE REACTION NOTED. SX DONE PRN. VENT PLUGGED INTO RED OUTLET. ALARMS ON AND AUDIBLE. ERIC BAG @ BEDSIDE. NO RESP DISTRESS AT THIS TIME. WILL CONT TO MONITOR PT. Addendum: 10/23/18 at 6093 by SHE BYRNE RT Amended: Links added.
[2018-10-22 19:59] VITALS: BP 129/73
[2018-10-22] MEDS: MULTIVIT W/MINERALS 1 TAB TABLET GT SCH (20:58)
[2018-10-22] MEDS: SENNOSIDES 8.6 MG TABLET GT SCH (21:00)
[2018-10-22] MEDS: INSULIN GLARGINE, 100 UNIT/ML CARTRIDGE SQ SCH (21:01)
[2018-10-23] MEDS: IPRATROPIUM NEB FS 0.5 MG/2.5 ML AMPUL.NEB NEB SCH ×4 (01:07→19:32)
[2018-10-23] MEDS: ALBUTEROL FS 2.5 MG/3 ML VIAL.NEB NEB SCH ×4 (01:07→19:32)
[2018-10-23] MEDS: POLYVINYL ALCOHOL 15 ML BOTTLE EACHEYE SCH ×3 (05:56→18:42)
[2018-10-23] MEDS: OMEPRAZOLE DR 20 MG GT SCH (05:56)
[2018-10-23] MEDS: BLOOD SUGAR DIAGNOSTIC 1 EACH STRIP IN SCH ×2 (06:00→18:49)
[2018-10-23] MEDS: INSULIN LISPRO/ASPART 100 UNIT/ML CARTRIDGE SQ PRN ×2 (06:01→18:49)
[2018-10-23 07:59] VITALS: BP 108/70
[2018-10-23] MEDS: DOCUSATE SODIUM LIQ 100 MG/10 ML UDC GT SCH ×2 (08:43→17:00)
[2018-10-23] MEDS: LEVETIRACETAM SOL (5 ML) 100 MG/ML UDC GT SCH ×2 (08:43→21:19)
[2018-10-23] MEDS: POTASSIUM CHLORIDE 20 MEQ POWDER PACKET GT SCH (08:43)
[2018-10-23] MEDS: FERROUS SULFATE - FOR SA ONLY 330 MG/7.5 ML UDC GT SCH ×3 (08:43→17:00)
[2018-10-23] MEDS: METFORMIN 850 MG TABLET GT SCH ×2 (08:43→17:00)
[2018-10-23] MEDS: PROSTAT (PYXIS) 30 ML UDC GT SCH ×2 (08:44→17:00)
[2018-10-23] MEDS: BACLOFEN (10 MG) 10 MG TABLET GT SCH ×3 (08:44→17:00)
[2018-10-23] MEDS: ASCORBIC ACID 500 MG TABLET GT SCH ×2 (08:44→17:00)
[2018-10-23] MEDS: HEPARIN SODIUM, PORCINE 5000 UNITS/1 ML VIAL SQ SCH ×2 (08:44→21:20)
[2018-10-23] MEDS: Z GUARD REMEDY 4 OZ OINT TP SCH ×2 (09:00→21:20)
[2018-10-23] MEDS: FUNGI NAIL TP SCH ×2 (09:00→21:20)
[2018-10-23] MEDS: HYDROGEN PEROXIDE 480 ML BOTTLE TP SCH ×2 (09:00→21:20)
--- NOTE | 2018-10-23 10:04 | NUR ---
RT Pt received trach'd and on [facility] vent w charted settings per md orders. Alarms are set and audible. Trach is secure and patent. Wool Tamper done. Hhn tx given and sx done prn w no adverse reactions. Bvm is at hob. No respiratory distress noted @ this time. Will continue to monitor. Addendum: 10/23/18 at 1004 by ANJUM FONG RT Amended: Links added.
--- NOTE | 2018-10-23 18:30 | NUR ---
Seen and examined by Mya Rodgers NP, no new order given.
[2018-10-23 20:10] VITALS: BP 103/62
[2018-10-23] MEDS: MULTIVIT W/MINERALS 1 TAB TABLET GT SCH (21:19)
[2018-10-23] MEDS: SENNOSIDES 8.6 MG TABLET GT SCH (21:20)
[2018-10-23] MEDS: INSULIN GLARGINE, 100 UNIT/ML CARTRIDGE SQ SCH (21:21)
[2018-10-24] MEDS: POLYVINYL ALCOHOL 15 ML BOTTLE EACHEYE SCH ×4 (00:20→17:52)
[2018-10-24] MEDS: IPRATROPIUM NEB FS 0.5 MG/2.5 ML AMPUL.NEB NEB SCH ×4 (01:05→20:02)
[2018-10-24] MEDS: ALBUTEROL FS 2.5 MG/3 ML VIAL.NEB NEB SCH ×4 (01:05→20:02)
[2018-10-24] MEDS: BLOOD SUGAR DIAGNOSTIC 1 EACH STRIP IN SCH ×2 (06:25→18:43)
[2018-10-24] MEDS: OMEPRAZOLE DR 20 MG GT SCH (06:25)
[2018-10-24] MEDS: INSULIN LISPRO/ASPART 100 UNIT/ML CARTRIDGE SQ PRN (06:26)
[2018-10-24 07:53] VITALS: BP 109/67
--- NOTE | 2018-10-24 09:00 | NUR ---
Seen and examined by Dr. Alvarez, no new order given.
[2018-10-24] MEDS: POTASSIUM CHLORIDE 20 MEQ POWDER PACKET GT SCH (09:01)
[2018-10-24] MEDS: ASCORBIC ACID 500 MG TABLET GT SCH ×2 (09:01→17:24)
[2018-10-24] MEDS: METFORMIN 850 MG TABLET GT SCH ×2 (09:01→17:24)
[2018-10-24] MEDS: FERROUS SULFATE - FOR SA ONLY 330 MG/7.5 ML UDC GT SCH ×3 (09:01→17:24)
[2018-10-24] MEDS: LEVETIRACETAM SOL (5 ML) 100 MG/ML UDC GT SCH ×2 (09:01→21:14)
[2018-10-24] MEDS: PROSTAT (PYXIS) 30 ML UDC GT SCH ×2 (09:01→17:24)
[2018-10-24] MEDS: BACLOFEN (10 MG) 10 MG TABLET GT SCH ×3 (09:01→17:24)
[2018-10-24] MEDS: HEPARIN SODIUM, PORCINE 5000 UNITS/1 ML VIAL SQ SCH ×2 (09:01→21:14)
[2018-10-24] MEDS: DOCUSATE SODIUM LIQ 100 MG/10 ML UDC GT SCH ×2 (09:01→17:24)
[2018-10-24] MEDS: Z GUARD REMEDY 4 OZ OINT TP SCH ×2 (09:02→21:15)
[2018-10-24] MEDS: HYDROGEN PEROXIDE 480 ML BOTTLE TP SCH ×2 (09:02→21:15)
[2018-10-24] MEDS: FUNGI NAIL TP SCH ×2 (09:02→21:15)
[2018-10-24 20:09] VITALS: BP 108/76
[2018-10-24] MEDS: MULTIVIT W/MINERALS 1 TAB TABLET GT SCH (21:14)
[2018-10-24] MEDS: SENNOSIDES 8.6 MG TABLET GT SCH (21:15)
[2018-10-24] MEDS: INSULIN GLARGINE, 100 UNIT/ML CARTRIDGE SQ SCH (21:16)
[2018-10-25] MEDS: POLYVINYL ALCOHOL 15 ML BOTTLE EACHEYE SCH ×4 (00:16→18:12)
[2018-10-25] MEDS: IPRATROPIUM NEB FS 0.5 MG/2.5 ML AMPUL.NEB NEB SCH ×4 (01:05→20:00)
[2018-10-25] MEDS: ALBUTEROL FS 2.5 MG/3 ML VIAL.NEB NEB SCH ×4 (01:05→20:00)
[2018-10-25] MEDS: OMEPRAZOLE DR 20 MG GT SCH (05:52)
[2018-10-25] MEDS: BLOOD SUGAR DIAGNOSTIC 1 EACH STRIP IN SCH ×2 (06:01→18:12)
[2018-10-25 07:50] VITALS: BP 103/72
[2018-10-25] MEDS: HEPARIN SODIUM, PORCINE 5000 UNITS/1 ML VIAL SQ SCH ×2 (08:09→21:05)
[2018-10-25] MEDS: METFORMIN 850 MG TABLET GT SCH ×2 (08:13→16:01)
[2018-10-25] MEDS: DOCUSATE SODIUM LIQ 100 MG/10 ML UDC GT SCH ×2 (08:13→16:01)
[2018-10-25] MEDS: POTASSIUM CHLORIDE 20 MEQ POWDER PACKET GT SCH (08:13)
[2018-10-25] MEDS: FERROUS SULFATE - FOR SA ONLY 330 MG/7.5 ML UDC GT SCH ×3 (08:13→16:01)
[2018-10-25] MEDS: LEVETIRACETAM SOL (5 ML) 100 MG/ML UDC GT SCH ×2 (08:13→21:04)
[2018-10-25] MEDS: ASCORBIC ACID 500 MG TABLET GT SCH ×2 (08:14→16:04)
[2018-10-25] MEDS: BACLOFEN (10 MG) 10 MG TABLET GT SCH ×3 (08:14→16:03)
[2018-10-25] MEDS: PROSTAT (PYXIS) 30 ML UDC GT SCH ×2 (08:14→16:03)
[2018-10-25] MEDS: Z GUARD REMEDY 4 OZ OINT TP SCH ×2 (09:54→21:05)
[2018-10-25] MEDS: FUNGI NAIL TP SCH ×2 (09:54→21:05)
[2018-10-25] MEDS: HYDROGEN PEROXIDE 480 ML BOTTLE TP SCH ×2 (09:54→21:05)
[2018-10-25] MEDS: INSULIN LISPRO/ASPART 100 UNIT/ML CARTRIDGE SQ PRN (18:13)
[2018-10-25 19:59] VITALS: BP 127/55
[2018-10-25] MEDS: MULTIVIT W/MINERALS 1 TAB TABLET GT SCH (21:04)
[2018-10-25] MEDS: SENNOSIDES 8.6 MG TABLET GT SCH (21:05)
[2018-10-25] MEDS: INSULIN GLARGINE, 100 UNIT/ML CARTRIDGE SQ SCH (22:21)
[2018-10-26] MEDS: POLYVINYL ALCOHOL 15 ML BOTTLE EACHEYE SCH ×5 (00:44→23:46)
[2018-10-26] MEDS: ALBUTEROL FS 2.5 MG/3 ML VIAL.NEB NEB SCH ×4 (01:33→19:56)
[2018-10-26] MEDS: IPRATROPIUM NEB FS 0.5 MG/2.5 ML AMPUL.NEB NEB SCH ×4 (01:33→19:56)
[2018-10-26] MEDS: OMEPRAZOLE DR 20 MG GT SCH (06:00)
[2018-10-26] MEDS: GLUCERNA 1.2 1,000 ML BOTTLE GT PRN (06:01)
[2018-10-26] MEDS: INSULIN LISPRO/ASPART 100 UNIT/ML CARTRIDGE SQ PRN ×2 (06:47→18:53)
[2018-10-26] MEDS: BLOOD SUGAR DIAGNOSTIC 1 EACH STRIP IN SCH ×2 (06:47→18:53)
[2018-10-26] MEDS: BACLOFEN (10 MG) 10 MG TABLET GT SCH ×3 (08:40→17:57)
[2018-10-26] MEDS: POTASSIUM CHLORIDE 20 MEQ POWDER PACKET GT SCH (08:40)
[2018-10-26] MEDS: FERROUS SULFATE - FOR SA ONLY 330 MG/7.5 ML UDC GT SCH ×3 (08:40→17:57)
[2018-10-26] MEDS: ASCORBIC ACID 500 MG TABLET GT SCH ×2 (08:40→17:57)
[2018-10-26] MEDS: METFORMIN 850 MG TABLET GT SCH ×2 (08:40→17:00)
[2018-10-26] MEDS: DOCUSATE SODIUM LIQ 100 MG/10 ML UDC GT SCH ×2 (08:40→17:57)
[2018-10-26] MEDS: PROSTAT (PYXIS) 30 ML UDC GT SCH ×2 (08:40→17:57)
[2018-10-26] MEDS: LEVETIRACETAM SOL (5 ML) 100 MG/ML UDC GT SCH ×2 (08:40→21:20)
[2018-10-26] MEDS: HYDROGEN PEROXIDE 480 ML BOTTLE TP SCH ×2 (08:41→21:20)
[2018-10-26] MEDS: FUNGI NAIL TP SCH ×2 (08:41→21:20)
[2018-10-26] MEDS: HEPARIN SODIUM, PORCINE 5000 UNITS/1 ML VIAL SQ SCH ×2 (08:41→21:20)
[2018-10-26] MEDS: Z GUARD REMEDY 4 OZ OINT TP SCH ×2 (08:42→21:20)
[2018-10-26 10:54] VITALS: BP 115/71
[2018-10-26 19:41] VITALS: BP 108/58
[2018-10-26 20:34] VITALS: BP 111/70
[2018-10-26] MEDS: MULTIVIT W/MINERALS 1 TAB TABLET GT SCH (21:20)
[2018-10-26] MEDS: SENNOSIDES 8.6 MG TABLET GT SCH (21:21)
[2018-10-26] MEDS: INSULIN GLARGINE, 100 UNIT/ML CARTRIDGE SQ SCH (21:23)
[2018-10-27] MEDS: ALBUTEROL FS 2.5 MG/3 ML VIAL.NEB NEB SCH ×4 (00:46→20:23)
[2018-10-27] MEDS: IPRATROPIUM NEB FS 0.5 MG/2.5 ML AMPUL.NEB NEB SCH ×4 (00:46→20:23)
[2018-10-27] MEDS: OMEPRAZOLE DR 20 MG GT SCH (05:13)
[2018-10-27] MEDS: POLYVINYL ALCOHOL 15 ML BOTTLE EACHEYE SCH ×3 (05:13→18:10)
[2018-10-27] MEDS: GLUCERNA 1.2 1,000 ML BOTTLE GT PRN (05:13)
[2018-10-27] MEDS: BLOOD SUGAR DIAGNOSTIC 1 EACH STRIP IN SCH ×2 (06:31→18:06)
[2018-10-27] MEDS: INSULIN LISPRO/ASPART 100 UNIT/ML CARTRIDGE SQ PRN ×2 (06:32→18:07)
[2018-10-27 07:54] VITALS: BP 123/78
[2018-10-27] MEDS: FERROUS SULFATE - FOR SA ONLY 330 MG/7.5 ML UDC GT SCH ×3 (09:00→16:22)
[2018-10-27] MEDS: FUNGI NAIL TP SCH ×2 (09:00→20:15)
[2018-10-27] MEDS: PROSTAT (PYXIS) 30 ML UDC GT SCH ×2 (09:00→16:23)
[2018-10-27] MEDS: HYDROGEN PEROXIDE 480 ML BOTTLE TP SCH ×2 (09:00→20:15)
[2018-10-27] MEDS: ASCORBIC ACID 500 MG TABLET GT SCH ×2 (09:00→16:23)
[2018-10-27] MEDS: POTASSIUM CHLORIDE 20 MEQ POWDER PACKET GT SCH (09:00)
[2018-10-27] MEDS: DOCUSATE SODIUM LIQ 100 MG/10 ML UDC GT SCH ×2 (09:00→16:22)
[2018-10-27] MEDS: Z GUARD REMEDY 4 OZ OINT TP SCH ×2 (09:00→20:15)
[2018-10-27] MEDS: LEVETIRACETAM SOL (5 ML) 100 MG/ML UDC GT SCH ×2 (09:00→20:10)
[2018-10-27] MEDS: BACLOFEN (10 MG) 10 MG TABLET GT SCH ×2 (09:00→13:03)
[2018-10-27] MEDS: HEPARIN SODIUM, PORCINE 5000 UNITS/1 ML VIAL SQ SCH ×2 (09:08→20:15)
[2018-10-27] MEDS ORDERED: DEXTROSE 50%-WATER 50 ML DISP.SYRIN IV PRN (14:30)
[2018-10-27] MEDS ORDERED: ALBUTEROL FS 2.5 MG/3 ML VIAL.NEB NEB PRN (14:30)
[2018-10-27] MEDS ORDERED: IPRATROPIUM NEB FS 0.5 MG/2.5 ML AMPUL.NEB IH PRN (14:30)
--- NOTE | 2018-10-27 14:30 | NUR ---
Reported to Dr. Alvarez that patient is receiving Baclofen 20mg. TID, patient's extremities flaccid. New order given to decrease Baclofen 10mg TID. Order carried out.
[2018-10-27] MEDS: METFORMIN 850 MG TABLET GT SCH (16:23)
[2018-10-27] MEDS ORDERED: BACLOFEN (10 MG) 10 MG TABLET GT SCH (17:00)
[2018-10-27] MEDS: MULTIVIT W/MINERALS 1 TAB TABLET GT SCH (20:10)
[2018-10-27 20:27] VITALS: BP 127/84
[2018-10-27] MEDS ORDERED: HEPARIN SODIUM, PORCINE 5000 UNITS/1 ML VIAL SQ SCH (21:00)
--- NOTE | 2018-10-27 21:10 | NUR ---
PT RCVD TRACH'D ON MECHANICAL VENT WITH CHARTED SETTINGS. HHN TX TOLERATED WELL. SX DONE. PT TRACH IS PATENT AND SECURE. AMBU BAG AT BEDSIDE. VENT PLUGGED INTO RED OUTLET. ALARMS ARE ON AND AUDIBLE. WILL CONTINUE TO MONITOR. Addendum: 10/27/18 at 2110 by CHAGO HOLMAN RT Amended: Links added.
[2018-10-27] MEDS: INSULIN GLARGINE, 100 UNIT/ML CARTRIDGE SQ SCH (21:21)
[2018-10-27] MEDS: SENNOSIDES 8.6 MG TABLET GT SCH (21:21)
[2018-10-28] MEDS: POLYVINYL ALCOHOL 15 ML BOTTLE EACHEYE SCH ×5 (00:04→23:22)
[2018-10-28] MEDS: ALBUTEROL FS 2.5 MG/3 ML VIAL.NEB NEB SCH ×4 (02:01→20:09)
[2018-10-28] MEDS: IPRATROPIUM NEB FS 0.5 MG/2.5 ML AMPUL.NEB NEB SCH ×4 (02:01→20:09)
[2018-10-28] MEDS: OMEPRAZOLE DR 20 MG GT SCH (05:40)
[2018-10-28] MEDS: GLUCERNA 1.2 1,000 ML BOTTLE GT PRN (05:41)
[2018-10-28] MEDS: BLOOD SUGAR DIAGNOSTIC 1 EACH STRIP IN SCH ×2 (06:05→19:00)
[2018-10-28] MEDS: INSULIN LISPRO/ASPART 100 UNIT/ML CARTRIDGE SQ PRN (06:06)
[2018-10-28 07:54] VITALS: BP 97/68
[2018-10-28] MEDS: DOCUSATE SODIUM LIQ 100 MG/10 ML UDC GT SCH ×2 (08:45→17:50)
[2018-10-28] MEDS: ASCORBIC ACID 500 MG TABLET GT SCH ×2 (08:45→17:51)
[2018-10-28] MEDS: POTASSIUM CHLORIDE 20 MEQ POWDER PACKET GT SCH (08:45)
[2018-10-28] MEDS: FERROUS SULFATE - FOR SA ONLY 330 MG/7.5 ML UDC GT SCH ×3 (08:45→17:50)
[2018-10-28] MEDS: BACLOFEN (10 MG) 10 MG TABLET GT SCH ×3 (08:45→17:51)
[2018-10-28] MEDS: LEVETIRACETAM SOL (5 ML) 100 MG/ML UDC GT SCH ×2 (08:45→20:09)
[2018-10-28] MEDS: PROSTAT (PYXIS) 30 ML UDC GT SCH ×2 (08:45→17:51)
[2018-10-28] MEDS: METFORMIN 850 MG TABLET GT SCH ×2 (08:45→17:50)
[2018-10-28] MEDS: HYDROGEN PEROXIDE 480 ML BOTTLE TP SCH ×2 (08:48→20:10)
[2018-10-28] MEDS: FUNGI NAIL TP SCH ×2 (08:48→20:10)
[2018-10-28] MEDS: HEPARIN SODIUM, PORCINE 5000 UNITS/1 ML VIAL SQ SCH ×2 (08:48→20:10)
[2018-10-28] MEDS: Z GUARD REMEDY 4 OZ OINT TP SCH ×2 (08:49→20:10)
[2018-10-28 19:36] VITALS: BP 100/74
[2018-10-28] MEDS: MULTIVIT W/MINERALS 1 TAB TABLET GT SCH (20:09)
--- NOTE | 2018-10-28 20:09 | NUR ---
RT NOTE PATIENT RECEIVED TRACH'D ON MECHANICAL VENT. NO SIGNS OF RESPIRATORY DISTRESS NOTED. TRACH IS PATENT AND SECURE. PATIENT IS TOLERATING CURRENT ORDERED VENT SETTINGS. MECHANICAL VENT IS PLUGGED INTO RED OUTLET. ALARMS ARE SET AND AUDIBLE. EMERGENCY EQUIPMENT AT PATIENT BEDSIDE. WILL CONTINUE TO MONITOR PATIENT. Addendum: 10/28/18 at 2039 by EVERARDO SMITH RT Amended: Links added.
[2018-10-28] MEDS: SENNOSIDES 8.6 MG TABLET GT SCH (21:14)
[2018-10-28] MEDS: INSULIN GLARGINE, 100 UNIT/ML CARTRIDGE SQ SCH (21:14)
[2018-10-29] MEDS: IPRATROPIUM NEB FS 0.5 MG/2.5 ML AMPUL.NEB NEB SCH ×4 (02:20→19:49)
[2018-10-29] MEDS: ALBUTEROL FS 2.5 MG/3 ML VIAL.NEB NEB SCH ×4 (02:21→19:49)
[2018-10-29] MEDS: POLYVINYL ALCOHOL 15 ML BOTTLE EACHEYE SCH ×3 (05:20→18:20)
[2018-10-29] MEDS: GLUCERNA 1.2 1,000 ML BOTTLE GT PRN (05:20)
[2018-10-29] MEDS: OMEPRAZOLE DR 20 MG GT SCH (05:20)
[2018-10-29] MEDS: BLOOD SUGAR DIAGNOSTIC 1 EACH STRIP IN SCH ×2 (07:00→18:56)
[2018-10-29 07:38] VITALS: BP 113/51
[2018-10-29 08:00] VITALS: BP 94/68
[2018-10-29] MEDS: METFORMIN 850 MG TABLET GT SCH ×2 (09:00→16:49)
[2018-10-29] MEDS: ASCORBIC ACID 500 MG TABLET GT SCH ×2 (09:02→16:50)
[2018-10-29] MEDS: HYDROGEN PEROXIDE 480 ML BOTTLE TP SCH ×2 (09:02→21:30)
[2018-10-29] MEDS: POTASSIUM CHLORIDE 20 MEQ POWDER PACKET GT SCH (09:02)
[2018-10-29] MEDS: DOCUSATE SODIUM LIQ 100 MG/10 ML UDC GT SCH ×2 (09:02→16:49)
[2018-10-29] MEDS: LEVETIRACETAM SOL (5 ML) 100 MG/ML UDC GT SCH ×2 (09:02→21:30)
[2018-10-29] MEDS: FERROUS SULFATE - FOR SA ONLY 330 MG/7.5 ML UDC GT SCH ×3 (09:02→16:49)
[2018-10-29] MEDS: HEPARIN SODIUM, PORCINE 5000 UNITS/1 ML VIAL SQ SCH ×2 (09:02→21:30)
[2018-10-29] MEDS: PROSTAT (PYXIS) 30 ML UDC GT SCH ×2 (09:02→16:50)
[2018-10-29] MEDS: BACLOFEN (10 MG) 10 MG TABLET GT SCH ×3 (09:02→16:50)
[2018-10-29] MEDS: Z GUARD REMEDY 4 OZ OINT TP SCH ×2 (09:03→21:31)
[2018-10-29] MEDS: FUNGI NAIL TP SCH ×2 (09:03→21:30)
--- NOTE | 2018-10-29 14:57 | NUR ---
RT NOTE: PATIENT RECEIVED TRACHED ON MECHANICAL VENT. ALARMS VERIFIED AND AUDIBLE. SUCTIONED AND LAVAGED MODERATE-LARGE AMOUNT OF THICK FISHMAN SECRETIONS. AMBU BAG AND [facility] AT [facility].
[2018-10-29 20:32] VITALS: BP 99/63
[2018-10-29] MEDS: MULTIVIT W/MINERALS 1 TAB TABLET GT SCH (21:30)
[2018-10-29] MEDS: SENNOSIDES 8.6 MG TABLET GT SCH (21:31)
[2018-10-29] MEDS: INSULIN GLARGINE, 100 UNIT/ML CARTRIDGE SQ SCH (21:32)
--- NOTE | 2018-10-29 21:32 | NUR ---
RT NOTE PATIENT WAS RECEIVED ON CONTINUOUS VENT SUPPORT ON NOTED VENT SETTINGS. HHN INLINE TREATMENT WAS GIVEN, NO ADVERSE REACTION NOTED ,PRN SUCTION WAS DONE. TRACH TUBE PATENT AND SECURED. ALARMS ON AND AUDIBLE. ZOIE AND KAREN ROTHMAN AT [facility]. WILL CONTINUE TO MONITOR PATIENT Addendum: 10/29/18 at 2132 by EDNA JUNIOR RT Amended: Links added.
[2018-10-30] MEDS: POLYVINYL ALCOHOL 15 ML BOTTLE EACHEYE SCH ×5 (00:09→23:23)
[2018-10-30] MEDS: IPRATROPIUM NEB FS 0.5 MG/2.5 ML AMPUL.NEB NEB SCH ×4 (01:46→19:59)
[2018-10-30] MEDS: ALBUTEROL FS 2.5 MG/3 ML VIAL.NEB NEB SCH ×4 (01:46→19:59)
[2018-10-30] MEDS: OMEPRAZOLE DR 20 MG GT SCH (06:23)
[2018-10-30] MEDS: INSULIN LISPRO/ASPART 100 UNIT/ML CARTRIDGE SQ PRN ×2 (06:27→18:17)
[2018-10-30] MEDS: BLOOD SUGAR DIAGNOSTIC 1 EACH STRIP IN SCH ×2 (06:27→18:17)
[2018-10-30 08:03] VITALS: BP 93/65
[2018-10-30] MEDS: LEVETIRACETAM SOL (5 ML) 100 MG/ML UDC GT SCH ×2 (08:46→20:38)
[2018-10-30] MEDS: PROSTAT (PYXIS) 30 ML UDC GT SCH ×2 (08:46→16:07)
[2018-10-30] MEDS: DOCUSATE SODIUM LIQ 100 MG/10 ML UDC GT SCH ×2 (08:46→16:07)
[2018-10-30] MEDS: FERROUS SULFATE - FOR SA ONLY 330 MG/7.5 ML UDC GT SCH ×3 (08:46→16:07)
[2018-10-30] MEDS: METFORMIN 850 MG TABLET GT SCH ×2 (08:46→16:07)
[2018-10-30] MEDS: BACLOFEN (10 MG) 10 MG TABLET GT SCH ×3 (08:46→16:07)
[2018-10-30] MEDS: ASCORBIC ACID 500 MG TABLET GT SCH ×2 (08:46→16:07)
[2018-10-30] MEDS: POTASSIUM CHLORIDE 20 MEQ POWDER PACKET GT SCH (08:46)
[2018-10-30] MEDS: HEPARIN SODIUM, PORCINE 5000 UNITS/1 ML VIAL SQ SCH ×2 (08:49→20:38)
[2018-10-30] MEDS: HYDROGEN PEROXIDE 480 ML BOTTLE TP SCH ×2 (09:00→20:39)
[2018-10-30] MEDS: FUNGI NAIL TP SCH ×2 (09:00→20:39)
[2018-10-30] MEDS: Z GUARD REMEDY 4 OZ OINT TP SCH ×2 (09:00→20:39)
[2018-10-30 20:10] VITALS: BP 109/65
[2018-10-30] MEDS: MULTIVIT W/MINERALS 1 TAB TABLET GT SCH (20:38)
[2018-10-30] MEDS: INSULIN GLARGINE, 100 UNIT/ML CARTRIDGE SQ SCH (21:59)
[2018-10-30] MEDS: SENNOSIDES 8.6 MG TABLET GT SCH (21:59)
[2018-10-31] MEDS: GLUCERNA 1.2 1,000 ML BOTTLE GT PRN (01:11)
[2018-10-31] MEDS: IPRATROPIUM NEB FS 0.5 MG/2.5 ML AMPUL.NEB NEB SCH ×4 (02:27→19:17)
[2018-10-31] MEDS: ALBUTEROL FS 2.5 MG/3 ML VIAL.NEB NEB SCH ×4 (02:28→19:17)
[2018-10-31] MEDS: OMEPRAZOLE DR 20 MG GT SCH (05:34)
[2018-10-31] MEDS: POLYVINYL ALCOHOL 15 ML BOTTLE EACHEYE SCH ×4 (05:34→23:54)
[2018-10-31] MEDS: BLOOD SUGAR DIAGNOSTIC 1 EACH STRIP IN SCH ×2 (06:17→18:50)
[2018-10-31] MEDS: INSULIN LISPRO/ASPART 100 UNIT/ML CARTRIDGE SQ PRN ×2 (06:17→18:50)
[2018-10-31 07:32] VITALS: BP 102/66
[2018-10-31] MEDS: FERROUS SULFATE - FOR SA ONLY 330 MG/7.5 ML UDC GT SCH ×3 (08:55→16:55)
[2018-10-31] MEDS: POTASSIUM CHLORIDE 20 MEQ POWDER PACKET GT SCH (08:55)
[2018-10-31] MEDS: METFORMIN 850 MG TABLET GT SCH ×2 (08:55→16:55)
[2018-10-31] MEDS: LEVETIRACETAM SOL (5 ML) 100 MG/ML UDC GT SCH ×2 (08:55→20:46)
[2018-10-31] MEDS: PROSTAT (PYXIS) 30 ML UDC GT SCH ×2 (08:55→16:55)
[2018-10-31] MEDS: ASCORBIC ACID 500 MG TABLET GT SCH ×2 (08:55→16:55)
[2018-10-31] MEDS: BACLOFEN (10 MG) 10 MG TABLET GT SCH ×3 (08:55→16:55)
[2018-10-31] MEDS: DOCUSATE SODIUM LIQ 100 MG/10 ML UDC GT SCH ×2 (08:55→16:55)
[2018-10-31] MEDS: HEPARIN SODIUM, PORCINE 5000 UNITS/1 ML VIAL SQ SCH ×2 (08:56→20:47)
[2018-10-31] MEDS: Z GUARD REMEDY 4 OZ OINT TP SCH ×2 (09:36→20:48)
[2018-10-31] MEDS: HYDROGEN PEROXIDE 480 ML BOTTLE TP SCH ×2 (09:36→20:47)
[2018-10-31] MEDS: FUNGI NAIL TP SCH ×2 (09:36→20:48)
[2018-10-31 20:44] VITALS: BP 88/65
[2018-10-31] MEDS: MULTIVIT W/MINERALS 1 TAB TABLET GT SCH (20:46)
[2018-10-31] MEDS: SENNOSIDES 8.6 MG TABLET GT SCH (21:40)
[2018-10-31] MEDS: INSULIN GLARGINE, 100 UNIT/ML CARTRIDGE SQ SCH (21:41)
[2018-11-01] MEDS: ALBUTEROL FS 2.5 MG/3 ML VIAL.NEB NEB SCH ×4 (00:46→19:58)
[2018-11-01] MEDS: IPRATROPIUM NEB FS 0.5 MG/2.5 ML AMPUL.NEB NEB SCH ×4 (00:46→19:58)
[2018-11-01] MEDS: POLYVINYL ALCOHOL 15 ML BOTTLE EACHEYE SCH ×3 (05:25→18:40)
[2018-11-01] MEDS: OMEPRAZOLE DR 20 MG GT SCH (05:25)
[2018-11-01] MEDS: GLUCERNA 1.2 1,000 ML BOTTLE GT PRN (05:28)
[2018-11-01] MEDS: BLOOD SUGAR DIAGNOSTIC 1 EACH STRIP IN SCH ×2 (06:16→18:40)
[2018-11-01] MEDS: INSULIN LISPRO/ASPART 100 UNIT/ML CARTRIDGE SQ PRN (06:17)
[2018-11-01 07:50] VITALS: BP 112/67
[2018-11-01] MEDS: LEVETIRACETAM SOL (5 ML) 100 MG/ML UDC GT SCH ×2 (09:00→20:21)
[2018-11-01] MEDS: HEPARIN SODIUM, PORCINE 5000 UNITS/1 ML VIAL SQ SCH ×2 (09:00→20:21)
[2018-11-01] MEDS: FUNGI NAIL TP SCH ×2 (09:00→20:22)
[2018-11-01] MEDS: PROSTAT (PYXIS) 30 ML UDC GT SCH ×2 (09:00→16:08)
[2018-11-01] MEDS: METFORMIN 850 MG TABLET GT SCH ×2 (09:00→16:08)
[2018-11-01] MEDS: Z GUARD REMEDY 4 OZ OINT TP SCH ×2 (09:00→20:22)
[2018-11-01] MEDS: ASCORBIC ACID 500 MG TABLET GT SCH ×2 (09:00→16:08)
[2018-11-01] MEDS: HYDROGEN PEROXIDE 480 ML BOTTLE TP SCH ×2 (09:00→20:21)
[2018-11-01] MEDS: DOCUSATE SODIUM LIQ 100 MG/10 ML UDC GT SCH ×2 (09:00→16:04)
[2018-11-01] MEDS: FERROUS SULFATE - FOR SA ONLY 330 MG/7.5 ML UDC GT SCH ×3 (09:00→16:04)
[2018-11-01] MEDS: POTASSIUM CHLORIDE 20 MEQ POWDER PACKET GT SCH (09:00)
[2018-11-01] MEDS: BACLOFEN (10 MG) 10 MG TABLET GT SCH ×3 (09:00→16:08)
[2018-11-01 20:11] VITALS: BP 112/74
[2018-11-01] MEDS: MULTIVIT W/MINERALS 1 TAB TABLET GT SCH (20:21)
[2018-11-01] MEDS: INSULIN GLARGINE, 100 UNIT/ML CARTRIDGE SQ SCH (22:04)
[2018-11-01] MEDS: SENNOSIDES 8.6 MG TABLET GT SCH (22:04)
[2018-11-02] MEDS: POLYVINYL ALCOHOL 15 ML BOTTLE EACHEYE SCH ×5 (00:41→23:18)
[2018-11-02] MEDS: IPRATROPIUM NEB FS 0.5 MG/2.5 ML AMPUL.NEB NEB SCH ×4 (01:53→19:38)
[2018-11-02] MEDS: ALBUTEROL FS 2.5 MG/3 ML VIAL.NEB NEB SCH ×4 (01:54→19:38)
[2018-11-02] MEDS: OMEPRAZOLE DR 20 MG GT SCH (05:08)
[2018-11-02] MEDS: GLUCERNA 1.2 1,000 ML BOTTLE GT PRN (05:25)
[2018-11-02] MEDS: BLOOD SUGAR DIAGNOSTIC 1 EACH STRIP IN SCH ×2 (06:07→18:23)
[2018-11-02] MEDS: INSULIN LISPRO/ASPART 100 UNIT/ML CARTRIDGE SQ PRN (06:09)
[2018-11-02 07:45] VITALS: BP 107/68
--- NOTE | 2018-11-02 08:01 | NUR ---
Received female trach pt unlabored on a mechanical vent. Pt trach is secure. Vent is plugged into a red outlet, alarms are set and audible, and BMV is at bedside. Addendum: 11/02/18 at 0802 by SHABNAM GROSSMAN RT Amended: Links added.
[2018-11-02] MEDS: METFORMIN 850 MG TABLET GT SCH ×2 (09:56→16:40)
[2018-11-02] MEDS: POTASSIUM CHLORIDE 20 MEQ POWDER PACKET GT SCH (09:56)
[2018-11-02] MEDS: LEVETIRACETAM SOL (5 ML) 100 MG/ML UDC GT SCH ×2 (09:56→20:27)
[2018-11-02] MEDS: PROSTAT (PYXIS) 30 ML UDC GT SCH ×2 (09:56→16:40)
[2018-11-02] MEDS: DOCUSATE SODIUM LIQ 100 MG/10 ML UDC GT SCH ×2 (09:56→16:40)
[2018-11-02] MEDS: FERROUS SULFATE - FOR SA ONLY 330 MG/7.5 ML UDC GT SCH ×3 (09:56→16:40)
[2018-11-02] MEDS: HEPARIN SODIUM, PORCINE 5000 UNITS/1 ML VIAL SQ SCH ×2 (09:56→20:28)
[2018-11-02] MEDS: ASCORBIC ACID 500 MG TABLET GT SCH ×2 (09:56→16:40)
[2018-11-02] MEDS: BACLOFEN (10 MG) 10 MG TABLET GT SCH ×3 (09:56→16:40)
[2018-11-02] MEDS: HYDROGEN PEROXIDE 480 ML BOTTLE TP SCH ×2 (09:57→20:28)
[2018-11-02] MEDS: FUNGI NAIL TP SCH ×2 (09:57→20:28)
[2018-11-02] MEDS: Z GUARD REMEDY 4 OZ OINT TP SCH ×2 (09:57→20:28)
--- NOTE | 2018-11-02 19:30 | NUR ---
Seen by LORENZO Rodgers with new orders to increased Lantus to 18 units SQ HS fo DM.Change the time for accu check to 6am to 6pm.
[2018-11-02 20:25] VITALS: BP 120/83
[2018-11-02] MEDS: MULTIVIT W/MINERALS 1 TAB TABLET GT SCH (20:27)
[2018-11-02] MEDS ORDERED: DEXTROSE 50%-WATER 50 ML DISP.SYRIN IV PRN (20:34)
[2018-11-02] MEDS: SENNOSIDES 8.6 MG TABLET GT SCH (21:15)
[2018-11-02] MEDS: INSULIN GLARGINE, 100 UNIT/ML CARTRIDGE SQ SCH (21:16)
[2018-11-03] MEDS: IPRATROPIUM NEB FS 0.5 MG/2.5 ML AMPUL.NEB NEB SCH ×4 (01:09→19:50)
[2018-11-03] MEDS: ALBUTEROL FS 2.5 MG/3 ML VIAL.NEB NEB SCH ×4 (01:10→19:50)
[2018-11-03] MEDS: OMEPRAZOLE DR 20 MG GT SCH (05:28)
[2018-11-03] MEDS: GLUCERNA 1.2 1,000 ML BOTTLE GT PRN (05:28)
[2018-11-03] MEDS: INSULIN LISPRO/ASPART 100 UNIT/ML CARTRIDGE SQ PRN (05:28)
[2018-11-03] MEDS: BLOOD SUGAR DIAGNOSTIC 1 EACH STRIP IN SCH ×2 (05:28→17:58)
[2018-11-03] MEDS: POLYVINYL ALCOHOL 15 ML BOTTLE EACHEYE SCH ×4 (05:28→23:24)
[2018-11-03 07:50] VITALS: BP 132/81
--- NOTE | 2018-11-03 08:21 | NUR ---
PT RCVD TRACH'D ON MECHANICAL VENT WITH CHARTED SETTINGS. HHN TX TUTU WELL. SX DONE. PT TRACH IS PATENT AND SECURE. VENT PLUGGED INTO RED OUTLET. ALARMS APPEAR TO BE FUNCTIONING PROPERLY. AMBU BAG AT BEDSIDE. WILL CONTINUE TO MONITOR. Addendum: 11/03/18 at 0822 by CHAGO HOLMAN RT Amended: Links added.
[2018-11-03] MEDS: FUNGI NAIL TP SCH ×2 (09:00→21:09)
[2018-11-03] MEDS: FERROUS SULFATE - FOR SA ONLY 330 MG/7.5 ML UDC GT SCH ×3 (09:00→16:16)
[2018-11-03] MEDS: METFORMIN 850 MG TABLET GT SCH ×2 (09:00→16:16)
[2018-11-03] MEDS: HEPARIN SODIUM, PORCINE 5000 UNITS/1 ML VIAL SQ SCH ×2 (09:00→21:09)
[2018-11-03] MEDS: LEVETIRACETAM SOL (5 ML) 100 MG/ML UDC GT SCH ×2 (09:00→21:09)
[2018-11-03] MEDS: HYDROGEN PEROXIDE 480 ML BOTTLE TP SCH ×2 (09:00→21:09)
[2018-11-03] MEDS: ASCORBIC ACID 500 MG TABLET GT SCH ×2 (09:00→16:16)
[2018-11-03] MEDS: POTASSIUM CHLORIDE 20 MEQ POWDER PACKET GT SCH (09:00)
[2018-11-03] MEDS: DOCUSATE SODIUM LIQ 100 MG/10 ML UDC GT SCH ×2 (09:00→16:15)
[2018-11-03] MEDS: PROSTAT (PYXIS) 30 ML UDC GT SCH ×2 (09:00→16:16)
[2018-11-03] MEDS: Z GUARD REMEDY 4 OZ OINT TP SCH ×2 (09:00→21:10)
[2018-11-03] MEDS: BACLOFEN (10 MG) 10 MG TABLET GT SCH ×3 (09:00→16:16)
[2018-11-03 19:33] VITALS: BP 111/70
[2018-11-03] MEDS: MULTIVIT W/MINERALS 1 TAB TABLET GT SCH (21:09)
[2018-11-03] MEDS: SENNOSIDES 8.6 MG TABLET GT SCH (21:10)
[2018-11-03] MEDS: INSULIN GLARGINE, 100 UNIT/ML CARTRIDGE SQ SCH (21:10)
[2018-11-04] MEDS: ALBUTEROL FS 2.5 MG/3 ML VIAL.NEB NEB SCH ×4 (01:10→19:38)
[2018-11-04] MEDS: IPRATROPIUM NEB FS 0.5 MG/2.5 ML AMPUL.NEB NEB SCH ×4 (01:10→19:38)
[2018-11-04] MEDS: GLUCERNA 1.2 1,000 ML BOTTLE GT PRN (05:16)
[2018-11-04] MEDS: OMEPRAZOLE DR 20 MG GT SCH (05:16)
[2018-11-04] MEDS: POLYVINYL ALCOHOL 15 ML BOTTLE EACHEYE SCH ×4 (05:16→23:45)
[2018-11-04] MEDS: INSULIN LISPRO/ASPART 100 UNIT/ML CARTRIDGE SQ PRN ×2 (05:22→18:16)
[2018-11-04] MEDS: BLOOD SUGAR DIAGNOSTIC 1 EACH STRIP IN SCH ×2 (05:22→18:15)
[2018-11-04 07:58] VITALS: BP 102/61
[2018-11-04] MEDS: HEPARIN SODIUM, PORCINE 5000 UNITS/1 ML VIAL SQ SCH ×2 (08:08→20:34)
[2018-11-04] MEDS: METFORMIN 850 MG TABLET GT SCH ×2 (08:13→16:08)
[2018-11-04] MEDS: LEVETIRACETAM SOL (5 ML) 100 MG/ML UDC GT SCH ×2 (08:13→20:32)
[2018-11-04] MEDS: BACLOFEN (10 MG) 10 MG TABLET GT SCH ×3 (08:13→16:08)
[2018-11-04] MEDS: ASCORBIC ACID 500 MG TABLET GT SCH ×2 (08:13→16:08)
[2018-11-04] MEDS: PROSTAT (PYXIS) 30 ML UDC GT SCH ×2 (08:13→16:08)
[2018-11-04] MEDS: POTASSIUM CHLORIDE 20 MEQ POWDER PACKET GT SCH (08:13)
[2018-11-04] MEDS: DOCUSATE SODIUM LIQ 100 MG/10 ML UDC GT SCH ×2 (08:13→16:08)
[2018-11-04] MEDS: FERROUS SULFATE - FOR SA ONLY 330 MG/7.5 ML UDC GT SCH ×3 (08:13→16:08)
[2018-11-04] MEDS: Z GUARD REMEDY 4 OZ OINT TP SCH ×2 (09:00→20:35)
[2018-11-04] MEDS: HYDROGEN PEROXIDE 480 ML BOTTLE TP SCH ×2 (09:00→20:35)
[2018-11-04] MEDS: FUNGI NAIL TP SCH ×2 (09:00→20:35)
[2018-11-04 19:36] VITALS: BP 129/74
[2018-11-04] MEDS: MULTIVIT W/MINERALS 1 TAB TABLET GT SCH (20:32)
[2018-11-04] MEDS: SENNOSIDES 8.6 MG TABLET GT SCH (21:05)
[2018-11-04] MEDS: INSULIN GLARGINE, 100 UNIT/ML CARTRIDGE SQ SCH (21:05)
[2018-11-05] MEDS: ALBUTEROL FS 2.5 MG/3 ML VIAL.NEB NEB SCH ×4 (02:29→19:57)
[2018-11-05] MEDS: IPRATROPIUM NEB FS 0.5 MG/2.5 ML AMPUL.NEB NEB SCH ×4 (02:29→19:57)
[2018-11-05] MEDS: POLYVINYL ALCOHOL 15 ML BOTTLE EACHEYE SCH ×3 (05:03→17:23)
[2018-11-05] MEDS: OMEPRAZOLE DR 20 MG GT SCH (05:03)
[2018-11-05] MEDS: GLUCERNA 1.2 1,000 ML BOTTLE GT PRN (05:04)
[2018-11-05] MEDS: INSULIN LISPRO/ASPART 100 UNIT/ML CARTRIDGE SQ PRN (06:21)
[2018-11-05] MEDS: BLOOD SUGAR DIAGNOSTIC 1 EACH STRIP IN SCH ×2 (06:21→17:31)
[2018-11-05 08:11] VITALS: BP 113/71
[2018-11-05] MEDS: LEVETIRACETAM SOL (5 ML) 100 MG/ML UDC GT SCH ×2 (09:00→21:15)
[2018-11-05] MEDS: ASCORBIC ACID 500 MG TABLET GT SCH ×2 (09:00→16:10)
[2018-11-05] MEDS: HEPARIN SODIUM, PORCINE 5000 UNITS/1 ML VIAL SQ SCH ×2 (09:00→21:16)
[2018-11-05] MEDS: POTASSIUM CHLORIDE 20 MEQ POWDER PACKET GT SCH (09:00)
[2018-11-05] MEDS: DOCUSATE SODIUM LIQ 100 MG/10 ML UDC GT SCH ×2 (09:00→16:10)
[2018-11-05] MEDS: Z GUARD REMEDY 4 OZ OINT TP SCH ×2 (09:00→21:16)
[2018-11-05] MEDS: FERROUS SULFATE - FOR SA ONLY 330 MG/7.5 ML UDC GT SCH ×3 (09:00→16:10)
[2018-11-05] MEDS: BACLOFEN (10 MG) 10 MG TABLET GT SCH ×3 (09:00→16:10)
[2018-11-05] MEDS: METFORMIN 850 MG TABLET GT SCH ×2 (09:00→16:10)
[2018-11-05] MEDS: FUNGI NAIL TP SCH ×2 (09:00→21:16)
[2018-11-05] MEDS: PROSTAT (PYXIS) 30 ML UDC GT SCH ×2 (09:00→16:10)
[2018-11-05] MEDS: HYDROGEN PEROXIDE 480 ML BOTTLE TP SCH ×2 (09:00→21:16)
[2018-11-05 20:00] VITALS: BP 105/73
[2018-11-05] MEDS: MULTIVIT W/MINERALS 1 TAB TABLET GT SCH (21:15)
[2018-11-05] MEDS: SENNOSIDES 8.6 MG TABLET GT SCH (21:16)
[2018-11-05] MEDS: INSULIN GLARGINE, 100 UNIT/ML CARTRIDGE SQ SCH (21:17)
--- NOTE | 2018-11-05 23:37 | NUR ---
PT RCVD TRACH'D ON MECHANICAL VENT WITH CHARTED SETTINGS. HHN TX TUTU WELL. SX DONE. PT TRACH IS PATENT AND SECURE. VENT PLUGGED INTO RED OUTLET. ALARMS APPEAR TO BE FUNCTIONING PROPERLY. AMBU BAG AT BEDSIDE. WILL CONTINUE TO MONITOR. Addendum: 11/05/18 at 2337 by CHAGO HOLMAN RT Amended: Links added.
[2018-11-06] MEDS: GLUCERNA 1.2 1,000 ML BOTTLE GT PRN (00:10)
[2018-11-06] MEDS: POLYVINYL ALCOHOL 15 ML BOTTLE EACHEYE SCH ×5 (00:10→23:25)
[2018-11-06] MEDS: IPRATROPIUM NEB FS 0.5 MG/2.5 ML AMPUL.NEB NEB SCH ×4 (01:06→19:16)
[2018-11-06] MEDS: ALBUTEROL FS 2.5 MG/3 ML VIAL.NEB NEB SCH ×4 (01:06→19:16)
[2018-11-06] MEDS: INSULIN LISPRO/ASPART 100 UNIT/ML CARTRIDGE SQ PRN ×2 (05:19→17:55)
[2018-11-06] MEDS: OMEPRAZOLE DR 20 MG GT SCH (05:19)
[2018-11-06] MEDS: BLOOD SUGAR DIAGNOSTIC 1 EACH STRIP IN SCH ×2 (05:19→17:47)
[2018-11-06] MEDS: HEPARIN SODIUM, PORCINE 5000 UNITS/1 ML VIAL SQ SCH ×2 (08:04→20:21)
[2018-11-06] MEDS: BACLOFEN (10 MG) 10 MG TABLET GT SCH ×3 (08:10→16:20)
[2018-11-06] MEDS: METFORMIN 850 MG TABLET GT SCH ×2 (08:10→16:20)
[2018-11-06] MEDS: FERROUS SULFATE - FOR SA ONLY 330 MG/7.5 ML UDC GT SCH ×3 (08:10→16:20)
[2018-11-06] MEDS: PROSTAT (PYXIS) 30 ML UDC GT SCH ×2 (08:10→16:20)
[2018-11-06] MEDS: POTASSIUM CHLORIDE 20 MEQ POWDER PACKET GT SCH (08:10)
[2018-11-06] MEDS: DOCUSATE SODIUM LIQ 100 MG/10 ML UDC GT SCH ×2 (08:10→16:20)
[2018-11-06] MEDS: LEVETIRACETAM SOL (5 ML) 100 MG/ML UDC GT SCH ×2 (08:10→20:21)
[2018-11-06] MEDS: ASCORBIC ACID 500 MG TABLET GT SCH ×2 (08:10→16:20)
[2018-11-06] MEDS: HYDROGEN PEROXIDE 480 ML BOTTLE TP SCH ×2 (09:56→20:21)
[2018-11-06] MEDS: Z GUARD REMEDY 4 OZ OINT TP SCH ×2 (09:57→20:22)
[2018-11-06] MEDS: FUNGI NAIL TP SCH ×2 (09:57→20:21)
[2018-11-06 13:24] VITALS: BP 114/70
[2018-11-06 20:14] VITALS: BP 109/71
[2018-11-06] MEDS: MULTIVIT W/MINERALS 1 TAB TABLET GT SCH (20:21)
[2018-11-06] MEDS: SENNOSIDES 8.6 MG TABLET GT SCH (21:37)
[2018-11-06] MEDS: INSULIN GLARGINE, 100 UNIT/ML CARTRIDGE SQ SCH (21:38)
[2018-11-07] MEDS: IPRATROPIUM NEB FS 0.5 MG/2.5 ML AMPUL.NEB NEB SCH ×4 (00:39→19:24)
[2018-11-07] MEDS: ALBUTEROL FS 2.5 MG/3 ML VIAL.NEB NEB SCH ×4 (00:39→19:24)
[2018-11-07] MEDS: POLYVINYL ALCOHOL 15 ML BOTTLE EACHEYE SCH ×4 (05:10→23:38)
[2018-11-07] MEDS: OMEPRAZOLE DR 20 MG GT SCH (05:10)
[2018-11-07] MEDS: GLUCERNA 1.2 1,000 ML BOTTLE GT PRN (05:10)
[2018-11-07] MEDS: BLOOD SUGAR DIAGNOSTIC 1 EACH STRIP IN SCH ×2 (06:00→17:24)
[2018-11-07] MEDS: INSULIN LISPRO/ASPART 100 UNIT/ML CARTRIDGE SQ PRN ×2 (06:01→17:25)
[2018-11-07 07:42] VITALS: BP 107/70
--- NOTE | 2018-11-07 07:58 | NUR ---
Female trach pt received unlabored on a mechanical vent. Pt trach is secure. Vent is plugged into a red outlet, alarms are set and audible, and BMV is at bedside. Addendum: 11/07/18 at 0758 by SHABNAM GROSSMAN RT Amended: Links added.
[2018-11-07] MEDS: METFORMIN 850 MG TABLET GT SCH ×2 (08:01→17:25)
[2018-11-07] MEDS: DOCUSATE SODIUM LIQ 100 MG/10 ML UDC GT SCH ×2 (08:01→17:25)
[2018-11-07] MEDS: FERROUS SULFATE - FOR SA ONLY 330 MG/7.5 ML UDC GT SCH ×3 (08:01→17:25)
[2018-11-07] MEDS: BACLOFEN (10 MG) 10 MG TABLET GT SCH ×3 (08:01→17:25)
[2018-11-07] MEDS: ASCORBIC ACID 500 MG TABLET GT SCH ×2 (08:01→17:25)
[2018-11-07] MEDS: LEVETIRACETAM SOL (5 ML) 100 MG/ML UDC GT SCH ×2 (08:01→20:23)
[2018-11-07] MEDS: POTASSIUM CHLORIDE 20 MEQ POWDER PACKET GT SCH (08:01)
[2018-11-07] MEDS: PROSTAT (PYXIS) 30 ML UDC GT SCH ×2 (08:02→17:25)
[2018-11-07] MEDS: HEPARIN SODIUM, PORCINE 5000 UNITS/1 ML VIAL SQ SCH ×2 (08:15→20:24)
[2018-11-07] MEDS: Z GUARD REMEDY 4 OZ OINT TP SCH ×2 (09:00→20:24)
[2018-11-07] MEDS: FUNGI NAIL TP SCH ×2 (09:00→20:24)
[2018-11-07] MEDS: HYDROGEN PEROXIDE 480 ML BOTTLE TP SCH ×2 (09:00→20:24)
[2018-11-07 19:48] VITALS: BP 122/72
[2018-11-07] MEDS: MULTIVIT W/MINERALS 1 TAB TABLET GT SCH (20:23)
[2018-11-07 20:36] VITALS: BP 113/75
[2018-11-07] MEDS: SENNOSIDES 8.6 MG TABLET GT SCH (21:17)
[2018-11-07] MEDS: INSULIN GLARGINE, 100 UNIT/ML CARTRIDGE SQ SCH (21:17)
[2018-11-08] MEDS: ALBUTEROL FS 2.5 MG/3 ML VIAL.NEB NEB SCH ×4 (02:17→20:10)
[2018-11-08] MEDS: IPRATROPIUM NEB FS 0.5 MG/2.5 ML AMPUL.NEB NEB SCH ×4 (02:17→20:10)
[2018-11-08] MEDS: POLYVINYL ALCOHOL 15 ML BOTTLE EACHEYE SCH ×4 (05:06→23:34)
[2018-11-08] MEDS: OMEPRAZOLE DR 20 MG GT SCH (05:06)
[2018-11-08] MEDS: BLOOD SUGAR DIAGNOSTIC 1 EACH STRIP IN SCH ×2 (05:52→18:07)
[2018-11-08] MEDS: INSULIN LISPRO/ASPART 100 UNIT/ML CARTRIDGE SQ PRN (05:53)
[2018-11-08 07:54] VITALS: BP 102/67
[2018-11-08] MEDS: POTASSIUM CHLORIDE 20 MEQ POWDER PACKET GT SCH (08:26)
[2018-11-08] MEDS: METFORMIN 850 MG TABLET GT SCH ×2 (08:26→16:39)
[2018-11-08] MEDS: FERROUS SULFATE - FOR SA ONLY 330 MG/7.5 ML UDC GT SCH ×3 (08:26→16:39)
[2018-11-08] MEDS: DOCUSATE SODIUM LIQ 100 MG/10 ML UDC GT SCH ×2 (08:26→16:39)
[2018-11-08] MEDS: LEVETIRACETAM SOL (5 ML) 100 MG/ML UDC GT SCH ×2 (08:26→21:17)
[2018-11-08] MEDS: BACLOFEN (10 MG) 10 MG TABLET GT SCH ×3 (08:27→16:39)
[2018-11-08] MEDS: HEPARIN SODIUM, PORCINE 5000 UNITS/1 ML VIAL SQ SCH ×2 (08:27→21:17)
[2018-11-08] MEDS: ASCORBIC ACID 500 MG TABLET GT SCH ×2 (08:27→16:39)
[2018-11-08] MEDS: PROSTAT (PYXIS) 30 ML UDC GT SCH ×2 (08:27→16:39)
[2018-11-08] MEDS: FUNGI NAIL TP SCH ×2 (08:28→21:17)
[2018-11-08] MEDS: HYDROGEN PEROXIDE 480 ML BOTTLE TP SCH ×2 (08:28→21:17)
[2018-11-08] MEDS: Z GUARD REMEDY 4 OZ OINT TP SCH ×2 (08:28→21:18)
[2018-11-08 20:19] VITALS: BP 121/79
[2018-11-08] MEDS: MULTIVIT W/MINERALS 1 TAB TABLET GT SCH (21:17)
[2018-11-08] MEDS: INSULIN GLARGINE, 100 UNIT/ML CARTRIDGE SQ SCH (21:18)
[2018-11-08] MEDS: SENNOSIDES 8.6 MG TABLET GT SCH (21:18)
[2018-11-09] MEDS: IPRATROPIUM NEB FS 0.5 MG/2.5 ML AMPUL.NEB NEB SCH ×4 (01:24→19:42)
[2018-11-09] MEDS: ALBUTEROL FS 2.5 MG/3 ML VIAL.NEB NEB SCH ×4 (01:24→19:42)
[2018-11-09] MEDS: POLYVINYL ALCOHOL 15 ML BOTTLE EACHEYE SCH ×3 (05:03→17:51)
[2018-11-09] MEDS: OMEPRAZOLE DR 20 MG GT SCH (05:03)
[2018-11-09] MEDS: GLUCERNA 1.2 1,000 ML BOTTLE GT PRN (05:18)
[2018-11-09] MEDS: INSULIN LISPRO/ASPART 100 UNIT/ML CARTRIDGE SQ PRN ×2 (06:05→17:52)
[2018-11-09] MEDS: BLOOD SUGAR DIAGNOSTIC 1 EACH STRIP IN SCH ×2 (06:05→17:51)
[2018-11-09 07:38] VITALS: BP 116/71
--- NOTE | 2018-11-09 08:00 | NUR ---
Female pt received unlabored on a mechanical vent. Pt trach is secure. Vent is plugged into a red outlet, alarms are set and audible, and BMV is at bedside. Addendum: 11/09/18 at 0801 by SHABNAM GROSSMAN RT Amended: Links added.
[2018-11-09] MEDS: FERROUS SULFATE - FOR SA ONLY 330 MG/7.5 ML UDC GT SCH ×3 (09:33→17:51)
[2018-11-09] MEDS: LEVETIRACETAM SOL (5 ML) 100 MG/ML UDC GT SCH ×2 (09:33→21:00)
[2018-11-09] MEDS: ASCORBIC ACID 500 MG TABLET GT SCH ×2 (09:33→17:51)
[2018-11-09] MEDS: METFORMIN 850 MG TABLET GT SCH ×2 (09:33→17:51)
[2018-11-09] MEDS: PROSTAT (PYXIS) 30 ML UDC GT SCH ×2 (09:33→17:51)
[2018-11-09] MEDS: POTASSIUM CHLORIDE 20 MEQ POWDER PACKET GT SCH (09:33)
[2018-11-09] MEDS: BACLOFEN (10 MG) 10 MG TABLET GT SCH ×3 (09:33→17:51)
[2018-11-09] MEDS: DOCUSATE SODIUM LIQ 100 MG/10 ML UDC GT SCH ×2 (09:33→17:51)
[2018-11-09] MEDS: FUNGI NAIL TP SCH ×2 (09:34→21:00)
[2018-11-09] MEDS: HEPARIN SODIUM, PORCINE 5000 UNITS/1 ML VIAL SQ SCH ×2 (09:34→21:00)
[2018-11-09] MEDS: Z GUARD REMEDY 4 OZ OINT TP SCH ×2 (09:34→21:00)
[2018-11-09] MEDS: HYDROGEN PEROXIDE 480 ML BOTTLE TP SCH ×2 (09:34→21:00)
[2018-11-09 21:00] VITALS: BP 108/75
[2018-11-09] MEDS: MULTIVIT W/MINERALS 1 TAB TABLET GT SCH (21:00)
[2018-11-09] MEDS: SENNOSIDES 8.6 MG TABLET GT SCH (22:06)
[2018-11-09] MEDS: INSULIN GLARGINE, 100 UNIT/ML CARTRIDGE SQ SCH (22:07)
[2018-11-10] MEDS: POLYVINYL ALCOHOL 15 ML BOTTLE EACHEYE SCH ×5 (00:10→23:40)
[2018-11-10] MEDS: GLUCERNA 1.2 1,000 ML BOTTLE GT PRN ×2 (00:13→22:09)
[2018-11-10] MEDS: IPRATROPIUM NEB FS 0.5 MG/2.5 ML AMPUL.NEB NEB SCH ×4 (01:21→19:45)
[2018-11-10] MEDS: ALBUTEROL FS 2.5 MG/3 ML VIAL.NEB NEB SCH ×4 (01:21→19:45)
[2018-11-10] MEDS: OMEPRAZOLE DR 20 MG GT SCH (05:23)
[2018-11-10] MEDS: BLOOD SUGAR DIAGNOSTIC 1 EACH STRIP IN SCH ×2 (06:03→18:26)
[2018-11-10] MEDS: INSULIN LISPRO/ASPART 100 UNIT/ML CARTRIDGE SQ PRN ×2 (06:03→18:28)
[2018-11-10] MEDS: POLYETHYLENE GLYCOL 3350 17 GM POWD.PACK GT PRN (06:45)
[2018-11-10 07:44] VITALS: BP 104/64
[2018-11-10] MEDS: METFORMIN 850 MG TABLET GT SCH ×2 (09:02→17:00)
[2018-11-10] MEDS: LEVETIRACETAM SOL (5 ML) 100 MG/ML UDC GT SCH ×2 (09:02→21:03)
[2018-11-10] MEDS: DOCUSATE SODIUM LIQ 100 MG/10 ML UDC GT SCH ×2 (09:02→17:00)
[2018-11-10] MEDS: FERROUS SULFATE - FOR SA ONLY 330 MG/7.5 ML UDC GT SCH ×3 (09:02→17:00)
[2018-11-10] MEDS: PROSTAT (PYXIS) 30 ML UDC GT SCH ×2 (09:03→17:00)
[2018-11-10] MEDS: BACLOFEN (10 MG) 10 MG TABLET GT SCH ×3 (09:03→17:00)
[2018-11-10] MEDS: FUNGI NAIL TP SCH ×2 (09:03→21:04)
[2018-11-10] MEDS: ASCORBIC ACID 500 MG TABLET GT SCH ×2 (09:03→17:00)
[2018-11-10] MEDS: HEPARIN SODIUM, PORCINE 5000 UNITS/1 ML VIAL SQ SCH ×2 (09:03→21:04)
[2018-11-10] MEDS: HYDROGEN PEROXIDE 480 ML BOTTLE TP SCH ×2 (09:03→21:04)
[2018-11-10] MEDS: POTASSIUM CHLORIDE 20 MEQ POWDER PACKET GT SCH (09:03)
[2018-11-10] MEDS: Z GUARD REMEDY 4 OZ OINT TP SCH ×2 (09:04→21:04)
--- NOTE | 2018-11-10 10:06 | NUR ---
IDT meeting was held today. Resident's family member Bere could not attend it. Dr. Alvarez and the interdisciplinary team discussed the current plan of care in detail. Current orders as well as treatments and medications were reviewed. No new orders.
[2018-11-10 19:37] VITALS: BP 110/67
--- NOTE | 2018-11-10 20:13 | NUR ---
RT NOTE PATIENT RECEIVED ON MECHANICAL VENTILATION. AMBU BAG/BACK UP TRACH @ BEDSIDE. VENT PLUGGED INTO RED OUTLET. TX GIVEN, NO ADVERSE REACTIONS NOTED. SX DONE, MODERATE THICK WHITE SECRETIONS NOTED. ALARMS ON AND AUDIBLE. PATIENT STABLE. WILL MONITOR T/O SHIFT. Addendum: 11/10/18 at 2013 by ABIOLA COMBS RT Amended: Links added.
[2018-11-10] MEDS: MULTIVIT W/MINERALS 1 TAB TABLET GT SCH (21:03)
[2018-11-10] MEDS: SENNOSIDES 8.6 MG TABLET GT SCH (21:04)
[2018-11-10] MEDS: INSULIN GLARGINE, 100 UNIT/ML CARTRIDGE SQ SCH (22:09)
[2018-11-11] MEDS: ALBUTEROL FS 2.5 MG/3 ML VIAL.NEB NEB SCH ×4 (01:23→19:20)
[2018-11-11] MEDS: IPRATROPIUM NEB FS 0.5 MG/2.5 ML AMPUL.NEB NEB SCH ×4 (01:23→19:20)
[2018-11-11] MEDS: OMEPRAZOLE DR 20 MG GT SCH (05:12)
[2018-11-11] MEDS: POLYVINYL ALCOHOL 15 ML BOTTLE EACHEYE SCH ×4 (05:12→23:51)
[2018-11-11] MEDS: BLOOD SUGAR DIAGNOSTIC 1 EACH STRIP IN SCH ×2 (05:42→18:38)
[2018-11-11] MEDS: INSULIN LISPRO/ASPART 100 UNIT/ML CARTRIDGE SQ PRN ×2 (05:43→18:38)
[2018-11-11 08:07] VITALS: BP 107/67
[2018-11-11] MEDS: DOCUSATE SODIUM LIQ 100 MG/10 ML UDC GT SCH ×2 (09:19→16:17)
[2018-11-11] MEDS: LEVETIRACETAM SOL (5 ML) 100 MG/ML UDC GT SCH ×2 (09:19→20:31)
[2018-11-11] MEDS: BACLOFEN (10 MG) 10 MG TABLET GT SCH ×3 (09:19→16:17)
[2018-11-11] MEDS: POTASSIUM CHLORIDE 20 MEQ POWDER PACKET GT SCH (09:19)
[2018-11-11] MEDS: METFORMIN 850 MG TABLET GT SCH ×2 (09:19→16:17)
[2018-11-11] MEDS: PROSTAT (PYXIS) 30 ML UDC GT SCH ×2 (09:19→16:17)
[2018-11-11] MEDS: FERROUS SULFATE - FOR SA ONLY 330 MG/7.5 ML UDC GT SCH ×3 (09:19→16:17)
[2018-11-11] MEDS: ASCORBIC ACID 500 MG TABLET GT SCH ×2 (09:19→16:17)
[2018-11-11] MEDS: FUNGI NAIL TP SCH ×2 (09:20→20:32)
[2018-11-11] MEDS: HYDROGEN PEROXIDE 480 ML BOTTLE TP SCH ×2 (09:20→20:32)
[2018-11-11] MEDS: Z GUARD REMEDY 4 OZ OINT TP SCH ×2 (09:20→20:32)
[2018-11-11] MEDS: HEPARIN SODIUM, PORCINE 5000 UNITS/1 ML VIAL SQ SCH ×2 (09:20→20:32)
[2018-11-11 19:45] VITALS: BP 108/60
[2018-11-11] MEDS: MULTIVIT W/MINERALS 1 TAB TABLET GT SCH (20:31)
[2018-11-11] MEDS: SENNOSIDES 8.6 MG TABLET GT SCH (21:51)
[2018-11-11] MEDS: INSULIN GLARGINE, 100 UNIT/ML CARTRIDGE SQ SCH (21:52)
[2018-11-11] MEDS: GLUCERNA 1.2 1,000 ML BOTTLE GT PRN (21:53)
[2018-11-12] MEDS: ALBUTEROL FS 2.5 MG/3 ML VIAL.NEB NEB SCH ×4 (01:12→20:01)
[2018-11-12] MEDS: IPRATROPIUM NEB FS 0.5 MG/2.5 ML AMPUL.NEB NEB SCH ×4 (01:12→20:01)
[2018-11-12] MEDS: POLYVINYL ALCOHOL 15 ML BOTTLE EACHEYE SCH ×4 (05:52→23:36)
[2018-11-12] MEDS: OMEPRAZOLE DR 20 MG GT SCH (05:52)
[2018-11-12] MEDS: INSULIN LISPRO/ASPART 100 UNIT/ML CARTRIDGE SQ PRN (05:52)
[2018-11-12] MEDS: BLOOD SUGAR DIAGNOSTIC 1 EACH STRIP IN SCH ×2 (05:52→18:05)
[2018-11-12 07:57] VITALS: BP 96/64
[2018-11-12] MEDS: Z GUARD REMEDY 4 OZ OINT TP SCH ×2 (09:28→20:08)
[2018-11-12] MEDS: METFORMIN 850 MG TABLET GT SCH ×2 (09:28→17:16)
[2018-11-12] MEDS: PROSTAT (PYXIS) 30 ML UDC GT SCH ×2 (09:28→17:16)
[2018-11-12] MEDS: LEVETIRACETAM SOL (5 ML) 100 MG/ML UDC GT SCH ×2 (09:28→20:07)
[2018-11-12] MEDS: BACLOFEN (10 MG) 10 MG TABLET GT SCH ×3 (09:28→17:16)
[2018-11-12] MEDS: POTASSIUM CHLORIDE 20 MEQ POWDER PACKET GT SCH (09:28)
[2018-11-12] MEDS: HYDROGEN PEROXIDE 480 ML BOTTLE TP SCH ×2 (09:28→20:08)
[2018-11-12] MEDS: FUNGI NAIL TP SCH ×2 (09:28→20:08)
[2018-11-12] MEDS: DOCUSATE SODIUM LIQ 100 MG/10 ML UDC GT SCH ×2 (09:28→17:16)
[2018-11-12] MEDS: FERROUS SULFATE - FOR SA ONLY 330 MG/7.5 ML UDC GT SCH ×3 (09:28→17:16)
[2018-11-12] MEDS: HEPARIN SODIUM, PORCINE 5000 UNITS/1 ML VIAL SQ SCH ×2 (09:28→20:07)
[2018-11-12] MEDS: ASCORBIC ACID 500 MG TABLET GT SCH ×2 (09:28→17:16)
--- NOTE | 2018-11-12 10:45 | NUR ---
Neurologist Dr. Valerio saw patient, he noted the continuos tongue movement, he ordered additional keppra 500 mg via GT now and increase Keppra 1000 mg via GT Q 12 hrs (seizure disorder). Noted and carried out. Patient closely monitored.
[2018-11-12] MEDS ORDERED: LEVETIRACETAM SOL (5 ML) 100 MG/ML UDC GT ONE (11:30)
[2018-11-12] MEDS: MULTIVIT W/MINERALS 1 TAB TABLET GT SCH (20:07)
[2018-11-12 21:13] VITALS: BP 104/62
[2018-11-12] MEDS: SENNOSIDES 8.6 MG TABLET GT SCH (21:50)
[2018-11-12] MEDS: INSULIN GLARGINE, 100 UNIT/ML CARTRIDGE SQ SCH (22:24)
[2018-11-12] MEDS: GLUCERNA 1.2 1,000 ML BOTTLE GT PRN (23:36)
[2018-11-13] MEDS: ALBUTEROL FS 2.5 MG/3 ML VIAL.NEB NEB SCH ×4 (01:47→19:27)
[2018-11-13] MEDS: IPRATROPIUM NEB FS 0.5 MG/2.5 ML AMPUL.NEB NEB SCH ×4 (01:47→19:27)
[2018-11-13] MEDS: POLYVINYL ALCOHOL 15 ML BOTTLE EACHEYE SCH ×4 (05:24→23:48)
[2018-11-13] MEDS: OMEPRAZOLE DR 20 MG GT SCH (05:24)
[2018-11-13] MEDS: BLOOD SUGAR DIAGNOSTIC 1 EACH STRIP IN SCH ×2 (05:25→17:09)
[2018-11-13] MEDS: INSULIN LISPRO/ASPART 100 UNIT/ML CARTRIDGE SQ PRN ×2 (05:25→17:09)
[2018-11-13 07:53] VITALS: BP 95/59
[2018-11-13] MEDS: PROSTAT (PYXIS) 30 ML UDC GT SCH ×2 (09:00→16:24)
[2018-11-13] MEDS: LEVETIRACETAM SOL (5 ML) 100 MG/ML UDC GT SCH ×2 (09:00→20:10)
[2018-11-13] MEDS: POTASSIUM CHLORIDE 20 MEQ POWDER PACKET GT SCH (09:00)
[2018-11-13] MEDS: BACLOFEN (10 MG) 10 MG TABLET GT SCH ×3 (09:00→16:24)
[2018-11-13] MEDS: METFORMIN 850 MG TABLET GT SCH ×2 (09:00→16:24)
[2018-11-13] MEDS: HEPARIN SODIUM, PORCINE 5000 UNITS/1 ML VIAL SQ SCH ×2 (09:00→20:12)
[2018-11-13] MEDS: ASCORBIC ACID 500 MG TABLET GT SCH ×2 (09:00→16:24)
[2018-11-13] MEDS: Z GUARD REMEDY 4 OZ OINT TP SCH ×2 (09:00→20:12)
[2018-11-13] MEDS: DOCUSATE SODIUM LIQ 100 MG/10 ML UDC GT SCH ×2 (09:00→16:24)
[2018-11-13] MEDS: HYDROGEN PEROXIDE 480 ML BOTTLE TP SCH ×2 (09:00→20:12)
[2018-11-13] MEDS: FUNGI NAIL TP SCH ×2 (09:00→20:12)
[2018-11-13] MEDS: FERROUS SULFATE - FOR SA ONLY 330 MG/7.5 ML UDC GT SCH ×3 (09:00→16:24)
[2018-11-13 20:05] VITALS: BP 106/66
[2018-11-13] MEDS: MULTIVIT W/MINERALS 1 TAB TABLET GT SCH (20:10)
[2018-11-13] MEDS: SENNOSIDES 8.6 MG TABLET GT SCH (21:40)
[2018-11-13] MEDS: INSULIN GLARGINE, 100 UNIT/ML CARTRIDGE SQ SCH (21:41)
[2018-11-14] MEDS: ALBUTEROL FS 2.5 MG/3 ML VIAL.NEB NEB SCH ×4 (01:15→19:10)
[2018-11-14] MEDS: IPRATROPIUM NEB FS 0.5 MG/2.5 ML AMPUL.NEB NEB SCH ×4 (01:15→19:10)
[2018-11-14] MEDS: BLOOD SUGAR DIAGNOSTIC 1 EACH STRIP IN SCH ×2 (05:00→18:13)
[2018-11-14] MEDS: OMEPRAZOLE DR 20 MG GT SCH (05:00)
[2018-11-14] MEDS: POLYVINYL ALCOHOL 15 ML BOTTLE EACHEYE SCH ×3 (05:00→18:13)
[2018-11-14] MEDS: INSULIN LISPRO/ASPART 100 UNIT/ML CARTRIDGE SQ PRN ×2 (05:01→18:13)
[2018-11-14] MEDS: GLUCERNA 1.2 1,000 ML BOTTLE GT PRN (05:03)
[2018-11-14 07:34] VITALS: BP 115/63
--- NOTE | 2018-11-14 07:53 | NUR ---
Received a female sergio pt on a mechanical vent. PT sergio is secure. Vent is plugged into a red outlet, alarms are set and audible, and BMV is at bedside. Addendum: 11/14/18 at 0754 by SHABNAM GROSSMAN RT Amended: Links added.
[2018-11-14] MEDS: LEVETIRACETAM SOL (5 ML) 100 MG/ML UDC GT SCH ×2 (08:49→20:22)
[2018-11-14] MEDS: PROSTAT (PYXIS) 30 ML UDC GT SCH ×2 (08:49→17:00)
[2018-11-14] MEDS: POTASSIUM CHLORIDE 20 MEQ POWDER PACKET GT SCH (08:49)
[2018-11-14] MEDS: FERROUS SULFATE - FOR SA ONLY 330 MG/7.5 ML UDC GT SCH ×3 (08:49→17:00)
[2018-11-14] MEDS: METFORMIN 850 MG TABLET GT SCH ×2 (08:49→17:00)
[2018-11-14] MEDS: DOCUSATE SODIUM LIQ 100 MG/10 ML UDC GT SCH ×2 (08:49→17:00)
[2018-11-14] MEDS: BACLOFEN (10 MG) 10 MG TABLET GT SCH ×3 (08:49→17:00)
[2018-11-14] MEDS: ASCORBIC ACID 500 MG TABLET GT SCH ×2 (08:50→17:00)
[2018-11-14] MEDS: HYDROGEN PEROXIDE 480 ML BOTTLE TP SCH ×2 (08:50→20:24)
[2018-11-14] MEDS: HEPARIN SODIUM, PORCINE 5000 UNITS/1 ML VIAL SQ SCH ×2 (08:50→20:23)
[2018-11-14] MEDS: FUNGI NAIL TP SCH ×2 (08:50→20:24)
[2018-11-14] MEDS: Z GUARD REMEDY 4 OZ OINT TP SCH ×2 (08:51→20:24)
[2018-11-14] MEDS: MULTIVIT W/MINERALS 1 TAB TABLET GT SCH (20:22)
[2018-11-14 20:54] VITALS: BP 108/73
[2018-11-14] MEDS: SENNOSIDES 8.6 MG TABLET GT SCH (21:40)
[2018-11-14] MEDS: INSULIN GLARGINE, 100 UNIT/ML CARTRIDGE SQ SCH (21:40)
[2018-11-15] MEDS: POLYVINYL ALCOHOL 15 ML BOTTLE EACHEYE SCH ×4 (00:06→17:11)
[2018-11-15] MEDS: IPRATROPIUM NEB FS 0.5 MG/2.5 ML AMPUL.NEB NEB SCH ×4 (00:48→20:22)
[2018-11-15] MEDS: ALBUTEROL FS 2.5 MG/3 ML VIAL.NEB NEB SCH ×4 (00:49→20:22)
[2018-11-15] MEDS: GLUCERNA 1.2 1,000 ML BOTTLE GT PRN (03:42)
[2018-11-15] MEDS: OMEPRAZOLE DR 20 MG GT SCH (06:11)
[2018-11-15] MEDS: INSULIN LISPRO/ASPART 100 UNIT/ML CARTRIDGE SQ PRN ×2 (06:11→17:41)
[2018-11-15] MEDS: BLOOD SUGAR DIAGNOSTIC 1 EACH STRIP IN SCH ×2 (06:11→17:40)
[2018-11-15 08:07] VITALS: BP 101/67
[2018-11-15] MEDS: FERROUS SULFATE - FOR SA ONLY 330 MG/7.5 ML UDC GT SCH ×3 (08:24→17:11)
[2018-11-15] MEDS: METFORMIN 850 MG TABLET GT SCH ×2 (08:24→17:11)
[2018-11-15] MEDS: LEVETIRACETAM SOL (5 ML) 100 MG/ML UDC GT SCH ×2 (08:24→20:28)
[2018-11-15] MEDS: DOCUSATE SODIUM LIQ 100 MG/10 ML UDC GT SCH ×2 (08:24→17:11)
[2018-11-15] MEDS: POTASSIUM CHLORIDE 20 MEQ POWDER PACKET GT SCH (08:24)
[2018-11-15] MEDS: BACLOFEN (10 MG) 10 MG TABLET GT SCH ×3 (08:24→17:11)
[2018-11-15] MEDS: PROSTAT (PYXIS) 30 ML UDC GT SCH ×2 (08:24→17:11)
[2018-11-15] MEDS: ASCORBIC ACID 500 MG TABLET GT SCH ×2 (08:24→17:11)
[2018-11-15] MEDS: HEPARIN SODIUM, PORCINE 5000 UNITS/1 ML VIAL SQ SCH ×2 (08:25→20:29)
[2018-11-15] MEDS: Z GUARD REMEDY 4 OZ OINT TP SCH ×2 (09:00→20:30)
[2018-11-15] MEDS: FUNGI NAIL TP SCH ×2 (09:00→20:29)
[2018-11-15] MEDS: HYDROGEN PEROXIDE 480 ML BOTTLE TP SCH ×2 (09:00→20:29)
--- NOTE | 2018-11-15 20:22 | NUR ---
RECEIVED TRACH PT ON MECH VENT ON NOTED SETTINGS PER MD ORDERS. TRACH IS PATENT AND SECURED. TENTERING MACHINE OFF BEARER DONE. Q6 BREATHING TX GIVEN WITH NO ADVERSE REACTION NOTED. SX DONE PRN. VENT PLUGGED INTO RED OUTLET. ALARMS ON AND AUDIBLE. AMBU BAG @ BEDSIDE. NO RESP DISTRESS AT THIS TIME. WILL CONT TO MONITOR PT.
[2018-11-15 20:28] VITALS: BP 103/65
[2018-11-15] MEDS: MULTIVIT W/MINERALS 1 TAB TABLET GT SCH (20:28)
[2018-11-15] MEDS: SENNOSIDES 8.6 MG TABLET GT SCH (22:49)
[2018-11-15] MEDS: INSULIN GLARGINE, 100 UNIT/ML CARTRIDGE SQ SCH (22:50)
[2018-11-16] MEDS: GLUCERNA 1.2 1,000 ML BOTTLE GT PRN (00:02)
[2018-11-16] MEDS: POLYVINYL ALCOHOL 15 ML BOTTLE EACHEYE SCH ×4 (00:02→17:31)
[2018-11-16] MEDS: IPRATROPIUM NEB FS 0.5 MG/2.5 ML AMPUL.NEB NEB SCH ×4 (01:54→19:30)
[2018-11-16] MEDS: ALBUTEROL FS 2.5 MG/3 ML VIAL.NEB NEB SCH ×4 (01:54→19:30)
[2018-11-16] MEDS: INSULIN LISPRO/ASPART 100 UNIT/ML CARTRIDGE SQ PRN ×2 (05:29→17:32)
[2018-11-16] MEDS: BLOOD SUGAR DIAGNOSTIC 1 EACH STRIP IN SCH ×2 (05:29→17:31)
[2018-11-16] MEDS: OMEPRAZOLE DR 20 MG GT SCH (05:29)
[2018-11-16 07:54] VITALS: BP 108/72
[2018-11-16] MEDS: POTASSIUM CHLORIDE 20 MEQ POWDER PACKET GT SCH (08:59)
[2018-11-16] MEDS: LEVETIRACETAM SOL (5 ML) 100 MG/ML UDC GT SCH ×2 (08:59→20:33)
[2018-11-16] MEDS: PROSTAT (PYXIS) 30 ML UDC GT SCH ×2 (08:59→16:47)
[2018-11-16] MEDS: DOCUSATE SODIUM LIQ 100 MG/10 ML UDC GT SCH ×2 (08:59→16:47)
[2018-11-16] MEDS: FERROUS SULFATE - FOR SA ONLY 330 MG/7.5 ML UDC GT SCH ×3 (08:59→16:47)
[2018-11-16] MEDS: BACLOFEN (10 MG) 10 MG TABLET GT SCH ×3 (08:59→16:47)
[2018-11-16] MEDS: ASCORBIC ACID 500 MG TABLET GT SCH ×2 (08:59→16:48)
[2018-11-16] MEDS: METFORMIN 850 MG TABLET GT SCH ×2 (08:59→16:47)
[2018-11-16] MEDS: Z GUARD REMEDY 4 OZ OINT TP SCH ×2 (09:00→20:34)
[2018-11-16] MEDS: FUNGI NAIL TP SCH ×2 (09:00→20:34)
[2018-11-16] MEDS: HYDROGEN PEROXIDE 480 ML BOTTLE TP SCH ×2 (09:00→20:34)
[2018-11-16] MEDS: HEPARIN SODIUM, PORCINE 5000 UNITS/1 ML VIAL SQ SCH ×2 (09:01→20:34)
[2018-11-16 19:53] VITALS: BP 123/74
[2018-11-16] MEDS: MULTIVIT W/MINERALS 1 TAB TABLET GT SCH (20:33)
[2018-11-16] MEDS: SENNOSIDES 8.6 MG TABLET GT SCH (22:01)
[2018-11-16] MEDS: INSULIN GLARGINE, 100 UNIT/ML CARTRIDGE SQ SCH (22:02)
[2018-11-17] MEDS: POLYVINYL ALCOHOL 15 ML BOTTLE EACHEYE SCH ×4 (00:27→17:08)
[2018-11-17] MEDS: IPRATROPIUM NEB FS 0.5 MG/2.5 ML AMPUL.NEB NEB SCH ×4 (01:25→20:25)
[2018-11-17] MEDS: ALBUTEROL FS 2.5 MG/3 ML VIAL.NEB NEB SCH ×4 (01:25→20:25)
[2018-11-17] MEDS: OMEPRAZOLE DR 20 MG GT SCH (05:55)
[2018-11-17] MEDS: BLOOD SUGAR DIAGNOSTIC 1 EACH STRIP IN SCH ×2 (05:55→17:29)
[2018-11-17] MEDS: INSULIN LISPRO/ASPART 100 UNIT/ML CARTRIDGE SQ PRN ×2 (05:55→17:29)
[2018-11-17] MEDS: GLUCERNA 1.2 1,000 ML BOTTLE GT PRN (05:55)
[2018-11-17 07:53] VITALS: BP 104/68
--- NOTE | 2018-11-17 08:02 | NUR ---
Received female trach pt unlabored on a mechanical vent. PT trach is secure. Vent is plugged into a red outlet, alarms are set and audible, and BMV is at bedside. Addendum: 11/17/18 at 0802 by SHABNAM GROSSMAN RT Amended: Links added.
[2018-11-17] MEDS: DOCUSATE SODIUM LIQ 100 MG/10 ML UDC GT SCH ×2 (09:41→17:07)
[2018-11-17] MEDS: POTASSIUM CHLORIDE 20 MEQ POWDER PACKET GT SCH (09:41)
[2018-11-17] MEDS: BACLOFEN (10 MG) 10 MG TABLET GT SCH ×3 (09:41→17:07)
[2018-11-17] MEDS: ASCORBIC ACID 500 MG TABLET GT SCH ×2 (09:41→17:08)
[2018-11-17] MEDS: PROSTAT (PYXIS) 30 ML UDC GT SCH ×2 (09:41→17:08)
[2018-11-17] MEDS: LEVETIRACETAM SOL (5 ML) 100 MG/ML UDC GT SCH ×2 (09:41→20:38)
[2018-11-17] MEDS: FERROUS SULFATE - FOR SA ONLY 330 MG/7.5 ML UDC GT SCH ×3 (09:41→17:07)
[2018-11-17] MEDS: METFORMIN 850 MG TABLET GT SCH ×2 (09:41→17:07)
[2018-11-17] MEDS: HYDROGEN PEROXIDE 480 ML BOTTLE TP SCH ×2 (09:42→20:38)
[2018-11-17] MEDS: Z GUARD REMEDY 4 OZ OINT TP SCH ×2 (09:42→20:39)
[2018-11-17] MEDS: HEPARIN SODIUM, PORCINE 5000 UNITS/1 ML VIAL SQ SCH ×2 (09:42→20:38)
[2018-11-17] MEDS: FUNGI NAIL TP SCH ×2 (09:42→20:38)
[2018-11-17 20:13] VITALS: BP 115/70
[2018-11-17] MEDS: MULTIVIT W/MINERALS 1 TAB TABLET GT SCH (20:38)
[2018-11-17] MEDS: SENNOSIDES 8.6 MG TABLET GT SCH (21:34)
[2018-11-17] MEDS: INSULIN GLARGINE, 100 UNIT/ML CARTRIDGE SQ SCH (21:35)
[2018-11-18] MEDS: POLYVINYL ALCOHOL 15 ML BOTTLE EACHEYE SCH ×5 (00:49→23:42)
[2018-11-18] MEDS: ALBUTEROL FS 2.5 MG/3 ML VIAL.NEB NEB SCH ×4 (02:16→20:07)
[2018-11-18] MEDS: IPRATROPIUM NEB FS 0.5 MG/2.5 ML AMPUL.NEB NEB SCH ×4 (02:16→20:07)
[2018-11-18] MEDS: OMEPRAZOLE DR 20 MG GT SCH (05:34)
[2018-11-18] MEDS: INSULIN LISPRO/ASPART 100 UNIT/ML CARTRIDGE SQ PRN ×2 (05:58→17:25)
[2018-11-18] MEDS: BLOOD SUGAR DIAGNOSTIC 1 EACH STRIP IN SCH ×2 (05:58→17:25)
[2018-11-18 07:54] VITALS: BP 126/68
[2018-11-18] MEDS: HEPARIN SODIUM, PORCINE 5000 UNITS/1 ML VIAL SQ SCH ×2 (09:44→21:10)
[2018-11-18] MEDS: FERROUS SULFATE - FOR SA ONLY 330 MG/7.5 ML UDC GT SCH ×3 (09:44→17:23)
[2018-11-18] MEDS: ASCORBIC ACID 500 MG TABLET GT SCH ×2 (09:44→17:23)
[2018-11-18] MEDS: POTASSIUM CHLORIDE 20 MEQ POWDER PACKET GT SCH (09:44)
[2018-11-18] MEDS: LEVETIRACETAM SOL (5 ML) 100 MG/ML UDC GT SCH ×2 (09:44→21:08)
[2018-11-18] MEDS: DOCUSATE SODIUM LIQ 100 MG/10 ML UDC GT SCH ×2 (09:44→17:23)
[2018-11-18] MEDS: METFORMIN 850 MG TABLET GT SCH ×2 (09:44→17:23)
[2018-11-18] MEDS: BACLOFEN (10 MG) 10 MG TABLET GT SCH ×3 (09:44→17:23)
[2018-11-18] MEDS: PROSTAT (PYXIS) 30 ML UDC GT SCH ×2 (09:44→17:23)
[2018-11-18] MEDS: ZINC OXIDE 30 GM TUBE TP SCH ×2 (09:45→21:10)
[2018-11-18] MEDS: Z GUARD REMEDY 4 OZ OINT TP SCH ×2 (09:45→21:10)
[2018-11-18] MEDS: HYDROGEN PEROXIDE 480 ML BOTTLE TP SCH ×2 (09:45→21:10)
[2018-11-18] MEDS: FUNGI NAIL TP SCH ×2 (09:45→21:10)
[2018-11-18] MEDS: GLUCERNA 1.2 1,000 ML BOTTLE GT PRN (19:24)
[2018-11-18 20:22] VITALS: BP 104/66
[2018-11-18] MEDS: MULTIVIT W/MINERALS 1 TAB TABLET GT SCH (21:08)
[2018-11-18] MEDS: SENNOSIDES 8.6 MG TABLET GT SCH (21:10)
[2018-11-18] MEDS: INSULIN GLARGINE, 100 UNIT/ML CARTRIDGE SQ SCH (21:33)
[2018-11-19] MEDS: ALBUTEROL FS 2.5 MG/3 ML VIAL.NEB NEB SCH ×4 (01:42→19:58)
[2018-11-19] MEDS: IPRATROPIUM NEB FS 0.5 MG/2.5 ML AMPUL.NEB NEB SCH ×4 (01:42→19:58)
[2018-11-19] MEDS: OMEPRAZOLE DR 20 MG GT SCH (05:32)
[2018-11-19] MEDS: BLOOD SUGAR DIAGNOSTIC 1 EACH STRIP IN SCH ×2 (05:32→17:31)
[2018-11-19] MEDS: POLYVINYL ALCOHOL 15 ML BOTTLE EACHEYE SCH ×4 (05:32→23:52)
[2018-11-19] MEDS: INSULIN LISPRO/ASPART 100 UNIT/ML CARTRIDGE SQ PRN ×2 (05:32→17:31)
[2018-11-19 07:50] VITALS: BP 94/65
[2018-11-19] MEDS: BACLOFEN (10 MG) 10 MG TABLET GT SCH ×3 (08:47→16:40)
[2018-11-19] MEDS: PROSTAT (PYXIS) 30 ML UDC GT SCH ×2 (08:47→16:40)
[2018-11-19] MEDS: FERROUS SULFATE - FOR SA ONLY 330 MG/7.5 ML UDC GT SCH ×3 (08:47→16:40)
[2018-11-19] MEDS: POTASSIUM CHLORIDE 20 MEQ POWDER PACKET GT SCH (08:47)
[2018-11-19] MEDS: METFORMIN 850 MG TABLET GT SCH ×2 (08:47→16:40)
[2018-11-19] MEDS: LEVETIRACETAM SOL (5 ML) 100 MG/ML UDC GT SCH ×2 (08:47→20:09)
[2018-11-19] MEDS: DOCUSATE SODIUM LIQ 100 MG/10 ML UDC GT SCH ×2 (08:47→16:40)
[2018-11-19] MEDS: ASCORBIC ACID 500 MG TABLET GT SCH ×2 (08:47→16:40)
[2018-11-19] MEDS: FUNGI NAIL TP SCH ×2 (08:48→20:10)
[2018-11-19] MEDS: HYDROGEN PEROXIDE 480 ML BOTTLE TP SCH ×2 (08:48→20:10)
[2018-11-19] MEDS: HEPARIN SODIUM, PORCINE 5000 UNITS/1 ML VIAL SQ SCH ×2 (08:48→20:10)
[2018-11-19] MEDS: ZINC OXIDE 30 GM TUBE TP SCH ×2 (08:48→20:10)
[2018-11-19] MEDS: Z GUARD REMEDY 4 OZ OINT TP SCH ×2 (08:48→20:10)
--- NOTE | 2018-11-19 09:00 | NUR ---
Seen and examined by Dr. Dsouza, no new order given.
[2018-11-19] MEDS: GLUCERNA 1.2 1,000 ML BOTTLE GT PRN (18:27)
[2018-11-19 19:50] VITALS: BP 127/81
[2018-11-19] MEDS: MULTIVIT W/MINERALS 1 TAB TABLET GT SCH (20:09)
[2018-11-19] MEDS: INSULIN GLARGINE, 100 UNIT/ML CARTRIDGE SQ SCH (22:00)
[2018-11-19] MEDS: SENNOSIDES 8.6 MG TABLET GT SCH (22:00)
[2018-11-20] MEDS: ALBUTEROL FS 2.5 MG/3 ML VIAL.NEB NEB SCH ×4 (01:34→20:10)
[2018-11-20] MEDS: IPRATROPIUM NEB FS 0.5 MG/2.5 ML AMPUL.NEB NEB SCH ×4 (01:34→20:10)
[2018-11-20] MEDS: BLOOD SUGAR DIAGNOSTIC 1 EACH STRIP IN SCH ×2 (05:08→17:04)
[2018-11-20] MEDS: OMEPRAZOLE DR 20 MG GT SCH (05:08)
[2018-11-20] MEDS: POLYVINYL ALCOHOL 15 ML BOTTLE EACHEYE SCH ×3 (05:08→17:02)
[2018-11-20] MEDS: INSULIN LISPRO/ASPART 100 UNIT/ML CARTRIDGE SQ PRN ×2 (05:09→17:05)
--- NOTE | 2018-11-20 05:52 | NUR ---
RT NOTED PT REC[facility]D [facility] MODE. NO RESP DISTRESS OR SOB NOTED. SX'D FOR MOD AMT OF PALE YELLOW SECRETIONS. ALARMS ARE SET AND AUDIBLE. VENT PLUGGED INTO RED OUTLET. AMBU BAG BEDSIDE. WILL CONTINUE TO MONITOR. Addendum: 11/20/18 at 0552 by PETER MARADIAGA RT Amended: Links added.
[2018-11-20 07:32] VITALS: BP 157/84
[2018-11-20] MEDS: METFORMIN 850 MG TABLET GT SCH ×2 (08:01→17:02)
[2018-11-20] MEDS: POTASSIUM CHLORIDE 20 MEQ POWDER PACKET GT SCH (08:01)
[2018-11-20] MEDS: HEPARIN SODIUM, PORCINE 5000 UNITS/1 ML VIAL SQ SCH ×2 (08:01→20:12)
[2018-11-20] MEDS: DOCUSATE SODIUM LIQ 100 MG/10 ML UDC GT SCH ×2 (08:01→17:02)
[2018-11-20] MEDS: ASCORBIC ACID 500 MG TABLET GT SCH ×2 (08:01→17:02)
[2018-11-20] MEDS: PROSTAT (PYXIS) 30 ML UDC GT SCH ×2 (08:01→17:02)
[2018-11-20] MEDS: FUNGI NAIL TP SCH ×2 (08:01→20:12)
[2018-11-20] MEDS: FERROUS SULFATE - FOR SA ONLY 330 MG/7.5 ML UDC GT SCH ×3 (08:01→17:02)
[2018-11-20] MEDS: HYDROGEN PEROXIDE 480 ML BOTTLE TP SCH ×2 (08:01→20:12)
[2018-11-20] MEDS: BACLOFEN (10 MG) 10 MG TABLET GT SCH ×3 (08:01→17:02)
[2018-11-20] MEDS: LEVETIRACETAM SOL (5 ML) 100 MG/ML UDC GT SCH ×2 (08:01→20:11)
[2018-11-20] MEDS: ZINC OXIDE 30 GM TUBE TP SCH ×2 (08:02→20:12)
[2018-11-20] MEDS: Z GUARD REMEDY 4 OZ OINT TP SCH ×2 (08:02→20:12)
--- NOTE | 2018-11-20 17:58 | NUR ---
RT END OF THE SHIFT REPORT, PT. 58 Y OLD FEMALE REC. 0700 AM AWAKE BUT NOT RESPONSIVE. PT. IS TRACH'D SHILEY # 6 ON MECHANICAL VENT. WITH NOTED AC MODE. NO RESP DISTRESS NOR SOB NOTED. EQUAL CHEST RISE NOTED, B/S RHONCHI BILATERALLY SX'D FOR MOD. YELLOW SECRETIONS. TX'S GIVEN INLINE AND NO ADVERSE REACTION NOTED. ALARMS ARE SET AND FUNCTIONAL. VENT PLUGGED INTO RED OUTLET. HME CHANGED SNACK STEWARD DONE. AMBU BAG REMAIN AT THE BEDSIDE. WILL CONTINUE TO MONITOR CLOSELY AND REPORT WILL PASS TO PM SHIFT. Addendum: 11/20/18 at 1800 by SANJAY ALTMAN RT Amended: Links added.
[2018-11-20 19:52] VITALS: BP 107/77
[2018-11-20] MEDS: MULTIVIT W/MINERALS 1 TAB TABLET GT SCH (20:11)
[2018-11-20] MEDS: SENNOSIDES 8.6 MG TABLET GT SCH (21:03)
[2018-11-20] MEDS: INSULIN GLARGINE, 100 UNIT/ML CARTRIDGE SQ SCH (21:06)
[2018-11-21] MEDS: POLYVINYL ALCOHOL 15 ML BOTTLE EACHEYE SCH ×4 (00:52→17:23)
[2018-11-21] MEDS: GLUCERNA 1.2 1,000 ML BOTTLE GT PRN (01:00)
[2018-11-21] MEDS: ALBUTEROL FS 2.5 MG/3 ML VIAL.NEB NEB SCH ×4 (01:14→19:51)
[2018-11-21] MEDS: IPRATROPIUM NEB FS 0.5 MG/2.5 ML AMPUL.NEB NEB SCH ×4 (01:14→19:51)
[2018-11-21] MEDS: BLOOD SUGAR DIAGNOSTIC 1 EACH STRIP IN SCH ×2 (05:15→17:23)
[2018-11-21] MEDS: OMEPRAZOLE DR 20 MG GT SCH (05:15)
[2018-11-21] MEDS: INSULIN LISPRO/ASPART 100 UNIT/ML CARTRIDGE SQ PRN (05:15)
[2018-11-21 08:02] VITALS: BP 100/68
[2018-11-21] MEDS: METFORMIN 850 MG TABLET GT SCH ×2 (08:41→16:38)
[2018-11-21] MEDS: DOCUSATE SODIUM LIQ 100 MG/10 ML UDC GT SCH ×2 (08:41→16:38)
[2018-11-21] MEDS: POTASSIUM CHLORIDE 20 MEQ POWDER PACKET GT SCH (08:41)
[2018-11-21] MEDS: PROSTAT (PYXIS) 30 ML UDC GT SCH ×2 (08:41→16:38)
[2018-11-21] MEDS: LEVETIRACETAM SOL (5 ML) 100 MG/ML UDC GT SCH ×2 (08:41→20:36)
[2018-11-21] MEDS: BACLOFEN (10 MG) 10 MG TABLET GT SCH ×3 (08:41→16:38)
[2018-11-21] MEDS: FERROUS SULFATE - FOR SA ONLY 330 MG/7.5 ML UDC GT SCH ×3 (08:41→16:38)
[2018-11-21] MEDS: ASCORBIC ACID 500 MG TABLET GT SCH ×2 (08:41→16:38)
[2018-11-21] MEDS: HEPARIN SODIUM, PORCINE 5000 UNITS/1 ML VIAL SQ SCH ×2 (08:42→20:37)
[2018-11-21] MEDS: FUNGI NAIL TP SCH ×2 (08:42→20:38)
[2018-11-21] MEDS: HYDROGEN PEROXIDE 480 ML BOTTLE TP SCH ×2 (08:42→20:38)
[2018-11-21] MEDS: ZINC OXIDE 30 GM TUBE TP SCH ×2 (08:42→20:38)
[2018-11-21] MEDS: Z GUARD REMEDY 4 OZ OINT TP SCH ×2 (08:42→20:38)
--- NOTE | 2018-11-21 09:40 | NUR ---
Seen and examined by Dr. Alvarez, NNO given.
[2018-11-21 20:36] VITALS: BP 116/71
[2018-11-21] MEDS: MULTIVIT W/MINERALS 1 TAB TABLET GT SCH (20:36)
[2018-11-21] MEDS: SENNOSIDES 8.6 MG TABLET GT SCH (21:29)
[2018-11-21] MEDS: INSULIN GLARGINE, 100 UNIT/ML CARTRIDGE SQ SCH (21:30)
[2018-11-22] MEDS: POLYVINYL ALCOHOL 15 ML BOTTLE EACHEYE SCH ×4 (00:41→18:02)
[2018-11-22] MEDS: IPRATROPIUM NEB FS 0.5 MG/2.5 ML AMPUL.NEB NEB SCH ×4 (01:37→19:29)
[2018-11-22] MEDS: ALBUTEROL FS 2.5 MG/3 ML VIAL.NEB NEB SCH ×4 (01:37→19:29)
[2018-11-22] MEDS: OMEPRAZOLE DR 20 MG GT SCH (05:01)
[2018-11-22] MEDS: BLOOD SUGAR DIAGNOSTIC 1 EACH STRIP IN SCH ×2 (05:01→18:02)
[2018-11-22] MEDS: GLUCERNA 1.2 1,000 ML BOTTLE GT PRN (05:02)
[2018-11-22] MEDS: INSULIN LISPRO/ASPART 100 UNIT/ML CARTRIDGE SQ PRN ×2 (05:02→18:05)
--- NOTE | 2018-11-22 07:45 | NUR ---
RT PATIENT REC'D TRACHED ON [facility] VENT WITH ORDERED SETTING TUTU WELL. VENT ALARMS CHECKED + AUDIBLE. TRACH SECURE AND IN PROPER POSITION. CUFF CHECKED RIPENING ROOM OPERATOR. PATIENT SUCTIONED WITH MOD AMT PALE SEMITHICK SECRETIONS. AMBU BAG AT HOB Addendum: 11/22/18 at 0913 by MERISSA BHATT RT Amended: Links added.
[2018-11-22 07:54] VITALS: BP_SYST 100; BP_SYST 130; BP_DIAS 86; BP_DIAS 89
[2018-11-22] MEDS: FERROUS SULFATE - FOR SA ONLY 330 MG/7.5 ML UDC GT SCH ×3 (08:13→16:21)
[2018-11-22] MEDS: POTASSIUM CHLORIDE 20 MEQ POWDER PACKET GT SCH (08:13)
[2018-11-22] MEDS: DOCUSATE SODIUM LIQ 100 MG/10 ML UDC GT SCH ×2 (08:13→16:21)
[2018-11-22] MEDS: LEVETIRACETAM SOL (5 ML) 100 MG/ML UDC GT SCH ×2 (08:13→21:22)
[2018-11-22] MEDS: METFORMIN 850 MG TABLET GT SCH ×2 (08:13→16:21)
[2018-11-22] MEDS: BACLOFEN (10 MG) 10 MG TABLET GT SCH ×3 (08:13→16:21)
[2018-11-22] MEDS: PROSTAT (PYXIS) 30 ML UDC GT SCH ×2 (08:14→16:21)
[2018-11-22] MEDS: ASCORBIC ACID 500 MG TABLET GT SCH ×2 (08:14→16:21)
[2018-11-22] MEDS: HEPARIN SODIUM, PORCINE 5000 UNITS/1 ML VIAL SQ SCH ×2 (08:17→21:23)
[2018-11-22] MEDS: ZINC OXIDE 30 GM TUBE TP SCH ×2 (09:00→21:23)
[2018-11-22] MEDS: Z GUARD REMEDY 4 OZ OINT TP SCH ×2 (09:00→21:23)
[2018-11-22] MEDS: HYDROGEN PEROXIDE 480 ML BOTTLE TP SCH ×2 (09:00→21:23)
[2018-11-22] MEDS: FUNGI NAIL TP SCH ×2 (09:00→21:23)
[2018-11-22 20:09] VITALS: BP 98/69
[2018-11-22] MEDS: MULTIVIT W/MINERALS 1 TAB TABLET GT SCH (21:22)
[2018-11-22] MEDS: SENNOSIDES 8.6 MG TABLET GT SCH (21:24)
[2018-11-22] MEDS: INSULIN GLARGINE, 100 UNIT/ML CARTRIDGE SQ SCH (21:40)
[2018-11-23] MEDS: POLYVINYL ALCOHOL 15 ML BOTTLE EACHEYE SCH ×4 (00:29→17:30)
[2018-11-23] MEDS: ALBUTEROL FS 2.5 MG/3 ML VIAL.NEB NEB SCH ×4 (01:31→20:17)
[2018-11-23] MEDS: IPRATROPIUM NEB FS 0.5 MG/2.5 ML AMPUL.NEB NEB SCH ×4 (01:31→20:17)
[2018-11-23] MEDS: BLOOD SUGAR DIAGNOSTIC 1 EACH STRIP IN SCH ×2 (05:40→17:30)
[2018-11-23] MEDS: OMEPRAZOLE DR 20 MG GT SCH (05:40)
[2018-11-23] MEDS: GLUCERNA 1.2 1,000 ML BOTTLE GT PRN (05:41)
[2018-11-23] MEDS: INSULIN LISPRO/ASPART 100 UNIT/ML CARTRIDGE SQ PRN (05:42)
[2018-11-23 07:59] VITALS: BP 104/69
[2018-11-23] MEDS: HEPARIN SODIUM, PORCINE 5000 UNITS/1 ML VIAL SQ SCH ×2 (09:00→21:17)
[2018-11-23] MEDS: ASCORBIC ACID 500 MG TABLET GT SCH ×2 (09:00→17:30)
[2018-11-23] MEDS: BACLOFEN (10 MG) 10 MG TABLET GT SCH ×3 (09:00→17:30)
[2018-11-23] MEDS: LEVETIRACETAM SOL (5 ML) 100 MG/ML UDC GT SCH ×2 (09:00→21:16)
[2018-11-23] MEDS: DOCUSATE SODIUM LIQ 100 MG/10 ML UDC GT SCH ×2 (09:00→17:30)
[2018-11-23] MEDS: HYDROGEN PEROXIDE 480 ML BOTTLE TP SCH ×2 (09:00→21:17)
[2018-11-23] MEDS: Z GUARD REMEDY 4 OZ OINT TP SCH ×2 (09:00→21:17)
[2018-11-23] MEDS: FERROUS SULFATE - FOR SA ONLY 330 MG/7.5 ML UDC GT SCH ×3 (09:00→17:30)
[2018-11-23] MEDS: METFORMIN 850 MG TABLET GT SCH ×2 (09:00→17:30)
[2018-11-23] MEDS: PROSTAT (PYXIS) 30 ML UDC GT SCH ×2 (09:00→17:30)
[2018-11-23] MEDS: ZINC OXIDE 30 GM TUBE TP SCH ×2 (09:00→21:17)
[2018-11-23] MEDS: FUNGI NAIL TP SCH ×2 (09:00→21:17)
[2018-11-23] MEDS: POTASSIUM CHLORIDE 20 MEQ POWDER PACKET GT SCH (09:00)
[2018-11-23 19:57] VITALS: BP 95/61
--- NOTE | 2018-11-23 20:18 | NUR ---
RT NOTE PATIENT RECEIVED TRACH'D IN STABLE CONDITION ON MECHANICAL VENT. PATIENT IS TOLERATING CURRENT ORDERED VENT SETTINGS. PATIENT TRACH IS PATENT AND SECURE. ALARMS ARE SET AND AUDIBLE. MECHANICAL VENT IS PLUGGED INTO RED OUTLET. EMERGENCY EQUIPMENT IS PLACED AT BEDSIDE. Addendum: 11/23/18 at 2147 by EVERARDO SMITH RT Amended: Links added.
[2018-11-23] MEDS: MULTIVIT W/MINERALS 1 TAB TABLET GT SCH (21:16)
[2018-11-23] MEDS: SENNOSIDES 8.6 MG TABLET GT SCH (21:17)
[2018-11-23] MEDS: INSULIN GLARGINE, 100 UNIT/ML CARTRIDGE SQ SCH (21:18)
[2018-11-24] MEDS: POLYVINYL ALCOHOL 15 ML BOTTLE EACHEYE SCH ×4 (00:05→17:09)
[2018-11-24] MEDS: ALBUTEROL FS 2.5 MG/3 ML VIAL.NEB NEB SCH ×4 (01:57→19:36)
[2018-11-24] MEDS: IPRATROPIUM NEB FS 0.5 MG/2.5 ML AMPUL.NEB NEB SCH ×4 (01:57→19:36)
[2018-11-24] MEDS: OMEPRAZOLE DR 20 MG GT SCH (05:14)
[2018-11-24] MEDS: BLOOD SUGAR DIAGNOSTIC 1 EACH STRIP IN SCH ×2 (05:41→18:20)
[2018-11-24] MEDS: GLUCERNA 1.2 1,000 ML BOTTLE GT PRN (05:41)
[2018-11-24] MEDS: INSULIN LISPRO/ASPART 100 UNIT/ML CARTRIDGE SQ PRN (05:41)
[2018-11-24 07:22] VITALS: BP 111/71
[2018-11-24] MEDS: DOCUSATE SODIUM LIQ 100 MG/10 ML UDC GT SCH ×2 (09:01→17:09)
[2018-11-24] MEDS: HEPARIN SODIUM, PORCINE 5000 UNITS/1 ML VIAL SQ SCH ×2 (09:01→20:52)
[2018-11-24] MEDS: METFORMIN 850 MG TABLET GT SCH ×2 (09:01→17:09)
[2018-11-24] MEDS: FERROUS SULFATE - FOR SA ONLY 330 MG/7.5 ML UDC GT SCH ×3 (09:01→17:09)
[2018-11-24] MEDS: ASCORBIC ACID 500 MG TABLET GT SCH ×2 (09:02→17:09)
[2018-11-24] MEDS: FUNGI NAIL TP SCH ×2 (09:02→20:52)
[2018-11-24] MEDS: BACLOFEN (10 MG) 10 MG TABLET GT SCH ×3 (09:02→17:09)
[2018-11-24] MEDS: POTASSIUM CHLORIDE 20 MEQ POWDER PACKET GT SCH (09:02)
[2018-11-24] MEDS: HYDROGEN PEROXIDE 480 ML BOTTLE TP SCH ×2 (09:02→20:52)
[2018-11-24] MEDS: PROSTAT (PYXIS) 30 ML UDC GT SCH ×2 (09:02→17:09)
[2018-11-24] MEDS: ZINC OXIDE 30 GM TUBE TP SCH ×2 (09:02→20:52)
[2018-11-24] MEDS: LEVETIRACETAM SOL (5 ML) 100 MG/ML UDC GT SCH ×2 (09:02→20:51)
[2018-11-24] MEDS: Z GUARD REMEDY 4 OZ OINT TP SCH ×2 (09:02→20:52)
--- NOTE | 2018-11-24 17:05 | NUR ---
RT NOTES TRACH TUBE IN PLACE, PATENT AND SECURED WITH TRACH TIE. VENT PLUGGED ON RED OUTLET. ALARMS SET AND AUDIBLE. BACK UP TRACH AND AMBU BAG BY THE BED SIDE. PATIENT TOLERATE CURRENT SETTINGS WITH NO SIGNS OF ANY DISTRESS Addendum: 11/24/18 at 1705 by ADOLFO LU RT Amended: Links added.
[2018-11-24 20:08] VITALS: BP 94/58
[2018-11-24] MEDS: MULTIVIT W/MINERALS 1 TAB TABLET GT SCH (20:51)
[2018-11-24] MEDS: SENNOSIDES 8.6 MG TABLET GT SCH (22:02)
[2018-11-24] MEDS: INSULIN GLARGINE, 100 UNIT/ML CARTRIDGE SQ SCH (22:03)
[2018-11-25] MEDS: POLYVINYL ALCOHOL 15 ML BOTTLE EACHEYE SCH ×4 (00:31→17:49)
[2018-11-25] MEDS: IPRATROPIUM NEB FS 0.5 MG/2.5 ML AMPUL.NEB NEB SCH ×4 (02:18→19:27)
[2018-11-25] MEDS: ALBUTEROL FS 2.5 MG/3 ML VIAL.NEB NEB SCH ×4 (02:18→19:27)
[2018-11-25] MEDS: OMEPRAZOLE DR 20 MG GT SCH (05:45)
[2018-11-25] MEDS: GLUCERNA 1.2 1,000 ML BOTTLE GT PRN (05:46)
[2018-11-25] MEDS: INSULIN LISPRO/ASPART 100 UNIT/ML CARTRIDGE SQ PRN (06:04)
[2018-11-25] MEDS: BLOOD SUGAR DIAGNOSTIC 1 EACH STRIP IN SCH ×2 (06:04→17:49)
[2018-11-25 07:47] VITALS: BP 95/66
[2018-11-25] MEDS: PROSTAT (PYXIS) 30 ML UDC GT SCH ×2 (09:00→17:49)
[2018-11-25] MEDS: DOCUSATE SODIUM LIQ 100 MG/10 ML UDC GT SCH ×2 (09:00→17:49)
[2018-11-25] MEDS: METFORMIN 850 MG TABLET GT SCH ×2 (09:00→17:49)
[2018-11-25] MEDS: BACLOFEN (10 MG) 10 MG TABLET GT SCH ×3 (09:00→17:49)
[2018-11-25] MEDS: HYDROGEN PEROXIDE 480 ML BOTTLE TP SCH ×2 (09:00→21:25)
[2018-11-25] MEDS: HEPARIN SODIUM, PORCINE 5000 UNITS/1 ML VIAL SQ SCH ×2 (09:00→21:25)
[2018-11-25] MEDS: LEVETIRACETAM SOL (5 ML) 100 MG/ML UDC GT SCH ×2 (09:00→21:25)
[2018-11-25] MEDS: FUNGI NAIL TP SCH ×2 (09:00→21:25)
[2018-11-25] MEDS: POTASSIUM CHLORIDE 20 MEQ POWDER PACKET GT SCH (09:00)
[2018-11-25] MEDS: ZINC OXIDE 30 GM TUBE TP SCH ×2 (09:00→21:25)
[2018-11-25] MEDS: Z GUARD REMEDY 4 OZ OINT TP SCH ×2 (09:00→21:25)
[2018-11-25] MEDS: ASCORBIC ACID 500 MG TABLET GT SCH ×2 (09:00→17:49)
[2018-11-25] MEDS: FERROUS SULFATE - FOR SA ONLY 330 MG/7.5 ML UDC GT SCH ×3 (09:00→17:49)
[2018-11-25 20:19] VITALS: BP 109/70
[2018-11-25] MEDS: MULTIVIT W/MINERALS 1 TAB TABLET GT SCH (21:25)
[2018-11-25] MEDS: SENNOSIDES 8.6 MG TABLET GT SCH (21:26)
[2018-11-25] MEDS: INSULIN GLARGINE, 100 UNIT/ML CARTRIDGE SQ SCH (21:33)
[2018-11-26] MEDS: POLYVINYL ALCOHOL 15 ML BOTTLE EACHEYE SCH ×4 (00:29→18:41)
[2018-11-26] MEDS: ALBUTEROL FS 2.5 MG/3 ML VIAL.NEB NEB SCH ×4 (01:24→20:25)
[2018-11-26] MEDS: IPRATROPIUM NEB FS 0.5 MG/2.5 ML AMPUL.NEB NEB SCH ×4 (01:24→20:25)
[2018-11-26] MEDS: GLUCERNA 1.2 1,000 ML BOTTLE GT PRN (02:25)
[2018-11-26] MEDS: BLOOD SUGAR DIAGNOSTIC 1 EACH STRIP IN SCH ×2 (05:52→18:41)
[2018-11-26] MEDS: OMEPRAZOLE DR 20 MG GT SCH (05:52)
--- NOTE | 2018-11-26 07:32 | NUR ---
RT PATIENT REC'D TRACHED ON [facility] VENT WITH ORDERED SETTING TUTU WELL. VENT ALARMS CHECKED + AUDIBLE. TRACH SECURE AND IN PROPER POSITION. CUFF CHECKED DEPARTMENT ADMINISTRATOR. PATIENT SUCTIONED WITH MOD AMT PALE SEMITHICK SECRETIONS. AMBU BAG AT HOB Addendum: 11/26/18 at 1556 by MERISSA BHATT RT Amended: Links added.
[2018-11-26 08:11] VITALS: BP 101/60
[2018-11-26] MEDS: LEVETIRACETAM SOL (5 ML) 100 MG/ML UDC GT SCH ×2 (09:26→21:06)
[2018-11-26] MEDS: METFORMIN 850 MG TABLET GT SCH ×2 (09:26→16:58)
[2018-11-26] MEDS: DOCUSATE SODIUM LIQ 100 MG/10 ML UDC GT SCH ×2 (09:26→16:58)
[2018-11-26] MEDS: POTASSIUM CHLORIDE 20 MEQ POWDER PACKET GT SCH (09:26)
[2018-11-26] MEDS: FERROUS SULFATE - FOR SA ONLY 330 MG/7.5 ML UDC GT SCH ×3 (09:26→16:58)
[2018-11-26] MEDS: ASCORBIC ACID 500 MG TABLET GT SCH ×2 (09:26→16:58)
[2018-11-26] MEDS: PROSTAT (PYXIS) 30 ML UDC GT SCH ×2 (09:26→16:58)
[2018-11-26] MEDS: BACLOFEN (10 MG) 10 MG TABLET GT SCH ×3 (09:26→16:58)
[2018-11-26] MEDS: HEPARIN SODIUM, PORCINE 5000 UNITS/1 ML VIAL SQ SCH ×2 (09:27→21:06)
[2018-11-26] MEDS: HYDROGEN PEROXIDE 480 ML BOTTLE TP SCH ×2 (09:27→21:06)
[2018-11-26] MEDS: FUNGI NAIL TP SCH ×2 (09:27→21:06)
[2018-11-26] MEDS: ZINC OXIDE 30 GM TUBE TP SCH ×2 (09:28→21:07)
[2018-11-26] MEDS: Z GUARD REMEDY 4 OZ OINT TP SCH ×2 (09:28→21:06)
--- NOTE | 2018-11-26 15:00 | NUR ---
Patient had episode of resp. distress this afternoon, suctioned, noted a lot of thick pale yellow secretions, HOB elevated to ease breathing. RT changed HME, RT assessed patient. After suctioned and repositioned patient calm, not in resp. distress. Patient had large loose BM, provided good qing care, kept dry and clean at all times. Patient closely monitored.
[2018-11-26] MEDS: INSULIN LISPRO/ASPART 100 UNIT/ML CARTRIDGE SQ PRN (18:42)
[2018-11-26 19:31] VITALS: BP 112/75
[2018-11-26] MEDS: MULTIVIT W/MINERALS 1 TAB TABLET GT SCH (21:06)
[2018-11-26] MEDS: INSULIN GLARGINE, 100 UNIT/ML CARTRIDGE SQ SCH (21:07)
[2018-11-26] MEDS: SENNOSIDES 8.6 MG TABLET GT SCH (21:07)
[2018-11-27] MEDS: ALBUTEROL FS 2.5 MG/3 ML VIAL.NEB NEB SCH ×4 (01:51→19:28)
[2018-11-27] MEDS: IPRATROPIUM NEB FS 0.5 MG/2.5 ML AMPUL.NEB NEB SCH ×4 (01:51→19:28)
--- NOTE | 2018-11-27 05:42 | NUR ---
pt rec'd trached on [facility] vent on ac mode. no resp distress or sob noted. trach patent and secured. sx'd for mod amt of pale yellow secretions. alarms are set and audible. vent plugged into red outlet. ambu bag bedside. will cotinue to monitor Addendum: 11/27/18 at 0542 by PETER MARADIAGA RT Amended: Links added.
[2018-11-27] MEDS: OMEPRAZOLE DR 20 MG GT SCH (06:05)
[2018-11-27] MEDS: BLOOD SUGAR DIAGNOSTIC 1 EACH STRIP IN SCH ×2 (06:05→18:43)
[2018-11-27] MEDS: POLYVINYL ALCOHOL 15 ML BOTTLE EACHEYE SCH ×5 (06:05→23:23)
[2018-11-27 07:44] VITALS: BP 100/63
[2018-11-27] MEDS: FUNGI NAIL TP SCH ×2 (09:00→21:03)
[2018-11-27] MEDS: HYDROGEN PEROXIDE 480 ML BOTTLE TP SCH ×2 (09:00→21:03)
[2018-11-27] MEDS: BACLOFEN (10 MG) 10 MG TABLET GT SCH ×3 (09:00→17:40)
[2018-11-27] MEDS: HEPARIN SODIUM, PORCINE 5000 UNITS/1 ML VIAL SQ SCH ×2 (09:00→21:03)
[2018-11-27] MEDS: FERROUS SULFATE - FOR SA ONLY 330 MG/7.5 ML UDC GT SCH ×3 (09:00→17:40)
[2018-11-27] MEDS: POTASSIUM CHLORIDE 20 MEQ POWDER PACKET GT SCH (09:00)
[2018-11-27] MEDS: METFORMIN 850 MG TABLET GT SCH ×2 (09:00→17:40)
[2018-11-27] MEDS: LEVETIRACETAM SOL (5 ML) 100 MG/ML UDC GT SCH ×2 (09:00→21:02)
[2018-11-27] MEDS: PROSTAT (PYXIS) 30 ML UDC GT SCH ×2 (09:00→17:40)
[2018-11-27] MEDS: ASCORBIC ACID 500 MG TABLET GT SCH ×2 (09:00→17:40)
[2018-11-27] MEDS: Z GUARD REMEDY 4 OZ OINT TP SCH ×2 (09:00→21:03)
[2018-11-27] MEDS: ZINC OXIDE 30 GM TUBE TP SCH ×2 (09:00→21:03)
[2018-11-27] MEDS: DOCUSATE SODIUM LIQ 100 MG/10 ML UDC GT SCH ×2 (09:00→17:40)
[2018-11-27] MEDS: INSULIN LISPRO/ASPART 100 UNIT/ML CARTRIDGE SQ PRN (18:43)
[2018-11-27 19:56] VITALS: BP 112/73
[2018-11-27] MEDS: MULTIVIT W/MINERALS 1 TAB TABLET GT SCH (21:02)
[2018-11-27] MEDS: SENNOSIDES 8.6 MG TABLET GT SCH (21:03)
[2018-11-27] MEDS: INSULIN GLARGINE, 100 UNIT/ML CARTRIDGE SQ SCH (21:04)
[2018-11-28] MEDS: IPRATROPIUM NEB FS 0.5 MG/2.5 ML AMPUL.NEB NEB SCH ×4 (02:08→21:09)
[2018-11-28] MEDS: ALBUTEROL FS 2.5 MG/3 ML VIAL.NEB NEB SCH ×4 (02:08→21:09)
[2018-11-28] MEDS: OMEPRAZOLE DR 20 MG GT SCH (05:37)
[2018-11-28] MEDS: POLYVINYL ALCOHOL 15 ML BOTTLE EACHEYE SCH ×3 (05:37→18:23)
[2018-11-28] MEDS: BLOOD SUGAR DIAGNOSTIC 1 EACH STRIP IN SCH ×2 (05:58→18:23)
[2018-11-28 07:30] VITALS: BP 103/65
[2018-11-28] MEDS: HYDROGEN PEROXIDE 480 ML BOTTLE TP SCH ×2 (09:00→20:01)
[2018-11-28] MEDS: BACLOFEN (10 MG) 10 MG TABLET GT SCH ×3 (09:00→17:00)
[2018-11-28] MEDS: LEVETIRACETAM SOL (5 ML) 100 MG/ML UDC GT SCH ×2 (09:00→20:01)
[2018-11-28] MEDS: ZINC OXIDE 30 GM TUBE TP SCH ×2 (09:00→20:01)
[2018-11-28] MEDS: PROSTAT (PYXIS) 30 ML UDC GT SCH ×2 (09:00→17:00)
[2018-11-28] MEDS: FUNGI NAIL TP SCH ×2 (09:00→20:01)
[2018-11-28] MEDS: DOCUSATE SODIUM LIQ 100 MG/10 ML UDC GT SCH ×2 (09:00→17:00)
[2018-11-28] MEDS: POTASSIUM CHLORIDE 20 MEQ POWDER PACKET GT SCH (09:00)
[2018-11-28] MEDS: ASCORBIC ACID 500 MG TABLET GT SCH ×2 (09:00→17:00)
[2018-11-28] MEDS: HEPARIN SODIUM, PORCINE 5000 UNITS/1 ML VIAL SQ SCH ×2 (09:00→20:00)
[2018-11-28] MEDS: FERROUS SULFATE - FOR SA ONLY 330 MG/7.5 ML UDC GT SCH ×3 (09:00→17:00)
[2018-11-28] MEDS: Z GUARD REMEDY 4 OZ OINT TP SCH ×2 (09:00→20:01)
[2018-11-28] MEDS: METFORMIN 850 MG TABLET GT SCH ×2 (09:00→17:00)
--- NOTE | 2018-11-28 09:20 | NUR ---
Seen and examined by Dr. Alvarez, NNO given.
[2018-11-28] MEDS: INSULIN LISPRO/ASPART 100 UNIT/ML CARTRIDGE SQ PRN (18:24)
--- NOTE | 2018-11-28 19:00 | NUR ---
Seen and examined by Dr. Dsouza, NNO given.
[2018-11-28 20:00] VITALS: BP 108/68
[2018-11-28] MEDS: MULTIVIT W/MINERALS 1 TAB TABLET GT SCH (20:01)
[2018-11-28] MEDS: SENNOSIDES 8.6 MG TABLET GT SCH (21:51)
[2018-11-28] MEDS: INSULIN GLARGINE, 100 UNIT/ML CARTRIDGE SQ SCH (22:05)
[2018-11-28 23:21] VITALS: BP 108/68
[2018-11-29] MEDS: POLYVINYL ALCOHOL 15 ML BOTTLE EACHEYE SCH ×5 (00:07→23:57)
--- NOTE | 2018-11-29 00:23 | NUR ---
PT REC'D TRACHED ON [facility] VENT ON AC MODE. NO RESP DISTRESS OR SOB NOTED. SX'D FOR MOD AMT OF PALE YELLOW SECRETIONS. TRACH PATENT AND SECURED. ALARMS ARE SET AND AUDIBLE. VENT PLUGGED INTO RED OUTLET. AMBU BAG BEDSIDE. WILL CONTINUE TO MONITOR. Addendum: 11/29/18 at 0023 by PETER MARADIAGA RT Amended: Links added.
[2018-11-29] MEDS: ALBUTEROL FS 2.5 MG/3 ML VIAL.NEB NEB SCH ×4 (01:17→20:07)
[2018-11-29] MEDS: IPRATROPIUM NEB FS 0.5 MG/2.5 ML AMPUL.NEB NEB SCH ×4 (01:17→20:07)
[2018-11-29] MEDS: GLUCERNA 1.2 1,000 ML BOTTLE GT PRN ×2 (02:41→23:00)
[2018-11-29] MEDS: OMEPRAZOLE DR 20 MG GT SCH (05:09)
[2018-11-29] MEDS: BLOOD SUGAR DIAGNOSTIC 1 EACH STRIP IN SCH ×2 (05:24→18:37)
[2018-11-29 08:00] VITALS: BP 107/66
[2018-11-29 08:25] VITALS: BP 115/72
[2018-11-29] MEDS: ZINC OXIDE 30 GM TUBE TP SCH ×2 (09:00→21:08)
[2018-11-29] MEDS: ASCORBIC ACID 500 MG TABLET GT SCH ×2 (09:00→17:00)
[2018-11-29] MEDS: HEPARIN SODIUM, PORCINE 5000 UNITS/1 ML VIAL SQ SCH ×2 (09:00→21:08)
[2018-11-29] MEDS: METFORMIN 850 MG TABLET GT SCH ×2 (09:00→17:00)
[2018-11-29] MEDS: PROSTAT (PYXIS) 30 ML UDC GT SCH ×2 (09:00→17:00)
[2018-11-29] MEDS: POTASSIUM CHLORIDE 20 MEQ POWDER PACKET GT SCH (09:00)
[2018-11-29] MEDS: FUNGI NAIL TP SCH ×2 (09:00→21:08)
[2018-11-29] MEDS: DOCUSATE SODIUM LIQ 100 MG/10 ML UDC GT SCH ×2 (09:00→17:00)
[2018-11-29] MEDS: HYDROGEN PEROXIDE 480 ML BOTTLE TP SCH ×2 (09:00→21:08)
[2018-11-29] MEDS: LEVETIRACETAM SOL (5 ML) 100 MG/ML UDC GT SCH ×2 (09:00→21:07)
[2018-11-29] MEDS: FERROUS SULFATE - FOR SA ONLY 330 MG/7.5 ML UDC GT SCH ×3 (09:00→17:00)
[2018-11-29] MEDS: BACLOFEN (10 MG) 10 MG TABLET GT SCH ×3 (09:00→17:00)
[2018-11-29] MEDS: Z GUARD REMEDY 4 OZ OINT TP SCH ×2 (09:00→21:08)
--- NOTE | 2018-11-29 09:02 | NUR ---
RT NOTE PATIENT REC'D TRACHED ON [facility] VENT WITH ORDERED SETTING TUTU WELL. VENT ALARMS CHECKED + AUDIBLE. TRACH SECURE AND IN PROPER POSITION. CUFF CHECKED BALANCER SCALE. PATIENT SUCTIONED WITH MOD AMT PALE SEMITHICK SECRETIONS. AMBU BAG AT [facility] WILL CONTINUE TO MONITOR. Addendum: 11/29/18 at 0903 by ARIS CRUZ RT Amended: Links added.
[2018-11-29] MEDS: INSULIN LISPRO/ASPART 100 UNIT/ML CARTRIDGE SQ PRN (18:42)
[2018-11-29 20:06] VITALS: BP 121/68
--- NOTE | 2018-11-29 20:08 | NUR ---
RT NOTE: RECEIVED TRACH PT ON [facility] VENT ON NOTED SETTINGS PER MD ORDERS. TRACH IS PATENT AND SECURED. LICENSING SPECIALIST DONE. Q6 BREATHING TX GIVEN WITH NO ADVERSE REACTION NOTED. SX DONE PRN. VENT PLUGGED INTO RED OUTLET. ALARMS ON AND AUDIBLE. ERIC BAG @ BEDSIDE. NO RESP DISTRESS AT THIS TIME. WILL CONT TO MONITOR PT. Addendum: 11/30/18 at 0433 by SHE BYRNE RT Amended: Links added.
[2018-11-29] MEDS: MULTIVIT W/MINERALS 1 TAB TABLET GT SCH (21:07)
[2018-11-29] MEDS: SENNOSIDES 8.6 MG TABLET GT SCH (21:08)
[2018-11-29] MEDS: INSULIN GLARGINE, 100 UNIT/ML CARTRIDGE SQ SCH (21:23)
[2018-11-30] MEDS: ALBUTEROL FS 2.5 MG/3 ML VIAL.NEB NEB SCH ×4 (01:45→20:00)
[2018-11-30] MEDS: IPRATROPIUM NEB FS 0.5 MG/2.5 ML AMPUL.NEB NEB SCH ×4 (01:45→20:00)
[2018-11-30] MEDS: OMEPRAZOLE DR 20 MG GT SCH (05:30)
[2018-11-30] MEDS: POLYVINYL ALCOHOL 15 ML BOTTLE EACHEYE SCH ×3 (05:30→17:16)
[2018-11-30] MEDS: BLOOD SUGAR DIAGNOSTIC 1 EACH STRIP IN SCH ×2 (05:30→17:16)
[2018-11-30] MEDS: INSULIN LISPRO/ASPART 100 UNIT/ML CARTRIDGE SQ PRN ×2 (05:31→17:16)
--- NOTE | 2018-11-30 07:54 | NUR ---
Female trach pt received unlabored on a mechanical vent. Pt trach is secure. Vent is plugged into a red outlet, alarms are set and audible, and BMV is at bedside. Addendum: 11/30/18 at 0754 by SHABNAM GROSSMAN RT Amended: Links added.
[2018-11-30 07:55] VITALS: BP 107/66
[2018-11-30] MEDS: BACLOFEN (10 MG) 10 MG TABLET GT SCH ×3 (08:01→16:21)
[2018-11-30] MEDS: DOCUSATE SODIUM LIQ 100 MG/10 ML UDC GT SCH ×2 (08:01→16:21)
[2018-11-30] MEDS: FERROUS SULFATE - FOR SA ONLY 330 MG/7.5 ML UDC GT SCH ×3 (08:01→16:21)
[2018-11-30] MEDS: METFORMIN 850 MG TABLET GT SCH ×2 (08:01→16:21)
[2018-11-30] MEDS: PROSTAT (PYXIS) 30 ML UDC GT SCH ×2 (08:01→16:21)
[2018-11-30] MEDS: POTASSIUM CHLORIDE 20 MEQ POWDER PACKET GT SCH (08:01)
[2018-11-30] MEDS: ASCORBIC ACID 500 MG TABLET GT SCH ×2 (08:01→16:21)
[2018-11-30] MEDS: LEVETIRACETAM SOL (5 ML) 100 MG/ML UDC GT SCH ×2 (08:01→20:21)
[2018-11-30] MEDS: HEPARIN SODIUM, PORCINE 5000 UNITS/1 ML VIAL SQ SCH ×2 (08:02→20:24)
[2018-11-30] MEDS: HYDROGEN PEROXIDE 480 ML BOTTLE TP SCH ×2 (09:00→20:25)
[2018-11-30] MEDS: Z GUARD REMEDY 4 OZ OINT TP SCH ×2 (09:00→21:33)
[2018-11-30] MEDS: FUNGI NAIL TP SCH ×2 (09:00→20:25)
[2018-11-30] MEDS: ZINC OXIDE 30 GM TUBE TP SCH ×2 (09:00→20:25)
[2018-11-30] MEDS: MULTIVIT W/MINERALS 1 TAB TABLET GT SCH (20:21)
[2018-11-30 20:35] VITALS: BP 117/72
[2018-11-30] MEDS: SENNOSIDES 8.6 MG TABLET GT SCH (21:33)
[2018-11-30] MEDS: INSULIN GLARGINE, 100 UNIT/ML CARTRIDGE SQ SCH (21:38)
--- NOTE | 2018-11-30 22:27 | NUR ---
PT RCVD TRACH'D ON MECHANICAL VENT WITH CHARTED SETTINGS. TX TUTU WELL. SX DONE. PT TRACH IS PATENT AND SECURE. VENT IS PLUGGED INTO RED OUTLET. ALARMS ARE ON AND AUDIBLE. AMBU BAG AT BEDSIDE. WILL CONTINUE TO MONITOR. Addendum: 11/30/18 at 2228 by CHAGO HOLMAN RT Amended: Links added.
[2018-11-30] MEDS: GLUCERNA 1.2 1,000 ML BOTTLE GT PRN (23:08)
[2018-12-01] MEDS: POLYVINYL ALCOHOL 15 ML BOTTLE EACHEYE SCH ×5 (00:05→23:19)
[2018-12-01] MEDS: IPRATROPIUM NEB FS 0.5 MG/2.5 ML AMPUL.NEB NEB SCH ×4 (01:16→19:46)
[2018-12-01] MEDS: ALBUTEROL FS 2.5 MG/3 ML VIAL.NEB NEB SCH ×4 (01:16→19:46)
[2018-12-01] MEDS: OMEPRAZOLE DR 20 MG GT SCH (05:15)
[2018-12-01] MEDS: INSULIN LISPRO/ASPART 100 UNIT/ML CARTRIDGE SQ PRN (05:15)
[2018-12-01] MEDS: BLOOD SUGAR DIAGNOSTIC 1 EACH STRIP IN SCH ×2 (05:15→18:51)
[2018-12-01 07:50] VITALS: BP 92/47
--- NOTE | 2018-12-01 07:57 | NUR ---
Dandre pt received unlabored on a mechanical vent. Pt dandre is secure. Vent is plugged into a red outlet, alarms are set and audible, and BMV is at bedside. Addendum: 12/01/18 at 0757 by SHABNAM GROSSMAN RT Amended: Links added.
[2018-12-01] MEDS: POTASSIUM CHLORIDE 20 MEQ POWDER PACKET GT SCH (09:00)
[2018-12-01] MEDS: ASCORBIC ACID 500 MG TABLET GT SCH ×2 (09:00→17:09)
[2018-12-01] MEDS: DOCUSATE SODIUM LIQ 100 MG/10 ML UDC GT SCH ×2 (09:00→17:09)
[2018-12-01] MEDS: FERROUS SULFATE - FOR SA ONLY 330 MG/7.5 ML UDC GT SCH ×3 (09:00→17:09)
[2018-12-01] MEDS: LEVETIRACETAM SOL (5 ML) 100 MG/ML UDC GT SCH ×2 (09:00→21:16)
[2018-12-01] MEDS: HYDROGEN PEROXIDE 480 ML BOTTLE TP SCH ×2 (09:00→21:16)
[2018-12-01] MEDS: ZINC OXIDE 30 GM TUBE TP SCH ×2 (09:00→21:17)
[2018-12-01] MEDS: Z GUARD REMEDY 4 OZ OINT TP SCH ×2 (09:00→21:17)
[2018-12-01] MEDS: BACLOFEN (10 MG) 10 MG TABLET GT SCH ×3 (09:00→17:09)
[2018-12-01] MEDS: PROSTAT (PYXIS) 30 ML UDC GT SCH ×2 (09:00→17:09)
[2018-12-01] MEDS: HEPARIN SODIUM, PORCINE 5000 UNITS/1 ML VIAL SQ SCH ×2 (09:00→21:16)
[2018-12-01] MEDS: METFORMIN 850 MG TABLET GT SCH ×2 (09:00→17:09)
[2018-12-01] MEDS: FUNGI NAIL TP SCH ×2 (09:00→21:16)
--- NOTE | 2018-12-01 20:03 | NUR ---
PT RCVD TRACH'D ON MECHANICAL VENT WITH CHARTED SETTINGS. TX TUTU WELL. SX DONE. PT TRACH IS PATENT AND SECURE. VENT IS PLUGGED INTO RED OUTLET. ALARMS ARE ON AND AUDIBLE. AMBU BAG AT BEDSIDE. WILL CONTINUE TO MONITOR. Addendum: 12/01/18 at 2002 by CHAGO HOLMAN RT Amended: Links added.
[2018-12-01] MEDS: MULTIVIT W/MINERALS 1 TAB TABLET GT SCH (21:16)
[2018-12-01] MEDS: SENNOSIDES 8.6 MG TABLET GT SCH (21:17)
[2018-12-01] MEDS: INSULIN GLARGINE, 100 UNIT/ML CARTRIDGE SQ SCH (21:18)
[2018-12-01 23:05] VITALS: BP 107/75
[2018-12-02] MEDS: ALBUTEROL FS 2.5 MG/3 ML VIAL.NEB NEB SCH ×4 (00:56→19:58)
[2018-12-02] MEDS: IPRATROPIUM NEB FS 0.5 MG/2.5 ML AMPUL.NEB NEB SCH ×4 (00:56→19:58)
[2018-12-02] MEDS: BLOOD SUGAR DIAGNOSTIC 1 EACH STRIP IN SCH ×2 (05:36→18:14)
[2018-12-02] MEDS: OMEPRAZOLE DR 20 MG GT SCH (05:36)
[2018-12-02] MEDS: POLYVINYL ALCOHOL 15 ML BOTTLE EACHEYE SCH ×3 (05:36→18:14)
[2018-12-02] MEDS: INSULIN LISPRO/ASPART 100 UNIT/ML CARTRIDGE SQ PRN (05:37)
[2018-12-02] MEDS: GLUCERNA 1.2 1,000 ML BOTTLE GT PRN (06:02)
[2018-12-02 08:02] VITALS: BP 110/61
[2018-12-02] MEDS: LEVETIRACETAM SOL (5 ML) 100 MG/ML UDC GT SCH ×2 (08:43→21:37)
[2018-12-02] MEDS: METFORMIN 850 MG TABLET GT SCH ×2 (08:43→16:53)
[2018-12-02] MEDS: Z GUARD REMEDY 4 OZ OINT TP SCH ×2 (08:43→21:38)
[2018-12-02] MEDS: HEPARIN SODIUM, PORCINE 5000 UNITS/1 ML VIAL SQ SCH ×2 (08:43→21:38)
[2018-12-02] MEDS: FERROUS SULFATE - FOR SA ONLY 330 MG/7.5 ML UDC GT SCH ×3 (08:43→16:53)
[2018-12-02] MEDS: ASCORBIC ACID 500 MG TABLET GT SCH ×2 (08:43→16:53)
[2018-12-02] MEDS: PROSTAT (PYXIS) 30 ML UDC GT SCH ×2 (08:43→16:53)
[2018-12-02] MEDS: BACLOFEN (10 MG) 10 MG TABLET GT SCH ×3 (08:43→16:53)
[2018-12-02] MEDS: FUNGI NAIL TP SCH ×2 (08:43→21:38)
[2018-12-02] MEDS: POTASSIUM CHLORIDE 20 MEQ POWDER PACKET GT SCH (08:43)
[2018-12-02] MEDS: HYDROGEN PEROXIDE 480 ML BOTTLE TP SCH ×2 (08:43→21:38)
[2018-12-02] MEDS: DOCUSATE SODIUM LIQ 100 MG/10 ML UDC GT SCH ×2 (08:43→16:53)
[2018-12-02 19:50] VITALS: BP 116/70
[2018-12-02] MEDS: MULTIVIT W/MINERALS 1 TAB TABLET GT SCH (21:37)
[2018-12-02] MEDS: SENNOSIDES 8.6 MG TABLET GT SCH (21:38)
[2018-12-02] MEDS: INSULIN GLARGINE, 100 UNIT/ML CARTRIDGE SQ SCH (22:06)
[2018-12-03] MEDS: POLYVINYL ALCOHOL 15 ML BOTTLE EACHEYE SCH ×4 (00:14→17:39)
[2018-12-03] MEDS: ALBUTEROL FS 2.5 MG/3 ML VIAL.NEB NEB SCH ×4 (01:17→19:58)
[2018-12-03] MEDS: IPRATROPIUM NEB FS 0.5 MG/2.5 ML AMPUL.NEB NEB SCH ×4 (01:17→19:58)
--- NOTE | 2018-12-03 02:45 | NUR ---
PATIENT RECEIVED ON TRACH TO VENT WITH SETTINGS OF AC 12, 500 VT, 30%, +0. SUCTIONED FOR MINIMAL, THIN, YELLOW SECRETIONS. GIVEN IN-LINE TREATMENTS WITH NO ADVERSE REACTIONS. AMBU BAG AT BEDSIDE. VENT ALARM AUDIBLE AND VISIBLE. VENT PLUGGED INTO RED OUTLET. Addendum: 12/03/18 at 0245 by WHITNEY KLEIN RT Amended: Links added.
[2018-12-03] MEDS: GLUCERNA 1.2 1,000 ML BOTTLE GT PRN (05:53)
[2018-12-03] MEDS: OMEPRAZOLE DR 20 MG GT SCH (05:53)
[2018-12-03] MEDS: BLOOD SUGAR DIAGNOSTIC 1 EACH STRIP IN SCH ×2 (05:53→17:39)
[2018-12-03] MEDS: INSULIN LISPRO/ASPART 100 UNIT/ML CARTRIDGE SQ PRN (05:54)
[2018-12-03 08:36] VITALS: BP 101/64
[2018-12-03] MEDS: HYDROGEN PEROXIDE 480 ML BOTTLE TP SCH ×2 (09:00→21:21)
[2018-12-03] MEDS: ASCORBIC ACID 500 MG TABLET GT SCH ×2 (09:00→17:03)
[2018-12-03] MEDS: METFORMIN 850 MG TABLET GT SCH ×2 (09:00→17:03)
[2018-12-03] MEDS: BACLOFEN (10 MG) 10 MG TABLET GT SCH ×3 (09:00→17:03)
[2018-12-03] MEDS: FUNGI NAIL TP SCH ×2 (09:00→21:21)
[2018-12-03] MEDS: HEPARIN SODIUM, PORCINE 5000 UNITS/1 ML VIAL SQ SCH ×2 (09:00→21:21)
[2018-12-03] MEDS: LEVETIRACETAM SOL (5 ML) 100 MG/ML UDC GT SCH ×2 (09:00→21:18)
[2018-12-03] MEDS: PROSTAT (PYXIS) 30 ML UDC GT SCH ×2 (09:00→17:03)
[2018-12-03] MEDS: FERROUS SULFATE - FOR SA ONLY 330 MG/7.5 ML UDC GT SCH ×3 (09:00→17:03)
[2018-12-03] MEDS: POTASSIUM CHLORIDE 20 MEQ POWDER PACKET GT SCH (09:00)
[2018-12-03] MEDS: DOCUSATE SODIUM LIQ 100 MG/10 ML UDC GT SCH ×2 (09:00→17:03)
[2018-12-03] MEDS: Z GUARD REMEDY 4 OZ OINT TP SCH ×2 (09:00→21:21)
--- NOTE | 2018-12-03 09:00 | NUR ---
Seen and examined by Dr. Dsouza, no new order given.
--- NOTE | 2018-12-03 20:20 | NUR ---
RT NOTE PATIENT RECEIVED TRACHED ON MECHANICAL VENTILATION. AMBU BAG/BACK UP TRACH @ BEDSIDE. VENT PLUGGED TO RED OUTLET. ALARMS ON AND AUDIBLE. TX GIVEN, NO ADVERSE REACTIONS NOTED. SX DONE, MODERATE THICK WHITE SECRETIONS NOTED. PATIENT STABLE AT THIS TIME. WILL MONITOR. Addendum: 12/03/18 at 2021 by ABIOLA COMBS RT Amended: Links added.
[2018-12-03 20:43] VITALS: BP 109/68
[2018-12-03] MEDS: MULTIVIT W/MINERALS 1 TAB TABLET GT SCH (21:18)
[2018-12-03] MEDS: SENNOSIDES 8.6 MG TABLET GT SCH (21:22)
[2018-12-03] MEDS: INSULIN GLARGINE, 100 UNIT/ML CARTRIDGE SQ SCH (21:25)
[2018-12-04] MEDS: POLYVINYL ALCOHOL 15 ML BOTTLE EACHEYE SCH ×4 (00:41→18:22)
[2018-12-04] MEDS: IPRATROPIUM NEB FS 0.5 MG/2.5 ML AMPUL.NEB NEB SCH ×4 (01:39→19:22)
[2018-12-04] MEDS: ALBUTEROL FS 2.5 MG/3 ML VIAL.NEB NEB SCH ×4 (01:40→19:22)
[2018-12-04] MEDS: OMEPRAZOLE DR 20 MG GT SCH (05:52)
[2018-12-04] MEDS: BLOOD SUGAR DIAGNOSTIC 1 EACH STRIP IN SCH ×2 (05:52→18:22)
[2018-12-04 08:01] VITALS: BP 122/66
[2018-12-04] MEDS: ASCORBIC ACID 500 MG TABLET GT SCH ×2 (08:29→16:44)
[2018-12-04] MEDS: POTASSIUM CHLORIDE 20 MEQ POWDER PACKET GT SCH (08:29)
[2018-12-04] MEDS: METFORMIN 850 MG TABLET GT SCH ×2 (08:29→16:40)
[2018-12-04] MEDS: FERROUS SULFATE - FOR SA ONLY 330 MG/7.5 ML UDC GT SCH ×3 (08:29→16:40)
[2018-12-04] MEDS: PROSTAT (PYXIS) 30 ML UDC GT SCH ×2 (08:29→16:40)
[2018-12-04] MEDS: BACLOFEN (10 MG) 10 MG TABLET GT SCH ×3 (08:29→16:40)
[2018-12-04] MEDS: LEVETIRACETAM SOL (5 ML) 100 MG/ML UDC GT SCH ×2 (08:29→21:15)
[2018-12-04] MEDS: DOCUSATE SODIUM LIQ 100 MG/10 ML UDC GT SCH ×2 (08:29→16:40)
[2018-12-04] MEDS: FUNGI NAIL TP SCH ×2 (08:30→21:16)
[2018-12-04] MEDS: HEPARIN SODIUM, PORCINE 5000 UNITS/1 ML VIAL SQ SCH ×2 (08:30→21:16)
[2018-12-04] MEDS: HYDROGEN PEROXIDE 480 ML BOTTLE TP SCH ×2 (08:30→21:16)
[2018-12-04] MEDS: Z GUARD REMEDY 4 OZ OINT TP SCH ×2 (08:30→21:16)
--- NOTE | 2018-12-04 08:35 | NUR ---
RT NOTE PATIENT RECEIVED TRACHED ON MECHANICAL VENTILATION. AMBU BAG/BACK UP TRACH @ BEDSIDE. VENT PLUGGED TO RED OUTLET. ALARMS ON AND AUDIBLE. TX GIVEN, NO ADVERSE REACTIONS NOTED. SX DONE, SMALL THICK PALE YELLOW SECRETIONS NOTED. PATIENT STABLE AT THIS TIME. WILL CONTINUE TO MONITOR. Addendum: 12/04/18 at 0836 by ARIS CRUZ RT Amended: Links added.
[2018-12-04] MEDS: INSULIN LISPRO/ASPART 100 UNIT/ML CARTRIDGE SQ PRN (18:22)
[2018-12-04 20:02] VITALS: BP 116/74
[2018-12-04] MEDS: MULTIVIT W/MINERALS 1 TAB TABLET GT SCH (21:15)
[2018-12-04] MEDS: SENNOSIDES 8.6 MG TABLET GT SCH (21:17)
[2018-12-04] MEDS: INSULIN GLARGINE, 100 UNIT/ML CARTRIDGE SQ SCH (21:17)
[2018-12-05] MEDS: POLYVINYL ALCOHOL 15 ML BOTTLE EACHEYE SCH ×5 (00:14→23:44)
[2018-12-05] MEDS: IPRATROPIUM NEB FS 0.5 MG/2.5 ML AMPUL.NEB NEB SCH ×4 (01:57→19:57)
[2018-12-05] MEDS: ALBUTEROL FS 2.5 MG/3 ML VIAL.NEB NEB SCH ×4 (01:57→19:57)
[2018-12-05] MEDS: OMEPRAZOLE DR 20 MG GT SCH (05:23)
[2018-12-05] MEDS: BLOOD SUGAR DIAGNOSTIC 1 EACH STRIP IN SCH ×2 (05:47→17:24)
--- NOTE | 2018-12-05 07:58 | NUR ---
Female trach pt received unlabored on a mechanical vent. Pt trach is secure. Vent is plugged into a red outlet, alarms are set and audible, and BMV is at bedside. Addendum: 12/05/18 at 0758 by SHABNAM GROSSMAN RT Amended: Links added.
[2018-12-05] MEDS: PROSTAT (PYXIS) 30 ML UDC GT SCH ×2 (08:36→16:17)
[2018-12-05] MEDS: FERROUS SULFATE - FOR SA ONLY 330 MG/7.5 ML UDC GT SCH ×3 (08:36→16:17)
[2018-12-05] MEDS: DOCUSATE SODIUM LIQ 100 MG/10 ML UDC GT SCH ×2 (08:36→16:17)
[2018-12-05] MEDS: POTASSIUM CHLORIDE 20 MEQ POWDER PACKET GT SCH (08:36)
[2018-12-05] MEDS: LEVETIRACETAM SOL (5 ML) 100 MG/ML UDC GT SCH ×2 (08:36→21:15)
[2018-12-05] MEDS: BACLOFEN (10 MG) 10 MG TABLET GT SCH ×3 (08:36→16:17)
[2018-12-05] MEDS: ASCORBIC ACID 500 MG TABLET GT SCH ×2 (08:36→16:17)
[2018-12-05] MEDS: METFORMIN 850 MG TABLET GT SCH ×2 (08:36→16:17)
[2018-12-05] MEDS: HEPARIN SODIUM, PORCINE 5000 UNITS/1 ML VIAL SQ SCH ×2 (08:36→21:15)
[2018-12-05 08:40] VITALS: BP 118/75
[2018-12-05] MEDS: Z GUARD REMEDY 4 OZ OINT TP SCH ×2 (09:00→21:16)
[2018-12-05] MEDS: HYDROGEN PEROXIDE 480 ML BOTTLE TP SCH ×2 (09:00→21:15)
[2018-12-05] MEDS: FUNGI NAIL TP SCH ×2 (09:00→21:15)
--- NOTE | 2018-12-05 09:00 | NUR ---
Seen and examined by Dr. Alvarez, no new order given.
[2018-12-05] MEDS: INSULIN LISPRO/ASPART 100 UNIT/ML CARTRIDGE SQ PRN (17:24)
[2018-12-05] MEDS: MULTIVIT W/MINERALS 1 TAB TABLET GT SCH (21:15)
[2018-12-05] MEDS: INSULIN GLARGINE, 100 UNIT/ML CARTRIDGE SQ SCH (21:16)
[2018-12-05] MEDS: SENNOSIDES 8.6 MG TABLET GT SCH (21:16)
[2018-12-06] MEDS: ALBUTEROL FS 2.5 MG/3 ML VIAL.NEB NEB SCH ×4 (01:11→19:53)
[2018-12-06] MEDS: IPRATROPIUM NEB FS 0.5 MG/2.5 ML AMPUL.NEB NEB SCH ×4 (01:11→19:53)
[2018-12-06] MEDS: POLYVINYL ALCOHOL 15 ML BOTTLE EACHEYE SCH ×3 (05:41→17:06)
[2018-12-06] MEDS: OMEPRAZOLE DR 20 MG GT SCH (05:41)
[2018-12-06] MEDS: BLOOD SUGAR DIAGNOSTIC 1 EACH STRIP IN SCH ×2 (05:42→18:07)
[2018-12-06 07:08] VITALS: BP 118/71
[2018-12-06] MEDS: PROSTAT (PYXIS) 30 ML UDC GT SCH ×2 (09:00→16:40)
[2018-12-06] MEDS: DOCUSATE SODIUM LIQ 100 MG/10 ML UDC GT SCH ×2 (09:00→16:40)
[2018-12-06] MEDS: Z GUARD REMEDY 4 OZ OINT TP SCH ×2 (09:00→21:12)
[2018-12-06] MEDS: FUNGI NAIL TP SCH ×2 (09:00→21:12)
[2018-12-06] MEDS: ASCORBIC ACID 500 MG TABLET GT SCH ×2 (09:00→16:40)
[2018-12-06] MEDS: LEVETIRACETAM SOL (5 ML) 100 MG/ML UDC GT SCH ×2 (09:00→21:11)
[2018-12-06] MEDS: HYDROGEN PEROXIDE 480 ML BOTTLE TP SCH ×2 (09:00→21:12)
[2018-12-06] MEDS: METFORMIN 850 MG TABLET GT SCH ×2 (09:00→16:40)
[2018-12-06] MEDS: HEPARIN SODIUM, PORCINE 5000 UNITS/1 ML VIAL SQ SCH ×2 (09:00→21:12)
[2018-12-06] MEDS: BACLOFEN (10 MG) 10 MG TABLET GT SCH ×3 (09:00→16:40)
[2018-12-06] MEDS: FERROUS SULFATE - FOR SA ONLY 330 MG/7.5 ML UDC GT SCH ×3 (09:00→16:40)
[2018-12-06] MEDS: POTASSIUM CHLORIDE 20 MEQ POWDER PACKET GT SCH (09:00)
[2018-12-06 12:07] VITALS: BP 95/61
[2018-12-06 20:07] VITALS: BP 102/59
[2018-12-06] MEDS: MULTIVIT W/MINERALS 1 TAB TABLET GT SCH (21:11)
[2018-12-06] MEDS: SENNOSIDES 8.6 MG TABLET GT SCH (21:12)
[2018-12-06] MEDS: INSULIN GLARGINE, 100 UNIT/ML CARTRIDGE SQ SCH (22:32)
[2018-12-07] MEDS: POLYVINYL ALCOHOL 15 ML BOTTLE EACHEYE SCH ×5 (00:22→23:16)
[2018-12-07] MEDS: ALBUTEROL FS 2.5 MG/3 ML VIAL.NEB NEB SCH ×4 (02:07→20:26)
[2018-12-07] MEDS: IPRATROPIUM NEB FS 0.5 MG/2.5 ML AMPUL.NEB NEB SCH ×4 (02:07→20:26)
[2018-12-07] MEDS: BLOOD SUGAR DIAGNOSTIC 1 EACH STRIP IN SCH ×2 (05:54→17:54)
[2018-12-07] MEDS: GLUCERNA 1.2 1,000 ML BOTTLE GT PRN (05:54)
[2018-12-07] MEDS: OMEPRAZOLE DR 20 MG GT SCH (05:54)
[2018-12-07] MEDS: INSULIN LISPRO/ASPART 100 UNIT/ML CARTRIDGE SQ PRN ×2 (05:55→17:55)
[2018-12-07 08:02] VITALS: BP 102/55
--- NOTE | 2018-12-07 08:12 | NUR ---
Female trach pt received unlabored on a mechanical vent. PT trach is secure. Vent is plugged into a red outlet, alarms are set and audible, and BMV is at bedside. Addendum: 12/07/18 at 0813 by SHABNAM GROSSMAN RT Amended: Links added.
[2018-12-07] MEDS: DOCUSATE SODIUM LIQ 100 MG/10 ML UDC GT SCH ×2 (08:39→17:54)
[2018-12-07] MEDS: POTASSIUM CHLORIDE 20 MEQ POWDER PACKET GT SCH (08:39)
[2018-12-07] MEDS: PROSTAT (PYXIS) 30 ML UDC GT SCH ×2 (08:39→17:54)
[2018-12-07] MEDS: BACLOFEN (10 MG) 10 MG TABLET GT SCH ×3 (08:39→17:54)
[2018-12-07] MEDS: LEVETIRACETAM SOL (5 ML) 100 MG/ML UDC GT SCH ×2 (08:39→20:16)
[2018-12-07] MEDS: METFORMIN 850 MG TABLET GT SCH ×2 (08:39→17:54)
[2018-12-07] MEDS: FERROUS SULFATE - FOR SA ONLY 330 MG/7.5 ML UDC GT SCH ×3 (08:39→17:54)
[2018-12-07] MEDS: HYDROGEN PEROXIDE 480 ML BOTTLE TP SCH ×2 (08:40→20:16)
[2018-12-07] MEDS: FUNGI NAIL TP SCH ×2 (08:40→20:16)
[2018-12-07] MEDS: HEPARIN SODIUM, PORCINE 5000 UNITS/1 ML VIAL SQ SCH ×2 (08:40→20:16)
[2018-12-07] MEDS: Z GUARD REMEDY 4 OZ OINT TP SCH ×2 (08:40→20:17)
[2018-12-07] MEDS: ASCORBIC ACID 500 MG TABLET GT SCH ×2 (08:40→17:54)
[2018-12-07] MEDS: MULTIVIT W/MINERALS 1 TAB TABLET GT SCH (20:16)
[2018-12-07 20:36] VITALS: BP 127/78
--- NOTE | 2018-12-07 20:57 | NUR ---
RT NOTE PT REC'D TRACHED ON [facility] VENT ON AC MODE. NO RESP DISTRESS OR SOB NOTED. TRACH PATENT AND SECURED. SX'D FOR MOD AMT OF THICK PALE YELLOW SECRETIONS. ALARMS ARE SET AND AUDIBLE. VENT PLUGGED INTO RED OUTLET. AMBU BAG BEDSIDE. WILL CONTINUE TO MONITOR. Addendum: 12/07/18 at 2056 by PETER MARADIAGA RT Amended: Links added.
[2018-12-07] MEDS: SENNOSIDES 8.6 MG TABLET GT SCH (21:07)
[2018-12-07] MEDS: NYSTATIN/TRIAMCIN CREAM 15 GM TUBE TP SCH (21:07)
[2018-12-07] MEDS: INSULIN GLARGINE, 100 UNIT/ML CARTRIDGE SQ SCH (21:08)
[2018-12-08] MEDS: IPRATROPIUM NEB FS 0.5 MG/2.5 ML AMPUL.NEB NEB SCH ×4 (02:00→20:27)
[2018-12-08] MEDS: ALBUTEROL FS 2.5 MG/3 ML VIAL.NEB NEB SCH ×4 (02:00→20:27)
[2018-12-08] MEDS: GLUCERNA 1.2 1,000 ML BOTTLE GT PRN (05:30)
[2018-12-08] MEDS: POLYVINYL ALCOHOL 15 ML BOTTLE EACHEYE SCH ×4 (05:30→23:33)
[2018-12-08] MEDS: BLOOD SUGAR DIAGNOSTIC 1 EACH STRIP IN SCH ×2 (05:30→18:12)
[2018-12-08] MEDS: OMEPRAZOLE DR 20 MG GT SCH (05:30)
[2018-12-08] MEDS: INSULIN LISPRO/ASPART 100 UNIT/ML CARTRIDGE SQ PRN ×2 (05:30→18:12)
[2018-12-08 07:29] VITALS: BP 104/69
[2018-12-08] MEDS: DOCUSATE SODIUM LIQ 100 MG/10 ML UDC GT SCH ×2 (08:18→16:40)
[2018-12-08] MEDS: FERROUS SULFATE - FOR SA ONLY 330 MG/7.5 ML UDC GT SCH ×3 (08:18→16:40)
[2018-12-08] MEDS: PROSTAT (PYXIS) 30 ML UDC GT SCH ×2 (08:18→16:40)
[2018-12-08] MEDS: METFORMIN 850 MG TABLET GT SCH ×2 (08:18→16:40)
[2018-12-08] MEDS: ASCORBIC ACID 500 MG TABLET GT SCH ×2 (08:18→16:40)
[2018-12-08] MEDS: POTASSIUM CHLORIDE 20 MEQ POWDER PACKET GT SCH (08:18)
[2018-12-08] MEDS: LEVETIRACETAM SOL (5 ML) 100 MG/ML UDC GT SCH ×2 (08:18→20:12)
[2018-12-08] MEDS: BACLOFEN (10 MG) 10 MG TABLET GT SCH ×3 (08:18→16:40)
[2018-12-08] MEDS: HEPARIN SODIUM, PORCINE 5000 UNITS/1 ML VIAL SQ SCH ×2 (08:19→20:12)
--- NOTE | 2018-12-08 08:26 | NUR ---
RT NOTE PATIENT RECEIVED TRACHED ON MECHANICAL VENTILATION. AMBU BAG/BACK UP TRACH @ BEDSIDE. VENT PLUGGED TO RED OUTLET. ALARMS ON AND AUDIBLE. TX GIVEN, NO ADVERSE REACTIONS NOTED. SX DONE, SMALL THICK WHITE SECRETIONS NOTED. PATIENT STABLE AT THIS TIME. WILL CONTINUE TO MONITOR. Addendum: 12/08/18 at 0827 by ARIS CRUZ RT Amended: Links added.
[2018-12-08] MEDS: Z GUARD REMEDY 4 OZ OINT TP SCH ×2 (09:00→20:13)
[2018-12-08] MEDS: NYSTATIN/TRIAMCIN CREAM 15 GM TUBE TP SCH ×2 (09:00→20:13)
[2018-12-08] MEDS: FUNGI NAIL TP SCH ×2 (09:00→20:13)
[2018-12-08] MEDS: HYDROGEN PEROXIDE 480 ML BOTTLE TP SCH ×2 (09:00→20:13)
--- NOTE | 2018-12-08 12:30 | NUR ---
Seen and examined by Dr. Dsouza, seen GT redness, patient currently on Triamcinolone/Nystatin cream, NNO given.
[2018-12-08] MEDS: MULTIVIT W/MINERALS 1 TAB TABLET GT SCH (20:12)
[2018-12-08] MEDS: SENNOSIDES 8.6 MG TABLET GT SCH (21:09)
[2018-12-08] MEDS: INSULIN GLARGINE, 100 UNIT/ML CARTRIDGE SQ SCH (21:10)
[2018-12-08 21:31] VITALS: BP 100/72
--- NOTE | 2018-12-09 00:51 | NUR ---
RT NOTE PT REC'D TRACHED ON [facility] VENT ON AC MODE. NO RESP DISTRESS OR SOB NOTED. TRACH PATENT AND SECURED. SX'D FOR MOD AMT OF PALE YELLOW SECRETIONS. ALARMS ARE SET AND AUDIBLE. VENT PLUGGED INTO RED OUTLET. AMBU BAG BEDSIDE. WILL CONTINUE TO MONITOR Addendum: 12/09/18 at 0051 by PETER MARADIAGA RT Amended: Links added.
[2018-12-09] MEDS: IPRATROPIUM NEB FS 0.5 MG/2.5 ML AMPUL.NEB NEB SCH ×4 (01:48→19:27)
[2018-12-09] MEDS: ALBUTEROL FS 2.5 MG/3 ML VIAL.NEB NEB SCH ×4 (01:48→19:27)
[2018-12-09] MEDS: POLYVINYL ALCOHOL 15 ML BOTTLE EACHEYE SCH ×4 (05:22→23:10)
[2018-12-09] MEDS: BLOOD SUGAR DIAGNOSTIC 1 EACH STRIP IN SCH ×2 (05:23→17:21)
[2018-12-09] MEDS: INSULIN LISPRO/ASPART 100 UNIT/ML CARTRIDGE SQ PRN ×2 (05:23→17:29)
[2018-12-09] MEDS: OMEPRAZOLE DR 20 MG GT SCH (05:23)
[2018-12-09] MEDS: GLUCERNA 1.2 1,000 ML BOTTLE GT PRN (05:23)
[2018-12-09 07:32] VITALS: BP 97/60
[2018-12-09] MEDS: FUNGI NAIL TP SCH ×2 (09:00→20:24)
[2018-12-09] MEDS: NYSTATIN/TRIAMCIN CREAM 15 GM TUBE TP SCH ×2 (09:00→20:24)
[2018-12-09] MEDS: HYDROGEN PEROXIDE 480 ML BOTTLE TP SCH ×2 (09:00→20:24)
[2018-12-09] MEDS: Z GUARD REMEDY 4 OZ OINT TP SCH ×2 (09:00→20:24)
[2018-12-09] MEDS: PROSTAT (PYXIS) 30 ML UDC GT SCH ×2 (09:02→17:21)
[2018-12-09] MEDS: LEVETIRACETAM SOL (5 ML) 100 MG/ML UDC GT SCH ×2 (09:02→20:23)
[2018-12-09] MEDS: BACLOFEN (10 MG) 10 MG TABLET GT SCH ×3 (09:02→17:21)
[2018-12-09] MEDS: ASCORBIC ACID 500 MG TABLET GT SCH ×2 (09:02→17:21)
[2018-12-09] MEDS: FERROUS SULFATE - FOR SA ONLY 330 MG/7.5 ML UDC GT SCH ×3 (09:02→17:21)
[2018-12-09] MEDS: POTASSIUM CHLORIDE 20 MEQ POWDER PACKET GT SCH (09:02)
[2018-12-09] MEDS: DOCUSATE SODIUM LIQ 100 MG/10 ML UDC GT SCH ×2 (09:02→17:21)
[2018-12-09] MEDS: METFORMIN 850 MG TABLET GT SCH ×2 (09:02→17:21)
[2018-12-09] MEDS: HEPARIN SODIUM, PORCINE 5000 UNITS/1 ML VIAL SQ SCH ×2 (09:15→20:24)
[2018-12-09] MEDS: MULTIVIT W/MINERALS 1 TAB TABLET GT SCH (20:23)
[2018-12-09 20:47] VITALS: BP 128/77
[2018-12-09] MEDS: INSULIN GLARGINE, 100 UNIT/ML CARTRIDGE SQ SCH (21:08)
[2018-12-09] MEDS: SENNOSIDES 8.6 MG TABLET GT SCH (21:08)
[2018-12-10] MEDS: IPRATROPIUM NEB FS 0.5 MG/2.5 ML AMPUL.NEB NEB SCH ×4 (01:28→19:51)
[2018-12-10] MEDS: ALBUTEROL FS 2.5 MG/3 ML VIAL.NEB NEB SCH ×4 (01:28→19:51)
[2018-12-10] MEDS: BLOOD SUGAR DIAGNOSTIC 1 EACH STRIP IN SCH ×2 (05:09→18:15)
[2018-12-10] MEDS: OMEPRAZOLE DR 20 MG GT SCH (05:09)
[2018-12-10] MEDS: GLUCERNA 1.2 1,000 ML BOTTLE GT PRN (05:09)
[2018-12-10] MEDS: POLYVINYL ALCOHOL 15 ML BOTTLE EACHEYE SCH ×3 (05:09→17:32)
[2018-12-10] MEDS: INSULIN LISPRO/ASPART 100 UNIT/ML CARTRIDGE SQ PRN (05:09)
[2018-12-10 07:32] VITALS: BP 114/72
[2018-12-10] MEDS: HYDROGEN PEROXIDE 480 ML BOTTLE TP SCH ×2 (09:00→21:34)
[2018-12-10] MEDS: Z GUARD REMEDY 4 OZ OINT TP SCH ×2 (09:00→21:37)
[2018-12-10] MEDS: HEPARIN SODIUM, PORCINE 5000 UNITS/1 ML VIAL SQ SCH ×2 (09:00→21:36)
[2018-12-10] MEDS: METFORMIN 850 MG TABLET GT SCH ×2 (09:00→17:31)
[2018-12-10] MEDS: BACLOFEN (10 MG) 10 MG TABLET GT SCH ×3 (09:00→17:31)
[2018-12-10] MEDS: ASCORBIC ACID 500 MG TABLET GT SCH ×2 (09:00→17:31)
[2018-12-10] MEDS: FUNGI NAIL TP SCH ×2 (09:00→21:36)
[2018-12-10] MEDS: POTASSIUM CHLORIDE 20 MEQ POWDER PACKET GT SCH (09:00)
[2018-12-10] MEDS: NYSTATIN/TRIAMCIN CREAM 15 GM TUBE TP SCH ×2 (09:00→21:34)
[2018-12-10] MEDS: DOCUSATE SODIUM LIQ 100 MG/10 ML UDC GT SCH ×2 (09:00→17:31)
[2018-12-10] MEDS: FERROUS SULFATE - FOR SA ONLY 330 MG/7.5 ML UDC GT SCH ×3 (09:00→17:31)
[2018-12-10] MEDS: PROSTAT (PYXIS) 30 ML UDC GT SCH ×2 (09:00→17:31)
[2018-12-10] MEDS: LEVETIRACETAM SOL (5 ML) 100 MG/ML UDC GT SCH ×2 (09:00→21:34)
[2018-12-10 20:33] VITALS: BP 99/61
[2018-12-10] MEDS: MULTIVIT W/MINERALS 1 TAB TABLET GT SCH (21:34)
[2018-12-10] MEDS: SENNOSIDES 8.6 MG TABLET GT SCH (21:37)
[2018-12-10] MEDS: INSULIN GLARGINE, 100 UNIT/ML CARTRIDGE SQ SCH (21:39)
[2018-12-11] MEDS: POLYVINYL ALCOHOL 15 ML BOTTLE EACHEYE SCH ×5 (00:18→23:24)
[2018-12-11] MEDS: IPRATROPIUM NEB FS 0.5 MG/2.5 ML AMPUL.NEB NEB SCH ×4 (01:55→19:30)
[2018-12-11] MEDS: ALBUTEROL FS 2.5 MG/3 ML VIAL.NEB NEB SCH ×4 (01:55→19:30)
[2018-12-11] MEDS: OMEPRAZOLE DR 20 MG GT SCH (06:33)
[2018-12-11] MEDS: BLOOD SUGAR DIAGNOSTIC 1 EACH STRIP IN SCH ×2 (06:33→18:12)
[2018-12-11] MEDS: INSULIN LISPRO/ASPART 100 UNIT/ML CARTRIDGE SQ PRN ×2 (06:34→18:13)
[2018-12-11] MEDS: GLUCERNA 1.2 1,000 ML BOTTLE GT PRN (06:34)
[2018-12-11 07:49] VITALS: BP 93/60
[2018-12-11] MEDS: FERROUS SULFATE - FOR SA ONLY 330 MG/7.5 ML UDC GT SCH ×3 (08:19→17:52)
[2018-12-11] MEDS: DOCUSATE SODIUM LIQ 100 MG/10 ML UDC GT SCH ×2 (08:19→17:52)
[2018-12-11] MEDS: POTASSIUM CHLORIDE 20 MEQ POWDER PACKET GT SCH (08:20)
[2018-12-11] MEDS: METFORMIN 850 MG TABLET GT SCH ×2 (08:20→17:52)
[2018-12-11] MEDS: PROSTAT (PYXIS) 30 ML UDC GT SCH ×2 (08:20→17:52)
[2018-12-11] MEDS: BACLOFEN (10 MG) 10 MG TABLET GT SCH ×3 (08:20→17:52)
[2018-12-11] MEDS: LEVETIRACETAM SOL (5 ML) 100 MG/ML UDC GT SCH ×2 (08:20→21:03)
[2018-12-11] MEDS: ASCORBIC ACID 500 MG TABLET GT SCH ×2 (08:21→17:52)
[2018-12-11] MEDS: HEPARIN SODIUM, PORCINE 5000 UNITS/1 ML VIAL SQ SCH ×2 (08:23→21:04)
[2018-12-11] MEDS: FUNGI NAIL TP SCH ×2 (09:00→21:04)
[2018-12-11] MEDS: NYSTATIN/TRIAMCIN CREAM 15 GM TUBE TP SCH ×2 (09:00→21:04)
[2018-12-11] MEDS: Z GUARD REMEDY 4 OZ OINT TP SCH ×2 (09:00→21:04)
[2018-12-11] MEDS: HYDROGEN PEROXIDE 480 ML BOTTLE TP SCH ×2 (09:00→21:04)
[2018-12-11 20:00] VITALS: BP 129/70
[2018-12-11 20:34] VITALS: BP 129/70
[2018-12-11] MEDS: SENNOSIDES 8.6 MG TABLET GT SCH (21:04)
[2018-12-11] MEDS: MULTIVIT W/MINERALS 1 TAB TABLET GT SCH (21:05)
[2018-12-11] MEDS: INSULIN GLARGINE, 100 UNIT/ML CARTRIDGE SQ SCH (21:19)
[2018-12-12] MEDS: IPRATROPIUM NEB FS 0.5 MG/2.5 ML AMPUL.NEB NEB SCH ×4 (01:30→20:05)
[2018-12-12] MEDS: ALBUTEROL FS 2.5 MG/3 ML VIAL.NEB NEB SCH ×4 (01:30→20:05)
[2018-12-12] MEDS: GLUCERNA 1.2 1,000 ML BOTTLE GT PRN (05:14)
[2018-12-12] MEDS: POLYVINYL ALCOHOL 15 ML BOTTLE EACHEYE SCH ×3 (05:18→18:51)
[2018-12-12] MEDS: BLOOD SUGAR DIAGNOSTIC 1 EACH STRIP IN SCH ×2 (05:19→18:51)
[2018-12-12] MEDS: OMEPRAZOLE DR 20 MG GT SCH (05:19)
[2018-12-12] MEDS: INSULIN LISPRO/ASPART 100 UNIT/ML CARTRIDGE SQ PRN ×2 (05:26→18:55)
--- NOTE | 2018-12-12 07:53 | NUR ---
Received female sergio pt on a mechanical vent. Pt sergio is secure. Vent is plugged into a red outlet, alarms are set and audible, and BMV is at bedside. Addendum: 12/12/18 at 0753 by SHABNAM GROSSMAN RT Amended: Links added.
[2018-12-12 07:54] VITALS: BP 103/68
[2018-12-12] MEDS: LEVETIRACETAM SOL (5 ML) 100 MG/ML UDC GT SCH ×2 (09:00→20:27)
[2018-12-12] MEDS: BACLOFEN (10 MG) 10 MG TABLET GT SCH ×3 (09:00→17:00)
[2018-12-12] MEDS: FERROUS SULFATE - FOR SA ONLY 330 MG/7.5 ML UDC GT SCH ×3 (09:00→17:00)
[2018-12-12] MEDS: HEPARIN SODIUM, PORCINE 5000 UNITS/1 ML VIAL SQ SCH ×2 (09:00→20:27)
[2018-12-12] MEDS: PROSTAT (PYXIS) 30 ML UDC GT SCH ×2 (09:00→17:00)
[2018-12-12] MEDS: POTASSIUM CHLORIDE 20 MEQ POWDER PACKET GT SCH (09:00)
[2018-12-12] MEDS: NYSTATIN/TRIAMCIN CREAM 15 GM TUBE TP SCH ×2 (09:00→20:28)
[2018-12-12] MEDS: METFORMIN 850 MG TABLET GT SCH ×2 (09:00→17:00)
[2018-12-12] MEDS: FUNGI NAIL TP SCH ×2 (09:00→20:28)
[2018-12-12] MEDS: Z GUARD REMEDY 4 OZ OINT TP SCH ×2 (09:00→20:28)
[2018-12-12] MEDS: HYDROGEN PEROXIDE 480 ML BOTTLE TP SCH ×2 (09:00→20:28)
[2018-12-12] MEDS: ASCORBIC ACID 500 MG TABLET GT SCH ×2 (09:00→17:00)
[2018-12-12] MEDS: DOCUSATE SODIUM LIQ 100 MG/10 ML UDC GT SCH ×2 (09:00→17:00)
[2018-12-12 20:01] VITALS: BP 102/74
[2018-12-12] MEDS: MULTIVIT W/MINERALS 1 TAB TABLET GT SCH (20:27)
[2018-12-12] MEDS: SENNOSIDES 8.6 MG TABLET GT SCH (21:30)
[2018-12-12] MEDS: INSULIN GLARGINE, 100 UNIT/ML CARTRIDGE SQ SCH (21:32)
[2018-12-13] MEDS: POLYVINYL ALCOHOL 15 ML BOTTLE EACHEYE SCH ×5 (00:23→23:49)
[2018-12-13] MEDS: IPRATROPIUM NEB FS 0.5 MG/2.5 ML AMPUL.NEB NEB SCH ×4 (01:43→19:06)
[2018-12-13] MEDS: ALBUTEROL FS 2.5 MG/3 ML VIAL.NEB NEB SCH ×4 (01:43→19:06)
[2018-12-13] MEDS: OMEPRAZOLE DR 20 MG GT SCH (05:05)
[2018-12-13] MEDS: BLOOD SUGAR DIAGNOSTIC 1 EACH STRIP IN SCH ×2 (05:53→18:40)
[2018-12-13] MEDS: INSULIN LISPRO/ASPART 100 UNIT/ML CARTRIDGE SQ PRN ×2 (05:53→18:41)
[2018-12-13 07:26] VITALS: BP 109/67
[2018-12-13] MEDS: HEPARIN SODIUM, PORCINE 5000 UNITS/1 ML VIAL SQ SCH ×2 (08:10→20:20)
[2018-12-13] MEDS: PROSTAT (PYXIS) 30 ML UDC GT SCH ×2 (08:10→16:33)
[2018-12-13] MEDS: METFORMIN 850 MG TABLET GT SCH ×2 (08:10→16:33)
[2018-12-13] MEDS: LEVETIRACETAM SOL (5 ML) 100 MG/ML UDC GT SCH ×2 (08:10→20:19)
[2018-12-13] MEDS: NYSTATIN/TRIAMCIN CREAM 15 GM TUBE TP SCH ×2 (08:10→20:20)
[2018-12-13] MEDS: POTASSIUM CHLORIDE 20 MEQ POWDER PACKET GT SCH (08:10)
[2018-12-13] MEDS: FERROUS SULFATE - FOR SA ONLY 330 MG/7.5 ML UDC GT SCH ×3 (08:10→16:33)
[2018-12-13] MEDS: HYDROGEN PEROXIDE 480 ML BOTTLE TP SCH ×2 (08:10→20:20)
[2018-12-13] MEDS: BACLOFEN (10 MG) 10 MG TABLET GT SCH ×3 (08:10→16:33)
[2018-12-13] MEDS: DOCUSATE SODIUM LIQ 100 MG/10 ML UDC GT SCH ×2 (08:10→16:33)
[2018-12-13] MEDS: ASCORBIC ACID 500 MG TABLET GT SCH ×2 (08:10→16:33)
[2018-12-13] MEDS: FUNGI NAIL TP SCH ×2 (08:11→20:20)
[2018-12-13] MEDS: Z GUARD REMEDY 4 OZ OINT TP SCH ×2 (08:11→20:21)
--- NOTE | 2018-12-13 09:25 | NUR ---
ERVIN communicated with family member Bere about this Friday 12/15 IDT mtg.
--- NOTE | 2018-12-13 10:10 | NUR ---
Patient seen by Dr. Alvarez, no new orders at this time. Vital signs stable, patient lying down comfortably. Bed at the lowest setting. BMV at bedside.
[2018-12-13 20:08] VITALS: BP 120/63
[2018-12-13] MEDS: MULTIVIT W/MINERALS 1 TAB TABLET GT SCH (20:19)
[2018-12-13] MEDS: SENNOSIDES 8.6 MG TABLET GT SCH (21:14)
[2018-12-13] MEDS: INSULIN GLARGINE, 100 UNIT/ML CARTRIDGE SQ SCH (21:15)
[2018-12-14] MEDS: IPRATROPIUM NEB FS 0.5 MG/2.5 ML AMPUL.NEB NEB SCH ×4 (01:30→20:18)
[2018-12-14] MEDS: ALBUTEROL FS 2.5 MG/3 ML VIAL.NEB NEB SCH ×4 (01:30→20:18)
[2018-12-14] MEDS: POLYVINYL ALCOHOL 15 ML BOTTLE EACHEYE SCH ×4 (05:03→23:36)
[2018-12-14] MEDS: OMEPRAZOLE DR 20 MG GT SCH (05:03)
[2018-12-14] MEDS: GLUCERNA 1.2 1,000 ML BOTTLE GT PRN (05:16)
[2018-12-14] MEDS: INSULIN LISPRO/ASPART 100 UNIT/ML CARTRIDGE SQ PRN ×2 (05:36→17:17)
[2018-12-14] MEDS: BLOOD SUGAR DIAGNOSTIC 1 EACH STRIP IN SCH ×2 (05:36→17:15)
--- NOTE | 2018-12-14 07:27 | NUR ---
Pt received on AC mode and placed on SIMV per MD order. Pt trach is secure. Vent is plugged into a red outlet, alarms are set and audible, and BMV is at bedside. Addendum: 12/14/18 at 0728 by SHABNAM GROSSMAN RT Amended: Links added.
[2018-12-14 08:00] VITALS: BP 110/72
[2018-12-14] MEDS: FERROUS SULFATE - FOR SA ONLY 330 MG/7.5 ML UDC GT SCH ×3 (08:30→16:59)
[2018-12-14] MEDS: HYDROGEN PEROXIDE 480 ML BOTTLE TP SCH ×2 (08:30→20:18)
[2018-12-14] MEDS: DOCUSATE SODIUM LIQ 100 MG/10 ML UDC GT SCH ×2 (08:30→16:59)
[2018-12-14] MEDS: LEVETIRACETAM SOL (5 ML) 100 MG/ML UDC GT SCH ×2 (08:30→20:17)
[2018-12-14] MEDS: ASCORBIC ACID 500 MG TABLET GT SCH ×2 (08:30→16:59)
[2018-12-14] MEDS: PROSTAT (PYXIS) 30 ML UDC GT SCH ×2 (08:30→16:59)
[2018-12-14] MEDS: HEPARIN SODIUM, PORCINE 5000 UNITS/1 ML VIAL SQ SCH ×2 (08:30→20:18)
[2018-12-14] MEDS: NYSTATIN/TRIAMCIN CREAM 15 GM TUBE TP SCH ×2 (08:30→20:18)
[2018-12-14] MEDS: BACLOFEN (10 MG) 10 MG TABLET GT SCH ×3 (08:30→16:59)
[2018-12-14] MEDS: POTASSIUM CHLORIDE 20 MEQ POWDER PACKET GT SCH (08:30)
[2018-12-14] MEDS: METFORMIN 850 MG TABLET GT SCH ×2 (08:30→16:59)
[2018-12-14] MEDS: FUNGI NAIL TP SCH ×2 (08:31→20:18)
[2018-12-14] MEDS: Z GUARD REMEDY 4 OZ OINT TP SCH ×2 (08:31→20:18)
[2018-12-14 08:40] LABS: ABG BASE EXCESS 3.2 mmol/L; ABG OXYGEN SATURATION 93.9 % (92.0-98.5); ABG PCO2 51.8 mmHg (35.0-45.0); ABG PH 7.372 (7.350-7.450); ABG PO2 74.7 mmHg (75.0-100.0); AaDO2 78.3 mmHg; COHb 0.7 % (0.5-1.5); MetHb 0.3 % (0.0-1.5); SITE, ABG Right Radial; VENT MODE, BG SIMV 4 500 PS 15 30% +5
--- NOTE | 2018-12-14 08:50 | NUR ---
Pt was placed on SIMV. Relayed ABG result to Dr Alvarez. He ordered to repeat ABG at 2pm to make sure CO2 is not increasing and he will give further orders later.
[2018-12-14 14:10] LABS: ABG BASE EXCESS 4.4 mmol/L; ABG OXYGEN SATURATION 96.2 % (92.0-98.5); ABG PCO2 49.1 mmHg (35.0-45.0); ABG PH 7.404 (7.350-7.450); ABG PO2 85.7 mmHg (75.0-100.0); AaDO2 70.5 mmHg; COHb 0.7 % (0.5-1.5); MetHb 0.5 % (0.0-1.5); SITE, ABG Right Radial; VENT MODE, BG SIMV 4 500 PS 15 30% +5
--- NOTE | 2018-12-14 14:30 | NUR ---
ABG result relayed by RT Gonsalo to Dr Alvarez. He ordered to have pt continue on SIMV and to place her back on AC if she has respiratory distress.
--- NOTE | 2018-12-14 16:35 | NUR ---
Pt is tolerating SIMV mode. Per Dr. Alvarez, pt is to remain on SIMV mode but placed back to previous settings if in distress. Charge nurse and PRODUCTION TECHNICIAN notified. Addendum: 12/14/18 at 1641 by SHABNAM GROSSMAN RT Amended: Links added.
[2018-12-14 20:08] VITALS: BP 120/78
[2018-12-14] MEDS: MULTIVIT W/MINERALS 1 TAB TABLET GT SCH (20:18)
--- NOTE | 2018-12-14 20:39 | NUR ---
PT RCVD TRACH'D ON MECHANICAL VENT WITH CHARTED SETTINGS. HHN TX TUTU WELL. SX DONE. PT TRACH IS PATENT AND SECURE. VENT PLUGGED INTO RED OUTLET. ALARMS ARE ON AND AUDIBLE. AMBU BAG AT BEDSIDE. WILL CONTINUE TO MONITOR. Addendum: 12/14/18 at 2039 by CHAGO HOLMAN RT Amended: Links added.
[2018-12-14] MEDS: SENNOSIDES 8.6 MG TABLET GT SCH (21:11)
[2018-12-14] MEDS: INSULIN GLARGINE, 100 UNIT/ML CARTRIDGE SQ SCH (21:11)
[2018-12-15] MEDS: IPRATROPIUM NEB FS 0.5 MG/2.5 ML AMPUL.NEB NEB SCH ×4 (01:06→20:10)
[2018-12-15] MEDS: ALBUTEROL FS 2.5 MG/3 ML VIAL.NEB NEB SCH ×4 (01:06→20:10)
[2018-12-15] MEDS: POLYVINYL ALCOHOL 15 ML BOTTLE EACHEYE SCH ×4 (05:11→23:09)
[2018-12-15] MEDS: GLUCERNA 1.2 1,000 ML BOTTLE GT PRN (05:12)
[2018-12-15] MEDS: OMEPRAZOLE DR 20 MG GT SCH (05:12)
[2018-12-15] MEDS: INSULIN LISPRO/ASPART 100 UNIT/ML CARTRIDGE SQ PRN ×2 (05:35→18:34)
[2018-12-15] MEDS: BLOOD SUGAR DIAGNOSTIC 1 EACH STRIP IN SCH ×2 (05:35→17:58)
--- NOTE | 2018-12-15 07:44 | NUR ---
INTERDISCIPLINARY PLAN OF CARE CONFERENCE was held today. Resident's family member Bere did not attend it. Dr. Alvarez and the interdisciplinary team discussed the current plan of care in detail. Current orders as well as treatments and medications were reviewed. No new orders.
[2018-12-15 07:53] VITALS: BP 108/70
--- NOTE | 2018-12-15 08:00 | NUR ---
Female trach received on a mechanical vent. Pt trach is secure. Vent is plugged into a red outlet, alarms are set and audible, and BMV is at bedside. Addendum: 12/15/18 at 0801 by SHABNAM GROSSMAN RT Amended: Links added.
[2018-12-15] MEDS: HEPARIN SODIUM, PORCINE 5000 UNITS/1 ML VIAL SQ SCH ×2 (09:00→20:14)
[2018-12-15] MEDS: DOCUSATE SODIUM LIQ 100 MG/10 ML UDC GT SCH ×2 (09:00→17:03)
[2018-12-15] MEDS: FERROUS SULFATE - FOR SA ONLY 330 MG/7.5 ML UDC GT SCH ×3 (09:00→17:03)
[2018-12-15] MEDS: NYSTATIN/TRIAMCIN CREAM 15 GM TUBE TP SCH ×2 (09:00→20:15)
[2018-12-15] MEDS: LEVETIRACETAM SOL (5 ML) 100 MG/ML UDC GT SCH ×2 (09:00→20:14)
[2018-12-15] MEDS: PROSTAT (PYXIS) 30 ML UDC GT SCH ×2 (09:00→17:03)
[2018-12-15] MEDS: BACLOFEN (10 MG) 10 MG TABLET GT SCH ×3 (09:00→17:03)
[2018-12-15] MEDS: HYDROGEN PEROXIDE 480 ML BOTTLE TP SCH ×2 (09:00→20:15)
[2018-12-15] MEDS: POTASSIUM CHLORIDE 20 MEQ POWDER PACKET GT SCH (09:00)
[2018-12-15] MEDS: Z GUARD REMEDY 4 OZ OINT TP SCH ×2 (09:00→20:15)
[2018-12-15] MEDS: ASCORBIC ACID 500 MG TABLET GT SCH ×2 (09:00→17:03)
[2018-12-15] MEDS: METFORMIN 850 MG TABLET GT SCH ×2 (09:00→17:03)
[2018-12-15] MEDS: FUNGI NAIL TP SCH ×2 (09:00→20:15)
--- NOTE | 2018-12-15 19:03 | NUR ---
SEEN AND EXAMINED BY DR. FAUST, NO NEW ORDERS, PATIENT REMAINS CONNECTED TO VENTILATOR, NO RESPIRATORY DISTRESS NOTED.
[2018-12-15] MEDS: MULTIVIT W/MINERALS 1 TAB TABLET GT SCH (20:14)
[2018-12-15 20:54] VITALS: BP 103/54
--- NOTE | 2018-12-15 20:54 | NUR ---
PT RCVD TRACH'D ON MECHANICAL VENT WITH CHARTED SETTINGS. HHN TX TUTU WELL. SX DONE. PT TRACH IS PATENT AND SECURE. VENT PLUGGED INTO RED OUTLET. ALARMS ARE ON AND AUDIBLE. AMBU BAG AT BEDSIDE. WILL CONTINUE TO MONITOR. Addendum: 12/15/18 at 2053 by CHAGO HOLMAN RT Amended: Links added.
[2018-12-15] MEDS: SENNOSIDES 8.6 MG TABLET GT SCH (21:09)
[2018-12-15] MEDS: INSULIN GLARGINE, 100 UNIT/ML CARTRIDGE SQ SCH (21:09)
[2018-12-16] MEDS: IPRATROPIUM NEB FS 0.5 MG/2.5 ML AMPUL.NEB NEB SCH ×4 (01:01→19:01)
[2018-12-16] MEDS: ALBUTEROL FS 2.5 MG/3 ML VIAL.NEB NEB SCH ×4 (01:01→19:01)
[2018-12-16] MEDS: INSULIN LISPRO/ASPART 100 UNIT/ML CARTRIDGE SQ PRN ×2 (05:41→18:15)
[2018-12-16] MEDS: POLYVINYL ALCOHOL 15 ML BOTTLE EACHEYE SCH ×4 (05:41→23:59)
[2018-12-16] MEDS: BLOOD SUGAR DIAGNOSTIC 1 EACH STRIP IN SCH ×2 (05:41→18:11)
[2018-12-16] MEDS: OMEPRAZOLE DR 20 MG GT SCH (05:41)
[2018-12-16] MEDS: GLUCERNA 1.2 1,000 ML BOTTLE GT PRN (05:41)
[2018-12-16] MEDS: FERROUS SULFATE - FOR SA ONLY 330 MG/7.5 ML UDC GT SCH ×3 (08:53→17:04)
[2018-12-16] MEDS: DOCUSATE SODIUM LIQ 100 MG/10 ML UDC GT SCH ×2 (08:53→17:04)
[2018-12-16] MEDS: BACLOFEN (10 MG) 10 MG TABLET GT SCH ×3 (08:54→17:04)
[2018-12-16] MEDS: POTASSIUM CHLORIDE 20 MEQ POWDER PACKET GT SCH (08:54)
[2018-12-16] MEDS: LEVETIRACETAM SOL (5 ML) 100 MG/ML UDC GT SCH ×2 (08:54→20:21)
[2018-12-16] MEDS: METFORMIN 850 MG TABLET GT SCH ×2 (08:54→17:04)
[2018-12-16] MEDS: PROSTAT (PYXIS) 30 ML UDC GT SCH ×2 (08:54→17:04)
[2018-12-16] MEDS: ASCORBIC ACID 500 MG TABLET GT SCH ×2 (08:57→17:04)
[2018-12-16] MEDS: HYDROGEN PEROXIDE 480 ML BOTTLE TP SCH ×2 (09:00→20:21)
[2018-12-16] MEDS: HEPARIN SODIUM, PORCINE 5000 UNITS/1 ML VIAL SQ SCH ×2 (09:00→20:21)
[2018-12-16] MEDS: FUNGI NAIL TP SCH ×2 (09:00→20:21)
[2018-12-16] MEDS: NYSTATIN/TRIAMCIN CREAM 15 GM TUBE TP SCH ×2 (09:00→20:21)
[2018-12-16] MEDS: Z GUARD REMEDY 4 OZ OINT TP SCH ×2 (09:00→20:22)
[2018-12-16 12:48] VITALS: BP 112/67
[2018-12-16 20:02] VITALS: BP 115/73
[2018-12-16] MEDS: MULTIVIT W/MINERALS 1 TAB TABLET GT SCH (20:21)
[2018-12-16] MEDS: SENNOSIDES 8.6 MG TABLET GT SCH (21:18)
[2018-12-16] MEDS: INSULIN GLARGINE, 100 UNIT/ML CARTRIDGE SQ SCH (21:18)
[2018-12-17] MEDS: ALBUTEROL FS 2.5 MG/3 ML VIAL.NEB NEB SCH ×4 (00:55→20:14)
[2018-12-17] MEDS: IPRATROPIUM NEB FS 0.5 MG/2.5 ML AMPUL.NEB NEB SCH ×4 (00:55→20:14)
[2018-12-17] MEDS: GLUCERNA 1.2 1,000 ML BOTTLE GT PRN (04:30)
[2018-12-17] MEDS: POLYVINYL ALCOHOL 15 ML BOTTLE EACHEYE SCH ×3 (05:13→17:36)
[2018-12-17] MEDS: BLOOD SUGAR DIAGNOSTIC 1 EACH STRIP IN SCH ×2 (05:14→18:17)
[2018-12-17] MEDS: OMEPRAZOLE DR 20 MG GT SCH (05:14)
[2018-12-17] MEDS: INSULIN LISPRO/ASPART 100 UNIT/ML CARTRIDGE SQ PRN (05:14)
[2018-12-17 07:40] VITALS: BP 132/77
[2018-12-17] MEDS: ASCORBIC ACID 500 MG TABLET GT SCH ×2 (09:26→17:36)
[2018-12-17] MEDS: PROSTAT (PYXIS) 30 ML UDC GT SCH ×2 (09:26→17:36)
[2018-12-17] MEDS: FERROUS SULFATE - FOR SA ONLY 330 MG/7.5 ML UDC GT SCH ×3 (09:26→17:36)
[2018-12-17] MEDS: HEPARIN SODIUM, PORCINE 5000 UNITS/1 ML VIAL SQ SCH ×2 (09:26→21:59)
[2018-12-17] MEDS: DOCUSATE SODIUM LIQ 100 MG/10 ML UDC GT SCH ×2 (09:26→17:36)
[2018-12-17] MEDS: LEVETIRACETAM SOL (5 ML) 100 MG/ML UDC GT SCH ×2 (09:26→21:58)
[2018-12-17] MEDS: METFORMIN 850 MG TABLET GT SCH ×2 (09:26→17:36)
[2018-12-17] MEDS: NYSTATIN/TRIAMCIN CREAM 15 GM TUBE TP SCH ×2 (09:26→21:59)
[2018-12-17] MEDS: HYDROGEN PEROXIDE 480 ML BOTTLE TP SCH ×2 (09:26→21:59)
[2018-12-17] MEDS: FUNGI NAIL TP SCH ×2 (09:26→21:59)
[2018-12-17] MEDS: POTASSIUM CHLORIDE 20 MEQ POWDER PACKET GT SCH (09:26)
[2018-12-17] MEDS: BACLOFEN (10 MG) 10 MG TABLET GT SCH ×3 (09:26→17:36)
[2018-12-17] MEDS: Z GUARD REMEDY 4 OZ OINT TP SCH ×2 (09:27→21:59)
[2018-12-17 20:01] VITALS: BP 127/77
--- NOTE | 2018-12-17 20:45 | NUR ---
RT NOTE PATIENT RECEIVED TRACHED ON MECHANICAL VENTILATION. VENT PLUGGED TO RED OUTLET. AMBU BAG/BACK UP TRACH @ BEDSIDE. TX GIVEN, NO ADVERSE REACTIONS NOTED. SX DONE, MODERATE THICK WHITE SECRETIONS NOTED. ALARMS ON AND AUDIBLE. WILL MONITOR T/O SHIFT. Addendum: 12/17/18 at 2044 by ABIOLA COMBS RT Amended: Links added.
[2018-12-17] MEDS: MULTIVIT W/MINERALS 1 TAB TABLET GT SCH (21:58)
[2018-12-17] MEDS: SENNOSIDES 8.6 MG TABLET GT SCH (21:59)
[2018-12-17] MEDS: INSULIN GLARGINE, 100 UNIT/ML CARTRIDGE SQ SCH (22:33)
[2018-12-18] MEDS: POLYVINYL ALCOHOL 15 ML BOTTLE EACHEYE SCH ×5 (00:31→23:44)
[2018-12-18] MEDS: IPRATROPIUM NEB FS 0.5 MG/2.5 ML AMPUL.NEB NEB SCH ×4 (01:51→19:25)
[2018-12-18] MEDS: ALBUTEROL FS 2.5 MG/3 ML VIAL.NEB NEB SCH ×4 (01:51→19:25)
[2018-12-18] MEDS: OMEPRAZOLE DR 20 MG GT SCH (06:27)
[2018-12-18] MEDS: BLOOD SUGAR DIAGNOSTIC 1 EACH STRIP IN SCH ×2 (06:27→17:38)
[2018-12-18] MEDS: INSULIN LISPRO/ASPART 100 UNIT/ML CARTRIDGE SQ PRN ×2 (06:27→17:38)
[2018-12-18 08:12] VITALS: BP 94/44
[2018-12-18] MEDS: NYSTATIN/TRIAMCIN CREAM 15 GM TUBE TP SCH ×2 (09:00→20:22)
[2018-12-18] MEDS: FUNGI NAIL TP SCH ×2 (09:00→20:22)
[2018-12-18] MEDS: HYDROGEN PEROXIDE 480 ML BOTTLE TP SCH ×2 (09:00→20:22)
[2018-12-18] MEDS: Z GUARD REMEDY 4 OZ OINT TP SCH ×2 (09:00→20:22)
[2018-12-18] MEDS: DOCUSATE SODIUM LIQ 100 MG/10 ML UDC GT SCH ×2 (09:25→16:55)
[2018-12-18] MEDS: LEVETIRACETAM SOL (5 ML) 100 MG/ML UDC GT SCH ×2 (09:25→20:21)
[2018-12-18] MEDS: METFORMIN 850 MG TABLET GT SCH ×2 (09:25→16:55)
[2018-12-18] MEDS: FERROUS SULFATE - FOR SA ONLY 330 MG/7.5 ML UDC GT SCH ×3 (09:25→16:55)
[2018-12-18] MEDS: BACLOFEN (10 MG) 10 MG TABLET GT SCH ×3 (09:26→16:55)
[2018-12-18] MEDS: POTASSIUM CHLORIDE 20 MEQ POWDER PACKET GT SCH (09:26)
[2018-12-18] MEDS: ASCORBIC ACID 500 MG TABLET GT SCH ×2 (09:26→16:55)
[2018-12-18] MEDS: PROSTAT (PYXIS) 30 ML UDC GT SCH ×2 (09:26→16:55)
[2018-12-18] MEDS: HEPARIN SODIUM, PORCINE 5000 UNITS/1 ML VIAL SQ SCH ×2 (09:27→20:22)
[2018-12-18 19:58] VITALS: BP 127/70
[2018-12-18] MEDS: MULTIVIT W/MINERALS 1 TAB TABLET GT SCH (20:21)
[2018-12-18] MEDS: SENNOSIDES 8.6 MG TABLET GT SCH (21:23)
[2018-12-18] MEDS: INSULIN GLARGINE, 100 UNIT/ML CARTRIDGE SQ SCH (21:24)
[2018-12-19] MEDS: ALBUTEROL FS 2.5 MG/3 ML VIAL.NEB NEB SCH ×4 (00:53→19:37)
[2018-12-19] MEDS: IPRATROPIUM NEB FS 0.5 MG/2.5 ML AMPUL.NEB NEB SCH ×4 (00:53→19:37)
[2018-12-19] MEDS: POLYVINYL ALCOHOL 15 ML BOTTLE EACHEYE SCH ×4 (05:07→23:24)
[2018-12-19] MEDS: OMEPRAZOLE DR 20 MG GT SCH (05:07)
[2018-12-19] MEDS: GLUCERNA 1.2 1,000 ML BOTTLE GT PRN (05:08)
[2018-12-19] MEDS: BLOOD SUGAR DIAGNOSTIC 1 EACH STRIP IN SCH ×2 (05:36→17:46)
[2018-12-19] MEDS: INSULIN LISPRO/ASPART 100 UNIT/ML CARTRIDGE SQ PRN ×2 (05:36→17:47)
[2018-12-19 07:42] VITALS: BP 147/73
--- NOTE | 2018-12-19 07:58 | NUR ---
Female trach pt received unlabored on a mechanical vent. Pt trach is secure. Vent is plugged into a red outlet, alarms are set and audible, and BMV is at bedside. Addendum: 12/19/18 at 0758 by SHABNAM GROSSMAN RT Amended: Links added.
[2018-12-19] MEDS: DOCUSATE SODIUM LIQ 100 MG/10 ML UDC GT SCH ×2 (08:04→16:18)
[2018-12-19] MEDS: METFORMIN 850 MG TABLET GT SCH ×2 (08:04→16:18)
[2018-12-19] MEDS: FERROUS SULFATE - FOR SA ONLY 330 MG/7.5 ML UDC GT SCH ×3 (08:04→16:18)
[2018-12-19] MEDS: LEVETIRACETAM SOL (5 ML) 100 MG/ML UDC GT SCH ×2 (08:04→20:15)
[2018-12-19] MEDS: POTASSIUM CHLORIDE 20 MEQ POWDER PACKET GT SCH (08:05)
[2018-12-19] MEDS: BACLOFEN (10 MG) 10 MG TABLET GT SCH ×3 (08:05→16:18)
[2018-12-19] MEDS: PROSTAT (PYXIS) 30 ML UDC GT SCH ×2 (08:05→16:18)
[2018-12-19] MEDS: ASCORBIC ACID 500 MG TABLET GT SCH ×2 (08:05→16:18)
[2018-12-19] MEDS: HEPARIN SODIUM, PORCINE 5000 UNITS/1 ML VIAL SQ SCH ×2 (08:05→20:16)
[2018-12-19] MEDS: Z GUARD REMEDY 4 OZ OINT TP SCH ×2 (09:00→20:18)
[2018-12-19] MEDS: FUNGI NAIL TP SCH ×2 (09:00→20:17)
[2018-12-19] MEDS: NYSTATIN/TRIAMCIN CREAM 15 GM TUBE TP SCH ×2 (09:00→20:16)
[2018-12-19] MEDS: HYDROGEN PEROXIDE 480 ML BOTTLE TP SCH ×2 (09:00→20:16)
[2018-12-19 11:06] LABS: ABG BASE EXCESS 5.8 mmol/L; ABG PCO2 58.9 mmHg (35.0-45.0); ABG PH 7.364 (7.350-7.450); ABG PO2 99.4 mmHg (75.0-100.0); AaDO2 30.7 mmHg; COHb 0.5 % (0.5-1.5); MetHb 0.4 % (0.0-1.5); O2Hb 96.1 % (94.0-97.0); SITE, ABG Right Radial; VENT MODE, BG CA 28%
[2018-12-19 15:08] LABS: ABG BASE EXCESS 5.5 mmol/L; ABG OXYGEN SATURATION 96.7 % (92.0-98.5); ABG PCO2 56.7 mmHg (35.0-45.0); ABG PH 7.372 (7.350-7.450); ABG PO2 95.3 mmHg (75.0-100.0); AaDO2 37.4 mmHg; COHb 0.6 % (0.5-1.5); MetHb 0.4 % (0.0-1.5); O2Hb 95.7 % (94.0-97.0); SITE, ABG Right Radial; VENT MODE, BG CA 28%
--- NOTE | 2018-12-19 16:05 | NUR ---
Pt tolerating cool aerosol well. Relayed ABG results to Dr Alvarez. He ordered to keep pt on cool aerosol during the day and on CPAP PS 15 PEEP +5 FiO2 30% at night. Notified pt's sister.
[2018-12-19] MEDS: MULTIVIT W/MINERALS 1 TAB TABLET GT SCH (20:15)
[2018-12-19 20:44] VITALS: BP 118/71
[2018-12-19] MEDS: INSULIN GLARGINE, 100 UNIT/ML CARTRIDGE SQ SCH (21:29)
[2018-12-19] MEDS: SENNOSIDES 8.6 MG TABLET GT SCH (21:29)
[2018-12-20] MEDS: ALBUTEROL FS 2.5 MG/3 ML VIAL.NEB NEB SCH ×4 (02:09→20:02)
[2018-12-20] MEDS: IPRATROPIUM NEB FS 0.5 MG/2.5 ML AMPUL.NEB NEB SCH ×4 (02:09→20:02)
[2018-12-20] MEDS: POLYVINYL ALCOHOL 15 ML BOTTLE EACHEYE SCH ×4 (05:12→23:42)
[2018-12-20] MEDS: OMEPRAZOLE DR 20 MG GT SCH (05:12)
[2018-12-20] MEDS: GLUCERNA 1.2 1,000 ML BOTTLE GT PRN (05:13)
[2018-12-20] MEDS: BLOOD SUGAR DIAGNOSTIC 1 EACH STRIP IN SCH ×2 (05:48→17:11)
[2018-12-20] MEDS: INSULIN LISPRO/ASPART 100 UNIT/ML CARTRIDGE SQ PRN ×2 (05:48→17:11)
[2018-12-20 08:09] VITALS: BP 118/90
[2018-12-20] MEDS: ASCORBIC ACID 500 MG TABLET GT SCH ×2 (08:18→16:45)
[2018-12-20] MEDS: POTASSIUM CHLORIDE 20 MEQ POWDER PACKET GT SCH (08:18)
[2018-12-20] MEDS: METFORMIN 850 MG TABLET GT SCH ×2 (08:18→16:45)
[2018-12-20] MEDS: BACLOFEN (10 MG) 10 MG TABLET GT SCH ×3 (08:18→16:45)
[2018-12-20] MEDS: HEPARIN SODIUM, PORCINE 5000 UNITS/1 ML VIAL SQ SCH ×2 (08:18→20:09)
[2018-12-20] MEDS: DOCUSATE SODIUM LIQ 100 MG/10 ML UDC GT SCH ×2 (08:18→16:45)
[2018-12-20] MEDS: FERROUS SULFATE - FOR SA ONLY 330 MG/7.5 ML UDC GT SCH ×3 (08:18→16:45)
[2018-12-20] MEDS: PROSTAT (PYXIS) 30 ML UDC GT SCH ×2 (08:18→16:45)
[2018-12-20] MEDS: LEVETIRACETAM SOL (5 ML) 100 MG/ML UDC GT SCH ×2 (08:18→20:08)
[2018-12-20] MEDS: HYDROGEN PEROXIDE 480 ML BOTTLE TP SCH ×2 (08:18→20:09)
[2018-12-20] MEDS: FUNGI NAIL TP SCH ×2 (08:19→20:09)
[2018-12-20] MEDS: NYSTATIN/TRIAMCIN CREAM 15 GM TUBE TP SCH ×2 (08:19→20:09)
[2018-12-20] MEDS: Z GUARD REMEDY 4 OZ OINT TP SCH ×2 (08:19→20:09)
[2018-12-20 20:00] VITALS: BP 121/79
--- NOTE | 2018-12-20 20:02 | NUR ---
RT NOTE: RECEIVED TRACH PT ON COOL AEROSOL. PLACE PT BACK ON [facility] VENT ON NOTED SETTINGS PER MD ORDERS. TRACH IS PATENT AND SECURED. HR ASSISTANT DONE. Q6 BREATHING TX GIVEN WITH NO ADVERSE REACTION NOTED. SX DONE PRN. VENT PLUGGED INTO RED OUTLET. ALARMS ON AND AUDIBLE. AMBU BAG @ BEDSIDE. NO RESP DISTRESS AT THIS TIME. WILL CONT TO MONITOR PT. Addendum: 12/21/18 at 0422 by SHE BYRNE RT Amended: Links added.
[2018-12-20] MEDS: MULTIVIT W/MINERALS 1 TAB TABLET GT SCH (20:08)
[2018-12-20] MEDS: SENNOSIDES 8.6 MG TABLET GT SCH (21:10)
[2018-12-20] MEDS: INSULIN GLARGINE, 100 UNIT/ML CARTRIDGE SQ SCH (21:11)
[2018-12-21] MEDS: IPRATROPIUM NEB FS 0.5 MG/2.5 ML AMPUL.NEB NEB SCH ×4 (01:41→19:47)
[2018-12-21] MEDS: ALBUTEROL FS 2.5 MG/3 ML VIAL.NEB NEB SCH ×4 (01:41→19:47)
[2018-12-21] MEDS: POLYVINYL ALCOHOL 15 ML BOTTLE EACHEYE SCH ×3 (05:01→18:15)
[2018-12-21] MEDS: OMEPRAZOLE DR 20 MG GT SCH (05:01)
[2018-12-21] MEDS: GLUCERNA 1.2 1,000 ML BOTTLE GT PRN (05:01)
[2018-12-21] MEDS: BLOOD SUGAR DIAGNOSTIC 1 EACH STRIP IN SCH ×2 (05:43→18:15)
[2018-12-21] MEDS: INSULIN LISPRO/ASPART 100 UNIT/ML CARTRIDGE SQ PRN ×2 (05:44→18:15)
[2018-12-21 07:43] VITALS: BP 117/73
[2018-12-21] MEDS: METFORMIN 850 MG TABLET GT SCH ×2 (09:01→17:00)
[2018-12-21] MEDS: DOCUSATE SODIUM LIQ 100 MG/10 ML UDC GT SCH ×2 (09:01→17:00)
[2018-12-21] MEDS: FERROUS SULFATE - FOR SA ONLY 330 MG/7.5 ML UDC GT SCH ×3 (09:01→17:00)
[2018-12-21] MEDS: LEVETIRACETAM SOL (5 ML) 100 MG/ML UDC GT SCH ×2 (09:01→21:00)
[2018-12-21] MEDS: POTASSIUM CHLORIDE 20 MEQ POWDER PACKET GT SCH (09:02)
[2018-12-21] MEDS: BACLOFEN (10 MG) 10 MG TABLET GT SCH ×3 (09:02→17:00)
[2018-12-21] MEDS: PROSTAT (PYXIS) 30 ML UDC GT SCH ×2 (09:02→17:00)
[2018-12-21] MEDS: HEPARIN SODIUM, PORCINE 5000 UNITS/1 ML VIAL SQ SCH ×2 (09:02→21:00)
[2018-12-21] MEDS: HYDROGEN PEROXIDE 480 ML BOTTLE TP SCH ×2 (09:02→21:00)
[2018-12-21] MEDS: ASCORBIC ACID 500 MG TABLET GT SCH ×2 (09:02→17:00)
[2018-12-21] MEDS: FUNGI NAIL TP SCH ×2 (09:03→21:00)
[2018-12-21] MEDS: NYSTATIN/TRIAMCIN CREAM 15 GM TUBE TP SCH (09:03)
[2018-12-21] MEDS: Z GUARD REMEDY 4 OZ OINT TP SCH ×2 (09:03→21:00)
[2018-12-21 20:29] VITALS: BP 93/61
[2018-12-21] MEDS: MULTIVIT W/MINERALS 1 TAB TABLET GT SCH (21:00)
[2018-12-21] MEDS: SENNOSIDES 8.6 MG TABLET GT SCH (22:11)
[2018-12-21] MEDS: INSULIN GLARGINE, 100 UNIT/ML CARTRIDGE SQ SCH (22:12)
[2018-12-22] MEDS: POLYVINYL ALCOHOL 15 ML BOTTLE EACHEYE SCH ×5 (00:48→23:21)
[2018-12-22] MEDS: ALBUTEROL FS 2.5 MG/3 ML VIAL.NEB NEB SCH ×4 (01:50→20:03)
[2018-12-22] MEDS: IPRATROPIUM NEB FS 0.5 MG/2.5 ML AMPUL.NEB NEB SCH ×4 (01:50→20:03)
[2018-12-22] MEDS: GLUCERNA 1.2 1,000 ML BOTTLE GT PRN (05:00)
[2018-12-22] MEDS: OMEPRAZOLE DR 20 MG GT SCH (06:10)
[2018-12-22] MEDS: BLOOD SUGAR DIAGNOSTIC 1 EACH STRIP IN SCH ×2 (06:10→18:14)
[2018-12-22] MEDS: INSULIN LISPRO/ASPART 100 UNIT/ML CARTRIDGE SQ PRN ×2 (06:11→18:13)
[2018-12-22 07:51] VITALS: BP 101/71
[2018-12-22] MEDS: METFORMIN 850 MG TABLET GT SCH ×2 (09:34→17:00)
[2018-12-22] MEDS: LEVETIRACETAM SOL (5 ML) 100 MG/ML UDC GT SCH ×2 (09:34→20:17)
[2018-12-22] MEDS: POTASSIUM CHLORIDE 20 MEQ POWDER PACKET GT SCH (09:34)
[2018-12-22] MEDS: ASCORBIC ACID 500 MG TABLET GT SCH ×2 (09:34→17:00)
[2018-12-22] MEDS: BACLOFEN (10 MG) 10 MG TABLET GT SCH ×3 (09:34→17:00)
[2018-12-22] MEDS: HEPARIN SODIUM, PORCINE 5000 UNITS/1 ML VIAL SQ SCH ×2 (09:34→20:21)
[2018-12-22] MEDS: FERROUS SULFATE - FOR SA ONLY 330 MG/7.5 ML UDC GT SCH ×3 (09:34→17:00)
[2018-12-22] MEDS: DOCUSATE SODIUM LIQ 100 MG/10 ML UDC GT SCH ×2 (09:34→17:00)
[2018-12-22] MEDS: PROSTAT (PYXIS) 30 ML UDC GT SCH ×2 (09:34→17:00)
[2018-12-22] MEDS: HYDROGEN PEROXIDE 480 ML BOTTLE TP SCH ×2 (09:34→20:17)
[2018-12-22] MEDS: Z GUARD REMEDY 4 OZ OINT TP SCH ×2 (09:35→20:18)
--- NOTE | 2018-12-22 16:36 | NUR ---
Pt placed back onto vent at 0927 due to increased WOB and increased RR. The charge nurse is aware and Dr. Alvarez was notified. Pt tolerated the mechanical vent in CPAP well throughout the rest of the shift. Per Dr. Alvarez: Pt is to remain on mechanical vent (CPAP mode) tonight and placed back on CA tomorrow morning. If pt fails, pt is to be placed back onto the mechanical vent CPAP mode.
[2018-12-22] MEDS: MULTIVIT W/MINERALS 1 TAB TABLET GT SCH (20:20)
[2018-12-22 20:27] VITALS: BP 122/78
--- NOTE | 2018-12-22 20:34 | NUR ---
RT NOTE PT RCVD TRACH'D ON MECHANICAL VENT WITH CHARTED SETTINGS. PT TUTU TX WELL. SX DONE. PT TRACH IS PATENT AND SECURE. VENT IS PLUGGED INTO RED OUTLET. ALARMS ARE ON AND AUDIBLE. AMBU BAG AT BEDSIDE. WILL CONTINUE TO MONITOR. Addendum: 12/22/18 at 2033 by CHAGO HOLMAN RT Amended: Links added.
[2018-12-22] MEDS: SENNOSIDES 8.6 MG TABLET GT SCH (21:04)
[2018-12-22] MEDS: INSULIN GLARGINE, 100 UNIT/ML CARTRIDGE SQ SCH (21:31)
--- NOTE | 2018-12-22 22:45 | NUR ---
SUBACUTE RN NOTE: PATIENT BLOOD SUGAR LEVEL 134MG/DL, PATIENT TO RECEIVE LANTUS 18 UNITS, NO S/S OF HYPER/HYPOGLYCEMIA NOTED. WILL CONTINUE TO MONITOR.
[2018-12-23] MEDS: IPRATROPIUM NEB FS 0.5 MG/2.5 ML AMPUL.NEB NEB SCH ×4 (01:16→19:52)
[2018-12-23] MEDS: ALBUTEROL FS 2.5 MG/3 ML VIAL.NEB NEB SCH ×4 (01:16→19:52)
[2018-12-23] MEDS: POLYVINYL ALCOHOL 15 ML BOTTLE EACHEYE SCH ×3 (05:06→17:09)
[2018-12-23] MEDS: OMEPRAZOLE DR 20 MG GT SCH (05:07)
[2018-12-23] MEDS: BLOOD SUGAR DIAGNOSTIC 1 EACH STRIP IN SCH ×2 (05:07→17:09)
[2018-12-23] MEDS: GLUCERNA 1.2 1,000 ML BOTTLE GT PRN (06:22)
[2018-12-23 08:07] VITALS: BP 98/63
[2018-12-23] MEDS: Z GUARD REMEDY 4 OZ OINT TP SCH ×2 (09:00→21:37)
[2018-12-23] MEDS: HYDROGEN PEROXIDE 480 ML BOTTLE TP SCH ×2 (09:00→21:37)
--- NOTE | 2018-12-23 09:16 | NUR ---
PT BEGIN WEANING TRIAL ON COOL AEROSOL AT 8:50, BP 111/71, HR 100 BPM, RR 16 BPM, SPO2 97% ON 40% FIO2. PT IS STABLE NO RESPIRATORY DISTRESS NOTED AFTER 30 MINUTES. WILL CONTINUE MONITOR THE PATIENT CLOSELY.
[2018-12-23] MEDS: FERROUS SULFATE - FOR SA ONLY 330 MG/7.5 ML UDC GT SCH ×3 (09:24→16:47)
[2018-12-23] MEDS: DOCUSATE SODIUM LIQ 100 MG/10 ML UDC GT SCH ×2 (09:24→16:47)
[2018-12-23] MEDS: ASCORBIC ACID 500 MG TABLET GT SCH ×2 (09:26→16:47)
[2018-12-23] MEDS: PROSTAT (PYXIS) 30 ML UDC GT SCH ×2 (09:26→16:47)
[2018-12-23] MEDS: LEVETIRACETAM SOL (5 ML) 100 MG/ML UDC GT SCH ×2 (09:26→21:36)
[2018-12-23] MEDS: POTASSIUM CHLORIDE 20 MEQ POWDER PACKET GT SCH (09:26)
[2018-12-23] MEDS: METFORMIN 850 MG TABLET GT SCH ×2 (09:26→16:47)
[2018-12-23] MEDS: BACLOFEN (10 MG) 10 MG TABLET GT SCH ×3 (09:26→16:47)
[2018-12-23] MEDS: HEPARIN SODIUM, PORCINE 5000 UNITS/1 ML VIAL SQ SCH ×2 (09:29→21:37)
--- NOTE | 2018-12-23 10:35 | NUR ---
Seen and examined by Dr. Dsouza, no new order given.
[2018-12-23] MEDS: INSULIN LISPRO/ASPART 100 UNIT/ML CARTRIDGE SQ PRN (17:13)
[2018-12-23 19:40] VITALS: BP 109/64
[2018-12-23] MEDS: MULTIVIT W/MINERALS 1 TAB TABLET GT SCH (21:36)
[2018-12-23] MEDS: SENNOSIDES 8.6 MG TABLET GT SCH (21:37)
[2018-12-23] MEDS: INSULIN GLARGINE, 100 UNIT/ML CARTRIDGE SQ SCH (22:35)
[2018-12-24] MEDS: POLYVINYL ALCOHOL 15 ML BOTTLE EACHEYE SCH ×4 (00:16→17:31)
[2018-12-24] MEDS: ALBUTEROL FS 2.5 MG/3 ML VIAL.NEB NEB SCH ×4 (02:22→20:13)
[2018-12-24] MEDS: IPRATROPIUM NEB FS 0.5 MG/2.5 ML AMPUL.NEB NEB SCH ×4 (02:22→20:13)
[2018-12-24] MEDS: GLUCERNA 1.2 1,000 ML BOTTLE GT PRN ×2 (04:23→04:25)
[2018-12-24] MEDS: OMEPRAZOLE DR 20 MG GT SCH (05:24)
[2018-12-24] MEDS: BLOOD SUGAR DIAGNOSTIC 1 EACH STRIP IN SCH ×2 (05:24→17:31)
[2018-12-24] MEDS: INSULIN LISPRO/ASPART 100 UNIT/ML CARTRIDGE SQ PRN (05:24)
[2018-12-24 07:29] VITALS: BP 103/63
--- NOTE | 2018-12-24 09:07 | NUR ---
pt rec'd trached on [facility] vent on cpap mode per md orders. pt placed on cool aerosol per md orders. no resp distress or sob noted.. pt stable at this time. trach patent and secured. will continue to monitor closely. Addendum: 12/24/18 at 0909 by PETER MARADIAGA RT Amended: Links added.
[2018-12-24] MEDS: LEVETIRACETAM SOL (5 ML) 100 MG/ML UDC GT SCH ×2 (09:32→20:02)
[2018-12-24] MEDS: DOCUSATE SODIUM LIQ 100 MG/10 ML UDC GT SCH ×2 (09:32→16:56)
[2018-12-24] MEDS: METFORMIN 850 MG TABLET GT SCH ×2 (09:32→16:56)
[2018-12-24] MEDS: FERROUS SULFATE - FOR SA ONLY 330 MG/7.5 ML UDC GT SCH ×3 (09:32→16:56)
[2018-12-24] MEDS: ASCORBIC ACID 500 MG TABLET GT SCH ×2 (09:33→16:56)
[2018-12-24] MEDS: BACLOFEN (10 MG) 10 MG TABLET GT SCH ×3 (09:33→16:56)
[2018-12-24] MEDS: Z GUARD REMEDY 4 OZ OINT TP SCH ×2 (09:33→20:04)
[2018-12-24] MEDS: HEPARIN SODIUM, PORCINE 5000 UNITS/1 ML VIAL SQ SCH ×2 (09:33→20:03)
[2018-12-24] MEDS: PROSTAT (PYXIS) 30 ML UDC GT SCH ×2 (09:33→16:56)
[2018-12-24] MEDS: POTASSIUM CHLORIDE 20 MEQ POWDER PACKET GT SCH (09:33)
[2018-12-24] MEDS: HYDROGEN PEROXIDE 480 ML BOTTLE TP SCH ×2 (09:33→20:04)
--- NOTE | 2018-12-24 13:55 | NUR ---
Spoke to Dr. Dsouza regarding medication, d/c previous orders lantus 18 units sq at bedtime, new order basaglar kiwipen u 100, 100 units/1 ml, inject 18 units sq at bedtime, order faxed to pharmacy, order carried out, responsible republican made aware.
--- NOTE | 2018-12-24 16:05 | NUR ---
PT SHOWED TACHYCARDIA, TACHYPNEA, DIAPHORESIS, AND INCREASED WOB. PT PLACED ON [facility] VENT ON CPAP MODE SETTINGS. WILL CONTINUE TO MONITOR CLOSELY. Addendum: 12/24/18 at 1609 by PETER MARADIAGA RT Amended: Links added.
[2018-12-24 19:43] VITALS: BP 105/60
--- NOTE | 2018-12-24 20:13 | NUR ---
RT NOTE: RECEIVED TRACH PT ON [facility] VENT ON NOTED SETTINGS PER MD ORDERS. TRACH IS PATENT AND SECURED. WATER TECHNICIAN DONE. Q6 BREATHING TX GIVEN WITH NO ADVERSE REACTION NOTED. SX DONE PRN. VENT PLUGGED INTO RED OUTLET. ALARMS ON AND AUDIBLE. ERIC BAG @ BEDSIDE. NO RESP DISTRESS AT THIS TIME. WILL CONT TO MONITOR PT. Addendum: 12/25/18 at 0239 by SHE BYRNE RT Amended: Links added.
[2018-12-24] MEDS: SENNOSIDES 8.6 MG TABLET GT SCH (21:06)
[2018-12-24] MEDS: MULTIVIT W/MINERALS 1 TAB TABLET GT SCH (21:06)
[2018-12-24] MEDS: BASAGLAR SQ SCH (21:10)
[2018-12-24] MEDS: [UNRECOGNIZED DRUG - OTHER] SQ SCH (21:10)
[2018-12-25] MEDS: POLYVINYL ALCOHOL 15 ML BOTTLE EACHEYE SCH ×4 (00:03→18:07)
[2018-12-25] MEDS: IPRATROPIUM NEB FS 0.5 MG/2.5 ML AMPUL.NEB NEB SCH ×4 (01:49→19:23)
[2018-12-25] MEDS: ALBUTEROL FS 2.5 MG/3 ML VIAL.NEB NEB SCH ×4 (01:50→19:24)
[2018-12-25] MEDS: GLUCERNA 1.2 1,000 ML BOTTLE GT PRN (04:36)
[2018-12-25] MEDS: OMEPRAZOLE DR 20 MG GT SCH (05:19)
[2018-12-25] MEDS: BLOOD SUGAR DIAGNOSTIC 1 EACH STRIP IN SCH ×2 (05:19→18:07)
[2018-12-25] MEDS: INSULIN LISPRO/ASPART 100 UNIT/ML CARTRIDGE SQ PRN ×2 (05:20→18:08)
--- NOTE | 2018-12-25 08:01 | NUR ---
Pt placed on CA per MD order. Addendum: 12/25/18 at 0848 by SHABNAM GROSSMAN RT Amended: Links added.
--- NOTE | 2018-12-25 08:45 | NUR ---
Pt placed back onto mechanical vent due to increased WOB and increased accessory ms use. ASHKAN and Dr. Alvarez notified. Addendum: 12/25/18 at 0847 by SHABNAM GROSSMAN RT Amended: Links added.
[2018-12-25] MEDS: BACLOFEN (10 MG) 10 MG TABLET GT SCH ×3 (08:52→16:43)
[2018-12-25] MEDS: ASCORBIC ACID 500 MG TABLET GT SCH ×2 (08:52→16:43)
[2018-12-25] MEDS: METFORMIN 850 MG TABLET GT SCH ×2 (08:52→16:43)
[2018-12-25] MEDS: LEVETIRACETAM SOL (5 ML) 100 MG/ML UDC GT SCH ×2 (08:52→20:05)
[2018-12-25] MEDS: POTASSIUM CHLORIDE 20 MEQ POWDER PACKET GT SCH (08:52)
[2018-12-25] MEDS: DOCUSATE SODIUM LIQ 100 MG/10 ML UDC GT SCH ×2 (08:52→16:43)
[2018-12-25] MEDS: FERROUS SULFATE - FOR SA ONLY 330 MG/7.5 ML UDC GT SCH ×3 (08:52→16:43)
[2018-12-25] MEDS: PROSTAT (PYXIS) 30 ML UDC GT SCH ×2 (08:52→16:43)
[2018-12-25] MEDS: Z GUARD REMEDY 4 OZ OINT TP SCH ×2 (08:54→20:07)
[2018-12-25] MEDS: HYDROGEN PEROXIDE 480 ML BOTTLE TP SCH ×2 (08:54→20:07)
[2018-12-25] MEDS: HEPARIN SODIUM, PORCINE 5000 UNITS/1 ML VIAL SQ SCH ×2 (08:54→20:07)
[2018-12-25 11:48] VITALS: BP 102/66
[2018-12-25 19:48] VITALS: BP 109/72
[2018-12-25] MEDS: MULTIVIT W/MINERALS 1 TAB TABLET GT SCH (20:05)
[2018-12-25] MEDS: SENNOSIDES 8.6 MG TABLET GT SCH (21:17)
[2018-12-25] MEDS: [UNRECOGNIZED DRUG - OTHER] SQ SCH (21:18)
[2018-12-25] MEDS: BASAGLAR SQ SCH (21:18)
[2018-12-26] MEDS: POLYVINYL ALCOHOL 15 ML BOTTLE EACHEYE SCH ×4 (00:26→18:15)
[2018-12-26] MEDS: IPRATROPIUM NEB FS 0.5 MG/2.5 ML AMPUL.NEB NEB SCH ×4 (00:41→19:28)
[2018-12-26] MEDS: ALBUTEROL FS 2.5 MG/3 ML VIAL.NEB NEB SCH ×4 (00:41→19:28)
[2018-12-26] MEDS: INSULIN LISPRO/ASPART 100 UNIT/ML CARTRIDGE SQ PRN ×2 (05:01→18:19)
[2018-12-26] MEDS: OMEPRAZOLE DR 20 MG GT SCH (05:01)
[2018-12-26] MEDS: BLOOD SUGAR DIAGNOSTIC 1 EACH STRIP IN SCH ×2 (05:01→18:18)
[2018-12-26] MEDS: GLUCERNA 1.2 1,000 ML BOTTLE GT PRN (05:23)
[2018-12-26 07:56] VITALS: BP 108/71
[2018-12-26] MEDS: BACLOFEN (10 MG) 10 MG TABLET GT SCH ×3 (09:12→17:00)
[2018-12-26] MEDS: PROSTAT (PYXIS) 30 ML UDC GT SCH ×2 (09:12→17:00)
[2018-12-26] MEDS: DOCUSATE SODIUM LIQ 100 MG/10 ML UDC GT SCH ×2 (09:12→17:00)
[2018-12-26] MEDS: LEVETIRACETAM SOL (5 ML) 100 MG/ML UDC GT SCH ×2 (09:12→20:05)
[2018-12-26] MEDS: FERROUS SULFATE - FOR SA ONLY 330 MG/7.5 ML UDC GT SCH ×3 (09:12→17:00)
[2018-12-26] MEDS: POTASSIUM CHLORIDE 20 MEQ POWDER PACKET GT SCH (09:12)
[2018-12-26] MEDS: METFORMIN 850 MG TABLET GT SCH ×2 (09:12→17:00)
[2018-12-26] MEDS: ASCORBIC ACID 500 MG TABLET GT SCH ×2 (09:12→17:00)
[2018-12-26] MEDS: HEPARIN SODIUM, PORCINE 5000 UNITS/1 ML VIAL SQ SCH ×2 (09:13→20:09)
[2018-12-26] MEDS: HYDROGEN PEROXIDE 480 ML BOTTLE TP SCH ×2 (09:13→20:10)
[2018-12-26] MEDS: Z GUARD REMEDY 4 OZ OINT TP SCH ×2 (09:13→20:10)
--- NOTE | 2018-12-26 11:15 | NUR ---
Seen by Dr Alvarez this morning. He is aware that pt has been on CPAP since pt unable to tolerate cool aerosol. Dr Alvarez ordered to DC cool aerosol.
[2018-12-26] MEDS: MULTIVIT W/MINERALS 1 TAB TABLET GT SCH (20:05)
[2018-12-26 20:49] VITALS: BP 127/84
[2018-12-26] MEDS: SENNOSIDES 8.6 MG TABLET GT SCH (21:17)
[2018-12-26] MEDS: BASAGLAR SQ SCH (21:18)
[2018-12-26] MEDS: [UNRECOGNIZED DRUG - OTHER] SQ SCH (21:18)
[2018-12-27] MEDS: POLYVINYL ALCOHOL 15 ML BOTTLE EACHEYE SCH ×5 (00:26→23:36)
[2018-12-27] MEDS: ALBUTEROL FS 2.5 MG/3 ML VIAL.NEB NEB SCH ×4 (01:31→20:12)
[2018-12-27] MEDS: IPRATROPIUM NEB FS 0.5 MG/2.5 ML AMPUL.NEB NEB SCH ×4 (01:31→20:12)
[2018-12-27] MEDS: GLUCERNA 1.2 1,000 ML BOTTLE GT PRN (04:37)
[2018-12-27] MEDS: BLOOD SUGAR DIAGNOSTIC 1 EACH STRIP IN SCH ×2 (05:11→17:34)
[2018-12-27] MEDS: OMEPRAZOLE DR 20 MG GT SCH (05:11)
[2018-12-27] MEDS: INSULIN LISPRO/ASPART 100 UNIT/ML CARTRIDGE SQ PRN ×2 (05:12→17:36)
[2018-12-27 08:01] VITALS: BP 121/79
[2018-12-27] MEDS: HYDROGEN PEROXIDE 480 ML BOTTLE TP SCH ×2 (09:00→20:14)
[2018-12-27] MEDS: Z GUARD REMEDY 4 OZ OINT TP SCH ×2 (09:00→20:14)
[2018-12-27] MEDS: FERROUS SULFATE - FOR SA ONLY 330 MG/7.5 ML UDC GT SCH ×3 (09:26→16:19)
[2018-12-27] MEDS: METFORMIN 850 MG TABLET GT SCH ×2 (09:26→16:18)
[2018-12-27] MEDS: DOCUSATE SODIUM LIQ 100 MG/10 ML UDC GT SCH ×2 (09:26→16:18)
[2018-12-27] MEDS: LEVETIRACETAM SOL (5 ML) 100 MG/ML UDC GT SCH ×2 (09:29→20:11)
[2018-12-27] MEDS: PROSTAT (PYXIS) 30 ML UDC GT SCH ×2 (09:29→16:18)
[2018-12-27] MEDS: BACLOFEN (10 MG) 10 MG TABLET GT SCH ×3 (09:29→16:19)
[2018-12-27] MEDS: POTASSIUM CHLORIDE 20 MEQ POWDER PACKET GT SCH (09:29)
[2018-12-27] MEDS: ASCORBIC ACID 500 MG TABLET GT SCH ×2 (09:29→16:18)
[2018-12-27] MEDS: HEPARIN SODIUM, PORCINE 5000 UNITS/1 ML VIAL SQ SCH ×2 (09:31→20:13)
[2018-12-27 20:10] VITALS: BP 99/66
[2018-12-27] MEDS: MULTIVIT W/MINERALS 1 TAB TABLET GT SCH (20:12)
--- NOTE | 2018-12-27 20:27 | NUR ---
RT NOTE PT RCVD TRACH'D ON MECHANICAL VENT WITH CHARTED SETTINGS. TX TUTU WELL. SX DONE. PT TRACH IS PATENT AND SECURE. VENT IS PLUGGED INTO RED OUTLET. ALARMS ARE ON AND AUDIBLE. AMBU BAG AT BEDSIDE. WILL CONTINUE TO MONITOR. Addendum: 12/27/18 at 2026 by CHAGO HOLMAN RT Amended: Links added.
[2018-12-27] MEDS: SENNOSIDES 8.6 MG TABLET GT SCH (21:46)
[2018-12-27] MEDS: [UNRECOGNIZED DRUG - OTHER] SQ SCH (21:48)
[2018-12-27] MEDS: BASAGLAR SQ SCH (21:48)
[2018-12-28] MEDS: IPRATROPIUM NEB FS 0.5 MG/2.5 ML AMPUL.NEB NEB SCH ×4 (01:25→20:02)
[2018-12-28] MEDS: ALBUTEROL FS 2.5 MG/3 ML VIAL.NEB NEB SCH ×4 (01:25→20:02)
[2018-12-28] MEDS: GLUCERNA 1.2 1,000 ML BOTTLE GT PRN (01:40)
[2018-12-28] MEDS: POLYVINYL ALCOHOL 15 ML BOTTLE EACHEYE SCH ×3 (05:25→18:03)
[2018-12-28] MEDS: OMEPRAZOLE DR 20 MG GT SCH (05:25)
[2018-12-28] MEDS: BLOOD SUGAR DIAGNOSTIC 1 EACH STRIP IN SCH ×2 (05:41→18:03)
[2018-12-28 08:01] VITALS: BP 125/81
--- NOTE | 2018-12-28 08:28 | NUR ---
RT NOTE PT RCVD TRACH'D ON MECHANICAL VENT WITH CHARTED SETTINGS. TX TUTU WELL. SX DONE. PT TRACH IS PATENT AND SECURE. VENT IS PLUGGED INTO RED OUTLET. ALARMS ARE ON AND AUDIBLE. AMBU BAG AT BEDSIDE. WILL CONTINUE TO MONITOR.
[2018-12-28] MEDS: PROSTAT (PYXIS) 30 ML UDC GT SCH ×2 (09:00→16:30)
[2018-12-28] MEDS: FERROUS SULFATE - FOR SA ONLY 330 MG/7.5 ML UDC GT SCH ×3 (09:00→16:30)
[2018-12-28] MEDS: DOCUSATE SODIUM LIQ 100 MG/10 ML UDC GT SCH ×2 (09:00→16:30)
[2018-12-28] MEDS: LEVETIRACETAM SOL (5 ML) 100 MG/ML UDC GT SCH ×2 (09:00→21:40)
[2018-12-28] MEDS: Z GUARD REMEDY 4 OZ OINT TP SCH ×2 (09:00→21:41)
[2018-12-28] MEDS: POTASSIUM CHLORIDE 20 MEQ POWDER PACKET GT SCH (09:00)
[2018-12-28] MEDS: HYDROGEN PEROXIDE 480 ML BOTTLE TP SCH ×2 (09:00→21:41)
[2018-12-28] MEDS: ASCORBIC ACID 500 MG TABLET GT SCH ×2 (09:00→16:30)
[2018-12-28] MEDS: METFORMIN 850 MG TABLET GT SCH ×2 (09:00→16:30)
[2018-12-28] MEDS: BACLOFEN (10 MG) 10 MG TABLET GT SCH ×3 (09:00→16:30)
[2018-12-28] MEDS: HEPARIN SODIUM, PORCINE 5000 UNITS/1 ML VIAL SQ SCH ×2 (09:01→21:41)
[2018-12-28] MEDS: INSULIN LISPRO/ASPART 100 UNIT/ML CARTRIDGE SQ PRN (18:03)
--- NOTE | 2018-12-28 18:52 | NUR ---
Seen by LORENZO Rodgers. Relayed CXR result to her. She said she will ask Dr Alvarez to see the image. No new order at this time.
[2018-12-28 19:56] VITALS: BP 112/69
--- NOTE | 2018-12-28 20:16 | NUR ---
RT NOTE PT RCVD TRACH'D ON MECHANICAL VENT WITH CHARTED SETTINGS. TX TUTU WELL. SX DONE. PT TRACH IS PATENT AND SECURE. VENT IS PLUGGED INTO RED OUTLET. ALARMS ARE ON AND AUDIBLE. AMBU BAG AT BEDSIDE. WILL CONTINUE TO MONITOR. Addendum: 12/28/18 at 2017 by CHAGO HOLMAN RT Amended: Links added.
[2018-12-28] MEDS: MULTIVIT W/MINERALS 1 TAB TABLET GT SCH (21:40)
[2018-12-28] MEDS: SENNOSIDES 8.6 MG TABLET GT SCH (21:41)
[2018-12-28] MEDS: BASAGLAR SQ SCH (21:44)
[2018-12-28] MEDS: [UNRECOGNIZED DRUG - OTHER] SQ SCH (21:44)
[2018-12-29] MEDS: ALBUTEROL FS 2.5 MG/3 ML VIAL.NEB NEB SCH ×4 (00:53→20:11)
[2018-12-29] MEDS: IPRATROPIUM NEB FS 0.5 MG/2.5 ML AMPUL.NEB NEB SCH ×4 (00:53→19:57)
[2018-12-29] MEDS: GLUCERNA 1.2 1,000 ML BOTTLE GT PRN (04:35)
[2018-12-29] MEDS: OMEPRAZOLE DR 20 MG GT SCH (05:42)
[2018-12-29] MEDS: POLYVINYL ALCOHOL 15 ML BOTTLE EACHEYE SCH ×4 (05:42→17:01)
[2018-12-29] MEDS: BLOOD SUGAR DIAGNOSTIC 1 EACH STRIP IN SCH ×2 (05:42→17:53)
[2018-12-29] MEDS: INSULIN LISPRO/ASPART 100 UNIT/ML CARTRIDGE SQ PRN ×2 (05:43→17:53)
--- NOTE | 2018-12-29 07:35 | NUR ---
Trach pt received on a mechanical vent. Pt trach is secure. Vent is plugged into a red outlet, alarms are set and audible, and BMV is at bedside. Addendum: 12/29/18 at 0736 by SHABNAM GROSSMAN RT Amended: Links added.
[2018-12-29 07:56] VITALS: BP 131/86
[2018-12-29] MEDS: METFORMIN 850 MG TABLET GT SCH ×2 (08:04→16:12)
[2018-12-29] MEDS: PROSTAT (PYXIS) 30 ML UDC GT SCH ×2 (08:04→16:12)
[2018-12-29] MEDS: POTASSIUM CHLORIDE 20 MEQ POWDER PACKET GT SCH (08:04)
[2018-12-29] MEDS: ASCORBIC ACID 500 MG TABLET GT SCH ×2 (08:04→16:12)
[2018-12-29] MEDS: LEVETIRACETAM SOL (5 ML) 100 MG/ML UDC GT SCH ×2 (08:04→20:00)
[2018-12-29] MEDS: FERROUS SULFATE - FOR SA ONLY 330 MG/7.5 ML UDC GT SCH ×3 (08:04→16:12)
[2018-12-29] MEDS: BACLOFEN (10 MG) 10 MG TABLET GT SCH ×2 (08:04→12:58)
[2018-12-29] MEDS: DOCUSATE SODIUM LIQ 100 MG/10 ML UDC GT SCH ×2 (08:04→16:12)
[2018-12-29] MEDS: HEPARIN SODIUM, PORCINE 5000 UNITS/1 ML VIAL SQ SCH ×2 (08:05→20:01)
[2018-12-29] MEDS: Z GUARD REMEDY 4 OZ OINT TP SCH ×2 (09:00→20:00)
[2018-12-29] MEDS: HYDROGEN PEROXIDE 480 ML BOTTLE TP SCH ×2 (09:00→20:00)
--- NOTE | 2018-12-29 15:00 | NUR ---
Seen and examined by Dr. Dsouza, no new order given.
[2018-12-29] MEDS: MULTIVIT W/MINERALS 1 TAB TABLET GT SCH (20:00)
[2018-12-29 20:27] VITALS: BP 108/65
[2018-12-29] MEDS: SENNOSIDES 8.6 MG TABLET GT SCH (21:14)
[2018-12-29] MEDS: BASAGLAR SQ SCH (21:37)
[2018-12-29] MEDS: [UNRECOGNIZED DRUG - OTHER] SQ SCH (21:37)
[2018-12-30] MEDS: POLYVINYL ALCOHOL 15 ML BOTTLE EACHEYE SCH ×5 (00:14→23:31)
[2018-12-30] MEDS: GLUCERNA 1.2 1,000 ML BOTTLE GT PRN ×2 (01:29→22:45)
[2018-12-30] MEDS: ALBUTEROL FS 2.5 MG/3 ML VIAL.NEB NEB SCH ×4 (01:47→19:23)
[2018-12-30] MEDS: IPRATROPIUM NEB FS 0.5 MG/2.5 ML AMPUL.NEB NEB SCH ×4 (01:47→19:23)
[2018-12-30] MEDS: OMEPRAZOLE DR 20 MG GT SCH (05:15)
[2018-12-30] MEDS: BLOOD SUGAR DIAGNOSTIC 1 EACH STRIP IN SCH ×2 (05:21→17:16)
[2018-12-30] MEDS: INSULIN LISPRO/ASPART 100 UNIT/ML CARTRIDGE SQ PRN ×2 (05:34→17:16)
[2018-12-30 08:00] VITALS: BP 109/66
[2018-12-30] MEDS: HYDROGEN PEROXIDE 480 ML BOTTLE TP SCH ×2 (09:00→20:42)
[2018-12-30] MEDS: Z GUARD REMEDY 4 OZ OINT TP SCH ×2 (09:00→20:42)
[2018-12-30] MEDS: FERROUS SULFATE - FOR SA ONLY 330 MG/7.5 ML UDC GT SCH ×3 (09:49→16:18)
[2018-12-30] MEDS: DOCUSATE SODIUM LIQ 100 MG/10 ML UDC GT SCH ×2 (09:49→16:18)
[2018-12-30] MEDS: LEVETIRACETAM SOL (5 ML) 100 MG/ML UDC GT SCH ×2 (09:50→20:42)
[2018-12-30] MEDS: METFORMIN 850 MG TABLET GT SCH ×2 (09:50→16:18)
[2018-12-30] MEDS: POTASSIUM CHLORIDE 20 MEQ POWDER PACKET GT SCH (09:52)
[2018-12-30] MEDS: ASCORBIC ACID 500 MG TABLET GT SCH ×2 (09:52→16:19)
[2018-12-30] MEDS: PROSTAT (PYXIS) 30 ML UDC GT SCH ×2 (09:52→16:18)
[2018-12-30] MEDS: HEPARIN SODIUM, PORCINE 5000 UNITS/1 ML VIAL SQ SCH ×2 (09:54→20:56)
[2018-12-30] MEDS: MULTIVIT W/MINERALS 1 TAB TABLET GT SCH (20:41)
[2018-12-30 20:48] VITALS: BP 135/69
[2018-12-30] MEDS: SENNOSIDES 8.6 MG TABLET GT SCH (21:13)
[2018-12-30] MEDS: [UNRECOGNIZED DRUG - OTHER] SQ SCH (21:25)
[2018-12-30] MEDS: BASAGLAR SQ SCH (21:25)
[2018-12-31] MEDS: ALBUTEROL FS 2.5 MG/3 ML VIAL.NEB NEB SCH ×4 (01:30→20:23)
[2018-12-31] MEDS: IPRATROPIUM NEB FS 0.5 MG/2.5 ML AMPUL.NEB NEB SCH ×4 (01:30→20:23)
[2018-12-31] MEDS: ACETAMINOPHEN 650 MG/20 ML UDC- SA PATIENTS-PAIN ONLY GT PRN (01:59)
[2018-12-31] MEDS: BLOOD SUGAR DIAGNOSTIC 1 EACH STRIP IN SCH ×2 (05:48→18:43)
[2018-12-31] MEDS: POLYVINYL ALCOHOL 15 ML BOTTLE EACHEYE SCH ×3 (05:48→17:33)
[2018-12-31] MEDS: OMEPRAZOLE DR 20 MG GT SCH (05:48)
[2018-12-31 07:46] VITALS: BP 102/71
[2018-12-31] MEDS: ASCORBIC ACID 500 MG TABLET GT SCH ×2 (09:00→17:33)
[2018-12-31] MEDS: LEVETIRACETAM SOL (5 ML) 100 MG/ML UDC GT SCH ×2 (09:00→20:09)
[2018-12-31] MEDS: METFORMIN 850 MG TABLET GT SCH ×2 (09:00→17:33)
[2018-12-31] MEDS: FERROUS SULFATE - FOR SA ONLY 330 MG/7.5 ML UDC GT SCH ×3 (09:00→17:33)
[2018-12-31] MEDS: Z GUARD REMEDY 4 OZ OINT TP SCH ×2 (09:00→20:13)
[2018-12-31] MEDS: HEPARIN SODIUM, PORCINE 5000 UNITS/1 ML VIAL SQ SCH ×2 (09:00→20:12)
[2018-12-31] MEDS: DOCUSATE SODIUM LIQ 100 MG/10 ML UDC GT SCH ×2 (09:00→17:33)
[2018-12-31] MEDS: PROSTAT (PYXIS) 30 ML UDC GT SCH ×2 (09:00→17:33)
[2018-12-31] MEDS: POTASSIUM CHLORIDE 20 MEQ POWDER PACKET GT SCH (09:00)
[2018-12-31] MEDS: HYDROGEN PEROXIDE 480 ML BOTTLE TP SCH ×2 (09:00→20:13)
[2018-12-31] MEDS: INSULIN LISPRO/ASPART 100 UNIT/ML CARTRIDGE SQ PRN (18:44)
[2018-12-31 20:00] VITALS: BP 101/64
[2018-12-31] MEDS: MULTIVIT W/MINERALS 1 TAB TABLET GT SCH (20:10)
--- NOTE | 2018-12-31 20:52 | NUR ---
RT NOTE PT RCVD TRACH'D ON MECHANICAL VENT WITH CHARTED SETTINGS. TX TUTU WELL. SX DONE. PT TRACH IS PATENT AND SECURE. VENT IS PLUGGED INTO RED OUTLET. ALARMS ARE ON AND AUDIBLE. AMBU BAG AT BEDSIDE. WILL CONTINUE TO MONITOR. Addendum: 12/31/18 at 2052 by CHAGO HOLMAN RT Amended: Links added.
[2018-12-31] MEDS: GLUCERNA 1.2 1,000 ML BOTTLE GT PRN (21:24)
[2018-12-31] MEDS: SENNOSIDES 8.6 MG TABLET GT SCH (21:27)
[2018-12-31] MEDS: [UNRECOGNIZED DRUG - OTHER] SQ SCH (21:28)
[2018-12-31] MEDS: BASAGLAR SQ SCH (21:28)
[2019-01-01] MEDS: POLYVINYL ALCOHOL 15 ML BOTTLE EACHEYE SCH ×4 (00:03→17:12)
[2019-01-01] MEDS: IPRATROPIUM NEB FS 0.5 MG/2.5 ML AMPUL.NEB NEB SCH ×4 (01:04→20:11)
[2019-01-01] MEDS: ALBUTEROL FS 2.5 MG/3 ML VIAL.NEB NEB SCH ×4 (01:04→20:11)
[2019-01-01] MEDS: OMEPRAZOLE DR 20 MG GT SCH (05:19)
[2019-01-01] MEDS: BLOOD SUGAR DIAGNOSTIC 1 EACH STRIP IN SCH ×2 (05:19→17:23)
[2019-01-01] MEDS: INSULIN LISPRO/ASPART 100 UNIT/ML CARTRIDGE SQ PRN ×2 (05:20→17:24)
[2019-01-01 07:59] VITALS: BP 114/75
[2019-01-01] MEDS: LEVETIRACETAM SOL (5 ML) 100 MG/ML UDC GT SCH ×2 (08:50→20:00)
[2019-01-01] MEDS: ASCORBIC ACID 500 MG TABLET GT SCH ×2 (08:50→17:12)
[2019-01-01] MEDS: DOCUSATE SODIUM LIQ 100 MG/10 ML UDC GT SCH ×2 (08:50→17:12)
[2019-01-01] MEDS: POTASSIUM CHLORIDE 20 MEQ POWDER PACKET GT SCH (08:50)
[2019-01-01] MEDS: METFORMIN 850 MG TABLET GT SCH ×2 (08:50→17:12)
[2019-01-01] MEDS: PROSTAT (PYXIS) 30 ML UDC GT SCH ×2 (08:50→17:12)
[2019-01-01] MEDS: FERROUS SULFATE - FOR SA ONLY 330 MG/7.5 ML UDC GT SCH ×3 (08:50→17:12)
[2019-01-01] MEDS: HYDROGEN PEROXIDE 480 ML BOTTLE TP SCH ×2 (08:51→20:01)
[2019-01-01] MEDS: Z GUARD REMEDY 4 OZ OINT TP SCH ×2 (08:51→20:01)
[2019-01-01] MEDS: HEPARIN SODIUM, PORCINE 5000 UNITS/1 ML VIAL SQ SCH ×2 (08:51→20:01)
--- NOTE | 2019-01-01 12:27 | NUR ---
INNER CANNULA, TRACH TIE AND GAUZE CHANGED BY RT AND RN. NO ADVERSE REACTIONS, NO RESP DISTRESS NOTED.
--- NOTE | 2019-01-01 15:45 | NUR ---
PT PLACED ON AC W/ PRIOR SETTINGS S/P PERIOD OF APNEA ON CPAP. PT OTHERWISE STABLE, NO NOTED RESP DISTRESS. Addendum: 01/01/19 at 1545 by VICTORIA DICKEY RT Amended: Links added.
[2019-01-01] MEDS: MULTIVIT W/MINERALS 1 TAB TABLET GT SCH (20:00)
[2019-01-01 20:29] VITALS: BP 91/69
[2019-01-01] MEDS: GLUCERNA 1.2 1,000 ML BOTTLE GT PRN (21:11)
[2019-01-01] MEDS: BASAGLAR SQ SCH (21:19)
[2019-01-01] MEDS: SENNOSIDES 8.6 MG TABLET GT SCH (21:19)
[2019-01-01] MEDS: [UNRECOGNIZED DRUG - OTHER] SQ SCH (21:19)
[2019-01-02] MEDS: POLYVINYL ALCOHOL 15 ML BOTTLE EACHEYE SCH ×4 (00:14→18:28)
[2019-01-02] MEDS: ALBUTEROL FS 2.5 MG/3 ML VIAL.NEB NEB SCH ×4 (01:57→20:24)
[2019-01-02] MEDS: IPRATROPIUM NEB FS 0.5 MG/2.5 ML AMPUL.NEB NEB SCH ×4 (01:58→20:24)
--- NOTE | 2019-01-02 02:46 | NUR ---
RT KEPT PT ON AC MODE FOR THE NIGHT NO RESP DISTRESS PLACE BACK ON CPAP ON AM PER ORACLE PROGRAMMER
[2019-01-02] MEDS: INSULIN LISPRO/ASPART 100 UNIT/ML CARTRIDGE SQ PRN ×2 (05:04→18:29)
[2019-01-02] MEDS: OMEPRAZOLE DR 20 MG GT SCH (05:04)
[2019-01-02] MEDS: BLOOD SUGAR DIAGNOSTIC 1 EACH STRIP IN SCH ×2 (05:04→18:28)
[2019-01-02 07:38] VITALS: BP 105/69
--- NOTE | 2019-01-02 08:04 | NUR ---
RT PLACED PT ON CPAP MODE PER MD ORDER. RN AWARE AND NOTIFIED. PT SpO2 96-97%. NO RESPIRATORY DISTRESS NOTED AT THIS TIME. SUCTIONED SMALL AMOUNTS OF THINK PALE YELLOW SECRETIONS. WILL CONTINUE TO MONITOR THE PATIENT CLOSELY FOR ANY CHANGES. Addendum: 01/02/19 at 1709 by WING WHITTINGTON RT Amended: Links added.
[2019-01-02] MEDS: Z GUARD REMEDY 4 OZ OINT TP SCH ×2 (09:00→20:05)
[2019-01-02] MEDS: LEVETIRACETAM SOL (5 ML) 100 MG/ML UDC GT SCH ×2 (09:00→20:04)
[2019-01-02] MEDS: METFORMIN 850 MG TABLET GT SCH ×2 (09:00→16:45)
[2019-01-02] MEDS: ASCORBIC ACID 500 MG TABLET GT SCH ×2 (09:00→16:45)
[2019-01-02] MEDS: HEPARIN SODIUM, PORCINE 5000 UNITS/1 ML VIAL SQ SCH ×2 (09:00→20:04)
[2019-01-02] MEDS: HYDROGEN PEROXIDE 480 ML BOTTLE TP SCH ×2 (09:00→20:04)
[2019-01-02] MEDS: FERROUS SULFATE - FOR SA ONLY 330 MG/7.5 ML UDC GT SCH ×3 (09:00→16:45)
[2019-01-02] MEDS: DOCUSATE SODIUM LIQ 100 MG/10 ML UDC GT SCH ×2 (09:00→16:45)
[2019-01-02] MEDS: POTASSIUM CHLORIDE 20 MEQ POWDER PACKET GT SCH (09:00)
[2019-01-02] MEDS: PROSTAT (PYXIS) 30 ML UDC GT SCH ×2 (09:00→16:45)
--- NOTE | 2019-01-02 09:15 | NUR ---
Seen and examined by Dr. Alvarez, impact hammer operator. Informed MD that patient was place on AC mode yesterday and placed back on CPAP mode this morning. NNO given at this time.
--- NOTE | 2019-01-02 10:45 | NUR ---
RT PLACED PT BACK ON AC MODE WITH PREVIOUS SETTINGS DUE TO INCREASE WOB AND LOW SAT. RN NOTIFIED AND AWARE. SUCTIONED PRN. WILL CONTINUE TO MONITOR THE PATIENT CLOSELY.
--- NOTE | 2019-01-02 14:00 | NUR ---
Notified Dr. Alvarez that patient did not tolerate CPAP mode this morning and was placed on SIMV mode by RT, according to RT patient is tolerating SIMV mode however clarified with Dr. Alvarez if he wants patient to stay on SIMV or AC mode, he said to keep patient on AC mode.
[2019-01-02] MEDS: MULTIVIT W/MINERALS 1 TAB TABLET GT SCH (20:04)
[2019-01-02 20:28] VITALS: BP 97/68
[2019-01-02] MEDS: GLUCERNA 1.2 1,000 ML BOTTLE GT PRN (21:05)
[2019-01-02] MEDS: SENNOSIDES 8.6 MG TABLET GT SCH (21:14)
[2019-01-02] MEDS: BASAGLAR SQ SCH (21:15)
[2019-01-02] MEDS: [UNRECOGNIZED DRUG - OTHER] SQ SCH (21:15)
--- NOTE | 2019-01-02 23:58 | NUR ---
RT NOTE PT RCVD TRACH'D ON MECHANICAL VENT WITH CHARTED SETTINGS. TX TUTU WELL. SX DONE. PT TRACH IS PATENT AND SECURE. VENT IS PLUGGED INTO RED OUTLET. ALARMS ARE ON AND AUDIBLE. AMBU BAG AT BEDSIDE. WILL CONTINUE TO MONITOR. Addendum: 01/02/19 at 2358 by CHAGO HOLMAN RT Amended: Links added.
[2019-01-03] MEDS: POLYVINYL ALCOHOL 15 ML BOTTLE EACHEYE SCH ×5 (00:18→23:57)
[2019-01-03] MEDS: ALBUTEROL FS 2.5 MG/3 ML VIAL.NEB NEB SCH ×4 (01:28→20:01)
[2019-01-03] MEDS: IPRATROPIUM NEB FS 0.5 MG/2.5 ML AMPUL.NEB NEB SCH ×4 (01:28→20:01)
[2019-01-03] MEDS: OMEPRAZOLE DR 20 MG GT SCH (05:15)
[2019-01-03] MEDS: BLOOD SUGAR DIAGNOSTIC 1 EACH STRIP IN SCH ×2 (05:15→18:59)
[2019-01-03] MEDS: INSULIN LISPRO/ASPART 100 UNIT/ML CARTRIDGE SQ PRN ×2 (05:16→18:59)
[2019-01-03 07:33] VITALS: BP 99/66
[2019-01-03] MEDS: FERROUS SULFATE - FOR SA ONLY 330 MG/7.5 ML UDC GT SCH ×3 (08:39→17:13)
[2019-01-03] MEDS: DOCUSATE SODIUM LIQ 100 MG/10 ML UDC GT SCH ×2 (08:39→17:13)
[2019-01-03] MEDS: METFORMIN 850 MG TABLET GT SCH ×2 (08:39→17:13)
[2019-01-03] MEDS: LEVETIRACETAM SOL (5 ML) 100 MG/ML UDC GT SCH ×2 (08:40→21:13)
[2019-01-03] MEDS: PROSTAT (PYXIS) 30 ML UDC GT SCH ×2 (08:40→17:13)
[2019-01-03] MEDS: ASCORBIC ACID 500 MG TABLET GT SCH ×2 (08:40→17:13)
[2019-01-03] MEDS: Z GUARD REMEDY 4 OZ OINT TP SCH ×2 (08:42→21:14)
[2019-01-03] MEDS: HEPARIN SODIUM, PORCINE 5000 UNITS/1 ML VIAL SQ SCH ×2 (08:42→21:14)
[2019-01-03] MEDS: HYDROGEN PEROXIDE 480 ML BOTTLE TP SCH ×2 (08:42→21:14)
[2019-01-03] MEDS: POTASSIUM CHLORIDE 20 MEQ POWDER PACKET GT SCH (08:47)
--- NOTE | 2019-01-03 10:45 | NUR ---
Clarified with Dr. Alvarez if weaning trial on CPAP is to continue in the future. He said to DC CPAP and keep patient on assist control with previous setting in the ventilator. RT informed.
--- NOTE | 2019-01-03 15:23 | NUR ---
Seen and examined by Dr. Dsouza, informed MD that patient not able to tolerate weaning trial and therefore she is back on ventilator full support. NNO given at this time.
[2019-01-03] MEDS: GLUCERNA 1.2 1,000 ML BOTTLE GT PRN (17:36)
[2019-01-03 20:06] VITALS: BP 109/69
[2019-01-03] MEDS: MULTIVIT W/MINERALS 1 TAB TABLET GT SCH (21:13)
[2019-01-03] MEDS: SENNOSIDES 8.6 MG TABLET GT SCH (21:14)
[2019-01-03] MEDS: BASAGLAR SQ SCH (21:17)
[2019-01-03] MEDS: [UNRECOGNIZED DRUG - OTHER] SQ SCH (21:17)
--- NOTE | 2019-01-03 21:56 | NUR ---
RT NOTE PT RCVD TRACH'D ON MECHANICAL VENT WITH CHARTED SETTINGS. TX TUTU WELL. SX DONE. PT TRACH IS PATENT AND SECURE. VENT IS PLUGGED INTO RED OUTLET. ALARMS ARE ON AND AUDIBLE. AMBU BAG AT BEDSIDE. WILL CONTINUE TO MONITOR. Addendum: 01/03/19 at 2157 by CHAGO HOLMAN RT Amended: Links added.
[2019-01-04] MEDS: ALBUTEROL FS 2.5 MG/3 ML VIAL.NEB NEB SCH ×4 (00:55→20:39)
[2019-01-04] MEDS: IPRATROPIUM NEB FS 0.5 MG/2.5 ML AMPUL.NEB NEB SCH ×4 (00:55→20:39)
[2019-01-04] MEDS: POLYVINYL ALCOHOL 15 ML BOTTLE EACHEYE SCH ×4 (05:56→23:44)
[2019-01-04] MEDS: OMEPRAZOLE DR 20 MG GT SCH (05:56)
[2019-01-04] MEDS: BLOOD SUGAR DIAGNOSTIC 1 EACH STRIP IN SCH ×2 (05:56→18:38)
[2019-01-04] MEDS: INSULIN LISPRO/ASPART 100 UNIT/ML CARTRIDGE SQ PRN (05:57)
[2019-01-04 07:56] VITALS: BP 112/71
[2019-01-04] MEDS: DOCUSATE SODIUM LIQ 100 MG/10 ML UDC GT SCH ×2 (09:00→17:48)
[2019-01-04] MEDS: HYDROGEN PEROXIDE 480 ML BOTTLE TP SCH ×2 (09:00→21:13)
[2019-01-04] MEDS: ASCORBIC ACID 500 MG TABLET GT SCH ×2 (09:00→17:48)
[2019-01-04] MEDS: HEPARIN SODIUM, PORCINE 5000 UNITS/1 ML VIAL SQ SCH ×2 (09:00→21:13)
[2019-01-04] MEDS: POTASSIUM CHLORIDE 20 MEQ POWDER PACKET GT SCH (09:00)
[2019-01-04] MEDS: Z GUARD REMEDY 4 OZ OINT TP SCH ×2 (09:00→21:13)
[2019-01-04] MEDS: METFORMIN 850 MG TABLET GT SCH ×2 (09:00→17:48)
[2019-01-04] MEDS: PROSTAT (PYXIS) 30 ML UDC GT SCH ×2 (09:00→17:48)
[2019-01-04] MEDS: LEVETIRACETAM SOL (5 ML) 100 MG/ML UDC GT SCH ×2 (09:00→21:11)
[2019-01-04] MEDS: FERROUS SULFATE - FOR SA ONLY 330 MG/7.5 ML UDC GT SCH ×3 (09:00→17:48)
[2019-01-04] MEDS: GLUCERNA 1.2 1,000 ML BOTTLE GT PRN (18:50)
--- NOTE | 2019-01-04 19:30 | NUR ---
Seen and examined by Mya Rodgers NP new order Baclofen 10mg via gt q 12 hrs for spasm.
[2019-01-04 20:22] VITALS: BP 109/69
[2019-01-04] MEDS: BACLOFEN (10 MG) 10 MG TABLET GT SCH (21:11)
[2019-01-04] MEDS: MULTIVIT W/MINERALS 1 TAB TABLET GT SCH (21:11)
[2019-01-04] MEDS: SENNOSIDES 8.6 MG TABLET GT SCH (21:13)
[2019-01-04] MEDS: [UNRECOGNIZED DRUG - OTHER] SQ SCH (21:14)
[2019-01-04] MEDS: BASAGLAR SQ SCH (21:14)
[2019-01-05] MEDS: ALBUTEROL FS 2.5 MG/3 ML VIAL.NEB NEB SCH ×4 (02:27→20:26)
[2019-01-05] MEDS: IPRATROPIUM NEB FS 0.5 MG/2.5 ML AMPUL.NEB NEB SCH ×4 (02:27→20:26)
[2019-01-05] MEDS: BLOOD SUGAR DIAGNOSTIC 1 EACH STRIP IN SCH ×2 (05:27→18:18)
[2019-01-05] MEDS: OMEPRAZOLE DR 20 MG GT SCH (05:27)
[2019-01-05] MEDS: POLYVINYL ALCOHOL 15 ML BOTTLE EACHEYE SCH ×4 (05:27→23:42)
[2019-01-05] MEDS: INSULIN LISPRO/ASPART 100 UNIT/ML CARTRIDGE SQ PRN (05:28)
[2019-01-05 07:55] VITALS: BP 130/86
[2019-01-05] MEDS: Z GUARD REMEDY 4 OZ OINT TP SCH ×2 (09:00→20:17)
[2019-01-05] MEDS: LEVETIRACETAM SOL (5 ML) 100 MG/ML UDC GT SCH ×2 (09:00→20:16)
[2019-01-05] MEDS: BACLOFEN (10 MG) 10 MG TABLET GT SCH ×2 (09:00→20:16)
[2019-01-05] MEDS: METFORMIN 850 MG TABLET GT SCH ×2 (09:00→17:25)
[2019-01-05] MEDS: DOCUSATE SODIUM LIQ 100 MG/10 ML UDC GT SCH ×2 (09:00→17:25)
[2019-01-05] MEDS: PROSTAT (PYXIS) 30 ML UDC GT SCH ×2 (09:00→17:25)
[2019-01-05] MEDS: ASCORBIC ACID 500 MG TABLET GT SCH ×2 (09:00→17:25)
[2019-01-05] MEDS: HEPARIN SODIUM, PORCINE 5000 UNITS/1 ML VIAL SQ SCH ×2 (09:00→21:45)
[2019-01-05] MEDS: FERROUS SULFATE - FOR SA ONLY 330 MG/7.5 ML UDC GT SCH ×3 (09:00→17:25)
[2019-01-05] MEDS: POTASSIUM CHLORIDE 20 MEQ POWDER PACKET GT SCH (09:00)
[2019-01-05] MEDS: HYDROGEN PEROXIDE 480 ML BOTTLE TP SCH ×2 (09:00→20:17)
--- NOTE | 2019-01-05 09:44 | NUR ---
RT NOTE PATIENT WAS RECEIVED ON VENT WITH NOTED VENT SETTINGS. HHN INLINE TREATMENT WAS GIVEN. TRACH CARE DONE USING ASEPTIC TECHNIQUE . TRACH TUBE PATENT AND SECURED. WILL CONTINUE TO MONITOR. Addendum: 01/05/19 at 0946 by EDNA JUNIOR RT Amended: Links added.
--- NOTE | 2019-01-05 15:00 | NUR ---
INTERDISCIPLINARY PLAN OF CARE CONFERENCE was held today Resident's sister unable to attend the meeting. Dr. Alvarez and the interdisciplinary team discussed the current plan of care in detail. Current orders as well as treatments and medications were reviewed. Patient continue on ventilator with AC setting. Patient failed weaning trial. Baclofen was restarted yesterday for muscle spasm. No other change in condition. NNO given
[2019-01-05 20:14] VITALS: BP 106/70
[2019-01-05] MEDS: MULTIVIT W/MINERALS 1 TAB TABLET GT SCH (20:20)
--- NOTE | 2019-01-05 20:26 | NUR ---
RECEIVED TRACH PT ON MECH VENT WITH NOTED SETTINGS. PT IS OBTUNDED. TRACH IS PATENT AND SECURED. 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 Q6 BREATHING TX GIVEN WITH NO ADVERSE REACTION NOTED. SX DONE PRN. VENT PLUGGED INTO RED OUTLET. ALARMS ON AND AUDIBLE. AMBU BAG @ BEDSIDE. NO RESP DISTRESS AT THIS TIME. WILL CONT TO MONITOR PT.
[2019-01-05] MEDS: SENNOSIDES 8.6 MG TABLET GT SCH (21:45)
[2019-01-05] MEDS: BASAGLAR SQ SCH (21:48)
[2019-01-05] MEDS: [UNRECOGNIZED DRUG - OTHER] SQ SCH (21:48)
[2019-01-05] MEDS: GLUCERNA 1.2 1,000 ML BOTTLE GT PRN (23:42)
[2019-01-06] MEDS: IPRATROPIUM NEB FS 0.5 MG/2.5 ML AMPUL.NEB NEB SCH ×4 (01:24→20:10)
[2019-01-06] MEDS: ALBUTEROL FS 2.5 MG/3 ML VIAL.NEB NEB SCH ×4 (01:24→20:10)
[2019-01-06] MEDS: POLYVINYL ALCOHOL 15 ML BOTTLE EACHEYE SCH ×4 (05:47→21:23)
[2019-01-06] MEDS: BLOOD SUGAR DIAGNOSTIC 1 EACH STRIP IN SCH ×2 (05:48→18:06)
[2019-01-06] MEDS: OMEPRAZOLE DR 20 MG GT SCH (05:48)
[2019-01-06] MEDS: INSULIN LISPRO/ASPART 100 UNIT/ML CARTRIDGE SQ PRN (06:16)
[2019-01-06 07:24] VITALS: BP 119/72
[2019-01-06] MEDS: LEVETIRACETAM SOL (5 ML) 100 MG/ML UDC GT SCH ×2 (09:00→21:22)
[2019-01-06] MEDS: HEPARIN SODIUM, PORCINE 5000 UNITS/1 ML VIAL SQ SCH ×2 (09:00→21:22)
[2019-01-06] MEDS: HYDROGEN PEROXIDE 480 ML BOTTLE TP SCH ×2 (09:00→21:22)
[2019-01-06] MEDS: PROSTAT (PYXIS) 30 ML UDC GT SCH ×2 (09:00→17:00)
[2019-01-06] MEDS: FERROUS SULFATE - FOR SA ONLY 330 MG/7.5 ML UDC GT SCH ×3 (09:00→17:00)
[2019-01-06] MEDS: DOCUSATE SODIUM LIQ 100 MG/10 ML UDC GT SCH ×2 (09:00→17:00)
[2019-01-06] MEDS: METFORMIN 850 MG TABLET GT SCH ×2 (09:00→17:00)
[2019-01-06] MEDS: Z GUARD REMEDY 4 OZ OINT TP SCH ×2 (09:00→21:23)
[2019-01-06] MEDS: ASCORBIC ACID 500 MG TABLET GT SCH ×2 (09:00→17:00)
[2019-01-06] MEDS: POTASSIUM CHLORIDE 20 MEQ POWDER PACKET GT SCH (09:00)
[2019-01-06] MEDS: BACLOFEN (10 MG) 10 MG TABLET GT SCH ×2 (09:00→21:22)
[2019-01-06] MEDS: POLYETHYLENE GLYCOL 3350 17 GM POWD.PACK GT PRN (18:41)
[2019-01-06 20:20] VITALS: BP 112/66
[2019-01-06] MEDS: MULTIVIT W/MINERALS 1 TAB TABLET GT SCH (21:22)
[2019-01-06] MEDS: SENNOSIDES 8.6 MG TABLET GT SCH (21:23)
[2019-01-06] MEDS: [UNRECOGNIZED DRUG - OTHER] SQ SCH (21:23)
[2019-01-06] MEDS: BASAGLAR SQ SCH (21:23)
[2019-01-07] MEDS: GLUCERNA 1.2 1,000 ML BOTTLE GT PRN ×2 (00:54→18:22)
[2019-01-07] MEDS: POLYETHYLENE GLYCOL 3350 17 GM POWD.PACK GT PRN ×3 (01:00→18:34)
[2019-01-07] MEDS: IPRATROPIUM NEB FS 0.5 MG/2.5 ML AMPUL.NEB NEB SCH ×4 (01:27→19:36)
[2019-01-07] MEDS: ALBUTEROL FS 2.5 MG/3 ML VIAL.NEB NEB SCH ×4 (01:27→19:36)
--- NOTE | 2019-01-07 03:26 | NUR ---
RT NOTES TRACH TUBE IN PLACE, PATENT, AND SECURED WITH TRACH TIE. ALARMS ON AND AUDIBLE. VENT PLUGGED IN TO RED OUTLET. AMBU BAG AND BACK UP TRACH BY THE BEDSIDE. TRACH CARE PERFORMED. STOMA CLEANED AND REPLACED INNER CANNULA. SO SIGNS OF ANY SOB. PT STABLE. Addendum: 01/07/19 at 0326 by ADOLFO LU RT Amended: Links added.
[2019-01-07] MEDS: POLYVINYL ALCOHOL 15 ML BOTTLE EACHEYE SCH ×4 (05:55→23:08)
[2019-01-07] MEDS: OMEPRAZOLE DR 20 MG GT SCH (05:55)
[2019-01-07] MEDS: BLOOD SUGAR DIAGNOSTIC 1 EACH STRIP IN SCH ×2 (05:56→17:26)
[2019-01-07] MEDS: INSULIN LISPRO/ASPART 100 UNIT/ML CARTRIDGE SQ PRN (05:56)
[2019-01-07 07:52] VITALS: BP 117/74
[2019-01-07] MEDS: FERROUS SULFATE - FOR SA ONLY 330 MG/7.5 ML UDC GT SCH ×3 (09:52→16:29)
[2019-01-07] MEDS: ASCORBIC ACID 500 MG TABLET GT SCH ×2 (09:52→16:30)
[2019-01-07] MEDS: POTASSIUM CHLORIDE 20 MEQ POWDER PACKET GT SCH (09:52)
[2019-01-07] MEDS: PROSTAT (PYXIS) 30 ML UDC GT SCH ×2 (09:52→16:29)
[2019-01-07] MEDS: DOCUSATE SODIUM LIQ 100 MG/10 ML UDC GT SCH ×2 (09:52→16:29)
[2019-01-07] MEDS: METFORMIN 850 MG TABLET GT SCH ×2 (09:52→16:29)
[2019-01-07] MEDS: LEVETIRACETAM SOL (5 ML) 100 MG/ML UDC GT SCH ×2 (09:52→21:09)
[2019-01-07] MEDS: BACLOFEN (10 MG) 10 MG TABLET GT SCH ×2 (09:52→21:09)
[2019-01-07] MEDS: HEPARIN SODIUM, PORCINE 5000 UNITS/1 ML VIAL SQ SCH ×2 (09:53→21:10)
[2019-01-07] MEDS: Z GUARD REMEDY 4 OZ OINT TP SCH ×2 (09:53→21:10)
[2019-01-07] MEDS: HYDROGEN PEROXIDE 480 ML BOTTLE TP SCH ×2 (09:53→21:10)
[2019-01-07 20:48] VITALS: BP 137/76
[2019-01-07] MEDS: MULTIVIT W/MINERALS 1 TAB TABLET GT SCH (21:09)
[2019-01-07] MEDS: SENNOSIDES 8.6 MG TABLET GT SCH (21:10)
[2019-01-07] MEDS: [UNRECOGNIZED DRUG - OTHER] SQ SCH (21:15)
[2019-01-07] MEDS: BASAGLAR SQ SCH (21:15)
[2019-01-08] MEDS: IPRATROPIUM NEB FS 0.5 MG/2.5 ML AMPUL.NEB NEB SCH ×4 (01:32→19:26)
[2019-01-08] MEDS: ALBUTEROL FS 2.5 MG/3 ML VIAL.NEB NEB SCH ×4 (01:32→19:26)
[2019-01-08] MEDS: BLOOD SUGAR DIAGNOSTIC 1 EACH STRIP IN SCH ×2 (05:22→17:23)
[2019-01-08] MEDS: POLYVINYL ALCOHOL 15 ML BOTTLE EACHEYE SCH ×4 (05:22→23:39)
[2019-01-08] MEDS: OMEPRAZOLE DR 20 MG GT SCH (05:22)
[2019-01-08 07:58] VITALS: BP 106/65
[2019-01-08] MEDS: HYDROGEN PEROXIDE 480 ML BOTTLE TP SCH ×2 (09:00→21:26)
[2019-01-08] MEDS: DOCUSATE SODIUM LIQ 100 MG/10 ML UDC GT SCH ×2 (09:38→17:12)
[2019-01-08] MEDS: ASCORBIC ACID 500 MG TABLET GT SCH ×2 (09:38→17:12)
[2019-01-08] MEDS: METFORMIN 850 MG TABLET GT SCH ×2 (09:38→17:12)
[2019-01-08] MEDS: PROSTAT (PYXIS) 30 ML UDC GT SCH ×2 (09:38→17:12)
[2019-01-08] MEDS: POTASSIUM CHLORIDE 20 MEQ POWDER PACKET GT SCH (09:38)
[2019-01-08] MEDS: BACLOFEN (10 MG) 10 MG TABLET GT SCH ×2 (09:38→21:25)
[2019-01-08] MEDS: FERROUS SULFATE - FOR SA ONLY 330 MG/7.5 ML UDC GT SCH ×3 (09:38→17:12)
[2019-01-08] MEDS: LEVETIRACETAM SOL (5 ML) 100 MG/ML UDC GT SCH ×2 (09:38→21:25)
[2019-01-08] MEDS: HEPARIN SODIUM, PORCINE 5000 UNITS/1 ML VIAL SQ SCH ×2 (09:40→21:26)
[2019-01-08] MEDS: Z GUARD REMEDY 4 OZ OINT TP SCH ×2 (09:41→21:26)
[2019-01-08] MEDS: INSULIN LISPRO/ASPART 100 UNIT/ML CARTRIDGE SQ PRN (17:23)
[2019-01-08 20:54] VITALS: BP 102/86
[2019-01-08] MEDS: MULTIVIT W/MINERALS 1 TAB TABLET GT SCH (21:25)
[2019-01-08] MEDS: SENNOSIDES 8.6 MG TABLET GT SCH (21:26)
[2019-01-08] MEDS: BASAGLAR SQ SCH (21:30)
[2019-01-08] MEDS: [UNRECOGNIZED DRUG - OTHER] SQ SCH (21:30)
[2019-01-09] MEDS: IPRATROPIUM NEB FS 0.5 MG/2.5 ML AMPUL.NEB NEB SCH ×4 (01:41→20:05)
[2019-01-09] MEDS: ALBUTEROL FS 2.5 MG/3 ML VIAL.NEB NEB SCH ×4 (01:41→20:05)
[2019-01-09] MEDS: BLOOD SUGAR DIAGNOSTIC 1 EACH STRIP IN SCH ×2 (05:34→17:57)
[2019-01-09] MEDS: OMEPRAZOLE DR 20 MG GT SCH (05:34)
[2019-01-09] MEDS: POLYVINYL ALCOHOL 15 ML BOTTLE EACHEYE SCH ×4 (05:34→23:05)
[2019-01-09 08:19] VITALS: BP 109/63
[2019-01-09] MEDS: DOCUSATE SODIUM LIQ 100 MG/10 ML UDC GT SCH ×2 (09:08→17:57)
[2019-01-09] MEDS: FERROUS SULFATE - FOR SA ONLY 330 MG/7.5 ML UDC GT SCH ×3 (09:08→17:57)
[2019-01-09] MEDS: POTASSIUM CHLORIDE 20 MEQ POWDER PACKET GT SCH (09:09)
[2019-01-09] MEDS: BACLOFEN (10 MG) 10 MG TABLET GT SCH ×2 (09:09→21:01)
[2019-01-09] MEDS: HYDROGEN PEROXIDE 480 ML BOTTLE TP SCH ×2 (09:09→20:05)
[2019-01-09] MEDS: Z GUARD REMEDY 4 OZ OINT TP SCH ×2 (09:09→21:02)
[2019-01-09] MEDS: METFORMIN 850 MG TABLET GT SCH ×2 (09:09→17:57)
[2019-01-09] MEDS: LEVETIRACETAM SOL (5 ML) 100 MG/ML UDC GT SCH ×2 (09:09→21:01)
[2019-01-09] MEDS: PROSTAT (PYXIS) 30 ML UDC GT SCH ×2 (09:09→17:57)
[2019-01-09] MEDS: ASCORBIC ACID 500 MG TABLET GT SCH ×2 (09:09→17:57)
[2019-01-09] MEDS: HEPARIN SODIUM, PORCINE 5000 UNITS/1 ML VIAL SQ SCH ×2 (09:09→21:02)
[2019-01-09] MEDS: INSULIN LISPRO/ASPART 100 UNIT/ML CARTRIDGE SQ PRN (17:57)
[2019-01-09 20:41] VITALS: BP 105/75
[2019-01-09] MEDS: MULTIVIT W/MINERALS 1 TAB TABLET GT SCH (21:01)
[2019-01-09] MEDS: SENNOSIDES 8.6 MG TABLET GT SCH (21:02)
[2019-01-09] MEDS: BASAGLAR SQ SCH (21:03)
[2019-01-09] MEDS: [UNRECOGNIZED DRUG - OTHER] SQ SCH (21:03)
[2019-01-10] MEDS: ALBUTEROL FS 2.5 MG/3 ML VIAL.NEB NEB SCH ×4 (02:23→20:22)
[2019-01-10] MEDS: IPRATROPIUM NEB FS 0.5 MG/2.5 ML AMPUL.NEB NEB SCH ×4 (02:23→20:22)
[2019-01-10] MEDS: POLYVINYL ALCOHOL 15 ML BOTTLE EACHEYE SCH ×3 (05:24→17:09)
[2019-01-10] MEDS: OMEPRAZOLE DR 20 MG GT SCH (05:24)
[2019-01-10] MEDS: BLOOD SUGAR DIAGNOSTIC 1 EACH STRIP IN SCH ×2 (05:24→17:09)
[2019-01-10 07:51] VITALS: BP 87/53
[2019-01-10 08:15] VITALS: BP 101/54
[2019-01-10] MEDS: METFORMIN 850 MG TABLET GT SCH ×2 (08:45→17:09)
[2019-01-10] MEDS: FERROUS SULFATE - FOR SA ONLY 330 MG/7.5 ML UDC GT SCH ×3 (08:45→17:09)
[2019-01-10] MEDS: DOCUSATE SODIUM LIQ 100 MG/10 ML UDC GT SCH ×2 (08:45→17:09)
[2019-01-10] MEDS: POTASSIUM CHLORIDE 20 MEQ POWDER PACKET GT SCH (08:46)
[2019-01-10] MEDS: LEVETIRACETAM SOL (5 ML) 100 MG/ML UDC GT SCH ×2 (08:46→20:20)
[2019-01-10] MEDS: ASCORBIC ACID 500 MG TABLET GT SCH ×2 (08:46→17:09)
[2019-01-10] MEDS: PROSTAT (PYXIS) 30 ML UDC GT SCH ×2 (08:46→17:09)
[2019-01-10] MEDS: BACLOFEN (10 MG) 10 MG TABLET GT SCH ×2 (08:46→20:20)
[2019-01-10] MEDS: HEPARIN SODIUM, PORCINE 5000 UNITS/1 ML VIAL SQ SCH ×2 (08:48→20:26)
[2019-01-10] MEDS: Z GUARD REMEDY 4 OZ OINT TP SCH ×2 (08:49→20:21)
[2019-01-10] MEDS: INSULIN LISPRO/ASPART 100 UNIT/ML CARTRIDGE SQ PRN (17:09)
[2019-01-10 20:00] VITALS: BP 103/72
[2019-01-10] MEDS: MULTIVIT W/MINERALS 1 TAB TABLET GT SCH (20:20)
[2019-01-10 20:30] VITALS: BP 103/72
--- NOTE | 2019-01-10 20:51 | NUR ---
RT NOTE PT REC'D TRACH'D ON MECHANICAL VENT WITH CHARTED SETTINGS. TX TOLERATED WELL. SX DONE. PT TRACH IS PATENT AND SECURE. VENT IS PLUGGED INTO RED OUTLET. ALARMS ARE ON AND AUDIBLE. AMBU BAG AT BEDSIDE. NO SOB NOTED AT THIS TIME. WILL CONTINUE TO MONITOR. Addendum: 01/10/19 at 2050 by ARIS CRUZ RT Amended: Links added.
[2019-01-10] MEDS: HYDROGEN PEROXIDE 480 ML BOTTLE TP SCH (21:00)
[2019-01-10] MEDS: SENNOSIDES 8.6 MG TABLET GT SCH (22:22)
[2019-01-10] MEDS: BASAGLAR SQ SCH (22:59)
[2019-01-10] MEDS: [UNRECOGNIZED DRUG - OTHER] SQ SCH (22:59)
[2019-01-11] MEDS: POLYVINYL ALCOHOL 15 ML BOTTLE EACHEYE SCH ×5 (00:05→23:56)
[2019-01-11] MEDS: GLUCERNA 1.2 1,000 ML BOTTLE GT PRN ×2 (01:25→23:56)
[2019-01-11] MEDS: ALBUTEROL FS 2.5 MG/3 ML VIAL.NEB NEB SCH ×4 (01:29→19:55)
[2019-01-11] MEDS: IPRATROPIUM NEB FS 0.5 MG/2.5 ML AMPUL.NEB NEB SCH ×4 (01:29→19:55)
[2019-01-11] MEDS: BLOOD SUGAR DIAGNOSTIC 1 EACH STRIP IN SCH ×2 (05:28→18:24)
[2019-01-11] MEDS: OMEPRAZOLE DR 20 MG GT SCH (05:28)
--- NOTE | 2019-01-11 05:30 | NUR ---
LIFE SPECIALIST NOTES BLOOD SUGAR 122, NO INSULIN COVERAGE DUE AT THIS TIME. NO SIGNS OF HYPO GLYCEMIA NOTED. DUE MEDS GIVEN WELL. PT STABLE [place] THE NIGHT NO SIGNS OF ANY DISTRESS NOTED.
[2019-01-11] MEDS: INSULIN LISPRO/ASPART 100 UNIT/ML CARTRIDGE SQ PRN (05:31)
[2019-01-11 08:02] VITALS: BP 101/66
[2019-01-11] MEDS: HYDROGEN PEROXIDE 480 ML BOTTLE TP SCH ×2 (09:00→21:21)
[2019-01-11] MEDS: Z GUARD REMEDY 4 OZ OINT TP SCH ×2 (09:55→21:21)
[2019-01-11] MEDS: POTASSIUM CHLORIDE 20 MEQ POWDER PACKET GT SCH (09:55)
[2019-01-11] MEDS: DOCUSATE SODIUM LIQ 100 MG/10 ML UDC GT SCH ×2 (09:55→16:55)
[2019-01-11] MEDS: BACLOFEN (10 MG) 10 MG TABLET GT SCH ×2 (09:55→21:20)
[2019-01-11] MEDS: ASCORBIC ACID 500 MG TABLET GT SCH ×2 (09:55→16:55)
[2019-01-11] MEDS: FERROUS SULFATE - FOR SA ONLY 330 MG/7.5 ML UDC GT SCH ×3 (09:55→16:55)
[2019-01-11] MEDS: PROSTAT (PYXIS) 30 ML UDC GT SCH ×2 (09:55→16:55)
[2019-01-11] MEDS: HEPARIN SODIUM, PORCINE 5000 UNITS/1 ML VIAL SQ SCH ×2 (09:55→21:21)
[2019-01-11] MEDS: METFORMIN 850 MG TABLET GT SCH ×2 (09:55→16:55)
[2019-01-11] MEDS: LEVETIRACETAM SOL (5 ML) 100 MG/ML UDC GT SCH ×2 (09:55→21:20)
[2019-01-11] MEDS: MULTIVIT W/MINERALS 1 TAB TABLET GT SCH (21:20)
[2019-01-11] MEDS: SENNOSIDES 8.6 MG TABLET GT SCH (21:21)
[2019-01-11] MEDS: BASAGLAR SQ SCH (21:22)
[2019-01-11] MEDS: [UNRECOGNIZED DRUG - OTHER] SQ SCH (21:22)
--- NOTE | 2019-01-11 21:32 | NUR ---
RT NOTE PT RCVD TRACH'D ON MECHANICAL VENT WITH CHARTED SETTINGS. TX TUTU WELL. SX DONE. PT TRACH IS PATENT AND SECURE. VENT IS PLUGGED INTO RED OUTLET. ALARMS ARE ON AND AUDIBLE. AMBU BAG AT BEDSIDE. WILL CONTINUE TO MONITOR. Addendum: 01/11/19 at 2133 by CHAGO HOLMAN RT Amended: Links added.
[2019-01-12] MEDS: ALBUTEROL FS 2.5 MG/3 ML VIAL.NEB NEB SCH ×4 (00:50→20:27)
[2019-01-12] MEDS: IPRATROPIUM NEB FS 0.5 MG/2.5 ML AMPUL.NEB NEB SCH ×4 (00:50→20:28)
[2019-01-12 04:15] VITALS: BP 121/73
[2019-01-12] MEDS: POLYVINYL ALCOHOL 15 ML BOTTLE EACHEYE SCH ×3 (06:28→17:31)
[2019-01-12] MEDS: OMEPRAZOLE DR 20 MG GT SCH (06:29)
[2019-01-12] MEDS: BLOOD SUGAR DIAGNOSTIC 1 EACH STRIP IN SCH ×2 (06:29→17:31)
[2019-01-12] MEDS: INSULIN LISPRO/ASPART 100 UNIT/ML CARTRIDGE SQ PRN ×2 (06:30→17:32)
[2019-01-12 08:02] VITALS: BP 123/70
[2019-01-12] MEDS: HEPARIN SODIUM, PORCINE 5000 UNITS/1 ML VIAL SQ SCH ×2 (09:08→20:08)
[2019-01-12] MEDS: FERROUS SULFATE - FOR SA ONLY 330 MG/7.5 ML UDC GT SCH ×3 (09:08→17:31)
[2019-01-12] MEDS: DOCUSATE SODIUM LIQ 100 MG/10 ML UDC GT SCH ×2 (09:08→17:31)
[2019-01-12] MEDS: POTASSIUM CHLORIDE 20 MEQ POWDER PACKET GT SCH (09:09)
[2019-01-12] MEDS: METFORMIN 850 MG TABLET GT SCH ×2 (09:09→17:31)
[2019-01-12] MEDS: PROSTAT (PYXIS) 30 ML UDC GT SCH ×2 (09:09→17:31)
[2019-01-12] MEDS: LEVETIRACETAM SOL (5 ML) 100 MG/ML UDC GT SCH ×2 (09:09→20:05)
[2019-01-12] MEDS: BACLOFEN (10 MG) 10 MG TABLET GT SCH ×2 (09:09→20:06)
[2019-01-12] MEDS: ASCORBIC ACID 500 MG TABLET GT SCH ×2 (09:09→17:31)
[2019-01-12] MEDS: Z GUARD REMEDY 4 OZ OINT TP SCH ×2 (09:09→20:08)
[2019-01-12] MEDS: HYDROGEN PEROXIDE 480 ML BOTTLE TP SCH ×2 (09:31→20:08)
[2019-01-12 19:29] VITALS: BP 108/75
[2019-01-12] MEDS: MULTIVIT W/MINERALS 1 TAB TABLET GT SCH (20:06)
--- NOTE | 2019-01-12 20:28 | NUR ---
RECEIVED TRACH PT ON MECH VENT WITH NOTED SETTINGS. PT IS OBTUNDED. TRACH IS PATENT AND SECURED. INSPECTOR CASING DONE. Q6 BREATHING TX GIVEN WITH NO ADVERSE REACTION NOTED. SX DONE PRN. VENT PLUGGED INTO RED OUTLET. ALARMS ON AND AUDIBLE. AMBU BAG @ BEDSIDE. NO RESP DISTRESS AT THIS TIME. WILL CONT TO MONITOR PT.
[2019-01-12] MEDS: [UNRECOGNIZED DRUG - OTHER] SQ SCH (21:15)
[2019-01-12] MEDS: SENNOSIDES 8.6 MG TABLET GT SCH (21:15)
[2019-01-12] MEDS: BASAGLAR SQ SCH (21:15)
[2019-01-12] MEDS: GLUCERNA 1.2 1,000 ML BOTTLE GT PRN (22:03)
[2019-01-13] MEDS: POLYVINYL ALCOHOL 15 ML BOTTLE EACHEYE SCH ×4 (00:08→17:02)
[2019-01-13] MEDS: ALBUTEROL FS 2.5 MG/3 ML VIAL.NEB NEB SCH ×4 (01:44→19:43)
[2019-01-13] MEDS: IPRATROPIUM NEB FS 0.5 MG/2.5 ML AMPUL.NEB NEB SCH ×4 (01:44→19:43)
[2019-01-13] MEDS: BLOOD SUGAR DIAGNOSTIC 1 EACH STRIP IN SCH ×2 (05:06→17:02)
[2019-01-13] MEDS: INSULIN LISPRO/ASPART 100 UNIT/ML CARTRIDGE SQ PRN (05:06)
[2019-01-13] MEDS: OMEPRAZOLE DR 20 MG GT SCH (05:06)
[2019-01-13 07:49] VITALS: BP 128/72
[2019-01-13] MEDS: DOCUSATE SODIUM LIQ 100 MG/10 ML UDC GT SCH ×2 (09:04→17:02)
[2019-01-13] MEDS: FERROUS SULFATE - FOR SA ONLY 330 MG/7.5 ML UDC GT SCH ×3 (09:05→17:02)
[2019-01-13] MEDS: PROSTAT (PYXIS) 30 ML UDC GT SCH ×2 (09:05→17:02)
[2019-01-13] MEDS: POTASSIUM CHLORIDE 20 MEQ POWDER PACKET GT SCH (09:05)
[2019-01-13] MEDS: LEVETIRACETAM SOL (5 ML) 100 MG/ML UDC GT SCH ×2 (09:05→20:13)
[2019-01-13] MEDS: BACLOFEN (10 MG) 10 MG TABLET GT SCH ×2 (09:05→20:13)
[2019-01-13] MEDS: METFORMIN 850 MG TABLET GT SCH ×2 (09:05→17:02)
[2019-01-13] MEDS: ASCORBIC ACID 500 MG TABLET GT SCH ×2 (09:05→17:02)
[2019-01-13] MEDS: Z GUARD REMEDY 4 OZ OINT TP SCH ×2 (09:06→21:46)
[2019-01-13] MEDS: HEPARIN SODIUM, PORCINE 5000 UNITS/1 ML VIAL SQ SCH ×2 (09:06→20:19)
[2019-01-13] MEDS: HYDROGEN PEROXIDE 480 ML BOTTLE TP SCH ×2 (09:06→21:02)
[2019-01-13] MEDS: GLUCERNA 1.2 1,000 ML BOTTLE GT PRN (18:40)
[2019-01-13] MEDS: MULTIVIT W/MINERALS 1 TAB TABLET GT SCH (20:13)
[2019-01-13] MEDS: SENNOSIDES 8.6 MG TABLET GT SCH (20:27)
[2019-01-13 20:39] VITALS: BP 102/70
[2019-01-13] MEDS: [UNRECOGNIZED DRUG - OTHER] SQ SCH (21:43)
[2019-01-13] MEDS: BASAGLAR SQ SCH (21:43)
[2019-01-14] MEDS: POLYVINYL ALCOHOL 15 ML BOTTLE EACHEYE SCH ×4 (00:02→17:58)
[2019-01-14] MEDS: GLUCERNA 1.2 1,000 ML BOTTLE GT PRN ×2 (00:32→17:58)
[2019-01-14] MEDS: IPRATROPIUM NEB FS 0.5 MG/2.5 ML AMPUL.NEB NEB SCH ×4 (01:29→20:18)
[2019-01-14] MEDS: ALBUTEROL FS 2.5 MG/3 ML VIAL.NEB NEB SCH ×4 (01:29→20:18)
[2019-01-14] MEDS: OMEPRAZOLE DR 20 MG GT SCH (05:02)
[2019-01-14] MEDS: INSULIN LISPRO/ASPART 100 UNIT/ML CARTRIDGE SQ PRN (05:33)
[2019-01-14] MEDS: BLOOD SUGAR DIAGNOSTIC 1 EACH STRIP IN SCH ×2 (05:33→17:58)
[2019-01-14 07:38] VITALS: BP 97/58
[2019-01-14] MEDS: PROSTAT (PYXIS) 30 ML UDC GT SCH ×2 (09:00→17:10)
[2019-01-14] MEDS: METFORMIN 850 MG TABLET GT SCH ×2 (09:00→17:10)
[2019-01-14] MEDS: ASCORBIC ACID 500 MG TABLET GT SCH ×2 (09:00→17:10)
[2019-01-14] MEDS: FERROUS SULFATE - FOR SA ONLY 330 MG/7.5 ML UDC GT SCH ×3 (09:00→17:10)
[2019-01-14] MEDS: DOCUSATE SODIUM LIQ 100 MG/10 ML UDC GT SCH ×2 (09:00→17:10)
[2019-01-14] MEDS: HEPARIN SODIUM, PORCINE 5000 UNITS/1 ML VIAL SQ SCH ×2 (09:00→20:07)
[2019-01-14] MEDS: POTASSIUM CHLORIDE 20 MEQ POWDER PACKET GT SCH (09:00)
[2019-01-14] MEDS: LEVETIRACETAM SOL (5 ML) 100 MG/ML UDC GT SCH ×2 (09:00→20:03)
[2019-01-14] MEDS: Z GUARD REMEDY 4 OZ OINT TP SCH ×2 (09:00→20:07)
[2019-01-14] MEDS: BACLOFEN (10 MG) 10 MG TABLET GT SCH ×2 (09:00→20:04)
--- NOTE | 2019-01-14 13:00 | NUR ---
Seen and examined by Dr. Dsouza, no new order given.
[2019-01-14 20:04] VITALS: BP 100/65
[2019-01-14] MEDS: MULTIVIT W/MINERALS 1 TAB TABLET GT SCH (20:05)
--- NOTE | 2019-01-14 20:18 | NUR ---
RT NOTES PT RECEIVED TRACHED ON [facility] VENT ON CHARTED SETTINGS. NO RESP DISTRESS NOTED. AIRWAY PATENT AND SECURED. PT SUCTIONED. MTL DONE. HHN TX GIVEN. ALARMS ARE SET AND AUDIBLE. AMBUBAG AND BACK UP TRACH PRESENT. VENT CONNECTED TO RED OUTLET. WILL CONT TO MONITOR. Addendum: 01/14/19 at 2329 by MERARY NAILS RT Amended: Links added.
[2019-01-14] MEDS: HYDROGEN PEROXIDE 480 ML BOTTLE TP SCH (20:27)
[2019-01-14] MEDS: BASAGLAR SQ SCH (21:08)
[2019-01-14] MEDS: [UNRECOGNIZED DRUG - OTHER] SQ SCH (21:08)
[2019-01-14] MEDS: SENNOSIDES 8.6 MG TABLET GT SCH (21:08)
[2019-01-15] MEDS: POLYVINYL ALCOHOL 15 ML BOTTLE EACHEYE SCH ×5 (00:41→23:02)
[2019-01-15] MEDS: IPRATROPIUM NEB FS 0.5 MG/2.5 ML AMPUL.NEB NEB SCH ×4 (01:43→19:28)
[2019-01-15] MEDS: ALBUTEROL FS 2.5 MG/3 ML VIAL.NEB NEB SCH ×4 (01:43→19:28)
[2019-01-15] MEDS: BLOOD SUGAR DIAGNOSTIC 1 EACH STRIP IN SCH ×2 (05:21→18:17)
[2019-01-15] MEDS: OMEPRAZOLE DR 20 MG GT SCH (05:21)
[2019-01-15] MEDS: INSULIN LISPRO/ASPART 100 UNIT/ML CARTRIDGE SQ PRN ×2 (05:22→18:17)
[2019-01-15 08:00] VITALS: BP 113/75
[2019-01-15] MEDS: Z GUARD REMEDY 4 OZ OINT TP SCH ×2 (09:00→21:03)
[2019-01-15] MEDS: HYDROGEN PEROXIDE 480 ML BOTTLE TP SCH ×2 (09:00→21:03)
[2019-01-15] MEDS: ASCORBIC ACID 500 MG TABLET GT SCH ×2 (09:33→16:27)
[2019-01-15] MEDS: POTASSIUM CHLORIDE 20 MEQ POWDER PACKET GT SCH (09:33)
[2019-01-15] MEDS: DOCUSATE SODIUM LIQ 100 MG/10 ML UDC GT SCH ×2 (09:33→16:26)
[2019-01-15] MEDS: LEVETIRACETAM SOL (5 ML) 100 MG/ML UDC GT SCH ×2 (09:33→21:03)
[2019-01-15] MEDS: METFORMIN 850 MG TABLET GT SCH ×2 (09:33→16:26)
[2019-01-15] MEDS: BACLOFEN (10 MG) 10 MG TABLET GT SCH ×2 (09:33→21:03)
[2019-01-15] MEDS: PROSTAT (PYXIS) 30 ML UDC GT SCH ×2 (09:33→16:26)
[2019-01-15] MEDS: FERROUS SULFATE - FOR SA ONLY 330 MG/7.5 ML UDC GT SCH ×3 (09:33→16:26)
[2019-01-15] MEDS: HEPARIN SODIUM, PORCINE 5000 UNITS/1 ML VIAL SQ SCH ×2 (09:35→21:03)
[2019-01-15 19:58] VITALS: BP 111/72
[2019-01-15] MEDS: SENNOSIDES 8.6 MG TABLET GT SCH (21:03)
[2019-01-15] MEDS: MULTIVIT W/MINERALS 1 TAB TABLET GT SCH (21:03)
[2019-01-15] MEDS: BASAGLAR SQ SCH (21:04)
[2019-01-15] MEDS: [UNRECOGNIZED DRUG - OTHER] SQ SCH (21:04)
[2019-01-16] MEDS: ALBUTEROL FS 2.5 MG/3 ML VIAL.NEB NEB SCH ×4 (01:52→20:06)
[2019-01-16] MEDS: IPRATROPIUM NEB FS 0.5 MG/2.5 ML AMPUL.NEB NEB SCH ×4 (01:52→20:06)
[2019-01-16] MEDS: POLYVINYL ALCOHOL 15 ML BOTTLE EACHEYE SCH ×3 (06:12→17:28)
[2019-01-16] MEDS: BLOOD SUGAR DIAGNOSTIC 1 EACH STRIP IN SCH ×2 (06:12→18:31)
[2019-01-16] MEDS: OMEPRAZOLE DR 20 MG GT SCH (06:12)
[2019-01-16 08:00] VITALS: BP 118/80
[2019-01-16] MEDS: ASCORBIC ACID 500 MG TABLET GT SCH ×2 (08:11→17:28)
[2019-01-16] MEDS: BACLOFEN (10 MG) 10 MG TABLET GT SCH ×2 (08:11→21:03)
[2019-01-16] MEDS: Z GUARD REMEDY 4 OZ OINT TP SCH ×2 (08:11→21:03)
[2019-01-16] MEDS: LEVETIRACETAM SOL (5 ML) 100 MG/ML UDC GT SCH ×2 (08:11→21:03)
[2019-01-16] MEDS: METFORMIN 850 MG TABLET GT SCH ×2 (08:11→17:28)
[2019-01-16] MEDS: FERROUS SULFATE - FOR SA ONLY 330 MG/7.5 ML UDC GT SCH ×3 (08:11→17:28)
[2019-01-16] MEDS: DOCUSATE SODIUM LIQ 100 MG/10 ML UDC GT SCH ×2 (08:11→17:28)
[2019-01-16] MEDS: PROSTAT (PYXIS) 30 ML UDC GT SCH ×2 (08:11→17:28)
[2019-01-16] MEDS: HEPARIN SODIUM, PORCINE 5000 UNITS/1 ML VIAL SQ SCH ×2 (08:11→21:03)
[2019-01-16] MEDS: POTASSIUM CHLORIDE 20 MEQ POWDER PACKET GT SCH (08:11)
[2019-01-16] MEDS: HYDROGEN PEROXIDE 480 ML BOTTLE TP SCH ×2 (09:00→21:03)
--- NOTE | 2019-01-16 20:06 | NUR ---
RECEIVED TRACH PT ON MECH VENT WITH NOTED SETTINGS. PT IS OBTUNDED. TRACH IS PATENT AND SECURED. RELOCATION DIRECTOR DONE. Q6 BREATHING TX GIVEN WITH NO ADVERSE REACTION NOTED. SX DONE PRN. VENT PLUGGED INTO RED OUTLET. ALARMS ON AND AUDIBLE. AMBU BAG @ BEDSIDE. NO RESP DISTRESS AT THIS TIME. WILL CONT TO MONITOR PT.
[2019-01-16 20:23] VITALS: BP 127/76
[2019-01-16] MEDS: MULTIVIT W/MINERALS 1 TAB TABLET GT SCH (21:03)
[2019-01-16] MEDS: SENNOSIDES 8.6 MG TABLET GT SCH (21:03)
[2019-01-16] MEDS: [UNRECOGNIZED DRUG - OTHER] SQ SCH (21:04)
[2019-01-16] MEDS: BASAGLAR SQ SCH (21:04)
[2019-01-17] MEDS: POLYVINYL ALCOHOL 15 ML BOTTLE EACHEYE SCH ×4 (00:10→17:53)
[2019-01-17] MEDS: IPRATROPIUM NEB FS 0.5 MG/2.5 ML AMPUL.NEB NEB SCH ×4 (01:25→20:07)
[2019-01-17] MEDS: ALBUTEROL FS 2.5 MG/3 ML VIAL.NEB NEB SCH ×4 (01:25→20:07)
[2019-01-17] MEDS: OMEPRAZOLE DR 20 MG GT SCH (05:54)
[2019-01-17] MEDS: BLOOD SUGAR DIAGNOSTIC 1 EACH STRIP IN SCH ×2 (05:54→17:53)
[2019-01-17 07:55] VITALS: BP 132/72
--- NOTE | 2019-01-17 08:51 | NUR ---
RT PATIENT WAS RECEIVED ON VENT SUPPORT WITH THE SAME VENT SETTINGS. PATIENT STABLE AT THIS TIME ,TRACH TUBE PATENT AND SECURED. WILL CONTINUE TO MONITOR PATIENT. Addendum: 01/17/19 at 0851 by DENA JUNIOR RT Amended: Links added.
[2019-01-17] MEDS: Z GUARD REMEDY 4 OZ OINT TP SCH ×2 (09:00→20:46)
[2019-01-17] MEDS: HYDROGEN PEROXIDE 480 ML BOTTLE TP SCH ×2 (09:24→20:46)
[2019-01-17] MEDS: METFORMIN 850 MG TABLET GT SCH ×2 (09:36→17:52)
[2019-01-17] MEDS: FERROUS SULFATE - FOR SA ONLY 330 MG/7.5 ML UDC GT SCH ×3 (09:36→17:52)
[2019-01-17] MEDS: DOCUSATE SODIUM LIQ 100 MG/10 ML UDC GT SCH ×2 (09:36→17:52)
[2019-01-17] MEDS: POTASSIUM CHLORIDE 20 MEQ POWDER PACKET GT SCH (09:37)
[2019-01-17] MEDS: LEVETIRACETAM SOL (5 ML) 100 MG/ML UDC GT SCH ×2 (09:37→20:45)
[2019-01-17] MEDS: PROSTAT (PYXIS) 30 ML UDC GT SCH ×2 (09:37→17:53)
[2019-01-17] MEDS: ASCORBIC ACID 500 MG TABLET GT SCH ×2 (09:37→17:53)
[2019-01-17] MEDS: BACLOFEN (10 MG) 10 MG TABLET GT SCH ×2 (09:37→20:45)
[2019-01-17] MEDS: HEPARIN SODIUM, PORCINE 5000 UNITS/1 ML VIAL SQ SCH ×2 (09:39→20:46)
[2019-01-17] MEDS: INSULIN LISPRO/ASPART 100 UNIT/ML CARTRIDGE SQ PRN (17:53)
[2019-01-17 19:53] VITALS: BP 130/83
--- NOTE | 2019-01-17 20:44 | NUR ---
RT NOTE PT RCVD TRACH'D ON MECHANICAL VENT WITH CHARTED SETTINGS. TX TUTU WELL. SX DONE. PT TRACH IS PATENT AND SECURE. VENT IS PLUGGED INTO RED OUTLET. ALARMS ARE ON AND AUDIBLE. AMBU BAG AT BEDSIDE. WILL CONTINUE TO MONITOR. Addendum: 01/17/19 at 2044 by CHAGO HOLMAN RT Amended: Links added.
[2019-01-17] MEDS: MULTIVIT W/MINERALS 1 TAB TABLET GT SCH (20:45)
[2019-01-17] MEDS: [UNRECOGNIZED DRUG - OTHER] SQ SCH (21:04)
[2019-01-17] MEDS: SENNOSIDES 8.6 MG TABLET GT SCH (21:04)
[2019-01-17] MEDS: BASAGLAR SQ SCH (21:04)
[2019-01-18] MEDS: POLYVINYL ALCOHOL 15 ML BOTTLE EACHEYE SCH ×5 (00:04→23:14)
[2019-01-18] MEDS: IPRATROPIUM NEB FS 0.5 MG/2.5 ML AMPUL.NEB NEB SCH ×4 (01:07→20:06)
[2019-01-18] MEDS: ALBUTEROL FS 2.5 MG/3 ML VIAL.NEB NEB SCH ×4 (01:07→20:06)
[2019-01-18] MEDS: BLOOD SUGAR DIAGNOSTIC 1 EACH STRIP IN SCH ×2 (05:15→17:20)
[2019-01-18] MEDS: GLUCERNA 1.2 1,000 ML BOTTLE GT PRN (05:15)
[2019-01-18] MEDS: OMEPRAZOLE DR 20 MG GT SCH (05:15)
[2019-01-18] MEDS: POLYETHYLENE GLYCOL 3350 17 GM POWD.PACK GT PRN (05:15)
[2019-01-18] MEDS: INSULIN LISPRO/ASPART 100 UNIT/ML CARTRIDGE SQ PRN ×2 (05:16→17:21)
[2019-01-18 08:02] VITALS: BP 135/78
[2019-01-18] MEDS: PROSTAT (PYXIS) 30 ML UDC GT SCH ×2 (08:24→16:49)
[2019-01-18] MEDS: METFORMIN 850 MG TABLET GT SCH ×2 (08:24→16:49)
[2019-01-18] MEDS: ASCORBIC ACID 500 MG TABLET GT SCH ×2 (08:24→16:49)
[2019-01-18] MEDS: BACLOFEN (10 MG) 10 MG TABLET GT SCH ×2 (08:24→20:47)
[2019-01-18] MEDS: DOCUSATE SODIUM LIQ 100 MG/10 ML UDC GT SCH ×2 (08:24→16:49)
[2019-01-18] MEDS: LEVETIRACETAM SOL (5 ML) 100 MG/ML UDC GT SCH ×2 (08:24→20:47)
[2019-01-18] MEDS: FERROUS SULFATE - FOR SA ONLY 330 MG/7.5 ML UDC GT SCH ×3 (08:24→16:49)
[2019-01-18] MEDS: POTASSIUM CHLORIDE 20 MEQ POWDER PACKET GT SCH (08:24)
[2019-01-18] MEDS: Z GUARD REMEDY 4 OZ OINT TP SCH ×2 (08:25→20:48)
[2019-01-18] MEDS: HEPARIN SODIUM, PORCINE 5000 UNITS/1 ML VIAL SQ SCH ×2 (08:25→20:48)
[2019-01-18] MEDS: HYDROGEN PEROXIDE 480 ML BOTTLE TP SCH ×2 (09:47→20:48)
[2019-01-18 20:39] VITALS: BP 126/79
[2019-01-18] MEDS: MULTIVIT W/MINERALS 1 TAB TABLET GT SCH (20:47)
[2019-01-18] MEDS: SENNOSIDES 8.6 MG TABLET GT SCH (21:02)
[2019-01-18] MEDS: BASAGLAR SQ SCH (21:02)
[2019-01-18] MEDS: [UNRECOGNIZED DRUG - OTHER] SQ SCH (21:02)
[2019-01-19] MEDS: ALBUTEROL FS 2.5 MG/3 ML VIAL.NEB NEB SCH ×4 (02:24→19:14)
[2019-01-19] MEDS: IPRATROPIUM NEB FS 0.5 MG/2.5 ML AMPUL.NEB NEB SCH ×4 (02:24→19:14)
[2019-01-19] MEDS: OMEPRAZOLE DR 20 MG GT SCH (05:28)
[2019-01-19] MEDS: GLUCERNA 1.2 1,000 ML BOTTLE GT PRN (05:28)
[2019-01-19] MEDS: BLOOD SUGAR DIAGNOSTIC 1 EACH STRIP IN SCH ×2 (05:28→18:23)
[2019-01-19] MEDS: POLYVINYL ALCOHOL 15 ML BOTTLE EACHEYE SCH ×4 (05:28→23:10)
[2019-01-19] MEDS: INSULIN LISPRO/ASPART 100 UNIT/ML CARTRIDGE SQ PRN ×2 (05:29→18:24)
--- NOTE | 2019-01-19 06:15 | NUR ---
RT NOTE PT REC'D TRACHED ON [place] VENT ON AC MODE. NO RESP DISTRESS OR SOB NOTED. TRACH IS PATENT AND SECURED. SX'D FOR MOD AMT OF PALE YELLOW SECRETIONS. ALARMS ARE SET AND AUDIBLE. VENT PLUGGED INTO RED OUTLET. AMBU BAG BEDSIDE. Addendum: 01/19/19 at 0615 by PETER MARADIAGA RT Amended: Links added.
[2019-01-19] MEDS: HYDROGEN PEROXIDE 480 ML BOTTLE TP SCH ×2 (07:11→21:44)
[2019-01-19 07:45] VITALS: BP 113/71
[2019-01-19] MEDS: HEPARIN SODIUM, PORCINE 5000 UNITS/1 ML VIAL SQ SCH ×2 (08:32→21:51)
[2019-01-19] MEDS: METFORMIN 850 MG TABLET GT SCH ×2 (08:32→16:51)
[2019-01-19] MEDS: PROSTAT (PYXIS) 30 ML UDC GT SCH ×2 (08:32→16:51)
[2019-01-19] MEDS: LEVETIRACETAM SOL (5 ML) 100 MG/ML UDC GT SCH ×2 (08:32→21:44)
[2019-01-19] MEDS: ASCORBIC ACID 500 MG TABLET GT SCH ×2 (08:32→16:51)
[2019-01-19] MEDS: BACLOFEN (10 MG) 10 MG TABLET GT SCH ×2 (08:32→21:44)
[2019-01-19] MEDS: POTASSIUM CHLORIDE 20 MEQ POWDER PACKET GT SCH (08:32)
[2019-01-19] MEDS: FERROUS SULFATE - FOR SA ONLY 330 MG/7.5 ML UDC GT SCH ×3 (08:32→16:51)
[2019-01-19] MEDS: DOCUSATE SODIUM LIQ 100 MG/10 ML UDC GT SCH ×2 (08:32→16:51)
[2019-01-19] MEDS: Z GUARD REMEDY 4 OZ OINT TP SCH ×2 (09:00→21:44)
--- NOTE | 2019-01-19 09:33 | NUR ---
RT PATIENT REC'D TRACHED ON ORDERED MODALITY TOLERATED WELL. ALL SAFETY MEASURES CHECKED. TRACH PATENT AND SECURE IN PROPER POSITION. TRACH CARE DONE. TRACH TIES, GAUZE AND INNER CANNULA CHANGED. NO SOB OR DISTRESS NOTED. WILL CONTINUE CURRENT PLAN OF CARE. Addendum: 01/19/19 at 0933 by MERISSA BHATT RT Amended: Links added.
[2019-01-19 19:55] VITALS: BP 101/70
[2019-01-19] MEDS: SENNOSIDES 8.6 MG TABLET GT SCH (21:44)
[2019-01-19] MEDS: MULTIVIT W/MINERALS 1 TAB TABLET GT SCH (21:44)
[2019-01-19] MEDS: [UNRECOGNIZED DRUG - OTHER] SQ SCH (21:51)
[2019-01-19] MEDS: BASAGLAR SQ SCH (21:51)
[2019-01-20] MEDS: ALBUTEROL FS 2.5 MG/3 ML VIAL.NEB NEB SCH ×4 (01:44→19:53)
[2019-01-20] MEDS: IPRATROPIUM NEB FS 0.5 MG/2.5 ML AMPUL.NEB NEB SCH ×4 (01:44→19:53)
[2019-01-20] MEDS: POLYVINYL ALCOHOL 15 ML BOTTLE EACHEYE SCH ×3 (05:12→17:35)
[2019-01-20] MEDS: BLOOD SUGAR DIAGNOSTIC 1 EACH STRIP IN SCH ×2 (05:12→18:12)
[2019-01-20] MEDS: GLUCERNA 1.2 1,000 ML BOTTLE GT PRN (05:12)
[2019-01-20] MEDS: OMEPRAZOLE DR 20 MG GT SCH (05:12)
[2019-01-20 07:57] VITALS: BP 102/70
--- NOTE | 2019-01-20 08:13 | NUR ---
RT NOTE PT REC'D TRACHED ON MECHANICAL VENT ON CHARTED SETTINGS. NO RESP DISTRESS OR SOB NOTED AT THIS TIME. TRACH IS PATENT AND SECURED. SX'D FOR MODERATE AMT OF PALE YELLOW SECRETIONS. ALARMS ARE SET AND AUDIBLE. VENT PLUGGED INTO RED OUTLET. AMBU BAG BEDSIDE. Addendum: 01/20/19 at 0813 by ARIS CRUZ RT Amended: Links added.
[2019-01-20] MEDS: FERROUS SULFATE - FOR SA ONLY 330 MG/7.5 ML UDC GT SCH ×3 (08:36→17:35)
[2019-01-20] MEDS: METFORMIN 850 MG TABLET GT SCH ×2 (08:36→17:35)
[2019-01-20] MEDS: POTASSIUM CHLORIDE 20 MEQ POWDER PACKET GT SCH (08:36)
[2019-01-20] MEDS: DOCUSATE SODIUM LIQ 100 MG/10 ML UDC GT SCH ×2 (08:36→17:35)
[2019-01-20] MEDS: LEVETIRACETAM SOL (5 ML) 100 MG/ML UDC GT SCH ×2 (08:36→21:52)
[2019-01-20] MEDS: PROSTAT (PYXIS) 30 ML UDC GT SCH ×2 (08:37→17:35)
[2019-01-20] MEDS: ASCORBIC ACID 500 MG TABLET GT SCH ×2 (08:37→17:35)
[2019-01-20] MEDS: BACLOFEN (10 MG) 10 MG TABLET GT SCH ×2 (08:37→21:52)
[2019-01-20] MEDS: HEPARIN SODIUM, PORCINE 5000 UNITS/1 ML VIAL SQ SCH ×2 (08:50→21:53)
[2019-01-20] MEDS: Z GUARD REMEDY 4 OZ OINT TP SCH ×2 (09:00→21:53)
[2019-01-20] MEDS: HYDROGEN PEROXIDE 480 ML BOTTLE TP SCH ×2 (09:54→19:53)
[2019-01-20] MEDS: INSULIN LISPRO/ASPART 100 UNIT/ML CARTRIDGE SQ PRN (18:12)
[2019-01-20 19:47] VITALS: BP 114/76
[2019-01-20] MEDS: MULTIVIT W/MINERALS 1 TAB TABLET GT SCH (21:52)
[2019-01-20] MEDS: SENNOSIDES 8.6 MG TABLET GT SCH (21:53)
[2019-01-20] MEDS: BASAGLAR SQ SCH (21:54)
[2019-01-20] MEDS: [UNRECOGNIZED DRUG - OTHER] SQ SCH (21:54)
--- NOTE | 2019-01-20 23:34 | NUR ---
PATIENT RECEIVED ON TRACH TO VENT WITH SETTINGS OF AC 12, 500 Vt,, +5. SUCTIONED FOR MINIMAL, THIN, YELLOW SECRETIONS. GIVEN IN-LINE TREATMENTS WITH NO ADVERSE REACTIONS. AMBU BAG AT BEDSIDE. VENT ALARM AUDIBLE AND VISIBLE. VENT PLUGGED INTO RED OUTLET. Addendum: 01/20/19 at 2336 by WHITNEY KLEIN RT Amended: Links added.
[2019-01-21] MEDS: IPRATROPIUM NEB FS 0.5 MG/2.5 ML AMPUL.NEB NEB SCH ×4 (00:53→18:59)
[2019-01-21] MEDS: ALBUTEROL FS 2.5 MG/3 ML VIAL.NEB NEB SCH ×4 (00:53→18:59)
[2019-01-21] MEDS: POLYVINYL ALCOHOL 15 ML BOTTLE EACHEYE SCH ×4 (05:35→17:59)
[2019-01-21] MEDS: BLOOD SUGAR DIAGNOSTIC 1 EACH STRIP IN SCH ×2 (05:35→17:59)
[2019-01-21] MEDS: OMEPRAZOLE DR 20 MG GT SCH (05:35)
[2019-01-21] MEDS: INSULIN LISPRO/ASPART 100 UNIT/ML CARTRIDGE SQ PRN ×2 (05:36→18:01)
[2019-01-21 07:36] VITALS: BP 111/70
[2019-01-21] MEDS: FERROUS SULFATE - FOR SA ONLY 330 MG/7.5 ML UDC GT SCH ×3 (08:31→16:45)
[2019-01-21] MEDS: METFORMIN 850 MG TABLET GT SCH ×2 (08:31→16:45)
[2019-01-21] MEDS: DOCUSATE SODIUM LIQ 100 MG/10 ML UDC GT SCH ×2 (08:31→16:45)
[2019-01-21] MEDS: PROSTAT (PYXIS) 30 ML UDC GT SCH ×2 (08:31→16:45)
[2019-01-21] MEDS: LEVETIRACETAM SOL (5 ML) 100 MG/ML UDC GT SCH ×2 (08:31→21:30)
[2019-01-21] MEDS: POTASSIUM CHLORIDE 20 MEQ POWDER PACKET GT SCH (08:31)
[2019-01-21] MEDS: ASCORBIC ACID 500 MG TABLET GT SCH ×2 (08:31→16:45)
[2019-01-21] MEDS: BACLOFEN (10 MG) 10 MG TABLET GT SCH ×2 (08:31→21:30)
--- NOTE | 2019-01-21 08:33 | NUR ---
RT NOTE PT REC'D TRACHED ON MECHANICAL VENT ON CHARTED SETTINGS. NO RESP DISTRESS OR SOB NOTED AT THIS TIME. TRACH IS PATENT AND SECURED. SX'D FOR MODERATE AMOUNT OF PALE YELLOW SECRETIONS. ALARMS ARE SET AND AUDIBLE. VENT PLUGGED INTO RED OUTLET. AMBU BAG BEDSIDE. Addendum: 01/21/19 at 0834 by ARIS CRUZ RT Amended: Links added.
[2019-01-21] MEDS: HEPARIN SODIUM, PORCINE 5000 UNITS/1 ML VIAL SQ SCH ×2 (08:34→21:32)
[2019-01-21] MEDS: HYDROGEN PEROXIDE 480 ML BOTTLE TP SCH ×2 (09:00→21:00)
[2019-01-21] MEDS: Z GUARD REMEDY 4 OZ OINT TP SCH ×2 (09:00→21:33)
[2019-01-21 21:20] VITALS: BP 117/84
[2019-01-21] MEDS: MULTIVIT W/MINERALS 1 TAB TABLET GT SCH (21:30)
[2019-01-21] MEDS: BASAGLAR SQ SCH (21:33)
[2019-01-21] MEDS: [UNRECOGNIZED DRUG - OTHER] SQ SCH (21:33)
[2019-01-21] MEDS: SENNOSIDES 8.6 MG TABLET GT SCH (21:33)
[2019-01-22] MEDS: POLYVINYL ALCOHOL 15 ML BOTTLE EACHEYE SCH ×4 (00:15→18:33)
[2019-01-22] MEDS: ALBUTEROL FS 2.5 MG/3 ML VIAL.NEB NEB SCH ×4 (00:54→19:19)
[2019-01-22] MEDS: IPRATROPIUM NEB FS 0.5 MG/2.5 ML AMPUL.NEB NEB SCH ×4 (00:54→19:19)
[2019-01-22] MEDS: OMEPRAZOLE DR 20 MG GT SCH (05:31)
[2019-01-22] MEDS: BLOOD SUGAR DIAGNOSTIC 1 EACH STRIP IN SCH ×2 (05:31→18:33)
[2019-01-22] MEDS: INSULIN LISPRO/ASPART 100 UNIT/ML CARTRIDGE SQ PRN ×2 (05:31→18:35)
[2019-01-22] MEDS: GLUCERNA 1.2 1,000 ML BOTTLE GT PRN (05:35)
[2019-01-22 07:44] VITALS: BP 108/73
[2019-01-22] MEDS: BACLOFEN (10 MG) 10 MG TABLET GT SCH ×2 (08:16→20:07)
[2019-01-22] MEDS: METFORMIN 850 MG TABLET GT SCH ×2 (08:16→16:31)
[2019-01-22] MEDS: DOCUSATE SODIUM LIQ 100 MG/10 ML UDC GT SCH ×2 (08:16→16:31)
[2019-01-22] MEDS: ASCORBIC ACID 500 MG TABLET GT SCH ×2 (08:16→16:32)
[2019-01-22] MEDS: LEVETIRACETAM SOL (5 ML) 100 MG/ML UDC GT SCH ×2 (08:16→20:07)
[2019-01-22] MEDS: POTASSIUM CHLORIDE 20 MEQ POWDER PACKET GT SCH (08:16)
[2019-01-22] MEDS: FERROUS SULFATE - FOR SA ONLY 330 MG/7.5 ML UDC GT SCH ×3 (08:16→16:31)
[2019-01-22] MEDS: PROSTAT (PYXIS) 30 ML UDC GT SCH ×2 (08:16→16:31)
[2019-01-22] MEDS: HEPARIN SODIUM, PORCINE 5000 UNITS/1 ML VIAL SQ SCH ×2 (08:17→20:09)
[2019-01-22] MEDS: HYDROGEN PEROXIDE 480 ML BOTTLE TP SCH ×2 (09:00→21:29)
[2019-01-22] MEDS: Z GUARD REMEDY 4 OZ OINT TP SCH ×2 (09:00→20:09)
--- NOTE | 2019-01-22 18:39 | NUR ---
RT Pt on mech vent and tolerating settings well. Pt is stable. No respiratory distress or sob noted t/o shift. Addendum: 01/22/19 at 1839 by ANJUM FONG RT Amended: Links added.
--- NOTE | 2019-01-22 20:00 | NUR ---
RN NOTES Seen by Mya Rodgers NP, with no new orders.
[2019-01-22] MEDS: MULTIVIT W/MINERALS 1 TAB TABLET GT SCH (20:07)
[2019-01-22 20:40] VITALS: BP 96/51
[2019-01-22] MEDS: SENNOSIDES 8.6 MG TABLET GT SCH (22:22)
[2019-01-22] MEDS: [UNRECOGNIZED DRUG - OTHER] SQ SCH (22:24)
[2019-01-22] MEDS: BASAGLAR SQ SCH (22:24)
[2019-01-23] MEDS: POLYVINYL ALCOHOL 15 ML BOTTLE EACHEYE SCH ×5 (00:11→23:32)
[2019-01-23] MEDS: IPRATROPIUM NEB FS 0.5 MG/2.5 ML AMPUL.NEB NEB SCH ×4 (00:38→19:46)
[2019-01-23] MEDS: ALBUTEROL FS 2.5 MG/3 ML VIAL.NEB NEB SCH ×4 (00:38→19:46)
[2019-01-23] MEDS: OMEPRAZOLE DR 20 MG GT SCH (05:09)
[2019-01-23] MEDS: GLUCERNA 1.2 1,000 ML BOTTLE GT PRN (05:10)
[2019-01-23] MEDS: BLOOD SUGAR DIAGNOSTIC 1 EACH STRIP IN SCH ×2 (06:15→18:00)
[2019-01-23] MEDS: INSULIN LISPRO/ASPART 100 UNIT/ML CARTRIDGE SQ PRN ×2 (06:15→19:03)
[2019-01-23 07:33] VITALS: BP 92/64
--- NOTE | 2019-01-23 08:28 | NUR ---
RT NOTE PT REC'D TRACHED ON MECHANICAL VENT ON CHARTED SETTINGS. NO RESP DISTRESS OR SOB NOTED AT THIS TIME. TRACH IS PATENT AND SECURED. SX'D FOR MODERATE AMOUNT OF PALE YELLOW SECRETIONS. ALARMS ARE SET AND AUDIBLE. VENT PLUGGED INTO RED OUTLET. AMBU BAG BEDSIDE. Addendum: 01/23/19 at 0828 by ARIS CRUZ RT Amended: Links added.
[2019-01-23] MEDS: DOCUSATE SODIUM LIQ 100 MG/10 ML UDC GT SCH ×2 (08:34→17:08)
[2019-01-23] MEDS: LEVETIRACETAM SOL (5 ML) 100 MG/ML UDC GT SCH ×2 (08:34→20:39)
[2019-01-23] MEDS: METFORMIN 850 MG TABLET GT SCH ×2 (08:34→17:08)
[2019-01-23] MEDS: PROSTAT (PYXIS) 30 ML UDC GT SCH ×2 (08:34→17:08)
[2019-01-23] MEDS: ASCORBIC ACID 500 MG TABLET GT SCH ×2 (08:34→17:08)
[2019-01-23] MEDS: BACLOFEN (10 MG) 10 MG TABLET GT SCH ×2 (08:34→20:39)
[2019-01-23] MEDS: FERROUS SULFATE - FOR SA ONLY 330 MG/7.5 ML UDC GT SCH ×3 (08:34→17:08)
[2019-01-23] MEDS: HEPARIN SODIUM, PORCINE 5000 UNITS/1 ML VIAL SQ SCH ×2 (08:34→21:48)
[2019-01-23] MEDS: POTASSIUM CHLORIDE 20 MEQ POWDER PACKET GT SCH (08:34)
[2019-01-23] MEDS: Z GUARD REMEDY 4 OZ OINT TP SCH ×2 (09:00→20:39)
[2019-01-23] MEDS: HYDROGEN PEROXIDE 480 ML BOTTLE TP SCH ×2 (09:00→20:39)
[2019-01-23] MEDS: MULTIVIT W/MINERALS 1 TAB TABLET GT SCH (20:39)
[2019-01-23 20:43] VITALS: BP 98/62
[2019-01-23] MEDS: SENNOSIDES 8.6 MG TABLET GT SCH (21:48)
[2019-01-23] MEDS: [UNRECOGNIZED DRUG - OTHER] SQ SCH (21:50)
[2019-01-23] MEDS: BASAGLAR SQ SCH (21:50)
[2019-01-24] MEDS: ALBUTEROL FS 2.5 MG/3 ML VIAL.NEB NEB SCH ×4 (01:28→20:23)
[2019-01-24] MEDS: IPRATROPIUM NEB FS 0.5 MG/2.5 ML AMPUL.NEB NEB SCH ×4 (01:28→20:23)
[2019-01-24] MEDS: GLUCERNA 1.2 1,000 ML BOTTLE GT PRN (04:02)
[2019-01-24] MEDS: OMEPRAZOLE DR 20 MG GT SCH (05:47)
[2019-01-24] MEDS: POLYVINYL ALCOHOL 15 ML BOTTLE EACHEYE SCH ×3 (05:47→17:01)
[2019-01-24] MEDS: BLOOD SUGAR DIAGNOSTIC 1 EACH STRIP IN SCH ×2 (05:48→18:37)
[2019-01-24] MEDS: INSULIN LISPRO/ASPART 100 UNIT/ML CARTRIDGE SQ PRN ×2 (05:50→18:37)
[2019-01-24 07:51] VITALS: BP 151/82
[2019-01-24] MEDS: METFORMIN 850 MG TABLET GT SCH ×2 (09:00→17:01)
[2019-01-24] MEDS: PROSTAT (PYXIS) 30 ML UDC GT SCH ×2 (09:00→17:01)
[2019-01-24] MEDS: ASCORBIC ACID 500 MG TABLET GT SCH ×2 (09:00→17:01)
[2019-01-24] MEDS: Z GUARD REMEDY 4 OZ OINT TP SCH ×2 (09:00→20:22)
[2019-01-24] MEDS: DOCUSATE SODIUM LIQ 100 MG/10 ML UDC GT SCH ×2 (09:00→17:01)
[2019-01-24] MEDS: POTASSIUM CHLORIDE 20 MEQ POWDER PACKET GT SCH (09:00)
[2019-01-24] MEDS: LEVETIRACETAM SOL (5 ML) 100 MG/ML UDC GT SCH ×2 (09:00→20:21)
[2019-01-24] MEDS: HYDROGEN PEROXIDE 480 ML BOTTLE TP SCH ×2 (09:00→20:43)
[2019-01-24] MEDS: HEPARIN SODIUM, PORCINE 5000 UNITS/1 ML VIAL SQ SCH ×2 (09:00→20:22)
[2019-01-24] MEDS: FERROUS SULFATE - FOR SA ONLY 330 MG/7.5 ML UDC GT SCH ×3 (09:00→17:01)
[2019-01-24] MEDS: BACLOFEN (10 MG) 10 MG TABLET GT SCH ×2 (09:00→20:21)
[2019-01-24 20:04] VITALS: BP 96/66
[2019-01-24] MEDS: MULTIVIT W/MINERALS 1 TAB TABLET GT SCH (20:21)
[2019-01-24] MEDS: SENNOSIDES 8.6 MG TABLET GT SCH (21:47)
[2019-01-24] MEDS: [UNRECOGNIZED DRUG - OTHER] SQ SCH (21:48)
[2019-01-24] MEDS: BASAGLAR SQ SCH (21:48)
[2019-01-25] MEDS: POLYVINYL ALCOHOL 15 ML BOTTLE EACHEYE SCH ×4 (00:08→18:23)
[2019-01-25] MEDS: ALBUTEROL FS 2.5 MG/3 ML VIAL.NEB NEB SCH ×4 (01:42→20:08)
[2019-01-25] MEDS: IPRATROPIUM NEB FS 0.5 MG/2.5 ML AMPUL.NEB NEB SCH ×4 (01:42→20:08)
[2019-01-25] MEDS: OMEPRAZOLE DR 20 MG GT SCH (05:00)
[2019-01-25] MEDS: GLUCERNA 1.2 1,000 ML BOTTLE GT PRN (05:01)
[2019-01-25] MEDS: BLOOD SUGAR DIAGNOSTIC 1 EACH STRIP IN SCH ×2 (06:02→18:23)
[2019-01-25] MEDS: INSULIN LISPRO/ASPART 100 UNIT/ML CARTRIDGE SQ PRN ×2 (06:02→18:23)
[2019-01-25 07:32] VITALS: BP 94/65
[2019-01-25] MEDS: HYDROGEN PEROXIDE 480 ML BOTTLE TP SCH ×2 (09:00→21:21)
[2019-01-25] MEDS: METFORMIN 850 MG TABLET GT SCH ×2 (09:04→17:00)
[2019-01-25] MEDS: ASCORBIC ACID 500 MG TABLET GT SCH ×2 (09:04→17:00)
[2019-01-25] MEDS: LEVETIRACETAM SOL (5 ML) 100 MG/ML UDC GT SCH ×2 (09:04→21:20)
[2019-01-25] MEDS: FERROUS SULFATE - FOR SA ONLY 330 MG/7.5 ML UDC GT SCH ×3 (09:04→17:00)
[2019-01-25] MEDS: POTASSIUM CHLORIDE 20 MEQ POWDER PACKET GT SCH (09:04)
[2019-01-25] MEDS: DOCUSATE SODIUM LIQ 100 MG/10 ML UDC GT SCH ×2 (09:04→17:00)
[2019-01-25] MEDS: BACLOFEN (10 MG) 10 MG TABLET GT SCH ×2 (09:04→21:20)
[2019-01-25] MEDS: PROSTAT (PYXIS) 30 ML UDC GT SCH ×2 (09:04→17:00)
[2019-01-25] MEDS: Z GUARD REMEDY 4 OZ OINT TP SCH ×2 (09:05→21:21)
[2019-01-25] MEDS: HEPARIN SODIUM, PORCINE 5000 UNITS/1 ML VIAL SQ SCH ×2 (09:05→21:21)
--- NOTE | 2019-01-25 12:42 | NUR ---
Seen and examined by Dr. Dsouza, NNO given.
[2019-01-25 20:28] VITALS: BP 107/70
[2019-01-25] MEDS: MULTIVIT W/MINERALS 1 TAB TABLET GT SCH (21:20)
[2019-01-25] MEDS: SENNOSIDES 8.6 MG TABLET GT SCH (21:21)
[2019-01-25] MEDS: BASAGLAR SQ SCH (21:22)
[2019-01-25] MEDS: [UNRECOGNIZED DRUG - OTHER] SQ SCH (21:22)
--- NOTE | 2019-01-25 21:30 | NUR ---
RT NOTE PATIENT RECEIVED TRACH ON MECHANICAL VENTILATION. AWAKE/ALERT. AMBU BAG/BACK UP TRACH @ BEDSIDE. TX GIVEN, NO ADVERSE REACTIONS NOTED. ALARMS ON AND AUDIBLE. NO DISTRESS NOTED. PATIENT STABLE. WILL MONITOR. Addendum: 01/25/19 at 2131 by ABIOLA COMBS RT Amended: Links added.
[2019-01-26] MEDS: POLYVINYL ALCOHOL 15 ML BOTTLE EACHEYE SCH ×5 (00:37→23:33)
[2019-01-26] MEDS: IPRATROPIUM NEB FS 0.5 MG/2.5 ML AMPUL.NEB NEB SCH ×4 (02:03→19:24)
[2019-01-26] MEDS: ALBUTEROL FS 2.5 MG/3 ML VIAL.NEB NEB SCH ×4 (02:03→19:24)
[2019-01-26] MEDS: GLUCERNA 1.2 1,000 ML BOTTLE GT PRN ×2 (04:53→21:56)
[2019-01-26] MEDS: OMEPRAZOLE DR 20 MG GT SCH (05:43)
[2019-01-26] MEDS: INSULIN LISPRO/ASPART 100 UNIT/ML CARTRIDGE SQ PRN (05:43)
[2019-01-26] MEDS: BLOOD SUGAR DIAGNOSTIC 1 EACH STRIP IN SCH ×2 (05:43→18:27)
[2019-01-26 07:37] VITALS: BP 102/66
[2019-01-26] MEDS: METFORMIN 850 MG TABLET GT SCH ×2 (08:57→17:00)
[2019-01-26] MEDS: POTASSIUM CHLORIDE 20 MEQ POWDER PACKET GT SCH (08:57)
[2019-01-26] MEDS: DOCUSATE SODIUM LIQ 100 MG/10 ML UDC GT SCH ×2 (08:57→17:00)
[2019-01-26] MEDS: LEVETIRACETAM SOL (5 ML) 100 MG/ML UDC GT SCH ×2 (08:57→20:05)
[2019-01-26] MEDS: ASCORBIC ACID 500 MG TABLET GT SCH ×2 (08:57→17:00)
[2019-01-26] MEDS: BACLOFEN (10 MG) 10 MG TABLET GT SCH ×2 (08:57→20:05)
[2019-01-26] MEDS: FERROUS SULFATE - FOR SA ONLY 330 MG/7.5 ML UDC GT SCH ×3 (08:57→17:00)
[2019-01-26] MEDS: PROSTAT (PYXIS) 30 ML UDC GT SCH ×2 (08:57→17:00)
[2019-01-26] MEDS: Z GUARD REMEDY 4 OZ OINT TP SCH ×2 (08:58→20:05)
[2019-01-26] MEDS: HEPARIN SODIUM, PORCINE 5000 UNITS/1 ML VIAL SQ SCH ×2 (08:58→20:05)
[2019-01-26] MEDS: HYDROGEN PEROXIDE 480 ML BOTTLE TP SCH ×2 (09:00→20:05)
--- NOTE | 2019-01-26 17:24 | NUR ---
RT NOTE PT REMAINS MECHANICALLY VENTILATED VIA CUFFED TRACHEOSTOMY TUBE. CUFF INFLATED. TRACH TUBE MIDLINE AND SECURE. VENTILATOR SETTINGS PRESCRIBED. ALARMS SET PER PROTOCOL AND AUDIBLE. AMBU BAG AT BED SIDE. VENT PLUGGED IN TO RED OUTLET. NO DISTRESS NOTED. Addendum: 01/26/19 at 1724 by VERÓNICA JUNIOR RT Amended: Links added.
[2019-01-26 19:55] VITALS: BP 104/71
[2019-01-26] MEDS: MULTIVIT W/MINERALS 1 TAB TABLET GT SCH (20:05)
[2019-01-26] MEDS: SENNOSIDES 8.6 MG TABLET GT SCH (21:30)
[2019-01-26] MEDS: [UNRECOGNIZED DRUG - OTHER] SQ SCH (21:53)
[2019-01-26] MEDS: BASAGLAR SQ SCH (21:53)
[2019-01-27] MEDS: IPRATROPIUM NEB FS 0.5 MG/2.5 ML AMPUL.NEB NEB SCH ×4 (01:03→19:53)
[2019-01-27] MEDS: ALBUTEROL FS 2.5 MG/3 ML VIAL.NEB NEB SCH ×4 (01:03→19:53)
[2019-01-27] MEDS: BLOOD SUGAR DIAGNOSTIC 1 EACH STRIP IN SCH ×2 (05:29→18:07)
[2019-01-27] MEDS: OMEPRAZOLE DR 20 MG GT SCH (05:29)
[2019-01-27] MEDS: POLYVINYL ALCOHOL 15 ML BOTTLE EACHEYE SCH ×3 (05:29→17:30)
[2019-01-27 07:57] VITALS: BP 107/78
[2019-01-27] MEDS: Z GUARD REMEDY 4 OZ OINT TP SCH ×2 (09:00→20:03)
[2019-01-27] MEDS: HYDROGEN PEROXIDE 480 ML BOTTLE TP SCH ×2 (09:00→21:00)
[2019-01-27] MEDS: HEPARIN SODIUM, PORCINE 5000 UNITS/1 ML VIAL SQ SCH ×2 (09:00→20:03)
[2019-01-27] MEDS: LEVETIRACETAM SOL (5 ML) 100 MG/ML UDC GT SCH ×2 (09:41→20:01)
[2019-01-27] MEDS: METFORMIN 850 MG TABLET GT SCH ×2 (09:41→17:30)
[2019-01-27] MEDS: PROSTAT (PYXIS) 30 ML UDC GT SCH ×2 (09:41→17:30)
[2019-01-27] MEDS: DOCUSATE SODIUM LIQ 100 MG/10 ML UDC GT SCH ×2 (09:41→17:30)
[2019-01-27] MEDS: BACLOFEN (10 MG) 10 MG TABLET GT SCH ×2 (09:41→20:01)
[2019-01-27] MEDS: FERROUS SULFATE - FOR SA ONLY 330 MG/7.5 ML UDC GT SCH ×3 (09:41→17:30)
[2019-01-27] MEDS: ASCORBIC ACID 500 MG TABLET GT SCH ×2 (09:41→17:30)
[2019-01-27] MEDS: POTASSIUM CHLORIDE 20 MEQ POWDER PACKET GT SCH (09:41)
[2019-01-27] MEDS: INSULIN LISPRO/ASPART 100 UNIT/ML CARTRIDGE SQ PRN (18:18)
[2019-01-27 19:41] VITALS: BP 131/81
[2019-01-27] MEDS: MULTIVIT W/MINERALS 1 TAB TABLET GT SCH (20:01)
[2019-01-27] MEDS: SENNOSIDES 8.6 MG TABLET GT SCH (21:07)
[2019-01-27] MEDS: BASAGLAR SQ SCH (21:09)
[2019-01-27] MEDS: [UNRECOGNIZED DRUG - OTHER] SQ SCH (21:09)
[2019-01-28] MEDS: POLYVINYL ALCOHOL 15 ML BOTTLE EACHEYE SCH ×4 (00:41→17:51)
[2019-01-28] MEDS: ALBUTEROL FS 2.5 MG/3 ML VIAL.NEB NEB SCH ×4 (01:30→20:04)
[2019-01-28] MEDS: IPRATROPIUM NEB FS 0.5 MG/2.5 ML AMPUL.NEB NEB SCH ×4 (01:30→20:04)
[2019-01-28] MEDS: OMEPRAZOLE DR 20 MG GT SCH (05:01)
[2019-01-28] MEDS: BLOOD SUGAR DIAGNOSTIC 1 EACH STRIP IN SCH ×2 (05:01→17:51)
[2019-01-28] MEDS: INSULIN LISPRO/ASPART 100 UNIT/ML CARTRIDGE SQ PRN (05:02)
[2019-01-28] MEDS: GLUCERNA 1.2 1,000 ML BOTTLE GT PRN (05:05)
[2019-01-28 07:40] VITALS: BP 114/68
--- NOTE | 2019-01-28 08:29 | NUR ---
RT NOTE PT REC'D TRACHED ON MECHANICAL VENT ON CHARTED SETTINGS. NO RESP DISTRESS OR SOB NOTED AT THIS TIME. TRACH IS PATENT AND SECURED. SX'D FOR MODERATE AMOUNT OF PALE YELLOW SECRETIONS. ALARMS ARE SET AND AUDIBLE. VENT PLUGGED INTO RED OUTLET. AMBU BAG BEDSIDE. Addendum: 01/28/19 at 0830 by ARIS CRUZ RT Amended: Links added.
[2019-01-28] MEDS: ASCORBIC ACID 500 MG TABLET GT SCH ×2 (09:00→16:46)
[2019-01-28] MEDS: POTASSIUM CHLORIDE 20 MEQ POWDER PACKET GT SCH (09:00)
[2019-01-28] MEDS: HYDROGEN PEROXIDE 480 ML BOTTLE TP SCH ×2 (09:00→21:00)
[2019-01-28] MEDS: METFORMIN 850 MG TABLET GT SCH ×2 (09:00→16:46)
[2019-01-28] MEDS: BACLOFEN (10 MG) 10 MG TABLET GT SCH ×2 (09:00→20:07)
[2019-01-28] MEDS: HEPARIN SODIUM, PORCINE 5000 UNITS/1 ML VIAL SQ SCH ×2 (09:00→20:09)
[2019-01-28] MEDS: DOCUSATE SODIUM LIQ 100 MG/10 ML UDC GT SCH ×2 (09:00→16:46)
[2019-01-28] MEDS: LEVETIRACETAM SOL (5 ML) 100 MG/ML UDC GT SCH ×2 (09:00→20:07)
[2019-01-28] MEDS: FERROUS SULFATE - FOR SA ONLY 330 MG/7.5 ML UDC GT SCH ×3 (09:00→16:46)
[2019-01-28] MEDS: PROSTAT (PYXIS) 30 ML UDC GT SCH ×2 (09:00→16:46)
[2019-01-28] MEDS: Z GUARD REMEDY 4 OZ OINT TP SCH ×2 (09:00→20:10)
[2019-01-28 19:47] VITALS: BP 103/70
[2019-01-28] MEDS: MULTIVIT W/MINERALS 1 TAB TABLET GT SCH (20:08)
[2019-01-28] MEDS: SENNOSIDES 8.6 MG TABLET GT SCH (21:20)
[2019-01-28] MEDS: BASAGLAR SQ SCH (21:21)
[2019-01-28] MEDS: [UNRECOGNIZED DRUG - OTHER] SQ SCH (21:21)
[2019-01-29] MEDS: POLYVINYL ALCOHOL 15 ML BOTTLE EACHEYE SCH ×5 (01:00→23:45)
[2019-01-29] MEDS: GLUCERNA 1.2 1,000 ML BOTTLE GT PRN (01:00)
[2019-01-29] MEDS: IPRATROPIUM NEB FS 0.5 MG/2.5 ML AMPUL.NEB NEB SCH ×4 (01:11→19:08)
[2019-01-29] MEDS: ALBUTEROL FS 2.5 MG/3 ML VIAL.NEB NEB SCH ×4 (01:11→19:08)
[2019-01-29] MEDS: INSULIN LISPRO/ASPART 100 UNIT/ML CARTRIDGE SQ PRN ×2 (05:03→17:57)
[2019-01-29] MEDS: OMEPRAZOLE DR 20 MG GT SCH (05:03)
[2019-01-29] MEDS: BLOOD SUGAR DIAGNOSTIC 1 EACH STRIP IN SCH ×2 (05:03→17:53)
[2019-01-29] MEDS: DOCUSATE SODIUM LIQ 100 MG/10 ML UDC GT SCH ×2 (08:21→16:55)
[2019-01-29] MEDS: ASCORBIC ACID 500 MG TABLET GT SCH ×2 (08:21→16:56)
[2019-01-29] MEDS: BACLOFEN (10 MG) 10 MG TABLET GT SCH ×2 (08:21→20:05)
[2019-01-29] MEDS: FERROUS SULFATE - FOR SA ONLY 330 MG/7.5 ML UDC GT SCH ×3 (08:21→16:55)
[2019-01-29] MEDS: METFORMIN 850 MG TABLET GT SCH ×2 (08:21→16:56)
[2019-01-29] MEDS: LEVETIRACETAM SOL (5 ML) 100 MG/ML UDC GT SCH ×2 (08:21→20:05)
[2019-01-29] MEDS: PROSTAT (PYXIS) 30 ML UDC GT SCH ×2 (08:21→16:56)
[2019-01-29] MEDS: POTASSIUM CHLORIDE 20 MEQ POWDER PACKET GT SCH (08:21)
[2019-01-29] MEDS: HEPARIN SODIUM, PORCINE 5000 UNITS/1 ML VIAL SQ SCH ×2 (08:22→20:09)
[2019-01-29] MEDS: Z GUARD REMEDY 4 OZ OINT TP SCH ×2 (09:00→20:06)
[2019-01-29] MEDS: HYDROGEN PEROXIDE 480 ML BOTTLE TP SCH ×2 (09:00→19:09)
[2019-01-29 09:45] VITALS: BP 104/74
[2019-01-29] MEDS: MULTIVIT W/MINERALS 1 TAB TABLET GT SCH (20:08)
[2019-01-29] MEDS: SENNOSIDES 8.6 MG TABLET GT SCH (21:10)
[2019-01-29] MEDS: BASAGLAR SQ SCH (21:19)
[2019-01-29] MEDS: [UNRECOGNIZED DRUG - OTHER] SQ SCH (21:19)
[2019-01-29 21:53] VITALS: BP 130/82
[2019-01-30] MEDS: IPRATROPIUM NEB FS 0.5 MG/2.5 ML AMPUL.NEB NEB SCH ×4 (00:45→20:05)
[2019-01-30] MEDS: ALBUTEROL FS 2.5 MG/3 ML VIAL.NEB NEB SCH ×4 (00:45→20:05)
--- NOTE | 2019-01-30 04:56 | NUR ---
PATIENT RECEIVED ON TRACH TO VENT WITH SETTINGS OF AC 12, 500 VT, 30%, +0. SUCTIONED WITH LAVAGE FOR MINIMAL, THIN, YELLOW SECRETIONS. GIVEN IN-LINE TREATMENTS WITH NO ADVERSE REACTIONS. AMBU BAG AT BEDSIDE. VENT ALARM AUDIBLE AND VISIBLE. VENT PLUGGED INTO RED OUTLET. Addendum: 01/30/19 at 0459 by WHITNEY KLEIN RT Amended: Links added.
[2019-01-30] MEDS: POLYVINYL ALCOHOL 15 ML BOTTLE EACHEYE SCH ×3 (05:09→17:09)
[2019-01-30] MEDS: OMEPRAZOLE DR 20 MG GT SCH (05:09)
[2019-01-30] MEDS: BLOOD SUGAR DIAGNOSTIC 1 EACH STRIP IN SCH ×2 (05:09→17:09)
[2019-01-30] MEDS: INSULIN LISPRO/ASPART 100 UNIT/ML CARTRIDGE SQ PRN (05:11)
[2019-01-30] MEDS: GLUCERNA 1.2 1,000 ML BOTTLE GT PRN (06:55)
[2019-01-30] MEDS: HYDROGEN PEROXIDE 480 ML BOTTLE TP SCH ×2 (06:59→20:05)
[2019-01-30] MEDS: DOCUSATE SODIUM LIQ 100 MG/10 ML UDC GT SCH ×2 (08:11→17:07)
[2019-01-30] MEDS: FERROUS SULFATE - FOR SA ONLY 330 MG/7.5 ML UDC GT SCH ×3 (08:11→17:07)
[2019-01-30] MEDS: LEVETIRACETAM SOL (5 ML) 100 MG/ML UDC GT SCH ×2 (08:13→21:47)
[2019-01-30] MEDS: METFORMIN 850 MG TABLET GT SCH ×2 (08:13→17:08)
[2019-01-30] MEDS: POTASSIUM CHLORIDE 20 MEQ POWDER PACKET GT SCH (08:20)
--- NOTE | 2019-01-30 08:20 | NUR ---
RT PATIENT REC'D TRACHED ON [facility] VENT TUTU WELL. PATIENT SUCTIONED WITH SMALL AMT OF PALE SEMITHICK SECRETIONS. TRACH SECURE AND PATENT. INNER CANULA CHANGED. VENT ALARMS CHECKED + AUDIBLE. BACK UP TRACH AND AMBU BAG AT [facility]. PATIENT IN NO DISTRESS AT THIS TIME. CONT CURRENT PLAN OF CARE. Addendum: 01/30/19 at 1449 by MERISSA BHATT RT Amended: Links added.
[2019-01-30] MEDS: BACLOFEN (10 MG) 10 MG TABLET GT SCH ×2 (08:21→21:48)
[2019-01-30] MEDS: PROSTAT (PYXIS) 30 ML UDC GT SCH ×2 (08:22→17:08)
[2019-01-30] MEDS: HEPARIN SODIUM, PORCINE 5000 UNITS/1 ML VIAL SQ SCH ×2 (08:25→21:51)
[2019-01-30] MEDS: Z GUARD REMEDY 4 OZ OINT TP SCH ×2 (08:26→21:51)
[2019-01-30] MEDS: ASCORBIC ACID 500 MG TABLET GT SCH ×2 (08:27→17:08)
--- NOTE | 2019-01-30 09:00 | NUR ---
Seen and examined by Dr. Alvarez, no new order given.
--- NOTE | 2019-01-30 19:37 | NUR ---
SUB ACUTE RN NURSE NOTE FOR CONTINUATION OF CARE, ASSESS AND PROVIDE MEDICATION VIA GTUBE. EXTENSIVE ASSISTANCE REQUIRING TURNING AND REPOSITION, SUCTION NEEDED. MONITORING FOR ANY CHANGES.
[2019-01-30 19:47] VITALS: BP 112/72
[2019-01-30 20:17] VITALS: BP 112/72
[2019-01-30] MEDS: MULTIVIT W/MINERALS 1 TAB TABLET GT SCH (21:50)
[2019-01-30] MEDS: SENNOSIDES 8.6 MG TABLET GT SCH (21:51)
[2019-01-30] MEDS: [UNRECOGNIZED DRUG - OTHER] SQ SCH (22:05)
[2019-01-30] MEDS: BASAGLAR SQ SCH (22:05)
--- NOTE | 2019-01-30 22:14 | NUR ---
BLOOD SUGAR CHECK AT 128
[2019-01-31] MEDS: POLYVINYL ALCOHOL 15 ML BOTTLE EACHEYE SCH ×5 (00:02→23:54)
[2019-01-31] MEDS: GLUCERNA 1.2 1,000 ML BOTTLE GT PRN (01:17)
[2019-01-31] MEDS: ALBUTEROL FS 2.5 MG/3 ML VIAL.NEB NEB SCH ×4 (01:49→20:00)
[2019-01-31] MEDS: IPRATROPIUM NEB FS 0.5 MG/2.5 ML AMPUL.NEB NEB SCH ×4 (01:49→20:00)
[2019-01-31] MEDS: BLOOD SUGAR DIAGNOSTIC 1 EACH STRIP IN SCH ×2 (06:17→18:30)
[2019-01-31] MEDS: OMEPRAZOLE DR 20 MG GT SCH (06:17)
[2019-01-31] MEDS: INSULIN LISPRO/ASPART 100 UNIT/ML CARTRIDGE SQ PRN (06:22)
[2019-01-31 07:47] VITALS: BP 112/70
[2019-01-31] MEDS: DOCUSATE SODIUM LIQ 100 MG/10 ML UDC GT SCH ×2 (08:04→16:56)
[2019-01-31] MEDS: METFORMIN 850 MG TABLET GT SCH ×2 (08:05→16:56)
[2019-01-31] MEDS: FERROUS SULFATE - FOR SA ONLY 330 MG/7.5 ML UDC GT SCH ×3 (08:05→16:56)
[2019-01-31] MEDS: PROSTAT (PYXIS) 30 ML UDC GT SCH ×2 (08:05→16:56)
[2019-01-31] MEDS: BACLOFEN (10 MG) 10 MG TABLET GT SCH ×2 (08:05→21:07)
[2019-01-31] MEDS: Z GUARD REMEDY 4 OZ OINT TP SCH ×2 (08:05→21:07)
[2019-01-31] MEDS: POTASSIUM CHLORIDE 20 MEQ POWDER PACKET GT SCH (08:05)
[2019-01-31] MEDS: HEPARIN SODIUM, PORCINE 5000 UNITS/1 ML VIAL SQ SCH ×2 (08:05→21:07)
[2019-01-31] MEDS: ASCORBIC ACID 500 MG TABLET GT SCH ×2 (08:05→16:56)
[2019-01-31] MEDS: LEVETIRACETAM SOL (5 ML) 100 MG/ML UDC GT SCH ×2 (08:05→21:07)
[2019-01-31] MEDS: HYDROGEN PEROXIDE 480 ML BOTTLE TP SCH ×2 (08:51→21:00)
--- NOTE | 2019-01-31 10:45 | NUR ---
Seen and examined by Dr. Dsouza, no new order given.
[2019-01-31 20:17] VITALS: BP 106/69
[2019-01-31] MEDS: MULTIVIT W/MINERALS 1 TAB TABLET GT SCH (21:07)
[2019-01-31] MEDS: SENNOSIDES 8.6 MG TABLET GT SCH (21:08)
[2019-01-31] MEDS: BASAGLAR SQ SCH (22:23)
[2019-01-31] MEDS: [UNRECOGNIZED DRUG - OTHER] SQ SCH (22:23)
[2019-02-01] MEDS: ALBUTEROL FS 2.5 MG/3 ML VIAL.NEB NEB SCH ×4 (01:40→20:11)
[2019-02-01] MEDS: IPRATROPIUM NEB FS 0.5 MG/2.5 ML AMPUL.NEB NEB SCH ×4 (01:40→20:11)
[2019-02-01] MEDS: BLOOD SUGAR DIAGNOSTIC 1 EACH STRIP IN SCH ×2 (05:31→17:21)
[2019-02-01] MEDS: POLYVINYL ALCOHOL 15 ML BOTTLE EACHEYE SCH ×3 (05:31→17:21)
[2019-02-01] MEDS: OMEPRAZOLE DR 20 MG GT SCH (05:31)
[2019-02-01] MEDS: INSULIN LISPRO/ASPART 100 UNIT/ML CARTRIDGE SQ PRN (05:33)
[2019-02-01 07:45] VITALS: BP 96/64
[2019-02-01] MEDS: DOCUSATE SODIUM LIQ 100 MG/10 ML UDC GT SCH ×2 (08:10→16:16)
[2019-02-01] MEDS: PROSTAT (PYXIS) 30 ML UDC GT SCH ×2 (08:10→16:16)
[2019-02-01] MEDS: METFORMIN 850 MG TABLET GT SCH ×2 (08:10→16:16)
[2019-02-01] MEDS: LEVETIRACETAM SOL (5 ML) 100 MG/ML UDC GT SCH ×2 (08:10→21:14)
[2019-02-01] MEDS: POTASSIUM CHLORIDE 20 MEQ POWDER PACKET GT SCH (08:10)
[2019-02-01] MEDS: BACLOFEN (10 MG) 10 MG TABLET GT SCH ×2 (08:10→21:14)
[2019-02-01] MEDS: FERROUS SULFATE - FOR SA ONLY 330 MG/7.5 ML UDC GT SCH ×3 (08:10→16:16)
[2019-02-01] MEDS: ASCORBIC ACID 500 MG TABLET GT SCH ×2 (08:10→16:16)
[2019-02-01] MEDS: Z GUARD REMEDY 4 OZ OINT TP SCH ×2 (08:11→21:15)
[2019-02-01] MEDS: HEPARIN SODIUM, PORCINE 5000 UNITS/1 ML VIAL SQ SCH ×2 (08:11→21:14)
[2019-02-01] MEDS: HYDROGEN PEROXIDE 480 ML BOTTLE TP SCH ×2 (09:00→21:59)
[2019-02-01] MEDS: GLUCERNA 1.2 1,000 ML BOTTLE GT PRN (17:21)
[2019-02-01 20:11] VITALS: BP 114/75
[2019-02-01] MEDS: MULTIVIT W/MINERALS 1 TAB TABLET GT SCH (21:14)
[2019-02-01] MEDS: SENNOSIDES 8.6 MG TABLET GT SCH (21:15)
[2019-02-01] MEDS: BASAGLAR SQ SCH (22:14)
[2019-02-01] MEDS: [UNRECOGNIZED DRUG - OTHER] SQ SCH (22:14)
[2019-02-01] MEDS: ACETAMINOPHEN 650 MG/20 ML UDC- SA PATIENTS-PAIN ONLY GT PRN (22:15)
[2019-02-02] MEDS: POLYVINYL ALCOHOL 15 ML BOTTLE EACHEYE SCH ×5 (00:01→23:29)
[2019-02-02] MEDS: ALBUTEROL FS 2.5 MG/3 ML VIAL.NEB NEB SCH ×4 (01:33→19:11)
[2019-02-02] MEDS: IPRATROPIUM NEB FS 0.5 MG/2.5 ML AMPUL.NEB NEB SCH ×4 (01:33→19:11)
[2019-02-02] MEDS: OMEPRAZOLE DR 20 MG GT SCH (05:27)
[2019-02-02] MEDS: BLOOD SUGAR DIAGNOSTIC 1 EACH STRIP IN SCH ×2 (05:27→17:14)
[2019-02-02] MEDS: INSULIN LISPRO/ASPART 100 UNIT/ML CARTRIDGE SQ PRN ×2 (05:28→17:14)
[2019-02-02 07:42] VITALS: BP 111/71
[2019-02-02] MEDS: PROSTAT (PYXIS) 30 ML UDC GT SCH ×2 (09:00→17:14)
[2019-02-02] MEDS: HEPARIN SODIUM, PORCINE 5000 UNITS/1 ML VIAL SQ SCH ×2 (09:00→20:33)
[2019-02-02] MEDS: FERROUS SULFATE - FOR SA ONLY 330 MG/7.5 ML UDC GT SCH ×3 (09:00→17:14)
[2019-02-02] MEDS: ASCORBIC ACID 500 MG TABLET GT SCH ×2 (09:00→17:14)
[2019-02-02] MEDS: LEVETIRACETAM SOL (5 ML) 100 MG/ML UDC GT SCH ×2 (09:00→20:33)
[2019-02-02] MEDS: POTASSIUM CHLORIDE 20 MEQ POWDER PACKET GT SCH (09:00)
[2019-02-02] MEDS: Z GUARD REMEDY 4 OZ OINT TP SCH ×2 (09:00→20:33)
[2019-02-02] MEDS: DOCUSATE SODIUM LIQ 100 MG/10 ML UDC GT SCH ×2 (09:00→17:14)
[2019-02-02] MEDS: METFORMIN 850 MG TABLET GT SCH ×2 (09:00→17:14)
[2019-02-02] MEDS: BACLOFEN (10 MG) 10 MG TABLET GT SCH ×2 (09:00→20:33)
[2019-02-02] MEDS: HYDROGEN PEROXIDE 480 ML BOTTLE TP SCH ×2 (09:49→21:00)
[2019-02-02] MEDS: GLUCERNA 1.2 1,000 ML BOTTLE GT PRN (17:14)
[2019-02-02 20:00] VITALS: BP 114/71
[2019-02-02] MEDS: MULTIVIT W/MINERALS 1 TAB TABLET GT SCH (20:33)
[2019-02-02] MEDS: SENNOSIDES 8.6 MG TABLET GT SCH (21:41)
[2019-02-02] MEDS: [UNRECOGNIZED DRUG - OTHER] SQ SCH (21:42)
[2019-02-02] MEDS: BASAGLAR SQ SCH (21:42)
[2019-02-03] MEDS: ALBUTEROL FS 2.5 MG/3 ML VIAL.NEB NEB SCH ×4 (01:29→19:12)
[2019-02-03] MEDS: IPRATROPIUM NEB FS 0.5 MG/2.5 ML AMPUL.NEB NEB SCH ×4 (01:29→19:12)
[2019-02-03] MEDS: POLYVINYL ALCOHOL 15 ML BOTTLE EACHEYE SCH ×4 (05:47→23:06)
[2019-02-03] MEDS: OMEPRAZOLE DR 20 MG GT SCH (05:47)
[2019-02-03] MEDS: BLOOD SUGAR DIAGNOSTIC 1 EACH STRIP IN SCH ×2 (06:33→18:02)
[2019-02-03] MEDS: INSULIN LISPRO/ASPART 100 UNIT/ML CARTRIDGE SQ PRN (06:34)
[2019-02-03 08:39] VITALS: BP 120/69
[2019-02-03] MEDS: Z GUARD REMEDY 4 OZ OINT TP SCH ×2 (09:00→21:11)
[2019-02-03] MEDS: HYDROGEN PEROXIDE 480 ML BOTTLE TP SCH ×2 (09:00→20:02)
[2019-02-03] MEDS: ASCORBIC ACID 500 MG TABLET GT SCH ×2 (09:51→17:00)
[2019-02-03] MEDS: POTASSIUM CHLORIDE 20 MEQ POWDER PACKET GT SCH (09:51)
[2019-02-03] MEDS: LEVETIRACETAM SOL (5 ML) 100 MG/ML UDC GT SCH ×2 (09:51→20:02)
[2019-02-03] MEDS: FERROUS SULFATE - FOR SA ONLY 330 MG/7.5 ML UDC GT SCH ×3 (09:51→17:00)
[2019-02-03] MEDS: METFORMIN 850 MG TABLET GT SCH ×2 (09:51→17:00)
[2019-02-03] MEDS: HEPARIN SODIUM, PORCINE 5000 UNITS/1 ML VIAL SQ SCH ×2 (09:51→21:10)
[2019-02-03] MEDS: BACLOFEN (10 MG) 10 MG TABLET GT SCH ×2 (09:51→20:02)
[2019-02-03] MEDS: DOCUSATE SODIUM LIQ 100 MG/10 ML UDC GT SCH ×2 (09:51→17:00)
[2019-02-03] MEDS: PROSTAT (PYXIS) 30 ML UDC GT SCH ×2 (09:51→17:00)
--- NOTE | 2019-02-03 14:56 | NUR ---
RT NOTE PT REMAINS MECHANICALLY VENTILATED VIA CUFFED TRACHEOSTOMY TUBE. CUFF INFLATED. TRACH TUBE MIDLINE AND SECURE. VENTILATOR SETTINGS PRESCRIBED. ALARMS SET PER PROTOCOL AND AUDIBLE. VENT PLUGGED IN TO RED OUTLET. AMBU BAG AT BED SIDE. NO DISTRESS NOTED. Addendum: 02/03/19 at 1456 by VERÓNICA JUNIOR RT Amended: Links added.
[2019-02-03 19:49] VITALS: BP 111/74
[2019-02-03] MEDS: MULTIVIT W/MINERALS 1 TAB TABLET GT SCH (20:02)
[2019-02-03] MEDS: BASAGLAR SQ SCH (21:11)
[2019-02-03] MEDS: [UNRECOGNIZED DRUG - OTHER] SQ SCH (21:11)
[2019-02-03] MEDS: SENNOSIDES 8.6 MG TABLET GT SCH (21:11)
[2019-02-04] MEDS: IPRATROPIUM NEB FS 0.5 MG/2.5 ML AMPUL.NEB NEB SCH ×4 (01:38→20:08)
[2019-02-04] MEDS: ALBUTEROL FS 2.5 MG/3 ML VIAL.NEB NEB SCH ×4 (01:38→20:08)
[2019-02-04] MEDS: POLYVINYL ALCOHOL 15 ML BOTTLE EACHEYE SCH ×3 (05:03→17:43)
[2019-02-04] MEDS: BLOOD SUGAR DIAGNOSTIC 1 EACH STRIP IN SCH ×2 (05:03→17:43)
[2019-02-04] MEDS: OMEPRAZOLE DR 20 MG GT SCH (05:03)
[2019-02-04 07:43] VITALS: BP 100/69
[2019-02-04] MEDS: HYDROGEN PEROXIDE 480 ML BOTTLE TP SCH ×2 (09:00→20:08)
[2019-02-04] MEDS: Z GUARD REMEDY 4 OZ OINT TP SCH ×2 (09:55→20:13)
[2019-02-04] MEDS: LEVETIRACETAM SOL (5 ML) 100 MG/ML UDC GT SCH ×2 (09:55→20:05)
[2019-02-04] MEDS: POTASSIUM CHLORIDE 20 MEQ POWDER PACKET GT SCH (09:55)
[2019-02-04] MEDS: BACLOFEN (10 MG) 10 MG TABLET GT SCH ×2 (09:55→20:05)
[2019-02-04] MEDS: PROSTAT (PYXIS) 30 ML UDC GT SCH ×2 (09:55→17:02)
[2019-02-04] MEDS: FERROUS SULFATE - FOR SA ONLY 330 MG/7.5 ML UDC GT SCH ×3 (09:55→17:02)
[2019-02-04] MEDS: DOCUSATE SODIUM LIQ 100 MG/10 ML UDC GT SCH ×2 (09:55→17:02)
[2019-02-04] MEDS: HEPARIN SODIUM, PORCINE 5000 UNITS/1 ML VIAL SQ SCH ×2 (09:55→20:08)
[2019-02-04] MEDS: METFORMIN 850 MG TABLET GT SCH ×2 (09:55→17:02)
[2019-02-04] MEDS: ASCORBIC ACID 500 MG TABLET GT SCH ×2 (09:55→17:02)
--- NOTE | 2019-02-04 15:52 | NUR ---
RT NOTE: RECEIVED PT ON ORDERED NOTED VENT SETTINGS. NO RESPIRATORY DISTRESS NOTED. TRACH CHECKED SECURE AND PATENT. SXD AND LAVAGED PT Q ROUND AND NEEDED. TXS GIVEN ORDERED WITH NO ADVERSE REACTIONS NOTED. TRACH CARE DONE. BRAVOE LORNA AND ERIC ROCHA @ BEDSIDE. ALARMS CHECKED. Addendum: 02/04/19 at 1552 by LIBRA BOSS RT Amended: Links added.
[2019-02-04] MEDS: GLUCERNA 1.2 1,000 ML BOTTLE GT PRN (16:53)
[2019-02-04] MEDS: MULTIVIT W/MINERALS 1 TAB TABLET GT SCH (20:08)
--- NOTE | 2019-02-04 20:08 | NUR ---
RT NOTE: RECEIVED TRACH PT ON MECH VENT ON NOTED SETTINGS PER MD ORDERS. TRACH CARE DONE AND IS PATENT AND SECURED. HUMAN SERVICE WORKER DONE. Q6 BREATHING TX GIVEN WITH NO ADVERSE REACTION NOTED. SX DONE PRN. VENT PLUGGED INTO RED OUTLET. ALARMS ON AND AUDIBLE. AMBU BAG @ BEDSIDE. NO RESP DISTRESS AT THIS TIME. WILL CONT TO MONITOR PT.
[2019-02-04 20:24] VITALS: BP 98/59
[2019-02-04] MEDS: SENNOSIDES 8.6 MG TABLET GT SCH (21:19)
[2019-02-04] MEDS: BASAGLAR SQ SCH (21:20)
[2019-02-04] MEDS: [UNRECOGNIZED DRUG - OTHER] SQ SCH (21:20)
[2019-02-05] MEDS: POLYVINYL ALCOHOL 15 ML BOTTLE EACHEYE SCH ×4 (00:25→17:00)
[2019-02-05] MEDS: ALBUTEROL FS 2.5 MG/3 ML VIAL.NEB NEB SCH ×4 (02:03→19:34)
[2019-02-05] MEDS: IPRATROPIUM NEB FS 0.5 MG/2.5 ML AMPUL.NEB NEB SCH ×4 (02:03→19:34)
[2019-02-05] MEDS: INSULIN LISPRO/ASPART 100 UNIT/ML CARTRIDGE SQ PRN (05:05)
[2019-02-05] MEDS: BLOOD SUGAR DIAGNOSTIC 1 EACH STRIP IN SCH ×2 (05:05→17:00)
[2019-02-05] MEDS: OMEPRAZOLE DR 20 MG GT SCH (05:05)
[2019-02-05 07:36] VITALS: BP 121/69
[2019-02-05] MEDS: HYDROGEN PEROXIDE 480 ML BOTTLE TP SCH ×2 (09:00→21:00)
[2019-02-05] MEDS: DOCUSATE SODIUM LIQ 100 MG/10 ML UDC GT SCH ×2 (09:13→16:01)
[2019-02-05] MEDS: PROSTAT (PYXIS) 30 ML UDC GT SCH ×2 (09:13→16:01)
[2019-02-05] MEDS: LEVETIRACETAM SOL (5 ML) 100 MG/ML UDC GT SCH ×2 (09:13→20:04)
[2019-02-05] MEDS: METFORMIN 850 MG TABLET GT SCH ×2 (09:13→16:01)
[2019-02-05] MEDS: HEPARIN SODIUM, PORCINE 5000 UNITS/1 ML VIAL SQ SCH ×2 (09:13→20:07)
[2019-02-05] MEDS: FERROUS SULFATE - FOR SA ONLY 330 MG/7.5 ML UDC GT SCH ×3 (09:13→16:01)
[2019-02-05] MEDS: ASCORBIC ACID 500 MG TABLET GT SCH ×2 (09:13→16:01)
[2019-02-05] MEDS: BACLOFEN (10 MG) 10 MG TABLET GT SCH ×2 (09:13→20:04)
[2019-02-05] MEDS: POTASSIUM CHLORIDE 20 MEQ POWDER PACKET GT SCH (09:13)
[2019-02-05] MEDS: Z GUARD REMEDY 4 OZ OINT TP SCH ×2 (09:14→20:08)
[2019-02-05] MEDS: GLUCERNA 1.2 1,000 ML BOTTLE GT PRN (16:50)
[2019-02-05] MEDS: MULTIVIT W/MINERALS 1 TAB TABLET GT SCH (20:06)
[2019-02-05 20:28] VITALS: BP 103/68
[2019-02-05] MEDS: SENNOSIDES 8.6 MG TABLET GT SCH (22:35)
[2019-02-05] MEDS: BASAGLAR SQ SCH (22:40)
[2019-02-05] MEDS: [UNRECOGNIZED DRUG - OTHER] SQ SCH (22:40)
[2019-02-06] MEDS: POLYVINYL ALCOHOL 15 ML BOTTLE EACHEYE SCH ×4 (00:35→17:43)
[2019-02-06] MEDS: ALBUTEROL FS 2.5 MG/3 ML VIAL.NEB NEB SCH ×4 (00:42→19:36)
[2019-02-06] MEDS: IPRATROPIUM NEB FS 0.5 MG/2.5 ML AMPUL.NEB NEB SCH ×4 (00:42→19:35)
[2019-02-06] MEDS: BLOOD SUGAR DIAGNOSTIC 1 EACH STRIP IN SCH ×2 (05:10→18:29)
[2019-02-06] MEDS: OMEPRAZOLE DR 20 MG GT SCH (05:10)
[2019-02-06] MEDS: INSULIN LISPRO/ASPART 100 UNIT/ML CARTRIDGE SQ PRN (05:11)
[2019-02-06 07:56] VITALS: BP 101/58
[2019-02-06] MEDS: PROSTAT (PYXIS) 30 ML UDC GT SCH ×2 (09:49→17:00)
[2019-02-06] MEDS: POTASSIUM CHLORIDE 20 MEQ POWDER PACKET GT SCH (09:49)
[2019-02-06] MEDS: BACLOFEN (10 MG) 10 MG TABLET GT SCH ×2 (09:49→20:00)
[2019-02-06] MEDS: LEVETIRACETAM SOL (5 ML) 100 MG/ML UDC GT SCH ×2 (09:49→20:00)
[2019-02-06] MEDS: FERROUS SULFATE - FOR SA ONLY 330 MG/7.5 ML UDC GT SCH ×3 (09:49→17:00)
[2019-02-06] MEDS: ASCORBIC ACID 500 MG TABLET GT SCH ×2 (09:49→17:00)
[2019-02-06] MEDS: DOCUSATE SODIUM LIQ 100 MG/10 ML UDC GT SCH ×2 (09:49→17:00)
[2019-02-06] MEDS: METFORMIN 850 MG TABLET GT SCH ×2 (09:49→17:00)
[2019-02-06] MEDS: HEPARIN SODIUM, PORCINE 5000 UNITS/1 ML VIAL SQ SCH ×2 (09:49→20:01)
[2019-02-06] MEDS: Z GUARD REMEDY 4 OZ OINT TP SCH ×2 (09:50→20:01)
[2019-02-06] MEDS: HYDROGEN PEROXIDE 480 ML BOTTLE TP SCH ×2 (09:54→21:00)
--- NOTE | 2019-02-06 15:25 | NUR ---
11:10 am--ERVIN contacted patients responsible democrat, Tosin Horvath [phone] to invite Tosin to attend IDT meeting being held this Saturday, February 09, 2019 at 12:30-1:30pm. ERVIN was not able to reach Tosin but left a voicemail with call back number. ERVIN will continue attempts to reach Tosin. 3:10 pm--ERVIN attempted to reach Tosin once again without success. ERVIN left Tosin a voicemail detailing IDT meeting time and location.
--- NOTE | 2019-02-06 16:16 | NUR ---
RT NOTES TRACH TUBE IN PLACE, PATENT, AND SECURED WITH TRACH TIE. ALARMS ON AND AUDIBLE. VENT PLUGGED IN TO RED OUTLET. SPO2 >92% MAINTAINED THROUGHOUT SHIFT. AMBU BAG AND BACK UP TRACH BY THE BEDSIDE. NO DISTRESS. Addendum: 02/06/19 at 1617 by ADOLFO LU RT Amended: Links added.
[2019-02-06] MEDS: GLUCERNA 1.2 1,000 ML BOTTLE GT PRN (16:59)
[2019-02-06] MEDS: MULTIVIT W/MINERALS 1 TAB TABLET GT SCH (20:00)
[2019-02-06 20:29] VITALS: BP 124/76
[2019-02-06] MEDS: SENNOSIDES 8.6 MG TABLET GT SCH (21:27)
[2019-02-06] MEDS: BASAGLAR SQ SCH (21:27)
[2019-02-06] MEDS: [UNRECOGNIZED DRUG - OTHER] SQ SCH (21:27)
[2019-02-07] MEDS: POLYVINYL ALCOHOL 15 ML BOTTLE EACHEYE SCH ×4 (00:21→17:13)
[2019-02-07] MEDS: IPRATROPIUM NEB FS 0.5 MG/2.5 ML AMPUL.NEB NEB SCH ×4 (01:33→20:20)
[2019-02-07] MEDS: ALBUTEROL FS 2.5 MG/3 ML VIAL.NEB NEB SCH ×4 (01:33→20:20)
[2019-02-07] MEDS: OMEPRAZOLE DR 20 MG GT SCH (05:04)
[2019-02-07] MEDS: BLOOD SUGAR DIAGNOSTIC 1 EACH STRIP IN SCH ×2 (05:04→17:13)
[2019-02-07] MEDS: INSULIN LISPRO/ASPART 100 UNIT/ML CARTRIDGE SQ PRN ×2 (05:05→17:14)
[2019-02-07 08:04] VITALS: BP 105/62
[2019-02-07] MEDS: FERROUS SULFATE - FOR SA ONLY 330 MG/7.5 ML UDC GT SCH ×3 (08:35→17:13)
[2019-02-07] MEDS: PROSTAT (PYXIS) 30 ML UDC GT SCH ×2 (08:35→17:13)
[2019-02-07] MEDS: POTASSIUM CHLORIDE 20 MEQ POWDER PACKET GT SCH (08:35)
[2019-02-07] MEDS: BACLOFEN (10 MG) 10 MG TABLET GT SCH ×2 (08:35→20:34)
[2019-02-07] MEDS: METFORMIN 850 MG TABLET GT SCH ×2 (08:35→17:13)
[2019-02-07] MEDS: ASCORBIC ACID 500 MG TABLET GT SCH ×2 (08:35→17:13)
[2019-02-07] MEDS: DOCUSATE SODIUM LIQ 100 MG/10 ML UDC GT SCH ×2 (08:35→17:13)
[2019-02-07] MEDS: LEVETIRACETAM SOL (5 ML) 100 MG/ML UDC GT SCH ×2 (08:35→20:34)
[2019-02-07] MEDS: Z GUARD REMEDY 4 OZ OINT TP SCH ×2 (08:36→20:35)
[2019-02-07] MEDS: HEPARIN SODIUM, PORCINE 5000 UNITS/1 ML VIAL SQ SCH ×2 (08:36→20:35)
[2019-02-07] MEDS: HYDROGEN PEROXIDE 480 ML BOTTLE TP SCH ×2 (09:00→20:20)
[2019-02-07] MEDS ORDERED: DIATR MEGLU/DIATRIZOATE SODIUM 30 ML BOTTLE (GASTROGRAPHIN) ONE (09:39)
--- NOTE | 2019-02-07 11:00 | NUR ---
Dr. Dsouza notified that patient's GT came out and replaced. ordered KUB and placement verified.
[2019-02-07] MEDS: GLUCERNA 1.2 1,000 ML BOTTLE GT PRN (17:14)
[2019-02-07 20:17] VITALS: BP 103/64
[2019-02-07] MEDS: MULTIVIT W/MINERALS 1 TAB TABLET GT SCH (20:34)
[2019-02-07] MEDS: SENNOSIDES 8.6 MG TABLET GT SCH (21:36)
[2019-02-07] MEDS: [UNRECOGNIZED DRUG - OTHER] SQ SCH (21:40)
[2019-02-07] MEDS: BASAGLAR SQ SCH (21:40)
[2019-02-07 22:13] VITALS: BP 103/64
[2019-02-08] MEDS: POLYVINYL ALCOHOL 15 ML BOTTLE EACHEYE SCH ×4 (00:36→18:22)
[2019-02-08] MEDS: IPRATROPIUM NEB FS 0.5 MG/2.5 ML AMPUL.NEB NEB SCH ×4 (01:50→19:37)
[2019-02-08] MEDS: ALBUTEROL FS 2.5 MG/3 ML VIAL.NEB NEB SCH ×4 (01:51→19:37)
[2019-02-08] MEDS: OMEPRAZOLE DR 20 MG GT SCH (05:08)
[2019-02-08] MEDS: BLOOD SUGAR DIAGNOSTIC 1 EACH STRIP IN SCH ×2 (06:38→18:22)
[2019-02-08] MEDS: INSULIN LISPRO/ASPART 100 UNIT/ML CARTRIDGE SQ PRN (06:50)
--- NOTE | 2019-02-08 06:53 | NUR ---
warp tying machine tender notes blood sugar 146, no insulin due at this time. no signs of hypo glycemia noted.
[2019-02-08 07:54] VITALS: BP 112/83
[2019-02-08] MEDS: Z GUARD REMEDY 4 OZ OINT TP SCH ×2 (09:00→20:36)
[2019-02-08] MEDS: POTASSIUM CHLORIDE 20 MEQ POWDER PACKET GT SCH (09:36)
[2019-02-08] MEDS: LEVETIRACETAM SOL (5 ML) 100 MG/ML UDC GT SCH ×2 (09:36→20:36)
[2019-02-08] MEDS: ASCORBIC ACID 500 MG TABLET GT SCH ×2 (09:36→16:49)
[2019-02-08] MEDS: PROSTAT (PYXIS) 30 ML UDC GT SCH ×2 (09:36→16:49)
[2019-02-08] MEDS: BACLOFEN (10 MG) 10 MG TABLET GT SCH ×2 (09:36→20:36)
[2019-02-08] MEDS: DOCUSATE SODIUM LIQ 100 MG/10 ML UDC GT SCH ×2 (09:36→16:49)
[2019-02-08] MEDS: METFORMIN 850 MG TABLET GT SCH ×2 (09:36→16:49)
[2019-02-08] MEDS: FERROUS SULFATE - FOR SA ONLY 330 MG/7.5 ML UDC GT SCH ×3 (09:36→17:00)
[2019-02-08] MEDS: HEPARIN SODIUM, PORCINE 5000 UNITS/1 ML VIAL SQ SCH ×2 (09:37→20:36)
[2019-02-08] MEDS: HYDROGEN PEROXIDE 480 ML BOTTLE TP SCH ×2 (09:47→21:00)
[2019-02-08 20:09] VITALS: BP 107/66
[2019-02-08] MEDS: MULTIVIT W/MINERALS 1 TAB TABLET GT SCH (20:36)
--- NOTE | 2019-02-08 21:00 | NUR ---
Seen by Mya Rodgers no new orders.
[2019-02-08] MEDS: SENNOSIDES 8.6 MG TABLET GT SCH (22:06)
[2019-02-08] MEDS: BASAGLAR SQ SCH (22:07)
[2019-02-08] MEDS: [UNRECOGNIZED DRUG - OTHER] SQ SCH (22:07)
[2019-02-09] MEDS: POLYVINYL ALCOHOL 15 ML BOTTLE EACHEYE SCH ×4 (00:38→17:51)
[2019-02-09] MEDS: IPRATROPIUM NEB FS 0.5 MG/2.5 ML AMPUL.NEB NEB SCH ×4 (02:00→19:30)
[2019-02-09] MEDS: ALBUTEROL FS 2.5 MG/3 ML VIAL.NEB NEB SCH ×4 (02:00→19:30)
[2019-02-09] MEDS: OMEPRAZOLE DR 20 MG GT SCH (05:47)
[2019-02-09] MEDS: INSULIN LISPRO/ASPART 100 UNIT/ML CARTRIDGE SQ PRN ×2 (06:35→17:56)
[2019-02-09] MEDS: BLOOD SUGAR DIAGNOSTIC 1 EACH STRIP IN SCH ×2 (06:35→17:51)
[2019-02-09 07:24] VITALS: BP 104/58
[2019-02-09] MEDS: FERROUS SULFATE - FOR SA ONLY 330 MG/7.5 ML UDC GT SCH ×3 (09:00→17:51)
[2019-02-09] MEDS: POTASSIUM CHLORIDE 20 MEQ POWDER PACKET GT SCH (09:00)
[2019-02-09] MEDS: DOCUSATE SODIUM LIQ 100 MG/10 ML UDC GT SCH ×2 (09:00→17:51)
[2019-02-09] MEDS: PROSTAT (PYXIS) 30 ML UDC GT SCH ×2 (09:00→17:51)
[2019-02-09] MEDS: HEPARIN SODIUM, PORCINE 5000 UNITS/1 ML VIAL SQ SCH ×2 (09:00→21:40)
[2019-02-09] MEDS: METFORMIN 850 MG TABLET GT SCH ×2 (09:00→17:51)
[2019-02-09] MEDS: LEVETIRACETAM SOL (5 ML) 100 MG/ML UDC GT SCH ×2 (09:00→21:40)
[2019-02-09] MEDS: Z GUARD REMEDY 4 OZ OINT TP SCH ×2 (09:00→21:40)
[2019-02-09] MEDS: BACLOFEN (10 MG) 10 MG TABLET GT SCH ×2 (09:00→21:40)
[2019-02-09] MEDS: ASCORBIC ACID 500 MG TABLET GT SCH ×2 (09:00→17:51)
[2019-02-09] MEDS: HYDROGEN PEROXIDE 480 ML BOTTLE TP SCH ×2 (09:39→20:24)
--- NOTE | 2019-02-09 15:01 | NUR ---
INTERDISCIPLINARY PLAN OF CARE CONFERENCE was held today. The patients responsible constitution party Tosin Horvath [phone] could not attend nor participate via phone conference. Dr. Alvarez and interdisciplinary team discussed the current plan of care in detail. Current orders as well as treatments and medications were reviewed. No new orders given.
[2019-02-09] MEDS: GLUCERNA 1.2 1,000 ML BOTTLE GT PRN (18:10)
[2019-02-09 20:04] VITALS: BP 113/73
[2019-02-09] MEDS: MULTIVIT W/MINERALS 1 TAB TABLET GT SCH (21:40)
[2019-02-09] MEDS: SENNOSIDES 8.6 MG TABLET GT SCH (21:41)
[2019-02-09] MEDS: BASAGLAR SQ SCH (22:44)
[2019-02-09] MEDS: [UNRECOGNIZED DRUG - OTHER] SQ SCH (22:44)
[2019-02-10] MEDS: POLYVINYL ALCOHOL 15 ML BOTTLE EACHEYE SCH ×4 (00:29→18:16)
[2019-02-10] MEDS: ALBUTEROL FS 2.5 MG/3 ML VIAL.NEB NEB SCH ×4 (00:48→19:52)
[2019-02-10] MEDS: IPRATROPIUM NEB FS 0.5 MG/2.5 ML AMPUL.NEB NEB SCH ×4 (00:48→19:52)
[2019-02-10] MEDS: OMEPRAZOLE DR 20 MG GT SCH (06:27)
[2019-02-10] MEDS: INSULIN LISPRO/ASPART 100 UNIT/ML CARTRIDGE SQ PRN ×2 (06:27→18:18)
[2019-02-10] MEDS: BLOOD SUGAR DIAGNOSTIC 1 EACH STRIP IN SCH ×2 (06:27→18:16)
[2019-02-10 08:02] VITALS: BP 113/72
[2019-02-10] MEDS: METFORMIN 850 MG TABLET GT SCH ×2 (08:39→16:51)
[2019-02-10] MEDS: FERROUS SULFATE - FOR SA ONLY 330 MG/7.5 ML UDC GT SCH ×3 (08:39→16:51)
[2019-02-10] MEDS: DOCUSATE SODIUM LIQ 100 MG/10 ML UDC GT SCH ×2 (08:39→16:51)
[2019-02-10] MEDS: BACLOFEN (10 MG) 10 MG TABLET GT SCH ×2 (08:40→21:05)
[2019-02-10] MEDS: LEVETIRACETAM SOL (5 ML) 100 MG/ML UDC GT SCH ×2 (08:40→21:05)
[2019-02-10] MEDS: POTASSIUM CHLORIDE 20 MEQ POWDER PACKET GT SCH (08:40)
[2019-02-10] MEDS: PROSTAT (PYXIS) 30 ML UDC GT SCH ×2 (08:40→16:51)
[2019-02-10] MEDS: ASCORBIC ACID 500 MG TABLET GT SCH ×2 (08:41→16:51)
[2019-02-10] MEDS: HEPARIN SODIUM, PORCINE 5000 UNITS/1 ML VIAL SQ SCH ×2 (08:51→21:07)
[2019-02-10] MEDS: Z GUARD REMEDY 4 OZ OINT TP SCH ×2 (09:00→21:07)
[2019-02-10] MEDS: HYDROGEN PEROXIDE 480 ML BOTTLE TP SCH ×2 (09:05→21:07)
[2019-02-10] MEDS: GLUCERNA 1.2 1,000 ML BOTTLE GT PRN (16:51)
[2019-02-10 20:00] VITALS: BP 113/75
[2019-02-10] MEDS: MULTIVIT W/MINERALS 1 TAB TABLET GT SCH (21:05)
[2019-02-10] MEDS: SENNOSIDES 8.6 MG TABLET GT SCH (22:05)
[2019-02-10] MEDS: [UNRECOGNIZED DRUG - OTHER] SQ SCH (22:22)
[2019-02-10] MEDS: BASAGLAR SQ SCH (22:22)
[2019-02-11] MEDS: POLYVINYL ALCOHOL 15 ML BOTTLE EACHEYE SCH ×4 (00:20→17:26)
[2019-02-11] MEDS: ALBUTEROL FS 2.5 MG/3 ML VIAL.NEB NEB SCH ×4 (00:40→19:54)
[2019-02-11] MEDS: IPRATROPIUM NEB FS 0.5 MG/2.5 ML AMPUL.NEB NEB SCH ×4 (00:40→19:54)
[2019-02-11] MEDS: OMEPRAZOLE DR 20 MG GT SCH (05:54)
[2019-02-11] MEDS: BLOOD SUGAR DIAGNOSTIC 1 EACH STRIP IN SCH ×2 (05:54→17:25)
[2019-02-11 07:59] VITALS: BP 117/78
[2019-02-11] MEDS: FERROUS SULFATE - FOR SA ONLY 330 MG/7.5 ML UDC GT SCH ×3 (08:33→16:19)
[2019-02-11] MEDS: DOCUSATE SODIUM LIQ 100 MG/10 ML UDC GT SCH ×2 (08:33→16:19)
[2019-02-11] MEDS: POTASSIUM CHLORIDE 20 MEQ POWDER PACKET GT SCH (08:33)
[2019-02-11] MEDS: LEVETIRACETAM SOL (5 ML) 100 MG/ML UDC GT SCH ×2 (08:33→21:35)
[2019-02-11] MEDS: PROSTAT (PYXIS) 30 ML UDC GT SCH ×2 (08:33→16:19)
[2019-02-11] MEDS: ASCORBIC ACID 500 MG TABLET GT SCH ×2 (08:33→16:19)
[2019-02-11] MEDS: METFORMIN 850 MG TABLET GT SCH ×2 (08:33→16:19)
[2019-02-11] MEDS: BACLOFEN (10 MG) 10 MG TABLET GT SCH ×2 (08:33→21:35)
[2019-02-11] MEDS: HEPARIN SODIUM, PORCINE 5000 UNITS/1 ML VIAL SQ SCH ×2 (08:34→21:37)
[2019-02-11] MEDS: Z GUARD REMEDY 4 OZ OINT TP SCH ×2 (09:00→21:38)
[2019-02-11] MEDS: HYDROGEN PEROXIDE 480 ML BOTTLE TP SCH ×2 (09:00→21:34)
--- NOTE | 2019-02-11 10:50 | NUR ---
Seen and examined by Dr. Dsouza, no new order.
[2019-02-11] MEDS: INSULIN LISPRO/ASPART 100 UNIT/ML CARTRIDGE SQ PRN (17:26)
[2019-02-11 20:24] VITALS: BP 115/70
[2019-02-11] MEDS: MULTIVIT W/MINERALS 1 TAB TABLET GT SCH (21:35)
[2019-02-11] MEDS: SENNOSIDES 8.6 MG TABLET GT SCH (21:38)
[2019-02-11] MEDS: BASAGLAR SQ SCH (21:39)
[2019-02-11] MEDS: [UNRECOGNIZED DRUG - OTHER] SQ SCH (21:39)
[2019-02-12] MEDS: POLYVINYL ALCOHOL 15 ML BOTTLE EACHEYE SCH ×4 (00:13→18:02)
[2019-02-12] MEDS: IPRATROPIUM NEB FS 0.5 MG/2.5 ML AMPUL.NEB NEB SCH ×4 (01:46→19:45)
[2019-02-12] MEDS: ALBUTEROL FS 2.5 MG/3 ML VIAL.NEB NEB SCH ×4 (01:46→19:45)
[2019-02-12] MEDS: BLOOD SUGAR DIAGNOSTIC 1 EACH STRIP IN SCH ×2 (05:52→18:02)
[2019-02-12] MEDS: OMEPRAZOLE DR 20 MG GT SCH (05:52)
[2019-02-12] MEDS: INSULIN LISPRO/ASPART 100 UNIT/ML CARTRIDGE SQ PRN (05:54)
[2019-02-12 07:26] LABS: BASOPHILS # (AUTO) 0.1 /CMM (0.0-0.2); BASOPHILS % (AUTO) 1.1 % (0.0-2.0); HEMATOCRIT 36 % (33-45); HEMOGLOBIN 12.4 g/dL (11.5-14.8); LYMPHOCYTES # (AUTO) 3.2 /CMM (0.8-4.8); LYMPHOCYTES % (AUTO) 39.6 % (20.0-44.0); MEAN CORPUSCULAR HGB CONC 34 g/dl (31.0-36.0); MEAN CORPUSCULAR VOLUME 91 fL (82-100); MONOCYTES # (AUTO) 0.4 /CMM (0.1-1.30); MONOCYTES % (AUTO) 5.4 % (2.0-12.0); NEUTROPHILS # (AUTO) 4.2 /CMM (1.8-8.9); NEUTROPHILS % (AUTO) 51.9 % (43.0-81.0); PLATELET COUNT (AUTO) 297 /CMM (150-450); RED BLOOD CELL COUNT(AUTO) 3.99 MIL/uL (4.0-5.2); WHITE BLOOD COUNT (AUTO) 8.1 K/uL (4.3-11.0)
[2019-02-12 07:37] VITALS: BP 110/82
[2019-02-12 07:40] LABS: CALCIUM, SERUM 9.8 mg/dL (8.5-10.1); CREATININE 0.8 mg/dL (0.6-1.3); POTASSIUM 3.9 mmol/L (3.5-5.1)
[2019-02-12] MEDS: HYDROGEN PEROXIDE 480 ML BOTTLE TP SCH ×2 (09:00→21:00)
[2019-02-12] MEDS: BACLOFEN (10 MG) 10 MG TABLET GT SCH ×2 (09:56→20:42)
[2019-02-12] MEDS: LEVETIRACETAM SOL (5 ML) 100 MG/ML UDC GT SCH ×2 (09:56→20:42)
[2019-02-12] MEDS: PROSTAT (PYXIS) 30 ML UDC GT SCH ×2 (09:56→16:53)
[2019-02-12] MEDS: POTASSIUM CHLORIDE 20 MEQ POWDER PACKET GT SCH (09:56)
[2019-02-12] MEDS: FERROUS SULFATE - FOR SA ONLY 330 MG/7.5 ML UDC GT SCH ×3 (09:56→16:53)
[2019-02-12] MEDS: METFORMIN 850 MG TABLET GT SCH ×2 (09:56→16:53)
[2019-02-12] MEDS: HEPARIN SODIUM, PORCINE 5000 UNITS/1 ML VIAL SQ SCH ×2 (09:56→20:45)
[2019-02-12] MEDS: ASCORBIC ACID 500 MG TABLET GT SCH ×2 (09:56→16:53)
[2019-02-12] MEDS: DOCUSATE SODIUM LIQ 100 MG/10 ML UDC GT SCH ×2 (09:56→16:53)
[2019-02-12] MEDS: Z GUARD REMEDY 4 OZ OINT TP SCH ×2 (09:57→20:45)
[2019-02-12 20:16] VITALS: BP 104/69
[2019-02-12] MEDS: MULTIVIT W/MINERALS 1 TAB TABLET GT SCH (20:43)
[2019-02-12] MEDS: GLUCERNA 1.2 1,000 ML BOTTLE GT PRN (21:10)
[2019-02-12] MEDS: SENNOSIDES 8.6 MG TABLET GT SCH (21:16)
[2019-02-12] MEDS: [UNRECOGNIZED DRUG - OTHER] SQ SCH (21:17)
[2019-02-12] MEDS: BASAGLAR SQ SCH (21:17)
[2019-02-13] MEDS: POLYVINYL ALCOHOL 15 ML BOTTLE EACHEYE SCH ×5 (00:49→23:58)
[2019-02-13] MEDS: ALBUTEROL FS 2.5 MG/3 ML VIAL.NEB NEB SCH ×4 (01:52→20:06)
[2019-02-13] MEDS: IPRATROPIUM NEB FS 0.5 MG/2.5 ML AMPUL.NEB NEB SCH ×4 (01:52→20:06)
[2019-02-13] MEDS: OMEPRAZOLE DR 20 MG GT SCH (05:22)
[2019-02-13] MEDS: INSULIN LISPRO/ASPART 100 UNIT/ML CARTRIDGE SQ PRN (05:23)
[2019-02-13] MEDS: BLOOD SUGAR DIAGNOSTIC 1 EACH STRIP IN SCH ×2 (05:23→18:03)
[2019-02-13 07:35] VITALS: BP 118/70
[2019-02-13] MEDS: HYDROGEN PEROXIDE 480 ML BOTTLE TP SCH ×2 (09:00→20:06)
[2019-02-13] MEDS: POTASSIUM CHLORIDE 20 MEQ POWDER PACKET GT SCH (09:38)
[2019-02-13] MEDS: FERROUS SULFATE - FOR SA ONLY 330 MG/7.5 ML UDC GT SCH ×3 (09:38→17:00)
[2019-02-13] MEDS: LEVETIRACETAM SOL (5 ML) 100 MG/ML UDC GT SCH ×2 (09:38→20:02)
[2019-02-13] MEDS: HEPARIN SODIUM, PORCINE 5000 UNITS/1 ML VIAL SQ SCH ×2 (09:38→20:01)
[2019-02-13] MEDS: PROSTAT (PYXIS) 30 ML UDC GT SCH ×2 (09:38→17:00)
[2019-02-13] MEDS: METFORMIN 850 MG TABLET GT SCH ×2 (09:38→17:00)
[2019-02-13] MEDS: DOCUSATE SODIUM LIQ 100 MG/10 ML UDC GT SCH ×2 (09:38→17:00)
[2019-02-13] MEDS: ASCORBIC ACID 500 MG TABLET GT SCH ×2 (09:38→17:00)
[2019-02-13] MEDS: BACLOFEN (10 MG) 10 MG TABLET GT SCH ×2 (09:38→20:02)
[2019-02-13] MEDS: Z GUARD REMEDY 4 OZ OINT TP SCH ×2 (09:39→20:02)
[2019-02-13] MEDS: MULTIVIT W/MINERALS 1 TAB TABLET GT SCH (20:00)
[2019-02-13 20:10] VITALS: BP 90/59
[2019-02-13] MEDS: SENNOSIDES 8.6 MG TABLET GT SCH (21:10)
[2019-02-13] MEDS: [UNRECOGNIZED DRUG - OTHER] SQ SCH (21:16)
[2019-02-13] MEDS: BASAGLAR SQ SCH (21:16)
[2019-02-13] MEDS: GLUCERNA 1.2 1,000 ML BOTTLE GT PRN (21:38)
[2019-02-14] MEDS: ALBUTEROL FS 2.5 MG/3 ML VIAL.NEB NEB SCH ×4 (01:53→19:32)
[2019-02-14] MEDS: IPRATROPIUM NEB FS 0.5 MG/2.5 ML AMPUL.NEB NEB SCH ×4 (01:53→19:31)
[2019-02-14] MEDS: OMEPRAZOLE DR 20 MG GT SCH (05:07)
[2019-02-14] MEDS: BLOOD SUGAR DIAGNOSTIC 1 EACH STRIP IN SCH ×2 (05:07→18:00)
[2019-02-14] MEDS: POLYVINYL ALCOHOL 15 ML BOTTLE EACHEYE SCH ×3 (05:07→18:00)
[2019-02-14] MEDS: INSULIN LISPRO/ASPART 100 UNIT/ML CARTRIDGE SQ PRN (05:07)
[2019-02-14] MEDS: HYDROGEN PEROXIDE 480 ML BOTTLE TP SCH ×2 (06:57→21:00)
[2019-02-14 07:51] VITALS: BP 104/69
[2019-02-14] MEDS: BACLOFEN (10 MG) 10 MG TABLET GT SCH ×2 (09:09→21:11)
[2019-02-14] MEDS: Z GUARD REMEDY 4 OZ OINT TP SCH ×2 (09:09→21:12)
[2019-02-14] MEDS: LEVETIRACETAM SOL (5 ML) 100 MG/ML UDC GT SCH ×2 (09:09→21:11)
[2019-02-14] MEDS: FERROUS SULFATE - FOR SA ONLY 330 MG/7.5 ML UDC GT SCH ×3 (09:09→16:30)
[2019-02-14] MEDS: POTASSIUM CHLORIDE 20 MEQ POWDER PACKET GT SCH (09:09)
[2019-02-14] MEDS: PROSTAT (PYXIS) 30 ML UDC GT SCH ×2 (09:09→16:30)
[2019-02-14] MEDS: METFORMIN 850 MG TABLET GT SCH ×2 (09:09→16:30)
[2019-02-14] MEDS: DOCUSATE SODIUM LIQ 100 MG/10 ML UDC GT SCH ×2 (09:09→16:30)
[2019-02-14] MEDS: ASCORBIC ACID 500 MG TABLET GT SCH ×2 (09:09→16:30)
[2019-02-14] MEDS: HEPARIN SODIUM, PORCINE 5000 UNITS/1 ML VIAL SQ SCH ×2 (09:09→21:12)
--- NOTE | 2019-02-14 09:47 | NUR ---
RT PATIENT REC'D TRACHED ON ORDERED MODALITY TOLERATED WELL. PATIENT APPEARS COMFORTABLE AND IN NO DISTRESS AT THIS TIME. ALL SAFETY MEASURES CHECKED. WILL CONTINUE TO MONITOR CLOSELY. CONTINUE CURRENT PLAN OF RESP CARE. Addendum: 02/14/19 at 0948 by MERISSA BHATT RT Amended: Links added.
[2019-02-14] MEDS: GLUCERNA 1.2 1,000 ML BOTTLE GT PRN (18:11)
[2019-02-14 20:19] VITALS: BP 113/70
[2019-02-14] MEDS: MULTIVIT W/MINERALS 1 TAB TABLET GT SCH (21:11)
[2019-02-14] MEDS: SENNOSIDES 8.6 MG TABLET GT SCH (21:12)
[2019-02-14] MEDS: BASAGLAR SQ SCH (21:13)
[2019-02-14] MEDS: [UNRECOGNIZED DRUG - OTHER] SQ SCH (21:13)
[2019-02-15] MEDS: POLYVINYL ALCOHOL 15 ML BOTTLE EACHEYE SCH ×4 (00:13→17:38)
[2019-02-15] MEDS: ALBUTEROL FS 2.5 MG/3 ML VIAL.NEB NEB SCH ×4 (01:51→19:42)
[2019-02-15] MEDS: IPRATROPIUM NEB FS 0.5 MG/2.5 ML AMPUL.NEB NEB SCH ×4 (01:51→19:42)
[2019-02-15] MEDS: BLOOD SUGAR DIAGNOSTIC 1 EACH STRIP IN SCH ×2 (05:27→17:38)
[2019-02-15] MEDS: OMEPRAZOLE DR 20 MG GT SCH (05:27)
[2019-02-15] MEDS: INSULIN LISPRO/ASPART 100 UNIT/ML CARTRIDGE SQ PRN ×2 (05:28→17:41)
[2019-02-15 07:27] VITALS: BP 106/75
[2019-02-15] MEDS: FERROUS SULFATE - FOR SA ONLY 330 MG/7.5 ML UDC GT SCH ×3 (08:26→17:38)
[2019-02-15] MEDS: DOCUSATE SODIUM LIQ 100 MG/10 ML UDC GT SCH ×2 (08:26→17:38)
[2019-02-15] MEDS: LEVETIRACETAM SOL (5 ML) 100 MG/ML UDC GT SCH ×2 (08:26→21:06)
[2019-02-15] MEDS: BACLOFEN (10 MG) 10 MG TABLET GT SCH ×2 (08:26→21:06)
[2019-02-15] MEDS: PROSTAT (PYXIS) 30 ML UDC GT SCH ×2 (08:26→17:38)
[2019-02-15] MEDS: ASCORBIC ACID 500 MG TABLET GT SCH ×2 (08:26→17:38)
[2019-02-15] MEDS: METFORMIN 850 MG TABLET GT SCH ×2 (08:26→17:38)
[2019-02-15] MEDS: POTASSIUM CHLORIDE 20 MEQ POWDER PACKET GT SCH (08:26)
[2019-02-15] MEDS: Z GUARD REMEDY 4 OZ OINT TP SCH ×2 (08:27→21:08)
[2019-02-15] MEDS: HEPARIN SODIUM, PORCINE 5000 UNITS/1 ML VIAL SQ SCH ×2 (08:27→21:07)
[2019-02-15] MEDS: HYDROGEN PEROXIDE 480 ML BOTTLE TP SCH ×2 (09:00→21:00)
[2019-02-15] MEDS: GLUCERNA 1.2 1,000 ML BOTTLE GT PRN (17:41)
[2019-02-15 19:46] VITALS: BP 113/75
[2019-02-15] MEDS: MULTIVIT W/MINERALS 1 TAB TABLET GT SCH (21:06)
[2019-02-15] MEDS: SENNOSIDES 8.6 MG TABLET GT SCH (21:08)
[2019-02-15] MEDS: [UNRECOGNIZED DRUG - OTHER] SQ SCH (21:11)
[2019-02-15] MEDS: BASAGLAR SQ SCH (21:11)
[2019-02-16] MEDS: POLYVINYL ALCOHOL 15 ML BOTTLE EACHEYE SCH ×4 (00:20→18:18)
[2019-02-16] MEDS: IPRATROPIUM NEB FS 0.5 MG/2.5 ML AMPUL.NEB NEB SCH ×4 (01:07→20:13)
[2019-02-16] MEDS: ALBUTEROL FS 2.5 MG/3 ML VIAL.NEB NEB SCH ×4 (01:08→20:13)
[2019-02-16] MEDS: OMEPRAZOLE DR 20 MG GT SCH (05:19)
[2019-02-16] MEDS: BLOOD SUGAR DIAGNOSTIC 1 EACH STRIP IN SCH ×2 (05:22→18:18)
[2019-02-16] MEDS: INSULIN LISPRO/ASPART 100 UNIT/ML CARTRIDGE SQ PRN ×2 (05:22→18:18)
[2019-02-16 07:31] VITALS: BP 107/63
[2019-02-16] MEDS: HYDROGEN PEROXIDE 480 ML BOTTLE TP SCH ×2 (09:30→20:36)
[2019-02-16] MEDS: POTASSIUM CHLORIDE 20 MEQ POWDER PACKET GT SCH (09:45)
[2019-02-16] MEDS: FERROUS SULFATE - FOR SA ONLY 330 MG/7.5 ML UDC GT SCH ×3 (09:45→16:33)
[2019-02-16] MEDS: DOCUSATE SODIUM LIQ 100 MG/10 ML UDC GT SCH ×2 (09:45→16:33)
[2019-02-16] MEDS: LEVETIRACETAM SOL (5 ML) 100 MG/ML UDC GT SCH ×2 (09:45→21:38)
[2019-02-16] MEDS: ASCORBIC ACID 500 MG TABLET GT SCH ×2 (09:45→16:33)
[2019-02-16] MEDS: METFORMIN 850 MG TABLET GT SCH ×2 (09:45→16:33)
[2019-02-16] MEDS: BACLOFEN (10 MG) 10 MG TABLET GT SCH ×2 (09:45→21:38)
[2019-02-16] MEDS: PROSTAT (PYXIS) 30 ML UDC GT SCH ×2 (09:45→16:33)
[2019-02-16] MEDS: HEPARIN SODIUM, PORCINE 5000 UNITS/1 ML VIAL SQ SCH ×2 (09:46→21:38)
[2019-02-16] MEDS: Z GUARD REMEDY 4 OZ OINT TP SCH ×2 (09:46→21:38)
[2019-02-16 19:45] VITALS: BP 108/75
[2019-02-16] MEDS: SENNOSIDES 8.6 MG TABLET GT SCH (21:38)
[2019-02-16] MEDS: MULTIVIT W/MINERALS 1 TAB TABLET GT SCH (21:38)
[2019-02-16] MEDS: [UNRECOGNIZED DRUG - OTHER] SQ SCH (22:02)
[2019-02-16] MEDS: BASAGLAR SQ SCH (22:02)
[2019-02-17] MEDS: GLUCERNA 1.2 1,000 ML BOTTLE GT PRN (00:30)
[2019-02-17] MEDS: POLYVINYL ALCOHOL 15 ML BOTTLE EACHEYE SCH ×5 (00:38→23:50)
[2019-02-17] MEDS: ALBUTEROL FS 2.5 MG/3 ML VIAL.NEB NEB SCH ×4 (01:25→19:59)
[2019-02-17] MEDS: IPRATROPIUM NEB FS 0.5 MG/2.5 ML AMPUL.NEB NEB SCH ×4 (01:25→19:59)
[2019-02-17] MEDS: OMEPRAZOLE DR 20 MG GT SCH (05:31)
[2019-02-17] MEDS: BLOOD SUGAR DIAGNOSTIC 1 EACH STRIP IN SCH ×2 (05:31→18:01)
[2019-02-17] MEDS: INSULIN LISPRO/ASPART 100 UNIT/ML CARTRIDGE SQ PRN (05:39)
[2019-02-17 07:33] VITALS: BP 109/68
[2019-02-17] MEDS: POTASSIUM CHLORIDE 20 MEQ POWDER PACKET GT SCH (08:35)
[2019-02-17] MEDS: DOCUSATE SODIUM LIQ 100 MG/10 ML UDC GT SCH ×2 (08:35→17:01)
[2019-02-17] MEDS: FERROUS SULFATE - FOR SA ONLY 330 MG/7.5 ML UDC GT SCH ×3 (08:35→17:01)
[2019-02-17] MEDS: METFORMIN 850 MG TABLET GT SCH ×2 (08:35→17:01)
[2019-02-17] MEDS: LEVETIRACETAM SOL (5 ML) 100 MG/ML UDC GT SCH ×2 (08:35→21:30)
[2019-02-17] MEDS: ASCORBIC ACID 500 MG TABLET GT SCH ×2 (08:35→17:01)
[2019-02-17] MEDS: BACLOFEN (10 MG) 10 MG TABLET GT SCH ×2 (08:35→21:30)
[2019-02-17] MEDS: PROSTAT (PYXIS) 30 ML UDC GT SCH ×2 (08:35→17:01)
[2019-02-17] MEDS: Z GUARD REMEDY 4 OZ OINT TP SCH ×2 (08:36→21:32)
[2019-02-17] MEDS: HEPARIN SODIUM, PORCINE 5000 UNITS/1 ML VIAL SQ SCH ×2 (08:36→21:32)
[2019-02-17] MEDS: HYDROGEN PEROXIDE 480 ML BOTTLE TP SCH ×2 (09:00→21:04)
--- NOTE | 2019-02-17 16:00 | NUR ---
Resident noted with redness in the pubic area, informed with new order. Resident's sister Tosin notified.
[2019-02-17 19:45] VITALS: BP 120/82
[2019-02-17] MEDS: MULTIVIT W/MINERALS 1 TAB TABLET GT SCH (21:30)
[2019-02-17] MEDS: NYSTATIN TOP POWDER 15 GM BOTTLE TP SCH (21:32)
[2019-02-17] MEDS: SENNOSIDES 8.6 MG TABLET GT SCH (21:32)
[2019-02-17] MEDS: [UNRECOGNIZED DRUG - OTHER] SQ SCH (21:33)
[2019-02-17] MEDS: BASAGLAR SQ SCH (21:33)
[2019-02-18] MEDS: ALBUTEROL FS 2.5 MG/3 ML VIAL.NEB NEB SCH ×4 (01:33→19:48)
[2019-02-18] MEDS: IPRATROPIUM NEB FS 0.5 MG/2.5 ML AMPUL.NEB NEB SCH ×4 (01:33→19:48)
[2019-02-18] MEDS: BLOOD SUGAR DIAGNOSTIC 1 EACH STRIP IN SCH ×2 (05:15→17:48)
[2019-02-18] MEDS: INSULIN LISPRO/ASPART 100 UNIT/ML CARTRIDGE SQ PRN (05:15)
[2019-02-18] MEDS: POLYVINYL ALCOHOL 15 ML BOTTLE EACHEYE SCH ×4 (05:15→23:52)
[2019-02-18] MEDS: OMEPRAZOLE DR 20 MG GT SCH (05:15)
[2019-02-18 07:51] VITALS: BP 116/69
[2019-02-18] MEDS: NYSTATIN TOP POWDER 15 GM BOTTLE TP SCH ×2 (09:00→20:09)
[2019-02-18] MEDS: DOCUSATE SODIUM LIQ 100 MG/10 ML UDC GT SCH ×2 (09:00→16:20)
[2019-02-18] MEDS: LEVETIRACETAM SOL (5 ML) 100 MG/ML UDC GT SCH ×2 (09:00→20:08)
[2019-02-18] MEDS: FERROUS SULFATE - FOR SA ONLY 330 MG/7.5 ML UDC GT SCH ×3 (09:00→16:20)
[2019-02-18] MEDS: Z GUARD REMEDY 4 OZ OINT TP SCH ×2 (09:00→20:09)
[2019-02-18] MEDS: POTASSIUM CHLORIDE 20 MEQ POWDER PACKET GT SCH (09:00)
[2019-02-18] MEDS: PROSTAT (PYXIS) 30 ML UDC GT SCH ×2 (09:00→16:21)
[2019-02-18] MEDS: ASCORBIC ACID 500 MG TABLET GT SCH ×2 (09:00→16:21)
[2019-02-18] MEDS: HEPARIN SODIUM, PORCINE 5000 UNITS/1 ML VIAL SQ SCH ×2 (09:00→20:09)
[2019-02-18] MEDS: BACLOFEN (10 MG) 10 MG TABLET GT SCH ×2 (09:00→20:08)
[2019-02-18] MEDS: METFORMIN 850 MG TABLET GT SCH ×2 (09:00→16:21)
[2019-02-18] MEDS: HYDROGEN PEROXIDE 480 ML BOTTLE TP SCH ×2 (09:00→19:48)
[2019-02-18 19:57] VITALS: BP 104/78
[2019-02-18] MEDS: MULTIVIT W/MINERALS 1 TAB TABLET GT SCH (20:08)
[2019-02-18] MEDS: SENNOSIDES 8.6 MG TABLET GT SCH (21:48)
[2019-02-18] MEDS: [UNRECOGNIZED DRUG - OTHER] SQ SCH (21:49)
[2019-02-18] MEDS: BASAGLAR SQ SCH (21:49)
--- NOTE | 2019-02-18 23:30 | NUR ---
PATIENT RECEIVED ON TRACH TO VENT WITH SETTINGS OF AC 12, 500 VT, 30%, +0. SUCTIONED WITH LAVAGE FOR MINIMAL, THIN, YELLOW-CREAM SECRETIONS. GIVEN IN-LINE TREATMENTS WITH NO ADVERSE REACTIONS. AMBU BAG AT BEDSIDE. VENT ALARM AUDIBLE AND VISIBLE. Addendum: 02/18/19 at 2335 by WHITNEY KLEIN RT Amended: Links added.
[2019-02-19] MEDS: IPRATROPIUM NEB FS 0.5 MG/2.5 ML AMPUL.NEB NEB SCH ×4 (00:57→20:03)
[2019-02-19] MEDS: ALBUTEROL FS 2.5 MG/3 ML VIAL.NEB NEB SCH ×4 (00:57→20:03)
[2019-02-19] MEDS: OMEPRAZOLE DR 20 MG GT SCH (05:04)
[2019-02-19] MEDS: POLYVINYL ALCOHOL 15 ML BOTTLE EACHEYE SCH ×3 (05:04→18:22)
[2019-02-19] MEDS: BLOOD SUGAR DIAGNOSTIC 1 EACH STRIP IN SCH ×2 (05:43→18:22)
[2019-02-19] MEDS: INSULIN LISPRO/ASPART 100 UNIT/ML CARTRIDGE SQ PRN ×2 (05:44→18:22)
[2019-02-19 07:58] VITALS: BP 109/69
[2019-02-19] MEDS: POTASSIUM CHLORIDE 20 MEQ POWDER PACKET GT SCH (08:42)
[2019-02-19] MEDS: DOCUSATE SODIUM LIQ 100 MG/10 ML UDC GT SCH ×2 (08:42→17:00)
[2019-02-19] MEDS: BACLOFEN (10 MG) 10 MG TABLET GT SCH ×2 (08:42→21:23)
[2019-02-19] MEDS: ASCORBIC ACID 500 MG TABLET GT SCH ×2 (08:42→17:00)
[2019-02-19] MEDS: FERROUS SULFATE - FOR SA ONLY 330 MG/7.5 ML UDC GT SCH ×3 (08:42→17:00)
[2019-02-19] MEDS: LEVETIRACETAM SOL (5 ML) 100 MG/ML UDC GT SCH ×2 (08:42→21:23)
[2019-02-19] MEDS: PROSTAT (PYXIS) 30 ML UDC GT SCH ×2 (08:42→17:00)
[2019-02-19] MEDS: METFORMIN 850 MG TABLET GT SCH ×2 (08:42→17:00)
[2019-02-19] MEDS: HEPARIN SODIUM, PORCINE 5000 UNITS/1 ML VIAL SQ SCH ×2 (08:43→21:25)
[2019-02-19] MEDS: HYDROGEN PEROXIDE 480 ML BOTTLE TP SCH ×2 (09:00→20:05)
[2019-02-19] MEDS: Z GUARD REMEDY 4 OZ OINT TP SCH ×2 (09:00→21:25)
[2019-02-19] MEDS: NYSTATIN TOP POWDER 15 GM BOTTLE TP SCH ×2 (09:00→21:25)
[2019-02-19 19:41] VITALS: BP 114/74
[2019-02-19 19:46] VITALS: BP 114/74
[2019-02-19] MEDS: MULTIVIT W/MINERALS 1 TAB TABLET GT SCH (21:27)
[2019-02-19] MEDS: SENNOSIDES 8.6 MG TABLET GT SCH (21:55)
[2019-02-19] MEDS: BASAGLAR SQ SCH (21:59)
[2019-02-19] MEDS: [UNRECOGNIZED DRUG - OTHER] SQ SCH (21:59)
[2019-02-20] MEDS: POLYVINYL ALCOHOL 15 ML BOTTLE EACHEYE SCH ×5 (00:05→23:03)
[2019-02-20] MEDS: IPRATROPIUM NEB FS 0.5 MG/2.5 ML AMPUL.NEB NEB SCH ×4 (01:36→20:22)
[2019-02-20] MEDS: ALBUTEROL FS 2.5 MG/3 ML VIAL.NEB NEB SCH ×4 (01:36→20:22)
[2019-02-20] MEDS: GLUCERNA 1.2 1,000 ML BOTTLE GT PRN (03:02)
[2019-02-20] MEDS: BLOOD SUGAR DIAGNOSTIC 1 EACH STRIP IN SCH ×2 (05:23→17:20)
[2019-02-20] MEDS: OMEPRAZOLE DR 20 MG GT SCH (05:25)
[2019-02-20 07:36] VITALS: BP 119/55
[2019-02-20] MEDS: Z GUARD REMEDY 4 OZ OINT TP SCH ×2 (09:00→20:59)
[2019-02-20] MEDS: HYDROGEN PEROXIDE 480 ML BOTTLE TP SCH ×2 (09:00→20:58)
[2019-02-20] MEDS: NYSTATIN TOP POWDER 15 GM BOTTLE TP SCH ×2 (09:00→20:59)
[2019-02-20] MEDS: ASCORBIC ACID 500 MG TABLET GT SCH ×2 (09:28→16:14)
[2019-02-20] MEDS: LEVETIRACETAM SOL (5 ML) 100 MG/ML UDC GT SCH ×2 (09:28→20:58)
[2019-02-20] MEDS: PROSTAT (PYXIS) 30 ML UDC GT SCH ×2 (09:28→16:14)
[2019-02-20] MEDS: FERROUS SULFATE - FOR SA ONLY 330 MG/7.5 ML UDC GT SCH ×3 (09:28→16:14)
[2019-02-20] MEDS: BACLOFEN (10 MG) 10 MG TABLET GT SCH ×2 (09:28→20:58)
[2019-02-20] MEDS: POTASSIUM CHLORIDE 20 MEQ POWDER PACKET GT SCH (09:28)
[2019-02-20] MEDS: METFORMIN 850 MG TABLET GT SCH ×2 (09:28→16:14)
[2019-02-20] MEDS: DOCUSATE SODIUM LIQ 100 MG/10 ML UDC GT SCH ×2 (09:28→16:14)
[2019-02-20] MEDS: HEPARIN SODIUM, PORCINE 5000 UNITS/1 ML VIAL SQ SCH ×2 (09:29→20:58)
--- NOTE | 2019-02-20 09:41 | NUR ---
SW called patients responsible democrat, Tosin Horvath [phone] to invite them to attend the family support group being held tomorrow February 21, 2019 from 11 am-12pm in the old admin conference room in the first floor. Per Tosin, she will attend the support group as it is her day off tomorrow. No further action required.
[2019-02-20] MEDS: BISACODYL SUPP (10 MG) 10 MG/SUPP.RECT SUPP.RECT RC PRN (18:52)
[2019-02-20 19:53] VITALS: BP 124/74
[2019-02-20] MEDS: MULTIVIT W/MINERALS 1 TAB TABLET GT SCH (20:58)
[2019-02-20] MEDS: SENNOSIDES 8.6 MG TABLET GT SCH (21:00)
[2019-02-20] MEDS: [UNRECOGNIZED DRUG - OTHER] SQ SCH (21:01)
[2019-02-20] MEDS: BASAGLAR SQ SCH (21:01)
[2019-02-21] MEDS: ALBUTEROL FS 2.5 MG/3 ML VIAL.NEB NEB SCH ×4 (01:51→20:01)
[2019-02-21] MEDS: IPRATROPIUM NEB FS 0.5 MG/2.5 ML AMPUL.NEB NEB SCH ×4 (01:51→20:01)
[2019-02-21] MEDS: OMEPRAZOLE DR 20 MG GT SCH (05:29)
[2019-02-21] MEDS: BLOOD SUGAR DIAGNOSTIC 1 EACH STRIP IN SCH ×2 (05:29→17:00)
[2019-02-21] MEDS: POLYVINYL ALCOHOL 15 ML BOTTLE EACHEYE SCH ×3 (05:29→17:00)
[2019-02-21 07:51] VITALS: BP 104/64
[2019-02-21] MEDS: HYDROGEN PEROXIDE 480 ML BOTTLE TP SCH ×2 (08:29→21:09)
[2019-02-21] MEDS: Z GUARD REMEDY 4 OZ OINT TP SCH ×2 (09:00→21:12)
[2019-02-21] MEDS: NYSTATIN TOP POWDER 15 GM BOTTLE TP SCH ×2 (09:00→21:12)
[2019-02-21] MEDS: PROSTAT (PYXIS) 30 ML UDC GT SCH ×2 (09:50→16:51)
[2019-02-21] MEDS: METFORMIN 850 MG TABLET GT SCH ×2 (09:50→16:51)
[2019-02-21] MEDS: POTASSIUM CHLORIDE 20 MEQ POWDER PACKET GT SCH (09:50)
[2019-02-21] MEDS: FERROUS SULFATE - FOR SA ONLY 330 MG/7.5 ML UDC GT SCH ×3 (09:50→16:51)
[2019-02-21] MEDS: LEVETIRACETAM SOL (5 ML) 100 MG/ML UDC GT SCH ×2 (09:50→21:11)
[2019-02-21] MEDS: BACLOFEN (10 MG) 10 MG TABLET GT SCH ×2 (09:50→21:11)
[2019-02-21] MEDS: DOCUSATE SODIUM LIQ 100 MG/10 ML UDC GT SCH ×2 (09:50→16:50)
[2019-02-21] MEDS: ASCORBIC ACID 500 MG TABLET GT SCH ×2 (09:50→16:51)
[2019-02-21] MEDS: HEPARIN SODIUM, PORCINE 5000 UNITS/1 ML VIAL SQ SCH ×2 (09:53→21:11)
--- NOTE | 2019-02-21 15:32 | NUR ---
Family Support Group Note: Goal: Residents family will attend family support group held Thursday, February 21, 2019 from 11 am-12 pm. Intervention: SW facilitated family support group. SW explained a social workers role in subacute and purpose of the family support group. SW met the family where theyre at and explored what family can do to address concerns. SW provided validation, used reflective listening, reinforced familys current support for resident as family visit resident daily. SW encouraged responsible democrat to keep advocating for residents health care rights. SW explored whether the families concerns were detrimental in resident health or well-being. Response: Tosin is Zambian speaking only. Tosin expressed understanding SW role and purpose of support group. Tosin expressed concerns about pt. care. Tosin expressed understanding that she can advocate on the patients behalf and that SW may assist in facilitating communication with nursing staff. Tosin expressed that her concerns are not detrimental to the residents health or well-being and instead are preferences with care. Tosin stated, overall I am very satisfied with pt. care. Plan: Family will be invited to attend next family support Group held March 21, 2019 11 am-12 pm.
[2019-02-21] MEDS: INSULIN LISPRO/ASPART 100 UNIT/ML CARTRIDGE SQ PRN (17:01)
[2019-02-21 19:49] VITALS: BP 121/62
[2019-02-21] MEDS: MULTIVIT W/MINERALS 1 TAB TABLET GT SCH (21:11)
[2019-02-21] MEDS: SENNOSIDES 8.6 MG TABLET GT SCH (21:12)
[2019-02-21] MEDS: [UNRECOGNIZED DRUG - OTHER] SQ SCH (21:13)
[2019-02-21] MEDS: BASAGLAR SQ SCH (21:13)
[2019-02-22] MEDS: POLYVINYL ALCOHOL 15 ML BOTTLE EACHEYE SCH ×4 (00:35→17:00)
[2019-02-22] MEDS: IPRATROPIUM NEB FS 0.5 MG/2.5 ML AMPUL.NEB NEB SCH ×4 (01:40→19:55)
[2019-02-22] MEDS: ALBUTEROL FS 2.5 MG/3 ML VIAL.NEB NEB SCH ×4 (01:40→19:55)
[2019-02-22] MEDS: INSULIN LISPRO/ASPART 100 UNIT/ML CARTRIDGE SQ PRN (05:44)
[2019-02-22] MEDS: GLUCERNA 1.2 1,000 ML BOTTLE GT PRN (05:44)
[2019-02-22] MEDS: BLOOD SUGAR DIAGNOSTIC 1 EACH STRIP IN SCH ×2 (05:44→18:13)
[2019-02-22] MEDS: OMEPRAZOLE DR 20 MG GT SCH (05:44)
[2019-02-22 07:46] VITALS: BP 110/69
[2019-02-22] MEDS: FERROUS SULFATE - FOR SA ONLY 330 MG/7.5 ML UDC GT SCH ×3 (08:41→17:00)
[2019-02-22] MEDS: HEPARIN SODIUM, PORCINE 5000 UNITS/1 ML VIAL SQ SCH ×2 (08:41→21:57)
[2019-02-22] MEDS: ASCORBIC ACID 500 MG TABLET GT SCH ×2 (08:41→17:00)
[2019-02-22] MEDS: NYSTATIN TOP POWDER 15 GM BOTTLE TP SCH ×2 (08:41→21:57)
[2019-02-22] MEDS: POTASSIUM CHLORIDE 20 MEQ POWDER PACKET GT SCH (08:41)
[2019-02-22] MEDS: LEVETIRACETAM SOL (5 ML) 100 MG/ML UDC GT SCH ×2 (08:41→21:56)
[2019-02-22] MEDS: METFORMIN 850 MG TABLET GT SCH ×2 (08:41→17:00)
[2019-02-22] MEDS: PROSTAT (PYXIS) 30 ML UDC GT SCH ×2 (08:41→17:00)
[2019-02-22] MEDS: BACLOFEN (10 MG) 10 MG TABLET GT SCH ×2 (08:41→21:56)
[2019-02-22] MEDS: Z GUARD REMEDY 4 OZ OINT TP SCH ×2 (08:41→21:57)
[2019-02-22] MEDS: DOCUSATE SODIUM LIQ 100 MG/10 ML UDC GT SCH ×2 (08:41→17:00)
[2019-02-22] MEDS: HYDROGEN PEROXIDE 480 ML BOTTLE TP SCH ×2 (09:00→21:57)
[2019-02-22 19:42] VITALS: BP 104/70
[2019-02-22] MEDS: MULTIVIT W/MINERALS 1 TAB TABLET GT SCH (21:56)
[2019-02-22] MEDS: SENNOSIDES 8.6 MG TABLET GT SCH (21:57)
[2019-02-22] MEDS: BASAGLAR SQ SCH (21:58)
[2019-02-22] MEDS: [UNRECOGNIZED DRUG - OTHER] SQ SCH (21:58)
[2019-02-23] MEDS: POLYVINYL ALCOHOL 15 ML BOTTLE EACHEYE SCH ×4 (00:29→17:55)
[2019-02-23] MEDS: IPRATROPIUM NEB FS 0.5 MG/2.5 ML AMPUL.NEB NEB SCH ×4 (00:46→20:17)
[2019-02-23] MEDS: ALBUTEROL FS 2.5 MG/3 ML VIAL.NEB NEB SCH ×4 (00:46→20:17)
[2019-02-23] MEDS: OMEPRAZOLE DR 20 MG GT SCH (05:29)
[2019-02-23] MEDS: BLOOD SUGAR DIAGNOSTIC 1 EACH STRIP IN SCH ×2 (05:29→17:55)
[2019-02-23] MEDS: INSULIN LISPRO/ASPART 100 UNIT/ML CARTRIDGE SQ PRN ×2 (05:29→18:25)
[2019-02-23 07:45] VITALS: BP 112/75
[2019-02-23] MEDS: DOCUSATE SODIUM LIQ 100 MG/10 ML UDC GT SCH ×2 (08:43→17:55)
[2019-02-23] MEDS: LEVETIRACETAM SOL (5 ML) 100 MG/ML UDC GT SCH ×2 (08:43→21:02)
[2019-02-23] MEDS: ASCORBIC ACID 500 MG TABLET GT SCH ×2 (08:43→17:55)
[2019-02-23] MEDS: METFORMIN 850 MG TABLET GT SCH ×2 (08:43→17:55)
[2019-02-23] MEDS: PROSTAT (PYXIS) 30 ML UDC GT SCH ×2 (08:43→17:55)
[2019-02-23] MEDS: BACLOFEN (10 MG) 10 MG TABLET GT SCH ×2 (08:43→21:02)
[2019-02-23] MEDS: FERROUS SULFATE - FOR SA ONLY 330 MG/7.5 ML UDC GT SCH ×3 (08:43→17:55)
[2019-02-23] MEDS: POTASSIUM CHLORIDE 20 MEQ POWDER PACKET GT SCH (08:43)
[2019-02-23] MEDS: HEPARIN SODIUM, PORCINE 5000 UNITS/1 ML VIAL SQ SCH ×2 (08:44→21:02)
[2019-02-23] MEDS: Z GUARD REMEDY 4 OZ OINT TP SCH ×2 (08:45→21:02)
[2019-02-23] MEDS: NYSTATIN TOP POWDER 15 GM BOTTLE TP SCH ×2 (08:45→21:02)
[2019-02-23] MEDS: HYDROGEN PEROXIDE 480 ML BOTTLE TP SCH ×2 (09:00→21:00)
[2019-02-23] MEDS: GLUCERNA 1.2 1,000 ML BOTTLE GT PRN (11:30)
[2019-02-23 19:43] VITALS: BP 119/70
[2019-02-23] MEDS: MULTIVIT W/MINERALS 1 TAB TABLET GT SCH (21:02)
[2019-02-23] MEDS: [UNRECOGNIZED DRUG - OTHER] SQ SCH (21:03)
[2019-02-23] MEDS: BASAGLAR SQ SCH (21:03)
[2019-02-23] MEDS: SENNOSIDES 8.6 MG TABLET GT SCH (21:03)
[2019-02-24] MEDS: POLYVINYL ALCOHOL 15 ML BOTTLE EACHEYE SCH ×4 (00:10→17:54)
[2019-02-24] MEDS: ALBUTEROL FS 2.5 MG/3 ML VIAL.NEB NEB SCH ×4 (01:44→19:54)
[2019-02-24] MEDS: IPRATROPIUM NEB FS 0.5 MG/2.5 ML AMPUL.NEB NEB SCH ×4 (01:44→19:54)
[2019-02-24] MEDS: BLOOD SUGAR DIAGNOSTIC 1 EACH STRIP IN SCH ×2 (05:39→17:54)
[2019-02-24] MEDS: INSULIN LISPRO/ASPART 100 UNIT/ML CARTRIDGE SQ PRN ×2 (05:39→17:55)
[2019-02-24] MEDS: OMEPRAZOLE DR 20 MG GT SCH (05:39)
[2019-02-24] MEDS: POLYETHYLENE GLYCOL 3350 17 GM POWD.PACK GT PRN (06:47)
[2019-02-24 08:10] VITALS: BP 100/50
[2019-02-24] MEDS: HYDROGEN PEROXIDE 480 ML BOTTLE TP SCH ×2 (09:00→21:05)
[2019-02-24] MEDS: FERROUS SULFATE - FOR SA ONLY 330 MG/7.5 ML UDC GT SCH ×3 (09:55→17:54)
[2019-02-24] MEDS: ASCORBIC ACID 500 MG TABLET GT SCH ×2 (09:55→17:54)
[2019-02-24] MEDS: DOCUSATE SODIUM LIQ 100 MG/10 ML UDC GT SCH ×2 (09:55→17:54)
[2019-02-24] MEDS: LEVETIRACETAM SOL (5 ML) 100 MG/ML UDC GT SCH ×2 (09:55→21:04)
[2019-02-24] MEDS: METFORMIN 850 MG TABLET GT SCH ×2 (09:55→17:54)
[2019-02-24] MEDS: PROSTAT (PYXIS) 30 ML UDC GT SCH ×2 (09:55→17:54)
[2019-02-24] MEDS: POTASSIUM CHLORIDE 20 MEQ POWDER PACKET GT SCH (09:55)
[2019-02-24] MEDS: BACLOFEN (10 MG) 10 MG TABLET GT SCH ×2 (09:55→21:04)
[2019-02-24] MEDS: NYSTATIN TOP POWDER 15 GM BOTTLE TP SCH ×2 (09:56→21:05)
[2019-02-24] MEDS: HEPARIN SODIUM, PORCINE 5000 UNITS/1 ML VIAL SQ SCH ×2 (09:56→21:05)
[2019-02-24] MEDS: Z GUARD REMEDY 4 OZ OINT TP SCH ×2 (09:56→21:05)
[2019-02-24] MEDS: GLUCERNA 1.2 1,000 ML BOTTLE GT PRN (12:36)
[2019-02-24 20:18] VITALS: BP 100/67
[2019-02-24] MEDS: MULTIVIT W/MINERALS 1 TAB TABLET GT SCH (21:04)
[2019-02-24] MEDS: SENNOSIDES 8.6 MG TABLET GT SCH (21:05)
[2019-02-24] MEDS: BASAGLAR SQ SCH (21:06)
[2019-02-24] MEDS: [UNRECOGNIZED DRUG - OTHER] SQ SCH (21:06)
[2019-02-25] MEDS: POLYVINYL ALCOHOL 15 ML BOTTLE EACHEYE SCH ×5 (00:59→23:38)
[2019-02-25] MEDS: IPRATROPIUM NEB FS 0.5 MG/2.5 ML AMPUL.NEB NEB SCH ×4 (02:00→19:57)
[2019-02-25] MEDS: ALBUTEROL FS 2.5 MG/3 ML VIAL.NEB NEB SCH ×4 (02:00→19:57)
[2019-02-25] MEDS: INSULIN LISPRO/ASPART 100 UNIT/ML CARTRIDGE SQ PRN ×2 (05:26→17:25)
[2019-02-25] MEDS: BLOOD SUGAR DIAGNOSTIC 1 EACH STRIP IN SCH ×2 (05:26→17:24)
[2019-02-25] MEDS: OMEPRAZOLE DR 20 MG GT SCH (05:26)
[2019-02-25 07:45] VITALS: BP 112/67
[2019-02-25] MEDS: HYDROGEN PEROXIDE 480 ML BOTTLE TP SCH ×2 (09:00→20:01)
[2019-02-25] MEDS: ASCORBIC ACID 500 MG TABLET GT SCH ×2 (09:47→17:24)
[2019-02-25] MEDS: PROSTAT (PYXIS) 30 ML UDC GT SCH ×2 (09:47→17:24)
[2019-02-25] MEDS: DOCUSATE SODIUM LIQ 100 MG/10 ML UDC GT SCH ×2 (09:47→17:24)
[2019-02-25] MEDS: POTASSIUM CHLORIDE 20 MEQ POWDER PACKET GT SCH (09:47)
[2019-02-25] MEDS: FERROUS SULFATE - FOR SA ONLY 330 MG/7.5 ML UDC GT SCH ×3 (09:47→17:24)
[2019-02-25] MEDS: BACLOFEN (10 MG) 10 MG TABLET GT SCH ×2 (09:47→20:01)
[2019-02-25] MEDS: LEVETIRACETAM SOL (5 ML) 100 MG/ML UDC GT SCH ×2 (09:47→20:01)
[2019-02-25] MEDS: METFORMIN 850 MG TABLET GT SCH ×2 (09:47→17:24)
[2019-02-25] MEDS: Z GUARD REMEDY 4 OZ OINT TP SCH ×2 (09:48→20:02)
[2019-02-25] MEDS: HEPARIN SODIUM, PORCINE 5000 UNITS/1 ML VIAL SQ SCH ×2 (09:48→21:06)
[2019-02-25] MEDS: NYSTATIN TOP POWDER 15 GM BOTTLE TP SCH ×2 (09:48→20:02)
[2019-02-25] MEDS: GLUCERNA 1.2 1,000 ML BOTTLE GT PRN (12:38)
--- NOTE | 2019-02-25 16:33 | NUR ---
RT NOTE PT REMAINS MECHANICALLY VENTILATED VIA CUFFED TRACHEOSTOMY TUBE. CUFF INFLATED. TRACH TUBE MIDLINE AND SECURE. VENTILATOR SETTINGS PRESCRIBED. ALARMS SET PER PROTOCOL AND AUDIBLE. VENT PLUGGED IN TO RED OUTLET. AMBU BAG AT BED SIDE. NO DISTRESS NOTED. Addendum: 02/25/19 at 1634 by VERÓNICA JUNIOR RT Amended: Links added.
[2019-02-25 19:56] VITALS: BP 123/72
[2019-02-25] MEDS: MULTIVIT W/MINERALS 1 TAB TABLET GT SCH (20:01)
[2019-02-25] MEDS: SENNOSIDES 8.6 MG TABLET GT SCH (21:05)
[2019-02-25] MEDS: [UNRECOGNIZED DRUG - OTHER] SQ SCH (21:32)
[2019-02-25] MEDS: BASAGLAR SQ SCH (21:32)
[2019-02-26] MEDS: IPRATROPIUM NEB FS 0.5 MG/2.5 ML AMPUL.NEB NEB SCH ×4 (01:43→20:27)
[2019-02-26] MEDS: ALBUTEROL FS 2.5 MG/3 ML VIAL.NEB NEB SCH ×4 (01:43→20:27)
[2019-02-26] MEDS: POLYVINYL ALCOHOL 15 ML BOTTLE EACHEYE SCH ×3 (05:09→17:42)
[2019-02-26] MEDS: OMEPRAZOLE DR 20 MG GT SCH (05:09)
[2019-02-26] MEDS: BLOOD SUGAR DIAGNOSTIC 1 EACH STRIP IN SCH ×2 (05:37→17:42)
[2019-02-26] MEDS: INSULIN LISPRO/ASPART 100 UNIT/ML CARTRIDGE SQ PRN ×2 (05:56→17:43)
[2019-02-26] MEDS: HYDROGEN PEROXIDE 480 ML BOTTLE TP SCH ×2 (09:00→21:00)
[2019-02-26] MEDS: DOCUSATE SODIUM LIQ 100 MG/10 ML UDC GT SCH ×2 (09:33→17:42)
[2019-02-26] MEDS: FERROUS SULFATE - FOR SA ONLY 330 MG/7.5 ML UDC GT SCH ×3 (09:33→17:42)
[2019-02-26] MEDS: METFORMIN 850 MG TABLET GT SCH ×2 (09:33→17:42)
[2019-02-26] MEDS: POTASSIUM CHLORIDE 20 MEQ POWDER PACKET GT SCH (09:33)
[2019-02-26] MEDS: BACLOFEN (10 MG) 10 MG TABLET GT SCH ×2 (09:33→21:01)
[2019-02-26] MEDS: LEVETIRACETAM SOL (5 ML) 100 MG/ML UDC GT SCH ×2 (09:33→21:01)
[2019-02-26] MEDS: HEPARIN SODIUM, PORCINE 5000 UNITS/1 ML VIAL SQ SCH ×2 (09:34→21:02)
[2019-02-26] MEDS: ASCORBIC ACID 500 MG TABLET GT SCH ×2 (09:34→17:42)
[2019-02-26] MEDS: NYSTATIN TOP POWDER 15 GM BOTTLE TP SCH ×2 (09:34→21:02)
[2019-02-26] MEDS: PROSTAT (PYXIS) 30 ML UDC GT SCH ×2 (09:34→17:42)
[2019-02-26] MEDS: Z GUARD REMEDY 4 OZ OINT TP SCH ×2 (09:34→21:02)
[2019-02-26 11:25] VITALS: BP 129/69
[2019-02-26] MEDS: GLUCERNA 1.2 1,000 ML BOTTLE GT PRN (12:31)
[2019-02-26 19:52] VITALS: BP 111/70
[2019-02-26] MEDS: MULTIVIT W/MINERALS 1 TAB TABLET GT SCH (21:01)
[2019-02-26] MEDS: SENNOSIDES 8.6 MG TABLET GT SCH (21:02)
[2019-02-26] MEDS: [UNRECOGNIZED DRUG - OTHER] SQ SCH (21:03)
[2019-02-26] MEDS: BASAGLAR SQ SCH (21:03)
[2019-02-27] MEDS: POLYVINYL ALCOHOL 15 ML BOTTLE EACHEYE SCH ×4 (00:23→17:47)
[2019-02-27] MEDS: IPRATROPIUM NEB FS 0.5 MG/2.5 ML AMPUL.NEB NEB SCH ×4 (02:24→20:04)
[2019-02-27] MEDS: ALBUTEROL FS 2.5 MG/3 ML VIAL.NEB NEB SCH ×4 (02:24→20:04)
[2019-02-27] MEDS: OMEPRAZOLE DR 20 MG GT SCH (05:17)
[2019-02-27] MEDS: BLOOD SUGAR DIAGNOSTIC 1 EACH STRIP IN SCH ×2 (05:18→18:37)
[2019-02-27] MEDS: FERROUS SULFATE - FOR SA ONLY 330 MG/7.5 ML UDC GT SCH ×3 (08:30→17:46)
[2019-02-27] MEDS: METFORMIN 850 MG TABLET GT SCH ×2 (08:30→17:46)
[2019-02-27] MEDS: LEVETIRACETAM SOL (5 ML) 100 MG/ML UDC GT SCH ×2 (08:30→21:26)
[2019-02-27] MEDS: POTASSIUM CHLORIDE 20 MEQ POWDER PACKET GT SCH (08:30)
[2019-02-27] MEDS: DOCUSATE SODIUM LIQ 100 MG/10 ML UDC GT SCH ×2 (08:30→17:46)
[2019-02-27] MEDS: BACLOFEN (10 MG) 10 MG TABLET GT SCH ×2 (08:30→21:26)
[2019-02-27] MEDS: ASCORBIC ACID 500 MG TABLET GT SCH ×2 (08:31→17:46)
[2019-02-27] MEDS: PROSTAT (PYXIS) 30 ML UDC GT SCH ×2 (08:31→17:46)
[2019-02-27] MEDS: HEPARIN SODIUM, PORCINE 5000 UNITS/1 ML VIAL SQ SCH ×2 (08:34→21:26)
[2019-02-27] MEDS: NYSTATIN TOP POWDER 15 GM BOTTLE TP SCH ×2 (08:34→21:26)
[2019-02-27] MEDS: Z GUARD REMEDY 4 OZ OINT TP SCH ×2 (08:34→21:26)
[2019-02-27] MEDS: HYDROGEN PEROXIDE 480 ML BOTTLE TP SCH ×2 (08:39→20:04)
[2019-02-27 10:43] VITALS: BP 113/72
--- NOTE | 2019-02-27 15:17 | NUR ---
IDT Care Plan Conference Invitation to family: ERVIN communicated pt.s Sister, Tosin Horvath [phone] that the next IDT meeting will be taking place this March 02 from 12:30-1:30pm in the SA activities room. Per Naomie, she not be able to attend.
[2019-02-27 20:23] VITALS: BP 118/76
[2019-02-27] MEDS: MULTIVIT W/MINERALS 1 TAB TABLET GT SCH (21:26)
[2019-02-27] MEDS: SENNOSIDES 8.6 MG TABLET GT SCH (21:27)
[2019-02-27] MEDS: BASAGLAR SQ SCH (21:27)
[2019-02-27] MEDS: [UNRECOGNIZED DRUG - OTHER] SQ SCH (21:27)
[2019-02-28] MEDS: POLYVINYL ALCOHOL 15 ML BOTTLE EACHEYE SCH ×4 (00:08→17:00)
[2019-02-28] MEDS: IPRATROPIUM NEB FS 0.5 MG/2.5 ML AMPUL.NEB NEB SCH ×4 (01:30→20:17)
[2019-02-28] MEDS: ALBUTEROL FS 2.5 MG/3 ML VIAL.NEB NEB SCH ×4 (01:30→20:17)
[2019-02-28] MEDS: BLOOD SUGAR DIAGNOSTIC 1 EACH STRIP IN SCH ×2 (06:02→17:57)
[2019-02-28] MEDS: OMEPRAZOLE DR 20 MG GT SCH (06:02)
--- NOTE | 2019-02-28 08:30 | NUR ---
Seen and examined by Dr. Dsuoza, no new order given.
[2019-02-28] MEDS: PROSTAT (PYXIS) 30 ML UDC GT SCH ×2 (08:44→16:59)
[2019-02-28] MEDS: BACLOFEN (10 MG) 10 MG TABLET GT SCH ×2 (08:44→20:38)
[2019-02-28] MEDS: FERROUS SULFATE - FOR SA ONLY 330 MG/7.5 ML UDC GT SCH ×3 (08:44→16:59)
[2019-02-28] MEDS: DOCUSATE SODIUM LIQ 100 MG/10 ML UDC GT SCH ×2 (08:44→16:59)
[2019-02-28] MEDS: ASCORBIC ACID 500 MG TABLET GT SCH ×2 (08:44→16:59)
[2019-02-28] MEDS: NYSTATIN TOP POWDER 15 GM BOTTLE TP SCH ×2 (08:44→20:39)
[2019-02-28] MEDS: LEVETIRACETAM SOL (5 ML) 100 MG/ML UDC GT SCH ×2 (08:44→20:38)
[2019-02-28] MEDS: POTASSIUM CHLORIDE 20 MEQ POWDER PACKET GT SCH (08:44)
[2019-02-28] MEDS: HEPARIN SODIUM, PORCINE 5000 UNITS/1 ML VIAL SQ SCH ×2 (08:44→20:38)
[2019-02-28] MEDS: METFORMIN 850 MG TABLET GT SCH ×2 (08:44→17:57)
[2019-02-28] MEDS: Z GUARD REMEDY 4 OZ OINT TP SCH ×2 (08:45→20:39)
[2019-02-28] MEDS: HYDROGEN PEROXIDE 480 ML BOTTLE TP SCH ×2 (09:00→20:17)
[2019-02-28 10:23] VITALS: BP 129/60
--- NOTE | 2019-02-28 13:00 | NUR ---
Seen and examined by Mya Rodgers NP no new order given.
[2019-02-28] MEDS: GLUCERNA 1.2 1,000 ML BOTTLE GT PRN (17:00)
[2019-02-28] MEDS: INSULIN LISPRO/ASPART 100 UNIT/ML CARTRIDGE SQ PRN (18:00)
[2019-02-28 19:39] VITALS: BP 110/73
--- NOTE | 2019-02-28 20:17 | NUR ---
RT NOTE: RECEIVED TRACH PT ON [facility] VENT ON NOTED SETTINGS PER MD ORDERS. TRACH IS PATENT AND SECURED. TRACH CARE DONE. LICENSED GUIDE DONE. Q6 BREATHING TX GIVEN WITH NO ADVERSE REACTION NOTED. SX DONE PRN. VENT PLUGGED INTO RED OUTLET. ALARMS ON AND AUDIBLE. ROSSYU BAG @ BEDSIDE. NO RESP DISTRESS AT THIS TIME. WILL CONT TO MONITOR PT. Addendum: 03/01/19 at 0312 by SHE BYRNE RT Amended: Links added.
[2019-02-28] MEDS: MULTIVIT W/MINERALS 1 TAB TABLET GT SCH (20:38)
[2019-02-28] MEDS: SENNOSIDES 8.6 MG TABLET GT SCH (21:47)
[2019-02-28] MEDS: [UNRECOGNIZED DRUG - OTHER] SQ SCH (21:48)
[2019-02-28] MEDS: BASAGLAR SQ SCH (21:48)
[2019-03-01] MEDS: POLYVINYL ALCOHOL 15 ML BOTTLE EACHEYE SCH ×5 (00:26→23:18)
[2019-03-01] MEDS: IPRATROPIUM NEB FS 0.5 MG/2.5 ML AMPUL.NEB NEB SCH ×4 (01:30→20:20)
[2019-03-01] MEDS: ALBUTEROL FS 2.5 MG/3 ML VIAL.NEB NEB SCH ×4 (01:30→20:20)
[2019-03-01] MEDS: BLOOD SUGAR DIAGNOSTIC 1 EACH STRIP IN SCH ×2 (05:45→17:27)
[2019-03-01] MEDS: OMEPRAZOLE DR 20 MG GT SCH (05:45)
[2019-03-01] MEDS: INSULIN LISPRO/ASPART 100 UNIT/ML CARTRIDGE SQ PRN ×2 (05:46→17:27)
[2019-03-01 07:38] VITALS: BP 117/80
[2019-03-01] MEDS: POTASSIUM CHLORIDE 20 MEQ POWDER PACKET GT SCH (09:00)
[2019-03-01] MEDS: LEVETIRACETAM SOL (5 ML) 100 MG/ML UDC GT SCH ×2 (09:00→20:42)
[2019-03-01] MEDS: PROSTAT (PYXIS) 30 ML UDC GT SCH ×2 (09:00→17:27)
[2019-03-01] MEDS: BACLOFEN (10 MG) 10 MG TABLET GT SCH ×2 (09:00→20:42)
[2019-03-01] MEDS: HEPARIN SODIUM, PORCINE 5000 UNITS/1 ML VIAL SQ SCH ×2 (09:00→20:43)
[2019-03-01] MEDS: HYDROGEN PEROXIDE 480 ML BOTTLE TP SCH ×2 (09:00→20:21)
[2019-03-01] MEDS: METFORMIN 850 MG TABLET GT SCH ×2 (09:00→17:26)
[2019-03-01] MEDS: NYSTATIN TOP POWDER 15 GM BOTTLE TP SCH ×2 (09:00→20:43)
[2019-03-01] MEDS: DOCUSATE SODIUM LIQ 100 MG/10 ML UDC GT SCH ×2 (09:00→17:26)
[2019-03-01] MEDS: ASCORBIC ACID 500 MG TABLET GT SCH ×2 (09:00→17:27)
[2019-03-01] MEDS: Z GUARD REMEDY 4 OZ OINT TP SCH ×2 (09:00→20:43)
[2019-03-01] MEDS: FERROUS SULFATE - FOR SA ONLY 330 MG/7.5 ML UDC GT SCH ×3 (09:00→17:26)
[2019-03-01] MEDS: GLUCERNA 1.2 1,000 ML BOTTLE GT PRN (17:27)
[2019-03-01 20:16] VITALS: BP 112/74
[2019-03-01] MEDS: MULTIVIT W/MINERALS 1 TAB TABLET GT SCH (20:43)
[2019-03-01] MEDS: SENNOSIDES 8.6 MG TABLET GT SCH (21:05)
[2019-03-01] MEDS: BASAGLAR SQ SCH (21:06)
[2019-03-01] MEDS: [UNRECOGNIZED DRUG - OTHER] SQ SCH (21:06)
--- NOTE | 2019-03-01 21:15 | NUR ---
Seen and examined by Mya PHILIPPE.
[2019-03-02] MEDS: IPRATROPIUM NEB FS 0.5 MG/2.5 ML AMPUL.NEB NEB SCH ×4 (01:04→20:20)
[2019-03-02] MEDS: ALBUTEROL FS 2.5 MG/3 ML VIAL.NEB NEB SCH ×4 (01:04→20:20)
--- NOTE | 2019-03-02 04:29 | NUR ---
PT RCVD TRACH'D ON MECHANICAL VENT WITH CHARTED SETTINGS. PT TUTU TX WELL. SX DONE. PT TRACH IS PATENT AND SECURE. VENT ALARMS APPEAR TO BE FUNCTIONING PROPERLY. VENT PLUGGED INTO RED OUTLET. AMBU BAG AT BEDSIDE. Addendum: 03/02/19 at 0431 by CHAGO HOLMAN RT Amended: Links added.
[2019-03-02] MEDS: BLOOD SUGAR DIAGNOSTIC 1 EACH STRIP IN SCH ×2 (05:19→17:34)
[2019-03-02] MEDS: POLYVINYL ALCOHOL 15 ML BOTTLE EACHEYE SCH ×4 (05:19→23:43)
[2019-03-02] MEDS: OMEPRAZOLE DR 20 MG GT SCH (05:19)
[2019-03-02] MEDS: INSULIN LISPRO/ASPART 100 UNIT/ML CARTRIDGE SQ PRN (05:20)
[2019-03-02 08:00] VITALS: BP 105/65
[2019-03-02] MEDS: HYDROGEN PEROXIDE 480 ML BOTTLE TP SCH ×2 (09:00→20:15)
[2019-03-02] MEDS: NYSTATIN TOP POWDER 15 GM BOTTLE TP SCH ×2 (09:00→20:15)
[2019-03-02] MEDS: LEVETIRACETAM SOL (5 ML) 100 MG/ML UDC GT SCH ×2 (09:12→20:14)
[2019-03-02] MEDS: FERROUS SULFATE - FOR SA ONLY 330 MG/7.5 ML UDC GT SCH ×3 (09:12→17:34)
[2019-03-02] MEDS: BACLOFEN (10 MG) 10 MG TABLET GT SCH ×2 (09:12→20:14)
[2019-03-02] MEDS: PROSTAT (PYXIS) 30 ML UDC GT SCH ×2 (09:12→17:34)
[2019-03-02] MEDS: HEPARIN SODIUM, PORCINE 5000 UNITS/1 ML VIAL SQ SCH ×2 (09:12→20:16)
[2019-03-02] MEDS: DOCUSATE SODIUM LIQ 100 MG/10 ML UDC GT SCH ×2 (09:12→17:34)
[2019-03-02] MEDS: ASCORBIC ACID 500 MG TABLET GT SCH ×2 (09:12→17:34)
[2019-03-02] MEDS: POTASSIUM CHLORIDE 20 MEQ POWDER PACKET GT SCH (09:12)
[2019-03-02] MEDS: METFORMIN 850 MG TABLET GT SCH ×2 (09:12→17:34)
[2019-03-02] MEDS: Z GUARD REMEDY 4 OZ OINT TP SCH ×2 (09:13→20:15)
--- NOTE | 2019-03-02 15:12 | NUR ---
INTERDISCIPLINARY TEAM PLAN OF CARE CONFERENCE was held today. The patient's responsible green party/ sister Tosin Horvath [phone] could not attend or participate via phone conference. Charge nurse communicated about pt.s redness in pubic area. Dr. Alvarez and interdisciplinary team discussed the current plan of care in detail. Current orders as well as treatments and medications were reviewed. See other discipline's IDT notes for further details.
[2019-03-02] MEDS: MULTIVIT W/MINERALS 1 TAB TABLET GT SCH (20:14)
[2019-03-02 20:33] VITALS: BP 119/77
[2019-03-02] MEDS: SENNOSIDES 8.6 MG TABLET GT SCH (21:06)
[2019-03-02] MEDS: [UNRECOGNIZED DRUG - OTHER] SQ SCH (21:07)
[2019-03-02] MEDS: BASAGLAR SQ SCH (21:07)
[2019-03-03] MEDS: IPRATROPIUM NEB FS 0.5 MG/2.5 ML AMPUL.NEB NEB SCH ×4 (02:15→20:06)
[2019-03-03] MEDS: ALBUTEROL FS 2.5 MG/3 ML VIAL.NEB NEB SCH ×4 (02:16→20:06)
[2019-03-03] MEDS: POLYVINYL ALCOHOL 15 ML BOTTLE EACHEYE SCH ×4 (05:05→23:35)
[2019-03-03] MEDS: OMEPRAZOLE DR 20 MG GT SCH (05:05)
[2019-03-03] MEDS: INSULIN LISPRO/ASPART 100 UNIT/ML CARTRIDGE SQ PRN ×2 (06:17→18:33)
[2019-03-03] MEDS: BLOOD SUGAR DIAGNOSTIC 1 EACH STRIP IN SCH ×2 (06:17→18:32)
[2019-03-03 07:55] VITALS: BP 111/71
[2019-03-03] MEDS: NYSTATIN TOP POWDER 15 GM BOTTLE TP SCH (09:00)
[2019-03-03] MEDS: HYDROGEN PEROXIDE 480 ML BOTTLE TP SCH ×2 (09:00→20:06)
[2019-03-03] MEDS: Z GUARD REMEDY 4 OZ OINT TP SCH ×2 (09:00→21:08)
[2019-03-03] MEDS: LEVETIRACETAM SOL (5 ML) 100 MG/ML UDC GT SCH ×2 (09:47→21:07)
[2019-03-03] MEDS: PROSTAT (PYXIS) 30 ML UDC GT SCH ×2 (09:47→17:00)
[2019-03-03] MEDS: DOCUSATE SODIUM LIQ 100 MG/10 ML UDC GT SCH ×2 (09:47→17:00)
[2019-03-03] MEDS: ASCORBIC ACID 500 MG TABLET GT SCH ×2 (09:47→17:00)
[2019-03-03] MEDS: FERROUS SULFATE - FOR SA ONLY 330 MG/7.5 ML UDC GT SCH ×3 (09:47→17:00)
[2019-03-03] MEDS: POTASSIUM CHLORIDE 20 MEQ POWDER PACKET GT SCH (09:47)
[2019-03-03] MEDS: BACLOFEN (10 MG) 10 MG TABLET GT SCH ×2 (09:47→21:07)
[2019-03-03] MEDS: METFORMIN 850 MG TABLET GT SCH ×2 (09:47→17:00)
[2019-03-03] MEDS: HEPARIN SODIUM, PORCINE 5000 UNITS/1 ML VIAL SQ SCH ×2 (09:49→21:08)
[2019-03-03] MEDS: GLUCERNA 1.2 1,000 ML BOTTLE GT PRN (18:33)
[2019-03-03 19:59] VITALS: BP 113/78
[2019-03-03] MEDS: MULTIVIT W/MINERALS 1 TAB TABLET GT SCH (21:07)
[2019-03-03] MEDS: SENNOSIDES 8.6 MG TABLET GT SCH (21:08)
[2019-03-03] MEDS: BASAGLAR SQ SCH (21:09)
[2019-03-03] MEDS: [UNRECOGNIZED DRUG - OTHER] SQ SCH (21:09)
[2019-03-04] MEDS: ALBUTEROL FS 2.5 MG/3 ML VIAL.NEB NEB SCH ×4 (02:13→20:02)
[2019-03-04] MEDS: IPRATROPIUM NEB FS 0.5 MG/2.5 ML AMPUL.NEB NEB SCH ×4 (02:13→20:02)
[2019-03-04] MEDS: BLOOD SUGAR DIAGNOSTIC 1 EACH STRIP IN SCH ×2 (05:12→18:10)
[2019-03-04] MEDS: INSULIN LISPRO/ASPART 100 UNIT/ML CARTRIDGE SQ PRN (05:12)
[2019-03-04] MEDS: OMEPRAZOLE DR 20 MG GT SCH (05:12)
[2019-03-04] MEDS: POLYVINYL ALCOHOL 15 ML BOTTLE EACHEYE SCH ×3 (05:12→18:10)
[2019-03-04 07:45] VITALS: BP 132/81
[2019-03-04] MEDS: HYDROGEN PEROXIDE 480 ML BOTTLE TP SCH ×2 (08:03→21:37)
[2019-03-04] MEDS: FERROUS SULFATE - FOR SA ONLY 330 MG/7.5 ML UDC GT SCH ×3 (08:25→16:42)
[2019-03-04] MEDS: DOCUSATE SODIUM LIQ 100 MG/10 ML UDC GT SCH ×2 (08:25→16:42)
[2019-03-04] MEDS: PROSTAT (PYXIS) 30 ML UDC GT SCH ×2 (08:27→16:42)
[2019-03-04] MEDS: POTASSIUM CHLORIDE 20 MEQ POWDER PACKET GT SCH (08:27)
[2019-03-04] MEDS: BACLOFEN (10 MG) 10 MG TABLET GT SCH ×2 (08:27→21:36)
[2019-03-04] MEDS: LEVETIRACETAM SOL (5 ML) 100 MG/ML UDC GT SCH ×2 (08:27→21:36)
[2019-03-04] MEDS: METFORMIN 850 MG TABLET GT SCH ×2 (08:27→16:42)
[2019-03-04] MEDS: Z GUARD REMEDY 4 OZ OINT TP SCH ×2 (08:28→21:37)
[2019-03-04] MEDS: ASCORBIC ACID 500 MG TABLET GT SCH ×2 (08:28→16:42)
[2019-03-04] MEDS: HEPARIN SODIUM, PORCINE 5000 UNITS/1 ML VIAL SQ SCH ×2 (08:29→21:36)
[2019-03-04] MEDS: GLUCERNA 1.2 1,000 ML BOTTLE GT PRN (16:43)
[2019-03-04 19:48] VITALS: BP 114/73
[2019-03-04] MEDS: MULTIVIT W/MINERALS 1 TAB TABLET GT SCH (21:36)
[2019-03-04] MEDS: SENNOSIDES 8.6 MG TABLET GT SCH (21:37)
[2019-03-04] MEDS: [UNRECOGNIZED DRUG - OTHER] SQ SCH (21:37)
[2019-03-04] MEDS: BASAGLAR SQ SCH (21:37)
[2019-03-05] MEDS: ALBUTEROL FS 2.5 MG/3 ML VIAL.NEB NEB SCH ×4 (01:29→20:14)
[2019-03-05] MEDS: IPRATROPIUM NEB FS 0.5 MG/2.5 ML AMPUL.NEB NEB SCH ×4 (01:29→20:14)
[2019-03-05] MEDS: POLYVINYL ALCOHOL 15 ML BOTTLE EACHEYE SCH ×5 (05:42→23:42)
[2019-03-05] MEDS: OMEPRAZOLE DR 20 MG GT SCH (05:43)
[2019-03-05] MEDS: BLOOD SUGAR DIAGNOSTIC 1 EACH STRIP IN SCH ×2 (05:43→18:06)
[2019-03-05] MEDS: INSULIN LISPRO/ASPART 100 UNIT/ML CARTRIDGE SQ PRN ×2 (05:43→18:06)
[2019-03-05 07:36] VITALS: BP 136/66
[2019-03-05] MEDS: PROSTAT (PYXIS) 30 ML UDC GT SCH ×2 (08:07→16:28)
[2019-03-05] MEDS: ASCORBIC ACID 500 MG TABLET GT SCH ×2 (08:07→16:28)
[2019-03-05] MEDS: BACLOFEN (10 MG) 10 MG TABLET GT SCH ×2 (08:07→20:18)
[2019-03-05] MEDS: LEVETIRACETAM SOL (5 ML) 100 MG/ML UDC GT SCH ×2 (08:07→20:18)
[2019-03-05] MEDS: POTASSIUM CHLORIDE 20 MEQ POWDER PACKET GT SCH (08:07)
[2019-03-05] MEDS: DOCUSATE SODIUM LIQ 100 MG/10 ML UDC GT SCH ×2 (08:07→16:28)
[2019-03-05] MEDS: FERROUS SULFATE - FOR SA ONLY 330 MG/7.5 ML UDC GT SCH ×3 (08:07→16:28)
[2019-03-05] MEDS: METFORMIN 850 MG TABLET GT SCH ×2 (08:07→16:28)
[2019-03-05] MEDS: HEPARIN SODIUM, PORCINE 5000 UNITS/1 ML VIAL SQ SCH ×2 (08:08→20:19)
[2019-03-05] MEDS: HYDROGEN PEROXIDE 480 ML BOTTLE TP SCH ×2 (09:00→20:14)
[2019-03-05] MEDS: Z GUARD REMEDY 4 OZ OINT TP SCH ×2 (09:00→20:19)
[2019-03-05] MEDS: GLUCERNA 1.2 1,000 ML BOTTLE GT PRN (15:16)
[2019-03-05 20:05] VITALS: BP 115/78
[2019-03-05] MEDS: MULTIVIT W/MINERALS 1 TAB TABLET GT SCH (20:18)
[2019-03-05] MEDS: SENNOSIDES 8.6 MG TABLET GT SCH (21:24)
[2019-03-05] MEDS: BASAGLAR SQ SCH (21:25)
[2019-03-05] MEDS: [UNRECOGNIZED DRUG - OTHER] SQ SCH (21:25)
[2019-03-06] MEDS: IPRATROPIUM NEB FS 0.5 MG/2.5 ML AMPUL.NEB NEB SCH ×4 (02:15→19:39)
[2019-03-06] MEDS: ALBUTEROL FS 2.5 MG/3 ML VIAL.NEB NEB SCH ×4 (02:15→19:39)
[2019-03-06] MEDS: POLYVINYL ALCOHOL 15 ML BOTTLE EACHEYE SCH ×3 (05:14→18:05)
[2019-03-06] MEDS: OMEPRAZOLE DR 20 MG GT SCH (05:14)
[2019-03-06] MEDS: BLOOD SUGAR DIAGNOSTIC 1 EACH STRIP IN SCH ×2 (06:01→18:05)
[2019-03-06] MEDS: INSULIN LISPRO/ASPART 100 UNIT/ML CARTRIDGE SQ PRN ×2 (06:01→18:05)
[2019-03-06 07:46] VITALS: BP 110/66
[2019-03-06] MEDS: PROSTAT (PYXIS) 30 ML UDC GT SCH ×2 (08:27→16:56)
[2019-03-06] MEDS: METFORMIN 850 MG TABLET GT SCH ×2 (08:27→16:56)
[2019-03-06] MEDS: LEVETIRACETAM SOL (5 ML) 100 MG/ML UDC GT SCH ×2 (08:27→20:31)
[2019-03-06] MEDS: POTASSIUM CHLORIDE 20 MEQ POWDER PACKET GT SCH (08:27)
[2019-03-06] MEDS: HEPARIN SODIUM, PORCINE 5000 UNITS/1 ML VIAL SQ SCH ×2 (08:27→20:31)
[2019-03-06] MEDS: DOCUSATE SODIUM LIQ 100 MG/10 ML UDC GT SCH ×2 (08:27→16:56)
[2019-03-06] MEDS: ASCORBIC ACID 500 MG TABLET GT SCH ×2 (08:27→16:56)
[2019-03-06] MEDS: BACLOFEN (10 MG) 10 MG TABLET GT SCH ×2 (08:27→20:31)
[2019-03-06] MEDS: FERROUS SULFATE - FOR SA ONLY 330 MG/7.5 ML UDC GT SCH ×3 (08:27→16:56)
[2019-03-06] MEDS: HYDROGEN PEROXIDE 480 ML BOTTLE TP SCH ×2 (09:00→19:39)
[2019-03-06] MEDS: Z GUARD REMEDY 4 OZ OINT TP SCH ×2 (09:00→20:32)
[2019-03-06] MEDS: GLUCERNA 1.2 1,000 ML BOTTLE GT PRN (15:35)
[2019-03-06 20:10] VITALS: BP 99/69
[2019-03-06] MEDS: MULTIVIT W/MINERALS 1 TAB TABLET GT SCH (20:31)
[2019-03-06] MEDS: SENNOSIDES 8.6 MG TABLET GT SCH (21:30)
[2019-03-06] MEDS: BASAGLAR SQ SCH (21:31)
[2019-03-06] MEDS: [UNRECOGNIZED DRUG - OTHER] SQ SCH (21:31)
[2019-03-07] MEDS: POLYVINYL ALCOHOL 15 ML BOTTLE EACHEYE SCH ×5 (00:48→23:53)
[2019-03-07] MEDS: IPRATROPIUM NEB FS 0.5 MG/2.5 ML AMPUL.NEB NEB SCH ×4 (01:30→20:19)
[2019-03-07] MEDS: ALBUTEROL FS 2.5 MG/3 ML VIAL.NEB NEB SCH ×4 (01:30→20:19)
[2019-03-07] MEDS: OMEPRAZOLE DR 20 MG GT SCH (05:19)
[2019-03-07] MEDS: BLOOD SUGAR DIAGNOSTIC 1 EACH STRIP IN SCH ×2 (05:46→18:17)
[2019-03-07] MEDS: INSULIN LISPRO/ASPART 100 UNIT/ML CARTRIDGE SQ PRN (05:46)
[2019-03-07 07:57] VITALS: BP 112/76
[2019-03-07] MEDS: Z GUARD REMEDY 4 OZ OINT TP SCH ×2 (09:00→20:38)
[2019-03-07] MEDS: HYDROGEN PEROXIDE 480 ML BOTTLE TP SCH ×2 (09:00→20:19)
[2019-03-07] MEDS: ASCORBIC ACID 500 MG TABLET GT SCH ×2 (09:36→16:46)
[2019-03-07] MEDS: POTASSIUM CHLORIDE 20 MEQ POWDER PACKET GT SCH (09:36)
[2019-03-07] MEDS: BACLOFEN (10 MG) 10 MG TABLET GT SCH ×2 (09:36→20:37)
[2019-03-07] MEDS: METFORMIN 850 MG TABLET GT SCH ×2 (09:36→16:45)
[2019-03-07] MEDS: HEPARIN SODIUM, PORCINE 5000 UNITS/1 ML VIAL SQ SCH ×2 (09:36→20:38)
[2019-03-07] MEDS: FERROUS SULFATE - FOR SA ONLY 330 MG/7.5 ML UDC GT SCH ×3 (09:36→16:45)
[2019-03-07] MEDS: LEVETIRACETAM SOL (5 ML) 100 MG/ML UDC GT SCH ×2 (09:36→20:37)
[2019-03-07] MEDS: PROSTAT (PYXIS) 30 ML UDC GT SCH ×2 (09:36→16:45)
[2019-03-07] MEDS: DOCUSATE SODIUM LIQ 100 MG/10 ML UDC GT SCH ×2 (09:36→16:45)
[2019-03-07] MEDS: GLUCERNA 1.2 1,000 ML BOTTLE GT PRN (19:13)
[2019-03-07 19:47] VITALS: BP 110/68
[2019-03-07] MEDS: MULTIVIT W/MINERALS 1 TAB TABLET GT SCH (20:37)
[2019-03-07] MEDS: SENNOSIDES 8.6 MG TABLET GT SCH (22:01)
[2019-03-07] MEDS: BASAGLAR SQ SCH (22:01)
[2019-03-07] MEDS: [UNRECOGNIZED DRUG - OTHER] SQ SCH (22:01)
[2019-03-08] MEDS: IPRATROPIUM NEB FS 0.5 MG/2.5 ML AMPUL.NEB NEB SCH ×4 (02:06→19:46)
[2019-03-08] MEDS: ALBUTEROL FS 2.5 MG/3 ML VIAL.NEB NEB SCH ×4 (02:06→19:46)
[2019-03-08] MEDS: OMEPRAZOLE DR 20 MG GT SCH (05:16)
[2019-03-08] MEDS: POLYVINYL ALCOHOL 15 ML BOTTLE EACHEYE SCH ×3 (05:16→17:06)
[2019-03-08] MEDS: BLOOD SUGAR DIAGNOSTIC 1 EACH STRIP IN SCH ×2 (05:55→17:16)
[2019-03-08] MEDS: INSULIN LISPRO/ASPART 100 UNIT/ML CARTRIDGE SQ PRN (05:55)
[2019-03-08 08:02] VITALS: BP 98/62
[2019-03-08] MEDS: DOCUSATE SODIUM LIQ 100 MG/10 ML UDC GT SCH ×2 (08:46→17:06)
[2019-03-08] MEDS: POTASSIUM CHLORIDE 20 MEQ POWDER PACKET GT SCH (08:46)
[2019-03-08] MEDS: LEVETIRACETAM SOL (5 ML) 100 MG/ML UDC GT SCH ×2 (08:46→20:37)
[2019-03-08] MEDS: METFORMIN 850 MG TABLET GT SCH ×2 (08:46→17:06)
[2019-03-08] MEDS: PROSTAT (PYXIS) 30 ML UDC GT SCH ×2 (08:46→17:06)
[2019-03-08] MEDS: FERROUS SULFATE - FOR SA ONLY 330 MG/7.5 ML UDC GT SCH ×3 (08:46→17:06)
[2019-03-08] MEDS: Z GUARD REMEDY 4 OZ OINT TP SCH ×2 (08:46→20:38)
[2019-03-08] MEDS: ASCORBIC ACID 500 MG TABLET GT SCH ×2 (08:46→17:06)
[2019-03-08] MEDS: BACLOFEN (10 MG) 10 MG TABLET GT SCH ×2 (08:46→20:37)
[2019-03-08] MEDS: HEPARIN SODIUM, PORCINE 5000 UNITS/1 ML VIAL SQ SCH ×2 (09:00→20:38)
[2019-03-08] MEDS: HYDROGEN PEROXIDE 480 ML BOTTLE TP SCH ×2 (09:00→19:46)
[2019-03-08] MEDS: GLUCERNA 1.2 1,000 ML BOTTLE GT PRN (17:16)
[2019-03-08 20:35] VITALS: BP 130/70
[2019-03-08] MEDS: MULTIVIT W/MINERALS 1 TAB TABLET GT SCH (20:37)
[2019-03-08] MEDS: SENNOSIDES 8.6 MG TABLET GT SCH (21:01)
[2019-03-08] MEDS: [UNRECOGNIZED DRUG - OTHER] SQ SCH (21:02)
[2019-03-08] MEDS: BASAGLAR SQ SCH (21:02)
[2019-03-09] MEDS: POLYVINYL ALCOHOL 15 ML BOTTLE EACHEYE SCH ×5 (00:01→23:09)
[2019-03-09] MEDS: IPRATROPIUM NEB FS 0.5 MG/2.5 ML AMPUL.NEB NEB SCH ×4 (01:59→19:55)
[2019-03-09] MEDS: ALBUTEROL FS 2.5 MG/3 ML VIAL.NEB NEB SCH ×4 (01:59→19:55)
[2019-03-09] MEDS: OMEPRAZOLE DR 20 MG GT SCH (05:10)
[2019-03-09] MEDS: BLOOD SUGAR DIAGNOSTIC 1 EACH STRIP IN SCH ×2 (05:20→18:15)
[2019-03-09] MEDS: INSULIN LISPRO/ASPART 100 UNIT/ML CARTRIDGE SQ PRN ×2 (05:20→18:22)
[2019-03-09 08:09] VITALS: BP 101/65
[2019-03-09] MEDS: HYDROGEN PEROXIDE 480 ML BOTTLE TP SCH ×2 (08:24→21:11)
[2019-03-09] MEDS: HEPARIN SODIUM, PORCINE 5000 UNITS/1 ML VIAL SQ SCH ×2 (09:00→21:24)
[2019-03-09] MEDS: BACLOFEN (10 MG) 10 MG TABLET GT SCH ×2 (09:00→21:11)
[2019-03-09] MEDS: POTASSIUM CHLORIDE 20 MEQ POWDER PACKET GT SCH (09:00)
[2019-03-09] MEDS: ASCORBIC ACID 500 MG TABLET GT SCH ×2 (09:00→17:00)
[2019-03-09] MEDS: METFORMIN 850 MG TABLET GT SCH ×2 (09:00→17:00)
[2019-03-09] MEDS: LEVETIRACETAM SOL (5 ML) 100 MG/ML UDC GT SCH ×2 (09:00→21:11)
[2019-03-09] MEDS: Z GUARD REMEDY 4 OZ OINT TP SCH ×2 (09:00→21:12)
[2019-03-09] MEDS: DOCUSATE SODIUM LIQ 100 MG/10 ML UDC GT SCH ×2 (09:00→17:00)
[2019-03-09] MEDS: FERROUS SULFATE - FOR SA ONLY 330 MG/7.5 ML UDC GT SCH ×3 (09:00→17:00)
[2019-03-09] MEDS: PROSTAT (PYXIS) 30 ML UDC GT SCH ×2 (09:00→17:00)
[2019-03-09] MEDS: GLUCERNA 1.2 1,000 ML BOTTLE GT PRN (18:18)
[2019-03-09 20:00] VITALS: BP 108/69
--- NOTE | 2019-03-09 20:46 | NUR ---
RT NOTE PT RECEIVED TRACHED ON MECHANICAL VENTILATION. AMBU BAG/BACK UP TRACH @ BEDSIDE. VENT PLUGGED TO RED OUTLET. ALARMS ON AND AUDIBLE. TX GIVEN, NO ADVERSE REACTIONS NOTED. SX DONE, TRACH SECURED AND PATENT. NO SOB NOTED AT THIS TIME. WILL CONTINUE TO MONITOR T/O SHIFT. Addendum: 03/09/19 at 2045 by ABIOLA COMBS RT Amended: Links added.
[2019-03-09] MEDS: MULTIVIT W/MINERALS 1 TAB TABLET GT SCH (21:11)
[2019-03-09] MEDS: SENNOSIDES 8.6 MG TABLET GT SCH (21:12)
[2019-03-09] MEDS: BASAGLAR SQ SCH (21:32)
[2019-03-09] MEDS: [UNRECOGNIZED DRUG - OTHER] SQ SCH (21:32)
[2019-03-10] MEDS: IPRATROPIUM NEB FS 0.5 MG/2.5 ML AMPUL.NEB NEB SCH ×4 (01:29→20:22)
[2019-03-10] MEDS: ALBUTEROL FS 2.5 MG/3 ML VIAL.NEB NEB SCH ×4 (01:29→20:21)
[2019-03-10] MEDS: OMEPRAZOLE DR 20 MG GT SCH (05:02)
[2019-03-10] MEDS: POLYVINYL ALCOHOL 15 ML BOTTLE EACHEYE SCH ×4 (05:02→23:13)
[2019-03-10] MEDS: BLOOD SUGAR DIAGNOSTIC 1 EACH STRIP IN SCH ×2 (05:03→17:55)
[2019-03-10] MEDS: INSULIN LISPRO/ASPART 100 UNIT/ML CARTRIDGE SQ PRN ×2 (05:04→17:55)
[2019-03-10 07:41] VITALS: BP 110/72
[2019-03-10] MEDS: HYDROGEN PEROXIDE 480 ML BOTTLE TP SCH ×2 (09:00→20:45)
[2019-03-10] MEDS: Z GUARD REMEDY 4 OZ OINT TP SCH ×2 (09:00→20:45)
[2019-03-10] MEDS: FERROUS SULFATE - FOR SA ONLY 330 MG/7.5 ML UDC GT SCH ×3 (09:36→16:38)
[2019-03-10] MEDS: DOCUSATE SODIUM LIQ 100 MG/10 ML UDC GT SCH ×2 (09:36→16:38)
[2019-03-10] MEDS: METFORMIN 850 MG TABLET GT SCH ×2 (09:38→16:38)
[2019-03-10] MEDS: LEVETIRACETAM SOL (5 ML) 100 MG/ML UDC GT SCH ×2 (09:38→20:44)
[2019-03-10] MEDS: PROSTAT (PYXIS) 30 ML UDC GT SCH ×2 (09:38→16:38)
[2019-03-10] MEDS: POTASSIUM CHLORIDE 20 MEQ POWDER PACKET GT SCH (09:38)
[2019-03-10] MEDS: BACLOFEN (10 MG) 10 MG TABLET GT SCH ×2 (09:38→20:45)
[2019-03-10] MEDS: ASCORBIC ACID 500 MG TABLET GT SCH ×2 (09:39→16:38)
[2019-03-10] MEDS: HEPARIN SODIUM, PORCINE 5000 UNITS/1 ML VIAL SQ SCH ×2 (09:50→20:45)
[2019-03-10] MEDS: GLUCERNA 1.2 1,000 ML BOTTLE GT PRN (16:35)
[2019-03-10 20:28] VITALS: BP 117/73
[2019-03-10] MEDS: MULTIVIT W/MINERALS 1 TAB TABLET GT SCH (20:45)
[2019-03-10] MEDS: SENNOSIDES 8.6 MG TABLET GT SCH (21:04)
[2019-03-10] MEDS: BASAGLAR SQ SCH (21:05)
[2019-03-10] MEDS: [UNRECOGNIZED DRUG - OTHER] SQ SCH (21:05)
[2019-03-11] MEDS: IPRATROPIUM NEB FS 0.5 MG/2.5 ML AMPUL.NEB NEB SCH ×4 (01:41→19:21)
[2019-03-11] MEDS: ALBUTEROL FS 2.5 MG/3 ML VIAL.NEB NEB SCH ×4 (01:41→19:21)
[2019-03-11] MEDS: OMEPRAZOLE DR 20 MG GT SCH (05:17)
[2019-03-11] MEDS: POLYVINYL ALCOHOL 15 ML BOTTLE EACHEYE SCH ×3 (05:17→17:22)
[2019-03-11] MEDS: INSULIN LISPRO/ASPART 100 UNIT/ML CARTRIDGE SQ PRN (05:17)
[2019-03-11] MEDS: BLOOD SUGAR DIAGNOSTIC 1 EACH STRIP IN SCH ×2 (05:17→17:22)
[2019-03-11 07:58] VITALS: BP 98/62
[2019-03-11] MEDS: HYDROGEN PEROXIDE 480 ML BOTTLE TP SCH ×2 (09:00→21:18)
[2019-03-11] MEDS: POTASSIUM CHLORIDE 20 MEQ POWDER PACKET GT SCH (09:39)
[2019-03-11] MEDS: ASCORBIC ACID 500 MG TABLET GT SCH ×2 (09:39→16:33)
[2019-03-11] MEDS: FERROUS SULFATE - FOR SA ONLY 330 MG/7.5 ML UDC GT SCH ×3 (09:39→16:33)
[2019-03-11] MEDS: PROSTAT (PYXIS) 30 ML UDC GT SCH ×2 (09:39→16:33)
[2019-03-11] MEDS: BACLOFEN (10 MG) 10 MG TABLET GT SCH ×2 (09:39→21:17)
[2019-03-11] MEDS: DOCUSATE SODIUM LIQ 100 MG/10 ML UDC GT SCH ×2 (09:39→16:33)
[2019-03-11] MEDS: LEVETIRACETAM SOL (5 ML) 100 MG/ML UDC GT SCH ×2 (09:39→21:17)
[2019-03-11] MEDS: METFORMIN 850 MG TABLET GT SCH ×2 (09:39→16:33)
[2019-03-11] MEDS: HEPARIN SODIUM, PORCINE 5000 UNITS/1 ML VIAL SQ SCH ×2 (09:40→21:18)
[2019-03-11] MEDS: Z GUARD REMEDY 4 OZ OINT TP SCH ×2 (09:40→21:18)
[2019-03-11] MEDS: GLUCERNA 1.2 1,000 ML BOTTLE GT PRN (15:06)
[2019-03-11 20:50] VITALS: BP 105/71
[2019-03-11] MEDS: MULTIVIT W/MINERALS 1 TAB TABLET GT SCH (21:18)
[2019-03-11] MEDS: SENNOSIDES 8.6 MG TABLET GT SCH (21:18)
[2019-03-11] MEDS: BASAGLAR SQ SCH (21:19)
[2019-03-11] MEDS: [UNRECOGNIZED DRUG - OTHER] SQ SCH (21:19)
[2019-03-12] MEDS: IPRATROPIUM NEB FS 0.5 MG/2.5 ML AMPUL.NEB NEB SCH ×4 (01:30→19:45)
[2019-03-12] MEDS: ALBUTEROL FS 2.5 MG/3 ML VIAL.NEB NEB SCH ×4 (01:30→19:45)
[2019-03-12] MEDS: OMEPRAZOLE DR 20 MG GT SCH (06:14)
[2019-03-12] MEDS: INSULIN LISPRO/ASPART 100 UNIT/ML CARTRIDGE SQ PRN ×2 (06:14→17:59)
[2019-03-12] MEDS: BLOOD SUGAR DIAGNOSTIC 1 EACH STRIP IN SCH ×2 (06:14→17:58)
[2019-03-12] MEDS: POLYVINYL ALCOHOL 15 ML BOTTLE EACHEYE SCH ×4 (06:14→17:09)
[2019-03-12] MEDS: FERROUS SULFATE - FOR SA ONLY 330 MG/7.5 ML UDC GT SCH ×3 (08:41→17:09)
[2019-03-12] MEDS: METFORMIN 850 MG TABLET GT SCH ×2 (08:41→17:09)
[2019-03-12] MEDS: BACLOFEN (10 MG) 10 MG TABLET GT SCH ×2 (08:41→20:39)
[2019-03-12] MEDS: ASCORBIC ACID 500 MG TABLET GT SCH ×2 (08:41→17:09)
[2019-03-12] MEDS: LEVETIRACETAM SOL (5 ML) 100 MG/ML UDC GT SCH ×2 (08:41→20:33)
[2019-03-12] MEDS: DOCUSATE SODIUM LIQ 100 MG/10 ML UDC GT SCH ×2 (08:41→17:09)
[2019-03-12] MEDS: POTASSIUM CHLORIDE 20 MEQ POWDER PACKET GT SCH (08:41)
[2019-03-12] MEDS: PROSTAT (PYXIS) 30 ML UDC GT SCH ×2 (08:41→17:09)
[2019-03-12] MEDS: HEPARIN SODIUM, PORCINE 5000 UNITS/1 ML VIAL SQ SCH ×2 (08:42→20:35)
[2019-03-12] MEDS: Z GUARD REMEDY 4 OZ OINT TP SCH ×2 (09:00→20:41)
[2019-03-12] MEDS: HYDROGEN PEROXIDE 480 ML BOTTLE TP SCH ×2 (09:00→21:00)
[2019-03-12] MEDS: GLUCERNA 1.2 1,000 ML BOTTLE GT PRN (17:00)
[2019-03-12 18:33] VITALS: BP 100/65
[2019-03-12 19:50] VITALS: BP 124/81
[2019-03-12 19:52] VITALS: BP 124/71
[2019-03-12] MEDS: SENNOSIDES 8.6 MG TABLET GT SCH (20:43)
[2019-03-12] MEDS: MULTIVIT W/MINERALS 1 TAB TABLET GT SCH (20:47)
[2019-03-12] MEDS: BASAGLAR SQ SCH (20:50)
[2019-03-12] MEDS: [UNRECOGNIZED DRUG - OTHER] SQ SCH (20:50)
[2019-03-13] MEDS: POLYVINYL ALCOHOL 15 ML BOTTLE EACHEYE SCH ×4 (00:35→17:13)
[2019-03-13] MEDS: ALBUTEROL FS 2.5 MG/3 ML VIAL.NEB NEB SCH ×4 (01:20→20:18)
[2019-03-13] MEDS: IPRATROPIUM NEB FS 0.5 MG/2.5 ML AMPUL.NEB NEB SCH ×4 (01:20→20:18)
[2019-03-13] MEDS: INSULIN LISPRO/ASPART 100 UNIT/ML CARTRIDGE SQ PRN ×2 (06:46→18:02)
[2019-03-13] MEDS: BLOOD SUGAR DIAGNOSTIC 1 EACH STRIP IN SCH ×2 (06:46→18:02)
[2019-03-13] MEDS: GLUCERNA 1.2 1,000 ML BOTTLE GT PRN (06:49)
[2019-03-13] MEDS: OMEPRAZOLE DR 20 MG GT SCH (06:49)
[2019-03-13 08:10] VITALS: BP 112/76
[2019-03-13] MEDS: Z GUARD REMEDY 4 OZ OINT TP SCH ×2 (09:00→20:25)
[2019-03-13] MEDS: HYDROGEN PEROXIDE 480 ML BOTTLE TP SCH ×2 (09:00→21:26)
[2019-03-13] MEDS: PROSTAT (PYXIS) 30 ML UDC GT SCH ×2 (09:58→17:13)
[2019-03-13] MEDS: DOCUSATE SODIUM LIQ 100 MG/10 ML UDC GT SCH ×2 (09:58→17:13)
[2019-03-13] MEDS: LEVETIRACETAM SOL (5 ML) 100 MG/ML UDC GT SCH ×2 (09:58→20:25)
[2019-03-13] MEDS: POTASSIUM CHLORIDE 20 MEQ POWDER PACKET GT SCH (09:58)
[2019-03-13] MEDS: METFORMIN 850 MG TABLET GT SCH ×2 (09:58→17:13)
[2019-03-13] MEDS: BACLOFEN (10 MG) 10 MG TABLET GT SCH ×2 (09:58→20:25)
[2019-03-13] MEDS: ASCORBIC ACID 500 MG TABLET GT SCH ×2 (09:58→17:13)
[2019-03-13] MEDS: FERROUS SULFATE - FOR SA ONLY 330 MG/7.5 ML UDC GT SCH ×3 (09:58→17:16)
[2019-03-13] MEDS: HEPARIN SODIUM, PORCINE 5000 UNITS/1 ML VIAL SQ SCH ×2 (09:59→20:25)
[2019-03-13 20:00] VITALS: BP 112/74
--- NOTE | 2019-03-13 20:19 | NUR ---
RECEIVED TRACH PT ON MECH VENT WITH NOTED SETTINGS. PT IS OBTUNDED. TRACH IS PATENT AND SECURED. TANK CLEANER DONE. Q6 BREATHING TX GIVEN WITH NO ADVERSE REACTION NOTED. SX DONE PRN. VENT PLUGGED INTO RED OUTLET. ALARMS ON AND AUDIBLE. AMBU BAG @ BEDSIDE. NO RESP DISTRESS AT THIS TIME. WILL CONT TO MONITOR PT.
[2019-03-13] MEDS: MULTIVIT W/MINERALS 1 TAB TABLET GT SCH (20:25)
[2019-03-13] MEDS: SENNOSIDES 8.6 MG TABLET GT SCH (21:11)
[2019-03-13] MEDS: [UNRECOGNIZED DRUG - OTHER] SQ SCH (21:12)
[2019-03-13] MEDS: BASAGLAR SQ SCH (21:12)
[2019-03-14] MEDS: POLYVINYL ALCOHOL 15 ML BOTTLE EACHEYE SCH ×4 (00:19→17:04)
[2019-03-14] MEDS: IPRATROPIUM NEB FS 0.5 MG/2.5 ML AMPUL.NEB NEB SCH ×4 (01:21→20:15)
[2019-03-14] MEDS: ALBUTEROL FS 2.5 MG/3 ML VIAL.NEB NEB SCH ×4 (01:21→20:15)
[2019-03-14] MEDS: OMEPRAZOLE DR 20 MG GT SCH (05:32)
[2019-03-14] MEDS: GLUCERNA 1.2 1,000 ML BOTTLE GT PRN (05:32)
[2019-03-14] MEDS: INSULIN LISPRO/ASPART 100 UNIT/ML CARTRIDGE SQ PRN ×2 (06:12→17:16)
[2019-03-14] MEDS: BLOOD SUGAR DIAGNOSTIC 1 EACH STRIP IN SCH ×2 (06:12→17:15)
[2019-03-14 07:36] VITALS: BP 111/72
[2019-03-14] MEDS: HYDROGEN PEROXIDE 480 ML BOTTLE TP SCH ×2 (09:10→20:31)
--- NOTE | 2019-03-14 09:20 | NUR ---
Seen and examined by Dr. Dsouza no new order given.
[2019-03-14] MEDS: DOCUSATE SODIUM LIQ 100 MG/10 ML UDC GT SCH ×2 (09:47→17:03)
[2019-03-14] MEDS: FERROUS SULFATE - FOR SA ONLY 330 MG/7.5 ML UDC GT SCH ×3 (09:47→17:03)
[2019-03-14] MEDS: METFORMIN 850 MG TABLET GT SCH ×2 (09:47→17:03)
[2019-03-14] MEDS: ASCORBIC ACID 500 MG TABLET GT SCH ×2 (09:47→17:03)
[2019-03-14] MEDS: LEVETIRACETAM SOL (5 ML) 100 MG/ML UDC GT SCH ×2 (09:47→20:21)
[2019-03-14] MEDS: PROSTAT (PYXIS) 30 ML UDC GT SCH ×2 (09:47→17:03)
[2019-03-14] MEDS: POTASSIUM CHLORIDE 20 MEQ POWDER PACKET GT SCH (09:47)
[2019-03-14] MEDS: BACLOFEN (10 MG) 10 MG TABLET GT SCH ×2 (09:47→20:21)
[2019-03-14] MEDS: Z GUARD REMEDY 4 OZ OINT TP SCH ×2 (09:48→20:22)
[2019-03-14] MEDS: HEPARIN SODIUM, PORCINE 5000 UNITS/1 ML VIAL SQ SCH ×2 (09:48→20:22)
[2019-03-14] MEDS: POLYETHYLENE GLYCOL 3350 17 GM POWD.PACK GT PRN (10:00)
[2019-03-14] MEDS: BISACODYL SUPP (10 MG) 10 MG/SUPP.RECT SUPP.RECT RC PRN (16:50)
[2019-03-14 20:05] VITALS: BP 110/66
[2019-03-14] MEDS: MULTIVIT W/MINERALS 1 TAB TABLET GT SCH (20:21)
[2019-03-14] MEDS: [UNRECOGNIZED DRUG - OTHER] SQ SCH (22:00)
[2019-03-14] MEDS: BASAGLAR SQ SCH (22:00)
[2019-03-14] MEDS: SENNOSIDES 8.6 MG TABLET GT SCH (22:00)
[2019-03-15] MEDS: POLYVINYL ALCOHOL 15 ML BOTTLE EACHEYE SCH ×4 (00:35→17:09)
[2019-03-15] MEDS: IPRATROPIUM NEB FS 0.5 MG/2.5 ML AMPUL.NEB NEB SCH ×4 (00:52→20:17)
[2019-03-15] MEDS: ALBUTEROL FS 2.5 MG/3 ML VIAL.NEB NEB SCH ×4 (00:52→20:17)
[2019-03-15] MEDS: BLOOD SUGAR DIAGNOSTIC 1 EACH STRIP IN SCH ×2 (06:12→18:27)
[2019-03-15] MEDS: INSULIN LISPRO/ASPART 100 UNIT/ML CARTRIDGE SQ PRN (06:12)
[2019-03-15] MEDS: OMEPRAZOLE DR 20 MG GT SCH (06:12)
[2019-03-15 07:37] VITALS: BP 114/77
[2019-03-15] MEDS: HYDROGEN PEROXIDE 480 ML BOTTLE TP SCH ×2 (09:00→20:17)
[2019-03-15] MEDS: Z GUARD REMEDY 4 OZ OINT TP SCH ×2 (09:45→21:57)
[2019-03-15] MEDS: POTASSIUM CHLORIDE 20 MEQ POWDER PACKET GT SCH (09:45)
[2019-03-15] MEDS: LEVETIRACETAM SOL (5 ML) 100 MG/ML UDC GT SCH ×2 (09:45→21:56)
[2019-03-15] MEDS: BACLOFEN (10 MG) 10 MG TABLET GT SCH ×2 (09:45→21:56)
[2019-03-15] MEDS: METFORMIN 850 MG TABLET GT SCH ×2 (09:45→17:09)
[2019-03-15] MEDS: ASCORBIC ACID 500 MG TABLET GT SCH ×2 (09:45→17:09)
[2019-03-15] MEDS: HEPARIN SODIUM, PORCINE 5000 UNITS/1 ML VIAL SQ SCH ×2 (09:45→21:57)
[2019-03-15] MEDS: DOCUSATE SODIUM LIQ 100 MG/10 ML UDC GT SCH ×2 (09:45→17:09)
[2019-03-15] MEDS: FERROUS SULFATE - FOR SA ONLY 330 MG/7.5 ML UDC GT SCH ×3 (09:45→17:09)
[2019-03-15] MEDS: PROSTAT (PYXIS) 30 ML UDC GT SCH ×2 (09:45→17:09)
[2019-03-15] MEDS: GLUCERNA 1.2 1,000 ML BOTTLE GT PRN (19:15)
[2019-03-15 20:01] VITALS: BP 126/68
[2019-03-15] MEDS: MULTIVIT W/MINERALS 1 TAB TABLET GT SCH (21:56)
[2019-03-15] MEDS: SENNOSIDES 8.6 MG TABLET GT SCH (21:57)
[2019-03-15] MEDS: [UNRECOGNIZED DRUG - OTHER] SQ SCH (21:58)
[2019-03-15] MEDS: BASAGLAR SQ SCH (21:58)
[2019-03-16] MEDS: POLYVINYL ALCOHOL 15 ML BOTTLE EACHEYE SCH ×4 (00:47→17:59)
[2019-03-16] MEDS: IPRATROPIUM NEB FS 0.5 MG/2.5 ML AMPUL.NEB NEB SCH ×4 (02:12→19:53)
[2019-03-16] MEDS: ALBUTEROL FS 2.5 MG/3 ML VIAL.NEB NEB SCH ×4 (02:12→19:53)
[2019-03-16] MEDS: OMEPRAZOLE DR 20 MG GT SCH (05:22)
[2019-03-16] MEDS: BLOOD SUGAR DIAGNOSTIC 1 EACH STRIP IN SCH ×2 (06:54→18:00)
[2019-03-16] MEDS: GLUCERNA 1.2 1,000 ML BOTTLE GT PRN (06:55)
[2019-03-16] MEDS: INSULIN LISPRO/ASPART 100 UNIT/ML CARTRIDGE SQ PRN ×2 (06:55→18:00)
[2019-03-16] MEDS: HYDROGEN PEROXIDE 480 ML BOTTLE TP SCH ×2 (08:11→21:18)
[2019-03-16 08:13] VITALS: BP 99/65
[2019-03-16] MEDS: POTASSIUM CHLORIDE 20 MEQ POWDER PACKET GT SCH (08:38)
[2019-03-16] MEDS: DOCUSATE SODIUM LIQ 100 MG/10 ML UDC GT SCH ×2 (08:38→17:59)
[2019-03-16] MEDS: PROSTAT (PYXIS) 30 ML UDC GT SCH ×2 (08:38→17:59)
[2019-03-16] MEDS: METFORMIN 850 MG TABLET GT SCH ×2 (08:38→17:59)
[2019-03-16] MEDS: LEVETIRACETAM SOL (5 ML) 100 MG/ML UDC GT SCH ×2 (08:38→21:38)
[2019-03-16] MEDS: FERROUS SULFATE - FOR SA ONLY 330 MG/7.5 ML UDC GT SCH ×3 (08:38→17:59)
[2019-03-16] MEDS: BACLOFEN (10 MG) 10 MG TABLET GT SCH ×2 (08:38→21:38)
[2019-03-16] MEDS: ASCORBIC ACID 500 MG TABLET GT SCH ×2 (08:38→17:59)
[2019-03-16] MEDS: HEPARIN SODIUM, PORCINE 5000 UNITS/1 ML VIAL SQ SCH ×2 (08:43→21:42)
[2019-03-16] MEDS: Z GUARD REMEDY 4 OZ OINT TP SCH ×2 (08:43→21:18)
[2019-03-16 20:22] VITALS: BP 98/64
[2019-03-16] MEDS: SENNOSIDES 8.6 MG TABLET GT SCH (21:39)
[2019-03-16] MEDS: MULTIVIT W/MINERALS 1 TAB TABLET GT SCH (21:39)
[2019-03-16] MEDS: [UNRECOGNIZED DRUG - OTHER] SQ SCH (21:41)
[2019-03-16] MEDS: BASAGLAR SQ SCH (21:41)
--- NOTE | 2019-03-16 22:00 | NUR ---
G-TUBE RESIDUAL CHECKED=60ML, FEEDING HELD AT THIS TIME. NO SOB NOTED.
--- NOTE | 2019-03-17 00:30 | NUR ---
FEEDING RESIDUAL CHECKED AGAIN=NONE. TUBE FEEDING RESUMED, PATIENT TOLERATED.
[2019-03-17] MEDS: IPRATROPIUM NEB FS 0.5 MG/2.5 ML AMPUL.NEB NEB SCH ×4 (01:50→19:48)
[2019-03-17] MEDS: ALBUTEROL FS 2.5 MG/3 ML VIAL.NEB NEB SCH ×4 (01:50→19:48)
[2019-03-17] MEDS: OMEPRAZOLE DR 20 MG GT SCH (05:55)
[2019-03-17] MEDS: POLYVINYL ALCOHOL 15 ML BOTTLE EACHEYE SCH ×4 (05:55→17:08)
[2019-03-17] MEDS: BLOOD SUGAR DIAGNOSTIC 1 EACH STRIP IN SCH ×2 (06:00→18:07)
--- NOTE | 2019-03-17 06:08 | NUR ---
blood sugar =144, no coverage.
[2019-03-17 07:41] VITALS: BP 109/44
[2019-03-17] MEDS: FERROUS SULFATE - FOR SA ONLY 330 MG/7.5 ML UDC GT SCH ×3 (08:39→17:06)
[2019-03-17] MEDS: LEVETIRACETAM SOL (5 ML) 100 MG/ML UDC GT SCH ×2 (08:39→20:05)
[2019-03-17] MEDS: METFORMIN 850 MG TABLET GT SCH ×2 (08:39→17:07)
[2019-03-17] MEDS: DOCUSATE SODIUM LIQ 100 MG/10 ML UDC GT SCH ×2 (08:39→17:06)
[2019-03-17] MEDS: BACLOFEN (10 MG) 10 MG TABLET GT SCH ×2 (08:40→20:05)
[2019-03-17] MEDS: POTASSIUM CHLORIDE 20 MEQ POWDER PACKET GT SCH (08:40)
[2019-03-17] MEDS: ASCORBIC ACID 500 MG TABLET GT SCH ×2 (08:40→17:07)
[2019-03-17] MEDS: PROSTAT (PYXIS) 30 ML UDC GT SCH ×2 (08:46→17:07)
[2019-03-17] MEDS: Z GUARD REMEDY 4 OZ OINT TP SCH ×2 (09:00→20:06)
[2019-03-17] MEDS: HYDROGEN PEROXIDE 480 ML BOTTLE TP SCH ×2 (09:00→20:06)
[2019-03-17] MEDS: HEPARIN SODIUM, PORCINE 5000 UNITS/1 ML VIAL SQ SCH ×2 (09:00→21:43)
[2019-03-17] MEDS: INSULIN LISPRO/ASPART 100 UNIT/ML CARTRIDGE SQ PRN (18:07)
[2019-03-17 20:01] VITALS: BP 112/71
[2019-03-17] MEDS: MULTIVIT W/MINERALS 1 TAB TABLET GT SCH (20:06)
[2019-03-17] MEDS: SENNOSIDES 8.6 MG TABLET GT SCH (21:31)
[2019-03-17] MEDS: BASAGLAR SQ SCH (22:03)
[2019-03-17] MEDS: [UNRECOGNIZED DRUG - OTHER] SQ SCH (22:03)
[2019-03-18] MEDS: POLYVINYL ALCOHOL 15 ML BOTTLE EACHEYE SCH ×4 (00:01→17:05)
[2019-03-18] MEDS: ALBUTEROL FS 2.5 MG/3 ML VIAL.NEB NEB SCH ×4 (01:17→19:36)
[2019-03-18] MEDS: IPRATROPIUM NEB FS 0.5 MG/2.5 ML AMPUL.NEB NEB SCH ×4 (01:17→19:36)
[2019-03-18] MEDS: GLUCERNA 1.2 1,000 ML BOTTLE GT PRN (01:38)
[2019-03-18] MEDS: BLOOD SUGAR DIAGNOSTIC 1 EACH STRIP IN SCH ×2 (05:02→17:05)
[2019-03-18] MEDS: OMEPRAZOLE DR 20 MG GT SCH (05:02)
[2019-03-18 08:06] VITALS: BP 92/78
[2019-03-18] MEDS: PROSTAT (PYXIS) 30 ML UDC GT SCH ×2 (08:58→16:11)
[2019-03-18] MEDS: METFORMIN 850 MG TABLET GT SCH ×2 (08:58→16:11)
[2019-03-18] MEDS: ASCORBIC ACID 500 MG TABLET GT SCH ×2 (08:58→16:11)
[2019-03-18] MEDS: BACLOFEN (10 MG) 10 MG TABLET GT SCH ×2 (08:58→20:08)
[2019-03-18] MEDS: POTASSIUM CHLORIDE 20 MEQ POWDER PACKET GT SCH (08:58)
[2019-03-18] MEDS: DOCUSATE SODIUM LIQ 100 MG/10 ML UDC GT SCH ×2 (08:58→16:11)
[2019-03-18] MEDS: LEVETIRACETAM SOL (5 ML) 100 MG/ML UDC GT SCH ×2 (08:58→20:05)
[2019-03-18] MEDS: FERROUS SULFATE - FOR SA ONLY 330 MG/7.5 ML UDC GT SCH ×3 (08:58→16:11)
[2019-03-18] MEDS: HEPARIN SODIUM, PORCINE 5000 UNITS/1 ML VIAL SQ SCH ×2 (08:59→20:10)
[2019-03-18] MEDS: HYDROGEN PEROXIDE 480 ML BOTTLE TP SCH ×2 (09:00→21:00)
[2019-03-18] MEDS: Z GUARD REMEDY 4 OZ OINT TP SCH ×2 (09:03→20:10)
[2019-03-18] MEDS: MULTIVIT W/MINERALS 1 TAB TABLET GT SCH (20:08)
[2019-03-18] MEDS: SENNOSIDES 8.6 MG TABLET GT SCH (21:20)
[2019-03-18] MEDS: BASAGLAR SQ SCH (21:21)
[2019-03-18] MEDS: [UNRECOGNIZED DRUG - OTHER] SQ SCH (21:21)
[2019-03-19] MEDS: POLYVINYL ALCOHOL 15 ML BOTTLE EACHEYE SCH ×4 (00:10→17:35)
[2019-03-19] MEDS: IPRATROPIUM NEB FS 0.5 MG/2.5 ML AMPUL.NEB NEB SCH ×4 (00:36→19:47)
[2019-03-19] MEDS: ALBUTEROL FS 2.5 MG/3 ML VIAL.NEB NEB SCH ×4 (00:36→19:47)
[2019-03-19] MEDS: GLUCERNA 1.2 1,000 ML BOTTLE GT PRN (05:00)
[2019-03-19] MEDS: BLOOD SUGAR DIAGNOSTIC 1 EACH STRIP IN SCH ×2 (05:01→17:35)
[2019-03-19] MEDS: OMEPRAZOLE DR 20 MG GT SCH (05:01)
[2019-03-19] MEDS: INSULIN LISPRO/ASPART 100 UNIT/ML CARTRIDGE SQ PRN ×2 (05:03→17:37)
[2019-03-19 08:02] VITALS: BP 90/61
[2019-03-19] MEDS: DOCUSATE SODIUM LIQ 100 MG/10 ML UDC GT SCH ×2 (08:09→16:41)
[2019-03-19] MEDS: BACLOFEN (10 MG) 10 MG TABLET GT SCH ×2 (08:10→21:16)
[2019-03-19] MEDS: METFORMIN 850 MG TABLET GT SCH ×2 (08:10→16:41)
[2019-03-19] MEDS: LEVETIRACETAM SOL (5 ML) 100 MG/ML UDC GT SCH ×2 (08:10→21:16)
[2019-03-19] MEDS: FERROUS SULFATE - FOR SA ONLY 330 MG/7.5 ML UDC GT SCH ×3 (08:10→16:41)
[2019-03-19] MEDS: ASCORBIC ACID 500 MG TABLET GT SCH ×2 (08:10→16:41)
[2019-03-19] MEDS: POTASSIUM CHLORIDE 20 MEQ POWDER PACKET GT SCH (08:10)
[2019-03-19] MEDS: PROSTAT (PYXIS) 30 ML UDC GT SCH ×2 (08:10→16:41)
[2019-03-19] MEDS: HEPARIN SODIUM, PORCINE 5000 UNITS/1 ML VIAL SQ SCH ×2 (08:12→21:16)
[2019-03-19] MEDS: HYDROGEN PEROXIDE 480 ML BOTTLE TP SCH ×2 (08:24→21:17)
[2019-03-19] MEDS: Z GUARD REMEDY 4 OZ OINT TP SCH ×2 (09:00→21:17)
[2019-03-19 20:21] VITALS: BP 98/63
[2019-03-19] MEDS: MULTIVIT W/MINERALS 1 TAB TABLET GT SCH (21:16)
[2019-03-19] MEDS: SENNOSIDES 8.6 MG TABLET GT SCH (21:17)
[2019-03-19] MEDS: BASAGLAR SQ SCH (22:44)
[2019-03-19] MEDS: [UNRECOGNIZED DRUG - OTHER] SQ SCH (22:44)
[2019-03-20] MEDS: POLYVINYL ALCOHOL 15 ML BOTTLE EACHEYE SCH ×4 (00:05→18:10)
[2019-03-20] MEDS: ALBUTEROL FS 2.5 MG/3 ML VIAL.NEB NEB SCH ×4 (00:58→20:06)
[2019-03-20] MEDS: IPRATROPIUM NEB FS 0.5 MG/2.5 ML AMPUL.NEB NEB SCH ×4 (00:58→20:06)
[2019-03-20] MEDS: BLOOD SUGAR DIAGNOSTIC 1 EACH STRIP IN SCH ×2 (05:03→18:10)
[2019-03-20] MEDS: INSULIN LISPRO/ASPART 100 UNIT/ML CARTRIDGE SQ PRN ×2 (05:03→18:11)
[2019-03-20] MEDS: OMEPRAZOLE DR 20 MG GT SCH (05:03)
[2019-03-20 07:47] VITALS: BP 128/73
[2019-03-20] MEDS: LEVETIRACETAM SOL (5 ML) 100 MG/ML UDC GT SCH ×2 (08:47→20:02)
[2019-03-20] MEDS: METFORMIN 850 MG TABLET GT SCH ×2 (08:47→16:38)
[2019-03-20] MEDS: DOCUSATE SODIUM LIQ 100 MG/10 ML UDC GT SCH ×2 (08:47→16:38)
[2019-03-20] MEDS: FERROUS SULFATE - FOR SA ONLY 330 MG/7.5 ML UDC GT SCH ×3 (08:47→16:38)
[2019-03-20] MEDS: ASCORBIC ACID 500 MG TABLET GT SCH ×2 (08:48→16:38)
[2019-03-20] MEDS: HEPARIN SODIUM, PORCINE 5000 UNITS/1 ML VIAL SQ SCH ×2 (08:48→20:03)
[2019-03-20] MEDS: PROSTAT (PYXIS) 30 ML UDC GT SCH ×2 (08:48→16:38)
[2019-03-20] MEDS: BACLOFEN (10 MG) 10 MG TABLET GT SCH ×2 (08:48→20:02)
[2019-03-20] MEDS: POTASSIUM CHLORIDE 20 MEQ POWDER PACKET GT SCH (08:48)
[2019-03-20] MEDS: Z GUARD REMEDY 4 OZ OINT TP SCH ×2 (09:00→20:03)
[2019-03-20] MEDS: HYDROGEN PEROXIDE 480 ML BOTTLE TP SCH ×2 (09:00→20:06)
--- NOTE | 2019-03-20 11:45 | NUR ---
Seen and examined by Dr. Dsouza, aware of current weight, NNO given.
--- NOTE | 2019-03-20 16:07 | NUR ---
SW called patients responsible republican, Tosin Horvath [phone], to remind them that the family support group will be taking place 03/21/19 from 11 am-12 pm in the old admin conference room. Call went to voicemail and ERVIN left message with above stated details.
--- NOTE | 2019-03-20 19:15 | NUR ---
SEEN AND EXAMINED BY LORENZO ESTEVES. CLINIC DIRECTOR IS MADE AWARE OF CURRENT WEIGHT. LORENZO GOLL WITH NO NEW ORDERS.
[2019-03-20 19:52] VITALS: BP 123/80
[2019-03-20] MEDS: MULTIVIT W/MINERALS 1 TAB TABLET GT SCH (20:02)
[2019-03-20] MEDS: SENNOSIDES 8.6 MG TABLET GT SCH (21:32)
[2019-03-20] MEDS: [UNRECOGNIZED DRUG - OTHER] SQ SCH (21:33)
[2019-03-20] MEDS: BASAGLAR SQ SCH (21:33)
[2019-03-21] MEDS: POLYVINYL ALCOHOL 15 ML BOTTLE EACHEYE SCH ×5 (00:15→23:32)
[2019-03-21] MEDS: IPRATROPIUM NEB FS 0.5 MG/2.5 ML AMPUL.NEB NEB SCH ×4 (01:07→20:14)
[2019-03-21] MEDS: ALBUTEROL FS 2.5 MG/3 ML VIAL.NEB NEB SCH ×4 (01:07→20:14)
[2019-03-21] MEDS: GLUCERNA 1.2 1,000 ML BOTTLE GT PRN (03:03)
[2019-03-21] MEDS: OMEPRAZOLE DR 20 MG GT SCH (05:20)
[2019-03-21] MEDS: BLOOD SUGAR DIAGNOSTIC 1 EACH STRIP IN SCH ×2 (05:21→18:05)
[2019-03-21] MEDS: INSULIN LISPRO/ASPART 100 UNIT/ML CARTRIDGE SQ PRN ×2 (05:21→18:06)
[2019-03-21 08:00] VITALS: BP 99/62
[2019-03-21] MEDS: METFORMIN 850 MG TABLET GT SCH ×2 (08:23→16:46)
[2019-03-21] MEDS: DOCUSATE SODIUM LIQ 100 MG/10 ML UDC GT SCH ×2 (08:23→16:46)
[2019-03-21] MEDS: PROSTAT (PYXIS) 30 ML UDC GT SCH ×2 (08:23→16:46)
[2019-03-21] MEDS: ASCORBIC ACID 500 MG TABLET GT SCH ×2 (08:23→16:46)
[2019-03-21] MEDS: BACLOFEN (10 MG) 10 MG TABLET GT SCH ×2 (08:23→21:46)
[2019-03-21] MEDS: FERROUS SULFATE - FOR SA ONLY 330 MG/7.5 ML UDC GT SCH ×3 (08:23→16:46)
[2019-03-21] MEDS: LEVETIRACETAM SOL (5 ML) 100 MG/ML UDC GT SCH ×2 (08:23→21:45)
[2019-03-21] MEDS: POTASSIUM CHLORIDE 20 MEQ POWDER PACKET GT SCH (08:23)
[2019-03-21] MEDS: HEPARIN SODIUM, PORCINE 5000 UNITS/1 ML VIAL SQ SCH ×2 (08:24→21:46)
[2019-03-21] MEDS: Z GUARD REMEDY 4 OZ OINT TP SCH ×2 (08:24→21:47)
[2019-03-21] MEDS: HYDROGEN PEROXIDE 480 ML BOTTLE TP SCH ×2 (09:00→21:47)
[2019-03-21 20:01] VITALS: BP 106/74
[2019-03-21] MEDS: MULTIVIT W/MINERALS 1 TAB TABLET GT SCH (21:46)
[2019-03-21] MEDS: SENNOSIDES 8.6 MG TABLET GT SCH (21:47)
[2019-03-21] MEDS: BASAGLAR SQ SCH (21:48)
[2019-03-21] MEDS: [UNRECOGNIZED DRUG - OTHER] SQ SCH (21:48)
[2019-03-22] MEDS: ALBUTEROL FS 2.5 MG/3 ML VIAL.NEB NEB SCH ×4 (02:39→20:01)
[2019-03-22] MEDS: IPRATROPIUM NEB FS 0.5 MG/2.5 ML AMPUL.NEB NEB SCH ×4 (02:39→20:01)
[2019-03-22] MEDS: BLOOD SUGAR DIAGNOSTIC 1 EACH STRIP IN SCH ×2 (05:44→18:20)
[2019-03-22] MEDS: OMEPRAZOLE DR 20 MG GT SCH (05:44)
[2019-03-22] MEDS: POLYVINYL ALCOHOL 15 ML BOTTLE EACHEYE SCH ×4 (05:44→23:22)
[2019-03-22 07:39] VITALS: BP 101/68
[2019-03-22] MEDS: HYDROGEN PEROXIDE 480 ML BOTTLE TP SCH ×2 (08:16→20:02)
[2019-03-22] MEDS: LEVETIRACETAM SOL (5 ML) 100 MG/ML UDC GT SCH ×2 (08:31→20:48)
[2019-03-22] MEDS: METFORMIN 850 MG TABLET GT SCH ×2 (08:31→16:46)
[2019-03-22] MEDS: DOCUSATE SODIUM LIQ 100 MG/10 ML UDC GT SCH ×2 (08:31→16:46)
[2019-03-22] MEDS: HEPARIN SODIUM, PORCINE 5000 UNITS/1 ML VIAL SQ SCH ×2 (08:31→20:47)
[2019-03-22] MEDS: ASCORBIC ACID 500 MG TABLET GT SCH ×2 (08:31→16:46)
[2019-03-22] MEDS: POTASSIUM CHLORIDE 20 MEQ POWDER PACKET GT SCH (08:31)
[2019-03-22] MEDS: Z GUARD REMEDY 4 OZ OINT TP SCH ×2 (08:31→20:48)
[2019-03-22] MEDS: BACLOFEN (10 MG) 10 MG TABLET GT SCH ×2 (08:31→20:48)
[2019-03-22] MEDS: FERROUS SULFATE - FOR SA ONLY 330 MG/7.5 ML UDC GT SCH ×3 (08:31→16:46)
[2019-03-22] MEDS: PROSTAT (PYXIS) 30 ML UDC GT SCH ×2 (08:31→16:46)
--- NOTE | 2019-03-22 16:18 | NUR ---
ERVIN completed social insurance adviser portion of MDS. The patient's responsible libertarian is his aunt, Farnaz Kang [phone] who is involved and supportive. The patient presents awake, alert, non-verbal. The patient is Full Code and non-vent with trach. The patient's annual dental cleaning was on 10/16/18 by Dentist, Dr. Jackson. The patient had his annual optometry appointment with Dr. Sales on 09/15/18. Addendum: 03/22/19 at 1627 by MERARY MUELLER Disregard this note as it is for a different resident.
[2019-03-22 19:54] VITALS: BP 101/72
[2019-03-22 20:00] VITALS: BP 101/72
[2019-03-22] MEDS: MULTIVIT W/MINERALS 1 TAB TABLET GT SCH (20:42)
[2019-03-22] MEDS: SENNOSIDES 8.6 MG TABLET GT SCH (22:00)
[2019-03-22] MEDS: BASAGLAR SQ SCH (22:00)
[2019-03-22] MEDS: [UNRECOGNIZED DRUG - OTHER] SQ SCH (22:00)
[2019-03-23] MEDS: ALBUTEROL FS 2.5 MG/3 ML VIAL.NEB NEB SCH ×4 (00:59→19:32)
[2019-03-23] MEDS: IPRATROPIUM NEB FS 0.5 MG/2.5 ML AMPUL.NEB NEB SCH ×4 (00:59→19:32)
[2019-03-23] MEDS: POLYVINYL ALCOHOL 15 ML BOTTLE EACHEYE SCH ×3 (05:19→17:40)
[2019-03-23] MEDS: OMEPRAZOLE DR 20 MG GT SCH (05:19)
[2019-03-23] MEDS: INSULIN LISPRO/ASPART 100 UNIT/ML CARTRIDGE SQ PRN ×2 (05:22→17:41)
[2019-03-23] MEDS: BLOOD SUGAR DIAGNOSTIC 1 EACH STRIP IN SCH ×2 (05:23→17:40)
[2019-03-23] MEDS: HYDROGEN PEROXIDE 480 ML BOTTLE TP SCH ×2 (07:55→21:03)
[2019-03-23 08:00] VITALS: BP 105/68
[2019-03-23] MEDS: POTASSIUM CHLORIDE 20 MEQ POWDER PACKET GT SCH (08:28)
[2019-03-23] MEDS: METFORMIN 850 MG TABLET GT SCH ×2 (08:28→17:40)
[2019-03-23] MEDS: BACLOFEN (10 MG) 10 MG TABLET GT SCH ×2 (08:28→20:29)
[2019-03-23] MEDS: FERROUS SULFATE - FOR SA ONLY 330 MG/7.5 ML UDC GT SCH ×3 (08:28→17:40)
[2019-03-23] MEDS: PROSTAT (PYXIS) 30 ML UDC GT SCH ×2 (08:28→17:40)
[2019-03-23] MEDS: LEVETIRACETAM SOL (5 ML) 100 MG/ML UDC GT SCH ×2 (08:28→20:29)
[2019-03-23] MEDS: ASCORBIC ACID 500 MG TABLET GT SCH ×2 (08:28→17:40)
[2019-03-23] MEDS: DOCUSATE SODIUM LIQ 100 MG/10 ML UDC GT SCH ×2 (08:28→17:40)
[2019-03-23] MEDS: Z GUARD REMEDY 4 OZ OINT TP SCH ×2 (08:29→20:29)
[2019-03-23] MEDS: HEPARIN SODIUM, PORCINE 5000 UNITS/1 ML VIAL SQ SCH ×2 (08:29→20:29)
--- NOTE | 2019-03-23 08:42 | NUR ---
SW completed social service manager portion of annual MDS. The patients responsible libertarian is her sister, Tosin Horvath [phone] who is involved and supportive as she visits frequently. The patient is non-communicative, Full Code, on ventilator assistance and trach. The patient was last seen by their undercover operator, Dr. Sales on 11/25/17 and is legible to have their next appointment on 11/26/2019. The patient had their annual dental exam and cleaning on September 25, 2018.
[2019-03-23 20:06] VITALS: BP 111/63
[2019-03-23] MEDS: MULTIVIT W/MINERALS 1 TAB TABLET GT SCH (20:29)
[2019-03-23] MEDS: BASAGLAR SQ SCH (21:57)
[2019-03-23] MEDS: [UNRECOGNIZED DRUG - OTHER] SQ SCH (21:57)
[2019-03-23] MEDS: SENNOSIDES 8.6 MG TABLET GT SCH (21:57)
[2019-03-24] MEDS: POLYVINYL ALCOHOL 15 ML BOTTLE EACHEYE SCH ×5 (00:16→23:25)
[2019-03-24] MEDS: IPRATROPIUM NEB FS 0.5 MG/2.5 ML AMPUL.NEB NEB SCH ×4 (01:24→19:38)
[2019-03-24] MEDS: ALBUTEROL FS 2.5 MG/3 ML VIAL.NEB NEB SCH ×4 (01:24→19:38)
[2019-03-24] MEDS: OMEPRAZOLE DR 20 MG GT SCH (05:54)
[2019-03-24] MEDS: GLUCERNA 1.2 1,000 ML BOTTLE GT PRN (05:54)
[2019-03-24] MEDS: BLOOD SUGAR DIAGNOSTIC 1 EACH STRIP IN SCH ×2 (06:24→17:36)
[2019-03-24] MEDS: INSULIN LISPRO/ASPART 100 UNIT/ML CARTRIDGE SQ PRN ×2 (06:26→17:36)
[2019-03-24 08:11] VITALS: BP 105/70
[2019-03-24] MEDS: HYDROGEN PEROXIDE 480 ML BOTTLE TP SCH ×2 (09:00→21:07)
[2019-03-24] MEDS: POTASSIUM CHLORIDE 20 MEQ POWDER PACKET GT SCH (09:32)
[2019-03-24] MEDS: PROSTAT (PYXIS) 30 ML UDC GT SCH ×2 (09:32→17:36)
[2019-03-24] MEDS: DOCUSATE SODIUM LIQ 100 MG/10 ML UDC GT SCH ×2 (09:32→17:36)
[2019-03-24] MEDS: BACLOFEN (10 MG) 10 MG TABLET GT SCH ×2 (09:32→20:22)
[2019-03-24] MEDS: METFORMIN 850 MG TABLET GT SCH ×2 (09:32→17:36)
[2019-03-24] MEDS: LEVETIRACETAM SOL (5 ML) 100 MG/ML UDC GT SCH ×2 (09:32→20:22)
[2019-03-24] MEDS: ASCORBIC ACID 500 MG TABLET GT SCH ×2 (09:32→17:36)
[2019-03-24] MEDS: FERROUS SULFATE - FOR SA ONLY 330 MG/7.5 ML UDC GT SCH ×3 (09:32→17:36)
[2019-03-24] MEDS: HEPARIN SODIUM, PORCINE 5000 UNITS/1 ML VIAL SQ SCH ×2 (09:41→20:28)
[2019-03-24] MEDS: Z GUARD REMEDY 4 OZ OINT TP SCH ×2 (09:42→20:31)
[2019-03-24 20:22] VITALS: BP 119/80
[2019-03-24] MEDS: MULTIVIT W/MINERALS 1 TAB TABLET GT SCH (20:22)
[2019-03-24] MEDS: SENNOSIDES 8.6 MG TABLET GT SCH (21:58)
[2019-03-24] MEDS: [UNRECOGNIZED DRUG - OTHER] SQ SCH (21:59)
[2019-03-24] MEDS: BASAGLAR SQ SCH (21:59)
[2019-03-25] MEDS: IPRATROPIUM NEB FS 0.5 MG/2.5 ML AMPUL.NEB NEB SCH ×4 (01:42→20:09)
[2019-03-25] MEDS: ALBUTEROL FS 2.5 MG/3 ML VIAL.NEB NEB SCH ×4 (01:42→20:09)
[2019-03-25] MEDS: OMEPRAZOLE DR 20 MG GT SCH (06:08)
[2019-03-25] MEDS: BLOOD SUGAR DIAGNOSTIC 1 EACH STRIP IN SCH ×2 (06:08→17:36)
[2019-03-25] MEDS: POLYVINYL ALCOHOL 15 ML BOTTLE EACHEYE SCH ×3 (06:08→17:36)
[2019-03-25] MEDS: GLUCERNA 1.2 1,000 ML BOTTLE GT PRN (06:08)
[2019-03-25] MEDS: INSULIN LISPRO/ASPART 100 UNIT/ML CARTRIDGE SQ PRN ×2 (06:09→17:37)
[2019-03-25 08:02] VITALS: BP 108/76
[2019-03-25] MEDS: HYDROGEN PEROXIDE 480 ML BOTTLE TP SCH ×2 (09:00→20:09)
[2019-03-25] MEDS: LEVETIRACETAM SOL (5 ML) 100 MG/ML UDC GT SCH ×2 (09:38→20:02)
[2019-03-25] MEDS: METFORMIN 850 MG TABLET GT SCH ×2 (09:38→17:36)
[2019-03-25] MEDS: POTASSIUM CHLORIDE 20 MEQ POWDER PACKET GT SCH (09:38)
[2019-03-25] MEDS: ASCORBIC ACID 500 MG TABLET GT SCH ×2 (09:38→17:36)
[2019-03-25] MEDS: DOCUSATE SODIUM LIQ 100 MG/10 ML UDC GT SCH ×2 (09:38→17:36)
[2019-03-25] MEDS: BACLOFEN (10 MG) 10 MG TABLET GT SCH ×2 (09:38→20:03)
[2019-03-25] MEDS: FERROUS SULFATE - FOR SA ONLY 330 MG/7.5 ML UDC GT SCH ×3 (09:38→17:36)
[2019-03-25] MEDS: PROSTAT (PYXIS) 30 ML UDC GT SCH ×2 (09:38→17:36)
[2019-03-25] MEDS: HEPARIN SODIUM, PORCINE 5000 UNITS/1 ML VIAL SQ SCH ×2 (09:48→20:06)
[2019-03-25] MEDS: Z GUARD REMEDY 4 OZ OINT TP SCH ×2 (09:48→20:07)
[2019-03-25] MEDS: MULTIVIT W/MINERALS 1 TAB TABLET GT SCH (20:04)
[2019-03-25 20:14] VITALS: BP 115/67
[2019-03-25] MEDS: SENNOSIDES 8.6 MG TABLET GT SCH (22:28)
[2019-03-25] MEDS: [UNRECOGNIZED DRUG - OTHER] SQ SCH (22:29)
[2019-03-25] MEDS: BASAGLAR SQ SCH (22:29)
[2019-03-26] MEDS: POLYVINYL ALCOHOL 15 ML BOTTLE EACHEYE SCH ×4 (00:07→17:42)
[2019-03-26] MEDS: IPRATROPIUM NEB FS 0.5 MG/2.5 ML AMPUL.NEB NEB SCH ×4 (01:42→19:34)
[2019-03-26] MEDS: ALBUTEROL FS 2.5 MG/3 ML VIAL.NEB NEB SCH ×4 (01:42→19:34)
[2019-03-26] MEDS: GLUCERNA 1.2 1,000 ML BOTTLE GT PRN (04:49)
[2019-03-26] MEDS: OMEPRAZOLE DR 20 MG GT SCH (05:19)
[2019-03-26] MEDS: BLOOD SUGAR DIAGNOSTIC 1 EACH STRIP IN SCH ×2 (05:19→17:42)
[2019-03-26] MEDS: INSULIN LISPRO/ASPART 100 UNIT/ML CARTRIDGE SQ PRN ×2 (05:22→17:43)
[2019-03-26] MEDS: HYDROGEN PEROXIDE 480 ML BOTTLE TP SCH ×2 (07:36→21:00)
[2019-03-26 07:45] VITALS: BP 98/62
[2019-03-26] MEDS ORDERED: ALBUTEROL FS 2.5 MG/3 ML VIAL.NEB NEB PRN (09:30)
[2019-03-26] MEDS: POTASSIUM CHLORIDE 20 MEQ POWDER PACKET GT SCH (09:39)
[2019-03-26] MEDS: PROSTAT (PYXIS) 30 ML UDC GT SCH ×2 (09:39→17:42)
[2019-03-26] MEDS: Z GUARD REMEDY 4 OZ OINT TP SCH ×2 (09:39→20:09)
[2019-03-26] MEDS: ASCORBIC ACID 500 MG TABLET GT SCH ×2 (09:39→17:42)
[2019-03-26] MEDS: DOCUSATE SODIUM LIQ 100 MG/10 ML UDC GT SCH ×2 (09:39→17:42)
[2019-03-26] MEDS: FERROUS SULFATE - FOR SA ONLY 330 MG/7.5 ML UDC GT SCH ×3 (09:39→17:42)
[2019-03-26] MEDS: LEVETIRACETAM SOL (5 ML) 100 MG/ML UDC GT SCH ×2 (10:23→20:04)
[2019-03-26] MEDS: HEPARIN SODIUM, PORCINE 5000 UNITS/1 ML VIAL SQ SCH ×2 (10:24→20:08)
[2019-03-26] MEDS: BACLOFEN (10 MG) 10 MG TABLET GT SCH ×2 (10:24→20:05)
--- NOTE | 2019-03-26 14:24 | NUR ---
Asked Dr Neal to see pt for long toenails. He said he will trim pt's toenails on Tuesday03/30/19.
--- NOTE | 2019-03-26 15:35 | NUR ---
RT Pt received on ordered vent settings. Vent is plugged into red outlet w spare trach @ hob. Alarms are set and audible. Trach care done. No sob or respiratory distress noted through out shift. Addendum: 03/26/19 at 1813 by ANJUM FONG RT Amended: Links added.
[2019-03-26] MEDS: METFORMIN 850 MG TABLET GT SCH (17:42)
[2019-03-26] MEDS: MULTIVIT W/MINERALS 1 TAB TABLET GT SCH (20:07)
[2019-03-26 20:22] VITALS: BP 110/69
[2019-03-26] MEDS: BASAGLAR SQ SCH (22:49)
[2019-03-26] MEDS: [UNRECOGNIZED DRUG - OTHER] SQ SCH (22:49)
[2019-03-26] MEDS: SENNOSIDES 8.6 MG TABLET GT SCH (22:49)
[2019-03-27] MEDS: POLYVINYL ALCOHOL 15 ML BOTTLE EACHEYE SCH ×4 (00:18→17:03)
[2019-03-27] MEDS: IPRATROPIUM NEB FS 0.5 MG/2.5 ML AMPUL.NEB NEB SCH ×4 (01:41→19:16)
[2019-03-27] MEDS: ALBUTEROL FS 2.5 MG/3 ML VIAL.NEB NEB SCH ×4 (01:42→19:17)
[2019-03-27] MEDS: GLUCERNA 1.2 1,000 ML BOTTLE GT PRN (04:11)
[2019-03-27] MEDS: OMEPRAZOLE DR 20 MG GT SCH (05:18)
[2019-03-27] MEDS: BLOOD SUGAR DIAGNOSTIC 1 EACH STRIP IN SCH ×2 (05:18→17:02)
[2019-03-27] MEDS: INSULIN LISPRO/ASPART 100 UNIT/ML CARTRIDGE SQ PRN ×2 (05:19→17:03)
[2019-03-27 07:46] VITALS: BP 102/73
[2019-03-27] MEDS: HYDROGEN PEROXIDE 480 ML BOTTLE TP SCH ×2 (09:00→21:00)
[2019-03-27] MEDS: BACLOFEN (10 MG) 10 MG TABLET GT SCH ×2 (09:32→20:07)
[2019-03-27] MEDS: PROSTAT (PYXIS) 30 ML UDC GT SCH ×2 (09:32→16:51)
[2019-03-27] MEDS: FERROUS SULFATE - FOR SA ONLY 330 MG/7.5 ML UDC GT SCH ×3 (09:32→16:51)
[2019-03-27] MEDS: DOCUSATE SODIUM LIQ 100 MG/10 ML UDC GT SCH ×2 (09:32→16:51)
[2019-03-27] MEDS: LEVETIRACETAM SOL (5 ML) 100 MG/ML UDC GT SCH ×2 (09:32→20:07)
[2019-03-27] MEDS: POTASSIUM CHLORIDE 20 MEQ/15 ML GT SCH (09:32)
[2019-03-27] MEDS: METFORMIN 850 MG TABLET GT SCH ×2 (09:32→16:51)
[2019-03-27] MEDS: Z GUARD REMEDY 4 OZ OINT TP SCH ×3 (09:33→20:09)
[2019-03-27] MEDS: HEPARIN SODIUM, PORCINE 5000 UNITS/1 ML VIAL SQ SCH ×2 (09:33→20:08)
[2019-03-27] MEDS: ASCORBIC ACID 500 MG TABLET GT SCH ×2 (09:33→16:51)
--- NOTE | 2019-03-27 10:00 | NUR ---
RT Pt received on ordered vent settings. Vent is plugged into red outlet w spare trach @ hob. Trach care done. No sob or respiratory distress noted through out shift, will cont to monitor.
--- NOTE | 2019-03-27 12:48 | NUR ---
Pt was noted with a small area of MASD in the buttocks/gluteal cleft area. Received order to apply Z-guard cream q shift for 14 days. Notified sister.
[2019-03-27] MEDS: MULTIVIT W/MINERALS 1 TAB TABLET GT SCH (20:07)
[2019-03-27 20:12] VITALS: BP 111/71
[2019-03-27] MEDS: SENNOSIDES 8.6 MG TABLET GT SCH (21:38)
[2019-03-27] MEDS: BASAGLAR SQ SCH (21:42)
[2019-03-27] MEDS: [UNRECOGNIZED DRUG - OTHER] SQ SCH (21:42)
[2019-03-28] MEDS: POLYVINYL ALCOHOL 15 ML BOTTLE EACHEYE SCH ×5 (00:15→23:30)
[2019-03-28] MEDS: IPRATROPIUM NEB FS 0.5 MG/2.5 ML AMPUL.NEB NEB SCH ×4 (01:38→19:48)
[2019-03-28] MEDS: ALBUTEROL FS 2.5 MG/3 ML VIAL.NEB NEB SCH ×4 (01:38→19:48)
[2019-03-28] MEDS: GLUCERNA 1.2 1,000 ML BOTTLE GT PRN (04:03)
[2019-03-28] MEDS: OMEPRAZOLE DR 20 MG GT SCH (05:13)
[2019-03-28] MEDS: BLOOD SUGAR DIAGNOSTIC 1 EACH STRIP IN SCH ×2 (05:13→18:00)
[2019-03-28] MEDS: INSULIN LISPRO/ASPART 100 UNIT/ML CARTRIDGE SQ PRN ×2 (05:14→18:00)
[2019-03-28 07:49] VITALS: BP 103/61
[2019-03-28] MEDS: FERROUS SULFATE - FOR SA ONLY 330 MG/7.5 ML UDC GT SCH ×3 (08:05→16:44)
[2019-03-28] MEDS: DOCUSATE SODIUM LIQ 100 MG/10 ML UDC GT SCH ×2 (08:05→16:43)
[2019-03-28] MEDS: METFORMIN 850 MG TABLET GT SCH ×2 (08:06→16:44)
[2019-03-28] MEDS: POTASSIUM CHLORIDE 20 MEQ/15 ML GT SCH (08:06)
[2019-03-28] MEDS: ASCORBIC ACID 500 MG TABLET GT SCH ×2 (08:06→16:44)
[2019-03-28] MEDS: PROSTAT (PYXIS) 30 ML UDC GT SCH ×2 (08:06→16:44)
[2019-03-28] MEDS: LEVETIRACETAM SOL (5 ML) 100 MG/ML UDC GT SCH ×2 (08:06→20:42)
[2019-03-28] MEDS: HEPARIN SODIUM, PORCINE 5000 UNITS/1 ML VIAL SQ SCH ×2 (08:06→21:24)
[2019-03-28] MEDS: BACLOFEN (10 MG) 10 MG TABLET GT SCH ×2 (08:06→20:42)
[2019-03-28] MEDS: HYDROGEN PEROXIDE 480 ML BOTTLE TP SCH ×2 (09:00→19:48)
[2019-03-28] MEDS: Z GUARD REMEDY 4 OZ OINT TP SCH ×4 (09:00→21:05)
--- NOTE | 2019-03-28 10:04 | NUR ---
ERVIN called dental office [phone] and spoke to Mystery to schedule dental exam and cleaning for resident. Per Mystery Dr. Roman is available to see the patient on 04/11/19 12:30 pm. Charge Nurse and family Tosin [phone] were notified and were agreeable to plan.
--- NOTE | 2019-03-28 16:07 | NUR ---
RT Pt received on ordered vent settings. Vent is plugged into red outlet w spare trach @ hob. Alarms are set and audible. No sob or respiratory distress noted at this time. will continue to monitor. Addendum: 03/28/19 at 1608 by ARIS CRUZ RT Amended: Links added.
--- NOTE | 2019-03-28 16:19 | NUR ---
ERVIN Faxed residents face sheet to dental office [phone] for dental appointment 04/11/19 at 12:[address] Roman
--- NOTE | 2019-03-28 19:48 | NUR ---
RT NOTE: RECEIVED TRACH PT ON [facility] VENT ON NOTED SETTINGS PER MD ORDERS. TRACH CARE DONE AND IS PATENT AND SECURED. PORTFOLIO STRATEGIST DONE. Q6 BREATHING TX GIVEN WITH NO ADVERSE REACTION NOTED. SX DONE PRN. VENT PLUGGED INTO RED OUTLET. ALARMS ON AND AUDIBLE. ERIC BAG @ BEDSIDE. NO RESP DISTRESS AT THIS TIME. WILL CONT TO MONITOR PT. Addendum: 03/29/19 at 0238 by SHE BYRNE RT Amended: Links added.
[2019-03-28 20:21] VITALS: BP 110/64
[2019-03-28] MEDS: MULTIVIT W/MINERALS 1 TAB TABLET GT SCH (20:41)
[2019-03-28] MEDS: SENNOSIDES 8.6 MG TABLET GT SCH (22:10)
[2019-03-28] MEDS: [UNRECOGNIZED DRUG - OTHER] SQ SCH (22:44)
[2019-03-28] MEDS: BASAGLAR SQ SCH (22:44)
[2019-03-29] MEDS: IPRATROPIUM NEB FS 0.5 MG/2.5 ML AMPUL.NEB NEB SCH ×4 (01:40→20:09)
[2019-03-29] MEDS: ALBUTEROL FS 2.5 MG/3 ML VIAL.NEB NEB SCH ×4 (01:40→20:09)
[2019-03-29] MEDS: BLOOD SUGAR DIAGNOSTIC 1 EACH STRIP IN SCH ×2 (06:17→17:12)
[2019-03-29] MEDS: POLYVINYL ALCOHOL 15 ML BOTTLE EACHEYE SCH ×4 (06:17→23:33)
[2019-03-29] MEDS: OMEPRAZOLE DR 20 MG GT SCH (06:20)
[2019-03-29] MEDS: INSULIN LISPRO/ASPART 100 UNIT/ML CARTRIDGE SQ PRN (06:50)
[2019-03-29 07:35] VITALS: BP 91/47
[2019-03-29] MEDS: POTASSIUM CHLORIDE 20 MEQ/15 ML GT SCH (08:53)
[2019-03-29] MEDS: METFORMIN 850 MG TABLET GT SCH ×2 (08:53→17:12)
[2019-03-29] MEDS: LEVETIRACETAM SOL (5 ML) 100 MG/ML UDC GT SCH ×2 (08:53→20:16)
[2019-03-29] MEDS: DOCUSATE SODIUM LIQ 100 MG/10 ML UDC GT SCH ×2 (08:53→17:12)
[2019-03-29] MEDS: FERROUS SULFATE - FOR SA ONLY 330 MG/7.5 ML UDC GT SCH ×3 (08:53→17:12)
[2019-03-29] MEDS: PROSTAT (PYXIS) 30 ML UDC GT SCH ×2 (08:53→17:12)
[2019-03-29] MEDS: BACLOFEN (10 MG) 10 MG TABLET GT SCH ×2 (08:53→20:16)
[2019-03-29] MEDS: ASCORBIC ACID 500 MG TABLET GT SCH ×2 (08:54→17:12)
[2019-03-29] MEDS: HEPARIN SODIUM, PORCINE 5000 UNITS/1 ML VIAL SQ SCH ×2 (08:55→20:20)
[2019-03-29] MEDS: Z GUARD REMEDY 4 OZ OINT TP SCH ×4 (08:56→20:16)
[2019-03-29] MEDS: HYDROGEN PEROXIDE 480 ML BOTTLE TP SCH ×2 (09:00→20:16)
[2019-03-29] MEDS: MULTIVIT W/MINERALS 1 TAB TABLET GT SCH (20:16)
[2019-03-29 20:25] VITALS: BP 115/68
[2019-03-29] MEDS: SENNOSIDES 8.6 MG TABLET GT SCH (21:35)
[2019-03-29] MEDS: BASAGLAR SQ SCH (21:48)
[2019-03-29] MEDS: [UNRECOGNIZED DRUG - OTHER] SQ SCH (21:48)
[2019-03-30] MEDS: IPRATROPIUM NEB FS 0.5 MG/2.5 ML AMPUL.NEB NEB SCH ×4 (01:25→20:04)
[2019-03-30] MEDS: ALBUTEROL FS 2.5 MG/3 ML VIAL.NEB NEB SCH ×4 (01:25→20:04)
[2019-03-30] MEDS: POLYVINYL ALCOHOL 15 ML BOTTLE EACHEYE SCH ×3 (05:24→17:58)
[2019-03-30] MEDS: OMEPRAZOLE DR 20 MG GT SCH (05:24)
[2019-03-30] MEDS: BLOOD SUGAR DIAGNOSTIC 1 EACH STRIP IN SCH ×2 (05:41→17:58)
[2019-03-30 07:39] VITALS: BP 122/87
[2019-03-30] MEDS: HYDROGEN PEROXIDE 480 ML BOTTLE TP SCH ×2 (07:50→21:25)
[2019-03-30] MEDS: ASCORBIC ACID 500 MG TABLET GT SCH ×2 (08:47→17:58)
[2019-03-30] MEDS: BACLOFEN (10 MG) 10 MG TABLET GT SCH ×2 (08:47→20:25)
[2019-03-30] MEDS: METFORMIN 850 MG TABLET GT SCH ×2 (08:47→17:58)
[2019-03-30] MEDS: POTASSIUM CHLORIDE 20 MEQ/15 ML GT SCH (08:47)
[2019-03-30] MEDS: PROSTAT (PYXIS) 30 ML UDC GT SCH ×2 (08:47→17:58)
[2019-03-30] MEDS: DOCUSATE SODIUM LIQ 100 MG/10 ML UDC GT SCH ×2 (08:47→17:58)
[2019-03-30] MEDS: LEVETIRACETAM SOL (5 ML) 100 MG/ML UDC GT SCH ×2 (08:47→20:25)
[2019-03-30] MEDS: FERROUS SULFATE - FOR SA ONLY 330 MG/7.5 ML UDC GT SCH ×3 (08:47→17:58)
[2019-03-30] MEDS: Z GUARD REMEDY 4 OZ OINT TP SCH ×4 (08:48→21:00)
[2019-03-30] MEDS: HEPARIN SODIUM, PORCINE 5000 UNITS/1 ML VIAL SQ SCH ×2 (08:48→20:24)
--- NOTE | 2019-03-30 13:00 | NUR ---
Seen and examined by Dr. Neal, no new order given.
--- NOTE | 2019-03-30 16:10 | NUR ---
RT: RT NOTE: RECEIVED PT ON ORDERED NOTED VENT SETTINGS. NO RESPIRATORY DISTRESS NOTED. TRACH CHECKED SECURE AND PATENT. SXD AND LAVAGED PT Q ROUND AND NEEDED. TXS GIVEN ORDERED WITH NO ADVERSE REACTIONS NOTED. TRACH CARE DONE. SPARE TRACH AND AMBU BAG @ BEDSIDE. VENT PLUGGED INTO RED OUTLET.
[2019-03-30 20:00] VITALS: BP 108/70
[2019-03-30] MEDS: MULTIVIT W/MINERALS 1 TAB TABLET GT SCH (20:25)
[2019-03-30 20:36] VITALS: BP 108/70
--- NOTE | 2019-03-30 21:00 | NUR ---
G-TUBE RESIDUAL CHECKED- NO RESIDUAL.
[2019-03-30] MEDS: SENNOSIDES 8.6 MG TABLET GT SCH (22:26)
[2019-03-30] MEDS: [UNRECOGNIZED DRUG - OTHER] SQ SCH (22:46)
[2019-03-30] MEDS: BASAGLAR SQ SCH (22:46)
--- NOTE | 2019-03-30 23:40 | NUR ---
RT NOTE PATIENT RECEIVED IN STABLE CONDITION. PATIENT TOLERATING CURRENT ORDERED SETTINGS. NO SIGNS OF RESPIRATORY DISTRESS NOTED. TRACH IS PATENT, MIDLINE AND SECURE. ALARMS ARE ON AND AUDIBLE. MECHANICAL VENT IS PLUGGED INTO RED OUTLET. EMERGENCY EQUIPMENT AT PATIENT BEDSIDE. Addendum: 03/30/19 at 2341 by EVERARDO SMITH RT Amended: Links added.
[2019-03-31] MEDS: POLYVINYL ALCOHOL 15 ML BOTTLE EACHEYE SCH ×4 (00:38→17:46)
[2019-03-31] MEDS: IPRATROPIUM NEB FS 0.5 MG/2.5 ML AMPUL.NEB NEB SCH ×4 (02:10→19:57)
[2019-03-31] MEDS: ALBUTEROL FS 2.5 MG/3 ML VIAL.NEB NEB SCH ×4 (02:10→19:57)
[2019-03-31] MEDS: BLOOD SUGAR DIAGNOSTIC 1 EACH STRIP IN SCH ×2 (06:00→18:29)
[2019-03-31] MEDS: OMEPRAZOLE DR 20 MG GT SCH (06:26)
[2019-03-31] MEDS: GLUCERNA 1.2 1,000 ML BOTTLE GT PRN (06:28)
[2019-03-31 07:30] VITALS: BP 117/72
[2019-03-31] MEDS: ASCORBIC ACID 500 MG TABLET GT SCH ×2 (08:56→17:46)
[2019-03-31] MEDS: FERROUS SULFATE - FOR SA ONLY 330 MG/7.5 ML UDC GT SCH ×3 (08:56→17:46)
[2019-03-31] MEDS: PROSTAT (PYXIS) 30 ML UDC GT SCH ×2 (08:56→17:46)
[2019-03-31] MEDS: LEVETIRACETAM SOL (5 ML) 100 MG/ML UDC GT SCH ×2 (08:56→21:16)
[2019-03-31] MEDS: BACLOFEN (10 MG) 10 MG TABLET GT SCH ×2 (08:56→21:16)
[2019-03-31] MEDS: DOCUSATE SODIUM LIQ 100 MG/10 ML UDC GT SCH ×2 (08:56→17:46)
[2019-03-31] MEDS: METFORMIN 850 MG TABLET GT SCH ×2 (08:56→17:46)
[2019-03-31] MEDS: POTASSIUM CHLORIDE 20 MEQ/15 ML GT SCH (08:56)
[2019-03-31] MEDS: HEPARIN SODIUM, PORCINE 5000 UNITS/1 ML VIAL SQ SCH ×2 (08:58→21:17)
[2019-03-31] MEDS: Z GUARD REMEDY 4 OZ OINT TP SCH ×4 (08:58→21:17)
[2019-03-31] MEDS: HYDROGEN PEROXIDE 480 ML BOTTLE TP SCH ×2 (09:00→19:57)
--- NOTE | 2019-03-31 19:58 | NUR ---
RT NOTE: RECEIVED TRACH PT ON [facility] VENT ON NOTED SETTINGS PER MD ORDERS. TRACH IS PATENT AND SECURED. TRACH CARE DONE. CHIEF BUSINESS DEVELOPMENT OFFICER DONE. Q6 BREATHING TX GIVEN WITH NO ADVERSE REACTION NOTED. SX DONE PRN. VENT PLUGGED INTO RED OUTLET. ALARMS ON AND AUDIBLE. ROSSYU BAG @ BEDSIDE. NO RESP DISTRESS AT THIS TIME. WILL CONT TO MONITOR PT. Addendum: 03/31/19 at 2027 by SHE BYRNE RT Amended: Links added.
[2019-03-31 20:50] VITALS: BP 100/67
[2019-03-31] MEDS: MULTIVIT W/MINERALS 1 TAB TABLET GT SCH (21:16)
[2019-03-31] MEDS: SENNOSIDES 8.6 MG TABLET GT SCH (21:17)
[2019-03-31] MEDS: [UNRECOGNIZED DRUG - OTHER] SQ SCH (21:17)
[2019-03-31] MEDS: BASAGLAR SQ SCH (21:17)
[2019-04-01] MEDS: IPRATROPIUM NEB FS 0.5 MG/2.5 ML AMPUL.NEB NEB SCH ×4 (01:45→20:06)
[2019-04-01] MEDS: ALBUTEROL FS 2.5 MG/3 ML VIAL.NEB NEB SCH ×4 (01:45→20:06)
[2019-04-01] MEDS: OMEPRAZOLE DR 20 MG GT SCH (06:04)
[2019-04-01] MEDS: INSULIN LISPRO/ASPART 100 UNIT/ML CARTRIDGE SQ PRN ×2 (06:04→17:33)
[2019-04-01] MEDS: POLYVINYL ALCOHOL 15 ML BOTTLE EACHEYE SCH ×4 (06:04→17:32)
[2019-04-01] MEDS: BLOOD SUGAR DIAGNOSTIC 1 EACH STRIP IN SCH ×2 (06:04→17:33)
[2019-04-01] MEDS: GLUCERNA 1.2 1,000 ML BOTTLE GT PRN (06:05)
[2019-04-01 07:00] VITALS: BP 113/76
[2019-04-01] MEDS: HYDROGEN PEROXIDE 480 ML BOTTLE TP SCH ×2 (08:18→20:06)
[2019-04-01] MEDS: DOCUSATE SODIUM LIQ 100 MG/10 ML UDC GT SCH ×2 (08:46→17:32)
[2019-04-01] MEDS: FERROUS SULFATE - FOR SA ONLY 330 MG/7.5 ML UDC GT SCH ×3 (08:46→17:32)
[2019-04-01] MEDS: BACLOFEN (10 MG) 10 MG TABLET GT SCH ×2 (08:46→21:51)
[2019-04-01] MEDS: LEVETIRACETAM SOL (5 ML) 100 MG/ML UDC GT SCH ×2 (08:46→21:51)
[2019-04-01] MEDS: POTASSIUM CHLORIDE 20 MEQ/15 ML GT SCH (08:46)
[2019-04-01] MEDS: METFORMIN 850 MG TABLET GT SCH ×2 (08:46→17:32)
[2019-04-01] MEDS: ASCORBIC ACID 500 MG TABLET GT SCH ×2 (08:47→17:32)
[2019-04-01] MEDS: PROSTAT (PYXIS) 30 ML UDC GT SCH ×2 (08:47→17:32)
[2019-04-01] MEDS: HEPARIN SODIUM, PORCINE 5000 UNITS/1 ML VIAL SQ SCH ×2 (08:50→21:51)
[2019-04-01] MEDS: Z GUARD REMEDY 4 OZ OINT TP SCH ×4 (09:52→21:51)
--- NOTE | 2019-04-01 14:10 | NUR ---
Seen and examined by Dr. Dsouza, NNO given.
[2019-04-01 19:55] VITALS: BP 118/74
--- NOTE | 2019-04-01 20:06 | NUR ---
RT NOTE: RECEIVED TRACH PT ON [facility] VENT ON NOTED SETTINGS PER MD ORDERS. TRACH IS PATENT AND SECURED. TRACH CARE DONE. DARKROOM WORKER DONE. Q6 BREATHING TX GIVEN WITH NO ADVERSE REACTION NOTED. SX DONE PRN. VENT PLUGGED INTO RED OUTLET. ALARMS ON AND AUDIBLE. ROSSYU BAG @ BEDSIDE. NO RESP DISTRESS AT THIS TIME. WILL CONT TO MONITOR PT. Addendum: 04/01/19 at 2217 by SHE BYRNE RT Amended: Links added.
[2019-04-01] MEDS: MULTIVIT W/MINERALS 1 TAB TABLET GT SCH (21:51)
[2019-04-01] MEDS: SENNOSIDES 8.6 MG TABLET GT SCH (21:51)
[2019-04-01] MEDS: BASAGLAR SQ SCH (21:52)
[2019-04-01] MEDS: [UNRECOGNIZED DRUG - OTHER] SQ SCH (21:52)
[2019-04-02] MEDS: POLYVINYL ALCOHOL 15 ML BOTTLE EACHEYE SCH ×5 (00:36→23:21)
[2019-04-02] MEDS: ALBUTEROL FS 2.5 MG/3 ML VIAL.NEB NEB SCH ×4 (02:12→20:09)
[2019-04-02] MEDS: IPRATROPIUM NEB FS 0.5 MG/2.5 ML AMPUL.NEB NEB SCH ×4 (02:12→20:09)
[2019-04-02] MEDS: BLOOD SUGAR DIAGNOSTIC 1 EACH STRIP IN SCH ×2 (06:14→17:40)
[2019-04-02] MEDS: OMEPRAZOLE DR 20 MG GT SCH (06:14)
[2019-04-02] MEDS: GLUCERNA 1.2 1,000 ML BOTTLE GT PRN (06:16)
[2019-04-02] MEDS: INSULIN LISPRO/ASPART 100 UNIT/ML CARTRIDGE SQ PRN ×2 (06:16→17:42)
[2019-04-02 07:46] VITALS: BP 115/75
[2019-04-02] MEDS: HYDROGEN PEROXIDE 480 ML BOTTLE TP SCH ×2 (09:00→21:07)
--- NOTE | 2019-04-02 09:00 | NUR ---
RN NOTE METOPROLOL ON HOLD BECAUSE OF DIALYSIS.
[2019-04-02] MEDS: LEVETIRACETAM SOL (5 ML) 100 MG/ML UDC GT SCH ×2 (09:29→21:05)
[2019-04-02] MEDS: HEPARIN SODIUM, PORCINE 5000 UNITS/1 ML VIAL SQ SCH ×2 (09:30→21:06)
[2019-04-02] MEDS: METFORMIN 850 MG TABLET GT SCH ×2 (09:30→16:00)
[2019-04-02] MEDS: DOCUSATE SODIUM LIQ 100 MG/10 ML UDC GT SCH ×2 (09:31→16:00)
[2019-04-02] MEDS: BACLOFEN (10 MG) 10 MG TABLET GT SCH ×2 (09:31→21:05)
[2019-04-02] MEDS: FERROUS SULFATE - FOR SA ONLY 330 MG/7.5 ML UDC GT SCH ×3 (09:32→16:00)
[2019-04-02] MEDS: POTASSIUM CHLORIDE 20 MEQ/15 ML GT SCH (09:33)
[2019-04-02] MEDS: PROSTAT (PYXIS) 30 ML UDC GT SCH ×2 (09:34→16:00)
[2019-04-02] MEDS: Z GUARD REMEDY 4 OZ OINT TP SCH ×4 (09:34→21:07)
[2019-04-02] MEDS: ASCORBIC ACID 500 MG TABLET GT SCH ×2 (09:34→16:00)
--- NOTE | 2019-04-02 12:30 | NUR ---
RN NOTE PATIENT PICKED UP FOR DIALYSIS IN STABLE CONDITION WITH RT.NO SOB NO DISTRESS NOTED.PRN ZOFRAN GIVEN FOR VOMITING EPISODE X1.
[2019-04-02] MEDS: ACETAMINOPHEN 650 MG/20 ML UDC- SA PATIENTS-PAIN ONLY GT PRN (15:29)
--- NOTE | 2019-04-02 15:40 | NUR ---
RT Pt received trach'd and on vent w ordered settings. Vent is plugged into red outlet w spare trach @ hob. Alarms are set and audible. Trach care done. Pt is stable. No sob or respiratory distress noted through out shift. Will continue to monitor. Addendum: 04/02/19 at 1735 by ANJUM FONG RT Amended: Links added.
--- NOTE | 2019-04-02 16:30 | NUR ---
RN NOTE PATIENT BACK FROM [facility].VITAL SIGNS STABLE.VOMITING GREENISH CLEAR SECRETIONS.WILL CONTINUE TO MONITOR.
--- NOTE | 2019-04-02 18:00 | NUR ---
RN NOTE PRN REGLAN GIVEN FOR NAUSEA VOMITING.
[2019-04-02 20:59] VITALS: BP 124/75
[2019-04-02] MEDS: MULTIVIT W/MINERALS 1 TAB TABLET GT SCH (21:05)
[2019-04-02] MEDS: SENNOSIDES 8.6 MG TABLET GT SCH (21:07)
[2019-04-02] MEDS: [UNRECOGNIZED DRUG - OTHER] SQ SCH (21:08)
[2019-04-02] MEDS: BASAGLAR SQ SCH (21:08)
[2019-04-03] MEDS: ALBUTEROL FS 2.5 MG/3 ML VIAL.NEB NEB SCH ×4 (01:14→19:22)
[2019-04-03] MEDS: IPRATROPIUM NEB FS 0.5 MG/2.5 ML AMPUL.NEB NEB SCH ×4 (01:14→19:22)
--- NOTE | 2019-04-03 03:57 | NUR ---
PT RCVD LORNA'D ON MECHANICAL VENT WITH CHARTED SETTINGS. SX DONE. PT LORNA IS PATENT AND SECURE. VENT PLUGGED INTO RED OUTLET. ALARMS ARE ON AND AUDIBLE. AMBU BAG AT BEDSIDE. Addendum: 04/03/19 at 0357 by CHAGO HOLMAN RT Amended: Links added.
[2019-04-03] MEDS: POLYVINYL ALCOHOL 15 ML BOTTLE EACHEYE SCH ×3 (05:35→17:33)
[2019-04-03] MEDS: OMEPRAZOLE DR 20 MG GT SCH (05:35)
[2019-04-03] MEDS: BLOOD SUGAR DIAGNOSTIC 1 EACH STRIP IN SCH ×2 (05:35→18:42)
[2019-04-03 07:53] VITALS: BP 102/70
--- NOTE | 2019-04-03 08:43 | NUR ---
RT PT REC'D TRACH'D ON MECHANICAL VENT WITH CHARTED SETTINGS. NO SOB NOTED AT THIS TIME. PT TRACH IS PATENT AND SECURE. VENT PLUGGED INTO RED OUTLET. ALARMS ARE ON AND AUDIBLE. AMBU BAG AT BEDSIDE. Addendum: 04/03/19 at 0844 by ARIS CRUZ RT Amended: Links added.
[2019-04-03] MEDS: HYDROGEN PEROXIDE 480 ML BOTTLE TP SCH ×2 (09:00→20:33)
[2019-04-03] MEDS: Z GUARD REMEDY 4 OZ OINT TP SCH ×4 (09:00→20:34)
[2019-04-03] MEDS: DOCUSATE SODIUM LIQ 100 MG/10 ML UDC GT SCH ×2 (09:42→16:43)
[2019-04-03] MEDS: POTASSIUM CHLORIDE 20 MEQ/15 ML GT SCH (09:42)
[2019-04-03] MEDS: BACLOFEN (10 MG) 10 MG TABLET GT SCH ×2 (09:42→20:33)
[2019-04-03] MEDS: PROSTAT (PYXIS) 30 ML UDC GT SCH ×2 (09:42→16:43)
[2019-04-03] MEDS: ASCORBIC ACID 500 MG TABLET GT SCH ×2 (09:42→16:43)
[2019-04-03] MEDS: FERROUS SULFATE - FOR SA ONLY 330 MG/7.5 ML UDC GT SCH ×3 (09:42→16:43)
[2019-04-03] MEDS: METFORMIN 850 MG TABLET GT SCH ×2 (09:42→16:43)
[2019-04-03] MEDS: LEVETIRACETAM SOL (5 ML) 100 MG/ML UDC GT SCH ×2 (09:42→20:33)
[2019-04-03] MEDS: HEPARIN SODIUM, PORCINE 5000 UNITS/1 ML VIAL SQ SCH ×2 (09:43→21:32)
--- NOTE | 2019-04-03 15:35 | NUR ---
Seen by Dr Alvarez this morning. He ordered to place pt on SIMV 4 PSV 15 PEEP +5 FiO2 30%, titrate SPO2 greater than or equal to 94%, ABG 1 hour post vent change on 04/09/19. Notified pt's sister Tosin.
[2019-04-03] MEDS: INSULIN LISPRO/ASPART 100 UNIT/ML CARTRIDGE SQ PRN (18:42)
[2019-04-03] MEDS: MULTIVIT W/MINERALS 1 TAB TABLET GT SCH (20:33)
[2019-04-03 20:54] VITALS: BP 103/74
[2019-04-03] MEDS: SENNOSIDES 8.6 MG TABLET GT SCH (21:32)
[2019-04-03] MEDS: BASAGLAR SQ SCH (22:00)
[2019-04-03] MEDS: [UNRECOGNIZED DRUG - OTHER] SQ SCH (22:00)
[2019-04-04] MEDS: POLYVINYL ALCOHOL 15 ML BOTTLE EACHEYE SCH ×4 (00:08→18:05)
[2019-04-04] MEDS: ALBUTEROL FS 2.5 MG/3 ML VIAL.NEB NEB SCH ×4 (01:26→20:05)
[2019-04-04] MEDS: IPRATROPIUM NEB FS 0.5 MG/2.5 ML AMPUL.NEB NEB SCH ×4 (01:26→20:05)
[2019-04-04] MEDS: OMEPRAZOLE DR 20 MG GT SCH (05:19)
[2019-04-04] MEDS: BLOOD SUGAR DIAGNOSTIC 1 EACH STRIP IN SCH ×2 (06:37→18:04)
[2019-04-04] MEDS: INSULIN LISPRO/ASPART 100 UNIT/ML CARTRIDGE SQ PRN ×2 (06:38→18:04)
[2019-04-04 07:51] VITALS: BP 115/70
[2019-04-04] MEDS: HYDROGEN PEROXIDE 480 ML BOTTLE TP SCH ×2 (08:06→20:09)
[2019-04-04] MEDS: LEVETIRACETAM SOL (5 ML) 100 MG/ML UDC GT SCH ×2 (08:13→20:23)
[2019-04-04] MEDS: BACLOFEN (10 MG) 10 MG TABLET GT SCH ×2 (08:13→20:23)
[2019-04-04] MEDS: POTASSIUM CHLORIDE 20 MEQ/15 ML GT SCH (08:13)
[2019-04-04] MEDS: DOCUSATE SODIUM LIQ 100 MG/10 ML UDC GT SCH ×2 (08:13→16:12)
[2019-04-04] MEDS: ASCORBIC ACID 500 MG TABLET GT SCH ×2 (08:13→16:12)
[2019-04-04] MEDS: PROSTAT (PYXIS) 30 ML UDC GT SCH ×2 (08:13→16:12)
[2019-04-04] MEDS: METFORMIN 850 MG TABLET GT SCH ×2 (08:13→16:12)
[2019-04-04] MEDS: FERROUS SULFATE - FOR SA ONLY 330 MG/7.5 ML UDC GT SCH ×3 (08:13→16:12)
[2019-04-04] MEDS: HEPARIN SODIUM, PORCINE 5000 UNITS/1 ML VIAL SQ SCH ×2 (08:14→20:24)
[2019-04-04] MEDS: Z GUARD REMEDY 4 OZ OINT TP SCH ×4 (09:00→20:25)
--- NOTE | 2019-04-04 20:05 | NUR ---
RT NOTE: RECEIVED TRACH PT ON [facility] VENT ON NOTED SETTINGS PER MD ORDERS. TRACH IS PATENT AND SECURED. TRACH CARE DONE. AUTO BODY DETAILER DONE. Q6 BREATHING TX GIVEN WITH NO ADVERSE REACTION NOTED. SX DONE PRN. VENT PLUGGED INTO RED OUTLET. ALARMS ON AND AUDIBLE. ROSSYU BAG @ BEDSIDE. NO RESP DISTRESS AT THIS TIME. WILL CONT TO MONITOR PT. Addendum: 04/05/19 at 0256 by SHE BYRNE RT Amended: Links added.
[2019-04-04] MEDS: MULTIVIT W/MINERALS 1 TAB TABLET GT SCH (20:24)
[2019-04-04 20:55] VITALS: BP 115/71
[2019-04-04] MEDS: SENNOSIDES 8.6 MG TABLET GT SCH (21:18)
[2019-04-04] MEDS: [UNRECOGNIZED DRUG - OTHER] SQ SCH (21:19)
[2019-04-04] MEDS: BASAGLAR SQ SCH (21:19)
[2019-04-04] MEDS: GLUCERNA 1.2 1,000 ML BOTTLE GT PRN (21:20)
[2019-04-05] MEDS: POLYVINYL ALCOHOL 15 ML BOTTLE EACHEYE SCH ×4 (00:14→17:30)
[2019-04-05] MEDS: ALBUTEROL FS 2.5 MG/3 ML VIAL.NEB NEB SCH ×4 (01:43→20:06)
[2019-04-05] MEDS: IPRATROPIUM NEB FS 0.5 MG/2.5 ML AMPUL.NEB NEB SCH ×4 (01:43→20:06)
[2019-04-05] MEDS: OMEPRAZOLE DR 20 MG GT SCH (05:06)
[2019-04-05] MEDS: BLOOD SUGAR DIAGNOSTIC 1 EACH STRIP IN SCH ×2 (05:07→18:06)
[2019-04-05] MEDS: HYDROGEN PEROXIDE 480 ML BOTTLE TP SCH ×2 (07:39→20:06)
[2019-04-05 07:47] VITALS: BP 113/69
[2019-04-05] MEDS: POTASSIUM CHLORIDE 20 MEQ/15 ML GT SCH (08:43)
[2019-04-05] MEDS: ASCORBIC ACID 500 MG TABLET GT SCH ×2 (08:43→17:30)
[2019-04-05] MEDS: LEVETIRACETAM SOL (5 ML) 100 MG/ML UDC GT SCH ×2 (08:43→21:15)
[2019-04-05] MEDS: PROSTAT (PYXIS) 30 ML UDC GT SCH ×2 (08:43→17:30)
[2019-04-05] MEDS: FERROUS SULFATE - FOR SA ONLY 330 MG/7.5 ML UDC GT SCH ×3 (08:43→17:30)
[2019-04-05] MEDS: METFORMIN 850 MG TABLET GT SCH ×2 (08:43→17:30)
[2019-04-05] MEDS: DOCUSATE SODIUM LIQ 100 MG/10 ML UDC GT SCH ×2 (08:43→17:30)
[2019-04-05] MEDS: BACLOFEN (10 MG) 10 MG TABLET GT SCH ×2 (08:43→21:15)
[2019-04-05] MEDS: HEPARIN SODIUM, PORCINE 5000 UNITS/1 ML VIAL SQ SCH ×2 (08:44→21:16)
[2019-04-05] MEDS: Z GUARD REMEDY 4 OZ OINT TP SCH ×4 (08:47→21:16)
--- NOTE | 2019-04-05 16:46 | NUR ---
RT NOTE: RECEIVED PT ON ORDERED NOTED VENT SETTINGS. NO RESPIRATORY DISTRESS NOTED. TRACH CHECKED SECURE AND PATENT. SXD AND LAVAGED Q ROUND AND NEEDED. TXS GIVEN ORDERED WITH NO ADVERSE REACTIONS NOTED. TRACH CARE DONE. SPARE TRACH AND AMBU BAG @ BEDSIDE. ALARMS CHECKED. VENT PLUGGED INTO RED OUTLET.
--- NOTE | 2019-04-05 20:36 | NUR ---
PT RCVD TRACH'D ON MECHANICAL VENT WITH CHARTED SETTINGS. PT TUTU TX WELL. SX DONE. PT TRACH IS PATENT AND SECURE. VENT PLUGGED INTO RED OUTLET. ALARMS ARE ON AND AUDIBLE. AMBU BAG AT BEDSIDE. Addendum: 04/05/19 at 2035 by CHAGO HOLMAN RT Amended: Links added.
[2019-04-05 20:49] VITALS: BP 110/75
[2019-04-05] MEDS: MULTIVIT W/MINERALS 1 TAB TABLET GT SCH (21:15)
[2019-04-05] MEDS: SENNOSIDES 8.6 MG TABLET GT SCH (21:16)
[2019-04-05] MEDS: [UNRECOGNIZED DRUG - OTHER] SQ SCH (21:55)
[2019-04-05] MEDS: BASAGLAR SQ SCH (21:55)
[2019-04-06] MEDS: IPRATROPIUM NEB FS 0.5 MG/2.5 ML AMPUL.NEB NEB SCH ×4 (01:16→20:20)
[2019-04-06] MEDS: ALBUTEROL FS 2.5 MG/3 ML VIAL.NEB NEB SCH ×4 (01:17→20:20)
[2019-04-06] MEDS: OMEPRAZOLE DR 20 MG GT SCH (05:21)
[2019-04-06] MEDS: POLYVINYL ALCOHOL 15 ML BOTTLE EACHEYE SCH ×5 (05:21→23:32)
[2019-04-06] MEDS: GLUCERNA 1.2 1,000 ML BOTTLE GT PRN (05:22)
[2019-04-06] MEDS: BLOOD SUGAR DIAGNOSTIC 1 EACH STRIP IN SCH ×2 (06:15→18:35)
[2019-04-06] MEDS: INSULIN LISPRO/ASPART 100 UNIT/ML CARTRIDGE SQ PRN (06:16)
[2019-04-06 07:47] VITALS: BP 143/55
[2019-04-06] MEDS: HYDROGEN PEROXIDE 480 ML BOTTLE TP SCH ×2 (08:23→20:20)
[2019-04-06] MEDS: METFORMIN 850 MG TABLET GT SCH ×2 (08:54→17:12)
[2019-04-06] MEDS: ASCORBIC ACID 500 MG TABLET GT SCH ×2 (08:54→17:12)
[2019-04-06] MEDS: PROSTAT (PYXIS) 30 ML UDC GT SCH ×2 (08:54→17:12)
[2019-04-06] MEDS: DOCUSATE SODIUM LIQ 100 MG/10 ML UDC GT SCH ×2 (08:54→17:12)
[2019-04-06] MEDS: FERROUS SULFATE - FOR SA ONLY 330 MG/7.5 ML UDC GT SCH ×3 (08:54→17:12)
[2019-04-06] MEDS: BACLOFEN (10 MG) 10 MG TABLET GT SCH ×2 (08:54→21:16)
[2019-04-06] MEDS: LEVETIRACETAM SOL (5 ML) 100 MG/ML UDC GT SCH ×2 (08:54→21:16)
[2019-04-06] MEDS: POTASSIUM CHLORIDE 20 MEQ/15 ML GT SCH (08:54)
[2019-04-06] MEDS: Z GUARD REMEDY 4 OZ OINT TP SCH ×4 (08:55→21:16)
[2019-04-06] MEDS: HEPARIN SODIUM, PORCINE 5000 UNITS/1 ML VIAL SQ SCH ×2 (08:55→21:16)
--- NOTE | 2019-04-06 11:25 | NUR ---
Seen and examined by Dr. Dsouza, current medications for dm was reviewed no new orders.
--- NOTE | 2019-04-06 18:39 | NUR ---
RT NOTE PT ON VENT. VENT PLUGGED TO RED OUTLET. EXTRA TRACH AT BEDSIDE AND AMBU BAG. NO ADVERSE REACTIONS TO MEDS. TRACH IS PATEN AND CLEAN. SX MODERATE THICK WHITE SECRETIONS. ALARMS ARE SET AND AUDIBLE. Addendum: 04/06/19 at 1841 by BRANT GARCIA RT Amended: Links added.
[2019-04-06 19:51] VITALS: BP 102/69
--- NOTE | 2019-04-06 20:43 | NUR ---
PT RCVD TRACH'D ON MECHANICAL VENT WITH CHARTED SETTINGS. PT TUTU TX WELL. SX DONE. PT TRACH IS PATENT AND SECURE. VENT PLUGGED INTO RED OUTLET. ALARMS ARE ON AND AUDIBLE. AMBU BAG AT BEDSIDE. Addendum: 04/06/19 at 2042 by CHAGO HOLMAN RT Amended: Links added.
[2019-04-06] MEDS: SENNOSIDES 8.6 MG TABLET GT SCH (21:16)
[2019-04-06] MEDS: MULTIVIT W/MINERALS 1 TAB TABLET GT SCH (21:16)
[2019-04-06] MEDS: BASAGLAR SQ SCH (21:17)
[2019-04-06] MEDS: [UNRECOGNIZED DRUG - OTHER] SQ SCH (21:17)
[2019-04-07] MEDS: IPRATROPIUM NEB FS 0.5 MG/2.5 ML AMPUL.NEB NEB SCH ×4 (01:04→20:06)
[2019-04-07] MEDS: ALBUTEROL FS 2.5 MG/3 ML VIAL.NEB NEB SCH ×4 (01:04→20:06)
[2019-04-07] MEDS: POLYVINYL ALCOHOL 15 ML BOTTLE EACHEYE SCH ×3 (05:28→17:43)
[2019-04-07] MEDS: BLOOD SUGAR DIAGNOSTIC 1 EACH STRIP IN SCH ×2 (05:28→17:43)
[2019-04-07] MEDS: OMEPRAZOLE DR 20 MG GT SCH (05:28)
[2019-04-07] MEDS: INSULIN LISPRO/ASPART 100 UNIT/ML CARTRIDGE SQ PRN (05:29)
[2019-04-07] MEDS: GLUCERNA 1.2 1,000 ML BOTTLE GT PRN (06:30)
[2019-04-07 07:57] VITALS: BP 101/64
[2019-04-07] MEDS: HYDROGEN PEROXIDE 480 ML BOTTLE TP SCH ×2 (08:26→21:36)
[2019-04-07] MEDS: PROSTAT (PYXIS) 30 ML UDC GT SCH ×2 (08:35→16:17)
[2019-04-07] MEDS: LEVETIRACETAM SOL (5 ML) 100 MG/ML UDC GT SCH ×2 (08:35→20:24)
[2019-04-07] MEDS: BACLOFEN (10 MG) 10 MG TABLET GT SCH ×2 (08:35→20:24)
[2019-04-07] MEDS: FERROUS SULFATE - FOR SA ONLY 330 MG/7.5 ML UDC GT SCH ×3 (08:35→16:17)
[2019-04-07] MEDS: POTASSIUM CHLORIDE 20 MEQ/15 ML GT SCH (08:35)
[2019-04-07] MEDS: METFORMIN 850 MG TABLET GT SCH ×2 (08:35→16:17)
[2019-04-07] MEDS: ASCORBIC ACID 500 MG TABLET GT SCH ×2 (08:35→16:17)
[2019-04-07] MEDS: DOCUSATE SODIUM LIQ 100 MG/10 ML UDC GT SCH ×2 (08:35→16:17)
[2019-04-07] MEDS: HEPARIN SODIUM, PORCINE 5000 UNITS/1 ML VIAL SQ SCH ×2 (08:36→20:24)
[2019-04-07] MEDS: Z GUARD REMEDY 4 OZ OINT TP SCH ×4 (08:36→20:24)
[2019-04-07 19:47] VITALS: BP 108/71
[2019-04-07] MEDS: MULTIVIT W/MINERALS 1 TAB TABLET GT SCH (20:24)
[2019-04-07] MEDS: BASAGLAR SQ SCH (21:25)
[2019-04-07] MEDS: SENNOSIDES 8.6 MG TABLET GT SCH (21:25)
[2019-04-07] MEDS: [UNRECOGNIZED DRUG - OTHER] SQ SCH (21:25)
[2019-04-08] MEDS: POLYVINYL ALCOHOL 15 ML BOTTLE EACHEYE SCH ×4 (00:55→18:07)
[2019-04-08] MEDS: IPRATROPIUM NEB FS 0.5 MG/2.5 ML AMPUL.NEB NEB SCH ×4 (01:36→19:37)
[2019-04-08] MEDS: ALBUTEROL FS 2.5 MG/3 ML VIAL.NEB NEB SCH ×4 (01:36→19:37)
[2019-04-08] MEDS: BLOOD SUGAR DIAGNOSTIC 1 EACH STRIP IN SCH ×2 (05:20→18:07)
[2019-04-08] MEDS: OMEPRAZOLE DR 20 MG GT SCH (05:20)
[2019-04-08] MEDS: GLUCERNA 1.2 1,000 ML BOTTLE GT PRN (05:20)
[2019-04-08] MEDS: INSULIN LISPRO/ASPART 100 UNIT/ML CARTRIDGE SQ PRN (05:20)
--- NOTE | 2019-04-08 06:06 | NUR ---
RT PATIENT WAS RECEIVED ON CONTINUOUS VENT SUPPORT ON NOTED VENT SETTINGS.AIRWAY PATENT AND SECURED. PATIENT STABLE THROUGHOUT TH E SHIFT.WILL CONTINUE TO MONITOR. Addendum: 04/08/19 at 0607 by EDNA JUNIOR RT Amended: Links added.
[2019-04-08 08:00] VITALS: BP 93/63
[2019-04-08] MEDS: BACLOFEN (10 MG) 10 MG TABLET GT SCH ×2 (09:00→21:08)
[2019-04-08] MEDS: LEVETIRACETAM SOL (5 ML) 100 MG/ML UDC GT SCH ×2 (09:00→21:08)
[2019-04-08] MEDS: DOCUSATE SODIUM LIQ 100 MG/10 ML UDC GT SCH ×2 (09:00→16:32)
[2019-04-08] MEDS: Z GUARD REMEDY 4 OZ OINT TP SCH ×4 (09:00→21:09)
[2019-04-08] MEDS: FERROUS SULFATE - FOR SA ONLY 330 MG/7.5 ML UDC GT SCH ×3 (09:00→16:32)
[2019-04-08] MEDS: ASCORBIC ACID 500 MG TABLET GT SCH ×2 (09:00→16:32)
[2019-04-08] MEDS: HEPARIN SODIUM, PORCINE 5000 UNITS/1 ML VIAL SQ SCH ×2 (09:00→21:08)
[2019-04-08] MEDS: POTASSIUM CHLORIDE 20 MEQ/15 ML GT SCH (09:00)
[2019-04-08] MEDS: PROSTAT (PYXIS) 30 ML UDC GT SCH ×2 (09:00→16:32)
[2019-04-08] MEDS: HYDROGEN PEROXIDE 480 ML BOTTLE TP SCH ×2 (09:00→21:08)
[2019-04-08] MEDS: METFORMIN 850 MG TABLET GT SCH ×2 (09:00→16:32)
[2019-04-08 19:48] VITALS: BP 110/84
[2019-04-08] MEDS: MULTIVIT W/MINERALS 1 TAB TABLET GT SCH (21:08)
[2019-04-08] MEDS: [UNRECOGNIZED DRUG - OTHER] SQ SCH (21:09)
[2019-04-08] MEDS: BASAGLAR SQ SCH (21:09)
[2019-04-08] MEDS: SENNOSIDES 8.6 MG TABLET GT SCH (21:09)
[2019-04-09] MEDS: POLYVINYL ALCOHOL 15 ML BOTTLE EACHEYE SCH ×5 (00:09→23:00)
[2019-04-09] MEDS: IPRATROPIUM NEB FS 0.5 MG/2.5 ML AMPUL.NEB NEB SCH ×4 (01:39→19:25)
[2019-04-09] MEDS: ALBUTEROL FS 2.5 MG/3 ML VIAL.NEB NEB SCH ×4 (01:39→19:25)
[2019-04-09] MEDS: BLOOD SUGAR DIAGNOSTIC 1 EACH STRIP IN SCH ×2 (05:35→17:19)
[2019-04-09] MEDS: OMEPRAZOLE DR 20 MG GT SCH (05:35)
--- NOTE | 2019-04-09 08:30 | NUR ---
RT NOTE PT. RECEIVED ON MECH. VENT WITH NOTED SETTINGS. ALARMS ARE SET AND AUDIBLE. VENT. PLUGGED INTO THE RED OUTLET. AMBU BAG AND SPARE TRACH IS AT BEDSIDE. NO SOB NOTE PT. IS COMFORTABLE. SX SMALL WHITE CLEAR THIN SECRETIONS T/O THE DAY. PT TOLERATED TX'S WELL, NO ADV REACTIONS. TRACHEOSTOMY TUBE IS PATENT AND SECURED. TRACH CARE DONE.
[2019-04-09] MEDS: HYDROGEN PEROXIDE 480 ML BOTTLE TP SCH ×2 (09:00→21:19)
[2019-04-09] MEDS: POTASSIUM CHLORIDE 20 MEQ/15 ML GT SCH (09:16)
[2019-04-09] MEDS: BACLOFEN (10 MG) 10 MG TABLET GT SCH ×2 (09:16→21:19)
[2019-04-09] MEDS: LEVETIRACETAM SOL (5 ML) 100 MG/ML UDC GT SCH ×2 (09:16→21:19)
[2019-04-09] MEDS: METFORMIN 850 MG TABLET GT SCH ×2 (09:16→16:28)
[2019-04-09] MEDS: ASCORBIC ACID 500 MG TABLET GT SCH ×2 (09:16→16:28)
[2019-04-09] MEDS: PROSTAT (PYXIS) 30 ML UDC GT SCH ×2 (09:16→16:28)
[2019-04-09] MEDS: DOCUSATE SODIUM LIQ 100 MG/10 ML UDC GT SCH ×2 (09:16→16:28)
[2019-04-09] MEDS: FERROUS SULFATE - FOR SA ONLY 330 MG/7.5 ML UDC GT SCH ×3 (09:16→16:28)
[2019-04-09] MEDS: HEPARIN SODIUM, PORCINE 5000 UNITS/1 ML VIAL SQ SCH ×2 (09:17→21:19)
[2019-04-09] MEDS: Z GUARD REMEDY 4 OZ OINT TP SCH ×4 (09:17→21:19)
[2019-04-09 10:00] VITALS: BP 92/54
[2019-04-09 11:00] LABS: ABG BASE EXCESS -3.2 mmol/L; ABG OXYGEN SATURATION 97.4 % (92.0-98.5); ABG PCO2 24.7 mmHg (35.0-45.0); ABG PH 7.492 (7.350-7.450); ABG PO2 94.1 mmHg (75.0-100.0); AaDO2 90.8 mmHg; COHb 0.7 % (0.5-1.5); MetHb 0.3 % (0.0-1.5); O2Hb 96.4 % (94.0-97.0); PEEP,BG 5 cm H2O; SITE, ABG Left Radial; VENT MODE, BG SIMV PS 15; VT, ABG 500 mL
--- NOTE | 2019-04-09 11:15 | NUR ---
Pt was placed by RT Frederick on SIMV 4 PS 15 FiO2 30% PEEP +5. ABG result relayed to Dr Alvarez and informed him that pt is hyperventilating, breathing at [address] Alvarez said to keep pt on current setting. Clarified if he wanted pt to remain on SIMV since she is breathing 24 cpm, Dr Alvarez said to keep on SIMV as long as pt is comfortable. Pt appears comfortable at this time. Addendum: 04/09/19 at 1155 by TRISTIN MCCLENDON RN Shyam Leahy.
--- NOTE | 2019-04-09 17:49 | NUR ---
RT NOTE PT. WAS SWITCHED FROM A/C TO SIMV PER DR. BAE ORDERS @ 09:40. SETTINGS ARE SIMV 4, P/S 15, PEEP 5, AND TITRATE FIO2 TO MAINTAIN SPO2 > 94%. NO ADVERSE REACTION NOTED WITH NEW VENTILATOR SETTINGS. ABG WAS DRAWN @ 10:50 ANALYSIS WERE PH 7.49 PCO2 24.7 PO2 94.1 HCO3 18.5 BE -3.2 CHARGE NURSE TRISTIN WAS AWARE OF THE RESULTS. TRISTIN INFORMED DR. BAE OF ABG ANALYSIS AND CONFIRMED TO KEEP PT. ON SAME SETTINGS LONG PT. IS COMFORTABLE.
[2019-04-09 19:46] VITALS: BP 99/64
[2019-04-09] MEDS: SENNOSIDES 8.6 MG TABLET GT SCH (21:19)
[2019-04-09] MEDS: MULTIVIT W/MINERALS 1 TAB TABLET GT SCH (21:19)
[2019-04-09] MEDS: [UNRECOGNIZED DRUG - OTHER] SQ SCH (21:20)
[2019-04-09] MEDS: BASAGLAR SQ SCH (21:20)
[2019-04-10] MEDS: IPRATROPIUM NEB FS 0.5 MG/2.5 ML AMPUL.NEB NEB SCH ×4 (00:54→20:03)
[2019-04-10] MEDS: ALBUTEROL FS 2.5 MG/3 ML VIAL.NEB NEB SCH ×4 (00:54→20:03)
[2019-04-10] MEDS: BLOOD SUGAR DIAGNOSTIC 1 EACH STRIP IN SCH ×2 (06:01→17:39)
[2019-04-10] MEDS: OMEPRAZOLE DR 20 MG GT SCH (06:01)
[2019-04-10] MEDS: POLYVINYL ALCOHOL 15 ML BOTTLE EACHEYE SCH ×4 (06:01→23:50)
[2019-04-10 07:54] VITALS: BP 101/70
[2019-04-10] MEDS: FERROUS SULFATE - FOR SA ONLY 330 MG/7.5 ML UDC GT SCH ×3 (08:08→17:39)
[2019-04-10] MEDS: BACLOFEN (10 MG) 10 MG TABLET GT SCH ×2 (08:08→21:18)
[2019-04-10] MEDS: DOCUSATE SODIUM LIQ 100 MG/10 ML UDC GT SCH ×2 (08:08→17:39)
[2019-04-10] MEDS: LEVETIRACETAM SOL (5 ML) 100 MG/ML UDC GT SCH ×2 (08:08→21:18)
[2019-04-10] MEDS: METFORMIN 850 MG TABLET GT SCH ×2 (08:08→17:39)
[2019-04-10] MEDS: PROSTAT (PYXIS) 30 ML UDC GT SCH ×2 (08:09→17:39)
[2019-04-10] MEDS: POTASSIUM CHLORIDE 20 MEQ/15 ML GT SCH (08:09)
[2019-04-10] MEDS: ASCORBIC ACID 500 MG TABLET GT SCH ×2 (08:09→17:39)
[2019-04-10] MEDS: HEPARIN SODIUM, PORCINE 5000 UNITS/1 ML VIAL SQ SCH ×2 (08:10→21:18)
[2019-04-10] MEDS: Z GUARD REMEDY 4 OZ OINT TP SCH ×3 (09:00→21:18)
[2019-04-10] MEDS: HYDROGEN PEROXIDE 480 ML BOTTLE TP SCH ×2 (09:58→20:03)
--- NOTE | 2019-04-10 10:02 | NUR ---
RT PT REC'D TRACH'D ON MECHANICAL VENT WITH CHARTED SETTINGS. NO SOB NOTED AT THIS TIME. VENT PLUGGED INTO RED OUTLET. ALARMS ARE ON AND AUDIBLE. AMBU BAG AT BEDSIDE. Addendum: 04/10/19 at 1002 by ARIS CRUZ RT Amended: Links added.
--- NOTE | 2019-04-10 14:49 | NUR ---
SW called and left a voicemail for family/sister, Tosin Horvath [phone] to invite them to IDT meeting taking place this Tuesday, April 13, 2019 from 12:30pm-1:30pm in the SA activities room or participate via phone conference.
--- NOTE | 2019-04-10 17:15 | NUR ---
Dr Alvarez ordered to place pt on CPAP PSV 15 PEEP +5 on 04/17/19, ABG 1 hour post vent change. Anabel Leahy.
[2019-04-10] MEDS: INSULIN LISPRO/ASPART 100 UNIT/ML CARTRIDGE SQ PRN (17:40)
--- NOTE | 2019-04-10 20:03 | NUR ---
RT NOTE: RECEIVED TRACH PT ON [facility] VENT ON NOTED SETTINGS PER MD ORDERS. TRACH IS PATENT AND SECURED. TRACH CARE DONE. COMPUTER AIDED DESIGN OPERATOR DONE. Q6 BREATHING TX GIVEN WITH NO ADVERSE REACTION NOTED. SX DONE PRN. VENT PLUGGED INTO RED OUTLET. ALARMS ON AND AUDIBLE. ROSSYU BAG @ BEDSIDE. NO RESP DISTRESS AT THIS TIME. WILL CONT TO MONITOR PT. Addendum: 04/11/19 at 0237 by SHE BYRNE RT Amended: Links added.
[2019-04-10 20:51] VITALS: BP 106/70
[2019-04-10] MEDS: MULTIVIT W/MINERALS 1 TAB TABLET GT SCH (21:18)
[2019-04-10] MEDS: SENNOSIDES 8.6 MG TABLET GT SCH (21:19)
[2019-04-10] MEDS: BASAGLAR SQ SCH (21:19)
[2019-04-10] MEDS: [UNRECOGNIZED DRUG - OTHER] SQ SCH (21:19)
[2019-04-11] MEDS: IPRATROPIUM NEB FS 0.5 MG/2.5 ML AMPUL.NEB NEB SCH ×4 (01:53→19:50)
[2019-04-11] MEDS: ALBUTEROL FS 2.5 MG/3 ML VIAL.NEB NEB SCH ×4 (01:53→19:50)
[2019-04-11] MEDS: POLYVINYL ALCOHOL 15 ML BOTTLE EACHEYE SCH ×3 (05:49→18:34)
[2019-04-11] MEDS: BLOOD SUGAR DIAGNOSTIC 1 EACH STRIP IN SCH ×2 (05:49→18:34)
[2019-04-11] MEDS: OMEPRAZOLE DR 20 MG GT SCH (05:49)
[2019-04-11] MEDS: HYDROGEN PEROXIDE 480 ML BOTTLE TP SCH ×2 (08:08→19:50)
[2019-04-11 08:12] VITALS: BP 126/73
[2019-04-11] MEDS: DOCUSATE SODIUM LIQ 100 MG/10 ML UDC GT SCH ×2 (09:23→17:00)
[2019-04-11] MEDS: FERROUS SULFATE - FOR SA ONLY 330 MG/7.5 ML UDC GT SCH ×3 (09:23→17:00)
[2019-04-11] MEDS: POTASSIUM CHLORIDE 20 MEQ/15 ML GT SCH (09:25)
[2019-04-11] MEDS: ASCORBIC ACID 500 MG TABLET GT SCH ×2 (09:25→17:00)
[2019-04-11] MEDS: PROSTAT (PYXIS) 30 ML UDC GT SCH ×2 (09:25→17:00)
[2019-04-11] MEDS: METFORMIN 850 MG TABLET GT SCH ×2 (09:25→17:00)
[2019-04-11] MEDS: BACLOFEN (10 MG) 10 MG TABLET GT SCH ×2 (09:25→21:00)
[2019-04-11] MEDS: LEVETIRACETAM SOL (5 ML) 100 MG/ML UDC GT SCH ×2 (09:25→21:00)
[2019-04-11] MEDS: Z GUARD REMEDY 4 OZ OINT TP SCH ×2 (09:27→21:01)
[2019-04-11] MEDS: HEPARIN SODIUM, PORCINE 5000 UNITS/1 ML VIAL SQ SCH ×2 (09:27→21:01)
--- NOTE | 2019-04-11 15:11 | NUR ---
ERVIN left patients responsible constitution party/sister, Tosin Horvath [phone] a voicemail informing her that patient was seen by DR. Roman today for annual dental exam and cleaning. ERVIN informed Tosin, that she may call back for further details about dental visit. Dental Note By states : Exam and cleaning, film on teeth, calculus, plaque, bleeding, missing teeth:1,2,4,10,16,17,18,32.
--- NOTE | 2019-04-11 17:19 | NUR ---
RT NOTE PATIENT RECEIVED ON MECHANICAL VENT WITH NOTED SETTINGS PER MD ORDERS. ALARMS ARE SET AND AUDIBLE AND PLUGGED TO RED OUTLET. TRACH IS PATENT AND SECURED AND DENTAL CERAMIST ASSISTANT DONE. EXTRA TRACH IS AT BEDSIDE. BVM IS AT BEDSIDE. Q6 TREATMENTS GIVEN WITH NO ADVERSE REACTIONS. SUCTION SMALL WHITE THIN SECRETIONS PRN. HEART RATE AND SATURATIONS WERE WITHIN NORMAL VALUES. BREATH SOUNDS WERE COARSE TROUGH OUT THE DAY. TRACH CARE WAS DONE. NO RESPIRATORY DISTRESS NOTED.
[2019-04-11] MEDS: INSULIN LISPRO/ASPART 100 UNIT/ML CARTRIDGE SQ PRN (18:34)
[2019-04-11 19:48] VITALS: BP 118/83
--- NOTE | 2019-04-11 19:51 | NUR ---
RT NOTE: RECEIVED TRACH PT ON [facility] VENT ON NOTED SETTINGS PER MD ORDERS. TRACH IS PATENT AND SECURED. TRACH CARE DONE. NUTRITION HELPER DONE. Q6 BREATHING TX GIVEN WITH NO ADVERSE REACTION NOTED. SX DONE PRN. VENT PLUGGED INTO RED OUTLET. ALARMS ON AND AUDIBLE. ERIC BAG @ BEDSIDE. NO RESP DISTRESS AT THIS TIME. WILL CONT TO MONITOR PT. Addendum: 04/12/19 at 0240 by SHE BYRNE RT Amended: Links added.
[2019-04-11] MEDS: MULTIVIT W/MINERALS 1 TAB TABLET GT SCH (21:00)
[2019-04-11] MEDS: SENNOSIDES 8.6 MG TABLET GT SCH (21:01)
[2019-04-11] MEDS: GLUCERNA 1.2 1,000 ML BOTTLE GT PRN (21:02)
[2019-04-11] MEDS: BASAGLAR SQ SCH (22:32)
[2019-04-11] MEDS: [UNRECOGNIZED DRUG - OTHER] SQ SCH (22:32)
[2019-04-12] MEDS: POLYVINYL ALCOHOL 15 ML BOTTLE EACHEYE SCH ×5 (00:08→23:18)
[2019-04-12] MEDS: ALBUTEROL FS 2.5 MG/3 ML VIAL.NEB NEB SCH ×4 (01:46→20:20)
[2019-04-12] MEDS: IPRATROPIUM NEB FS 0.5 MG/2.5 ML AMPUL.NEB NEB SCH ×4 (01:46→20:20)
[2019-04-12] MEDS: OMEPRAZOLE DR 20 MG GT SCH (05:28)
[2019-04-12] MEDS: BLOOD SUGAR DIAGNOSTIC 1 EACH STRIP IN SCH ×2 (05:28→17:09)
[2019-04-12] MEDS: INSULIN LISPRO/ASPART 100 UNIT/ML CARTRIDGE SQ PRN (05:29)
[2019-04-12 07:56] VITALS: BP 90/70
[2019-04-12] MEDS: LEVETIRACETAM SOL (5 ML) 100 MG/ML UDC GT SCH ×2 (08:21→20:26)
[2019-04-12] MEDS: ASCORBIC ACID 500 MG TABLET GT SCH ×2 (08:21→16:30)
[2019-04-12] MEDS: HYDROGEN PEROXIDE 480 ML BOTTLE TP SCH ×2 (08:21→20:20)
[2019-04-12] MEDS: BACLOFEN (10 MG) 10 MG TABLET GT SCH ×2 (08:21→20:26)
[2019-04-12] MEDS: HEPARIN SODIUM, PORCINE 5000 UNITS/1 ML VIAL SQ SCH ×2 (08:21→20:26)
[2019-04-12] MEDS: PROSTAT (PYXIS) 30 ML UDC GT SCH ×2 (08:21→16:29)
[2019-04-12] MEDS: POTASSIUM CHLORIDE 20 MEQ/15 ML GT SCH (08:21)
[2019-04-12] MEDS: DOCUSATE SODIUM LIQ 100 MG/10 ML UDC GT SCH ×2 (08:21→16:29)
[2019-04-12] MEDS: METFORMIN 850 MG TABLET GT SCH ×2 (08:21→16:29)
[2019-04-12] MEDS: FERROUS SULFATE - FOR SA ONLY 330 MG/7.5 ML UDC GT SCH ×3 (08:21→16:29)
[2019-04-12] MEDS: Z GUARD REMEDY 4 OZ OINT TP SCH ×2 (08:22→20:27)
--- NOTE | 2019-04-12 12:41 | NUR ---
RT PATIENT HAD NOTED DISTRESS ON WEANING MODE. PER DR BAE PATIENT PLACED BACK ON AC MODE WITH ADDED PEEP +5. ASHKAN TUTTLE. AC12, 500, 30% +5. ALARMS CHECKED + AUDIBLE. Addendum: 04/12/19 at 1242 by MERISSA BHATT RT Amended: Links added.
--- NOTE | 2019-04-12 18:37 | NUR ---
RT NOTE PATIENT RECEIVED ON MECHANICAL VENT WITH NOTED SETTINGS PER MD ORDERS. ALARMS ARE SET AND AUDIBLE AND PLUGGED TO RED OUTLET. TRACH IS PATENT AND SECURED AND CONTINUOUS IMPROVEMENT BLACK BELT DONE. EXTRA TRACH IS AT BEDSIDE. BVM IS AT BEDSIDE. Q6 TREATMENTS GIVEN WITH NO ADVERSE REACTIONS. SUCTION MODERATE CLEAR WHITE THIN SECRETIONS PRN. BREATH SOUNDS WERE COARSE TROUGH OUT THE DAY. TRACH CARE WAS DONE. NO RESPIRATORY DISTRESS NOTED. VENTILATOR CIRCUIT WAS CHANGED DUE TO FAULTY EXHALATION VALVE.
[2019-04-12] MEDS: MULTIVIT W/MINERALS 1 TAB TABLET GT SCH (20:26)
[2019-04-12 20:54] VITALS: BP 98/63
[2019-04-12] MEDS: SENNOSIDES 8.6 MG TABLET GT SCH (21:05)
[2019-04-12] MEDS: [UNRECOGNIZED DRUG - OTHER] SQ SCH (21:06)
[2019-04-12] MEDS: BASAGLAR SQ SCH (21:06)
--- NOTE | 2019-04-12 23:54 | NUR ---
PT RCVD TRACH'D ON MECHANICAL VENT WITH CHARTED SETTINGS. PT TUTU TX WELL. SX DONE. PT TRACH IS PATENT AND SECURE. VENT PLUGGED INTO RED OUTLET. ALARMS ARE ON AND AUDIBLE. AMBU BAG AT BEDSIDE. Addendum: 04/12/19 at 2354 by CHAGO HOLMAN RT Amended: Links added.
[2019-04-13] MEDS: IPRATROPIUM NEB FS 0.5 MG/2.5 ML AMPUL.NEB NEB SCH ×4 (00:54→19:50)
[2019-04-13] MEDS: ALBUTEROL FS 2.5 MG/3 ML VIAL.NEB NEB SCH ×4 (00:54→19:50)
[2019-04-13] MEDS: OMEPRAZOLE DR 20 MG GT SCH (05:14)
[2019-04-13] MEDS: POLYVINYL ALCOHOL 15 ML BOTTLE EACHEYE SCH ×3 (05:14→18:14)
[2019-04-13] MEDS: BLOOD SUGAR DIAGNOSTIC 1 EACH STRIP IN SCH ×2 (05:14→18:14)
[2019-04-13] MEDS: GLUCERNA 1.2 1,000 ML BOTTLE GT PRN (05:15)
[2019-04-13] MEDS: INSULIN LISPRO/ASPART 100 UNIT/ML CARTRIDGE SQ PRN ×2 (05:15→18:15)
[2019-04-13 08:01] VITALS: BP 101/65
[2019-04-13] MEDS: HYDROGEN PEROXIDE 480 ML BOTTLE TP SCH ×2 (09:00→20:10)
[2019-04-13] MEDS: Z GUARD REMEDY 4 OZ OINT TP SCH ×2 (09:00→20:54)
[2019-04-13] MEDS: DOCUSATE SODIUM LIQ 100 MG/10 ML UDC GT SCH ×2 (09:08→16:54)
[2019-04-13] MEDS: FERROUS SULFATE - FOR SA ONLY 330 MG/7.5 ML UDC GT SCH ×3 (09:08→16:54)
[2019-04-13] MEDS: ASCORBIC ACID 500 MG TABLET GT SCH ×2 (09:08→16:54)
[2019-04-13] MEDS: METFORMIN 850 MG TABLET GT SCH ×2 (09:08→16:54)
[2019-04-13] MEDS: PROSTAT (PYXIS) 30 ML UDC GT SCH ×2 (09:08→16:54)
[2019-04-13] MEDS: HEPARIN SODIUM, PORCINE 5000 UNITS/1 ML VIAL SQ SCH ×2 (09:08→20:54)
[2019-04-13] MEDS: BACLOFEN (10 MG) 10 MG TABLET GT SCH ×2 (09:08→20:53)
[2019-04-13] MEDS: LEVETIRACETAM SOL (5 ML) 100 MG/ML UDC GT SCH ×2 (09:08→20:53)
[2019-04-13] MEDS: POTASSIUM CHLORIDE 20 MEQ/15 ML GT SCH (09:08)
--- NOTE | 2019-04-13 15:05 | NUR ---
INTERDISCIPLINARY TEAM PLAN OF CARE CONFERENCE was held today. The patient's responsible constitution party/ sister Toisn Horvath [phone] could not attend or participate via phone conference. 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 Dr. Alvarez and interdisciplinary team discussed the current plan of care in detail.
--- NOTE | 2019-04-13 20:19 | NUR ---
PT RCVD TRACH'D ON MECHANICAL VENT WITH CHARTED SETTINGS. PT TUTU TX WELL. SX DONE. PT TRACH IS PATENT AND SECURE. VENT PLUGGED INTO RED OUTLET. ALARMS ARE ON AND AUDIBLE. AMBU BAG AT BEDSIDE. Addendum: 04/13/19 at 2020 by CHAGO HOLMAN RT Amended: Links added.
[2019-04-13 20:41] VITALS: BP 136/99
[2019-04-13] MEDS: MULTIVIT W/MINERALS 1 TAB TABLET GT SCH (20:53)
[2019-04-13] MEDS: SENNOSIDES 8.6 MG TABLET GT SCH (21:05)
[2019-04-13] MEDS: [UNRECOGNIZED DRUG - OTHER] SQ SCH (21:16)
[2019-04-13] MEDS: BASAGLAR SQ SCH (21:16)
[2019-04-14] MEDS: POLYVINYL ALCOHOL 15 ML BOTTLE EACHEYE SCH ×5 (00:02→23:10)
[2019-04-14] MEDS: IPRATROPIUM NEB FS 0.5 MG/2.5 ML AMPUL.NEB NEB SCH ×4 (00:58→20:13)
[2019-04-14] MEDS: ALBUTEROL FS 2.5 MG/3 ML VIAL.NEB NEB SCH ×4 (00:58→20:13)
[2019-04-14] MEDS: OMEPRAZOLE DR 20 MG GT SCH (05:18)
[2019-04-14] MEDS: BLOOD SUGAR DIAGNOSTIC 1 EACH STRIP IN SCH ×2 (05:18→17:04)
[2019-04-14] MEDS: GLUCERNA 1.2 1,000 ML BOTTLE GT PRN (05:19)
[2019-04-14] MEDS: INSULIN LISPRO/ASPART 100 UNIT/ML CARTRIDGE SQ PRN ×2 (05:19→17:04)
[2019-04-14 07:35] VITALS: BP 102/67
[2019-04-14] MEDS: METFORMIN 850 MG TABLET GT SCH ×2 (08:38→16:10)
[2019-04-14] MEDS: BACLOFEN (10 MG) 10 MG TABLET GT SCH ×2 (08:38→20:14)
[2019-04-14] MEDS: PROSTAT (PYXIS) 30 ML UDC GT SCH ×2 (08:38→16:10)
[2019-04-14] MEDS: LEVETIRACETAM SOL (5 ML) 100 MG/ML UDC GT SCH ×2 (08:38→20:14)
[2019-04-14] MEDS: ASCORBIC ACID 500 MG TABLET GT SCH ×2 (08:38→16:10)
[2019-04-14] MEDS: DOCUSATE SODIUM LIQ 100 MG/10 ML UDC GT SCH ×2 (08:38→16:10)
[2019-04-14] MEDS: POTASSIUM CHLORIDE 20 MEQ/15 ML GT SCH (08:38)
[2019-04-14] MEDS: FERROUS SULFATE - FOR SA ONLY 330 MG/7.5 ML UDC GT SCH ×3 (08:38→16:10)
[2019-04-14] MEDS: Z GUARD REMEDY 4 OZ OINT TP SCH ×2 (09:35→20:16)
[2019-04-14] MEDS: HEPARIN SODIUM, PORCINE 5000 UNITS/1 ML VIAL SQ SCH ×2 (09:35→20:16)
[2019-04-14 20:13] VITALS: BP 100/70
[2019-04-14] MEDS: MULTIVIT W/MINERALS 1 TAB TABLET GT SCH (20:14)
[2019-04-14] MEDS: HYDROGEN PEROXIDE 480 ML BOTTLE TP SCH (20:14)
[2019-04-14] MEDS: BASAGLAR SQ SCH (21:00)
[2019-04-14] MEDS: [UNRECOGNIZED DRUG - OTHER] SQ SCH (21:00)
[2019-04-14] MEDS: SENNOSIDES 8.6 MG TABLET GT SCH (21:00)
[2019-04-15] MEDS: IPRATROPIUM NEB FS 0.5 MG/2.5 ML AMPUL.NEB NEB SCH ×4 (01:28→19:58)
[2019-04-15] MEDS: ALBUTEROL FS 2.5 MG/3 ML VIAL.NEB NEB SCH ×4 (01:28→19:58)
[2019-04-15] MEDS: GLUCERNA 1.2 1,000 ML BOTTLE GT PRN (05:33)
[2019-04-15] MEDS: POLYVINYL ALCOHOL 15 ML BOTTLE EACHEYE SCH ×3 (05:33→17:48)
[2019-04-15] MEDS: OMEPRAZOLE DR 20 MG GT SCH (05:33)
[2019-04-15] MEDS: BLOOD SUGAR DIAGNOSTIC 1 EACH STRIP IN SCH ×2 (05:33→17:48)
[2019-04-15] MEDS: INSULIN LISPRO/ASPART 100 UNIT/ML CARTRIDGE SQ PRN ×2 (05:34→17:49)
[2019-04-15 07:43] VITALS: BP 106/56
[2019-04-15] MEDS: POTASSIUM CHLORIDE 20 MEQ/15 ML GT SCH (09:00)
[2019-04-15] MEDS: ASCORBIC ACID 500 MG TABLET GT SCH ×2 (09:00→17:48)
[2019-04-15] MEDS: BACLOFEN (10 MG) 10 MG TABLET GT SCH ×2 (09:00→20:33)
[2019-04-15] MEDS: Z GUARD REMEDY 4 OZ OINT TP SCH ×2 (09:00→20:35)
[2019-04-15] MEDS: FERROUS SULFATE - FOR SA ONLY 330 MG/7.5 ML UDC GT SCH ×3 (09:00→17:48)
[2019-04-15] MEDS: LEVETIRACETAM SOL (5 ML) 100 MG/ML UDC GT SCH ×2 (09:00→20:33)
[2019-04-15] MEDS: METFORMIN 850 MG TABLET GT SCH ×2 (09:00→17:48)
[2019-04-15] MEDS: PROSTAT (PYXIS) 30 ML UDC GT SCH ×2 (09:00→17:48)
[2019-04-15] MEDS: HEPARIN SODIUM, PORCINE 5000 UNITS/1 ML VIAL SQ SCH ×2 (09:00→20:35)
[2019-04-15] MEDS: DOCUSATE SODIUM LIQ 100 MG/10 ML UDC GT SCH ×2 (09:00→17:48)
[2019-04-15] MEDS: HYDROGEN PEROXIDE 480 ML BOTTLE TP SCH ×2 (16:38→19:58)
--- NOTE | 2019-04-15 19:58 | NUR ---
RT NOTE: RECEIVED TRACH PT ON [facility] VENT ON NOTED SETTINGS PER MD ORDERS. TRACH IS PATENT AND SECURED. TRACH CARE DONE. ASSEMBLER FAUCETS DONE. Q6 BREATHING TX GIVEN WITH NO ADVERSE REACTION NOTED. SX DONE PRN. VENT PLUGGED INTO RED OUTLET. ALARMS ON AND AUDIBLE. ROSSYU BAG @ BEDSIDE. NO RESP DISTRESS AT THIS TIME. WILL CONT TO MONITOR PT. Addendum: 04/16/19 at 0236 by SHE BYRNE RT Amended: Links added.
[2019-04-15 20:19] VITALS: BP 103/70
[2019-04-15] MEDS: MULTIVIT W/MINERALS 1 TAB TABLET GT SCH (20:34)
[2019-04-15] MEDS: BASAGLAR SQ SCH (21:29)
[2019-04-15] MEDS: [UNRECOGNIZED DRUG - OTHER] SQ SCH (21:29)
[2019-04-15] MEDS: SENNOSIDES 8.6 MG TABLET GT SCH (21:29)
[2019-04-16] MEDS: POLYVINYL ALCOHOL 15 ML BOTTLE EACHEYE SCH ×4 (00:29→18:17)
[2019-04-16] MEDS: IPRATROPIUM NEB FS 0.5 MG/2.5 ML AMPUL.NEB NEB SCH ×4 (01:52→19:48)
[2019-04-16] MEDS: ALBUTEROL FS 2.5 MG/3 ML VIAL.NEB NEB SCH ×4 (01:52→19:48)
[2019-04-16] MEDS: OMEPRAZOLE DR 20 MG GT SCH (05:47)
[2019-04-16] MEDS: BLOOD SUGAR DIAGNOSTIC 1 EACH STRIP IN SCH ×2 (05:47→18:17)
[2019-04-16] MEDS: INSULIN LISPRO/ASPART 100 UNIT/ML CARTRIDGE SQ PRN ×2 (05:48→18:18)
[2019-04-16] MEDS: GLUCERNA 1.2 1,000 ML BOTTLE GT PRN (05:58)
[2019-04-16 07:50] VITALS: BP 110/77
--- NOTE | 2019-04-16 08:50 | NUR ---
RT NOTE: REC'D TRACH PT ON [facility] VENT ON NOTED SETTINGS PER MD ORDERS. DOOR FRAMER DONE. Q6 BREATHING TX GIVEN WITH NO ADVERSE REACTION NOTED. SX DONE PRN. VENT PLUGGED INTO RED OUTLET. ALARMS ON AND AUDIBLE. ERIC BAG @ BEDSIDE. NO SOB AT THIS TIME. WILL CONT TO MONITOR. Addendum: 04/16/19 at 0850 by ARIS CRUZ RT Amended: Links added.
[2019-04-16] MEDS: HYDROGEN PEROXIDE 480 ML BOTTLE TP SCH ×2 (09:00→21:00)
[2019-04-16] MEDS: ASCORBIC ACID 500 MG TABLET GT SCH ×2 (09:03→17:00)
[2019-04-16] MEDS: PROSTAT (PYXIS) 30 ML UDC GT SCH ×2 (09:03→17:00)
[2019-04-16] MEDS: METFORMIN 850 MG TABLET GT SCH ×2 (09:03→17:00)
[2019-04-16] MEDS: POTASSIUM CHLORIDE 20 MEQ/15 ML GT SCH (09:03)
[2019-04-16] MEDS: LEVETIRACETAM SOL (5 ML) 100 MG/ML UDC GT SCH ×2 (09:03→20:03)
[2019-04-16] MEDS: BACLOFEN (10 MG) 10 MG TABLET GT SCH ×2 (09:03→20:03)
[2019-04-16] MEDS: DOCUSATE SODIUM LIQ 100 MG/10 ML UDC GT SCH ×2 (09:03→17:00)
[2019-04-16] MEDS: FERROUS SULFATE - FOR SA ONLY 330 MG/7.5 ML UDC GT SCH ×3 (09:03→17:00)
[2019-04-16] MEDS: HEPARIN SODIUM, PORCINE 5000 UNITS/1 ML VIAL SQ SCH ×2 (09:05→20:03)
[2019-04-16] MEDS: Z GUARD REMEDY 4 OZ OINT TP SCH ×3 (09:06→20:04)
--- NOTE | 2019-04-16 10:45 | NUR ---
Pt's gluteal cleft noted with MASD. Received order to apply Z-guard cream q shift and PRN for 14 days. Notified Tosin.
[2019-04-16 19:46] VITALS: BP 90/67
[2019-04-16] MEDS: MULTIVIT W/MINERALS 1 TAB TABLET GT SCH (20:03)
[2019-04-16] MEDS: SENNOSIDES 8.6 MG TABLET GT SCH (21:36)
[2019-04-16] MEDS: BASAGLAR SQ SCH (21:39)
[2019-04-16] MEDS: [UNRECOGNIZED DRUG - OTHER] SQ SCH (21:39)
[2019-04-17] MEDS: POLYVINYL ALCOHOL 15 ML BOTTLE EACHEYE SCH ×5 (00:25→23:51)
[2019-04-17] MEDS: IPRATROPIUM NEB FS 0.5 MG/2.5 ML AMPUL.NEB NEB SCH ×4 (00:46→20:14)
[2019-04-17] MEDS: ALBUTEROL FS 2.5 MG/3 ML VIAL.NEB NEB SCH ×4 (00:46→20:14)
[2019-04-17] MEDS: GLUCERNA 1.2 1,000 ML BOTTLE GT PRN (03:37)
[2019-04-17] MEDS: INSULIN LISPRO/ASPART 100 UNIT/ML CARTRIDGE SQ PRN (05:56)
[2019-04-17] MEDS: OMEPRAZOLE DR 20 MG GT SCH (05:56)
[2019-04-17] MEDS: BLOOD SUGAR DIAGNOSTIC 1 EACH STRIP IN SCH ×2 (05:56→17:38)
[2019-04-17 07:47] VITALS: BP 105/68
--- NOTE | 2019-04-17 08:13 | NUR ---
PT RECEIVED TRACHED ON MECHANICAL VENT W/ SETTINGS PER MD. VENT IN RED OUTLET, AMBUBAG AT BEDSIDE, VENT ALARMS CHECKED AND AUDIBLE. TRACH TUBE PATENT, SECURE. SPARE TRACH AT BEDSIDE. BS EQUAL, DIMINISHED. PT SX'ED AND LAVAGED Q2 AND PRN. MEDS GIVEN INLINE PER MD ORDER. NO RESP DISTRESS NOTED AT THIS TIME. PLAN IS CONTINUE CARE UNDER CURRENT MD ORDERS AND MONITOR FOR CHANGES. Addendum: 04/17/19 at 0814 by VICTORIA DICKEY RT Amended: Links added.
[2019-04-17] MEDS: HYDROGEN PEROXIDE 480 ML BOTTLE TP SCH ×2 (08:17→21:00)
--- NOTE | 2019-04-17 08:18 | NUR ---
SW left voicemail reminder for pt.s sister, Tosin Horvath [phone] regarding family support group taking place 04/18/19 11AM-12PM.
[2019-04-17] MEDS: Z GUARD REMEDY 4 OZ OINT TP SCH ×4 (08:31→20:17)
[2019-04-17] MEDS: FERROUS SULFATE - FOR SA ONLY 330 MG/7.5 ML UDC GT SCH ×3 (08:31→17:38)
[2019-04-17] MEDS: METFORMIN 850 MG TABLET GT SCH ×2 (08:31→17:38)
[2019-04-17] MEDS: ASCORBIC ACID 500 MG TABLET GT SCH ×2 (08:31→17:38)
[2019-04-17] MEDS: BACLOFEN (10 MG) 10 MG TABLET GT SCH ×2 (08:31→20:12)
[2019-04-17] MEDS: DOCUSATE SODIUM LIQ 100 MG/10 ML UDC GT SCH ×2 (08:31→17:38)
[2019-04-17] MEDS: HEPARIN SODIUM, PORCINE 5000 UNITS/1 ML VIAL SQ SCH ×2 (08:31→20:15)
[2019-04-17] MEDS: POTASSIUM CHLORIDE 20 MEQ/15 ML GT SCH (08:31)
[2019-04-17] MEDS: LEVETIRACETAM SOL (5 ML) 100 MG/ML UDC GT SCH ×2 (08:31→20:12)
[2019-04-17] MEDS: PROSTAT (PYXIS) 30 ML UDC GT SCH ×2 (08:31→17:38)
[2019-04-17] MEDS: MULTIVIT W/MINERALS 1 TAB TABLET GT SCH (20:31)
[2019-04-17 20:41] VITALS: BP 144/76
[2019-04-17] MEDS: SENNOSIDES 8.6 MG TABLET GT SCH (21:47)
[2019-04-17] MEDS: [UNRECOGNIZED DRUG - OTHER] SQ SCH (21:47)
[2019-04-17] MEDS: BASAGLAR SQ SCH (21:47)
--- NOTE | 2019-04-17 23:00 | NUR ---
RT NOTE PT RECEIVED TRACHED ON MECHANICAL VENTILATION. AMBU BAG/BACK UP TRACH @ BEDSIDE. TX GIVEN, NO ADVERSE REACTIONS NOTED. TRACH/ORAL SX DONE, TRACH SECURED AND PATENT. ALARMS ON AND AUDIBLE. NO SOB NOTED. WILL MONITOR T/O SHIFT. Addendum: 04/17/19 at 2301 by ABIOLA COMBS RT Amended: Links added.
[2019-04-18] MEDS: ALBUTEROL FS 2.5 MG/3 ML VIAL.NEB NEB SCH ×4 (02:19→19:47)
[2019-04-18] MEDS: IPRATROPIUM NEB FS 0.5 MG/2.5 ML AMPUL.NEB NEB SCH ×4 (02:19→19:47)
[2019-04-18] MEDS: POLYVINYL ALCOHOL 15 ML BOTTLE EACHEYE SCH ×3 (05:17→17:35)
[2019-04-18] MEDS: OMEPRAZOLE DR 20 MG GT SCH (05:17)
[2019-04-18] MEDS: BLOOD SUGAR DIAGNOSTIC 1 EACH STRIP IN SCH ×2 (05:42→18:15)
[2019-04-18] MEDS: INSULIN LISPRO/ASPART 100 UNIT/ML CARTRIDGE SQ PRN ×2 (05:44→18:17)
[2019-04-18 07:49] VITALS: BP 101/74
[2019-04-18] MEDS: HYDROGEN PEROXIDE 480 ML BOTTLE TP SCH ×2 (08:06→19:47)
[2019-04-18] MEDS: BACLOFEN (10 MG) 10 MG TABLET GT SCH ×2 (09:43→20:31)
[2019-04-18] MEDS: METFORMIN 850 MG TABLET GT SCH ×2 (09:43→17:35)
[2019-04-18] MEDS: PROSTAT (PYXIS) 30 ML UDC GT SCH ×2 (09:43→17:35)
[2019-04-18] MEDS: FERROUS SULFATE - FOR SA ONLY 330 MG/7.5 ML UDC GT SCH ×3 (09:43→17:35)
[2019-04-18] MEDS: LEVETIRACETAM SOL (5 ML) 100 MG/ML UDC GT SCH ×2 (09:43→20:31)
[2019-04-18] MEDS: Z GUARD REMEDY 4 OZ OINT TP SCH ×4 (09:43→20:34)
[2019-04-18] MEDS: ASCORBIC ACID 500 MG TABLET GT SCH ×2 (09:43→17:35)
[2019-04-18] MEDS: DOCUSATE SODIUM LIQ 100 MG/10 ML UDC GT SCH ×2 (09:43→17:35)
[2019-04-18] MEDS: POTASSIUM CHLORIDE 20 MEQ/15 ML GT SCH (09:43)
[2019-04-18] MEDS: HEPARIN SODIUM, PORCINE 5000 UNITS/1 ML VIAL SQ SCH ×2 (09:50→20:34)
--- NOTE | 2019-04-18 13:17 | NUR ---
Spoke with resident's sister Tosin and obtain consent for flu vaccine administration. Dr. Alvarez gave an order for flu vaccine administration.
[2019-04-18 19:39] VITALS: BP 102/70
--- NOTE | 2019-04-18 19:47 | NUR ---
RT NOTE: RECEIVED TRACH PT ON [facility] VENT ON NOTED SETTINGS PER MD ORDERS. TRACH IS PATENT AND SECURED. TRACH CARE DONE. DELIVERY LEAD DONE. Q6 BREATHING TX GIVEN WITH NO ADVERSE REACTION NOTED. SX DONE PRN. VENT PLUGGED INTO RED OUTLET. ALARMS ON AND AUDIBLE. ROSSYU BAG @ BEDSIDE. NO RESP DISTRESS AT THIS TIME. WILL CONT TO MONITOR PT. Addendum: 04/19/19 at 0233 by SHE BYRNE RT Amended: Links added.
[2019-04-18] MEDS: MULTIVIT W/MINERALS 1 TAB TABLET GT SCH (20:33)
[2019-04-18] MEDS: ACETAMINOPHEN 650 MG/20 ML UDC- SA PATIENTS-PAIN ONLY GT PRN (20:35)
[2019-04-18] MEDS: [UNRECOGNIZED DRUG - OTHER] SQ SCH (21:46)
[2019-04-18] MEDS: SENNOSIDES 8.6 MG TABLET GT SCH (21:46)
[2019-04-18] MEDS: BASAGLAR SQ SCH (21:46)
[2019-04-19] MEDS: POLYVINYL ALCOHOL 15 ML BOTTLE EACHEYE SCH ×4 (00:33→17:09)
[2019-04-19] MEDS: ALBUTEROL FS 2.5 MG/3 ML VIAL.NEB NEB SCH ×4 (01:33→20:02)
[2019-04-19] MEDS: IPRATROPIUM NEB FS 0.5 MG/2.5 ML AMPUL.NEB NEB SCH ×4 (01:33→20:02)
[2019-04-19] MEDS: OMEPRAZOLE DR 20 MG GT SCH (05:45)
[2019-04-19] MEDS: BLOOD SUGAR DIAGNOSTIC 1 EACH STRIP IN SCH ×2 (05:45→17:09)
[2019-04-19] MEDS: INSULIN LISPRO/ASPART 100 UNIT/ML CARTRIDGE SQ PRN ×2 (05:46→17:13)
[2019-04-19 07:54] VITALS: BP 101/52
[2019-04-19] MEDS: FERROUS SULFATE - FOR SA ONLY 330 MG/7.5 ML UDC GT SCH ×3 (09:00→17:09)
[2019-04-19] MEDS: DOCUSATE SODIUM LIQ 100 MG/10 ML UDC GT SCH ×2 (09:00→17:09)
[2019-04-19] MEDS: BACLOFEN (10 MG) 10 MG TABLET GT SCH ×2 (09:00→20:36)
[2019-04-19] MEDS: ASCORBIC ACID 500 MG TABLET GT SCH ×2 (09:00→17:09)
[2019-04-19] MEDS: LEVETIRACETAM SOL (5 ML) 100 MG/ML UDC GT SCH ×2 (09:00→20:36)
[2019-04-19] MEDS: POTASSIUM CHLORIDE 20 MEQ/15 ML GT SCH (09:00)
[2019-04-19] MEDS: METFORMIN 850 MG TABLET GT SCH ×2 (09:00→17:09)
[2019-04-19] MEDS: PROSTAT (PYXIS) 30 ML UDC GT SCH ×2 (09:00→17:09)
[2019-04-19] MEDS: HEPARIN SODIUM, PORCINE 5000 UNITS/1 ML VIAL SQ SCH ×2 (09:00→20:36)
[2019-04-19] MEDS: Z GUARD REMEDY 4 OZ OINT TP SCH ×3 (09:00→20:36)
--- NOTE | 2019-04-19 09:13 | NUR ---
RT NOTE: REC'D TRACH PT ON [facility] VENT ON NOTED SETTINGS PER MD ORDERS. PULLEY WORKER DONE. Q6 BREATHING TX GIVEN WITH NO ADVERSE REACTION NOTED. SX DONE PRN. VENT PLUGGED INTO RED OUTLET. ALARMS ON AND AUDIBLE. ERIC BAG @ BEDSIDE. NO SOB AT THIS TIME. WILL CONT TO MONITOR. Addendum: 04/19/19 at 0913 by ARIS CRUZ RT Amended: Links added.
[2019-04-19] MEDS: HYDROGEN PEROXIDE 480 ML BOTTLE TP SCH ×2 (09:17→20:02)
--- NOTE | 2019-04-19 10:08 | NUR ---
WOUND CARE CONSULT: PT SEEN FOR INCONTINENCE ASSOCIATED SKIN DAMAGE WITH RASH TO GLUTEAL CREASE AREA EXTENDING TO BUTTOCKS. PT NOTED TO BE INCONTINENT OF URINE AND VERY LOOSE STOOL. RECOMMENDATIONS MADE FOR SKIN PROTECTION AND SKIN CARE. DISCUSSED WITH NURSING STAFF. PT ON FIRST STEP CIRRUS LOW AIRLOSS MATTRESS. ALL PRESSURE ULCER PREVENTION MEASURES IN PLACE. WILL SEE PRN. IN AGREEMENT WITH PLAN OF CARE.
[2019-04-19] MEDS ORDERED: CLOTRIMAZOLE 1% 15 GM TUBE TP PRN (11:00)
--- NOTE | 2019-04-19 11:30 | NUR ---
Reported to Dr. Alvarez resident with low grade temperature last night of 99.5, current V/S 98.9, 84, 12, 100, 101/52. New order given for UA and urine culture. Order carried out.
--- NOTE | 2019-04-19 16:16 | NUR ---
April Family Support 04/18/19 Group Note Goal: Residents family will attend family support group held Thursday, April 18, 2019 from 11 am-12 pm. Intervention: SW facilitated family support group and started off with icebreaker consisting of acknowledgements and listing an adjective that described how the family felt at the moment. SW explored how family de-stresses and educated family on a range of additional de-stressors. SW explored the familys support systems and how they are shown support. SW provided validation, used reflective listening. SW acknowledged Tosin for making time to attend the family support group on her day off. Response: The patients sister, Tosin Horvath was in attendance and is Citizen Of [place] speaking only. Tosin expressed that she felt tired and happy at the moment. Tosin expressed that her support group consists of her children and grandchildren who bring her vickie. Tosin stated, Im a spiritual person as well and like to take long walks to think. Tosin was supportive of other family members and gave suggestions when appropriate. Tosin expressed appreciation for the family support group. Plan: Family was invited to attend next family support Group held May 23, 2019, 11 am-12 pm.
[2019-04-19] MEDS: ACETAMINOPHEN 650 MG/20 ML UDC- SA PATIENTS-PAIN ONLY GT PRN (17:12)
[2019-04-19 19:02] LABS: APPEARANCE,URINE Slightly Cloudy (CLEAR); BILIRUBIN,URINE Negative (NEGATIVE); BLOOD, URINE Moderate Ery/uL (NEGATIVE); COLOR,URINE Dark (YELLOW); KETONES,URINE Negative (NEGATIVE); LEUKOCYTE ESTERASE ,URINE Negative (NEGATIVE); NITRITE, URINE Negative (NEGATIVE); PH,URINE 7.5 (5.0-8.0); PROTEIN,URINE Trace mg/dl (NEGATIVE); UGLUCOSE Negative (NEGATIVE); UROBILINOGEN,URINE 0.2 EU/dL (0.2)
[2019-04-19 19:12] LABS: BACTERIA,URINE Many /HPF (None Seen); SQUAMOUS EPITHELIAL CELL,UR Moderate /HPF (None Seen)
[2019-04-19 19:13] LABS: RBC,URINE 21-50 /HPF (0-2)
[2019-04-19 19:30] VITALS: BP 126/79
--- NOTE | 2019-04-19 19:30 | NUR ---
Notified Mya Rodgers patient with episodes of low grade temp > 99.0 new orders for CXR,CBC,BMP in AM.Sister Tosin (RP) notified.Will continue to monitor.
--- NOTE | 2019-04-19 20:02 | NUR ---
RT NOTE: RECEIVED TRACH PT ON [facility] VENT ON NOTED SETTINGS PER MD ORDERS. TRACH IS PATENT AND SECURED. TRACH CARE DONE. YOUTH SPECIALIST DONE. Q6 BREATHING TX GIVEN WITH NO ADVERSE REACTION NOTED. SX DONE PRN. VENT PLUGGED INTO RED OUTLET. ALARMS ON AND AUDIBLE. ROSSYU BAG @ BEDSIDE. NO RESP DISTRESS AT THIS TIME. WILL CONT TO MONITOR PT. Addendum: 04/20/19 at 0214 by SHE BYRNE RT Amended: Links added.
[2019-04-19] MEDS: MULTIVIT W/MINERALS 1 TAB TABLET GT SCH (20:36)
[2019-04-19] MEDS: CLOTRIMAZOLE 1% 15 GM TUBE TP SCH (21:13)
[2019-04-19] MEDS: SENNOSIDES 8.6 MG TABLET GT SCH (21:14)
[2019-04-19] MEDS: [UNRECOGNIZED DRUG - OTHER] SQ SCH (21:14)
[2019-04-19] MEDS: BASAGLAR SQ SCH (21:14)
[2019-04-20] MEDS: POLYVINYL ALCOHOL 15 ML BOTTLE EACHEYE SCH ×5 (00:08→23:44)
[2019-04-20] MEDS: ALBUTEROL FS 2.5 MG/3 ML VIAL.NEB NEB SCH ×4 (01:26→20:20)
[2019-04-20] MEDS: IPRATROPIUM NEB FS 0.5 MG/2.5 ML AMPUL.NEB NEB SCH ×4 (01:26→20:20)
[2019-04-20] MEDS: OMEPRAZOLE DR 20 MG GT SCH (05:02)
[2019-04-20] MEDS: GLUCERNA 1.2 1,000 ML BOTTLE GT PRN (05:02)
[2019-04-20] MEDS: BLOOD SUGAR DIAGNOSTIC 1 EACH STRIP IN SCH ×2 (06:16→18:22)
[2019-04-20] MEDS: INSULIN LISPRO/ASPART 100 UNIT/ML CARTRIDGE SQ PRN ×2 (06:17→18:40)
[2019-04-20 06:32] LABS: BASOPHILS # (AUTO) 0.1 /CMM (0.0-0.2); BASOPHILS % (AUTO) 1.5 % (0.0-2.0); EOSINOPHILS % (AUTO) 3.3 % (0.0-6.0); HEMATOCRIT 37 % (33-45); HEMOGLOBIN 12.7 g/dL (11.5-14.8); LYMPHOCYTES % (AUTO) 43.2 % (20.0-44.0); MEAN CORPUSCULAR HGB CONC 34 g/dl (31.0-36.0); MEAN CORPUSCULAR VOLUME 91 fL (82-100); MONOCYTES # (AUTO) 0.5 /CMM (0.1-1.30); MONOCYTES % (AUTO) 7.6 % (2.0-12.0); NEUTROPHILS # (AUTO) 3.1 /CMM (1.8-8.9); NEUTROPHILS % (AUTO) 44.4 % (43.0-81.0); PLATELET COUNT (AUTO) 379 /CMM (150-450); RED BLOOD CELL COUNT(AUTO) 4.09 MIL/uL (4.0-5.2)
[2019-04-20 06:44] LABS: CALCIUM, SERUM 9.4 mg/dL (8.5-10.1); CREATININE 0.9 mg/dL (0.6-1.3); POTASSIUM 3.8 mmol/L (3.5-5.1)
[2019-04-20 07:37] VITALS: BP 96/64
[2019-04-20] MEDS: CLOTRIMAZOLE 1% 15 GM TUBE TP SCH ×2 (09:00→20:54)
[2019-04-20] MEDS: Z GUARD REMEDY 4 OZ OINT TP SCH ×2 (09:00→20:54)
[2019-04-20] MEDS: HYDROGEN PEROXIDE 480 ML BOTTLE TP SCH ×2 (09:12→20:53)
[2019-04-20] MEDS: DOCUSATE SODIUM LIQ 100 MG/10 ML UDC GT SCH ×2 (09:30→16:42)
[2019-04-20] MEDS: ASCORBIC ACID 500 MG TABLET GT SCH ×2 (09:31→16:42)
[2019-04-20] MEDS: PROSTAT (PYXIS) 30 ML UDC GT SCH ×2 (09:31→16:42)
[2019-04-20] MEDS: FERROUS SULFATE - FOR SA ONLY 330 MG/7.5 ML UDC GT SCH ×3 (09:31→16:42)
[2019-04-20] MEDS: POTASSIUM CHLORIDE 20 MEQ/15 ML GT SCH (09:31)
[2019-04-20] MEDS: METFORMIN 850 MG TABLET GT SCH ×2 (09:31→16:42)
[2019-04-20] MEDS: LEVETIRACETAM SOL (5 ML) 100 MG/ML UDC GT SCH ×2 (09:31→20:53)
[2019-04-20] MEDS: BACLOFEN (10 MG) 10 MG TABLET GT SCH ×2 (09:31→20:53)
[2019-04-20] MEDS: HEPARIN SODIUM, PORCINE 5000 UNITS/1 ML VIAL SQ SCH ×2 (09:31→20:53)
[2019-04-20] MEDS ORDERED: INFLUENZA VACCINE 2019-20 0.5 ML DISP.SYRIN IM ONE (10:00)
--- NOTE | 2019-04-20 11:00 | NUR ---
Reported CBC, BMP, UA and Chest Xray result to Dr. Alvarez, He said he will review and take a look at the patient.
--- NOTE | 2019-04-20 11:13 | NUR ---
RT PATIENT HAD A EPISODE OF SOB WHEN VALET CASHIER TURNS THE HEAD DOWN IN PREPARATION FOR HER SHOWER. PATIENT WAS HYPEROXYGENATED WITH 100% 02.PATIENT STABILIZE, RECOMMENDED TO DO BED BATH AT BEDSIDE.RN AWARE, WILL CONTINUE TO MONITOR. Addendum: 04/20/19 at 1125 by EDNA JUNIOR RT Amended: Links added.
[2019-04-20] MEDS: LEVOFLOXACIN (500MG) 500 MG TABLET PO SCH (11:30)
[2019-04-20] MEDS: ACETYLCYSTEINE 10% SOLN 400 MG/4 ML VIAL NEB SCH ×3 (12:30→23:52)
--- NOTE | 2019-04-20 13:13 | NUR ---
Dr. Alvarez came to assess patient reviewed chest Xray result with new order for ATB Levaquin, Acetylcysteine breathing treatment Q 8h and chest Xray to be repeated on Tuesday. Resident's sister Tosin made aware of new order.
--- NOTE | 2019-04-20 17:51 | NUR ---
RT PATIENT WAS RECEIVED ON CONTINUOUS VENT SUPPORT ON NOTED VENT SETTINGS.ALARMS ARE SET AND AUDIBLE.AIRWAY PATENT AND SECURED. PATIENT STABLE AND TOLERATED CURRENT VENT SETTINGS.WILL CONTINUE TO MONITOR. Addendum: 04/20/19 at 1751 by EDNA JUNIOR RT Amended: Links added.
[2019-04-20] MEDS: MULTIVIT W/MINERALS 1 TAB TABLET GT SCH (20:53)
[2019-04-20] MEDS: BASAGLAR SQ SCH (21:01)
[2019-04-20] MEDS: SENNOSIDES 8.6 MG TABLET GT SCH (21:01)
[2019-04-20] MEDS: [UNRECOGNIZED DRUG - OTHER] SQ SCH (21:01)
[2019-04-21] MEDS: ALBUTEROL FS 2.5 MG/3 ML VIAL.NEB NEB SCH ×4 (02:17→20:04)
[2019-04-21] MEDS: IPRATROPIUM NEB FS 0.5 MG/2.5 ML AMPUL.NEB NEB SCH ×4 (02:17→20:04)
[2019-04-21] MEDS: GLUCERNA 1.2 1,000 ML BOTTLE GT PRN (04:45)
[2019-04-21] MEDS: OMEPRAZOLE DR 20 MG GT SCH (05:09)
[2019-04-21] MEDS: POLYVINYL ALCOHOL 15 ML BOTTLE EACHEYE SCH ×3 (05:09→17:04)
[2019-04-21] MEDS: BLOOD SUGAR DIAGNOSTIC 1 EACH STRIP IN SCH ×2 (05:20→17:35)
[2019-04-21] MEDS: INSULIN LISPRO/ASPART 100 UNIT/ML CARTRIDGE SQ PRN ×2 (05:21→17:37)
[2019-04-21 07:31] VITALS: BP 113/64
[2019-04-21] MEDS: HYDROGEN PEROXIDE 480 ML BOTTLE TP SCH ×2 (07:56→20:05)
[2019-04-21] MEDS: ACETYLCYSTEINE 10% SOLN 400 MG/4 ML VIAL NEB SCH ×3 (07:56→23:22)
[2019-04-21] MEDS: DOCUSATE SODIUM LIQ 100 MG/10 ML UDC GT SCH ×2 (08:00→16:10)
[2019-04-21] MEDS: FERROUS SULFATE - FOR SA ONLY 330 MG/7.5 ML UDC GT SCH ×3 (08:00→16:10)
[2019-04-21] MEDS: METFORMIN 850 MG TABLET GT SCH ×2 (08:01→16:11)
[2019-04-21] MEDS: BACLOFEN (10 MG) 10 MG TABLET GT SCH ×2 (08:02→20:05)
[2019-04-21] MEDS: LEVETIRACETAM SOL (5 ML) 100 MG/ML UDC GT SCH ×2 (08:02→20:05)
[2019-04-21] MEDS: POTASSIUM CHLORIDE 20 MEQ/15 ML GT SCH (08:03)
[2019-04-21] MEDS: ASCORBIC ACID 500 MG TABLET GT SCH ×2 (08:04→16:11)
[2019-04-21] MEDS: CLOTRIMAZOLE 1% 15 GM TUBE TP SCH ×2 (08:04→20:05)
[2019-04-21] MEDS: Z GUARD REMEDY 4 OZ OINT TP SCH ×2 (08:04→20:05)
[2019-04-21] MEDS: PROSTAT (PYXIS) 30 ML UDC GT SCH ×2 (08:04→16:10)
[2019-04-21] MEDS: HEPARIN SODIUM, PORCINE 5000 UNITS/1 ML VIAL SQ SCH ×2 (08:06→20:05)
[2019-04-21] MEDS: LEVOFLOXACIN (500MG) 500 MG TABLET PO SCH (11:32)
[2019-04-21 20:04] VITALS: BP 100/68
[2019-04-21] MEDS: MULTIVIT W/MINERALS 1 TAB TABLET GT SCH (20:05)
[2019-04-21] MEDS: [UNRECOGNIZED DRUG - OTHER] SQ SCH (21:06)
[2019-04-21] MEDS: BASAGLAR SQ SCH (21:06)
[2019-04-21] MEDS: SENNOSIDES 8.6 MG TABLET GT SCH (21:06)
[2019-04-22] MEDS: POLYVINYL ALCOHOL 15 ML BOTTLE EACHEYE SCH ×4 (00:05→17:36)
[2019-04-22] MEDS: IPRATROPIUM NEB FS 0.5 MG/2.5 ML AMPUL.NEB NEB SCH ×4 (01:47→19:42)
[2019-04-22] MEDS: ALBUTEROL FS 2.5 MG/3 ML VIAL.NEB NEB SCH ×4 (01:47→19:42)
[2019-04-22] MEDS: GLUCERNA 1.2 1,000 ML BOTTLE GT PRN (05:35)
[2019-04-22] MEDS: BLOOD SUGAR DIAGNOSTIC 1 EACH STRIP IN SCH ×2 (05:35→17:36)
[2019-04-22] MEDS: OMEPRAZOLE DR 20 MG GT SCH (05:35)
[2019-04-22] MEDS: INSULIN LISPRO/ASPART 100 UNIT/ML CARTRIDGE SQ PRN (05:36)
[2019-04-22] MEDS: ACETYLCYSTEINE 10% SOLN 400 MG/4 ML VIAL NEB SCH ×3 (07:19→23:18)
[2019-04-22 07:26] VITALS: BP 104/75
[2019-04-22] MEDS: FERROUS SULFATE - FOR SA ONLY 330 MG/7.5 ML UDC GT SCH ×3 (09:00→16:32)
[2019-04-22] MEDS: LEVETIRACETAM SOL (5 ML) 100 MG/ML UDC GT SCH ×2 (09:00→21:18)
[2019-04-22] MEDS: METFORMIN 850 MG TABLET GT SCH ×2 (09:00→16:32)
[2019-04-22] MEDS: CLOTRIMAZOLE 1% 15 GM TUBE TP SCH ×2 (09:00→21:19)
[2019-04-22] MEDS: Z GUARD REMEDY 4 OZ OINT TP SCH ×2 (09:00→21:19)
[2019-04-22] MEDS: BACLOFEN (10 MG) 10 MG TABLET GT SCH ×2 (09:00→21:18)
[2019-04-22] MEDS: DOCUSATE SODIUM LIQ 100 MG/10 ML UDC GT SCH ×2 (09:00→16:32)
[2019-04-22] MEDS: PROSTAT (PYXIS) 30 ML UDC GT SCH ×2 (09:00→16:32)
[2019-04-22] MEDS: ASCORBIC ACID 500 MG TABLET GT SCH ×2 (09:00→16:32)
[2019-04-22] MEDS: HEPARIN SODIUM, PORCINE 5000 UNITS/1 ML VIAL SQ SCH ×2 (09:00→21:18)
[2019-04-22] MEDS: POTASSIUM CHLORIDE 20 MEQ/15 ML GT SCH (09:00)
[2019-04-22] MEDS: HYDROGEN PEROXIDE 480 ML BOTTLE TP SCH ×2 (09:10→21:09)
[2019-04-22] MEDS: LEVOFLOXACIN (500MG) 500 MG TABLET PO SCH (12:29)
[2019-04-22 20:06] VITALS: BP 111/78
[2019-04-22] MEDS: MULTIVIT W/MINERALS 1 TAB TABLET GT SCH (21:18)
[2019-04-22] MEDS: BASAGLAR SQ SCH (21:19)
[2019-04-22] MEDS: SENNOSIDES 8.6 MG TABLET GT SCH (21:19)
[2019-04-22] MEDS: [UNRECOGNIZED DRUG - OTHER] SQ SCH (21:19)
[2019-04-23] MEDS: IPRATROPIUM NEB FS 0.5 MG/2.5 ML AMPUL.NEB NEB SCH ×4 (01:57→19:21)
[2019-04-23] MEDS: ALBUTEROL FS 2.5 MG/3 ML VIAL.NEB NEB SCH ×4 (01:57→19:21)
[2019-04-23] MEDS: GLUCERNA 1.2 1,000 ML BOTTLE GT PRN (05:15)
[2019-04-23] MEDS: OMEPRAZOLE DR 20 MG GT SCH (05:15)
[2019-04-23] MEDS: POLYVINYL ALCOHOL 15 ML BOTTLE EACHEYE SCH ×4 (05:15→17:11)
[2019-04-23] MEDS: BLOOD SUGAR DIAGNOSTIC 1 EACH STRIP IN SCH ×2 (05:48→17:41)
[2019-04-23] MEDS: INSULIN LISPRO/ASPART 100 UNIT/ML CARTRIDGE SQ PRN (05:49)
[2019-04-23] MEDS: ACETYLCYSTEINE 10% SOLN 400 MG/4 ML VIAL NEB SCH ×3 (08:08→23:30)
--- NOTE | 2019-04-23 08:49 | NUR ---
RT NOTE: REC'D TRACH PT ON [facility] VENT ON NOTED SETTINGS PER MD ORDERS. MIXER AND SCALER DONE. Q6 BREATHING TX GIVEN WITH NO ADVERSE REACTION NOTED. SX DONE PRN. VENT PLUGGED INTO RED OUTLET. ALARMS ON AND AUDIBLE. ERIC BAG @ BEDSIDE. NO SOB AT THIS TIME. WILL CONT TO MONITOR. Addendum: 04/23/19 at 0849 by ARIS CRUZ RT Amended: Links added.
[2019-04-23] MEDS: HYDROGEN PEROXIDE 480 ML BOTTLE TP SCH ×2 (09:00→21:00)
[2019-04-23] MEDS: LEVETIRACETAM SOL (5 ML) 100 MG/ML UDC GT SCH ×2 (09:49→20:13)
[2019-04-23] MEDS: BACLOFEN (10 MG) 10 MG TABLET GT SCH ×2 (09:49→20:13)
[2019-04-23] MEDS: FERROUS SULFATE - FOR SA ONLY 330 MG/7.5 ML UDC GT SCH ×3 (09:49→16:13)
[2019-04-23] MEDS: METFORMIN 850 MG TABLET GT SCH ×2 (09:49→16:13)
[2019-04-23] MEDS: DOCUSATE SODIUM LIQ 100 MG/10 ML UDC GT SCH ×2 (09:49→16:13)
[2019-04-23] MEDS: HEPARIN SODIUM, PORCINE 5000 UNITS/1 ML VIAL SQ SCH ×2 (09:50→20:14)
[2019-04-23] MEDS: PROSTAT (PYXIS) 30 ML UDC GT SCH ×2 (09:50→16:13)
[2019-04-23] MEDS: ASCORBIC ACID 500 MG TABLET GT SCH ×2 (09:50→16:13)
[2019-04-23] MEDS: POTASSIUM CHLORIDE 20 MEQ/15 ML GT SCH (09:50)
[2019-04-23] MEDS: CLOTRIMAZOLE 1% 15 GM TUBE TP SCH ×2 (09:50→20:14)
[2019-04-23] MEDS: Z GUARD REMEDY 4 OZ OINT TP SCH ×2 (09:50→20:14)
[2019-04-23 09:51] VITALS: BP 114/79
[2019-04-23] MEDS: LEVOFLOXACIN (500MG) 500 MG TABLET PO SCH (11:30)
[2019-04-23 19:47] VITALS: BP 111/73
[2019-04-23] MEDS: MULTIVIT W/MINERALS 1 TAB TABLET GT SCH (20:13)
[2019-04-23] MEDS: SENNOSIDES 8.6 MG TABLET GT SCH (21:31)
[2019-04-23] MEDS: [UNRECOGNIZED DRUG - OTHER] SQ SCH (21:32)
[2019-04-23] MEDS: BASAGLAR SQ SCH (21:32)
[2019-04-24] MEDS: POLYVINYL ALCOHOL 15 ML BOTTLE EACHEYE SCH ×5 (00:40→23:54)
[2019-04-24] MEDS: IPRATROPIUM NEB FS 0.5 MG/2.5 ML AMPUL.NEB NEB SCH ×4 (01:18→19:55)
[2019-04-24] MEDS: ALBUTEROL FS 2.5 MG/3 ML VIAL.NEB NEB SCH ×4 (01:18→19:55)
[2019-04-24] MEDS: OMEPRAZOLE DR 20 MG GT SCH (05:12)
[2019-04-24] MEDS: BLOOD SUGAR DIAGNOSTIC 1 EACH STRIP IN SCH ×2 (05:54→17:45)
[2019-04-24] MEDS: INSULIN LISPRO/ASPART 100 UNIT/ML CARTRIDGE SQ PRN (05:56)
[2019-04-24] MEDS: ACETYLCYSTEINE 10% SOLN 400 MG/4 ML VIAL NEB SCH (07:53)
[2019-04-24] MEDS: HYDROGEN PEROXIDE 480 ML BOTTLE TP SCH ×2 (08:37→19:55)
--- NOTE | 2019-04-24 08:57 | NUR ---
Late entry for 04/23/19 Seen by SUPERVISOR ROVING Mya Rodgers. Relayed CXR result to her. No new order.
[2019-04-24] MEDS: FERROUS SULFATE - FOR SA ONLY 330 MG/7.5 ML UDC GT SCH ×3 (09:06→16:29)
[2019-04-24] MEDS: ASCORBIC ACID 500 MG TABLET GT SCH ×2 (09:06→16:29)
[2019-04-24] MEDS: LEVETIRACETAM SOL (5 ML) 100 MG/ML UDC GT SCH ×2 (09:06→20:17)
[2019-04-24] MEDS: DOCUSATE SODIUM LIQ 100 MG/10 ML UDC GT SCH ×2 (09:06→16:29)
[2019-04-24] MEDS: BACLOFEN (10 MG) 10 MG TABLET GT SCH ×2 (09:06→20:17)
[2019-04-24] MEDS: PROSTAT (PYXIS) 30 ML UDC GT SCH ×2 (09:06→16:29)
[2019-04-24] MEDS: POTASSIUM CHLORIDE 20 MEQ/15 ML GT SCH (09:06)
[2019-04-24] MEDS: METFORMIN 850 MG TABLET GT SCH ×2 (09:06→16:29)
[2019-04-24] MEDS: HEPARIN SODIUM, PORCINE 5000 UNITS/1 ML VIAL SQ SCH ×2 (09:07→20:22)
[2019-04-24] MEDS: Z GUARD REMEDY 4 OZ OINT TP SCH ×2 (09:07→20:18)
[2019-04-24] MEDS: CLOTRIMAZOLE 1% 15 GM TUBE TP SCH ×2 (09:07→20:18)
[2019-04-24 10:09] VITALS: BP 94/65
[2019-04-24] MEDS: LEVOFLOXACIN (500MG) 500 MG TABLET PO SCH (12:22)
[2019-04-24] MEDS: POLYETHYLENE GLYCOL 3350 17 GM POWD.PACK GT PRN (18:34)
--- NOTE | 2019-04-24 19:55 | NUR ---
RT NOTE: RECEIVED TRACH PT ON [facility] VENT ON NOTED SETTINGS PER MD ORDERS. TRACH IS PATENT AND SECURED. TRACH CARE DONE. DIRECTOR OF QUALITY CONTROL DONE. Q6 BREATHING TX GIVEN WITH NO ADVERSE REACTION NOTED. SX DONE PRN. VENT PLUGGED INTO RED OUTLET. ALARMS ON AND AUDIBLE. ROSSYU BAG @ BEDSIDE. NO RESP DISTRESS AT THIS TIME. WILL CONT TO MONITOR PT. Addendum: 04/25/19 at 0308 by SHE BYRNE RT Amended: Links added.
[2019-04-24 20:15] VITALS: BP 115/71
[2019-04-24] MEDS: MULTIVIT W/MINERALS 1 TAB TABLET GT SCH (20:17)
[2019-04-24] MEDS: SENNOSIDES 8.6 MG TABLET GT SCH (22:39)
[2019-04-24] MEDS: BASAGLAR SQ SCH (22:56)
[2019-04-24] MEDS: [UNRECOGNIZED DRUG - OTHER] SQ SCH (22:56)
[2019-04-25] MEDS: ACETYLCYSTEINE 10% SOLN 400 MG/4 ML VIAL NEB SCH ×3 (00:29→14:30)
[2019-04-25] MEDS: ALBUTEROL FS 2.5 MG/3 ML VIAL.NEB NEB SCH ×4 (00:32→19:30)
[2019-04-25] MEDS: IPRATROPIUM NEB FS 0.5 MG/2.5 ML AMPUL.NEB NEB SCH ×4 (00:32→19:30)
[2019-04-25] MEDS: BLOOD SUGAR DIAGNOSTIC 1 EACH STRIP IN SCH ×2 (05:47→17:33)
[2019-04-25] MEDS: POLYETHYLENE GLYCOL 3350 17 GM POWD.PACK GT PRN (05:50)
[2019-04-25] MEDS: GLUCERNA 1.2 1,000 ML BOTTLE GT PRN (05:50)
[2019-04-25] MEDS: POLYVINYL ALCOHOL 15 ML BOTTLE EACHEYE SCH ×4 (05:52→23:48)
[2019-04-25] MEDS: OMEPRAZOLE DR 20 MG GT SCH (05:52)
[2019-04-25] MEDS: INSULIN LISPRO/ASPART 100 UNIT/ML CARTRIDGE SQ PRN ×2 (05:57→17:34)
[2019-04-25 07:42] VITALS: BP 95/74
[2019-04-25] MEDS: HYDROGEN PEROXIDE 480 ML BOTTLE TP SCH ×2 (07:55→21:00)
[2019-04-25] MEDS: BACLOFEN (10 MG) 10 MG TABLET GT SCH ×2 (09:23→20:08)
[2019-04-25] MEDS: LEVETIRACETAM SOL (5 ML) 100 MG/ML UDC GT SCH ×2 (09:23→20:08)
[2019-04-25] MEDS: PROSTAT (PYXIS) 30 ML UDC GT SCH ×2 (09:23→17:32)
[2019-04-25] MEDS: ASCORBIC ACID 500 MG TABLET GT SCH ×2 (09:23→17:32)
[2019-04-25] MEDS: DOCUSATE SODIUM LIQ 100 MG/10 ML UDC GT SCH ×2 (09:23→17:32)
[2019-04-25] MEDS: METFORMIN 850 MG TABLET GT SCH ×2 (09:23→17:32)
[2019-04-25] MEDS: POTASSIUM CHLORIDE 20 MEQ/15 ML GT SCH (09:23)
[2019-04-25] MEDS: FERROUS SULFATE - FOR SA ONLY 330 MG/7.5 ML UDC GT SCH ×3 (09:23→17:32)
[2019-04-25] MEDS: Z GUARD REMEDY 4 OZ OINT TP SCH ×2 (09:24→20:11)
[2019-04-25] MEDS: HEPARIN SODIUM, PORCINE 5000 UNITS/1 ML VIAL SQ SCH ×2 (09:24→20:11)
[2019-04-25] MEDS: CLOTRIMAZOLE 1% 15 GM TUBE TP SCH ×2 (09:24→20:11)
[2019-04-25] MEDS: LEVOFLOXACIN (500MG) 500 MG TABLET PO SCH (11:30)
--- NOTE | 2019-04-25 11:43 | NUR ---
RT RECEIVED PT TRACH'D ON [facility] VENT WITH SETTINGS PER MD ORDER. INDUSTRIAL REHABILITATION CONSULTANT DONE. SPARE TRACH AND AMBU BAG AT HEAD OF BED. VENT PLUGGED INTO RED OUTLET. TX'S GIVEN ORDERED. NO ADVERSE REACTIONS OBSERVED. SUCTIONED AND MONITORED PRN. NO SOB NOTED THROUGHOUT SHIFT. TRACH CARE DONE. WILL CONTINUE TO MONITOR THE PT FOR ANY CHANGES. Addendum: 04/25/19 at 1807 by WING WHITTINGTON RT Amended: Links added.
[2019-04-25] MEDS: BISACODYL SUPP (10 MG) 10 MG/SUPP.RECT SUPP.RECT RC PRN (18:30)
[2019-04-25] MEDS: MULTIVIT W/MINERALS 1 TAB TABLET GT SCH (20:08)
[2019-04-25 20:26] VITALS: BP 115/71
[2019-04-25] MEDS: SENNOSIDES 8.6 MG TABLET GT SCH (21:43)
[2019-04-25] MEDS: BASAGLAR SQ SCH (21:44)
[2019-04-25] MEDS: [UNRECOGNIZED DRUG - OTHER] SQ SCH (21:44)
[2019-04-26] MEDS: ACETYLCYSTEINE 10% SOLN 400 MG/4 ML VIAL NEB SCH ×4 (00:27→23:05)
[2019-04-26] MEDS: ALBUTEROL FS 2.5 MG/3 ML VIAL.NEB NEB SCH ×4 (00:28→19:30)
[2019-04-26] MEDS: IPRATROPIUM NEB FS 0.5 MG/2.5 ML AMPUL.NEB NEB SCH ×4 (00:28→19:30)
[2019-04-26] MEDS: INSULIN LISPRO/ASPART 100 UNIT/ML CARTRIDGE SQ PRN ×2 (05:43→17:50)
[2019-04-26] MEDS: POLYVINYL ALCOHOL 15 ML BOTTLE EACHEYE SCH ×3 (05:43→17:50)
[2019-04-26] MEDS: OMEPRAZOLE DR 20 MG GT SCH (05:43)
[2019-04-26] MEDS: BLOOD SUGAR DIAGNOSTIC 1 EACH STRIP IN SCH ×2 (05:43→17:50)
[2019-04-26 07:32] VITALS: BP 118/76
[2019-04-26] MEDS: HYDROGEN PEROXIDE 480 ML BOTTLE TP SCH ×2 (08:24→21:47)
[2019-04-26] MEDS: DOCUSATE SODIUM LIQ 100 MG/10 ML UDC GT SCH ×2 (08:33→17:49)
[2019-04-26] MEDS: FERROUS SULFATE - FOR SA ONLY 330 MG/7.5 ML UDC GT SCH ×3 (08:33→17:50)
[2019-04-26] MEDS: METFORMIN 850 MG TABLET GT SCH ×2 (08:33→17:50)
[2019-04-26] MEDS: BACLOFEN (10 MG) 10 MG TABLET GT SCH ×2 (08:33→20:45)
[2019-04-26] MEDS: POTASSIUM CHLORIDE 20 MEQ/15 ML GT SCH (08:33)
[2019-04-26] MEDS: LEVETIRACETAM SOL (5 ML) 100 MG/ML UDC GT SCH ×2 (08:33→20:45)
[2019-04-26] MEDS: PROSTAT (PYXIS) 30 ML UDC GT SCH ×2 (08:34→17:50)
[2019-04-26] MEDS: ASCORBIC ACID 500 MG TABLET GT SCH ×2 (08:34→17:50)
[2019-04-26] MEDS: Z GUARD REMEDY 4 OZ OINT TP SCH ×2 (09:00→20:48)
[2019-04-26] MEDS: CLOTRIMAZOLE 1% 15 GM TUBE TP SCH ×2 (09:00→20:47)
[2019-04-26] MEDS: HEPARIN SODIUM, PORCINE 5000 UNITS/1 ML VIAL SQ SCH ×2 (09:00→20:47)
[2019-04-26] MEDS: LEVOFLOXACIN (500MG) 500 MG TABLET PO SCH (11:30)
--- NOTE | 2019-04-26 20:39 | NUR ---
RECEIVED TRACH PT ON [facility] VENT WITH NOTED SETTINGS. PT IS OBTUNDED. TRACH IS PATENT AND SECURED. SENIOR COMPLIANCE ANALYST DONE. Q6 BREATHING TX GIVEN WITH NO ADVERSE REACTION NOTED. SX DONE PRN. VENT PLUGGED INTO RED OUTLET. ALARMS ON AND AUDIBLE. AMBU BAG @ BEDSIDE. NO RESP DISTRESS AT THIS TIME. WILL CONT TO MONITOR PT.
[2019-04-26] MEDS: MULTIVIT W/MINERALS 1 TAB TABLET GT SCH (20:45)
[2019-04-26] MEDS: SENNOSIDES 8.6 MG TABLET GT SCH (22:26)
[2019-04-26] MEDS: [UNRECOGNIZED DRUG - OTHER] SQ SCH (22:27)
[2019-04-26] MEDS: BASAGLAR SQ SCH (22:27)
[2019-04-26 22:39] VITALS: BP 114/72
[2019-04-27] MEDS: POLYVINYL ALCOHOL 15 ML BOTTLE EACHEYE SCH ×4 (00:44→18:17)
[2019-04-27] MEDS: IPRATROPIUM NEB FS 0.5 MG/2.5 ML AMPUL.NEB NEB SCH ×4 (01:43→19:59)
[2019-04-27] MEDS: ALBUTEROL FS 2.5 MG/3 ML VIAL.NEB NEB SCH ×4 (01:43→19:59)
[2019-04-27] MEDS: INSULIN LISPRO/ASPART 100 UNIT/ML CARTRIDGE SQ PRN ×2 (05:51→18:18)
[2019-04-27] MEDS: BLOOD SUGAR DIAGNOSTIC 1 EACH STRIP IN SCH ×2 (05:51→18:17)
[2019-04-27] MEDS: GLUCERNA 1.2 1,000 ML BOTTLE GT PRN (05:51)
[2019-04-27] MEDS: OMEPRAZOLE DR 20 MG GT SCH (05:51)
[2019-04-27] MEDS: ACETYLCYSTEINE 10% SOLN 400 MG/4 ML VIAL NEB SCH ×3 (07:52→23:44)
[2019-04-27 07:57] VITALS: BP 116/65
[2019-04-27] MEDS: FERROUS SULFATE - FOR SA ONLY 330 MG/7.5 ML UDC GT SCH ×3 (08:49→16:38)
[2019-04-27] MEDS: METFORMIN 850 MG TABLET GT SCH ×2 (08:49→16:38)
[2019-04-27] MEDS: DOCUSATE SODIUM LIQ 100 MG/10 ML UDC GT SCH ×2 (08:49→16:38)
[2019-04-27] MEDS: LEVETIRACETAM SOL (5 ML) 100 MG/ML UDC GT SCH ×2 (08:49→21:08)
[2019-04-27] MEDS: BACLOFEN (10 MG) 10 MG TABLET GT SCH ×2 (08:49→21:09)
[2019-04-27] MEDS: ASCORBIC ACID 500 MG TABLET GT SCH ×2 (08:50→16:38)
[2019-04-27] MEDS: Z GUARD REMEDY 4 OZ OINT TP SCH ×2 (08:50→21:09)
[2019-04-27] MEDS: PROSTAT (PYXIS) 30 ML UDC GT SCH ×2 (08:50→16:38)
[2019-04-27] MEDS: CLOTRIMAZOLE 1% 15 GM TUBE TP SCH ×2 (08:50→21:09)
[2019-04-27] MEDS: POTASSIUM CHLORIDE 20 MEQ/15 ML GT SCH (08:50)
[2019-04-27] MEDS: HEPARIN SODIUM, PORCINE 5000 UNITS/1 ML VIAL SQ SCH ×2 (08:50→21:09)
[2019-04-27] MEDS: HYDROGEN PEROXIDE 480 ML BOTTLE TP SCH ×2 (09:14→21:34)
--- NOTE | 2019-04-27 18:11 | NUR ---
RT PATIENT WAS RECEIVED ON CONTINUOUS VENT SUPPORT ON NOTED VENT SETTINGS.ALARMS ARE SET AND AUDIBLE.AIRWAY PATENT AND SECURED. PATIENT STABLE AND TOLERATED CURRENT VENT SETTINGS.WILL CONTINUE TO MONITOR. Addendum: 04/27/19 at 1811 by EDNA JUNIOR RT Amended: Links added.
[2019-04-27 20:29] VITALS: BP 119/77
[2019-04-27] MEDS: MULTIVIT W/MINERALS 1 TAB TABLET GT SCH (21:09)
[2019-04-27] MEDS: SENNOSIDES 8.6 MG TABLET GT SCH (21:09)
[2019-04-27] MEDS: ACETAMINOPHEN 650 MG/20 ML UDC- SA PATIENTS-PAIN ONLY GT PRN (21:10)
[2019-04-27] MEDS: BASAGLAR SQ SCH (22:32)
[2019-04-27] MEDS: [UNRECOGNIZED DRUG - OTHER] SQ SCH (22:32)
[2019-04-28] MEDS: POLYVINYL ALCOHOL 15 ML BOTTLE EACHEYE SCH ×5 (00:32→23:02)
[2019-04-28] MEDS: ALBUTEROL FS 2.5 MG/3 ML VIAL.NEB NEB SCH ×5 (00:36→20:31)
[2019-04-28] MEDS: IPRATROPIUM NEB FS 0.5 MG/2.5 ML AMPUL.NEB NEB SCH ×4 (00:36→20:24)
[2019-04-28] MEDS: ACETYLCYSTEINE 10% SOLN 400 MG/4 ML VIAL NEB SCH ×3 (01:53→15:16)
[2019-04-28] MEDS: GLUCERNA 1.2 1,000 ML BOTTLE GT PRN (05:21)
[2019-04-28] MEDS: OMEPRAZOLE DR 20 MG GT SCH (05:21)
[2019-04-28] MEDS: BLOOD SUGAR DIAGNOSTIC 1 EACH STRIP IN SCH ×2 (05:37→18:09)
[2019-04-28] MEDS: INSULIN LISPRO/ASPART 100 UNIT/ML CARTRIDGE SQ PRN ×2 (05:37→18:13)
[2019-04-28 08:23] VITALS: BP 107/67
[2019-04-28] MEDS: METFORMIN 850 MG TABLET GT SCH ×2 (09:31→17:00)
[2019-04-28] MEDS: LEVETIRACETAM SOL (5 ML) 100 MG/ML UDC GT SCH ×2 (09:31→21:00)
[2019-04-28] MEDS: HEPARIN SODIUM, PORCINE 5000 UNITS/1 ML VIAL SQ SCH ×2 (09:31→21:00)
[2019-04-28] MEDS: PROSTAT (PYXIS) 30 ML UDC GT SCH ×2 (09:31→17:00)
[2019-04-28] MEDS: ASCORBIC ACID 500 MG TABLET GT SCH ×2 (09:31→17:00)
[2019-04-28] MEDS: FERROUS SULFATE - FOR SA ONLY 330 MG/7.5 ML UDC GT SCH ×3 (09:31→17:00)
[2019-04-28] MEDS: BACLOFEN (10 MG) 10 MG TABLET GT SCH ×2 (09:31→21:00)
[2019-04-28] MEDS: DOCUSATE SODIUM LIQ 100 MG/10 ML UDC GT SCH ×2 (09:31→17:00)
[2019-04-28] MEDS: POTASSIUM CHLORIDE 20 MEQ/15 ML GT SCH (09:31)
[2019-04-28] MEDS: Z GUARD REMEDY 4 OZ OINT TP SCH ×2 (09:32→21:00)
[2019-04-28] MEDS: CLOTRIMAZOLE 1% 15 GM TUBE TP SCH ×2 (09:32→21:00)
[2019-04-28] MEDS: HYDROGEN PEROXIDE 480 ML BOTTLE TP SCH ×2 (09:38→21:00)
--- NOTE | 2019-04-28 16:12 | NUR ---
RT NOTES TRACH TUBE IN PLACE, PATENT, AND SECURED WITH TRACH TIE. ALARMS ON AND AUDIBLE. VENT PLUGGED IN TO RED OUTLET. AMBU BAG AND BACK UP TRACH BY THE BEDSIDE. NO SIGNS OF RESP DISTRESS AT THIS TIME. Addendum: 04/28/19 at 1612 by ADOLFO LU RT Amended: Links added.
[2019-04-28 20:29] VITALS: BP_SYST 105; BP_SYST 129; BP_DIAS 65; BP_DIAS 80
--- NOTE | 2019-04-28 20:32 | NUR ---
ALB NOT GIVEN DUE TO INCREASED HR Addendum: 04/28/19 at 2 by PETER MARADIAGA RT Amended: Links added.
[2019-04-28] MEDS: MULTIVIT W/MINERALS 1 TAB TABLET GT SCH (21:00)
[2019-04-28] MEDS: SENNOSIDES 8.6 MG TABLET GT SCH (22:28)
[2019-04-28] MEDS: [UNRECOGNIZED DRUG - OTHER] SQ SCH (22:29)
[2019-04-28] MEDS: BASAGLAR SQ SCH (22:29)
--- NOTE | 2019-04-29 00:26 | NUR ---
Pt rec'd trached on [facility] vent on AC mode. No resp distress or sob noted. Pt sx'd for thick mod amt of pale yellow secretions. Trach is patent and secured. Alarms are set and audible. Vent plugged into red outlet. Ambu bag bedside. Will continue to monitor. Addendum: 04/29/19 at 0026 by PETER MARADIAGA RT Amended: Links added.
[2019-04-29] MEDS: ALBUTEROL FS 2.5 MG/3 ML VIAL.NEB NEB SCH ×4 (01:30→19:20)
[2019-04-29] MEDS: IPRATROPIUM NEB FS 0.5 MG/2.5 ML AMPUL.NEB NEB SCH ×4 (01:53→19:20)
[2019-04-29] MEDS: ACETAMINOPHEN 650 MG/20 ML UDC- SA PATIENTS-FEVER ONLY GT PRN (02:55)
[2019-04-29] MEDS: BLOOD SUGAR DIAGNOSTIC 1 EACH STRIP IN SCH ×2 (06:02→17:50)
[2019-04-29] MEDS: POLYVINYL ALCOHOL 15 ML BOTTLE EACHEYE SCH ×3 (06:02→17:50)
[2019-04-29] MEDS: OMEPRAZOLE DR 20 MG GT SCH (06:02)
[2019-04-29] MEDS: INSULIN LISPRO/ASPART 100 UNIT/ML CARTRIDGE SQ PRN ×2 (06:04→17:51)
--- NOTE | 2019-04-29 06:08 | NUR ---
PT HAD LOW GRADE FEVER AND INCREASED HEART RATE, GIVEN TYLENOL 650 MG VIA GT AND COOLING MEASURE INITIATED. TEMPERATURE OF NOW IS 98.4F AND HR 93. PATIENT HAD JUST COMPLETED LEVAQUIN AND HAD A CHEST XRAY ON 04/20/19
[2019-04-29 08:21] VITALS: BP 105/75
[2019-04-29] MEDS: ACETYLCYSTEINE 10% SOLN 400 MG/4 ML VIAL NEB SCH ×3 (08:21→23:30)
[2019-04-29] MEDS: PROSTAT (PYXIS) 30 ML UDC GT SCH ×2 (09:00→16:28)
[2019-04-29] MEDS: CLOTRIMAZOLE 1% 15 GM TUBE TP SCH ×2 (09:00→20:47)
[2019-04-29] MEDS: ASCORBIC ACID 500 MG TABLET GT SCH ×2 (09:00→16:28)
[2019-04-29] MEDS: HEPARIN SODIUM, PORCINE 5000 UNITS/1 ML VIAL SQ SCH ×2 (09:00→20:46)
[2019-04-29] MEDS: METFORMIN 850 MG TABLET GT SCH ×2 (09:00→16:28)
[2019-04-29] MEDS: DOCUSATE SODIUM LIQ 100 MG/10 ML UDC GT SCH ×2 (09:00→16:28)
[2019-04-29] MEDS: POTASSIUM CHLORIDE 20 MEQ/15 ML GT SCH (09:00)
[2019-04-29] MEDS: LEVETIRACETAM SOL (5 ML) 100 MG/ML UDC GT SCH ×2 (09:00→20:49)
[2019-04-29] MEDS: Z GUARD REMEDY 4 OZ OINT TP SCH ×2 (09:00→20:47)
[2019-04-29] MEDS: BACLOFEN (10 MG) 10 MG TABLET GT SCH ×2 (09:00→20:44)
[2019-04-29] MEDS: HYDROGEN PEROXIDE 480 ML BOTTLE TP SCH ×2 (09:00→21:00)
[2019-04-29] MEDS: FERROUS SULFATE - FOR SA ONLY 330 MG/7.5 ML UDC GT SCH ×3 (09:00→16:28)
[2019-04-29 20:31] VITALS: BP 102/70
[2019-04-29] MEDS: MULTIVIT W/MINERALS 1 TAB TABLET GT SCH (20:44)
[2019-04-29] MEDS: SENNOSIDES 8.6 MG TABLET GT SCH (21:42)
[2019-04-29] MEDS: [UNRECOGNIZED DRUG - OTHER] SQ SCH (21:43)
[2019-04-29] MEDS: BASAGLAR SQ SCH (21:43)
[2019-04-30] MEDS: POLYVINYL ALCOHOL 15 ML BOTTLE EACHEYE SCH ×5 (00:14→23:58)
[2019-04-30] MEDS: ALBUTEROL FS 2.5 MG/3 ML VIAL.NEB NEB SCH ×4 (01:23→19:08)
[2019-04-30] MEDS: IPRATROPIUM NEB FS 0.5 MG/2.5 ML AMPUL.NEB NEB SCH ×4 (01:23→19:08)
[2019-04-30] MEDS: GLUCERNA 1.2 1,000 ML BOTTLE GT PRN (03:58)
[2019-04-30] MEDS: BLOOD SUGAR DIAGNOSTIC 1 EACH STRIP IN SCH ×2 (05:17→18:14)
[2019-04-30] MEDS: OMEPRAZOLE DR 20 MG GT SCH (05:17)
[2019-04-30] MEDS: INSULIN LISPRO/ASPART 100 UNIT/ML CARTRIDGE SQ PRN ×2 (05:19→18:14)
[2019-04-30 07:49] VITALS: BP 99/70
[2019-04-30] MEDS: LEVETIRACETAM SOL (5 ML) 100 MG/ML UDC GT SCH ×2 (08:23→20:57)
[2019-04-30] MEDS: ASCORBIC ACID 500 MG TABLET GT SCH ×2 (08:23→16:17)
[2019-04-30] MEDS: DOCUSATE SODIUM LIQ 100 MG/10 ML UDC GT SCH ×2 (08:23→16:17)
[2019-04-30] MEDS: PROSTAT (PYXIS) 30 ML UDC GT SCH ×2 (08:23→16:17)
[2019-04-30] MEDS: METFORMIN 850 MG TABLET GT SCH ×2 (08:23→16:17)
[2019-04-30] MEDS: BACLOFEN (10 MG) 10 MG TABLET GT SCH ×2 (08:23→20:58)
[2019-04-30] MEDS: POTASSIUM CHLORIDE 20 MEQ/15 ML GT SCH (08:23)
[2019-04-30] MEDS: FERROUS SULFATE - FOR SA ONLY 330 MG/7.5 ML UDC GT SCH ×3 (08:23→16:17)
[2019-04-30] MEDS: HEPARIN SODIUM, PORCINE 5000 UNITS/1 ML VIAL SQ SCH ×2 (08:24→20:59)
[2019-04-30] MEDS: ACETYLCYSTEINE 10% SOLN 400 MG/4 ML VIAL NEB SCH ×3 (08:35→23:11)
[2019-04-30] MEDS: HYDROGEN PEROXIDE 480 ML BOTTLE TP SCH ×2 (08:35→19:08)
[2019-04-30] MEDS: CLOTRIMAZOLE 1% 15 GM TUBE TP SCH ×2 (09:00→21:00)
[2019-04-30] MEDS: Z GUARD REMEDY 4 OZ OINT TP SCH ×2 (09:00→21:01)
--- NOTE | 2019-04-30 11:12 | NUR ---
No adverse reaction to flu vaccine noted.
[2019-04-30 20:02] VITALS: BP 105/67
[2019-04-30] MEDS: MULTIVIT W/MINERALS 1 TAB TABLET GT SCH (20:58)
[2019-04-30] MEDS: SENNOSIDES 8.6 MG TABLET GT SCH (21:01)
[2019-04-30] MEDS: BASAGLAR SQ SCH (21:24)
[2019-04-30] MEDS: [UNRECOGNIZED DRUG - OTHER] SQ SCH (21:24)
[2019-05-01] MEDS: ACETYLCYSTEINE 10% SOLN 400 MG/4 ML VIAL NEB SCH ×2 (00:32→07:35)
[2019-05-01] MEDS: ALBUTEROL FS 2.5 MG/3 ML VIAL.NEB NEB SCH ×4 (01:56→20:16)
[2019-05-01] MEDS: IPRATROPIUM NEB FS 0.5 MG/2.5 ML AMPUL.NEB NEB SCH ×4 (01:56→20:16)
[2019-05-01] MEDS: GLUCERNA 1.2 1,000 ML BOTTLE GT PRN (03:47)
--- NOTE | 2019-05-01 04:32 | NUR ---
PATIENT RECEIVED ON TRACH TO VENT WITH SETTINGS OF AC 12, 500 VT, 30%, +5. SUCTIONED WITH LAVAGE FOR MINIMAL, THIN, YELLOW SECRETIONS. GIVEN IN-LINE TREATMENTS WITH NO ADVERSE REACTIONS. AMBU BAG AT BEDSIDE. VENT ALARM AUDIBLE AND VISIBLE. VENT PLUGGED INTO RED OUTLET. Addendum: 05/01/19 at 0432 by WHITNEY KLEIN RT Amended: Links added.
[2019-05-01] MEDS: INSULIN LISPRO/ASPART 100 UNIT/ML CARTRIDGE SQ PRN ×2 (05:22→17:31)
[2019-05-01] MEDS: BLOOD SUGAR DIAGNOSTIC 1 EACH STRIP IN SCH ×2 (05:22→17:30)
[2019-05-01] MEDS: OMEPRAZOLE DR 20 MG GT SCH (05:22)
[2019-05-01] MEDS: POLYVINYL ALCOHOL 15 ML BOTTLE EACHEYE SCH ×3 (05:22→17:30)
[2019-05-01] MEDS: FERROUS SULFATE - FOR SA ONLY 330 MG/7.5 ML UDC GT SCH ×3 (09:00→16:28)
[2019-05-01] MEDS: CLOTRIMAZOLE 1% 15 GM TUBE TP SCH ×2 (09:00→21:22)
[2019-05-01] MEDS: Z GUARD REMEDY 4 OZ OINT TP SCH ×2 (09:00→21:23)
[2019-05-01] MEDS: DOCUSATE SODIUM LIQ 100 MG/10 ML UDC GT SCH ×2 (09:00→16:28)
[2019-05-01] MEDS: ASCORBIC ACID 500 MG TABLET GT SCH ×2 (09:01→16:28)
[2019-05-01] MEDS: HEPARIN SODIUM, PORCINE 5000 UNITS/1 ML VIAL SQ SCH ×2 (09:01→21:22)
[2019-05-01] MEDS: BACLOFEN (10 MG) 10 MG TABLET GT SCH ×2 (09:01→21:22)
[2019-05-01] MEDS: LEVETIRACETAM SOL (5 ML) 100 MG/ML UDC GT SCH ×2 (09:01→21:22)
[2019-05-01] MEDS: METFORMIN 850 MG TABLET GT SCH ×2 (09:01→16:28)
[2019-05-01] MEDS: PROSTAT (PYXIS) 30 ML UDC GT SCH ×2 (09:01→16:28)
[2019-05-01] MEDS: POTASSIUM CHLORIDE 20 MEQ/15 ML GT SCH (09:01)
[2019-05-01] MEDS: HYDROGEN PEROXIDE 480 ML BOTTLE TP SCH ×2 (09:20→20:16)
[2019-05-01 11:55] VITALS: BP 92/65
--- NOTE | 2019-05-01 18:44 | NUR ---
RT NOTE CIRCUIT WAS NOT CHANGED, OUT OF STOCK. Addendum: 05/01/19 at 1844 by BRANT GARCIA RT Amended: Links added.
[2019-05-01 20:14] VITALS: BP 111/79
--- NOTE | 2019-05-01 20:16 | NUR ---
RT NOTE: RECEIVED TRACH PT ON [facility] VENT ON NOTED SETTINGS PER MD ORDERS. TRACH IS PATENT AND SECURED. TRACH CARE DONE. MEDICAL STAFF MANAGER DONE. Q6 BREATHING TX GIVEN WITH NO ADVERSE REACTION NOTED. SX DONE PRN. VENT PLUGGED INTO RED OUTLET. ALARMS ON AND AUDIBLE. ROSSYU BAG @ BEDSIDE. NO RESP DISTRESS AT THIS TIME. WILL CONT TO MONITOR PT. Addendum: 05/02/19 at 0250 by SHE BYRNE RT Amended: Links added.
[2019-05-01] MEDS: MULTIVIT W/MINERALS 1 TAB TABLET GT SCH (21:22)
[2019-05-01] MEDS: [UNRECOGNIZED DRUG - OTHER] SQ SCH (21:23)
[2019-05-01] MEDS: SENNOSIDES 8.6 MG TABLET GT SCH (21:23)
[2019-05-01] MEDS: BASAGLAR SQ SCH (21:23)
[2019-05-02] MEDS: POLYVINYL ALCOHOL 15 ML BOTTLE EACHEYE SCH ×4 (00:31→17:37)
[2019-05-02] MEDS: ALBUTEROL FS 2.5 MG/3 ML VIAL.NEB NEB SCH ×4 (00:32→19:19)
[2019-05-02] MEDS: IPRATROPIUM NEB FS 0.5 MG/2.5 ML AMPUL.NEB NEB SCH ×4 (00:32→19:19)
[2019-05-02] MEDS: GLUCERNA 1.2 1,000 ML BOTTLE GT PRN (04:52)
[2019-05-02] MEDS: BLOOD SUGAR DIAGNOSTIC 1 EACH STRIP IN SCH ×2 (06:09→17:37)
[2019-05-02] MEDS: OMEPRAZOLE DR 20 MG GT SCH (06:09)
[2019-05-02] MEDS: INSULIN LISPRO/ASPART 100 UNIT/ML CARTRIDGE SQ PRN ×2 (06:10→17:38)
[2019-05-02 07:45] VITALS: BP 112/77
[2019-05-02] MEDS: HYDROGEN PEROXIDE 480 ML BOTTLE TP SCH ×2 (08:09→21:00)
[2019-05-02] MEDS: ACETYLCYSTEINE 10% SOLN 400 MG/4 ML VIAL NEB SCH ×3 (08:09→23:30)
[2019-05-02] MEDS: PROSTAT (PYXIS) 30 ML UDC GT SCH ×2 (09:10→17:37)
[2019-05-02] MEDS: BACLOFEN (10 MG) 10 MG TABLET GT SCH ×2 (09:10→21:17)
[2019-05-02] MEDS: LEVETIRACETAM SOL (5 ML) 100 MG/ML UDC GT SCH ×2 (09:10→21:17)
[2019-05-02] MEDS: METFORMIN 850 MG TABLET GT SCH ×2 (09:10→17:37)
[2019-05-02] MEDS: CLOTRIMAZOLE 1% 15 GM TUBE TP SCH ×2 (09:10→21:18)
[2019-05-02] MEDS: FERROUS SULFATE - FOR SA ONLY 330 MG/7.5 ML UDC GT SCH ×3 (09:10→17:37)
[2019-05-02] MEDS: POTASSIUM CHLORIDE 20 MEQ/15 ML GT SCH (09:10)
[2019-05-02] MEDS: ASCORBIC ACID 500 MG TABLET GT SCH ×2 (09:10→17:37)
[2019-05-02] MEDS: Z GUARD REMEDY 4 OZ OINT TP SCH ×2 (09:10→21:18)
[2019-05-02] MEDS: DOCUSATE SODIUM LIQ 100 MG/10 ML UDC GT SCH ×2 (09:10→17:37)
[2019-05-02] MEDS: HEPARIN SODIUM, PORCINE 5000 UNITS/1 ML VIAL SQ SCH ×2 (09:10→21:17)
[2019-05-02 20:03] VITALS: BP 109/60
[2019-05-02] MEDS: MULTIVIT W/MINERALS 1 TAB TABLET GT SCH (21:17)
[2019-05-02] MEDS: SENNOSIDES 8.6 MG TABLET GT SCH (21:18)
[2019-05-02] MEDS: BASAGLAR SQ SCH (22:00)
[2019-05-02] MEDS: [UNRECOGNIZED DRUG - OTHER] SQ SCH (22:00)
[2019-05-03] MEDS: IPRATROPIUM NEB FS 0.5 MG/2.5 ML AMPUL.NEB NEB SCH ×4 (01:16→23:37)
[2019-05-03] MEDS: ALBUTEROL FS 2.5 MG/3 ML VIAL.NEB NEB SCH ×4 (01:16→23:37)
[2019-05-03] MEDS: GLUCERNA 1.2 1,000 ML BOTTLE GT PRN (05:21)
[2019-05-03] MEDS: POLYVINYL ALCOHOL 15 ML BOTTLE EACHEYE SCH ×4 (05:21→17:10)
[2019-05-03] MEDS: BLOOD SUGAR DIAGNOSTIC 1 EACH STRIP IN SCH ×2 (05:21→17:51)
[2019-05-03] MEDS: OMEPRAZOLE DR 20 MG GT SCH (05:21)
[2019-05-03] MEDS: INSULIN LISPRO/ASPART 100 UNIT/ML CARTRIDGE SQ PRN (05:37)
[2019-05-03 07:41] VITALS: BP 107/67
[2019-05-03] MEDS: ACETYLCYSTEINE 10% SOLN 400 MG/4 ML VIAL NEB SCH ×3 (08:29→23:37)
[2019-05-03] MEDS: HYDROGEN PEROXIDE 480 ML BOTTLE TP SCH ×2 (08:30→20:24)
[2019-05-03] MEDS: PROSTAT (PYXIS) 30 ML UDC GT SCH ×2 (09:40→17:10)
[2019-05-03] MEDS: HEPARIN SODIUM, PORCINE 5000 UNITS/1 ML VIAL SQ SCH ×2 (09:40→21:00)
[2019-05-03] MEDS: POTASSIUM CHLORIDE 20 MEQ/15 ML GT SCH (09:40)
[2019-05-03] MEDS: FERROUS SULFATE - FOR SA ONLY 330 MG/7.5 ML UDC GT SCH ×3 (09:40→17:10)
[2019-05-03] MEDS: Z GUARD REMEDY 4 OZ OINT TP SCH ×3 (09:40→21:00)
[2019-05-03] MEDS: METFORMIN 850 MG TABLET GT SCH ×2 (09:40→17:10)
[2019-05-03] MEDS: ASCORBIC ACID 500 MG TABLET GT SCH ×2 (09:40→17:10)
[2019-05-03] MEDS: BACLOFEN (10 MG) 10 MG TABLET GT SCH ×2 (09:40→21:00)
[2019-05-03] MEDS: LEVETIRACETAM SOL (5 ML) 100 MG/ML UDC GT SCH ×2 (09:40→21:00)
[2019-05-03] MEDS: DOCUSATE SODIUM LIQ 100 MG/10 ML UDC GT SCH ×2 (09:40→17:10)
--- NOTE | 2019-05-03 17:05 | NUR ---
PT. RECVD. ON MECHANICAL VENT. WITH NOTED SETTINGS. VENT IS PLUGGED TO RED OUTLET AND ALARMS ARE SET AND AUDIBLE. TRACH IS PATENT AND SECURED AND SPARE TRACH WITH BMV AT BEDSIDE. PT. HAS EQUAL CHEST RISE AND BILATERAL COARSE BREATH SOUNDS. SX. MODERATE AMOUNT OF THICK GREEN SECRETIONS T/O THE DAY AND PATIENT TOLERATED BREATHING TX'S. WELL. NO SOB NOTED. WILL PASS REPORT TO STOREPERSON. Addendum: 05/03/19 at 1705 by BRANT GARCIA RT Amended: Links added.
[2019-05-03 19:59] VITALS: BP 102/69
--- NOTE | 2019-05-03 20:24 | NUR ---
Seen and examined by Mya Rodgers CRUMB PACKER,with new orders to increase frequency of Albuterol and Atrovent HHN to every 4 hours and continue Mucomyst HHN d/t to increased secretions.Will carry out orders.
[2019-05-03] MEDS: MULTIVIT W/MINERALS 1 TAB TABLET GT SCH (21:00)
[2019-05-03] MEDS: CLOTRIMAZOLE 1% 15 GM TUBE TP SCH (21:00)
[2019-05-03] MEDS: SENNOSIDES 8.6 MG TABLET GT SCH (22:17)
[2019-05-03] MEDS: [UNRECOGNIZED DRUG - OTHER] SQ SCH (22:38)
[2019-05-03] MEDS: BASAGLAR SQ SCH (22:38)
[2019-05-04] MEDS: POLYVINYL ALCOHOL 15 ML BOTTLE EACHEYE SCH ×5 (00:55→23:53)
--- NOTE | 2019-05-04 01:44 | NUR ---
PT RCVD LORNA'D ON MECHANICAL VENT WITH CHARTED SETTINGS. SX DONE. PT TRACH IS PATENT AND SECURE. VENT ALARMS APPEAR TO BE FUNCTIONING PROPERLY. VENT PLUGGED INTO RED OUTLET. AMBU BAG AT BEDSIDE. Addendum: 05/04/19 at 0145 by CHAGO HOLMAN RT Amended: Links added.
[2019-05-04] MEDS: ALBUTEROL FS 2.5 MG/3 ML VIAL.NEB NEB SCH ×6 (03:16→23:30)
[2019-05-04] MEDS: IPRATROPIUM NEB FS 0.5 MG/2.5 ML AMPUL.NEB NEB SCH ×6 (03:16→23:30)
[2019-05-04] MEDS: OMEPRAZOLE DR 20 MG GT SCH (06:30)
[2019-05-04] MEDS: GLUCERNA 1.2 1,000 ML BOTTLE GT PRN (06:31)
[2019-05-04] MEDS: BLOOD SUGAR DIAGNOSTIC 1 EACH STRIP IN SCH ×2 (06:33→17:34)
[2019-05-04] MEDS: INSULIN LISPRO/ASPART 100 UNIT/ML CARTRIDGE SQ PRN ×2 (06:34→17:35)
[2019-05-04 07:56] VITALS: BP 99/65
[2019-05-04] MEDS: ACETYLCYSTEINE 10% SOLN 400 MG/4 ML VIAL NEB SCH ×3 (07:58→23:30)
[2019-05-04] MEDS: HYDROGEN PEROXIDE 480 ML BOTTLE TP SCH ×2 (09:14→19:58)
[2019-05-04] MEDS: DOCUSATE SODIUM LIQ 100 MG/10 ML UDC GT SCH ×2 (09:51→17:33)
[2019-05-04] MEDS: FERROUS SULFATE - FOR SA ONLY 330 MG/7.5 ML UDC GT SCH ×3 (09:51→17:33)
[2019-05-04] MEDS: METFORMIN 850 MG TABLET GT SCH ×2 (09:51→17:33)
[2019-05-04] MEDS: CLOTRIMAZOLE 1% 15 GM TUBE TP SCH ×2 (09:52→20:14)
[2019-05-04] MEDS: BACLOFEN (10 MG) 10 MG TABLET GT SCH ×2 (09:52→20:14)
[2019-05-04] MEDS: Z GUARD REMEDY 4 OZ OINT TP SCH ×4 (09:52→20:15)
[2019-05-04] MEDS: LEVETIRACETAM SOL (5 ML) 100 MG/ML UDC GT SCH ×2 (09:52→20:14)
[2019-05-04] MEDS: ASCORBIC ACID 500 MG TABLET GT SCH ×2 (09:52→17:33)
[2019-05-04] MEDS: PROSTAT (PYXIS) 30 ML UDC GT SCH ×2 (09:52→17:33)
[2019-05-04] MEDS: POTASSIUM CHLORIDE 20 MEQ/15 ML GT SCH (09:52)
[2019-05-04] MEDS: HEPARIN SODIUM, PORCINE 5000 UNITS/1 ML VIAL SQ SCH ×2 (09:52→20:14)
--- NOTE | 2019-05-04 16:46 | NUR ---
RT Patient remained on continuous vent support on noted settings.Breathing treatment was given . Airway patent and secured. Patient stable throughout the shift. Will continue to monitor. Addendum: 05/04/19 at 1648 by EDNA JUNIOR RT Amended: Links added.
[2019-05-04 20:00] VITALS: BP 100/72
--- NOTE | 2019-05-04 20:00 | NUR ---
RT NOTE RECEIVED PT WITH THE NOTED VENT SETTING. PT TUTU. VENT WELL AND INLINE NEB TX WELL. NO RESP. DISTRESS NOTED. WILL CONTINUE TO MONITOR. Addendum: 05/05/19 at 0526 by JEAN PIERRE HORTON RT Amended: Links added.
[2019-05-04 20:09] VITALS: BP 112/80
[2019-05-04] MEDS: MULTIVIT W/MINERALS 1 TAB TABLET GT SCH (20:14)
[2019-05-04] MEDS: SENNOSIDES 8.6 MG TABLET GT SCH (21:17)
[2019-05-04] MEDS: [UNRECOGNIZED DRUG - OTHER] SQ SCH (21:27)
[2019-05-04] MEDS: BASAGLAR SQ SCH (21:27)
[2019-05-05] MEDS: IPRATROPIUM NEB FS 0.5 MG/2.5 ML AMPUL.NEB NEB SCH ×6 (03:14→23:36)
[2019-05-05] MEDS: ALBUTEROL FS 2.5 MG/3 ML VIAL.NEB NEB SCH ×6 (03:15→23:37)
[2019-05-05] MEDS: BLOOD SUGAR DIAGNOSTIC 1 EACH STRIP IN SCH ×2 (05:39→17:49)
[2019-05-05] MEDS: OMEPRAZOLE DR 20 MG GT SCH (05:39)
[2019-05-05] MEDS: POLYVINYL ALCOHOL 15 ML BOTTLE EACHEYE SCH ×4 (05:39→23:51)
[2019-05-05] MEDS: INSULIN LISPRO/ASPART 100 UNIT/ML CARTRIDGE SQ PRN ×2 (05:40→17:50)
[2019-05-05] MEDS: GLUCERNA 1.2 1,000 ML BOTTLE GT PRN (06:00)
[2019-05-05 07:35] VITALS: BP 111/68
[2019-05-05] MEDS: ACETYLCYSTEINE 10% SOLN 400 MG/4 ML VIAL NEB SCH ×3 (08:25→23:36)
[2019-05-05] MEDS: BACLOFEN (10 MG) 10 MG TABLET GT SCH ×2 (08:44→20:24)
[2019-05-05] MEDS: DOCUSATE SODIUM LIQ 100 MG/10 ML UDC GT SCH ×2 (08:44→17:49)
[2019-05-05] MEDS: POTASSIUM CHLORIDE 20 MEQ/15 ML GT SCH (08:44)
[2019-05-05] MEDS: LEVETIRACETAM SOL (5 ML) 100 MG/ML UDC GT SCH ×2 (08:44→20:24)
[2019-05-05] MEDS: FERROUS SULFATE - FOR SA ONLY 330 MG/7.5 ML UDC GT SCH ×3 (08:44→17:49)
[2019-05-05] MEDS: METFORMIN 850 MG TABLET GT SCH ×2 (08:44→17:49)
[2019-05-05] MEDS: PROSTAT (PYXIS) 30 ML UDC GT SCH ×2 (08:44→17:49)
[2019-05-05] MEDS: ASCORBIC ACID 500 MG TABLET GT SCH ×2 (08:45→17:49)
[2019-05-05] MEDS: HEPARIN SODIUM, PORCINE 5000 UNITS/1 ML VIAL SQ SCH ×2 (08:45→21:15)
[2019-05-05] MEDS: CLOTRIMAZOLE 1% 15 GM TUBE TP SCH ×2 (08:46→20:24)
[2019-05-05] MEDS: Z GUARD REMEDY 4 OZ OINT TP SCH ×4 (08:46→20:25)
[2019-05-05] MEDS: HYDROGEN PEROXIDE 480 ML BOTTLE TP SCH ×2 (09:43→20:24)
--- NOTE | 2019-05-05 10:06 | NUR ---
RT NOTE PT RECEIVED TRACHED ON MECHANICAL VENTILATION. AMBU BAG/BACK UP TRACH @ BEDSIDE. TX GIVEN, NO ADVERSE REACTIONS NOTED. SX DONE, TRACH SECURED AND PATENT. ALARMS ON AND AUDIBLE. NO SOB NOTED. Addendum: 05/05/19 at 1007 by ABIOLA COMBS RT Amended: Links added.
[2019-05-05 20:03] VITALS: BP 100/72
[2019-05-05] MEDS: MULTIVIT W/MINERALS 1 TAB TABLET GT SCH (20:24)
[2019-05-05] MEDS: SENNOSIDES 8.6 MG TABLET GT SCH (22:10)
[2019-05-05] MEDS: [UNRECOGNIZED DRUG - OTHER] SQ SCH (22:18)
[2019-05-05] MEDS: BASAGLAR SQ SCH (22:18)
[2019-05-06] MEDS: ALBUTEROL FS 2.5 MG/3 ML VIAL.NEB NEB SCH ×6 (03:28→23:30)
[2019-05-06] MEDS: IPRATROPIUM NEB FS 0.5 MG/2.5 ML AMPUL.NEB NEB SCH ×6 (03:28→22:54)
--- NOTE | 2019-05-06 03:52 | NUR ---
RT Patient remained on continuous vent support on noted settings.Breathing treatment was given . Airway patent and secured. Patient stable throughout the shift. Will continue to monitor. Addendum: 05/06/19 at 0352 by EDNA JUNIOR RT Amended: Links added.
[2019-05-06] MEDS: ACETAMINOPHEN 650 MG/20 ML UDC- SA PATIENTS-PAIN ONLY GT PRN (03:59)
--- NOTE | 2019-05-06 03:59 | NUR ---
subacute/rn RESIDENT WITH SOME GRIMACE AND GUARDING , TYLENOL 650 MG VIA GTUBE WAS GIVEN.MONITOING FOR RELIEF OF DISCOMFORT.
[2019-05-06] MEDS: OMEPRAZOLE DR 20 MG GT SCH (05:24)
[2019-05-06] MEDS: POLYVINYL ALCOHOL 15 ML BOTTLE EACHEYE SCH ×3 (05:24→17:26)
[2019-05-06] MEDS: BLOOD SUGAR DIAGNOSTIC 1 EACH STRIP IN SCH ×2 (05:39→17:30)
[2019-05-06] MEDS: INSULIN LISPRO/ASPART 100 UNIT/ML CARTRIDGE SQ PRN ×2 (05:52→17:31)
[2019-05-06] MEDS: ACETYLCYSTEINE 10% SOLN 400 MG/4 ML VIAL NEB SCH ×3 (07:54→22:54)
[2019-05-06 08:05] VITALS: BP 128/71
[2019-05-06] MEDS: FERROUS SULFATE - FOR SA ONLY 330 MG/7.5 ML UDC GT SCH ×3 (09:18→17:26)
[2019-05-06] MEDS: BACLOFEN (10 MG) 10 MG TABLET GT SCH ×2 (09:18→20:16)
[2019-05-06] MEDS: DOCUSATE SODIUM LIQ 100 MG/10 ML UDC GT SCH ×2 (09:18→17:26)
[2019-05-06] MEDS: METFORMIN 850 MG TABLET GT SCH ×2 (09:18→17:26)
[2019-05-06] MEDS: LEVETIRACETAM SOL (5 ML) 100 MG/ML UDC GT SCH ×2 (09:18→20:16)
[2019-05-06] MEDS: PROSTAT (PYXIS) 30 ML UDC GT SCH ×2 (09:18→17:26)
[2019-05-06] MEDS: POTASSIUM CHLORIDE 20 MEQ/15 ML GT SCH (09:18)
[2019-05-06] MEDS: ASCORBIC ACID 500 MG TABLET GT SCH ×2 (09:19→17:26)
[2019-05-06] MEDS: Z GUARD REMEDY 4 OZ OINT TP SCH ×4 (09:22→20:19)
[2019-05-06] MEDS: HEPARIN SODIUM, PORCINE 5000 UNITS/1 ML VIAL SQ SCH ×2 (09:22→20:18)
[2019-05-06] MEDS: CLOTRIMAZOLE 1% 15 GM TUBE TP SCH ×2 (09:22→20:19)
[2019-05-06] MEDS: HYDROGEN PEROXIDE 480 ML BOTTLE TP SCH ×2 (09:41→20:06)
--- NOTE | 2019-05-06 09:45 | NUR ---
Dr. Dsouza seen and examined resident, reported that she has episodes of tachypnea, ordered CXR to be done today, request sent to lab. Afebrile. Will continue to monitor.
--- NOTE | 2019-05-06 16:00 | NUR ---
Relayed CXR result to Dr. Dsouza, no new order given.
--- NOTE | 2019-05-06 20:05 | NUR ---
RT NOTE RECEIVED PT WITH THE NOTED CONDITION AND VENT SETTING IN CO583-9. PT TUTU. VENT AND TX WELL. WILL CONTINUE WITH THE CURRENT PLAN OF CARE. Addendum: 05/07/19 at 0230 by JEAN PIERRE HORTON RT Amended: Links added.
[2019-05-06] MEDS: MULTIVIT W/MINERALS 1 TAB TABLET GT SCH (20:17)
[2019-05-06 20:21] VITALS: BP 107/73
[2019-05-06] MEDS: SENNOSIDES 8.6 MG TABLET GT SCH (21:51)
[2019-05-06] MEDS: BASAGLAR SQ SCH (21:52)
[2019-05-06] MEDS: [UNRECOGNIZED DRUG - OTHER] SQ SCH (21:52)
[2019-05-07] MEDS: POLYVINYL ALCOHOL 15 ML BOTTLE EACHEYE SCH ×4 (00:06→18:55)
[2019-05-07] MEDS: IPRATROPIUM NEB FS 0.5 MG/2.5 ML AMPUL.NEB NEB SCH ×6 (02:41→23:30)
[2019-05-07] MEDS: ALBUTEROL FS 2.5 MG/3 ML VIAL.NEB NEB SCH ×6 (02:42→23:30)
[2019-05-07] MEDS: GLUCERNA 1.2 1,000 ML BOTTLE GT PRN (05:19)
[2019-05-07] MEDS: OMEPRAZOLE DR 20 MG GT SCH (05:19)
[2019-05-07] MEDS: BLOOD SUGAR DIAGNOSTIC 1 EACH STRIP IN SCH ×2 (05:20→18:55)
[2019-05-07] MEDS: INSULIN LISPRO/ASPART 100 UNIT/ML CARTRIDGE SQ PRN ×2 (05:22→18:56)
[2019-05-07] MEDS: ACETYLCYSTEINE 10% SOLN 400 MG/4 ML VIAL NEB SCH ×3 (07:55→23:30)
[2019-05-07] MEDS: POTASSIUM CHLORIDE 20 MEQ/15 ML GT SCH (09:00)
[2019-05-07] MEDS: ASCORBIC ACID 500 MG TABLET GT SCH ×2 (09:00→17:00)
[2019-05-07] MEDS: LEVETIRACETAM SOL (5 ML) 100 MG/ML UDC GT SCH ×2 (09:00→20:25)
[2019-05-07] MEDS: BACLOFEN (10 MG) 10 MG TABLET GT SCH ×2 (09:00→20:26)
[2019-05-07] MEDS: HYDROGEN PEROXIDE 480 ML BOTTLE TP SCH ×2 (09:00→21:00)
[2019-05-07] MEDS: METFORMIN 850 MG TABLET GT SCH ×2 (09:00→17:00)
[2019-05-07] MEDS: DOCUSATE SODIUM LIQ 100 MG/10 ML UDC GT SCH ×2 (09:00→17:00)
[2019-05-07] MEDS: FERROUS SULFATE - FOR SA ONLY 330 MG/7.5 ML UDC GT SCH ×3 (09:00→17:00)
[2019-05-07] MEDS: CLOTRIMAZOLE 1% 15 GM TUBE TP SCH ×2 (09:00→20:26)
[2019-05-07] MEDS: Z GUARD REMEDY 4 OZ OINT TP SCH ×4 (09:00→20:27)
[2019-05-07] MEDS: PROSTAT (PYXIS) 30 ML UDC GT SCH ×2 (09:00→17:00)
[2019-05-07] MEDS: HEPARIN SODIUM, PORCINE 5000 UNITS/1 ML VIAL SQ SCH ×2 (09:00→20:24)
[2019-05-07 09:04] VITALS: BP 104/64
--- NOTE | 2019-05-07 10:42 | NUR ---
WOUND CARE CONSULT: PT PRESENTS WITH RESOLVING RASH AND NOTED TO HAVE INCONTINENCE ASSOCIATED SKIN DAMAGE TO GLUTEAL CREASE AND INNER BUTTOCKS. PT IS INCONTINENT OF URINE AND STOOL. RECOMMENDATIONS MADE FOR SKIN PROTECTION. DISCUSSED WITH NURSING STAFF. CONCUR WITH CURRENT ORDERS FOR LOTRIMIN/ZGUARD AND COVER WITH MEPILEX. SKIN TO BE KEPT CLEAN AND DRY. WILL SEE PRN. IN AGREEMENT WITH PLAN OF CARE.
--- NOTE | 2019-05-07 16:22 | NUR ---
ERVIN communicated to family that the Interdisciplinary Plan of Care Conference will be taking place this 05/11/19. Patients sister Tosin Horvath,[phone] stated that she would be in attendance. Noted.
[2019-05-07 20:21] VITALS: BP 104/70
[2019-05-07] MEDS: MULTIVIT W/MINERALS 1 TAB TABLET GT SCH (20:26)
[2019-05-07] MEDS: SENNOSIDES 8.6 MG TABLET GT SCH (21:44)
[2019-05-07] MEDS: BASAGLAR SQ SCH (21:45)
[2019-05-07] MEDS: [UNRECOGNIZED DRUG - OTHER] SQ SCH (21:45)
[2019-05-08] MEDS: POLYVINYL ALCOHOL 15 ML BOTTLE EACHEYE SCH ×4 (00:29→17:32)
[2019-05-08] MEDS: ALBUTEROL FS 2.5 MG/3 ML VIAL.NEB NEB SCH ×6 (03:30→23:30)
[2019-05-08] MEDS: IPRATROPIUM NEB FS 0.5 MG/2.5 ML AMPUL.NEB NEB SCH ×6 (03:30→23:30)
[2019-05-08] MEDS: GLUCERNA 1.2 1,000 ML BOTTLE GT PRN (04:01)
[2019-05-08] MEDS: OMEPRAZOLE DR 20 MG GT SCH (05:38)
[2019-05-08] MEDS: BLOOD SUGAR DIAGNOSTIC 1 EACH STRIP IN SCH ×2 (05:38→17:32)
[2019-05-08] MEDS: INSULIN LISPRO/ASPART 100 UNIT/ML CARTRIDGE SQ PRN ×2 (05:40→17:34)
[2019-05-08] MEDS: POTASSIUM CHLORIDE 20 MEQ/15 ML GT SCH (08:11)
[2019-05-08] MEDS: METFORMIN 850 MG TABLET GT SCH ×2 (08:11→16:08)
[2019-05-08] MEDS: PROSTAT (PYXIS) 30 ML UDC GT SCH ×2 (08:11→16:08)
[2019-05-08] MEDS: ASCORBIC ACID 500 MG TABLET GT SCH ×2 (08:11→16:08)
[2019-05-08] MEDS: LEVETIRACETAM SOL (5 ML) 100 MG/ML UDC GT SCH ×2 (08:11→20:53)
[2019-05-08] MEDS: DOCUSATE SODIUM LIQ 100 MG/10 ML UDC GT SCH ×2 (08:11→16:08)
[2019-05-08] MEDS: BACLOFEN (10 MG) 10 MG TABLET GT SCH ×2 (08:11→20:54)
[2019-05-08] MEDS: FERROUS SULFATE - FOR SA ONLY 330 MG/7.5 ML UDC GT SCH ×3 (08:11→16:08)
[2019-05-08] MEDS: HEPARIN SODIUM, PORCINE 5000 UNITS/1 ML VIAL SQ SCH ×2 (08:13→20:57)
[2019-05-08] MEDS: ACETYLCYSTEINE 10% SOLN 400 MG/4 ML VIAL NEB SCH ×3 (08:19→23:30)
[2019-05-08] MEDS: HYDROGEN PEROXIDE 480 ML BOTTLE TP SCH ×2 (09:00→21:00)
[2019-05-08] MEDS: CLOTRIMAZOLE 1% 15 GM TUBE TP SCH ×2 (09:00→20:57)
[2019-05-08] MEDS: Z GUARD REMEDY 4 OZ OINT TP SCH ×4 (09:00→20:57)
[2019-05-08 10:53] VITALS: BP 106/67
[2019-05-08 20:07] VITALS: BP 112/76
[2019-05-08] MEDS: MULTIVIT W/MINERALS 1 TAB TABLET GT SCH (20:54)
[2019-05-08] MEDS: SENNOSIDES 8.6 MG TABLET GT SCH (21:35)
[2019-05-08] MEDS: [UNRECOGNIZED DRUG - OTHER] SQ SCH (21:36)
[2019-05-08] MEDS: BASAGLAR SQ SCH (21:36)
[2019-05-09] MEDS ORDERED: ZOSYN IVPB 3.375 G in IV D5W 50ml IV ONE ×2
[2019-05-09] MEDS: POLYVINYL ALCOHOL 15 ML BOTTLE EACHEYE SCH ×5 (00:34→23:40)
[2019-05-09] MEDS: ALBUTEROL FS 2.5 MG/3 ML VIAL.NEB NEB SCH ×6 (03:06→23:30)
[2019-05-09] MEDS: IPRATROPIUM NEB FS 0.5 MG/2.5 ML AMPUL.NEB NEB SCH ×6 (03:06→23:30)
[2019-05-09] MEDS: GLUCERNA 1.2 1,000 ML BOTTLE GT PRN (04:14)
[2019-05-09] MEDS: BLOOD SUGAR DIAGNOSTIC 1 EACH STRIP IN SCH ×2 (05:47→18:11)
[2019-05-09] MEDS: OMEPRAZOLE DR 20 MG GT SCH (05:47)
[2019-05-09] MEDS: INSULIN LISPRO/ASPART 100 UNIT/ML CARTRIDGE SQ PRN ×2 (05:49→18:12)
[2019-05-09 07:32] VITALS: BP 119/73
[2019-05-09] MEDS: DOCUSATE SODIUM LIQ 100 MG/10 ML UDC GT SCH ×2 (08:07→16:41)
[2019-05-09] MEDS: BACLOFEN (10 MG) 10 MG TABLET GT SCH ×2 (08:07→20:30)
[2019-05-09] MEDS: PROSTAT (PYXIS) 30 ML UDC GT SCH ×2 (08:07→16:41)
[2019-05-09] MEDS: POTASSIUM CHLORIDE 20 MEQ/15 ML GT SCH (08:07)
[2019-05-09] MEDS: ASCORBIC ACID 500 MG TABLET GT SCH ×2 (08:07→16:41)
[2019-05-09] MEDS: LEVETIRACETAM SOL (5 ML) 100 MG/ML UDC GT SCH ×2 (08:07→20:30)
[2019-05-09] MEDS: FERROUS SULFATE - FOR SA ONLY 330 MG/7.5 ML UDC GT SCH ×3 (08:07→16:41)
[2019-05-09] MEDS: METFORMIN 850 MG TABLET GT SCH ×2 (08:07→16:41)
[2019-05-09] MEDS: ACETYLCYSTEINE 10% SOLN 400 MG/4 ML VIAL NEB SCH ×3 (08:16→23:30)
[2019-05-09] MEDS: CLOTRIMAZOLE 1% 15 GM TUBE TP SCH ×2 (09:00→20:30)
[2019-05-09] MEDS: HEPARIN SODIUM, PORCINE 5000 UNITS/1 ML VIAL SQ SCH ×2 (09:00→20:30)
[2019-05-09] MEDS: Z GUARD REMEDY 4 OZ OINT TP SCH ×4 (09:00→20:30)
--- NOTE | 2019-05-09 09:06 | NUR ---
RT NOTE PT RECEIVED TRACHED ON MECHANICAL VENTILATION. AMBU BAG/BACK UP TRACH @ BEDSIDE. CUFF CHECKED VIA LOADING MACHINE ADJUSTER. TX GIVEN, NO ADVERSE REACTIONS NOTED. SX DONE, TRACH SECURED AND PATENT. ALARMS ON AND AUDIBLE. NO SOB NOTED. Addendum: 05/09/19 at 0906 by ARIS CRUZ RT Amended: Links added.
[2019-05-09] MEDS: HYDROGEN PEROXIDE 480 ML BOTTLE TP SCH ×2 (09:12→21:19)
--- NOTE | 2019-05-09 20:00 | NUR ---
Temp 101.4,HR 117,BP 110/66 ,increased secretions,no respiratory distress.Dr. Dsouza notified awaiting for reply.Cooling measures provided.Will continue to monitor.
[2019-05-09 20:14] VITALS: BP 110/66
--- NOTE | 2019-05-09 20:20 | NUR ---
Dr. Dsouza ordered CBC,BMP,UA,CXR,BLOOD CULTURE x 2 and start Zosyn 4.5gms q8 x 7 days and Vancomycin pharmacist to dose.Faxed order to [facility].
[2019-05-09] MEDS: MULTIVIT W/MINERALS 1 TAB TABLET GT SCH (20:30)
[2019-05-09] MEDS: ACETAMINOPHEN 650 MG/20 ML UDC- SA PATIENTS-FEVER ONLY GT PRN (20:31)
--- NOTE | 2019-05-09 20:38 | NUR ---
RECEIVED TRACH PT ON MECH VENT WITH NOTED SETTINGS. PT IS OBTUNDED. TRACH IS PATENT AND SECURED. AUTOMATION MACHINE OPERATOR DONE. Q6 BREATHING TX GIVEN WITH NO ADVERSE REACTION NOTED. SX DONE PRN. VENT PLUGGED INTO RED OUTLET. ALARMS ON AND AUDIBLE. AMBU BAG @ BEDSIDE. NO RESP DISTRESS AT THIS TIME. WILL CONT TO MONITOR PT.
[2019-05-09] MEDS ORDERED: ZOSYN IVPB 4.5 G in IV D5W 50ml IV SCH (21:00)
--- NOTE | 2019-05-09 21:00 | NUR ---
Per [facility] pharmacist Betty not covered by insurance.Notified [facility] pharmacist Elijah ,she said fax results of labs to after hours pharmacy and they will dose it.
[2019-05-09 21:06] LABS: BASOPHILS # (AUTO) 0.1 /CMM (0.0-0.2); BASOPHILS % (AUTO) 0.5 % (0.0-2.0); EOSINOPHILS % (AUTO) 0.9 % (0.0-6.0); HEMATOCRIT 33 % (33-45); LYMPHOCYTES % (AUTO) 17.3 % (20.0-44.0); MEAN CORPUSCULAR HGB CONC 34 g/dl (31.0-36.0); MEAN CORPUSCULAR VOLUME 90 fL (82-100); MONOCYTES # (AUTO) 0.6 /CMM (0.1-1.30); MONOCYTES % (AUTO) 4.9 % (2.0-12.0); NEUTROPHILS # (AUTO) 9.1 /CMM (1.8-8.9); NEUTROPHILS % (AUTO) 76.4 % (43.0-81.0); PLATELET COUNT (AUTO) 501 /CMM (150-450); RED BLOOD CELL COUNT(AUTO) 3.61 MIL/uL (4.0-5.2); WHITE BLOOD COUNT (AUTO) 11.8 K/uL (4.3-11.0)
[2019-05-09 21:16] LABS: CALCIUM, SERUM 10.2 mg/dL (8.5-10.1); CREATININE 1.4 mg/dL (0.6-1.3)
[2019-05-09] MEDS: SENNOSIDES 8.6 MG TABLET GT SCH (22:28)
[2019-05-09] MEDS: [UNRECOGNIZED DRUG - OTHER] SQ SCH (22:29)
[2019-05-09] MEDS: BASAGLAR SQ SCH (22:29)
--- NOTE | 2019-05-09 22:30 | NUR ---
Called night pharmacist and they said they working on it.Will wait for the dosing. Sister Tosin also notified in person of [facility].
[2019-05-09] MEDS ORDERED: VANCOMYCIN 1 GM VIAL ONE (22:59)
[2019-05-09] MEDS ORDERED: VANCOMYCIN 1 GM in IV D5W 250ml IV ONE (23:00)
[2019-05-09] MEDS ORDERED: PIPERACILLIN /TAZOBACTAM 3.375 G VIAL IV ONE (23:51)
[2019-05-10] MEDS: IPRATROPIUM NEB FS 0.5 MG/2.5 ML AMPUL.NEB NEB SCH ×6 (03:14→23:21)
[2019-05-10] MEDS: ALBUTEROL FS 2.5 MG/3 ML VIAL.NEB NEB SCH ×6 (03:14→23:21)
[2019-05-10] MEDS: BLOOD SUGAR DIAGNOSTIC 1 EACH STRIP IN SCH ×2 (05:31→18:19)
[2019-05-10] MEDS: POLYVINYL ALCOHOL 15 ML BOTTLE EACHEYE SCH ×3 (05:31→17:52)
[2019-05-10] MEDS: OMEPRAZOLE DR 20 MG GT SCH (05:31)
[2019-05-10] MEDS: INSULIN LISPRO/ASPART 100 UNIT/ML CARTRIDGE SQ PRN ×2 (05:32→18:21)
[2019-05-10] MEDS: GLUCERNA 1.2 1,000 ML BOTTLE GT PRN (06:00)
[2019-05-10 07:45] VITALS: BP 108/66
[2019-05-10] MEDS: ASCORBIC ACID 500 MG TABLET GT SCH ×2 (08:15→17:52)
[2019-05-10] MEDS: DOCUSATE SODIUM LIQ 100 MG/10 ML UDC GT SCH ×2 (08:15→17:52)
[2019-05-10] MEDS: METFORMIN 850 MG TABLET GT SCH ×2 (08:15→17:52)
[2019-05-10] MEDS: POTASSIUM CHLORIDE 20 MEQ/15 ML GT SCH (08:15)
[2019-05-10] MEDS: HEPARIN SODIUM, PORCINE 5000 UNITS/1 ML VIAL SQ SCH ×2 (08:15→20:50)
[2019-05-10] MEDS: FERROUS SULFATE - FOR SA ONLY 330 MG/7.5 ML UDC GT SCH ×3 (08:15→17:52)
[2019-05-10] MEDS: BACLOFEN (10 MG) 10 MG TABLET GT SCH ×2 (08:15→20:49)
[2019-05-10] MEDS: PROSTAT (PYXIS) 30 ML UDC GT SCH ×2 (08:15→17:52)
[2019-05-10] MEDS: LEVETIRACETAM SOL (5 ML) 100 MG/ML UDC GT SCH ×2 (08:15→20:49)
[2019-05-10] MEDS: Z GUARD REMEDY 4 OZ OINT TP SCH ×4 (08:16→20:51)
[2019-05-10] MEDS: CLOTRIMAZOLE 1% 15 GM TUBE TP SCH ×2 (08:16→20:50)
[2019-05-10] MEDS: ACETYLCYSTEINE 10% SOLN 400 MG/4 ML VIAL NEB SCH ×3 (08:29→23:21)
[2019-05-10] MEDS ORDERED: FEE PK DOSING 1 MIN EA MC ONE (08:57)
[2019-05-10] MEDS: HYDROGEN PEROXIDE 480 ML BOTTLE TP SCH ×2 (09:00→20:24)
[2019-05-10] MEDS ORDERED: ZOSYN IVPB 3.375 G in IV D5W 50ml IV ONE (09:00)
--- NOTE | 2019-05-10 11:33 | NUR ---
RT NOTE PT RECEIVED TRACHED ON MECHANICAL VENTILATION. AMBU BAG/BACK UP TRACH @ BEDSIDE. TX GIVEN, NO ADVERSE REACTIONS NOTED. SX DONE, TRACH SECURED AND PATENT. ALARMS ON AND AUDIBLE. NO SOB NOTED AT THIS TIME. Addendum: 05/10/19 at 1134 by ARIS CRUZ RT Amended: Links added.
[2019-05-10] MEDS: VANCOMYCIN 1 GM in IV D5W 250 ML IV SCH (17:00)
[2019-05-10] MEDS: PIPERACILLIN /TAZOBACTAM 3.375 G in IV D5W 100 ML IV SCH (17:00)
[2019-05-10 20:04] VITALS: BP 105/67
[2019-05-10 20:23] LABS: BILIRUBIN,URINE Negative (NEGATIVE); BLOOD, URINE Negative Ery/uL (NEGATIVE); COLOR,URINE Yellow (YELLOW); KETONES,URINE Negative (NEGATIVE); LEUKOCYTE ESTERASE ,URINE Negative (NEGATIVE); NITRITE, URINE Negative (NEGATIVE); PH,URINE 5.5 (5.0-8.0); PROTEIN,URINE 30 mg/dl (NEGATIVE); UGLUCOSE Negative (NEGATIVE); UROBILINOGEN,URINE 0.2 EU/dL (0.2)
[2019-05-10 20:25] LABS: APPEARANCE,URINE CLEAR (CLEAR)
--- NOTE | 2019-05-10 20:25 | NUR ---
PT RCVD TRACH'D ON MECHANICAL VENT WITH CHARTED SETTINGS. PT TUTU TX WELL. SX DONE. PT TRACH IS PATENT AND SECURE. VENT ALARMS APPEAR TO BE FUNCTIONING PROPERLY. VENT PLUGGED INTO RED OUTLET. AMBU BAG AT BEDSIDE. Addendum: 05/10/19 at 2024 by CHAGO HOLMAN RT Amended: Links added.
[2019-05-10 20:26] LABS: BACTERIA,URINE Many /HPF (None Seen); RBC,URINE 0-2 /HPF (0-2); SQUAMOUS EPITHELIAL CELL,UR Rare /HPF (None Seen); URINE AMORPHOUS URATE Many /HPF (None Seen); WBC,URINE 0-2 /HPF (0-3)
[2019-05-10] MEDS: MULTIVIT W/MINERALS 1 TAB TABLET GT SCH (20:49)
[2019-05-10] MEDS: IV NS 0.9% 1,000 ML IV PRN (21:20)
[2019-05-10] MEDS: SENNOSIDES 8.6 MG TABLET GT SCH (21:56)
[2019-05-10] MEDS: BASAGLAR SQ SCH (21:57)
[2019-05-10] MEDS: [UNRECOGNIZED DRUG - OTHER] SQ SCH (21:57)
[2019-05-11] MEDS: POLYVINYL ALCOHOL 15 ML BOTTLE EACHEYE SCH ×5 (00:07→23:28)
[2019-05-11] MEDS: PIPERACILLIN /TAZOBACTAM 3.375 G in IV D5W 100 ML IV SCH ×3 (01:00→17:05)
[2019-05-11] MEDS: IPRATROPIUM NEB FS 0.5 MG/2.5 ML AMPUL.NEB NEB SCH ×6 (03:55→23:09)
[2019-05-11] MEDS: ALBUTEROL FS 2.5 MG/3 ML VIAL.NEB NEB SCH ×6 (03:55→23:09)
[2019-05-11] MEDS: OMEPRAZOLE DR 20 MG GT SCH (05:32)
[2019-05-11] MEDS: BLOOD SUGAR DIAGNOSTIC 1 EACH STRIP IN SCH ×2 (05:32→17:55)
[2019-05-11] MEDS: INSULIN LISPRO/ASPART 100 UNIT/ML CARTRIDGE SQ PRN ×2 (05:34→17:56)
[2019-05-11] MEDS: GLUCERNA 1.2 1,000 ML BOTTLE GT PRN (06:00)
[2019-05-11 06:52] LABS: CALCIUM, SERUM 9.7 mg/dL (8.5-10.1); CREATININE 1.3 mg/dL (0.6-1.3); POTASSIUM 3.8 mmol/L (3.5-5.1)
[2019-05-11] MEDS: ACETYLCYSTEINE 10% SOLN 400 MG/4 ML VIAL NEB SCH ×3 (07:25→23:09)
[2019-05-11 07:30] VITALS: BP 107/69
[2019-05-11] MEDS: BACLOFEN (10 MG) 10 MG TABLET GT SCH ×2 (08:47→21:11)
[2019-05-11] MEDS: DOCUSATE SODIUM LIQ 100 MG/10 ML UDC GT SCH ×2 (08:47→16:44)
[2019-05-11] MEDS: POTASSIUM CHLORIDE 20 MEQ/15 ML GT SCH (08:47)
[2019-05-11] MEDS: ASCORBIC ACID 500 MG TABLET GT SCH ×2 (08:47→16:44)
[2019-05-11] MEDS: METFORMIN 850 MG TABLET GT SCH ×2 (08:47→16:44)
[2019-05-11] MEDS: PROSTAT (PYXIS) 30 ML UDC GT SCH ×2 (08:47→16:44)
[2019-05-11] MEDS: FERROUS SULFATE - FOR SA ONLY 330 MG/7.5 ML UDC GT SCH ×3 (08:47→16:44)
[2019-05-11] MEDS: LEVETIRACETAM SOL (5 ML) 100 MG/ML UDC GT SCH ×2 (08:47→21:11)
[2019-05-11] MEDS: HEPARIN SODIUM, PORCINE 5000 UNITS/1 ML VIAL SQ SCH ×2 (08:47→21:12)
[2019-05-11] MEDS: CLOTRIMAZOLE 1% 15 GM TUBE TP SCH ×2 (08:48→21:12)
[2019-05-11] MEDS: Z GUARD REMEDY 4 OZ OINT TP SCH ×4 (08:48→21:12)
[2019-05-11] MEDS: HYDROGEN PEROXIDE 480 ML BOTTLE TP SCH ×2 (09:51→21:00)
[2019-05-11] MEDS: VANCOMYCIN 1 GM in IV D5W 250 ML IV SCH (11:57)
[2019-05-11] MEDS: IV NS 0.9% 1,000 ML IV PRN (11:58)
--- NOTE | 2019-05-11 15:34 | NUR ---
INTERDISCIPLINARY PLAN OF CARE CONFERENCE took place today. The patients responsible alliance party/ Tosin Horvath [phone] Alvarez and Interdisciplinary team discussed the plan of care in detail. Current orders as well as treatments and medications were reviewed. The IDT answered all of familys questions. Please see other disciplines IDT notes for further details.
--- NOTE | 2019-05-11 17:09 | NUR ---
RT NOTES TRACH TUBE IN PLACE, PATENT, AND SECURED WITH TRACH TIE. RECEIVED PT ON VENT WITH ORDERED SETTINGS. ALARMS ON AND AUDIBLE. VENT PLUGGED IN TO THE RED OUTLET. AMBU BAG AND BACK UP TRACH BY THE BEDSIDE. NO DISTRESS AT THIS TIME. WILL CONTINUE TO MONITOR. Addendum: 05/11/19 at 1710 by ADOLFO LU RT Amended: Links added.
--- NOTE | 2019-05-11 19:50 | NUR ---
Seen and examined by no new orders.
[2019-05-11 20:47] VITALS: BP 103/65
[2019-05-11] MEDS: MULTIVIT W/MINERALS 1 TAB TABLET GT SCH (21:11)
[2019-05-11] MEDS: SENNOSIDES 8.6 MG TABLET GT SCH (21:12)
[2019-05-11] MEDS: BASAGLAR SQ SCH (21:26)
[2019-05-11] MEDS: [UNRECOGNIZED DRUG - OTHER] SQ SCH (21:26)
[2019-05-12] MEDS: PIPERACILLIN /TAZOBACTAM 3.375 G in IV D5W 100 ML IV SCH ×3 (01:08→16:48)
[2019-05-12] MEDS: IPRATROPIUM NEB FS 0.5 MG/2.5 ML AMPUL.NEB NEB SCH ×6 (03:43→23:20)
[2019-05-12] MEDS: ALBUTEROL FS 2.5 MG/3 ML VIAL.NEB NEB SCH ×6 (03:43→23:20)
[2019-05-12 04:39] LABS: CALCIUM, SERUM 9.5 mg/dL (8.5-10.1); CREATININE 1.3 mg/dL (0.6-1.3)
[2019-05-12] MEDS: VANCOMYCIN 1 GM in IV D5W 250 ML IV SCH ×2 (05:01→23:00)
[2019-05-12] MEDS: IV NS 0.9% 1,000 ML IV PRN (05:02)
[2019-05-12] MEDS: OMEPRAZOLE DR 20 MG GT SCH (05:40)
[2019-05-12] MEDS: POLYVINYL ALCOHOL 15 ML BOTTLE EACHEYE SCH ×4 (05:40→23:40)
[2019-05-12] MEDS: BLOOD SUGAR DIAGNOSTIC 1 EACH STRIP IN SCH ×2 (05:40→17:07)
[2019-05-12] MEDS: GLUCERNA 1.2 1,000 ML BOTTLE GT PRN (05:40)
[2019-05-12] MEDS: INSULIN LISPRO/ASPART 100 UNIT/ML CARTRIDGE SQ PRN ×2 (05:42→17:07)
[2019-05-12 07:17] VITALS: BP 101/66
[2019-05-12] MEDS: ACETYLCYSTEINE 10% SOLN 400 MG/4 ML VIAL NEB SCH ×3 (07:51→23:20)
[2019-05-12] MEDS: LEVETIRACETAM SOL (5 ML) 100 MG/ML UDC GT SCH ×2 (08:19→21:09)
[2019-05-12] MEDS: DOCUSATE SODIUM LIQ 100 MG/10 ML UDC GT SCH ×2 (08:19→17:06)
[2019-05-12] MEDS: ASCORBIC ACID 500 MG TABLET GT SCH ×2 (08:19→17:07)
[2019-05-12] MEDS: METFORMIN 850 MG TABLET GT SCH ×2 (08:19→17:07)
[2019-05-12] MEDS: BACLOFEN (10 MG) 10 MG TABLET GT SCH ×2 (08:19→21:09)
[2019-05-12] MEDS: POTASSIUM CHLORIDE 20 MEQ/15 ML GT SCH (08:19)
[2019-05-12] MEDS: FERROUS SULFATE - FOR SA ONLY 330 MG/7.5 ML UDC GT SCH ×3 (08:19→17:07)
[2019-05-12] MEDS: PROSTAT (PYXIS) 30 ML UDC GT SCH ×2 (08:19→17:07)
[2019-05-12] MEDS: HEPARIN SODIUM, PORCINE 5000 UNITS/1 ML VIAL SQ SCH ×2 (08:20→21:10)
[2019-05-12] MEDS: Z GUARD REMEDY 4 OZ OINT TP SCH ×4 (08:20→21:10)
[2019-05-12] MEDS: CLOTRIMAZOLE 1% 15 GM TUBE TP SCH ×2 (08:20→21:10)
[2019-05-12] MEDS: HYDROGEN PEROXIDE 480 ML BOTTLE TP SCH ×2 (09:36→21:34)
--- NOTE | 2019-05-12 15:58 | NUR ---
RT NOTES TRACH TUBE IN PLACE, PATENT, AND SECURED WITH TRACH TIE. RECEIVED PT ON VENT WITH ORDERED SETTINGS. ALARMS ON AND AUDIBLE. VENT PLUGGED IN TO THE RED OUTLET. AMBU BAG AND BACK UP TRACH BY THE BEDSIDE. NO DISTRESS AT THIS TIME. WILL CONTINUE TO MONITOR. Addendum: 05/12/19 at 1558 by ADOLFO LU RT Amended: Links added.
[2019-05-12 20:45] VITALS: BP 100/60
[2019-05-12] MEDS: MULTIVIT W/MINERALS 1 TAB TABLET GT SCH (21:09)
[2019-05-12] MEDS: SENNOSIDES 8.6 MG TABLET GT SCH (21:10)
[2019-05-12] MEDS: BASAGLAR SQ SCH (21:16)
[2019-05-12] MEDS: [UNRECOGNIZED DRUG - OTHER] SQ SCH (21:16)
[2019-05-13] MEDS: PIPERACILLIN /TAZOBACTAM 3.375 G in IV D5W 100 ML IV SCH ×3 (01:00→17:09)
[2019-05-13] MEDS: IPRATROPIUM NEB FS 0.5 MG/2.5 ML AMPUL.NEB NEB SCH ×6 (03:19→23:48)
[2019-05-13] MEDS: ALBUTEROL FS 2.5 MG/3 ML VIAL.NEB NEB SCH ×6 (03:20→23:48)
[2019-05-13] MEDS: OMEPRAZOLE DR 20 MG GT SCH (06:00)
[2019-05-13] MEDS: POLYVINYL ALCOHOL 15 ML BOTTLE EACHEYE SCH ×4 (06:00→23:44)
[2019-05-13] MEDS: BLOOD SUGAR DIAGNOSTIC 1 EACH STRIP IN SCH ×2 (06:00→17:53)
[2019-05-13] MEDS: GLUCERNA 1.2 1,000 ML BOTTLE GT PRN (06:00)
[2019-05-13] MEDS: INSULIN LISPRO/ASPART 100 UNIT/ML CARTRIDGE SQ PRN (06:01)
[2019-05-13 07:43] VITALS: BP 107/70
[2019-05-13] MEDS: ACETYLCYSTEINE 10% SOLN 400 MG/4 ML VIAL NEB SCH ×3 (07:58→23:48)
[2019-05-13] MEDS: HYDROGEN PEROXIDE 480 ML BOTTLE TP SCH ×2 (07:58→20:00)
[2019-05-13 08:32] LABS: CALCIUM, SERUM 9.6 mg/dL (8.5-10.1); CREATININE 1.2 mg/dL (0.6-1.3); POTASSIUM 3.8 mmol/L (3.5-5.1)
[2019-05-13] MEDS: BACLOFEN (10 MG) 10 MG TABLET GT SCH ×2 (09:25→21:05)
[2019-05-13] MEDS: LEVETIRACETAM SOL (5 ML) 100 MG/ML UDC GT SCH ×2 (09:25→21:05)
[2019-05-13] MEDS: PROSTAT (PYXIS) 30 ML UDC GT SCH ×2 (09:25→16:54)
[2019-05-13] MEDS: ASCORBIC ACID 500 MG TABLET GT SCH ×2 (09:25→16:54)
[2019-05-13] MEDS: HEPARIN SODIUM, PORCINE 5000 UNITS/1 ML VIAL SQ SCH ×2 (09:25→21:05)
[2019-05-13] MEDS: METFORMIN 850 MG TABLET GT SCH ×2 (09:25→16:54)
[2019-05-13] MEDS: FERROUS SULFATE - FOR SA ONLY 330 MG/7.5 ML UDC GT SCH ×3 (09:25→16:54)
[2019-05-13] MEDS: POTASSIUM CHLORIDE 20 MEQ/15 ML GT SCH (09:25)
[2019-05-13] MEDS: DOCUSATE SODIUM LIQ 100 MG/10 ML UDC GT SCH ×2 (09:25→16:54)
[2019-05-13] MEDS: Z GUARD REMEDY 4 OZ OINT TP SCH ×4 (09:26→21:05)
[2019-05-13] MEDS: CLOTRIMAZOLE 1% 15 GM TUBE TP SCH ×2 (09:26→21:05)
--- NOTE | 2019-05-13 14:11 | NUR ---
Spoke to Dr. Dsouza regarding abnormal labs results, no new orders, Patient continues with current antibiotic treatment 1. Vancomycin 1 gram IV Q18 hours X7 days, and 2. Zosyn 3.375 grams IV every 8 hours x7days, no adverse reaction noted.
[2019-05-13] MEDS: VANCOMYCIN 1 GM in IV D5W 250 ML IV SCH (17:09)
[2019-05-13 19:41] VITALS: BP 111/70
--- NOTE | 2019-05-13 20:01 | NUR ---
RT NOTE: RECEIVED TRACH PT ON [facility] VENT ON NOTED SETTINGS PER MD ORDERS. TRACH IS PATENT AND SECURED. TRACH CARE DONE. ROTARY SURFACE GRINDER DONE. Q4 BREATHING TX GIVEN WITH NO ADVERSE REACTION NOTED. SX DONE PRN. VENT PLUGGED INTO RED OUTLET. ALARMS ON AND AUDIBLE. ROSSYU BAG @ BEDSIDE. NO RESP DISTRESS AT THIS TIME. WILL CONT TO MONITOR PT. Addendum: 05/14/19 at 0528 by SHE BYRNE RT Amended: Links added.
[2019-05-13] MEDS: SENNOSIDES 8.6 MG TABLET GT SCH (21:05)
[2019-05-13] MEDS: MULTIVIT W/MINERALS 1 TAB TABLET GT SCH (21:05)
[2019-05-13] MEDS: [UNRECOGNIZED DRUG - OTHER] SQ SCH (21:06)
[2019-05-13] MEDS: BASAGLAR SQ SCH (21:06)
[2019-05-14] MEDS: PIPERACILLIN /TAZOBACTAM 3.375 G in IV D5W 100 ML IV SCH ×3 (01:00→17:00)
[2019-05-14] MEDS: ALBUTEROL FS 2.5 MG/3 ML VIAL.NEB NEB SCH ×6 (02:30→23:14)
[2019-05-14] MEDS: IPRATROPIUM NEB FS 0.5 MG/2.5 ML AMPUL.NEB NEB SCH ×6 (02:30→23:14)
[2019-05-14] MEDS: BLOOD SUGAR DIAGNOSTIC 1 EACH STRIP IN SCH ×2 (05:36→17:54)
[2019-05-14] MEDS: OMEPRAZOLE DR 20 MG GT SCH (05:36)
[2019-05-14] MEDS: POLYVINYL ALCOHOL 15 ML BOTTLE EACHEYE SCH ×3 (05:36→17:07)
[2019-05-14 07:25] LABS: BASOPHILS # (AUTO) 0.1 /CMM (0.0-0.2); BASOPHILS % (AUTO) 0.9 % (0.0-2.0); EOSINOPHILS % (AUTO) 3.6 % (0.0-6.0); HEMATOCRIT 29 % (33-45); HEMOGLOBIN 9.7 g/dL (11.5-14.8); LYMPHOCYTES # (AUTO) 2.1 /CMM (0.8-4.8); LYMPHOCYTES % (AUTO) 25.7 % (20.0-44.0); MEAN CORPUSCULAR HGB CONC 33 g/dl (31.0-36.0); MEAN CORPUSCULAR VOLUME 90 fL (82-100); MONOCYTES # (AUTO) 0.5 /CMM (0.1-1.30); MONOCYTES % (AUTO) 6.5 % (2.0-12.0); NEUTROPHILS # (AUTO) 5.2 /CMM (1.8-8.9); NEUTROPHILS % (AUTO) 63.3 % (43.0-81.0); PLATELET COUNT (AUTO) 476 /CMM (150-450); RED BLOOD CELL COUNT(AUTO) 3.22 MIL/uL (4.0-5.2); WHITE BLOOD COUNT (AUTO) 8.2 K/uL (4.3-11.0)
[2019-05-14 07:31] LABS: CALCIUM, SERUM 10.2 mg/dL (8.5-10.1); CREATININE 1.1 mg/dL (0.6-1.3); POTASSIUM 3.8 mmol/L (3.5-5.1)
[2019-05-14] MEDS: ACETYLCYSTEINE 10% SOLN 400 MG/4 ML VIAL NEB SCH ×3 (08:07→23:14)
[2019-05-14 08:26] LABS: BAND % (MANUAL) 3 % (0.0-5.0); EOSINOPHILS % (MANUAL) 5 % (0-4); LYMPHOCYTES % (MANUAL) 27 % (16-48); METAMYELOCYTES % 2 % (0-0); MONOCYTES % (MANUAL) 5 % (0-11.0); MYELOCYTES % 1 % (0-0); NEUTROPHILS % (MANUAL) 57 (42-76)
[2019-05-14] MEDS: DOCUSATE SODIUM LIQ 100 MG/10 ML UDC GT SCH ×2 (09:00→17:06)
[2019-05-14] MEDS: BACLOFEN (10 MG) 10 MG TABLET GT SCH ×2 (09:00→21:03)
[2019-05-14] MEDS: POTASSIUM CHLORIDE 20 MEQ/15 ML GT SCH (09:00)
[2019-05-14] MEDS: LEVETIRACETAM SOL (5 ML) 100 MG/ML UDC GT SCH ×2 (09:00→21:02)
[2019-05-14] MEDS: ASCORBIC ACID 500 MG TABLET GT SCH ×2 (09:00→17:06)
[2019-05-14] MEDS: FERROUS SULFATE - FOR SA ONLY 330 MG/7.5 ML UDC GT SCH ×3 (09:00→17:06)
[2019-05-14] MEDS: METFORMIN 850 MG TABLET GT SCH ×2 (09:00→17:06)
[2019-05-14] MEDS: PROSTAT (PYXIS) 30 ML UDC GT SCH ×2 (09:00→17:06)
[2019-05-14] MEDS: CLOTRIMAZOLE 1% 15 GM TUBE TP SCH ×2 (09:00→21:03)
[2019-05-14] MEDS: HEPARIN SODIUM, PORCINE 5000 UNITS/1 ML VIAL SQ SCH ×2 (09:00→21:03)
[2019-05-14] MEDS: Z GUARD REMEDY 4 OZ OINT TP SCH ×4 (09:00→21:03)
[2019-05-14 09:47] VITALS: BP 119/70
[2019-05-14] MEDS: HYDROGEN PEROXIDE 480 ML BOTTLE TP SCH ×2 (09:47→21:00)
[2019-05-14] MEDS: VANCOMYCIN 1 GM in IV D5W 250 ML IV SCH (11:59)
--- NOTE | 2019-05-14 19:30 | NUR ---
RN NOTES Seen and examined by Mya Rodgers NP, with new order noted and carried out. Responsible green party, Tosin, notified of new order.
[2019-05-14 20:38] VITALS: BP 105/71
[2019-05-14] MEDS: MULTIVIT W/MINERALS 1 TAB TABLET GT SCH (21:03)
[2019-05-14] MEDS: BASAGLAR SQ SCH (21:04)
[2019-05-14] MEDS: [UNRECOGNIZED DRUG - OTHER] SQ SCH (21:04)
[2019-05-14] MEDS: SENNOSIDES 8.6 MG TABLET GT SCH (21:04)
[2019-05-15] MEDS: PIPERACILLIN /TAZOBACTAM 3.375 G in IV D5W 100 ML IV SCH ×3 (01:00→17:00)
[2019-05-15] MEDS: IPRATROPIUM NEB FS 0.5 MG/2.5 ML AMPUL.NEB NEB SCH ×6 (03:33→22:56)
[2019-05-15] MEDS: ALBUTEROL FS 2.5 MG/3 ML VIAL.NEB NEB SCH ×6 (03:33→22:56)
--- NOTE | 2019-05-15 04:58 | NUR ---
RT NOTE PT. RECEIVED ON TRACH ON MECHANICAL VENT WITH NOTED SETTINGS. ALARMS ARE SET AND AUDIBLE AND VENT IS PLUGGED TO RED OUTLET. TRACH IS PATENT AND SECURE. SPARE TRACH AND BVM IS AT BEDSIDE. PT. HAS EQUAL CHEST RISE WITH COARSE BILATERAL BREATH SOUNDS. SX. MODERATE AMOUNT OF WHITE THIN SECRETIONS T/O THE NIGHT. Q4 AND Q8 TX'S WERE GIVEN WITH NO ADVERSE REACTIONS. Addendum: 05/15/19 at 0458 by BRANT GARCIA RT Amended: Links added.
[2019-05-15] MEDS: OMEPRAZOLE DR 20 MG GT SCH (05:33)
[2019-05-15] MEDS: POLYVINYL ALCOHOL 15 ML BOTTLE EACHEYE SCH ×5 (05:33→23:07)
[2019-05-15] MEDS: BLOOD SUGAR DIAGNOSTIC 1 EACH STRIP IN SCH ×2 (05:35→17:46)
[2019-05-15] MEDS: VANCOMYCIN 1 GM in IV D5W 250 ML IV SCH ×2 (05:58→23:00)
[2019-05-15 07:19] LABS: CALCIUM, SERUM 9.6 mg/dL (8.5-10.1); CREATININE 1.2 mg/dL (0.6-1.3); POTASSIUM 4.3 mmol/L (3.5-5.1)
[2019-05-15] MEDS: ACETYLCYSTEINE 10% SOLN 400 MG/4 ML VIAL NEB SCH ×3 (07:30→22:56)
[2019-05-15 08:00] VITALS: BP 126/69
[2019-05-15] MEDS: Z GUARD REMEDY 4 OZ OINT TP SCH ×4 (09:20→21:05)
[2019-05-15] MEDS: CLOTRIMAZOLE 1% 15 GM TUBE TP SCH ×2 (09:20→21:05)
[2019-05-15] MEDS: HYDROGEN PEROXIDE 480 ML BOTTLE TP SCH ×2 (09:37→19:59)
[2019-05-15] MEDS: METFORMIN 850 MG TABLET GT SCH ×2 (09:47→17:45)
[2019-05-15] MEDS: POTASSIUM CHLORIDE 20 MEQ/15 ML GT SCH (09:47)
[2019-05-15] MEDS: BACLOFEN (10 MG) 10 MG TABLET GT SCH ×2 (09:47→21:05)
[2019-05-15] MEDS: PROSTAT (PYXIS) 30 ML UDC GT SCH ×2 (09:47→17:45)
[2019-05-15] MEDS: FERROUS SULFATE - FOR SA ONLY 330 MG/7.5 ML UDC GT SCH ×3 (09:47→17:45)
[2019-05-15] MEDS: LEVETIRACETAM SOL (5 ML) 100 MG/ML UDC GT SCH ×2 (09:47→21:05)
[2019-05-15] MEDS: DOCUSATE SODIUM LIQ 100 MG/10 ML UDC GT SCH ×2 (09:47→17:45)
[2019-05-15] MEDS: ASCORBIC ACID 500 MG TABLET GT SCH ×2 (09:48→17:45)
[2019-05-15] MEDS: HEPARIN SODIUM, PORCINE 5000 UNITS/1 ML VIAL SQ SCH ×2 (09:48→21:05)
--- NOTE | 2019-05-15 09:53 | NUR ---
Spoke with pharmacist Ailyn regarding Vancomycin level 65. Vancomycin was being infused when level was drawn. She said they will order another level.
--- NOTE | 2019-05-15 19:59 | NUR ---
RT NOTE: RECEIVED TRACH PT ON [facility] VENT ON NOTED SETTINGS PER MD ORDERS. TRACH IS PATENT AND SECURED. TRACH CARE DONE. CASTING TECHNICIAN DONE. Q6 BREATHING TX GIVEN WITH NO ADVERSE REACTION NOTED. SX DONE PRN. VENT PLUGGED INTO RED OUTLET. ALARMS ON AND AUDIBLE. ROSSYU BAG @ BEDSIDE. NO RESP DISTRESS AT THIS TIME. WILL CONT TO MONITOR PT. Addendum: 05/16/19 at 0351 by SHE BYRNE RT Amended: Links added.
[2019-05-15 20:39] VITALS: BP 107/70
[2019-05-15] MEDS: SENNOSIDES 8.6 MG TABLET GT SCH (21:05)
[2019-05-15] MEDS: MULTIVIT W/MINERALS 1 TAB TABLET GT SCH (21:05)
[2019-05-15] MEDS: BASAGLAR SQ SCH (21:06)
[2019-05-15] MEDS: [UNRECOGNIZED DRUG - OTHER] SQ SCH (21:06)
--- NOTE | 2019-05-15 22:05 | NUR ---
RN NOTES Vanco trough 25 (high), Vancomycin dose held per protocol. Level faxed to pharmacy.
[2019-05-16] MEDS: PIPERACILLIN /TAZOBACTAM 3.375 G in IV D5W 100 ML IV SCH ×2 (01:00→09:45)
[2019-05-16] MEDS: IPRATROPIUM NEB FS 0.5 MG/2.5 ML AMPUL.NEB NEB SCH ×6 (03:24→23:25)
[2019-05-16] MEDS: ALBUTEROL FS 2.5 MG/3 ML VIAL.NEB NEB SCH ×6 (03:24→23:25)
[2019-05-16] MEDS: POLYVINYL ALCOHOL 15 ML BOTTLE EACHEYE SCH ×4 (05:22→23:10)
[2019-05-16] MEDS: OMEPRAZOLE DR 20 MG GT SCH (05:22)
[2019-05-16] MEDS: BLOOD SUGAR DIAGNOSTIC 1 EACH STRIP IN SCH ×2 (05:22→18:13)
[2019-05-16] MEDS: ACETYLCYSTEINE 10% SOLN 400 MG/4 ML VIAL NEB SCH ×3 (07:04→23:25)
[2019-05-16 07:52] VITALS: BP 119/68
[2019-05-16 07:59] LABS: CALCIUM, SERUM 9.8 mg/dL (8.5-10.1); CREATININE 1.2 mg/dL (0.6-1.3); POTASSIUM 3.8 mmol/L (3.5-5.1)
[2019-05-16] MEDS: CLOTRIMAZOLE 1% 15 GM TUBE TP SCH ×2 (09:00→21:12)
[2019-05-16] MEDS: Z GUARD REMEDY 4 OZ OINT TP SCH ×4 (09:00→21:13)
[2019-05-16] MEDS: HYDROGEN PEROXIDE 480 ML BOTTLE TP SCH ×2 (09:00→20:00)
[2019-05-16] MEDS: FERROUS SULFATE - FOR SA ONLY 330 MG/7.5 ML UDC GT SCH ×3 (09:54→17:00)
[2019-05-16] MEDS: DOCUSATE SODIUM LIQ 100 MG/10 ML UDC GT SCH ×2 (09:54→17:00)
[2019-05-16] MEDS: METFORMIN 850 MG TABLET GT SCH ×2 (09:54→17:00)
[2019-05-16] MEDS: LEVETIRACETAM SOL (5 ML) 100 MG/ML UDC GT SCH ×2 (09:54→21:12)
[2019-05-16] MEDS: POTASSIUM CHLORIDE 20 MEQ/15 ML GT SCH (09:55)
[2019-05-16] MEDS: PROSTAT (PYXIS) 30 ML UDC GT SCH ×2 (09:55→17:00)
[2019-05-16] MEDS: ASCORBIC ACID 500 MG TABLET GT SCH ×2 (09:55→17:00)
[2019-05-16] MEDS: BACLOFEN (10 MG) 10 MG TABLET GT SCH ×2 (09:55→21:12)
[2019-05-16] MEDS: HEPARIN SODIUM, PORCINE 5000 UNITS/1 ML VIAL SQ SCH ×2 (09:57→21:12)
--- NOTE | 2019-05-16 12:17 | NUR ---
RT PATIENT RECEIVED TRACH'D ON [facility] VENT WITH SETTINGS PER MD ORDER. PRESSURE CONTROLLER DONE. SPARE TRACH AND AMBU BAG AT BEDSIDE. VENT PLUGGED INTO RED OUTLET. ALARMS ON AND WORKING PROPERLY. BREATHING TX GIVEN ORDERED. NO ADVERSE REACTIONS OBSERVED. SUCTIONED AND MONITORED PRN. NO SOB NOTED AT THIS TIME. TRACH CARE DONE. Addendum: 05/16/19 at 1713 by WING WHITTINGTON RT Amended: Links added.
--- NOTE | 2019-05-16 13:49 | NUR ---
SW contacted and spoke with the patients sister, Tosin Horvath [phone] to invite family regarding Family Support Group for the month of May taking place 05/23/19 from 11am-12 pm in the old admin room. Tosin expressed that she will be in attendance. Noted.
[2019-05-16] MEDS: INSULIN LISPRO/ASPART 100 UNIT/ML CARTRIDGE SQ PRN (18:14)
[2019-05-16] MEDS: MULTIVIT W/MINERALS 1 TAB TABLET GT SCH (21:12)
[2019-05-16] MEDS: BASAGLAR SQ SCH (21:13)
[2019-05-16] MEDS: SENNOSIDES 8.6 MG TABLET GT SCH (21:13)
[2019-05-16] MEDS: [UNRECOGNIZED DRUG - OTHER] SQ SCH (21:13)
[2019-05-17] MEDS: ALBUTEROL FS 2.5 MG/3 ML VIAL.NEB NEB SCH ×6 (02:32→23:51)
[2019-05-17] MEDS: IPRATROPIUM NEB FS 0.5 MG/2.5 ML AMPUL.NEB NEB SCH ×6 (02:32→23:51)
[2019-05-17] MEDS: BLOOD SUGAR DIAGNOSTIC 1 EACH STRIP IN SCH ×2 (05:38→17:25)
[2019-05-17] MEDS: OMEPRAZOLE DR 20 MG GT SCH (05:38)
[2019-05-17] MEDS: POLYVINYL ALCOHOL 15 ML BOTTLE EACHEYE SCH ×4 (05:38→23:54)
[2019-05-17] MEDS: GLUCERNA 1.2 1,000 ML BOTTLE GT PRN (05:39)
[2019-05-17] MEDS: INSULIN LISPRO/ASPART 100 UNIT/ML CARTRIDGE SQ PRN ×2 (05:39→17:27)
[2019-05-17 07:55] VITALS: BP 105/64
[2019-05-17] MEDS: BACLOFEN (10 MG) 10 MG TABLET GT SCH ×2 (08:36→21:19)
[2019-05-17] MEDS: DOCUSATE SODIUM LIQ 100 MG/10 ML UDC GT SCH ×2 (08:36→16:06)
[2019-05-17] MEDS: METFORMIN 850 MG TABLET GT SCH ×2 (08:36→16:06)
[2019-05-17] MEDS: POTASSIUM CHLORIDE 20 MEQ/15 ML GT SCH (08:36)
[2019-05-17] MEDS: ASCORBIC ACID 500 MG TABLET GT SCH ×2 (08:36→16:06)
[2019-05-17] MEDS: LEVETIRACETAM SOL (5 ML) 100 MG/ML UDC GT SCH ×2 (08:36→21:19)
[2019-05-17] MEDS: FERROUS SULFATE - FOR SA ONLY 330 MG/7.5 ML UDC GT SCH ×3 (08:36→16:06)
[2019-05-17] MEDS: PROSTAT (PYXIS) 30 ML UDC GT SCH ×2 (08:36→16:06)
[2019-05-17] MEDS: HEPARIN SODIUM, PORCINE 5000 UNITS/1 ML VIAL SQ SCH ×2 (08:37→21:19)
[2019-05-17] MEDS: CLOTRIMAZOLE 1% 15 GM TUBE TP SCH (08:37)
[2019-05-17] MEDS: Z GUARD REMEDY 4 OZ OINT TP SCH ×3 (08:37→21:19)
[2019-05-17] MEDS: HYDROGEN PEROXIDE 480 ML BOTTLE TP SCH ×2 (09:00→20:49)
[2019-05-17] MEDS: ACETYLCYSTEINE 10% SOLN 400 MG/4 ML VIAL NEB SCH ×3 (10:00→23:51)
[2019-05-17 20:05] VITALS: BP 107/67
--- NOTE | 2019-05-17 20:14 | NUR ---
Seen and examined by AUTOMOTIVE GENERAL SALES MANAGER Mya Rodgers with new order for Ativan 0.5 mg via gt for agitation manifested by increased HR.Will carry out order.
[2019-05-17] MEDS: ACETAMINOPHEN 650 MG/20 ML UDC- SA PATIENTS-PAIN ONLY GT PRN (21:00)
[2019-05-17 21:02] VITALS: BP 107/67
--- NOTE | 2019-05-17 21:08 | NUR ---
PT RCVD TRACH'D ON MECHANICAL VENT WITH CHARTED SETTINGS. PT TUTU TX WELL. SX DONE. PT TRACH IS PATENT AND SECURE. VENT ALARMS APPEAR TO BE FUNCTIONING PROPERLY. VENT PLUGGED INTO RED OUTLET. AMBU BAG AT BEDSIDE. NO SOB NOTED. Addendum: 05/17/19 at 2108 by CHAGO HOLMAN RT Amended: Links added.
[2019-05-17] MEDS: MULTIVIT W/MINERALS 1 TAB TABLET GT SCH (21:19)
[2019-05-17] MEDS: SENNOSIDES 8.6 MG TABLET GT SCH (21:19)
[2019-05-17] MEDS: BASAGLAR SQ SCH (21:21)
[2019-05-17] MEDS: [UNRECOGNIZED DRUG - OTHER] SQ SCH (21:21)
--- NOTE | 2019-05-18 01:47 | NUR ---
RT NOTE LATE ENTRY AT 2355 ELEMENTARY SCHOOL TEACHER'S AIDE KATY NOTIFIED OF INCREASED HEART RATE.
[2019-05-18] MEDS: IPRATROPIUM NEB FS 0.5 MG/2.5 ML AMPUL.NEB NEB SCH ×6 (03:49→23:38)
[2019-05-18] MEDS: ALBUTEROL FS 2.5 MG/3 ML VIAL.NEB NEB SCH ×6 (03:49→23:38)
[2019-05-18] MEDS: INSULIN LISPRO/ASPART 100 UNIT/ML CARTRIDGE SQ PRN ×2 (05:33→17:24)
[2019-05-18] MEDS: POLYVINYL ALCOHOL 15 ML BOTTLE EACHEYE SCH ×3 (05:33→17:23)
[2019-05-18] MEDS: OMEPRAZOLE DR 20 MG GT SCH (05:33)
[2019-05-18] MEDS: BLOOD SUGAR DIAGNOSTIC 1 EACH STRIP IN SCH ×2 (05:33→17:23)
[2019-05-18] MEDS: GLUCERNA 1.2 1,000 ML BOTTLE GT PRN (05:33)
[2019-05-18] MEDS: ACETYLCYSTEINE 10% SOLN 400 MG/4 ML VIAL NEB SCH ×3 (07:34→23:38)
--- NOTE | 2019-05-18 08:38 | NUR ---
RT NOTE RECEIVED PT MECHANICALLY VENTILATED VIA CUFFED TRACHEOSTOMY TUBE. CUFF INFLATED. TRACH TUBE MIDLINE AND SECURE. VENTILATOR SETTINGS PRESCRIBED. ALARMS SET PER PROTOCOL AND AUDIBLE. VENT PLUGGED IN TO RED OUTLET. AMBU BAG AND BACK UP TRACH AT BED SIDE. NO DISTRESS NOTED. Addendum: 05/18/19 at 0838 by VERÓNICA JUNIOR RT Amended: Links added.
[2019-05-18] MEDS: HYDROGEN PEROXIDE 480 ML BOTTLE TP SCH ×2 (09:00→20:33)
[2019-05-18] MEDS: DOCUSATE SODIUM LIQ 100 MG/10 ML UDC GT SCH ×2 (09:19→16:17)
[2019-05-18] MEDS: LEVETIRACETAM SOL (5 ML) 100 MG/ML UDC GT SCH ×2 (09:19→21:33)
[2019-05-18] MEDS: BACLOFEN (10 MG) 10 MG TABLET GT SCH ×2 (09:19→21:33)
[2019-05-18] MEDS: METFORMIN 850 MG TABLET GT SCH ×2 (09:19→16:17)
[2019-05-18] MEDS: FERROUS SULFATE - FOR SA ONLY 330 MG/7.5 ML UDC GT SCH ×3 (09:19→16:17)
[2019-05-18] MEDS: PROSTAT (PYXIS) 30 ML UDC GT SCH ×2 (09:19→16:17)
[2019-05-18] MEDS: ASCORBIC ACID 500 MG TABLET GT SCH ×2 (09:19→16:17)
[2019-05-18] MEDS: POTASSIUM CHLORIDE 20 MEQ/15 ML GT SCH (09:19)
[2019-05-18] MEDS: HEPARIN SODIUM, PORCINE 5000 UNITS/1 ML VIAL SQ SCH ×2 (09:20→21:34)
[2019-05-18] MEDS: Z GUARD REMEDY 4 OZ OINT TP SCH ×2 (09:20→21:34)
[2019-05-18] MEDS ORDERED: LORAZEPAM 0.5 MG TABLET GT PRN (12:30)
[2019-05-18 19:48] VITALS: BP 102/69
[2019-05-18] MEDS: MULTIVIT W/MINERALS 1 TAB TABLET GT SCH (21:33)
[2019-05-18] MEDS: SENNOSIDES 8.6 MG TABLET GT SCH (21:34)
[2019-05-18] MEDS: [UNRECOGNIZED DRUG - OTHER] SQ SCH (21:54)
[2019-05-18] MEDS: BASAGLAR SQ SCH (21:54)
[2019-05-19] MEDS: POLYVINYL ALCOHOL 15 ML BOTTLE EACHEYE SCH ×4 (00:11→18:10)
--- NOTE | 2019-05-19 03:04 | NUR ---
RT NOTE RECEIVED PT. ON TRACH WITH MECHANICAL VENT WITH NOTED SETTINGS. TRACH IS PATENT AND SECURED. VENT IS PLUGGED TO RED OUTLET AND ALARMS ARE SET AND AUDIBLE. BVM AND SPARE TRACH IS AT BEDSIDE. PT. HAS EQUAL CHEST RISE AND BREATHS SOUND ARE COARSE BILATERALLY. NO SOB NOTED. WILL CONTINUE TO MONITOR. Addendum: 05/19/19 at 0304 by BRANT GARCIA RT Amended: Links added.
[2019-05-19] MEDS: IPRATROPIUM NEB FS 0.5 MG/2.5 ML AMPUL.NEB NEB SCH ×6 (03:19→23:12)
[2019-05-19] MEDS: ALBUTEROL FS 2.5 MG/3 ML VIAL.NEB NEB SCH ×6 (03:19→23:12)
[2019-05-19] MEDS: GLUCERNA 1.2 1,000 ML BOTTLE GT PRN (05:23)
[2019-05-19] MEDS: BLOOD SUGAR DIAGNOSTIC 1 EACH STRIP IN SCH ×2 (05:23→18:10)
[2019-05-19] MEDS: OMEPRAZOLE DR 20 MG GT SCH (05:23)
[2019-05-19] MEDS: INSULIN LISPRO/ASPART 100 UNIT/ML CARTRIDGE SQ PRN ×2 (05:25→18:14)
[2019-05-19 07:37] VITALS: BP 104/73
[2019-05-19] MEDS: HYDROGEN PEROXIDE 480 ML BOTTLE TP SCH ×2 (07:38→20:36)
[2019-05-19] MEDS: ACETYLCYSTEINE 10% SOLN 400 MG/4 ML VIAL NEB SCH ×3 (07:38→23:12)
[2019-05-19] MEDS: BACLOFEN (10 MG) 10 MG TABLET GT SCH ×2 (08:09→21:17)
[2019-05-19] MEDS: PROSTAT (PYXIS) 30 ML UDC GT SCH ×2 (08:09→17:00)
[2019-05-19] MEDS: METFORMIN 850 MG TABLET GT SCH ×2 (08:09→17:00)
[2019-05-19] MEDS: LEVETIRACETAM SOL (5 ML) 100 MG/ML UDC GT SCH ×2 (08:09→21:17)
[2019-05-19] MEDS: FERROUS SULFATE - FOR SA ONLY 330 MG/7.5 ML UDC GT SCH ×3 (08:09→17:00)
[2019-05-19] MEDS: ASCORBIC ACID 500 MG TABLET GT SCH ×2 (08:09→17:00)
[2019-05-19] MEDS: DOCUSATE SODIUM LIQ 100 MG/10 ML UDC GT SCH ×2 (08:09→17:00)
[2019-05-19] MEDS: POTASSIUM CHLORIDE 20 MEQ/15 ML GT SCH (08:09)
[2019-05-19] MEDS: HEPARIN SODIUM, PORCINE 5000 UNITS/1 ML VIAL SQ SCH ×2 (08:13→21:28)
[2019-05-19] MEDS: Z GUARD REMEDY 4 OZ OINT TP SCH ×2 (08:13→21:28)
[2019-05-19 20:08] VITALS: BP 113/74
--- NOTE | 2019-05-19 20:36 | NUR ---
RT NOTE PT. RECEIVED ON TRACH WITH MECHANICAL VENT. WITH NOTED SETTINGS. TRACH IS PATENT AND SECURED. ALARMS ARE SET AND AUDIBLE. VENT IS PLUGGED TO RED OUTLET. SPARE TRACH AND BVM IS AT BEDSIDE. PT. HAS EQUAL CHEST RISE WITH COARSE BILATERAL BREATH SOUNDS. SX MODERATE AMOUNT OF THIN WHITE SECRETIONS. NO SOB NOTED. WILL CONTINUE TO MONITOR. Addendum: 05/20/19 at 0122 by BRANT GARCIA RT Amended: Links added.
[2019-05-19] MEDS: MULTIVIT W/MINERALS 1 TAB TABLET GT SCH (21:17)
[2019-05-19] MEDS: SENNOSIDES 8.6 MG TABLET GT SCH (21:28)
[2019-05-19] MEDS: [UNRECOGNIZED DRUG - OTHER] SQ SCH (21:29)
[2019-05-19] MEDS: BASAGLAR SQ SCH (21:29)
[2019-05-20] MEDS: POLYVINYL ALCOHOL 15 ML BOTTLE EACHEYE SCH ×4 (00:46→17:45)
[2019-05-20] MEDS: ALBUTEROL FS 2.5 MG/3 ML VIAL.NEB NEB SCH ×5 (03:28→19:30)
[2019-05-20] MEDS: IPRATROPIUM NEB FS 0.5 MG/2.5 ML AMPUL.NEB NEB SCH ×6 (03:28→19:30)
[2019-05-20] MEDS: OMEPRAZOLE DR 20 MG GT SCH (06:08)
[2019-05-20] MEDS: BLOOD SUGAR DIAGNOSTIC 1 EACH STRIP IN SCH ×2 (06:08→17:45)
[2019-05-20] MEDS: INSULIN LISPRO/ASPART 100 UNIT/ML CARTRIDGE SQ PRN ×2 (06:08→17:47)
[2019-05-20] MEDS: GLUCERNA 1.2 1,000 ML BOTTLE GT PRN (06:09)
[2019-05-20] MEDS: ACETYLCYSTEINE 10% SOLN 400 MG/4 ML VIAL NEB SCH ×2 (07:50→15:07)
[2019-05-20 08:00] VITALS: BP 112/76
--- NOTE | 2019-05-20 08:18 | NUR ---
RT NOTE: REC'D TRACH PT ON [facility] VENT ON NOTED SETTINGS PER MD ORDERS. TRACH IS PATENT AND SECURED. TRACH CARE DONE. GLASS DRILLER DONE. Q6 BREATHING TX GIVEN WITH NO ADVERSE REACTION NOTED. SX DONE PRN. VENT PLUGGED INTO RED OUTLET. ALARMS ON AND AUDIBLE. ROSSYU BAG @ BEDSIDE. NO RESP DISTRESS NOTED AT THIS TIME. WILL CONT TO MONITOR PT. Addendum: 05/20/19 at 0818 by ARIS CRUZ RT Amended: Links added.
[2019-05-20] MEDS: ASCORBIC ACID 500 MG TABLET GT SCH ×2 (09:52→17:45)
[2019-05-20] MEDS: DOCUSATE SODIUM LIQ 100 MG/10 ML UDC GT SCH ×2 (09:52→17:45)
[2019-05-20] MEDS: METFORMIN 850 MG TABLET GT SCH ×2 (09:52→17:45)
[2019-05-20] MEDS: LEVETIRACETAM SOL (5 ML) 100 MG/ML UDC GT SCH ×2 (09:52→21:05)
[2019-05-20] MEDS: PROSTAT (PYXIS) 30 ML UDC GT SCH ×2 (09:52→17:45)
[2019-05-20] MEDS: POTASSIUM CHLORIDE 20 MEQ/15 ML GT SCH (09:52)
[2019-05-20] MEDS: FERROUS SULFATE - FOR SA ONLY 330 MG/7.5 ML UDC GT SCH ×3 (09:52→17:45)
[2019-05-20] MEDS: BACLOFEN (10 MG) 10 MG TABLET GT SCH ×2 (09:52→21:06)
[2019-05-20] MEDS: HEPARIN SODIUM, PORCINE 5000 UNITS/1 ML VIAL SQ SCH ×2 (09:53→21:06)
[2019-05-20] MEDS: Z GUARD REMEDY 4 OZ OINT TP SCH ×2 (09:53→21:06)
[2019-05-20] MEDS: HYDROGEN PEROXIDE 480 ML BOTTLE TP SCH ×2 (09:55→20:30)
[2019-05-20 19:37] VITALS: BP 95/67
[2019-05-20] MEDS: SENNOSIDES 8.6 MG TABLET GT SCH (21:06)
[2019-05-20] MEDS: MULTIVIT W/MINERALS 1 TAB TABLET GT SCH (21:06)
[2019-05-20] MEDS: BASAGLAR SQ SCH (21:07)
[2019-05-20] MEDS: [UNRECOGNIZED DRUG - OTHER] SQ SCH (21:07)
[2019-05-21] MEDS: ALBUTEROL FS 2.5 MG/3 ML VIAL.NEB NEB SCH ×7 (00:12→22:59)
[2019-05-21] MEDS: IPRATROPIUM NEB FS 0.5 MG/2.5 ML AMPUL.NEB NEB SCH ×7 (00:12→22:59)
[2019-05-21] MEDS: ACETYLCYSTEINE 10% SOLN 400 MG/4 ML VIAL NEB SCH ×4 (00:12→22:59)
[2019-05-21] MEDS: POLYVINYL ALCOHOL 15 ML BOTTLE EACHEYE SCH ×5 (00:37→23:18)
[2019-05-21] MEDS: OMEPRAZOLE DR 20 MG GT SCH (05:35)
[2019-05-21] MEDS: BLOOD SUGAR DIAGNOSTIC 1 EACH STRIP IN SCH ×2 (05:35→17:41)
[2019-05-21 06:58] LABS: BASOPHILS # (AUTO) 0.1 /CMM (0.0-0.2); BASOPHILS % (AUTO) 1.4 % (0.0-2.0); EOSINOPHILS % (AUTO) 4.4 % (0.0-6.0); HEMATOCRIT 32 % (33-45); HEMOGLOBIN 10.9 g/dL (11.5-14.8); LYMPHOCYTES # (AUTO) 2.5 /CMM (0.8-4.8); LYMPHOCYTES % (AUTO) 35.6 % (20.0-44.0); MEAN CORPUSCULAR HGB CONC 35 g/dl (31.0-36.0); MEAN CORPUSCULAR VOLUME 90 fL (82-100); MONOCYTES # (AUTO) 0.4 /CMM (0.1-1.30); MONOCYTES % (AUTO) 6.3 % (2.0-12.0); NEUTROPHILS # (AUTO) 3.7 /CMM (1.8-8.9); NEUTROPHILS % (AUTO) 52.3 % (43.0-81.0); PLATELET COUNT (AUTO) 507 /CMM (150-450); RED BLOOD CELL COUNT(AUTO) 3.51 MIL/uL (4.0-5.2)
[2019-05-21 08:00] LABS: BAND % (MANUAL) 3 % (0.0-5.0); EOSINOPHILS % (MANUAL) 7 % (0-4); LYMPHOCYTES % (MANUAL) 38 % (16-48); NEUTROPHILS % (MANUAL) 52 (42-76)
[2019-05-21 08:59] VITALS: BP 106/60
[2019-05-21] MEDS: HYDROGEN PEROXIDE 480 ML BOTTLE TP SCH ×2 (09:00→20:19)
[2019-05-21] MEDS: Z GUARD REMEDY 4 OZ OINT TP SCH ×2 (09:00→21:07)
[2019-05-21] MEDS: DOCUSATE SODIUM LIQ 100 MG/10 ML UDC GT SCH ×2 (09:40→17:41)
[2019-05-21] MEDS: POTASSIUM CHLORIDE 20 MEQ/15 ML GT SCH (09:40)
[2019-05-21] MEDS: FERROUS SULFATE - FOR SA ONLY 330 MG/7.5 ML UDC GT SCH ×3 (09:40→17:41)
[2019-05-21] MEDS: PROSTAT (PYXIS) 30 ML UDC GT SCH ×2 (09:40→17:41)
[2019-05-21] MEDS: BACLOFEN (10 MG) 10 MG TABLET GT SCH ×2 (09:40→21:06)
[2019-05-21] MEDS: METFORMIN 850 MG TABLET GT SCH ×2 (09:40→17:41)
[2019-05-21] MEDS: ASCORBIC ACID 500 MG TABLET GT SCH ×2 (09:40→17:41)
[2019-05-21] MEDS: LEVETIRACETAM SOL (5 ML) 100 MG/ML UDC GT SCH ×2 (09:40→21:06)
[2019-05-21] MEDS: HEPARIN SODIUM, PORCINE 5000 UNITS/1 ML VIAL SQ SCH ×2 (09:41→21:07)
--- NOTE | 2019-05-21 14:21 | NUR ---
RT NOTE: REC'D TRACH PT ON [facility] VENT ON NOTED SETTINGS PER MD ORDERS. TRACH IS PATENT AND SECURED. TRACH CARE DONE. DIELECTRIC MACHINE OPERATOR DONE. SX DONE PRN. VENT PLUGGED INTO RED OUTLET. ALARMS ON AND AUDIBLE. ERIC ROCHA @ BEDSIDE. NO RESP DISTRESS NOTED AT THIS TIME. WILL CONT TO MONITOR PT. Addendum: 05/21/19 at 1421 by ARIS CRUZ RT Amended: Links added.
[2019-05-21] MEDS: INSULIN LISPRO/ASPART 100 UNIT/ML CARTRIDGE SQ PRN (17:41)
--- NOTE | 2019-05-21 20:41 | NUR ---
PT RCVD TRACH'D ON MECHANICAL VENT WITH CHARTED SETTINGS. PT TUTU TX WELL. SX DONE. PT TRACH IS PATENT AND SECURE. VENT ALARMS APPEAR TO BE FUNCTIONING PROPERLY. VENT PLUGGED INTO RED OUTLET. AMBU BAG AT BEDSIDE. NO SOB NOTED. Addendum: 05/21/19 at 2040 by CHAGO HOLMAN RT Amended: Links added.
[2019-05-21] MEDS: MULTIVIT W/MINERALS 1 TAB TABLET GT SCH (21:06)
[2019-05-21] MEDS: SENNOSIDES 8.6 MG TABLET GT SCH (21:07)
[2019-05-21] MEDS: [UNRECOGNIZED DRUG - OTHER] SQ SCH (21:07)
[2019-05-21] MEDS: BASAGLAR SQ SCH (21:07)
[2019-05-21 21:25] VITALS: BP 101/63
[2019-05-22] MEDS: IPRATROPIUM NEB FS 0.5 MG/2.5 ML AMPUL.NEB NEB SCH ×6 (04:04→23:49)
[2019-05-22] MEDS: ALBUTEROL FS 2.5 MG/3 ML VIAL.NEB NEB SCH ×6 (04:04→23:49)
[2019-05-22] MEDS: OMEPRAZOLE DR 20 MG GT SCH (05:42)
[2019-05-22] MEDS: BLOOD SUGAR DIAGNOSTIC 1 EACH STRIP IN SCH ×2 (05:42→17:41)
[2019-05-22] MEDS: POLYVINYL ALCOHOL 15 ML BOTTLE EACHEYE SCH ×3 (05:42→17:01)
[2019-05-22] MEDS: INSULIN LISPRO/ASPART 100 UNIT/ML CARTRIDGE SQ PRN ×2 (05:43→17:41)
[2019-05-22 07:46] VITALS: BP 97/71
[2019-05-22] MEDS: ACETYLCYSTEINE 10% SOLN 400 MG/4 ML VIAL NEB SCH ×3 (07:57→23:49)
[2019-05-22] MEDS: ASCORBIC ACID 500 MG TABLET GT SCH ×2 (08:06→16:35)
[2019-05-22] MEDS: LEVETIRACETAM SOL (5 ML) 100 MG/ML UDC GT SCH ×2 (08:06→21:27)
[2019-05-22] MEDS: BACLOFEN (10 MG) 10 MG TABLET GT SCH ×2 (08:06→21:27)
[2019-05-22] MEDS: METFORMIN 850 MG TABLET GT SCH ×2 (08:06→16:35)
[2019-05-22] MEDS: POTASSIUM CHLORIDE 20 MEQ/15 ML GT SCH (08:06)
[2019-05-22] MEDS: PROSTAT (PYXIS) 30 ML UDC GT SCH ×2 (08:06→16:35)
[2019-05-22] MEDS: FERROUS SULFATE - FOR SA ONLY 330 MG/7.5 ML UDC GT SCH ×3 (08:06→16:35)
[2019-05-22] MEDS: DOCUSATE SODIUM LIQ 100 MG/10 ML UDC GT SCH ×2 (08:06→16:35)
[2019-05-22] MEDS: HEPARIN SODIUM, PORCINE 5000 UNITS/1 ML VIAL SQ SCH ×2 (08:14→21:28)
[2019-05-22] MEDS: Z GUARD REMEDY 4 OZ OINT TP SCH ×2 (09:00→21:28)
[2019-05-22] MEDS: HYDROGEN PEROXIDE 480 ML BOTTLE TP SCH ×2 (09:00→21:28)
--- NOTE | 2019-05-22 10:00 | NUR ---
Seen by Dr Alvarez. Relayed CXR result to him. He said he will view the CXR. Pt has not had a recent episode of tachypnea or respiratory distress. No new order at this time.
--- NOTE | 2019-05-22 10:05 | NUR ---
RT NOTE: REC'D TRACH PT ON [facility] VENT ON NOTED SETTINGS PER MD ORDERS. TRACH IS PATENT AND SECURED. TRACH CARE DONE. BREASTER DONE. SX DONE PRN. VENT PLUGGED INTO RED OUTLET. ALARMS ON AND AUDIBLE. ERIC ROCHA @ BEDSIDE. NO RESP DISTRESS NOTED AT THIS TIME. WILL CONT TO MONITOR PT. Addendum: 05/22/19 at 1006 by ARIS CRUZ RT Amended: Links added.
[2019-05-22 21:08] VITALS: BP 113/68
[2019-05-22] MEDS: MULTIVIT W/MINERALS 1 TAB TABLET GT SCH (21:28)
[2019-05-22] MEDS: SENNOSIDES 8.6 MG TABLET GT SCH (21:28)
[2019-05-22] MEDS: [UNRECOGNIZED DRUG - OTHER] SQ SCH (21:29)
[2019-05-22] MEDS: BASAGLAR SQ SCH (21:29)
--- NOTE | 2019-05-22 23:53 | NUR ---
RT NO RESP DISTRESS NOTED AT THIS TIME. WILL CONT TO MONITOR PT. Addendum: 05/22/19 at 2763 by ALYSSA CADET RT Amended: Links added.
[2019-05-23] MEDS: POLYVINYL ALCOHOL 15 ML BOTTLE EACHEYE SCH ×5 (00:10→23:14)
[2019-05-23] MEDS: IPRATROPIUM NEB FS 0.5 MG/2.5 ML AMPUL.NEB NEB SCH ×6 (02:44→23:30)
[2019-05-23] MEDS: ALBUTEROL FS 2.5 MG/3 ML VIAL.NEB NEB SCH ×6 (02:44→23:30)
[2019-05-23] MEDS: BLOOD SUGAR DIAGNOSTIC 1 EACH STRIP IN SCH ×2 (05:25→17:40)
[2019-05-23] MEDS: OMEPRAZOLE DR 20 MG GT SCH (05:25)
[2019-05-23] MEDS: INSULIN LISPRO/ASPART 100 UNIT/ML CARTRIDGE SQ PRN ×2 (05:26→17:40)
[2019-05-23 07:46] VITALS: BP 102/69
[2019-05-23] MEDS: ACETYLCYSTEINE 10% SOLN 400 MG/4 ML VIAL NEB SCH ×3 (08:15→23:30)
[2019-05-23] MEDS: HYDROGEN PEROXIDE 480 ML BOTTLE TP SCH ×2 (08:15→21:00)
[2019-05-23] MEDS: BACLOFEN (10 MG) 10 MG TABLET GT SCH ×2 (09:47→20:07)
[2019-05-23] MEDS: POTASSIUM CHLORIDE 20 MEQ/15 ML GT SCH (09:47)
[2019-05-23] MEDS: PROSTAT (PYXIS) 30 ML UDC GT SCH ×2 (09:47→16:18)
[2019-05-23] MEDS: LEVETIRACETAM SOL (5 ML) 100 MG/ML UDC GT SCH ×2 (09:47→20:07)
[2019-05-23] MEDS: DOCUSATE SODIUM LIQ 100 MG/10 ML UDC GT SCH ×2 (09:47→16:18)
[2019-05-23] MEDS: ASCORBIC ACID 500 MG TABLET GT SCH ×2 (09:47→16:18)
[2019-05-23] MEDS: METFORMIN 850 MG TABLET GT SCH ×2 (09:47→16:18)
[2019-05-23] MEDS: FERROUS SULFATE - FOR SA ONLY 330 MG/7.5 ML UDC GT SCH ×3 (09:47→16:18)
[2019-05-23] MEDS: HEPARIN SODIUM, PORCINE 5000 UNITS/1 ML VIAL SQ SCH ×2 (09:48→20:09)
[2019-05-23] MEDS: Z GUARD REMEDY 4 OZ OINT TP SCH ×2 (09:48→20:10)
--- NOTE | 2019-05-23 13:07 | NUR ---
The pt.'s family was not able to attend this month's Family Support Group.
--- NOTE | 2019-05-23 17:02 | NUR ---
RT NOTE PT. RECEIVED ON TRACH ON MECHANICAL VENT. WITH NOTED SETTINGS. VENT IS PLUGGED TO RED OUTLET AND ALARMS ARE SET AND AUDIBLE. TRACH IS PATENT AND SECURED. SPARE TRACH AND BVM IS AT BEDSIDE. NO SOB NOTED. PT. TOLERATED BREATHING TX'S WELL. PT. HAS EQUAL CHEST RISE WITH COARSE BILATERAL BREATH SOUND. SX MODERATE AMOUNT OF GREEN THIN SECRETIONS T/O THE DAY. WILL PASS REPORT TO LINUX SYSTEMS ANALYST. Addendum: 05/23/19 at 1704 by BRANT GARCIA RT Amended: Links added.
[2019-05-23] MEDS: MULTIVIT W/MINERALS 1 TAB TABLET GT SCH (20:07)
--- NOTE | 2019-05-23 20:36 | NUR ---
RECEIVED TRACH PT ON MECH VENT WITH NOTED SETTINGS. PT IS OBTUNDED. TRACH IS PATENT AND SECURED. SOCIAL MEDIA DEVELOPER DONE. Q6 BREATHING TX GIVEN WITH NO ADVERSE REACTION NOTED. SX DONE PRN. VENT PLUGGED INTO RED OUTLET. ALARMS ON AND AUDIBLE. AMBU BAG @ BEDSIDE. NO RESP DISTRESS AT THIS TIME. WILL CONT TO MONITOR PT.
[2019-05-23 21:33] VITALS: BP 105/72
[2019-05-23] MEDS: BASAGLAR SQ SCH (21:34)
[2019-05-23] MEDS: SENNOSIDES 8.6 MG TABLET GT SCH (21:34)
[2019-05-23] MEDS: [UNRECOGNIZED DRUG - OTHER] SQ SCH (21:34)
[2019-05-24] MEDS: IPRATROPIUM NEB FS 0.5 MG/2.5 ML AMPUL.NEB NEB SCH ×5 (02:56→20:03)
[2019-05-24] MEDS: ALBUTEROL FS 2.5 MG/3 ML VIAL.NEB NEB SCH ×5 (02:56→20:03)
[2019-05-24] MEDS: GLUCERNA 1.2 1,000 ML BOTTLE GT PRN (04:29)
[2019-05-24] MEDS: POLYVINYL ALCOHOL 15 ML BOTTLE EACHEYE SCH ×4 (05:59→23:34)
[2019-05-24] MEDS: BLOOD SUGAR DIAGNOSTIC 1 EACH STRIP IN SCH ×2 (05:59→17:28)
[2019-05-24] MEDS: OMEPRAZOLE DR 20 MG GT SCH (05:59)
[2019-05-24] MEDS: INSULIN LISPRO/ASPART 100 UNIT/ML CARTRIDGE SQ PRN ×2 (06:16→17:30)
[2019-05-24] MEDS: ACETYLCYSTEINE 10% SOLN 400 MG/4 ML VIAL NEB SCH ×2 (07:35→14:37)
[2019-05-24 07:57] VITALS: BP 101/70
[2019-05-24] MEDS: HYDROGEN PEROXIDE 480 ML BOTTLE TP SCH ×2 (08:40→20:23)
[2019-05-24] MEDS: FERROUS SULFATE - FOR SA ONLY 330 MG/7.5 ML UDC GT SCH ×3 (09:46→17:28)
[2019-05-24] MEDS: POTASSIUM CHLORIDE 20 MEQ/15 ML GT SCH (09:46)
[2019-05-24] MEDS: METFORMIN 850 MG TABLET GT SCH ×2 (09:46→17:28)
[2019-05-24] MEDS: DOCUSATE SODIUM LIQ 100 MG/10 ML UDC GT SCH ×2 (09:46→17:28)
[2019-05-24] MEDS: LEVETIRACETAM SOL (5 ML) 100 MG/ML UDC GT SCH ×2 (09:46→20:23)
[2019-05-24] MEDS: BACLOFEN (10 MG) 10 MG TABLET GT SCH ×2 (09:46→20:23)
[2019-05-24] MEDS: PROSTAT (PYXIS) 30 ML UDC GT SCH ×2 (09:46→17:28)
[2019-05-24] MEDS: ASCORBIC ACID 500 MG TABLET GT SCH ×2 (09:46→17:28)
[2019-05-24] MEDS: HEPARIN SODIUM, PORCINE 5000 UNITS/1 ML VIAL SQ SCH ×2 (09:47→20:23)
[2019-05-24] MEDS: Z GUARD REMEDY 4 OZ OINT TP SCH ×2 (09:47→20:23)
--- NOTE | 2019-05-24 16:36 | NUR ---
RT NOTE PT. RECEIVED ON TRACH ON MECHANICAL VENT WITH NOTED SETTINGS. VENT IS PLUGGED TO RED OUTLET AND ALARMS ARE SET AND AUDIBLE. SPARE TRACH AND BVM IS AT BEDSIDE. TRACH IS PATENT AND SECURED. PT. HAS EQUAL CHEST RISE WITH COARSE BILATERAL BREATH SOUNDS. SX MODERATE AMOUNT OF THIN GREEN SECRETIONS T/O THE DAY. NO SOB NOTED. PT. TOLERATED BREATHING TX'S WELL. Addendum: 05/24/19 at 1637 by BRANT GARCIA RT Amended: Links added.
[2019-05-24 19:56] VITALS: BP 108/71
[2019-05-24] MEDS: MULTIVIT W/MINERALS 1 TAB TABLET GT SCH (20:23)
[2019-05-24] MEDS: [UNRECOGNIZED DRUG - OTHER] SQ SCH (21:09)
[2019-05-24] MEDS: SENNOSIDES 8.6 MG TABLET GT SCH (21:09)
[2019-05-24] MEDS: BASAGLAR SQ SCH (21:09)
[2019-05-25] MEDS: ALBUTEROL FS 2.5 MG/3 ML VIAL.NEB NEB SCH ×7 (00:26→23:38)
[2019-05-25] MEDS: IPRATROPIUM NEB FS 0.5 MG/2.5 ML AMPUL.NEB NEB SCH ×7 (00:26→23:38)
[2019-05-25] MEDS: ACETYLCYSTEINE 10% SOLN 400 MG/4 ML VIAL NEB SCH ×2 (00:26→07:29)
[2019-05-25] MEDS: POLYETHYLENE GLYCOL 3350 17 GM POWD.PACK GT PRN (05:19)
[2019-05-25] MEDS: OMEPRAZOLE DR 20 MG GT SCH (05:19)
[2019-05-25] MEDS: GLUCERNA 1.2 1,000 ML BOTTLE GT PRN (05:19)
[2019-05-25] MEDS: INSULIN LISPRO/ASPART 100 UNIT/ML CARTRIDGE SQ PRN ×2 (05:19→17:54)
[2019-05-25] MEDS: BLOOD SUGAR DIAGNOSTIC 1 EACH STRIP IN SCH ×2 (05:19→17:53)
[2019-05-25] MEDS: POLYVINYL ALCOHOL 15 ML BOTTLE EACHEYE SCH ×4 (05:19→23:09)
[2019-05-25 07:36] VITALS: BP 116/78
[2019-05-25] MEDS: FERROUS SULFATE - FOR SA ONLY 330 MG/7.5 ML UDC GT SCH ×3 (08:12→16:13)
[2019-05-25] MEDS: BACLOFEN (10 MG) 10 MG TABLET GT SCH ×2 (08:12→20:35)
[2019-05-25] MEDS: METFORMIN 850 MG TABLET GT SCH ×2 (08:12→16:13)
[2019-05-25] MEDS: POTASSIUM CHLORIDE 20 MEQ/15 ML GT SCH (08:12)
[2019-05-25] MEDS: DOCUSATE SODIUM LIQ 100 MG/10 ML UDC GT SCH ×2 (08:12→16:12)
[2019-05-25] MEDS: LEVETIRACETAM SOL (5 ML) 100 MG/ML UDC GT SCH ×2 (08:12→20:35)
[2019-05-25] MEDS: PROSTAT (PYXIS) 30 ML UDC GT SCH ×2 (08:12→16:13)
[2019-05-25] MEDS: ASCORBIC ACID 500 MG TABLET GT SCH ×2 (08:12→16:13)
[2019-05-25] MEDS: HEPARIN SODIUM, PORCINE 5000 UNITS/1 ML VIAL SQ SCH ×2 (08:28→20:35)
[2019-05-25] MEDS: HYDROGEN PEROXIDE 480 ML BOTTLE TP SCH ×2 (09:00→20:36)
[2019-05-25] MEDS: Z GUARD REMEDY 4 OZ OINT TP SCH ×2 (09:00→20:36)
--- NOTE | 2019-05-25 13:30 | NUR ---
IDT meeting held today. Dr Alvarez ordered to DC [place]. Pt has not had recent episodes of respiratory distress and secretions are no longer thick.
--- NOTE | 2019-05-25 15:32 | NUR ---
RT NOTE: REC'D TRACH PT ON [facility] VENT ON NOTED SETTINGS PER MD ORDERS. TRACH IS PATENT AND SECURED. TRACH CARE DONE. PEACE OFFICER DONE. SX DONE PRN. VENT PLUGGED INTO RED OUTLET. ALARMS ON AND AUDIBLE. ERIC BAG @ BEDSIDE. NO RESP DISTRESS NOTED T/O SHIFT. WILL CONT TO MONITOR PT. Addendum: 05/25/19 at 1706 by ANJUM FONG RT Amended: Links added.
[2019-05-25 20:21] VITALS: BP 103/62
[2019-05-25] MEDS: MULTIVIT W/MINERALS 1 TAB TABLET GT SCH (20:35)
[2019-05-25] MEDS: SENNOSIDES 8.6 MG TABLET GT SCH (21:12)
[2019-05-25] MEDS: BASAGLAR SQ SCH (21:12)
[2019-05-25] MEDS: [UNRECOGNIZED DRUG - OTHER] SQ SCH (21:12)
[2019-05-26] MEDS: ALBUTEROL FS 2.5 MG/3 ML VIAL.NEB NEB SCH ×6 (03:27→23:06)
[2019-05-26] MEDS: IPRATROPIUM NEB FS 0.5 MG/2.5 ML AMPUL.NEB NEB SCH ×6 (03:27→23:06)
[2019-05-26] MEDS: GLUCERNA 1.2 1,000 ML BOTTLE GT PRN (05:26)
[2019-05-26] MEDS: BLOOD SUGAR DIAGNOSTIC 1 EACH STRIP IN SCH ×2 (05:26→17:42)
[2019-05-26] MEDS: POLYVINYL ALCOHOL 15 ML BOTTLE EACHEYE SCH ×4 (05:26→23:28)
[2019-05-26] MEDS: OMEPRAZOLE DR 20 MG GT SCH (05:26)
[2019-05-26] MEDS: INSULIN LISPRO/ASPART 100 UNIT/ML CARTRIDGE SQ PRN ×2 (05:27→17:46)
[2019-05-26 08:31] VITALS: BP 102/66
[2019-05-26] MEDS: DOCUSATE SODIUM LIQ 100 MG/10 ML UDC GT SCH ×2 (08:40→17:09)
[2019-05-26] MEDS: FERROUS SULFATE - FOR SA ONLY 330 MG/7.5 ML UDC GT SCH ×3 (08:40→17:09)
[2019-05-26] MEDS: LEVETIRACETAM SOL (5 ML) 100 MG/ML UDC GT SCH ×2 (08:41→20:35)
[2019-05-26] MEDS: BACLOFEN (10 MG) 10 MG TABLET GT SCH ×2 (08:41→20:35)
[2019-05-26] MEDS: METFORMIN 850 MG TABLET GT SCH ×2 (08:41→17:09)
[2019-05-26] MEDS: POTASSIUM CHLORIDE 20 MEQ/15 ML GT SCH (08:41)
[2019-05-26] MEDS: ASCORBIC ACID 500 MG TABLET GT SCH ×2 (08:42→17:16)
[2019-05-26] MEDS: PROSTAT (PYXIS) 30 ML UDC GT SCH ×2 (08:42→17:10)
[2019-05-26] MEDS: Z GUARD REMEDY 4 OZ OINT TP SCH ×2 (08:51→20:36)
[2019-05-26] MEDS: HEPARIN SODIUM, PORCINE 5000 UNITS/1 ML VIAL SQ SCH ×2 (08:51→20:36)
[2019-05-26] MEDS: HYDROGEN PEROXIDE 480 ML BOTTLE TP SCH ×2 (09:00→20:36)
[2019-05-26 19:23] VITALS: BP 112/73
[2019-05-26] MEDS: MULTIVIT W/MINERALS 1 TAB TABLET GT SCH (20:36)
[2019-05-26 20:41] VITALS: BP 112/73
[2019-05-26] MEDS: SENNOSIDES 8.6 MG TABLET GT SCH (21:24)
[2019-05-26] MEDS: BASAGLAR SQ SCH (21:25)
[2019-05-26] MEDS: [UNRECOGNIZED DRUG - OTHER] SQ SCH (21:25)
[2019-05-27] MEDS: ALBUTEROL FS 2.5 MG/3 ML VIAL.NEB NEB SCH ×6 (03:29→23:40)
[2019-05-27] MEDS: IPRATROPIUM NEB FS 0.5 MG/2.5 ML AMPUL.NEB NEB SCH ×6 (03:30→23:40)
[2019-05-27] MEDS: OMEPRAZOLE DR 20 MG GT SCH (05:44)
[2019-05-27] MEDS: BLOOD SUGAR DIAGNOSTIC 1 EACH STRIP IN SCH ×2 (05:44→17:16)
[2019-05-27] MEDS: GLUCERNA 1.2 1,000 ML BOTTLE GT PRN (05:44)
[2019-05-27] MEDS: POLYVINYL ALCOHOL 15 ML BOTTLE EACHEYE SCH ×4 (05:44→23:17)
[2019-05-27] MEDS: INSULIN LISPRO/ASPART 100 UNIT/ML CARTRIDGE SQ PRN ×2 (05:45→17:17)
[2019-05-27 07:57] VITALS: BP 101/70
[2019-05-27] MEDS: DOCUSATE SODIUM LIQ 100 MG/10 ML UDC GT SCH ×2 (08:04→16:53)
[2019-05-27] MEDS: METFORMIN 850 MG TABLET GT SCH ×2 (08:04→16:53)
[2019-05-27] MEDS: FERROUS SULFATE - FOR SA ONLY 330 MG/7.5 ML UDC GT SCH ×3 (08:04→16:53)
[2019-05-27] MEDS: PROSTAT (PYXIS) 30 ML UDC GT SCH ×2 (08:05→16:53)
[2019-05-27] MEDS: ASCORBIC ACID 500 MG TABLET GT SCH ×2 (08:05→16:53)
[2019-05-27] MEDS: BACLOFEN (10 MG) 10 MG TABLET GT SCH ×2 (08:05→21:40)
[2019-05-27] MEDS: POTASSIUM CHLORIDE 20 MEQ/15 ML GT SCH (08:05)
[2019-05-27] MEDS: LEVETIRACETAM SOL (5 ML) 100 MG/ML UDC GT SCH ×2 (08:05→21:40)
[2019-05-27] MEDS: HYDROGEN PEROXIDE 480 ML BOTTLE TP SCH ×2 (09:00→21:06)
[2019-05-27] MEDS: Z GUARD REMEDY 4 OZ OINT TP SCH ×2 (09:00→21:41)
[2019-05-27] MEDS: HEPARIN SODIUM, PORCINE 5000 UNITS/1 ML VIAL SQ SCH ×2 (09:26→21:41)
[2019-05-27 19:48] VITALS: BP 116/74
[2019-05-27] MEDS: MULTIVIT W/MINERALS 1 TAB TABLET GT SCH (21:40)
[2019-05-27] MEDS: SENNOSIDES 8.6 MG TABLET GT SCH (21:41)
[2019-05-27] MEDS: [UNRECOGNIZED DRUG - OTHER] SQ SCH (21:42)
[2019-05-27] MEDS: BASAGLAR SQ SCH (21:42)
[2019-05-28] MEDS: ALBUTEROL FS 2.5 MG/3 ML VIAL.NEB NEB SCH ×6 (03:31→23:30)
[2019-05-28] MEDS: IPRATROPIUM NEB FS 0.5 MG/2.5 ML AMPUL.NEB NEB SCH ×6 (03:31→23:30)
[2019-05-28] MEDS: BLOOD SUGAR DIAGNOSTIC 1 EACH STRIP IN SCH ×2 (06:01→18:40)
[2019-05-28] MEDS: POLYVINYL ALCOHOL 15 ML BOTTLE EACHEYE SCH ×4 (06:01→23:47)
[2019-05-28] MEDS: OMEPRAZOLE DR 20 MG GT SCH (06:01)
[2019-05-28] MEDS: INSULIN LISPRO/ASPART 100 UNIT/ML CARTRIDGE SQ PRN ×2 (06:02→18:41)
[2019-05-28 07:20] VITALS: BP 102/69
--- NOTE | 2019-05-28 08:44 | NUR ---
RT NOTE: REC'D TRACH PT ON [facility] VENT ON NOTED SETTINGS PER MD ORDERS. TRACH IS PATENT AND SECURED. TRACH CARE DONE. DATA ASSISTANT DONE. SX DONE PRN. VENT PLUGGED INTO RED OUTLET. ALARMS ON AND AUDIBLE. ERIC ROCHA @ BEDSIDE. NO RESP DISTRESS NOTED AT THIS TIME. WILL CONT TO MONITOR PT. Addendum: 05/28/19 at 0845 by ARIS CRUZ RT Amended: Links added.
[2019-05-28] MEDS: HYDROGEN PEROXIDE 480 ML BOTTLE TP SCH ×2 (09:00→21:00)
[2019-05-28] MEDS: BACLOFEN (10 MG) 10 MG TABLET GT SCH ×2 (09:59→20:30)
[2019-05-28] MEDS: POTASSIUM CHLORIDE 20 MEQ/15 ML GT SCH (09:59)
[2019-05-28] MEDS: DOCUSATE SODIUM LIQ 100 MG/10 ML UDC GT SCH ×2 (09:59→16:01)
[2019-05-28] MEDS: PROSTAT (PYXIS) 30 ML UDC GT SCH ×2 (09:59→16:01)
[2019-05-28] MEDS: FERROUS SULFATE - FOR SA ONLY 330 MG/7.5 ML UDC GT SCH ×3 (09:59→16:01)
[2019-05-28] MEDS: ASCORBIC ACID 500 MG TABLET GT SCH ×2 (09:59→16:01)
[2019-05-28] MEDS: HEPARIN SODIUM, PORCINE 5000 UNITS/1 ML VIAL SQ SCH ×2 (09:59→20:32)
[2019-05-28] MEDS: METFORMIN 850 MG TABLET GT SCH ×2 (09:59→16:01)
[2019-05-28] MEDS: LEVETIRACETAM SOL (5 ML) 100 MG/ML UDC GT SCH ×2 (09:59→20:30)
[2019-05-28] MEDS: Z GUARD REMEDY 4 OZ OINT TP SCH ×2 (09:59→20:32)
--- NOTE | 2019-05-28 18:22 | NUR ---
Seen by PLUNKET NURSE Mya Rodgers. Clarified Ativan order with her. She said to give Ativan 0.5 mg GT q 8 hours PRN for tachycardia HR greater than 100 or tachypnea.
[2019-05-28 19:53] VITALS: BP 116/78
[2019-05-28] MEDS: MULTIVIT W/MINERALS 1 TAB TABLET GT SCH (20:30)
[2019-05-28] MEDS: SENNOSIDES 8.6 MG TABLET GT SCH (21:49)
[2019-05-28] MEDS: BASAGLAR SQ SCH (21:50)
[2019-05-28] MEDS: [UNRECOGNIZED DRUG - OTHER] SQ SCH (21:50)
[2019-05-29] MEDS: ALBUTEROL FS 2.5 MG/3 ML VIAL.NEB NEB SCH ×5 (03:30→19:30)
[2019-05-29] MEDS: IPRATROPIUM NEB FS 0.5 MG/2.5 ML AMPUL.NEB NEB SCH ×5 (04:29→19:30)
[2019-05-29] MEDS: OMEPRAZOLE DR 20 MG GT SCH (05:03)
[2019-05-29] MEDS: BLOOD SUGAR DIAGNOSTIC 1 EACH STRIP IN SCH ×2 (05:03→18:00)
[2019-05-29] MEDS: POLYVINYL ALCOHOL 15 ML BOTTLE EACHEYE SCH ×3 (05:03→18:00)
[2019-05-29] MEDS: INSULIN LISPRO/ASPART 100 UNIT/ML CARTRIDGE SQ PRN ×2 (05:49→18:01)
[2019-05-29] MEDS: GLUCERNA 1.2 1,000 ML BOTTLE GT PRN (05:49)
[2019-05-29 07:54] VITALS: BP 109/79
[2019-05-29] MEDS: FERROUS SULFATE - FOR SA ONLY 330 MG/7.5 ML UDC GT SCH ×3 (08:10→16:35)
[2019-05-29] MEDS: METFORMIN 850 MG TABLET GT SCH ×2 (08:10→16:35)
[2019-05-29] MEDS: LEVETIRACETAM SOL (5 ML) 100 MG/ML UDC GT SCH ×2 (08:10→20:31)
[2019-05-29] MEDS: DOCUSATE SODIUM LIQ 100 MG/10 ML UDC GT SCH ×2 (08:10→16:35)
[2019-05-29] MEDS: HEPARIN SODIUM, PORCINE 5000 UNITS/1 ML VIAL SQ SCH ×2 (08:12→20:32)
[2019-05-29] MEDS: POTASSIUM CHLORIDE 20 MEQ/15 ML GT SCH (08:12)
[2019-05-29] MEDS: ASCORBIC ACID 500 MG TABLET GT SCH ×2 (08:12→16:35)
[2019-05-29] MEDS: Z GUARD REMEDY 4 OZ OINT TP SCH ×2 (08:12→20:32)
[2019-05-29] MEDS: BACLOFEN (10 MG) 10 MG TABLET GT SCH ×2 (08:12→20:31)
[2019-05-29] MEDS: PROSTAT (PYXIS) 30 ML UDC GT SCH ×2 (08:12→16:35)
--- NOTE | 2019-05-29 08:45 | NUR ---
RT NOTE RECEIVED PT MECHANICALLY VENTILATED VIA CUFFED TRACHEOSTOMY TUBE. CUFF INFLATED. TRACH TUBE MIDLINE AND SECURE. VENTILATOR SETTINGS PRESCRIBED. ALARMS SET PER PROTOCOL AND AUDIBLE. VENT PLUGGED IN TO RED OUTLET. AMBU BAG AND BACK UP TRACH AT BED SIDE. NO DISTRESS NOTED. Addendum: 05/29/19 at 0846 by VERÓNICA JUNIOR RT Amended: Links added.
[2019-05-29] MEDS: HYDROGEN PEROXIDE 480 ML BOTTLE TP SCH ×2 (09:00→21:08)
--- NOTE | 2019-05-29 12:36 | NUR ---
Family Satisfaction Survey: ERVIN provided the pt.'s sister, Tosin with Family Satisfaction Survey and explained the purpose. Tosin stated that she will take survey home so that her children can assist her with filling it out since it is in Englishand she only speaks Pashto. ERVIN informed Tosin that if they cannot assist, SW can also translate the questions for her. Tosin was agreeable to Plan and took took the survey home. SW to collect it when completed.
[2019-05-29 20:23] VITALS: BP 124/76
[2019-05-29] MEDS: MULTIVIT W/MINERALS 1 TAB TABLET GT SCH (20:31)
[2019-05-29] MEDS: SENNOSIDES 8.6 MG TABLET GT SCH (21:48)
[2019-05-29] MEDS: BASAGLAR SQ SCH (21:49)
[2019-05-29] MEDS: [UNRECOGNIZED DRUG - OTHER] SQ SCH (21:49)
[2019-05-30] MEDS: ALBUTEROL FS 2.5 MG/3 ML VIAL.NEB NEB SCH ×7 (00:12→23:45)
[2019-05-30] MEDS: IPRATROPIUM NEB FS 0.5 MG/2.5 ML AMPUL.NEB NEB SCH ×7 (00:12→23:45)
[2019-05-30] MEDS: POLYVINYL ALCOHOL 15 ML BOTTLE EACHEYE SCH ×4 (00:47→17:42)
[2019-05-30] MEDS: BLOOD SUGAR DIAGNOSTIC 1 EACH STRIP IN SCH ×2 (06:05→17:44)
[2019-05-30] MEDS: INSULIN LISPRO/ASPART 100 UNIT/ML CARTRIDGE SQ PRN ×2 (06:05→17:45)
[2019-05-30] MEDS: OMEPRAZOLE DR 20 MG GT SCH (06:05)
[2019-05-30] MEDS: GLUCERNA 1.2 1,000 ML BOTTLE GT PRN (06:05)
[2019-05-30 07:41] VITALS: BP 94/68
[2019-05-30] MEDS: HYDROGEN PEROXIDE 480 ML BOTTLE TP SCH ×2 (07:52→21:07)
[2019-05-30] MEDS: LEVETIRACETAM SOL (5 ML) 100 MG/ML UDC GT SCH ×2 (08:06→20:10)
[2019-05-30] MEDS: PROSTAT (PYXIS) 30 ML UDC GT SCH ×2 (08:06→17:42)
[2019-05-30] MEDS: METFORMIN 850 MG TABLET GT SCH ×2 (08:06→17:42)
[2019-05-30] MEDS: FERROUS SULFATE - FOR SA ONLY 330 MG/7.5 ML UDC GT SCH ×3 (08:06→17:42)
[2019-05-30] MEDS: DOCUSATE SODIUM LIQ 100 MG/10 ML UDC GT SCH ×2 (08:06→17:42)
[2019-05-30] MEDS: ASCORBIC ACID 500 MG TABLET GT SCH ×2 (08:06→17:42)
[2019-05-30] MEDS: BACLOFEN (10 MG) 10 MG TABLET GT SCH ×2 (08:06→20:10)
[2019-05-30] MEDS: POTASSIUM CHLORIDE 20 MEQ/15 ML GT SCH (08:06)
[2019-05-30] MEDS: Z GUARD REMEDY 4 OZ OINT TP SCH ×2 (09:00→20:11)
[2019-05-30] MEDS: HEPARIN SODIUM, PORCINE 5000 UNITS/1 ML VIAL SQ SCH ×2 (09:00→20:11)
--- NOTE | 2019-05-30 13:25 | NUR ---
late entry for 05/23/19 pt noted for shortness of breath and elevated heart rate of 110. ativan 0.5mg given. charge nurse informed.reassessed at 1500. pt relaxed and calm. heart rate at 89bpm. endorsed.
[2019-05-30] MEDS: MULTIVIT W/MINERALS 1 TAB TABLET GT SCH (20:10)
[2019-05-30 21:23] VITALS: BP 113/71
--- NOTE | 2019-05-30 21:41 | NUR ---
RT NOTE PT RECEIVED TRACHED ON MECHANICAL VENTILATION. AMBU BAG/BACK UP TRACH @ BEDSIDE. TX GIVEN, NO ADVERSE REACTIONS NOTED. SX DONE, TRACH SECURED AND PATENT. ALARMS ON AND AUDIBLE. NO SOB NOTED. WILL MONITOR. Addendum: 05/30/19 at 2142 by ABIOLA COMBS RT Amended: Links added.
[2019-05-30] MEDS: SENNOSIDES 8.6 MG TABLET GT SCH (21:42)
[2019-05-30] MEDS: [UNRECOGNIZED DRUG - OTHER] SQ SCH (21:43)
[2019-05-30] MEDS: BASAGLAR SQ SCH (21:43)
[2019-05-31] MEDS: POLYVINYL ALCOHOL 15 ML BOTTLE EACHEYE SCH ×4 (00:27→17:57)
[2019-05-31] MEDS: ALBUTEROL FS 2.5 MG/3 ML VIAL.NEB NEB SCH ×6 (03:42→23:03)
[2019-05-31] MEDS: IPRATROPIUM NEB FS 0.5 MG/2.5 ML AMPUL.NEB NEB SCH ×6 (03:42→23:03)
[2019-05-31] MEDS: BLOOD SUGAR DIAGNOSTIC 1 EACH STRIP IN SCH ×2 (05:55→17:57)
[2019-05-31] MEDS: OMEPRAZOLE DR 20 MG GT SCH (05:55)
[2019-05-31] MEDS: INSULIN LISPRO/ASPART 100 UNIT/ML CARTRIDGE SQ PRN ×2 (05:56→17:58)
[2019-05-31] MEDS: GLUCERNA 1.2 1,000 ML BOTTLE GT PRN (06:10)
[2019-05-31 08:21] VITALS: BP 103/63
[2019-05-31] MEDS: HYDROGEN PEROXIDE 480 ML BOTTLE TP SCH ×2 (09:00→20:04)
[2019-05-31] MEDS: METFORMIN 850 MG TABLET GT SCH ×2 (09:54→16:29)
[2019-05-31] MEDS: ASCORBIC ACID 500 MG TABLET GT SCH ×2 (09:54→16:29)
[2019-05-31] MEDS: DOCUSATE SODIUM LIQ 100 MG/10 ML UDC GT SCH ×2 (09:54→16:29)
[2019-05-31] MEDS: FERROUS SULFATE - FOR SA ONLY 330 MG/7.5 ML UDC GT SCH ×3 (09:54→16:29)
[2019-05-31] MEDS: POTASSIUM CHLORIDE 20 MEQ/15 ML GT SCH (09:54)
[2019-05-31] MEDS: LEVETIRACETAM SOL (5 ML) 100 MG/ML UDC GT SCH ×2 (09:54→21:00)
[2019-05-31] MEDS: BACLOFEN (10 MG) 10 MG TABLET GT SCH ×2 (09:54→21:00)
[2019-05-31] MEDS: PROSTAT (PYXIS) 30 ML UDC GT SCH ×2 (09:54→16:29)
[2019-05-31] MEDS: HEPARIN SODIUM, PORCINE 5000 UNITS/1 ML VIAL SQ SCH ×2 (09:55→21:00)
[2019-05-31] MEDS: Z GUARD REMEDY 4 OZ OINT TP SCH ×2 (09:55→21:00)
[2019-05-31] MEDS: MULTIVIT W/MINERALS 1 TAB TABLET GT SCH (21:00)
[2019-05-31 21:32] VITALS: BP 98/65
[2019-05-31] MEDS: SENNOSIDES 8.6 MG TABLET GT SCH (22:09)
[2019-05-31] MEDS: BASAGLAR SQ SCH (22:12)
[2019-05-31] MEDS: [UNRECOGNIZED DRUG - OTHER] SQ SCH (22:12)
[2019-06-01] MEDS: POLYVINYL ALCOHOL 15 ML BOTTLE EACHEYE SCH ×5 (00:16→23:04)
[2019-06-01] MEDS: IPRATROPIUM NEB FS 0.5 MG/2.5 ML AMPUL.NEB NEB SCH ×6 (02:36→23:24)
[2019-06-01] MEDS: ALBUTEROL FS 2.5 MG/3 ML VIAL.NEB NEB SCH ×6 (02:36→23:24)
[2019-06-01] MEDS: OMEPRAZOLE DR 20 MG GT SCH (05:54)
[2019-06-01] MEDS: BLOOD SUGAR DIAGNOSTIC 1 EACH STRIP IN SCH ×2 (05:54→17:43)
[2019-06-01] MEDS: INSULIN LISPRO/ASPART 100 UNIT/ML CARTRIDGE SQ PRN ×2 (05:55→17:43)
[2019-06-01] MEDS: GLUCERNA 1.2 1,000 ML BOTTLE GT PRN (06:00)
[2019-06-01 07:58] VITALS: BP 99/58
[2019-06-01] MEDS: BACLOFEN (10 MG) 10 MG TABLET GT SCH ×2 (09:00→20:34)
[2019-06-01] MEDS: ASCORBIC ACID 500 MG TABLET GT SCH ×2 (09:00→16:36)
[2019-06-01] MEDS: HEPARIN SODIUM, PORCINE 5000 UNITS/1 ML VIAL SQ SCH ×2 (09:00→20:35)
[2019-06-01] MEDS: FERROUS SULFATE - FOR SA ONLY 330 MG/7.5 ML UDC GT SCH ×3 (09:00→16:36)
[2019-06-01] MEDS: LEVETIRACETAM SOL (5 ML) 100 MG/ML UDC GT SCH ×2 (09:00→20:34)
[2019-06-01] MEDS: PROSTAT (PYXIS) 30 ML UDC GT SCH ×2 (09:00→16:36)
[2019-06-01] MEDS: Z GUARD REMEDY 4 OZ OINT TP SCH ×2 (09:00→20:35)
[2019-06-01] MEDS: HYDROGEN PEROXIDE 480 ML BOTTLE TP SCH ×2 (09:00→20:35)
[2019-06-01] MEDS: DOCUSATE SODIUM LIQ 100 MG/10 ML UDC GT SCH ×2 (09:00→16:36)
[2019-06-01] MEDS: POTASSIUM CHLORIDE 20 MEQ/15 ML GT SCH (09:00)
[2019-06-01] MEDS: METFORMIN 850 MG TABLET GT SCH ×2 (09:00→16:36)
--- NOTE | 2019-06-01 12:05 | NUR ---
RT NOTE RECEIVED PT MECHANICALLY VENTILATED VIA CUFFED TRACHEOSTOMY TUBE. CUFF INFLATED. TRACH TUBE MIDLINE AND SECURE. VENTILATOR SETTINGS PRESCRIBED. ALARMS SET PER PROTOCOL AND AUDIBLE. VENT PLUGGED IN TO RED OUTLET. AMBU BAG AND BACK UP TRACH AT BED SIDE. NO DISTRESS NOTED. Addendum: 06/01/19 at 1205 by VERÓNICA JUNIOR RT Amended: Links added.
[2019-06-01] MEDS: MULTIVIT W/MINERALS 1 TAB TABLET GT SCH (20:34)
[2019-06-01 20:46] VITALS: BP 118/84
[2019-06-01] MEDS: SENNOSIDES 8.6 MG TABLET GT SCH (21:00)
[2019-06-01] MEDS: [UNRECOGNIZED DRUG - OTHER] SQ SCH (21:01)
[2019-06-01] MEDS: BASAGLAR SQ SCH (21:01)
[2019-06-02] MEDS: ALBUTEROL FS 2.5 MG/3 ML VIAL.NEB NEB SCH ×6 (03:25→22:52)
[2019-06-02] MEDS: IPRATROPIUM NEB FS 0.5 MG/2.5 ML AMPUL.NEB NEB SCH ×6 (03:25→22:52)
[2019-06-02] MEDS: GLUCERNA 1.2 1,000 ML BOTTLE GT PRN (05:11)
[2019-06-02] MEDS: INSULIN LISPRO/ASPART 100 UNIT/ML CARTRIDGE SQ PRN ×2 (05:11→17:40)
[2019-06-02] MEDS: BLOOD SUGAR DIAGNOSTIC 1 EACH STRIP IN SCH ×2 (05:11→17:31)
[2019-06-02] MEDS: POLYVINYL ALCOHOL 15 ML BOTTLE EACHEYE SCH ×4 (05:11→23:18)
[2019-06-02] MEDS: OMEPRAZOLE DR 20 MG GT SCH (05:11)
[2019-06-02 08:00] VITALS: BP 86/60
[2019-06-02] MEDS: HYDROGEN PEROXIDE 480 ML BOTTLE TP SCH ×2 (08:51→20:14)
[2019-06-02 09:00] VITALS: BP 101/53
[2019-06-02] MEDS: DOCUSATE SODIUM LIQ 100 MG/10 ML UDC GT SCH ×2 (09:10→16:11)
[2019-06-02] MEDS: POTASSIUM CHLORIDE 20 MEQ/15 ML GT SCH (09:10)
[2019-06-02] MEDS: BACLOFEN (10 MG) 10 MG TABLET GT SCH ×2 (09:10→20:13)
[2019-06-02] MEDS: FERROUS SULFATE - FOR SA ONLY 330 MG/7.5 ML UDC GT SCH ×3 (09:10→16:11)
[2019-06-02] MEDS: METFORMIN 850 MG TABLET GT SCH ×2 (09:10→16:11)
[2019-06-02] MEDS: PROSTAT (PYXIS) 30 ML UDC GT SCH ×2 (09:10→16:11)
[2019-06-02] MEDS: Z GUARD REMEDY 4 OZ OINT TP SCH ×2 (09:10→20:15)
[2019-06-02] MEDS: LEVETIRACETAM SOL (5 ML) 100 MG/ML UDC GT SCH ×2 (09:10→20:13)
[2019-06-02] MEDS: ASCORBIC ACID 500 MG TABLET GT SCH ×2 (09:10→16:11)
[2019-06-02] MEDS: HEPARIN SODIUM, PORCINE 5000 UNITS/1 ML VIAL SQ SCH ×2 (09:21→20:14)
--- NOTE | 2019-06-02 15:46 | NUR ---
RT NOTES TRACH TUBE IN PLACE, PATENT, AND SECURED WITH TRACH TIE. ALARMS ON AND AUDIBLE. VENT PLUGGED IN TO RED OUTLET. AMBU BAG AND BACK UP TRACH BY THE BEDSIDE. PT STABLE AT THIS TIME. WILL CONTINUE TO MONITOR. Addendum: 06/02/19 at 1547 by ADOLFO LU RT Amended: Links added.
[2019-06-02 18:20] VITALS: BP 103/74
[2019-06-02] MEDS: MULTIVIT W/MINERALS 1 TAB TABLET GT SCH (20:13)
--- NOTE | 2019-06-02 20:13 | NUR ---
RECEIVED TRACH PT ON MECH VENT WITH NOTED SETTINGS. PT IS OBTUNDED. TRACH IS PATENT AND SECURED. KNOWLEDGE ARCHITECT DONE. Q6 BREATHING TX GIVEN WITH NO ADVERSE REACTION NOTED. SX DONE PRN. VENT PLUGGED INTO RED OUTLET. ALARMS ON AND AUDIBLE. AMBU BAG @ BEDSIDE. NO RESP DISTRESS AT THIS TIME. WILL CONT TO MONITOR PT T/O SHIFT.
[2019-06-02 20:36] VITALS: BP 109/68
[2019-06-02] MEDS: SENNOSIDES 8.6 MG TABLET GT SCH (21:13)
[2019-06-02] MEDS: [UNRECOGNIZED DRUG - OTHER] SQ SCH (21:14)
[2019-06-02] MEDS: BASAGLAR SQ SCH (21:14)
[2019-06-03] MEDS: IPRATROPIUM NEB FS 0.5 MG/2.5 ML AMPUL.NEB NEB SCH ×6 (02:37→23:19)
[2019-06-03] MEDS: ALBUTEROL FS 2.5 MG/3 ML VIAL.NEB NEB SCH ×6 (02:37→23:19)
[2019-06-03] MEDS: OMEPRAZOLE DR 20 MG GT SCH (05:04)
[2019-06-03] MEDS: POLYVINYL ALCOHOL 15 ML BOTTLE EACHEYE SCH ×3 (05:04→17:10)
[2019-06-03] MEDS: GLUCERNA 1.2 1,000 ML BOTTLE GT PRN (05:05)
[2019-06-03] MEDS: BLOOD SUGAR DIAGNOSTIC 1 EACH STRIP IN SCH ×2 (05:19→17:10)
[2019-06-03] MEDS: INSULIN LISPRO/ASPART 100 UNIT/ML CARTRIDGE SQ PRN ×2 (05:20→17:11)
[2019-06-03 07:22] VITALS: BP 112/70
[2019-06-03] MEDS: HYDROGEN PEROXIDE 480 ML BOTTLE TP SCH ×2 (09:00→19:12)
[2019-06-03] MEDS: POTASSIUM CHLORIDE 20 MEQ/15 ML GT SCH (09:42)
[2019-06-03] MEDS: PROSTAT (PYXIS) 30 ML UDC GT SCH ×2 (09:42→17:10)
[2019-06-03] MEDS: BACLOFEN (10 MG) 10 MG TABLET GT SCH ×2 (09:42→20:55)
[2019-06-03] MEDS: METFORMIN 850 MG TABLET GT SCH ×2 (09:42→17:10)
[2019-06-03] MEDS: DOCUSATE SODIUM LIQ 100 MG/10 ML UDC GT SCH ×2 (09:42→17:10)
[2019-06-03] MEDS: LEVETIRACETAM SOL (5 ML) 100 MG/ML UDC GT SCH ×2 (09:42→20:55)
[2019-06-03] MEDS: FERROUS SULFATE - FOR SA ONLY 330 MG/7.5 ML UDC GT SCH ×3 (09:42→17:10)
[2019-06-03] MEDS: ASCORBIC ACID 500 MG TABLET GT SCH ×2 (09:42→17:10)
[2019-06-03] MEDS: Z GUARD REMEDY 4 OZ OINT TP SCH ×2 (09:43→20:57)
[2019-06-03] MEDS: HEPARIN SODIUM, PORCINE 5000 UNITS/1 ML VIAL SQ SCH ×2 (09:43→20:57)
--- NOTE | 2019-06-03 15:45 | NUR ---
RT NOTE RECEIVED PT MECHANICALLY VENTILATED VIA CUFFED TRACHEOSTOMY TUBE. CUFF INFLATED. TRACH TUBE MIDLINE AND SECURE. VENTILATOR SETTINGS PRESCRIBED. ALARMS SET PER PROTOCOL AND AUDIBLE. VENT PLUGGED IN TO RED OUTLET. AMBU BAG AND BACK UP TRACH AT BED SIDE. NO DISTRESS NOTED. Addendum: 06/03/19 at 1545 by VERÓNICA JUNIOR RT Amended: Links added.
--- NOTE | 2019-06-03 18:00 | NUR ---
Seen and examined by Dr. Dsouza, no new order given.
[2019-06-03 20:33] VITALS: BP 100/73
[2019-06-03] MEDS: MULTIVIT W/MINERALS 1 TAB TABLET GT SCH (20:55)
[2019-06-03] MEDS: SENNOSIDES 8.6 MG TABLET GT SCH (21:04)
[2019-06-03] MEDS: [UNRECOGNIZED DRUG - OTHER] SQ SCH (21:31)
[2019-06-03] MEDS: BASAGLAR SQ SCH (21:31)
[2019-06-04] MEDS: POLYVINYL ALCOHOL 15 ML BOTTLE EACHEYE SCH ×4 (00:42→17:07)
[2019-06-04] MEDS: IPRATROPIUM NEB FS 0.5 MG/2.5 ML AMPUL.NEB NEB SCH ×6 (03:24→23:49)
[2019-06-04] MEDS: ALBUTEROL FS 2.5 MG/3 ML VIAL.NEB NEB SCH ×6 (03:24→23:49)
--- NOTE | 2019-06-04 03:31 | NUR ---
PATIENT RECEIVED ON TRACH TO VENT WITH SETTINGS OF AC 12, 550 VT, 30%, +5. SUCTIONED FOR MINIMAL, THIN, WHITE SECRETIONS. GIVEN IN-LINE TREATMENTS WITH NO ADVERSE REACTIONS. AMBU BAG AT BEDSIDE. VENT ALARM AUDIBLE AND VISIBLE. VENT PLUGGED INTO RED OUTLET. TRACH CARE DONE. Addendum: 06/04/19 at 0333 by WHITNEY KLEIN RT Amended: Links added.
[2019-06-04] MEDS: INSULIN LISPRO/ASPART 100 UNIT/ML CARTRIDGE SQ PRN ×2 (05:42→18:20)
[2019-06-04] MEDS: BLOOD SUGAR DIAGNOSTIC 1 EACH STRIP IN SCH ×2 (05:42→18:18)
[2019-06-04] MEDS: OMEPRAZOLE DR 20 MG GT SCH (05:42)
[2019-06-04] MEDS: GLUCERNA 1.2 1,000 ML BOTTLE GT PRN (05:44)
[2019-06-04] MEDS: DOCUSATE SODIUM LIQ 100 MG/10 ML UDC GT SCH ×2 (08:13→17:07)
[2019-06-04] MEDS: METFORMIN 850 MG TABLET GT SCH ×2 (08:13→17:07)
[2019-06-04] MEDS: LEVETIRACETAM SOL (5 ML) 100 MG/ML UDC GT SCH ×2 (08:13→20:12)
[2019-06-04] MEDS: FERROUS SULFATE - FOR SA ONLY 330 MG/7.5 ML UDC GT SCH ×3 (08:13→17:07)
[2019-06-04] MEDS: POTASSIUM CHLORIDE 20 MEQ/15 ML GT SCH (08:14)
[2019-06-04] MEDS: PROSTAT (PYXIS) 30 ML UDC GT SCH ×2 (08:14→17:07)
[2019-06-04] MEDS: BACLOFEN (10 MG) 10 MG TABLET GT SCH ×2 (08:14→20:12)
[2019-06-04] MEDS: ASCORBIC ACID 500 MG TABLET GT SCH ×2 (08:14→17:07)
[2019-06-04] MEDS: HEPARIN SODIUM, PORCINE 5000 UNITS/1 ML VIAL SQ SCH ×2 (08:16→20:14)
[2019-06-04] MEDS: Z GUARD REMEDY 4 OZ OINT TP SCH ×2 (08:16→20:14)
[2019-06-04] MEDS: ACETAMINOPHEN 650 MG/20 ML UDC- SA PATIENTS-PAIN ONLY GT PRN (08:17)
[2019-06-04] MEDS: HYDROGEN PEROXIDE 480 ML BOTTLE TP SCH ×2 (09:00→21:46)
[2019-06-04 10:48] VITALS: BP 97/70
--- NOTE | 2019-06-04 11:33 | NUR ---
ERVIN contacted the pt.s responsible democrat/ sister, Tosin Horvath [phone] to invite them to the next IDT Plan of Care Conference taking place 06/08/19 from 12:30-1:30pm in the activities room. Call went to voicemail and ERVIN left a detailed message with call back number.
--- NOTE | 2019-06-04 14:44 | NUR ---
SW received completed Family Satisfaction Survey from patients responsible green party, Tosin Horvath.
[2019-06-04 19:40] VITALS: BP 119/82
[2019-06-04] MEDS: MULTIVIT W/MINERALS 1 TAB TABLET GT SCH (20:13)
[2019-06-04] MEDS: SENNOSIDES 8.6 MG TABLET GT SCH (21:12)
[2019-06-04] MEDS: BASAGLAR SQ SCH (21:13)
[2019-06-04] MEDS: [UNRECOGNIZED DRUG - OTHER] SQ SCH (21:13)
[2019-06-05] MEDS: POLYVINYL ALCOHOL 15 ML BOTTLE EACHEYE SCH ×5 (00:41→23:49)
[2019-06-05] MEDS: ALBUTEROL FS 2.5 MG/3 ML VIAL.NEB NEB SCH ×6 (04:10→23:30)
[2019-06-05] MEDS: IPRATROPIUM NEB FS 0.5 MG/2.5 ML AMPUL.NEB NEB SCH ×6 (04:10→23:30)
[2019-06-05] MEDS: GLUCERNA 1.2 1,000 ML BOTTLE GT PRN (04:37)
[2019-06-05] MEDS: INSULIN LISPRO/ASPART 100 UNIT/ML CARTRIDGE SQ PRN (05:10)
[2019-06-05] MEDS: OMEPRAZOLE DR 20 MG GT SCH (05:10)
[2019-06-05] MEDS: BLOOD SUGAR DIAGNOSTIC 1 EACH STRIP IN SCH ×2 (05:10→18:05)
[2019-06-05 07:56] VITALS: BP 108/72
[2019-06-05] MEDS: LEVETIRACETAM SOL (5 ML) 100 MG/ML UDC GT SCH ×2 (08:38→21:09)
[2019-06-05] MEDS: METFORMIN 850 MG TABLET GT SCH ×2 (08:38→16:24)
[2019-06-05] MEDS: HEPARIN SODIUM, PORCINE 5000 UNITS/1 ML VIAL SQ SCH ×2 (08:38→21:09)
[2019-06-05] MEDS: BACLOFEN (10 MG) 10 MG TABLET GT SCH ×2 (08:38→21:09)
[2019-06-05] MEDS: FERROUS SULFATE - FOR SA ONLY 330 MG/7.5 ML UDC GT SCH ×3 (08:38→16:24)
[2019-06-05] MEDS: Z GUARD REMEDY 4 OZ OINT TP SCH ×2 (08:38→21:10)
[2019-06-05] MEDS: PROSTAT (PYXIS) 30 ML UDC GT SCH ×2 (08:38→16:25)
[2019-06-05] MEDS: POTASSIUM CHLORIDE 20 MEQ/15 ML GT SCH (08:38)
[2019-06-05] MEDS: ASCORBIC ACID 500 MG TABLET GT SCH ×2 (08:38→16:26)
[2019-06-05] MEDS: DOCUSATE SODIUM LIQ 100 MG/10 ML UDC GT SCH ×2 (08:38→16:24)
[2019-06-05] MEDS: HYDROGEN PEROXIDE 480 ML BOTTLE TP SCH ×2 (09:00→21:00)
--- NOTE | 2019-06-05 18:10 | NUR ---
RT NOTE PT REMAINS MECHANICALLY VENTILATED VIA CUFFED TRACHEOSTOMY TUBE. CUFF INFLATED. TRACH TUBE MIDLINE AND SECURE. VENTILATOR SETTINGS PRESCRIBED. ALARMS SET PER PROTOCOL AND AUDIBLE. VENT PLUGGED IN TO RED OUTLET. AMBU BAG AND BACK UP TRACH AT BED SIDE. NO DISTRESS NOTED. Addendum: 06/05/19 at 1811 by VERÓNICA JUNIOR RT Amended: Links added.
[2019-06-05 20:18] VITALS: BP 107/80
[2019-06-05] MEDS: MULTIVIT W/MINERALS 1 TAB TABLET GT SCH (21:09)
[2019-06-05] MEDS: SENNOSIDES 8.6 MG TABLET GT SCH (21:10)
[2019-06-05] MEDS: BASAGLAR SQ SCH (22:07)
[2019-06-05] MEDS: [UNRECOGNIZED DRUG - OTHER] SQ SCH (22:07)
[2019-06-06] MEDS: ALBUTEROL FS 2.5 MG/3 ML VIAL.NEB NEB SCH ×6 (03:30→23:53)
[2019-06-06] MEDS: IPRATROPIUM NEB FS 0.5 MG/2.5 ML AMPUL.NEB NEB SCH ×6 (03:30→23:53)
[2019-06-06] MEDS: POLYVINYL ALCOHOL 15 ML BOTTLE EACHEYE SCH ×3 (05:36→17:46)
[2019-06-06] MEDS: OMEPRAZOLE DR 20 MG GT SCH (05:36)
[2019-06-06] MEDS: BLOOD SUGAR DIAGNOSTIC 1 EACH STRIP IN SCH ×2 (06:13→17:46)
[2019-06-06] MEDS: GLUCERNA 1.2 1,000 ML BOTTLE GT PRN (06:13)
[2019-06-06] MEDS: INSULIN LISPRO/ASPART 100 UNIT/ML CARTRIDGE SQ PRN ×2 (06:13→17:57)
[2019-06-06 08:00] VITALS: BP 100/57
[2019-06-06] MEDS: DOCUSATE SODIUM LIQ 100 MG/10 ML UDC GT SCH ×2 (08:48→16:55)
[2019-06-06] MEDS: METFORMIN 850 MG TABLET GT SCH ×2 (08:48→16:55)
[2019-06-06] MEDS: POTASSIUM CHLORIDE 20 MEQ/15 ML GT SCH (08:48)
[2019-06-06] MEDS: FERROUS SULFATE - FOR SA ONLY 330 MG/7.5 ML UDC GT SCH ×3 (08:48→16:55)
[2019-06-06] MEDS: BACLOFEN (10 MG) 10 MG TABLET GT SCH ×2 (08:48→20:51)
[2019-06-06] MEDS: LEVETIRACETAM SOL (5 ML) 100 MG/ML UDC GT SCH ×2 (08:48→20:51)
[2019-06-06] MEDS: PROSTAT (PYXIS) 30 ML UDC GT SCH ×2 (08:50→16:55)
[2019-06-06] MEDS: ASCORBIC ACID 500 MG TABLET GT SCH ×2 (08:50→16:55)
[2019-06-06] MEDS: Z GUARD REMEDY 4 OZ OINT TP SCH ×2 (08:51→20:53)
[2019-06-06] MEDS: HEPARIN SODIUM, PORCINE 5000 UNITS/1 ML VIAL SQ SCH ×2 (08:51→20:53)
[2019-06-06] MEDS: HYDROGEN PEROXIDE 480 ML BOTTLE TP SCH ×2 (09:22→20:10)
[2019-06-06] MEDS ORDERED: FERROUS SULFATE - FOR SA ONLY 330 MG/7.5 ML UDC GT SCH (17:47)
[2019-06-06 20:07] VITALS: BP 134/76
--- NOTE | 2019-06-06 20:16 | NUR ---
PT RCVD TRACH'D ON MECHANICAL VENT WITH CHARTED SETTINGS. PT TUTU TX WELL. SX DONE. PT TRACH IS PATENT AND SECURE. VENT ALARMS APPEAR TO BE FUNCTIONING PROPERLY. VENT PLUGGED INTO RED OUTLET. AMBU BAG AT BEDSIDE. NO SOB NOTED. Addendum: 06/06/19 at 2016 by CHAGO HOLMAN RT Amended: Links added.
[2019-06-06] MEDS: MULTIVIT W/MINERALS 1 TAB TABLET GT SCH (20:54)
[2019-06-06] MEDS: SENNOSIDES 8.6 MG TABLET GT SCH (22:07)
[2019-06-06] MEDS: [UNRECOGNIZED DRUG - OTHER] SQ SCH (22:08)
[2019-06-06] MEDS: BASAGLAR SQ SCH (22:08)
[2019-06-07] MEDS: POLYVINYL ALCOHOL 15 ML BOTTLE EACHEYE SCH ×5 (00:25→23:04)
[2019-06-07] MEDS: GLUCERNA 1.2 1,000 ML BOTTLE GT PRN (02:05)
[2019-06-07] MEDS: IPRATROPIUM NEB FS 0.5 MG/2.5 ML AMPUL.NEB NEB SCH ×6 (03:11→22:49)
[2019-06-07] MEDS: ALBUTEROL FS 2.5 MG/3 ML VIAL.NEB NEB SCH ×6 (03:12→22:49)
[2019-06-07] MEDS: OMEPRAZOLE DR 20 MG GT SCH (05:28)
[2019-06-07] MEDS: BLOOD SUGAR DIAGNOSTIC 1 EACH STRIP IN SCH ×2 (05:29→17:16)
[2019-06-07 07:41] VITALS: BP 108/68
[2019-06-07] MEDS: Z GUARD REMEDY 4 OZ OINT TP SCH ×2 (09:00→21:09)
[2019-06-07] MEDS: POTASSIUM CHLORIDE 20 MEQ/15 ML GT SCH (09:00)
[2019-06-07] MEDS: PROSTAT (PYXIS) 30 ML UDC GT SCH ×2 (09:00→16:56)
[2019-06-07] MEDS: HEPARIN SODIUM, PORCINE 5000 UNITS/1 ML VIAL SQ SCH ×2 (09:00→21:09)
[2019-06-07] MEDS: LEVETIRACETAM SOL (5 ML) 100 MG/ML UDC GT SCH ×2 (09:00→21:08)
[2019-06-07] MEDS: ASCORBIC ACID 500 MG TABLET GT SCH ×2 (09:00→16:56)
[2019-06-07] MEDS: BACLOFEN (10 MG) 10 MG TABLET GT SCH ×2 (09:00→21:08)
[2019-06-07] MEDS: DOCUSATE SODIUM LIQ 100 MG/10 ML UDC GT SCH ×2 (09:00→16:56)
[2019-06-07] MEDS: METFORMIN 850 MG TABLET GT SCH ×2 (09:00→16:56)
[2019-06-07] MEDS: HYDROGEN PEROXIDE 480 ML BOTTLE TP SCH ×2 (09:43→20:28)
--- NOTE | 2019-06-07 09:43 | NUR ---
RT NOTE: REC'D TRACH PT ON [facility] VENT ON NOTED SETTINGS PER MD ORDERS. TRACH IS PATENT AND SECURED. TRACH CARE DONE. HOOK TENDER DONE. SX DONE PRN. VENT PLUGGED INTO RED OUTLET. ALARMS ON AND AUDIBLE. ERIC ROCHA @ BEDSIDE. NO RESP DISTRESS NOTED AT THIS TIME. WILL CONT TO MONITOR PT. Addendum: 06/07/19 at 0943 by ARIS CRUZ RT Amended: Links added.
[2019-06-07] MEDS ORDERED: FERROUS SULFATE - FOR SA ONLY 330 MG/7.5 ML UDC GT SCH (13:00)
[2019-06-07] MEDS: FERROUS SULFATE UDC 300 MG/5 ML UDC GT SCH (16:56)
[2019-06-07] MEDS: INSULIN LISPRO/ASPART 100 UNIT/ML CARTRIDGE SQ PRN (17:18)
[2019-06-07] MEDS: BISACODYL SUPP (10 MG) 10 MG/SUPP.RECT SUPP.RECT RC PRN (18:38)
--- NOTE | 2019-06-07 20:17 | NUR ---
RECEIVED TRACH PT ON MECH VENT WITH NOTED SETTINGS. PT IS OBTUNDED. TRACH IS PATENT AND SECURED. CASE MGR DONE. Q6 BREATHING TX GIVEN WITH NO ADVERSE REACTION NOTED. SX DONE PRN. VENT PLUGGED INTO RED OUTLET. ALARMS ON AND AUDIBLE. AMBU BAG @ BEDSIDE. NO RESP DISTRESS AT THIS TIME. WILL CONT TO MONITOR PT T/O SHIFT.
[2019-06-07 20:21] VITALS: BP 103/71
[2019-06-07] MEDS: MULTIVIT W/MINERALS 1 TAB TABLET GT SCH (21:08)
[2019-06-07] MEDS: SENNOSIDES 8.6 MG TABLET GT SCH (21:09)
[2019-06-07] MEDS: HYDROGEL DRESSING 90 GM TUBE TP SCH (21:09)
[2019-06-07] MEDS: [UNRECOGNIZED DRUG - OTHER] SQ SCH (21:45)
[2019-06-07] MEDS: BASAGLAR SQ SCH (21:45)
[2019-06-08] MEDS: IPRATROPIUM NEB FS 0.5 MG/2.5 ML AMPUL.NEB NEB SCH ×6 (02:47→23:37)
[2019-06-08] MEDS: ALBUTEROL FS 2.5 MG/3 ML VIAL.NEB NEB SCH ×6 (02:47→23:37)
[2019-06-08] MEDS: OMEPRAZOLE DR 20 MG GT SCH (05:15)
[2019-06-08] MEDS: GLUCERNA 1.2 1,000 ML BOTTLE GT PRN ×2 (05:15→23:37)
[2019-06-08] MEDS: POLYVINYL ALCOHOL 15 ML BOTTLE EACHEYE SCH ×4 (05:15→23:37)
[2019-06-08] MEDS: BLOOD SUGAR DIAGNOSTIC 1 EACH STRIP IN SCH ×2 (05:32→18:38)
[2019-06-08] MEDS: INSULIN LISPRO/ASPART 100 UNIT/ML CARTRIDGE SQ PRN ×2 (05:33→18:38)
[2019-06-08] MEDS: HYDROGEN PEROXIDE 480 ML BOTTLE TP SCH ×2 (07:33→21:10)
[2019-06-08 08:00] VITALS: BP 101/67
[2019-06-08] MEDS: POTASSIUM CHLORIDE 20 MEQ/15 ML GT SCH (08:52)
[2019-06-08] MEDS: BACLOFEN (10 MG) 10 MG TABLET GT SCH ×2 (08:52→21:12)
[2019-06-08] MEDS: METFORMIN 850 MG TABLET GT SCH ×2 (08:52→17:00)
[2019-06-08] MEDS: ASCORBIC ACID 500 MG TABLET GT SCH ×2 (08:52→17:00)
[2019-06-08] MEDS: FERROUS SULFATE UDC 300 MG/5 ML UDC GT SCH ×3 (08:52→17:00)
[2019-06-08] MEDS: PROSTAT (PYXIS) 30 ML UDC GT SCH ×2 (08:52→17:00)
[2019-06-08] MEDS: DOCUSATE SODIUM LIQ 100 MG/10 ML UDC GT SCH ×2 (08:52→17:00)
[2019-06-08] MEDS: LEVETIRACETAM SOL (5 ML) 100 MG/ML UDC GT SCH ×2 (08:52→21:12)
[2019-06-08] MEDS: HEPARIN SODIUM, PORCINE 5000 UNITS/1 ML VIAL SQ SCH ×2 (08:54→21:13)
[2019-06-08] MEDS: Z GUARD REMEDY 4 OZ OINT TP SCH ×2 (08:54→21:13)
[2019-06-08] MEDS: HYDROGEL DRESSING 90 GM TUBE TP SCH ×2 (08:54→21:13)
--- NOTE | 2019-06-08 10:30 | NUR ---
Resident noted with sacral stage 2 pressure ulcer, pink wound bed, noted with small amount of serous drainage, no erythema noted on periwound. Seen by wound nurse with new order given. Dr. Dsouza informed. Resident on JEROME mattress. Checked and turned patient side to side every [address] consult requested. Will continue to monitor.
--- NOTE | 2019-06-08 10:38 | NUR ---
WOUND CARE CONSULT: PT SEEN FOR SACRAL AREA. STAGE 2 SACRAL ULCER MEASURES 3CM X 2CM X 0.1CM AND IS RED/PINK IN COLOR WITH SCANT SEROUS DRAINAGE, NO ODOR, NO PERIWOUND ERYTHEMA. CONCUR WITH CURRENT TREATMENT ORDER FOR HYDROGEL AND MEPILEX. OFFLOAD SACRUM AND KEEP SKIN CLEAN AND DRY. DISCUSSED WITH NURSING STAFF. PT IS IMMOBILE AND INCONTINENT AND WAS RECENTLY TREATED FOR PNEUMONIA. WILL FOLLOW. MD IN AGREEMENT WITH PLAN OF CARE.
--- NOTE | 2019-06-08 15:07 | NUR ---
INTERDISCIPLINARY PLAN OF CARE CONFERENCE took place today. The patients responsible constitution party/ Tosin Horvath [phone] was not able to attend or participate via phone conference. Charge nurse discussed recent wound care consult which verified that pt. has stage 2 sacral wound & current treatment order for Hydrogel and Mepilex. Dr. Alvarez and Interdisciplinary team discussed the plan of care in detail. Current orders as well as treatments and medications were reviewed. Please see other disciplines IDT notes for further details.
--- NOTE | 2019-06-08 15:23 | NUR ---
RT NOTE: RECEIVED PT ON ORDERED NOTED AC VENT SETTINGS. NO RESPIRATORY DISTRESS NOTED. TRACH CHECKED SECURE AND PATENT. SXD AND LAVAGED Q ROUND AND NEEDED. TXS GIVEN ORDERED WITH NO ADVERSE REACTIONS NOTED. TRACH CARE DONE. SPARE TRACH AND AMBU BAG @ BEDSIDE. ALARMS CHECKED. VENT PLUGGED INTO RED OUTLET.
[2019-06-08 19:38] VITALS: BP 116/71
[2019-06-08] MEDS: SENNOSIDES 8.6 MG TABLET GT SCH (21:13)
[2019-06-08] MEDS: MULTIVIT W/MINERALS 1 TAB TABLET GT SCH (21:13)
[2019-06-08] MEDS: BASAGLAR SQ SCH (22:06)
[2019-06-08] MEDS: [UNRECOGNIZED DRUG - OTHER] SQ SCH (22:06)
[2019-06-09] MEDS: IPRATROPIUM NEB FS 0.5 MG/2.5 ML AMPUL.NEB NEB SCH ×6 (03:35→22:46)
[2019-06-09] MEDS: ALBUTEROL FS 2.5 MG/3 ML VIAL.NEB NEB SCH ×6 (03:35→22:46)
[2019-06-09] MEDS: POLYVINYL ALCOHOL 15 ML BOTTLE EACHEYE SCH ×3 (05:29→17:32)
[2019-06-09] MEDS: BLOOD SUGAR DIAGNOSTIC 1 EACH STRIP IN SCH ×2 (05:29→17:59)
[2019-06-09] MEDS: OMEPRAZOLE DR 20 MG GT SCH (05:29)
[2019-06-09] MEDS: INSULIN LISPRO/ASPART 100 UNIT/ML CARTRIDGE SQ PRN ×2 (05:30→18:00)
[2019-06-09 07:38] VITALS: BP 98/70
[2019-06-09] MEDS: HYDROGEN PEROXIDE 480 ML BOTTLE TP SCH ×2 (08:16→20:10)
[2019-06-09] MEDS: DOCUSATE SODIUM LIQ 100 MG/10 ML UDC GT SCH ×2 (08:36→16:46)
[2019-06-09] MEDS: FERROUS SULFATE UDC 300 MG/5 ML UDC GT SCH ×3 (08:36→16:46)
[2019-06-09] MEDS: LEVETIRACETAM SOL (5 ML) 100 MG/ML UDC GT SCH ×2 (08:37→20:39)
[2019-06-09] MEDS: POTASSIUM CHLORIDE 20 MEQ/15 ML GT SCH (08:37)
[2019-06-09] MEDS: BACLOFEN (10 MG) 10 MG TABLET GT SCH ×2 (08:37→20:39)
[2019-06-09] MEDS: METFORMIN 850 MG TABLET GT SCH ×2 (08:37→16:48)
[2019-06-09] MEDS: PROSTAT (PYXIS) 30 ML UDC GT SCH ×2 (08:37→16:48)
[2019-06-09] MEDS: ASCORBIC ACID 500 MG TABLET GT SCH ×2 (08:38→16:48)
[2019-06-09] MEDS: ZINC SULFATE 220 MG CAPSULE PO SCH (08:38)
[2019-06-09] MEDS: HEPARIN SODIUM, PORCINE 5000 UNITS/1 ML VIAL SQ SCH ×2 (08:54→20:40)
[2019-06-09] MEDS: Z GUARD REMEDY 4 OZ OINT TP SCH ×2 (09:00→20:40)
[2019-06-09] MEDS: HYDROGEL DRESSING 90 GM TUBE TP SCH ×2 (09:00→20:40)
[2019-06-09] MEDS: GLUCERNA 1.2 1,000 ML BOTTLE GT PRN (17:30)
[2019-06-09 20:00] VITALS: BP 125/79
[2019-06-09] MEDS: MULTIVIT W/MINERALS 1 TAB TABLET GT SCH (20:39)
[2019-06-09] MEDS: SENNOSIDES 8.6 MG TABLET GT SCH (21:32)
[2019-06-09] MEDS: BASAGLAR SQ SCH (21:32)
[2019-06-09] MEDS: [UNRECOGNIZED DRUG - OTHER] SQ SCH (21:32)
[2019-06-10] MEDS: IPRATROPIUM NEB FS 0.5 MG/2.5 ML AMPUL.NEB NEB SCH ×6 (03:21→23:02)
[2019-06-10] MEDS: ALBUTEROL FS 2.5 MG/3 ML VIAL.NEB NEB SCH ×6 (03:21→23:02)
[2019-06-10] MEDS: BLOOD SUGAR DIAGNOSTIC 1 EACH STRIP IN SCH ×2 (05:20→17:31)
[2019-06-10] MEDS: POLYVINYL ALCOHOL 15 ML BOTTLE EACHEYE SCH ×5 (05:20→23:57)
[2019-06-10] MEDS: OMEPRAZOLE DR 20 MG GT SCH (05:20)
[2019-06-10] MEDS: INSULIN LISPRO/ASPART 100 UNIT/ML CARTRIDGE SQ PRN ×2 (05:21→17:32)
[2019-06-10] MEDS: HYDROGEN PEROXIDE 480 ML BOTTLE TP SCH ×2 (07:30→20:54)
[2019-06-10 08:06] VITALS: BP 98/75
[2019-06-10] MEDS: METFORMIN 850 MG TABLET GT SCH ×2 (08:33→16:59)
[2019-06-10] MEDS: LEVETIRACETAM SOL (5 ML) 100 MG/ML UDC GT SCH ×2 (08:33→20:12)
[2019-06-10] MEDS: FERROUS SULFATE UDC 300 MG/5 ML UDC GT SCH ×3 (08:33→16:59)
[2019-06-10] MEDS: DOCUSATE SODIUM LIQ 100 MG/10 ML UDC GT SCH ×2 (08:33→16:59)
[2019-06-10] MEDS: BACLOFEN (10 MG) 10 MG TABLET GT SCH ×2 (08:34→20:12)
[2019-06-10] MEDS: POTASSIUM CHLORIDE 20 MEQ/15 ML GT SCH (08:34)
[2019-06-10] MEDS: PROSTAT (PYXIS) 30 ML UDC GT SCH ×2 (08:34→16:59)
[2019-06-10] MEDS: ZINC SULFATE 220 MG CAPSULE PO SCH (08:35)
[2019-06-10] MEDS: ASCORBIC ACID 500 MG TABLET GT SCH ×2 (08:35→16:59)
[2019-06-10] MEDS: HEPARIN SODIUM, PORCINE 5000 UNITS/1 ML VIAL SQ SCH ×2 (09:00→20:13)
[2019-06-10] MEDS: Z GUARD REMEDY 4 OZ OINT TP SCH ×2 (09:00→20:15)
[2019-06-10] MEDS: HYDROGEL DRESSING 90 GM TUBE TP SCH ×2 (09:00→20:14)
[2019-06-10] MEDS: GLUCERNA 1.2 1,000 ML BOTTLE GT PRN (14:27)
--- NOTE | 2019-06-10 15:39 | NUR ---
RT Pt received trach'd and on [facility] vent w charted settings. Vent is plugged into the red outlet. Alarms are set and audible. Bmv at [facility]. Pt is stable. No respiratory distress or sob noted t/o shift. Will continue to monitor. Addendum: 06/10/19 at 1548 by ANJUM FONG RT Amended: Links added.
[2019-06-10] MEDS: MULTIVIT W/MINERALS 1 TAB TABLET GT SCH (20:12)
--- NOTE | 2019-06-10 20:15 | NUR ---
RECEIVED TRACH PT ON MECH VENT WITH NOTED SETTINGS. PT IS OBTUNDED. TRACH IS PATENT AND SECURED. GLOBAL MARKETING INTERN DONE. Q6 BREATHING TX GIVEN WITH NO ADVERSE REACTION NOTED. SX DONE PRN. VENT PLUGGED INTO RED OUTLET. ALARMS ON AND AUDIBLE. AMBU BAG @ BEDSIDE. NO RESP DISTRESS AT THIS TIME. WILL CONT TO MONITOR PT T/O SHIFT.
[2019-06-10 20:21] VITALS: BP 130/88
[2019-06-10] MEDS: SENNOSIDES 8.6 MG TABLET GT SCH (21:55)
[2019-06-10] MEDS: BASAGLAR SQ SCH (22:30)
[2019-06-10] MEDS: [UNRECOGNIZED DRUG - OTHER] SQ SCH (22:30)
[2019-06-11] MEDS: ALBUTEROL FS 2.5 MG/3 ML VIAL.NEB NEB SCH ×6 (02:57→23:06)
[2019-06-11] MEDS: IPRATROPIUM NEB FS 0.5 MG/2.5 ML AMPUL.NEB NEB SCH ×6 (02:57→23:06)
[2019-06-11] MEDS: GLUCERNA 1.2 1,000 ML BOTTLE GT PRN (05:18)
[2019-06-11] MEDS: POLYVINYL ALCOHOL 15 ML BOTTLE EACHEYE SCH ×3 (05:20→17:45)
[2019-06-11] MEDS: OMEPRAZOLE DR 20 MG GT SCH (05:21)
[2019-06-11] MEDS: INSULIN LISPRO/ASPART 100 UNIT/ML CARTRIDGE SQ PRN ×2 (05:21→17:50)
[2019-06-11] MEDS: BLOOD SUGAR DIAGNOSTIC 1 EACH STRIP IN SCH ×2 (05:21→17:45)
[2019-06-11 07:53] VITALS: BP 111/75
--- NOTE | 2019-06-11 09:08 | NUR ---
RT NOTE: REC'D TRACH PT ON [facility] VENT ON NOTED SETTINGS PER MD ORDERS. TRACH IS PATENT AND SECURED. TRACH CARE DONE. TINNER HELPER DONE. SX DONE PRN. VENT PLUGGED INTO RED OUTLET. ALARMS ON AND AUDIBLE. ERIC ROCHA @ BEDSIDE. NO RESP DISTRESS NOTED AT THIS TIME. WILL CONT TO MONITOR PT. Addendum: 06/11/19 at 0908 by ARIS CRUZ RT Amended: Links added.
[2019-06-11] MEDS: HYDROGEN PEROXIDE 480 ML BOTTLE TP SCH ×2 (09:21→20:18)
[2019-06-11] MEDS: ZINC SULFATE 220 MG CAPSULE PO SCH (09:28)
[2019-06-11] MEDS: PROSTAT (PYXIS) 30 ML UDC GT SCH ×2 (09:28→17:45)
[2019-06-11] MEDS: FERROUS SULFATE UDC 300 MG/5 ML UDC GT SCH ×3 (09:28→17:45)
[2019-06-11] MEDS: POTASSIUM CHLORIDE 20 MEQ/15 ML GT SCH (09:28)
[2019-06-11] MEDS: METFORMIN 850 MG TABLET GT SCH ×2 (09:28→17:45)
[2019-06-11] MEDS: DOCUSATE SODIUM LIQ 100 MG/10 ML UDC GT SCH ×2 (09:28→17:45)
[2019-06-11] MEDS: ASCORBIC ACID 500 MG TABLET GT SCH ×2 (09:28→17:45)
[2019-06-11] MEDS: BACLOFEN (10 MG) 10 MG TABLET GT SCH ×2 (09:28→21:33)
[2019-06-11] MEDS: LEVETIRACETAM SOL (5 ML) 100 MG/ML UDC GT SCH ×2 (09:28→21:33)
[2019-06-11] MEDS: HYDROGEL DRESSING 90 GM TUBE TP SCH ×2 (09:29→21:34)
[2019-06-11] MEDS: Z GUARD REMEDY 4 OZ OINT TP SCH ×2 (09:29→21:34)
[2019-06-11] MEDS: HEPARIN SODIUM, PORCINE 5000 UNITS/1 ML VIAL SQ SCH ×2 (09:29→21:34)
[2019-06-11 20:06] VITALS: BP 121/80
[2019-06-11] MEDS: MULTIVIT W/MINERALS 1 TAB TABLET GT SCH (21:33)
[2019-06-11] MEDS: SENNOSIDES 8.6 MG TABLET GT SCH (21:34)
[2019-06-11] MEDS: [UNRECOGNIZED DRUG - OTHER] SQ SCH (21:37)
[2019-06-11] MEDS: BASAGLAR SQ SCH (21:37)
--- NOTE | 2019-06-11 23:32 | NUR ---
PT RCVD TRACH'D ON MECHANICAL VENT WITH CHARTED SETTINGS. PT TUTU TX WELL. SX DONE. PT TRACH IS PATENT AND SECURE. VENT ALARMS APPEAR TO BE FUNCTIONING PROPERLY. AMBU BAG AT BEDSIDE. VENT PLUGGED INTO RED OUTLET. NO SOB NOTED. Addendum: 06/11/19 at 2332 by CHAGO HOLMAN RT Amended: Links added.
[2019-06-12] MEDS: POLYVINYL ALCOHOL 15 ML BOTTLE EACHEYE SCH ×4 (00:28→17:02)
[2019-06-12] MEDS: ALBUTEROL FS 2.5 MG/3 ML VIAL.NEB NEB SCH ×6 (03:50→23:26)
[2019-06-12] MEDS: IPRATROPIUM NEB FS 0.5 MG/2.5 ML AMPUL.NEB NEB SCH ×6 (03:50→23:26)
[2019-06-12] MEDS: BLOOD SUGAR DIAGNOSTIC 1 EACH STRIP IN SCH ×2 (05:43→17:03)
[2019-06-12] MEDS: OMEPRAZOLE DR 20 MG GT SCH (05:43)
[2019-06-12] MEDS: INSULIN LISPRO/ASPART 100 UNIT/ML CARTRIDGE SQ PRN ×2 (05:44→17:23)
[2019-06-12 07:34] VITALS: BP 95/74
--- NOTE | 2019-06-12 08:47 | NUR ---
WOUND CARE FOLLOW UP: PT SEEN FOR RE-EVALUATION OF SACRAL STAGE 2 ULCER. WOUND MEASURES 3CM X 2CM X 0.1CM AND IS RED AND PINK IN COLOR, SCANT SEROUS DRAINAGE, NO ODOR, NO PERIWOUND ERYHEMA BUT SOME PERIWOUND INCONTINENCE ASSOCIATED SKIN IRRITATION NOTED. PT NOTED TO BE HAVING LOOSE STOOL. RECOMMEND Z GUARD TO PERIWOUND, HYDROGEL TO WOUND, COVER WITH MEPILEX AND OFFLOAD. DISCUSSED WITH NURSING STAFF. WILL FOLLOW. MD IN AGREEMENT WITH PLAN OF CARE.
[2019-06-12] MEDS: FERROUS SULFATE UDC 300 MG/5 ML UDC GT SCH ×3 (09:17→17:02)
[2019-06-12] MEDS: LEVETIRACETAM SOL (5 ML) 100 MG/ML UDC GT SCH ×2 (09:17→21:11)
[2019-06-12] MEDS: BACLOFEN (10 MG) 10 MG TABLET GT SCH ×2 (09:17→21:11)
[2019-06-12] MEDS: DOCUSATE SODIUM LIQ 100 MG/10 ML UDC GT SCH ×2 (09:17→17:02)
[2019-06-12] MEDS: METFORMIN 850 MG TABLET GT SCH ×2 (09:17→17:02)
[2019-06-12] MEDS: PROSTAT (PYXIS) 30 ML UDC GT SCH ×2 (09:18→17:02)
[2019-06-12] MEDS: ZINC SULFATE 220 MG CAPSULE PO SCH (09:18)
[2019-06-12] MEDS: POTASSIUM CHLORIDE 20 MEQ/15 ML GT SCH (09:18)
[2019-06-12] MEDS: HYDROGEL DRESSING 90 GM TUBE TP SCH ×4 (09:18→21:12)
[2019-06-12] MEDS: ASCORBIC ACID 500 MG TABLET GT SCH ×2 (09:18→17:02)
[2019-06-12] MEDS: Z GUARD REMEDY 4 OZ OINT TP SCH ×4 (09:19→21:12)
[2019-06-12] MEDS: HEPARIN SODIUM, PORCINE 5000 UNITS/1 ML VIAL SQ SCH ×2 (09:19→21:12)
[2019-06-12] MEDS: HYDROGEN PEROXIDE 480 ML BOTTLE TP SCH ×2 (09:31→23:25)
--- NOTE | 2019-06-12 09:34 | NUR ---
RT NOTE: REC'D TRACH PT ON [facility] VENT ON NOTED SETTINGS PER MD ORDERS. TRACH IS PATENT AND SECURED. TRACH CARE DONE. [employer] DONE. SX DONE PRN. VENT PLUGGED INTO RED OUTLET. ALARMS ON AND AUDIBLE. ERIC ROCHA @ BEDSIDE. NO RESP DISTRESS NOTED AT THIS TIME. WILL CONT TO MONITOR PT. Addendum: 06/12/19 at 0935 by ARIS CRUZ RT Amended: Links added.
[2019-06-12] MEDS ORDERED: ALBUTEROL FS 2.5 MG/3 ML VIAL.NEB NEB PRN (10:00)
[2019-06-12] MEDS: GLUCERNA 1.2 1,000 ML BOTTLE GT PRN (15:14)
[2019-06-12 20:05] VITALS: BP 91/60
[2019-06-12] MEDS: MULTIVIT W/MINERALS 1 TAB TABLET GT SCH (21:11)
[2019-06-12] MEDS: SENNOSIDES 8.6 MG TABLET GT SCH (21:12)
[2019-06-12] MEDS: [UNRECOGNIZED DRUG - OTHER] SQ SCH (21:13)
[2019-06-12] MEDS: BASAGLAR SQ SCH (21:13)
--- NOTE | 2019-06-12 23:50 | NUR ---
PT RCVD TRACH'D ON MECHANICAL VENT WITH CHARTED SETTINGS. PT TUTU TX WELL. SX DONE. PT TRACH IS PATENT AND SECURE. VENT ALARMS APPEAR TO BE FUNCTIONING PROPERLY. AMBU BAG AT BEDSIDE. VENT PLUGGED INTO RED OUTLET. NO SOB NOTED. Addendum: 06/12/19 at 2350 by CHAGO HOLMAN RT Amended: Links added.
[2019-06-13] MEDS: ALBUTEROL FS 2.5 MG/3 ML VIAL.NEB NEB SCH ×6 (03:21→23:13)
[2019-06-13] MEDS: IPRATROPIUM NEB FS 0.5 MG/2.5 ML AMPUL.NEB NEB SCH ×6 (03:21→23:13)
[2019-06-13] MEDS: BLOOD SUGAR DIAGNOSTIC 1 EACH STRIP IN SCH ×2 (05:49→18:29)
[2019-06-13] MEDS: OMEPRAZOLE DR 20 MG GT SCH (05:49)
[2019-06-13] MEDS: POLYVINYL ALCOHOL 15 ML BOTTLE EACHEYE SCH ×4 (05:49→18:29)
[2019-06-13 07:39] VITALS: BP 101/68
[2019-06-13] MEDS: HYDROGEN PEROXIDE 480 ML BOTTLE TP SCH ×2 (09:00→19:03)
[2019-06-13] MEDS: LEVETIRACETAM SOL (5 ML) 100 MG/ML UDC GT SCH ×2 (09:12→21:31)
[2019-06-13] MEDS: FERROUS SULFATE UDC 300 MG/5 ML UDC GT SCH ×3 (09:12→16:47)
[2019-06-13] MEDS: BACLOFEN (10 MG) 10 MG TABLET GT SCH ×2 (09:12→21:31)
[2019-06-13] MEDS: PROSTAT (PYXIS) 30 ML UDC GT SCH ×2 (09:12→16:47)
[2019-06-13] MEDS: ZINC SULFATE 220 MG CAPSULE PO SCH (09:12)
[2019-06-13] MEDS: ASCORBIC ACID 500 MG TABLET GT SCH ×2 (09:12→16:47)
[2019-06-13] MEDS: METFORMIN 850 MG TABLET GT SCH ×2 (09:12→16:47)
[2019-06-13] MEDS: DOCUSATE SODIUM LIQ 100 MG/10 ML UDC GT SCH ×2 (09:12→16:47)
[2019-06-13] MEDS: POTASSIUM CHLORIDE 20 MEQ/15 ML GT SCH (09:12)
[2019-06-13] MEDS: HYDROGEL DRESSING 90 GM TUBE TP SCH ×4 (09:13→21:32)
[2019-06-13] MEDS: HEPARIN SODIUM, PORCINE 5000 UNITS/1 ML VIAL SQ SCH ×2 (09:13→21:32)
[2019-06-13] MEDS: Z GUARD REMEDY 4 OZ OINT TP SCH ×4 (09:13→21:32)
[2019-06-13] MEDS: GLUCERNA 1.2 1,000 ML BOTTLE GT PRN (12:21)
[2019-06-13] MEDS: INSULIN LISPRO/ASPART 100 UNIT/ML CARTRIDGE SQ PRN (18:30)
--- NOTE | 2019-06-13 18:57 | NUR ---
Seen and examined by Dr. Dsouza and Mya Rodgers, SHIP UN[employer]ER, NNO given. MD made aware that patient has Stage 2 sacral wound, which was seen by wound nurse. Current treatment is hydrogel and Z-guard cream to the qing-wound. No other order given at this time.
[2019-06-13 20:03] VITALS: BP 95/60
[2019-06-13] MEDS: MULTIVIT W/MINERALS 1 TAB TABLET GT SCH (21:31)
[2019-06-13] MEDS: SENNOSIDES 8.6 MG TABLET GT SCH (21:32)
[2019-06-13] MEDS: BASAGLAR SQ SCH (22:23)
[2019-06-13] MEDS: [UNRECOGNIZED DRUG - OTHER] SQ SCH (22:23)
[2019-06-14] MEDS: POLYVINYL ALCOHOL 15 ML BOTTLE EACHEYE SCH ×5 (00:17→23:23)
[2019-06-14] MEDS: ALBUTEROL FS 2.5 MG/3 ML VIAL.NEB NEB SCH ×6 (02:39→23:18)
[2019-06-14] MEDS: IPRATROPIUM NEB FS 0.5 MG/2.5 ML AMPUL.NEB NEB SCH ×6 (02:39→23:18)
[2019-06-14] MEDS: OMEPRAZOLE DR 20 MG GT SCH (05:25)
--- NOTE | 2019-06-14 05:31 | NUR ---
PATIENT RECEIVED ON TRACH TO VENT WITH SETTINGS OF AC 12, 550 VT, 30%, +5. SUCTIONED WITH LAVAGE FOR MINIMAL, THIN, FROTHY-WHITE SECRETIONS. GIVEN IN-LINE TREATMENTS WITH NO ADVERSE REACTIONS. AMBU BAG AT BEDSIDE. VENT ALARM AUDIBLE AND VISIBLE. VENT PLUGGED INTO RED OUTLET. Addendum: 06/14/19 at 0532 by WHITNEY KLEIN RT Amended: Links added.
[2019-06-14] MEDS: BLOOD SUGAR DIAGNOSTIC 1 EACH STRIP IN SCH ×2 (05:50→18:26)
[2019-06-14] MEDS: GLUCERNA 1.2 1,000 ML BOTTLE GT PRN (05:51)
[2019-06-14] MEDS: INSULIN LISPRO/ASPART 100 UNIT/ML CARTRIDGE SQ PRN ×2 (05:53→18:28)
[2019-06-14 07:30] VITALS: BP 100/72
[2019-06-14] MEDS: DOCUSATE SODIUM LIQ 100 MG/10 ML UDC GT SCH ×2 (08:22→16:35)
[2019-06-14] MEDS: HEPARIN SODIUM, PORCINE 5000 UNITS/1 ML VIAL SQ SCH ×2 (08:23→21:21)
[2019-06-14] MEDS: ASCORBIC ACID 500 MG TABLET GT SCH ×2 (08:23→16:35)
[2019-06-14] MEDS: BACLOFEN (10 MG) 10 MG TABLET GT SCH ×2 (08:23→20:57)
[2019-06-14] MEDS: METFORMIN 850 MG TABLET GT SCH ×2 (08:23→16:35)
[2019-06-14] MEDS: POTASSIUM CHLORIDE 20 MEQ/15 ML GT SCH (08:23)
[2019-06-14] MEDS: ZINC SULFATE 220 MG CAPSULE GT SCH (08:23)
[2019-06-14] MEDS: FERROUS SULFATE UDC 300 MG/5 ML UDC GT SCH ×3 (08:23→16:35)
[2019-06-14] MEDS: PROSTAT (PYXIS) 30 ML UDC GT SCH ×2 (08:23→16:35)
[2019-06-14] MEDS: LEVETIRACETAM SOL (5 ML) 100 MG/ML UDC GT SCH ×2 (08:23→20:57)
[2019-06-14] MEDS: HYDROGEN PEROXIDE 480 ML BOTTLE TP SCH ×2 (09:00→20:57)
[2019-06-14] MEDS: Z GUARD REMEDY 4 OZ OINT TP SCH ×4 (09:00→20:58)
[2019-06-14] MEDS: HYDROGEL DRESSING 90 GM TUBE TP SCH ×4 (09:00→20:57)
--- NOTE | 2019-06-14 18:37 | NUR ---
RT NOTE PT REMAINS MECHANICALLY VENTILATED VIA CUFFED TRACHEOSTOMY TUBE. CUFF INFLATED. TRACH TUBE MIDLINE AND SECURE. VENTILATOR SETTINGS PRESCRIBED. ALARMS SET PER PROTOCOL AND AUDIBLE. VENT PLUGGED IN TO RED OUTLET. AMBU BAG AND BACK UP TRACH AT BED SIDE NO DISTRESS NOTED. Addendum: 06/14/19 at 1837 by VERÓNICA JUNIOR RT Amended: Links added.
[2019-06-14 19:49] VITALS: BP 105/69
--- NOTE | 2019-06-14 20:32 | NUR ---
RECEIVED TRACH PT ON [facility] VENT WITH NOTED SETTINGS. PT IS OBTUNDED. TRACH IS PATENT AND SECURED. ESTIMATE CLERK DONE. Q6 BREATHING TX GIVEN WITH NO ADVERSE REACTION NOTED. SX DONE PRN. VENT PLUGGED INTO RED OUTLET. ALARMS ON AND AUDIBLE. AMBU BAG @ BEDSIDE. NO RESP DISTRESS AT THIS TIME. WILL CONT TO MONITOR PT T/O SHIFT.
[2019-06-14] MEDS: MULTIVIT W/MINERALS 1 TAB TABLET GT SCH (20:57)
[2019-06-14] MEDS: SENNOSIDES 8.6 MG TABLET GT SCH (21:09)
[2019-06-14] MEDS: BASAGLAR SQ SCH (21:22)
[2019-06-14] MEDS: [UNRECOGNIZED DRUG - OTHER] SQ SCH (21:22)
[2019-06-15] MEDS: GLUCERNA 1.2 1,000 ML BOTTLE GT PRN ×2 (02:07→21:10)
[2019-06-15] MEDS: IPRATROPIUM NEB FS 0.5 MG/2.5 ML AMPUL.NEB NEB SCH ×6 (03:18→23:38)
[2019-06-15] MEDS: ALBUTEROL FS 2.5 MG/3 ML VIAL.NEB NEB SCH ×6 (03:18→23:38)
[2019-06-15] MEDS: POLYVINYL ALCOHOL 15 ML BOTTLE EACHEYE SCH ×4 (05:29→23:38)
[2019-06-15] MEDS: OMEPRAZOLE DR 20 MG GT SCH (05:41)
[2019-06-15] MEDS: BLOOD SUGAR DIAGNOSTIC 1 EACH STRIP IN SCH ×2 (05:41→17:14)
[2019-06-15] MEDS: INSULIN LISPRO/ASPART 100 UNIT/ML CARTRIDGE SQ PRN ×2 (05:56→18:36)
[2019-06-15] MEDS: DOCUSATE SODIUM LIQ 100 MG/10 ML UDC GT SCH ×2 (08:57→16:19)
[2019-06-15] MEDS: FERROUS SULFATE UDC 300 MG/5 ML UDC GT SCH ×3 (08:58→16:19)
[2019-06-15] MEDS: METFORMIN 850 MG TABLET GT SCH ×2 (08:58→16:19)
[2019-06-15] MEDS: LEVETIRACETAM SOL (5 ML) 100 MG/ML UDC GT SCH ×2 (08:59→21:08)
[2019-06-15] MEDS: BACLOFEN (10 MG) 10 MG TABLET GT SCH ×2 (08:59→21:08)
[2019-06-15] MEDS: PROSTAT (PYXIS) 30 ML UDC GT SCH ×2 (09:01→16:19)
[2019-06-15] MEDS: POTASSIUM CHLORIDE 20 MEQ/15 ML GT SCH (09:01)
[2019-06-15] MEDS: ASCORBIC ACID 500 MG TABLET GT SCH ×2 (09:04→16:19)
[2019-06-15] MEDS: ZINC SULFATE 220 MG CAPSULE GT SCH (09:04)
[2019-06-15] MEDS: HYDROGEL DRESSING 90 GM TUBE TP SCH ×4 (09:05→21:08)
[2019-06-15] MEDS: Z GUARD REMEDY 4 OZ OINT TP SCH ×4 (09:05→21:09)
[2019-06-15] MEDS: HEPARIN SODIUM, PORCINE 5000 UNITS/1 ML VIAL SQ SCH ×2 (09:16→21:08)
[2019-06-15] MEDS: HYDROGEN PEROXIDE 480 ML BOTTLE TP SCH ×2 (09:17→21:24)
[2019-06-15 09:47] VITALS: BP 112/78
--- NOTE | 2019-06-15 17:09 | NUR ---
RECEIVED PT STABLE ON MV, SETTINGS ARE AC 12 550 +5 FIO2 TITRATED TO <= 94% , ALARMS ARE ON AND AUDIBLE, VENT PLUG IN RED OUTLET, BACK UP TRACH AND AMBU BAG IS AT BEDSIDE, TRACH PATENT AND SECURED WILL CONTINUE TO MONITOR Addendum: 06/15/19 at 1711 by RAHEEM BARTH RT Amended: Links added.
[2019-06-15 20:11] VITALS: BP 118/73
[2019-06-15] MEDS: MULTIVIT W/MINERALS 1 TAB TABLET GT SCH (21:08)
[2019-06-15] MEDS: SENNOSIDES 8.6 MG TABLET GT SCH (21:09)
[2019-06-15] MEDS: [UNRECOGNIZED DRUG - OTHER] SQ SCH (22:04)
[2019-06-15] MEDS: BASAGLAR SQ SCH (22:04)
[2019-06-16] MEDS: IPRATROPIUM NEB FS 0.5 MG/2.5 ML AMPUL.NEB NEB SCH ×6 (03:56→23:38)
[2019-06-16] MEDS: ALBUTEROL FS 2.5 MG/3 ML VIAL.NEB NEB SCH ×6 (03:56→23:38)
[2019-06-16] MEDS: POLYVINYL ALCOHOL 15 ML BOTTLE EACHEYE SCH ×4 (05:22→23:42)
[2019-06-16] MEDS: OMEPRAZOLE DR 20 MG GT SCH (05:23)
--- NOTE | 2019-06-16 05:28 | NUR ---
RT Patient remained on continuous vent support on noted vent settings.Breathing treatment was given ,vent alarms are set and audible. Airway patent and secured. Patient stable throughout the shift. Will continue to monitor. Addendum: 06/16/19 at 0529 by EDNA JUNIOR RT Amended: Links added.
[2019-06-16] MEDS: BLOOD SUGAR DIAGNOSTIC 1 EACH STRIP IN SCH ×2 (05:42→17:35)
[2019-06-16] MEDS: INSULIN LISPRO/ASPART 100 UNIT/ML CARTRIDGE SQ PRN ×2 (05:44→17:36)
--- NOTE | 2019-06-16 08:39 | NUR ---
RT NOTE: REC'D TRACH PT ON [facility] VENT ON NOTED SETTINGS PER MD ORDERS. TRACH IS PATENT AND SECURED. TRACH CARE DONE. RELAY ENGINEER DONE. SX DONE PRN. VENT PLUGGED INTO RED OUTLET. ALARMS ON AND AUDIBLE. ERIC ROCHA @ BEDSIDE. NO RESP DISTRESS NOTED AT THIS TIME. WILL CONT TO MONITOR PT. Addendum: 06/16/19 at 0839 by ARIS CRUZ RT Amended: Links added.
[2019-06-16] MEDS: HYDROGEN PEROXIDE 480 ML BOTTLE TP SCH ×2 (09:00→21:06)
[2019-06-16] MEDS: DOCUSATE SODIUM LIQ 100 MG/10 ML UDC GT SCH ×2 (09:41→17:35)
[2019-06-16] MEDS: LEVETIRACETAM SOL (5 ML) 100 MG/ML UDC GT SCH ×2 (09:42→21:31)
[2019-06-16] MEDS: POTASSIUM CHLORIDE 20 MEQ/15 ML GT SCH (09:42)
[2019-06-16] MEDS: BACLOFEN (10 MG) 10 MG TABLET GT SCH ×2 (09:42→21:31)
[2019-06-16] MEDS: FERROUS SULFATE UDC 300 MG/5 ML UDC GT SCH ×3 (09:42→17:35)
[2019-06-16] MEDS: METFORMIN 850 MG TABLET GT SCH ×2 (09:42→17:35)
[2019-06-16] MEDS: HEPARIN SODIUM, PORCINE 5000 UNITS/1 ML VIAL SQ SCH ×2 (09:42→21:32)
[2019-06-16] MEDS: ZINC SULFATE 220 MG CAPSULE GT SCH (09:42)
[2019-06-16] MEDS: ASCORBIC ACID 500 MG TABLET GT SCH ×2 (09:42→17:35)
[2019-06-16] MEDS: PROSTAT (PYXIS) 30 ML UDC GT SCH ×2 (09:42→17:35)
[2019-06-16] MEDS: HYDROGEL DRESSING 90 GM TUBE TP SCH ×4 (09:42→21:32)
[2019-06-16] MEDS: Z GUARD REMEDY 4 OZ OINT TP SCH ×4 (09:43→21:32)
[2019-06-16 12:24] VITALS: BP 107/70
[2019-06-16] MEDS: GLUCERNA 1.2 1,000 ML BOTTLE GT PRN (17:35)
[2019-06-16 20:12] VITALS: BP 116/73
[2019-06-16] MEDS: MULTIVIT W/MINERALS 1 TAB TABLET GT SCH (21:31)
[2019-06-16] MEDS: SENNOSIDES 8.6 MG TABLET GT SCH (21:32)
[2019-06-16] MEDS: [UNRECOGNIZED DRUG - OTHER] SQ SCH (21:33)
[2019-06-16] MEDS: BASAGLAR SQ SCH (21:33)
[2019-06-17] MEDS: ALBUTEROL FS 2.5 MG/3 ML VIAL.NEB NEB SCH ×6 (04:01→23:40)
[2019-06-17] MEDS: IPRATROPIUM NEB FS 0.5 MG/2.5 ML AMPUL.NEB NEB SCH ×6 (04:01→23:40)
[2019-06-17] MEDS: BLOOD SUGAR DIAGNOSTIC 1 EACH STRIP IN SCH ×2 (05:30→17:33)
[2019-06-17] MEDS: POLYVINYL ALCOHOL 15 ML BOTTLE EACHEYE SCH ×4 (05:30→23:47)
[2019-06-17] MEDS: OMEPRAZOLE DR 20 MG GT SCH (05:30)
[2019-06-17] MEDS: INSULIN LISPRO/ASPART 100 UNIT/ML CARTRIDGE SQ PRN ×2 (05:31→17:35)
--- NOTE | 2019-06-17 07:40 | NUR ---
RT Pt received trached on mechanical ventilation with noted settings. Pt is awake but does not follow commands. Vent is plugged into red outlet. No SOB or respiratory distress noted. Addendum: 06/17/19 at 1647 by SAE ERNST RT Amended: Links added.
[2019-06-17 07:44] VITALS: BP 123/74
[2019-06-17] MEDS: HYDROGEN PEROXIDE 480 ML BOTTLE TP SCH ×2 (09:00→21:43)
[2019-06-17] MEDS: ASCORBIC ACID 500 MG TABLET GT SCH ×2 (09:48→17:33)
[2019-06-17] MEDS: PROSTAT (PYXIS) 30 ML UDC GT SCH ×2 (09:48→17:33)
[2019-06-17] MEDS: DOCUSATE SODIUM LIQ 100 MG/10 ML UDC GT SCH ×2 (09:48→17:33)
[2019-06-17] MEDS: METFORMIN 850 MG TABLET GT SCH ×2 (09:48→17:33)
[2019-06-17] MEDS: LEVETIRACETAM SOL (5 ML) 100 MG/ML UDC GT SCH ×2 (09:48→21:13)
[2019-06-17] MEDS: POTASSIUM CHLORIDE 20 MEQ/15 ML GT SCH (09:48)
[2019-06-17] MEDS: BACLOFEN (10 MG) 10 MG TABLET GT SCH ×2 (09:48→21:13)
[2019-06-17] MEDS: ZINC SULFATE 220 MG CAPSULE GT SCH (09:48)
[2019-06-17] MEDS: FERROUS SULFATE UDC 300 MG/5 ML UDC GT SCH ×3 (09:48→17:33)
[2019-06-17] MEDS: Z GUARD REMEDY 4 OZ OINT TP SCH ×4 (09:49→21:14)
[2019-06-17] MEDS: HEPARIN SODIUM, PORCINE 5000 UNITS/1 ML VIAL SQ SCH ×2 (09:49→21:13)
[2019-06-17] MEDS: HYDROGEL DRESSING 90 GM TUBE TP SCH ×4 (09:49→21:13)
[2019-06-17] MEDS: GLUCERNA 1.2 1,000 ML BOTTLE GT PRN (17:34)
[2019-06-17 20:18] VITALS: BP 98/63
[2019-06-17] MEDS: MULTIVIT W/MINERALS 1 TAB TABLET GT SCH (21:13)
[2019-06-17] MEDS: SENNOSIDES 8.6 MG TABLET GT SCH (21:14)
[2019-06-17] MEDS: [UNRECOGNIZED DRUG - OTHER] SQ SCH (21:14)
[2019-06-17] MEDS: BASAGLAR SQ SCH (21:14)
--- NOTE | 2019-06-17 21:49 | NUR ---
RT NOTE Pt rec'd trached on [facility] vent on AC mode. No resp distress or sob noted. Trach is patent and secured. Sx'd for thick mod amt of pale yellow secretions. Alarms are set and audible. Vent plugged into red outlet. Ambu bag bedside. Will continue to monitor. Addendum: 06/17/19 at 2149 by PETER MARADIAGA RT Amended: Links added.
[2019-06-18] MEDS: ALBUTEROL FS 2.5 MG/3 ML VIAL.NEB NEB SCH ×6 (04:27→23:12)
[2019-06-18] MEDS: IPRATROPIUM NEB FS 0.5 MG/2.5 ML AMPUL.NEB NEB SCH ×6 (04:27→23:12)
[2019-06-18] MEDS: BLOOD SUGAR DIAGNOSTIC 1 EACH STRIP IN SCH ×2 (05:36→17:26)
[2019-06-18] MEDS: POLYVINYL ALCOHOL 15 ML BOTTLE EACHEYE SCH ×4 (05:36→23:34)
[2019-06-18] MEDS: OMEPRAZOLE DR 20 MG GT SCH (05:36)
[2019-06-18] MEDS: INSULIN LISPRO/ASPART 100 UNIT/ML CARTRIDGE SQ PRN ×2 (05:37→17:27)
[2019-06-18 07:53] VITALS: BP 140/77
[2019-06-18] MEDS: HYDROGEN PEROXIDE 480 ML BOTTLE TP SCH ×2 (09:00→19:22)
[2019-06-18] MEDS: METFORMIN 850 MG TABLET GT SCH ×2 (09:37→17:26)
[2019-06-18] MEDS: PROSTAT (PYXIS) 30 ML UDC GT SCH ×2 (09:37→17:26)
[2019-06-18] MEDS: ZINC SULFATE 220 MG CAPSULE GT SCH (09:37)
[2019-06-18] MEDS: POTASSIUM CHLORIDE 20 MEQ/15 ML GT SCH (09:37)
[2019-06-18] MEDS: BACLOFEN (10 MG) 10 MG TABLET GT SCH ×2 (09:37→21:19)
[2019-06-18] MEDS: DOCUSATE SODIUM LIQ 100 MG/10 ML UDC GT SCH ×2 (09:37→17:26)
[2019-06-18] MEDS: FERROUS SULFATE UDC 300 MG/5 ML UDC GT SCH ×3 (09:37→17:26)
[2019-06-18] MEDS: LEVETIRACETAM SOL (5 ML) 100 MG/ML UDC GT SCH ×2 (09:37→21:19)
[2019-06-18] MEDS: ASCORBIC ACID 500 MG TABLET GT SCH ×2 (09:37→17:26)
[2019-06-18] MEDS: HEPARIN SODIUM, PORCINE 5000 UNITS/1 ML VIAL SQ SCH ×2 (09:38→21:20)
[2019-06-18] MEDS: Z GUARD REMEDY 4 OZ OINT TP SCH ×4 (09:38→21:20)
[2019-06-18] MEDS: HYDROGEL DRESSING 90 GM TUBE TP SCH ×4 (09:38→21:20)
[2019-06-18 20:08] VITALS: BP 118/87
[2019-06-18] MEDS: MULTIVIT W/MINERALS 1 TAB TABLET GT SCH (21:19)
[2019-06-18] MEDS: SENNOSIDES 8.6 MG TABLET GT SCH (21:20)
[2019-06-18] MEDS: [UNRECOGNIZED DRUG - OTHER] SQ SCH (21:21)
[2019-06-18] MEDS: BASAGLAR SQ SCH (21:21)
[2019-06-19] MEDS: ALBUTEROL FS 2.5 MG/3 ML VIAL.NEB NEB SCH ×6 (03:14→22:51)
[2019-06-19] MEDS: IPRATROPIUM NEB FS 0.5 MG/2.5 ML AMPUL.NEB NEB SCH ×6 (03:14→22:51)
[2019-06-19] MEDS: POLYVINYL ALCOHOL 15 ML BOTTLE EACHEYE SCH ×4 (05:41→23:44)
[2019-06-19] MEDS: BLOOD SUGAR DIAGNOSTIC 1 EACH STRIP IN SCH ×2 (05:41→17:21)
[2019-06-19] MEDS: OMEPRAZOLE DR 20 MG GT SCH (05:41)
[2019-06-19] MEDS: INSULIN LISPRO/ASPART 100 UNIT/ML CARTRIDGE SQ PRN ×2 (05:42→17:22)
[2019-06-19 07:29] VITALS: BP 121/71
[2019-06-19] MEDS: GLUCERNA 1.2 1,000 ML BOTTLE GT PRN (08:14)
[2019-06-19] MEDS: ZINC SULFATE 220 MG CAPSULE GT SCH (08:15)
[2019-06-19] MEDS: POTASSIUM CHLORIDE 20 MEQ/15 ML GT SCH (08:15)
[2019-06-19] MEDS: LEVETIRACETAM SOL (5 ML) 100 MG/ML UDC GT SCH ×2 (08:15→21:15)
[2019-06-19] MEDS: PROSTAT (PYXIS) 30 ML UDC GT SCH ×2 (08:15→17:21)
[2019-06-19] MEDS: METFORMIN 850 MG TABLET GT SCH ×2 (08:15→17:21)
[2019-06-19] MEDS: BACLOFEN (10 MG) 10 MG TABLET GT SCH ×2 (08:15→21:15)
[2019-06-19] MEDS: ASCORBIC ACID 500 MG TABLET GT SCH ×2 (08:15→17:21)
[2019-06-19] MEDS: FERROUS SULFATE UDC 300 MG/5 ML UDC GT SCH ×3 (08:15→17:21)
[2019-06-19] MEDS: DOCUSATE SODIUM LIQ 100 MG/10 ML UDC GT SCH ×2 (08:15→17:00)
[2019-06-19] MEDS: HEPARIN SODIUM, PORCINE 5000 UNITS/1 ML VIAL SQ SCH ×2 (08:16→21:16)
[2019-06-19] MEDS: HYDROGEN PEROXIDE 480 ML BOTTLE TP SCH ×2 (09:21→20:05)
--- NOTE | 2019-06-19 09:25 | NUR ---
RT NOTE: REC'D TRACH PT ON [facility] VENT ON NOTED SETTINGS PER MD ORDERS. TRACH IS PATENT AND SECURED. TRACH CARE DONE. MACHINIST APPRENTICE DONE. SX DONE PRN. VENT PLUGGED INTO RED OUTLET. ALARMS ON AND AUDIBLE. ERIC ROCHA @ BEDSIDE. NO RESP DISTRESS NOTED AT THIS TIME. WILL CONT TO MONITOR PT. Addendum: 06/19/19 at 0925 by ARIS CRUZ RT Amended: Links added.
[2019-06-19] MEDS: HYDROGEL DRESSING 90 GM TUBE TP SCH ×4 (09:40→21:16)
[2019-06-19] MEDS: Z GUARD REMEDY 4 OZ OINT TP SCH ×4 (09:40→21:16)
--- NOTE | 2019-06-19 10:30 | NUR ---
Seen by Dr Alvarez. Received order to administer Chlorhexidine gluconate mouthwash to oral cavity q shift for oral hygiene.
--- NOTE | 2019-06-19 11:10 | NUR ---
WOUND CARE FOLLOW UP: PT SEEN FOR STAGE 2 ULCER TO SACRUM. WOUND MEASURES 3CM X 1.5CM X 0.1CM AND IS PINK IN COLOR WITH SCANT SEROUS DRAINAGE, NO ODOR, NO PERIWOUND ERYTHEMA BUT SOME MOISTURE NOTED TO PERIWOUND AREA. RECOMMEND CONTINUE PRESENT TREATMENT OF Z GUARD TO JOSÉ WOUND, SMALL AMOUNT OF HYDROGEL TO WOUND, COVER WITH MEPILEX AND OFFLOAD. DISCUSSED WITH NURSING STAFF. PT CONTINUES TO BE INCONTINENT OF URINE AND STOOL. SKIN TO BE KEPT CLEAN AND DRY. PT ON FIRST STEP [facility] LOW AIRLOSS MATTRESS. WILL FOLLOW.
--- NOTE | 2019-06-19 20:05 | NUR ---
RT NOTE: RECEIVED TRACH PT ON [facility] VENT ON NOTED SETTINGS PER MD ORDERS. TRACH IS PATENT AND SECURED. TRACH CARE DONE. EMBROIDERY DESIGNER DONE. Q6 BREATHING TX GIVEN WITH NO ADVERSE REACTION NOTED. SX DONE PRN. VENT PLUGGED INTO RED OUTLET. ALARMS ON AND AUDIBLE. AMBU BAG @ BEDSIDE. NO RESP DISTRESS AT THIS TIME. WILL CONT TO MONITOR PT. Addendum: 06/20/19 at 0310 by SHE BYRNE RT Amended: Links added. Addendum: 06/20/19 at 0315 by SHE BYRNE RT RT NOTE: RECEIVED TRACH PT [facility] VENT ON NOTED SETTINGS PER MD ORDERS. TRACH IS PATENT AND SECURED. TRACH CARE DONE. EMBROIDERY DESIGNER DONE. Q4 BREATHING TX GIVEN WITH NO ADVERSE REACTION NOTED. SX DONE PRN. VENT PLUGGED INTO RED OUTLET. ALARMS ON AND AUDIBLE. AMBU BAG @ BEDSIDE. NO RESP DISTRESS AT THIS TIME. WILL CONT TO MONITOR PT.
[2019-06-19 20:32] VITALS: BP 107/68
[2019-06-19] MEDS: CHLORHEXIDINE GLUCONATE 15 ML UDC MM SCH (21:16)
[2019-06-19] MEDS: MULTIVIT W/MINERALS 1 TAB TABLET GT SCH (21:16)
[2019-06-19] MEDS: SENNOSIDES 8.6 MG TABLET GT SCH (21:16)
[2019-06-19] MEDS: BASAGLAR SQ SCH (21:17)
[2019-06-19] MEDS: [UNRECOGNIZED DRUG - OTHER] SQ SCH (21:17)
[2019-06-20] MEDS: IPRATROPIUM NEB FS 0.5 MG/2.5 ML AMPUL.NEB NEB SCH ×6 (02:41→23:10)
[2019-06-20] MEDS: ALBUTEROL FS 2.5 MG/3 ML VIAL.NEB NEB SCH ×6 (02:41→23:10)
[2019-06-20] MEDS: INSULIN LISPRO/ASPART 100 UNIT/ML CARTRIDGE SQ PRN ×2 (05:44→17:19)
[2019-06-20] MEDS: BLOOD SUGAR DIAGNOSTIC 1 EACH STRIP IN SCH ×2 (05:44→17:14)
[2019-06-20] MEDS: POLYVINYL ALCOHOL 15 ML BOTTLE EACHEYE SCH ×3 (05:44→17:00)
[2019-06-20] MEDS: OMEPRAZOLE DR 20 MG GT SCH (05:44)
[2019-06-20 08:00] VITALS: BP 112/78
[2019-06-20] MEDS: HYDROGEN PEROXIDE 480 ML BOTTLE TP SCH ×2 (08:19→21:00)
[2019-06-20] MEDS: FERROUS SULFATE UDC 300 MG/5 ML UDC GT SCH ×3 (08:51→16:39)
[2019-06-20] MEDS: DOCUSATE SODIUM LIQ 100 MG/10 ML UDC GT SCH ×2 (08:51→16:39)
[2019-06-20] MEDS: POTASSIUM CHLORIDE 20 MEQ/15 ML GT SCH (08:53)
[2019-06-20] MEDS: LEVETIRACETAM SOL (5 ML) 100 MG/ML UDC GT SCH ×2 (08:53→20:50)
[2019-06-20] MEDS: BACLOFEN (10 MG) 10 MG TABLET GT SCH ×2 (08:53→20:50)
[2019-06-20] MEDS: ASCORBIC ACID 500 MG TABLET GT SCH ×2 (08:53→16:39)
[2019-06-20] MEDS: METFORMIN 850 MG TABLET GT SCH ×2 (08:53→16:39)
[2019-06-20] MEDS: CHLORHEXIDINE GLUCONATE 15 ML UDC MM SCH ×2 (08:53→20:50)
[2019-06-20] MEDS: ZINC SULFATE 220 MG CAPSULE GT SCH (08:53)
[2019-06-20] MEDS: PROSTAT (PYXIS) 30 ML UDC GT SCH ×2 (08:53→16:39)
[2019-06-20] MEDS: HEPARIN SODIUM, PORCINE 5000 UNITS/1 ML VIAL SQ SCH ×2 (08:55→20:51)
[2019-06-20] MEDS: Z GUARD REMEDY 4 OZ OINT TP SCH ×4 (09:00→20:52)
[2019-06-20] MEDS: HYDROGEL DRESSING 90 GM TUBE TP SCH ×4 (09:00→20:51)
--- NOTE | 2019-06-20 09:10 | NUR ---
RT NOTE: REC'D TRACH PT ON [facility] VENT ON NOTED SETTINGS PER MD ORDERS. TRACH IS PATENT AND SECURED. TRACH CARE DONE. MICROBIOLOGY TECHNICIAN DONE. SX DONE PRN. VENT PLUGGED INTO RED OUTLET. ALARMS ON AND AUDIBLE. ERIC ROCHA @ BEDSIDE. NO RESP DISTRESS NOTED AT THIS TIME. WILL CONT TO MONITOR PT. Addendum: 06/20/19 at 0911 by ARIS CRUZ RT Amended: Links added.
--- NOTE | 2019-06-20 12:24 | NUR ---
Family was not able to attend June Family Support Group today held from 11 am-12 noon. Family will be invited and encouraged to attend next month's Family Support Group.
[2019-06-20 20:05] VITALS: BP 112/81
--- NOTE | 2019-06-20 20:05 | NUR ---
RT NOTE PATIENT RECEIVED TRACH'D IN STABLE CONDITION ON MECHANICAL VENT. PATIENT IS TOLERATING CURRENT ORDERED VENT SETTINGS. NO SIGNS OF RESPIRATORY DISTRESS NOTED. ALARMS ARE SET AND AUDIBLE. MECHANICAL VENT IS PLUGGED INTO RED OUTLET. EMERGENCY EQUIPMENT IS AT PATIENT BEDSIDE. WILL CONTINUE TO MONITOR. Addendum: 06/20/19 at 2046 by EVERARDO SMITH RT Amended: Links added.
[2019-06-20] MEDS: MULTIVIT W/MINERALS 1 TAB TABLET GT SCH (20:50)
[2019-06-20] MEDS: GLUCERNA 1.2 1,000 ML BOTTLE GT PRN (20:52)
[2019-06-20] MEDS: SENNOSIDES 8.6 MG TABLET GT SCH (22:28)
[2019-06-20] MEDS: [UNRECOGNIZED DRUG - OTHER] SQ SCH (22:29)
[2019-06-20] MEDS: BASAGLAR SQ SCH (22:29)
[2019-06-21] MEDS: POLYVINYL ALCOHOL 15 ML BOTTLE EACHEYE SCH ×4 (00:07→17:23)
[2019-06-21] MEDS: IPRATROPIUM NEB FS 0.5 MG/2.5 ML AMPUL.NEB NEB SCH ×6 (03:55→23:34)
[2019-06-21] MEDS: ALBUTEROL FS 2.5 MG/3 ML VIAL.NEB NEB SCH ×6 (03:55→23:34)
[2019-06-21] MEDS: BLOOD SUGAR DIAGNOSTIC 1 EACH STRIP IN SCH ×2 (06:03→17:23)
[2019-06-21] MEDS: OMEPRAZOLE DR 20 MG GT SCH (06:03)
[2019-06-21] MEDS: INSULIN LISPRO/ASPART 100 UNIT/ML CARTRIDGE SQ PRN ×2 (06:04→17:24)
[2019-06-21 08:06] VITALS: BP 113/73
--- NOTE | 2019-06-21 08:58 | NUR ---
RT NOTE: REC'D TRACH PT ON [facility] VENT ON NOTED SETTINGS PER MD ORDERS. TRACH IS PATENT AND SECURED. TRACH CARE DONE. LINOTYPE WORKER DONE. SX DONE PRN. VENT PLUGGED INTO RED OUTLET. ALARMS ON AND AUDIBLE. ERIC ROCHA @ BEDSIDE. NO RESP DISTRESS NOTED AT THIS TIME. WILL CONT TO MONITOR PT. Addendum: 06/21/19 at 0859 by ARIS CRUZ RT Amended: Links added.
[2019-06-21] MEDS: HYDROGEN PEROXIDE 480 ML BOTTLE TP SCH ×2 (09:06→21:21)
[2019-06-21] MEDS: PROSTAT (PYXIS) 30 ML UDC GT SCH ×2 (09:19→17:23)
[2019-06-21] MEDS: BACLOFEN (10 MG) 10 MG TABLET GT SCH ×2 (09:19→21:58)
[2019-06-21] MEDS: DOCUSATE SODIUM LIQ 100 MG/10 ML UDC GT SCH ×2 (09:19→17:23)
[2019-06-21] MEDS: HEPARIN SODIUM, PORCINE 5000 UNITS/1 ML VIAL SQ SCH ×2 (09:19→21:59)
[2019-06-21] MEDS: METFORMIN 850 MG TABLET GT SCH ×2 (09:19→17:23)
[2019-06-21] MEDS: ZINC SULFATE 220 MG CAPSULE GT SCH (09:19)
[2019-06-21] MEDS: FERROUS SULFATE UDC 300 MG/5 ML UDC GT SCH ×3 (09:19→17:23)
[2019-06-21] MEDS: LEVETIRACETAM SOL (5 ML) 100 MG/ML UDC GT SCH ×2 (09:19→21:58)
[2019-06-21] MEDS: POTASSIUM CHLORIDE 20 MEQ/15 ML GT SCH (09:19)
[2019-06-21] MEDS: ASCORBIC ACID 500 MG TABLET GT SCH ×2 (09:19→17:23)
[2019-06-21] MEDS: CHLORHEXIDINE GLUCONATE 15 ML UDC MM SCH ×2 (09:19→21:58)
[2019-06-21] MEDS: HYDROGEL DRESSING 90 GM TUBE TP SCH ×3 (09:20→21:59)
[2019-06-21] MEDS: Z GUARD REMEDY 4 OZ OINT TP SCH ×4 (09:21→21:59)
[2019-06-21] MEDS: GLUCERNA 1.2 1,000 ML BOTTLE GT PRN (17:23)
[2019-06-21 20:02] VITALS: BP 112/70
--- NOTE | 2019-06-21 20:08 | NUR ---
RT NOTE PATIENT RECEIVED TRACH'D ON MECHANICAL VENT IN STABLE CONDITION. PATIENT IS TOLERATING CURRENT ORDERED VENT SETTINGS WELL. NO SIGNS OF RESPIRATORY DISTRESS NOTED. TRACH IS PATENT AND SECURE. ALARMS ARE SET AND AUDIBLE. MECHANICAL VENT IS PLUGGED INTO RED OUTLET. EMERGENCY EQUIPMENT IS AT PATIENT BEDSIDE, WILL CONTINUE TO MONITOR. Addendum: 06/21/19 at 2030 by EVERARDO SMITH RT Amended: Links added.
[2019-06-21] MEDS: MULTIVIT W/MINERALS 1 TAB TABLET GT SCH (21:58)
[2019-06-21] MEDS: SENNOSIDES 8.6 MG TABLET GT SCH (21:59)
[2019-06-21] MEDS: [UNRECOGNIZED DRUG - OTHER] SQ SCH (22:46)
[2019-06-21] MEDS: BASAGLAR SQ SCH (22:46)
[2019-06-22] MEDS: POLYVINYL ALCOHOL 15 ML BOTTLE EACHEYE SCH ×5 (00:05→23:56)
[2019-06-22] MEDS: ALBUTEROL FS 2.5 MG/3 ML VIAL.NEB NEB SCH ×6 (03:37→23:30)
[2019-06-22] MEDS: IPRATROPIUM NEB FS 0.5 MG/2.5 ML AMPUL.NEB NEB SCH ×6 (03:37→23:30)
[2019-06-22] MEDS: BLOOD SUGAR DIAGNOSTIC 1 EACH STRIP IN SCH ×2 (05:25→17:32)
[2019-06-22] MEDS: OMEPRAZOLE DR 20 MG GT SCH (05:25)
[2019-06-22] MEDS: INSULIN LISPRO/ASPART 100 UNIT/ML CARTRIDGE SQ PRN ×2 (05:26→17:33)
--- NOTE | 2019-06-22 07:54 | NUR ---
RT Pt received trach'd and on [facility] vent w charted settings. Vent is plugged into the red outlet. Alarms are set and audible. Bmv at [facility]. Pt is stable. No respiratory distress or sob noted. Will continue to monitor. Addendum: 06/22/19 at 1214 by ANJUM FONG RT Amended: Links added.
[2019-06-22 08:01] VITALS: BP 124/60
[2019-06-22] MEDS: HYDROGEN PEROXIDE 480 ML BOTTLE TP SCH ×2 (08:39→20:09)
[2019-06-22] MEDS: BACLOFEN (10 MG) 10 MG TABLET GT SCH ×2 (08:55→21:14)
[2019-06-22] MEDS: POTASSIUM CHLORIDE 20 MEQ/15 ML GT SCH (08:55)
[2019-06-22] MEDS: ASCORBIC ACID 500 MG TABLET GT SCH ×2 (08:55→16:24)
[2019-06-22] MEDS: LEVETIRACETAM SOL (5 ML) 100 MG/ML UDC GT SCH ×2 (08:55→21:14)
[2019-06-22] MEDS: ZINC SULFATE 220 MG CAPSULE GT SCH (08:55)
[2019-06-22] MEDS: FERROUS SULFATE UDC 300 MG/5 ML UDC GT SCH ×3 (08:55→16:23)
[2019-06-22] MEDS: PROSTAT (PYXIS) 30 ML UDC GT SCH ×2 (08:55→16:23)
[2019-06-22] MEDS: CHLORHEXIDINE GLUCONATE 15 ML UDC MM SCH ×2 (08:55→21:14)
[2019-06-22] MEDS: DOCUSATE SODIUM LIQ 100 MG/10 ML UDC GT SCH ×2 (08:55→16:23)
[2019-06-22] MEDS: METFORMIN 850 MG TABLET GT SCH ×2 (08:55→16:23)
[2019-06-22] MEDS: HEPARIN SODIUM, PORCINE 5000 UNITS/1 ML VIAL SQ SCH ×2 (08:56→21:14)
[2019-06-22] MEDS: HYDROGEL DRESSING 90 GM TUBE TP SCH ×2 (08:58→21:15)
[2019-06-22] MEDS: Z GUARD REMEDY 4 OZ OINT TP SCH ×4 (08:58→21:15)
[2019-06-22] MEDS: GLUCERNA 1.2 1,000 ML BOTTLE GT PRN (13:41)
[2019-06-22 20:29] VITALS: BP 105/71
[2019-06-22] MEDS: MULTIVIT W/MINERALS 1 TAB TABLET GT SCH (21:14)
[2019-06-22] MEDS: SENNOSIDES 8.6 MG TABLET GT SCH (21:15)
[2019-06-22] MEDS: [UNRECOGNIZED DRUG - OTHER] SQ SCH (21:16)
[2019-06-22] MEDS: BASAGLAR SQ SCH (21:16)
[2019-06-23] MEDS: ALBUTEROL FS 2.5 MG/3 ML VIAL.NEB NEB SCH ×6 (03:08→22:33)
[2019-06-23] MEDS: IPRATROPIUM NEB FS 0.5 MG/2.5 ML AMPUL.NEB NEB SCH ×6 (03:08→22:33)
--- NOTE | 2019-06-23 03:10 | NUR ---
RT Pt received trach'd and on [facility] vent w charted settings. Vent is plugged into the red outlet. Alarms are set and audible. Bmv at [facility]. Pt is stable. No respiratory distress or sob noted t/o shift. Will continue to monitor. Addendum: 06/23/19 at 0352 by ANJUM FONG RT Amended: Links added.
[2019-06-23] MEDS: POLYVINYL ALCOHOL 15 ML BOTTLE EACHEYE SCH ×4 (05:15→23:09)
[2019-06-23] MEDS: OMEPRAZOLE DR 20 MG GT SCH (05:16)
[2019-06-23] MEDS: BLOOD SUGAR DIAGNOSTIC 1 EACH STRIP IN SCH ×2 (05:16→17:42)
[2019-06-23] MEDS: INSULIN LISPRO/ASPART 100 UNIT/ML CARTRIDGE SQ PRN ×2 (05:17→17:43)
[2019-06-23] MEDS: HYDROGEN PEROXIDE 480 ML BOTTLE TP SCH ×2 (08:04→20:46)
[2019-06-23 08:05] VITALS: BP 90/59
[2019-06-23] MEDS: FERROUS SULFATE UDC 300 MG/5 ML UDC GT SCH ×3 (08:48→17:34)
[2019-06-23] MEDS: BACLOFEN (10 MG) 10 MG TABLET GT SCH ×2 (08:48→20:45)
[2019-06-23] MEDS: LEVETIRACETAM SOL (5 ML) 100 MG/ML UDC GT SCH ×2 (08:48→20:45)
[2019-06-23] MEDS: METFORMIN 850 MG TABLET GT SCH ×2 (08:48→17:34)
[2019-06-23] MEDS: CHLORHEXIDINE GLUCONATE 15 ML UDC MM SCH ×2 (08:48→20:45)
[2019-06-23] MEDS: Z GUARD REMEDY 4 OZ OINT TP SCH ×4 (08:48→20:46)
[2019-06-23] MEDS: ZINC SULFATE 220 MG CAPSULE GT SCH (08:48)
[2019-06-23] MEDS: ASCORBIC ACID 500 MG TABLET GT SCH ×2 (08:48→17:34)
[2019-06-23] MEDS: POTASSIUM CHLORIDE 20 MEQ/15 ML GT SCH (08:48)
[2019-06-23] MEDS: HEPARIN SODIUM, PORCINE 5000 UNITS/1 ML VIAL SQ SCH ×2 (08:48→20:46)
[2019-06-23] MEDS: PROSTAT (PYXIS) 30 ML UDC GT SCH ×2 (08:48→17:34)
[2019-06-23] MEDS: HYDROGEL DRESSING 90 GM TUBE TP SCH ×2 (08:48→20:46)
[2019-06-23] MEDS: DOCUSATE SODIUM LIQ 100 MG/10 ML UDC GT SCH ×2 (08:48→17:34)
--- NOTE | 2019-06-23 09:22 | NUR ---
RT NOTE: REC'D TRACH PT ON [facility] VENT ON NOTED SETTINGS PER MD ORDERS. TRACH IS PATENT AND SECURED. TRACH CARE DONE. FIRER BOILER DONE. SX DONE PRN. VENT PLUGGED INTO RED OUTLET. ALARMS ON AND AUDIBLE. ERIC ROCHA @ BEDSIDE. NO RESP DISTRESS NOTED AT THIS TIME. WILL CONT TO MONITOR PT. Addendum: 06/23/19 at 0923 by ARIS CRUZ RT Amended: Links added.
[2019-06-23] MEDS: GLUCERNA 1.2 1,000 ML BOTTLE GT PRN (14:43)
[2019-06-23 20:01] VITALS: BP 109/66
[2019-06-23] MEDS: MULTIVIT W/MINERALS 1 TAB TABLET GT SCH (20:45)
[2019-06-23] MEDS: SENNOSIDES 8.6 MG TABLET GT SCH (21:11)
[2019-06-23] MEDS: [UNRECOGNIZED DRUG - OTHER] SQ SCH (21:16)
[2019-06-23] MEDS: BASAGLAR SQ SCH (21:16)
[2019-06-24] MEDS: ALBUTEROL FS 2.5 MG/3 ML VIAL.NEB NEB SCH ×6 (03:24→23:31)
[2019-06-24] MEDS: IPRATROPIUM NEB FS 0.5 MG/2.5 ML AMPUL.NEB NEB SCH ×6 (03:24→23:31)
[2019-06-24] MEDS: POLYVINYL ALCOHOL 15 ML BOTTLE EACHEYE SCH ×3 (05:04→18:12)
[2019-06-24] MEDS: OMEPRAZOLE DR 20 MG GT SCH (05:04)
[2019-06-24] MEDS: INSULIN LISPRO/ASPART 100 UNIT/ML CARTRIDGE SQ PRN ×2 (05:31→18:17)
[2019-06-24] MEDS: BLOOD SUGAR DIAGNOSTIC 1 EACH STRIP IN SCH ×2 (05:31→18:12)
[2019-06-24 07:40] VITALS: BP 106/72
[2019-06-24] MEDS: METFORMIN 850 MG TABLET GT SCH ×2 (08:43→16:22)
[2019-06-24] MEDS: DOCUSATE SODIUM LIQ 100 MG/10 ML UDC GT SCH ×2 (08:43→16:22)
[2019-06-24] MEDS: FERROUS SULFATE UDC 300 MG/5 ML UDC GT SCH ×3 (08:43→17:00)
[2019-06-24] MEDS: LEVETIRACETAM SOL (5 ML) 100 MG/ML UDC GT SCH ×2 (08:43→20:51)
[2019-06-24] MEDS: POTASSIUM CHLORIDE 20 MEQ/15 ML GT SCH (08:44)
[2019-06-24] MEDS: ZINC SULFATE 220 MG CAPSULE GT SCH (08:44)
[2019-06-24] MEDS: BACLOFEN (10 MG) 10 MG TABLET GT SCH ×2 (08:44→20:51)
[2019-06-24] MEDS: ASCORBIC ACID 500 MG TABLET GT SCH ×2 (08:44→16:22)
[2019-06-24] MEDS: CHLORHEXIDINE GLUCONATE 15 ML UDC MM SCH ×2 (08:44→20:51)
[2019-06-24] MEDS: PROSTAT (PYXIS) 30 ML UDC GT SCH ×2 (08:44→16:22)
[2019-06-24] MEDS: HEPARIN SODIUM, PORCINE 5000 UNITS/1 ML VIAL SQ SCH ×2 (08:44→20:52)
[2019-06-24] MEDS: Z GUARD REMEDY 4 OZ OINT TP SCH ×4 (08:45→20:52)
[2019-06-24] MEDS: HYDROGEL DRESSING 90 GM TUBE TP SCH ×2 (08:45→20:52)
[2019-06-24] MEDS: HYDROGEN PEROXIDE 480 ML BOTTLE TP SCH ×2 (09:00→21:16)
[2019-06-24] MEDS: THERAHONEY GEL 1.5 OZ TUBE TP SCH ×2 (10:00→20:52)
[2019-06-24] MEDS: GLUCERNA 1.2 1,000 ML BOTTLE GT PRN (18:14)
[2019-06-24 20:46] VITALS: BP 108/70
[2019-06-24] MEDS: MULTIVIT W/MINERALS 1 TAB TABLET GT SCH (20:51)
[2019-06-24] MEDS: SENNOSIDES 8.6 MG TABLET GT SCH (21:42)
[2019-06-24] MEDS: [UNRECOGNIZED DRUG - OTHER] SQ SCH (21:42)
[2019-06-24] MEDS: BASAGLAR SQ SCH (21:42)
[2019-06-25] MEDS: POLYVINYL ALCOHOL 15 ML BOTTLE EACHEYE SCH ×5 (00:06→23:27)
[2019-06-25] MEDS: GLUCERNA 1.2 1,000 ML BOTTLE GT PRN ×2 (00:39→19:02)
[2019-06-25] MEDS: IPRATROPIUM NEB FS 0.5 MG/2.5 ML AMPUL.NEB NEB SCH ×4 (03:25→20:05)
[2019-06-25] MEDS: ALBUTEROL FS 2.5 MG/3 ML VIAL.NEB NEB SCH ×4 (03:25→20:05)
[2019-06-25] MEDS: OMEPRAZOLE DR 20 MG GT SCH (05:05)
[2019-06-25] MEDS: BLOOD SUGAR DIAGNOSTIC 1 EACH STRIP IN SCH ×2 (05:24→18:35)
[2019-06-25] MEDS: INSULIN LISPRO/ASPART 100 UNIT/ML CARTRIDGE SQ PRN ×2 (05:26→18:40)
[2019-06-25 08:01] VITALS: BP 99/65
[2019-06-25] MEDS: HYDROGEN PEROXIDE 480 ML BOTTLE TP SCH ×2 (08:04→20:05)
[2019-06-25] MEDS: Z GUARD REMEDY 4 OZ OINT TP SCH ×4 (09:00→21:53)
[2019-06-25] MEDS: PROSTAT (PYXIS) 30 ML UDC GT SCH ×2 (09:00→17:00)
[2019-06-25] MEDS: THERAHONEY GEL 1.5 OZ TUBE TP SCH ×2 (09:00→21:53)
[2019-06-25] MEDS: DOCUSATE SODIUM LIQ 100 MG/10 ML UDC GT SCH ×2 (09:00→17:00)
[2019-06-25] MEDS: METFORMIN 850 MG TABLET GT SCH ×2 (09:00→17:00)
[2019-06-25] MEDS: CHLORHEXIDINE GLUCONATE 15 ML UDC MM SCH ×2 (09:00→21:53)
[2019-06-25] MEDS: BACLOFEN (10 MG) 10 MG TABLET GT SCH ×2 (09:00→21:53)
[2019-06-25] MEDS: ASCORBIC ACID 500 MG TABLET GT SCH ×2 (09:00→17:00)
[2019-06-25] MEDS: FERROUS SULFATE UDC 300 MG/5 ML UDC GT SCH ×3 (09:00→17:00)
[2019-06-25] MEDS: POTASSIUM CHLORIDE 20 MEQ/15 ML GT SCH (09:00)
[2019-06-25] MEDS: ZINC SULFATE 220 MG CAPSULE GT SCH (09:00)
[2019-06-25] MEDS: HEPARIN SODIUM, PORCINE 5000 UNITS/1 ML VIAL SQ SCH ×2 (09:00→21:53)
[2019-06-25] MEDS: HYDROGEL DRESSING 90 GM TUBE TP SCH (09:00)
[2019-06-25] MEDS: LEVETIRACETAM SOL (5 ML) 100 MG/ML UDC GT SCH ×2 (09:00→21:53)
--- NOTE | 2019-06-25 11:32 | NUR ---
Director Career Services completed the Social Service portion of Quarter MDS. The patients responsible libertarian is their sister, Tosin Horvath [phone] who is very involved and supportive. The resident is awake, alert, ventilator dependent with trach, and g tube feeding(per EMR): PEG Glucerna 1.2 at 65ml/hr x 18 hr as ordered. (1170ml/day, 1404kcal, 70 gm protein) and Prostat BID TF+ Prostat BID (1604 kcal, 100 gm protein). The patients last dental apt. with was 05/16/19. The pt.s last optometry apt. with was 11/25/18. The pt.s last podiatry visit by Dr. Hart was on 07/02/19.
[2019-06-25] MEDS ORDERED: ALBUTEROL FS 2.5 MG/3 ML VIAL.NEB NEB PRN (15:30)
--- NOTE | 2019-06-25 15:44 | NUR ---
Seen by Dr Alvarez. Received order to change frequencies of Albuterol and Atrovent from q 4 to q 6, and from q 4 PRN to q 6 PRN. No recent episodes of respiratory distress noted.
[2019-06-25] MEDS ORDERED: IPRATROPIUM NEB FS 0.5 MG/2.5 ML AMPUL.NEB IH PRN (16:00)
[2019-06-25 21:26] VITALS: BP 110/78
[2019-06-25] MEDS: SENNOSIDES 8.6 MG TABLET GT SCH (21:53)
[2019-06-25] MEDS: MULTIVIT W/MINERALS 1 TAB TABLET GT SCH (21:53)
[2019-06-25] MEDS: BASAGLAR SQ SCH (21:54)
[2019-06-25] MEDS: [UNRECOGNIZED DRUG - OTHER] SQ SCH (21:54)
[2019-06-26] MEDS: ALBUTEROL FS 2.5 MG/3 ML VIAL.NEB NEB SCH ×4 (01:55→19:52)
[2019-06-26] MEDS: IPRATROPIUM NEB FS 0.5 MG/2.5 ML AMPUL.NEB NEB SCH ×4 (01:55→19:52)
[2019-06-26] MEDS: POLYVINYL ALCOHOL 15 ML BOTTLE EACHEYE SCH ×4 (05:10→23:51)
[2019-06-26] MEDS: OMEPRAZOLE DR 20 MG GT SCH (05:10)
[2019-06-26] MEDS: BLOOD SUGAR DIAGNOSTIC 1 EACH STRIP IN SCH ×2 (05:38→18:12)
[2019-06-26] MEDS: INSULIN LISPRO/ASPART 100 UNIT/ML CARTRIDGE SQ PRN ×2 (05:39→18:12)
[2019-06-26] MEDS: DOCUSATE SODIUM LIQ 100 MG/10 ML UDC GT SCH ×2 (08:19→17:36)
[2019-06-26] MEDS: POTASSIUM CHLORIDE 20 MEQ/15 ML GT SCH (08:20)
[2019-06-26] MEDS: ASCORBIC ACID 500 MG TABLET GT SCH ×2 (08:20→17:36)
[2019-06-26] MEDS: FERROUS SULFATE UDC 300 MG/5 ML UDC GT SCH ×3 (08:20→17:36)
[2019-06-26] MEDS: HEPARIN SODIUM, PORCINE 5000 UNITS/1 ML VIAL SQ SCH ×2 (08:20→20:57)
[2019-06-26] MEDS: CHLORHEXIDINE GLUCONATE 15 ML UDC MM SCH ×2 (08:20→21:58)
[2019-06-26] MEDS: BACLOFEN (10 MG) 10 MG TABLET GT SCH ×2 (08:20→20:53)
[2019-06-26] MEDS: ZINC SULFATE 220 MG CAPSULE GT SCH (08:20)
[2019-06-26] MEDS: METFORMIN 850 MG TABLET GT SCH ×2 (08:20→17:36)
[2019-06-26] MEDS: PROSTAT (PYXIS) 30 ML UDC GT SCH ×2 (08:20→17:36)
[2019-06-26] MEDS: LEVETIRACETAM SOL (5 ML) 100 MG/ML UDC GT SCH ×2 (08:20→20:53)
[2019-06-26] MEDS: Z GUARD REMEDY 4 OZ OINT TP SCH ×4 (09:00→20:58)
[2019-06-26] MEDS: THERAHONEY GEL 1.5 OZ TUBE TP SCH ×2 (09:00→20:58)
[2019-06-26] MEDS: HYDROGEN PEROXIDE 480 ML BOTTLE TP SCH ×2 (09:26→21:00)
--- NOTE | 2019-06-26 10:07 | NUR ---
WOUND CARE FOLLOW UP: SACRAL WOUND NOW FOLLOWED BY PLASTIC SURGERY TEAM. DEFER TO SURGICAL TEAM FOR WOUND TREATMENT PLAN. SUPPORT SERVICES REP AWARE. WILL SEE PRN. ALL SKIN PROTECTION MEASURES IN PLACE AND DISCUSSED WITH NURSING STAFF. PT ON FIRST STEP [facility] AIRLOSS MATTRESS.
--- NOTE | 2019-06-26 10:28 | NUR ---
RT NOTE: REC'D TRACH PT ON [facility] VENT ON NOTED SETTINGS PER MD ORDERS. TRACH IS PATENT AND SECURED. TRACH CARE DONE. CARGO SERVICE SUPERVISOR DONE. SX DONE PRN. VENT PLUGGED INTO RED OUTLET. ALARMS ON AND AUDIBLE. ERIC ROCHA @ BEDSIDE. NO RESP DISTRESS NOTED AT THIS TIME. WILL CONT TO MONITOR PT. Addendum: 06/26/19 at 1028 by ARIS CRUZ RT Amended: Links added.
[2019-06-26] MEDS ORDERED: DIATR MEGLU/DIATRIZOATE SODIUM 30 ML BOTTLE (GASTROGRAPHIN) ONE (10:45)
[2019-06-26 11:51] VITALS: BP 149/95
--- NOTE | 2019-06-26 15:28 | NUR ---
Late entry for 06/25/19 Sacral wound seen by Dr Nicanor Kong. He said to continue current treatment of Therahoney and calcium alginate.
--- NOTE | 2019-06-26 15:31 | NUR ---
Dr Dsouza ordered to place Sinha catheter on pt. He also ordered CBC, CMP, and dietary consult.
[2019-06-26 16:46] LABS: BASOPHILS # (AUTO) 0.1 /CMM (0.0-0.2); BASOPHILS % (AUTO) 1.1 % (0.0-2.0); EOSINOPHILS % (AUTO) 3.2 % (0.0-6.0); HEMATOCRIT 32 % (33-45); HEMOGLOBIN 11.3 g/dL (11.5-14.8); LYMPHOCYTES # (AUTO) 2.6 /CMM (0.8-4.8); MEAN CORPUSCULAR HGB CONC 36 g/dl (31.0-36.0); MEAN CORPUSCULAR VOLUME 91 fL (82-100); MONOCYTES # (AUTO) 0.4 /CMM (0.1-1.30); MONOCYTES % (AUTO) 4.6 % (2.0-12.0); NEUTROPHILS # (AUTO) 5.8 /CMM (1.8-8.9); NEUTROPHILS % (AUTO) 63.1 % (43.0-81.0); PLATELET COUNT (AUTO) 349 /CMM (150-450); RED BLOOD CELL COUNT(AUTO) 3.52 MIL/uL (4.0-5.2); WHITE BLOOD COUNT (AUTO) 9.2 K/uL (4.3-11.0)
[2019-06-26 17:11] LABS: ALBUMIN 3.1 g/dL (3.4-5.0); BILIRUBIN,TOTAL 0.6 mg/dL (0.2-1.0); CALCIUM, SERUM 8.7 mg/dL (8.5-10.1)
[2019-06-26 17:55] LABS: CREATININE 0.9 mg/dL (0.6-1.3); POTASSIUM 4.5 mmol/L (3.5-5.1)
[2019-06-26] MEDS: GLUCERNA 1.2 1,000 ML BOTTLE GT PRN (18:54)
[2019-06-26 19:16] LABS: BAND % (MANUAL) 6 % (0.0-5.0); EOSINOPHILS % (MANUAL) 2 % (0-4); LYMPHOCYTES % (MANUAL) 28 % (16-48); MONOCYTES % (MANUAL) 4 % (0-11.0); NEUTROPHILS % (MANUAL) 60 (42-76)
[2019-06-26 20:12] VITALS: BP 104/69
[2019-06-26] MEDS: MULTIVIT W/MINERALS 1 TAB TABLET GT SCH (20:54)
[2019-06-26] MEDS: SENNOSIDES 8.6 MG TABLET GT SCH (21:58)
[2019-06-26] MEDS: [UNRECOGNIZED DRUG - OTHER] SQ SCH (22:31)
[2019-06-26] MEDS: BASAGLAR SQ SCH (22:31)
[2019-06-27] MEDS: ALBUTEROL FS 2.5 MG/3 ML VIAL.NEB NEB SCH ×4 (02:11→19:59)
[2019-06-27] MEDS: IPRATROPIUM NEB FS 0.5 MG/2.5 ML AMPUL.NEB NEB SCH ×4 (02:11→19:59)
[2019-06-27] MEDS: POLYVINYL ALCOHOL 15 ML BOTTLE EACHEYE SCH ×4 (05:43→23:22)
[2019-06-27] MEDS: OMEPRAZOLE DR 20 MG GT SCH (05:43)
[2019-06-27] MEDS: BLOOD SUGAR DIAGNOSTIC 1 EACH STRIP IN SCH ×2 (05:44→17:19)
[2019-06-27] MEDS: INSULIN LISPRO/ASPART 100 UNIT/ML CARTRIDGE SQ PRN ×2 (05:45→17:23)
[2019-06-27] MEDS: DOCUSATE SODIUM LIQ 100 MG/10 ML UDC GT SCH ×2 (08:26→16:44)
[2019-06-27] MEDS: CHLORHEXIDINE GLUCONATE 15 ML UDC MM SCH ×2 (08:26→21:50)
[2019-06-27] MEDS: METFORMIN 850 MG TABLET GT SCH ×2 (08:26→16:44)
[2019-06-27] MEDS: LEVETIRACETAM SOL (5 ML) 100 MG/ML UDC GT SCH ×2 (08:26→21:50)
[2019-06-27] MEDS: POTASSIUM CHLORIDE 20 MEQ/15 ML GT SCH (08:26)
[2019-06-27] MEDS: ASCORBIC ACID 500 MG TABLET GT SCH ×2 (08:26→16:44)
[2019-06-27] MEDS: BACLOFEN (10 MG) 10 MG TABLET GT SCH ×2 (08:26→21:50)
[2019-06-27] MEDS: FERROUS SULFATE UDC 300 MG/5 ML UDC GT SCH ×3 (08:26→16:44)
[2019-06-27] MEDS: PROSTAT (PYXIS) 30 ML UDC GT SCH ×2 (08:26→16:44)
[2019-06-27] MEDS: ZINC SULFATE 220 MG CAPSULE GT SCH (08:26)
[2019-06-27] MEDS: HEPARIN SODIUM, PORCINE 5000 UNITS/1 ML VIAL SQ SCH ×2 (08:28→21:50)
[2019-06-27] MEDS: HYDROGEN PEROXIDE 480 ML BOTTLE TP SCH ×2 (09:00→19:59)
[2019-06-27] MEDS: THERAHONEY GEL 1.5 OZ TUBE TP SCH ×2 (09:00→21:50)
[2019-06-27] MEDS: Z GUARD REMEDY 4 OZ OINT TP SCH ×4 (09:00→21:50)
[2019-06-27 09:22] VITALS: BP 117/82
--- NOTE | 2019-06-27 15:30 | NUR ---
Seen and examined by Mya Rodgers no new order given.
[2019-06-27] MEDS: GLUCERNA 1.2 1,000 ML BOTTLE GT PRN (16:45)
--- NOTE | 2019-06-27 19:59 | NUR ---
RT NOTE: RECEIVED TRACH PT ON [facility] VENT ON NOTED SETTINGS PER MD ORDERS. TRACH IS PATENT AND SECURED. TRACH CARE DONE. LEAD PERSON DONE. Q6 BREATHING TX GIVEN WITH NO ADVERSE REACTION NOTED. SX DONE PRN. VENT PLUGGED INTO RED OUTLET. ALARMS ON AND AUDIBLE. RSOSYU BAG @ BEDSIDE. NO RESP DISTRESS AT THIS TIME. WILL CONT TO MONITOR PT. Addendum: 06/28/19 at 0216 by SHE BYRNE RT Amended: Links added.
[2019-06-27 20:07] VITALS: BP 115/75
[2019-06-27] MEDS: MULTIVIT W/MINERALS 1 TAB TABLET GT SCH (21:50)
[2019-06-27] MEDS: SENNOSIDES 8.6 MG TABLET GT SCH (22:04)
[2019-06-27] MEDS: [UNRECOGNIZED DRUG - OTHER] SQ SCH (22:19)
[2019-06-27] MEDS: BASAGLAR SQ SCH (22:19)
[2019-06-28] MEDS: IPRATROPIUM NEB FS 0.5 MG/2.5 ML AMPUL.NEB NEB SCH ×4 (01:41→20:02)
[2019-06-28] MEDS: ALBUTEROL FS 2.5 MG/3 ML VIAL.NEB NEB SCH ×4 (01:41→20:02)
[2019-06-28] MEDS: OMEPRAZOLE DR 20 MG GT SCH (05:55)
[2019-06-28] MEDS: BLOOD SUGAR DIAGNOSTIC 1 EACH STRIP IN SCH ×2 (05:55→17:37)
[2019-06-28] MEDS: POLYVINYL ALCOHOL 15 ML BOTTLE EACHEYE SCH ×4 (05:55→23:36)
[2019-06-28] MEDS: INSULIN LISPRO/ASPART 100 UNIT/ML CARTRIDGE SQ PRN ×2 (05:56→17:37)
[2019-06-28 07:37] VITALS: BP 107/77
[2019-06-28] MEDS: HYDROGEN PEROXIDE 480 ML BOTTLE TP SCH ×2 (07:54→20:03)
[2019-06-28] MEDS: LEVETIRACETAM SOL (5 ML) 100 MG/ML UDC GT SCH ×2 (08:33→20:10)
[2019-06-28] MEDS: DOCUSATE SODIUM LIQ 100 MG/10 ML UDC GT SCH ×2 (08:33→17:00)
[2019-06-28] MEDS: FERROUS SULFATE UDC 300 MG/5 ML UDC GT SCH ×3 (08:33→17:37)
[2019-06-28] MEDS: POTASSIUM CHLORIDE 20 MEQ/15 ML GT SCH (08:33)
[2019-06-28] MEDS: BACLOFEN (10 MG) 10 MG TABLET GT SCH ×2 (08:33→20:10)
[2019-06-28] MEDS: CHLORHEXIDINE GLUCONATE 15 ML UDC MM SCH ×2 (08:33→20:11)
[2019-06-28] MEDS: METFORMIN 850 MG TABLET GT SCH ×2 (08:33→17:37)
[2019-06-28] MEDS: PROSTAT (PYXIS) 30 ML UDC GT SCH ×2 (08:33→17:37)
[2019-06-28] MEDS: ASCORBIC ACID 500 MG TABLET GT SCH ×2 (08:33→17:37)
[2019-06-28] MEDS: ZINC SULFATE 220 MG CAPSULE GT SCH (08:33)
[2019-06-28] MEDS: HEPARIN SODIUM, PORCINE 5000 UNITS/1 ML VIAL SQ SCH ×2 (08:34→20:12)
[2019-06-28] MEDS: Z GUARD REMEDY 4 OZ OINT TP SCH ×4 (09:30→20:12)
[2019-06-28] MEDS: THERAHONEY GEL 1.5 OZ TUBE TP SCH ×2 (09:30→20:12)
--- NOTE | 2019-06-28 17:06 | NUR ---
RT NOTE: RECEIVED TRACH PT ON ORDERED NOTED VENT SETTINGS. NO RESPIRATORY DISTRESS NOTED. TRACH CHECKED SECURE AND PATENT. SXD AND LAVAGE PT Q ROUND AND NEEDED. TXS GIVEN ORDERED WITH NO ADVERSE REACTIONS NOTED. TRACH CARE DONE. SPARE TRACH AND AMBU BAG @ BEDSIDE. ALARMS CHECKED AND AUDIBLE. VENT PLUGGED INTO RED OUTLET.
--- NOTE | 2019-06-28 17:35 | NUR ---
Notified Dr Dsouza that pt has had [address] Dsouza if he wanted to decrease stool softeners. Pt on Colace and Senna. Dr Dsouza ordered to DC them.
--- NOTE | 2019-06-28 19:30 | NUR ---
Seen by LORENZO Rodgers no new orders.
[2019-06-28 20:02] VITALS: BP 103/68
[2019-06-28] MEDS: MULTIVIT W/MINERALS 1 TAB TABLET GT SCH (20:11)
[2019-06-28] MEDS: BASAGLAR SQ SCH (21:08)
[2019-06-28] MEDS: [UNRECOGNIZED DRUG - OTHER] SQ SCH (21:08)
[2019-06-29] MEDS: IPRATROPIUM NEB FS 0.5 MG/2.5 ML AMPUL.NEB NEB SCH ×4 (02:10→20:02)
[2019-06-29] MEDS: ALBUTEROL FS 2.5 MG/3 ML VIAL.NEB NEB SCH ×4 (02:10→20:02)
[2019-06-29] MEDS: POLYVINYL ALCOHOL 15 ML BOTTLE EACHEYE SCH ×4 (05:08→23:41)
[2019-06-29] MEDS: OMEPRAZOLE DR 20 MG GT SCH (05:08)
[2019-06-29] MEDS: BLOOD SUGAR DIAGNOSTIC 1 EACH STRIP IN SCH ×2 (05:23→17:51)
[2019-06-29] MEDS: INSULIN LISPRO/ASPART 100 UNIT/ML CARTRIDGE SQ PRN ×2 (05:23→17:52)
[2019-06-29 07:53] VITALS: BP 116/76
[2019-06-29] MEDS: HYDROGEN PEROXIDE 480 ML BOTTLE TP SCH ×2 (08:28→21:14)
[2019-06-29] MEDS: Z GUARD REMEDY 4 OZ OINT TP SCH ×4 (09:02→21:26)
[2019-06-29] MEDS: THERAHONEY GEL 1.5 OZ TUBE TP SCH ×2 (09:02→21:26)
[2019-06-29] MEDS: POTASSIUM CHLORIDE 20 MEQ/15 ML GT SCH (09:02)
[2019-06-29] MEDS: BACLOFEN (10 MG) 10 MG TABLET GT SCH ×2 (09:02→21:25)
[2019-06-29] MEDS: ZINC SULFATE 220 MG CAPSULE GT SCH (09:02)
[2019-06-29] MEDS: CHLORHEXIDINE GLUCONATE 15 ML UDC MM SCH ×2 (09:02→21:25)
[2019-06-29] MEDS: PROSTAT (PYXIS) 30 ML UDC GT SCH ×2 (09:02→17:51)
[2019-06-29] MEDS: METFORMIN 850 MG TABLET GT SCH ×2 (09:02→17:51)
[2019-06-29] MEDS: LEVETIRACETAM SOL (5 ML) 100 MG/ML UDC GT SCH ×2 (09:02→21:25)
[2019-06-29] MEDS: FERROUS SULFATE UDC 300 MG/5 ML UDC GT SCH ×3 (09:02→17:51)
[2019-06-29] MEDS: HEPARIN SODIUM, PORCINE 5000 UNITS/1 ML VIAL SQ SCH ×2 (09:02→21:26)
[2019-06-29] MEDS: ASCORBIC ACID 500 MG TABLET GT SCH ×2 (09:02→17:51)
--- NOTE | 2019-06-29 11:31 | NUR ---
Family Invitation to Holiday Lunch-In and IDT: Hog Handler contacted the patients responsible green party/Sister, Tosin Horvath [phone] to invite her to attend the Interdisciplinary Plan of Care Conference taking place 07/06/19 from 12:30pm-1:30pm and the Family Holiday Lunch-In taking place 07/05/19 from 11:30pm-1:00pm. Per Tosin she will be able to attend the lunch-in and will try to make it to IDT. Noted.
[2019-06-29] MEDS: GLUCERNA 1.2 1,000 ML BOTTLE GT PRN (13:45)
--- NOTE | 2019-06-29 16:48 | NUR ---
RT NOTE PATIENT RECEIVED ON TRACH WITH MECHANICAL VENTILATOR WITH NOTED SETTINGS. TRACH IS PATENT AND SECURED. SPARE TRACH AND BVM IS AT BEDSIDE. VENTILATOR ALARMS ARE SET AND AUDIBLE AND PLUGGED TO RED OUTLET. PATIENT HAS EQUAL CHEST RISE WITH COARSE BILATERAL BREATH SOUNDS. SUCTION SMALL TO MODERATE THIN GREEN AND WHITE SECRETIONS TROUGH OUT THE DAY. NO SOB NOTE. Addendum: 06/29/19 at 1649 by BRANT GARCIA RT Amended: Links added.
[2019-06-29 20:49] VITALS: BP 99/49
[2019-06-29] MEDS: MULTIVIT W/MINERALS 1 TAB TABLET GT SCH (21:25)
[2019-06-29] MEDS: [UNRECOGNIZED DRUG - OTHER] SQ SCH (21:26)
[2019-06-29] MEDS: BASAGLAR SQ SCH (21:26)
[2019-06-30] MEDS: IPRATROPIUM NEB FS 0.5 MG/2.5 ML AMPUL.NEB NEB SCH ×4 (02:25→20:03)
[2019-06-30] MEDS: ALBUTEROL FS 2.5 MG/3 ML VIAL.NEB NEB SCH ×4 (02:25→20:03)
[2019-06-30] MEDS: BLOOD SUGAR DIAGNOSTIC 1 EACH STRIP IN SCH ×2 (05:39→17:36)
[2019-06-30] MEDS: POLYVINYL ALCOHOL 15 ML BOTTLE EACHEYE SCH ×3 (05:39→17:36)
[2019-06-30] MEDS: OMEPRAZOLE DR 20 MG GT SCH (05:39)
[2019-06-30] MEDS: INSULIN LISPRO/ASPART 100 UNIT/ML CARTRIDGE SQ PRN ×2 (05:40→17:37)
[2019-06-30 07:53] VITALS: BP 145/77
[2019-06-30] MEDS: HYDROGEN PEROXIDE 480 ML BOTTLE TP SCH ×2 (08:16→21:05)
[2019-06-30] MEDS: METFORMIN 850 MG TABLET GT SCH ×2 (08:46→17:36)
[2019-06-30] MEDS: ZINC SULFATE 220 MG CAPSULE GT SCH (08:46)
[2019-06-30] MEDS: ASCORBIC ACID 500 MG TABLET GT SCH ×2 (08:46→17:36)
[2019-06-30] MEDS: BACLOFEN (10 MG) 10 MG TABLET GT SCH ×2 (08:46→20:07)
[2019-06-30] MEDS: FERROUS SULFATE UDC 300 MG/5 ML UDC GT SCH ×3 (08:46→17:36)
[2019-06-30] MEDS: PROSTAT (PYXIS) 30 ML UDC GT SCH ×2 (08:46→17:36)
[2019-06-30] MEDS: POTASSIUM CHLORIDE 20 MEQ/15 ML GT SCH (08:46)
[2019-06-30] MEDS: LEVETIRACETAM SOL (5 ML) 100 MG/ML UDC GT SCH ×2 (08:46→20:07)
[2019-06-30] MEDS: CHLORHEXIDINE GLUCONATE 15 ML UDC MM SCH ×2 (08:46→20:07)
[2019-06-30] MEDS: THERAHONEY GEL 1.5 OZ TUBE TP SCH ×2 (08:48→20:08)
[2019-06-30] MEDS: HEPARIN SODIUM, PORCINE 5000 UNITS/1 ML VIAL SQ SCH ×2 (08:48→20:08)
[2019-06-30] MEDS: Z GUARD REMEDY 4 OZ OINT TP SCH ×4 (08:48→20:08)
[2019-06-30] MEDS: GLUCERNA 1.2 1,000 ML BOTTLE GT PRN (11:00)
--- NOTE | 2019-06-30 17:00 | NUR ---
RT NOTE PATIENT RECEIVED ON TRACH WITH MECHANICAL VENTILATOR. TRACH IS PATENT AND SECURED. VENTILATOR IS PLUGGED TO RED OUTLET. ALARMS ARE SET AND AUDIBLE. SPARE TRACH AND BVM IS AT BEDSIDE. PATIENT HAS EQUAL CHEST RISE WITH COARSE BILATERAL BREATH SOUNDS. SUCTION MODERATE AMOUNT OF THIN WHITE/GREEN SECRETIONS TROUGH OUT THE DAY. NO SOB NOTED. Addendum: 06/30/19 at 1702 by BRANT GARCIA RT Amended: Links added.
[2019-06-30 19:33] VITALS: BP 133/91
[2019-06-30] MEDS: MULTIVIT W/MINERALS 1 TAB TABLET GT SCH (20:07)
[2019-06-30] MEDS: [UNRECOGNIZED DRUG - OTHER] SQ SCH (21:20)
[2019-06-30] MEDS: BASAGLAR SQ SCH (21:20)
[2019-07-01] MEDS: POLYVINYL ALCOHOL 15 ML BOTTLE EACHEYE SCH ×4 (00:13→17:00)
[2019-07-01] MEDS: IPRATROPIUM NEB FS 0.5 MG/2.5 ML AMPUL.NEB NEB SCH ×4 (01:52→20:29)
[2019-07-01] MEDS: ALBUTEROL FS 2.5 MG/3 ML VIAL.NEB NEB SCH ×4 (01:52→20:29)
[2019-07-01] MEDS: OMEPRAZOLE DR 20 MG GT SCH (05:05)
[2019-07-01] MEDS: INSULIN LISPRO/ASPART 100 UNIT/ML CARTRIDGE SQ PRN ×2 (05:32→17:07)
[2019-07-01] MEDS: BLOOD SUGAR DIAGNOSTIC 1 EACH STRIP IN SCH ×2 (05:32→17:00)
[2019-07-01 07:36] VITALS: BP 112/72
[2019-07-01] MEDS: HYDROGEN PEROXIDE 480 ML BOTTLE TP SCH ×2 (08:16→20:29)
[2019-07-01] MEDS: PROSTAT (PYXIS) 30 ML UDC GT SCH ×2 (08:59→16:43)
[2019-07-01] MEDS: ZINC SULFATE 220 MG CAPSULE GT SCH (08:59)
[2019-07-01] MEDS: POTASSIUM CHLORIDE 20 MEQ/15 ML GT SCH (08:59)
[2019-07-01] MEDS: BACLOFEN (10 MG) 10 MG TABLET GT SCH ×2 (08:59→20:37)
[2019-07-01] MEDS: THERAHONEY GEL 1.5 OZ TUBE TP SCH ×2 (08:59→20:40)
[2019-07-01] MEDS: CHLORHEXIDINE GLUCONATE 15 ML UDC MM SCH ×2 (08:59→21:00)
[2019-07-01] MEDS: Z GUARD REMEDY 4 OZ OINT TP SCH ×4 (08:59→20:40)
[2019-07-01] MEDS: LEVETIRACETAM SOL (5 ML) 100 MG/ML UDC GT SCH ×2 (08:59→20:36)
[2019-07-01] MEDS: ASCORBIC ACID 500 MG TABLET GT SCH ×2 (08:59→16:43)
[2019-07-01] MEDS: METFORMIN 850 MG TABLET GT SCH ×2 (08:59→16:43)
[2019-07-01] MEDS: FERROUS SULFATE UDC 300 MG/5 ML UDC GT SCH ×3 (08:59→16:43)
[2019-07-01] MEDS: HEPARIN SODIUM, PORCINE 5000 UNITS/1 ML VIAL SQ SCH ×2 (09:01→20:39)
[2019-07-01] MEDS: GLUCERNA 1.2 1,000 ML BOTTLE GT PRN (09:07)
--- NOTE | 2019-07-01 20:34 | NUR ---
RT PT RECEIVED ON VENT WITH CURRENT SETTINGS, TRACHED WITH SHILEY 6. VENT PLUGGED IN TO RED OUTLET. NO RESPIRATORY DISTRESS. ALARMS ON AND AUDIBLE. HOB AT 30 DEGREES. AMBU BAG AT HEAD OF BED. SPARE TRACH AT BEDSIDE. WILL CONTINUE TO MONITOR. Addendum: 07/01/19 at 5179 by CHUCHO ANGELES RT Amended: Links added.
[2019-07-01] MEDS: MULTIVIT W/MINERALS 1 TAB TABLET GT SCH (20:38)
[2019-07-01 20:57] VITALS: BP 113/66
[2019-07-01] MEDS: [UNRECOGNIZED DRUG - OTHER] SQ SCH (21:46)
[2019-07-01] MEDS: BASAGLAR SQ SCH (21:46)
[2019-07-02] MEDS: POLYVINYL ALCOHOL 15 ML BOTTLE EACHEYE SCH ×4 (00:08→17:48)
[2019-07-02] MEDS: ALBUTEROL FS 2.5 MG/3 ML VIAL.NEB NEB SCH ×4 (01:52→19:41)
[2019-07-02] MEDS: IPRATROPIUM NEB FS 0.5 MG/2.5 ML AMPUL.NEB NEB SCH ×4 (01:52→19:40)
[2019-07-02] MEDS: GLUCERNA 1.2 1,000 ML BOTTLE GT PRN ×2 (04:08→23:55)
[2019-07-02] MEDS: OMEPRAZOLE DR 20 MG GT SCH (05:36)
[2019-07-02] MEDS: BLOOD SUGAR DIAGNOSTIC 1 EACH STRIP IN SCH ×2 (05:36→17:48)
[2019-07-02] MEDS: INSULIN LISPRO/ASPART 100 UNIT/ML CARTRIDGE SQ PRN ×2 (05:37→17:49)
[2019-07-02 07:47] VITALS: BP 112/74
[2019-07-02] MEDS: HYDROGEN PEROXIDE 480 ML BOTTLE TP SCH ×2 (08:24→21:00)
[2019-07-02] MEDS: METFORMIN 850 MG TABLET GT SCH ×2 (08:30→17:48)
[2019-07-02] MEDS: BACLOFEN (10 MG) 10 MG TABLET GT SCH ×2 (08:30→20:16)
[2019-07-02] MEDS: POTASSIUM CHLORIDE 20 MEQ/15 ML GT SCH (08:30)
[2019-07-02] MEDS: PROSTAT (PYXIS) 30 ML UDC GT SCH ×2 (08:30→17:48)
[2019-07-02] MEDS: LEVETIRACETAM SOL (5 ML) 100 MG/ML UDC GT SCH ×2 (08:30→20:16)
[2019-07-02] MEDS: FERROUS SULFATE UDC 300 MG/5 ML UDC GT SCH ×3 (08:30→17:48)
--- NOTE | 2019-07-02 08:30 | NUR ---
Seen by Dr Nicanor Kong. He did sacral wound debridement at bedside. No new order.
[2019-07-02] MEDS: CHLORHEXIDINE GLUCONATE 15 ML UDC MM SCH ×2 (08:31→20:17)
[2019-07-02] MEDS: Z GUARD REMEDY 4 OZ OINT TP SCH ×4 (08:31→20:20)
[2019-07-02] MEDS: ASCORBIC ACID 500 MG TABLET GT SCH ×2 (08:31→17:48)
[2019-07-02] MEDS: ZINC SULFATE 220 MG CAPSULE GT SCH (08:31)
[2019-07-02] MEDS: THERAHONEY GEL 1.5 OZ TUBE TP SCH ×2 (08:39→20:20)
[2019-07-02] MEDS: HEPARIN SODIUM, PORCINE 5000 UNITS/1 ML VIAL SQ SCH ×2 (08:42→20:19)
[2019-07-02] MEDS: MULTIVIT W/MINERALS 1 TAB TABLET GT SCH (20:17)
[2019-07-02 20:42] VITALS: BP 121/83
[2019-07-02] MEDS: [UNRECOGNIZED DRUG - OTHER] SQ SCH (21:38)
[2019-07-02] MEDS: BASAGLAR SQ SCH (21:38)
--- NOTE | 2019-07-02 23:33 | NUR ---
RT NOTE Pt rec'd trached on [facility] vent on AC mode. No resp distress or sob noted. trach is patent and secured. Sx'd for thick mod amt of pale yellow secretions. Alarms are set and audible. Vent plugged into red outlet. Will continue to monitor closely. Addendum: 07/02/19 at 2335 by PETER MARADIAGA RT Amended: Links added.
[2019-07-03] MEDS: POLYVINYL ALCOHOL 15 ML BOTTLE EACHEYE SCH ×3 (00:32→17:03)
[2019-07-03] MEDS: IPRATROPIUM NEB FS 0.5 MG/2.5 ML AMPUL.NEB NEB SCH ×4 (01:08→19:53)
[2019-07-03] MEDS: ALBUTEROL FS 2.5 MG/3 ML VIAL.NEB NEB SCH ×3 (01:08→19:53)
[2019-07-03] MEDS: HYDROGEN PEROXIDE 480 ML BOTTLE TP SCH ×2 (08:59→21:00)
--- NOTE | 2019-07-03 08:59 | NUR ---
RT PT RECEIVED ON CURRENT VENT SETTINGS. TRACHED WITH SHILEY 6. VENT PLUGGED IN TO RED OUTLET. AMBU BAG AT HEAD OF BED. SPARE TRACH AT BEDSIDE. ALARMS ON AND AUDIBLE. NO RESPIRATORY DISTRESS. HEAD OF BED AT 30 DEGREES. WILL CONTINUE TO MONITOR. Addendum: 07/03/19 at 1626 by CHUCHO ANGELES RT Amended: Links added.
[2019-07-03] MEDS: Z GUARD REMEDY 4 OZ OINT TP SCH ×4 (09:00→21:42)
[2019-07-03] MEDS: HEPARIN SODIUM, PORCINE 5000 UNITS/1 ML VIAL SQ SCH ×2 (09:00→21:42)
[2019-07-03] MEDS: THERAHONEY GEL 1.5 OZ TUBE TP SCH ×2 (09:00→21:42)
[2019-07-03] MEDS: LEVETIRACETAM SOL (5 ML) 100 MG/ML UDC GT SCH ×2 (09:58→21:41)
[2019-07-03] MEDS: CHLORHEXIDINE GLUCONATE 15 ML UDC MM SCH ×2 (09:58→21:41)
[2019-07-03] MEDS: ZINC SULFATE 220 MG CAPSULE GT SCH (09:58)
[2019-07-03] MEDS: PROSTAT (PYXIS) 30 ML UDC GT SCH ×2 (09:58→16:20)
[2019-07-03] MEDS: ASCORBIC ACID 500 MG TABLET GT SCH ×2 (09:58→16:20)
[2019-07-03] MEDS: FERROUS SULFATE UDC 300 MG/5 ML UDC GT SCH ×3 (09:58→16:20)
[2019-07-03] MEDS: BACLOFEN (10 MG) 10 MG TABLET GT SCH ×2 (09:58→21:41)
[2019-07-03] MEDS: POTASSIUM CHLORIDE 20 MEQ/15 ML GT SCH (09:58)
[2019-07-03] MEDS: METFORMIN 850 MG TABLET GT SCH ×2 (09:58→16:20)
--- NOTE | 2019-07-03 10:00 | NUR ---
Seen by Dr Alvarez. Informed him that according to endorsement, pt had an episode of SOB Tuesday night, but no further episodes since then. No new order.
--- NOTE | 2019-07-03 10:30 | NUR ---
Informed Dr Dsouza that pt's heart rate has been in the low 100s, temp 98.4 F, heart rate at this time [address] Dsouza asked if pt is high pressuring on the vent or if there are any other issues with the pt. Informed him that aside from the elevated heart rate, there is no other issue at this time. Gave pt extra water. No new order.
[2019-07-03 12:34] VITALS: BP 92/68
[2019-07-03] MEDS: ACETAMINOPHEN 650 MG/20 ML UDC- SA PATIENTS-PAIN ONLY GT PRN (15:04)
--- NOTE | 2019-07-03 15:04 | NUR ---
Pt's heart rate 121, administered Tylenol and extra water. Addendum: 07/03/19 at 1837 by TRISTIN MCCLENDON RN BP 101/65 T 98.4 F
--- NOTE | 2019-07-03 16:34 | NUR ---
Pt's heart rate 114 BP 100/68.
[2019-07-03] MEDS: BLOOD SUGAR DIAGNOSTIC 1 EACH STRIP IN SCH (17:03)
[2019-07-03] MEDS: GLUCERNA 1.2 1,000 ML BOTTLE GT PRN (17:05)
[2019-07-03] MEDS: INSULIN LISPRO/ASPART 100 UNIT/ML CARTRIDGE SQ PRN (17:44)
--- NOTE | 2019-07-03 20:00 | NUR ---
RN NOTES Received with an elevated HR of 117. Day shift nurse stated Dr. Dsouza is aware of elevated HR with NNO. Will continue to monitor pt.
[2019-07-03 20:55] VITALS: BP 99/64
[2019-07-03] MEDS: MULTIVIT W/MINERALS 1 TAB TABLET GT SCH (21:41)
[2019-07-03] MEDS: [UNRECOGNIZED DRUG - OTHER] SQ SCH (21:43)
[2019-07-03] MEDS: BASAGLAR SQ SCH (21:43)
[2019-07-04] MEDS: POLYVINYL ALCOHOL 15 ML BOTTLE EACHEYE SCH ×4 (00:44→17:32)
[2019-07-04] MEDS: IPRATROPIUM NEB FS 0.5 MG/2.5 ML AMPUL.NEB NEB SCH ×4 (01:27→20:10)
[2019-07-04] MEDS: ALBUTEROL FS 2.5 MG/3 ML VIAL.NEB NEB SCH ×4 (01:27→20:10)
--- NOTE | 2019-07-04 01:30 | NUR ---
RN NOTES Pt appears to be comfortable at this time. No respiratory distress or SOB noted. HR 106. Will continue to monitor.
[2019-07-04] MEDS: ACETAMINOPHEN 650 MG/20 ML UDC- SA PATIENTS-FEVER ONLY GT PRN (05:26)
[2019-07-04] MEDS: OMEPRAZOLE DR 20 MG GT SCH (05:26)
--- NOTE | 2019-07-04 06:00 | NUR ---
RN NOTES Noted pt with HR 118 and temp of 102. Cooling measures rendered. Called Dr. Dsouza and message left to notify of change in condition.
[2019-07-04] MEDS: BLOOD SUGAR DIAGNOSTIC 1 EACH STRIP IN SCH ×2 (06:10→17:32)
[2019-07-04] MEDS: INSULIN LISPRO/ASPART 100 UNIT/ML CARTRIDGE SQ PRN ×2 (06:12→17:44)
--- NOTE | 2019-07-04 07:16 | NUR ---
RN NOTES Received new order from for CBC, BMP, lactid acid, procalcitonin, CXR, UA/UC, blood cultures x2, noted and carried out. Will endorse following shift for collection of urine.
[2019-07-04 07:45] VITALS: BP 109/72
[2019-07-04 07:58] LABS: CALCIUM, SERUM 9.3 mg/dL (8.5-10.1); CARBON DIOXIDE 19 mmol/L (21-32); CHLORIDE 95 mmol/L (98-107); CREATININE 1.1 mg/dL (0.6-1.3); GLUCOSE 320 mg/dL (74-106); SODIUM SERUM 131 mmol/L (136-145); UREA NITROGEN, BLOOD 31 mg/dL (7-18)
[2019-07-04 08:23] LABS: BASOPHILS # (AUTO) 0.3 /CMM (0.0-0.2); BASOPHILS % (AUTO) 2.1 % (0.0-2.0); EOSINOPHILS % (AUTO) 0.2 % (0.0-6.0); HEMATOCRIT 28 % (33-45); LYMPHOCYTES # (AUTO) 1.6 /CMM (0.8-4.8); LYMPHOCYTES % (AUTO) 12.4 % (20.0-44.0); MEAN CORPUSCULAR HGB CONC 36 g/dl (31.0-36.0); MEAN CORPUSCULAR VOLUME 90 fL (82-100); MONOCYTES # (AUTO) 0.6 /CMM (0.1-1.30); MONOCYTES % (AUTO) 4.6 % (2.0-12.0); NEUTROPHILS # (AUTO) 10.3 /CMM (1.8-8.9); NEUTROPHILS % (AUTO) 80.7 % (43.0-81.0); RED BLOOD CELL COUNT(AUTO) 3.05 MIL/uL (4.0-5.2); WHITE BLOOD COUNT (AUTO) 12.8 K/uL (4.3-11.0)
[2019-07-04] MEDS: HEPARIN SODIUM, PORCINE 5000 UNITS/1 ML VIAL SQ SCH ×2 (08:56→21:16)
[2019-07-04] MEDS: CHLORHEXIDINE GLUCONATE 15 ML UDC MM SCH ×2 (08:56→21:15)
[2019-07-04] MEDS: METFORMIN 850 MG TABLET GT SCH ×2 (08:56→16:30)
[2019-07-04] MEDS: PROSTAT (PYXIS) 30 ML UDC GT SCH ×2 (08:56→16:30)
[2019-07-04] MEDS: ZINC SULFATE 220 MG CAPSULE GT SCH (08:56)
[2019-07-04] MEDS: FERROUS SULFATE UDC 300 MG/5 ML UDC GT SCH ×3 (08:56→16:30)
[2019-07-04] MEDS: LEVETIRACETAM SOL (5 ML) 100 MG/ML UDC GT SCH ×2 (08:56→21:14)
[2019-07-04] MEDS: ASCORBIC ACID 500 MG TABLET GT SCH ×2 (08:56→16:30)
[2019-07-04] MEDS: BACLOFEN (10 MG) 10 MG TABLET GT SCH ×2 (08:56→21:14)
[2019-07-04] MEDS: POTASSIUM CHLORIDE 20 MEQ/15 ML GT SCH (08:56)
[2019-07-04] MEDS: THERAHONEY GEL 1.5 OZ TUBE TP SCH ×2 (08:57→21:16)
[2019-07-04] MEDS: Z GUARD REMEDY 4 OZ OINT TP SCH ×4 (08:57→21:16)
[2019-07-04] MEDS: HYDROGEN PEROXIDE 480 ML BOTTLE TP SCH ×2 (09:00→20:10)
--- NOTE | 2019-07-04 09:15 | NUR ---
RT NOTE: REC'D TRACH PT ON [facility] VENT ON NOTED SETTINGS PER MD ORDERS. TRACH IS PATENT AND SECURED. TRACH CARE DONE. DIRECTOR OF OCCUPATIONAL HEALTH DONE. SX DONE PRN. VENT PLUGGED INTO RED OUTLET. ALARMS ON AND AUDIBLE. ERIC ROCHA @ BEDSIDE. NO RESP DISTRESS NOTED AT THIS TIME. WILL CONT TO MONITOR PT. Addendum: 07/04/19 at 0915 by ARIS CRUZ RT Amended: Links added.
[2019-07-04 10:15] LABS: PLATELET COUNT (AUTO) 499 /CMM (150-450)
[2019-07-04 10:23] LABS: BAND % (MANUAL) 9 % (0.0-5.0); EOSINOPHILS % (MANUAL) 2 % (0-4); LYMPHOCYTES % (MANUAL) 8 % (16-48); MONOCYTES % (MANUAL) 4 % (0-11.0); NEUTROPHILS % (MANUAL) 77 (42-76)
--- NOTE | 2019-07-04 11:01 | NUR ---
Relayed CBC and BMP result to Dr. Dsouza with WBC 12.8, Lactic acid result not available yet, per lab, they have to do a redraw due to abnormal reaction. Awaiting for order.
--- NOTE | 2019-07-04 13:02 | NUR ---
Reported lactic acid result of 5.[address] Dsouza with new order to start Cefepime 2 gm. q 8 hours x 7 days, Vancomycin per pharmacy to dose and IVF of NS at 80cc/hr. Resident's sister Bere informed of change in condition and new order.
[2019-07-04] MEDS ORDERED: CEFEPIME 2 GM in IV D5W 100 ML IV SCH (14:00)
[2019-07-04] MEDS ORDERED: FEE PK DOSING 1 MIN EA MC ONE (14:38)
[2019-07-04] MEDS: CEFEPIME 2 GM in IV D5W 100 ML IV SCH ×2 (15:00→23:00)
--- NOTE | 2019-07-04 15:00 | NUR ---
Notified pharmacy, patient has no IV access at this time. Awaiting for midline nurse to insert IV access. Unable to give IV ATB at this time due to no IV access.
--- NOTE | 2019-07-04 15:05 | NUR ---
Notified Dr. Dsouza that unable to obtain IV access despite attempts by ICU nurse, new order for Midline insertion. Nursing paint roller covers supervisor informed.
[2019-07-04 15:44] LABS: BILIRUBIN,DIRECT 0.1 mg/dL (0.0-0.2); BILIRUBIN,TOTAL 0.5 mg/dL (0.2-1.0)
[2019-07-04] MEDS ORDERED: VANCOMYCIN 0.75 GM in IV D5W 250 ML IV SCH (16:00)
[2019-07-04] MEDS: GLUCERNA 1.2 1,000 ML BOTTLE GT PRN (16:30)
[2019-07-04] MEDS: IV NS 0.9% 1,000 ML IV PRN (17:15)
--- NOTE | 2019-07-04 17:15 | NUR ---
Midline placed in the R upper arm, gauze #[id number], patient tolerated well, no bleeding, IVF started. Latest temperature 99.8
[2019-07-04] MEDS: VANCOMYCIN 0.75 GM in IV D5W 250 ML IV SCH (18:44)
--- NOTE | 2019-07-04 20:10 | NUR ---
RT NOTE: RECEIVED TRACH PT ON [facility] VENT ON NOTED SETTINGS PER MD ORDERS. TRACH IS PATENT AND SECURED. TRACH CARE DONE. PLASTICS PROCESS HAND DONE. Q6 BREATHING TX GIVEN WITH NO ADVERSE REACTION NOTED. SX DONE PRN. VENT PLUGGED INTO RED OUTLET. ALARMS ON AND AUDIBLE. ERIC BAG @ BEDSIDE. NO RESP DISTRESS AT THIS TIME. WILL CONT TO MONITOR PT. Addendum: 07/04/19 at 2019 by SHE BYRNE RT Amended: Links added.
[2019-07-04 21:06] VITALS: BP 130/69
[2019-07-04] MEDS: MULTIVIT W/MINERALS 1 TAB TABLET GT SCH (21:14)
[2019-07-04] MEDS: BASAGLAR SQ SCH (21:43)
[2019-07-04] MEDS: [UNRECOGNIZED DRUG - OTHER] SQ SCH (21:43)
[2019-07-05] MEDS: POLYVINYL ALCOHOL 15 ML BOTTLE EACHEYE SCH ×4 (00:25→17:06)
[2019-07-05] MEDS: ALBUTEROL FS 2.5 MG/3 ML VIAL.NEB NEB SCH ×5 (01:30→20:05)
[2019-07-05] MEDS: IPRATROPIUM NEB FS 0.5 MG/2.5 ML AMPUL.NEB NEB SCH ×4 (01:52→20:05)
[2019-07-05] MEDS: ACETAMINOPHEN 650 MG/20 ML UDC- SA PATIENTS-FEVER ONLY GT PRN (02:16)
--- NOTE | 2019-07-05 02:19 | NUR ---
given 650 mg tylenol via gt d/t temp 102.5, hr 131. pt calm. no s/s resp distress noted. cooling measures in place. comfort measures rendered. will monitor closely. cn aware.
--- NOTE | 2019-07-05 03:20 | NUR ---
tylenol effective, temp 99, hr 104. pt asleep. calm. no discomfort noted. cooling measures continued. will continue to monitor closely.
[2019-07-05] MEDS: BLOOD SUGAR DIAGNOSTIC 1 EACH STRIP IN SCH ×2 (05:23→17:06)
[2019-07-05] MEDS: OMEPRAZOLE DR 20 MG GT SCH (05:23)
[2019-07-05] MEDS: INSULIN LISPRO/ASPART 100 UNIT/ML CARTRIDGE SQ PRN ×2 (05:25→17:10)
[2019-07-05] MEDS: VANCOMYCIN 0.75 GM in IV D5W 250 ML IV SCH ×2 (06:14→17:50)
[2019-07-05] MEDS: CEFEPIME 2 GM in IV D5W 100 ML IV SCH ×3 (06:15→23:14)
[2019-07-05 07:06] LABS: CREATININE 1.1 mg/dL (0.6-1.3); POTASSIUM 3.7 mmol/L (3.5-5.1)
[2019-07-05 08:00] VITALS: BP 111/72
[2019-07-05] MEDS: HYDROGEN PEROXIDE 480 ML BOTTLE TP SCH ×2 (08:16→20:57)
[2019-07-05] MEDS: METFORMIN 850 MG TABLET GT SCH ×2 (09:00→16:29)
[2019-07-05] MEDS: CHLORHEXIDINE GLUCONATE 15 ML UDC MM SCH ×2 (09:00→21:33)
[2019-07-05] MEDS: THERAHONEY GEL 1.5 OZ TUBE TP SCH ×2 (09:00→21:34)
[2019-07-05] MEDS: ASCORBIC ACID 500 MG TABLET GT SCH ×2 (09:00→16:29)
[2019-07-05] MEDS: Z GUARD REMEDY 4 OZ OINT TP SCH ×4 (09:00→21:34)
[2019-07-05] MEDS: POTASSIUM CHLORIDE 20 MEQ/15 ML GT SCH (09:00)
[2019-07-05] MEDS: BACLOFEN (10 MG) 10 MG TABLET GT SCH ×2 (09:00→21:33)
[2019-07-05] MEDS: LEVETIRACETAM SOL (5 ML) 100 MG/ML UDC GT SCH ×2 (09:00→21:33)
[2019-07-05] MEDS: ZINC SULFATE 220 MG CAPSULE GT SCH (09:00)
[2019-07-05] MEDS: PROSTAT (PYXIS) 30 ML UDC GT SCH ×2 (09:00→16:29)
[2019-07-05] MEDS: HEPARIN SODIUM, PORCINE 5000 UNITS/1 ML VIAL SQ SCH ×2 (09:00→21:34)
[2019-07-05] MEDS: FERROUS SULFATE UDC 300 MG/5 ML UDC GT SCH ×3 (09:00→16:31)
[2019-07-05] MEDS: GLUCERNA 1.2 1,000 ML BOTTLE GT PRN (17:09)
[2019-07-05 20:45] VITALS: BP 113/70
--- NOTE | 2019-07-05 20:58 | NUR ---
RT NOTE PT RECEIVED TRACHED ON MECHANICAL VENTILATION. AMBU BAG/BACK UP TRACH @ BEDSIDE. TX GIVEN, NO ADVERSE REACTIONS NOTED. SX DONE, TRACH SECURED AND PATENT. ALARMS ON AND AUDIBLE. VENT PLUGGED TO RED OUTLET. NO SOB NOTED. Addendum: 07/05/19 at 2057 by ABIOLA COMBS RT Amended: Links added.
[2019-07-05] MEDS: IV NS 0.9% 1,000 ML IV PRN (21:01)
[2019-07-05] MEDS: MULTIVIT W/MINERALS 1 TAB TABLET GT SCH (21:33)
[2019-07-05] MEDS: [UNRECOGNIZED DRUG - OTHER] SQ SCH (22:40)
[2019-07-05] MEDS: BASAGLAR SQ SCH (22:40)
[2019-07-06 00:31] LABS: APPEARANCE,URINE CLEAR (CLEAR); BILIRUBIN,URINE NEGATIVE (NEGATIVE); BLOOD, URINE SMALL Ery/uL (NEGATIVE); COLOR,URINE YELLOW (YELLOW); KETONES,URINE NEGATIVE (NEGATIVE); LEUKOCYTE ESTERASE ,URINE TRACE (NEGATIVE); NITRITE, URINE NEGATIVE (NEGATIVE); PROTEIN,URINE NEGATIVE (NEGATIVE); UGLUCOSE NEGATIVE (NEGATIVE); UROBILINOGEN,URINE 0.2 EU/dL (0.2)
[2019-07-06 00:42] LABS: BACTERIA,URINE Few /HPF (None Seen); SQUAMOUS EPITHELIAL CELL,UR Few /HPF (None Seen); WBC,URINE 21-50 /HPF (0-3)
[2019-07-06] MEDS: IPRATROPIUM NEB FS 0.5 MG/2.5 ML AMPUL.NEB NEB SCH ×4 (02:27→20:15)
[2019-07-06] MEDS: ALBUTEROL FS 2.5 MG/3 ML VIAL.NEB NEB SCH ×4 (02:27→20:15)
[2019-07-06] MEDS: VANCOMYCIN 0.75 GM in IV D5W 250 ML IV SCH ×2 (06:00→18:45)
[2019-07-06] MEDS: OMEPRAZOLE DR 20 MG GT SCH (06:01)
[2019-07-06] MEDS: POLYVINYL ALCOHOL 15 ML BOTTLE EACHEYE SCH ×5 (06:01→23:38)
[2019-07-06] MEDS: BLOOD SUGAR DIAGNOSTIC 1 EACH STRIP IN SCH ×2 (06:01→17:40)
[2019-07-06] MEDS: INSULIN LISPRO/ASPART 100 UNIT/ML CARTRIDGE SQ PRN ×2 (06:03→17:45)
[2019-07-06 06:43] LABS: POTASSIUM 4.4 mmol/L (3.5-5.1)
[2019-07-06] MEDS: CEFEPIME 2 GM in IV D5W 100 ML IV SCH ×3 (07:00→23:00)
[2019-07-06 07:38] VITALS: BP 122/70
[2019-07-06] MEDS: ASCORBIC ACID 500 MG TABLET GT SCH ×2 (09:00→16:11)
[2019-07-06] MEDS: Z GUARD REMEDY 4 OZ OINT TP SCH ×4 (09:00→21:36)
[2019-07-06] MEDS: METFORMIN 850 MG TABLET GT SCH ×2 (09:00→16:11)
[2019-07-06] MEDS: LEVETIRACETAM SOL (5 ML) 100 MG/ML UDC GT SCH ×2 (09:00→21:27)
[2019-07-06] MEDS: FERROUS SULFATE UDC 300 MG/5 ML UDC GT SCH ×3 (09:00→16:11)
[2019-07-06] MEDS: BACLOFEN (10 MG) 10 MG TABLET GT SCH ×2 (09:00→21:27)
[2019-07-06] MEDS: THERAHONEY GEL 1.5 OZ TUBE TP SCH ×2 (09:00→21:36)
[2019-07-06] MEDS: PROSTAT (PYXIS) 30 ML UDC GT SCH ×2 (09:00→16:11)
[2019-07-06] MEDS: HYDROGEN PEROXIDE 480 ML BOTTLE TP SCH ×2 (09:00→20:15)
[2019-07-06] MEDS: HEPARIN SODIUM, PORCINE 5000 UNITS/1 ML VIAL SQ SCH ×2 (09:00→21:28)
[2019-07-06] MEDS: CHLORHEXIDINE GLUCONATE 15 ML UDC MM SCH ×2 (09:00→21:27)
[2019-07-06] MEDS: ZINC SULFATE 220 MG CAPSULE GT SCH (09:00)
[2019-07-06] MEDS: POTASSIUM CHLORIDE 20 MEQ/15 ML GT SCH (09:00)
[2019-07-06] MEDS: IV NS 0.9% 1,000 ML IV PRN (10:16)
--- NOTE | 2019-07-06 11:00 | NUR ---
Notified Dr. Dsouza, patient's blood sugar has been trending high 383 mg/dl this morning, new order given to increase Basaglar to 22 units. Orders carried out. Resident's sister informed.
[2019-07-06] MEDS ORDERED: BASAGLAR SQ SCH (11:10)
[2019-07-06] MEDS ORDERED: [UNRECOGNIZED DRUG - OTHER] SQ SCH (11:10)
--- NOTE | 2019-07-06 14:09 | NUR ---
INTERDISCIPLINARY PLAN OF CARE CONFERENCE took place today. The patients responsible libertarian/ Tosin Horvath [phone] was not able to attend or participate via phone conference. The charge nurse discussed Antibiotic Tx; Low Grade Fever; Blood Sugar trending high; Bassaglar increased to [address] Alvarez and Interdisciplinary team discussed the plan of care in detail. Current orders as well as treatments and medications were reviewed. Please see other disciplines IDT notes for further details.
[2019-07-06 20:22] VITALS: BP 117/70
--- NOTE | 2019-07-06 20:32 | NUR ---
PT RCVD TRACH'D ON MECHANICAL VENT WITH CHARTED SETTINGS. PT TUTU TX WELL. SX DONE. PT TRACH IS PATENT AND SECURE. VENT ALARMS APPEAR TO BE FUNCTIONING PROPERLY. AMBU BAG AT BEDSIDE. VENT PLUGGED INTO RED OUTLET. NO SOB NOTED. Addendum: 07/06/19 at 2031 by CHAGO HOLMAN RT Amended: Links added.
[2019-07-06] MEDS: MULTIVIT W/MINERALS 1 TAB TABLET GT SCH (21:27)
[2019-07-06] MEDS: [UNRECOGNIZED DRUG - OTHER] SQ SCH (21:37)
[2019-07-06] MEDS: BASAGLAR SQ SCH (21:37)
[2019-07-06] MEDS: POLYETHYLENE GLYCOL 3350 17 GM POWD.PACK GT PRN (22:00)
[2019-07-07] MEDS: IPRATROPIUM NEB FS 0.5 MG/2.5 ML AMPUL.NEB NEB SCH ×4 (01:08→19:58)
[2019-07-07] MEDS: ALBUTEROL FS 2.5 MG/3 ML VIAL.NEB NEB SCH ×4 (01:08→19:58)
[2019-07-07] MEDS: OMEPRAZOLE DR 20 MG GT SCH (05:49)
[2019-07-07] MEDS: POLYVINYL ALCOHOL 15 ML BOTTLE EACHEYE SCH ×4 (05:49→23:38)
[2019-07-07] MEDS: BLOOD SUGAR DIAGNOSTIC 1 EACH STRIP IN SCH ×2 (05:49→17:35)
[2019-07-07] MEDS: GLUCERNA 1.2 1,000 ML BOTTLE GT PRN ×2 (05:49→18:59)
[2019-07-07] MEDS: INSULIN LISPRO/ASPART 100 UNIT/ML CARTRIDGE SQ PRN ×2 (05:49→17:36)
[2019-07-07] MEDS: VANCOMYCIN 0.75 GM in IV D5W 250 ML IV SCH ×2 (06:10→18:50)
[2019-07-07] MEDS: BISACODYL SUPP (10 MG) 10 MG/SUPP.RECT SUPP.RECT RC PRN (06:23)
[2019-07-07] MEDS: CEFEPIME 2 GM in IV D5W 100 ML IV SCH ×3 (07:30→23:00)
[2019-07-07] MEDS: HYDROGEN PEROXIDE 480 ML BOTTLE TP SCH ×2 (07:41→19:58)
[2019-07-07 08:29] LABS: CALCIUM, SERUM 8.8 mg/dL (8.5-10.1); POTASSIUM 3.8 mmol/L (3.5-5.1)
[2019-07-07 08:39] VITALS: BP 127/81
[2019-07-07] MEDS: Z GUARD REMEDY 4 OZ OINT TP SCH ×4 (09:00→20:45)
[2019-07-07] MEDS: METFORMIN 850 MG TABLET GT SCH ×2 (09:21→17:04)
[2019-07-07] MEDS: POTASSIUM CHLORIDE 20 MEQ/15 ML GT SCH (09:21)
[2019-07-07] MEDS: ASCORBIC ACID 500 MG TABLET GT SCH ×2 (09:21→17:04)
[2019-07-07] MEDS: FERROUS SULFATE UDC 300 MG/5 ML UDC GT SCH ×3 (09:21→17:04)
[2019-07-07] MEDS: BACLOFEN (10 MG) 10 MG TABLET GT SCH ×2 (09:21→20:44)
[2019-07-07] MEDS: ZINC SULFATE 220 MG CAPSULE GT SCH (09:21)
[2019-07-07] MEDS: LEVETIRACETAM SOL (5 ML) 100 MG/ML UDC GT SCH ×2 (09:21→20:44)
[2019-07-07] MEDS: PROSTAT (PYXIS) 30 ML UDC GT SCH ×2 (09:21→17:04)
[2019-07-07] MEDS: HEPARIN SODIUM, PORCINE 5000 UNITS/1 ML VIAL SQ SCH ×2 (09:22→20:45)
[2019-07-07] MEDS: CHLORHEXIDINE GLUCONATE 15 ML UDC MM SCH ×2 (09:22→20:44)
[2019-07-07] MEDS: THERAHONEY GEL 1.5 OZ TUBE TP SCH ×2 (09:23→20:45)
[2019-07-07] MEDS: IV NS 0.9% 1,000 ML IV PRN ×2 (16:00)
--- NOTE | 2019-07-07 19:58 | NUR ---
RT NOTE: RECEIVED TRACH PT ON [facility] VENT ON NOTED SETTINGS PER MD ORDERS. TRACH IS PATENT AND SECURED. TRACH CARE DONE. ROLL OFF DRIVER DONE. Q6 BREATHING TX GIVEN WITH NO ADVERSE REACTION NOTED. SX DONE PRN. VENT PLUGGED INTO RED OUTLET. ALARMS ON AND AUDIBLE. ROSSYU BAG @ BEDSIDE. NO RESP DISTRESS AT THIS TIME. WILL CONT TO MONITOR PT. Addendum: 07/08/19 at 0109 by SHE BYRNE RT Amended: Links added.
[2019-07-07 20:42] VITALS: BP 125/74
[2019-07-07 20:43] VITALS: BP_SYST 107; BP_SYST 125; BP_DIAS 71; BP_DIAS 74
[2019-07-07] MEDS: MULTIVIT W/MINERALS 1 TAB TABLET GT SCH (20:44)
[2019-07-07] MEDS: [UNRECOGNIZED DRUG - OTHER] SQ SCH (21:15)
[2019-07-07] MEDS: BASAGLAR SQ SCH (21:15)
[2019-07-08] MEDS: IPRATROPIUM NEB FS 0.5 MG/2.5 ML AMPUL.NEB NEB SCH ×4 (00:59→20:27)
[2019-07-08] MEDS: ALBUTEROL FS 2.5 MG/3 ML VIAL.NEB NEB SCH ×4 (00:59→20:27)
[2019-07-08] MEDS: INSULIN LISPRO/ASPART 100 UNIT/ML CARTRIDGE SQ PRN ×2 (05:48→17:46)
[2019-07-08] MEDS: BLOOD SUGAR DIAGNOSTIC 1 EACH STRIP IN SCH ×2 (05:48→17:45)
[2019-07-08] MEDS: OMEPRAZOLE DR 20 MG GT SCH (05:48)
[2019-07-08] MEDS: POLYVINYL ALCOHOL 15 ML BOTTLE EACHEYE SCH ×3 (05:48→17:35)
[2019-07-08] MEDS: VANCOMYCIN 0.75 GM in IV D5W 250 ML IV SCH (06:00)
[2019-07-08] MEDS: CEFEPIME 2 GM in IV D5W 100 ML IV SCH (07:04)
[2019-07-08 07:35] LABS: CALCIUM, SERUM 9.1 mg/dL (8.5-10.1); CREATININE 0.9 mg/dL (0.6-1.3); POTASSIUM 4.1 mmol/L (3.5-5.1)
[2019-07-08] MEDS: HYDROGEN PEROXIDE 480 ML BOTTLE TP SCH ×2 (08:21→21:00)
[2019-07-08] MEDS: METFORMIN 850 MG TABLET GT SCH ×2 (08:43→17:35)
[2019-07-08] MEDS: FERROUS SULFATE UDC 300 MG/5 ML UDC GT SCH ×3 (08:43→17:34)
[2019-07-08] MEDS: CHLORHEXIDINE GLUCONATE 15 ML UDC MM SCH ×2 (08:44→21:00)
[2019-07-08] MEDS: LEVETIRACETAM SOL (5 ML) 100 MG/ML UDC GT SCH ×2 (08:44→21:00)
[2019-07-08] MEDS: POTASSIUM CHLORIDE 20 MEQ/15 ML GT SCH (08:44)
[2019-07-08] MEDS: BACLOFEN (10 MG) 10 MG TABLET GT SCH ×2 (08:44→21:00)
[2019-07-08] MEDS: ASCORBIC ACID 500 MG TABLET GT SCH ×2 (08:44→17:35)
[2019-07-08] MEDS: HEPARIN SODIUM, PORCINE 5000 UNITS/1 ML VIAL SQ SCH ×2 (08:44→21:00)
[2019-07-08] MEDS: PROSTAT (PYXIS) 30 ML UDC GT SCH ×2 (08:44→17:35)
[2019-07-08] MEDS: ZINC SULFATE 220 MG CAPSULE GT SCH (08:44)
[2019-07-08] MEDS: Z GUARD REMEDY 4 OZ OINT TP SCH ×4 (08:44→21:00)
[2019-07-08] MEDS: THERAHONEY GEL 1.5 OZ TUBE TP SCH ×2 (08:45→21:00)
[2019-07-08] MEDS ORDERED: CEFEPIME 2 GM in IV NS 0.9% 100 ML IV SCH ×2 (09:52→15:00)
[2019-07-08 10:33] VITALS: BP 129/79
[2019-07-08] MEDS: IV NS 0.9% 1,000 ML IV PRN (11:20)
--- NOTE | 2019-07-08 13:00 | NUR ---
Urine Culture result relayed to Lg Hernandez NP with new orders and carried out. D/C Vancomycin IV and Cefepime IV. 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 Placed patient on contact isolation precaution. Health teachings given to staff for taylor catheter care, perineal care, use of PPE use and handwashing.
[2019-07-08] MEDS: AMOXICILLIN 250 MG/5 ML BOTTLE GT SCH ×2 (14:00→22:00)
[2019-07-08] MEDS: GLUCERNA 1.2 1,000 ML BOTTLE GT PRN (15:44)
--- NOTE | 2019-07-08 15:52 | NUR ---
RT NOTES RECEIVED PATIENT ON VENT WITH ORDERED SETTINGS. TRACH TUBE IN PLACE, PATENT, AND SECURED WITH TRACH TIE. ALARMS ON AND AUDIBLE. VENT PLUGGED IN TO THE RED OUTLET. AMBU BAG AND BACK UP TRACH BY THE BEDSIDE. NO RESP DISTRESS AT THIS TIME. Addendum: 07/08/19 at 1552 by ADOLFO LU RT Amended: Links added.
[2019-07-08] MEDS ORDERED: VANCOMYCIN 0.75 GM in IV NS 0.9% 250 ML IV SCH (18:00)
[2019-07-08 19:52] VITALS: BP 134/89
[2019-07-08] MEDS: MULTIVIT W/MINERALS 1 TAB TABLET GT SCH (21:00)
[2019-07-08] MEDS: BASAGLAR SQ SCH (22:02)
[2019-07-08] MEDS: [UNRECOGNIZED DRUG - OTHER] SQ SCH (22:02)
--- NOTE | 2019-07-08 22:10 | NUR ---
PT RECEIVE STABLE ON MV SETTINGS ARE AC 12 550 +5, TRACH PT AND SECURED , SPARE TRACH AND AMBU BAG IS AT BEDSIDE, ALARMS ARE ON AND AUDIBLE, MV PLUG IN RED OUTLET, WILL CONTINUE TO MONITOR Addendum: 07/08/19 at 2212 by RAHEEM BARTH RT Amended: Links added.
[2019-07-09] MEDS: POLYVINYL ALCOHOL 15 ML BOTTLE EACHEYE SCH ×5 (00:22→23:58)
[2019-07-09] MEDS: ALBUTEROL FS 2.5 MG/3 ML VIAL.NEB NEB SCH ×4 (01:46→19:35)
[2019-07-09] MEDS: IPRATROPIUM NEB FS 0.5 MG/2.5 ML AMPUL.NEB NEB SCH ×4 (01:46→19:35)
[2019-07-09] MEDS: IV NS 0.9% 1,000 ML IV PRN (02:00)
[2019-07-09] MEDS: OMEPRAZOLE DR 20 MG GT SCH (05:12)
[2019-07-09] MEDS: AMOXICILLIN 250 MG/5 ML BOTTLE GT SCH ×3 (05:12→21:49)
[2019-07-09] MEDS: BLOOD SUGAR DIAGNOSTIC 1 EACH STRIP IN SCH ×2 (05:23→18:43)
[2019-07-09] MEDS: INSULIN LISPRO/ASPART 100 UNIT/ML CARTRIDGE SQ PRN ×2 (05:24→18:43)
[2019-07-09 06:19] LABS: CALCIUM, SERUM 9.5 mg/dL (8.5-10.1); CREATININE 0.9 mg/dL (0.6-1.3)
[2019-07-09 07:45] VITALS: BP 158/54
[2019-07-09] MEDS: HYDROGEN PEROXIDE 480 ML BOTTLE TP SCH ×2 (08:17→19:35)
[2019-07-09] MEDS: FERROUS SULFATE UDC 300 MG/5 ML UDC GT SCH ×3 (08:49→16:27)
[2019-07-09] MEDS: METFORMIN 850 MG TABLET GT SCH ×2 (08:50→16:27)
[2019-07-09] MEDS: LEVETIRACETAM SOL (5 ML) 100 MG/ML UDC GT SCH ×2 (08:50→21:49)
[2019-07-09] MEDS: ASCORBIC ACID 500 MG TABLET GT SCH ×2 (08:50→16:27)
[2019-07-09] MEDS: PROSTAT (PYXIS) 30 ML UDC GT SCH ×2 (08:50→16:27)
[2019-07-09] MEDS: ZINC SULFATE 220 MG CAPSULE GT SCH (08:50)
[2019-07-09] MEDS: Z GUARD REMEDY 4 OZ OINT TP SCH ×2 (08:50→21:49)
[2019-07-09] MEDS: POTASSIUM CHLORIDE 20 MEQ/15 ML GT SCH (08:50)
[2019-07-09] MEDS: HEPARIN SODIUM, PORCINE 5000 UNITS/1 ML VIAL SQ SCH ×2 (08:50→21:49)
[2019-07-09] MEDS: BACLOFEN (10 MG) 10 MG TABLET GT SCH ×2 (08:50→21:49)
[2019-07-09] MEDS: CHLORHEXIDINE GLUCONATE 15 ML UDC MM SCH ×2 (08:50→21:49)
[2019-07-09] MEDS: THERAHONEY GEL 1.5 OZ TUBE TP SCH ×2 (08:51→21:49)
[2019-07-09] MEDS: GLUCERNA 1.2 1,000 ML BOTTLE GT PRN (14:11)
--- NOTE | 2019-07-09 16:53 | NUR ---
Informed pt's sister of contact isolation for VRE urine. Provided education to her regarding isolation precautions.
--- NOTE | 2019-07-09 19:36 | NUR ---
RT NOTE: RECEIVED TRACH PT ON [facility] VENT ON NOTED SETTINGS PER MD ORDERS. TRACH IS PATENT AND SECURED. TRACH CARE DONE. BLADE GRINDER DONE. Q6 BREATHING TX GIVEN WITH NO ADVERSE REACTION NOTED. SX DONE PRN. VENT PLUGGED INTO RED OUTLET. ALARMS ON AND AUDIBLE. ROSSYU BAG @ BEDSIDE. NO RESP DISTRESS AT THIS TIME. WILL CONT TO MONITOR PT. Addendum: 07/09/19 at 2006 by SHE BYRNE RT Amended: Links added.
[2019-07-09 20:55] VITALS: BP 121/78
[2019-07-09] MEDS: MULTIVIT W/MINERALS 1 TAB TABLET GT SCH (21:49)
[2019-07-09] MEDS: BASAGLAR SQ SCH (21:50)
[2019-07-09] MEDS: [UNRECOGNIZED DRUG - OTHER] SQ SCH (21:50)
[2019-07-10] MEDS: IPRATROPIUM NEB FS 0.5 MG/2.5 ML AMPUL.NEB NEB SCH ×4 (02:15→20:01)
[2019-07-10] MEDS: ALBUTEROL FS 2.5 MG/3 ML VIAL.NEB NEB SCH ×4 (02:15→20:01)
[2019-07-10] MEDS: IV NS 0.9% 1,000 ML IV PRN ×2 (03:00→16:13)
[2019-07-10] MEDS: OMEPRAZOLE DR 20 MG GT SCH (05:57)
[2019-07-10] MEDS: POLYVINYL ALCOHOL 15 ML BOTTLE EACHEYE SCH ×3 (05:57→17:55)
[2019-07-10] MEDS: AMOXICILLIN 250 MG/5 ML BOTTLE GT SCH ×3 (05:57→22:06)
[2019-07-10] MEDS: BLOOD SUGAR DIAGNOSTIC 1 EACH STRIP IN SCH ×2 (05:57→17:55)
[2019-07-10] MEDS: INSULIN LISPRO/ASPART 100 UNIT/ML CARTRIDGE SQ PRN (05:58)
[2019-07-10 07:36] LABS: CALCIUM, SERUM 9.3 mg/dL (8.5-10.1); CREATININE 0.8 mg/dL (0.6-1.3); POTASSIUM 4.2 mmol/L (3.5-5.1)
[2019-07-10] MEDS: HYDROGEN PEROXIDE 480 ML BOTTLE TP SCH ×2 (07:53→21:00)
[2019-07-10 08:23] VITALS: BP 121/71
[2019-07-10] MEDS: POTASSIUM CHLORIDE 20 MEQ/15 ML GT SCH (09:44)
[2019-07-10] MEDS: ASCORBIC ACID 500 MG TABLET GT SCH ×2 (09:44→17:55)
[2019-07-10] MEDS: METFORMIN 850 MG TABLET GT SCH ×2 (09:44→17:55)
[2019-07-10] MEDS: BACLOFEN (10 MG) 10 MG TABLET GT SCH ×2 (09:44→21:00)
[2019-07-10] MEDS: PROSTAT (PYXIS) 30 ML UDC GT SCH ×2 (09:44→17:55)
[2019-07-10] MEDS: CHLORHEXIDINE GLUCONATE 15 ML UDC MM SCH ×2 (09:44→21:00)
[2019-07-10] MEDS: ZINC SULFATE 220 MG CAPSULE GT SCH (09:44)
[2019-07-10] MEDS: FERROUS SULFATE UDC 300 MG/5 ML UDC GT SCH ×3 (09:44→17:55)
[2019-07-10] MEDS: LEVETIRACETAM SOL (5 ML) 100 MG/ML UDC GT SCH ×2 (09:44→21:00)
[2019-07-10] MEDS: HEPARIN SODIUM, PORCINE 5000 UNITS/1 ML VIAL SQ SCH ×2 (09:45→21:00)
[2019-07-10] MEDS: Z GUARD REMEDY 4 OZ OINT TP SCH ×2 (09:45→21:00)
[2019-07-10] MEDS: THERAHONEY GEL 1.5 OZ TUBE TP SCH ×2 (09:45→21:00)
--- NOTE | 2019-07-10 10:21 | NUR ---
Seen and examined by Dr. Alvarez, updated of patient's condition, no new order given. Patient remain on IVF, NS at 80 cc/hr. NNO given at this time.
--- NOTE | 2019-07-10 11:10 | NUR ---
RT PT RECEIVED TRACH'D ON [facility] VENT WITH SETTINGS PER MD ORDER. CAR SEAT COVERER DONE. VENT PLUGGED INTO RED OUTLET. SPARE TRACH AND AMBU BAG AT HEAD OF BED. ALARMS ON AND FUNCTIONING PROPERLY. BREATHING TX'S GIVEN ORDERED. NO ADVERSE REACTIONS OBSERVED. SUCTIONED AND MONITORED PRN. NO SIGNS OF DISTRESS NOTED. TRACH CARE DONE. Addendum: 07/10/19 at 1246 by WING WHITTINGTON RT Amended: Links added.
[2019-07-10] MEDS: GLUCERNA 1.2 1,000 ML BOTTLE GT PRN (13:55)
[2019-07-10 19:48] VITALS: BP 127/82
[2019-07-10] MEDS: MULTIVIT W/MINERALS 1 TAB TABLET GT SCH (21:00)
[2019-07-10] MEDS: BASAGLAR SQ SCH (22:07)
[2019-07-10] MEDS: [UNRECOGNIZED DRUG - OTHER] SQ SCH (22:07)
--- NOTE | 2019-07-10 23:24 | NUR ---
RT PT RECEIVED ON CURRENT SETTINGS. TRACHED WITH SHILEY 6. VENT PLUGGED IN TO RED OUTLET. ALARMS ON AND AUDIBLE. SPARE TRACH AT BEDSIDE. AMBU BAG AT HEAD OF BED. NO RESPIRATORY DISTRESS. WILL CONTINUE TO MONITOR. Addendum: 07/10/19 at 7485 by CHUCHO ANGELES RT Amended: Links added.
[2019-07-11] MEDS: ALBUTEROL FS 2.5 MG/3 ML VIAL.NEB NEB SCH ×4 (01:24→20:01)
[2019-07-11] MEDS: IPRATROPIUM NEB FS 0.5 MG/2.5 ML AMPUL.NEB NEB SCH ×4 (01:24→20:01)
[2019-07-11] MEDS: INSULIN LISPRO/ASPART 100 UNIT/ML CARTRIDGE SQ PRN ×2 (06:29→17:03)
[2019-07-11] MEDS: AMOXICILLIN 250 MG/5 ML BOTTLE GT SCH ×3 (06:29→21:59)
[2019-07-11] MEDS: OMEPRAZOLE DR 20 MG GT SCH (06:29)
[2019-07-11] MEDS: POLYVINYL ALCOHOL 15 ML BOTTLE EACHEYE SCH ×5 (06:29→23:17)
[2019-07-11] MEDS: BLOOD SUGAR DIAGNOSTIC 1 EACH STRIP IN SCH ×2 (06:29→17:02)
[2019-07-11] MEDS: HYDROGEN PEROXIDE 480 ML BOTTLE TP SCH ×2 (08:06→20:02)
[2019-07-11 08:43] VITALS: BP 127/84
[2019-07-11] MEDS: THERAHONEY GEL 1.5 OZ TUBE TP SCH ×2 (09:00→20:25)
[2019-07-11] MEDS: PROSTAT (PYXIS) 30 ML UDC GT SCH ×2 (09:41→16:50)
[2019-07-11] MEDS: FERROUS SULFATE UDC 300 MG/5 ML UDC GT SCH ×3 (09:41→16:49)
[2019-07-11] MEDS: POTASSIUM CHLORIDE 20 MEQ/15 ML GT SCH (09:41)
[2019-07-11] MEDS: ASCORBIC ACID 500 MG TABLET GT SCH ×2 (09:41→16:50)
[2019-07-11] MEDS: LEVETIRACETAM SOL (5 ML) 100 MG/ML UDC GT SCH ×2 (09:41→20:22)
[2019-07-11] MEDS: BACLOFEN (10 MG) 10 MG TABLET GT SCH ×2 (09:41→20:22)
[2019-07-11] MEDS: METFORMIN 850 MG TABLET GT SCH ×2 (09:41→16:49)
[2019-07-11] MEDS: CHLORHEXIDINE GLUCONATE 15 ML UDC MM SCH ×2 (09:42→20:23)
[2019-07-11] MEDS: HEPARIN SODIUM, PORCINE 5000 UNITS/1 ML VIAL SQ SCH ×2 (09:42→20:24)
[2019-07-11] MEDS: ZINC SULFATE 220 MG CAPSULE GT SCH (09:42)
[2019-07-11] MEDS: Z GUARD REMEDY 4 OZ OINT TP SCH ×2 (09:43→20:24)
[2019-07-11] MEDS: GLUCERNA 1.2 1,000 ML BOTTLE GT PRN (11:30)
--- NOTE | 2019-07-11 14:52 | NUR ---
RT NOTES RECEIVED PATIENT ON VENT WITH ORDERED SETTINGS. TRACH TUBE IN PLACE, PATENT, AND SECURED WITH TRACH TIE. ALARMS ON AND AUDIBLE. VENT PLUGGED IN TO THE RED OUTLET. AMBU BAG AND BACK UP TRACH BY THE BEDSIDE. NO DISTRESS AT THIS TIME. Addendum: 07/11/19 at 1452 by ADOLFO LU RT Amended: Links added.
[2019-07-11 19:53] VITALS: BP 121/70
--- NOTE | 2019-07-11 20:03 | NUR ---
RT pt received on current settings. trached with shiley 6. vent plugged in to red outlet. alarms on and audible. ambu bag at head of bed. spare trach at bedside. no respiratory distress. will continue to monitor. Addendum: 07/12/19 at 0237 by CHUCHO ANGELES RT Amended: Links added.
[2019-07-11] MEDS: MULTIVIT W/MINERALS 1 TAB TABLET GT SCH (20:23)
[2019-07-11] MEDS: ACETAMINOPHEN 650 MG/20 ML UDC- SA PATIENTS-PAIN ONLY GT PRN (21:13)
[2019-07-11] MEDS: [UNRECOGNIZED DRUG - OTHER] SQ SCH (21:59)
[2019-07-11] MEDS: BASAGLAR SQ SCH (21:59)
[2019-07-12] MEDS: ALBUTEROL FS 2.5 MG/3 ML VIAL.NEB NEB SCH ×4 (01:33→19:33)
[2019-07-12] MEDS: IPRATROPIUM NEB FS 0.5 MG/2.5 ML AMPUL.NEB NEB SCH ×4 (01:33→19:33)
[2019-07-12] MEDS: OMEPRAZOLE DR 20 MG GT SCH (05:43)
[2019-07-12] MEDS: POLYVINYL ALCOHOL 15 ML BOTTLE EACHEYE SCH ×4 (05:43→23:40)
[2019-07-12] MEDS: AMOXICILLIN 250 MG/5 ML BOTTLE GT SCH ×3 (05:43→21:39)
[2019-07-12] MEDS: BLOOD SUGAR DIAGNOSTIC 1 EACH STRIP IN SCH ×2 (05:44→17:17)
[2019-07-12] MEDS: INSULIN LISPRO/ASPART 100 UNIT/ML CARTRIDGE SQ PRN ×2 (05:45→17:31)
[2019-07-12 07:24] VITALS: BP 122/79
[2019-07-12] MEDS: HYDROGEN PEROXIDE 480 ML BOTTLE TP SCH ×2 (08:22→19:34)
[2019-07-12] MEDS: CHLORHEXIDINE GLUCONATE 15 ML UDC MM SCH ×2 (09:05→21:38)
[2019-07-12] MEDS: METFORMIN 850 MG TABLET GT SCH ×2 (09:05→17:17)
[2019-07-12] MEDS: ZINC SULFATE 220 MG CAPSULE GT SCH (09:05)
[2019-07-12] MEDS: HEPARIN SODIUM, PORCINE 5000 UNITS/1 ML VIAL SQ SCH ×2 (09:05→21:39)
[2019-07-12] MEDS: POTASSIUM CHLORIDE 20 MEQ/15 ML GT SCH (09:05)
[2019-07-12] MEDS: FERROUS SULFATE UDC 300 MG/5 ML UDC GT SCH ×3 (09:05→17:17)
[2019-07-12] MEDS: ASCORBIC ACID 500 MG TABLET GT SCH ×2 (09:05→17:17)
[2019-07-12] MEDS: LEVETIRACETAM SOL (5 ML) 100 MG/ML UDC GT SCH ×2 (09:05→21:38)
[2019-07-12] MEDS: BACLOFEN (10 MG) 10 MG TABLET GT SCH ×2 (09:05→21:38)
[2019-07-12] MEDS: PROSTAT (PYXIS) 30 ML UDC GT SCH ×2 (09:05→17:17)
[2019-07-12] MEDS: Z GUARD REMEDY 4 OZ OINT TP SCH ×2 (09:06→21:39)
[2019-07-12] MEDS: THERAHONEY GEL 1.5 OZ TUBE TP SCH ×2 (09:06→21:39)
--- NOTE | 2019-07-12 14:52 | NUR ---
Seen by Dr Dsouza. He reviewed recent BMP result and ordered to DC NS IV.
[2019-07-12 19:47] VITALS: BP 126/83
[2019-07-12] MEDS: MULTIVIT W/MINERALS 1 TAB TABLET GT SCH (21:38)
[2019-07-12] MEDS: [UNRECOGNIZED DRUG - OTHER] SQ SCH (21:40)
[2019-07-12] MEDS: BASAGLAR SQ SCH (21:40)
[2019-07-13] MEDS: GLUCERNA 1.2 1,000 ML BOTTLE GT PRN ×2 (01:00→17:44)
[2019-07-13] MEDS: ALBUTEROL FS 2.5 MG/3 ML VIAL.NEB NEB SCH ×4 (01:33→19:58)
[2019-07-13] MEDS: IPRATROPIUM NEB FS 0.5 MG/2.5 ML AMPUL.NEB NEB SCH ×4 (01:33→19:58)
[2019-07-13] MEDS: BLOOD SUGAR DIAGNOSTIC 1 EACH STRIP IN SCH ×2 (06:08→17:43)
[2019-07-13] MEDS: OMEPRAZOLE DR 20 MG GT SCH (06:08)
[2019-07-13] MEDS: POLYVINYL ALCOHOL 15 ML BOTTLE EACHEYE SCH ×4 (06:08→23:17)
[2019-07-13] MEDS: AMOXICILLIN 250 MG/5 ML BOTTLE GT SCH (06:08)
[2019-07-13] MEDS: INSULIN LISPRO/ASPART 100 UNIT/ML CARTRIDGE SQ PRN ×2 (06:10→17:45)
[2019-07-13 08:05] VITALS: BP 138/85
[2019-07-13] MEDS: HYDROGEN PEROXIDE 480 ML BOTTLE TP SCH ×2 (08:19→20:35)
[2019-07-13] MEDS: ASCORBIC ACID 500 MG TABLET GT SCH ×2 (09:41→17:43)
[2019-07-13] MEDS: PROSTAT (PYXIS) 30 ML UDC GT SCH ×2 (09:41→17:43)
[2019-07-13] MEDS: CHLORHEXIDINE GLUCONATE 15 ML UDC MM SCH ×2 (09:41→20:34)
[2019-07-13] MEDS: METFORMIN 850 MG TABLET GT SCH ×2 (09:41→17:43)
[2019-07-13] MEDS: ZINC SULFATE 220 MG CAPSULE GT SCH (09:41)
[2019-07-13] MEDS: LEVETIRACETAM SOL (5 ML) 100 MG/ML UDC GT SCH ×2 (09:41→20:34)
[2019-07-13] MEDS: FERROUS SULFATE UDC 300 MG/5 ML UDC GT SCH ×3 (09:41→17:43)
[2019-07-13] MEDS: BACLOFEN (10 MG) 10 MG TABLET GT SCH ×2 (09:41→20:34)
[2019-07-13] MEDS: POTASSIUM CHLORIDE 20 MEQ/15 ML GT SCH (09:41)
[2019-07-13] MEDS: THERAHONEY GEL 1.5 OZ TUBE TP SCH ×2 (09:42→20:35)
[2019-07-13] MEDS: Z GUARD REMEDY 4 OZ OINT TP SCH ×2 (09:42→20:35)
[2019-07-13] MEDS: HEPARIN SODIUM, PORCINE 5000 UNITS/1 ML VIAL SQ SCH ×2 (09:42→20:35)
[2019-07-13 20:09] VITALS: BP 129/86
[2019-07-13] MEDS: MULTIVIT W/MINERALS 1 TAB TABLET GT SCH (20:34)
[2019-07-13] MEDS: BASAGLAR SQ SCH (21:07)
[2019-07-13] MEDS: [UNRECOGNIZED DRUG - OTHER] SQ SCH (21:07)
--- NOTE | 2019-07-13 22:28 | NUR ---
PT RECEIVE STABLE ON MV, SETTINGS ARE AC 12 500 +5 , ALARMS ARE ON AND AUDIBLE, SPARE TRACH AND AMBU BAG IS AT BEDSIDE, TRACH PATENT AND SECURED, VENT IS PLUG IS RED OUTLET, WILL CONTINUE TO MONITOR Addendum: 07/13/19 at 2229 by RAHEEM BARTH RT Amended: Links added.
[2019-07-14] MEDS: ALBUTEROL FS 2.5 MG/3 ML VIAL.NEB NEB SCH ×4 (02:28→20:18)
[2019-07-14] MEDS: IPRATROPIUM NEB FS 0.5 MG/2.5 ML AMPUL.NEB NEB SCH ×4 (02:28→20:18)
[2019-07-14] MEDS: POLYVINYL ALCOHOL 15 ML BOTTLE EACHEYE SCH ×4 (05:44→23:16)
[2019-07-14] MEDS: OMEPRAZOLE DR 20 MG GT SCH (05:44)
[2019-07-14] MEDS: INSULIN LISPRO/ASPART 100 UNIT/ML CARTRIDGE SQ PRN ×2 (06:05→18:23)
[2019-07-14] MEDS: BLOOD SUGAR DIAGNOSTIC 1 EACH STRIP IN SCH ×2 (06:05→18:17)
[2019-07-14 07:42] VITALS: BP 102/57
[2019-07-14] MEDS: FERROUS SULFATE UDC 300 MG/5 ML UDC GT SCH ×3 (08:45→16:39)
[2019-07-14] MEDS: METFORMIN 850 MG TABLET GT SCH ×2 (08:45→16:39)
[2019-07-14] MEDS: BACLOFEN (10 MG) 10 MG TABLET GT SCH ×2 (08:46→20:45)
[2019-07-14] MEDS: POTASSIUM CHLORIDE 20 MEQ/15 ML GT SCH (08:46)
[2019-07-14] MEDS: LEVETIRACETAM SOL (5 ML) 100 MG/ML UDC GT SCH ×2 (08:46→20:45)
[2019-07-14] MEDS: ZINC SULFATE 220 MG CAPSULE GT SCH (08:47)
[2019-07-14] MEDS: CHLORHEXIDINE GLUCONATE 15 ML UDC MM SCH ×2 (08:47→20:45)
[2019-07-14] MEDS: ASCORBIC ACID 500 MG TABLET GT SCH ×2 (08:47→16:39)
[2019-07-14] MEDS: PROSTAT (PYXIS) 30 ML UDC GT SCH ×2 (08:49→16:39)
[2019-07-14] MEDS: HEPARIN SODIUM, PORCINE 5000 UNITS/1 ML VIAL SQ SCH ×2 (08:51→20:45)
[2019-07-14] MEDS: Z GUARD REMEDY 4 OZ OINT TP SCH ×2 (09:00→20:45)
[2019-07-14] MEDS: THERAHONEY GEL 1.5 OZ TUBE TP SCH ×2 (09:00→20:45)
[2019-07-14] MEDS: HYDROGEN PEROXIDE 480 ML BOTTLE TP SCH ×2 (09:03→20:18)
[2019-07-14] MEDS: GLUCERNA 1.2 1,000 ML BOTTLE GT PRN (16:38)
[2019-07-14] MEDS: MULTIVIT W/MINERALS 1 TAB TABLET GT SCH (20:45)
[2019-07-14 20:57] VITALS: BP 108/75
[2019-07-14] MEDS: [UNRECOGNIZED DRUG - OTHER] SQ SCH (21:12)
[2019-07-14] MEDS: BASAGLAR SQ SCH (21:12)
[2019-07-15] MEDS: ALBUTEROL FS 2.5 MG/3 ML VIAL.NEB NEB SCH ×4 (00:58→19:34)
[2019-07-15] MEDS: IPRATROPIUM NEB FS 0.5 MG/2.5 ML AMPUL.NEB NEB SCH ×4 (00:58→19:34)
[2019-07-15] MEDS: POLYVINYL ALCOHOL 15 ML BOTTLE EACHEYE SCH ×4 (05:38→23:31)
[2019-07-15] MEDS: BLOOD SUGAR DIAGNOSTIC 1 EACH STRIP IN SCH ×2 (05:39→17:35)
[2019-07-15] MEDS: OMEPRAZOLE DR 20 MG GT SCH (05:39)
[2019-07-15] MEDS: INSULIN LISPRO/ASPART 100 UNIT/ML CARTRIDGE SQ PRN ×2 (05:39→17:41)
[2019-07-15 07:52] VITALS: BP 115/74
[2019-07-15] MEDS: LEVETIRACETAM SOL (5 ML) 100 MG/ML UDC GT SCH ×2 (09:00→20:57)
[2019-07-15] MEDS: ZINC SULFATE 220 MG CAPSULE GT SCH (09:00)
[2019-07-15] MEDS: ASCORBIC ACID 500 MG TABLET GT SCH ×2 (09:00→16:46)
[2019-07-15] MEDS: POTASSIUM CHLORIDE 20 MEQ/15 ML GT SCH (09:00)
[2019-07-15] MEDS: CHLORHEXIDINE GLUCONATE 15 ML UDC MM SCH ×2 (09:00→21:00)
[2019-07-15] MEDS: FERROUS SULFATE UDC 300 MG/5 ML UDC GT SCH ×3 (09:00→16:46)
[2019-07-15] MEDS: THERAHONEY GEL 1.5 OZ TUBE TP SCH ×2 (09:00→21:01)
[2019-07-15] MEDS: PROSTAT (PYXIS) 30 ML UDC GT SCH ×2 (09:00→16:46)
[2019-07-15] MEDS: METFORMIN 850 MG TABLET GT SCH ×2 (09:00→16:46)
[2019-07-15] MEDS: Z GUARD REMEDY 4 OZ OINT TP SCH ×2 (09:00→21:01)
[2019-07-15] MEDS: BACLOFEN (10 MG) 10 MG TABLET GT SCH ×2 (09:00→20:57)
[2019-07-15] MEDS: HEPARIN SODIUM, PORCINE 5000 UNITS/1 ML VIAL SQ SCH ×2 (09:00→21:01)
[2019-07-15] MEDS: HYDROGEN PEROXIDE 480 ML BOTTLE TP SCH ×2 (09:23→21:03)
[2019-07-15] MEDS: GLUCERNA 1.2 1,000 ML BOTTLE GT PRN (15:34)
[2019-07-15 20:14] VITALS: BP 120/69
[2019-07-15] MEDS: MULTIVIT W/MINERALS 1 TAB TABLET GT SCH (21:00)
[2019-07-15] MEDS: BASAGLAR SQ SCH (21:52)
[2019-07-15] MEDS: [UNRECOGNIZED DRUG - OTHER] SQ SCH (21:52)
[2019-07-16] MEDS: IPRATROPIUM NEB FS 0.5 MG/2.5 ML AMPUL.NEB NEB SCH ×4 (01:21→20:26)
[2019-07-16] MEDS: ALBUTEROL FS 2.5 MG/3 ML VIAL.NEB NEB SCH ×4 (01:21→20:26)
[2019-07-16] MEDS: POLYVINYL ALCOHOL 15 ML BOTTLE EACHEYE SCH ×3 (05:35→17:25)
[2019-07-16] MEDS: BLOOD SUGAR DIAGNOSTIC 1 EACH STRIP IN SCH ×2 (05:35→17:26)
[2019-07-16] MEDS: OMEPRAZOLE DR 20 MG GT SCH (05:35)
[2019-07-16] MEDS: INSULIN LISPRO/ASPART 100 UNIT/ML CARTRIDGE SQ PRN ×2 (05:36→17:26)
[2019-07-16 07:49] VITALS: BP 103/67
[2019-07-16] MEDS: HYDROGEN PEROXIDE 480 ML BOTTLE TP SCH ×2 (09:00→20:26)
[2019-07-16] MEDS: ASCORBIC ACID 500 MG TABLET GT SCH ×2 (09:27→17:25)
[2019-07-16] MEDS: FERROUS SULFATE UDC 300 MG/5 ML UDC GT SCH ×3 (09:27→17:25)
[2019-07-16] MEDS: LEVETIRACETAM SOL (5 ML) 100 MG/ML UDC GT SCH ×2 (09:27→21:04)
[2019-07-16] MEDS: CHLORHEXIDINE GLUCONATE 15 ML UDC MM SCH ×2 (09:27→21:05)
[2019-07-16] MEDS: METFORMIN 850 MG TABLET GT SCH ×2 (09:27→17:25)
[2019-07-16] MEDS: BACLOFEN (10 MG) 10 MG TABLET GT SCH ×2 (09:27→21:05)
[2019-07-16] MEDS: HEPARIN SODIUM, PORCINE 5000 UNITS/1 ML VIAL SQ SCH ×2 (09:27→21:05)
[2019-07-16] MEDS: PROSTAT (PYXIS) 30 ML UDC GT SCH ×2 (09:27→17:25)
[2019-07-16] MEDS: POTASSIUM CHLORIDE 20 MEQ/15 ML GT SCH (09:27)
[2019-07-16] MEDS: ZINC SULFATE 220 MG CAPSULE GT SCH (09:27)
[2019-07-16] MEDS: Z GUARD REMEDY 4 OZ OINT TP SCH ×2 (09:28→21:06)
[2019-07-16] MEDS: THERAHONEY GEL 1.5 OZ TUBE TP SCH ×2 (09:28→21:06)
[2019-07-16] MEDS: GLUCERNA 1.2 1,000 ML BOTTLE GT PRN (12:32)
[2019-07-16 20:19] VITALS: BP 131/72
[2019-07-16] MEDS: MULTIVIT W/MINERALS 1 TAB TABLET GT SCH (21:05)
--- NOTE | 2019-07-16 21:33 | NUR ---
PT RECEIVE STABLE ON MV, SETTINGS ARE AC 12 550 +5 ,SPO2 IS MAINTAINED AT GREATER THAN OR EQUAL TO 95%, TRACH PATENT AND SECURED, ALARMS ARE ON AND AUDIBLE, SPARE TRACH AND AMBU BAG IS AT BEDSIDE, VENT IS PLUG IN TO RED OUTLET, WILL CONTINUE TO MONITOR Addendum: 07/16/19 at 2134 by RAHEEM BARTH RT Amended: Links added.
[2019-07-16] MEDS: BASAGLAR SQ SCH (21:48)
[2019-07-16] MEDS: [UNRECOGNIZED DRUG - OTHER] SQ SCH (21:48)
[2019-07-17] MEDS: POLYVINYL ALCOHOL 15 ML BOTTLE EACHEYE SCH ×4 (00:48→18:02)
[2019-07-17] MEDS: ALBUTEROL FS 2.5 MG/3 ML VIAL.NEB NEB SCH ×4 (01:28→19:36)
[2019-07-17] MEDS: IPRATROPIUM NEB FS 0.5 MG/2.5 ML AMPUL.NEB NEB SCH ×4 (01:28→19:36)
[2019-07-17] MEDS: BLOOD SUGAR DIAGNOSTIC 1 EACH STRIP IN SCH ×2 (06:00→18:02)
[2019-07-17] MEDS: OMEPRAZOLE DR 20 MG GT SCH (06:00)
[2019-07-17] MEDS: INSULIN LISPRO/ASPART 100 UNIT/ML CARTRIDGE SQ PRN ×2 (06:02→18:14)
[2019-07-17 07:29] VITALS: BP 116/67
[2019-07-17] MEDS: FERROUS SULFATE UDC 300 MG/5 ML UDC GT SCH ×3 (09:00→17:00)
[2019-07-17] MEDS: THERAHONEY GEL 1.5 OZ TUBE TP SCH ×2 (09:00→21:14)
[2019-07-17] MEDS: CHLORHEXIDINE GLUCONATE 15 ML UDC MM SCH ×2 (09:00→21:13)
[2019-07-17] MEDS: BACLOFEN (10 MG) 10 MG TABLET GT SCH ×2 (09:00→21:10)
[2019-07-17] MEDS: HYDROGEN PEROXIDE 480 ML BOTTLE TP SCH ×2 (09:00→21:58)
[2019-07-17] MEDS: METFORMIN 850 MG TABLET GT SCH ×2 (09:00→17:00)
[2019-07-17] MEDS: ASCORBIC ACID 500 MG TABLET GT SCH ×2 (09:00→17:00)
[2019-07-17] MEDS: LEVETIRACETAM SOL (5 ML) 100 MG/ML UDC GT SCH ×2 (09:00→21:10)
[2019-07-17] MEDS: ZINC SULFATE 220 MG CAPSULE GT SCH (09:00)
[2019-07-17] MEDS: POTASSIUM CHLORIDE 20 MEQ/15 ML GT SCH (09:00)
[2019-07-17] MEDS: HEPARIN SODIUM, PORCINE 5000 UNITS/1 ML VIAL SQ SCH ×2 (09:00→21:14)
[2019-07-17] MEDS: Z GUARD REMEDY 4 OZ OINT TP SCH ×2 (09:00→21:14)
[2019-07-17] MEDS: PROSTAT (PYXIS) 30 ML UDC GT SCH ×2 (09:00→17:00)
--- NOTE | 2019-07-17 15:07 | NUR ---
ERVIN contacted the pt.s responsible alliance party, Tosin Horvath to schedule a time to complete intake paperwork as the pt.s will received new accounts 07/18/2019. The family stated :they will meet with ERVIN 07/19/19 at 1 pm. Noted.
[2019-07-17] MEDS: GLUCERNA 1.2 1,000 ML BOTTLE GT PRN (18:02)
[2019-07-17 20:01] VITALS: BP 113/74
[2019-07-17] MEDS: MULTIVIT W/MINERALS 1 TAB TABLET GT SCH (21:10)
[2019-07-17] MEDS: [UNRECOGNIZED DRUG - OTHER] SQ SCH (22:36)
[2019-07-17] MEDS: BASAGLAR SQ SCH (22:36)
[2019-07-18] MEDS: POLYVINYL ALCOHOL 15 ML BOTTLE EACHEYE SCH ×4 (00:44→17:54)
[2019-07-18] MEDS: IPRATROPIUM NEB FS 0.5 MG/2.5 ML AMPUL.NEB NEB SCH ×4 (01:24→19:34)
[2019-07-18] MEDS: ALBUTEROL FS 2.5 MG/3 ML VIAL.NEB NEB SCH ×4 (01:24→19:34)
[2019-07-18] MEDS: OMEPRAZOLE DR 20 MG GT SCH (05:16)
[2019-07-18] MEDS: BLOOD SUGAR DIAGNOSTIC 1 EACH STRIP IN SCH ×2 (05:57→17:54)
[2019-07-18 07:39] VITALS: BP 105/67
[2019-07-18] MEDS: THERAHONEY GEL 1.5 OZ TUBE TP SCH ×2 (09:00→21:51)
[2019-07-18] MEDS: HYDROGEN PEROXIDE 480 ML BOTTLE TP SCH ×2 (09:00→20:01)
[2019-07-18] MEDS: FERROUS SULFATE UDC 300 MG/5 ML UDC GT SCH ×3 (09:29→17:54)
[2019-07-18] MEDS: METFORMIN 850 MG TABLET GT SCH ×2 (09:29→17:54)
[2019-07-18] MEDS: BACLOFEN (10 MG) 10 MG TABLET GT SCH ×2 (09:30→21:51)
[2019-07-18] MEDS: ASCORBIC ACID 500 MG TABLET GT SCH ×2 (09:30→17:54)
[2019-07-18] MEDS: POTASSIUM CHLORIDE 20 MEQ/15 ML GT SCH (09:30)
[2019-07-18] MEDS: ZINC SULFATE 220 MG CAPSULE GT SCH (09:30)
[2019-07-18] MEDS: LEVETIRACETAM SOL (5 ML) 100 MG/ML UDC GT SCH ×2 (09:30→21:50)
[2019-07-18] MEDS: PROSTAT (PYXIS) 30 ML UDC GT SCH ×2 (09:30→17:54)
[2019-07-18] MEDS: CHLORHEXIDINE GLUCONATE 15 ML UDC MM SCH ×2 (09:31→21:51)
[2019-07-18] MEDS: Z GUARD REMEDY 4 OZ OINT TP SCH ×2 (09:43→21:51)
[2019-07-18] MEDS: HEPARIN SODIUM, PORCINE 5000 UNITS/1 ML VIAL SQ SCH ×2 (09:43→21:00)
[2019-07-18] MEDS: GLUCERNA 1.2 1,000 ML BOTTLE GT PRN (17:55)
[2019-07-18] MEDS: INSULIN LISPRO/ASPART 100 UNIT/ML CARTRIDGE SQ PRN (17:55)
[2019-07-18 19:45] VITALS: BP 107/78
--- NOTE | 2019-07-18 20:33 | NUR ---
PT RECEIVED TRACHED ON MECHANICAL VENTILATION. AMBU BAG/BACK UP TRACH @ BEDSIDE. TX GIVEN, NO ADVERSE REACTIONS NOTED. SX DONE, TRACH SECURED AND PATENT. ALARMS ON AND AUDIBLE. VENT PLUGGED TO RED OUTLET. NO SOB NOTED. WILL MONITOR T/O SHIFT. Addendum: 07/18/19 at 2032 by ABIOLA COMBS RT Amended: Links added.
[2019-07-18] MEDS: MULTIVIT W/MINERALS 1 TAB TABLET GT SCH (21:51)
[2019-07-18] MEDS: BASAGLAR SQ SCH (22:44)
[2019-07-18] MEDS: [UNRECOGNIZED DRUG - OTHER] SQ SCH (22:44)
[2019-07-19] MEDS: POLYVINYL ALCOHOL 15 ML BOTTLE EACHEYE SCH ×2 (00:21→05:22)
[2019-07-19] MEDS: IPRATROPIUM NEB FS 0.5 MG/2.5 ML AMPUL.NEB NEB SCH ×2 (01:59→07:44)
[2019-07-19] MEDS: ALBUTEROL FS 2.5 MG/3 ML VIAL.NEB NEB SCH ×2 (02:00→07:44)
[2019-07-19] MEDS: OMEPRAZOLE DR 20 MG GT SCH (05:22)
[2019-07-19] MEDS: BLOOD SUGAR DIAGNOSTIC 1 EACH STRIP IN SCH (05:22)
[2019-07-19] MEDS: INSULIN LISPRO/ASPART 100 UNIT/ML CARTRIDGE SQ PRN (05:29)
[2019-07-19 07:28] VITALS: BP 108/73
== END 2019-07-17 23:59 | disposition still patient (30) | DRG 130 ==
LOC: SA
PROC: 5A1955Z Respiratory Ventilation, Greater than 96 Consecutive Hours (ICD-10-PCS; principal; 2018-07-18)
DX: J96.11 Chronic respiratory failure with hypoxia (principal); G93.1 Anoxic brain damage, not elsewhere classified; R40.3 Persistent vegetative state; R53.2 Functional quadriplegia; R13.10 Dysphagia, unspecified; D69.2 Other nonthrombocytopenic purpura; S06.5X0S Traumatic subdural hemorrhage without loss of consciousness, sequela; E66.01 Morbid (severe) obesity due to excess calories; G25.3 Myoclonus; Z99.11 Dependence on respirator [ventilator] status; Z93.0 Tracheostomy status; E11.9 Type 2 diabetes mellitus without complications; D64.9 Anemia, unspecified; Z93.1 Gastrostomy status; X58.XXXS Exposure to other specified factors, sequela; H10.9 Unspecified conjunctivitis; S06.6X0S Traumatic subarachnoid hemorrhage without loss of consciousness, sequela; D63.8 Anemia in other chronic diseases classified elsewhere; Z68.29 Body mass index [BMI] 29.0-29.9, adult; I25.10 Atherosclerotic heart disease of native coronary artery without angina pectoris; L60.3 Nail dystrophy; Z74.01 Bed confinement status; Z79.899 Other long term (current) drug therapy; Z86.73 Personal history of transient ischemic attack (TIA), and cerebral infarction without residual deficits
CPT/HCPCS: 31720; 36415; 36600; 71045-TC; 74018; 80048-TC; 80053-TC; 80202-TC; 81000-TC; 82247-TC; 82248-TC; 82803-TC; 82962-TC; 83605-TC; 85025-TC; 87040-TC; 87086-TC; 87186-TC; 93970-TC; 94003-TC; 94664-TC; 94760-TC; 94762-TC; 94799-TC; 99082-TC; A4217; A4623; A6248; A7526; J0692; J0696; J1644; J1815; J1953; J2543; J3370; J7030; J7050; J7060; Q2036; Q9963

== ENCOUNTER 2020-06-17 09:38 | Inpatient (IN) | payer MEDICAID ==
--- NOTE | 2020-06-16 23:55 | NUR ---
Patient still febrile 101.4 Tylenol administered.Bed bath rendered.Complete linens changed. BM x1 soft brown stool.kept clean and dry.Turned and repositioned.FSBS checked coverage given per sliding scale.No distress noted. Addendum: 06/18/20 at 0450 by CECE BORDEN RN please disregard.Wrong date entry.
[2020-06-17] VITALS (27 sets, daily range): BP systolic 81–135; BP diastolic 53–89
[~2020-06-17] VITALS: Ht 160 cm; Wt 80.5 kg
--- NOTE | 2020-06-17 09:20 | NUR ---
RT PATIENT REC'D A TRANSFER FROM [facility] ON [facility] TRACHED. PATIENT PLACED ON SETTINGS PER MD. REYES BAG AT HOB Addendum: 06/17/20 at 1617 by MERISSA BHATT RT Amended: Links added.
--- NOTE | 2020-06-17 09:20 | NUR ---
CORRECTIONS COUNSELOR PT ADMITTED INTO ICU FROM [facility] FOR ABNORMAL BLOOD GASES. REPORT RECEIVED FROM [facility] RN.
[2020-06-17] MEDS ORDERED: IV NS 0.9% 1,000 ML IV ONE ×2 (10:30→15:00)
[2020-06-17] MEDS ORDERED: VANCOMYCIN 1 GM in IV D5W 250 ML IV ONE (10:30)
[2020-06-17] MEDS ORDERED: MEROPENEM 500 MG in IV NS 0.9% 50 ML IV SCH (10:30)
[2020-06-17] MEDS ORDERED: MEROPENEM 1 G in IV NS 0.9% 100 ML IV ONE (11:00)
[2020-06-17] MEDS: HEPARIN SODIUM, PORCINE 5000 UNITS/1 ML VIAL SQ SCH ×2 (11:40→17:35)
[2020-06-17 11:52] LABS: BASOPHILS # (AUTO) 0.1 /CMM (0.0-0.2); BASOPHILS % (AUTO) 1.7 % (0.0-2.0); EOSINOPHILS % (AUTO) 1.5 % (0.0-6.0); HEMATOCRIT 30 % (33-45); HEMOGLOBIN 10.3 g/dL (11.5-14.8); LYMPHOCYTES # (AUTO) 2.1 /CMM (0.8-4.8); LYMPHOCYTES % (AUTO) 25.1 % (20.0-44.0); MEAN CORPUSCULAR HGB CONC 35 g/dl (31.0-36.0); MEAN CORPUSCULAR VOLUME 91 fL (82-100); MONOCYTES # (AUTO) 0.4 /CMM (0.1-1.30); MONOCYTES % (AUTO) 5.2 % (2.0-12.0); NEUTROPHILS # (AUTO) 5.7 /CMM (1.8-8.9); NEUTROPHILS % (AUTO) 66.5 % (43.0-81.0); PLATELET COUNT (AUTO) 330 /CMM (150-450); WHITE BLOOD COUNT (AUTO) 8.5 K/uL (4.3-11.0)
--- NOTE | 2020-06-17 12:00 | NUR ---
ICU/RN:RECEIVED REPORT FROM JOSÉ MIGUEL DASILVA RN. PT TRACH TO VENT WITH SETTINGS ORDERED. PT REACTS TO PAINFUL STIMULI, DOES NOT FOLLOW COMMANDS. SINUS TACH ON TELE. TEMP NOTED, COOLING MEASURES APPLIED, WILL CONTINUE TO MONITOR. GTUBE IN PLACE, CLAMPED, NPO AT THIS TIME. PT TURNED AND REPOSITIONED. ALL NEEDS WILL BE ATTENDED TO, SAFETY MEASURES TAKEN, BED IN LOW POSITION, SIDE RAILS UP, CALL LIGHT WITHIN REACH.
[2020-06-17 12:19] LABS: ABG BASE EXCESS 3.5 mmol/L; ABG OXYGEN SATURATION 99.2 % (92.0-98.5); ABG PCO2 47.1 mmHg (35.0-45.0); ABG PH 7.404 (7.350-7.450); ABG PO2 194.5 mmHg (75.0-100.0); AaDO2 326.5 mmHg; COHb 0.3 % (0.5-1.5); MetHb 0.3 % (0.0-1.5); O2Hb 98.6 % (94.0-97.0); PEEP,BG 8 cm H2O; SITE, ABG Right Radial
[2020-06-17] MEDS ORDERED: INSU100V7 SQ (14:15)
[2020-06-17] MEDS ORDERED: HYDR1SOL TD (14:15)
[2020-06-17] MEDS ORDERED: ALLA266C2 TP (14:15)
[2020-06-17] MEDS ORDERED: ACET650S26 GT (14:15)
[2020-06-17] MEDS ORDERED: ALBU2.5V38 IH (14:15)
[2020-06-17] MEDS ORDERED: CHLO473M5 MM (14:15)
[2020-06-17] MEDS ORDERED: BISA10SU11 RC (14:15)
[2020-06-17] MEDS ORDERED: HEPA50008 SQ (14:15)
[2020-06-17] MEDS ORDERED: ASCO-352 GT (14:15)
[2020-06-17] MEDS ORDERED: INSU100V27 SQ (14:15)
[2020-06-17] MEDS ORDERED: AMIN30LI2 GT (14:15)
[2020-06-17] MEDS ORDERED: NUT.237L30 GT (14:15)
[2020-06-17] MEDS ORDERED: METF-441 GT (14:15)
[2020-06-17] MEDS ORDERED: DEXT50DI8 IV (14:15)
[2020-06-17] MEDS ORDERED: OMEP20CA15 GT (14:15)
[2020-06-17] MEDS ORDERED: MULT-447 GT (14:15)
[2020-06-17] MEDS ORDERED: BACL10TA GT (14:15)
[2020-06-17] MEDS ORDERED: ZINC1CAP3 GT (14:15)
[2020-06-17] MEDS ORDERED: TRIA15OI2 TP (14:15)
[2020-06-17] MEDS ORDERED: IPRA0.2S9 IH (14:15)
[2020-06-17] MEDS ORDERED: FERR300L GT (14:15)
[2020-06-17] MEDS ORDERED: POLY17PO4 GT (14:15)
[2020-06-17] MEDS ORDERED: POLY15DR40 EACHEYE (14:15)
[2020-06-17] MEDS ORDERED: BLOO-668 IN (14:15)
[2020-06-17] MEDS ORDERED: LEVE1000 GT (14:15)
[2020-06-17] MEDS ORDERED: IPRATROPIUM NEB FS 0.5 MG/2.5 ML AMPUL.NEB IH PRN (15:00)
[2020-06-17] MEDS ORDERED: MORPHINE SULFATE INJ 2 MG/ML DISP.SYRIN IV PRN (15:00)
[2020-06-17] MEDS ORDERED: MAGNESIUM HYDROXIDE 30 ML UDC PO PRN (15:00)
[2020-06-17] MEDS ORDERED: MAG HYDROX/AL HYDROX/SIMETH 30 ML UDC PO PRN (15:00)
[2020-06-17] MEDS ORDERED: ALBUTEROL FS 2.5 MG/3 ML VIAL.NEB IH PRN (15:00)
[2020-06-17] MEDS ORDERED: ONDANSETRON HCL/PF 4 MG/2 ML VIAL IVP PRN (15:00)
[2020-06-17] MEDS ORDERED: DEXTROSE 50%-WATER 50 ML DISP.SYRIN IV PRN ×2 (15:00→16:00)
[2020-06-17] MEDS ORDERED: POLYETHYLENE GLYCOL 3350 17 GM POWD.PACK GT PRN (15:00)
[2020-06-17] MEDS ORDERED: HYDROCODONE/APAP 5/325MG TABLET GT PRN (15:00)
[2020-06-17] MEDS ORDERED: Z GUARD REMEDY 2 OZ OINT TP PRN (15:00)
[2020-06-17] MEDS ORDERED: BISACODYL SUPP (10 MG) 10 MG/SUPP.RECT SUPP.RECT RC PRN (15:00)
[2020-06-17 16:28] LABS: CALCIUM, SERUM 9.6 mg/dL (8.5-10.1); CARBON DIOXIDE 26 mmol/L (21-32); CHLORIDE 95 mmol/L (98-107); CREATININE 0.9 mg/dL (0.6-1.3); GLUCOSE 284 mg/dL (74-106); POTASSIUM 3.9 mmol/L (3.5-5.1); SODIUM SERUM 136 mmol/L (136-145); UREA NITROGEN, BLOOD 29 mg/dL (7-18)
--- NOTE | 2020-06-17 16:30 | NUR ---
ICU/RN: TEMP OF 101.2 NOTED. PRN TYLENOL GIVEN, COOLING MEASURES APPLIED. WILL CONTINUE TO MONITOR.
[2020-06-17] MEDS: METFORMIN 850 MG TABLET GT SCH (16:54)
[2020-06-17] MEDS: PROSTAT (PYXIS) 30 ML UDC GT SCH (16:54)
[2020-06-17] MEDS: ASCORBIC ACID 500 MG TABLET GT SCH (16:54)
[2020-06-17] MEDS: FERROUS SULFATE UDC 300 MG/5 ML UDC GT SCH (16:54)
[2020-06-17] MEDS ORDERED: Medication Not On Formulary EA (Amino Acids/Protein Hydrolys (Pro-Stat Liquid) 30 ML) GT SCH (17:00)
[2020-06-17] MEDS: ACETAMINOPHEN 650 MG/20.3 ML UDC GT PRN ×2 (17:18→23:23)
[2020-06-17] MEDS: BLOOD SUGAR DIAGNOSTIC 1 EACH STRIP IN SCH ×2 (17:34→23:40)
[2020-06-17] MEDS: INSULIN REGULAR, HUMAN 100 UNIT/ML 3 ML VIAL SQ PRN ×2 (17:34→23:41)
[2020-06-17] MEDS: POLYVINYL ALCOHOL 15 ML BOTTLE EACHEYE SCH ×2 (18:07→23:23)
[2020-06-17] MEDS: IV NS 0.9% 1,000 ML IV PRN ×2 (18:19→22:15)
[2020-06-17 18:48] LABS: BILIRUBIN,URINE NEGATIVE (NEGATIVE); BLOOD, URINE MODERATE Ery/uL (NEGATIVE); COLOR,URINE YELLOW (YELLOW); LEUKOCYTE ESTERASE ,URINE LARGE (NEGATIVE); NITRITE, URINE NEGATIVE (NEGATIVE); PH,URINE 6.5 (5.0-8.0); PROTEIN,URINE 30 mg/dl (NEGATIVE); UGLUCOSE NEGATIVE (NEGATIVE); UROBILINOGEN,URINE 0.2 EU/dL (0.2)
[2020-06-17 19:00] LABS: BACTERIA,URINE Few /HPF (None Seen); RBC,URINE 21-50 /HPF (0-2); WBC,URINE TOO NUMEROUS TO COUN /HPF (0-3)
[2020-06-17 19:01] LABS: SQUAMOUS EPITHELIAL CELL,UR Rare /HPF (None Seen); YEAST,URINE Few /HPF (None Seen)
--- NOTE | 2020-06-17 19:11 | NUR ---
ICU/RN: ENDING NOTES,AM REPORT ENDORSED TO NIGHT NURSE FOR HUDSON. PT TRACH TO VENT WITH SETTINGS ORDERED. NO ACUTE DISTRESS NOTED. SINUS TACH ON TELE. TEMP NOTED, TYLENOL GIVEN, COOLING MEASURES TAKEN, WILL REASSESS. KAM IN PLACE, DRAINING YELLOW URINE. PIV'S PATENT AND INTACT, TURNED AND REPOSITIONED. ALL NEEDS ATTENDED TO, SAFETY MEASURES TAKEN, BED IN LOW POSITION, SIDE RAILS UP, CALL LIGHT WITHIN REACH. WILL CONTINUE CARE. ENDORSED TO NIGHT NURSE THE NEED FOR A RESPIRATORY CX, URINE CX PENDING.
[2020-06-17] MEDS: IPRATROPIUM NEB FS 0.5 MG/2.5 ML AMPUL.NEB IH SCH (19:36)
[2020-06-17] MEDS: ALBUTEROL FS 2.5 MG/3 ML VIAL.NEB NEB SCH (19:36)
--- NOTE | 2020-06-17 20:00 | NUR ---
Received patient obtunded with trach to mechanical vent on full vent support.Vent settings well tolerated .No acute respiratory distress noted.Febrile 101.2.Received Tylenol earlier dose not due.Continuous cooling measures done. ST 103-114.Normotensive.NPO with GT clamped and patent.Maintenance IV Fluid infusing well.FC to gravity drainage. Turned and repositioned.Continue to monitor.
--- NOTE | 2020-06-17 20:07 | NUR ---
Received Pt. on vent via trach shiley 6 AC 12 500 60% +8. Pt. altered. Trach secure via trach tie. Suctioned moderate amount of thick yellow secretions. Ambu bag at bedside. Addendum: 06/17/20 at 2009 by SHAUNNA OLIVARES RT Amended: Links added.
[2020-06-17 20:41] LABS: BILIRUBIN,DIRECT 0.1 mg/dL (0.0-0.2); BILIRUBIN,TOTAL 0.3 mg/dL (0.2-1.0)
[2020-06-17] MEDS ORDERED: BLOOD SUGAR DIAGNOSTIC 1 EACH STRIP IN SCH (21:00)
[2020-06-17] MEDS ORDERED: IV NS 0.9% 250 ML IV PRN (21:00)
[2020-06-17] MEDS ORDERED: MEROPENEM 1 G in IV NS 0.9% 100 ML IV SCH (21:00)
[2020-06-17] MEDS: MEROPENEM 1 G in IV NS 0.9% 100 ML IV SCH (21:00)
[2020-06-17] MEDS ORDERED: Medication Not On Formulary EA (Levetiracetam (Keppra) 1,000 MG) GT SCH (21:00)
[2020-06-17] MEDS ORDERED: FIXODENT DENTURE ADHESIVE TUBE MM SCH (21:00)
[2020-06-17] MEDS: CHLORHEXIDINE GLUCONATE 15 ML UDC MM SCH (21:01)
[2020-06-17] MEDS: MULTIVIT W/MINERALS 1 TAB TABLET GT SCH (21:01)
[2020-06-17] MEDS: BACLOFEN (10 MG) 10 MG TABLET GT SCH (21:01)
[2020-06-17] MEDS: LEVETIRACETAM SOL (5 ML) 100 MG/ML UDC GT SCH (21:01)
[2020-06-17] MEDS: TRIAMCINOLONE OINT 0.1% 15 GM TUBE TP SCH (21:02)
[2020-06-17] MEDS: Z GUARD REMEDY 2 OZ OINT TP SCH (21:03)
[2020-06-17] MEDS ORDERED: INSULIN GLARGINE HUM REC ANLOG 26 UNIT SQ SCH (22:00)
[2020-06-17] MEDS: VANCOMYCIN 0.75 GM in IV D5W 250 ML IV SCH (22:11)
[2020-06-17] MEDS: INSULIN GLARGINE, 100 UNIT/ML CARTRIDGE SQ SCH (22:13)
--- NOTE | 2020-06-17 23:55 | NUR ---
Patient still febrile t-max 101.4 Tylenol administered as PRN.Bed bath rendered.Complete linens changed.BM X1 soft brown stool.Kept clean and dry.Turned and repositioned.FSBS Checked and coverage given per sliding scale.No distress noted.
[2020-06-18] VITALS (33 sets, daily range): BP systolic 84–135; BP diastolic 57–87
[2020-06-18] MEDS: ALBUTEROL FS 2.5 MG/3 ML VIAL.NEB NEB SCH ×4 (01:39→19:30)
[2020-06-18] MEDS: IPRATROPIUM NEB FS 0.5 MG/2.5 ML AMPUL.NEB IH SCH ×4 (01:39→19:30)
[2020-06-18] MEDS: HEPARIN SODIUM, PORCINE 5000 UNITS/1 ML VIAL SQ SCH ×3 (02:22→17:37)
[2020-06-18] MEDS: MEROPENEM 1 G in IV NS 0.9% 100 ML IV SCH ×3 (05:00→20:59)
[2020-06-18 05:15] LABS: ALBUMIN 2.9 g/dL (3.4-5.0); BILIRUBIN,DIRECT 0.1 mg/dL (0.0-0.2); BILIRUBIN,TOTAL 0.3 mg/dL (0.2-1.0); CALCIUM, SERUM 8.9 mg/dL (8.5-10.1); CREATININE 0.8 mg/dL (0.6-1.3); PHOSPHORUS 3.2 mg/dL (2.5-4.9); TOTAL PROTEIN, SERUM 7.3 g/dL (6.4-8.2)
[2020-06-18 05:28] LABS: THYROID STIMULATING HORMONE 1.56 uIU/mL (0.358-3.74)
[2020-06-18] MEDS ORDERED: OMEPRAZOLE 20 MG CAPSULE.DR GT SCH (06:00)
[2020-06-18] MEDS: PANTOPRAZOLE 40 MG/PACK PACK GT SCH (06:15)
[2020-06-18] MEDS: BLOOD SUGAR DIAGNOSTIC 1 EACH STRIP IN SCH ×4 (06:27→23:34)
[2020-06-18] MEDS: POLYVINYL ALCOHOL 15 ML BOTTLE EACHEYE SCH ×4 (06:27→23:34)
[2020-06-18] MEDS: INSULIN REGULAR, HUMAN 100 UNIT/ML 3 ML VIAL SQ PRN ×4 (06:29→23:39)
--- NOTE | 2020-06-18 07:05 | NUR ---
Patient resting.VSS,SR.AM care rendered.All due medications given.No acute distress noted. Turned and repositioned.All needs met.Report given to day shift RN for yenny.
--- NOTE | 2020-06-18 08:00 | NUR ---
ICU/RN: INITIAL NOTES,AM RECEIVED REPORT FROM NIGHT NURSE. PT TRACH TO VENT WITH SETTINGS ORDERED. PT REACTS TO PAINFUL STIMULI, DOES NOT FOLLOW COMMANDS. SINUS TACH ON TELE. TEMP NOTED, COOLING MEASURES APPLIED, WILL CONTINUE TO MONITOR. GTUBE IN PLACE, CLAMPED, NPO AT THIS TIME WILL CONTACT MD FOR ORDERS. PIVS PATENT AND INTACT, NO S/S OF INFECTION OR INFILTRATION NOTED, IVF INFUSING ORDERED. PT TURNED AND REPOSITIONED. ALL NEEDS WILL BE ATTENDED TO, SAFETY MEASURES TAKEN, BED IN LOW POSITION, SIDE RAILS UP, CALL LIGHT WITHIN REACH.
--- NOTE | 2020-06-18 08:03 | NUR ---
WOUND CARE CONSULT: REVIEWED CHART, NURSING DOCUMENTATION AND PHOTO WHICH INDICATES REDNESS/RASH TO BUTTOCKS, PRESENT ON ADMISSION. RECOMMENDATIONS MADE FOR SKIN PROTECTION. DISCUSSED WITH NURSING STAFF. FIRST STEP LOW AIRLOSS MATTRESS IS ON ORDER. WILL SEE PRNSonya HUNT IN AGREEMENT WITH PLAN OF CARE.
--- NOTE | 2020-06-18 08:10 | NUR ---
ICU/RN:RECEIVED NEW ORDERS FROM WOUND NURSE. WILL FOLLOW THROUGH
[2020-06-18 08:11] LABS: BASOPHILS # (AUTO) 0.2 /CMM (0.0-0.2); BASOPHILS % (AUTO) 1.6 % (0.0-2.0); EOSINOPHILS % (AUTO) 1.4 % (0.0-6.0); HEMATOCRIT 25 % (33-45); HEMOGLOBIN 8.8 g/dL (11.5-14.8); LYMPHOCYTES # (AUTO) 2.2 /CMM (0.8-4.8); LYMPHOCYTES % (AUTO) 19.2 % (20.0-44.0); MEAN CORPUSCULAR HGB CONC 35 g/dl (31.0-36.0); MEAN CORPUSCULAR VOLUME 91 fL (82-100); MONOCYTES # (AUTO) 0.5 /CMM (0.1-1.30); MONOCYTES % (AUTO) 4.4 % (2.0-12.0); NEUTROPHILS # (AUTO) 8.4 /CMM (1.8-8.9); NEUTROPHILS % (AUTO) 73.4 % (43.0-81.0); PLATELET COUNT (AUTO) 393 /CMM (150-450); WHITE BLOOD COUNT (AUTO) 11.4 K/uL (4.3-11.0)
[2020-06-18] MEDS ORDERED: Medication Not On Formulary EA (Multivitamin With Minerals (One Daily Complete) 1 EACH) GT SCH (09:00)
[2020-06-18] MEDS: LEVETIRACETAM SOL (5 ML) 100 MG/ML UDC GT SCH ×2 (09:25→21:14)
[2020-06-18] MEDS: FERROUS SULFATE UDC 300 MG/5 ML UDC GT SCH ×3 (09:25→17:10)
[2020-06-18] MEDS: METFORMIN 850 MG TABLET GT SCH ×2 (09:26→17:10)
[2020-06-18] MEDS: ZINC SULFATE 220 MG CAPSULE GT SCH (09:27)
[2020-06-18] MEDS: BACLOFEN (10 MG) 10 MG TABLET GT SCH ×2 (09:27→21:14)
[2020-06-18] MEDS: CHLORHEXIDINE GLUCONATE 15 ML UDC MM SCH ×2 (09:27→21:14)
[2020-06-18] MEDS: ASCORBIC ACID 500 MG TABLET GT SCH ×2 (09:27→17:10)
[2020-06-18] MEDS: CLOTRIMAZOLE 1% 15 GM TUBE TP SCH ×2 (09:28→17:10)
[2020-06-18] MEDS: TRIAMCINOLONE OINT 0.1% 15 GM TUBE TP SCH ×2 (09:28→21:16)
[2020-06-18] MEDS: Z GUARD REMEDY 2 OZ OINT TP SCH ×2 (09:28→21:14)
[2020-06-18] MEDS: VANCOMYCIN 0.75 GM in IV D5W 250 ML IV SCH ×2 (09:34→21:58)
[2020-06-18] MEDS: PROSTAT (PYXIS) 30 ML UDC GT SCH ×2 (09:35→17:10)
[2020-06-18] MEDS: IV NS 0.9% 1,000 ML IV PRN ×2 (09:42→18:53)
[2020-06-18] MEDS ORDERED: DEXTROSE 50%-WATER 50 ML DISP.SYRIN IV PRN (13:30)
--- NOTE | 2020-06-18 16:00 | NUR ---
ICU/RN: CALLED FOR TUBE FEEDING ORDERS. TLO ORDERS PLACED. WILL START FEEDING WHEN IT ARRIVES AT THE SAME RATE [facility] PER MD ORDERS. GTUBE PLACE IN PLACE, FLUSHED.
[2020-06-18] MEDS: GLUCERNA 1.2 1,000 ML BOTTLE NG PRN (17:11)
--- NOTE | 2020-06-18 18:30 | NUR ---
ICU/RN: KCI MATTRESS APPLIED, WOUND CARE ORDERED.
--- NOTE | 2020-06-18 18:56 | NUR ---
ICU/RN: ENDING NOTES,AM REPORT WILL BE ENDORSED TO NIGHT NURSE FOR HUDSON. PT TRACH TO VENT WITH SETTINGS ORDERED. NO ACUTE DISTRESS NOTED. SINUS TACH ON TELE. KAM IN PLACE, DRAINING YELLOW URINE. PIV'S PATENT AND INTACT, TURNED AND REPOSITIONED. ALL NEEDS ATTENDED TO, SAFETY MEASURES TAKEN, BED IN LOW POSITION, SIDE RAILS UP, CALL LIGHT WITHIN REACH. GTUBE FEEDING STARTED, TOLERATING WELL. VSS, LOW GRADE FEVER AT THE MOMENT, COOLING MEASURES APPLIED. WILL CONTINUE CARE.
--- NOTE | 2020-06-18 19:45 | NUR ---
ICU/AGENCY OPERATOR RECEIVED REPORT FROM DAY NURSE. SEE FLOWSHEET FOR ASSESSMENT,THERE IS ONE SKIN ISSUES THAT IS ADDRESSED. PT IS OBTUNDED. PT HAS TRACH, TOLERATING CURRENT VENT SETTINGS WITH SATURATION AT 95-99%. PT WAS TURN AND REPOSITION FOR COMFORT AND CARE. WILL CONTINUE TO MONITOR THIS PT, NO ACUTE DISTRESS SEEN AT THIS TIME.
--- NOTE | 2020-06-18 20:15 | NUR ---
RT NOTE TX NOT GIVEN DUE TO PENDING COVID RESULTS. RN YOGI AWARE. WILL CONTINUE TO MONITOR CLOSELY.
[2020-06-18] MEDS: MULTIVIT W/MINERALS 1 TAB TABLET GT SCH (21:14)
[2020-06-18] MEDS: INSULIN GLARGINE, 100 UNIT/ML CARTRIDGE SQ SCH (21:42)
--- NOTE | 2020-06-18 22:00 | NUR ---
ICU/CIVIL RIGHTS ATTORNEY PT WAS GIVEN ORAL CARE. PT WAS THEN PROVIDED PM CARE AT THIS TIME, PT TOLERATED THIS WELL. PT REMAINS ON CURRENT VENT SETTING, WITH SATURATION AT 100%. PT WAS TURNED AND REPOSITIONED FOR COMFORT AND CARE. CALL LIGHT WITHIN REACH, NO ACUTE DISTRESS SEEN. WILL CONTINUE TO MONITOR THIS PT.
--- NOTE | 2020-06-18 23:29 | NUR ---
RT NOTE PT RECEIVED TRACHED ON MECHANICAL VENTILATION. CUFF INFLATED. SX DONE, TRACH SECURED AND PATENT. VENT PLUGGED TO RED OUTLET. ALARMS ON AND AUDIBLE. TRACH CARE DONE. DEL CID CHANGED. NO DISTRESS NOTED AT THIS TIME. WILL CONTINUE TO MONITOR T/O SHIFT. Addendum: 06/18/20 at 2330 by ABIOLA COMBS RT Amended: Links added.
[2020-06-19] VITALS (22 sets, daily range): BP systolic 96–126; BP diastolic 55–81
--- NOTE | 2020-06-19 | NUR ---
ICU/OFFSET SECOND PRESS OPERATOR PT'S MIDNIGHT BLOOD SUGAR IS 165, THIS WAS COVERED WITH THE SLIDING SCALE ORDERED BY . WILL CONTINUE TO CLOSELY THIS PT'S SUGAR ORDERED BY MD AND HOSPITAL PROTOCOL.
--- NOTE | 2020-06-19 01:45 | NUR ---
ICU/PLATE SHOP HELPER PT WAS GIVEN ORAL CARE. THEN GIVEN AM CARE, WHICH SHE TOLERATED WELL. PT REMAINS ON CURRENT VENT SETTING WITH SATURATION AT 100%. PT WAS TURNED AND REPOSITIONED FOR COMFORT AND CARE. NO ACUTE DISTRESS SEEN. WILL CONTINUE TO MONITOR THIS PT. Addendum: 06/19/20 at 0658 by YOGI DONOVAN LVN PT WAS GIVEN ICE BATH DUE TO INCREASED TEMP. THROUGH THE SHIFT FROM 99.6 TO 100.9 RECTALLY. WILL COTINUE TO MONITOR THIS PTS TEMP.
[2020-06-19] MEDS: IPRATROPIUM NEB FS 0.5 MG/2.5 ML AMPUL.NEB IH SCH ×4 (01:46→20:22)
[2020-06-19] MEDS: ALBUTEROL FS 2.5 MG/3 ML VIAL.NEB NEB SCH ×4 (01:46→20:22)
[2020-06-19] MEDS: HEPARIN SODIUM, PORCINE 5000 UNITS/1 ML VIAL SQ SCH ×3 (02:59→18:26)
--- NOTE | 2020-06-19 03:45 | NUR ---
ICU/HYDRAULIC GOVERNOR ASSEMBLER AM LABS WERE DONE FOR THIS PT, AWAIT FOR ANY ABNORMAL RESULTS.
[2020-06-19 04:38] LABS: BASOPHILS # (AUTO) 0.1 /CMM (0.0-0.2); BASOPHILS % (AUTO) 1.5 % (0.0-2.0); EOSINOPHILS % (AUTO) 2.4 % (0.0-6.0); HEMATOCRIT 27 % (33-45); HEMOGLOBIN 8.9 g/dL (11.5-14.8); LYMPHOCYTES # (AUTO) 2.5 /CMM (0.8-4.8); LYMPHOCYTES % (AUTO) 29.6 % (20.0-44.0); MEAN CORPUSCULAR HGB CONC 33 g/dl (31.0-36.0); MEAN CORPUSCULAR VOLUME 93 fL (82-100); MONOCYTES # (AUTO) 0.5 /CMM (0.1-1.30); MONOCYTES % (AUTO) 5.9 % (2.0-12.0); NEUTROPHILS # (AUTO) 5.1 /CMM (1.8-8.9); NEUTROPHILS % (AUTO) 60.6 % (43.0-81.0); PLATELET COUNT (AUTO) 284 /CMM (150-450); RED BLOOD CELL COUNT(AUTO) 2.88 MIL/uL (4.0-5.2); WHITE BLOOD COUNT (AUTO) 8.3 K/uL (4.3-11.0)
[2020-06-19 04:50] LABS: CALCIUM, SERUM 8.6 mg/dL (8.5-10.1); CREATININE 0.7 mg/dL (0.6-1.3); POTASSIUM 4.2 mmol/L (3.5-5.1)
[2020-06-19] MEDS: MEROPENEM 1 G in IV NS 0.9% 100 ML IV SCH ×3 (04:51→21:09)
[2020-06-19] MEDS: ACETAMINOPHEN 650 MG/20.3 ML UDC GT PRN (04:59)
[2020-06-19] MEDS: PANTOPRAZOLE 40 MG/PACK PACK GT SCH (05:00)
[2020-06-19] MEDS: POLYVINYL ALCOHOL 15 ML BOTTLE EACHEYE SCH ×3 (05:00→17:22)
--- NOTE | 2020-06-19 05:00 | NUR ---
ICU/DRUM PULLER PT WAS GIVEN TYLENOL VIA G/TUBE FOR TEMP 101.3 RECTALLY. WILL CONTINUE TO MONITOR THIS PT AND HER TEMP.
[2020-06-19] MEDS: BLOOD SUGAR DIAGNOSTIC 1 EACH STRIP IN SCH ×3 (05:24→18:05)
[2020-06-19] MEDS: INSULIN REGULAR, HUMAN 100 UNIT/ML 3 ML VIAL SQ PRN ×3 (05:27→18:15)
--- NOTE | 2020-06-19 07:00 | NUR ---
RESEARCH DEVELOPMENT MANAGER RECIVED PATIENT FROM PM SHIFT. PATIENT NONVERBAL OPENS EYES . PATIENT DOES NOT RESPOND TO QUESTIONS. PATINT SR/ ST ON ENTERAL SENIOR INTEGRATION DEVELOPER. PATIENT HAS TEMP 99.9 WHEN RECEIVED. PATIENT HAS GTUBE PATENT AND INTACT WITH FEEDING SET PER RECOMMENDATION. PATIENT F/C WITH YELLOW CLEAR URINE. SARAL REDNESS AND WITH MEPILEX COVERED WOUND GLUCERNA @ 65 ML/HR ON VENT WITH VENT SETTINGS PRESCRIBED BY DR. STEVENSON SOB, NO ACUTE RESPIRATORY DISTRESS @ THIS TIME. R WRIST 2 NS @ 100 ML/ HR R WRIST 20 NS @ TKO . BED LOCKED LOWEST POSITION CALL LIGHT WITH IN REACH ALL SAFETY MEASURES IMPLEMENTED PER HOSPITAL POLICY
[2020-06-19] MEDS: ZINC SULFATE 220 MG CAPSULE GT SCH (09:23)
[2020-06-19] MEDS: LEVETIRACETAM SOL (5 ML) 100 MG/ML UDC GT SCH ×2 (09:23→21:08)
[2020-06-19] MEDS: FERROUS SULFATE UDC 300 MG/5 ML UDC GT SCH ×3 (09:23→17:22)
[2020-06-19] MEDS: ASCORBIC ACID 500 MG TABLET GT SCH ×2 (09:23→17:22)
[2020-06-19] MEDS: METFORMIN 850 MG TABLET GT SCH ×2 (09:23→17:22)
[2020-06-19] MEDS: BACLOFEN (10 MG) 10 MG TABLET GT SCH ×2 (09:23→21:08)
[2020-06-19] MEDS: CHLORHEXIDINE GLUCONATE 15 ML UDC MM SCH ×2 (09:23→21:08)
[2020-06-19] MEDS: PROSTAT (PYXIS) 30 ML UDC GT SCH ×2 (09:24→17:00)
[2020-06-19] MEDS: VANCOMYCIN 0.75 GM in IV D5W 250 ML IV SCH ×2 (09:24→22:36)
[2020-06-19] MEDS: CLOTRIMAZOLE 1% 15 GM TUBE TP SCH ×2 (10:45→17:21)
[2020-06-19] MEDS: TRIAMCINOLONE OINT 0.1% 15 GM TUBE TP SCH ×2 (10:45→21:09)
[2020-06-19] MEDS: Z GUARD REMEDY 2 OZ OINT TP SCH ×2 (10:46→21:10)
--- NOTE | 2020-06-19 13:42 | NUR ---
ENTRY MANAGER PER BLOCKING MACHINE TENDER ORDERS SINCE WOUNDS LOOK BETTER TO DISCONTINUE PROSTAT CHANGE 65 ML/PER TO 55 ML / HR
[2020-06-19] MEDS: IV NS 0.9% 1,000 ML IV PRN (16:00)
--- NOTE | 2020-06-19 18:02 | NUR ---
INSIDE SALES COORDINATOR PATIENT STABLE @ THIS TIME NO SIGNS OF FEVER TEMP 98.8 . PATIENT NON VERBAL, NO RESPONSE TO NAME A/OX 0 PATIENT ON EXTERNAL MONITOR SR/ ST. PATIENT ON VENT PRESCRIBED BY MD. PATIENT HAS GTUBE PATIENT AND INTACT @ 55 ML/HR GLUCERNA. PATIENT HAS KAM INTACT NO SIGNS OF INFECTION. YELLOW CLEAR DRAINAGE. R WRIST 20 NS @ 100 ML/ HR . R WRIST 20 # WITH TKO RUNNING AM CARE COMPLETES . ALL WOUND TX COMPLETED BED LOCKED LOWEST POSITION CALL LIGHT WITH IN REACH ALL SAFETY MEASURES IMPLEMENTED PER HOSPITAL POLICY.
--- NOTE | 2020-06-19 19:00 | NUR ---
Received patient lethargic,easily arousable, opens eyes,+ strong cough and gag,Withdraws extremities to pain.With tracheostomy to the ventilator on AC mode,not in any respiratory distress.Tube feeding via G tube ,Aspiation precaution implemented. Stable ,for possible transfer to [facility] once bed available.
--- NOTE | 2020-06-19 20:41 | NUR ---
Patient resides at [facility] sub-acute unit. She is trach/vent dependent, totally dependent with adl's. Current dc plan is to return to [facility] once medically stable. Addendum: 06/19/20 at 2041 by CECE ULLOA RN Amended: Links added.
[2020-06-19] MEDS: MULTIVIT W/MINERALS 1 TAB TABLET GT SCH (21:08)
--- NOTE | 2020-06-19 21:45 | NUR ---
Transfered to [facility].Report given to Zay LUTHER.
--- NOTE | 2020-06-19 21:51 | NUR ---
PATIENT CAME FROM ICU,AWAKE.NON VERBAL. NO S/S OF DISTRESS NOTED. NOT IN PAIN. HOB ELEVATED. RT SUCTIONED THE ORAL. BED IN LOWEST AND LOCKED POSITION. BED ALARM ON. WITH TUBE FEEDING GLUCERNA AT 65ML/HOUR, GT SITE DRESSING CHANGED, WITH LITTLE EXUDATE NOTED ON THE DRESSING, NO SKIN IRRITATIONS NOTED. WITH KAM CATHETER INTACT, DRAINING CLEAR YELLOW URINE OUTPUT. WITH TRACHEOSTOMY TIBE INTACT DRESSING IS CLEAN, DRY AND INTACT, CONNECTED TO THE VENT.
[2020-06-19] MEDS: INSULIN GLARGINE, 100 UNIT/ML CARTRIDGE SQ SCH (22:34)
[2020-06-20] VITALS: BP 115/78
--- NOTE | 2020-06-20 | NUR ---
NO TUBE FEEDING RESIDUAL.
[2020-06-20] MEDS: BLOOD SUGAR DIAGNOSTIC 1 EACH STRIP IN SCH ×4 (00:13→17:33)
[2020-06-20] MEDS: INSULIN REGULAR, HUMAN 100 UNIT/ML 3 ML VIAL SQ PRN ×4 (00:17→17:37)
[2020-06-20] MEDS: POLYVINYL ALCOHOL 15 ML BOTTLE EACHEYE SCH ×4 (00:18→17:39)
[2020-06-20] MEDS: Z GUARD REMEDY 2 OZ OINT TP SCH ×2 (00:18→21:56)
[2020-06-20] MEDS: ALBUTEROL FS 2.5 MG/3 ML VIAL.NEB NEB SCH ×4 (02:06→19:57)
[2020-06-20] MEDS: IPRATROPIUM NEB FS 0.5 MG/2.5 ML AMPUL.NEB IH SCH ×4 (02:06→19:57)
[2020-06-20] MEDS: HEPARIN SODIUM, PORCINE 5000 UNITS/1 ML VIAL SQ SCH ×3 (02:23→17:41)
[2020-06-20 04:00] VITALS: BP 123/82
[2020-06-20] MEDS: MEROPENEM 1 G in IV NS 0.9% 100 ML IV SCH ×3 (04:45→20:53)
--- NOTE | 2020-06-20 06:00 | NUR ---
COMPO CONVEYOR OPERATOR CLOSING NOTES: PATIENT IN BED, AWAKE, NON VERBAL. NO S/S OF DISTRESS NOTED. NOT IN PAIN. HOB ELEVATED AT ALL TIMES. WITH TF GLUCERNA AT 65ML/HOUR, NO RESIDUAL NOTED. BED IN LOWEST AND LOCKED POSITION. SINUS RHYTHM ON TELE MONITOR. TURNED AND REPOSITIONED. OFFLOADED. WITH KAM CATHETER INTACT, WITH CLEAR YELLOW URINE OUTPUT.
[2020-06-20] MEDS: PANTOPRAZOLE 40 MG/PACK PACK GT SCH (06:08)
[2020-06-20] MEDS: GLUCERNA 1.2 1,000 ML BOTTLE NG PRN ×2 (06:11→23:31)
[2020-06-20 06:46] LABS: BASOPHILS % (AUTO) 0.5 % (0.0-2.0); EOSINOPHILS % (AUTO) 3.1 % (0.0-6.0); HEMATOCRIT 27 % (33-45); HEMOGLOBIN 8.1 g/dL (11.5-14.8); LYMPHOCYTES # (AUTO) 2.1 /CMM (0.8-4.8); LYMPHOCYTES % (AUTO) 30.2 % (20.0-44.0); MEAN CORPUSCULAR HGB CONC 30 g/dl (31.0-36.0); MEAN CORPUSCULAR VOLUME 107 fL (82-100); MONOCYTES # (AUTO) 0.5 /CMM (0.1-1.30); NEUTROPHILS % (AUTO) 59.2 % (43.0-81.0); PLATELET COUNT (AUTO) 251 /CMM (150-450); RED BLOOD CELL COUNT(AUTO) 2.54 MIL/uL (4.0-5.2); WHITE BLOOD COUNT (AUTO) 6.8 K/uL (4.3-11.0)
[2020-06-20 07:11] LABS: CALCIUM, SERUM 9.2 mg/dL (8.5-10.1); CREATININE 0.6 mg/dL (0.6-1.3); POTASSIUM 4.1 mmol/L (3.5-5.1)
[2020-06-20 08:00] VITALS: BP 131/81
--- NOTE | 2020-06-20 08:00 | NUR ---
QUALITY CHECKER NOTES PATIENT RECEIVED AWAKE IN BED PT IS NON VERBAL. NO S/S OF DISTRESS NOTED.NO SIGNS OF PAIN OR DISCOMFORT VISIBLE AT THIS TIME. HOB ELEVATED. BED IN LOWEST AND LOCKED POSITION. BED ALARM ON. PT ON TUBE FEEDING GLUCERNA AT 65ML/HOUR, GT. TRACHEOSTOMY TUBE INTACT DRESSING IS CLEAN, DRY AND INTACT, CONNECTED TO THE VENT.PT HAS A KAM CATH PLACED. PT HAS IV ACCESS ON THE RIGHT WRIST NO SWELLING, REDNESS OR PAIN UPON PALPATION NOTED AT THIS TIME. ALL NURSING NEEDS MEET AT THIS TIME WILL CONTINUE TO MONITOR.
[2020-06-20] MEDS: CHLORHEXIDINE GLUCONATE 15 ML UDC MM SCH ×2 (09:44→21:56)
[2020-06-20] MEDS: FERROUS SULFATE UDC 300 MG/5 ML UDC GT SCH ×3 (09:48→16:35)
[2020-06-20] MEDS: BACLOFEN (10 MG) 10 MG TABLET GT SCH ×2 (09:49→21:55)
[2020-06-20] MEDS: ZINC SULFATE 220 MG CAPSULE GT SCH (09:49)
[2020-06-20] MEDS: METFORMIN 850 MG TABLET GT SCH ×2 (09:49→16:35)
[2020-06-20] MEDS: ASCORBIC ACID 500 MG TABLET GT SCH ×2 (09:49→16:35)
[2020-06-20] MEDS: LEVETIRACETAM SOL (5 ML) 100 MG/ML UDC GT SCH ×2 (09:57→21:55)
[2020-06-20] MEDS: TRIAMCINOLONE OINT 0.1% 15 GM TUBE TP SCH ×2 (09:58→21:56)
[2020-06-20] MEDS: CLOTRIMAZOLE 1% 15 GM TUBE TP SCH ×2 (10:00→16:54)
[2020-06-20] MEDS: VANCOMYCIN 0.75 GM in IV D5W 250 ML IV SCH ×2 (10:32→22:02)
[2020-06-20] MEDS: IV NS 0.9% 1,000 ML IV PRN ×2 (10:37→10:46)
[2020-06-20 11:24] LABS: LYMPHOCYTES % (MANUAL) 33 % (16-48); MONOCYTES % (MANUAL) 4 % (0-11.0); NEUTROPHILS % (MANUAL) 63 (42-76)
[2020-06-20 12:04] VITALS: BP 118/79
[2020-06-20] MEDS: FLUCONAZOLE IN NS 100 MG in PREMIX 1 EA IV SCH ×2 (15:01)
[2020-06-20 16:08] VITALS: BP 138/82
--- NOTE | 2020-06-20 18:23 | NUR ---
RN NOTES PATIENT ASLEEP IN BED. NO S/S OF DISTRESS NOTED.NO SIGNS OF PAIN OR DISCOMFORT VISIBLE AT THIS TIME. HOB ELEVATED. BED IN LOWEST AND LOCKED POSITION. BED ALARM ON. PT ON TUBE FEEDING GLUCERNA AT 65ML/HOUR, GT. TRACHEOSTOMY TUBE INTACT DRESSING IS CLEAN, DRY AND INTACT, CONNECTED TO THE VENT.PT HAS A KAM CATH PLACED. PT HAS IV ACCESS ON THE RIGHT WRIST AND RIGHT HAND NO SWELLING, REDNESS OR PAIN UPON PALPATION NOTED AT THIS TIME. ALL NURSING NEEDS MEET AT THIS TIME WILL CONTINUE TO MONITOR.
--- NOTE | 2020-06-20 19:30 | NUR ---
MS/RN OPENING NOTES RECEIVED PATIENT IN BED RESTING. PATIENT IS NON VERBAL EYES OPEN. PATIENT IS VENT DEPENDENT TOLERATING SETTING WELL. PATIENT HAS IV ACCESS ON RIGHT WRIST #20G SL AND RIGHT HAND #22G FLUSHING WELL. PATIENT HAS G TUBE , FEEDING RUNNING AT 65 ML/HR. KAM CATH IS IN PLACE DRAINING WELL. SAFETY MEASURES ARE IN PLACE, BED IS LOCKED AND PLACED IN THE LOW POSITION, SIDE RAILS UP X 3, CALL LIGHT IS WITHIN REACH. WILL CONTINUE TO MONITOR THROUGH OUT SHIFT.
[2020-06-20 20:00] VITALS: BP_SYST 128; BP_SYST 142; BP_DIAS 78; BP_DIAS 83
[2020-06-20] MEDS: MULTIVIT W/MINERALS 1 TAB TABLET GT SCH (21:55)
[2020-06-20] MEDS: INSULIN GLARGINE, 100 UNIT/ML CARTRIDGE SQ SCH (22:20)
[2020-06-21] VITALS: BP 118/78
[2020-06-21] MEDS: POLYVINYL ALCOHOL 15 ML BOTTLE EACHEYE SCH ×5 (00:04→23:33)
[2020-06-21] MEDS: BLOOD SUGAR DIAGNOSTIC 1 EACH STRIP IN SCH ×5 (00:05→23:33)
[2020-06-21] MEDS: INSULIN REGULAR, HUMAN 100 UNIT/ML 3 ML VIAL SQ PRN ×2 (00:07→06:04)
[2020-06-21] MEDS: IPRATROPIUM NEB FS 0.5 MG/2.5 ML AMPUL.NEB IH SCH ×4 (01:30→19:33)
[2020-06-21] MEDS: ALBUTEROL FS 2.5 MG/3 ML VIAL.NEB NEB SCH ×4 (01:30→19:33)
[2020-06-21] MEDS: HEPARIN SODIUM, PORCINE 5000 UNITS/1 ML VIAL SQ SCH ×3 (02:48→18:08)
[2020-06-21] MEDS: MEROPENEM 1 G in IV NS 0.9% 100 ML IV SCH ×3 (04:24→21:03)
[2020-06-21] MEDS: PANTOPRAZOLE 40 MG/PACK PACK GT SCH (05:53)
--- NOTE | 2020-06-21 06:50 | NUR ---
TELE/RN CLOSING NOTES PATIENT IN BED RESTING. PATIENT IS NON VERBAL EYES OPEN. PATIENT IS VENT DEPENDENT TOLERATING SETTING WELL. PATIENT HAS IV ACCESS ON RIGHT WRIST #20G SL AND RIGHT HAND #22G FLUSHING WELL. PATIENT HAS G TUBE , FEEDING RUNNING AT 65 ML/HR, 15ML RESIDUAL. KMA CATH IS IN PLACE DRAINING WELL OUTPUT 2300ML. ALL NEEDS MET DURING SHIFT. SAFETY MEASURES ARE IN PLACE, BED IS LOCKED AND PLACED IN THE LOW POSITION, SIDE RAILS UP X 3, CALL LIGHT IS WITHIN REACH. WILL ENDORSE CARE TO DAY SHIFT.
[2020-06-21] MEDS: IV NS 0.9% 1,000 ML IV PRN (07:04)
[2020-06-21 07:31] LABS: BASOPHILS % (AUTO) 0.7 % (0.0-2.0); CALCIUM, SERUM 9.5 mg/dL (8.5-10.1); CREATININE 0.6 mg/dL (0.6-1.3); EOSINOPHILS % (AUTO) 4.5 % (0.0-6.0); HEMATOCRIT 25 % (33-45); HEMOGLOBIN 8.4 g/dL (11.5-14.8); LYMPHOCYTES # (AUTO) 1.9 /CMM (0.8-4.8); MEAN CORPUSCULAR HGB CONC 34 g/dl (31.0-36.0); MEAN CORPUSCULAR VOLUME 92 fL (82-100); MONOCYTES # (AUTO) 0.3 /CMM (0.1-1.30); MONOCYTES % (AUTO) 4.9 % (2.0-12.0); NEUTROPHILS # (AUTO) 4.2 /CMM (1.8-8.9); NEUTROPHILS % (AUTO) 61.9 % (43.0-81.0); PLATELET COUNT (AUTO) 320 /CMM (150-450); POTASSIUM 4.2 mmol/L (3.5-5.1); WHITE BLOOD COUNT (AUTO) 6.7 K/uL (4.3-11.0)
--- NOTE | 2020-06-21 07:44 | NUR ---
TELE/RN OPENING NOTES PATIENT IN BED ASLEEP. PER SENIOR CLINICAL CONSULTANT, PATIENT IS NON VERBAL BUT OPENS EYES. PATIENT IS VENT DEPENDENT TOLERATING SETTING WELL. IV ACCESS PRESENT ON RIGHT WRIST #20G SL AND RIGHT HAND #22G FLUSHING WELL. PATIENT HAS G-TUBE, GLUCERNA 1.2 RUNNING AT 65 ML/HR. KAM CATH IN PLACE DRAINING WELL. SAFETY PRECAUTIONS IN PLACE, BED IN LOW POSITION AND LOCKED, SIDE RAILS UP X 3, CALL LIGHT IS WITHIN REACH. WILL CONTINUE TO MONITOR PATIENT.
[2020-06-21 08:00] VITALS: BP 118/77
[2020-06-21] MEDS: Z GUARD REMEDY 2 OZ OINT TP SCH ×2 (08:03→21:04)
[2020-06-21] MEDS: TRIAMCINOLONE OINT 0.1% 15 GM TUBE TP SCH ×2 (08:04→21:04)
[2020-06-21] MEDS: CLOTRIMAZOLE 1% 15 GM TUBE TP SCH ×2 (08:04→16:13)
[2020-06-21] MEDS: LEVETIRACETAM SOL (5 ML) 100 MG/ML UDC GT SCH ×2 (08:07→20:46)
[2020-06-21] MEDS: ASCORBIC ACID 500 MG TABLET GT SCH ×2 (08:07→16:15)
[2020-06-21] MEDS: FERROUS SULFATE UDC 300 MG/5 ML UDC GT SCH ×3 (08:07→16:15)
[2020-06-21] MEDS: BACLOFEN (10 MG) 10 MG TABLET GT SCH ×2 (08:07→20:47)
[2020-06-21] MEDS: CHLORHEXIDINE GLUCONATE 15 ML UDC MM SCH ×2 (08:08→20:46)
[2020-06-21] MEDS: ZINC SULFATE 220 MG CAPSULE GT SCH (08:08)
[2020-06-21] MEDS: METFORMIN 850 MG TABLET GT SCH ×2 (08:08→16:15)
[2020-06-21] MEDS: VANCOMYCIN 0.75 GM in IV D5W 250 ML IV SCH (09:38)
[2020-06-21 12:00] VITALS: BP 133/72
--- NOTE | 2020-06-21 13:24 | NUR ---
fio2 decreased from 50% to 40% as order. rn notified on changes. Addendum: 06/21/20 at 1324 by QUETA REYNA RT Amended: Links added.
[2020-06-21] MEDS: FLUCONAZOLE IN NS 100 MG in PREMIX 1 EA IV SCH ×2 (13:40)
[2020-06-21] MEDS: GLUCERNA 1.2 1,000 ML BOTTLE NG PRN (15:57)
[2020-06-21 16:00] VITALS: BP 130/78
--- NOTE | 2020-06-21 18:48 | NUR ---
TELE/RN CLOSING NOTES PATIENT IN BED RESTING, NON-VERBAL. DURING THE DAY WOULD OPEN HER EYES SOMETIMES. PATIENT IS VENT DEPENDENT TOLERATING SETTING WELL; FIO2 CHANGED FROM 50% T0 40%. IV ACCESS PRESENT ON RIGHT WRIST #20G SL AND RIGHT HAND #22G FLUSHING WELL; NS AT 100 MLS/HR. PATIENT HAS G-TUBE, GLUCERNA 1.2 RUNNING AT 65 ML/HR WITH 5MLS RESIDUAL. KAM CATH IN PLACE DRAINING WELL WITH DAILY OUTPUT OF 1400 MLS. SAFETY PRECAUTIONS IN PLACE, BED IN LOW POSITION AND LOCKED, SIDE RAILS UP X 3, CALL LIGHT IS WITHIN REACH. WILL ENDORSE TO ELECTRIC MOTOR FITTER NURSE.
--- NOTE | 2020-06-21 19:00 | NUR ---
RN OPENING NOTES Pt resting on bed. On vent with current settings tolerated well, no respiratory distress ntoed. On fall and aspiration precautions. Will continue to monitor accordingly.
[2020-06-21 20:00] VITALS: BP 99/73
[2020-06-21] MEDS: MULTIVIT W/MINERALS 1 TAB TABLET GT SCH (20:47)
[2020-06-21] MEDS: INSULIN GLARGINE, 100 UNIT/ML CARTRIDGE SQ SCH (21:52)
[2020-06-22] VITALS: BP 140/86
[2020-06-22] MEDS: IV NS 0.9% 1,000 ML IV PRN ×2 (00:34→10:43)
[2020-06-22] MEDS: ALBUTEROL FS 2.5 MG/3 ML VIAL.NEB NEB SCH ×3 (01:53→13:19)
[2020-06-22] MEDS: IPRATROPIUM NEB FS 0.5 MG/2.5 ML AMPUL.NEB IH SCH ×3 (01:53→13:19)
[2020-06-22] MEDS: HEPARIN SODIUM, PORCINE 5000 UNITS/1 ML VIAL SQ SCH ×2 (02:49→10:39)
[2020-06-22 04:00] VITALS: BP_SYST 142; BP_SYST 148; BP_DIAS 80; BP_DIAS 87
[2020-06-22] MEDS: MEROPENEM 1 G in IV NS 0.9% 100 ML IV SCH ×2 (05:00→12:40)
[2020-06-22] MEDS: BLOOD SUGAR DIAGNOSTIC 1 EACH STRIP IN SCH ×2 (05:09→12:38)
[2020-06-22] MEDS: PANTOPRAZOLE 40 MG/PACK PACK GT SCH (05:10)
[2020-06-22] MEDS: POLYVINYL ALCOHOL 15 ML BOTTLE EACHEYE SCH ×2 (05:10→12:38)
[2020-06-22] MEDS: INSULIN REGULAR, HUMAN 100 UNIT/ML 3 ML VIAL SQ PRN ×2 (05:20→12:39)
[2020-06-22 06:20] LABS: BASOPHILS % (AUTO) 0.6 % (0.0-2.0); EOSINOPHILS % (AUTO) 4.2 % (0.0-6.0); HEMATOCRIT 26 % (33-45); HEMOGLOBIN 8.4 g/dL (11.5-14.8); LYMPHOCYTES # (AUTO) 1.9 /CMM (0.8-4.8); MEAN CORPUSCULAR HGB CONC 33 g/dl (31.0-36.0); MEAN CORPUSCULAR VOLUME 91 fL (82-100); MONOCYTES # (AUTO) 0.5 /CMM (0.1-1.30); MONOCYTES % (AUTO) 6.9 % (2.0-12.0); NEUTROPHILS # (AUTO) 3.9 /CMM (1.8-8.9); NEUTROPHILS % (AUTO) 59.3 % (43.0-81.0); PLATELET COUNT (AUTO) 346 /CMM (150-450); WHITE BLOOD COUNT (AUTO) 6.6 K/uL (4.3-11.0)
[2020-06-22 06:28] LABS: CALCIUM, SERUM 9.6 mg/dL (8.5-10.1); CREATININE 0.7 mg/dL (0.6-1.3)
--- NOTE | 2020-06-22 06:38 | NUR ---
RN CLOSING NOTES Pt asleep on bed, no distress/discomfort noted. All nursing needs attended, due meds given as ordered. No new unusualities noted. Kept on bed clean, dry and comfortable. On fall and aspiration precautions. Endorsed.
--- NOTE | 2020-06-22 07:20 | NUR ---
GREASER AND OILER NOTES PATIENT IN BED EYES OPEN, NON VERBAL. NO ACUTE DISTRESS NOTED. NO SOB NOTED. BREATHING UNLABORED. NO FACIAL GRIMACING NOTED. VENT SET ON ROFERED SETTING , TOLERATING WELL. IV ACCESS PATENT AND INTACT, NO REDNESS, NO SWELLING NOTED. HEAD OF BED ELEVATED. KAM CATHETER INTACT DRAINING CLEAR YELLOW URINE. GT FEEDING INFUSING, PATIENT TOLERATING WELL. SAFETY MEASURES IN PLACE. CALL LIGHT WITHIN REACH. WILL CONTINUE TO MONITOR ACCORDINGLY.
[2020-06-22 08:00] VITALS: BP 120/86
[2020-06-22] MEDS: ZINC SULFATE 220 MG CAPSULE GT SCH (09:05)
[2020-06-22] MEDS: METFORMIN 850 MG TABLET GT SCH (09:05)
[2020-06-22] MEDS: BACLOFEN (10 MG) 10 MG TABLET GT SCH (09:06)
[2020-06-22] MEDS: CHLORHEXIDINE GLUCONATE 15 ML UDC MM SCH (09:06)
[2020-06-22] MEDS: LEVETIRACETAM SOL (5 ML) 100 MG/ML UDC GT SCH (09:06)
[2020-06-22] MEDS: ASCORBIC ACID 500 MG TABLET GT SCH (09:06)
[2020-06-22] MEDS: FERROUS SULFATE UDC 300 MG/5 ML UDC GT SCH ×2 (09:06→12:36)
[2020-06-22] MEDS: Z GUARD REMEDY 2 OZ OINT TP SCH (09:09)
[2020-06-22] MEDS: CLOTRIMAZOLE 1% 15 GM TUBE TP SCH (09:09)
[2020-06-22] MEDS: TRIAMCINOLONE OINT 0.1% 15 GM TUBE TP SCH (09:09)
[2020-06-22 09:19] LABS: BAND % (MANUAL) 2 % (0.0-5.0); EOSINOPHILS % (MANUAL) 2 % (0-4); LYMPHOCYTES % (MANUAL) 28 % (16-48); MONOCYTES % (MANUAL) 10 % (0-11.0); MYELOCYTES % 1 % (0-0); NEUTROPHILS % (MANUAL) 57 (42-76)
[2020-06-22] MEDS ORDERED: FLUC100T8 GT (10:29)
[2020-06-22] MEDS ORDERED: MERO1PIG IV (10:29)
[2020-06-22 12:00] VITALS: BP 134/85
[2020-06-22] MEDS: GLUCERNA 1.2 1,000 ML BOTTLE NG PRN (12:36)
[2020-06-22] MEDS ORDERED: FLUCONAZOLE (100 MG) 100 MG TABLET GT SCH (13:00)
--- NOTE | 2020-06-22 14:30 | NUR ---
SALES DEVELOPMENT SPECIALIST NOTED KAM CATHETER FR16 CHANGED , ASEPTIC TECHNIQUE OBSERVED, PATIENT TOLERATED WELL, DRAINING CLEAR YELLOW URINE 50CC, SECURED ON THE RIGHT THIGH.
--- NOTE | 2020-06-22 14:57 | NUR ---
pt. transferred to [facility] room 273 and placed to LTV ventilator with following vent settings as order: ac 12, vt 500ml, fio2 40%, peep +5. vent plugged into red otlet with alarms on and functioning. sarah @ head of the board. Addendum: 06/22/20 at 1459 by QUETA REYNA RT Amended: Links added.
--- NOTE | 2020-06-22 15:00 | NUR ---
WELL PULLER NOTES PATIENT TRANSFER TO SUB ACUTE VIA ACLS PROTOCOL WITH RT QUETA. NO ACUTE DISTRESS NOTED. BREATHING UNLABORED. KEPT IV ACCESS PATENT AND INTACT, NO REDNESS, NO SWELLING NOTED, PATIENT TO CONTINUE IV ANTIBIOTIC.KAM CATHETER INTACT DRANING CLEAR YELLOW URINE. GTUBE INTACT. REPORT AND DISCHARGE INSTRUCTIONS GIVEN TO AMBER LUTHER.
== END 2020-06-22 14:45 | DRG 130 ==
LOC: ICU 09:38 → TELE 06-19 21:37
PROVIDERS: ADMIT Nurse Practitioner Acute Care; ATTEND Nurse Practitioner Acute Care
PROC: 5A1955Z Respiratory Ventilation, Greater than 96 Consecutive Hours (ICD-10-PCS; principal; 2020-06-17)
DX: J95.851 Ventilator associated pneumonia (principal); A41.9 Sepsis, unspecified organism; J96.21 Acute and chronic respiratory failure with hypoxia; R53.2 Functional quadriplegia; Z93.1 Gastrostomy status; Z99.11 Dependence on respirator [ventilator] status; Z87.440 Personal history of urinary (tract) infections; G93.1 Anoxic brain damage, not elsewhere classified; G40.909 Epilepsy, unspecified, not intractable, without status epilepticus; E11.9 Type 2 diabetes mellitus without complications; J18.9 Pneumonia, unspecified organism; Y83.3 Surgical operation with formation of external stoma as the cause of abnormal reaction of the patient, or of later complication, without mention of misadventure at the time of the procedure; Y92.129 Unspecified place in nursing home as the place of occurrence of the external cause; N39.0 Urinary tract infection, site not specified; Z20.828 Contact with and (suspected) exposure to other viral communicable diseases; R13.10 Dysphagia, unspecified; Z86.73 Personal history of transient ischemic attack (TIA), and cerebral infarction without residual deficits; J98.11 Atelectasis; T17.990A Other foreign object in respiratory tract, part unspecified in causing asphyxiation, initial encounter; X58.XXXA Exposure to other specified factors, initial encounter; Y92.89 Other specified places as the place of occurrence of the external cause; B49 Unspecified mycosis; B96.5 Pseudomonas (aeruginosa) (mallei) (pseudomallei) as the cause of diseases classified elsewhere; Z74.01 Bed confinement status
CPT/HCPCS: 31720; 36415; 36600; 71045-TC; 80048-TC; 80053-TC; 80076-TC; 80202-TC; 81001; 82247-TC; 82248-TC; 82962-TC; 83540-TC; 83605-TC; 83735-TC; 84100-TC; 84443-TC; 85025-TC; 87040-TC; 87070-TC; 87081-TC; 87086-TC; 87186-TC; 93970-TC; 94003-TC; 94640-TC; 94799-TC; 99082-TC; A4216; A7526; G0378; J1450; J1644; J1815; J1953; J2185; J3370; J7030; J7050; J7060; U0003

== ENCOUNTER 2020-08-22 10:14 | Outpatient (CLI) | payer MEDICAID ==
[~2020-08-22 10:14] MED LIST: ACET650S26 GT; ALBU2.5V38 IH; ALLA266C2 TP; AMIN30LI2 GT; ASCO-352 GT; BACL10TA GT; BISA10SU11 RC; BLOO-668 IN; CHLO473M5 MM; DEXT50DI8 IV; FERR300L GT; FLUC100T8 GT; HEPA50008 SQ; HYDR1SOL TD; INSU100V27 SQ; INSU100V7 SQ; IPRA0.2S9 IH; LEVE1000 GT; MERO1PIG IV; METF-441 GT; MULT-447 GT; NUT.237L30 GT; OMEP20CA15 GT; POLY15DR40 EACHEYE; POLY17PO4 GT; TRIA15OI2 TP; ZINC1CAP3 GT
== END 2020-08-22 23:59 | disposition home or self-care (01) ==
LOC: CT 10:14
PROVIDERS: ATTEND Internal Medicine
DX: K80.20 Calculus of gallbladder without cholecystitis without obstruction (principal); N20.0 Calculus of kidney; K57.30 Diverticulosis of large intestine without perforation or abscess without bleeding; J98.11 Atelectasis; K76.0 Fatty (change of) liver, not elsewhere classified; N85.8 Other specified noninflammatory disorders of uterus; M85.88 Other specified disorders of bone density and structure, other site; M16.0 Bilateral primary osteoarthritis of hip; M25.452 Effusion, left hip; M25.451 Effusion, right hip; Z93.1 Gastrostomy status

== ENCOUNTER 2020-10-07 09:50 | Outpatient (CLI) | payer MEDICAID | END 2020-10-07 23:59 | disposition home or self-care (01) | LOC: CT 09:50 | PROVIDERS: ATTEND Internal Medicine | DX: K80.20 Calculus of gallbladder without cholecystitis without obstruction (principal); N20.0 Calculus of kidney; J98.11 Atelectasis; J84.10 Pulmonary fibrosis, unspecified; K76.0 Fatty (change of) liver, not elsewhere classified; M16.0 Bilateral primary osteoarthritis of hip; I70.0 Atherosclerosis of aorta; Z93.1 Gastrostomy status | CPT/HCPCS: 71250-TC ==

== ENCOUNTER 2022-07-18 | Inpatient (IN) | payer MEDICAID ==
[~2022-07-18] VITALS: Ht 160 cm; Wt 61.7 kg
[2022-07-20] MEDS ORDERED: MAG HYDROX/AL HYDROX/SIMETH 30 ML UDC GT PRN (07:20)
[2022-07-20] MEDS ORDERED: DEXTROSE 50%-WATER 50 ML DISP.SYRIN IV PRN (07:20)
[2022-07-20] MEDS ORDERED: ACETAMINOPHEN 650 MG/20 ML UDC- SA PATIENTS-FEVER ONLY GT PRN (07:20)
[2022-07-20] MEDS ORDERED: TRIAMCINOLONE ACETONIDE 0.1% CR 15 GM TUBE TP PRN (07:20)
[2022-07-20] MEDS ORDERED: HYDROGEN PEROXIDE 480 ML BOTTLE TP PRN (07:20)
[2022-07-20] MEDS ORDERED: ALBUTEROL FS 2.5 MG/3 ML VIAL.NEB NEB PRN (07:20)
[2022-07-20] MEDS ORDERED: IPRATROPIUM NEB FS 0.5 MG/2.5 ML AMPUL.NEB IH PRN (07:20)
[2022-07-20] MEDS: ALBUTEROL FS 2.5 MG/3 ML VIAL.NEB NEB SCH ×3 (07:35→20:11)
[2022-07-20] MEDS: IPRATROPIUM NEB FS 0.5 MG/2.5 ML AMPUL.NEB IH SCH ×3 (07:35→20:11)
[2022-07-20] MEDS: NYSTATIN CREAM 15 GM TUBE TP SCH ×2 (09:00→21:18)
[2022-07-20] MEDS: METFORMIN 850 MG TABLET GT SCH ×2 (09:00→16:28)
[2022-07-20] MEDS: CHLORHEXIDINE GLUCONATE 15 ML UDC MM SCH ×2 (09:00→21:17)
[2022-07-20] MEDS: TRIAMCINOLONE ACETONIDE 0.1% CR 15 GM TUBE TP SCH ×2 (09:00→21:18)
[2022-07-20] MEDS: HYDROGEN PEROXIDE 480 ML BOTTLE TP SCH ×2 (09:00→21:05)
[2022-07-20] MEDS: LEVETIRACETAM SOL (5 ML) 100 MG/ML UDC GT SCH ×2 (09:00→21:17)
[2022-07-20] MEDS: BETHANECHOL CHLORIDE (10 MG) 10 MG TABLET GT SCH ×3 (09:00→16:29)
[2022-07-20] MEDS: INDOMETHACIN 25 MG CAPSULE GT SCH ×2 (09:00→16:28)
[2022-07-20] MEDS: FERROUS SULFATE - FOR SA ONLY 330 MG/7.5 ML UDC GT SCH ×3 (09:00→16:28)
[2022-07-20] MEDS: DOCUSATE SODIUM LIQ 100 MG/10 ML UDC GT SCH (09:00)
[2022-07-20] MEDS: HEPARIN SODIUM, PORCINE 5000 UNITS/1 ML VIAL SQ SCH ×2 (09:00→21:18)
[2022-07-20] MEDS: PROSTAT (PYXIS) 30 ML UDC GT SCH (09:00)
[2022-07-20] MEDS: ZINC SULFATE 220 MG CAPSULE GT SCH (09:00)
[2022-07-20] MEDS: ASCORBIC ACID 500 MG TABLET GT SCH ×2 (09:00→16:29)
[2022-07-20] MEDS: VITS A AND D/WHITE PET/LANOLIN 5 GM PACKET TP SCH ×2 (09:00→21:18)
[2022-07-20] MEDS: BACLOFEN (10 MG) 10 MG TABLET GT SCH ×2 (09:00→21:17)
[2022-07-20] MEDS: POLYVINYL ALCOHOL 15 ML BOTTLE OP SCH ×2 (12:53→17:32)
--- NOTE | 2022-07-20 16:43 | NUR ---
PCR Covid test done today on pt, waiting for result. Pt with no s/s of sob, cough, pt afebrile.
[2022-07-20] MEDS: BLOOD SUGAR DIAGNOSTIC 1 EACH STRIP IN SCH (17:32)
[2022-07-20] MEDS: [UNRECOGNIZED DRUG - OTHER] SQ PRN (17:33)
[2022-07-20 20:00] VITALS: BP 118/73
[2022-07-20] MEDS: MULTIVIT W/MINERALS 1 TAB TABLET GT SCH (21:17)
[2022-07-20] MEDS: [UNRECOGNIZED DRUG - OTHER] SQ SCH (21:20)
[2022-07-20] MEDS: BASAGLAR SQ SCH (21:20)
[2022-07-21] MEDS: POLYVINYL ALCOHOL 15 ML BOTTLE OP SCH ×4 (00:39→17:54)
[2022-07-21] MEDS: ALBUTEROL FS 2.5 MG/3 ML VIAL.NEB NEB SCH ×4 (01:38→19:32)
[2022-07-21] MEDS: IPRATROPIUM NEB FS 0.5 MG/2.5 ML AMPUL.NEB IH SCH ×4 (01:38→19:32)
[2022-07-21] MEDS: OMEPRAZOLE DR 20 MG GT SCH (05:59)
[2022-07-21] MEDS: BLOOD SUGAR DIAGNOSTIC 1 EACH STRIP IN SCH ×2 (05:59→17:54)
[2022-07-21] MEDS: [UNRECOGNIZED DRUG - OTHER] SQ PRN ×2 (06:00→17:55)
[2022-07-21 08:02] VITALS: BP 139/79
[2022-07-21] MEDS: HYDROGEN PEROXIDE 480 ML BOTTLE TP SCH ×2 (08:18→19:32)
[2022-07-21] MEDS: ASCORBIC ACID 500 MG TABLET GT SCH ×2 (09:20→16:51)
[2022-07-21] MEDS: BETHANECHOL CHLORIDE (10 MG) 10 MG TABLET GT SCH ×3 (09:20→16:51)
[2022-07-21] MEDS: METFORMIN 850 MG TABLET GT SCH ×2 (09:20→16:51)
[2022-07-21] MEDS: BACLOFEN (10 MG) 10 MG TABLET GT SCH ×2 (09:20→21:38)
[2022-07-21] MEDS: INDOMETHACIN 25 MG CAPSULE GT SCH ×2 (09:20→16:51)
[2022-07-21] MEDS: ZINC SULFATE 220 MG CAPSULE GT SCH (09:20)
[2022-07-21] MEDS: FERROUS SULFATE - FOR SA ONLY 330 MG/7.5 ML UDC GT SCH ×3 (09:20→16:51)
[2022-07-21] MEDS: DOCUSATE SODIUM LIQ 100 MG/10 ML UDC GT SCH (09:20)
[2022-07-21] MEDS: CHLORHEXIDINE GLUCONATE 15 ML UDC MM SCH ×2 (09:20→21:38)
[2022-07-21] MEDS: PROSTAT (PYXIS) 30 ML UDC GT SCH (09:20)
[2022-07-21] MEDS: LEVETIRACETAM SOL (5 ML) 100 MG/ML UDC GT SCH ×2 (09:20→21:38)
[2022-07-21] MEDS: NYSTATIN CREAM 15 GM TUBE TP SCH ×2 (09:21→21:38)
[2022-07-21] MEDS: HEPARIN SODIUM, PORCINE 5000 UNITS/1 ML VIAL SQ SCH ×2 (09:21→21:38)
[2022-07-21] MEDS: TRIAMCINOLONE ACETONIDE 0.1% CR 15 GM TUBE TP SCH ×2 (09:21→21:38)
[2022-07-21] MEDS: VITS A AND D/WHITE PET/LANOLIN 5 GM PACKET TP SCH ×2 (09:21→21:39)
[2022-07-21] MEDS: GLUCERNA 1.2 1,000 ML BOTTLE GT PRN (16:51)
[2022-07-21 20:00] VITALS: BP 120/69
[2022-07-21] MEDS: MULTIVIT W/MINERALS 1 TAB TABLET GT SCH (21:38)
[2022-07-21] MEDS: [UNRECOGNIZED DRUG - OTHER] SQ SCH (21:40)
[2022-07-21] MEDS: BASAGLAR SQ SCH (21:40)
[2022-07-22] MEDS: POLYVINYL ALCOHOL 15 ML BOTTLE OP SCH ×5 (00:21→23:21)
[2022-07-22] MEDS: ALBUTEROL FS 2.5 MG/3 ML VIAL.NEB NEB SCH ×4 (01:55→20:03)
[2022-07-22] MEDS: IPRATROPIUM NEB FS 0.5 MG/2.5 ML AMPUL.NEB IH SCH ×4 (01:55→20:03)
--- NOTE | 2022-07-22 05:26 | NUR ---
PATIENT RECEIVED ON TRACH TO VENT WITH SETTINGS OF AC 12, 450 Vt, 30%, +5. SUCTIONED FOR MINIMAL, THIN, WHITE SECRETIONS. GIVEN IN-LINE TREATMENTS WITH NO ADVERSE REACTIONS. AMBU BAG AT BEDSIDE. VENT ALARM AUDIBLE AND VISIBLE. TRACH CARE DONE. VENT PLUGGED INTO RED OUTLET. Addendum: 07/22/22 at 0527 by WHITNEY KLEIN RT Amended: Links added.
[2022-07-22] MEDS: OMEPRAZOLE DR 20 MG GT SCH (05:41)
[2022-07-22] MEDS: BLOOD SUGAR DIAGNOSTIC 1 EACH STRIP IN SCH ×2 (05:41→17:49)
[2022-07-22] MEDS: [UNRECOGNIZED DRUG - OTHER] SQ PRN ×2 (05:42→17:55)
[2022-07-22 07:22] VITALS: BP 142/70
[2022-07-22] MEDS: HYDROGEN PEROXIDE 480 ML BOTTLE TP SCH ×2 (08:31→23:21)
[2022-07-22] MEDS: INDOMETHACIN 25 MG CAPSULE GT SCH ×2 (09:16→17:49)
[2022-07-22] MEDS: METFORMIN 850 MG TABLET GT SCH ×2 (09:16→17:49)
[2022-07-22] MEDS: FERROUS SULFATE - FOR SA ONLY 330 MG/7.5 ML UDC GT SCH ×3 (09:16→17:49)
[2022-07-22] MEDS: DOCUSATE SODIUM LIQ 100 MG/10 ML UDC GT SCH (09:16)
[2022-07-22] MEDS: ZINC SULFATE 220 MG CAPSULE GT SCH (09:17)
[2022-07-22] MEDS: ASCORBIC ACID 500 MG TABLET GT SCH ×2 (09:17→17:49)
[2022-07-22] MEDS: CHLORHEXIDINE GLUCONATE 15 ML UDC MM SCH ×2 (09:17→20:25)
[2022-07-22] MEDS: BETHANECHOL CHLORIDE (10 MG) 10 MG TABLET GT SCH ×3 (09:17→17:49)
[2022-07-22] MEDS: BACLOFEN (10 MG) 10 MG TABLET GT SCH ×2 (09:17→20:25)
[2022-07-22] MEDS: LEVETIRACETAM SOL (5 ML) 100 MG/ML UDC GT SCH ×2 (09:17→20:25)
[2022-07-22] MEDS: PROSTAT (PYXIS) 30 ML UDC GT SCH (09:17)
[2022-07-22] MEDS: HEPARIN SODIUM, PORCINE 5000 UNITS/1 ML VIAL SQ SCH ×2 (09:21→20:25)
[2022-07-22] MEDS: NYSTATIN CREAM 15 GM TUBE TP SCH ×2 (09:22→20:25)
[2022-07-22] MEDS: VITS A AND D/WHITE PET/LANOLIN 5 GM PACKET TP SCH ×2 (09:22→20:25)
[2022-07-22] MEDS: TRIAMCINOLONE ACETONIDE 0.1% CR 15 GM TUBE TP SCH ×2 (09:22→20:25)
--- NOTE | 2022-07-22 11:27 | NUR ---
Please see resident's previous account [id number] for all assessments and nurses notes.
[2022-07-22 11:44] VITALS: BP 102/72
[2022-07-22] MEDS: GLUCERNA 1.2 1,000 ML BOTTLE GT PRN (17:49)
[2022-07-22 19:21] VITALS: BP 121/82
[2022-07-22] MEDS: MULTIVIT W/MINERALS 1 TAB TABLET GT SCH (20:25)
[2022-07-22] MEDS: BASAGLAR SQ SCH (21:17)
[2022-07-22] MEDS: [UNRECOGNIZED DRUG - OTHER] SQ SCH (21:17)
[2022-07-23 00:36] VITALS: BP 115/81
[2022-07-23] MEDS: IPRATROPIUM NEB FS 0.5 MG/2.5 ML AMPUL.NEB IH SCH ×4 (02:02→20:26)
[2022-07-23] MEDS: ALBUTEROL FS 2.5 MG/3 ML VIAL.NEB NEB SCH ×4 (02:02→20:26)
[2022-07-23] MEDS: [UNRECOGNIZED DRUG - OTHER] SQ PRN ×2 (05:34→17:36)
[2022-07-23] MEDS: OMEPRAZOLE DR 20 MG GT SCH (05:34)
[2022-07-23] MEDS: POLYVINYL ALCOHOL 15 ML BOTTLE OP SCH ×3 (05:34→17:34)
[2022-07-23] MEDS: BLOOD SUGAR DIAGNOSTIC 1 EACH STRIP IN SCH ×2 (05:34→17:34)
[2022-07-23 07:13] VITALS: BP 117/73
[2022-07-23] MEDS: HYDROGEN PEROXIDE 480 ML BOTTLE TP SCH ×2 (09:04→20:26)
[2022-07-23] MEDS: BACLOFEN (10 MG) 10 MG TABLET GT SCH ×2 (09:15→20:23)
[2022-07-23] MEDS: DOCUSATE SODIUM LIQ 100 MG/10 ML UDC GT SCH (09:15)
[2022-07-23] MEDS: ZINC SULFATE 220 MG CAPSULE GT SCH (09:15)
[2022-07-23] MEDS: LEVETIRACETAM SOL (5 ML) 100 MG/ML UDC GT SCH ×2 (09:15→20:23)
[2022-07-23] MEDS: PROSTAT (PYXIS) 30 ML UDC GT SCH (09:15)
[2022-07-23] MEDS: CHLORHEXIDINE GLUCONATE 15 ML UDC MM SCH ×2 (09:15→20:23)
[2022-07-23] MEDS: INDOMETHACIN 25 MG CAPSULE GT SCH ×2 (09:15→16:32)
[2022-07-23] MEDS: BETHANECHOL CHLORIDE (10 MG) 10 MG TABLET GT SCH ×3 (09:15→16:32)
[2022-07-23] MEDS: ASCORBIC ACID 500 MG TABLET GT SCH ×2 (09:15→16:32)
[2022-07-23] MEDS: FERROUS SULFATE - FOR SA ONLY 330 MG/7.5 ML UDC GT SCH ×3 (09:15→16:32)
[2022-07-23] MEDS: METFORMIN 850 MG TABLET GT SCH ×2 (09:15→16:32)
[2022-07-23] MEDS: VITS A AND D/WHITE PET/LANOLIN 5 GM PACKET TP SCH ×2 (09:16→20:23)
[2022-07-23] MEDS: NYSTATIN CREAM 15 GM TUBE TP SCH ×2 (09:16→20:23)
[2022-07-23] MEDS: TRIAMCINOLONE ACETONIDE 0.1% CR 15 GM TUBE TP SCH ×2 (09:16→20:23)
[2022-07-23] MEDS: HEPARIN SODIUM, PORCINE 5000 UNITS/1 ML VIAL SQ SCH ×2 (09:56→20:23)
[2022-07-23 11:21] VITALS: BP 125/76
[2022-07-23] MEDS: GLUCERNA 1.2 1,000 ML BOTTLE GT PRN (12:38)
[2022-07-23 18:58] VITALS: BP 129/60
[2022-07-23] MEDS: MULTIVIT W/MINERALS 1 TAB TABLET GT SCH (20:23)
[2022-07-23] MEDS: [UNRECOGNIZED DRUG - OTHER] SQ SCH (21:14)
[2022-07-23] MEDS: BASAGLAR SQ SCH (21:14)
[2022-07-23 23:18] VITALS: BP 117/90
[2022-07-24] MEDS: POLYVINYL ALCOHOL 15 ML BOTTLE OP SCH ×5 (00:08→23:52)
[2022-07-24] MEDS: ALBUTEROL FS 2.5 MG/3 ML VIAL.NEB NEB SCH ×4 (02:05→19:52)
[2022-07-24] MEDS: IPRATROPIUM NEB FS 0.5 MG/2.5 ML AMPUL.NEB IH SCH ×4 (02:05→19:52)
[2022-07-24] MEDS: [UNRECOGNIZED DRUG - OTHER] SQ PRN ×2 (05:40→18:12)
[2022-07-24] MEDS: OMEPRAZOLE DR 20 MG GT SCH (05:40)
[2022-07-24] MEDS: BLOOD SUGAR DIAGNOSTIC 1 EACH STRIP IN SCH ×2 (05:40→18:12)
[2022-07-24 07:19] VITALS: BP 132/73
[2022-07-24] MEDS: DOCUSATE SODIUM LIQ 100 MG/10 ML UDC GT SCH (08:30)
[2022-07-24] MEDS: PROSTAT (PYXIS) 30 ML UDC GT SCH (08:30)
[2022-07-24] MEDS: FERROUS SULFATE - FOR SA ONLY 330 MG/7.5 ML UDC GT SCH ×3 (08:30→16:39)
[2022-07-24] MEDS: METFORMIN 850 MG TABLET GT SCH ×2 (08:30→16:39)
[2022-07-24] MEDS: BETHANECHOL CHLORIDE (10 MG) 10 MG TABLET GT SCH ×3 (08:30→16:39)
[2022-07-24] MEDS: BACLOFEN (10 MG) 10 MG TABLET GT SCH ×2 (08:30→21:24)
[2022-07-24] MEDS: ASCORBIC ACID 500 MG TABLET GT SCH ×2 (08:30→16:39)
[2022-07-24] MEDS: INDOMETHACIN 25 MG CAPSULE GT SCH ×2 (08:30→16:39)
[2022-07-24] MEDS: LEVETIRACETAM SOL (5 ML) 100 MG/ML UDC GT SCH ×2 (08:30→21:24)
[2022-07-24] MEDS: ZINC SULFATE 220 MG CAPSULE GT SCH (08:30)
[2022-07-24] MEDS: CHLORHEXIDINE GLUCONATE 15 ML UDC MM SCH ×2 (08:30→21:24)
[2022-07-24] MEDS: VITS A AND D/WHITE PET/LANOLIN 5 GM PACKET TP SCH ×2 (08:31→21:24)
[2022-07-24] MEDS: TRIAMCINOLONE ACETONIDE 0.1% CR 15 GM TUBE TP SCH ×2 (08:31→21:24)
[2022-07-24] MEDS: HEPARIN SODIUM, PORCINE 5000 UNITS/1 ML VIAL SQ SCH ×2 (08:31→21:24)
[2022-07-24] MEDS: NYSTATIN CREAM 15 GM TUBE TP SCH ×2 (08:31→21:24)
[2022-07-24] MEDS: HYDROGEN PEROXIDE 480 ML BOTTLE TP SCH ×2 (09:09→21:11)
[2022-07-24 11:30] VITALS: BP 120/77
[2022-07-24] MEDS: GLUCERNA 1.2 1,000 ML BOTTLE GT PRN (12:36)
[2022-07-24] MEDS: MAGNESIUM HYDROXIDE 30 ML UDC GT PRN (18:47)
[2022-07-24 19:52] VITALS: BP 118/85
[2022-07-24] MEDS: MULTIVIT W/MINERALS 1 TAB TABLET GT SCH (21:24)
[2022-07-24] MEDS: BASAGLAR SQ SCH (21:26)
[2022-07-24] MEDS: [UNRECOGNIZED DRUG - OTHER] SQ SCH (21:26)
[2022-07-25] MEDS: IPRATROPIUM NEB FS 0.5 MG/2.5 ML AMPUL.NEB IH SCH ×4 (01:36→19:48)
[2022-07-25] MEDS: ALBUTEROL FS 2.5 MG/3 ML VIAL.NEB NEB SCH ×4 (01:36→19:48)
[2022-07-25] MEDS: OMEPRAZOLE DR 20 MG GT SCH (05:25)
[2022-07-25] MEDS: POLYVINYL ALCOHOL 15 ML BOTTLE OP SCH ×3 (05:25→17:39)
[2022-07-25] MEDS: [UNRECOGNIZED DRUG - OTHER] SQ PRN ×2 (05:49→17:40)
[2022-07-25] MEDS: BLOOD SUGAR DIAGNOSTIC 1 EACH STRIP IN SCH ×2 (05:49→17:39)
[2022-07-25 07:57] VITALS: BP 128/74
[2022-07-25] MEDS: VITS A AND D/WHITE PET/LANOLIN 5 GM PACKET TP SCH ×2 (09:00→21:41)
[2022-07-25] MEDS: FERROUS SULFATE - FOR SA ONLY 330 MG/7.5 ML UDC GT SCH ×3 (09:00→16:44)
[2022-07-25] MEDS: ZINC SULFATE 220 MG CAPSULE GT SCH (09:00)
[2022-07-25] MEDS: HEPARIN SODIUM, PORCINE 5000 UNITS/1 ML VIAL SQ SCH ×2 (09:00→21:40)
[2022-07-25] MEDS: ASCORBIC ACID 500 MG TABLET GT SCH ×2 (09:00→16:44)
[2022-07-25] MEDS: DOCUSATE SODIUM LIQ 100 MG/10 ML UDC GT SCH (09:00)
[2022-07-25] MEDS: LEVETIRACETAM SOL (5 ML) 100 MG/ML UDC GT SCH ×2 (09:00→21:40)
[2022-07-25] MEDS: TRIAMCINOLONE ACETONIDE 0.1% CR 15 GM TUBE TP SCH ×2 (09:00→21:41)
[2022-07-25] MEDS: CHLORHEXIDINE GLUCONATE 15 ML UDC MM SCH ×2 (09:00→21:40)
[2022-07-25] MEDS: INDOMETHACIN 25 MG CAPSULE GT SCH ×2 (09:00→16:44)
[2022-07-25] MEDS: METFORMIN 850 MG TABLET GT SCH ×2 (09:00→16:44)
[2022-07-25] MEDS: BETHANECHOL CHLORIDE (10 MG) 10 MG TABLET GT SCH ×3 (09:00→16:44)
[2022-07-25] MEDS: PROSTAT (PYXIS) 30 ML UDC GT SCH (09:00)
[2022-07-25] MEDS: BACLOFEN (10 MG) 10 MG TABLET GT SCH ×2 (09:00→21:40)
[2022-07-25] MEDS: HYDROGEN PEROXIDE 480 ML BOTTLE TP SCH ×2 (09:49→21:07)
--- NOTE | 2022-07-25 16:20 | NUR ---
Pt. received on current vent settings and tolerated well. Vent is in the red plug. Sx. patient 2x + prn. No SOB or respiratory distress noted. Tx given with no adverse reactions noted. Ambu bag and back up trach is at the bed side. Pulse oximeter is on, audible and visible. Trach care done. Will keep monitor the pt. Addendum: 07/25/22 at 1628 by ERIN MURILLO RT Pt. received on current vent settings and tolerated well. Vent plugged into red outlet. Sx. patient 2x + prn. No SOB or respiratory distress noted. Tx given with no adverse reactions noted. Ambu bag and back up trach is at the bed side. Trach care done. Will keep monitor the pt.
[2022-07-25 19:50] VITALS: BP 121/74
[2022-07-25] MEDS: MULTIVIT W/MINERALS 1 TAB TABLET GT SCH (21:40)
[2022-07-25] MEDS: GLUCERNA 1.2 1,000 ML BOTTLE GT PRN (21:41)
[2022-07-25] MEDS: [UNRECOGNIZED DRUG - OTHER] SQ SCH (21:41)
[2022-07-25] MEDS: BASAGLAR SQ SCH (21:41)
[2022-07-26 01:28] VITALS: BP 125/77
[2022-07-26] MEDS: IPRATROPIUM NEB FS 0.5 MG/2.5 ML AMPUL.NEB IH SCH ×4 (01:37→19:34)
[2022-07-26] MEDS: ALBUTEROL FS 2.5 MG/3 ML VIAL.NEB NEB SCH ×4 (01:37→19:36)
[2022-07-26] MEDS: BLOOD SUGAR DIAGNOSTIC 1 EACH STRIP IN SCH ×2 (06:15→17:38)
[2022-07-26] MEDS: OMEPRAZOLE DR 20 MG GT SCH (06:15)
[2022-07-26] MEDS: POLYVINYL ALCOHOL 15 ML BOTTLE OP SCH ×4 (06:15→17:38)
[2022-07-26 07:06] VITALS: BP 94/64
[2022-07-26] MEDS: ZINC SULFATE 220 MG CAPSULE GT SCH (09:04)
[2022-07-26] MEDS: HEPARIN SODIUM, PORCINE 5000 UNITS/1 ML VIAL SQ SCH ×2 (09:04→21:53)
[2022-07-26] MEDS: LEVETIRACETAM SOL (5 ML) 100 MG/ML UDC GT SCH ×2 (09:04→21:52)
[2022-07-26] MEDS: TRIAMCINOLONE ACETONIDE 0.1% CR 15 GM TUBE TP SCH ×2 (09:04→21:53)
[2022-07-26] MEDS: DOCUSATE SODIUM LIQ 100 MG/10 ML UDC GT SCH (09:04)
[2022-07-26] MEDS: INDOMETHACIN 25 MG CAPSULE GT SCH ×2 (09:04→16:50)
[2022-07-26] MEDS: BETHANECHOL CHLORIDE (10 MG) 10 MG TABLET GT SCH ×3 (09:04→16:50)
[2022-07-26] MEDS: PROSTAT (PYXIS) 30 ML UDC GT SCH (09:04)
[2022-07-26] MEDS: ASCORBIC ACID 500 MG TABLET GT SCH ×2 (09:04→16:51)
[2022-07-26] MEDS: FERROUS SULFATE - FOR SA ONLY 330 MG/7.5 ML UDC GT SCH ×3 (09:04→16:50)
[2022-07-26] MEDS: METFORMIN 850 MG TABLET GT SCH ×2 (09:04→16:50)
[2022-07-26] MEDS: BACLOFEN (10 MG) 10 MG TABLET GT SCH ×2 (09:04→21:52)
[2022-07-26] MEDS: CHLORHEXIDINE GLUCONATE 15 ML UDC MM SCH ×2 (09:04→21:53)
[2022-07-26] MEDS: VITS A AND D/WHITE PET/LANOLIN 5 GM PACKET TP SCH ×2 (09:05→21:53)
[2022-07-26] MEDS: HYDROGEN PEROXIDE 480 ML BOTTLE TP SCH ×2 (09:15→21:21)
[2022-07-26 11:54] VITALS: BP 126/68
--- NOTE | 2022-07-26 14:35 | NUR ---
Intake Paperwork: Component Inspector met with the resident's Sister, Tosin Horvath [phone] to review & sign initial admission paperwork: (Patient Right's Acknowledgement, Documentation of Preferred Intensity of Care, Conditions of Admission, CDPH Agreement, and Voluntary Prior Express Consent form). SW provided patient's family with a copy of the Bill of Rights, & visitation guidelines. Tosin stated the resident's code status should be No CPR with Maximum Treatment. Admission paperwork was placed into the resident's chart. Component Inspector educated Tosin on [facility] Directive and Conservatorship and provided informational packets for her. Tosin expressed understanding and stated she will think about it and notify SW if she decides to file for conservatorship. The patient is not alert and oriented enough to complete Advanced Healthcare Directive at this time.
--- NOTE | 2022-07-26 16:30 | NUR ---
Seen and examined by LORENZO Rodgers, no new order given.
[2022-07-26] MEDS: [UNRECOGNIZED DRUG - OTHER] SQ PRN (17:39)
[2022-07-26 20:00] VITALS: BP 104/62
[2022-07-26] MEDS: MULTIVIT W/MINERALS 1 TAB TABLET GT SCH (21:53)
[2022-07-26] MEDS: [UNRECOGNIZED DRUG - OTHER] SQ SCH (21:54)
[2022-07-26] MEDS: BASAGLAR SQ SCH (21:54)
[2022-07-27] MEDS: POLYVINYL ALCOHOL 15 ML BOTTLE OP SCH ×4 (00:24→17:16)
[2022-07-27] MEDS: GLUCERNA 1.2 1,000 ML BOTTLE GT PRN (01:02)
[2022-07-27] MEDS: IPRATROPIUM NEB FS 0.5 MG/2.5 ML AMPUL.NEB IH SCH ×4 (01:44→19:53)
[2022-07-27] MEDS: ALBUTEROL FS 2.5 MG/3 ML VIAL.NEB NEB SCH ×4 (01:44→19:53)
[2022-07-27] MEDS: BLOOD SUGAR DIAGNOSTIC 1 EACH STRIP IN SCH ×2 (05:30→17:16)
[2022-07-27] MEDS: OMEPRAZOLE DR 20 MG GT SCH (05:30)
[2022-07-27 07:10] VITALS: BP 120/66
[2022-07-27] MEDS: FERROUS SULFATE - FOR SA ONLY 330 MG/7.5 ML UDC GT SCH ×3 (09:10→16:18)
[2022-07-27] MEDS: DOCUSATE SODIUM LIQ 100 MG/10 ML UDC GT SCH (09:10)
[2022-07-27] MEDS: METFORMIN 850 MG TABLET GT SCH ×2 (09:10→16:18)
[2022-07-27] MEDS: INDOMETHACIN 25 MG CAPSULE GT SCH ×2 (09:11→16:18)
[2022-07-27] MEDS: BACLOFEN (10 MG) 10 MG TABLET GT SCH ×2 (09:11→21:45)
[2022-07-27] MEDS: LEVETIRACETAM SOL (5 ML) 100 MG/ML UDC GT SCH ×2 (09:11→21:45)
[2022-07-27] MEDS: BETHANECHOL CHLORIDE (10 MG) 10 MG TABLET GT SCH ×3 (09:11→16:18)
[2022-07-27] MEDS: PROSTAT (PYXIS) 30 ML UDC GT SCH (09:11)
[2022-07-27] MEDS: ASCORBIC ACID 500 MG TABLET GT SCH ×2 (09:12→16:18)
[2022-07-27] MEDS: ZINC SULFATE 220 MG CAPSULE GT SCH (09:12)
[2022-07-27] MEDS: CHLORHEXIDINE GLUCONATE 15 ML UDC MM SCH ×2 (09:12→21:46)
[2022-07-27] MEDS: HEPARIN SODIUM, PORCINE 5000 UNITS/1 ML VIAL SQ SCH ×2 (09:13→21:46)
[2022-07-27] MEDS: TRIAMCINOLONE ACETONIDE 0.1% CR 15 GM TUBE TP SCH ×2 (09:13→21:46)
[2022-07-27] MEDS: VITS A AND D/WHITE PET/LANOLIN 5 GM PACKET TP SCH ×2 (09:14→21:47)
[2022-07-27] MEDS: HYDROGEN PEROXIDE 480 ML BOTTLE TP SCH ×2 (11:24→21:25)
[2022-07-27 11:29] VITALS: BP 126/73
[2022-07-27 20:00] VITALS: BP 102/69
[2022-07-27] MEDS: MULTIVIT W/MINERALS 1 TAB TABLET GT SCH (21:46)
[2022-07-27] MEDS: [UNRECOGNIZED DRUG - OTHER] SQ SCH (21:47)
[2022-07-27] MEDS: BASAGLAR SQ SCH (21:47)
[2022-07-28] MEDS: ALBUTEROL FS 2.5 MG/3 ML VIAL.NEB NEB SCH ×4 (01:45→20:09)
[2022-07-28] MEDS: IPRATROPIUM NEB FS 0.5 MG/2.5 ML AMPUL.NEB IH SCH ×4 (01:45→20:09)
[2022-07-28] MEDS: POLYVINYL ALCOHOL 15 ML BOTTLE OP SCH ×5 (05:58→23:21)
[2022-07-28] MEDS: BLOOD SUGAR DIAGNOSTIC 1 EACH STRIP IN SCH ×2 (05:58→17:14)
[2022-07-28] MEDS: OMEPRAZOLE DR 20 MG GT SCH (05:58)
--- NOTE | 2022-07-28 06:28 | NUR ---
RT Patient remains stable on continuous ventilator support throughout the shift, no respiratory distress noted. Trach tube midline and patent, will continue to monitor. Addendum: 07/28/22 at 0628 by EDNA JUNIOR RT Amended: Links added.
[2022-07-28 07:19] VITALS: BP 119/73
[2022-07-28] MEDS: HYDROGEN PEROXIDE 480 ML BOTTLE TP SCH ×2 (08:22→20:09)
[2022-07-28] MEDS: ZINC SULFATE 220 MG CAPSULE GT SCH (09:06)
[2022-07-28] MEDS: BETHANECHOL CHLORIDE (10 MG) 10 MG TABLET GT SCH ×3 (09:06→17:14)
[2022-07-28] MEDS: BACLOFEN (10 MG) 10 MG TABLET GT SCH ×2 (09:06→21:21)
[2022-07-28] MEDS: METFORMIN 850 MG TABLET GT SCH ×2 (09:06→17:14)
[2022-07-28] MEDS: PROSTAT (PYXIS) 30 ML UDC GT SCH (09:06)
[2022-07-28] MEDS: LEVETIRACETAM SOL (5 ML) 100 MG/ML UDC GT SCH ×2 (09:06→21:20)
[2022-07-28] MEDS: INDOMETHACIN 25 MG CAPSULE GT SCH ×2 (09:06→17:14)
[2022-07-28] MEDS: FERROUS SULFATE - FOR SA ONLY 330 MG/7.5 ML UDC GT SCH ×3 (09:06→17:14)
[2022-07-28] MEDS: DOCUSATE SODIUM LIQ 100 MG/10 ML UDC GT SCH (09:06)
[2022-07-28] MEDS: CHLORHEXIDINE GLUCONATE 15 ML UDC MM SCH ×2 (09:06→21:21)
[2022-07-28] MEDS: ASCORBIC ACID 500 MG TABLET GT SCH ×2 (09:06→17:14)
[2022-07-28] MEDS: TRIAMCINOLONE ACETONIDE 0.1% CR 15 GM TUBE TP SCH ×2 (09:08→21:22)
[2022-07-28] MEDS: VITS A AND D/WHITE PET/LANOLIN 5 GM PACKET TP SCH ×2 (09:08→21:22)
[2022-07-28] MEDS: HEPARIN SODIUM, PORCINE 5000 UNITS/1 ML VIAL SQ SCH ×2 (09:08→21:21)
[2022-07-28 13:24] VITALS: BP 128/66
[2022-07-28] MEDS: [UNRECOGNIZED DRUG - OTHER] SQ PRN (17:27)
[2022-07-28 20:00] VITALS: BP 127/64
[2022-07-28] MEDS: MULTIVIT W/MINERALS 1 TAB TABLET GT SCH (21:21)
[2022-07-28] MEDS: [UNRECOGNIZED DRUG - OTHER] SQ SCH (21:22)
[2022-07-28] MEDS: BASAGLAR SQ SCH (21:22)
[2022-07-29] MEDS: ALBUTEROL FS 2.5 MG/3 ML VIAL.NEB NEB SCH ×4 (02:16→20:23)
[2022-07-29] MEDS: IPRATROPIUM NEB FS 0.5 MG/2.5 ML AMPUL.NEB IH SCH ×4 (02:16→20:23)
[2022-07-29] MEDS: BLOOD SUGAR DIAGNOSTIC 1 EACH STRIP IN SCH ×2 (05:42→17:24)
[2022-07-29] MEDS: POLYVINYL ALCOHOL 15 ML BOTTLE OP SCH ×4 (05:42→23:53)
[2022-07-29] MEDS: OMEPRAZOLE DR 20 MG GT SCH (05:42)
[2022-07-29] MEDS: [UNRECOGNIZED DRUG - OTHER] SQ PRN ×2 (05:43→17:25)
[2022-07-29] MEDS: GLUCERNA 1.2 1,000 ML BOTTLE GT PRN (07:00)
[2022-07-29 07:18] VITALS: BP 122/75
[2022-07-29] MEDS: HYDROGEN PEROXIDE 480 ML BOTTLE TP SCH ×2 (07:53→20:23)
[2022-07-29] MEDS: DOCUSATE SODIUM LIQ 100 MG/10 ML UDC GT SCH (08:18)
[2022-07-29] MEDS: FERROUS SULFATE - FOR SA ONLY 330 MG/7.5 ML UDC GT SCH ×3 (08:18→16:08)
[2022-07-29] MEDS: INDOMETHACIN 25 MG CAPSULE GT SCH ×2 (08:20→16:08)
[2022-07-29] MEDS: BACLOFEN (10 MG) 10 MG TABLET GT SCH ×2 (08:20→21:07)
[2022-07-29] MEDS: PROSTAT (PYXIS) 30 ML UDC GT SCH (08:20)
[2022-07-29] MEDS: METFORMIN 850 MG TABLET GT SCH ×2 (08:20→16:08)
[2022-07-29] MEDS: CHLORHEXIDINE GLUCONATE 15 ML UDC MM SCH ×2 (08:20→21:07)
[2022-07-29] MEDS: ZINC SULFATE 220 MG CAPSULE GT SCH (08:20)
[2022-07-29] MEDS: ASCORBIC ACID 500 MG TABLET GT SCH ×2 (08:20→16:08)
[2022-07-29] MEDS: BETHANECHOL CHLORIDE (10 MG) 10 MG TABLET GT SCH ×3 (08:20→16:08)
[2022-07-29] MEDS: LEVETIRACETAM SOL (5 ML) 100 MG/ML UDC GT SCH ×2 (08:20→21:07)
[2022-07-29] MEDS: VITS A AND D/WHITE PET/LANOLIN 5 GM PACKET TP SCH ×2 (08:21→21:08)
[2022-07-29] MEDS: TRIAMCINOLONE ACETONIDE 0.1% CR 15 GM TUBE TP SCH ×2 (08:21→21:08)
[2022-07-29] MEDS: HEPARIN SODIUM, PORCINE 5000 UNITS/1 ML VIAL SQ SCH ×2 (08:21→21:08)
[2022-07-29 12:01] VITALS: BP 112/77
[2022-07-29 18:53] VITALS: BP 128/84
[2022-07-29] MEDS: MULTIVIT W/MINERALS 1 TAB TABLET GT SCH (21:07)
[2022-07-29] MEDS: BASAGLAR SQ SCH (21:08)
[2022-07-29] MEDS: [UNRECOGNIZED DRUG - OTHER] SQ SCH (21:08)
[2022-07-30 00:11] VITALS: BP 120/78
[2022-07-30] MEDS: ALBUTEROL FS 2.5 MG/3 ML VIAL.NEB NEB SCH ×4 (02:02→19:37)
[2022-07-30] MEDS: IPRATROPIUM NEB FS 0.5 MG/2.5 ML AMPUL.NEB IH SCH ×4 (02:02→19:37)
--- NOTE | 2022-07-30 02:58 | NUR ---
RT pt received on CA, 28%. trached. small thick secretions. no sob, no resp distress. spare trach and ambu bag at bedside. neb txs given. Addendum: 07/30/22 at 0300 by CHUCHO ANGELES RT [facility]. trached. small thick secretions. no resp distress. no sob. spare trach and ambu bag at bedside. neb txs given
[2022-07-30] MEDS: [UNRECOGNIZED DRUG - OTHER] SQ PRN ×2 (06:19→17:22)
[2022-07-30] MEDS: BLOOD SUGAR DIAGNOSTIC 1 EACH STRIP IN SCH ×2 (06:19→17:20)
[2022-07-30] MEDS: POLYVINYL ALCOHOL 15 ML BOTTLE OP SCH ×3 (06:19→17:20)
[2022-07-30] MEDS: OMEPRAZOLE DR 20 MG GT SCH (06:19)
[2022-07-30] MEDS: HYDROGEN PEROXIDE 480 ML BOTTLE TP SCH ×2 (08:15→19:37)
[2022-07-30] MEDS: PROSTAT (PYXIS) 30 ML UDC GT SCH (09:26)
[2022-07-30] MEDS: BETHANECHOL CHLORIDE (10 MG) 10 MG TABLET GT SCH ×3 (09:26→16:19)
[2022-07-30] MEDS: BACLOFEN (10 MG) 10 MG TABLET GT SCH ×2 (09:26→21:34)
[2022-07-30] MEDS: ASCORBIC ACID 500 MG TABLET GT SCH ×2 (09:26→16:19)
[2022-07-30] MEDS: DOCUSATE SODIUM LIQ 100 MG/10 ML UDC GT SCH (09:26)
[2022-07-30] MEDS: INDOMETHACIN 25 MG CAPSULE GT SCH ×2 (09:26→16:19)
[2022-07-30] MEDS: METFORMIN 850 MG TABLET GT SCH ×2 (09:26→16:19)
[2022-07-30] MEDS: CHLORHEXIDINE GLUCONATE 15 ML UDC MM SCH ×2 (09:26→21:34)
[2022-07-30] MEDS: FERROUS SULFATE - FOR SA ONLY 330 MG/7.5 ML UDC GT SCH ×3 (09:26→16:19)
[2022-07-30] MEDS: ZINC SULFATE 220 MG CAPSULE GT SCH (09:26)
[2022-07-30] MEDS: LEVETIRACETAM SOL (5 ML) 100 MG/ML UDC GT SCH ×2 (09:26→21:34)
[2022-07-30] MEDS: VITS A AND D/WHITE PET/LANOLIN 5 GM PACKET TP SCH ×2 (09:27→21:35)
[2022-07-30] MEDS: HEPARIN SODIUM, PORCINE 5000 UNITS/1 ML VIAL SQ SCH ×2 (09:27→21:35)
[2022-07-30] MEDS: TRIAMCINOLONE ACETONIDE 0.1% CR 15 GM TUBE TP SCH ×2 (09:27→21:35)
[2022-07-30 11:28] VITALS: BP 132/70
[2022-07-30 11:29] VITALS: BP 119/75
--- NOTE | 2022-07-30 17:04 | NUR ---
RECEIVED PATIENT ON MD ORDERED VENT SETTINGS. HAS A TRACH SHILEY 6 XLT CUFFED. AIRWAY PATENT AND SECURE. INLINE HHN TXS TUTU WELL WITH NO ADVERSE REACTION NOTED. AMBU BAG AND EMERGENCY TRACH AT THE BEDSIDE. VENT PLUGGED INTO RED OUTLET. ALARMS SET AND AUDIBLE. SMALL YELLOW THICK SECRETIONS NOTED.
[2022-07-30 18:57] VITALS: BP 121/72
[2022-07-30] MEDS: MULTIVIT W/MINERALS 1 TAB TABLET GT SCH (21:34)
[2022-07-30] MEDS: [UNRECOGNIZED DRUG - OTHER] SQ SCH (21:40)
[2022-07-30] MEDS: BASAGLAR SQ SCH (21:40)
[2022-07-30 23:17] VITALS: BP 127/82
[2022-07-31] MEDS: POLYVINYL ALCOHOL 15 ML BOTTLE OP SCH ×4 (00:19→17:03)
[2022-07-31] MEDS: ALBUTEROL FS 2.5 MG/3 ML VIAL.NEB NEB SCH ×4 (01:23→19:35)
[2022-07-31] MEDS: IPRATROPIUM NEB FS 0.5 MG/2.5 ML AMPUL.NEB IH SCH ×4 (01:23→19:35)
--- NOTE | 2022-07-31 05:19 | NUR ---
PATIENT RECEIVED ON TRACH TO VENT WITH SETTINGS OF AC 12, 450 Vt, 30%, +5. SUCTIONED FOR MINIMAL, THIN, WHITE SECRETIONS. GIVEN IN-LINE TREATMENTS WITH NO ADVERSE REACTIONS. AMBU BAG AT BEDSIDE. VENT ALARM AUDIBLE AND VISIBLE. TRACH CARE DONE. VENT PLUGGED INTO RED OUTLET. Addendum: 07/31/22 at 0521 by WHITNEY KLEIN RT Amended: Links added.
[2022-07-31] MEDS: BLOOD SUGAR DIAGNOSTIC 1 EACH STRIP IN SCH ×2 (05:25→17:06)
[2022-07-31] MEDS: OMEPRAZOLE DR 20 MG GT SCH (05:25)
[2022-07-31] MEDS: GLUCERNA 1.2 1,000 ML BOTTLE GT PRN ×2 (05:25→21:33)
[2022-07-31] MEDS: [UNRECOGNIZED DRUG - OTHER] SQ PRN ×2 (05:26→17:08)
[2022-07-31 07:46] VITALS: BP 120/77
[2022-07-31] MEDS: LEVETIRACETAM SOL (5 ML) 100 MG/ML UDC GT SCH ×2 (08:23→21:25)
[2022-07-31] MEDS: CHLORHEXIDINE GLUCONATE 15 ML UDC MM SCH ×2 (08:23→21:25)
[2022-07-31] MEDS: TRIAMCINOLONE ACETONIDE 0.1% CR 15 GM TUBE TP SCH ×2 (08:23→21:25)
[2022-07-31] MEDS: METFORMIN 850 MG TABLET GT SCH ×2 (08:23→16:22)
[2022-07-31] MEDS: PROSTAT (PYXIS) 30 ML UDC GT SCH (08:23)
[2022-07-31] MEDS: DOCUSATE SODIUM LIQ 100 MG/10 ML UDC GT SCH (08:23)
[2022-07-31] MEDS: BETHANECHOL CHLORIDE (10 MG) 10 MG TABLET GT SCH ×3 (08:23→16:22)
[2022-07-31] MEDS: INDOMETHACIN 25 MG CAPSULE GT SCH ×2 (08:23→16:22)
[2022-07-31] MEDS: ASCORBIC ACID 500 MG TABLET GT SCH ×2 (08:23→16:22)
[2022-07-31] MEDS: ZINC SULFATE 220 MG CAPSULE GT SCH (08:23)
[2022-07-31] MEDS: BACLOFEN (10 MG) 10 MG TABLET GT SCH ×2 (08:23→21:25)
[2022-07-31] MEDS: VITS A AND D/WHITE PET/LANOLIN 5 GM PACKET TP SCH ×2 (08:23→21:26)
[2022-07-31] MEDS: FERROUS SULFATE - FOR SA ONLY 330 MG/7.5 ML UDC GT SCH ×3 (08:23→16:22)
[2022-07-31] MEDS: HYDROGEN PEROXIDE 480 ML BOTTLE TP SCH ×2 (08:28→19:35)
[2022-07-31] MEDS: HEPARIN SODIUM, PORCINE 5000 UNITS/1 ML VIAL SQ SCH ×2 (09:43→21:25)
[2022-07-31 12:13] VITALS: BP 132/68
[2022-07-31 18:51] VITALS: BP 115/76
[2022-07-31] MEDS ORDERED: TRIAMCINOLONE ACETONIDE 0.1% CR 15 GM TUBE TP SCH (21:00)
[2022-07-31] MEDS: MULTIVIT W/MINERALS 1 TAB TABLET GT SCH (21:25)
[2022-07-31] MEDS: [UNRECOGNIZED DRUG - OTHER] SQ SCH (21:26)
[2022-07-31] MEDS: BASAGLAR SQ SCH (21:26)
[2022-07-31] MEDS: NYSTATIN CREAM 15 GM TUBE TP SCH (21:26)
[2022-07-31 23:52] VITALS: BP 119/78
[2022-08-01] MEDS: POLYVINYL ALCOHOL 15 ML BOTTLE OP SCH ×4 (00:07→17:04)
[2022-08-01] MEDS: IPRATROPIUM NEB FS 0.5 MG/2.5 ML AMPUL.NEB IH SCH ×4 (01:21→19:30)
[2022-08-01] MEDS: ALBUTEROL FS 2.5 MG/3 ML VIAL.NEB NEB SCH ×4 (01:21→19:30)
[2022-08-01] MEDS: BLOOD SUGAR DIAGNOSTIC 1 EACH STRIP IN SCH ×2 (06:20→17:22)
[2022-08-01] MEDS: OMEPRAZOLE DR 20 MG GT SCH (06:20)
[2022-08-01] MEDS: [UNRECOGNIZED DRUG - OTHER] SQ PRN (06:21)
[2022-08-01 08:00] VITALS: BP 106/69
[2022-08-01] MEDS: HYDROGEN PEROXIDE 480 ML BOTTLE TP SCH ×2 (08:20→20:36)
[2022-08-01] MEDS: CHLORHEXIDINE GLUCONATE 15 ML UDC MM SCH ×2 (09:11→21:02)
[2022-08-01] MEDS: FERROUS SULFATE - FOR SA ONLY 330 MG/7.5 ML UDC GT SCH ×3 (09:11→17:03)
[2022-08-01] MEDS: METFORMIN 850 MG TABLET GT SCH ×2 (09:11→17:04)
[2022-08-01] MEDS: LEVETIRACETAM SOL (5 ML) 100 MG/ML UDC GT SCH ×2 (09:11→21:02)
[2022-08-01] MEDS: DOCUSATE SODIUM LIQ 100 MG/10 ML UDC GT SCH (09:11)
[2022-08-01] MEDS: PROSTAT (PYXIS) 30 ML UDC GT SCH (09:11)
[2022-08-01] MEDS: BETHANECHOL CHLORIDE (10 MG) 10 MG TABLET GT SCH ×3 (09:11→17:04)
[2022-08-01] MEDS: INDOMETHACIN 25 MG CAPSULE GT SCH ×2 (09:11→17:04)
[2022-08-01] MEDS: BACLOFEN (10 MG) 10 MG TABLET GT SCH ×2 (09:11→21:02)
[2022-08-01] MEDS: ZINC SULFATE 220 MG CAPSULE GT SCH (09:11)
[2022-08-01] MEDS: ASCORBIC ACID 500 MG TABLET GT SCH ×2 (09:11→17:04)
[2022-08-01] MEDS: NYSTATIN CREAM 15 GM TUBE TP SCH ×2 (09:12→21:03)
[2022-08-01] MEDS: HEPARIN SODIUM, PORCINE 5000 UNITS/1 ML VIAL SQ SCH ×2 (09:12→21:03)
[2022-08-01] MEDS: VITS A AND D/WHITE PET/LANOLIN 5 GM PACKET TP SCH ×2 (09:12→21:03)
[2022-08-01] MEDS: TRIAMCINOLONE ACETONIDE 0.1% CR 15 GM TUBE TP SCH ×2 (09:12→21:03)
[2022-08-01 12:00] VITALS: BP 107/64
--- NOTE | 2022-08-01 16:45 | NUR ---
Spoke to patients' sister and made her aware that one of the resident tested positive of Covid 19 today, this patient on Covid 19 Contact isolation, keep N95 on all times.
[2022-08-01 18:57] VITALS: BP 116/80
[2022-08-01] MEDS: MULTIVIT W/MINERALS 1 TAB TABLET GT SCH (21:02)
[2022-08-01] MEDS: [UNRECOGNIZED DRUG - OTHER] SQ SCH (21:18)
[2022-08-01] MEDS: BASAGLAR SQ SCH (21:18)
[2022-08-01 23:31] VITALS: BP 127/80
--- NOTE | 2022-08-02 00:54 | NUR ---
RT Pt received on current vent settings per MD order. Airway patent and secure. Suctioned moderate yellow-white thick secretions. Breathing tx given with no adverse reaction noted. Back up trach and ambu bag at bedside. No SOB or respiratory noted at this time.
[2022-08-02] MEDS: IPRATROPIUM NEB FS 0.5 MG/2.5 ML AMPUL.NEB IH SCH ×4 (01:30→19:35)
[2022-08-02] MEDS: ALBUTEROL FS 2.5 MG/3 ML VIAL.NEB NEB SCH ×4 (01:30→19:35)
[2022-08-02] MEDS: OMEPRAZOLE DR 20 MG GT SCH (05:39)
[2022-08-02] MEDS: POLYVINYL ALCOHOL 15 ML BOTTLE OP SCH ×4 (05:39→17:17)
[2022-08-02] MEDS: [UNRECOGNIZED DRUG - OTHER] SQ PRN ×2 (05:39→17:18)
[2022-08-02] MEDS: BLOOD SUGAR DIAGNOSTIC 1 EACH STRIP IN SCH ×2 (05:39→17:16)
[2022-08-02 08:00] VITALS: BP 119/64
[2022-08-02] MEDS: DOCUSATE SODIUM LIQ 100 MG/10 ML UDC GT SCH (08:38)
[2022-08-02] MEDS: FERROUS SULFATE - FOR SA ONLY 330 MG/7.5 ML UDC GT SCH ×3 (08:39→17:11)
[2022-08-02] MEDS: METFORMIN 850 MG TABLET GT SCH ×2 (08:41→17:11)
[2022-08-02] MEDS: INDOMETHACIN 25 MG CAPSULE GT SCH ×2 (08:42→17:12)
[2022-08-02] MEDS: BACLOFEN (10 MG) 10 MG TABLET GT SCH ×2 (08:43→21:40)
[2022-08-02] MEDS: PROSTAT (PYXIS) 30 ML UDC GT SCH (08:43)
[2022-08-02] MEDS: LEVETIRACETAM SOL (5 ML) 100 MG/ML UDC GT SCH ×2 (08:43→21:40)
[2022-08-02] MEDS: BETHANECHOL CHLORIDE (10 MG) 10 MG TABLET GT SCH ×3 (08:44→17:12)
[2022-08-02] MEDS: ASCORBIC ACID 500 MG TABLET GT SCH ×2 (08:44→17:13)
[2022-08-02] MEDS: ZINC SULFATE 220 MG CAPSULE GT SCH (08:45)
[2022-08-02] MEDS: CHLORHEXIDINE GLUCONATE 15 ML UDC MM SCH ×2 (08:45→21:40)
[2022-08-02] MEDS: HEPARIN SODIUM, PORCINE 5000 UNITS/1 ML VIAL SQ SCH ×2 (08:48→21:40)
[2022-08-02] MEDS: NYSTATIN CREAM 15 GM TUBE TP SCH ×2 (08:48→21:40)
[2022-08-02] MEDS: TRIAMCINOLONE ACETONIDE 0.1% CR 15 GM TUBE TP SCH ×2 (08:48→21:40)
[2022-08-02] MEDS: VITS A AND D/WHITE PET/LANOLIN 5 GM PACKET TP SCH ×2 (08:49→21:40)
[2022-08-02] MEDS: HYDROGEN PEROXIDE 480 ML BOTTLE TP SCH ×2 (09:25→21:08)
[2022-08-02 12:00] VITALS: BP 117/70
--- NOTE | 2022-08-02 14:14 | NUR ---
RT NOTE Pt received on current vent settings per MD order. Airway patent and secure. Suctioned moderate yellow-white thick secretions. Breathing tx given with no adverse reaction noted. Back up trach and ambu bag at bedside. No SOB or respiratory noted at this time. Will continue to monitor for any changes.
--- NOTE | 2022-08-02 16:46 | NUR ---
Facility Update: ERVIN called the pt.'s sister, Tosin [phone] and notified them that, "As of 08/01/2022 Two Sub-Acute residents and 1 staff member tested positive for COVID-19 SO continues to following [facility] infection control guidelines. SO will continue response testing and screening for symptoms of Residents and staff." ERVIN attached latest visitation guidelines and encouraged families to receive latest booster.
[2022-08-02] MEDS: GLUCERNA 1.2 1,000 ML BOTTLE GT PRN (18:56)
[2022-08-02 20:02] VITALS: BP 114/69
[2022-08-02] MEDS: MULTIVIT W/MINERALS 1 TAB TABLET GT SCH (21:40)
[2022-08-02] MEDS: BASAGLAR SQ SCH (21:41)
[2022-08-02] MEDS: [UNRECOGNIZED DRUG - OTHER] SQ SCH (21:41)
[2022-08-02 23:26] VITALS: BP 127/75
[2022-08-03] MEDS: POLYVINYL ALCOHOL 15 ML BOTTLE OP SCH ×5 (00:19→23:35)
[2022-08-03] MEDS: ALBUTEROL FS 2.5 MG/3 ML VIAL.NEB NEB SCH ×4 (01:42→19:53)
[2022-08-03] MEDS: IPRATROPIUM NEB FS 0.5 MG/2.5 ML AMPUL.NEB IH SCH ×4 (01:42→19:53)
[2022-08-03] MEDS: BLOOD SUGAR DIAGNOSTIC 1 EACH STRIP IN SCH ×2 (05:43→17:22)
[2022-08-03] MEDS: OMEPRAZOLE DR 20 MG GT SCH (05:43)
[2022-08-03] MEDS: [UNRECOGNIZED DRUG - OTHER] SQ PRN ×2 (05:59→17:23)
[2022-08-03 07:27] VITALS: BP 103/65
[2022-08-03 07:35] VITALS: BP 115/61
[2022-08-03] MEDS: FERROUS SULFATE - FOR SA ONLY 330 MG/7.5 ML UDC GT SCH ×3 (08:17→16:28)
[2022-08-03] MEDS: LEVETIRACETAM SOL (5 ML) 100 MG/ML UDC GT SCH ×2 (08:17→21:46)
[2022-08-03] MEDS: PROSTAT (PYXIS) 30 ML UDC GT SCH (08:17)
[2022-08-03] MEDS: BACLOFEN (10 MG) 10 MG TABLET GT SCH ×2 (08:17→21:46)
[2022-08-03] MEDS: INDOMETHACIN 25 MG CAPSULE GT SCH ×2 (08:17→16:28)
[2022-08-03] MEDS: ZINC SULFATE 220 MG CAPSULE GT SCH (08:17)
[2022-08-03] MEDS: ASCORBIC ACID 500 MG TABLET GT SCH ×2 (08:17→16:28)
[2022-08-03] MEDS: BETHANECHOL CHLORIDE (10 MG) 10 MG TABLET GT SCH ×3 (08:17→16:28)
[2022-08-03] MEDS: DOCUSATE SODIUM LIQ 100 MG/10 ML UDC GT SCH (08:17)
[2022-08-03] MEDS: METFORMIN 850 MG TABLET GT SCH ×2 (08:17→16:28)
[2022-08-03] MEDS: CHLORHEXIDINE GLUCONATE 15 ML UDC MM SCH ×2 (08:17→21:46)
[2022-08-03] MEDS: NYSTATIN CREAM 15 GM TUBE TP SCH ×2 (08:18→21:46)
[2022-08-03] MEDS: HEPARIN SODIUM, PORCINE 5000 UNITS/1 ML VIAL SQ SCH ×2 (08:18→21:46)
[2022-08-03] MEDS: VITS A AND D/WHITE PET/LANOLIN 5 GM PACKET TP SCH ×2 (08:18→21:46)
[2022-08-03] MEDS: HYDROGEN PEROXIDE 480 ML BOTTLE TP SCH ×2 (09:24→21:10)
[2022-08-03 13:10] VITALS: BP 116/73
[2022-08-03] MEDS: GLUCERNA 1.2 1,000 ML BOTTLE GT PRN (15:54)
--- NOTE | 2022-08-03 16:47 | NUR ---
Facility Update: ERVIN called the pt.'s sister, Tosin [phone] notified them that, "1 staff member tested positive for COVID-19 SO continues to following [facility] of Public Healths infection control guidelines. SO will continue response testing and screening for symptoms of Residents and staff." ERVIN attached latest visitation guidelines and encouraged families to receive latest booster.
[2022-08-03 19:40] VITALS: BP 129/79
[2022-08-03] MEDS: MULTIVIT W/MINERALS 1 TAB TABLET GT SCH (21:46)
[2022-08-03] MEDS: [UNRECOGNIZED DRUG - OTHER] SQ SCH (22:08)
[2022-08-03] MEDS: BASAGLAR SQ SCH (22:08)
[2022-08-04] MEDS: ALBUTEROL FS 2.5 MG/3 ML VIAL.NEB NEB SCH ×4 (01:40→18:55)
[2022-08-04] MEDS: IPRATROPIUM NEB FS 0.5 MG/2.5 ML AMPUL.NEB IH SCH ×4 (01:40→18:55)
[2022-08-04] MEDS: POLYVINYL ALCOHOL 15 ML BOTTLE OP SCH ×4 (05:43→23:25)
[2022-08-04] MEDS: BLOOD SUGAR DIAGNOSTIC 1 EACH STRIP IN SCH ×2 (05:43→17:41)
[2022-08-04] MEDS: OMEPRAZOLE DR 20 MG GT SCH (05:43)
[2022-08-04] MEDS: [UNRECOGNIZED DRUG - OTHER] SQ PRN ×2 (05:44→17:42)
[2022-08-04 07:15] VITALS: BP 114/66
[2022-08-04] MEDS: FERROUS SULFATE - FOR SA ONLY 330 MG/7.5 ML UDC GT SCH ×3 (09:14→17:41)
[2022-08-04] MEDS: DOCUSATE SODIUM LIQ 100 MG/10 ML UDC GT SCH (09:14)
[2022-08-04] MEDS: LEVETIRACETAM SOL (5 ML) 100 MG/ML UDC GT SCH ×2 (09:14→20:55)
[2022-08-04] MEDS: INDOMETHACIN 25 MG CAPSULE GT SCH ×2 (09:14→17:41)
[2022-08-04] MEDS: BACLOFEN (10 MG) 10 MG TABLET GT SCH ×2 (09:14→20:55)
[2022-08-04] MEDS: METFORMIN 850 MG TABLET GT SCH ×2 (09:14→17:41)
[2022-08-04] MEDS: PROSTAT (PYXIS) 30 ML UDC GT SCH (09:14)
[2022-08-04] MEDS: ZINC SULFATE 220 MG CAPSULE GT SCH (09:15)
[2022-08-04] MEDS: CHLORHEXIDINE GLUCONATE 15 ML UDC MM SCH ×2 (09:15→20:56)
[2022-08-04] MEDS: BETHANECHOL CHLORIDE (10 MG) 10 MG TABLET GT SCH ×3 (09:15→17:41)
[2022-08-04] MEDS: HEPARIN SODIUM, PORCINE 5000 UNITS/1 ML VIAL SQ SCH ×2 (09:15→20:56)
[2022-08-04] MEDS: VITS A AND D/WHITE PET/LANOLIN 5 GM PACKET TP SCH ×2 (09:15→20:56)
[2022-08-04] MEDS: ASCORBIC ACID 500 MG TABLET GT SCH ×2 (09:15→17:41)
[2022-08-04] MEDS: NYSTATIN CREAM 15 GM TUBE TP SCH ×2 (09:15→20:56)
[2022-08-04] MEDS: HYDROGEN PEROXIDE 480 ML BOTTLE TP SCH ×2 (09:28→20:39)
[2022-08-04 13:05] VITALS: BP 119/71
[2022-08-04] MEDS: GLUCERNA 1.2 1,000 ML BOTTLE GT PRN (13:59)
[2022-08-04 19:04] VITALS: BP 117/70
[2022-08-04] MEDS: MULTIVIT W/MINERALS 1 TAB TABLET GT SCH (20:56)
[2022-08-04] MEDS: BASAGLAR SQ SCH (22:01)
[2022-08-04] MEDS: [UNRECOGNIZED DRUG - OTHER] SQ SCH (22:01)
[2022-08-05] MEDS: IPRATROPIUM NEB FS 0.5 MG/2.5 ML AMPUL.NEB IH SCH ×4 (00:50→18:46)
[2022-08-05] MEDS: ALBUTEROL FS 2.5 MG/3 ML VIAL.NEB NEB SCH ×4 (00:50→18:46)
[2022-08-05] MEDS: BLOOD SUGAR DIAGNOSTIC 1 EACH STRIP IN SCH ×2 (05:55→18:21)
[2022-08-05] MEDS: POLYVINYL ALCOHOL 15 ML BOTTLE OP SCH ×4 (05:55→23:32)
[2022-08-05] MEDS: [UNRECOGNIZED DRUG - OTHER] SQ PRN ×2 (05:55→18:22)
[2022-08-05] MEDS: OMEPRAZOLE DR 20 MG GT SCH (05:55)
[2022-08-05 07:58] VITALS: BP 108/70
[2022-08-05] MEDS: FERROUS SULFATE - FOR SA ONLY 330 MG/7.5 ML UDC GT SCH ×3 (09:02→17:07)
[2022-08-05] MEDS: DOCUSATE SODIUM LIQ 100 MG/10 ML UDC GT SCH (09:02)
[2022-08-05] MEDS: METFORMIN 850 MG TABLET GT SCH ×2 (09:03→17:07)
[2022-08-05] MEDS: LEVETIRACETAM SOL (5 ML) 100 MG/ML UDC GT SCH ×2 (09:04→21:12)
[2022-08-05] MEDS: INDOMETHACIN 25 MG CAPSULE GT SCH ×2 (09:04→17:08)
[2022-08-05] MEDS: BETHANECHOL CHLORIDE (10 MG) 10 MG TABLET GT SCH ×3 (09:07→17:08)
[2022-08-05] MEDS: PROSTAT (PYXIS) 30 ML UDC GT SCH (09:07)
[2022-08-05] MEDS: BACLOFEN (10 MG) 10 MG TABLET GT SCH ×2 (09:07→21:12)
[2022-08-05] MEDS: CHLORHEXIDINE GLUCONATE 15 ML UDC MM SCH ×2 (09:08→21:12)
[2022-08-05] MEDS: HEPARIN SODIUM, PORCINE 5000 UNITS/1 ML VIAL SQ SCH ×2 (09:08→21:13)
[2022-08-05] MEDS: ZINC SULFATE 220 MG CAPSULE GT SCH (09:08)
[2022-08-05] MEDS: ASCORBIC ACID 500 MG TABLET GT SCH ×2 (09:08→17:08)
[2022-08-05] MEDS: NYSTATIN CREAM 15 GM TUBE TP SCH ×2 (09:09→21:13)
[2022-08-05] MEDS: VITS A AND D/WHITE PET/LANOLIN 5 GM PACKET TP SCH ×2 (09:09→21:13)
[2022-08-05] MEDS: HYDROGEN PEROXIDE 480 ML BOTTLE TP SCH ×2 (09:29→20:53)
[2022-08-05] MEDS: GLUCERNA 1.2 1,000 ML BOTTLE GT PRN (14:23)
--- NOTE | 2022-08-05 17:33 | NUR ---
RT NOTE Pt received on current vent settings per orders. Airway patent and secure. Q6 breathing Tx given with no adverse reaction noted. Back up trach and ambu bag at bedside. No SOB or respiratory noted at this time. Will continue to monitor for any changes.
[2022-08-05 19:23] VITALS: BP 116/80
[2022-08-05] MEDS: MULTIVIT W/MINERALS 1 TAB TABLET GT SCH (21:12)
[2022-08-05] MEDS: BASAGLAR SQ SCH (21:14)
[2022-08-05] MEDS: [UNRECOGNIZED DRUG - OTHER] SQ SCH (21:14)
[2022-08-06 00:28] VITALS: BP 124/80
[2022-08-06] MEDS: ALBUTEROL FS 2.5 MG/3 ML VIAL.NEB NEB SCH ×4 (00:37→18:44)
[2022-08-06] MEDS: IPRATROPIUM NEB FS 0.5 MG/2.5 ML AMPUL.NEB IH SCH ×4 (00:37→18:44)
[2022-08-06] MEDS: POLYVINYL ALCOHOL 15 ML BOTTLE OP SCH ×3 (05:23→18:22)
[2022-08-06] MEDS: OMEPRAZOLE DR 20 MG GT SCH (05:23)
[2022-08-06] MEDS: [UNRECOGNIZED DRUG - OTHER] SQ PRN ×2 (05:23→18:23)
[2022-08-06] MEDS: BLOOD SUGAR DIAGNOSTIC 1 EACH STRIP IN SCH ×2 (05:23→18:22)
[2022-08-06] MEDS: GLUCERNA 1.2 1,000 ML BOTTLE GT PRN ×2 (05:24→14:16)
[2022-08-06 08:09] VITALS: BP 143/73
[2022-08-06] MEDS: HYDROGEN PEROXIDE 480 ML BOTTLE TP SCH ×2 (09:00→20:29)
[2022-08-06] MEDS: METFORMIN 850 MG TABLET GT SCH ×2 (09:21→16:37)
[2022-08-06] MEDS: FERROUS SULFATE - FOR SA ONLY 330 MG/7.5 ML UDC GT SCH ×3 (09:21→16:37)
[2022-08-06] MEDS: DOCUSATE SODIUM LIQ 100 MG/10 ML UDC GT SCH (09:21)
[2022-08-06] MEDS: LEVETIRACETAM SOL (5 ML) 100 MG/ML UDC GT SCH ×2 (09:22→20:48)
[2022-08-06] MEDS: INDOMETHACIN 25 MG CAPSULE GT SCH ×2 (09:22→16:37)
[2022-08-06] MEDS: PROSTAT (PYXIS) 30 ML UDC GT SCH (09:23)
[2022-08-06] MEDS: BETHANECHOL CHLORIDE (10 MG) 10 MG TABLET GT SCH ×3 (09:23→16:37)
[2022-08-06] MEDS: BACLOFEN (10 MG) 10 MG TABLET GT SCH ×2 (09:23→20:48)
[2022-08-06] MEDS: CHLORHEXIDINE GLUCONATE 15 ML UDC MM SCH ×2 (09:24→20:48)
[2022-08-06] MEDS: ASCORBIC ACID 500 MG TABLET GT SCH ×2 (09:24→16:37)
[2022-08-06] MEDS: ZINC SULFATE 220 MG CAPSULE GT SCH (09:24)
[2022-08-06] MEDS: HEPARIN SODIUM, PORCINE 5000 UNITS/1 ML VIAL SQ SCH ×2 (09:25→20:48)
[2022-08-06] MEDS: VITS A AND D/WHITE PET/LANOLIN 5 GM PACKET TP SCH ×2 (09:26→20:48)
[2022-08-06] MEDS: NYSTATIN CREAM 15 GM TUBE TP SCH ×2 (09:26→20:48)
[2022-08-06 12:36] VITALS: BP 136/65
--- NOTE | 2022-08-06 14:37 | NUR ---
INTERDISCIPLINARY PLAN OF CARE CONFERENCE took place today. The patients sisterTosin [phone] did not participate in phone conference. Dr. Alvarez and Interdisciplinary team discussed the plan of care in detail. Current orders as well as treatments and medications were reviewed. Per pharmacy recommendation CBC/BMP on Tuesday.
[2022-08-06 20:21] VITALS: BP 117/61
[2022-08-06] MEDS: MULTIVIT W/MINERALS 1 TAB TABLET GT SCH (20:48)
[2022-08-06] MEDS: [UNRECOGNIZED DRUG - OTHER] SQ SCH (21:11)
[2022-08-06] MEDS: BASAGLAR SQ SCH (21:11)
[2022-08-06] MEDS: ACETAMINOPHEN 650 MG/20 ML UDC- SA PATIENTS-PAIN ONLY GT PRN (21:16)
[2022-08-07] MEDS: ALBUTEROL FS 2.5 MG/3 ML VIAL.NEB NEB SCH ×4 (00:37→20:05)
[2022-08-07] MEDS: IPRATROPIUM NEB FS 0.5 MG/2.5 ML AMPUL.NEB IH SCH ×4 (00:37→20:05)
[2022-08-07 00:54] VITALS: BP 110/72
[2022-08-07] MEDS: POLYVINYL ALCOHOL 15 ML BOTTLE OP SCH ×5 (00:54→23:56)
[2022-08-07] MEDS: OMEPRAZOLE DR 20 MG GT SCH (05:41)
[2022-08-07] MEDS: BLOOD SUGAR DIAGNOSTIC 1 EACH STRIP IN SCH ×2 (05:41→17:35)
[2022-08-07] MEDS: [UNRECOGNIZED DRUG - OTHER] SQ PRN ×2 (05:42→17:35)
[2022-08-07 07:48] VITALS: BP 104/69
[2022-08-07] MEDS: DOCUSATE SODIUM LIQ 100 MG/10 ML UDC GT SCH (08:27)
[2022-08-07] MEDS: FERROUS SULFATE - FOR SA ONLY 330 MG/7.5 ML UDC GT SCH ×3 (08:28→16:22)
[2022-08-07] MEDS: METFORMIN 850 MG TABLET GT SCH ×2 (08:29→16:22)
[2022-08-07] MEDS: INDOMETHACIN 25 MG CAPSULE GT SCH ×2 (08:30→16:22)
[2022-08-07] MEDS: LEVETIRACETAM SOL (5 ML) 100 MG/ML UDC GT SCH ×2 (08:32→20:18)
[2022-08-07] MEDS: BETHANECHOL CHLORIDE (10 MG) 10 MG TABLET GT SCH ×3 (08:32→16:22)
[2022-08-07] MEDS: BACLOFEN (10 MG) 10 MG TABLET GT SCH ×2 (08:32→20:18)
[2022-08-07] MEDS: ASCORBIC ACID 500 MG TABLET GT SCH ×2 (08:33→16:22)
[2022-08-07] MEDS: PROSTAT (PYXIS) 30 ML UDC GT SCH (08:33)
[2022-08-07] MEDS: ZINC SULFATE 220 MG CAPSULE GT SCH (08:34)
[2022-08-07] MEDS: VITS A AND D/WHITE PET/LANOLIN 5 GM PACKET TP SCH ×2 (08:35→20:19)
[2022-08-07] MEDS: NYSTATIN CREAM 15 GM TUBE TP SCH ×2 (09:43→20:18)
[2022-08-07] MEDS: CHLORHEXIDINE GLUCONATE 15 ML UDC MM SCH ×2 (09:43→20:18)
[2022-08-07] MEDS: HEPARIN SODIUM, PORCINE 5000 UNITS/1 ML VIAL SQ SCH ×2 (09:44→20:18)
[2022-08-07] MEDS: HYDROGEN PEROXIDE 480 ML BOTTLE TP SCH ×2 (09:47→21:05)
[2022-08-07 13:10] VITALS: BP 116/72
[2022-08-07] MEDS: GLUCERNA 1.2 1,000 ML BOTTLE GT PRN (14:43)
[2022-08-07 20:12] VITALS: BP 101/69
[2022-08-07] MEDS: MULTIVIT W/MINERALS 1 TAB TABLET GT SCH (20:18)
[2022-08-07] MEDS: BASAGLAR SQ SCH (21:01)
[2022-08-07] MEDS: [UNRECOGNIZED DRUG - OTHER] SQ SCH (21:01)
[2022-08-08] MEDS: ALBUTEROL FS 2.5 MG/3 ML VIAL.NEB NEB SCH ×4 (01:44→20:15)
[2022-08-08] MEDS: IPRATROPIUM NEB FS 0.5 MG/2.5 ML AMPUL.NEB IH SCH ×4 (01:44→20:15)
[2022-08-08] MEDS: BLOOD SUGAR DIAGNOSTIC 1 EACH STRIP IN SCH ×2 (05:32→17:14)
[2022-08-08] MEDS: OMEPRAZOLE DR 20 MG GT SCH (05:32)
[2022-08-08] MEDS: POLYVINYL ALCOHOL 15 ML BOTTLE OP SCH ×4 (05:32→23:55)
[2022-08-08] MEDS: [UNRECOGNIZED DRUG - OTHER] SQ PRN ×2 (05:32→17:15)
[2022-08-08 07:53] VITALS: BP 113/70
[2022-08-08] MEDS: HYDROGEN PEROXIDE 480 ML BOTTLE TP SCH ×2 (08:05→21:14)
[2022-08-08] MEDS: PROSTAT (PYXIS) 30 ML UDC GT SCH (08:46)
[2022-08-08] MEDS: ZINC SULFATE 220 MG CAPSULE GT SCH (08:46)
[2022-08-08] MEDS: BETHANECHOL CHLORIDE (10 MG) 10 MG TABLET GT SCH ×3 (08:46→16:40)
[2022-08-08] MEDS: DOCUSATE SODIUM LIQ 100 MG/10 ML UDC GT SCH (08:46)
[2022-08-08] MEDS: CHLORHEXIDINE GLUCONATE 15 ML UDC MM SCH ×2 (08:46→20:40)
[2022-08-08] MEDS: INDOMETHACIN 25 MG CAPSULE GT SCH ×2 (08:46→16:40)
[2022-08-08] MEDS: LEVETIRACETAM SOL (5 ML) 100 MG/ML UDC GT SCH ×2 (08:46→20:40)
[2022-08-08] MEDS: VITS A AND D/WHITE PET/LANOLIN 5 GM PACKET TP SCH ×2 (08:46→20:41)
[2022-08-08] MEDS: BACLOFEN (10 MG) 10 MG TABLET GT SCH ×2 (08:46→20:40)
[2022-08-08] MEDS: FERROUS SULFATE - FOR SA ONLY 330 MG/7.5 ML UDC GT SCH ×3 (08:46→16:40)
[2022-08-08] MEDS: ASCORBIC ACID 500 MG TABLET GT SCH ×2 (08:46→16:40)
[2022-08-08] MEDS: HEPARIN SODIUM, PORCINE 5000 UNITS/1 ML VIAL SQ SCH ×2 (08:46→20:40)
[2022-08-08] MEDS: METFORMIN 850 MG TABLET GT SCH ×2 (08:46→16:40)
[2022-08-08] MEDS: NYSTATIN CREAM 15 GM TUBE TP SCH ×2 (08:46→20:40)
[2022-08-08] MEDS: GLUCERNA 1.2 1,000 ML BOTTLE GT PRN (15:30)
--- NOTE | 2022-08-08 16:38 | NUR ---
RECEIVED PATIENT ON MD ORDERED VENT SETTINGS. HAS A TRACH SHILEY 6 XLT CUFFED. AIRWAY PATENT AND SECURE. HHN TXS TUTU WELL WITH NO ADVERSE REACTION NOTED. AMBU BAG AND EMERGENCY TRACH AT THE BEDSIDE. VENT PLUGGED INTO RED OUTLET. ALARMS SET AND AUDIBLE. SMALL YELLOW THICK SECRETIONS NOTED.
[2022-08-08 20:00] VITALS: BP 113/65
[2022-08-08] MEDS: MULTIVIT W/MINERALS 1 TAB TABLET GT SCH (20:40)
[2022-08-08] MEDS: [UNRECOGNIZED DRUG - OTHER] SQ SCH (21:16)
[2022-08-08] MEDS: BASAGLAR SQ SCH (21:16)
[2022-08-09] MEDS: IPRATROPIUM NEB FS 0.5 MG/2.5 ML AMPUL.NEB IH SCH ×4 (01:36→19:53)
[2022-08-09] MEDS: ALBUTEROL FS 2.5 MG/3 ML VIAL.NEB NEB SCH ×4 (01:36→19:53)
[2022-08-09] MEDS: OMEPRAZOLE DR 20 MG GT SCH (05:08)
[2022-08-09] MEDS: POLYVINYL ALCOHOL 15 ML BOTTLE OP SCH ×4 (05:08→23:33)
[2022-08-09] MEDS: BLOOD SUGAR DIAGNOSTIC 1 EACH STRIP IN SCH ×2 (05:08→17:19)
[2022-08-09] MEDS: [UNRECOGNIZED DRUG - OTHER] SQ PRN ×2 (05:09→17:21)
[2022-08-09 07:31] LABS: CALCIUM, SERUM 9.5 mg/dL (8.5-10.1); POTASSIUM 4.7 mmol/L (3.5-5.1)
[2022-08-09 07:40] LABS: HEMATOCRIT 24 % (33-45); HEMOGLOBIN 8.1 g/dL (11.5-14.8); MEAN CORPUSCULAR HGB CONC 35 g/dl (31.0-36.0); MEAN CORPUSCULAR VOLUME 88 fL (82-100); PLATELET COUNT (AUTO) 489 K/uL (150-450); RED BLOOD CELL COUNT(AUTO) 2.66 MIL/uL (4.0-5.2); WHITE BLOOD COUNT (AUTO) 6.4 K/uL (4.3-11.0)
[2022-08-09 08:06] LABS: BAND % (MANUAL) 2 % (0.0-5.0); EOSINOPHILS % (MANUAL) 7 % (0-4); LYMPHOCYTES % (MANUAL) 31 % (16-48); MONOCYTES % (MANUAL) 23 % (0-11.0); NEUTROPHILS % (MANUAL) 37 (42-76)
[2022-08-09] MEDS: BETHANECHOL CHLORIDE (10 MG) 10 MG TABLET GT SCH ×3 (08:39→16:51)
[2022-08-09] MEDS: ZINC SULFATE 220 MG CAPSULE GT SCH (08:39)
[2022-08-09] MEDS: INDOMETHACIN 25 MG CAPSULE GT SCH ×2 (08:39→16:51)
[2022-08-09] MEDS: METFORMIN 850 MG TABLET GT SCH ×2 (08:39→16:51)
[2022-08-09] MEDS: CHLORHEXIDINE GLUCONATE 15 ML UDC MM SCH ×2 (08:39→21:58)
[2022-08-09] MEDS: HEPARIN SODIUM, PORCINE 5000 UNITS/1 ML VIAL SQ SCH ×2 (08:39→21:58)
[2022-08-09] MEDS: BACLOFEN (10 MG) 10 MG TABLET GT SCH ×2 (08:39→21:58)
[2022-08-09] MEDS: ASCORBIC ACID 500 MG TABLET GT SCH ×2 (08:39→16:51)
[2022-08-09] MEDS: DOCUSATE SODIUM LIQ 100 MG/10 ML UDC GT SCH (08:39)
[2022-08-09] MEDS: LEVETIRACETAM SOL (5 ML) 100 MG/ML UDC GT SCH ×2 (08:39→21:58)
[2022-08-09] MEDS: PROSTAT (PYXIS) 30 ML UDC GT SCH (08:39)
[2022-08-09] MEDS: FERROUS SULFATE - FOR SA ONLY 330 MG/7.5 ML UDC GT SCH ×3 (08:39→16:51)
[2022-08-09] MEDS: NYSTATIN CREAM 15 GM TUBE TP SCH ×2 (08:40→21:58)
[2022-08-09] MEDS: VITS A AND D/WHITE PET/LANOLIN 5 GM PACKET TP SCH ×2 (08:40→21:58)
[2022-08-09] MEDS: HYDROGEN PEROXIDE 480 ML BOTTLE TP SCH ×2 (09:23→21:04)
[2022-08-09 10:01] VITALS: BP 108/82
[2022-08-09] MEDS: GLUCERNA 1.2 1,000 ML BOTTLE GT PRN (14:48)
--- NOTE | 2022-08-09 17:18 | NUR ---
RT NOTE Pt. received on trach with current vent settings and tolerated well. Vent plugged into red outlet. Sx. patient 2x + prn. No SOB or respiratory distress noted. Tx. given with no adverse reactions noted. Ambu bag and back up trach is at the bed side. Trach care done. Will keep monitor the pt.
--- NOTE | 2022-08-09 17:47 | NUR ---
Relayed lab results to Dr Dsouza. No new order.
[2022-08-09 20:00] VITALS: BP 120/71
[2022-08-09] MEDS: MULTIVIT W/MINERALS 1 TAB TABLET GT SCH (21:58)
[2022-08-09] MEDS: BASAGLAR SQ SCH (21:59)
[2022-08-09] MEDS: [UNRECOGNIZED DRUG - OTHER] SQ SCH (21:59)
[2022-08-10] MEDS: ALBUTEROL FS 2.5 MG/3 ML VIAL.NEB NEB SCH ×4 (01:41→19:56)
[2022-08-10] MEDS: IPRATROPIUM NEB FS 0.5 MG/2.5 ML AMPUL.NEB IH SCH ×4 (01:41→19:56)
[2022-08-10] MEDS: POLYVINYL ALCOHOL 15 ML BOTTLE OP SCH ×4 (05:44→23:41)
[2022-08-10] MEDS: BLOOD SUGAR DIAGNOSTIC 1 EACH STRIP IN SCH ×2 (05:44→17:20)
[2022-08-10] MEDS: OMEPRAZOLE DR 20 MG GT SCH (05:44)
[2022-08-10] MEDS: [UNRECOGNIZED DRUG - OTHER] SQ PRN ×2 (05:45→17:21)
[2022-08-10 08:00] VITALS: BP 116/72
[2022-08-10] MEDS: DOCUSATE SODIUM LIQ 100 MG/10 ML UDC GT SCH (08:24)
[2022-08-10] MEDS: FERROUS SULFATE - FOR SA ONLY 330 MG/7.5 ML UDC GT SCH ×3 (08:24→16:08)
[2022-08-10] MEDS: INDOMETHACIN 25 MG CAPSULE GT SCH ×2 (08:24→16:08)
[2022-08-10] MEDS: METFORMIN 850 MG TABLET GT SCH ×2 (08:24→16:08)
[2022-08-10] MEDS: BACLOFEN (10 MG) 10 MG TABLET GT SCH ×2 (08:25→20:53)
[2022-08-10] MEDS: PROSTAT (PYXIS) 30 ML UDC GT SCH (08:25)
[2022-08-10] MEDS: ASCORBIC ACID 500 MG TABLET GT SCH ×2 (08:25→16:08)
[2022-08-10] MEDS: HEPARIN SODIUM, PORCINE 5000 UNITS/1 ML VIAL SQ SCH ×2 (08:25→20:53)
[2022-08-10] MEDS: LEVETIRACETAM SOL (5 ML) 100 MG/ML UDC GT SCH ×2 (08:25→20:53)
[2022-08-10] MEDS: CHLORHEXIDINE GLUCONATE 15 ML UDC MM SCH ×2 (08:25→20:53)
[2022-08-10] MEDS: BETHANECHOL CHLORIDE (10 MG) 10 MG TABLET GT SCH ×3 (08:25→16:08)
[2022-08-10] MEDS: NYSTATIN CREAM 15 GM TUBE TP SCH ×2 (08:26→20:53)
[2022-08-10] MEDS: VITS A AND D/WHITE PET/LANOLIN 5 GM PACKET TP SCH ×2 (08:26→20:53)
[2022-08-10] MEDS: HYDROGEN PEROXIDE 480 ML BOTTLE TP SCH ×2 (09:19→21:14)
[2022-08-10] MEDS: ZINC SULFATE 220 MG CAPSULE GT SCH (09:28)
[2022-08-10 10:14] VITALS: BP 116/72
[2022-08-10] MEDS: GLUCERNA 1.2 1,000 ML BOTTLE GT PRN (11:08)
[2022-08-10 12:00] VITALS: BP 120/77
[2022-08-10 19:17] VITALS: BP 115/72
[2022-08-10] MEDS: MULTIVIT W/MINERALS 1 TAB TABLET GT SCH (20:53)
[2022-08-10] MEDS: BASAGLAR SQ SCH (22:11)
[2022-08-10] MEDS: [UNRECOGNIZED DRUG - OTHER] SQ SCH (22:11)
[2022-08-11] MEDS: IPRATROPIUM NEB FS 0.5 MG/2.5 ML AMPUL.NEB IH SCH ×4 (01:37→20:09)
[2022-08-11] MEDS: ALBUTEROL FS 2.5 MG/3 ML VIAL.NEB NEB SCH ×4 (01:37→20:09)
[2022-08-11] MEDS: BLOOD SUGAR DIAGNOSTIC 1 EACH STRIP IN SCH ×2 (05:53→17:40)
[2022-08-11] MEDS: POLYVINYL ALCOHOL 15 ML BOTTLE OP SCH ×3 (05:53→17:40)
[2022-08-11] MEDS: [UNRECOGNIZED DRUG - OTHER] SQ PRN (05:53)
[2022-08-11] MEDS: OMEPRAZOLE DR 20 MG GT SCH (05:53)
--- NOTE | 2022-08-11 06:06 | NUR ---
RT Patient remains stable on continuous ventilator support throughout the shift, no respiratory distress noted. Trach tube midline and patent, will continue to monitor. Addendum: 08/11/22 at 0606 by EDNA JUNIOR RT Amended: Links added.
[2022-08-11 07:45] VITALS: BP 133/70
--- NOTE | 2022-08-11 07:53 | NUR ---
RT NOTE Received patient on current vent settings. No sob or resp. distress noted. Trach patent secure and in place. Suctioned q2 and prn. Alarms on and audible. Tx tolerated well.
[2022-08-11] MEDS: HEPARIN SODIUM, PORCINE 5000 UNITS/1 ML VIAL SQ SCH ×2 (09:00→21:26)
[2022-08-11] MEDS: CHLORHEXIDINE GLUCONATE 15 ML UDC MM SCH ×2 (09:00→21:25)
[2022-08-11] MEDS: METFORMIN 850 MG TABLET GT SCH ×2 (09:00→17:40)
[2022-08-11] MEDS: LEVETIRACETAM SOL (5 ML) 100 MG/ML UDC GT SCH ×2 (09:00→21:25)
[2022-08-11] MEDS: NYSTATIN CREAM 15 GM TUBE TP SCH ×2 (09:00→21:26)
[2022-08-11] MEDS: FERROUS SULFATE - FOR SA ONLY 330 MG/7.5 ML UDC GT SCH ×3 (09:00→17:40)
[2022-08-11] MEDS: BACLOFEN (10 MG) 10 MG TABLET GT SCH ×2 (09:00→21:25)
[2022-08-11] MEDS: DOCUSATE SODIUM LIQ 100 MG/10 ML UDC GT SCH (09:00)
[2022-08-11] MEDS: VITS A AND D/WHITE PET/LANOLIN 5 GM PACKET TP SCH ×2 (09:00→21:26)
[2022-08-11] MEDS: INDOMETHACIN 25 MG CAPSULE GT SCH ×2 (09:00→17:40)
[2022-08-11] MEDS: ASCORBIC ACID 500 MG TABLET GT SCH ×2 (09:00→17:40)
[2022-08-11] MEDS: ZINC SULFATE 220 MG CAPSULE GT SCH (09:00)
[2022-08-11] MEDS: PROSTAT (PYXIS) 30 ML UDC GT SCH (09:00)
[2022-08-11] MEDS: BETHANECHOL CHLORIDE (10 MG) 10 MG TABLET GT SCH ×3 (09:00→17:40)
[2022-08-11] MEDS: HYDROGEN PEROXIDE 480 ML BOTTLE TP SCH ×2 (09:28→20:09)
--- NOTE | 2022-08-11 11:12 | NUR ---
RT NOTE Monthly trach tube change done. Minimal bleeding noted. No sob or resp. distress noted. RT Juvenal helped with trach tube change. ASHKAN Mays notified. Addendum: 08/11/22 at 1113 by SHAUNNA OLIVARES RT Amended: Links added.
[2022-08-11 16:07] VITALS: BP 128/71
[2022-08-11 19:30] VITALS: BP 110/77
--- NOTE | 2022-08-11 20:10 | NUR ---
PATIENT RECEIVED TRACH ON VENT WITH SETTINGS OF AC 12, 450 Vt, 30%, +5. SX DONE , LAP REGULATOR DONE BREATHING TX GIVEN WITH NO ADVERSE REACTIONS NOTED. AMBU BAG AT BEDSIDE. VENT ALARM AUDIBLE AND VISIBLE. VENT PLUGGED INTO RED OUTLET. NO RESPIRATORY DISTRESS NOTED , WILL CONTINUE TO MONITOR T/O SHIFT.
[2022-08-11] MEDS: MULTIVIT W/MINERALS 1 TAB TABLET GT SCH (21:25)
[2022-08-11] MEDS: BASAGLAR SQ SCH (21:27)
[2022-08-11] MEDS: [UNRECOGNIZED DRUG - OTHER] SQ SCH (21:27)
[2022-08-12] MEDS: GLUCERNA 1.2 1,000 ML BOTTLE GT PRN ×2 (00:18→18:27)
[2022-08-12] MEDS: POLYVINYL ALCOHOL 15 ML BOTTLE OP SCH ×4 (00:18→18:26)
[2022-08-12 00:40] VITALS: BP 113/79
[2022-08-12] MEDS: ALBUTEROL FS 2.5 MG/3 ML VIAL.NEB NEB SCH ×4 (01:44→20:05)
[2022-08-12] MEDS: IPRATROPIUM NEB FS 0.5 MG/2.5 ML AMPUL.NEB IH SCH ×4 (01:44→20:05)
[2022-08-12] MEDS: BLOOD SUGAR DIAGNOSTIC 1 EACH STRIP IN SCH ×2 (05:51→18:26)
[2022-08-12] MEDS: OMEPRAZOLE DR 20 MG GT SCH (05:51)
[2022-08-12] MEDS: [UNRECOGNIZED DRUG - OTHER] SQ PRN ×2 (05:51→18:27)
[2022-08-12 07:23] VITALS: BP 121/73
[2022-08-12] MEDS: HYDROGEN PEROXIDE 480 ML BOTTLE TP SCH ×2 (08:44→20:06)
[2022-08-12] MEDS: FERROUS SULFATE - FOR SA ONLY 330 MG/7.5 ML UDC GT SCH ×3 (09:01→16:12)
[2022-08-12] MEDS: DOCUSATE SODIUM LIQ 100 MG/10 ML UDC GT SCH (09:01)
[2022-08-12] MEDS: METFORMIN 850 MG TABLET GT SCH ×2 (09:01→16:12)
[2022-08-12] MEDS: LEVETIRACETAM SOL (5 ML) 100 MG/ML UDC GT SCH ×2 (09:02→21:26)
[2022-08-12] MEDS: ASCORBIC ACID 500 MG TABLET GT SCH ×2 (09:02→16:13)
[2022-08-12] MEDS: PROSTAT (PYXIS) 30 ML UDC GT SCH (09:02)
[2022-08-12] MEDS: BETHANECHOL CHLORIDE (10 MG) 10 MG TABLET GT SCH ×3 (09:02→16:13)
[2022-08-12] MEDS: ZINC SULFATE 220 MG CAPSULE GT SCH (09:02)
[2022-08-12] MEDS: CHLORHEXIDINE GLUCONATE 15 ML UDC MM SCH ×2 (09:02→21:26)
[2022-08-12] MEDS: INDOMETHACIN 25 MG CAPSULE GT SCH ×2 (09:02→16:13)
[2022-08-12] MEDS: BACLOFEN (10 MG) 10 MG TABLET GT SCH ×2 (09:02→21:26)
[2022-08-12] MEDS: VITS A AND D/WHITE PET/LANOLIN 5 GM PACKET TP SCH ×2 (09:05→21:26)
[2022-08-12] MEDS: HEPARIN SODIUM, PORCINE 5000 UNITS/1 ML VIAL SQ SCH ×2 (09:05→21:26)
[2022-08-12] MEDS: NYSTATIN CREAM 15 GM TUBE TP SCH ×2 (09:05→21:26)
[2022-08-12 12:27] VITALS: BP 105/72
[2022-08-12 19:40] VITALS: BP 123/84
[2022-08-12] MEDS: MULTIVIT W/MINERALS 1 TAB TABLET GT SCH (21:26)
[2022-08-12] MEDS: BASAGLAR SQ SCH (21:27)
[2022-08-12] MEDS: [UNRECOGNIZED DRUG - OTHER] SQ SCH (21:27)
[2022-08-13] MEDS: POLYVINYL ALCOHOL 15 ML BOTTLE OP SCH ×5 (00:17→23:34)
[2022-08-13] MEDS: IPRATROPIUM NEB FS 0.5 MG/2.5 ML AMPUL.NEB IH SCH ×4 (01:25→19:05)
[2022-08-13] MEDS: ALBUTEROL FS 2.5 MG/3 ML VIAL.NEB NEB SCH ×4 (01:25→19:05)
[2022-08-13] MEDS: [UNRECOGNIZED DRUG - OTHER] SQ PRN ×2 (06:03→18:22)
[2022-08-13] MEDS: OMEPRAZOLE DR 20 MG GT SCH (06:03)
[2022-08-13] MEDS: BLOOD SUGAR DIAGNOSTIC 1 EACH STRIP IN SCH ×2 (06:03→18:22)
[2022-08-13 07:21] VITALS: BP 126/76
[2022-08-13] MEDS: HYDROGEN PEROXIDE 480 ML BOTTLE TP SCH ×2 (07:30→19:05)
[2022-08-13] MEDS: DOCUSATE SODIUM LIQ 100 MG/10 ML UDC GT SCH (09:16)
[2022-08-13] MEDS: FERROUS SULFATE - FOR SA ONLY 330 MG/7.5 ML UDC GT SCH ×3 (09:16→17:01)
[2022-08-13] MEDS: METFORMIN 850 MG TABLET GT SCH ×2 (09:16→17:01)
[2022-08-13] MEDS: BACLOFEN (10 MG) 10 MG TABLET GT SCH ×2 (09:17→21:29)
[2022-08-13] MEDS: INDOMETHACIN 25 MG CAPSULE GT SCH ×2 (09:17→17:02)
[2022-08-13] MEDS: PROSTAT (PYXIS) 30 ML UDC GT SCH (09:17)
[2022-08-13] MEDS: BETHANECHOL CHLORIDE (10 MG) 10 MG TABLET GT SCH ×3 (09:17→17:02)
[2022-08-13] MEDS: LEVETIRACETAM SOL (5 ML) 100 MG/ML UDC GT SCH ×2 (09:17→21:29)
[2022-08-13] MEDS: CHLORHEXIDINE GLUCONATE 15 ML UDC MM SCH ×2 (09:18→21:29)
[2022-08-13] MEDS: ASCORBIC ACID 500 MG TABLET GT SCH ×2 (09:18→17:02)
[2022-08-13] MEDS: ZINC SULFATE 220 MG CAPSULE GT SCH (09:18)
[2022-08-13] MEDS: HEPARIN SODIUM, PORCINE 5000 UNITS/1 ML VIAL SQ SCH ×2 (09:23→21:29)
[2022-08-13] MEDS: VITS A AND D/WHITE PET/LANOLIN 5 GM PACKET TP SCH ×2 (09:23→21:29)
[2022-08-13] MEDS: NYSTATIN CREAM 15 GM TUBE TP SCH ×2 (09:23→21:29)
[2022-08-13 14:42] VITALS: BP 120/75
--- NOTE | 2022-08-13 16:20 | NUR ---
Seen and examined by Dr. Dsouza, no new order given.
[2022-08-13 19:00] VITALS: BP 114/79
[2022-08-13] MEDS: MULTIVIT W/MINERALS 1 TAB TABLET GT SCH (21:29)
[2022-08-13] MEDS: [UNRECOGNIZED DRUG - OTHER] SQ SCH (21:30)
[2022-08-13] MEDS: BASAGLAR SQ SCH (21:30)
[2022-08-13] MEDS: GLUCERNA 1.2 1,000 ML BOTTLE GT PRN (22:00)
[2022-08-14] MEDS: ALBUTEROL FS 2.5 MG/3 ML VIAL.NEB NEB SCH ×4 (01:34→18:51)
[2022-08-14] MEDS: IPRATROPIUM NEB FS 0.5 MG/2.5 ML AMPUL.NEB IH SCH ×4 (01:34→18:51)
--- NOTE | 2022-08-14 04:38 | NUR ---
Pt recvd on current vent settings and karli well. Trach is patent and secured, neb tx given and karli well. suction PRN. trach care done. vent is plugged into red outlet with alarms on and audible. Spare trach and ambu bag at bedside. Spo2 >98% maintained. No SOB or respiratory distress noted throughout shift
[2022-08-14] MEDS: [UNRECOGNIZED DRUG - OTHER] SQ PRN ×2 (05:53→17:57)
[2022-08-14] MEDS: BLOOD SUGAR DIAGNOSTIC 1 EACH STRIP IN SCH ×2 (05:53→17:57)
[2022-08-14] MEDS: POLYVINYL ALCOHOL 15 ML BOTTLE OP SCH ×4 (05:53→23:06)
[2022-08-14] MEDS: OMEPRAZOLE DR 20 MG GT SCH (05:53)
[2022-08-14 07:15] VITALS: BP 128/74
[2022-08-14] MEDS: HYDROGEN PEROXIDE 480 ML BOTTLE TP SCH ×2 (07:47→20:38)
[2022-08-14] MEDS: METFORMIN 850 MG TABLET GT SCH ×2 (08:53→17:22)
[2022-08-14] MEDS: FERROUS SULFATE - FOR SA ONLY 330 MG/7.5 ML UDC GT SCH ×3 (08:53→17:22)
[2022-08-14] MEDS: DOCUSATE SODIUM LIQ 100 MG/10 ML UDC GT SCH (08:53)
[2022-08-14] MEDS: INDOMETHACIN 25 MG CAPSULE GT SCH ×2 (08:54→17:22)
[2022-08-14] MEDS: ASCORBIC ACID 500 MG TABLET GT SCH ×2 (08:54→17:22)
[2022-08-14] MEDS: ZINC SULFATE 220 MG CAPSULE GT SCH (08:54)
[2022-08-14] MEDS: CHLORHEXIDINE GLUCONATE 15 ML UDC MM SCH ×2 (08:54→21:46)
[2022-08-14] MEDS: BETHANECHOL CHLORIDE (10 MG) 10 MG TABLET GT SCH ×3 (08:54→17:22)
[2022-08-14] MEDS: LEVETIRACETAM SOL (5 ML) 100 MG/ML UDC GT SCH ×2 (08:54→21:46)
[2022-08-14] MEDS: BACLOFEN (10 MG) 10 MG TABLET GT SCH ×2 (08:54→21:46)
[2022-08-14] MEDS: PROSTAT (PYXIS) 30 ML UDC GT SCH (08:54)
[2022-08-14] MEDS: HEPARIN SODIUM, PORCINE 5000 UNITS/1 ML VIAL SQ SCH ×2 (08:56→21:46)
[2022-08-14] MEDS: VITS A AND D/WHITE PET/LANOLIN 5 GM PACKET TP SCH ×2 (08:57→21:46)
[2022-08-14] MEDS: NYSTATIN CREAM 15 GM TUBE TP SCH (09:00)
[2022-08-14 12:09] VITALS: BP 114/69
--- NOTE | 2022-08-14 13:52 | NUR ---
Resident Monthly Note: Resident on activity program was seen and sensory stimulation activities was provided. Hand Massage, Provocative In Pearls Book on Tape, Grooming. The Page is Right, Family Feud and Deal or no Deal tv shows. [place] Classical Music and Easy listing. Resident will continue to received these activities as needed.
[2022-08-14] MEDS: GLUCERNA 1.2 1,000 ML BOTTLE GT PRN (18:26)
[2022-08-14 19:17] VITALS: BP 118/75
[2022-08-14] MEDS: MULTIVIT W/MINERALS 1 TAB TABLET GT SCH (21:46)
[2022-08-14] MEDS: BASAGLAR SQ SCH (21:47)
[2022-08-14] MEDS: [UNRECOGNIZED DRUG - OTHER] SQ SCH (21:47)
[2022-08-15] MEDS: IPRATROPIUM NEB FS 0.5 MG/2.5 ML AMPUL.NEB IH SCH ×4 (00:51→19:21)
[2022-08-15] MEDS: ALBUTEROL FS 2.5 MG/3 ML VIAL.NEB NEB SCH ×4 (00:51→19:21)
[2022-08-15] MEDS: [UNRECOGNIZED DRUG - OTHER] SQ PRN ×2 (05:16→17:28)
[2022-08-15] MEDS: OMEPRAZOLE DR 20 MG GT SCH (05:16)
[2022-08-15] MEDS: POLYVINYL ALCOHOL 15 ML BOTTLE OP SCH ×3 (05:16→17:27)
[2022-08-15] MEDS: BLOOD SUGAR DIAGNOSTIC 1 EACH STRIP IN SCH ×2 (05:16→17:27)
[2022-08-15 07:16] VITALS: BP 117/71
[2022-08-15] MEDS: HYDROGEN PEROXIDE 480 ML BOTTLE TP SCH ×2 (08:08→20:18)
[2022-08-15] MEDS: PROSTAT (PYXIS) 30 ML UDC GT SCH (09:00)
[2022-08-15] MEDS: BETHANECHOL CHLORIDE (10 MG) 10 MG TABLET GT SCH ×3 (09:00→16:56)
[2022-08-15] MEDS: CHLORHEXIDINE GLUCONATE 15 ML UDC MM SCH ×2 (09:00→20:33)
[2022-08-15] MEDS: ASCORBIC ACID 500 MG TABLET GT SCH ×2 (09:00→16:56)
[2022-08-15] MEDS: VITS A AND D/WHITE PET/LANOLIN 5 GM PACKET TP SCH ×2 (09:00→20:34)
[2022-08-15] MEDS: METFORMIN 850 MG TABLET GT SCH ×2 (09:00→16:56)
[2022-08-15] MEDS: INDOMETHACIN 25 MG CAPSULE GT SCH ×2 (09:00→16:56)
[2022-08-15] MEDS: ZINC SULFATE 220 MG CAPSULE GT SCH (09:00)
[2022-08-15] MEDS: BACLOFEN (10 MG) 10 MG TABLET GT SCH ×2 (09:00→20:33)
[2022-08-15] MEDS: FERROUS SULFATE - FOR SA ONLY 330 MG/7.5 ML UDC GT SCH ×3 (09:00→16:56)
[2022-08-15] MEDS: LEVETIRACETAM SOL (5 ML) 100 MG/ML UDC GT SCH ×2 (09:00→20:33)
[2022-08-15] MEDS: DOCUSATE SODIUM LIQ 100 MG/10 ML UDC GT SCH (09:00)
[2022-08-15] MEDS: HEPARIN SODIUM, PORCINE 5000 UNITS/1 ML VIAL SQ SCH ×2 (09:00→20:34)
[2022-08-15 12:09] VITALS: BP 124/79
[2022-08-15 19:50] VITALS: BP 123/80
[2022-08-15] MEDS: MULTIVIT W/MINERALS 1 TAB TABLET GT SCH (20:33)
[2022-08-15] MEDS: BASAGLAR SQ SCH (23:00)
[2022-08-15] MEDS: [UNRECOGNIZED DRUG - OTHER] SQ SCH (23:00)
[2022-08-16 00:31] VITALS: BP 104/72
[2022-08-16] MEDS: IPRATROPIUM NEB FS 0.5 MG/2.5 ML AMPUL.NEB IH SCH ×4 (02:01→19:51)
[2022-08-16] MEDS: ALBUTEROL FS 2.5 MG/3 ML VIAL.NEB NEB SCH ×4 (02:01→19:51)
[2022-08-16] MEDS: POLYVINYL ALCOHOL 15 ML BOTTLE OP SCH ×5 (05:07→23:57)
[2022-08-16] MEDS: BLOOD SUGAR DIAGNOSTIC 1 EACH STRIP IN SCH ×2 (05:07→17:25)
[2022-08-16] MEDS: OMEPRAZOLE DR 20 MG GT SCH (05:07)
[2022-08-16] MEDS: [UNRECOGNIZED DRUG - OTHER] SQ PRN ×2 (05:08→17:26)
[2022-08-16 07:24] VITALS: BP 121/81
[2022-08-16] MEDS: HYDROGEN PEROXIDE 480 ML BOTTLE TP SCH ×2 (09:05→21:24)
[2022-08-16] MEDS: BETHANECHOL CHLORIDE (10 MG) 10 MG TABLET GT SCH ×3 (09:45→16:52)
[2022-08-16] MEDS: CHLORHEXIDINE GLUCONATE 15 ML UDC MM SCH ×2 (09:45→21:47)
[2022-08-16] MEDS: PROSTAT (PYXIS) 30 ML UDC GT SCH (09:45)
[2022-08-16] MEDS: INDOMETHACIN 25 MG CAPSULE GT SCH ×2 (09:45→16:52)
[2022-08-16] MEDS: LEVETIRACETAM SOL (5 ML) 100 MG/ML UDC GT SCH ×2 (09:45→21:47)
[2022-08-16] MEDS: ZINC SULFATE 220 MG CAPSULE GT SCH (09:45)
[2022-08-16] MEDS: ASCORBIC ACID 500 MG TABLET GT SCH ×2 (09:45→16:52)
[2022-08-16] MEDS: DOCUSATE SODIUM LIQ 100 MG/10 ML UDC GT SCH (09:45)
[2022-08-16] MEDS: VITS A AND D/WHITE PET/LANOLIN 5 GM PACKET TP SCH ×2 (09:45→21:47)
[2022-08-16] MEDS: FERROUS SULFATE - FOR SA ONLY 330 MG/7.5 ML UDC GT SCH ×3 (09:45→16:52)
[2022-08-16] MEDS: METFORMIN 850 MG TABLET GT SCH ×2 (09:45→16:52)
[2022-08-16] MEDS: HEPARIN SODIUM, PORCINE 5000 UNITS/1 ML VIAL SQ SCH ×2 (09:45→21:47)
[2022-08-16] MEDS: BACLOFEN (10 MG) 10 MG TABLET GT SCH ×2 (09:45→21:47)
[2022-08-16 11:47] VITALS: BP 108/67
[2022-08-16 20:17] VITALS: BP 122/79
[2022-08-16] MEDS: MULTIVIT W/MINERALS 1 TAB TABLET GT SCH (21:47)
[2022-08-16] MEDS: BASAGLAR SQ SCH (21:48)
[2022-08-16] MEDS: [UNRECOGNIZED DRUG - OTHER] SQ SCH (21:48)
[2022-08-16 22:19] VITALS: BP_SYST 122; BP_SYST 150; BP_DIAS 74; BP_DIAS 79
[2022-08-17] MEDS: ALBUTEROL FS 2.5 MG/3 ML VIAL.NEB NEB SCH ×4 (01:39→19:59)
[2022-08-17] MEDS: IPRATROPIUM NEB FS 0.5 MG/2.5 ML AMPUL.NEB IH SCH ×4 (01:39→19:59)
[2022-08-17] MEDS: OMEPRAZOLE DR 20 MG GT SCH (05:25)
[2022-08-17] MEDS: GLUCERNA 1.2 1,000 ML BOTTLE GT PRN (05:25)
[2022-08-17] MEDS: POLYVINYL ALCOHOL 15 ML BOTTLE OP SCH ×4 (05:25→23:20)
[2022-08-17] MEDS: BLOOD SUGAR DIAGNOSTIC 1 EACH STRIP IN SCH ×2 (06:10→17:24)
[2022-08-17] MEDS: [UNRECOGNIZED DRUG - OTHER] SQ PRN ×2 (06:11→17:25)
[2022-08-17] MEDS: DOCUSATE SODIUM LIQ 100 MG/10 ML UDC GT SCH (08:32)
[2022-08-17] MEDS: LEVETIRACETAM SOL (5 ML) 100 MG/ML UDC GT SCH ×2 (08:32→21:48)
[2022-08-17] MEDS: METFORMIN 850 MG TABLET GT SCH ×2 (08:32→17:15)
[2022-08-17] MEDS: INDOMETHACIN 25 MG CAPSULE GT SCH ×2 (08:32→17:15)
[2022-08-17] MEDS: FERROUS SULFATE - FOR SA ONLY 330 MG/7.5 ML UDC GT SCH ×3 (08:32→17:14)
[2022-08-17] MEDS: ASCORBIC ACID 500 MG TABLET GT SCH ×2 (08:33→17:15)
[2022-08-17] MEDS: BETHANECHOL CHLORIDE (10 MG) 10 MG TABLET GT SCH ×3 (08:33→17:15)
[2022-08-17] MEDS: BACLOFEN (10 MG) 10 MG TABLET GT SCH ×2 (08:33→21:48)
[2022-08-17] MEDS: PROSTAT (PYXIS) 30 ML UDC GT SCH (08:33)
[2022-08-17] MEDS: HEPARIN SODIUM, PORCINE 5000 UNITS/1 ML VIAL SQ SCH ×2 (08:33→21:48)
[2022-08-17] MEDS: CHLORHEXIDINE GLUCONATE 15 ML UDC MM SCH ×2 (08:33→21:48)
[2022-08-17] MEDS: ZINC SULFATE 220 MG CAPSULE GT SCH (08:33)
[2022-08-17] MEDS: VITS A AND D/WHITE PET/LANOLIN 5 GM PACKET TP SCH ×2 (08:33→21:49)
[2022-08-17] MEDS: HYDROGEN PEROXIDE 480 ML BOTTLE TP SCH ×2 (09:32→21:07)
--- NOTE | 2022-08-17 11:30 | NUR ---
RT NOTE Received patient on current vent settings. No sob or resp. distress noted. Trach patent secure and in place. Suctioned q2 and prn. Tx tolerated well.
[2022-08-17 20:00] VITALS: BP 117/70
[2022-08-17] MEDS: MULTIVIT W/MINERALS 1 TAB TABLET GT SCH (21:48)
[2022-08-17] MEDS: BASAGLAR SQ SCH (21:49)
[2022-08-17] MEDS: [UNRECOGNIZED DRUG - OTHER] SQ SCH (21:49)
[2022-08-18] MEDS: GLUCERNA 1.2 1,000 ML BOTTLE GT PRN (00:39)
[2022-08-18] MEDS: ALBUTEROL FS 2.5 MG/3 ML VIAL.NEB NEB SCH ×4 (01:42→20:20)
[2022-08-18] MEDS: IPRATROPIUM NEB FS 0.5 MG/2.5 ML AMPUL.NEB IH SCH ×4 (01:42→20:20)
[2022-08-18] MEDS: BLOOD SUGAR DIAGNOSTIC 1 EACH STRIP IN SCH ×2 (05:44→17:02)
[2022-08-18] MEDS: OMEPRAZOLE DR 20 MG GT SCH (05:44)
[2022-08-18] MEDS: POLYVINYL ALCOHOL 15 ML BOTTLE OP SCH ×4 (05:45→23:15)
[2022-08-18] MEDS: [UNRECOGNIZED DRUG - OTHER] SQ PRN ×2 (05:47→17:13)
[2022-08-18 07:29] VITALS: BP 128/81
--- NOTE | 2022-08-18 09:05 | NUR ---
Seen and examined by Dr. Dsouza, no new order given.
[2022-08-18] MEDS: PROSTAT (PYXIS) 30 ML UDC GT SCH (09:41)
[2022-08-18] MEDS: BETHANECHOL CHLORIDE (10 MG) 10 MG TABLET GT SCH ×3 (09:41→17:02)
[2022-08-18] MEDS: DOCUSATE SODIUM LIQ 100 MG/10 ML UDC GT SCH (09:41)
[2022-08-18] MEDS: INDOMETHACIN 25 MG CAPSULE GT SCH ×2 (09:41→17:02)
[2022-08-18] MEDS: METFORMIN 850 MG TABLET GT SCH ×2 (09:41→17:02)
[2022-08-18] MEDS: ZINC SULFATE 220 MG CAPSULE GT SCH (09:41)
[2022-08-18] MEDS: CHLORHEXIDINE GLUCONATE 15 ML UDC MM SCH ×2 (09:41→21:05)
[2022-08-18] MEDS: BACLOFEN (10 MG) 10 MG TABLET GT SCH ×2 (09:41→21:05)
[2022-08-18] MEDS: LEVETIRACETAM SOL (5 ML) 100 MG/ML UDC GT SCH ×2 (09:41→21:05)
[2022-08-18] MEDS: FERROUS SULFATE - FOR SA ONLY 330 MG/7.5 ML UDC GT SCH ×3 (09:41→17:02)
[2022-08-18] MEDS: ASCORBIC ACID 500 MG TABLET GT SCH ×2 (09:41→17:02)
[2022-08-18] MEDS: HEPARIN SODIUM, PORCINE 5000 UNITS/1 ML VIAL SQ SCH ×2 (09:42→21:06)
[2022-08-18] MEDS: HYDROGEN PEROXIDE 480 ML BOTTLE TP SCH ×2 (09:42→20:20)
[2022-08-18] MEDS: VITS A AND D/WHITE PET/LANOLIN 5 GM PACKET TP SCH ×2 (09:42→21:06)
[2022-08-18 13:08] VITALS: BP 119/72
[2022-08-18 20:00] VITALS: BP 113/73
[2022-08-18] MEDS: MULTIVIT W/MINERALS 1 TAB TABLET GT SCH (21:05)
[2022-08-18] MEDS: [UNRECOGNIZED DRUG - OTHER] SQ SCH (21:07)
[2022-08-18] MEDS: BASAGLAR SQ SCH (21:07)
[2022-08-19] MEDS: ALBUTEROL FS 2.5 MG/3 ML VIAL.NEB NEB SCH ×4 (02:21→20:03)
[2022-08-19] MEDS: IPRATROPIUM NEB FS 0.5 MG/2.5 ML AMPUL.NEB IH SCH ×4 (02:21→20:03)
[2022-08-19] MEDS: OMEPRAZOLE DR 20 MG GT SCH (05:49)
[2022-08-19] MEDS: POLYVINYL ALCOHOL 15 ML BOTTLE OP SCH ×3 (05:49→18:47)
[2022-08-19] MEDS: BLOOD SUGAR DIAGNOSTIC 1 EACH STRIP IN SCH ×2 (05:49→18:46)
[2022-08-19] MEDS: [UNRECOGNIZED DRUG - OTHER] SQ PRN ×2 (05:50→18:55)
[2022-08-19 07:25] VITALS: BP 118/72
[2022-08-19] MEDS: LEVETIRACETAM SOL (5 ML) 100 MG/ML UDC GT SCH ×2 (09:10→20:40)
[2022-08-19] MEDS: FERROUS SULFATE - FOR SA ONLY 330 MG/7.5 ML UDC GT SCH ×3 (09:10→17:01)
[2022-08-19] MEDS: DOCUSATE SODIUM LIQ 100 MG/10 ML UDC GT SCH (09:10)
[2022-08-19] MEDS: BACLOFEN (10 MG) 10 MG TABLET GT SCH ×2 (09:10→20:40)
[2022-08-19] MEDS: INDOMETHACIN 25 MG CAPSULE GT SCH ×2 (09:10→17:01)
[2022-08-19] MEDS: CHLORHEXIDINE GLUCONATE 15 ML UDC MM SCH ×2 (09:10→20:40)
[2022-08-19] MEDS: METFORMIN 850 MG TABLET GT SCH ×2 (09:10→17:01)
[2022-08-19] MEDS: BETHANECHOL CHLORIDE (10 MG) 10 MG TABLET GT SCH ×3 (09:10→17:01)
[2022-08-19] MEDS: PROSTAT (PYXIS) 30 ML UDC GT SCH (09:10)
[2022-08-19] MEDS: ZINC SULFATE 220 MG CAPSULE GT SCH (09:10)
[2022-08-19] MEDS: HYDROGEN PEROXIDE 480 ML BOTTLE TP SCH ×2 (09:10→20:03)
[2022-08-19] MEDS: ASCORBIC ACID 500 MG TABLET GT SCH ×2 (09:10→17:01)
[2022-08-19] MEDS: HEPARIN SODIUM, PORCINE 5000 UNITS/1 ML VIAL SQ SCH ×2 (09:10→20:41)
[2022-08-19] MEDS: VITS A AND D/WHITE PET/LANOLIN 5 GM PACKET TP SCH ×2 (09:11→20:41)
[2022-08-19 11:50] VITALS: BP 106/71
[2022-08-19 20:04] VITALS: BP 116/70
[2022-08-19] MEDS: MULTIVIT W/MINERALS 1 TAB TABLET GT SCH (20:40)
[2022-08-19] MEDS: BASAGLAR SQ SCH (21:11)
[2022-08-19] MEDS: [UNRECOGNIZED DRUG - OTHER] SQ SCH (21:11)
[2022-08-20 00:18] VITALS: BP 124/68
[2022-08-20] MEDS: POLYVINYL ALCOHOL 15 ML BOTTLE OP SCH ×4 (00:52→17:22)
[2022-08-20] MEDS: ALBUTEROL FS 2.5 MG/3 ML VIAL.NEB NEB SCH ×4 (02:12→18:39)
[2022-08-20] MEDS: IPRATROPIUM NEB FS 0.5 MG/2.5 ML AMPUL.NEB IH SCH ×4 (02:12→18:39)
[2022-08-20] MEDS: [UNRECOGNIZED DRUG - OTHER] SQ PRN ×2 (05:36→17:30)
[2022-08-20] MEDS: BLOOD SUGAR DIAGNOSTIC 1 EACH STRIP IN SCH ×2 (05:36→17:22)
[2022-08-20] MEDS: OMEPRAZOLE DR 20 MG GT SCH (05:36)
[2022-08-20] MEDS: GLUCERNA 1.2 1,000 ML BOTTLE GT PRN (06:38)
[2022-08-20 07:39] VITALS: BP 119/73
[2022-08-20] MEDS: HYDROGEN PEROXIDE 480 ML BOTTLE TP SCH ×2 (09:22→21:14)
[2022-08-20] MEDS: ASCORBIC ACID 500 MG TABLET GT SCH ×2 (09:29→17:22)
[2022-08-20] MEDS: METFORMIN 850 MG TABLET GT SCH ×2 (09:29→17:21)
[2022-08-20] MEDS: VITS A AND D/WHITE PET/LANOLIN 5 GM PACKET TP SCH ×2 (09:29→21:03)
[2022-08-20] MEDS: FERROUS SULFATE - FOR SA ONLY 330 MG/7.5 ML UDC GT SCH ×3 (09:29→17:21)
[2022-08-20] MEDS: LEVETIRACETAM SOL (5 ML) 100 MG/ML UDC GT SCH ×2 (09:29→21:03)
[2022-08-20] MEDS: CHLORHEXIDINE GLUCONATE 15 ML UDC MM SCH ×2 (09:29→21:03)
[2022-08-20] MEDS: BETHANECHOL CHLORIDE (10 MG) 10 MG TABLET GT SCH ×3 (09:29→17:22)
[2022-08-20] MEDS: ZINC SULFATE 220 MG CAPSULE GT SCH (09:29)
[2022-08-20] MEDS: BACLOFEN (10 MG) 10 MG TABLET GT SCH ×2 (09:29→21:03)
[2022-08-20] MEDS: INDOMETHACIN 25 MG CAPSULE GT SCH ×2 (09:29→17:21)
[2022-08-20] MEDS: HEPARIN SODIUM, PORCINE 5000 UNITS/1 ML VIAL SQ SCH ×2 (09:29→21:03)
[2022-08-20] MEDS: DOCUSATE SODIUM LIQ 100 MG/10 ML UDC GT SCH (09:29)
[2022-08-20] MEDS: PROSTAT (PYXIS) 30 ML UDC GT SCH (09:29)
[2022-08-20 11:31] VITALS: BP 126/72
[2022-08-20] MEDS: MULTIVIT W/MINERALS 1 TAB TABLET GT SCH (21:03)
[2022-08-20 21:07] VITALS: BP 114/73
[2022-08-20] MEDS: BASAGLAR SQ SCH (21:33)
[2022-08-20] MEDS: [UNRECOGNIZED DRUG - OTHER] SQ SCH (21:33)
[2022-08-21] MEDS: POLYVINYL ALCOHOL 15 ML BOTTLE OP SCH ×4 (00:19→18:12)
[2022-08-21] MEDS: IPRATROPIUM NEB FS 0.5 MG/2.5 ML AMPUL.NEB IH SCH ×4 (01:00→19:47)
[2022-08-21] MEDS: ALBUTEROL FS 2.5 MG/3 ML VIAL.NEB NEB SCH ×4 (01:00→19:47)
[2022-08-21] MEDS: BLOOD SUGAR DIAGNOSTIC 1 EACH STRIP IN SCH ×2 (05:46→18:12)
[2022-08-21] MEDS: OMEPRAZOLE DR 20 MG GT SCH (05:46)
[2022-08-21] MEDS: [UNRECOGNIZED DRUG - OTHER] SQ PRN ×2 (05:46→18:14)
[2022-08-21 07:38] VITALS: BP 129/68
[2022-08-21] MEDS: HYDROGEN PEROXIDE 480 ML BOTTLE TP SCH ×2 (09:08→21:04)
[2022-08-21] MEDS: PROSTAT (PYXIS) 30 ML UDC GT SCH (09:49)
[2022-08-21] MEDS: ZINC SULFATE 220 MG CAPSULE GT SCH (09:49)
[2022-08-21] MEDS: ASCORBIC ACID 500 MG TABLET GT SCH ×2 (09:49→16:07)
[2022-08-21] MEDS: CHLORHEXIDINE GLUCONATE 15 ML UDC MM SCH ×2 (09:49→20:51)
[2022-08-21] MEDS: INDOMETHACIN 25 MG CAPSULE GT SCH ×2 (09:49→16:07)
[2022-08-21] MEDS: DOCUSATE SODIUM LIQ 100 MG/10 ML UDC GT SCH (09:49)
[2022-08-21] MEDS: VITS A AND D/WHITE PET/LANOLIN 5 GM PACKET TP SCH ×2 (09:49→20:51)
[2022-08-21] MEDS: HEPARIN SODIUM, PORCINE 5000 UNITS/1 ML VIAL SQ SCH ×2 (09:49→20:51)
[2022-08-21] MEDS: METFORMIN 850 MG TABLET GT SCH ×2 (09:49→16:07)
[2022-08-21] MEDS: BETHANECHOL CHLORIDE (10 MG) 10 MG TABLET GT SCH ×3 (09:49→16:07)
[2022-08-21] MEDS: FERROUS SULFATE - FOR SA ONLY 330 MG/7.5 ML UDC GT SCH ×3 (09:49→16:07)
[2022-08-21] MEDS: LEVETIRACETAM SOL (5 ML) 100 MG/ML UDC GT SCH ×2 (09:49→20:51)
[2022-08-21] MEDS: BACLOFEN (10 MG) 10 MG TABLET GT SCH ×2 (09:49→20:51)
[2022-08-21 11:40] VITALS: BP 137/81
[2022-08-21] MEDS: GLUCERNA 1.2 1,000 ML BOTTLE GT PRN (12:31)
[2022-08-21] MEDS: MAGNESIUM HYDROXIDE 30 ML UDC GT PRN (18:27)
[2022-08-21 19:00] VITALS: BP 138/74
[2022-08-21] MEDS: MULTIVIT W/MINERALS 1 TAB TABLET GT SCH (20:51)
[2022-08-21] MEDS: [UNRECOGNIZED DRUG - OTHER] SQ SCH (21:39)
[2022-08-21] MEDS: BASAGLAR SQ SCH (21:39)
[2022-08-22] MEDS: POLYVINYL ALCOHOL 15 ML BOTTLE OP SCH ×4 (00:21→17:45)
[2022-08-22] MEDS: IPRATROPIUM NEB FS 0.5 MG/2.5 ML AMPUL.NEB IH SCH ×4 (01:38→19:55)
[2022-08-22] MEDS: ALBUTEROL FS 2.5 MG/3 ML VIAL.NEB NEB SCH ×4 (01:38→19:55)
[2022-08-22] MEDS: [UNRECOGNIZED DRUG - OTHER] SQ PRN ×2 (05:25→17:46)
[2022-08-22] MEDS: BLOOD SUGAR DIAGNOSTIC 1 EACH STRIP IN SCH ×2 (05:25→17:45)
[2022-08-22] MEDS: OMEPRAZOLE DR 20 MG GT SCH (05:25)
[2022-08-22 08:21] VITALS: BP 121/72
[2022-08-22] MEDS: DOCUSATE SODIUM LIQ 100 MG/10 ML UDC GT SCH (09:00)
[2022-08-22] MEDS: BACLOFEN (10 MG) 10 MG TABLET GT SCH ×2 (09:00→20:05)
[2022-08-22] MEDS: ASCORBIC ACID 500 MG TABLET GT SCH ×2 (09:00→17:45)
[2022-08-22] MEDS: FERROUS SULFATE - FOR SA ONLY 330 MG/7.5 ML UDC GT SCH ×3 (09:00→17:45)
[2022-08-22] MEDS: CHLORHEXIDINE GLUCONATE 15 ML UDC MM SCH ×2 (09:00→20:05)
[2022-08-22] MEDS: METFORMIN 850 MG TABLET GT SCH ×2 (09:00→17:45)
[2022-08-22] MEDS: VITS A AND D/WHITE PET/LANOLIN 5 GM PACKET TP SCH ×2 (09:00→20:06)
[2022-08-22] MEDS: INDOMETHACIN 25 MG CAPSULE GT SCH ×2 (09:00→17:45)
[2022-08-22] MEDS: BETHANECHOL CHLORIDE (10 MG) 10 MG TABLET GT SCH ×3 (09:00→17:45)
[2022-08-22] MEDS: PROSTAT (PYXIS) 30 ML UDC GT SCH (09:00)
[2022-08-22] MEDS: LEVETIRACETAM SOL (5 ML) 100 MG/ML UDC GT SCH ×2 (09:00→20:05)
[2022-08-22] MEDS: ZINC SULFATE 220 MG CAPSULE GT SCH (09:00)
[2022-08-22] MEDS: HEPARIN SODIUM, PORCINE 5000 UNITS/1 ML VIAL SQ SCH ×2 (09:00→20:05)
[2022-08-22] MEDS: HYDROGEN PEROXIDE 480 ML BOTTLE TP SCH ×2 (09:50→21:15)
[2022-08-22] MEDS: MULTIVIT W/MINERALS 1 TAB TABLET GT SCH (20:05)
[2022-08-22] MEDS: [UNRECOGNIZED DRUG - OTHER] SQ SCH (21:08)
[2022-08-22] MEDS: BASAGLAR SQ SCH (21:08)
[2022-08-22 21:28] VITALS: BP 120/75
[2022-08-23] MEDS: GLUCERNA 1.2 1,000 ML BOTTLE GT PRN
[2022-08-23] MEDS: IPRATROPIUM NEB FS 0.5 MG/2.5 ML AMPUL.NEB IH SCH ×4 (01:42→19:55)
[2022-08-23] MEDS: ALBUTEROL FS 2.5 MG/3 ML VIAL.NEB NEB SCH ×4 (01:42→19:55)
[2022-08-23] MEDS: BLOOD SUGAR DIAGNOSTIC 1 EACH STRIP IN SCH ×2 (05:15→17:27)
[2022-08-23] MEDS: OMEPRAZOLE DR 20 MG GT SCH (05:15)
[2022-08-23] MEDS: POLYVINYL ALCOHOL 15 ML BOTTLE OP SCH ×4 (05:16→17:27)
[2022-08-23 08:14] VITALS: BP 110/73
[2022-08-23] MEDS: VITS A AND D/WHITE PET/LANOLIN 5 GM PACKET TP SCH ×2 (09:00→21:00)
[2022-08-23] MEDS: LEVETIRACETAM SOL (5 ML) 100 MG/ML UDC GT SCH ×2 (09:00→21:00)
[2022-08-23] MEDS: ZINC SULFATE 220 MG CAPSULE GT SCH (09:00)
[2022-08-23] MEDS: PROSTAT (PYXIS) 30 ML UDC GT SCH (09:00)
[2022-08-23] MEDS: INDOMETHACIN 25 MG CAPSULE GT SCH ×2 (09:00→17:27)
[2022-08-23] MEDS: CHLORHEXIDINE GLUCONATE 15 ML UDC MM SCH ×2 (09:00→21:00)
[2022-08-23] MEDS: BACLOFEN (10 MG) 10 MG TABLET GT SCH ×2 (09:00→21:00)
[2022-08-23] MEDS: FERROUS SULFATE - FOR SA ONLY 330 MG/7.5 ML UDC GT SCH ×3 (09:00→17:27)
[2022-08-23] MEDS: METFORMIN 850 MG TABLET GT SCH ×2 (09:00→17:27)
[2022-08-23] MEDS: ASCORBIC ACID 500 MG TABLET GT SCH ×2 (09:00→17:27)
[2022-08-23] MEDS: BETHANECHOL CHLORIDE (10 MG) 10 MG TABLET GT SCH ×3 (09:00→17:27)
[2022-08-23] MEDS: HEPARIN SODIUM, PORCINE 5000 UNITS/1 ML VIAL SQ SCH ×2 (09:00→21:00)
[2022-08-23] MEDS: DOCUSATE SODIUM LIQ 100 MG/10 ML UDC GT SCH (09:00)
[2022-08-23] MEDS: HYDROGEN PEROXIDE 480 ML BOTTLE TP SCH ×2 (09:20→21:07)
[2022-08-23] MEDS: [UNRECOGNIZED DRUG - OTHER] SQ PRN (17:27)
[2022-08-23 20:05] VITALS: BP 125/78
[2022-08-23] MEDS: MULTIVIT W/MINERALS 1 TAB TABLET GT SCH (21:00)
[2022-08-23] MEDS: [UNRECOGNIZED DRUG - OTHER] SQ SCH (22:36)
[2022-08-23] MEDS: BASAGLAR SQ SCH (22:36)
[2022-08-24] MEDS: ALBUTEROL FS 2.5 MG/3 ML VIAL.NEB NEB SCH ×4 (01:53→19:56)
[2022-08-24] MEDS: IPRATROPIUM NEB FS 0.5 MG/2.5 ML AMPUL.NEB IH SCH ×4 (01:53→19:56)
[2022-08-24] MEDS: OMEPRAZOLE DR 20 MG GT SCH (06:06)
[2022-08-24] MEDS: POLYVINYL ALCOHOL 15 ML BOTTLE OP SCH ×4 (06:06→17:27)
[2022-08-24] MEDS: BLOOD SUGAR DIAGNOSTIC 1 EACH STRIP IN SCH ×2 (06:06→17:27)
[2022-08-24 07:18] VITALS: BP 119/73
[2022-08-24] MEDS: GLUCERNA 1.2 1,000 ML BOTTLE GT PRN ×2 (09:00→21:23)
[2022-08-24] MEDS: LEVETIRACETAM SOL (5 ML) 100 MG/ML UDC GT SCH ×2 (09:06→21:18)
[2022-08-24] MEDS: FERROUS SULFATE - FOR SA ONLY 330 MG/7.5 ML UDC GT SCH ×3 (09:06→17:27)
[2022-08-24] MEDS: CHLORHEXIDINE GLUCONATE 15 ML UDC MM SCH ×2 (09:06→21:18)
[2022-08-24] MEDS: INDOMETHACIN 25 MG CAPSULE GT SCH ×2 (09:06→17:27)
[2022-08-24] MEDS: ZINC SULFATE 220 MG CAPSULE GT SCH (09:06)
[2022-08-24] MEDS: PROSTAT (PYXIS) 30 ML UDC GT SCH (09:06)
[2022-08-24] MEDS: BETHANECHOL CHLORIDE (10 MG) 10 MG TABLET GT SCH ×3 (09:06→17:27)
[2022-08-24] MEDS: ASCORBIC ACID 500 MG TABLET GT SCH ×2 (09:06→17:27)
[2022-08-24] MEDS: BACLOFEN (10 MG) 10 MG TABLET GT SCH ×2 (09:06→21:18)
[2022-08-24] MEDS: METFORMIN 850 MG TABLET GT SCH ×2 (09:06→17:27)
[2022-08-24] MEDS: DOCUSATE SODIUM LIQ 100 MG/10 ML UDC GT SCH (09:06)
[2022-08-24] MEDS: HEPARIN SODIUM, PORCINE 5000 UNITS/1 ML VIAL SQ SCH ×2 (09:07→21:18)
[2022-08-24] MEDS: VITS A AND D/WHITE PET/LANOLIN 5 GM PACKET TP SCH ×2 (09:07→21:18)
[2022-08-24 11:50] VITALS: BP 106/69
[2022-08-24] MEDS: HYDROGEN PEROXIDE 480 ML BOTTLE TP SCH ×2 (13:26→21:09)
--- NOTE | 2022-08-24 17:25 | NUR ---
RT NOTE Received patient on mechanical ventilator. No sob or resp. distress noted. Trach patent secure and in place. Suctioned q2 and prn. Alarms on and audible. Vent plugged into red outlet. Txs tolerated well.
[2022-08-24] MEDS: [UNRECOGNIZED DRUG - OTHER] SQ PRN (17:28)
[2022-08-24 20:24] VITALS: BP 120/77
[2022-08-24] MEDS: MULTIVIT W/MINERALS 1 TAB TABLET GT SCH (21:18)
[2022-08-24] MEDS: [UNRECOGNIZED DRUG - OTHER] SQ SCH (21:19)
[2022-08-24] MEDS: BASAGLAR SQ SCH (21:19)
[2022-08-25] MEDS: POLYVINYL ALCOHOL 15 ML BOTTLE OP SCH ×4 (00:08→17:11)
[2022-08-25 00:47] VITALS: BP 122/70
[2022-08-25] MEDS: ALBUTEROL FS 2.5 MG/3 ML VIAL.NEB NEB SCH ×4 (01:44→20:21)
[2022-08-25] MEDS: IPRATROPIUM NEB FS 0.5 MG/2.5 ML AMPUL.NEB IH SCH ×4 (01:44→20:21)
[2022-08-25] MEDS: BLOOD SUGAR DIAGNOSTIC 1 EACH STRIP IN SCH ×2 (05:31→17:57)
[2022-08-25] MEDS: OMEPRAZOLE DR 20 MG GT SCH (05:31)
[2022-08-25] MEDS: [UNRECOGNIZED DRUG - OTHER] SQ PRN ×2 (05:32→17:58)
[2022-08-25 07:24] VITALS: BP 112/66
[2022-08-25] MEDS: HYDROGEN PEROXIDE 480 ML BOTTLE TP SCH ×2 (08:34→20:21)
[2022-08-25] MEDS: PROSTAT (PYXIS) 30 ML UDC GT SCH (09:42)
[2022-08-25] MEDS: LEVETIRACETAM SOL (5 ML) 100 MG/ML UDC GT SCH ×2 (09:42→21:39)
[2022-08-25] MEDS: ZINC SULFATE 220 MG CAPSULE GT SCH (09:42)
[2022-08-25] MEDS: FERROUS SULFATE - FOR SA ONLY 330 MG/7.5 ML UDC GT SCH ×3 (09:42→17:11)
[2022-08-25] MEDS: BETHANECHOL CHLORIDE (10 MG) 10 MG TABLET GT SCH ×3 (09:42→17:11)
[2022-08-25] MEDS: DOCUSATE SODIUM LIQ 100 MG/10 ML UDC GT SCH (09:42)
[2022-08-25] MEDS: CHLORHEXIDINE GLUCONATE 15 ML UDC MM SCH ×2 (09:42→21:39)
[2022-08-25] MEDS: BACLOFEN (10 MG) 10 MG TABLET GT SCH ×2 (09:42→21:39)
[2022-08-25] MEDS: ASCORBIC ACID 500 MG TABLET GT SCH ×2 (09:42→17:11)
[2022-08-25] MEDS: METFORMIN 850 MG TABLET GT SCH ×2 (09:42→17:11)
[2022-08-25] MEDS: INDOMETHACIN 25 MG CAPSULE GT SCH ×2 (09:42→17:11)
[2022-08-25] MEDS: VITS A AND D/WHITE PET/LANOLIN 5 GM PACKET TP SCH ×2 (09:43→21:39)
[2022-08-25] MEDS: HEPARIN SODIUM, PORCINE 5000 UNITS/1 ML VIAL SQ SCH ×2 (09:43→21:39)
--- NOTE | 2022-08-25 11:01 | NUR ---
Seen and examined by Dr. Dsouza, no new order given at this time.
[2022-08-25 13:24] VITALS: BP 122/69
[2022-08-25 21:09] VITALS: BP 116/72
[2022-08-25] MEDS: MULTIVIT W/MINERALS 1 TAB TABLET GT SCH (21:39)
[2022-08-25] MEDS: [UNRECOGNIZED DRUG - OTHER] SQ SCH (21:56)
[2022-08-25] MEDS: BASAGLAR SQ SCH (21:56)
[2022-08-26] MEDS: POLYVINYL ALCOHOL 15 ML BOTTLE OP SCH ×4 (00:24→17:10)
[2022-08-26] MEDS: IPRATROPIUM NEB FS 0.5 MG/2.5 ML AMPUL.NEB IH SCH ×4 (01:58→19:58)
[2022-08-26] MEDS: ALBUTEROL FS 2.5 MG/3 ML VIAL.NEB NEB SCH ×4 (01:58→19:58)
[2022-08-26] MEDS: OMEPRAZOLE DR 20 MG GT SCH (05:39)
[2022-08-26] MEDS: BLOOD SUGAR DIAGNOSTIC 1 EACH STRIP IN SCH ×2 (05:39→18:02)
[2022-08-26] MEDS: [UNRECOGNIZED DRUG - OTHER] SQ PRN ×2 (05:41→18:03)
[2022-08-26] MEDS: GLUCERNA 1.2 1,000 ML BOTTLE GT PRN (05:44)
[2022-08-26 07:10] VITALS: BP 114/72
[2022-08-26] MEDS: HYDROGEN PEROXIDE 480 ML BOTTLE TP SCH ×2 (09:00→19:58)
[2022-08-26] MEDS: BACLOFEN (10 MG) 10 MG TABLET GT SCH ×2 (09:17→21:31)
[2022-08-26] MEDS: LEVETIRACETAM SOL (5 ML) 100 MG/ML UDC GT SCH ×2 (09:17→21:31)
[2022-08-26] MEDS: FERROUS SULFATE - FOR SA ONLY 330 MG/7.5 ML UDC GT SCH ×3 (09:17→17:10)
[2022-08-26] MEDS: CHLORHEXIDINE GLUCONATE 15 ML UDC MM SCH ×2 (09:17→21:31)
[2022-08-26] MEDS: ZINC SULFATE 220 MG CAPSULE GT SCH (09:17)
[2022-08-26] MEDS: PROSTAT (PYXIS) 30 ML UDC GT SCH (09:17)
[2022-08-26] MEDS: ASCORBIC ACID 500 MG TABLET GT SCH ×2 (09:17→17:10)
[2022-08-26] MEDS: DOCUSATE SODIUM LIQ 100 MG/10 ML UDC GT SCH (09:17)
[2022-08-26] MEDS: VITS A AND D/WHITE PET/LANOLIN 5 GM PACKET TP SCH ×2 (09:17→21:32)
[2022-08-26] MEDS: BETHANECHOL CHLORIDE (10 MG) 10 MG TABLET GT SCH ×3 (09:17→17:10)
[2022-08-26] MEDS: METFORMIN 850 MG TABLET GT SCH ×2 (09:17→17:10)
[2022-08-26] MEDS: HEPARIN SODIUM, PORCINE 5000 UNITS/1 ML VIAL SQ SCH ×2 (09:17→21:32)
[2022-08-26] MEDS: INDOMETHACIN 25 MG CAPSULE GT SCH ×2 (09:17→17:10)
[2022-08-26 12:10] VITALS: BP 119/78
[2022-08-26 18:48] VITALS: BP 114/67
[2022-08-26] MEDS: MULTIVIT W/MINERALS 1 TAB TABLET GT SCH (21:31)
[2022-08-26] MEDS: [UNRECOGNIZED DRUG - OTHER] SQ SCH (21:33)
[2022-08-26] MEDS: BASAGLAR SQ SCH (21:33)
[2022-08-27 00:13] VITALS: BP 108/67
[2022-08-27] MEDS: POLYVINYL ALCOHOL 15 ML BOTTLE OP SCH ×4 (00:32→18:44)
[2022-08-27] MEDS: IPRATROPIUM NEB FS 0.5 MG/2.5 ML AMPUL.NEB IH SCH ×4 (01:53→18:52)
[2022-08-27] MEDS: ALBUTEROL FS 2.5 MG/3 ML VIAL.NEB NEB SCH ×4 (01:53→18:52)
--- NOTE | 2022-08-27 04:44 | NUR ---
Pt recvd on ordered vent settings, trach is patent and secured. Neb tx given and pt karli well. No SOB or respiratory distress noted. Suction PRN. SPo2 >92% maintained. Trach care done. Vent is plugged into red outlet with alarms on and audible. Spare trach and ambu at bedside.
[2022-08-27] MEDS: OMEPRAZOLE DR 20 MG GT SCH (05:39)
[2022-08-27] MEDS: BLOOD SUGAR DIAGNOSTIC 1 EACH STRIP IN SCH ×2 (05:39→18:44)
[2022-08-27] MEDS: GLUCERNA 1.2 1,000 ML BOTTLE GT PRN (06:45)
[2022-08-27 08:13] VITALS: BP 134/73
[2022-08-27] MEDS: HYDROGEN PEROXIDE 480 ML BOTTLE TP SCH ×2 (09:32→20:14)
[2022-08-27] MEDS: DOCUSATE SODIUM LIQ 100 MG/10 ML UDC GT SCH (09:47)
[2022-08-27] MEDS: BETHANECHOL CHLORIDE (10 MG) 10 MG TABLET GT SCH ×3 (09:47→17:13)
[2022-08-27] MEDS: METFORMIN 850 MG TABLET GT SCH ×2 (09:47→17:13)
[2022-08-27] MEDS: ASCORBIC ACID 500 MG TABLET GT SCH ×2 (09:47→17:13)
[2022-08-27] MEDS: INDOMETHACIN 25 MG CAPSULE GT SCH ×2 (09:47→17:13)
[2022-08-27] MEDS: PROSTAT (PYXIS) 30 ML UDC GT SCH (09:47)
[2022-08-27] MEDS: LEVETIRACETAM SOL (5 ML) 100 MG/ML UDC GT SCH ×2 (09:47→21:06)
[2022-08-27] MEDS: FERROUS SULFATE - FOR SA ONLY 330 MG/7.5 ML UDC GT SCH ×3 (09:47→17:13)
[2022-08-27] MEDS: BACLOFEN (10 MG) 10 MG TABLET GT SCH ×2 (09:47→21:06)
[2022-08-27] MEDS: CHLORHEXIDINE GLUCONATE 15 ML UDC MM SCH ×2 (09:47→21:06)
[2022-08-27] MEDS: ZINC SULFATE 220 MG CAPSULE GT SCH (09:47)
[2022-08-27] MEDS: VITS A AND D/WHITE PET/LANOLIN 5 GM PACKET TP SCH ×2 (09:48→21:06)
[2022-08-27] MEDS: HEPARIN SODIUM, PORCINE 5000 UNITS/1 ML VIAL SQ SCH ×2 (09:48→21:06)
[2022-08-27 12:13] VITALS: BP 106/63
[2022-08-27] MEDS: [UNRECOGNIZED DRUG - OTHER] SQ PRN (18:44)
[2022-08-27 19:17] VITALS: BP 128/79
[2022-08-27] MEDS: MULTIVIT W/MINERALS 1 TAB TABLET GT SCH (21:06)
[2022-08-27] MEDS: [UNRECOGNIZED DRUG - OTHER] SQ SCH (21:21)
[2022-08-27] MEDS: BASAGLAR SQ SCH (21:21)
[2022-08-28] MEDS: POLYVINYL ALCOHOL 15 ML BOTTLE OP SCH ×4 (00:20→18:07)
[2022-08-28 01:06] VITALS: BP 114/79
[2022-08-28] MEDS: IPRATROPIUM NEB FS 0.5 MG/2.5 ML AMPUL.NEB IH SCH ×4 (01:53→19:30)
[2022-08-28] MEDS: ALBUTEROL FS 2.5 MG/3 ML VIAL.NEB NEB SCH ×4 (01:53→19:30)
[2022-08-28] MEDS: BLOOD SUGAR DIAGNOSTIC 1 EACH STRIP IN SCH ×2 (05:42→18:07)
[2022-08-28] MEDS: [UNRECOGNIZED DRUG - OTHER] SQ PRN ×2 (05:42→18:07)
[2022-08-28] MEDS: OMEPRAZOLE DR 20 MG GT SCH (05:42)
[2022-08-28 07:44] VITALS: BP 103/68
[2022-08-28] MEDS: PROSTAT (PYXIS) 30 ML UDC GT SCH (09:18)
[2022-08-28] MEDS: METFORMIN 850 MG TABLET GT SCH ×2 (09:18→16:30)
[2022-08-28] MEDS: CHLORHEXIDINE GLUCONATE 15 ML UDC MM SCH ×2 (09:18→20:37)
[2022-08-28] MEDS: LEVETIRACETAM SOL (5 ML) 100 MG/ML UDC GT SCH ×2 (09:18→20:37)
[2022-08-28] MEDS: ASCORBIC ACID 500 MG TABLET GT SCH ×2 (09:18→16:30)
[2022-08-28] MEDS: BETHANECHOL CHLORIDE (10 MG) 10 MG TABLET GT SCH ×3 (09:18→16:30)
[2022-08-28] MEDS: ZINC SULFATE 220 MG CAPSULE GT SCH (09:18)
[2022-08-28] MEDS: BACLOFEN (10 MG) 10 MG TABLET GT SCH ×2 (09:18→20:37)
[2022-08-28] MEDS: DOCUSATE SODIUM LIQ 100 MG/10 ML UDC GT SCH (09:18)
[2022-08-28] MEDS: INDOMETHACIN 25 MG CAPSULE GT SCH ×2 (09:18→16:30)
[2022-08-28] MEDS: FERROUS SULFATE - FOR SA ONLY 330 MG/7.5 ML UDC GT SCH ×3 (09:18→16:30)
[2022-08-28] MEDS: HEPARIN SODIUM, PORCINE 5000 UNITS/1 ML VIAL SQ SCH ×2 (09:19→20:43)
[2022-08-28] MEDS: VITS A AND D/WHITE PET/LANOLIN 5 GM PACKET TP SCH ×2 (09:19→20:38)
[2022-08-28] MEDS: HYDROGEN PEROXIDE 480 ML BOTTLE TP SCH ×2 (09:56→21:41)
[2022-08-28 12:20] VITALS: BP 110/65
[2022-08-28] MEDS: GLUCERNA 1.2 1,000 ML BOTTLE GT PRN (18:07)
[2022-08-28 19:51] VITALS: BP 129/78
[2022-08-28] MEDS: MULTIVIT W/MINERALS 1 TAB TABLET GT SCH (20:37)
[2022-08-28] MEDS: BASAGLAR SQ SCH (21:13)
[2022-08-28] MEDS: [UNRECOGNIZED DRUG - OTHER] SQ SCH (21:13)
[2022-08-29] MEDS: POLYVINYL ALCOHOL 15 ML BOTTLE OP SCH ×4 (00:18→18:11)
[2022-08-29] MEDS: IPRATROPIUM NEB FS 0.5 MG/2.5 ML AMPUL.NEB IH SCH ×4 (01:56→19:20)
[2022-08-29] MEDS: ALBUTEROL FS 2.5 MG/3 ML VIAL.NEB NEB SCH ×4 (01:56→19:20)
[2022-08-29] MEDS: OMEPRAZOLE DR 20 MG GT SCH (05:27)
[2022-08-29] MEDS: BLOOD SUGAR DIAGNOSTIC 1 EACH STRIP IN SCH ×2 (05:27→18:11)
[2022-08-29] MEDS: [UNRECOGNIZED DRUG - OTHER] SQ PRN ×2 (05:28→18:12)
[2022-08-29 07:56] VITALS: BP 112/83
[2022-08-29] MEDS: HYDROGEN PEROXIDE 480 ML BOTTLE TP SCH ×2 (08:06→21:23)
[2022-08-29] MEDS: CHLORHEXIDINE GLUCONATE 15 ML UDC MM SCH ×2 (09:29→20:54)
[2022-08-29] MEDS: BACLOFEN (10 MG) 10 MG TABLET GT SCH ×2 (09:29→20:54)
[2022-08-29] MEDS: ZINC SULFATE 220 MG CAPSULE GT SCH (09:29)
[2022-08-29] MEDS: FERROUS SULFATE - FOR SA ONLY 330 MG/7.5 ML UDC GT SCH ×3 (09:29→17:05)
[2022-08-29] MEDS: LEVETIRACETAM SOL (5 ML) 100 MG/ML UDC GT SCH ×2 (09:29→20:54)
[2022-08-29] MEDS: INDOMETHACIN 25 MG CAPSULE GT SCH ×2 (09:29→17:05)
[2022-08-29] MEDS: ASCORBIC ACID 500 MG TABLET GT SCH ×2 (09:29→17:05)
[2022-08-29] MEDS: PROSTAT (PYXIS) 30 ML UDC GT SCH (09:29)
[2022-08-29] MEDS: METFORMIN 850 MG TABLET GT SCH ×2 (09:29→17:05)
[2022-08-29] MEDS: BETHANECHOL CHLORIDE (10 MG) 10 MG TABLET GT SCH ×3 (09:29→17:05)
[2022-08-29] MEDS: DOCUSATE SODIUM LIQ 100 MG/10 ML UDC GT SCH (09:29)
[2022-08-29] MEDS: VITS A AND D/WHITE PET/LANOLIN 5 GM PACKET TP SCH ×2 (09:30→20:54)
[2022-08-29] MEDS: HEPARIN SODIUM, PORCINE 5000 UNITS/1 ML VIAL SQ SCH ×2 (09:30→20:54)
[2022-08-29 20:06] VITALS: BP 132/74
[2022-08-29] MEDS: MULTIVIT W/MINERALS 1 TAB TABLET GT SCH (20:54)
[2022-08-29] MEDS: BASAGLAR SQ SCH (21:10)
[2022-08-29] MEDS: [UNRECOGNIZED DRUG - OTHER] SQ SCH (21:10)
[2022-08-30] MEDS: POLYVINYL ALCOHOL 15 ML BOTTLE OP SCH ×4 (00:39→18:44)
[2022-08-30] MEDS: IPRATROPIUM NEB FS 0.5 MG/2.5 ML AMPUL.NEB IH SCH ×4 (02:26→20:16)
[2022-08-30] MEDS: ALBUTEROL FS 2.5 MG/3 ML VIAL.NEB NEB SCH ×4 (02:26→20:16)
[2022-08-30] MEDS: OMEPRAZOLE DR 20 MG GT SCH (05:29)
[2022-08-30] MEDS: [UNRECOGNIZED DRUG - OTHER] SQ PRN ×2 (05:29→18:46)
[2022-08-30] MEDS: BLOOD SUGAR DIAGNOSTIC 1 EACH STRIP IN SCH ×2 (05:29→18:44)
[2022-08-30 07:38] VITALS: BP 106/66
[2022-08-30] MEDS: ZINC SULFATE 220 MG CAPSULE GT SCH (09:00)
[2022-08-30] MEDS: PROSTAT (PYXIS) 30 ML UDC GT SCH (09:00)
[2022-08-30] MEDS: INDOMETHACIN 25 MG CAPSULE GT SCH ×2 (09:00→16:37)
[2022-08-30] MEDS: HEPARIN SODIUM, PORCINE 5000 UNITS/1 ML VIAL SQ SCH ×2 (09:00→21:11)
[2022-08-30] MEDS: BETHANECHOL CHLORIDE (10 MG) 10 MG TABLET GT SCH ×3 (09:00→16:37)
[2022-08-30] MEDS: CHLORHEXIDINE GLUCONATE 15 ML UDC MM SCH ×2 (09:00→21:18)
[2022-08-30] MEDS: VITS A AND D/WHITE PET/LANOLIN 5 GM PACKET TP SCH ×2 (09:00→21:11)
[2022-08-30] MEDS: ASCORBIC ACID 500 MG TABLET GT SCH ×2 (09:00→16:37)
[2022-08-30] MEDS: BACLOFEN (10 MG) 10 MG TABLET GT SCH ×2 (09:00→21:08)
[2022-08-30] MEDS: METFORMIN 850 MG TABLET GT SCH ×2 (09:00→16:37)
[2022-08-30] MEDS: DOCUSATE SODIUM LIQ 100 MG/10 ML UDC GT SCH (09:00)
[2022-08-30] MEDS: HYDROGEN PEROXIDE 480 ML BOTTLE TP SCH ×2 (09:00→21:27)
[2022-08-30] MEDS: LEVETIRACETAM SOL (5 ML) 100 MG/ML UDC GT SCH ×2 (09:00→21:07)
[2022-08-30] MEDS: FERROUS SULFATE - FOR SA ONLY 330 MG/7.5 ML UDC GT SCH ×3 (09:00→16:37)
--- NOTE | 2022-08-30 15:58 | NUR ---
Family Invite to IDT: SW called the pt.'s sister, Tosin Horvath [phone] inviting them to participate in 09/03/2022 IDT Meeting. However, Tosin stated she is working and unable to participate. Per Tosin she has no questions or concerns at this time. Noted.
[2022-08-30 20:00] VITALS: BP 126/76
[2022-08-30] MEDS: MULTIVIT W/MINERALS 1 TAB TABLET GT SCH (21:08)
[2022-08-30] MEDS: [UNRECOGNIZED DRUG - OTHER] SQ SCH (21:15)
[2022-08-30] MEDS: BASAGLAR SQ SCH (21:15)
[2022-08-31] MEDS: POLYVINYL ALCOHOL 15 ML BOTTLE OP SCH ×5 (00:53→23:38)
[2022-08-31] MEDS: ALBUTEROL FS 2.5 MG/3 ML VIAL.NEB NEB SCH ×4 (01:43→19:46)
[2022-08-31] MEDS: IPRATROPIUM NEB FS 0.5 MG/2.5 ML AMPUL.NEB IH SCH ×4 (01:43→19:46)
[2022-08-31] MEDS: OMEPRAZOLE DR 20 MG GT SCH (05:28)
[2022-08-31] MEDS: BLOOD SUGAR DIAGNOSTIC 1 EACH STRIP IN SCH ×2 (05:28→17:20)
[2022-08-31] MEDS: [UNRECOGNIZED DRUG - OTHER] SQ PRN ×2 (05:29→17:22)
[2022-08-31] MEDS: GLUCERNA 1.2 1,000 ML BOTTLE GT PRN (05:34)
--- NOTE | 2022-08-31 08:30 | NUR ---
Seen and examined by Dr. Alvarez, no new order given.
[2022-08-31 09:00] VITALS: BP 115/75
[2022-08-31] MEDS: HYDROGEN PEROXIDE 480 ML BOTTLE TP SCH ×2 (09:08→21:09)
[2022-08-31] MEDS: METFORMIN 850 MG TABLET GT SCH ×2 (09:40→17:20)
[2022-08-31] MEDS: FERROUS SULFATE - FOR SA ONLY 330 MG/7.5 ML UDC GT SCH ×3 (09:40→17:20)
[2022-08-31] MEDS: INDOMETHACIN 25 MG CAPSULE GT SCH ×2 (09:40→17:20)
[2022-08-31] MEDS: LEVETIRACETAM SOL (5 ML) 100 MG/ML UDC GT SCH ×2 (09:40→21:49)
[2022-08-31] MEDS: DOCUSATE SODIUM LIQ 100 MG/10 ML UDC GT SCH (09:40)
[2022-08-31] MEDS: PROSTAT (PYXIS) 30 ML UDC GT SCH (09:40)
[2022-08-31] MEDS: BACLOFEN (10 MG) 10 MG TABLET GT SCH ×2 (09:40→21:49)
[2022-08-31] MEDS: CHLORHEXIDINE GLUCONATE 15 ML UDC MM SCH ×2 (09:41→21:50)
[2022-08-31] MEDS: BETHANECHOL CHLORIDE (10 MG) 10 MG TABLET GT SCH ×3 (09:41→17:20)
[2022-08-31] MEDS: ZINC SULFATE 220 MG CAPSULE GT SCH (09:41)
[2022-08-31] MEDS: ASCORBIC ACID 500 MG TABLET GT SCH ×2 (09:41→17:20)
[2022-08-31] MEDS: VITS A AND D/WHITE PET/LANOLIN 5 GM PACKET TP SCH ×2 (09:42→21:50)
[2022-08-31] MEDS: HEPARIN SODIUM, PORCINE 5000 UNITS/1 ML VIAL SQ SCH ×2 (09:42→21:00)
[2022-08-31 12:24] VITALS: BP 127/71
[2022-08-31 20:09] VITALS: BP 104/64
[2022-08-31] MEDS: MULTIVIT W/MINERALS 1 TAB TABLET GT SCH (21:50)
[2022-08-31] MEDS: BASAGLAR SQ SCH (22:03)
[2022-08-31] MEDS: [UNRECOGNIZED DRUG - OTHER] SQ SCH (22:03)
[2022-09-01] MEDS: ALBUTEROL FS 2.5 MG/3 ML VIAL.NEB NEB SCH ×4 (01:40→19:06)
[2022-09-01] MEDS: IPRATROPIUM NEB FS 0.5 MG/2.5 ML AMPUL.NEB IH SCH ×4 (01:40→19:06)
[2022-09-01] MEDS: OMEPRAZOLE DR 20 MG GT SCH (05:51)
[2022-09-01] MEDS: BLOOD SUGAR DIAGNOSTIC 1 EACH STRIP IN SCH ×2 (05:51→18:25)
[2022-09-01] MEDS: POLYVINYL ALCOHOL 15 ML BOTTLE OP SCH ×4 (05:52→23:13)
[2022-09-01 07:34] VITALS: BP 110/68
[2022-09-01] MEDS: HYDROGEN PEROXIDE 480 ML BOTTLE TP SCH ×2 (08:47→19:06)
[2022-09-01] MEDS: FERROUS SULFATE - FOR SA ONLY 330 MG/7.5 ML UDC GT SCH ×3 (09:18→17:57)
[2022-09-01] MEDS: METFORMIN 850 MG TABLET GT SCH ×2 (09:18→17:57)
[2022-09-01] MEDS: DOCUSATE SODIUM LIQ 100 MG/10 ML UDC GT SCH (09:18)
[2022-09-01] MEDS: PROSTAT (PYXIS) 30 ML UDC GT SCH (09:19)
[2022-09-01] MEDS: ZINC SULFATE 220 MG CAPSULE GT SCH (09:19)
[2022-09-01] MEDS: BACLOFEN (10 MG) 10 MG TABLET GT SCH ×2 (09:19→21:33)
[2022-09-01] MEDS: BETHANECHOL CHLORIDE (10 MG) 10 MG TABLET GT SCH ×3 (09:19→17:57)
[2022-09-01] MEDS: ASCORBIC ACID 500 MG TABLET GT SCH ×2 (09:19→17:57)
[2022-09-01] MEDS: HEPARIN SODIUM, PORCINE 5000 UNITS/1 ML VIAL SQ SCH ×2 (09:19→21:34)
[2022-09-01] MEDS: INDOMETHACIN 25 MG CAPSULE GT SCH ×2 (09:19→17:57)
[2022-09-01] MEDS: VITS A AND D/WHITE PET/LANOLIN 5 GM PACKET TP SCH ×2 (09:19→21:34)
[2022-09-01] MEDS: LEVETIRACETAM SOL (5 ML) 100 MG/ML UDC GT SCH ×2 (09:19→21:33)
[2022-09-01] MEDS: CHLORHEXIDINE GLUCONATE 15 ML UDC MM SCH ×2 (09:19→21:33)
--- NOTE | 2022-09-01 10:45 | NUR ---
Notified Dr. Dsouza with the following VS T 102, P108, R 16, 99%, 112/69, Cooling measures rendered and PRN Tylenol given. Awaiting for orders.
[2022-09-01] MEDS ORDERED: MEROPENEM 500 MG in IV NS 0.9% 50 ML IV SCH ×2 (11:00→19:00)
--- NOTE | 2022-09-01 11:30 | NUR ---
Dr. Dsouza seen and evaluated patient with order for CBC, BMP, UA, C&S and BCx2. Order carried out.
[2022-09-01 12:08] LABS: BASOPHILS # (AUTO) 0.2 K/uL (0.0-0.2); BASOPHILS % (AUTO) 1.2 % (0.0-2.0); EOSINOPHILS % (AUTO) 0.5 % (0.0-6.0); HEMATOCRIT 26 % (33-45); HEMOGLOBIN 8.5 g/dL (11.5-14.8); LYMPHOCYTES # (AUTO) 2.9 K/uL (0.8-4.8); MEAN CORPUSCULAR HGB CONC 34 g/dl (31.0-36.0); MEAN CORPUSCULAR VOLUME 88 fL (82-100); MONOCYTES # (AUTO) 0.7 K/uL (0.1-1.30); NEUTROPHILS # (AUTO) 14.1 K/uL (1.8-8.9); NEUTROPHILS % (AUTO) 78.3 % (43.0-81.0); PLATELET COUNT (AUTO) 383 K/uL (150-450); RED BLOOD CELL COUNT(AUTO) 2.89 MIL/uL (4.0-5.2)
[2022-09-01 12:50] VITALS: BP 125/74
[2022-09-01 13:01] LABS: BAND % (MANUAL) 3 % (0.0-5.0); EOSINOPHILS % (MANUAL) 1 % (0-4); LYMPHOCYTES % (MANUAL) 14 % (16-48); MONOCYTES % (MANUAL) 2 % (0-11.0); NEUTROPHILS % (MANUAL) 80 (42-76)
[2022-09-01 13:04] LABS: CALCIUM, SERUM 9.7 mg/dL (8.5-10.1); CREATININE 1.4 mg/dL (0.6-1.3); POTASSIUM 4.1 mmol/L (3.5-5.1)
--- NOTE | 2022-09-01 13:45 | NUR ---
Relayed CBC and BMP result to Dr. Dsouza, UA still pending, awaiting for orders.
[2022-09-01 16:32] LABS: BILIRUBIN,URINE NEGATIVE (NEGATIVE); COLOR,URINE YELLOW (YELLOW); LEUKOCYTE ESTERASE ,URINE 1+ (NEGATIVE); NITRITE, URINE NEGATIVE (NEGATIVE); PROTEIN,URINE 1+ mg/dl (NEGATIVE); UGLUCOSE NEGATIVE (NEGATIVE); UROBILINOGEN,URINE 0.2 EU/dL (0.2)
[2022-09-01 17:02] LABS: RBC,URINE 0-2 /HPF (0-2); WBC,URINE 21-50 /HPF (0-3)
[2022-09-01 17:03] LABS: BACTERIA,URINE 3+ /HPF (None Seen); SQUAMOUS EPITHELIAL CELL,UR 0-2 /HPF (None Seen)
[2022-09-01] MEDS: GLUCERNA 1.2 1,000 ML BOTTLE GT PRN (17:57)
[2022-09-01] MEDS: [UNRECOGNIZED DRUG - OTHER] SQ PRN (18:26)
--- NOTE | 2022-09-01 18:30 | NUR ---
Relayed UA result to Dr. Dsouza with the ff VS 99.3, 15, 116/63, 116, 98% new order to start Meropenem 500 mg IV [id number] for fever and elevated WBC. Left a message to LORENZO Arias to follow-up per Dr. Dsouza's request. Spoke with Dianna from [facility]'s IV department, said that medication is covered by patient's insurance. Patient's sister Bere informed.
[2022-09-01 20:00] VITALS: BP 123/65
[2022-09-01] MEDS: MEROPENEM 500 MG in IV NS 0.9% 50 ML IV SCH (21:00)
--- NOTE | 2022-09-01 21:20 | NUR ---
Patient seen and examined by Lg SOCK LINING EXAMINER with new orders for Vancomycin pharmacist to dose and CXR in AM then do bladder scan q 8 hours if residual is 300ml do straight cath and if no residual in 24 hours stop bladder scan.Will carry out orders.
[2022-09-01] MEDS: MULTIVIT W/MINERALS 1 TAB TABLET GT SCH (21:33)
[2022-09-01] MEDS: BASAGLAR SQ SCH (21:34)
[2022-09-01] MEDS: [UNRECOGNIZED DRUG - OTHER] SQ SCH (21:34)
--- NOTE | 2022-09-01 21:52 | NUR ---
Bladder Scan per QUALITY ENGINEER Nera's order done- obtained post void residual of 63 ML . Per QUALITY ENGINEER Straight Cath if residual > 300 ML.
[2022-09-01] MEDS ORDERED: VANCOMYCIN 1 GM in IV D5W 250 ML IV SCH (22:00)
--- NOTE | 2022-09-01 22:00 | NUR ---
Vancomycin 1 gm IV q 24 hours per pharmacist x 5 days per [facility] protocol and draw Vancomycin and BMP on 09/04 @ 2100.
[2022-09-02] MEDS: IPRATROPIUM NEB FS 0.5 MG/2.5 ML AMPUL.NEB IH SCH ×4 (00:35→19:30)
[2022-09-02] MEDS: ALBUTEROL FS 2.5 MG/3 ML VIAL.NEB NEB SCH ×4 (00:35→19:30)
[2022-09-02] MEDS: OMEPRAZOLE DR 20 MG GT SCH (05:31)
[2022-09-02] MEDS: POLYVINYL ALCOHOL 15 ML BOTTLE OP SCH ×4 (05:31→23:10)
[2022-09-02] MEDS: BLOOD SUGAR DIAGNOSTIC 1 EACH STRIP IN SCH ×2 (05:31→18:31)
[2022-09-02] MEDS: [UNRECOGNIZED DRUG - OTHER] SQ PRN ×2 (05:32→18:31)
[2022-09-02] MEDS: ACETAMINOPHEN 650 MG/20 ML UDC- SA PATIENTS-PAIN ONLY GT PRN (06:05)
--- NOTE | 2022-09-02 06:07 | NUR ---
PATIENT RECEIVED ON TRACH TO VENT WITH SETTINGS OF AC 12, 450 Vt, 30%, +5. SUCTIONED FOR MINIMAL, THIN, WHITE SECRETIONS. GIVEN IN-LINE TREATMENTS WITH NO ADVERSE REACTIONS. AMBU BAG AT BEDSIDE. VENT ALARM AUDIBLE AND VISIBLE. TRACH CARE DONE. VENT PLUGGED INTO RED OUTLET. SCHEDULED VENT CIRCUIT CHANGE DONE. Addendum: 09/02/22 at 0608 by WHITNEY KLEIN RT Amended: Links added.
--- NOTE | 2022-09-02 06:16 | NUR ---
latest temp 100.5, HR 102,Cooling and Tylenol given for discomfort. Bladder scan done with 21cc of residual urine,no bladder distention. Will continue to monitor.
[2022-09-02 07:39] VITALS: BP 106/63
[2022-09-02] MEDS: HEPARIN SODIUM, PORCINE 5000 UNITS/1 ML VIAL SQ SCH ×2 (09:00→21:19)
[2022-09-02] MEDS: ZINC SULFATE 220 MG CAPSULE GT SCH (09:00)
[2022-09-02] MEDS: LEVETIRACETAM SOL (5 ML) 100 MG/ML UDC GT SCH ×2 (09:00→21:19)
[2022-09-02] MEDS: CHLORHEXIDINE GLUCONATE 15 ML UDC MM SCH ×2 (09:00→21:19)
[2022-09-02] MEDS: METFORMIN 850 MG TABLET GT SCH ×2 (09:00→17:36)
[2022-09-02] MEDS: INDOMETHACIN 25 MG CAPSULE GT SCH ×2 (09:00→17:36)
[2022-09-02] MEDS: DOCUSATE SODIUM LIQ 100 MG/10 ML UDC GT SCH (09:00)
[2022-09-02] MEDS: PROSTAT (PYXIS) 30 ML UDC GT SCH (09:00)
[2022-09-02] MEDS: BACLOFEN (10 MG) 10 MG TABLET GT SCH ×2 (09:00→21:19)
[2022-09-02] MEDS: FERROUS SULFATE - FOR SA ONLY 330 MG/7.5 ML UDC GT SCH ×3 (09:00→17:36)
[2022-09-02] MEDS: BETHANECHOL CHLORIDE (10 MG) 10 MG TABLET GT SCH ×3 (09:00→17:36)
[2022-09-02] MEDS: VITS A AND D/WHITE PET/LANOLIN 5 GM PACKET TP SCH ×2 (09:00→21:19)
[2022-09-02] MEDS: ASCORBIC ACID 500 MG TABLET GT SCH ×2 (09:00→17:37)
[2022-09-02] MEDS: HYDROGEN PEROXIDE 480 ML BOTTLE TP SCH ×2 (09:07→20:31)
[2022-09-02] MEDS: MEROPENEM 500 MG in IV NS 0.9% 50 ML IV SCH ×2 (09:44→21:22)
--- NOTE | 2022-09-02 14:00 | NUR ---
Relayed CXR result to LORENZO Rodgers. No new order.
--- NOTE | 2022-09-02 14:30 | NUR ---
Bladder scan done and observed 142 mL of urine in the bladder.
[2022-09-02] MEDS: GLUCERNA 1.2 1,000 ML BOTTLE GT PRN (18:31)
[2022-09-02 19:12] VITALS: BP 121/78
[2022-09-02] MEDS: MULTIVIT W/MINERALS 1 TAB TABLET GT SCH (21:19)
[2022-09-02] MEDS: BASAGLAR SQ SCH (21:20)
[2022-09-02] MEDS: [UNRECOGNIZED DRUG - OTHER] SQ SCH (21:20)
[2022-09-02] MEDS ORDERED: VANCOMYCIN 1 GM in IV D5W 250 ML IV SCH (22:00)
--- NOTE | 2022-09-02 22:18 | NUR ---
Bladder Scan post Void noted 80 ML.
[2022-09-02 23:58] VITALS: BP 119/73
[2022-09-03] MEDS: IPRATROPIUM NEB FS 0.5 MG/2.5 ML AMPUL.NEB IH SCH ×4 (01:54→19:10)
[2022-09-03] MEDS: ALBUTEROL FS 2.5 MG/3 ML VIAL.NEB NEB SCH ×4 (01:54→19:10)
--- NOTE | 2022-09-03 05:00 | NUR ---
Bladder scan post void noted : 150 ML
[2022-09-03] MEDS: POLYVINYL ALCOHOL 15 ML BOTTLE OP SCH ×4 (05:45→23:12)
[2022-09-03] MEDS: BLOOD SUGAR DIAGNOSTIC 1 EACH STRIP IN SCH ×2 (05:45→17:40)
[2022-09-03] MEDS: OMEPRAZOLE DR 20 MG GT SCH (05:45)
[2022-09-03] MEDS: [UNRECOGNIZED DRUG - OTHER] SQ PRN ×2 (05:46→17:41)
[2022-09-03 07:20] VITALS: BP 135/79
[2022-09-03] MEDS: CHLORHEXIDINE GLUCONATE 15 ML UDC MM SCH ×2 (09:00→20:32)
[2022-09-03] MEDS: LEVETIRACETAM SOL (5 ML) 100 MG/ML UDC GT SCH ×2 (09:08→20:32)
[2022-09-03] MEDS: ZINC SULFATE 220 MG CAPSULE GT SCH (09:08)
[2022-09-03] MEDS: BETHANECHOL CHLORIDE (10 MG) 10 MG TABLET GT SCH ×3 (09:08→17:26)
[2022-09-03] MEDS: PROSTAT (PYXIS) 30 ML UDC GT SCH (09:08)
[2022-09-03] MEDS: DOCUSATE SODIUM LIQ 100 MG/10 ML UDC GT SCH (09:08)
[2022-09-03] MEDS: METFORMIN 850 MG TABLET GT SCH ×2 (09:08→17:25)
[2022-09-03] MEDS: BACLOFEN (10 MG) 10 MG TABLET GT SCH ×2 (09:08→20:32)
[2022-09-03] MEDS: INDOMETHACIN 25 MG CAPSULE GT SCH ×2 (09:08→17:25)
[2022-09-03] MEDS: FERROUS SULFATE - FOR SA ONLY 330 MG/7.5 ML UDC GT SCH ×3 (09:08→17:25)
[2022-09-03] MEDS: ASCORBIC ACID 500 MG TABLET GT SCH ×2 (09:08→17:26)
[2022-09-03] MEDS: HEPARIN SODIUM, PORCINE 5000 UNITS/1 ML VIAL SQ SCH ×2 (09:09→20:32)
[2022-09-03] MEDS: VITS A AND D/WHITE PET/LANOLIN 5 GM PACKET TP SCH ×2 (09:09→20:33)
[2022-09-03] MEDS: MEROPENEM 500 MG in IV NS 0.9% 50 ML IV SCH ×2 (09:11→20:11)
[2022-09-03] MEDS: HYDROGEN PEROXIDE 480 ML BOTTLE TP SCH ×2 (09:54→21:00)
--- NOTE | 2022-09-03 10:00 | NUR ---
RT NOTE Received patient on mechanical ventilator. No sob or resp. distress noted. Trach patent secure and in place. Suctioned q2 and prn. Alarms on and audible. Vent plugged into red outlet. Txs tolerated well. Pt is currently stable will continue to monitor for any changes.
[2022-09-03 11:41] VITALS: BP 129/72
--- NOTE | 2022-09-03 14:36 | NUR ---
INTERDISCIPLINARY PLAN OF CARE CONFERENCE took place today. The patients sister, Tosin [phone] did not participate in phone conference. Dr. Alvarez and Interdisciplinary team discussed the plan of care in detail. Current orders as well as treatments and medications were reviewed. No new orders.
--- NOTE | 2022-09-03 18:45 | NUR ---
Resident noted with bilateral inner thigh redness, circular in shape and flat. Referred to MATY Pardo, she said to monitor for now and check if it spreads tomorrow. Endorsed.
[2022-09-03 18:51] VITALS: BP 129/79
[2022-09-03] MEDS: MULTIVIT W/MINERALS 1 TAB TABLET GT SCH (20:32)
[2022-09-03] MEDS: VANCOMYCIN 1 GM in IV D5W 250 ML IV SCH (21:01)
[2022-09-03] MEDS: BASAGLAR SQ SCH (21:04)
[2022-09-03] MEDS: [UNRECOGNIZED DRUG - OTHER] SQ SCH (21:04)
[2022-09-03 23:33] VITALS: BP 123/76
[2022-09-04] MEDS: IPRATROPIUM NEB FS 0.5 MG/2.5 ML AMPUL.NEB IH SCH ×4 (01:30→19:35)
[2022-09-04] MEDS: ALBUTEROL FS 2.5 MG/3 ML VIAL.NEB NEB SCH ×4 (01:30→19:35)
[2022-09-04] MEDS: OMEPRAZOLE DR 20 MG GT SCH (05:32)
[2022-09-04] MEDS: BLOOD SUGAR DIAGNOSTIC 1 EACH STRIP IN SCH ×2 (05:32→17:49)
[2022-09-04] MEDS: POLYVINYL ALCOHOL 15 ML BOTTLE OP SCH ×3 (05:32→17:50)
[2022-09-04] MEDS: [UNRECOGNIZED DRUG - OTHER] SQ PRN ×2 (05:32→17:50)
[2022-09-04 07:15] VITALS: BP 120/74
[2022-09-04] MEDS: FERROUS SULFATE - FOR SA ONLY 330 MG/7.5 ML UDC GT SCH ×3 (08:55→16:35)
[2022-09-04] MEDS: INDOMETHACIN 25 MG CAPSULE GT SCH ×2 (08:55→16:35)
[2022-09-04] MEDS: METFORMIN 850 MG TABLET GT SCH ×2 (08:55→16:35)
[2022-09-04] MEDS: ASCORBIC ACID 500 MG TABLET GT SCH ×2 (08:55→16:35)
[2022-09-04] MEDS: DOCUSATE SODIUM LIQ 100 MG/10 ML UDC GT SCH (08:55)
[2022-09-04] MEDS: PROSTAT (PYXIS) 30 ML UDC GT SCH (08:55)
[2022-09-04] MEDS: LEVETIRACETAM SOL (5 ML) 100 MG/ML UDC GT SCH ×2 (08:55→21:19)
[2022-09-04] MEDS: BETHANECHOL CHLORIDE (10 MG) 10 MG TABLET GT SCH ×3 (08:55→16:35)
[2022-09-04] MEDS: BACLOFEN (10 MG) 10 MG TABLET GT SCH ×2 (08:55→21:19)
[2022-09-04] MEDS: CHLORHEXIDINE GLUCONATE 15 ML UDC MM SCH ×2 (08:56→21:19)
[2022-09-04] MEDS: VITS A AND D/WHITE PET/LANOLIN 5 GM PACKET TP SCH ×2 (08:56→21:20)
[2022-09-04] MEDS: ZINC SULFATE 220 MG CAPSULE GT SCH (08:56)
[2022-09-04] MEDS: HEPARIN SODIUM, PORCINE 5000 UNITS/1 ML VIAL SQ SCH ×2 (08:56→21:20)
[2022-09-04] MEDS: GLUCERNA 1.2 1,000 ML BOTTLE GT PRN (08:57)
--- NOTE | 2022-09-04 09:30 | NUR ---
Seen and examined by Dr. Dsouza, assessed inner thigh rashes with order to apply Triamcinolone cream 0.1 QS x 14 days. Order carried out. Patient's sister Bere notified.
[2022-09-04] MEDS: HYDROGEN PEROXIDE 480 ML BOTTLE TP SCH ×2 (09:37→21:12)
[2022-09-04] MEDS: MEROPENEM 500 MG in IV NS 0.9% 50 ML IV SCH ×2 (09:58→21:07)
[2022-09-04 11:38] VITALS: BP 139/73
[2022-09-04 19:45] VITALS: BP 139/75
[2022-09-04 20:20] LABS: CALCIUM, SERUM 9.5 mg/dL (8.5-10.1); CREATININE 0.9 mg/dL (0.6-1.3); POTASSIUM 5.1 mmol/L (3.5-5.1)
[2022-09-04] MEDS: VANCOMYCIN 1 GM in IV D5W 250 ML IV SCH (21:14)
[2022-09-04] MEDS: MULTIVIT W/MINERALS 1 TAB TABLET GT SCH (21:19)
[2022-09-04] MEDS: TRIAMCINOLONE ACETONIDE 0.1% CR 15 GM TUBE TP SCH (21:20)
[2022-09-04] MEDS: BASAGLAR SQ SCH (21:34)
[2022-09-04] MEDS: [UNRECOGNIZED DRUG - OTHER] SQ SCH (21:34)
[2022-09-05] MEDS: ALBUTEROL FS 2.5 MG/3 ML VIAL.NEB NEB SCH ×4 (01:45→19:58)
[2022-09-05] MEDS: IPRATROPIUM NEB FS 0.5 MG/2.5 ML AMPUL.NEB IH SCH ×4 (01:45→19:58)
[2022-09-05] MEDS: OMEPRAZOLE DR 20 MG GT SCH (05:06)
[2022-09-05] MEDS: BLOOD SUGAR DIAGNOSTIC 1 EACH STRIP IN SCH ×2 (05:06→17:36)
[2022-09-05] MEDS: POLYVINYL ALCOHOL 15 ML BOTTLE OP SCH ×4 (05:06→17:37)
[2022-09-05] MEDS: [UNRECOGNIZED DRUG - OTHER] SQ PRN ×2 (05:07→18:08)
[2022-09-05 08:07] VITALS: BP 123/78
[2022-09-05] MEDS: HYDROGEN PEROXIDE 480 ML BOTTLE TP SCH ×2 (08:12→21:06)
[2022-09-05] MEDS: MEROPENEM 500 MG in IV NS 0.9% 50 ML IV SCH ×2 (09:00→20:52)
[2022-09-05] MEDS: BACLOFEN (10 MG) 10 MG TABLET GT SCH ×2 (09:55→20:46)
[2022-09-05] MEDS: ASCORBIC ACID 500 MG TABLET GT SCH ×2 (09:55→17:03)
[2022-09-05] MEDS: PROSTAT (PYXIS) 30 ML UDC GT SCH (09:55)
[2022-09-05] MEDS: CHLORHEXIDINE GLUCONATE 15 ML UDC MM SCH ×2 (09:55→20:46)
[2022-09-05] MEDS: METFORMIN 850 MG TABLET GT SCH ×2 (09:55→17:03)
[2022-09-05] MEDS: INDOMETHACIN 25 MG CAPSULE GT SCH ×2 (09:55→17:03)
[2022-09-05] MEDS: ZINC SULFATE 220 MG CAPSULE GT SCH (09:55)
[2022-09-05] MEDS: LEVETIRACETAM SOL (5 ML) 100 MG/ML UDC GT SCH ×2 (09:55→20:45)
[2022-09-05] MEDS: FERROUS SULFATE - FOR SA ONLY 330 MG/7.5 ML UDC GT SCH ×3 (09:55→17:03)
[2022-09-05] MEDS: BETHANECHOL CHLORIDE (10 MG) 10 MG TABLET GT SCH ×3 (09:55→17:03)
[2022-09-05] MEDS: DOCUSATE SODIUM LIQ 100 MG/10 ML UDC GT SCH (09:55)
[2022-09-05] MEDS: TRIAMCINOLONE ACETONIDE 0.1% CR 15 GM TUBE TP SCH ×2 (09:56→20:43)
[2022-09-05] MEDS: HEPARIN SODIUM, PORCINE 5000 UNITS/1 ML VIAL SQ SCH ×2 (09:56→20:42)
[2022-09-05] MEDS: VITS A AND D/WHITE PET/LANOLIN 5 GM PACKET TP SCH ×2 (09:56→20:43)
[2022-09-05] MEDS: GLUCERNA 1.2 1,000 ML BOTTLE GT PRN (15:45)
--- NOTE | 2022-09-05 17:40 | NUR ---
Relayed Marah pederson to [facility] pharmacist [place], she said to continue with current dose, give last dose tonight to complete 5-days therapy.
[2022-09-05 19:09] VITALS: BP 125/74
[2022-09-05] MEDS: MULTIVIT W/MINERALS 1 TAB TABLET GT SCH (20:46)
[2022-09-05] MEDS: VANCOMYCIN 1 GM in IV D5W 250 ML IV SCH (20:52)
[2022-09-05] MEDS: BASAGLAR SQ SCH (21:24)
[2022-09-05] MEDS: [UNRECOGNIZED DRUG - OTHER] SQ SCH (21:24)
[2022-09-05 23:50] VITALS: BP 118/68
[2022-09-06] MEDS: POLYVINYL ALCOHOL 15 ML BOTTLE OP SCH ×4 (00:32→17:16)
[2022-09-06] MEDS: IPRATROPIUM NEB FS 0.5 MG/2.5 ML AMPUL.NEB IH SCH ×4 (01:41→20:04)
[2022-09-06] MEDS: ALBUTEROL FS 2.5 MG/3 ML VIAL.NEB NEB SCH ×4 (01:41→20:04)
[2022-09-06] MEDS: BLOOD SUGAR DIAGNOSTIC 1 EACH STRIP IN SCH ×2 (05:37→17:16)
[2022-09-06] MEDS: OMEPRAZOLE DR 20 MG GT SCH (05:37)
[2022-09-06] MEDS: [UNRECOGNIZED DRUG - OTHER] SQ PRN ×2 (05:38→17:18)
[2022-09-06 08:40] VITALS: BP 132/89
[2022-09-06] MEDS: METFORMIN 850 MG TABLET GT SCH ×2 (09:00→17:15)
[2022-09-06] MEDS: ASCORBIC ACID 500 MG TABLET GT SCH ×2 (09:00→17:16)
[2022-09-06] MEDS: HEPARIN SODIUM, PORCINE 5000 UNITS/1 ML VIAL SQ SCH ×2 (09:00→21:16)
[2022-09-06] MEDS: INDOMETHACIN 25 MG CAPSULE GT SCH ×2 (09:00→17:15)
[2022-09-06] MEDS: MEROPENEM 500 MG in IV NS 0.9% 50 ML IV SCH ×2 (09:00→21:00)
[2022-09-06] MEDS: ZINC SULFATE 220 MG CAPSULE GT SCH (09:00)
[2022-09-06] MEDS: FERROUS SULFATE - FOR SA ONLY 330 MG/7.5 ML UDC GT SCH ×3 (09:00→17:15)
[2022-09-06] MEDS: PROSTAT (PYXIS) 30 ML UDC GT SCH (09:00)
[2022-09-06] MEDS: CHLORHEXIDINE GLUCONATE 15 ML UDC MM SCH ×2 (09:00→21:15)
[2022-09-06] MEDS: TRIAMCINOLONE ACETONIDE 0.1% CR 15 GM TUBE TP SCH ×2 (09:00→21:21)
[2022-09-06] MEDS: VITS A AND D/WHITE PET/LANOLIN 5 GM PACKET TP SCH ×2 (09:00→21:21)
[2022-09-06] MEDS: BETHANECHOL CHLORIDE (10 MG) 10 MG TABLET GT SCH ×3 (09:00→17:16)
[2022-09-06] MEDS: BACLOFEN (10 MG) 10 MG TABLET GT SCH ×2 (09:00→21:15)
[2022-09-06] MEDS: LEVETIRACETAM SOL (5 ML) 100 MG/ML UDC GT SCH ×2 (09:00→21:14)
[2022-09-06] MEDS: DOCUSATE SODIUM LIQ 100 MG/10 ML UDC GT SCH (09:00)
[2022-09-06] MEDS: HYDROGEN PEROXIDE 480 ML BOTTLE TP SCH ×2 (09:58→21:33)
--- NOTE | 2022-09-06 12:05 | NUR ---
Sent a message to LORENZO Ramirez that patient completed today her 5-day IV ATB therapy Vanco and Meropenem for fever and elevated WBC. Patient asymptomatic, no fever x 3 days. Awaiting for reply. Will follow up.
--- NOTE | 2022-09-06 13:25 | NUR ---
Received order from LORENZO Ramirez to continue Vanco and Meropenem IV x 2 more days, carried out.
[2022-09-06 14:55] VITALS: BP 141/86
[2022-09-06] MEDS ORDERED: MEROPENEM 500 MG in IV NS 0.9% 50 ML IV SCH (16:00)
--- NOTE | 2022-09-06 16:15 | NUR ---
Virtual rounds done with LORENZO Rodgers, no new order given.
[2022-09-06] MEDS: GLUCERNA 1.2 1,000 ML BOTTLE GT PRN (19:03)
[2022-09-06 19:45] VITALS: BP 126/79
[2022-09-06] MEDS: VANCOMYCIN 1 GM in IV D5W 250 ML IV SCH (21:00)
[2022-09-06] MEDS: MULTIVIT W/MINERALS 1 TAB TABLET GT SCH (21:15)
[2022-09-06] MEDS: BASAGLAR SQ SCH (21:22)
[2022-09-06] MEDS: [UNRECOGNIZED DRUG - OTHER] SQ SCH (21:22)
[2022-09-07] MEDS: POLYVINYL ALCOHOL 15 ML BOTTLE OP SCH ×5 (00:47→23:13)
[2022-09-07] MEDS: IPRATROPIUM NEB FS 0.5 MG/2.5 ML AMPUL.NEB IH SCH ×4 (01:37→19:30)
[2022-09-07] MEDS: ALBUTEROL FS 2.5 MG/3 ML VIAL.NEB NEB SCH ×4 (01:37→19:30)
[2022-09-07] MEDS: BLOOD SUGAR DIAGNOSTIC 1 EACH STRIP IN SCH ×2 (05:09→17:27)
[2022-09-07] MEDS: OMEPRAZOLE DR 20 MG GT SCH (05:09)
[2022-09-07] MEDS: [UNRECOGNIZED DRUG - OTHER] SQ PRN ×2 (05:10→17:29)
[2022-09-07 07:18] VITALS: BP 106/69
[2022-09-07 07:27] VITALS: BP 120/76
[2022-09-07] MEDS: VITS A AND D/WHITE PET/LANOLIN 5 GM PACKET TP SCH ×2 (09:00→21:45)
[2022-09-07] MEDS: CHLORHEXIDINE GLUCONATE 15 ML UDC MM SCH ×2 (09:00→21:45)
[2022-09-07] MEDS: METFORMIN 850 MG TABLET GT SCH ×2 (09:00→16:12)
[2022-09-07] MEDS: DOCUSATE SODIUM LIQ 100 MG/10 ML UDC GT SCH (09:00)
[2022-09-07] MEDS: BACLOFEN (10 MG) 10 MG TABLET GT SCH ×2 (09:00→21:45)
[2022-09-07] MEDS: FERROUS SULFATE - FOR SA ONLY 330 MG/7.5 ML UDC GT SCH ×3 (09:00→16:12)
[2022-09-07] MEDS: LEVETIRACETAM SOL (5 ML) 100 MG/ML UDC GT SCH ×2 (09:00→21:45)
[2022-09-07] MEDS: ASCORBIC ACID 500 MG TABLET GT SCH ×2 (09:00→16:12)
[2022-09-07] MEDS: TRIAMCINOLONE ACETONIDE 0.1% CR 15 GM TUBE TP SCH ×2 (09:00→21:45)
[2022-09-07] MEDS: BETHANECHOL CHLORIDE (10 MG) 10 MG TABLET GT SCH ×3 (09:00→16:12)
[2022-09-07] MEDS: INDOMETHACIN 25 MG CAPSULE GT SCH ×2 (09:00→16:12)
[2022-09-07] MEDS: PROSTAT (PYXIS) 30 ML UDC GT SCH (09:00)
[2022-09-07] MEDS: ZINC SULFATE 220 MG CAPSULE GT SCH (09:00)
[2022-09-07] MEDS: HEPARIN SODIUM, PORCINE 5000 UNITS/1 ML VIAL SQ SCH ×2 (09:00→21:45)
--- NOTE | 2022-09-07 09:00 | NUR ---
Seen and examined by Dr. Alvarez, no new order given.
[2022-09-07] MEDS: HYDROGEN PEROXIDE 480 ML BOTTLE TP SCH ×2 (09:04→20:38)
[2022-09-07] MEDS: MEROPENEM 500 MG in IV NS 0.9% 50 ML IV SCH ×2 (09:20→21:00)
[2022-09-07 11:19] VITALS: BP 131/71
[2022-09-07 19:15] VITALS: BP 138/80
[2022-09-07] MEDS: VANCOMYCIN 1 GM in IV D5W 250 ML IV SCH (21:00)
[2022-09-07] MEDS: MULTIVIT W/MINERALS 1 TAB TABLET GT SCH (21:45)
[2022-09-07] MEDS: BASAGLAR SQ SCH (22:11)
[2022-09-07] MEDS: [UNRECOGNIZED DRUG - OTHER] SQ SCH (22:11)
[2022-09-08] MEDS: IPRATROPIUM NEB FS 0.5 MG/2.5 ML AMPUL.NEB IH SCH ×4 (01:30→20:23)
[2022-09-08] MEDS: ALBUTEROL FS 2.5 MG/3 ML VIAL.NEB NEB SCH ×4 (01:30→20:23)
[2022-09-08] MEDS: BLOOD SUGAR DIAGNOSTIC 1 EACH STRIP IN SCH ×2 (05:44→18:02)
[2022-09-08] MEDS: OMEPRAZOLE DR 20 MG GT SCH (05:44)
[2022-09-08] MEDS: [UNRECOGNIZED DRUG - OTHER] SQ PRN ×2 (05:44→18:03)
[2022-09-08] MEDS: POLYVINYL ALCOHOL 15 ML BOTTLE OP SCH ×4 (05:44→23:31)
[2022-09-08] MEDS: GLUCERNA 1.2 1,000 ML BOTTLE GT PRN (05:45)
[2022-09-08 07:55] VITALS: BP 112/78
[2022-09-08] MEDS: FERROUS SULFATE - FOR SA ONLY 330 MG/7.5 ML UDC GT SCH ×3 (09:09→17:00)
[2022-09-08] MEDS: BACLOFEN (10 MG) 10 MG TABLET GT SCH ×2 (09:09→20:40)
[2022-09-08] MEDS: ASCORBIC ACID 500 MG TABLET GT SCH ×2 (09:09→17:00)
[2022-09-08] MEDS: PROSTAT (PYXIS) 30 ML UDC GT SCH (09:09)
[2022-09-08] MEDS: LEVETIRACETAM SOL (5 ML) 100 MG/ML UDC GT SCH ×2 (09:09→20:40)
[2022-09-08] MEDS: DOCUSATE SODIUM LIQ 100 MG/10 ML UDC GT SCH (09:09)
[2022-09-08] MEDS: CHLORHEXIDINE GLUCONATE 15 ML UDC MM SCH ×2 (09:09→20:41)
[2022-09-08] MEDS: METFORMIN 850 MG TABLET GT SCH ×2 (09:09→17:00)
[2022-09-08] MEDS: ZINC SULFATE 220 MG CAPSULE GT SCH (09:09)
[2022-09-08] MEDS: BETHANECHOL CHLORIDE (10 MG) 10 MG TABLET GT SCH ×3 (09:09→17:00)
[2022-09-08] MEDS: INDOMETHACIN 25 MG CAPSULE GT SCH ×2 (09:09→17:00)
[2022-09-08] MEDS: HEPARIN SODIUM, PORCINE 5000 UNITS/1 ML VIAL SQ SCH ×2 (09:10→20:41)
[2022-09-08] MEDS: VITS A AND D/WHITE PET/LANOLIN 5 GM PACKET TP SCH ×2 (09:10→20:41)
[2022-09-08] MEDS: TRIAMCINOLONE ACETONIDE 0.1% CR 15 GM TUBE TP SCH ×2 (09:10→20:41)
[2022-09-08] MEDS: HYDROGEN PEROXIDE 480 ML BOTTLE TP SCH ×2 (09:28→20:23)
[2022-09-08] MEDS: MEROPENEM 500 MG in IV NS 0.9% 50 ML IV SCH (09:30)
[2022-09-08 12:19] VITALS: BP 118/75
[2022-09-08 20:06] VITALS: BP 128/75
[2022-09-08] MEDS: MULTIVIT W/MINERALS 1 TAB TABLET GT SCH (20:41)
[2022-09-08] MEDS: BASAGLAR SQ SCH (21:59)
[2022-09-08] MEDS: [UNRECOGNIZED DRUG - OTHER] SQ SCH (21:59)
[2022-09-09 01:02] VITALS: BP 122/72
[2022-09-09] MEDS: IPRATROPIUM NEB FS 0.5 MG/2.5 ML AMPUL.NEB IH SCH ×4 (02:14→20:14)
[2022-09-09] MEDS: ALBUTEROL FS 2.5 MG/3 ML VIAL.NEB NEB SCH ×4 (02:14→20:14)
[2022-09-09] MEDS: OMEPRAZOLE DR 20 MG GT SCH (06:00)
[2022-09-09] MEDS: BLOOD SUGAR DIAGNOSTIC 1 EACH STRIP IN SCH ×2 (06:00→18:02)
[2022-09-09] MEDS: POLYVINYL ALCOHOL 15 ML BOTTLE OP SCH ×4 (06:00→23:56)
[2022-09-09] MEDS: [UNRECOGNIZED DRUG - OTHER] SQ PRN ×2 (06:00→18:19)
[2022-09-09 08:00] VITALS: BP 134/80
[2022-09-09] MEDS: HYDROGEN PEROXIDE 480 ML BOTTLE TP SCH ×2 (09:01→20:14)
[2022-09-09] MEDS: FERROUS SULFATE - FOR SA ONLY 330 MG/7.5 ML UDC GT SCH ×3 (09:06→17:15)
[2022-09-09] MEDS: INDOMETHACIN 25 MG CAPSULE GT SCH ×2 (09:06→17:15)
[2022-09-09] MEDS: CHLORHEXIDINE GLUCONATE 15 ML UDC MM SCH ×2 (09:06→21:38)
[2022-09-09] MEDS: ASCORBIC ACID 500 MG TABLET GT SCH ×2 (09:06→17:15)
[2022-09-09] MEDS: LEVETIRACETAM SOL (5 ML) 100 MG/ML UDC GT SCH ×2 (09:06→21:38)
[2022-09-09] MEDS: PROSTAT (PYXIS) 30 ML UDC GT SCH (09:06)
[2022-09-09] MEDS: BETHANECHOL CHLORIDE (10 MG) 10 MG TABLET GT SCH ×3 (09:06→17:15)
[2022-09-09] MEDS: ZINC SULFATE 220 MG CAPSULE GT SCH (09:06)
[2022-09-09] MEDS: BACLOFEN (10 MG) 10 MG TABLET GT SCH ×2 (09:06→21:38)
[2022-09-09] MEDS: METFORMIN 850 MG TABLET GT SCH ×2 (09:06→17:15)
[2022-09-09] MEDS: DOCUSATE SODIUM LIQ 100 MG/10 ML UDC GT SCH (09:06)
[2022-09-09] MEDS: VITS A AND D/WHITE PET/LANOLIN 5 GM PACKET TP SCH ×2 (09:07→21:39)
[2022-09-09] MEDS: TRIAMCINOLONE ACETONIDE 0.1% CR 15 GM TUBE TP SCH ×2 (09:07→21:39)
[2022-09-09] MEDS: HEPARIN SODIUM, PORCINE 5000 UNITS/1 ML VIAL SQ SCH ×2 (09:07→21:38)
[2022-09-09] MEDS: GLUCERNA 1.2 1,000 ML BOTTLE GT PRN (17:16)
[2022-09-09 20:16] VITALS: BP 133/81
[2022-09-09] MEDS: MULTIVIT W/MINERALS 1 TAB TABLET GT SCH (21:38)
[2022-09-09] MEDS: BASAGLAR SQ SCH (21:39)
[2022-09-09] MEDS: [UNRECOGNIZED DRUG - OTHER] SQ SCH (21:39)
--- NOTE | 2022-09-09 22:00 | NUR ---
Noted with gluteal open wound,treatment initiated,cleanse with Ns ,pat dry apply Hydrogel every shift cover with mepilex x 14 days. Will continue to monitor.
[2022-09-10 01:01] VITALS: BP 125/73
[2022-09-10] MEDS: IPRATROPIUM NEB FS 0.5 MG/2.5 ML AMPUL.NEB IH SCH ×4 (02:26→20:04)
[2022-09-10] MEDS: ALBUTEROL FS 2.5 MG/3 ML VIAL.NEB NEB SCH ×4 (02:26→20:04)
[2022-09-10] MEDS: BLOOD SUGAR DIAGNOSTIC 1 EACH STRIP IN SCH ×2 (05:25→18:14)
[2022-09-10] MEDS: OMEPRAZOLE DR 20 MG GT SCH (05:25)
[2022-09-10] MEDS: POLYVINYL ALCOHOL 15 ML BOTTLE OP SCH ×4 (05:26→23:58)
[2022-09-10] MEDS: [UNRECOGNIZED DRUG - OTHER] SQ PRN ×2 (05:26→18:14)
--- NOTE | 2022-09-10 05:30 | NUR ---
Pt recvd on current vent settings, trach is patent and secured. Neb tx given and pt karli well. No SOB or respiratory distress noted. Tracheal and oral suction PRN. SPo2 >92% maintained. Trach care done. Vent is plugged into red outlet with alarms on and audible. Spare trach and ambu at bedside.
[2022-09-10 08:23] VITALS: BP 136/83
[2022-09-10] MEDS: HYDROGEN PEROXIDE 480 ML BOTTLE TP SCH ×2 (09:06→20:04)
[2022-09-10] MEDS: ASCORBIC ACID 500 MG TABLET GT SCH ×2 (09:15→17:17)
[2022-09-10] MEDS: PROSTAT (PYXIS) 30 ML UDC GT SCH (09:15)
[2022-09-10] MEDS: ZINC SULFATE 220 MG CAPSULE GT SCH (09:15)
[2022-09-10] MEDS: CHLORHEXIDINE GLUCONATE 15 ML UDC MM SCH ×2 (09:15→21:26)
[2022-09-10] MEDS: METFORMIN 850 MG TABLET GT SCH ×2 (09:15→17:17)
[2022-09-10] MEDS: DOCUSATE SODIUM LIQ 100 MG/10 ML UDC GT SCH (09:15)
[2022-09-10] MEDS: BETHANECHOL CHLORIDE (10 MG) 10 MG TABLET GT SCH ×3 (09:15→17:17)
[2022-09-10] MEDS: HEPARIN SODIUM, PORCINE 5000 UNITS/1 ML VIAL SQ SCH ×2 (09:15→21:26)
[2022-09-10] MEDS: LEVETIRACETAM SOL (5 ML) 100 MG/ML UDC GT SCH ×2 (09:15→21:26)
[2022-09-10] MEDS: INDOMETHACIN 25 MG CAPSULE GT SCH ×2 (09:15→17:17)
[2022-09-10] MEDS: BACLOFEN (10 MG) 10 MG TABLET GT SCH ×2 (09:15→21:26)
[2022-09-10] MEDS: FERROUS SULFATE - FOR SA ONLY 330 MG/7.5 ML UDC GT SCH ×3 (09:15→17:17)
[2022-09-10] MEDS: VITS A AND D/WHITE PET/LANOLIN 5 GM PACKET TP SCH ×2 (09:16→21:26)
[2022-09-10] MEDS: HYDROGEL DRESSING 90 GM TUBE TP SCH ×2 (09:16→21:26)
[2022-09-10] MEDS: TRIAMCINOLONE ACETONIDE 0.1% CR 15 GM TUBE TP SCH ×2 (09:16→21:26)
[2022-09-10] MEDS: GLUCERNA 1.2 1,000 ML BOTTLE GT PRN (17:18)
[2022-09-10] MEDS: BISACODYL SUPP (10 MG) 10 MG/SUPP.RECT SUPP.RECT RC PRN (18:20)
[2022-09-10 19:16] VITALS: BP 128/84
[2022-09-10] MEDS: MULTIVIT W/MINERALS 1 TAB TABLET GT SCH (21:26)
[2022-09-10] MEDS: [UNRECOGNIZED DRUG - OTHER] SQ SCH (21:27)
[2022-09-10] MEDS: BASAGLAR SQ SCH (21:27)
[2022-09-11 00:20] VITALS: BP 122/74
[2022-09-11] MEDS: IPRATROPIUM NEB FS 0.5 MG/2.5 ML AMPUL.NEB IH SCH ×4 (02:12→19:03)
[2022-09-11] MEDS: ALBUTEROL FS 2.5 MG/3 ML VIAL.NEB NEB SCH ×4 (02:12→19:03)
[2022-09-11] MEDS: POLYVINYL ALCOHOL 15 ML BOTTLE OP SCH ×3 (05:11→18:06)
[2022-09-11] MEDS: OMEPRAZOLE DR 20 MG GT SCH (05:11)
[2022-09-11] MEDS: [UNRECOGNIZED DRUG - OTHER] SQ PRN ×2 (05:11→18:06)
[2022-09-11] MEDS: BLOOD SUGAR DIAGNOSTIC 1 EACH STRIP IN SCH ×2 (05:11→18:06)
--- NOTE | 2022-09-11 05:44 | NUR ---
RT PT RECVD ON CURRENT VENT SETTINGS. ALARMS ARE ON AND AUDIBLE. TRACH IS PATENT AND SECURED. NO SOB OR RESPIRATORY DISTRESS NOTED THROUGHOUT SHIFT. NEB TX GIVEN AND TUTU WELL. SUCTIONED, PRN, TRACH CARE DONE. VENT IS PLUGGED INTO RED OUTLET WITH AMBU AND SPARE TRACH AT BEDSIDE. SPO2 >92% MAINTAINED.
[2022-09-11 07:35] VITALS: BP 130/69
[2022-09-11] MEDS: VITS A AND D/WHITE PET/LANOLIN 5 GM PACKET TP SCH ×2 (09:00→21:27)
[2022-09-11] MEDS: TRIAMCINOLONE ACETONIDE 0.1% CR 15 GM TUBE TP SCH ×2 (09:00→21:27)
[2022-09-11] MEDS: HYDROGEL DRESSING 90 GM TUBE TP SCH ×2 (09:00→21:27)
[2022-09-11] MEDS: HEPARIN SODIUM, PORCINE 5000 UNITS/1 ML VIAL SQ SCH ×2 (09:00→21:27)
[2022-09-11] MEDS: HYDROGEN PEROXIDE 480 ML BOTTLE TP SCH ×2 (09:09→21:40)
[2022-09-11] MEDS: METFORMIN 850 MG TABLET GT SCH ×2 (09:58→16:40)
[2022-09-11] MEDS: INDOMETHACIN 25 MG CAPSULE GT SCH ×2 (09:58→16:41)
[2022-09-11] MEDS: FERROUS SULFATE - FOR SA ONLY 330 MG/7.5 ML UDC GT SCH ×3 (09:58→16:40)
[2022-09-11] MEDS: CHLORHEXIDINE GLUCONATE 15 ML UDC MM SCH ×2 (09:58→21:26)
[2022-09-11] MEDS: BETHANECHOL CHLORIDE (10 MG) 10 MG TABLET GT SCH ×3 (09:58→16:41)
[2022-09-11] MEDS: ASCORBIC ACID 500 MG TABLET GT SCH ×2 (09:58→16:41)
[2022-09-11] MEDS: BACLOFEN (10 MG) 10 MG TABLET GT SCH ×2 (09:58→21:26)
[2022-09-11] MEDS: ZINC SULFATE 220 MG CAPSULE GT SCH (09:58)
[2022-09-11] MEDS: LEVETIRACETAM SOL (5 ML) 100 MG/ML UDC GT SCH ×2 (09:58→21:26)
[2022-09-11] MEDS: DOCUSATE SODIUM LIQ 100 MG/10 ML UDC GT SCH (09:58)
[2022-09-11] MEDS: PROSTAT (PYXIS) 30 ML UDC GT SCH (09:58)
[2022-09-11 12:34] VITALS: BP 127/57
[2022-09-11 18:59] VITALS: BP 133/77
[2022-09-11] MEDS: MULTIVIT W/MINERALS 1 TAB TABLET GT SCH (21:26)
[2022-09-11] MEDS: [UNRECOGNIZED DRUG - OTHER] SQ SCH (21:46)
[2022-09-11] MEDS: BASAGLAR SQ SCH (21:46)
[2022-09-12] MEDS: POLYVINYL ALCOHOL 15 ML BOTTLE OP SCH ×4 (00:43→18:05)
[2022-09-12] MEDS: IPRATROPIUM NEB FS 0.5 MG/2.5 ML AMPUL.NEB IH SCH ×4 (01:23→19:07)
[2022-09-12] MEDS: ALBUTEROL FS 2.5 MG/3 ML VIAL.NEB NEB SCH ×4 (01:23→19:07)
[2022-09-12] MEDS: BLOOD SUGAR DIAGNOSTIC 1 EACH STRIP IN SCH ×2 (05:17→18:04)
[2022-09-12] MEDS: OMEPRAZOLE DR 20 MG GT SCH (05:17)
[2022-09-12 07:27] VITALS: BP 123/79
[2022-09-12] MEDS: HYDROGEL DRESSING 90 GM TUBE TP SCH ×2 (09:00→20:25)
[2022-09-12] MEDS: TRIAMCINOLONE ACETONIDE 0.1% CR 15 GM TUBE TP SCH ×2 (09:00→20:25)
[2022-09-12] MEDS: VITS A AND D/WHITE PET/LANOLIN 5 GM PACKET TP SCH ×2 (09:00→20:25)
[2022-09-12] MEDS: HYDROGEN PEROXIDE 480 ML BOTTLE TP SCH ×2 (09:03→20:41)
[2022-09-12] MEDS: FERROUS SULFATE - FOR SA ONLY 330 MG/7.5 ML UDC GT SCH ×3 (09:38→17:00)
[2022-09-12] MEDS: INDOMETHACIN 25 MG CAPSULE GT SCH ×2 (09:38→17:00)
[2022-09-12] MEDS: DOCUSATE SODIUM LIQ 100 MG/10 ML UDC GT SCH (09:38)
[2022-09-12] MEDS: LEVETIRACETAM SOL (5 ML) 100 MG/ML UDC GT SCH ×2 (09:38→20:24)
[2022-09-12] MEDS: METFORMIN 850 MG TABLET GT SCH ×2 (09:38→17:00)
[2022-09-12] MEDS: ASCORBIC ACID 500 MG TABLET GT SCH ×2 (09:39→17:00)
[2022-09-12] MEDS: BACLOFEN (10 MG) 10 MG TABLET GT SCH ×2 (09:39→20:24)
[2022-09-12] MEDS: CHLORHEXIDINE GLUCONATE 15 ML UDC MM SCH ×2 (09:39→20:24)
[2022-09-12] MEDS: BETHANECHOL CHLORIDE (10 MG) 10 MG TABLET GT SCH ×3 (09:39→17:00)
[2022-09-12] MEDS: ZINC SULFATE 220 MG CAPSULE GT SCH (09:39)
[2022-09-12] MEDS: PROSTAT (PYXIS) 30 ML UDC GT SCH (09:39)
[2022-09-12] MEDS: HEPARIN SODIUM, PORCINE 5000 UNITS/1 ML VIAL SQ SCH ×2 (09:40→20:25)
--- NOTE | 2022-09-12 14:45 | NUR ---
RT NOTE MONTHLY TRACH CHANGE DONE PER RT PROTOCOL. NO RESPIRATORY COMPLICATIONS NOTED. BILATERAL BREATH SOUNDS ON AUSCULTATION. RESPIRATIONS EVEN AND UNLABORED. OIL HEAT TECHNICIAN DONE. TRACH SECURED AND AIRWAY PATENT. NO SOB NOTED AT THIS TIME. AMBER LUTHER NOTIFIED AND AWARE.
[2022-09-12] MEDS: [UNRECOGNIZED DRUG - OTHER] SQ PRN (18:06)
[2022-09-12 18:59] VITALS: BP 128/77
[2022-09-12] MEDS: MULTIVIT W/MINERALS 1 TAB TABLET GT SCH (20:24)
[2022-09-12] MEDS: BASAGLAR SQ SCH (21:23)
[2022-09-12] MEDS: [UNRECOGNIZED DRUG - OTHER] SQ SCH (21:23)
[2022-09-13] MEDS: POLYVINYL ALCOHOL 15 ML BOTTLE OP SCH ×4 (00:20→17:53)
[2022-09-13 00:25] VITALS: BP 135/85
[2022-09-13] MEDS: ALBUTEROL FS 2.5 MG/3 ML VIAL.NEB NEB SCH ×4 (01:05→19:59)
[2022-09-13] MEDS: IPRATROPIUM NEB FS 0.5 MG/2.5 ML AMPUL.NEB IH SCH ×4 (01:05→19:59)
[2022-09-13] MEDS: OMEPRAZOLE DR 20 MG GT SCH (05:19)
[2022-09-13] MEDS: BLOOD SUGAR DIAGNOSTIC 1 EACH STRIP IN SCH ×2 (05:19→17:53)
[2022-09-13] MEDS: [UNRECOGNIZED DRUG - OTHER] SQ PRN ×2 (05:19→17:54)
[2022-09-13 07:52] VITALS: BP 116/66
[2022-09-13] MEDS: HYDROGEN PEROXIDE 480 ML BOTTLE TP SCH ×2 (08:33→21:11)
[2022-09-13] MEDS: INDOMETHACIN 25 MG CAPSULE GT SCH ×2 (09:00→16:47)
[2022-09-13] MEDS: DOCUSATE SODIUM LIQ 100 MG/10 ML UDC GT SCH (09:00)
[2022-09-13] MEDS: LEVETIRACETAM SOL (5 ML) 100 MG/ML UDC GT SCH ×2 (09:00→21:56)
[2022-09-13] MEDS: TRIAMCINOLONE ACETONIDE 0.1% CR 15 GM TUBE TP SCH ×2 (09:00→21:57)
[2022-09-13] MEDS: BETHANECHOL CHLORIDE (10 MG) 10 MG TABLET GT SCH ×3 (09:00→16:47)
[2022-09-13] MEDS: HEPARIN SODIUM, PORCINE 5000 UNITS/1 ML VIAL SQ SCH ×2 (09:00→21:57)
[2022-09-13] MEDS: BACLOFEN (10 MG) 10 MG TABLET GT SCH ×2 (09:00→21:56)
[2022-09-13] MEDS: ASCORBIC ACID 500 MG TABLET GT SCH ×2 (09:00→16:47)
[2022-09-13] MEDS: ZINC SULFATE 220 MG CAPSULE GT SCH (09:00)
[2022-09-13] MEDS: HYDROGEL DRESSING 90 GM TUBE TP SCH ×2 (09:00→21:57)
[2022-09-13] MEDS: PROSTAT (PYXIS) 30 ML UDC GT SCH (09:00)
[2022-09-13] MEDS: VITS A AND D/WHITE PET/LANOLIN 5 GM PACKET TP SCH ×2 (09:00→21:57)
[2022-09-13] MEDS: FERROUS SULFATE - FOR SA ONLY 330 MG/7.5 ML UDC GT SCH ×3 (09:00→16:47)
[2022-09-13] MEDS: CHLORHEXIDINE GLUCONATE 15 ML UDC MM SCH ×2 (09:00→21:56)
[2022-09-13] MEDS: METFORMIN 850 MG TABLET GT SCH ×2 (09:00→16:47)
--- NOTE | 2022-09-13 13:00 | NUR ---
Seen and examined by LORENZO Rodgers, no new order given.
--- NOTE | 2022-09-13 14:41 | NUR ---
Monthly progress notes resident is passive unable to make needs known.Eyes open sometimes but does not track at this time non responsive to any stimulation.She received daily visit for reality orientation,music,tv,hand massage.audio tapes sensory stimulation.Continue to provide daily visit and activities.
[2022-09-13 19:31] VITALS: BP 124/74
[2022-09-13] MEDS: MULTIVIT W/MINERALS 1 TAB TABLET GT SCH (21:56)
[2022-09-13] MEDS: [UNRECOGNIZED DRUG - OTHER] SQ SCH (21:57)
[2022-09-13] MEDS: BASAGLAR SQ SCH (21:57)
[2022-09-14] MEDS: POLYVINYL ALCOHOL 15 ML BOTTLE OP SCH ×4 (00:40→18:04)
[2022-09-14] MEDS: IPRATROPIUM NEB FS 0.5 MG/2.5 ML AMPUL.NEB IH SCH ×4 (01:34→20:07)
[2022-09-14] MEDS: ALBUTEROL FS 2.5 MG/3 ML VIAL.NEB NEB SCH ×4 (01:34→20:07)
[2022-09-14] MEDS: GLUCERNA 1.2 1,000 ML BOTTLE GT PRN (02:36)
[2022-09-14] MEDS: BLOOD SUGAR DIAGNOSTIC 1 EACH STRIP IN SCH ×2 (06:24→18:04)
[2022-09-14] MEDS: OMEPRAZOLE DR 20 MG GT SCH (06:24)
[2022-09-14 07:26] VITALS: BP 142/75
[2022-09-14] MEDS: HYDROGEN PEROXIDE 480 ML BOTTLE TP SCH ×2 (07:49→21:13)
[2022-09-14] MEDS: HYDROGEL DRESSING 90 GM TUBE TP SCH ×2 (09:00→21:59)
[2022-09-14] MEDS: ASCORBIC ACID 500 MG TABLET GT SCH ×2 (09:00→16:50)
[2022-09-14] MEDS: CHLORHEXIDINE GLUCONATE 15 ML UDC MM SCH ×2 (09:00→21:59)
[2022-09-14] MEDS: HEPARIN SODIUM, PORCINE 5000 UNITS/1 ML VIAL SQ SCH ×2 (09:00→21:59)
[2022-09-14] MEDS: FERROUS SULFATE - FOR SA ONLY 330 MG/7.5 ML UDC GT SCH ×3 (09:00→16:49)
[2022-09-14] MEDS: INDOMETHACIN 25 MG CAPSULE GT SCH ×2 (09:00→16:49)
[2022-09-14] MEDS: PROSTAT (PYXIS) 30 ML UDC GT SCH (09:00)
[2022-09-14] MEDS: BACLOFEN (10 MG) 10 MG TABLET GT SCH ×2 (09:00→21:58)
[2022-09-14] MEDS: TRIAMCINOLONE ACETONIDE 0.1% CR 15 GM TUBE TP SCH ×2 (09:00→21:59)
[2022-09-14] MEDS: ZINC SULFATE 220 MG CAPSULE GT SCH (09:00)
[2022-09-14] MEDS: BETHANECHOL CHLORIDE (10 MG) 10 MG TABLET GT SCH ×3 (09:00→16:50)
[2022-09-14] MEDS: VITS A AND D/WHITE PET/LANOLIN 5 GM PACKET TP SCH ×2 (09:00→21:59)
[2022-09-14] MEDS: LEVETIRACETAM SOL (5 ML) 100 MG/ML UDC GT SCH ×2 (09:00→21:58)
[2022-09-14] MEDS: DOCUSATE SODIUM LIQ 100 MG/10 ML UDC GT SCH (09:00)
[2022-09-14] MEDS: METFORMIN 850 MG TABLET GT SCH ×2 (09:00→16:49)
[2022-09-14 13:27] VITALS: BP 132/67
[2022-09-14] MEDS: [UNRECOGNIZED DRUG - OTHER] SQ PRN (18:06)
[2022-09-14 19:26] VITALS: BP 116/78
[2022-09-14] MEDS: MULTIVIT W/MINERALS 1 TAB TABLET GT SCH (21:59)
[2022-09-14] MEDS: BASAGLAR SQ SCH (22:00)
[2022-09-14] MEDS: [UNRECOGNIZED DRUG - OTHER] SQ SCH (22:00)
[2022-09-15] MEDS: ALBUTEROL FS 2.5 MG/3 ML VIAL.NEB NEB SCH ×4 (01:26→19:51)
[2022-09-15] MEDS: IPRATROPIUM NEB FS 0.5 MG/2.5 ML AMPUL.NEB IH SCH ×4 (01:26→19:51)
[2022-09-15] MEDS: BLOOD SUGAR DIAGNOSTIC 1 EACH STRIP IN SCH ×2 (05:49→18:12)
[2022-09-15] MEDS: OMEPRAZOLE DR 20 MG GT SCH (05:49)
[2022-09-15] MEDS: POLYVINYL ALCOHOL 15 ML BOTTLE OP SCH ×4 (05:50→18:12)
[2022-09-15 07:52] VITALS: BP 115/66
[2022-09-15] MEDS: FERROUS SULFATE - FOR SA ONLY 330 MG/7.5 ML UDC GT SCH ×3 (09:10→17:00)
[2022-09-15] MEDS: METFORMIN 850 MG TABLET GT SCH ×2 (09:10→17:00)
[2022-09-15] MEDS: ASCORBIC ACID 500 MG TABLET GT SCH ×2 (09:10→17:00)
[2022-09-15] MEDS: HEPARIN SODIUM, PORCINE 5000 UNITS/1 ML VIAL SQ SCH ×2 (09:10→21:27)
[2022-09-15] MEDS: LEVETIRACETAM SOL (5 ML) 100 MG/ML UDC GT SCH ×2 (09:10→21:27)
[2022-09-15] MEDS: INDOMETHACIN 25 MG CAPSULE GT SCH ×2 (09:10→17:00)
[2022-09-15] MEDS: BETHANECHOL CHLORIDE (10 MG) 10 MG TABLET GT SCH ×3 (09:10→17:00)
[2022-09-15] MEDS: ZINC SULFATE 220 MG CAPSULE GT SCH (09:10)
[2022-09-15] MEDS: DOCUSATE SODIUM LIQ 100 MG/10 ML UDC GT SCH (09:10)
[2022-09-15] MEDS: CHLORHEXIDINE GLUCONATE 15 ML UDC MM SCH ×2 (09:10→21:27)
[2022-09-15] MEDS: PROSTAT (PYXIS) 30 ML UDC GT SCH (09:10)
[2022-09-15] MEDS: BACLOFEN (10 MG) 10 MG TABLET GT SCH ×2 (09:10→21:27)
[2022-09-15] MEDS: HYDROGEL DRESSING 90 GM TUBE TP SCH ×2 (09:11→21:27)
[2022-09-15] MEDS: TRIAMCINOLONE ACETONIDE 0.1% CR 15 GM TUBE TP SCH ×2 (09:11→21:27)
[2022-09-15] MEDS: VITS A AND D/WHITE PET/LANOLIN 5 GM PACKET TP SCH ×2 (09:11→21:27)
[2022-09-15] MEDS: HYDROGEN PEROXIDE 480 ML BOTTLE TP SCH ×2 (09:32→19:51)
[2022-09-15 12:18] VITALS: BP 121/66
[2022-09-15] MEDS: GLUCERNA 1.2 1,000 ML BOTTLE GT PRN (13:01)
[2022-09-15] MEDS: [UNRECOGNIZED DRUG - OTHER] SQ PRN (18:13)
[2022-09-15 19:21] VITALS: BP 121/78
[2022-09-15] MEDS: MULTIVIT W/MINERALS 1 TAB TABLET GT SCH (21:27)
[2022-09-15] MEDS: BASAGLAR SQ SCH (21:28)
[2022-09-15] MEDS: [UNRECOGNIZED DRUG - OTHER] SQ SCH (21:28)
[2022-09-16] MEDS: POLYVINYL ALCOHOL 15 ML BOTTLE OP SCH ×4 (00:58→17:19)
[2022-09-16] MEDS: IPRATROPIUM NEB FS 0.5 MG/2.5 ML AMPUL.NEB IH SCH ×4 (01:23→20:14)
[2022-09-16] MEDS: ALBUTEROL FS 2.5 MG/3 ML VIAL.NEB NEB SCH ×4 (01:23→20:14)
[2022-09-16] MEDS: BLOOD SUGAR DIAGNOSTIC 1 EACH STRIP IN SCH ×2 (05:26→17:27)
[2022-09-16] MEDS: OMEPRAZOLE DR 20 MG GT SCH (05:26)
[2022-09-16] MEDS: [UNRECOGNIZED DRUG - OTHER] SQ PRN ×2 (05:27→17:27)
[2022-09-16 07:41] VITALS: BP 120/82
[2022-09-16] MEDS: HYDROGEN PEROXIDE 480 ML BOTTLE TP SCH ×2 (08:59→20:14)
[2022-09-16] MEDS: DOCUSATE SODIUM LIQ 100 MG/10 ML UDC GT SCH (09:51)
[2022-09-16] MEDS: METFORMIN 850 MG TABLET GT SCH ×2 (09:51→17:19)
[2022-09-16] MEDS: HEPARIN SODIUM, PORCINE 5000 UNITS/1 ML VIAL SQ SCH ×2 (09:51→21:45)
[2022-09-16] MEDS: INDOMETHACIN 25 MG CAPSULE GT SCH ×2 (09:51→17:19)
[2022-09-16] MEDS: PROSTAT (PYXIS) 30 ML UDC GT SCH (09:51)
[2022-09-16] MEDS: LEVETIRACETAM SOL (5 ML) 100 MG/ML UDC GT SCH ×2 (09:51→21:45)
[2022-09-16] MEDS: ZINC SULFATE 220 MG CAPSULE GT SCH (09:51)
[2022-09-16] MEDS: BACLOFEN (10 MG) 10 MG TABLET GT SCH ×2 (09:51→21:45)
[2022-09-16] MEDS: ASCORBIC ACID 500 MG TABLET GT SCH ×2 (09:51→17:19)
[2022-09-16] MEDS: BETHANECHOL CHLORIDE (10 MG) 10 MG TABLET GT SCH ×3 (09:51→17:19)
[2022-09-16] MEDS: FERROUS SULFATE - FOR SA ONLY 330 MG/7.5 ML UDC GT SCH ×3 (09:51→17:19)
[2022-09-16] MEDS: CHLORHEXIDINE GLUCONATE 15 ML UDC MM SCH ×2 (09:51→21:45)
[2022-09-16] MEDS: VITS A AND D/WHITE PET/LANOLIN 5 GM PACKET TP SCH ×2 (09:52→21:45)
[2022-09-16] MEDS: TRIAMCINOLONE ACETONIDE 0.1% CR 15 GM TUBE TP SCH ×2 (09:52→21:45)
[2022-09-16] MEDS: HYDROGEL DRESSING 90 GM TUBE TP SCH ×2 (09:52→21:45)
[2022-09-16 12:16] VITALS: BP 118/76
[2022-09-16] MEDS: GLUCERNA 1.2 1,000 ML BOTTLE GT PRN (18:06)
[2022-09-16 19:34] VITALS: BP 111/80
[2022-09-16] MEDS: MULTIVIT W/MINERALS 1 TAB TABLET GT SCH (21:45)
[2022-09-16] MEDS: [UNRECOGNIZED DRUG - OTHER] SQ SCH (21:46)
[2022-09-16] MEDS: BASAGLAR SQ SCH (21:46)
[2022-09-17] MEDS: POLYVINYL ALCOHOL 15 ML BOTTLE OP SCH ×4 (00:28→18:06)
[2022-09-17 00:30] VITALS: BP 116/80
[2022-09-17] MEDS: IPRATROPIUM NEB FS 0.5 MG/2.5 ML AMPUL.NEB IH SCH ×4 (02:20→20:26)
[2022-09-17] MEDS: ALBUTEROL FS 2.5 MG/3 ML VIAL.NEB NEB SCH ×4 (02:20→20:26)
[2022-09-17] MEDS: OMEPRAZOLE DR 20 MG GT SCH (05:24)
[2022-09-17] MEDS: BLOOD SUGAR DIAGNOSTIC 1 EACH STRIP IN SCH ×2 (05:24→18:06)
[2022-09-17] MEDS: [UNRECOGNIZED DRUG - OTHER] SQ PRN ×2 (05:25→18:07)
[2022-09-17 07:31] VITALS: BP 122/73
[2022-09-17] MEDS: HYDROGEN PEROXIDE 480 ML BOTTLE TP SCH ×2 (09:28→20:26)
[2022-09-17] MEDS: DOCUSATE SODIUM LIQ 100 MG/10 ML UDC GT SCH (09:35)
[2022-09-17] MEDS: ASCORBIC ACID 500 MG TABLET GT SCH ×2 (09:35→17:41)
[2022-09-17] MEDS: BACLOFEN (10 MG) 10 MG TABLET GT SCH ×2 (09:35→21:38)
[2022-09-17] MEDS: LEVETIRACETAM SOL (5 ML) 100 MG/ML UDC GT SCH ×2 (09:35→21:38)
[2022-09-17] MEDS: INDOMETHACIN 25 MG CAPSULE GT SCH ×2 (09:35→17:41)
[2022-09-17] MEDS: METFORMIN 850 MG TABLET GT SCH ×2 (09:35→17:41)
[2022-09-17] MEDS: CHLORHEXIDINE GLUCONATE 15 ML UDC MM SCH ×2 (09:35→21:39)
[2022-09-17] MEDS: FERROUS SULFATE - FOR SA ONLY 330 MG/7.5 ML UDC GT SCH ×3 (09:35→17:41)
[2022-09-17] MEDS: ZINC SULFATE 220 MG CAPSULE GT SCH (09:35)
[2022-09-17] MEDS: BETHANECHOL CHLORIDE (10 MG) 10 MG TABLET GT SCH ×3 (09:35→17:41)
[2022-09-17] MEDS: PROSTAT (PYXIS) 30 ML UDC GT SCH (09:35)
[2022-09-17] MEDS: HYDROGEL DRESSING 90 GM TUBE TP SCH ×2 (09:36→21:39)
[2022-09-17] MEDS: HEPARIN SODIUM, PORCINE 5000 UNITS/1 ML VIAL SQ SCH ×2 (09:36→21:39)
[2022-09-17] MEDS: VITS A AND D/WHITE PET/LANOLIN 5 GM PACKET TP SCH ×2 (09:36→21:39)
[2022-09-17] MEDS: TRIAMCINOLONE ACETONIDE 0.1% CR 15 GM TUBE TP SCH ×2 (09:36→21:39)
[2022-09-17 12:17] VITALS: BP 127/69
[2022-09-17 20:57] VITALS: BP 121/80
[2022-09-17] MEDS: MULTIVIT W/MINERALS 1 TAB TABLET GT SCH (21:38)
[2022-09-17] MEDS: [UNRECOGNIZED DRUG - OTHER] SQ SCH (21:41)
[2022-09-17] MEDS: BASAGLAR SQ SCH (21:41)
[2022-09-18 00:18] VITALS: BP 120/78
[2022-09-18] MEDS: POLYVINYL ALCOHOL 15 ML BOTTLE OP SCH ×5 (00:37→23:55)
[2022-09-18] MEDS: ALBUTEROL FS 2.5 MG/3 ML VIAL.NEB NEB SCH ×4 (02:14→20:23)
[2022-09-18] MEDS: IPRATROPIUM NEB FS 0.5 MG/2.5 ML AMPUL.NEB IH SCH ×4 (02:14→20:23)
[2022-09-18] MEDS: OMEPRAZOLE DR 20 MG GT SCH (05:58)
[2022-09-18] MEDS: BLOOD SUGAR DIAGNOSTIC 1 EACH STRIP IN SCH ×2 (05:58→17:35)
[2022-09-18] MEDS: GLUCERNA 1.2 1,000 ML BOTTLE GT PRN (05:59)
[2022-09-18] MEDS: [UNRECOGNIZED DRUG - OTHER] SQ PRN ×2 (05:59→17:38)
[2022-09-18 07:18] VITALS: BP 117/77
[2022-09-18] MEDS: DOCUSATE SODIUM LIQ 100 MG/10 ML UDC GT SCH (08:36)
[2022-09-18] MEDS: BACLOFEN (10 MG) 10 MG TABLET GT SCH ×2 (08:36→20:26)
[2022-09-18] MEDS: METFORMIN 850 MG TABLET GT SCH ×2 (08:36→16:35)
[2022-09-18] MEDS: FERROUS SULFATE - FOR SA ONLY 330 MG/7.5 ML UDC GT SCH ×3 (08:36→16:35)
[2022-09-18] MEDS: LEVETIRACETAM SOL (5 ML) 100 MG/ML UDC GT SCH ×2 (08:36→20:26)
[2022-09-18] MEDS: ASCORBIC ACID 500 MG TABLET GT SCH ×2 (08:36→16:35)
[2022-09-18] MEDS: ZINC SULFATE 220 MG CAPSULE GT SCH (08:36)
[2022-09-18] MEDS: INDOMETHACIN 25 MG CAPSULE GT SCH ×2 (08:36→16:35)
[2022-09-18] MEDS: BETHANECHOL CHLORIDE (10 MG) 10 MG TABLET GT SCH ×3 (08:36→16:35)
[2022-09-18] MEDS: PROSTAT (PYXIS) 30 ML UDC GT SCH (08:36)
[2022-09-18] MEDS: HEPARIN SODIUM, PORCINE 5000 UNITS/1 ML VIAL SQ SCH ×2 (08:37→20:26)
[2022-09-18] MEDS: CHLORHEXIDINE GLUCONATE 15 ML UDC MM SCH ×2 (08:37→20:26)
[2022-09-18] MEDS: VITS A AND D/WHITE PET/LANOLIN 5 GM PACKET TP SCH ×2 (08:38→20:27)
[2022-09-18] MEDS: HYDROGEL DRESSING 90 GM TUBE TP SCH ×2 (08:38→20:27)
[2022-09-18] MEDS: TRIAMCINOLONE ACETONIDE 0.1% CR 15 GM TUBE TP SCH (08:38)
[2022-09-18] MEDS: HYDROGEN PEROXIDE 480 ML BOTTLE TP SCH ×2 (09:12→20:23)
[2022-09-18 19:28] VITALS: BP 129/76
[2022-09-18] MEDS: MULTIVIT W/MINERALS 1 TAB TABLET GT SCH (20:26)
[2022-09-18] MEDS: BASAGLAR SQ SCH (21:00)
[2022-09-18] MEDS: [UNRECOGNIZED DRUG - OTHER] SQ SCH (21:00)
[2022-09-19 00:04] VITALS: BP 128/72
[2022-09-19] MEDS: IPRATROPIUM NEB FS 0.5 MG/2.5 ML AMPUL.NEB IH SCH ×4 (02:25→19:49)
[2022-09-19] MEDS: ALBUTEROL FS 2.5 MG/3 ML VIAL.NEB NEB SCH ×4 (02:25→19:49)
[2022-09-19] MEDS: BLOOD SUGAR DIAGNOSTIC 1 EACH STRIP IN SCH ×2 (05:09→17:14)
[2022-09-19] MEDS: OMEPRAZOLE DR 20 MG GT SCH (05:09)
[2022-09-19] MEDS: POLYVINYL ALCOHOL 15 ML BOTTLE OP SCH ×3 (05:09→17:13)
[2022-09-19] MEDS: [UNRECOGNIZED DRUG - OTHER] SQ PRN (05:09)
[2022-09-19 07:17] VITALS: BP_SYST 117; BP_DIAS 60; BP_DIAS 78
[2022-09-19] MEDS: HYDROGEN PEROXIDE 480 ML BOTTLE TP SCH ×2 (09:06→21:07)
[2022-09-19] MEDS: BETHANECHOL CHLORIDE (10 MG) 10 MG TABLET GT SCH ×3 (09:15→16:29)
[2022-09-19] MEDS: METFORMIN 850 MG TABLET GT SCH ×2 (09:15→16:29)
[2022-09-19] MEDS: PROSTAT (PYXIS) 30 ML UDC GT SCH (09:15)
[2022-09-19] MEDS: FERROUS SULFATE - FOR SA ONLY 330 MG/7.5 ML UDC GT SCH ×3 (09:15→16:29)
[2022-09-19] MEDS: CHLORHEXIDINE GLUCONATE 15 ML UDC MM SCH ×2 (09:15→20:06)
[2022-09-19] MEDS: BACLOFEN (10 MG) 10 MG TABLET GT SCH ×2 (09:15→20:06)
[2022-09-19] MEDS: HEPARIN SODIUM, PORCINE 5000 UNITS/1 ML VIAL SQ SCH ×2 (09:15→20:07)
[2022-09-19] MEDS: INDOMETHACIN 25 MG CAPSULE GT SCH ×2 (09:15→16:29)
[2022-09-19] MEDS: ZINC SULFATE 220 MG CAPSULE GT SCH (09:15)
[2022-09-19] MEDS: DOCUSATE SODIUM LIQ 100 MG/10 ML UDC GT SCH (09:15)
[2022-09-19] MEDS: ASCORBIC ACID 500 MG TABLET GT SCH ×2 (09:15→16:29)
[2022-09-19] MEDS: LEVETIRACETAM SOL (5 ML) 100 MG/ML UDC GT SCH ×2 (09:15→20:06)
[2022-09-19] MEDS: VITS A AND D/WHITE PET/LANOLIN 5 GM PACKET TP SCH ×2 (09:16→20:08)
[2022-09-19] MEDS: HYDROGEL DRESSING 90 GM TUBE TP SCH ×2 (09:16→20:08)
[2022-09-19] MEDS: GLUCERNA 1.2 1,000 ML BOTTLE GT PRN (16:26)
[2022-09-19 19:25] VITALS: BP 124/71
[2022-09-19] MEDS: MULTIVIT W/MINERALS 1 TAB TABLET GT SCH (20:06)
[2022-09-19] MEDS: BASAGLAR SQ SCH (21:21)
[2022-09-19] MEDS: [UNRECOGNIZED DRUG - OTHER] SQ SCH (21:21)
[2022-09-20] MEDS: POLYVINYL ALCOHOL 15 ML BOTTLE OP SCH ×5 (00:20→23:14)
[2022-09-20] MEDS: IPRATROPIUM NEB FS 0.5 MG/2.5 ML AMPUL.NEB IH SCH ×4 (01:33→19:54)
[2022-09-20] MEDS: ALBUTEROL FS 2.5 MG/3 ML VIAL.NEB NEB SCH ×4 (01:33→19:54)
[2022-09-20] MEDS: OMEPRAZOLE DR 20 MG GT SCH (05:01)
[2022-09-20] MEDS: [UNRECOGNIZED DRUG - OTHER] SQ PRN ×2 (05:02→18:22)
[2022-09-20] MEDS: BLOOD SUGAR DIAGNOSTIC 1 EACH STRIP IN SCH ×2 (05:02→18:20)
[2022-09-20 07:32] VITALS: BP 136/71
[2022-09-20] MEDS: HYDROGEN PEROXIDE 480 ML BOTTLE TP SCH ×2 (08:15→21:07)
[2022-09-20] MEDS: LEVETIRACETAM SOL (5 ML) 100 MG/ML UDC GT SCH ×2 (09:45→20:02)
[2022-09-20] MEDS: INDOMETHACIN 25 MG CAPSULE GT SCH ×2 (09:45→17:13)
[2022-09-20] MEDS: FERROUS SULFATE - FOR SA ONLY 330 MG/7.5 ML UDC GT SCH ×3 (09:45→17:13)
[2022-09-20] MEDS: DOCUSATE SODIUM LIQ 100 MG/10 ML UDC GT SCH (09:45)
[2022-09-20] MEDS: METFORMIN 850 MG TABLET GT SCH ×2 (09:45→17:13)
[2022-09-20] MEDS: BETHANECHOL CHLORIDE (10 MG) 10 MG TABLET GT SCH ×3 (09:46→17:13)
[2022-09-20] MEDS: CHLORHEXIDINE GLUCONATE 15 ML UDC MM SCH ×2 (09:46→20:03)
[2022-09-20] MEDS: PROSTAT (PYXIS) 30 ML UDC GT SCH (09:46)
[2022-09-20] MEDS: ASCORBIC ACID 500 MG TABLET GT SCH ×2 (09:46→17:13)
[2022-09-20] MEDS: BACLOFEN (10 MG) 10 MG TABLET GT SCH ×2 (09:46→20:03)
[2022-09-20] MEDS: ZINC SULFATE 220 MG CAPSULE GT SCH (09:46)
[2022-09-20] MEDS: VITS A AND D/WHITE PET/LANOLIN 5 GM PACKET TP SCH ×2 (09:47→20:05)
[2022-09-20] MEDS: HYDROGEL DRESSING 90 GM TUBE TP SCH ×2 (09:47→20:05)
[2022-09-20] MEDS: HEPARIN SODIUM, PORCINE 5000 UNITS/1 ML VIAL SQ SCH ×2 (09:47→20:05)
[2022-09-20 11:55] VITALS: BP 125/79
--- NOTE | 2022-09-20 14:54 | NUR ---
Monthly Progress Note: Resident on activity program was seen and sensory stimulation was provided. Hand Massage, Books on Tape , Grooming, Easy, Classical and soothing Sounds Music. Movies like The Sea Beast , The Fall and Green Book. these activities will continue as needed.
[2022-09-20] MEDS: GLUCERNA 1.2 1,000 ML BOTTLE GT PRN (18:51)
[2022-09-20] MEDS: MULTIVIT W/MINERALS 1 TAB TABLET GT SCH (20:03)
[2022-09-20 20:08] VITALS: BP 128/73
[2022-09-20] MEDS: BASAGLAR SQ SCH (21:16)
[2022-09-20] MEDS: [UNRECOGNIZED DRUG - OTHER] SQ SCH (21:16)
[2022-09-21] MEDS: ALBUTEROL FS 2.5 MG/3 ML VIAL.NEB NEB SCH ×4 (01:33→19:54)
[2022-09-21] MEDS: IPRATROPIUM NEB FS 0.5 MG/2.5 ML AMPUL.NEB IH SCH ×4 (01:33→19:54)
[2022-09-21] MEDS: POLYVINYL ALCOHOL 15 ML BOTTLE OP SCH ×4 (05:04→23:20)
[2022-09-21] MEDS: OMEPRAZOLE DR 20 MG GT SCH (05:04)
[2022-09-21] MEDS: BLOOD SUGAR DIAGNOSTIC 1 EACH STRIP IN SCH ×2 (05:04→17:36)
[2022-09-21] MEDS: [UNRECOGNIZED DRUG - OTHER] SQ PRN ×2 (05:05→17:37)
[2022-09-21 07:28] VITALS: BP 136/75
[2022-09-21] MEDS: ZINC SULFATE 220 MG CAPSULE GT SCH (09:00)
[2022-09-21] MEDS: DOCUSATE SODIUM LIQ 100 MG/10 ML UDC GT SCH (09:00)
[2022-09-21] MEDS: CHLORHEXIDINE GLUCONATE 15 ML UDC MM SCH ×2 (09:00→20:27)
[2022-09-21] MEDS: INDOMETHACIN 25 MG CAPSULE GT SCH ×2 (09:00→16:47)
[2022-09-21] MEDS: FERROUS SULFATE - FOR SA ONLY 330 MG/7.5 ML UDC GT SCH ×3 (09:00→16:47)
[2022-09-21] MEDS: LEVETIRACETAM SOL (5 ML) 100 MG/ML UDC GT SCH ×2 (09:00→20:27)
[2022-09-21] MEDS: PROSTAT (PYXIS) 30 ML UDC GT SCH (09:00)
[2022-09-21] MEDS: HYDROGEL DRESSING 90 GM TUBE TP SCH ×2 (09:00→20:27)
[2022-09-21] MEDS: VITS A AND D/WHITE PET/LANOLIN 5 GM PACKET TP SCH ×2 (09:00→20:27)
[2022-09-21] MEDS: METFORMIN 850 MG TABLET GT SCH ×2 (09:00→16:47)
[2022-09-21] MEDS: HEPARIN SODIUM, PORCINE 5000 UNITS/1 ML VIAL SQ SCH ×2 (09:00→20:27)
[2022-09-21] MEDS: BACLOFEN (10 MG) 10 MG TABLET GT SCH ×2 (09:00→20:27)
[2022-09-21] MEDS: ASCORBIC ACID 500 MG TABLET GT SCH ×2 (09:00→16:48)
[2022-09-21] MEDS: BETHANECHOL CHLORIDE (10 MG) 10 MG TABLET GT SCH ×3 (09:00→16:48)
[2022-09-21] MEDS: HYDROGEN PEROXIDE 480 ML BOTTLE TP SCH ×2 (09:35→21:17)
[2022-09-21 11:50] VITALS: BP 120/78
[2022-09-21 19:19] VITALS: BP 120/77
[2022-09-21] MEDS: MULTIVIT W/MINERALS 1 TAB TABLET GT SCH (20:27)
[2022-09-21] MEDS: [UNRECOGNIZED DRUG - OTHER] SQ SCH (22:00)
[2022-09-21] MEDS: BASAGLAR SQ SCH (22:00)
[2022-09-22] MEDS: ALBUTEROL FS 2.5 MG/3 ML VIAL.NEB NEB SCH ×4 (01:23→20:05)
[2022-09-22] MEDS: IPRATROPIUM NEB FS 0.5 MG/2.5 ML AMPUL.NEB IH SCH ×4 (01:23→20:05)
[2022-09-22] MEDS: BLOOD SUGAR DIAGNOSTIC 1 EACH STRIP IN SCH ×2 (06:05→17:07)
[2022-09-22] MEDS: OMEPRAZOLE DR 20 MG GT SCH (06:05)
[2022-09-22] MEDS: GLUCERNA 1.2 1,000 ML BOTTLE GT PRN (06:05)
[2022-09-22] MEDS: POLYVINYL ALCOHOL 15 ML BOTTLE OP SCH ×4 (06:05→23:30)
[2022-09-22] MEDS: [UNRECOGNIZED DRUG - OTHER] SQ PRN ×2 (06:06→17:09)
[2022-09-22 07:16] VITALS: BP 119/63
[2022-09-22] MEDS: HYDROGEN PEROXIDE 480 ML BOTTLE TP SCH ×2 (08:44→20:05)
[2022-09-22] MEDS: ZINC SULFATE 220 MG CAPSULE GT SCH (09:00)
[2022-09-22] MEDS: PROSTAT (PYXIS) 30 ML UDC GT SCH (09:00)
[2022-09-22] MEDS: BETHANECHOL CHLORIDE (10 MG) 10 MG TABLET GT SCH ×3 (09:00→16:37)
[2022-09-22] MEDS: FERROUS SULFATE - FOR SA ONLY 330 MG/7.5 ML UDC GT SCH ×3 (09:00→16:37)
[2022-09-22] MEDS: CHLORHEXIDINE GLUCONATE 15 ML UDC MM SCH ×2 (09:00→21:28)
[2022-09-22] MEDS: LEVETIRACETAM SOL (5 ML) 100 MG/ML UDC GT SCH ×2 (09:00→21:27)
[2022-09-22] MEDS: HYDROGEL DRESSING 90 GM TUBE TP SCH ×2 (09:00→21:28)
[2022-09-22] MEDS: INDOMETHACIN 25 MG CAPSULE GT SCH ×2 (09:00→16:37)
[2022-09-22] MEDS: BACLOFEN (10 MG) 10 MG TABLET GT SCH ×2 (09:00→21:28)
[2022-09-22] MEDS: METFORMIN 850 MG TABLET GT SCH ×2 (09:00→16:37)
[2022-09-22] MEDS: ASCORBIC ACID 500 MG TABLET GT SCH ×2 (09:00→16:37)
[2022-09-22] MEDS: DOCUSATE SODIUM LIQ 100 MG/10 ML UDC GT SCH (09:00)
[2022-09-22] MEDS: VITS A AND D/WHITE PET/LANOLIN 5 GM PACKET TP SCH ×2 (09:00→21:28)
[2022-09-22] MEDS: HEPARIN SODIUM, PORCINE 5000 UNITS/1 ML VIAL SQ SCH ×2 (09:00→21:28)
[2022-09-22 20:53] VITALS: BP 119/75
[2022-09-22] MEDS: MULTIVIT W/MINERALS 1 TAB TABLET GT SCH (21:28)
[2022-09-22] MEDS: BASAGLAR SQ SCH (21:29)
[2022-09-22] MEDS: [UNRECOGNIZED DRUG - OTHER] SQ SCH (21:29)
[2022-09-23 00:37] VITALS: BP 116/72
[2022-09-23] MEDS: IPRATROPIUM NEB FS 0.5 MG/2.5 ML AMPUL.NEB IH SCH ×4 (02:21→20:21)
[2022-09-23] MEDS: ALBUTEROL FS 2.5 MG/3 ML VIAL.NEB NEB SCH ×4 (02:21→20:21)
[2022-09-23] MEDS: OMEPRAZOLE DR 20 MG GT SCH (05:30)
[2022-09-23] MEDS: BLOOD SUGAR DIAGNOSTIC 1 EACH STRIP IN SCH ×2 (05:30→17:25)
[2022-09-23] MEDS: POLYVINYL ALCOHOL 15 ML BOTTLE OP SCH ×3 (05:31→17:26)
[2022-09-23] MEDS: [UNRECOGNIZED DRUG - OTHER] SQ PRN ×2 (05:32→17:26)
[2022-09-23 07:18] VITALS: BP 124/74
[2022-09-23] MEDS: HYDROGEN PEROXIDE 480 ML BOTTLE TP SCH ×2 (08:51→20:21)
[2022-09-23] MEDS: METFORMIN 850 MG TABLET GT SCH ×2 (08:59→17:25)
[2022-09-23] MEDS: BACLOFEN (10 MG) 10 MG TABLET GT SCH ×2 (08:59→21:19)
[2022-09-23] MEDS: DOCUSATE SODIUM LIQ 100 MG/10 ML UDC GT SCH (08:59)
[2022-09-23] MEDS: INDOMETHACIN 25 MG CAPSULE GT SCH ×2 (08:59→17:25)
[2022-09-23] MEDS: PROSTAT (PYXIS) 30 ML UDC GT SCH (08:59)
[2022-09-23] MEDS: FERROUS SULFATE - FOR SA ONLY 330 MG/7.5 ML UDC GT SCH ×3 (08:59→17:25)
[2022-09-23] MEDS: LEVETIRACETAM SOL (5 ML) 100 MG/ML UDC GT SCH ×2 (08:59→21:19)
[2022-09-23] MEDS: ZINC SULFATE 220 MG CAPSULE GT SCH (09:00)
[2022-09-23] MEDS: ASCORBIC ACID 500 MG TABLET GT SCH ×2 (09:00→17:25)
[2022-09-23] MEDS: CHLORHEXIDINE GLUCONATE 15 ML UDC MM SCH ×2 (09:00→21:19)
[2022-09-23] MEDS: BETHANECHOL CHLORIDE (10 MG) 10 MG TABLET GT SCH ×3 (09:00→17:25)
[2022-09-23] MEDS: HEPARIN SODIUM, PORCINE 5000 UNITS/1 ML VIAL SQ SCH ×2 (09:02→21:20)
[2022-09-23] MEDS: HYDROGEL DRESSING 90 GM TUBE TP SCH ×2 (09:03→21:20)
[2022-09-23] MEDS: VITS A AND D/WHITE PET/LANOLIN 5 GM PACKET TP SCH ×2 (09:03→21:20)
[2022-09-23 11:49] VITALS: BP 125/57
[2022-09-23] MEDS: GLUCERNA 1.2 1,000 ML BOTTLE GT PRN (12:45)
--- NOTE | 2022-09-23 13:45 | NUR ---
MDS: SW completed the SS portion of the Annual MDS. The patient is lethargic, non-communicative, ventilator dependent with trach and g-tube feeding (see appropriate disciplines notes). The pt. is DNR and the pt.s responsible constitution party is the pt.s Sister, Tosin Horvath [phone] who is involved in care plan. The patients last dental exam by Dr. Keys was on 07/03/2021. The patients last optometry exam by Dr. Sales was on 11/25/2017. Pt. is only eligible for follow up optometry apt. is medically necessary per insurance. The patients last podiatry visit by Dr. Cobos was on 09/08/2022.
[2022-09-23 19:35] VITALS: BP 127/76
[2022-09-23] MEDS: MULTIVIT W/MINERALS 1 TAB TABLET GT SCH (21:19)
[2022-09-23] MEDS: [UNRECOGNIZED DRUG - OTHER] SQ SCH (21:21)
[2022-09-23] MEDS: BASAGLAR SQ SCH (21:21)
[2022-09-24] MEDS: IPRATROPIUM NEB FS 0.5 MG/2.5 ML AMPUL.NEB IH SCH ×4 (02:14→20:26)
[2022-09-24] MEDS: ALBUTEROL FS 2.5 MG/3 ML VIAL.NEB NEB SCH ×4 (02:14→20:26)
[2022-09-24] MEDS: [UNRECOGNIZED DRUG - OTHER] SQ PRN (05:31)
[2022-09-24] MEDS: OMEPRAZOLE DR 20 MG GT SCH (05:31)
[2022-09-24] MEDS: BLOOD SUGAR DIAGNOSTIC 1 EACH STRIP IN SCH ×2 (05:31→17:31)
[2022-09-24] MEDS: POLYVINYL ALCOHOL 15 ML BOTTLE OP SCH ×4 (05:34→17:31)
[2022-09-24 07:18] VITALS: BP 129/78
[2022-09-24] MEDS: HYDROGEN PEROXIDE 480 ML BOTTLE TP SCH ×2 (08:37→20:26)
[2022-09-24] MEDS: FERROUS SULFATE - FOR SA ONLY 330 MG/7.5 ML UDC GT SCH ×3 (09:48→17:29)
[2022-09-24] MEDS: LEVETIRACETAM SOL (5 ML) 100 MG/ML UDC GT SCH ×2 (09:48→21:50)
[2022-09-24] MEDS: DOCUSATE SODIUM LIQ 100 MG/10 ML UDC GT SCH (09:48)
[2022-09-24] MEDS: PROSTAT (PYXIS) 30 ML UDC GT SCH (09:48)
[2022-09-24] MEDS: BACLOFEN (10 MG) 10 MG TABLET GT SCH ×2 (09:48→21:50)
[2022-09-24] MEDS: INDOMETHACIN 25 MG CAPSULE GT SCH ×2 (09:48→17:30)
[2022-09-24] MEDS: METFORMIN 850 MG TABLET GT SCH ×2 (09:48→17:30)
[2022-09-24] MEDS: ASCORBIC ACID 500 MG TABLET GT SCH ×2 (09:49→17:31)
[2022-09-24] MEDS: CHLORHEXIDINE GLUCONATE 15 ML UDC MM SCH ×2 (09:49→21:50)
[2022-09-24] MEDS: ZINC SULFATE 220 MG CAPSULE GT SCH (09:49)
[2022-09-24] MEDS: BETHANECHOL CHLORIDE (10 MG) 10 MG TABLET GT SCH ×3 (09:49→17:31)
[2022-09-24] MEDS: VITS A AND D/WHITE PET/LANOLIN 5 GM PACKET TP SCH ×2 (09:50→21:50)
[2022-09-24] MEDS: HEPARIN SODIUM, PORCINE 5000 UNITS/1 ML VIAL SQ SCH ×2 (09:50→21:52)
[2022-09-24 11:27] VITALS: BP 124/74
--- NOTE | 2022-09-24 11:40 | NUR ---
VISITATION GUIDELINES: ERVIN called the pt.'s sister, Tosin notifying family of the latest changes in visitation guidelines as recommended by [facility] Department of Public Health. ERVIN educated family that they still need to make apt. for visit, length of visit has been increased to 3 hours, and pt.'s will be screened for COVID-19 symptoms upon entry and not be allowed in if they are COVID positive, have any COVID symptoms, have been exposed to COVID positive person within the last 14 days. ERVIN educated families about latest physical distancing, PPE, face mask recommendation for visits.
[2022-09-24 19:07] VITALS: BP 128/85
[2022-09-24] MEDS: GLUCERNA 1.2 1,000 ML BOTTLE GT PRN (19:31)
[2022-09-24] MEDS: MULTIVIT W/MINERALS 1 TAB TABLET GT SCH (21:50)
[2022-09-24] MEDS: [UNRECOGNIZED DRUG - OTHER] SQ SCH (21:51)
[2022-09-24] MEDS: BASAGLAR SQ SCH (21:51)
[2022-09-25 00:09] VITALS: BP 117/71
[2022-09-25] MEDS: POLYVINYL ALCOHOL 15 ML BOTTLE OP SCH ×4 (00:35→17:07)
[2022-09-25] MEDS: IPRATROPIUM NEB FS 0.5 MG/2.5 ML AMPUL.NEB IH SCH ×4 (02:22→19:47)
[2022-09-25] MEDS: ALBUTEROL FS 2.5 MG/3 ML VIAL.NEB NEB SCH ×4 (02:22→19:47)
--- NOTE | 2022-09-25 05:48 | NUR ---
RT Pt recvd on ordered vent settings, trach is patent and secured. Neb tx given and pt karli well. No SOB or respiratory distress noted. Tracheal and oral suction PRN. SPo2 >92% maintained. Trach care done. Vent is plugged into red outlet with alarms on and audible. Spare trach and ambu at bedside.
[2022-09-25] MEDS: [UNRECOGNIZED DRUG - OTHER] SQ PRN ×2 (06:04→17:08)
[2022-09-25] MEDS: BLOOD SUGAR DIAGNOSTIC 1 EACH STRIP IN SCH ×2 (06:04→17:07)
[2022-09-25] MEDS: OMEPRAZOLE DR 20 MG GT SCH (06:04)
[2022-09-25 07:33] VITALS: BP 124/65
[2022-09-25] MEDS: DOCUSATE SODIUM LIQ 100 MG/10 ML UDC GT SCH (08:40)
[2022-09-25] MEDS: ZINC SULFATE 220 MG CAPSULE GT SCH (08:40)
[2022-09-25] MEDS: BETHANECHOL CHLORIDE (10 MG) 10 MG TABLET GT SCH ×3 (08:40→16:05)
[2022-09-25] MEDS: FERROUS SULFATE - FOR SA ONLY 330 MG/7.5 ML UDC GT SCH ×3 (08:40→16:05)
[2022-09-25] MEDS: METFORMIN 850 MG TABLET GT SCH ×2 (08:40→16:05)
[2022-09-25] MEDS: LEVETIRACETAM SOL (5 ML) 100 MG/ML UDC GT SCH ×2 (08:40→20:34)
[2022-09-25] MEDS: BACLOFEN (10 MG) 10 MG TABLET GT SCH ×2 (08:40→20:34)
[2022-09-25] MEDS: INDOMETHACIN 25 MG CAPSULE GT SCH ×2 (08:40→16:05)
[2022-09-25] MEDS: CHLORHEXIDINE GLUCONATE 15 ML UDC MM SCH ×2 (08:40→20:34)
[2022-09-25] MEDS: ASCORBIC ACID 500 MG TABLET GT SCH ×2 (08:40→16:05)
[2022-09-25] MEDS: PROSTAT (PYXIS) 30 ML UDC GT SCH (08:40)
[2022-09-25] MEDS: VITS A AND D/WHITE PET/LANOLIN 5 GM PACKET TP SCH ×2 (08:40→20:35)
[2022-09-25] MEDS: HEPARIN SODIUM, PORCINE 5000 UNITS/1 ML VIAL SQ SCH ×2 (08:42→20:34)
[2022-09-25] MEDS: HYDROGEN PEROXIDE 480 ML BOTTLE TP SCH ×2 (09:23→21:49)
[2022-09-25 12:13] VITALS: BP 126/68
[2022-09-25 19:39] VITALS: BP 118/76
[2022-09-25] MEDS: MULTIVIT W/MINERALS 1 TAB TABLET GT SCH (20:34)
[2022-09-25] MEDS: BASAGLAR SQ SCH (21:46)
[2022-09-25] MEDS: [UNRECOGNIZED DRUG - OTHER] SQ SCH (21:46)
[2022-09-25 23:19] VITALS: BP 118/65
[2022-09-26] MEDS: POLYVINYL ALCOHOL 15 ML BOTTLE OP SCH ×5 (00:46→23:27)
[2022-09-26] MEDS: IPRATROPIUM NEB FS 0.5 MG/2.5 ML AMPUL.NEB IH SCH ×4 (01:37→19:03)
[2022-09-26] MEDS: ALBUTEROL FS 2.5 MG/3 ML VIAL.NEB NEB SCH ×4 (01:37→19:03)
[2022-09-26] MEDS: BLOOD SUGAR DIAGNOSTIC 1 EACH STRIP IN SCH ×2 (05:40→18:14)
[2022-09-26] MEDS: OMEPRAZOLE DR 20 MG GT SCH (05:40)
[2022-09-26] MEDS: GLUCERNA 1.2 1,000 ML BOTTLE GT PRN (05:40)
[2022-09-26] MEDS: [UNRECOGNIZED DRUG - OTHER] SQ PRN (05:40)
[2022-09-26 07:46] VITALS: BP 124/68
[2022-09-26] MEDS: HYDROGEN PEROXIDE 480 ML BOTTLE TP SCH ×2 (08:17→20:22)
[2022-09-26] MEDS: LEVETIRACETAM SOL (5 ML) 100 MG/ML UDC GT SCH ×2 (09:00→21:38)
[2022-09-26] MEDS: DOCUSATE SODIUM LIQ 100 MG/10 ML UDC GT SCH (09:00)
[2022-09-26] MEDS: HEPARIN SODIUM, PORCINE 5000 UNITS/1 ML VIAL SQ SCH ×2 (09:00→21:38)
[2022-09-26] MEDS: BETHANECHOL CHLORIDE (10 MG) 10 MG TABLET GT SCH ×3 (09:00→17:56)
[2022-09-26] MEDS: FERROUS SULFATE - FOR SA ONLY 330 MG/7.5 ML UDC GT SCH ×3 (09:00→17:56)
[2022-09-26] MEDS: ASCORBIC ACID 500 MG TABLET GT SCH ×2 (09:00→17:56)
[2022-09-26] MEDS: ZINC SULFATE 220 MG CAPSULE GT SCH (09:00)
[2022-09-26] MEDS: CHLORHEXIDINE GLUCONATE 15 ML UDC MM SCH ×2 (09:00→21:38)
[2022-09-26] MEDS: BACLOFEN (10 MG) 10 MG TABLET GT SCH ×2 (09:00→21:38)
[2022-09-26] MEDS: METFORMIN 850 MG TABLET GT SCH ×2 (09:00→17:56)
[2022-09-26] MEDS: INDOMETHACIN 25 MG CAPSULE GT SCH ×2 (09:00→17:56)
[2022-09-26] MEDS: PROSTAT (PYXIS) 30 ML UDC GT SCH (09:00)
[2022-09-26] MEDS: VITS A AND D/WHITE PET/LANOLIN 5 GM PACKET TP SCH ×2 (09:00→21:39)
[2022-09-26 19:59] VITALS: BP 126/84
[2022-09-26] MEDS: HYDROGEL DRESSING 90 GM TUBE TP SCH (21:38)
[2022-09-26] MEDS: MULTIVIT W/MINERALS 1 TAB TABLET GT SCH (21:38)
[2022-09-26] MEDS: [UNRECOGNIZED DRUG - OTHER] SQ SCH (21:39)
[2022-09-26] MEDS: BASAGLAR SQ SCH (21:39)
[2022-09-27] MEDS: IPRATROPIUM NEB FS 0.5 MG/2.5 ML AMPUL.NEB IH SCH ×4 (01:07→18:56)
[2022-09-27] MEDS: ALBUTEROL FS 2.5 MG/3 ML VIAL.NEB NEB SCH ×4 (01:07→18:56)
[2022-09-27 01:19] VITALS: BP 114/72
[2022-09-27] MEDS: OMEPRAZOLE DR 20 MG GT SCH (06:12)
[2022-09-27] MEDS: POLYVINYL ALCOHOL 15 ML BOTTLE OP SCH ×3 (06:12→17:45)
[2022-09-27] MEDS: BLOOD SUGAR DIAGNOSTIC 1 EACH STRIP IN SCH ×2 (06:12→18:00)
[2022-09-27] MEDS: HYDROGEN PEROXIDE 480 ML BOTTLE TP SCH ×2 (08:44→20:44)
[2022-09-27] MEDS: METFORMIN 850 MG TABLET GT SCH ×2 (08:50→17:44)
[2022-09-27] MEDS: FERROUS SULFATE - FOR SA ONLY 330 MG/7.5 ML UDC GT SCH ×3 (08:50→17:44)
[2022-09-27] MEDS: DOCUSATE SODIUM LIQ 100 MG/10 ML UDC GT SCH (08:50)
[2022-09-27] MEDS: INDOMETHACIN 25 MG CAPSULE GT SCH ×2 (08:51→17:44)
[2022-09-27] MEDS: LEVETIRACETAM SOL (5 ML) 100 MG/ML UDC GT SCH ×2 (08:52→21:27)
[2022-09-27] MEDS: BACLOFEN (10 MG) 10 MG TABLET GT SCH ×2 (08:52→21:27)
[2022-09-27] MEDS: ZINC SULFATE 220 MG CAPSULE GT SCH (08:54)
[2022-09-27] MEDS: BETHANECHOL CHLORIDE (10 MG) 10 MG TABLET GT SCH ×3 (08:54→17:44)
[2022-09-27] MEDS: CHLORHEXIDINE GLUCONATE 15 ML UDC MM SCH ×2 (08:54→21:27)
[2022-09-27] MEDS: ASCORBIC ACID 500 MG TABLET GT SCH ×2 (08:54→17:45)
[2022-09-27] MEDS: PROSTAT (PYXIS) 30 ML UDC GT SCH (08:54)
[2022-09-27] MEDS: HEPARIN SODIUM, PORCINE 5000 UNITS/1 ML VIAL SQ SCH ×2 (08:56→21:28)
[2022-09-27] MEDS: HYDROGEL DRESSING 90 GM TUBE TP SCH ×2 (08:57→21:28)
[2022-09-27] MEDS: VITS A AND D/WHITE PET/LANOLIN 5 GM PACKET TP SCH ×2 (08:57→21:28)
--- NOTE | 2022-09-27 17:30 | NUR ---
Seen and examined by LORENZO Rodgers and Dr. Dsouza no new order given.
[2022-09-27] MEDS: GLUCERNA 1.2 1,000 ML BOTTLE GT PRN (17:45)
[2022-09-27] MEDS: [UNRECOGNIZED DRUG - OTHER] SQ PRN (19:07)
[2022-09-27 20:29] VITALS: BP 124/82
[2022-09-27] MEDS: MULTIVIT W/MINERALS 1 TAB TABLET GT SCH (21:27)
[2022-09-27] MEDS: BASAGLAR SQ SCH (21:30)
[2022-09-27] MEDS: [UNRECOGNIZED DRUG - OTHER] SQ SCH (21:30)
[2022-09-28] MEDS: IPRATROPIUM NEB FS 0.5 MG/2.5 ML AMPUL.NEB IH SCH ×4 (00:45→19:58)
[2022-09-28] MEDS: ALBUTEROL FS 2.5 MG/3 ML VIAL.NEB NEB SCH ×4 (00:45→19:58)
[2022-09-28] MEDS: [UNRECOGNIZED DRUG - OTHER] SQ PRN ×2 (05:44→17:20)
[2022-09-28] MEDS: BLOOD SUGAR DIAGNOSTIC 1 EACH STRIP IN SCH ×2 (05:44→17:20)
[2022-09-28] MEDS: POLYVINYL ALCOHOL 15 ML BOTTLE OP SCH ×5 (05:44→23:47)
[2022-09-28] MEDS: OMEPRAZOLE DR 20 MG GT SCH (05:44)
[2022-09-28 07:11] VITALS: BP 116/77
[2022-09-28] MEDS: HYDROGEN PEROXIDE 480 ML BOTTLE TP SCH ×2 (09:00→20:42)
[2022-09-28] MEDS: CHLORHEXIDINE GLUCONATE 15 ML UDC MM SCH ×2 (09:00→20:03)
[2022-09-28] MEDS: INDOMETHACIN 25 MG CAPSULE GT SCH ×2 (09:00→16:59)
[2022-09-28] MEDS: PROSTAT (PYXIS) 30 ML UDC GT SCH (09:00)
[2022-09-28] MEDS: FERROUS SULFATE - FOR SA ONLY 330 MG/7.5 ML UDC GT SCH ×3 (09:00→16:59)
[2022-09-28] MEDS: METFORMIN 850 MG TABLET GT SCH ×2 (09:00→16:59)
[2022-09-28] MEDS: DOCUSATE SODIUM LIQ 100 MG/10 ML UDC GT SCH (09:00)
[2022-09-28] MEDS: BETHANECHOL CHLORIDE (10 MG) 10 MG TABLET GT SCH ×3 (09:00→16:59)
[2022-09-28] MEDS: HEPARIN SODIUM, PORCINE 5000 UNITS/1 ML VIAL SQ SCH ×2 (09:00→20:04)
[2022-09-28] MEDS: ZINC SULFATE 220 MG CAPSULE GT SCH (09:00)
[2022-09-28] MEDS: HYDROGEL DRESSING 90 GM TUBE TP SCH ×2 (09:00→20:04)
[2022-09-28] MEDS: VITS A AND D/WHITE PET/LANOLIN 5 GM PACKET TP SCH ×2 (09:00→20:04)
[2022-09-28] MEDS: LEVETIRACETAM SOL (5 ML) 100 MG/ML UDC GT SCH ×2 (09:00→20:03)
[2022-09-28] MEDS: BACLOFEN (10 MG) 10 MG TABLET GT SCH ×2 (09:00→20:03)
[2022-09-28] MEDS: ASCORBIC ACID 500 MG TABLET GT SCH ×2 (09:00→16:59)
[2022-09-28 13:40] VITALS: BP 104/68
[2022-09-28 19:43] VITALS: BP 122/70
[2022-09-28] MEDS: MULTIVIT W/MINERALS 1 TAB TABLET GT SCH (20:03)
[2022-09-28] MEDS: [UNRECOGNIZED DRUG - OTHER] SQ SCH (21:49)
[2022-09-28] MEDS: BASAGLAR SQ SCH (21:49)
[2022-09-29] MEDS: IPRATROPIUM NEB FS 0.5 MG/2.5 ML AMPUL.NEB IH SCH ×4 (01:45→20:22)
[2022-09-29] MEDS: ALBUTEROL FS 2.5 MG/3 ML VIAL.NEB NEB SCH ×4 (01:45→20:22)
[2022-09-29] MEDS: [UNRECOGNIZED DRUG - OTHER] SQ PRN ×2 (06:11→17:14)
[2022-09-29] MEDS: POLYVINYL ALCOHOL 15 ML BOTTLE OP SCH ×4 (06:11→23:27)
[2022-09-29] MEDS: BLOOD SUGAR DIAGNOSTIC 1 EACH STRIP IN SCH ×2 (06:11→17:14)
[2022-09-29] MEDS: OMEPRAZOLE DR 20 MG GT SCH (06:11)
[2022-09-29] MEDS: GLUCERNA 1.2 1,000 ML BOTTLE GT PRN (06:13)
[2022-09-29 07:25] VITALS: BP 118/66
[2022-09-29] MEDS: HYDROGEN PEROXIDE 480 ML BOTTLE TP SCH ×2 (09:28→20:22)
[2022-09-29] MEDS: BETHANECHOL CHLORIDE (10 MG) 10 MG TABLET GT SCH ×3 (09:40→16:55)
[2022-09-29] MEDS: ASCORBIC ACID 500 MG TABLET GT SCH ×2 (09:40→16:55)
[2022-09-29] MEDS: INDOMETHACIN 25 MG CAPSULE GT SCH ×2 (09:40→16:55)
[2022-09-29] MEDS: LEVETIRACETAM SOL (5 ML) 100 MG/ML UDC GT SCH ×2 (09:40→20:41)
[2022-09-29] MEDS: FERROUS SULFATE - FOR SA ONLY 330 MG/7.5 ML UDC GT SCH ×3 (09:40→16:55)
[2022-09-29] MEDS: BACLOFEN (10 MG) 10 MG TABLET GT SCH ×2 (09:40→20:41)
[2022-09-29] MEDS: PROSTAT (PYXIS) 30 ML UDC GT SCH (09:40)
[2022-09-29] MEDS: METFORMIN 850 MG TABLET GT SCH ×2 (09:40→16:55)
[2022-09-29] MEDS: DOCUSATE SODIUM LIQ 100 MG/10 ML UDC GT SCH (09:40)
[2022-09-29] MEDS: HYDROGEL DRESSING 90 GM TUBE TP SCH ×2 (09:41→20:42)
[2022-09-29] MEDS: ZINC SULFATE 220 MG CAPSULE GT SCH (09:41)
[2022-09-29] MEDS: VITS A AND D/WHITE PET/LANOLIN 5 GM PACKET TP SCH ×2 (09:41→20:42)
[2022-09-29] MEDS: HEPARIN SODIUM, PORCINE 5000 UNITS/1 ML VIAL SQ SCH ×2 (09:41→20:42)
[2022-09-29] MEDS: CHLORHEXIDINE GLUCONATE 15 ML UDC MM SCH ×2 (09:41→20:41)
[2022-09-29 12:01] VITALS: BP 115/67
[2022-09-29 19:40] VITALS: BP 118/76
[2022-09-29] MEDS: MULTIVIT W/MINERALS 1 TAB TABLET GT SCH (20:41)
[2022-09-29] MEDS: [UNRECOGNIZED DRUG - OTHER] SQ SCH (22:10)
[2022-09-29] MEDS: BASAGLAR SQ SCH (22:10)
[2022-09-30] MEDS: ALBUTEROL FS 2.5 MG/3 ML VIAL.NEB NEB SCH ×4 (01:47→20:22)
[2022-09-30] MEDS: IPRATROPIUM NEB FS 0.5 MG/2.5 ML AMPUL.NEB IH SCH ×4 (01:47→20:22)
[2022-09-30] MEDS: [UNRECOGNIZED DRUG - OTHER] SQ PRN ×2 (05:38→17:34)
[2022-09-30] MEDS: OMEPRAZOLE DR 20 MG GT SCH (05:38)
[2022-09-30] MEDS: POLYVINYL ALCOHOL 15 ML BOTTLE OP SCH ×4 (05:38→23:15)
[2022-09-30] MEDS: BLOOD SUGAR DIAGNOSTIC 1 EACH STRIP IN SCH ×2 (05:38→17:33)
[2022-09-30 07:16] VITALS: BP 115/70
[2022-09-30] MEDS: HYDROGEN PEROXIDE 480 ML BOTTLE TP SCH ×2 (08:44→20:22)
[2022-09-30] MEDS: CHLORHEXIDINE GLUCONATE 15 ML UDC MM SCH ×2 (09:54→20:06)
[2022-09-30] MEDS: LEVETIRACETAM SOL (5 ML) 100 MG/ML UDC GT SCH ×2 (09:54→20:06)
[2022-09-30] MEDS: METFORMIN 850 MG TABLET GT SCH ×2 (09:54→17:33)
[2022-09-30] MEDS: FERROUS SULFATE - FOR SA ONLY 330 MG/7.5 ML UDC GT SCH ×3 (09:54→17:33)
[2022-09-30] MEDS: ZINC SULFATE 220 MG CAPSULE GT SCH (09:54)
[2022-09-30] MEDS: HEPARIN SODIUM, PORCINE 5000 UNITS/1 ML VIAL SQ SCH ×2 (09:54→20:06)
[2022-09-30] MEDS: ASCORBIC ACID 500 MG TABLET GT SCH ×2 (09:54→17:33)
[2022-09-30] MEDS: DOCUSATE SODIUM LIQ 100 MG/10 ML UDC GT SCH (09:54)
[2022-09-30] MEDS: BACLOFEN (10 MG) 10 MG TABLET GT SCH ×2 (09:54→20:06)
[2022-09-30] MEDS: INDOMETHACIN 25 MG CAPSULE GT SCH ×2 (09:54→17:33)
[2022-09-30] MEDS: PROSTAT (PYXIS) 30 ML UDC GT SCH (09:54)
[2022-09-30] MEDS: BETHANECHOL CHLORIDE (10 MG) 10 MG TABLET GT SCH ×3 (09:54→17:33)
[2022-09-30] MEDS: VITS A AND D/WHITE PET/LANOLIN 5 GM PACKET TP SCH ×2 (09:55→20:07)
[2022-09-30] MEDS: HYDROGEL DRESSING 90 GM TUBE TP SCH ×2 (09:55→20:07)
[2022-09-30] MEDS: GLUCERNA 1.2 1,000 ML BOTTLE GT PRN (12:59)
[2022-09-30 19:26] VITALS: BP 122/81
[2022-09-30] MEDS: MULTIVIT W/MINERALS 1 TAB TABLET GT SCH (20:06)
[2022-09-30] MEDS: [UNRECOGNIZED DRUG - OTHER] SQ SCH (21:08)
[2022-09-30] MEDS: BASAGLAR SQ SCH (21:08)
[2022-10-01 00:08] VITALS: BP 119/74
[2022-10-01] MEDS: IPRATROPIUM NEB FS 0.5 MG/2.5 ML AMPUL.NEB IH SCH ×4 (02:29→20:13)
[2022-10-01] MEDS: ALBUTEROL FS 2.5 MG/3 ML VIAL.NEB NEB SCH ×4 (02:29→20:13)
[2022-10-01] MEDS: POLYVINYL ALCOHOL 15 ML BOTTLE OP SCH ×4 (05:31→23:36)
[2022-10-01] MEDS: [UNRECOGNIZED DRUG - OTHER] SQ PRN ×2 (05:31→18:19)
[2022-10-01] MEDS: OMEPRAZOLE DR 20 MG GT SCH (05:31)
[2022-10-01] MEDS: BLOOD SUGAR DIAGNOSTIC 1 EACH STRIP IN SCH ×2 (05:31→18:18)
[2022-10-01 07:34] VITALS: BP 113/73
[2022-10-01] MEDS: FERROUS SULFATE - FOR SA ONLY 330 MG/7.5 ML UDC GT SCH ×3 (09:16→17:27)
[2022-10-01] MEDS: DOCUSATE SODIUM LIQ 100 MG/10 ML UDC GT SCH (09:16)
[2022-10-01] MEDS: METFORMIN 850 MG TABLET GT SCH ×2 (09:16→17:27)
[2022-10-01] MEDS: INDOMETHACIN 25 MG CAPSULE GT SCH ×2 (09:16→17:27)
[2022-10-01] MEDS: BETHANECHOL CHLORIDE (10 MG) 10 MG TABLET GT SCH ×3 (09:17→17:27)
[2022-10-01] MEDS: PROSTAT (PYXIS) 30 ML UDC GT SCH (09:17)
[2022-10-01] MEDS: HYDROGEL DRESSING 90 GM TUBE TP SCH ×2 (09:17→21:19)
[2022-10-01] MEDS: CHLORHEXIDINE GLUCONATE 15 ML UDC MM SCH ×2 (09:17→21:18)
[2022-10-01] MEDS: VITS A AND D/WHITE PET/LANOLIN 5 GM PACKET TP SCH ×2 (09:17→21:19)
[2022-10-01] MEDS: HEPARIN SODIUM, PORCINE 5000 UNITS/1 ML VIAL SQ SCH ×2 (09:17→21:19)
[2022-10-01] MEDS: ASCORBIC ACID 500 MG TABLET GT SCH ×2 (09:17→17:27)
[2022-10-01] MEDS: BACLOFEN (10 MG) 10 MG TABLET GT SCH ×2 (09:17→21:18)
[2022-10-01] MEDS: LEVETIRACETAM SOL (5 ML) 100 MG/ML UDC GT SCH ×2 (09:17→21:18)
[2022-10-01] MEDS: ZINC SULFATE 220 MG CAPSULE GT SCH (09:17)
[2022-10-01] MEDS: HYDROGEN PEROXIDE 480 ML BOTTLE TP SCH ×2 (09:28→20:13)
[2022-10-01] MEDS: GLUCERNA 1.2 1,000 ML BOTTLE GT PRN (17:29)
[2022-10-01 20:01] VITALS: BP 118/70
[2022-10-01] MEDS: MULTIVIT W/MINERALS 1 TAB TABLET GT SCH (21:18)
[2022-10-01] MEDS: BASAGLAR SQ SCH (21:20)
[2022-10-01] MEDS: [UNRECOGNIZED DRUG - OTHER] SQ SCH (21:20)
[2022-10-02 00:49] VITALS: BP 122/65
[2022-10-02] MEDS: ALBUTEROL FS 2.5 MG/3 ML VIAL.NEB NEB SCH ×4 (02:28→19:54)
[2022-10-02] MEDS: IPRATROPIUM NEB FS 0.5 MG/2.5 ML AMPUL.NEB IH SCH ×4 (02:28→19:54)
[2022-10-02] MEDS: BLOOD SUGAR DIAGNOSTIC 1 EACH STRIP IN SCH ×2 (05:34→17:27)
[2022-10-02] MEDS: POLYVINYL ALCOHOL 15 ML BOTTLE OP SCH ×4 (05:34→23:17)
[2022-10-02] MEDS: OMEPRAZOLE DR 20 MG GT SCH (05:34)
[2022-10-02] MEDS: [UNRECOGNIZED DRUG - OTHER] SQ PRN ×2 (05:35→17:27)
[2022-10-02 07:52] VITALS: BP 116/67
[2022-10-02] MEDS: HYDROGEN PEROXIDE 480 ML BOTTLE TP SCH ×2 (09:21→21:19)
[2022-10-02] MEDS: CHLORHEXIDINE GLUCONATE 15 ML UDC MM SCH ×2 (09:24→20:23)
[2022-10-02] MEDS: LEVETIRACETAM SOL (5 ML) 100 MG/ML UDC GT SCH ×2 (09:24→20:23)
[2022-10-02] MEDS: HYDROGEL DRESSING 90 GM TUBE TP SCH ×2 (09:24→20:24)
[2022-10-02] MEDS: BETHANECHOL CHLORIDE (10 MG) 10 MG TABLET GT SCH ×3 (09:24→16:39)
[2022-10-02] MEDS: BACLOFEN (10 MG) 10 MG TABLET GT SCH ×2 (09:24→20:23)
[2022-10-02] MEDS: ASCORBIC ACID 500 MG TABLET GT SCH ×2 (09:24→16:39)
[2022-10-02] MEDS: INDOMETHACIN 25 MG CAPSULE GT SCH ×2 (09:24→16:39)
[2022-10-02] MEDS: FERROUS SULFATE - FOR SA ONLY 330 MG/7.5 ML UDC GT SCH ×3 (09:24→16:39)
[2022-10-02] MEDS: VITS A AND D/WHITE PET/LANOLIN 5 GM PACKET TP SCH ×2 (09:24→20:24)
[2022-10-02] MEDS: ZINC SULFATE 220 MG CAPSULE GT SCH (09:24)
[2022-10-02] MEDS: METFORMIN 850 MG TABLET GT SCH ×2 (09:24→16:39)
[2022-10-02] MEDS: DOCUSATE SODIUM LIQ 100 MG/10 ML UDC GT SCH (09:24)
[2022-10-02] MEDS: HEPARIN SODIUM, PORCINE 5000 UNITS/1 ML VIAL SQ SCH ×2 (09:24→20:24)
[2022-10-02] MEDS: PROSTAT (PYXIS) 30 ML UDC GT SCH (09:24)
--- NOTE | 2022-10-02 10:55 | NUR ---
Seen and examined by Dr. Dsouza, no new order given.
[2022-10-02 13:20] VITALS: BP 112/66
[2022-10-02 19:29] VITALS: BP 119/70
[2022-10-02] MEDS: MULTIVIT W/MINERALS 1 TAB TABLET GT SCH (20:23)
[2022-10-02] MEDS: BASAGLAR SQ SCH (21:24)
[2022-10-02] MEDS: [UNRECOGNIZED DRUG - OTHER] SQ SCH (21:24)
[2022-10-02 23:48] VITALS: BP 121/73
[2022-10-03] MEDS: ALBUTEROL FS 2.5 MG/3 ML VIAL.NEB NEB SCH ×4 (01:44→19:47)
[2022-10-03] MEDS: IPRATROPIUM NEB FS 0.5 MG/2.5 ML AMPUL.NEB IH SCH ×4 (01:44→19:47)
[2022-10-03] MEDS: POLYVINYL ALCOHOL 15 ML BOTTLE OP SCH ×3 (06:38→17:33)
[2022-10-03] MEDS: OMEPRAZOLE DR 20 MG GT SCH (06:38)
[2022-10-03] MEDS: BLOOD SUGAR DIAGNOSTIC 1 EACH STRIP IN SCH ×2 (06:38→17:33)
[2022-10-03] MEDS: [UNRECOGNIZED DRUG - OTHER] SQ PRN (06:39)
[2022-10-03] MEDS: GLUCERNA 1.2 1,000 ML BOTTLE GT PRN (06:39)
[2022-10-03 07:29] VITALS: BP 117/74
[2022-10-03] MEDS: HYDROGEN PEROXIDE 480 ML BOTTLE TP SCH ×2 (08:23→21:32)
[2022-10-03] MEDS: HEPARIN SODIUM, PORCINE 5000 UNITS/1 ML VIAL SQ SCH ×2 (09:43→20:18)
[2022-10-03] MEDS: CHLORHEXIDINE GLUCONATE 15 ML UDC MM SCH ×2 (09:43→20:17)
[2022-10-03] MEDS: BETHANECHOL CHLORIDE (10 MG) 10 MG TABLET GT SCH ×3 (09:43→16:56)
[2022-10-03] MEDS: ZINC SULFATE 220 MG CAPSULE GT SCH (09:43)
[2022-10-03] MEDS: DOCUSATE SODIUM LIQ 100 MG/10 ML UDC GT SCH (09:43)
[2022-10-03] MEDS: METFORMIN 850 MG TABLET GT SCH ×2 (09:43→16:56)
[2022-10-03] MEDS: ASCORBIC ACID 500 MG TABLET GT SCH ×2 (09:43→16:56)
[2022-10-03] MEDS: LEVETIRACETAM SOL (5 ML) 100 MG/ML UDC GT SCH ×2 (09:43→20:17)
[2022-10-03] MEDS: BACLOFEN (10 MG) 10 MG TABLET GT SCH ×2 (09:43→20:17)
[2022-10-03] MEDS: FERROUS SULFATE - FOR SA ONLY 330 MG/7.5 ML UDC GT SCH ×3 (09:43→16:56)
[2022-10-03] MEDS: PROSTAT (PYXIS) 30 ML UDC GT SCH (09:43)
[2022-10-03] MEDS: INDOMETHACIN 25 MG CAPSULE GT SCH ×2 (09:43→16:56)
[2022-10-03] MEDS: HYDROGEL DRESSING 90 GM TUBE TP SCH ×2 (09:44→20:18)
[2022-10-03] MEDS: VITS A AND D/WHITE PET/LANOLIN 5 GM PACKET TP SCH ×2 (09:44→20:18)
[2022-10-03 12:17] VITALS: BP 121/76
[2022-10-03] MEDS: BISACODYL SUPP (10 MG) 10 MG/SUPP.RECT SUPP.RECT RC PRN (18:16)
[2022-10-03 20:00] VITALS: BP 116/65
[2022-10-03] MEDS: MULTIVIT W/MINERALS 1 TAB TABLET GT SCH (20:17)
[2022-10-03] MEDS: [UNRECOGNIZED DRUG - OTHER] SQ SCH (21:18)
[2022-10-03] MEDS: BASAGLAR SQ SCH (21:18)
[2022-10-04] MEDS: POLYVINYL ALCOHOL 15 ML BOTTLE OP SCH ×4 (00:40→17:29)
[2022-10-04] MEDS: ALBUTEROL FS 2.5 MG/3 ML VIAL.NEB NEB SCH ×4 (01:44→20:05)
[2022-10-04] MEDS: IPRATROPIUM NEB FS 0.5 MG/2.5 ML AMPUL.NEB IH SCH ×4 (01:44→20:05)
[2022-10-04] MEDS: BLOOD SUGAR DIAGNOSTIC 1 EACH STRIP IN SCH ×2 (05:11→17:39)
[2022-10-04] MEDS: [UNRECOGNIZED DRUG - OTHER] SQ PRN ×2 (05:11→17:39)
[2022-10-04] MEDS: OMEPRAZOLE DR 20 MG GT SCH (05:11)
[2022-10-04 07:24] VITALS: BP 113/75
[2022-10-04] MEDS: DOCUSATE SODIUM LIQ 100 MG/10 ML UDC GT SCH (09:23)
[2022-10-04] MEDS: METFORMIN 850 MG TABLET GT SCH ×2 (09:23→17:27)
[2022-10-04] MEDS: FERROUS SULFATE - FOR SA ONLY 330 MG/7.5 ML UDC GT SCH ×3 (09:23→17:27)
[2022-10-04] MEDS: INDOMETHACIN 25 MG CAPSULE GT SCH ×2 (09:24→17:27)
[2022-10-04] MEDS: BACLOFEN (10 MG) 10 MG TABLET GT SCH ×2 (09:24→21:06)
[2022-10-04] MEDS: LEVETIRACETAM SOL (5 ML) 100 MG/ML UDC GT SCH ×2 (09:24→21:06)
[2022-10-04] MEDS: PROSTAT (PYXIS) 30 ML UDC GT SCH (09:24)
[2022-10-04] MEDS: BETHANECHOL CHLORIDE (10 MG) 10 MG TABLET GT SCH ×3 (09:24→17:28)
[2022-10-04] MEDS: ZINC SULFATE 220 MG CAPSULE GT SCH (09:25)
[2022-10-04] MEDS: ASCORBIC ACID 500 MG TABLET GT SCH ×2 (09:25→17:28)
[2022-10-04] MEDS: CHLORHEXIDINE GLUCONATE 15 ML UDC MM SCH ×2 (09:25→21:07)
[2022-10-04] MEDS: VITS A AND D/WHITE PET/LANOLIN 5 GM PACKET TP SCH ×2 (09:26→21:08)
[2022-10-04] MEDS: HYDROGEL DRESSING 90 GM TUBE TP SCH ×2 (09:26→21:08)
[2022-10-04] MEDS: HEPARIN SODIUM, PORCINE 5000 UNITS/1 ML VIAL SQ SCH ×2 (09:26→21:08)
[2022-10-04] MEDS: HYDROGEN PEROXIDE 480 ML BOTTLE TP SCH ×2 (09:32→21:15)
[2022-10-04] MEDS: GLUCERNA 1.2 1,000 ML BOTTLE GT PRN (15:01)
[2022-10-04 15:05] VITALS: BP 121/69
[2022-10-04 15:06] VITALS: BP 145/72
--- NOTE | 2022-10-04 16:29 | NUR ---
Family Invite to IDT: SW called the pt.'s sister, Tosin Horvath [phone] inviting them to participate in 10/08/2022 IDT Meeting. However, Tosin stated she does not have any questions or concerns at [facility] and will not be participating. Noted.
[2022-10-04 19:54] VITALS: BP 114/73
[2022-10-04] MEDS: MULTIVIT W/MINERALS 1 TAB TABLET GT SCH (21:06)
[2022-10-04] MEDS: [UNRECOGNIZED DRUG - OTHER] SQ SCH (21:09)
[2022-10-04] MEDS: BASAGLAR SQ SCH (21:09)
[2022-10-05] MEDS: POLYVINYL ALCOHOL 15 ML BOTTLE OP SCH ×5 (00:44→23:44)
[2022-10-05 01:18] VITALS: BP 101/68
[2022-10-05] MEDS: ALBUTEROL FS 2.5 MG/3 ML VIAL.NEB NEB SCH ×4 (01:47→20:05)
[2022-10-05] MEDS: IPRATROPIUM NEB FS 0.5 MG/2.5 ML AMPUL.NEB IH SCH ×4 (01:47→20:05)
[2022-10-05] MEDS: OMEPRAZOLE DR 20 MG GT SCH (05:46)
[2022-10-05] MEDS: BLOOD SUGAR DIAGNOSTIC 1 EACH STRIP IN SCH ×2 (05:46→17:37)
[2022-10-05 07:39] VITALS: BP 103/63
[2022-10-05] MEDS: METFORMIN 850 MG TABLET GT SCH ×2 (09:24→16:24)
[2022-10-05] MEDS: INDOMETHACIN 25 MG CAPSULE GT SCH ×2 (09:24→16:24)
[2022-10-05] MEDS: DOCUSATE SODIUM LIQ 100 MG/10 ML UDC GT SCH (09:24)
[2022-10-05] MEDS: LEVETIRACETAM SOL (5 ML) 100 MG/ML UDC GT SCH ×2 (09:24→20:33)
[2022-10-05] MEDS: FERROUS SULFATE - FOR SA ONLY 330 MG/7.5 ML UDC GT SCH ×3 (09:24→16:24)
[2022-10-05] MEDS: BACLOFEN (10 MG) 10 MG TABLET GT SCH ×2 (09:24→20:33)
[2022-10-05] MEDS: CHLORHEXIDINE GLUCONATE 15 ML UDC MM SCH ×2 (09:25→20:33)
[2022-10-05] MEDS: ZINC SULFATE 220 MG CAPSULE GT SCH (09:25)
[2022-10-05] MEDS: PROSTAT (PYXIS) 30 ML UDC GT SCH (09:25)
[2022-10-05] MEDS: ASCORBIC ACID 500 MG TABLET GT SCH ×2 (09:25→16:24)
[2022-10-05] MEDS: BETHANECHOL CHLORIDE (10 MG) 10 MG TABLET GT SCH ×3 (09:25→16:24)
[2022-10-05] MEDS: HYDROGEL DRESSING 90 GM TUBE TP SCH ×2 (09:26→20:33)
[2022-10-05] MEDS: VITS A AND D/WHITE PET/LANOLIN 5 GM PACKET TP SCH ×2 (09:26→20:33)
[2022-10-05] MEDS: HEPARIN SODIUM, PORCINE 5000 UNITS/1 ML VIAL SQ SCH ×2 (09:26→20:33)
[2022-10-05] MEDS: HYDROGEN PEROXIDE 480 ML BOTTLE TP SCH ×2 (09:28→21:05)
[2022-10-05 11:57] VITALS: BP 121/73
[2022-10-05] MEDS: [UNRECOGNIZED DRUG - OTHER] SQ PRN (17:38)
[2022-10-05 20:21] VITALS: BP 115/77
[2022-10-05] MEDS: MULTIVIT W/MINERALS 1 TAB TABLET GT SCH (20:33)
[2022-10-05] MEDS: BASAGLAR SQ SCH (21:54)
[2022-10-05] MEDS: [UNRECOGNIZED DRUG - OTHER] SQ SCH (21:54)
[2022-10-06] MEDS: IPRATROPIUM NEB FS 0.5 MG/2.5 ML AMPUL.NEB IH SCH ×4 (01:43→20:13)
[2022-10-06] MEDS: ALBUTEROL FS 2.5 MG/3 ML VIAL.NEB NEB SCH ×4 (01:43→20:13)
[2022-10-06] MEDS: OMEPRAZOLE DR 20 MG GT SCH (05:42)
[2022-10-06] MEDS: POLYVINYL ALCOHOL 15 ML BOTTLE OP SCH ×4 (05:43→23:25)
[2022-10-06] MEDS: GLUCERNA 1.2 1,000 ML BOTTLE GT PRN ×2 (05:43→17:30)
[2022-10-06] MEDS: BLOOD SUGAR DIAGNOSTIC 1 EACH STRIP IN SCH ×2 (05:45→17:29)
[2022-10-06] MEDS: [UNRECOGNIZED DRUG - OTHER] SQ PRN ×2 (05:45→17:30)
[2022-10-06 07:41] VITALS: BP 108/67
[2022-10-06] MEDS: HYDROGEN PEROXIDE 480 ML BOTTLE TP SCH ×2 (09:06→20:13)
[2022-10-06] MEDS: DOCUSATE SODIUM LIQ 100 MG/10 ML UDC GT SCH (09:22)
[2022-10-06] MEDS: BACLOFEN (10 MG) 10 MG TABLET GT SCH ×2 (09:22→21:36)
[2022-10-06] MEDS: FERROUS SULFATE - FOR SA ONLY 330 MG/7.5 ML UDC GT SCH ×3 (09:22→17:29)
[2022-10-06] MEDS: METFORMIN 850 MG TABLET GT SCH ×2 (09:22→17:29)
[2022-10-06] MEDS: ZINC SULFATE 220 MG CAPSULE GT SCH (09:22)
[2022-10-06] MEDS: LEVETIRACETAM SOL (5 ML) 100 MG/ML UDC GT SCH ×2 (09:22→21:36)
[2022-10-06] MEDS: CHLORHEXIDINE GLUCONATE 15 ML UDC MM SCH ×2 (09:22→21:36)
[2022-10-06] MEDS: PROSTAT (PYXIS) 30 ML UDC GT SCH (09:22)
[2022-10-06] MEDS: ASCORBIC ACID 500 MG TABLET GT SCH ×2 (09:22→17:29)
[2022-10-06] MEDS: INDOMETHACIN 25 MG CAPSULE GT SCH ×2 (09:22→17:29)
[2022-10-06] MEDS: BETHANECHOL CHLORIDE (10 MG) 10 MG TABLET GT SCH ×3 (09:22→17:29)
[2022-10-06] MEDS: HYDROGEL DRESSING 90 GM TUBE TP SCH ×2 (09:23→21:36)
[2022-10-06] MEDS: HEPARIN SODIUM, PORCINE 5000 UNITS/1 ML VIAL SQ SCH ×2 (09:23→21:36)
[2022-10-06] MEDS: VITS A AND D/WHITE PET/LANOLIN 5 GM PACKET TP SCH ×2 (09:23→21:37)
[2022-10-06 12:10] VITALS: BP 112/70
[2022-10-06 20:55] VITALS: BP 121/74
[2022-10-06] MEDS: MULTIVIT W/MINERALS 1 TAB TABLET GT SCH (21:36)
[2022-10-06] MEDS: BASAGLAR SQ SCH (21:37)
[2022-10-06] MEDS: [UNRECOGNIZED DRUG - OTHER] SQ SCH (21:37)
[2022-10-07 00:25] VITALS: BP 125/68
[2022-10-07] MEDS: ALBUTEROL FS 2.5 MG/3 ML VIAL.NEB NEB SCH ×4 (02:19→20:09)
[2022-10-07] MEDS: IPRATROPIUM NEB FS 0.5 MG/2.5 ML AMPUL.NEB IH SCH ×4 (02:19→20:09)
[2022-10-07] MEDS: POLYVINYL ALCOHOL 15 ML BOTTLE OP SCH ×4 (05:56→23:29)
[2022-10-07] MEDS: OMEPRAZOLE DR 20 MG GT SCH (05:56)
[2022-10-07] MEDS: BLOOD SUGAR DIAGNOSTIC 1 EACH STRIP IN SCH ×2 (05:56→18:29)
[2022-10-07] MEDS: [UNRECOGNIZED DRUG - OTHER] SQ PRN ×2 (05:57→18:30)
--- NOTE | 2022-10-07 06:09 | NUR ---
RT Pt recvd on ordered vent settings, trach is patent and secured with no SOB or respiratory distress noted throughout shift. Neb tx given and karli well, suction done PRN. >92% spo2 maintained. Vent is plugged into red outlet with alarms on and audible. Spare trach and ambu bag at bedside.
[2022-10-07 07:33] VITALS: BP 111/63
[2022-10-07] MEDS: HYDROGEN PEROXIDE 480 ML BOTTLE TP SCH ×2 (09:20→20:09)
[2022-10-07] MEDS: BACLOFEN (10 MG) 10 MG TABLET GT SCH ×2 (09:21→20:26)
[2022-10-07] MEDS: DOCUSATE SODIUM LIQ 100 MG/10 ML UDC GT SCH (09:21)
[2022-10-07] MEDS: PROSTAT (PYXIS) 30 ML UDC GT SCH (09:21)
[2022-10-07] MEDS: VITS A AND D/WHITE PET/LANOLIN 5 GM PACKET TP SCH ×2 (09:21→20:26)
[2022-10-07] MEDS: ASCORBIC ACID 500 MG TABLET GT SCH ×2 (09:21→16:43)
[2022-10-07] MEDS: HYDROGEL DRESSING 90 GM TUBE TP SCH ×2 (09:21→20:26)
[2022-10-07] MEDS: CHLORHEXIDINE GLUCONATE 15 ML UDC MM SCH ×2 (09:21→20:26)
[2022-10-07] MEDS: ZINC SULFATE 220 MG CAPSULE GT SCH (09:21)
[2022-10-07] MEDS: INDOMETHACIN 25 MG CAPSULE GT SCH ×2 (09:21→16:43)
[2022-10-07] MEDS: METFORMIN 850 MG TABLET GT SCH ×2 (09:21→16:43)
[2022-10-07] MEDS: FERROUS SULFATE - FOR SA ONLY 330 MG/7.5 ML UDC GT SCH ×3 (09:21→16:43)
[2022-10-07] MEDS: LEVETIRACETAM SOL (5 ML) 100 MG/ML UDC GT SCH ×2 (09:21→20:26)
[2022-10-07] MEDS: BETHANECHOL CHLORIDE (10 MG) 10 MG TABLET GT SCH ×3 (09:21→16:43)
[2022-10-07] MEDS: HEPARIN SODIUM, PORCINE 5000 UNITS/1 ML VIAL SQ SCH ×2 (09:21→20:26)
--- NOTE | 2022-10-07 12:05 | NUR ---
RT NOTE Pt recvd on ordered vent settings, trach is patent and secured. Neb tx given and pt karli well. No SOB or respiratory distress noted. Tracheal and oral suction PRN. SPo2 >92% maintained. Trach care done. Vent is plugged into red outlet with alarms on and audible. Spare trach and ambu at bedside. Pt is currently stable will continue to monitor for any changes.
[2022-10-07 12:18] VITALS: BP 115/70
[2022-10-07] MEDS: GLUCERNA 1.2 1,000 ML BOTTLE GT PRN (18:29)
[2022-10-07 19:26] VITALS: BP 124/68
[2022-10-07] MEDS: MULTIVIT W/MINERALS 1 TAB TABLET GT SCH (20:26)
[2022-10-07] MEDS: BASAGLAR SQ SCH (21:31)
[2022-10-07] MEDS: [UNRECOGNIZED DRUG - OTHER] SQ SCH (21:31)
[2022-10-08 00:24] VITALS: BP 120/62
[2022-10-08] MEDS: IPRATROPIUM NEB FS 0.5 MG/2.5 ML AMPUL.NEB IH SCH ×4 (02:14→20:12)
[2022-10-08] MEDS: ALBUTEROL FS 2.5 MG/3 ML VIAL.NEB NEB SCH ×4 (02:14→20:12)
[2022-10-08] MEDS: POLYVINYL ALCOHOL 15 ML BOTTLE OP SCH ×4 (05:53→23:59)
[2022-10-08] MEDS: OMEPRAZOLE DR 20 MG GT SCH (05:53)
[2022-10-08] MEDS: BLOOD SUGAR DIAGNOSTIC 1 EACH STRIP IN SCH ×2 (05:53→17:58)
[2022-10-08] MEDS: [UNRECOGNIZED DRUG - OTHER] SQ PRN ×2 (05:54→17:59)
[2022-10-08] MEDS: GLUCERNA 1.2 1,000 ML BOTTLE GT PRN (05:54)
[2022-10-08] MEDS: BETHANECHOL CHLORIDE (10 MG) 10 MG TABLET GT SCH ×3 (09:35→17:51)
[2022-10-08] MEDS: LEVETIRACETAM SOL (5 ML) 100 MG/ML UDC GT SCH ×2 (09:35→20:35)
[2022-10-08] MEDS: INDOMETHACIN 25 MG CAPSULE GT SCH ×2 (09:35→17:50)
[2022-10-08] MEDS: METFORMIN 850 MG TABLET GT SCH ×2 (09:35→17:50)
[2022-10-08] MEDS: DOCUSATE SODIUM LIQ 100 MG/10 ML UDC GT SCH (09:35)
[2022-10-08] MEDS: FERROUS SULFATE - FOR SA ONLY 330 MG/7.5 ML UDC GT SCH ×3 (09:35→17:50)
[2022-10-08] MEDS: PROSTAT (PYXIS) 30 ML UDC GT SCH (09:35)
[2022-10-08] MEDS: BACLOFEN (10 MG) 10 MG TABLET GT SCH ×2 (09:35→20:35)
[2022-10-08] MEDS: ZINC SULFATE 220 MG CAPSULE GT SCH (09:36)
[2022-10-08] MEDS: HEPARIN SODIUM, PORCINE 5000 UNITS/1 ML VIAL SQ SCH ×2 (09:36→20:36)
[2022-10-08] MEDS: HYDROGEN PEROXIDE 480 ML BOTTLE TP SCH ×2 (09:36→20:12)
[2022-10-08] MEDS: CHLORHEXIDINE GLUCONATE 15 ML UDC MM SCH ×2 (09:36→21:00)
[2022-10-08] MEDS: HYDROGEL DRESSING 90 GM TUBE TP SCH ×2 (09:36→21:00)
[2022-10-08] MEDS: ASCORBIC ACID 500 MG TABLET GT SCH ×2 (09:36→17:51)
[2022-10-08] MEDS: VITS A AND D/WHITE PET/LANOLIN 5 GM PACKET TP SCH ×2 (09:36→21:00)
--- NOTE | 2022-10-08 10:30 | NUR ---
Seen and examined by Dr. Dsouza, no new order given.
--- NOTE | 2022-10-08 14:46 | NUR ---
INTERDISCIPLINARY PLAN OF CARE CONFERENCE took place today. The patients sister, Tosin [phone] did not participate in phone conference. Dr. Alvarez and Interdisciplinary team discussed the plan of care in detail. Current orders as well as treatments and medications were reviewed. No new orders.
[2022-10-08 19:33] VITALS: BP 129/77
[2022-10-08] MEDS: MULTIVIT W/MINERALS 1 TAB TABLET GT SCH (20:35)
[2022-10-08] MEDS: BASAGLAR SQ SCH (21:52)
[2022-10-08] MEDS: [UNRECOGNIZED DRUG - OTHER] SQ SCH (21:52)
[2022-10-09] MEDS: ALBUTEROL FS 2.5 MG/3 ML VIAL.NEB NEB SCH ×4 (02:15→18:59)
[2022-10-09] MEDS: IPRATROPIUM NEB FS 0.5 MG/2.5 ML AMPUL.NEB IH SCH ×4 (02:15→18:59)
[2022-10-09] MEDS: BLOOD SUGAR DIAGNOSTIC 1 EACH STRIP IN SCH ×2 (05:54→17:14)
[2022-10-09] MEDS: [UNRECOGNIZED DRUG - OTHER] SQ PRN ×2 (05:56→17:14)
[2022-10-09] MEDS: OMEPRAZOLE DR 20 MG GT SCH (05:59)
[2022-10-09] MEDS: POLYVINYL ALCOHOL 15 ML BOTTLE OP SCH ×4 (06:04→23:11)
[2022-10-09] MEDS: GLUCERNA 1.2 1,000 ML BOTTLE GT PRN (06:36)
[2022-10-09 07:57] VITALS: BP 126/74
[2022-10-09] MEDS: ZINC SULFATE 220 MG CAPSULE GT SCH (09:16)
[2022-10-09] MEDS: BETHANECHOL CHLORIDE (10 MG) 10 MG TABLET GT SCH ×3 (09:16→17:14)
[2022-10-09] MEDS: METFORMIN 850 MG TABLET GT SCH ×2 (09:16→17:14)
[2022-10-09] MEDS: DOCUSATE SODIUM LIQ 100 MG/10 ML UDC GT SCH (09:16)
[2022-10-09] MEDS: ASCORBIC ACID 500 MG TABLET GT SCH ×2 (09:16→17:14)
[2022-10-09] MEDS: BACLOFEN (10 MG) 10 MG TABLET GT SCH ×2 (09:16→21:33)
[2022-10-09] MEDS: PROSTAT (PYXIS) 30 ML UDC GT SCH (09:16)
[2022-10-09] MEDS: LEVETIRACETAM SOL (5 ML) 100 MG/ML UDC GT SCH ×2 (09:16→21:33)
[2022-10-09] MEDS: CHLORHEXIDINE GLUCONATE 15 ML UDC MM SCH ×2 (09:16→21:34)
[2022-10-09] MEDS: INDOMETHACIN 25 MG CAPSULE GT SCH ×2 (09:16→17:14)
[2022-10-09] MEDS: FERROUS SULFATE - FOR SA ONLY 330 MG/7.5 ML UDC GT SCH ×3 (09:16→17:14)
[2022-10-09] MEDS: VITS A AND D/WHITE PET/LANOLIN 5 GM PACKET TP SCH ×2 (09:17→21:34)
[2022-10-09] MEDS: HEPARIN SODIUM, PORCINE 5000 UNITS/1 ML VIAL SQ SCH ×2 (09:17→21:34)
[2022-10-09] MEDS: HYDROGEL DRESSING 90 GM TUBE TP SCH ×2 (09:17→21:34)
[2022-10-09] MEDS: HYDROGEN PEROXIDE 480 ML BOTTLE TP SCH ×2 (09:28→20:19)
[2022-10-09 12:14] VITALS: BP 122/71
[2022-10-09 19:18] VITALS: BP 125/75
[2022-10-09] MEDS: MULTIVIT W/MINERALS 1 TAB TABLET GT SCH (21:33)
[2022-10-09] MEDS: BASAGLAR SQ SCH (21:35)
[2022-10-09] MEDS: [UNRECOGNIZED DRUG - OTHER] SQ SCH (21:35)
[2022-10-10] MEDS: IPRATROPIUM NEB FS 0.5 MG/2.5 ML AMPUL.NEB IH SCH ×4 (01:44→18:58)
[2022-10-10] MEDS: ALBUTEROL FS 2.5 MG/3 ML VIAL.NEB NEB SCH ×4 (01:44→18:58)
[2022-10-10] MEDS: BLOOD SUGAR DIAGNOSTIC 1 EACH STRIP IN SCH ×2 (05:21→17:21)
[2022-10-10] MEDS: POLYVINYL ALCOHOL 15 ML BOTTLE OP SCH ×3 (05:21→17:21)
[2022-10-10] MEDS: OMEPRAZOLE DR 20 MG GT SCH (05:21)
[2022-10-10] MEDS: [UNRECOGNIZED DRUG - OTHER] SQ PRN ×2 (05:21→17:22)
[2022-10-10] MEDS: GLUCERNA 1.2 1,000 ML BOTTLE GT PRN ×2 (06:20→17:34)
[2022-10-10 07:27] VITALS: BP 125/67
[2022-10-10] MEDS: DOCUSATE SODIUM LIQ 100 MG/10 ML UDC GT SCH (08:22)
[2022-10-10] MEDS: LEVETIRACETAM SOL (5 ML) 100 MG/ML UDC GT SCH ×2 (08:23→21:20)
[2022-10-10] MEDS: INDOMETHACIN 25 MG CAPSULE GT SCH ×2 (08:23→16:33)
[2022-10-10] MEDS: FERROUS SULFATE - FOR SA ONLY 330 MG/7.5 ML UDC GT SCH ×3 (08:23→16:33)
[2022-10-10] MEDS: CHLORHEXIDINE GLUCONATE 15 ML UDC MM SCH ×2 (08:23→21:20)
[2022-10-10] MEDS: ZINC SULFATE 220 MG CAPSULE GT SCH (08:23)
[2022-10-10] MEDS: METFORMIN 850 MG TABLET GT SCH ×2 (08:23→16:33)
[2022-10-10] MEDS: BETHANECHOL CHLORIDE (10 MG) 10 MG TABLET GT SCH ×3 (08:23→16:34)
[2022-10-10] MEDS: PROSTAT (PYXIS) 30 ML UDC GT SCH (08:23)
[2022-10-10] MEDS: ASCORBIC ACID 500 MG TABLET GT SCH ×2 (08:23→16:34)
[2022-10-10] MEDS: BACLOFEN (10 MG) 10 MG TABLET GT SCH ×2 (08:23→21:20)
[2022-10-10] MEDS: VITS A AND D/WHITE PET/LANOLIN 5 GM PACKET TP SCH ×2 (08:24→21:21)
[2022-10-10] MEDS: HEPARIN SODIUM, PORCINE 5000 UNITS/1 ML VIAL SQ SCH ×2 (08:24→21:21)
[2022-10-10] MEDS: HYDROGEL DRESSING 90 GM TUBE TP SCH (08:24)
[2022-10-10] MEDS: HYDROGEN PEROXIDE 480 ML BOTTLE TP SCH ×2 (09:28→19:54)
--- NOTE | 2022-10-10 11:43 | NUR ---
RT NOTE Monthly trach tube change done. Assisted by Janet ARIAS. No sob or resp. distress noted. Trach patent secure and in place. Minimal bleeding and redness noted. Trach patent secure and in place. Franchesca LUTHER notified.
[2022-10-10 11:51] VITALS: BP 126/68
[2022-10-10 11:53] VITALS: BP 148/68
[2022-10-10 20:13] VITALS: BP 126/75
[2022-10-10] MEDS: MULTIVIT W/MINERALS 1 TAB TABLET GT SCH (21:20)
[2022-10-10] MEDS: [UNRECOGNIZED DRUG - OTHER] SQ SCH (21:22)
[2022-10-10] MEDS: BASAGLAR SQ SCH (21:22)
[2022-10-11] MEDS: IPRATROPIUM NEB FS 0.5 MG/2.5 ML AMPUL.NEB IH SCH ×4 (00:51→20:23)
[2022-10-11] MEDS: ALBUTEROL FS 2.5 MG/3 ML VIAL.NEB NEB SCH ×4 (00:51→20:23)
[2022-10-11] MEDS: BLOOD SUGAR DIAGNOSTIC 1 EACH STRIP IN SCH ×2 (05:56→17:24)
[2022-10-11] MEDS: OMEPRAZOLE DR 20 MG GT SCH (05:56)
[2022-10-11] MEDS: POLYVINYL ALCOHOL 15 ML BOTTLE OP SCH ×4 (06:02→17:24)
[2022-10-11 07:41] VITALS: BP 115/79
[2022-10-11] MEDS: HYDROGEN PEROXIDE 480 ML BOTTLE TP SCH ×2 (09:04→21:17)
[2022-10-11] MEDS: ZINC SULFATE 220 MG CAPSULE GT SCH (09:29)
[2022-10-11] MEDS: ASCORBIC ACID 500 MG TABLET GT SCH ×2 (09:29→16:27)
[2022-10-11] MEDS: DOCUSATE SODIUM LIQ 100 MG/10 ML UDC GT SCH (09:29)
[2022-10-11] MEDS: BACLOFEN (10 MG) 10 MG TABLET GT SCH ×2 (09:29→21:17)
[2022-10-11] MEDS: INDOMETHACIN 25 MG CAPSULE GT SCH ×2 (09:29→16:27)
[2022-10-11] MEDS: BETHANECHOL CHLORIDE (10 MG) 10 MG TABLET GT SCH ×3 (09:29→16:27)
[2022-10-11] MEDS: METFORMIN 850 MG TABLET GT SCH ×2 (09:29→16:27)
[2022-10-11] MEDS: CHLORHEXIDINE GLUCONATE 15 ML UDC MM SCH ×2 (09:29→21:17)
[2022-10-11] MEDS: FERROUS SULFATE - FOR SA ONLY 330 MG/7.5 ML UDC GT SCH ×3 (09:29→16:27)
[2022-10-11] MEDS: LEVETIRACETAM SOL (5 ML) 100 MG/ML UDC GT SCH ×2 (09:29→21:17)
[2022-10-11] MEDS: PROSTAT (PYXIS) 30 ML UDC GT SCH (09:29)
[2022-10-11] MEDS: HEPARIN SODIUM, PORCINE 5000 UNITS/1 ML VIAL SQ SCH ×2 (09:30→21:18)
[2022-10-11] MEDS: VITS A AND D/WHITE PET/LANOLIN 5 GM PACKET TP SCH ×2 (09:30→21:21)
[2022-10-11 11:24] VITALS: BP 120/77
[2022-10-11] MEDS: [UNRECOGNIZED DRUG - OTHER] SQ PRN (17:24)
[2022-10-11] MEDS: GLUCERNA 1.2 1,000 ML BOTTLE GT PRN (19:05)
[2022-10-11 20:00] VITALS: BP 121/72
[2022-10-11] MEDS: MULTIVIT W/MINERALS 1 TAB TABLET GT SCH (21:17)
[2022-10-11] MEDS: BASAGLAR SQ SCH (21:22)
[2022-10-11] MEDS: [UNRECOGNIZED DRUG - OTHER] SQ SCH (21:22)
[2022-10-12] MEDS: POLYVINYL ALCOHOL 15 ML BOTTLE OP SCH ×5 (00:17→23:48)
[2022-10-12] MEDS: ALBUTEROL FS 2.5 MG/3 ML VIAL.NEB NEB SCH ×4 (01:33→20:02)
[2022-10-12] MEDS: IPRATROPIUM NEB FS 0.5 MG/2.5 ML AMPUL.NEB IH SCH ×4 (01:33→20:02)
[2022-10-12] MEDS: OMEPRAZOLE DR 20 MG GT SCH (06:26)
[2022-10-12] MEDS: BLOOD SUGAR DIAGNOSTIC 1 EACH STRIP IN SCH ×2 (06:26→17:22)
[2022-10-12 07:33] VITALS: BP 133/79
[2022-10-12] MEDS: LEVETIRACETAM SOL (5 ML) 100 MG/ML UDC GT SCH ×2 (08:18→21:37)
[2022-10-12] MEDS: DOCUSATE SODIUM LIQ 100 MG/10 ML UDC GT SCH (08:18)
[2022-10-12] MEDS: FERROUS SULFATE - FOR SA ONLY 330 MG/7.5 ML UDC GT SCH ×3 (08:18→16:59)
[2022-10-12] MEDS: INDOMETHACIN 25 MG CAPSULE GT SCH ×2 (08:18→16:59)
[2022-10-12] MEDS: METFORMIN 850 MG TABLET GT SCH ×2 (08:18→16:59)
[2022-10-12] MEDS: ZINC SULFATE 220 MG CAPSULE GT SCH (08:19)
[2022-10-12] MEDS: CHLORHEXIDINE GLUCONATE 15 ML UDC MM SCH ×2 (08:19→21:37)
[2022-10-12] MEDS: ASCORBIC ACID 500 MG TABLET GT SCH ×2 (08:19→16:59)
[2022-10-12] MEDS: BETHANECHOL CHLORIDE (10 MG) 10 MG TABLET GT SCH ×3 (08:19→16:59)
[2022-10-12] MEDS: PROSTAT (PYXIS) 30 ML UDC GT SCH (08:19)
[2022-10-12] MEDS: BACLOFEN (10 MG) 10 MG TABLET GT SCH ×2 (08:19→21:37)
[2022-10-12] MEDS: VITS A AND D/WHITE PET/LANOLIN 5 GM PACKET TP SCH ×2 (08:21→21:37)
[2022-10-12] MEDS: HEPARIN SODIUM, PORCINE 5000 UNITS/1 ML VIAL SQ SCH ×2 (08:21→21:37)
[2022-10-12] MEDS: HYDROGEN PEROXIDE 480 ML BOTTLE TP SCH ×2 (09:20→21:12)
[2022-10-12 12:02] VITALS: BP 108/68
[2022-10-12] MEDS: [UNRECOGNIZED DRUG - OTHER] SQ PRN (17:27)
[2022-10-12 20:00] VITALS: BP 108/65
[2022-10-12] MEDS: MULTIVIT W/MINERALS 1 TAB TABLET GT SCH (21:37)
[2022-10-12] MEDS: [UNRECOGNIZED DRUG - OTHER] SQ SCH (21:38)
[2022-10-12] MEDS: BASAGLAR SQ SCH (21:38)
[2022-10-13] MEDS: IPRATROPIUM NEB FS 0.5 MG/2.5 ML AMPUL.NEB IH SCH ×4 (01:39→19:30)
[2022-10-13] MEDS: ALBUTEROL FS 2.5 MG/3 ML VIAL.NEB NEB SCH ×4 (01:39→19:30)
[2022-10-13] MEDS: BLOOD SUGAR DIAGNOSTIC 1 EACH STRIP IN SCH ×2 (06:10→17:23)
[2022-10-13] MEDS: OMEPRAZOLE DR 20 MG GT SCH (06:10)
[2022-10-13] MEDS: POLYVINYL ALCOHOL 15 ML BOTTLE OP SCH ×3 (06:30→17:24)
[2022-10-13 07:40] VITALS: BP 122/73
[2022-10-13] MEDS: PROSTAT (PYXIS) 30 ML UDC GT SCH (09:00)
[2022-10-13] MEDS: HYDROGEN PEROXIDE 480 ML BOTTLE TP SCH ×2 (09:11→20:52)
[2022-10-13] MEDS: DOCUSATE SODIUM LIQ 100 MG/10 ML UDC GT SCH (09:29)
[2022-10-13] MEDS: FERROUS SULFATE - FOR SA ONLY 330 MG/7.5 ML UDC GT SCH ×3 (09:29→16:48)
[2022-10-13] MEDS: VITS A AND D/WHITE PET/LANOLIN 5 GM PACKET TP SCH ×2 (09:30→21:20)
[2022-10-13] MEDS: HEPARIN SODIUM, PORCINE 5000 UNITS/1 ML VIAL SQ SCH ×2 (09:30→21:20)
[2022-10-13] MEDS: ZINC SULFATE 220 MG CAPSULE GT SCH (09:30)
[2022-10-13] MEDS: LEVETIRACETAM SOL (5 ML) 100 MG/ML UDC GT SCH ×2 (09:30→21:19)
[2022-10-13] MEDS: BETHANECHOL CHLORIDE (10 MG) 10 MG TABLET GT SCH ×3 (09:30→16:48)
[2022-10-13] MEDS: BACLOFEN (10 MG) 10 MG TABLET GT SCH ×2 (09:30→21:19)
[2022-10-13] MEDS: INDOMETHACIN 25 MG CAPSULE GT SCH ×2 (09:30→16:48)
[2022-10-13] MEDS: CHLORHEXIDINE GLUCONATE 15 ML UDC MM SCH ×2 (09:30→21:19)
[2022-10-13] MEDS: ASCORBIC ACID 500 MG TABLET GT SCH ×2 (09:30→16:48)
[2022-10-13] MEDS: METFORMIN 850 MG TABLET GT SCH ×2 (09:30→16:48)
[2022-10-13 12:14] VITALS: BP 125/70
[2022-10-13] MEDS: GLUCERNA 1.2 1,000 ML BOTTLE GT PRN (16:48)
[2022-10-13] MEDS: [UNRECOGNIZED DRUG - OTHER] SQ PRN (17:24)
[2022-10-13 19:42] VITALS: BP 123/78
[2022-10-13] MEDS: MULTIVIT W/MINERALS 1 TAB TABLET GT SCH (21:19)
[2022-10-13] MEDS: BASAGLAR SQ SCH (21:21)
[2022-10-13] MEDS: [UNRECOGNIZED DRUG - OTHER] SQ SCH (21:21)
[2022-10-14] MEDS: POLYVINYL ALCOHOL 15 ML BOTTLE OP SCH ×5 (00:05→23:49)
[2022-10-14] MEDS: IPRATROPIUM NEB FS 0.5 MG/2.5 ML AMPUL.NEB IH SCH ×4 (01:08→20:17)
[2022-10-14] MEDS: ALBUTEROL FS 2.5 MG/3 ML VIAL.NEB NEB SCH ×4 (01:08→20:17)
[2022-10-14] MEDS: OMEPRAZOLE DR 20 MG GT SCH (05:32)
[2022-10-14] MEDS: BLOOD SUGAR DIAGNOSTIC 1 EACH STRIP IN SCH ×2 (05:32→18:10)
[2022-10-14] MEDS: [UNRECOGNIZED DRUG - OTHER] SQ PRN ×2 (05:33→18:11)
[2022-10-14 07:28] VITALS: BP 118/74
[2022-10-14] MEDS: HYDROGEN PEROXIDE 480 ML BOTTLE TP SCH ×2 (08:36→20:17)
[2022-10-14] MEDS: BACLOFEN (10 MG) 10 MG TABLET GT SCH ×2 (09:27→20:53)
[2022-10-14] MEDS: CHLORHEXIDINE GLUCONATE 15 ML UDC MM SCH ×2 (09:27→20:53)
[2022-10-14] MEDS: FERROUS SULFATE - FOR SA ONLY 330 MG/7.5 ML UDC GT SCH ×3 (09:27→16:34)
[2022-10-14] MEDS: METFORMIN 850 MG TABLET GT SCH ×2 (09:27→16:34)
[2022-10-14] MEDS: PROSTAT (PYXIS) 30 ML UDC GT SCH (09:27)
[2022-10-14] MEDS: LEVETIRACETAM SOL (5 ML) 100 MG/ML UDC GT SCH ×2 (09:27→20:53)
[2022-10-14] MEDS: ASCORBIC ACID 500 MG TABLET GT SCH ×2 (09:27→16:34)
[2022-10-14] MEDS: INDOMETHACIN 25 MG CAPSULE GT SCH ×2 (09:27→16:34)
[2022-10-14] MEDS: BETHANECHOL CHLORIDE (10 MG) 10 MG TABLET GT SCH ×3 (09:27→16:34)
[2022-10-14] MEDS: ZINC SULFATE 220 MG CAPSULE GT SCH (09:27)
[2022-10-14] MEDS: DOCUSATE SODIUM LIQ 100 MG/10 ML UDC GT SCH (09:27)
[2022-10-14] MEDS: HEPARIN SODIUM, PORCINE 5000 UNITS/1 ML VIAL SQ SCH ×2 (09:28→20:54)
[2022-10-14] MEDS: VITS A AND D/WHITE PET/LANOLIN 5 GM PACKET TP SCH ×2 (09:28→20:54)
[2022-10-14 12:40] VITALS: BP 124/70
[2022-10-14] MEDS: GLUCERNA 1.2 1,000 ML BOTTLE GT PRN (18:48)
[2022-10-14 19:23] VITALS: BP 117/77
[2022-10-14] MEDS: MULTIVIT W/MINERALS 1 TAB TABLET GT SCH (20:53)
[2022-10-14] MEDS: BASAGLAR SQ SCH (21:01)
[2022-10-14] MEDS: [UNRECOGNIZED DRUG - OTHER] SQ SCH (21:01)
[2022-10-15 00:08] VITALS: BP 134/79
[2022-10-15] MEDS: ACETAMINOPHEN 650 MG/20 ML UDC- SA PATIENTS-PAIN ONLY GT PRN ×2 (00:29→19:30)
[2022-10-15] MEDS: IPRATROPIUM NEB FS 0.5 MG/2.5 ML AMPUL.NEB IH SCH ×4 (02:19→19:33)
[2022-10-15] MEDS: ALBUTEROL FS 2.5 MG/3 ML VIAL.NEB NEB SCH ×4 (02:19→19:33)
[2022-10-15] MEDS: POLYVINYL ALCOHOL 15 ML BOTTLE OP SCH ×3 (05:23→17:37)
[2022-10-15] MEDS: [UNRECOGNIZED DRUG - OTHER] SQ PRN ×2 (05:23→17:38)
[2022-10-15] MEDS: OMEPRAZOLE DR 20 MG GT SCH (05:23)
[2022-10-15] MEDS: BLOOD SUGAR DIAGNOSTIC 1 EACH STRIP IN SCH ×2 (05:23→17:37)
--- NOTE | 2022-10-15 05:38 | NUR ---
Patient noted with increased temperature 99.6- 100. and elevated HR 111,no distress noted, Tylenol given for discomfort @ midnight,cooling measures provided. Will continue to monitor and will endorse.
[2022-10-15 07:43] VITALS: BP 118/85
[2022-10-15] MEDS: HYDROGEN PEROXIDE 480 ML BOTTLE TP SCH ×2 (08:16→21:56)
[2022-10-15] MEDS: ZINC SULFATE 220 MG CAPSULE GT SCH (09:00)
[2022-10-15] MEDS: BETHANECHOL CHLORIDE (10 MG) 10 MG TABLET GT SCH ×3 (09:00→16:49)
[2022-10-15] MEDS: INDOMETHACIN 25 MG CAPSULE GT SCH ×2 (09:00→16:49)
[2022-10-15] MEDS: METFORMIN 850 MG TABLET GT SCH ×2 (09:00→16:49)
[2022-10-15] MEDS: HEPARIN SODIUM, PORCINE 5000 UNITS/1 ML VIAL SQ SCH ×2 (09:00→21:05)
[2022-10-15] MEDS: CHLORHEXIDINE GLUCONATE 15 ML UDC MM SCH ×2 (09:00→21:04)
[2022-10-15] MEDS: PROSTAT (PYXIS) 30 ML UDC GT SCH (09:00)
[2022-10-15] MEDS: FERROUS SULFATE - FOR SA ONLY 330 MG/7.5 ML UDC GT SCH ×3 (09:00→16:49)
[2022-10-15] MEDS: ASCORBIC ACID 500 MG TABLET GT SCH ×2 (09:00→16:49)
[2022-10-15] MEDS: BACLOFEN (10 MG) 10 MG TABLET GT SCH ×2 (09:00→21:04)
[2022-10-15] MEDS: VITS A AND D/WHITE PET/LANOLIN 5 GM PACKET TP SCH ×2 (09:00→21:05)
[2022-10-15] MEDS: DOCUSATE SODIUM LIQ 100 MG/10 ML UDC GT SCH (09:00)
[2022-10-15] MEDS: LEVETIRACETAM SOL (5 ML) 100 MG/ML UDC GT SCH ×2 (09:00→21:04)
--- NOTE | 2022-10-15 10:50 | NUR ---
Seen by Dr. Dsouza, reported that patient is having low grade temperature since last night. Current temperature 99.3, according to Dr. Dsouza to monitor patient's condition for now.
[2022-10-15 12:11] VITALS: BP 122/78
--- NOTE | 2022-10-15 16:21 | NUR ---
RECEIVED PATIENT ON MD ORDERED VENT SETTINGS. HAS A TRACH SHILEY 6 XLT. AIRWAY PATENT AND SECURE. INLINE HHN TXS TUTU WELL WITH NO ADVERSE REACTION NOTED. AMBU BAG AND EMERGENCY TRACH AT THE BEDSIDE. VENT PLUGGED INTO RED OUTLET. ALARMS SET AND AUDIBLE. MODERATE YELLOW SECRETIONS NOTED.
[2022-10-15] MEDS: GLUCERNA 1.2 1,000 ML BOTTLE GT PRN (17:37)
[2022-10-15] MEDS: BISACODYL SUPP (10 MG) 10 MG/SUPP.RECT SUPP.RECT RC PRN (17:51)
[2022-10-15 19:49] VITALS: BP 155/97
--- NOTE | 2022-10-15 20:00 | NUR ---
Patient noted with low grade temp 100.4 HR 111, BP 155/97, notified Dr. Dsouza with orders for CBC,BMP and CXR,will carry out orders. Cooling measures provided. Sister Tosin made aware of HUDSON. Will continue to monitor.
[2022-10-15] MEDS: ONDANSETRON 4 MG TAB.RAPDIS GT PRN ×2 (20:11→21:05)
--- NOTE | 2022-10-15 21:00 | NUR ---
Tested patient with d/t increase temp Covid 19 rapid antigen with negative results.
[2022-10-15] MEDS: MULTIVIT W/MINERALS 1 TAB TABLET GT SCH (21:04)
[2022-10-15] MEDS: [UNRECOGNIZED DRUG - OTHER] SQ SCH (21:06)
[2022-10-15] MEDS: BASAGLAR SQ SCH (21:06)
[2022-10-15 21:40] LABS: BASOPHILS # (AUTO) 0.4 K/uL (0.0-0.2); BASOPHILS % (AUTO) 2.3 % (0.0-2.0); EOSINOPHILS % (AUTO) 2.2 % (0.0-6.0); HEMATOCRIT 31 % (33-45); HEMOGLOBIN 10.2 g/dL (11.5-14.8); LYMPHOCYTES # (AUTO) 3.2 K/uL (0.8-4.8); LYMPHOCYTES % (AUTO) 19.5 % (20.0-44.0); MEAN CORPUSCULAR HGB CONC 33 g/dl (31.0-36.0); MEAN CORPUSCULAR VOLUME 89 fL (82-100); MONOCYTES # (AUTO) 0.8 K/uL (0.1-1.30); MONOCYTES % (AUTO) 4.6 % (2.0-12.0); NEUTROPHILS # (AUTO) 11.8 K/uL (1.8-8.9); NEUTROPHILS % (AUTO) 71.4 % (43.0-81.0); PLATELET COUNT (AUTO) 450 K/uL (150-450); WHITE BLOOD COUNT (AUTO) 16.5 K/uL (4.3-11.0)
[2022-10-15 21:58] LABS: CREATININE 0.9 mg/dL (0.6-1.3); POTASSIUM 4.6 mmol/L (3.5-5.1)
[2022-10-15 23:52] VITALS: BP 145/97
[2022-10-16] MEDS: POLYVINYL ALCOHOL 15 ML BOTTLE OP SCH ×2 (00:31→05:11)
[2022-10-16] MEDS: IPRATROPIUM NEB FS 0.5 MG/2.5 ML AMPUL.NEB IH SCH ×3 (02:24→13:30)
[2022-10-16] MEDS: ALBUTEROL FS 2.5 MG/3 ML VIAL.NEB NEB SCH ×3 (02:24→13:30)
[2022-10-16] MEDS ORDERED: LORAZEPAM INJ 2 MG/ML VIAL IV ONE (03:16)
--- NOTE | 2022-10-16 03:26 | NUR ---
Patient noted with increased respirations to 40's HR 150's BP 155/97,BS 167mg/dl ,O2 saTS 96% eyes and facial twitching noted,seizures like activity.RT at bedside giving PRN breathing treatment. call center agent paged TUBE MAKING MACHINE OPERATOR Niall Muñiz and order Ativan 2mg IV push x 1 now. Will carry out orders.Will continue to monitor.
--- NOTE | 2022-10-16 04:00 | NUR ---
Patient facial and eye twitching stopped,Patient calm ,no distress noted. BP 123/82,HR 135-140's Temp 98.9,O2 sats 95%.Will continue to monitor closely.
[2022-10-16] MEDS: BLOOD SUGAR DIAGNOSTIC 1 EACH STRIP IN SCH (05:11)
[2022-10-16] MEDS: OMEPRAZOLE DR 20 MG GT SCH (05:11)
[2022-10-16] MEDS: [UNRECOGNIZED DRUG - OTHER] SQ PRN (05:12)
--- NOTE | 2022-10-16 05:55 | NUR ---
RT Pt recvd on ordered vent settings. Pt had moments of increased respirations and increased PIP, Nurse and aircraft cabin cleaner is aware. Tracheal/Oral suction done, neb tx given, trach care done. Vent is plugged into red outlet with alarms on and audible. Spare trach and ambu bag at bedside. Spo2 >92% maintained.
[2022-10-16 07:10] VITALS: BP 131/85
--- NOTE | 2022-10-16 07:10 | NUR ---
Noted an order from Dr. Dsouza to transfer patient to ER for evaluation due to episode of seizure and tachycardia from last night. block breaker operator RN notified Dr. Dsouza early this AM that patient's HR went up to 160 with RR 40, T 99.6, with seizure like episode in which patient has facial and eye twitching. Patient's symptoms improved after Ativan 2mg. IVP given according to shirt folding machine operator. Nursing painting supervisor and ER department notified of transfer.
--- NOTE | 2022-10-16 08:00 | NUR ---
Resident transferred to ER via bed accompanied by an RT, RN and PIPE STEM ALIGNER for evaluation due to episode of seizure and tachycardia Report given to ASHKAN Greer and ER physician, Dr. Frias. Patient on ventilator with current vent setting of AC 12 TV 450 Fi02 30%, Peep 5, in no s/s of reparatory distress. Informed MD that labs were done last night CBC with WBC 16.5, CMP and Chest X-ray which is clear. Upon transfer VS as follows: T99.6 oral, 133/99, HR 150, RR12. Left a message to patient's sister Bere regarding transfer.
[2022-10-16] MEDS: HYDROGEN PEROXIDE 480 ML BOTTLE TP SCH (08:35)
== END 2022-10-16 08:30 | DRG 130 ==
LOC: SA → UNDOLOA 10-16 08:30 → UNDODISIN 10-19 18:00 → UNDOLOA 10-19 18:00
PROVIDERS: ADMIT Internal Medicine; ATTEND Internal Medicine
PROC: 5A1955Z Respiratory Ventilation, Greater than 96 Consecutive Hours (ICD-10-PCS; principal; 2022-07-18)
DX: J96.11 Chronic respiratory failure with hypoxia (principal); R40.3 Persistent vegetative state; G93.1 Anoxic brain damage, not elsewhere classified; R53.2 Functional quadriplegia; E11.9 Type 2 diabetes mellitus without complications; E66.9 Obesity, unspecified; I25.10 Atherosclerotic heart disease of native coronary artery without angina pectoris; N20.0 Calculus of kidney; N39.0 Urinary tract infection, site not specified; R13.10 Dysphagia, unspecified; I69.198 Other sequelae of nontraumatic intracerebral hemorrhage; Z20.822 Contact with and (suspected) exposure to COVID-19; Z74.01 Bed confinement status; Z87.440 Personal history of urinary (tract) infections; Z93.0 Tracheostomy status; Z93.1 Gastrostomy status; L60.3 Nail dystrophy; Z99.11 Dependence on respirator [ventilator] status; R56.9 Unspecified convulsions; G25.3 Myoclonus; R00.0 Tachycardia, unspecified
CPT/HCPCS: 31720; 36415; 71045-TC; 80048-TC; 80202-TC; 81001; 82962-TC; 85025-TC; 87040-TC; 87086-TC; 94003-TC; 94760-TC; 94799-TC; A4223; A4623; A6248; A7526; J1815; J2060; J2185; J3370; J7040; J7060; Q0162; U0003

== ENCOUNTER 2022-10-16 07:52 | Inpatient (IN) | payer MEDICAID ==
[~2022-10-16] VITALS: Ht 157.5 cm; Wt 67.1 kg
[2022-10-16] MEDS ORDERED: ACETAMINOPHEN ES 500 MG TABLET ONE ×2 (08:15→08:25)
[2022-10-16 08:27] LABS: BASOPHILS # (AUTO) 0.2 K/uL (0.0-0.2); BASOPHILS % (AUTO) 1.5 % (0.0-2.0); EOSINOPHILS % (AUTO) 0.3 % (0.0-6.0); HEMATOCRIT 30 % (33-45); HEMOGLOBIN 9.6 g/dL (11.5-14.8); LYMPHOCYTES # (AUTO) 0.7 K/uL (0.8-4.8); LYMPHOCYTES % (AUTO) 4.9 % (20.0-44.0); MEAN CORPUSCULAR HGB CONC 32 g/dl (31.0-36.0); MEAN CORPUSCULAR VOLUME 88 fL (82-100); NEUTROPHILS # (AUTO) 12.2 K/uL (1.8-8.9); NEUTROPHILS % (AUTO) 86.3 % (43.0-81.0); PLATELET COUNT (AUTO) 409 K/uL (150-450); RED BLOOD CELL COUNT(AUTO) 3.38 MIL/uL (4.0-5.2); WHITE BLOOD COUNT (AUTO) 14.1 K/uL (4.3-11.0)
[2022-10-16] MEDS ORDERED: ACETAMINOPHEN 325 MG TABLET PO ONE (08:30)
[2022-10-16] MEDS ORDERED: PIPERACILLIN /TAZOBACTAM 3.375 G in IV D5W 50 ML IV ONE (08:30)
[2022-10-16] MEDS ORDERED: IV NS 0.9% 1,000 ML BAG IV ONE ×2 (08:30→09:00)
[2022-10-16] MEDS ORDERED: VANCOMYCIN 1 GM in IV D5W 250 ML IV ONE (08:30)
--- NOTE | 2022-10-16 08:37 | NUR ---
MOVE SHEET SUBMITTED.
[2022-10-16 08:48] LABS: SERUM AMMONIA 51 umol/L (11-32)
[2022-10-16 08:49] LABS: CALCIUM, SERUM 9.9 mg/dL (8.5-10.1); CARBON DIOXIDE 29 mmol/L (21-32); CHLORIDE 94 mmol/L (98-107); CREATININE 1.3 mg/dL (0.6-1.3); GLUCOSE 257 mg/dL (74-106); POTASSIUM 5.7 mmol/L (3.5-5.1); SODIUM SERUM 132 mmol/L (136-145); UREA NITROGEN, BLOOD 34 mg/dL (7-18)
--- NOTE | 2022-10-16 08:50 | NUR ---
DIRECTOR BLOOD BANK AT BEDSIDE
--- NOTE | 2022-10-16 09:00 | NUR ---
URINE SAMPLE OBTAINED
[2022-10-16 09:01] LABS: ALANINE AMINOTRANSFERASE 40 U/L (12-78); ALBUMIN 3.4 g/dL (3.4-5.0); ALKALINE PHOSPHATASE 169 U/L (46-116); ASPARTATE AMINOTRANSFERASE 42 U/L (15-37); BILIRUBIN,TOTAL 0.2 mg/dL (0.2-1.0); TOTAL PROTEIN, SERUM 8.4 g/dL (6.4-8.2)
[2022-10-16 09:03] LABS: THYROID STIMULATING HORMONE 2.157 uIU/mL (0.358-3.74)
--- NOTE | 2022-10-16 09:04 | NUR ---
COVID SWAB COLLECTED AND SENT TO LAB
[2022-10-16 09:49] LABS: BILIRUBIN,URINE NEGATIVE (NEGATIVE); COLOR,URINE YELLOW (YELLOW); LEUKOCYTE ESTERASE ,URINE NEGATIVE (NEGATIVE); NITRITE, URINE NEGATIVE (NEGATIVE); PROTEIN,URINE 3+ mg/dl (NEGATIVE); UGLUCOSE NEGATIVE (NEGATIVE); UROBILINOGEN,URINE 0.2 EU/dL (0.2)
[2022-10-16 09:59] LABS: BACTERIA,URINE Many /HPF (None Seen); RBC,URINE 0-2 /HPF (0-2); SQUAMOUS EPITHELIAL CELL,UR Few /HPF (None Seen)
--- NOTE | 2022-10-16 10:58 | NUR ---
NO CPR PER ADMITTING PAPERWORK (SIGNED BY PATIENT SISTER AND MD). ER MD MADE AWARE.
--- NOTE | 2022-10-16 11:23 | NUR ---
INFLUENZA SWAB OBTAINED
[2022-10-16] MEDS ORDERED: KEPPRA 1500 MG in IV NS 100 ML IV ONE (11:30)
[2022-10-16] MEDS ORDERED: LEVETIRACETAM (500MG) 500 MG in IV NS 0.9% 100 ML IV SCH (11:30)
--- NOTE | 2022-10-16 12:15 | NUR ---
TROP [id number]
--- NOTE | 2022-10-16 12:59 | NUR ---
Regan monae in [facility], [place] - 10/16/22 at 1300 by NIKOLAY Report given to ASHKAN Isbell
--- NOTE | 2022-10-16 13:00 | NUR ---
Report given to ASHKAN Isbell
[2022-10-16 13:09] LABS: BAND % (MANUAL) 1 % (0.0-5.0); BASOPHILS % (MANUAL) 0 % (0.0-2.0); EOSINOPHILS % (MANUAL) 2 % (0-4); LYMPHOCYTES % (MANUAL) 6 % (16-48); MONOCYTES % (MANUAL) 9 % (0-11.0); NEUTROPHILS % (MANUAL) 82 (42-76)
--- NOTE | 2022-10-16 13:27 | NUR ---
Patient transfered to [facility], all care endorsed to ASHKAN Isbell
[2022-10-16] MEDS ORDERED: Z GUARD REMEDY 4 OZ OINT TP PRN (17:00)
[2022-10-16] MEDS ORDERED: MAGNESIUM HYDROXIDE 30 ML UDC PO PRN (17:00)
[2022-10-16] MEDS ORDERED: ACETAMINOPHEN 325 MG TABLET PO PRN (17:00)
[2022-10-16] MEDS ORDERED: ZOLPIDEM TARTRATE 5 MG TABLET PO PRN (17:00)
[2022-10-16] MEDS ORDERED: ONDANSETRON HCL/PF 4 MG/2 ML VIAL IVP PRN (17:00)
[2022-10-16] MEDS ORDERED: MAG HYDROX/AL HYDROX/SIMETH 30 ML UDC PO PRN (17:00)
--- NOTE | 2022-10-16 17:00 | NUR ---
SIFTING OPERATOR NOTE RECEIVED PATIENT FROM ER VIA GURNEY ACCOMPANIED BY 2 NURSES AND RT. PATIENT TRANSFERRED TO BED AND COMFORT MEASURES PROVIDED. [facility] TO [facility] WITH SETTINGS ORDERED. PATIENT WITH NO SPONTANEOUS EYE OPENING. NON VERBAL. PLACED ON TELE MONITOR READING ST AT 112 BPM. WTIH TRACH TO [facility] VENT, WITH NO SIGNS OF RESPIRATORY DISTRESS. WITH G-TUBE, WITH DRESSING, DRY AND INTACT. WITH IV ACCESS ON THE LEFT AC G 20 AND LEFT FOOT G22 WTIH DRESSING DRY AND INTACT. IV ACCESS PATENT AND INTACT. BODY CHECK DONE AND NOTED WOUND ISSUES. WILL REFER FOR WOUND CONSULT. MAINTAINE DON HIGH BACK REST AND NORMAL BODY ALIGNMENT. SAFETY MEASURES IN PLACED; BED IN LOW AND LOCKED POSITION, SIDE RAILS UP X 3, CALL LIGHT WITHIN EASY REACH; DR. ROLDAN NOTIFIED OF ADMISSION. WILL CONTINUE WITH PLAN OF CARE.
[2022-10-16] MEDS ORDERED: SODIUM POLYSTYRENE SULFONATE 15 G/60 ML BOTTLE PO ONE (18:00)
[2022-10-16] MEDS: IV NS 0.9% 1,000 ML IV PRN (18:03)
[2022-10-16] MEDS: LEVETIRACETAM (500MG) 1,000 MG in IV NS 0.9% 100 ML IV SCH (18:22)
[2022-10-16] MEDS ORDERED: DEXTROSE 50%-WATER 50 ML DISP.SYRIN IV PRN ×2 (18:30→19:20)
[2022-10-16] MEDS ORDERED: IPRATROPIUM NEB FS 0.5 MG/2.5 ML AMPUL.NEB IH PRN (18:30)
[2022-10-16] MEDS ORDERED: POLYETHYLENE GLYCOL 3350 17 GM POWD.PACK GT PRN (18:30)
[2022-10-16] MEDS ORDERED: FLUCONAZOLE (100 MG) 100 MG TABLET GT SCH (18:30)
[2022-10-16] MEDS ORDERED: BISACODYL SUPP (10 MG) 10 MG/SUPP.RECT SUPP.RECT RC PRN (18:30)
[2022-10-16] MEDS ORDERED: ACETAMINOPHEN 650 MG/20.3 ML UDC GT PRN (18:30)
[2022-10-16] MEDS ORDERED: ALBUTEROL FS 2.5 MG/3 ML VIAL.NEB IH PRN (18:30)
[2022-10-16] MEDS: ZOSYN IVPB 2.25 G in IV D5W 50ml IV SCH (18:47)
--- NOTE | 2022-10-16 19:00 | NUR ---
RN opening notes Received Pt from morning nurse. Pt is resting in bed comfortably. Pt is obtunded. On mec. vent with O2 sat is 100%. No SOB. No S/S of distress noted. Tele monitor showed S.tachy HR at 104. IV site at L foot # 22 is clean, intact and flushes well. IV site at LAC# 20 is clean, intact and infusing well abx. Seizure precautions is maintained. Bed at low position, brakes locked, side rails upX3 and padded, hob elevated, bed alarm is on and call light is within reach. Will continue to monitor.
--- NOTE | 2022-10-16 19:15 | NUR ---
SCUDDING INSPECTOR CLOSING NOTE PATIENT WITH NO SPONTANEOUS EYE OPENING. NON VERBAL. PLACED ON TELE MONITOR READING ST AT 112 BPM. WTIH TRACH TO [facility] VENT, WITH NO SIGNS OF RESPIRATORY DISTRESS. WITH G-TUBE, WITH DRESSING, DRY AND INTACT. WITH IV ACCESS ON THE LEFT AC G 20 WITH ONGOIN GIVF NS AT 75ML/HR. AND LEFT FOOT G22 WTIH DRESSING DRY AND INTACT. IV ACCESS PATENT AND INTACT. BODY CHECK DONE AND NOTED WOUND ISSUES. WILL REFER FOR WOUND CONSULT. MAINTAINE DON HIGH BACK REST AND NORMAL BODY ALIGNMENT. SAFETY MEASURES IN PLACED; BED IN LOW AND LOCKED POSITION, SIDE RAILS UP X 3, CALL LIGHT WITHIN EASY REACH; WILL ENDORSE TO NEXT SHIFT FOR CONTINUITY OF CARE.
[2022-10-16] MEDS: ALBUTEROL FS 2.5 MG/3 ML VIAL.NEB IH SCH (19:27)
[2022-10-16] MEDS: IPRATROPIUM NEB FS 0.5 MG/2.5 ML AMPUL.NEB IH SCH (19:27)
[2022-10-16] MEDS ORDERED: INSULIN LISPRO SQ PRN (19:30)
--- NOTE | 2022-10-16 19:32 | NUR ---
PT recvd on LTV vent on AC 12 450 30% +5 settings and pt is karli well. Shiley 6 XLT Trach is patent and secured. No SOB or respiratory distress noted at this time. NEb tx given and karli well. Oral and Tracheal Suction done PRN. Vent is plugged into red outlet with alarms on and audible. Spare trach and ambu at bedside.
[2022-10-16 20:00] VITALS: BP_SYST 103; BP_SYST 105; BP_DIAS 57; BP_DIAS 58
[2022-10-16] MEDS: HEPARIN SODIUM, PORCINE 5000 UNITS/1 ML VIAL SQ SCH ×2 (20:52→21:00)
[2022-10-16] MEDS: CHLORHEXIDINE GLUCONATE 15 ML UDC MM SCH (20:53)
[2022-10-16] MEDS: BACLOFEN (10 MG) 10 MG TABLET GT SCH (20:53)
[2022-10-16] MEDS: HYDROGEN PEROXIDE 480 ML BOTTLE TP SCH (20:54)
[2022-10-16] MEDS: VITAMINS A AND D 56.7 GM TUBE TP SCH (20:59)
[2022-10-16] MEDS: TRIAMCINOLONE OINT 0.1% 15 GM TUBE TP SCH (21:00)
--- NOTE | 2022-10-16 21:00 | NUR ---
ASHKAN notes Held heparin for lumbar puncture procedure. Addendum: 10/16/22 at 2216 by VESNA WASSERMAN RN Returned heparin to pyxis.
--- NOTE | 2022-10-16 21:00 | NUR ---
RN notes Aristocort cream is not available at the unit. Charge nurse is aware and informed.
[2022-10-16] MEDS: INSULIN GLARGINE, 100 UNIT/ML CARTRIDGE SQ SCH (22:00)
[2022-10-16] MEDS: BLOOD SUGAR DIAGNOSTIC 1 EACH STRIP IN SCH (22:16)
--- NOTE | 2022-10-16 22:28 | NUR ---
RN notes Called and spoke with Pt's sister Tosin Rangel ([phone]) to get a consent for lumbar puncture. Pt's sister verbalize understanding. Consent by two nurses. witness by ASHKAN Morgan.
[2022-10-17] VITALS (7 sets, daily range): BP systolic 105–133; BP diastolic 60–74
[2022-10-17] MEDS: ZOSYN IVPB 2.25 G in IV D5W 50ml IV SCH ×4 (00:07→18:03)
[2022-10-17] MEDS: POLYVINYL ALCOHOL 15 ML BOTTLE EACHEYE SCH ×4 (00:10→18:03)
[2022-10-17] MEDS: ALBUTEROL FS 2.5 MG/3 ML VIAL.NEB IH SCH ×4 (00:55→19:46)
[2022-10-17] MEDS: IPRATROPIUM NEB FS 0.5 MG/2.5 ML AMPUL.NEB IH SCH ×4 (00:55→19:46)
--- NOTE | 2022-10-17 01:04 | NUR ---
RN notes Informed and notify Dr. Muñiz regarding tube feeding. Awaiting for order.
--- NOTE | 2022-10-17 05:00 | NUR ---
RN notes Noted redness on L and R thigh. picture taken. skin care provided. wound care consult ordered. will continue to monitor.
[2022-10-17] MEDS: LEVETIRACETAM (500MG) 1,000 MG in IV NS 0.9% 100 ML IV SCH (05:04)
[2022-10-17] MEDS: PANTOPRAZOLE 40 MG/PACK PACK GT SCH (05:05)
[2022-10-17] MEDS: BLOOD SUGAR DIAGNOSTIC 1 EACH STRIP IN SCH ×2 (06:11→18:03)
--- NOTE | 2022-10-17 06:14 | NUR ---
RN notes Received order from Dr. Muñiz for tube feeding glucerna 1.2 @ 65 ml/hr. charge nurse is aware and informed.
--- NOTE | 2022-10-17 06:40 | NUR ---
RN closing notes Pt is resting in bed comfortably. Pt is obtunded. On mec. vent with O2 sat is 100%. No SOB. No S/S of distress noted. Tele monitor showed SR hr at 88. Vs is stable. afebrile. IV site at L foot # 22 is clean, intact and flushes well. IV site at LAC# 20 is clean, intact and infusing well NS@ 75ml/hr. Gtube feeding running glucerna 1.2 @ 65ml/hr. Routine meds were given as ordered. wound care provided. Kept Pt clean, dry and comfortable. Seizure precautions is maintained. Bed at low position, brakes locked, side rails upX3 and padded, hob elevated, bed alarm is on and call light is within reach. Will endorse to am nurse for HUDSON.
[2022-10-17] MEDS: GLUCERNA 1.2 1,000 ML BOTTLE GT PRN (06:52)
[2022-10-17 07:17] LABS: CALCIUM, SERUM 8.6 mg/dL (8.5-10.1); MAGNESIUM 2.1 mg/dL (1.8-2.4); PHOSPHORUS 2.6 mg/dL (2.5-4.9); POTASSIUM 3.6 mmol/L (3.5-5.1)
--- NOTE | 2022-10-17 07:25 | NUR ---
RN notes Received a phone call from [facility] [place]. Pt's hemoglobin 7.0. Informed [place] to draw the blood again. Will endorse to am nurse.
--- NOTE | 2022-10-17 07:30 | NUR ---
PT RECEIVED RESTING COMFORTABLY IN BED. NO S/S OR C/O PAIN OR DISTRESS NOTED. SIDE RAILS UP X2, CALL LIGHT LEFT WITHIN REACH. WILL CONTINUE PLAN OF CARE.
[2022-10-17 08:10] LABS: BASOPHILS # (AUTO) 0.1 K/uL (0.0-0.2); BASOPHILS % (AUTO) 1.7 % (0.0-2.0); EOSINOPHILS % (AUTO) 3.4 % (0.0-6.0); HEMATOCRIT 23 % (33-45); HEMOGLOBIN 7.5 g/dL (11.5-14.8); LYMPHOCYTES # (AUTO) 2.2 K/uL (0.8-4.8); LYMPHOCYTES % (AUTO) 27.5 % (20.0-44.0); MEAN CORPUSCULAR HGB CONC 32 g/dl (31.0-36.0); MEAN CORPUSCULAR VOLUME 89 fL (82-100); MONOCYTES # (AUTO) 0.8 K/uL (0.1-1.30); MONOCYTES % (AUTO) 9.6 % (2.0-12.0); NEUTROPHILS # (AUTO) 4.6 K/uL (1.8-8.9); NEUTROPHILS % (AUTO) 57.8 % (43.0-81.0); PLATELET COUNT (AUTO) 259 K/uL (150-450); RED BLOOD CELL COUNT(AUTO) 2.61 MIL/uL (4.0-5.2); WHITE BLOOD COUNT (AUTO) 7.9 K/uL (4.3-11.0)
[2022-10-17] MEDS: METFORMIN 850 MG TABLET GT SCH ×2 (08:55→17:39)
[2022-10-17] MEDS: MULTIVIT W/MINERALS 1 TAB TABLET GT SCH (08:55)
[2022-10-17] MEDS: CHLORHEXIDINE GLUCONATE 15 ML UDC MM SCH ×2 (08:55→21:26)
[2022-10-17] MEDS: BETHANECHOL CHLORIDE (10 MG) 10 MG TABLET GT SCH ×3 (08:55→17:39)
[2022-10-17] MEDS: FERROUS SULFATE UDC 300 MG/5 ML UDC GT SCH ×3 (08:55→17:39)
[2022-10-17] MEDS: INDOMETHACIN 25 MG CAPSULE GT SCH ×2 (08:56→17:39)
[2022-10-17] MEDS: ASCORBIC ACID 500 MG TABLET GT SCH ×2 (08:56→17:39)
[2022-10-17] MEDS: ZINC SULFATE 220 MG CAPSULE GT SCH (08:56)
[2022-10-17] MEDS: BACLOFEN (10 MG) 10 MG TABLET GT SCH ×2 (08:56→21:26)
[2022-10-17] MEDS: HEPARIN SODIUM, PORCINE 5000 UNITS/1 ML VIAL SQ SCH ×2 (09:00→21:00)
[2022-10-17] MEDS: TRIAMCINOLONE OINT 0.1% 15 GM TUBE TP SCH ×2 (09:00→21:00)
[2022-10-17] MEDS ORDERED: VANCOMYCIN 1 GM in IV D5W 250 ML IV SCH (09:00)
[2022-10-17] MEDS: PROSOURCE / PROSTAT (PYXIS) 30 ML UDC GT SCH (09:00)
[2022-10-17] MEDS: VITAMINS A AND D 56.7 GM TUBE TP SCH ×2 (10:08→21:32)
[2022-10-17] MEDS: HYDROGEN PEROXIDE 480 ML BOTTLE TP SCH ×2 (10:08→21:30)
[2022-10-17] MEDS ORDERED: KEPPRA 1000 MG in IV NS 100 ML IV ONE ×2 (13:00→13:30)
--- NOTE | 2022-10-17 18:22 | NUR ---
CHANGE OF SHIFT REPORT PT RESTING COMFORTABLY IN BED. NO S/S OR C/O PAIN OR DISTRESS NOTED. SIDE RAILS UP X2, CALL LIGHT LEFT WITHIN REACH. PT KEPT CLEAN, DRY, AND COMFORTABLE. WILL GIVE REPORT TO LÓPEZ LUTHER.
--- NOTE | 2022-10-17 19:48 | NUR ---
noc rn opening note received patient in bed with eyes closed, easy to arouse. obtunded. noted lip twitch. no s/s of apparent distress-- vent dependent with an XL shiley #6. not exhibiting pain via flacc. reading sr on the patricio monitor with 98 bpm. lac #10 g running ns @75 mls/hr and left foot #18g on saline lock. safety in place-- bed in lowest, locked position, side rails upX4, rails padded, bed alarm in place. will continue with patient's plan of care.
--- NOTE | 2022-10-17 20:32 | NUR ---
noc rn note MRSA SWAB obtained at this time
[2022-10-17] MEDS ORDERED: VANCOMYCIN 0.75 GM in IV D5W 250 ML IV SCH (21:00)
--- NOTE | 2022-10-17 21:43 | NUR ---
noc rn note 2100 dose of Heparin held as ordered by Hospitalist Tony Muñiz. will monitor.
--- NOTE | 2022-10-17 21:43 | NUR ---
savannah rn note- [facility] return/discrepancy Bottle Hydrogen Peroxide pulled from [facility] returned in [facility] d/t a whole bottle still at bedside. discrepancy is I pressed on return 'peridex mouthwash' instead of hydrogen peroxide but bottle of hydrogen peroxide returned not the peridex mouthwash.
--- NOTE | 2022-10-17 21:55 | NUR ---
noc rn note triamcinolone ointment non-administered not available. charge nurse, Farnaz syed.
[2022-10-17] MEDS: INSULIN GLARGINE, 100 UNIT/ML CARTRIDGE SQ SCH (22:15)
[2022-10-18] VITALS: BP 126/75
[2022-10-18] MEDS: ZOSYN IVPB 2.25 G in IV D5W 50ml IV SCH ×4 (00:11→17:47)
[2022-10-18] MEDS: POLYVINYL ALCOHOL 15 ML BOTTLE EACHEYE SCH ×4 (00:12→17:47)
[2022-10-18] MEDS: IPRATROPIUM NEB FS 0.5 MG/2.5 ML AMPUL.NEB IH SCH ×4 (00:41→18:44)
[2022-10-18] MEDS: ALBUTEROL FS 2.5 MG/3 ML VIAL.NEB IH SCH ×4 (00:41→18:44)
[2022-10-18] MEDS: KEPPRA 1500 MG in IV NS 100 ML IV SCH ×2 (01:00→14:14)
[2022-10-18] MEDS: VANCOMYCIN 1 GM in IV D5W 250 ML IV SCH ×2 (03:30→21:29)
[2022-10-18 04:58] VITALS: BP 117/63
[2022-10-18] MEDS: GLUCERNA 1.2 1,000 ML BOTTLE GT PRN (05:04)
[2022-10-18] MEDS: IV NS 0.9% 1,000 ML IV PRN ×2 (05:06→22:49)
[2022-10-18] MEDS: PANTOPRAZOLE 40 MG/PACK PACK GT SCH (06:24)
[2022-10-18] MEDS: BLOOD SUGAR DIAGNOSTIC 1 EACH STRIP IN SCH ×2 (06:34→18:39)
[2022-10-18 06:35] LABS: BASOPHILS % (AUTO) 0.6 % (0.0-2.0); EOSINOPHILS % (AUTO) 6.3 % (0.0-6.0); LYMPHOCYTES # (AUTO) 1.8 K/uL (0.8-4.8); LYMPHOCYTES % (AUTO) 27.2 % (20.0-44.0); MEAN CORPUSCULAR HGB CONC 32 g/dl (31.0-36.0); MEAN CORPUSCULAR VOLUME 90 fL (82-100); MONOCYTES # (AUTO) 0.4 K/uL (0.1-1.30); MONOCYTES % (AUTO) 6.1 % (2.0-12.0); NEUTROPHILS % (AUTO) 59.8 % (43.0-81.0); PLATELET COUNT (AUTO) 298 K/uL (150-450); RED BLOOD CELL COUNT(AUTO) 2.21 MIL/uL (4.0-5.2); WHITE BLOOD COUNT (AUTO) 6.7 K/uL (4.3-11.0)
[2022-10-18 07:03] LABS: CALCIUM, SERUM 8.5 mg/dL (8.5-10.1); PHOSPHORUS 2.6 mg/dL (2.5-4.9); POTASSIUM 3.9 mmol/L (3.5-5.1)
[2022-10-18 07:04] LABS: MAGNESIUM 2.1 mg/dL (1.8-2.4)
--- NOTE | 2022-10-18 07:20 | NUR ---
COOK PICKLED MEAT OPENING NOTE RECEIVED PATIENT WITH NO SPONTANEOUS EYE OPENING. NON VERBAL. PLACED ON TELE MONITOR READING ST AT 105 BPM. WTIH TRACH TO [facility] VENT, WITH NO SIGNS OF RESPIRATORY DISTRESS. WITH G-TUBE, WITH DRESSING, DRY AND INTACT. WITH IV ACCESS ON THE LEFT AC G 20 WITH ONGOING IVF NS AT 75ML/HR. AND LEFT FOOT G22 WTIH DRESSING DRY AND INTACT. IV ACCESS PATENT AND INTACT. BODY CHECK DONE AND NOTED WOUND ISSUES. WILL REFER FOR WOUND CONSULT. MAINTAINED ON HIGH BACK REST AND NORMAL BODY ALIGNMENT. SAFETY MEASURES IN PLACED; BED IN LOW AND LOCKED POSITION, SIDE RAILS UP X 3, CALL LIGHT WITHIN EASY REACH; WILL CONTINUE WITH PLAN OF CARE.
--- NOTE | 2022-10-18 07:20 | NUR ---
noc closing note all needs attended. all scheduled medications administered. will endorse to morning shift rn for continuity of care.
[2022-10-18 08:00] VITALS: BP 139/74
[2022-10-18 08:06] LABS: HEMATOCRIT 20 % (33-45)
[2022-10-18 08:09] LABS: HEMOGLOBIN 6.4 g/dL (11.5-14.8)
--- NOTE | 2022-10-18 08:30 | NUR ---
LATHE HAND NOTE LATEST HG RESULT IS 6.4. DR. WEBSTER NOTIFIED AND FOLLOW UP MADE. PATIENT DOES NOT SHOW ANY SIGNS AND SYMPTOMS OF BLEEDING OR HYPOTENSION. IN STABLE CONDITION. NO NEW ORDER AT THIS TIME.
[2022-10-18] MEDS: FERROUS SULFATE UDC 300 MG/5 ML UDC GT SCH ×3 (08:38→17:34)
[2022-10-18] MEDS: CHLORHEXIDINE GLUCONATE 15 ML UDC MM SCH ×2 (08:38→21:21)
[2022-10-18] MEDS: BETHANECHOL CHLORIDE (10 MG) 10 MG TABLET GT SCH ×3 (08:38→17:34)
[2022-10-18] MEDS: BACLOFEN (10 MG) 10 MG TABLET GT SCH ×2 (08:39→21:29)
[2022-10-18] MEDS: MULTIVIT W/MINERALS 1 TAB TABLET GT SCH (08:39)
[2022-10-18] MEDS: ZINC SULFATE 220 MG CAPSULE GT SCH (08:39)
[2022-10-18] MEDS: METFORMIN 850 MG TABLET GT SCH ×2 (08:39→17:34)
[2022-10-18] MEDS: ASCORBIC ACID 500 MG TABLET GT SCH ×2 (08:39→17:34)
[2022-10-18] MEDS: INDOMETHACIN 25 MG CAPSULE GT SCH ×2 (08:44→17:35)
[2022-10-18] MEDS: HEPARIN SODIUM, PORCINE 5000 UNITS/1 ML VIAL SQ SCH ×2 (09:00→21:00)
[2022-10-18] MEDS: HYDROGEN PEROXIDE 480 ML BOTTLE TP SCH ×2 (09:03→21:31)
[2022-10-18] MEDS: PROSOURCE / PROSTAT (PYXIS) 30 ML UDC GT SCH (09:05)
[2022-10-18 12:00] VITALS: BP 106/48
[2022-10-18] MEDS: VITAMINS A AND D 56.7 GM TUBE TP SCH ×2 (12:43→21:29)
--- NOTE | 2022-10-18 13:34 | NUR ---
GLASS BEAD MAKER NOTE AWAITING DELIVERY OF KEPPRA THEN WILL TRANSFUSE 1U PRBC ORDERED. IN STALE CONDITION.
[2022-10-18] MEDS ORDERED: MORPHINE SULFATE INJ 2 MG/ML DISP.SYRIN IV PRN (14:00)
--- NOTE | 2022-10-18 14:00 | NUR ---
STAFF TRAINER NOTE SPOKE WITH RP/ SISTER FRACISCO, SHE WANTS TO STOP ALL TREAMENT. SHE SAID THAT SHE HAD SUFFERED ENOUGH AND WOULD WANT HER TO LET HER REST IN [place]. MARKETING COMMUNICATIONS LEADER, CHARGE NURSE, TECH FOR HELP TO INTERPRET AND THIS NURSE WERE ALL PRESENT TO CLARIFY AND EXPLAIN HER CONDITIONS, REQUEST. DR. ROLDAN NOTIFIED. WILL HOLD BLOOD TRANSFUSION AT THIS TIME. WILL WAIT FOR RENAL CASE MANAGER BEFORE POSSIBLE EXTUBATION REQUEST. WILL CONTINUE WITH PLAN OF CARE.
--- NOTE | 2022-10-18 15:35 | NUR ---
SW called various gnosticism churches near [facility] : [phone] [facility]ath De [phone] [phone] Michael-Stewardson of [phone] [facility] Ap[facility] Rowell de [phone] due to this being "holy week" there are no priests available to do last rite for pt. ERVIN discussed with pt.'s sister, Tosin and the CM, Ynes.
[2022-10-18 16:00] VITALS: BP 100/40
--- NOTE | 2022-10-18 19:00 | NUR ---
ELECTRICAL DESIGN TECHNOLOGIST CLOSING NOTE PATIENT WITH NO SPONTANEOUS EYE OPENING. NON VERBAL. PLACED ON TELE MONITOR READING ST AT 105 BPM. WTIH TRACH TO [facility], WITH NO SIGNS OF RESPIRATORY DISTRESS. WITH G-TUBE, WITH DRESSING, DRY AND INTACT. WITH IV ACCESS ON THE LEFT AC G 20 WITH ONGOING IVF NS AT 75ML/HR. AND LEFT FOOT G22 WTIH DRESSING DRY AND INTACT. IV ACCESS PATENT AND INTACT. BODY CHECK DONE AND NOTED WOUND ISSUES. WILL REFER FOR WOUND CONSULT. MAINTAINED ON HIGH BACK REST AND NORMAL BODY ALIGNMENT. SAFETY MEASURES IN PLACED; BED IN LOW AND LOCKED POSITION, SIDE RAILS UP X 3, CALL LIGHT WITHIN EASY REACH; WILL ENDORSE TO NEXT SHIFT FOR CONTINUITY OF CARE.
--- NOTE | 2022-10-18 19:30 | NUR ---
SENIOR FINANCIAL ACCOUNTANT OPENING NOTES RECEIVED PATIENT IN BED WITH NO SPONTANEOUS EYE OPENING AND NON VERBAL. PATIENT ON TELE MONITOR READING ST AT 105 BPM, WITH TRACH TO MECH VENT, WITH NO SIGNS OF RESPIRATORY DISTRESS OR SOB NOTED. WITH G-TUBE RUNNING GLUCERNA 65ML/HR, TOLERATING WELL. IV ACCESS ON THE LAC G 20 RUNNING NS AT 75ML/HR, INFUSING WELL AND LEFT FOOT G22 WITH DRESSING DRY AND INTACT. SAFETY MEASURES IN PLACE WITH BED ON LOWEST LOCKED POSITION, ON HIGH BACK REST, SIDE RAILS UP X 3, CALL LIGHT WITHIN EASY REACH; WILL CONTINUE WITH THE PLAN OF CARE.
[2022-10-18 20:00] VITALS: BP 120/68
--- NOTE | 2022-10-18 21:36 | NUR ---
RN NOTES- HEPARIN NOT GIVEN PATIENT HGB LEVEL IS 6.4. WITHHELD HEPARIN. WILL CONTINUE TO MONITOR THE PATIENT.
[2022-10-18] MEDS ORDERED: KEPPRA 1500 MG in IV NS 100 ML IV SCH (22:00)
[2022-10-18] MEDS: INSULIN GLARGINE, 100 UNIT/ML CARTRIDGE SQ SCH (23:03)
[2022-10-19] VITALS: BP 116/70
[2022-10-19] MEDS: ZOSYN IVPB 2.25 G in IV D5W 50ml IV SCH ×2 (00:09→05:21)
[2022-10-19] MEDS: POLYVINYL ALCOHOL 15 ML BOTTLE EACHEYE SCH ×2 (00:16→05:24)
[2022-10-19] MEDS: IPRATROPIUM NEB FS 0.5 MG/2.5 ML AMPUL.NEB IH SCH ×2 (02:19→07:51)
[2022-10-19] MEDS: ALBUTEROL FS 2.5 MG/3 ML VIAL.NEB IH SCH ×2 (02:19→07:51)
[2022-10-19] MEDS: BLOOD SUGAR DIAGNOSTIC 1 EACH STRIP IN SCH (06:00)
[2022-10-19 06:07] LABS: BASOPHILS % (AUTO) 0.3 % (0.0-2.0); EOSINOPHILS % (AUTO) 5.8 % (0.0-6.0); HEMATOCRIT 24 % (33-45); HEMOGLOBIN 7.4 g/dL (11.5-14.8); LYMPHOCYTES % (AUTO) 24.9 % (20.0-44.0); MEAN CORPUSCULAR HGB CONC 32 g/dl (31.0-36.0); MEAN CORPUSCULAR VOLUME 91 fL (82-100); MONOCYTES # (AUTO) 0.5 K/uL (0.1-1.30); MONOCYTES % (AUTO) 6.1 % (2.0-12.0); NEUTROPHILS # (AUTO) 5.1 K/uL (1.8-8.9); NEUTROPHILS % (AUTO) 62.9 % (43.0-81.0); PLATELET COUNT (AUTO) 306 K/uL (150-450); WHITE BLOOD COUNT (AUTO) 8.1 K/uL (4.3-11.0)
[2022-10-19 06:26] LABS: CALCIUM, SERUM 8.5 mg/dL (8.5-10.1); CREATININE 0.8 mg/dL (0.6-1.3); MAGNESIUM 2.2 mg/dL (1.8-2.4); PHOSPHORUS 3.4 mg/dL (2.5-4.9); POTASSIUM 4.3 mmol/L (3.5-5.1)
[2022-10-19] MEDS: PANTOPRAZOLE 40 MG/PACK PACK GT SCH (07:07)
--- NOTE | 2022-10-19 07:29 | NUR ---
GUIDE TRAVEL OPENING NOTE RECEIVED PT ASLEEP IN BED. PT IS OBTUNDED. PT IS ON LTV VENT ON PRESCRIBED SETTINGS, TOLERATING WELL. NO SOB NOTED. NOT IN ANY SIGN OF RESPIRATORY DISTRESS. PT ON TELE CLIENT SPECIALIST WITH CURRENT READING OF SINUS RHYTHM, HR 70. NO SIGNS CARDIAC DISTRESS NOTED AT THIS TIME. IV ACCESS IS ON THE LAC G#20 INTACT AND PATENT WITH NS INFUSING AT 75ML/HR. IV ACCESS ON LEFT FOOT G#[address] GTUBE [address] AND INTACT WITH NO FEEDING RUNNING. PER STAFF COMMAND AND CONTROL OFFICER NURSE PT IS NOW UNDER COMFORT CARE MEASURES WITH A POSSIBLE EXTUBATION OF LTC VENT TODAY. KEPT HOB ELEVATED AT ALL TIMES. SAFETY MEASURES IN PLACE: BED IN LOWEST AND LOCKED POSITION, SIDE RAILS UP X3, BED ALARM ON, AND CALL LIGHT WITHIN REACH. WILL CONTINUE PT WITH PLAN OF CARE.
[2022-10-19 08:00] VITALS: BP 140/72
[2022-10-19] MEDS ORDERED: MORPHINE SULFATE INJ 4 MG/ML DISP.SYRIN IV ONE (09:00)
--- NOTE | 2022-10-19 09:01 | NUR ---
RN NOTE CALLED DR. VALDEMAR CUNHA AND CLARIFIED PT'S CURRENT ORDERS. MADE HIM AWARE THAT PT IS COMFORT MEASURES ONLY AND PT WILL BE EXTUBATED FROM LTV VENT WHEN THE GRADUATE ASSISTANT COMES AT 10AM. MADE HIM AWARE THAT PT STILL HAS GTUBE FEEDING, IV FLUIDS, AND ALL SCHEDULED MEDICATIONS ORDERED. PER DR. CUNHA TO DC ALL ORDERS. ALSO ASKED DR. CUNHA IF HE WANTS TO ADMINISTER MORPHINE IVP PRIOR TO EXTUBATION. DR. CUNHA AGREED AND ORDERED TO ADMINISTER MORPHINE 4MG IVP ONE TIME DOSE PRIOR TO EXTUBATION. ORDERS CARRIED OUT.
--- NOTE | 2022-10-19 10:30 | NUR ---
SS NOTE: SW met with pt.'s sister, Tosin Womack at bedside and provided emotional support. SW also provided family with cremation resources as family stated they do not have arrangements at this time.
--- NOTE | 2022-10-19 11:03 | NUR ---
RN NOTE PT WAS SEEN BY DR. CUNHA WITH ORDERS TO DC ALL CURRENT ORDER OF MORPHINE. PER HE WILL PUT IN A NEW ORDER FOR MORPHINE AND ATIVAN. ORDERS CARRIED OUT. Addendum: 10/19/22 at 1733 by DAMION MORILLO RN ADDENDUM: RN NOTE DR. VALDEMAR CUNHA ALSO SPOKE WITH THE FAMILY AT BEDSIDE AND DISCUSSED PT'S CONDITION AGAIN AND CLARIFIED IF THEY STILL WANT THE PT TO BE EXTUBATED. FAMILY STILL IN AGREEMENT WITH THE EXTUBATION AND COMFORT MEASURES.
[2022-10-19] MEDS: MORPHINE SULFATE INJ 4 MG/ML DISP.SYRIN IV PRN ×2 (11:24→13:03)
--- NOTE | 2022-10-19 11:26 | NUR ---
RN NOTE PT NOTED WITH FACIAL GRIMACING. MORPHINE 4MG IVP ADMINISTERED ORDERED BY MD Q30 MINS PRN FOR COMFORT MEASURE. WILL MONITOR AND REASSESS PT.
[2022-10-19] MEDS ORDERED: LORAZEPAM INJ 2 MG/ML VIAL IV PRN (11:30)
--- NOTE | 2022-10-19 13:05 | NUR ---
RN NOTE PT NOTED WITH FACIAL GRIMACING. MORPHINE 4MG IVP ADMINISTERED ORDERED BY MD Q30 MINS PRN FOR COMFORT MEASURE. WILL MONITOR AND REASSESS PT.
--- NOTE | 2022-10-19 13:18 | NUR ---
RT Pt decannulated per MD comfort measure orders. Pt placed on 3 LPM NC post decannulation. RN and family at bedside.
--- NOTE | 2022-10-19 14:30 | NUR ---
RN NOTE PT ON DNR STATUS WITH COMFORT MEASURES ONLY. PT WAS ON TRACH TO MECHANICAL VENT AT PRESCRIBED SETTINGS. PT WAS EXTUBATED BY 2 RESPIRATORY THERAPIST (VERÓNICA AND ELO) AT 1318 WITH FAMILY AT BEDSIDE. PT NOTED WITH RESTLESSNESS AFTER FEW MINUTES OF DECANNULATION. ATIVAN 2MG IVP ADMINISTERED AT 1327 ORDERED Q1H PRN FOR COMFORT MEASURE. AT 1335 PT HAS NO SIGNS OF LIFE. VITAL SIGNS NOT APPRECIATED. PT PRONOUNCE AT 1335 BY CHARGE NURSE GRANT. CALLED VERTICAL LATHE OPERATOR AT TELEPHONE NUMBER AND SPOKE TO ALY AND PER ALY, PT IS NOT A VERTICAL LATHE OPERATOR'S CASE. CALLED [facility] AND SPOKE WITH BRAIN LEE WITH CASE# [id number]. PER BRAIN PT IS NOT A CANDIDATE FOR ORGAN DONATION AND MAY PROCEED WITH POST MORTEM. Addendum: 10/19/22 at 1732 by DAMION MORILLO RN ADDENDUM: PT HAS NO SIGNS OF LIFE. PT NOTED UNRESPONSIVE TO TACTILE STIMULI, NO BREATHING, AND NO PULSE. TELE PARTS FINISHER SHOWS ASYSTOLE. TELE PARTS FINISHER REMOVED AND TELE BOX WAS GIVEN TO CALI SEBASTIAN.
--- NOTE | 2022-10-19 14:35 | NUR ---
RN NOTE PER FAMILY PT'S MORTUARY IS NOT READY AND CURRENTLY IN PROCESS. FAMILY AT BEDSIDE WANT TO SPEND MORE TIME WITH PT AND DO A PRAYER AND REQUESTED TO DO THE POST MORTEM CARE AT A LATER TIME. RESPECTED FAMILY'S REQUEST.
--- NOTE | 2022-10-19 16:58 | NUR ---
RN NOTE POST MORTEM CARE DONE. BODY PICKED UP AT 1650 BY 2 HOSPITAL SECURITY GUARDS AND BROUGHT TO [facility]. PT'S CHART GIVEN TO THE FINE ARTS MODEL,
== END 2022-10-19 13:35 | DRG 720 ==
LOC: ER 08:30 → TELE 13:29
PROVIDERS: ADMIT Student in an Organized Health Care Education/Training Program; ATTEND Nurse Practitioner Acute Care
PROC: 5A1945Z Respiratory Ventilation, 24-96 Consecutive Hours (ICD-10-PCS; principal; 2022-10-16)
DX: A41.9 Sepsis, unspecified organism (principal); R40.3 Persistent vegetative state; I21.A1 Myocardial infarction type 2; G93.1 Anoxic brain damage, not elsewhere classified; R53.2 Functional quadriplegia; E72.20 Disorder of urea cycle metabolism, unspecified; G03.9 Meningitis, unspecified; N17.9 Acute kidney failure, unspecified; E87.1 Hypo-osmolality and hyponatremia; D64.9 Anemia, unspecified; E11.9 Type 2 diabetes mellitus without complications; J96.11 Chronic respiratory failure with hypoxia; N39.0 Urinary tract infection, site not specified; Z99.11 Dependence on respirator [ventilator] status; Z51.5 Encounter for palliative care; Z66 Do not resuscitate; Z20.822 Contact with and (suspected) exposure to COVID-19; V89.2XXS Person injured in unspecified motor-vehicle accident, traffic, sequela; Y95 Nosocomial condition; Z93.0 Tracheostomy status; Z93.1 Gastrostomy status; R13.10 Dysphagia, unspecified; I10 Essential (primary) hypertension; Z79.84 Long term (current) use of oral hypoglycemic drugs; Z79.51 Long term (current) use of inhaled steroids; Z79.899 Other long term (current) drug therapy; Z79.4 Long term (current) use of insulin; E86.0 Dehydration; E87.5 Hyperkalemia; B96.89 Other specified bacterial agents as the cause of diseases classified elsewhere; Z98.890 Other specified postprocedural states; G40.909 Epilepsy, unspecified, not intractable, without status epilepticus; G93.89 Other specified disorders of brain; J32.0 Chronic maxillary sinusitis; Z87.440 Personal history of urinary (tract) infections; Z87.820 Personal history of traumatic brain injury; S06.5XAS Traumatic subdural hemorrhage with loss of consciousness status unknown, sequela; S06.A Traumatic brain compression and herniation; V49.9XXS Car occupant (driver) (passenger) injured in unspecified traffic accident, sequela
CPT/HCPCS: 31720; 36415; 70450-TC; 71045-TC; 80048-TC; 80076-TC; 80202-TC; 81001; 82140-TC; 82962-TC; 83605-TC; 83735-TC; 84100-TC; 84443-TC; 84484-TC; 85025-TC; 85730-TC; 86850-TC; 87040-TC; 87081-TC; 87086-TC; 93307-TC; 94002-TC; 94003-TC; 94799-TC; 95819-TC; 99082-TC; A4223; A4623; A6253; A6403; A7526; C9803; G0378; J1644; J1815; J1953; J2060; J2270; J2543; J3370; J7030; J7040; J7060